=== PATIENT | male | born 1985 | race African-American/Black ===

== ENCOUNTER 2016-11-16 15:25 | Emergency (ER) | payer MEDICAID ==
--- NOTE | 2016-11-16 15:44 | ER Document Report ---
ED Psych Disorder / Suicide <KRYSTIN VALENTIN - Last Filed: 11/17/16 10:01> - General TRAVEL OUTSIDE OF THE [place] IN LAST 30 DAYS: No <JONATAN HEDRICK E - Last Filed: 11/17/16 10:43> - General Chief Complaint: Psych Problem Stated Complaint: SUICIDAL IDEATION Notes: The patient is a 31-year-old male, past medical history type I diabetes, depression, anxiety, presents with 4 days of hallucinations telling him to kill himself. In addition, he is having polyuria and polydipsia today and his BG was "HI". He says he took his Levemir last night, but ran out of his NovoLog yesterday. He has no plan to kill himself and has not taken any additional medications. He denies nausea, vomiting, abdominal pain, chest pain, shortness of breath, rash, dysuria, fevers or homicidal ideation. (JONATAN HEDRICK) - Related Data Allergies/Adverse Reactions: No Known Allergies Allergy (Verified 11/17/16 07:57) Past Medical History - General Information source: Patient - Social History Smoking Status: Current Every Day Smoker Cigarette use (# per day): Yes - 1 pack per day Frequency of alcohol use: None Drug Abuse: Prescription drugs - Percocet Family History: Reviewed & Not Pertinent, DM, Hypertension - Past Medical History Cardiac Medical History: Reports: Hx Hypertension Pulmonary Medical History: Reports: Hx Asthma - as child, Hx COPD Neurological Medical History: Reports: Hx Migraine Endocrine Medical History: Reports: Hx Diabetes Mellitus Type 1, Hx Diabetes Mellitus Type 2 Psychiatric Medical History: Reports: Hx Anxiety, Hx Depression - and anxiety Past Surgical History: Reports: Hx Appendectomy, Hx Oral Surgery - wisdom teeth - Immunizations Hx Diphtheria, Pertussis, Tetanus Vaccination: Yes Hx Pneumococcal Vaccination: 09/16/00 <JONATAN HEDRICK E - Last Filed: 11/17/16 10:43> Review of Systems <KRYSTIN VALENTIN - Last Filed: 11/17/16 10:01> <JONATAN HEDRICK - Last Filed: 11/17/16 10:43> - Review of Systems Notes: REVIEW OF SYSTEMS: CONSTITUTIONAL: -fevers, -chills EENT: -eye pain, -difficulty swallowing, -nasal congestion CARDIOVASCULAR: -chest pain, -syncope. RESPIRATORY: -cough, -SOB GASTROINTESTINAL: -abdominal pain, -nausea, -vomiting, -diarrhea GENITOURINARY: +polyuria, -dysuria, -hematuria MUSCULOSKELETAL: -back pain, -neck pain SKIN: -rash or skin lesions. HEMATOLOGIC: -easy bruising or bleeding. LYMPHATIC: -swollen, enlarged glands. NEUROLOGICAL: -altered mental status or loss of consciousness, -headache, - neurologic symptoms PSYCHIATRIC: -anxiety, -depression, +hallucinations, +SI, -HI ALL OTHER SYSTEMS REVIEWED AND NEGATIVE. (JONATAN HEDRICK) Physical Exam <KRYSTIN VALENTIN - Last Filed: 11/17/16 10:01> <JONATAN HEDRICK - Last Filed: 11/17/16 10:43> - Vital signs Vitals: Temp Pulse Resp BP Pulse Ox 98.9 F 111 H 16 146/78 H 100 11/16/16 15:45 11/16/16 15:45 11/16/16 15:45 11/16/16 15:45 11/16/16 15:45 - Notes Notes: PHYSICAL EXAMINATION: GENERAL: Well-appearing, well-nourished and in no acute distress. HEAD: Atraumatic, normocephalic. EYES: Pupils equal round and reactive to light, extraocular movements intact, sclera anicteric, conjunctiva are normal. ENT: nares patent, oropharynx clear without exudates. Moist mucous membranes. NECK: Normal range of motion, supple without lymphadenopathy LUNGS: Breath sounds clear to auscultation bilaterally and equal. No wheezes rales or rhonchi. HEART: Tachycardia, regular rhythm ABDOMEN: Soft, nontender, normoactive bowel sounds. No guarding, no rebound. No masses appreciated. EXTREMITIES: Normal range of motion, no pitting or edema. No cyanosis. NEUROLOGICAL: Cranial nerves grossly intact. Normal speech, normal gait. Normal sensory, motor, and reflex exams. PSYCH: Normal mood, normal affect. Suicidal thoughts, auditory hallucinations present SKIN: Warm, Dry, normal turgor, no rashes or lesions noted. (JONATAN HEDRICK) Course - Laboratory Result Diagrams: 11/16/16 16:30 11/16/16 18:13 <KRYSTIN VALENTIN - Last Filed: 11/17/16 10:01> - Laboratory Result Diagrams: 11/16/16 16:30 11/16/16 18:13 - EKG Interpretation by Me EKG shows normal: Sinus rhythm, [place], Intervals, QRS Complexes, ST-T Waves Rate: Tachycardia <JONATAN HEDRICK - Last Filed: 11/17/16 10:43> - Re-evaluation Re-evalutation: Patient with hyperglycemia without an anion gap or acidosis. Patient said his sliding scale NovoLog would be 20 units when his sugar is 410. Will also provide his nighttime Levemir dose. Patient is now medically cleared for psychiatric evaluation. (JONATAN HEDRICK) - Vital Signs Vital signs: Temp Pulse Resp BP Pulse Ox 98.9 F 104 H 18 152/90 H 99 11/16/16 15:45 11/17/16 08:49 11/17/16 08:49 11/17/16 08:49 11/17/16 08:49 - Laboratory Laboratory results interpreted by me: 11/16/16 11/16/16 11/16/16 15:35 16:30 18:13 WBC 11.1 H Hgb 11.6 L Hct 36.4 L MCV 75 L MCH 23.6 L MCHC 31.8 L RDW 15.9 H Seg Neutrophils % 90.2 H Lymphocytes % 6.7 L Monocytes % 2.6 L Absolute Neutrophils 10.0 H Sodium 134.4 L Creatinine 1.29 H Glucose 413 H* POC Glucose AST 16 L Total Protein 6.0 L Albumin 3.3 L Urine Protein 100 H Urine Glucose (UA) >=500 H Urine Ketones 20 H Urine Blood SMALL H Salicylates < 1.0 L Acetaminophen < 10 L 11/17/16 11/17/16 01:46 07:00 WBC Hgb Hct MCV MCH MCHC RDW Seg Neutrophils % Lymphocytes % Monocytes % Absolute Neutrophils Sodium Creatinine Glucose POC Glucose 371 H 346 H AST Total Protein Albumin Urine Protein Urine Glucose (UA) Urine Ketones Urine Blood Salicylates Acetaminophen Discharge <KRYSTIN VALENTIN - Last Filed: 11/17/16 10:01> <JONATAN HEDRICK - Last Filed: 11/17/16 10:43> - Discharge Clinical Impression: Hallucination, Hyperglycemia, Suicidal ideation Condition: Stable Disposition: HOME, SELF-CARE Additional Instructions: HYPERGLYCEMIA (HIGH BLOOD SUGAR): You have an abnormally high blood sugar. Not all high blood sugar requires long-term treatment. High blood sugar can be due to medications, , or the stress of illness. (These cases are "borderline diabetes.") If the doctor feels your high blood sugar might resolve with time, you may not require treatment now. It's very important that you follow through, to see if the blood sugar returns to normal levels. Uncontrolled high blood sugar leads to early heart disease, strokes, nerve damage, eye damage, and kidney damage. Call the physician if there is faintness, excess sleepiness, or very rapid breathing. DIABETES: You have an abnormally high blood sugar, suspicious for diabetes. Not all high blood sugar requires long-term treatment. High blood sugar can be due to medications, , or the stress of illness. (These cases are "borderline diabetes.") If the doctor feels your high blood sugar might get better with time, you may not require treatment now. It's very important that you follow through. Uncontrolled high blood sugar leads to early heart disease, strokes, nerve damage, eye damage, and kidney damage. All diabetics should follow a diet designed to control the blood sugar. Overweight diabetics should exercise regularly and lose weight. If this is not sufficient to control the blood sugar, pills or insulin shots are necessary. Younger people who develop diabetes almost always require insulin daily. Home testing of blood sugars or urine sugar is required. Diabetic teaching is available to help you figure insulin doses and monitor the blood sugar. Call the physician if there is faintness, excess sleepiness, or very rapid breathing. If hypoglycemia (LOW blood sugar) develops, symptoms are shakiness, weakness, sweating, and confusion. In this case, you should eat or drink something with sugar at once. INSULIN: Insulin is a natural hormone that lowers blood sugar. Normal blood sugar prevents complications of diabetes. For most diabetics, insulin is the best way to treat the illness. Be sure you know how to measure the insulin correctly. Insulin is measured in "units." There are three types of insulin: N (NPH or long acting), R (regular or short acting), and L (Lente or very long acting). Be sure you are using the right amount of each type. Insulin must be injected into the fat. You can use the abdomen, upper arms , and thighs. Select a different injection site every time. Wipe the site with alcohol before injecting. When first starting insulin, some adjusting of the insulin dose is necessary. Keep a record of each insulin dose and time of injection, and of the blood sugar and the time you test it. Sometimes insulin can make the blood sugar too low. If you become dizzy, sweaty, shaky, or confused, you may be having a hypoglycemic episode. Immediately use juice or some other sweet food. Call the doctor if the symptoms don't go away. I have provided you with a prescription for your NovoLog flexpen. FOLLOW-UP CARE: If you have been referred to a physician for follow-up care, call the physician s office for an appointment as you were instructed or within the next two days. If you experience worsening or a significant change in your symptoms, notify the physician immediately or return to the Emergency Department at any time for re-evaluation. You should follow-up with your primary care provider, Dr. Salguero, Saturday morning in his office. DEPRESSION: Your evaluation reveals that you have mental depression. While symptoms may be vague, they often include disturbance of sleep, fatigue, loss of appetite , and general loss of interest in life. While depression may be a side effect of drugs, or a reaction to a major change in your life, many cases have no known cause. If depression is acute, and related to a major loss in your life, you can expect it to clear completely with time. If you have been depressed a long time , are prone to repeated bouts of depression or low mood, or have been thinking of suicide, get help. Depression can be treated with anti-depressant medication and counselling. Long-term depression will often take a few weeks to clear, even with appropriate medication. Follow-up care is important. SUICIDAL IDEATION: Suicidal ideation is a common medical term for thoughts about suicide, which may be as detailed as a formulated plan, without the suicidal act itself. Although most people who undergo suicidal ideation do not commit suicide, some go on to make suicide attempts. The range of suicidal ideation varies greatly from fleeting to detailed planning, role playing, and unsuccessful attempts. While thoughts about suicide are common, most people do not carry out serious actions to commit suicide. Based upon your evaluation and discussion with you, we do not believe you are currently at risk to act upon your thoughts of suicide. You have agreed to return to the Emergency Department, at any time , if you feel inclined to act upon your suicidal thoughts. FOLLOW-UP CARE: If you have been referred to a physician for follow-up care, call the physician s office for an appointment as you were instructed or within the next two days. If you experience worsening or a significant change in your symptoms, notify the physician immediately or return to the Emergency Department at any time for re-evaluation. You have been evaluated by our mental health personnel and they feel that she can be discharged and followed up at your mental health providers office at [facility] Saturday morning. Prescriptions: Insulin Aspart [Novolog Flexpen] 10 unit SUBCUT .SLD SCALE #1 pen Referrals: MITCHELL SALGUERO MD [Primary Care Provider] - 11/19/16 [facility] [Provider Group] - 11/19/16
[2016-11-16] MEDS ORDERED: NORMAL SALINE 1000 ML 1,000 ML IV PRN (15:45)
[2016-11-16 17:04] LABS: ABSOLUTE BASOPHILS # (AUTO) 0.1 10^3/uL (0.0-0.2); ABSOLUTE LYMPHOCYTES (AUTO) 0.7 10^3/uL (0.5-4.7); ABSOLUTE MONOCYTES (AUTO) 0.3 10^3/uL (0.1-1.4); BASOPHILS % (AUTO) 0.5 % (0-2); HEMATOCRIT 36.4 % (37.9-51.0); HEMOGLOBIN 11.6 g/dL (13.5-17.0); HGB HCT DIFFERENCE -1.6; LYMPHOCYTES % (AUTO) 6.7 % (13-45); MEAN CORPUSCULAR HEMOGLOBIN 23.6 pg (27.0-33.4); MEAN CORPUSCULAR HGB CONC 31.8 g/dL (32.0-36.0); MEAN CORPUSCULAR VOLUME 75 fl (80-97); MONOCYTES % (AUTO) 2.6 % (3-13); RED BLOOD COUNT 4.89 10^6/uL (4.35-5.55); RED CELL DISTRIBUTION WIDTH 15.9 % (11.5-14.0); SEGMENTED NEUTROPHILS % (AUTO) 90.2 % (42-78); WHITE BLOOD COUNT 11.1 10^3/uL (4.0-10.5)
[2016-11-16 17:09] LABS: APPEARANCE,URINE CLEAR; BILIRUBIN,URINE NEGATIVE (NEGATIVE); GLUCOSE, URINE >=500 mg/dL (NEGATIVE); KETONES,URINE 20 mg/dL (NEGATIVE); LEUKOCYTE ESTERASE,URINE NEGATIVE (NEGATIVE); NITRITE,URINE NEGATIVE (NEGATIVE); PROTEIN,URINE 100 mg/dL (NEGATIVE); UROBILINOGEN,URINE NEGATIVE mg/dL (<2.0)
[2016-11-16 17:27] LABS: URINE BARBITURATES SCREEN NEGATIVE; URINE METHADONE SCREEN NEGATIVE; URINE OPIATES LOW NEGATIVE; URINE PHENCYCLIDINE SCREEN NEGATIVE
[2016-11-16 18:29] LABS: VENOUS BLOOD BASE EXCESS -1.7 mmol/L; VENOUS BLOOD HCO3 23.7 mmol/L (20-32); VENOUS BLOOD PH 7.36 (7.30-7.42)
[2016-11-16 18:43] LABS: ALANINE AMINOTRANSFERASE 27 U/L (21-72); ALBUMIN 3.3 g/dL (3.5-5.0); ALKALINE PHOSPHATASE 84 U/L (38-126); ANION GAP 11 (5-19); ASPARTATE AMINO TRANSFERASE 16 U/L (17-59); BILIRUBIN,TOTAL 0.5 mg/dL (0.2-1.3); BLOOD UREA NITROGEN 16 mg/dL (7-20); CALCIUM 9.1 mg/dL (8.4-10.2); CARBON DIOXIDE 24 mmol/L (22-30); CHLORIDE 99 mmol/L (98-107); CREATININE RESULT 1.29 mg/dL (0.52-1.25); POTASSIUM 4.5 mmol/L (3.6-5.0); SODIUM 134.4 mmol/L (137-145)
[2016-11-16 18:48] LABS: ALCOHOL < 10 mg/dL (NONE DETECTED)
[2016-11-16 18:54] LABS: GLUCOSE 413 mg/dL (75-110)
--- NOTE | 2016-11-16 18:55 | EKG REPORT ---
SEVERITY:- ABNORMAL ECG - SINUS TACHYCARDIA PROBABLE LEFT ATRIAL ABNORMALITY BORDERLINE INFERIOR Q WAVES BORDERLINE PROLONGED QT INTERVAL : Confirmed by: Brayden Silverio MD 16-Nov-2016 18:54:09
[2016-11-16] MEDS ORDERED: INSULIN LISPRO 100 UNIT/ML 3 ML VIAL SUBCUT ONE (19:01)
[2016-11-16] MEDS ORDERED: INSULIN DETEMIR 100 UNIT/ML 3 ML PEN SUBCUT SCH (22:00)
[2016-11-17] MEDS ORDERED: ACETAMINOPHEN 325 MG TABLET PO ONE (03:36)
[2016-11-17 08:50] VITALS: BP 152/90
[2016-11-17] MEDS ORDERED: ACETAMINOPHEN 325 MG TABLET PO PRN (09:37)
--- NOTE | 2016-11-17 09:54 | ER Document Report ---
Doctor's Note Notes: 11/17/16 09:53 Rounds: Chart reviewed and patient interviewed. Patient says he's been having some thoughts of harming himself. Vital signs are all normal. Lab studies show a white count of 11,100 with 90% segs neutrophils. Blood sugars been running in the 3 and 400s. Patient says that he is out of his NovoLog for a couple of days which she is supposed to take 10 mg before meals and as needed by sliding scale. He has his Levemir for his nighttime insulin dose. Vital signs are all normal. Patient appears to be medically stable for transfer or discharge. Bladimir Churchill M.D.
[2016-11-17] MEDS ORDERED: INSULIN LISPRO 100 UNIT/ML 3 ML VIAL SUBCUT SCH (11:00)
--- NOTE | 2016-11-17 12:03 | PSYCHOLOGICAL NOTE ---
Psych Note - Psych Note Psych Note: The patient is a 31-year-old male, past medical history type I diabetes, depression, anxiety, presents with 4 days of hallucinations telling him to kill himself. At this time patient will possibly be admitted for medical concerns, evaluation will occur once medical conditions are addressed.
--- NOTE | 2016-11-17 12:16 | PSYCHOLOGICAL NOTE ---
Psych Note - Psych Note Psych Note: The patient is a 31-year-old male, past medical history type I diabetes, depression, anxiety, presents with 4 days of hallucinations telling him to kill himself. Patient states that he is not feeling good stating he has difficulty breathing, thinks that sugar is high, his legs and feet her and has a headache. When asked how patient is feeling with his emotions he stated that he is depressed and has anxiety. Patient states he's seen at [facility]. He disclosed that when he has anxiety he can't breathe and is sad when he is depressed; he identified that he's been feeling like this for a couple days now. He continued to state that he's been hearing voices to "hurt myself" and hears them "all the time," inside his head, and does not recognize the voice. He states this has been going on nonstop for the last few days. Patient states he needs medication. Patient is alert and orientated to person place time and circumstance. Mood is euthymic with congruent affect. Patient states he is not suicidal but hears voices telling him to kill himself. Patient denies homicidal ideation. Patient endorses auditory hallucinations; clinician notes description of auditory hallucinations is not congruent with known manifestation of auditory hallucinations. No delusions are noted. Thought processes logical organized and linear. Thought content is surrounding needing medication. Conversational speech was within normal rate tone and prosody. Eye contact was fair. Intellectual abilities appear to be within average range. Attention and concentration are good. Insight, judgment, impulse control are poor. 311(F32.9) unspecified depressive disorder per history provided by patient 300.00 (F41.9) unspecified anxiety disorder per history provided by patient Impression\\plan: Patient is psychiatrically cleared for discharge. Patient denies suicidal ideation however states he is hearing voices to kill himself. Clinician notes patient is not observed to be responding to internal stimuli, has no difficulties carrying on a conversation, and never is distracted or pausing during talking. Patient identifies hearing the voices "all the time" and is unable to identify the voice; this is not congruent with known in manifestations of auditory hallucinations. Patient requested medication on multiple times to staff and it was noted patient came in with 2 empty bottles of oxycodone. Patient was provided substance abuse resources. Patient is encouraged to follow-up with mental health provider [facility]. Dr. Waller was consulted on the care and management of this patient; tending physician is in agreement with recommendations and disposition.
== END 2016-11-17 11:21 | disposition home or self-care (01) ==
LOC: ER 15:25
DX: R45.851 Suicidal ideations (principal); E10.65 Type 1 diabetes mellitus with hyperglycemia; R44.0 Auditory hallucinations; R00.0 Tachycardia, unspecified; F17.210 Nicotine dependence, cigarettes, uncomplicated; I10 Essential (primary) hypertension; J44.9 Chronic obstructive pulmonary disease, unspecified; R51 Headache; F32.9 Major depressive disorder, single episode, unspecified; F41.9 Anxiety disorder, unspecified; Z79.4 Long term (current) use of insulin
CPT/HCPCS: 93005; 99285; 96360; 96361; 36415; 82962; 80307 ×4; 85025; 80053; 81001; 82803; 93010; J3490; J1815 ×2; J7030

== ENCOUNTER 2016-11-18 10:09 | Inpatient (IN) | payer MEDICAID ==
[2016-11-18] MEDS ORDERED: ONDANSETRON HCL INJ/PF 4 MG/2 ML SDV IV ONE (10:12)
--- NOTE | 2016-11-18 10:18 | ER Document Report ---
ED General - General Stated Complaint: BLOOD SUGAR ISSUES Mode of Arrival: Ambulatory Information source: Patient Notes: 31-year-old diabetic male on NovoLog and Levemir her last appointment last night and took 20 of NovoLog prior to arrival presents with high blood sugar. Is noted that the patient was here past 2 days for suicidal ideation, blood sugars were noted to be in the 3 to 400s. Patient admits nausea vomiting TRAVEL OUTSIDE OF THE [place] IN LAST 30 DAYS: No - HPI Onset: Yesterday Onset/Duration: Persistent Quality of pain: Achy Severity: Mild Pain Level: 1 Associated symptoms: Nausea, Vomiting Exacerbated by: Denies Relieved by: Denies Similar symptoms previously: Yes Recently seen / treated by doctor: Yes - Related Data Allergies/Adverse Reactions: No Known Allergies Allergy (Verified 11/17/16 07:57) Past Medical History - Social History Smoking Status: Never Smoker Cigarette use (# per day): No Chew tobacco use (# tins/day): No Smoking Education Provided: No Family History: Reviewed & Not Pertinent, DM, Hypertension - Past Medical History Cardiac Medical History: Reports: Hx Hypertension Pulmonary Medical History: Reports: Hx Asthma - as child, Hx COPD Neurological Medical History: Reports: Hx Migraine Endocrine Medical History: Reports: Hx Diabetes Mellitus Type 1, Hx Diabetes Mellitus Type 2 Renal/ Medical History: Denies: Hx Peritoneal Dialysis Psychiatric Medical History: Reports: Hx Anxiety, Hx Depression - and anxiety Past Surgical History: Reports: Hx Appendectomy, Hx Oral Surgery - wisdom teeth - Immunizations Hx Diphtheria, Pertussis, Tetanus Vaccination: Yes Hx Pneumococcal Vaccination: 09/16/00 Review of Systems - Review of Systems Notes: PHYSICAL EXAMINATION: GENERAL: Well-appearing, well-nourished and in no acute distress. HEAD: Atraumatic, normocephalic. EYES: Pupils equal round and reactive to light, extraocular movements intact, sclera anicteric, conjunctiva are normal. ENT: Nares patent, oropharynx clear without exudates. Moist mucous membranes. NECK: Normal range of motion, supple without lymphadenopathy LUNGS: Breath sounds clear to auscultation bilaterally and equal. No wheezes rales or rhonchi. HEART: Tachycardic ABDOMEN: Soft, nontender, nondistended abdomen. No guarding, no rebound. No masses appreciated. Musculoskeletal: Normal range of motion, no pitting or edema. No cyanosis. NEUROLOGICAL: Cranial nerves grossly intact. Normal speech, normal gait. Normal sensory, motor exams PSYCH: Normal mood, normal affect. SKIN: Warm, Dry, normal turgor, no rashes or lesions noted. Physical Exam - Vital signs Vitals: Resp BP Pulse Ox 18 170/97 H 99 11/18/16 10:13 11/18/16 10:13 11/18/16 10:13 Course - Re-evaluation Re-evalutation: 11/18/16 10:45 Patient last in DKA in August, lab work pending patient will be given IV fluids nausea control - Vital Signs Vital signs: Temp Pulse Resp BP Pulse Ox 98.8 F 20 170/97 H 98 11/18/16 10:37 11/18/16 10:14 11/18/16 10:13 11/18/16 10:14 - Laboratory Result Diagrams: 11/18/16 10:15 11/18/16 10:15 Laboratory results interpreted by me: 11/18/16 11/18/16 11/18/16 10:15 10:15 10:34 WBC 12.1 H Hgb 11.1 L Hct 35.5 L MCV 76 L MCH 23.8 L MCHC 31.2 L RDW 15.7 H Seg Neutrophils % 90.6 H Lymphocytes % 5.3 L Monocytes % 2.9 L Absolute Neutrophils 11.0 H Sodium 132.3 L Potassium 5.8 H Chloride 93 L Carbon Dioxide 21 L BUN 26 H Creatinine 1.38 H Glucose 832 H* Urine Protein 100 H Urine Glucose (UA) >=500 H Urine Ketones 20 H Critical Care Note - Critical Care Note Total time excluding time spent on procedures (mins): 34 Comments: minutes of critical care time spent in direct contact evaluating and reevaluating the patient, treating symptoms, reviewing labs and studies and speaking with family and consultants excluding any procedures Discharge - Discharge Clinical Impression: ARF (acute renal failure) Qualifiers: Acute renal failure type: unspecified Qualified Code(s): N17.9 - Acute kidney failure, unspecified Diabetic ketoacidosis Qualifiers: Diabetes mellitus type: type 1 Diabetes mellitus complication detail: with coma Qualified Code(s): E10.11 - Type 1 diabetes mellitus with ketoacidosis with coma Condition: Fair Disposition: ADMITTED INPATIENT Admitting Provider: [facility] Unit Admitted: [facility]
[2016-11-18] MEDS: NORMAL SALINE 1000 ML 1,000 ML IV PRN ×2 (10:28→11:13)
[2016-11-18 10:33] LABS: ABSOLUTE BASOPHILS # (AUTO) 0.1 10^3/uL (0.0-0.2); ABSOLUTE LYMPHOCYTES (AUTO) 0.6 10^3/uL (0.5-4.7); ABSOLUTE MONOCYTES (AUTO) 0.3 10^3/uL (0.1-1.4); BASOPHILS % (AUTO) 1.1 % (0-2); EOSINOPHILS % (AUTO) 0.1 % (0-6); HEMATOCRIT 35.5 % (37.9-51.0); HEMOGLOBIN 11.1 g/dL (13.5-17.0); HGB HCT DIFFERENCE -2.2; LYMPHOCYTES % (AUTO) 5.3 % (13-45); MEAN CORPUSCULAR HEMOGLOBIN 23.8 pg (27.0-33.4); MEAN CORPUSCULAR HGB CONC 31.2 g/dL (32.0-36.0); MEAN CORPUSCULAR VOLUME 76 fl (80-97); MONOCYTES % (AUTO) 2.9 % (3-13); RED BLOOD COUNT 4.67 10^6/uL (4.35-5.55); RED CELL DISTRIBUTION WIDTH 15.7 % (11.5-14.0); SEGMENTED NEUTROPHILS % (AUTO) 90.6 % (42-78); VENOUS BLOOD BASE EXCESS -4.3 mmol/L; VENOUS BLOOD HCO3 20.3 mmol/L (20-32); VENOUS BLOOD PCO2 35.7 mmHg (35-63); VENOUS BLOOD PH 7.37 (7.30-7.42); WHITE BLOOD COUNT 12.1 10^3/uL (4.0-10.5)
[2016-11-18 10:52] LABS: ALANINE AMINOTRANSFERASE 29 U/L (21-72); ALBUMIN 3.7 g/dL (3.5-5.0); ALKALINE PHOSPHATASE 93 U/L (38-126); ANION GAP 18 (5-19); ASPARTATE AMINO TRANSFERASE 17 U/L (17-59); BILIRUBIN,TOTAL 0.6 mg/dL (0.2-1.3); BLOOD UREA NITROGEN 26 mg/dL (7-20); CALCIUM 9.6 mg/dL (8.4-10.2); CARBON DIOXIDE 21 mmol/L (22-30); CHLORIDE 93 mmol/L (98-107); CREATININE RESULT 1.38 mg/dL (0.52-1.25); POTASSIUM 5.8 mmol/L (3.6-5.0); SODIUM 132.3 mmol/L (137-145); TOTAL PROTEIN 6.3 g/dL (6.3-8.2)
[2016-11-18 10:58] LABS: APPEARANCE,URINE CLEAR; BILIRUBIN,URINE NEGATIVE (NEGATIVE); GLUCOSE, URINE >=500 mg/dL (NEGATIVE); KETONES,URINE 20 mg/dL (NEGATIVE); LEUKOCYTE ESTERASE,URINE NEGATIVE (NEGATIVE); NITRITE,URINE NEGATIVE (NEGATIVE); PROTEIN,URINE 100 mg/dL (NEGATIVE); URINE SPECIFIC GRAVITY 1.024; UROBILINOGEN,URINE NEGATIVE mg/dL (<2.0)
[2016-11-18] MEDS ORDERED: INSULIN REG, HUMAN 100 UNIT/ML 3 ML VIAL (PYX) IV ONE (11:05)
[2016-11-18 11:06] LABS: GLUCOSE 832 mg/dL (75-110)
[2016-11-18] MEDS ORDERED: NORMAL SALINE 1000 ML 1,000 ML IV PRN (11:06)
[2016-11-18] MEDS ORDERED: DEXTROSE 50%-WATER 25 GM/50 ML DISP.SYRIN IV PRN ×2 (13:31)
[2016-11-18] MEDS ORDERED: NORMAL SALINE 100 ML with INSULIN REGULAR, HUMAN 100 UNIT IV PRN ×2 (13:31)
[2016-11-18] MEDS ORDERED: DEXTROSE 40% GEL 15 GM TUBE PO PRN ×2 (13:31)
[2016-11-18] MEDS ORDERED: GLUCAGON,HUMAN RECOMB 1 MG INJ IM PRN (13:31)
[2016-11-18 14:00] LABS: ARTERIAL BLOOD BASE EXCESS -1.1 mmol/L; ARTERIAL BLOOD O2 SATURATION 97.7 % (94-98)
[2016-11-18 14:11] LABS: PROTHROMBIN TIME 12.6 SEC (11.4-15.4)
[2016-11-18 14:16] LABS: LIPASE 176.3 U/L (23-300); MAGNESIUM 1.9 mg/dL (1.6-2.3)
[2016-11-18 14:48] LABS: THYROID STIMULATING HORMONE 0.03 uIU/mL (0.47-4.68)
[2016-11-18 15:08] LABS: ANION GAP 13 (5-19); BLOOD UREA NITROGEN 20 mg/dL (7-20); CARBON DIOXIDE 22 mmol/L (22-30); CHLORIDE 105 mmol/L (98-107); CREATINE KINASE 81 U/L (55-170); CREATININE RESULT 1.17 mg/dL (0.52-1.25); POTASSIUM 4.9 mmol/L (3.6-5.0); SODIUM 139.6 mmol/L (137-145)
[2016-11-18 15:23] LABS: GLUCOSE 432 mg/dL (75-110)
[2016-11-18 15:28] LABS: CREATINE KINASE MB 0.43 ng/mL (<4.55)
[2016-11-18 15:32] LABS: TROPONIN I < 0.012 ng/mL
[2016-11-18] MEDS ORDERED: INSULIN REG, HUMAN 100 UNIT/ML 3 ML VIAL (PYX) ONE (15:32)
[2016-11-18 15:39] LABS: URINE BARBITURATES SCREEN NEGATIVE; URINE METHADONE SCREEN NEGATIVE; URINE OPIATES LOW NEGATIVE; URINE PHENCYCLIDINE SCREEN NEGATIVE
--- NOTE | 2016-11-18 16:13 | PDOC H&P ---
History of Present Illness Admission Date/PCP: 11/18/16 13:26 MITCHELL SALGUERO MD History of Present Illness: LENA SCHULZ is a 31 year old male, patient is extremely noncompliant diabetic care the last time he was in this hospital he presented in DKA on on that admission he left AMA, was in the emergency room twice this week for suicidal ideation, is not present with hyperglycemia uncontrolled the serum glucose was 800 is not in DKA, the pH was 7.39. Past Medical History Cardiac Medical History: Reports: Hypertension Pulmonary Medical History: Reports: Asthma - as child, Chronic Obstructive Pulmonary Disease (COPD) Neurological Medical History: Reports: Migraine Endocrine Medical History: Reports: Diabetes Mellitus Type 1 Psychiatric Medical History: Reports: Depression - and anxiety Hematology: Denies: Anemia Past Surgical History Past Surgical History: Reports: Appendectomy Social History Smoking Status: Never Smoker Frequency of Alcohol Use: Occasional Hx Recreational Drug Use: No Hx Prescription Drug Abuse: No Family History Family History: Reviewed & Not Pertinent, DM, Hypertension Parental Family History Reviewed: Yes Children Family History Reviewed: Yes Sibling(s) Family History Reviewed.: Yes Medication/Allergy Home Medications: Hydroxyzine Pamoate [Vistaril 50 mg Capsule] 50 mg PO Q8H 12/20/14 Oxycodone HCl 1 tab PO TID 09/03/15 Trazodone HCl 100 mg PO QHS PRN 09/03/15 Amlodipine Besylate 5 mg PO DAILY 09/10/16 Atenolol 25 mg PO DAILY 09/10/16 Gabapentin 300 mg PO TID 09/10/16 Insulin Aspart [Novolog Flexpen] 10 unit SUBCUT .SLD SCALE #1 pen 11/20/16 Insulin Detemir [Levemir Flextouch] 35 unit SQ QHS #3 11/20/16 Allergies/Adverse Reactions: No Known Allergies Allergy (Verified 11/17/16 07:57) Review of Systems Constitutional: PRESENT: fatigue Eyes: ABSENT: visual disturbances Ears: ABSENT: hearing changes Cardiovascular: ABSENT: chest pain, dyspnea on exertion, edema, orthropnea, palpitations Respiratory: ABSENT: cough, hemoptysis Gastrointestinal: ABSENT: abdominal pain, constipation, diarrhea, hematemesis, hematochezia, nausea, vomiting Genitourinary: ABSENT: dysuria, hematuria Musculoskeletal: ABSENT: joint swelling Integumentary: ABSENT: rash, wounds Neurological: ABSENT: abnormal gait, abnormal speech, confusion, dizziness, focal weakness, syncope Psychiatric: PRESENT: suicidal ideation Endocrine: PRESENT: polydipsia, polyuria Hematologic/Lymphatic: ABSENT: easy bleeding, easy bruising, lymphadenopathy Physical Exam Vital Signs: Temp Pulse Resp BP Pulse Ox 98.8 F 19 149/82 H 100 11/18/16 10:37 11/18/16 14:01 11/18/16 15:01 11/18/16 15:01 General appearance: PRESENT: no acute distress, well-developed, well-nourished Head exam: PRESENT: atraumatic, normocephalic Eye exam: PRESENT: conjunctiva pink, EOMI, PERRLA Ear exam: PRESENT: normal external ear exam Mouth exam: PRESENT: moist, tongue midline Neck exam: PRESENT: full ROM Respiratory exam: PRESENT: clear to auscultation juan ramon Cardiovascular exam: PRESENT: RRR, +S1, +S2 Vascular exam: PRESENT: normal capillary refill GI/Abdominal exam: PRESENT: normal bowel sounds, soft Rectal exam: PRESENT: deferred Neurological exam: PRESENT: alert, awake, oriented to person, oriented to place , oriented to time, oriented to situation, CN II-XII grossly intact Psychiatric exam: PRESENT: appropriate affect, normal mood Skin exam: PRESENT: dry, intact, warm Results Laboratory Results: 11/18/16 14:23 11/18/16 11/18/16 14:23 14:23 Sodium 139.6 Potassium 4.9 Chloride 105 Carbon Dioxide 22 Anion Gap 13 BUN 20 Creatinine 1.17 Est GFR ( Amer) > 60 Est GFR (Non-Af Amer) > 60 Glucose 432 H* Calcium 9.0 Ammonia < 8.7 L 11/18/16 11/18/16 14:23 14:23 Creatine Kinase 81 CK-MB (CK-2) 0.43 Troponin I < 0.012 Assessment & Plan - Diagnosis (1) Diabetes mellitus type 1 with hyperosmolarity Qualifiers: Diabetes mellitus complication detail: without coma Qualified Code(s ): E10.69 - Type 1 diabetes mellitus with other specified complication; E10.65 - Type 1 diabetes mellitus with hyperglycemia Is this a current diagnosis for this admission?: YesPlan: Patient is admitted to the hospital is not in DKA at this time
[2016-11-18] MEDS ORDERED: TRAZODONE HCL 50 MG TABLET PO PRN (19:11)
[2016-11-18] MEDS ORDERED: GABAPENTIN 300 MG CAPSULE PO ONE (20:30)
[2016-11-18] MEDS ORDERED: OXYCODONE HCL IR 5 MG TABLET PO ONE (20:30)
[2016-11-18 23:12] LABS: ANION GAP 8 (5-19); BLOOD UREA NITROGEN 18 mg/dL (7-20); CALCIUM 9.6 mg/dL (8.4-10.2); CARBON DIOXIDE 26 mmol/L (22-30); CHLORIDE 108 mmol/L (98-107); CREATININE RESULT 1.24 mg/dL (0.52-1.25); GLUCOSE 112 mg/dL (75-110); POTASSIUM 4.1 mmol/L (3.6-5.0); SODIUM 142.2 mmol/L (137-145)
[2016-11-18 23:20] LABS: CREATINE KINASE MB 0.41 ng/mL (<4.55)
[2016-11-18 23:25] LABS: TROPONIN I < 0.012 ng/mL
[2016-11-19 05:23] LABS: ABSOLUTE BASOPHILS # (AUTO) 0.1 10^3/uL (0.0-0.2); ABSOLUTE EOSINOPHILS # (AUTO) 0.2 10^3/uL (0.0-0.6); ABSOLUTE LYMPHOCYTES (AUTO) 2.8 10^3/uL (0.5-4.7); ABSOLUTE NEUT (AUTO) 8.1 10^3/uL (1.7-8.2); BASOPHILS % (AUTO) 0.5 % (0-2); EOSINOPHILS % (AUTO) 1.4 % (0-6); HEMATOCRIT 31.7 % (37.9-51.0); HEMOGLOBIN 9.9 g/dL (13.5-17.0); MEAN CORPUSCULAR HEMOGLOBIN 23.2 pg (27.0-33.4); MEAN CORPUSCULAR HGB CONC 31.2 g/dL (32.0-36.0); MEAN CORPUSCULAR VOLUME 74 fl (80-97); MONOCYTES % (AUTO) 7.9 % (3-13); RED BLOOD COUNT 4.27 10^6/uL (4.35-5.55); RED CELL DISTRIBUTION WIDTH 15.7 % (11.5-14.0); SEGMENTED NEUTROPHILS % (AUTO) 67.2 % (42-78); WHITE BLOOD COUNT 12.1 10^3/uL (4.0-10.5)
[2016-11-19 05:39] LABS: ALANINE AMINOTRANSFERASE 23 U/L (21-72); ALKALINE PHOSPHATASE 72 U/L (38-126); ANION GAP 9 (5-19); ASPARTATE AMINO TRANSFERASE 13 U/L (17-59); BILIRUBIN,TOTAL 0.4 mg/dL (0.2-1.3); BLOOD UREA NITROGEN 14 mg/dL (7-20); CARBON DIOXIDE 25 mmol/L (22-30); CHLORIDE 107 mmol/L (98-107); CHOLESTEROL 212.12 mg/dL (0-200); CREATINE KINASE 69 U/L (55-170); CREATININE RESULT 1.16 mg/dL (0.52-1.25); Direct HDL 41 mg/dL (>40); GLUCOSE 129 mg/dL (75-110); POTASSIUM 4.1 mmol/L (3.6-5.0); SODIUM 140.9 mmol/L (137-145); TOTAL PROTEIN 5.7 g/dL (6.3-8.2); TRIGLYCERIDES 123 mg/dL (<150)
[2016-11-19 05:50] LABS: CREATINE KINASE MB 0.39 ng/mL (<4.55); DIRECT LDL 104 mg/dL (<100)
[2016-11-19 05:51] LABS: TROPONIN I < 0.012 ng/mL
[2016-11-19] MEDS ORDERED: INSULIN REG, HUMAN 100 UNIT/ML 3 ML VIAL (PYX) ONE (06:16)
[2016-11-19] MEDS ORDERED: DEXTROSE 40% GEL 15 GM TUBE PO PRN ×2 (08:06)
[2016-11-19] MEDS ORDERED: INSULIN REG, HUMAN 100 UNIT/ML 3 ML VIAL (PYX) SUBCUT PRN (08:06)
[2016-11-19] MEDS ORDERED: DEXTROSE 50%-WATER 25 GM/50 ML DISP.SYRIN IV PRN ×2 (08:06)
[2016-11-19] MEDS ORDERED: GLUCAGON,HUMAN RECOMB 1 MG INJ IM PRN (08:06)
[2016-11-19] MEDS ORDERED: (PENDING PHARMACY ID) (Insulin Aspart [Novolog Flexpen] 10 UNIT) SUBCUT SCH (08:15)
[2016-11-19] MEDS: ENOXAPARIN SODIUM INJ 40 MG/0.4 ML DISP.SYRIN SUBCUT SCH (08:21)
[2016-11-19] MEDS ORDERED: MORPHINE SULFATE 10 MG/ML INJ IV PRN (08:30)
[2016-11-19] MEDS ORDERED: TRAZODONE HCL 50 MG TABLET PO PRN (08:47)
[2016-11-19] MEDS ORDERED: INSULIN DETEMIR 100 UNIT/ML 3 ML PEN SUBCUT ONE (09:00)
--- NOTE | 2016-11-19 09:13 | PDOC PROGRESS REPORT ---
Subjective Progress Note for:: 11/19/16 Subjective:: This is a 31-year-old male with a very noncompliance basically admitted because of elevated blood sugar not really in the DKA and patient was put on insulin drips and currently doing well. Patient still having ongoing pain problems and patient is currently see a pain management. Patient's denied any chest pain denied any shortness of the breath patient still complains some abdominal discomfort. Physical Exam Vital Signs: Temp Pulse Resp BP Pulse Ox 98.8 F 73 18 155/89 H 100 11/19/16 07:22 11/19/16 07:22 11/19/16 07:22 11/19/16 07:22 11/19/16 07:22 Intake & Output 11/18/16 11/19/16 11/20/16 06:59 06:59 06:59 Intake Total 1703 Output Total 0 Balance 1703 Weight 93.2 kg General appearance: PRESENT: no acute distress, well-developed, well-nourished Head exam: PRESENT: atraumatic, normocephalic Eye exam: PRESENT: conjunctiva pink, EOMI, PERRLA. ABSENT: scleral icterus Ear exam: PRESENT: normal external ear exam Mouth exam: PRESENT: moist, tongue midline Neck exam: PRESENT: full ROM. ABSENT: carotid bruit, JVD, lymphadenopathy, thyromegaly Respiratory exam: PRESENT: clear to auscultation juan ramon Cardiovascular exam: PRESENT: RRR. ABSENT: diastolic murmur, rubs, systolic murmur Pulses: PRESENT: normal dorsalis pedis pul, +2 pedal pulses bilateral Vascular exam: PRESENT: normal capillary refill GI/Abdominal exam: PRESENT: normal bowel sounds, soft. ABSENT: distended, guarding, mass, organolmegaly, rebound, tenderness Rectal exam: PRESENT: deferred Neurological exam: PRESENT: alert, awake, oriented to person, oriented to place , oriented to time, oriented to situation, CN II-XII grossly intact. ABSENT: motor sensory deficit Psychiatric exam: PRESENT: appropriate affect, normal mood. ABSENT: homicidal ideation, suicidal ideation Skin exam: PRESENT: dry, intact, warm. ABSENT: cyanosis, rash Results Laboratory Results: 11/19/16 04:40 11/19/16 04:40 11/18/16 11/18/16 11/18/16 14:23 14:23 17:25 WBC RBC Hgb Hct MCV MCH MCHC RDW Plt Count Seg Neutrophils % Lymphocytes % Monocytes % Eosinophils % Basophils % Absolute Neutrophils Absolute Lymphocytes Absolute Monocytes Absolute Eosinophils Absolute Basophils Sodium 139.6 Potassium 4.9 Chloride 105 Carbon Dioxide 22 Anion Gap 13 BUN 20 Creatinine 1.17 Est GFR ( Amer) > 60 Est GFR (Non-Af Amer) > 60 Glucose 432 H* 446 H* Calcium 9.0 Total Bilirubin AST ALT Alkaline Phosphatase Ammonia < 8.7 L Total Protein Albumin Triglycerides Cholesterol LDL Cholesterol Direct VLDL Cholesterol HDL Cholesterol 11/18/16 11/18/16 11/19/16 18:25 22:41 04:40 WBC RBC Hgb Hct MCV MCH MCHC RDW Plt Count Seg Neutrophils % Lymphocytes % Monocytes % Eosinophils % Basophils % Absolute Neutrophils Absolute Lymphocytes Absolute Monocytes Absolute Eosinophils Absolute Basophils Sodium Cancelled 142.2 140.9 Potassium Cancelled 4.1 4.1 Chloride Cancelled 108 H 107 Carbon Dioxide Cancelled 26 25 Anion Gap Cancelled 8 9 BUN Cancelled 18 14 Creatinine Cancelled 1.24 1.16 Est GFR ( Amer) Cancelled > 60 > 60 Est GFR (Non-Af Amer) Cancelled > 60 > 60 Glucose Cancelled 112 H 129 H Calcium Cancelled 9.6 9.0 Total Bilirubin 0.4 AST 13 L ALT 23 Alkaline Phosphatase 72 Ammonia Total Protein 5.7 L Albumin 3.0 L Triglycerides 123 Cholesterol 212.12 H LDL Cholesterol Direct 104 H VLDL Cholesterol 25.0 HDL Cholesterol 41 11/19/16 04:40 WBC 12.1 H RBC 4.27 L Hgb 9.9 L Hct 31.7 L MCV 74 L MCH 23.2 L MCHC 31.2 L RDW 15.7 H Plt Count 286 Seg Neutrophils % 67.2 Lymphocytes % 23.0 Monocytes % 7.9 Eosinophils % 1.4 Basophils % 0.5 Absolute Neutrophils 8.1 Absolute Lymphocytes 2.8 Absolute Monocytes 1.0 Absolute Eosinophils 0.2 Absolute Basophils 0.1 Sodium Potassium Chloride Carbon Dioxide Anion Gap BUN Creatinine Est GFR ( Amer) Est GFR (Non-Af Amer) Glucose Calcium Total Bilirubin AST ALT Alkaline Phosphatase Ammonia Total Protein Albumin Triglycerides Cholesterol LDL Cholesterol Direct VLDL Cholesterol HDL Cholesterol 11/18/16 11/18/16 11/18/16 14:23 14:23 22:41 Creatine Kinase 81 76 CK-MB (CK-2) 0.43 Troponin I < 0.012 11/18/16 11/19/16 11/19/16 22:41 04:40 04:40 Creatine Kinase 69 CK-MB (CK-2) 0.41 0.39 Troponin I < 0.012 < 0.012 Assessment & Plan - Diagnosis (1) Diabetic ketoacidosis Qualifiers: Diabetes mellitus type: type 1 Diabetes mellitus complication detail: with coma Qualified Code(s): E10.11 - Type 1 diabetes mellitus with ketoacidosis with coma Is this a current diagnosis for this admission?: YesPlan: We will DC the insulin drip and start the patient on the subcu insulin (2) Type 1 diabetes mellitus Qualifiers: Chronic kidney disease stage: unspecified stage Is this a current diagnosis for this admission?: YesPlan: Will continues the patient on the current medications patient is very noncompliance discussed with the patient's (3) Chronic kidney disease Qualifiers: Chronic kidney disease stage: stage 2 (mild) Qualified Code(s): N18.2 - Chronic kidney disease, stage 2 (mild) Is this a current diagnosis for this admission?: YesPlan: From long-standing diabetes and noncompliance (4) Chronic pain syndrome Is this a current diagnosis for this admission?: YesPlan: Patient is currently see a pain management (5) Depression Is this a current diagnosis for this admission?: YesPlan: We consulted a psychiatrist (6) Abdominal pain Qualifiers: Abdominal location: generalized Qualified Code(s): R10.84 - Generalized abdominal pain Is this a current diagnosis for this admission?: YesPlan: We will get the CT abdomen and pelvis without contrast - Time Time Spent with patient: 15-24 minutes Medications reviewed and adjusted accordingly: Yes Anticipated discharge: Home Within: Other - Inpatient Certification Post Hospital Care: D/C Finisher Plate Documentation - Plan Summary Plan Summary: We will DC the insulin drip and start the subcu insulin continues to IV fluid and discuss about the compliance of the medications
[2016-11-19] MEDS: ATENOLOL 50 MG TABLET PO SCH (09:21)
[2016-11-19] MEDS: HYDROCHLOROTHIAZIDE 25 MG TABLET PO SCH (09:21)
[2016-11-19] MEDS: AMLODIPINE BESYLATE 5 MG TABLET PO SCH (09:22)
[2016-11-19] MEDS: GABAPENTIN 300 MG CAPSULE PO SCH ×3 (09:22→17:35)
--- NOTE | 2016-11-19 09:23 | Physician Advisory Note ---
Physician Advisor ProgressNote .: Pursuant to the plan for [facility], I have reviewed the medical record for this patient. Physician Advisor Statement: Possible documentation opportunities if attending agrees: 1. "Acute Kidney Injury, now resolved" 2. "SIRS, present on admission, due to " 3. "chronic anemia" [Fe defic of chronic blood loss? nutritional Fe defic? ...] 4. "calculated osm initially = 320" 5. Please clarify the DM dx - currently it states "with coma", but otherwise, documentation does not indicate presence of coma. 6. type of depression - is it acute? major depression? ... (quality assurance auditor may try to assume this is chronic baseline depression that is present unless documented otherwise) As always, if concerned about any unstable VS or abnormal labs, please comment on them & note what doing about them, & please document each day the potential clinical problems you are concerned could occur if pt not kept in hospital for tx at this time. Discussion: 31yo male w/ chronic co-morbidities including DM-1, HTN, COPD, severe noncompliance, very recent suicidal ideation - presented 3/5AM to ED w/hyperglycemia. He had had had FSBSs in 300s-400s the last 2 days. He took 20 units Novolog before arrival, & still had a glc of 832 on arrival. (+) N/V, HR 105, WBC 12.1, Na 132.3, K 5.6, bicarb 21, BUN 26, Cr 1.38. pH 7.39 despite all this! A1C 8.9, U/A w/(+)pro/glc/ketones. Based on this info, pt's calculated serum Osm = 320 initially (nl = 285-295). ED gave 4L NS IVF wide open, Zofran IV, 15 units more Novolog. Attending ordered NS @120, Levemir 15units x1 at 8:45, insulin gtt, I/Os, daily wts. Status: Pt with hyperosm initially & even on re-check after initial tx, when glc 432 (- > calc'd osm 298 then). Electrolyte abnormalities improved this AM, but still recurrently tachycardic 'til midnight, and very wide shifts of glc levels in the past 24 hrs, from 832 down as low as 60 this AM requiring D-50 administration & discontinuation of insulin gtt. Needs better stabilization of glc levels for pt's health & safety. Pt also with depression which is likely contributing to poor self-care of DM, needs psych consult eval & tx to prevent quick worsening again outside of hospital after he has been stabilized medically. Attending ordering CT this AM to eval abd pain. This AM, attending has ordered psych consult for depression, Levemir 35units qhs , Humalog SI bid. Tx in inpatient hospital setting medically reasonable & necessary to protect pt' s health, safety, & medical condition. Appropriate for Inpt status. Thanks for your help with documentation accuracy/specificity improvement! Buffy Simmons MD [facility] Physician Advisor, Fellow of Hospital Medicine
[2016-11-19] MEDS: NORMAL SALINE 1000 ML 1,000 ML IV PRN (09:47)
[2016-11-19 09:56] LABS: ANION GAP 8 (5-19); BLOOD UREA NITROGEN 12 mg/dL (7-20); CALCIUM 9.1 mg/dL (8.4-10.2); CARBON DIOXIDE 27 mmol/L (22-30); CHLORIDE 104 mmol/L (98-107); CREATININE RESULT 1.05 mg/dL (0.52-1.25); GLUCOSE 213 mg/dL (75-110); POTASSIUM 4.3 mmol/L (3.6-5.0); SODIUM 138.9 mmol/L (137-145)
[2016-11-19] MEDS ORDERED: GABAPENTIN 300 MG CAPSULE PO SCH (10:00)
[2016-11-19] MEDS ORDERED: (PENDING PHARMACY ID) (Oxycodone Hcl [Oxycodone Hcl] 1 TAB) PO SCH (10:00)
[2016-11-19] MEDS ORDERED: ATENOLOL 25 MG PO SCH (10:00)
[2016-11-19] MEDS ORDERED: OXYCODONE HCL IR 5 MG TABLET PO SCH (10:00)
[2016-11-19] MEDS ORDERED: AMLODIPINE BESYLATE 5 MG TABLET PO SCH (10:00)
[2016-11-19] MEDS ORDERED: OXYCODONE HCL IR 5 MG TABLET PO ONE (10:00)
[2016-11-19] MEDS: INSULIN LISPRO 100 UNIT/ML 3 ML VIAL SUBCUT PRN ×3 (10:37→21:12)
[2016-11-19] MEDS: OXYCODONE HCL IR 5 MG TABLET PO SCH ×2 (13:45→21:12)
[2016-11-19 13:50] LABS: ANION GAP 10 (5-19); BLOOD UREA NITROGEN 13 mg/dL (7-20); CALCIUM 8.8 mg/dL (8.4-10.2); CARBON DIOXIDE 25 mmol/L (22-30); CHLORIDE 101 mmol/L (98-107); GLUCOSE 276 mg/dL (75-110); POTASSIUM 4.2 mmol/L (3.6-5.0); SODIUM 136.2 mmol/L (137-145)
[2016-11-19] MEDS ORDERED: INSULIN LISPRO 100 UNIT/ML 3 ML VIAL SUBCUT SCH (16:00)
[2016-11-19] MEDS: INSULIN DETEMIR 100 UNIT/ML 3 ML PEN SUBCUT SCH (21:11)
[2016-11-19] MEDS ORDERED: INSULIN DETEMIR 100 UNIT/ML 3 ML PEN SUBCUT SCH (22:00)
[2016-11-20 05:32] LABS: ABSOLUTE EOSINOPHILS # (AUTO) 0.2 10^3/uL (0.0-0.6); ABSOLUTE MONOCYTES (AUTO) 0.6 10^3/uL (0.1-1.4); ABSOLUTE NEUT (AUTO) 5.1 10^3/uL (1.7-8.2); BASOPHILS % (AUTO) 0.2 % (0-2); HEMATOCRIT 35.1 % (37.9-51.0); HEMOGLOBIN 11.3 g/dL (13.5-17.0); HGB HCT DIFFERENCE -1.2; LYMPHOCYTES % (AUTO) 33.5 % (13-45); MEAN CORPUSCULAR HEMOGLOBIN 23.7 pg (27.0-33.4); MEAN CORPUSCULAR HGB CONC 32.1 g/dL (32.0-36.0); MEAN CORPUSCULAR VOLUME 74 fl (80-97); MONOCYTES % (AUTO) 6.9 % (3-13); RED BLOOD COUNT 4.75 10^6/uL (4.35-5.55); RED CELL DISTRIBUTION WIDTH 15.5 % (11.5-14.0); SEGMENTED NEUTROPHILS % (AUTO) 57.4 % (42-78); WHITE BLOOD COUNT 8.9 10^3/uL (4.0-10.5)
[2016-11-20 05:50] LABS: ALANINE AMINOTRANSFERASE 14 U/L (21-72); ALBUMIN 3.2 g/dL (3.5-5.0); ALKALINE PHOSPHATASE 69 U/L (38-126); ANION GAP 8 (5-19); ASPARTATE AMINO TRANSFERASE 25 U/L (17-59); BILIRUBIN,TOTAL 0.3 mg/dL (0.2-1.3); BLOOD UREA NITROGEN 10 mg/dL (7-20); CALCIUM 8.7 mg/dL (8.4-10.2); CARBON DIOXIDE 28 mmol/L (22-30); CHLORIDE 104 mmol/L (98-107); CREATININE RESULT 0.95 mg/dL (0.52-1.25); GLUCOSE 92 mg/dL (75-110); LIPASE 72.7 U/L (23-300); POTASSIUM 3.4 mmol/L (3.6-5.0); SODIUM 140.4 mmol/L (137-145); TOTAL PROTEIN 6.2 g/dL (6.3-8.2)
[2016-11-20] MEDS: NORMAL SALINE 1000 ML 1,000 ML IV PRN (05:53)
[2016-11-20] MEDS: OXYCODONE HCL IR 5 MG TABLET PO SCH ×3 (05:53→22:30)
[2016-11-20] MEDS: ENOXAPARIN SODIUM INJ 40 MG/0.4 ML DISP.SYRIN SUBCUT SCH (08:13)
[2016-11-20] MEDS: ATENOLOL 50 MG TABLET PO SCH (09:30)
[2016-11-20] MEDS: AMLODIPINE BESYLATE 5 MG TABLET PO SCH (09:30)
[2016-11-20] MEDS: HYDROCHLOROTHIAZIDE 25 MG TABLET PO SCH (09:30)
[2016-11-20] MEDS: GABAPENTIN 300 MG CAPSULE PO SCH ×3 (09:30→17:54)
[2016-11-20] MEDS: INSULIN LISPRO 100 UNIT/ML 3 ML VIAL SUBCUT PRN ×3 (12:34→22:49)
--- NOTE | 2016-11-20 13:55 | PDOC PROGRESS REPORT ---
Subjective Progress Note for:: 11/20/16 Subjective:: Patient is feeling much betterDenied any shortness of the breath and no abdominal pain. Patient's blood sugar is coming down. Physical Exam Vital Signs: Temp Pulse Resp BP Pulse Ox 99.0 F 79 20 141/90 H 99 11/20/16 12:00 11/20/16 12:00 11/20/16 12:00 11/20/16 12:00 11/20/16 12:00 Intake & Output 11/19/16 11/20/16 11/21/16 06:59 06:59 06:59 Intake Total 1703 5326 Output Total 0 Balance 1703 5326 Weight 93.2 kg 94 kg General appearance: PRESENT: no acute distress, well-developed, well-nourished Head exam: PRESENT: atraumatic, normocephalic Eye exam: PRESENT: conjunctiva pink, EOMI, PERRLA. ABSENT: scleral icterus Ear exam: PRESENT: normal external ear exam Mouth exam: PRESENT: moist, tongue midline Neck exam: PRESENT: full ROM. ABSENT: carotid bruit, JVD, lymphadenopathy, thyromegaly Respiratory exam: PRESENT: clear to auscultation juan ramon Cardiovascular exam: PRESENT: RRR. ABSENT: diastolic murmur, rubs, systolic murmur Pulses: PRESENT: normal dorsalis pedis pul, +2 pedal pulses bilateral Vascular exam: PRESENT: normal capillary refill GI/Abdominal exam: PRESENT: normal bowel sounds, soft. ABSENT: distended, guarding, mass, organolmegaly, rebound, tenderness Rectal exam: PRESENT: deferred Neurological exam: PRESENT: alert, awake, oriented to person, oriented to place , oriented to time, oriented to situation, CN II-XII grossly intact. ABSENT: motor sensory deficit Psychiatric exam: PRESENT: appropriate affect, normal mood. ABSENT: homicidal ideation, suicidal ideation Skin exam: PRESENT: dry, intact, warm. ABSENT: cyanosis, rash Results Laboratory Results: 11/20/16 04:46 11/20/16 04:46 11/19/16 11/20/16 11/20/16 12:45 04:46 04:46 WBC 8.9 RBC 4.75 Hgb 11.3 L Hct 35.1 L MCV 74 L MCH 23.7 L MCHC 32.1 RDW 15.5 H Plt Count 302 Seg Neutrophils % 57.4 Lymphocytes % 33.5 Monocytes % 6.9 Eosinophils % 2.0 Basophils % 0.2 Absolute Neutrophils 5.1 Absolute Lymphocytes 3.0 Absolute Monocytes 0.6 Absolute Eosinophils 0.2 Absolute Basophils 0.0 Sodium 136.2 L 140.4 Potassium 4.2 3.4 L Chloride 101 104 Carbon Dioxide 25 28 Anion Gap 10 8 BUN 13 10 Creatinine 1.10 0.95 Est GFR ( Amer) > 60 > 60 Est GFR (Non-Af Amer) > 60 > 60 Glucose 276 H 92 Calcium 8.8 8.7 Total Bilirubin 0.3 AST 25 ALT 14 L Alkaline Phosphatase 69 Total Protein 6.2 L Albumin 3.2 L Lipase 72.7 11/18/16 11/18/16 11/18/16 14:23 14:23 22:41 Creatine Kinase 81 76 CK-MB (CK-2) 0.43 Troponin I < 0.012 11/18/16 11/19/16 11/19/16 22:41 04:40 04:40 Creatine Kinase 69 CK-MB (CK-2) 0.41 0.39 Troponin I < 0.012 < 0.012 Impressions: Abdomen/Pelvis CT 11/19/16 00:00 IMPRESSION: No acute abnormality in the abdomen or pelvis. Assessment & Plan - Diagnosis (1) Diabetic ketoacidosis Qualifiers: Diabetes mellitus type: type 1 Diabetes mellitus complication detail: with coma Qualified Code(s): E10.11 - Type 1 diabetes mellitus with ketoacidosis with coma Is this a current diagnosis for this admission?: YesPlan: All resolved (2) Type 1 diabetes mellitus Qualifiers: Chronic kidney disease stage: unspecified stage Is this a current diagnosis for this admission?: YesPlan: Will continues the patient on the current medications patient is very noncompliance discussed with the patient's (3) Chronic kidney disease Qualifiers: Chronic kidney disease stage: stage 2 (mild) Qualified Code(s): N18.2 - Chronic kidney disease, stage 2 (mild) Is this a current diagnosis for this admission?: YesPlan: All resolved (4) Chronic pain syndrome Is this a current diagnosis for this admission?: YesPlan: Patient is currently see a pain management (5) Depression Is this a current diagnosis for this admission?: YesPlan: We consulted a psychiatrist (6) Abdominal pain Qualifiers: Abdominal location: generalized Qualified Code(s): R10.84 - Generalized abdominal pain Is this a current diagnosis for this admission?: YesPlan: All resolved - Time Time Spent with patient: 15-24 minutes Medications reviewed and adjusted accordingly: Yes Anticipated discharge: Home Within: within 24 hours - Inpatient Certification Medical Necessity: Need For IV Fluids Post Hospital Care: D/C Customs Verifier Documentation - Plan Summary Plan Summary: Replace the potassiums adjust the insulin and will wait for the psych evaluations before the discharge
[2016-11-20] MEDS ORDERED: POTASSIUM CHLORIDE 10 MEQ TABLET.SA PO ONE (15:00)
--- NOTE | 2016-11-20 17:00 | PSYCHOLOGICAL NOTE ---
Psych Note - Psych Note Psych Note: Patient is a 31 year old male who has been admitted to [facility] Hospital[facility] due to DKA. Patient was referred for consultation due to self reported depression. Note, patient was seen in the ER for his depressive symptoms and discharged 3/4; however, returned the following day in DKA. Patient today states he is not depressed at this time, and that he made those statements the other day. Patient denies thoughts of harming himself. Patient states when he presented to the ER, it was over the weekend and he had attempted to contact his provider, ISABELL. Patient states the message states to call a different hospital, which he did, and he was instructed to go to his nearest Emergency Room. Patient states he plans to contact his provider, ISABELL again upon discharge. Patient states he would prefer not to have the consult, as he no longer feels he needs it. Patient was provided a list of resources, and discussed the mobile crisis contacts should he feel he needs to talk through a crisis and his provider is unavailable. Patient did state mobile crisis would be helpful and states he was appreciative. Thank you kindly for this consultation request; however, at this time patient does not wish to engage. He was provided resources, which he appeared thankful. Note, patient was asked, and did state he was not having any thoughts of harming himself or anyone else.
[2016-11-20] MEDS: INSULIN DETEMIR 100 UNIT/ML 3 ML PEN SUBCUT SCH (22:49)
[2016-11-21] MEDS: OXYCODONE HCL IR 5 MG TABLET PO SCH ×2 (05:43→13:02)
[2016-11-21 06:21] LABS: ABSOLUTE EOSINOPHILS # (AUTO) 0.2 10^3/uL (0.0-0.6); ABSOLUTE LYMPHOCYTES (AUTO) 2.1 10^3/uL (0.5-4.7); ABSOLUTE MONOCYTES (AUTO) 0.6 10^3/uL (0.1-1.4); ABSOLUTE NEUT (AUTO) 5.6 10^3/uL (1.7-8.2); BASOPHILS % (AUTO) 0.3 % (0-2); EOSINOPHILS % (AUTO) 2.5 % (0-6); HEMATOCRIT 35.1 % (37.9-51.0); HEMOGLOBIN 11.4 g/dL (13.5-17.0); HGB HCT DIFFERENCE -0.9; LYMPHOCYTES % (AUTO) 24.8 % (13-45); MEAN CORPUSCULAR HGB CONC 32.6 g/dL (32.0-36.0); MEAN CORPUSCULAR VOLUME 74 fl (80-97); MONOCYTES % (AUTO) 6.5 % (3-13); RED BLOOD COUNT 4.77 10^6/uL (4.35-5.55); RED CELL DISTRIBUTION WIDTH 15.6 % (11.5-14.0); SEGMENTED NEUTROPHILS % (AUTO) 65.9 % (42-78); WHITE BLOOD COUNT 8.5 10^3/uL (4.0-10.5)
[2016-11-21 06:40] LABS: ALANINE AMINOTRANSFERASE 23 U/L (21-72); ALBUMIN 3.3 g/dL (3.5-5.0); ALKALINE PHOSPHATASE 77 U/L (38-126); ANION GAP 12 (5-19); ASPARTATE AMINO TRANSFERASE 14 U/L (17-59); BILIRUBIN,TOTAL 0.2 mg/dL (0.2-1.3); BLOOD UREA NITROGEN 13 mg/dL (7-20); CALCIUM 9.6 mg/dL (8.4-10.2); CARBON DIOXIDE 25 mmol/L (22-30); CHLORIDE 100 mmol/L (98-107); CREATININE RESULT 1.05 mg/dL (0.52-1.25); GLUCOSE 266 mg/dL (75-110); SODIUM 137.4 mmol/L (137-145); TOTAL PROTEIN 6.2 g/dL (6.3-8.2)
[2016-11-21] MEDS: INSULIN LISPRO 100 UNIT/ML 3 ML VIAL SUBCUT PRN ×2 (08:56→12:40)
[2016-11-21] MEDS: ATENOLOL 50 MG TABLET PO SCH (09:02)
[2016-11-21] MEDS: HYDROCHLOROTHIAZIDE 25 MG TABLET PO SCH (09:02)
[2016-11-21] MEDS: AMLODIPINE BESYLATE 5 MG TABLET PO SCH (09:02)
[2016-11-21] MEDS: GABAPENTIN 300 MG CAPSULE PO SCH ×2 (09:02→13:02)
--- NOTE | 2016-11-21 09:36 | EKG REPORT ---
SEVERITY:- OTHERWISE NORMAL ECG - SINUS TACHYCARDIA : Confirmed by: Zakiya Francis 21-Nov-2016 09:36:20
[2016-11-21 12:33] VITALS: BP 137/87
--- NOTE | 2016-11-21 12:50 | PDOC DISCHARGE SUMMARY ---
General - Admit/Disc Date/PCP Admission Date/Primary Care Provider: 11/18/16 13:26 MITCHELL SALGUERO MD Discharge Date: 11/21/16 - Discharge Diagnosis (1) Diabetic ketoacidosis Is this a current diagnosis for this admission?: YesSummary: Currently all resolved (2) Type 1 diabetes mellitus Is this a current diagnosis for this admission?: YesSummary: Continues to Levemir 30 units at night and the NovoLog 10 units before each meal discussed with the patient about diet control and the goal of the blood sugar is less than 180And a fasting blood sugar is 100 range (3) Chronic kidney disease Is this a current diagnosis for this admission?: YesSummary: Kidney function is all normal today (4) Chronic pain syndrome Is this a current diagnosis for this admission?: YesSummary: Follow with the pain management (5) Depression Is this a current diagnosis for this admission?: YesSummary: Psych evaluation stones and patient's currently see the psych for that (6) Abdominal pain Is this a current diagnosis for this admission?: YesSummary: All results and CT abdomen and pelvis was also negative to - Additional Information Resuscitation Status: Full Code Discharge Activity: Activity As Tolerated Home Medications: Hydroxyzine Pamoate [Vistaril 50 mg Capsule] 50 mg PO Q8H 12/20/14 Oxycodone HCl 1 tab PO TID 09/03/15 Trazodone HCl 100 mg PO QHS PRN 09/03/15 Amlodipine Besylate 5 mg PO DAILY 09/10/16 Atenolol 25 mg PO DAILY 09/10/16 Gabapentin 300 mg PO TID 09/10/16 Insulin Aspart [Novolog Flexpen] 10 unit SUBCUT .SLD SCALE #1 pen 11/20/16 Insulin Detemir [Levemir Flextouch] 35 unit SQ QHS #3 11/20/16 History of Present Illness History of Present Illness: LENA SCHULZ is a 31 year old male This is a 31-year-old male is with a significant noncompliance with the medications and the diet and a significant history of the depressions in a chronic pain problems came to the emergency department with the blood sugar was about 700 range not really in the DKA and patient was admitted for this hyperglycemia was started on IV fluid and IV insulin and switched to the subcu insulin. Hospital Course Hospital Course: The patient is admittedFor the hyperglycemia and DKA and patient was put on IV insulin and IV fluidIn patients responds well and patient's other medical problem was also stable to Patient is otherwise remained back to the normal patient's insulin was adjusted patient's p.o. intake is good and patient's move around in the hallway without any problems and a psych consult was also done and patient patient is pretty stable to go home and follow an outpatient in 1 week. Discussed with the patient about the insulin treatment and a diet and compliance in the check the sugar 4 times a day and to keep a record and will readjust the medications on a outpatients office visit in 1 week. Patient's continues to follow with the pain management Physical Exam Vital Signs: Temp Pulse Resp BP Pulse Ox 98.2 F 68 16 137/87 H 100 11/21/16 12:00 11/21/16 12:00 11/21/16 12:00 11/21/16 12:00 11/21/16 12:00 Intake & Output 11/20/16 11/21/16 11/22/16 06:59 06:59 06:59 Intake Total 5326 1670 650 Output Total 6 Balance 5326 1664 650 Weight 94 kg 94.7 kg General appearance: PRESENT: no acute distress, well-developed, well-nourished Head exam: PRESENT: atraumatic, normocephalic Eye exam: PRESENT: conjunctiva pink, EOMI, PERRLA. ABSENT: scleral icterus Ear exam: PRESENT: normal external ear exam Mouth exam: PRESENT: moist, tongue midline Neck exam: PRESENT: full ROM. ABSENT: carotid bruit, JVD, lymphadenopathy, thyromegaly Respiratory exam: PRESENT: clear to auscultation juan ramon Cardiovascular exam: PRESENT: RRR. ABSENT: diastolic murmur, rubs, systolic murmur Pulses: PRESENT: normal dorsalis pedis pul, +2 pedal pulses bilateral Vascular exam: PRESENT: normal capillary refill GI/Abdominal exam: PRESENT: normal bowel sounds, soft. ABSENT: distended, guarding, mass, organolmegaly, rebound, tenderness Rectal exam: PRESENT: deferred Neurological exam: PRESENT: alert, awake, oriented to person, oriented to place , oriented to time, oriented to situation, CN II-XII grossly intact. ABSENT: motor sensory deficit Psychiatric exam: PRESENT: appropriate affect, normal mood. ABSENT: homicidal ideation, suicidal ideation Skin exam: PRESENT: dry, intact, warm. ABSENT: cyanosis, rash Results Laboratory Results: 11/21/16 05:40 11/21/16 05:40 11/21/16 11/21/16 05:40 05:40 WBC 8.5 RBC 4.77 Hgb 11.4 L Hct 35.1 L MCV 74 L MCH 24.0 L MCHC 32.6 RDW 15.6 H Plt Count 289 Seg Neutrophils % 65.9 Lymphocytes % 24.8 Monocytes % 6.5 Eosinophils % 2.5 Basophils % 0.3 Absolute Neutrophils 5.6 Absolute Lymphocytes 2.1 Absolute Monocytes 0.6 Absolute Eosinophils 0.2 Absolute Basophils 0.0 Sodium 137.4 Potassium 4.0 Chloride 100 Carbon Dioxide 25 Anion Gap 12 BUN 13 Creatinine 1.05 Est GFR ( Amer) > 60 Est GFR (Non-Af Amer) > 60 Glucose 266 H Calcium 9.6 Total Bilirubin 0.2 AST 14 L ALT 23 Alkaline Phosphatase 77 Total Protein 6.2 L Albumin 3.3 L 11/18/16 11/18/16 11/18/16 14:23 14:23 22:41 Creatine Kinase 81 76 CK-MB (CK-2) 0.43 Troponin I < 0.012 11/18/16 11/19/16 11/19/16 22:41 04:40 04:40 Creatine Kinase 69 CK-MB (CK-2) 0.41 0.39 Troponin I < 0.012 < 0.012 Impressions: Abdomen/Pelvis CT 11/19/16 00:00 IMPRESSION: No acute abnormality in the abdomen or pelvis. Plan Time Spent: Greater than 30 Minutes - Discussed with the patient and the family about the patient's current conditions and very extensive discussions with the compliance of the medications and following a one-week in the office. Patient have all insulin prescriptions was given today and other medication is all up-to -date. Patient's hydrochlorothiazide was DC'd on the discharge and will reevaluate the patient's blood pressures next week
== END 2016-11-21 15:33 | disposition home or self-care (01) | DRG 639 ==
LOC: ER 10:09 → UNDOADMIN 11:54 → EH 11:54 → 4N 16:45
PROVIDERS: ADMIT Family Medicine; ATTEND Family Medicine
DX: E10.10 Type 1 diabetes mellitus with ketoacidosis without coma (principal); E10.22 Type 1 diabetes mellitus with diabetic chronic kidney disease; I12.9 Hypertensive chronic kidney disease with stage 1 through stage 4 chronic kidney disease, or unspecified chronic kidney disease; N18.2 Chronic kidney disease, stage 2 (mild); F32.9 Major depressive disorder, single episode, unspecified; R10.84 Generalized abdominal pain; J44.9 Chronic obstructive pulmonary disease, unspecified; F41.9 Anxiety disorder, unspecified; G89.4 Chronic pain syndrome; Z90.49 Acquired absence of other specified parts of digestive tract; Z91.19 Patient's noncompliance with other medical treatment and regimen; G43.909 Migraine, unspecified, not intractable, without status migrainosus; Z82.49 Family history of ischemic heart disease and other diseases of the circulatory system; Z83.3 Family history of diabetes mellitus; Z79.891 Long term (current) use of opiate analgesic; Z79.4 Long term (current) use of insulin; Z79.899 Other long term (current) drug therapy
CPT/HCPCS: 36415; 36600; 74176; 80048; 80053; 80061; 80076; 80307; 81001; 82140; 82150; 82550; 82553; 82803; 82947; 82962; 83036; 83690; 83735; 84100; 84439; 84443; 84484; 85025; 85610; 87040; 87086; 93005; 93010; 96374; 99291; J1650; J1815; J2405; J3490; J7030

== ENCOUNTER 2016-11-21 21:29 | Emergency (ER) | payer MEDICAID ==
[2016-11-21] MEDS ORDERED: NORMAL SALINE 1000 ML 1,000 ML IV ONE (22:29)
[2016-11-21 22:55] LABS: APPEARANCE,URINE CLEAR; BILIRUBIN,URINE NEGATIVE (NEGATIVE); GLUCOSE, URINE >=500 mg/dL (NEGATIVE); KETONES,URINE NEGATIVE (NEGATIVE); LEUKOCYTE ESTERASE,URINE NEGATIVE (NEGATIVE); NITRITE,URINE NEGATIVE (NEGATIVE); PROTEIN,URINE 30 mg/dL (NEGATIVE); UROBILINOGEN,URINE NEGATIVE mg/dL (<2.0)
[2016-11-21] MEDS ORDERED: INSULIN LISPRO 100 UNIT/ML 3 ML VIAL SUBCUT ONE (23:39)
[2016-11-22 00:25] LABS: ANION GAP 11 (5-19); BLOOD UREA NITROGEN 20 mg/dL (7-20); CALCIUM 9.8 mg/dL (8.4-10.2); CARBON DIOXIDE 27 mmol/L (22-30); CHLORIDE 90 mmol/L (98-107); CREATININE RESULT 1.27 mg/dL (0.52-1.25); POTASSIUM 4.8 mmol/L (3.6-5.0); SODIUM 127.9 mmol/L (137-145)
[2016-11-22] MEDS ORDERED: NORMAL SALINE 1000 ML 1,000 ML IV ONE (00:45)
[2016-11-22 00:46] LABS: GLUCOSE 936 mg/dL (75-110)
[2016-11-22] MEDS ORDERED: INSULIN LISPRO 100 UNIT/ML 3 ML VIAL SUBCUT ONE (00:48)
[2016-11-22] MEDS ORDERED: INSULIN REG, HUMAN 100 UNIT/ML 3 ML VIAL (PYX) IV ONE ×2 (00:53→03:06)
--- NOTE | 2016-11-22 01:15 | ER Document Report ---
ED General - General Chief Complaint: High Blood Sugar Stated Complaint: BLOOD SUGAR CONCERNS,VOMITING Notes: Patient is a 31-year-old male with past history of insulin-dependent type I diabetes was just discharged less than 12 hours ago from the hospital for DKA who presents with hyperglycemia polyuria and polydipsia. Patient states that he went home and ate spaghetti, took 20 units of NovoLog and checked his blood sugar when he began to feel thirsty. He states that when the glucometer read "high" he came back to the emergency department. He denies any vomiting, abdominal pain, chest pain or shortness of breath. He denies taking any new medication. He denies eating anything other than spaghetti. He has not noted that anything is improved worsen his symptoms. States he's had similar symptoms in the past and has had high blood sugar. TRAVEL OUTSIDE OF THE [place] IN LAST 30 DAYS: No - Related Data Allergies/Adverse Reactions: No Known Allergies Allergy (Verified 11/21/16 22:36) Past Medical History - General Information source: Patient - Social History Smoking Status: Current Every Day Smoker Chew tobacco use (# tins/day): No Frequency of alcohol use: None Drug Abuse: None Lives with: Spouse/Significant other Family History: Reviewed & Not Pertinent, DM, Hypertension Patient has suicidal ideation: No Patient has homicidal ideation: No - Past Medical History Cardiac Medical History: Reports: Hx Hypertension Pulmonary Medical History: Reports: Hx Asthma - as child, Hx COPD Neurological Medical History: Reports: Hx Migraine Endocrine Medical History: Reports: Hx Diabetes Mellitus Type 1, Hx Diabetes Mellitus Type 2 Renal/ Medical History: Denies: Hx Peritoneal Dialysis Psychiatric Medical History: Reports: Hx Anxiety, Hx Depression - and anxiety Past Surgical History: Reports: Hx Appendectomy, Hx Oral Surgery - wisdom teeth - Immunizations Hx Diphtheria, Pertussis, Tetanus Vaccination: Yes Hx Pneumococcal Vaccination: 09/16/00 Review of Systems - Review of Systems Notes: Constitutional: Negative for fever. HENT: Negative for sore throat. Eyes: Negative for visual changes. Cardiovascular: Negative for chest pain. Respiratory: Negative for shortness of breath. Gastrointestinal: Negative for abdominal pain, vomiting or diarrhea. Genitourinary: Negative for dysuria. Musculoskeletal: Negative for back pain. Skin: Negative for rash. Neurological: Negative for headaches, weakness or numbness. 10 point ROS negative except as marked above and in HPI. Physical Exam - Vital signs Vitals: Temp Pulse Resp BP Pulse Ox 97.9 F 93 18 151/99 H 99 11/21/16 21:39 11/21/16 21:39 11/21/16 21:39 11/21/16 21:39 11/21/16 21:39 Interpretation: Hypertensive Notes: PHYSICAL EXAMINATION: GENERAL: Well-appearing, well-nourished and in no acute distress. HEAD: Atraumatic, normocephalic. EYES: Pupils equal round and reactive to light, extraocular movements intact, sclera anicteric, conjunctiva are normal. ENT: nares patent, oropharynx clear without exudates. Moist mucous membranes. NECK: Normal range of motion, supple without lymphadenopathy LUNGS: Breath sounds clear to auscultation bilaterally and equal. No wheezes rales or rhonchi. HEART: Regular rate and rhythm without murmurs ABDOMEN: Soft, nontender, normoactive bowel sounds. No guarding, no rebound. No masses appreciated. EXTREMITIES: Normal range of motion, no pitting or edema. No cyanosis. NEUROLOGICAL: No focal neurological deficits. Moves all extremities spontaneously and on command. PSYCH: Normal mood, normal affect. SKIN: Warm, Dry, normal turgor, no rashes or lesions noted. Course - Re-evaluation Re-evalutation: 11/22/16 01:14 Presentation of hyperglycemia without evidence of diabetic ketoacidosis or hyperosmolar hyperglycemic state on laboratories. Patient well appearing, in no acute distress, vitals within normal limits. No focal infectious symptoms to warrant infectious workup at this time. Tolerating oral intake without difficulty. Insulin provided and blood sugars have returned to a more acceptable level. I have stressed the importance of close followup, proper management of diabetes, and strict return precautions. I also discussed this case with his primary care physician just had discharged the patient from the hospital less than 12 hours prior to his presentation to ensure that patient will have a more proximal follow-up given his apparently brittle diabetes. At this time will discharge with return precautions and follow-up recommendations. Verbal discharge instructions given a the bedside and opportunity for questions given. Medication warnings reviewed. Patient is in agreement with this plan and has verbalized understanding of return precautions and the need for primary care follow-up in the next 24-72 hours. - Vital Signs Vital signs: Temp Pulse Resp BP Pulse Ox 97.9 F 93 18 151/99 H 99 11/21/16 22:19 11/21/16 22:19 11/21/16 22:19 11/21/16 22:19 11/21/16 22:19 - Laboratory Result Diagrams: 11/21/16 22:45 Laboratory results interpreted by me: 11/21/16 11/21/16 11/22/16 22:30 22:45 03:05 Sodium 127.9 L Chloride 90 L Creatinine 1.27 H Glucose 936 H* POC Glucose 455 H* Urine Protein 30 H Urine Glucose (UA) >=500 H Discharge - Discharge Clinical Impression: Hyperglycemia Condition: Good Disposition: HOME, SELF-CARE Additional Instructions: You need to followup urgently with your primary care doctor as your blood sugars were dangerously high today. You did not have any evidence of a dangerous condition associated with these blood sugars at this time. However, it is very important that you get your blood sugars under control. Please take all of your medications exactly as directed. You should avoid foods that are high in carbohydrates and sugary foods. Losing weight will also help to better control your blood sugars. Please return to emergency department immediately if you develop weakness, persistent vomiting, confusion, or any other symptoms that are concerning to you.
[2016-11-22 01:16] LABS: VENOUS BLOOD BASE EXCESS 0.6 mmol/L; VENOUS BLOOD HCO3 26.4 mmol/L (20-32); VENOUS BLOOD PH 7.37 (7.30-7.42)
[2016-11-22 06:14] VITALS: BP 127/87
== END 2016-11-22 04:41 | disposition home or self-care (01) ==
LOC: ER 21:29
DX: F32.9 Major depressive disorder, single episode, unspecified (principal); E11.65 Type 2 diabetes mellitus with hyperglycemia; R45.851 Suicidal ideations; R44.0 Auditory hallucinations; Z79.4 Long term (current) use of insulin; I10 Essential (primary) hypertension; J44.9 Chronic obstructive pulmonary disease, unspecified; F17.200 Nicotine dependence, unspecified, uncomplicated
CPT/HCPCS: 99285; 96360; 96361; 36415; 82962; 80048; 81001; 82803; J1815; J7030

== ENCOUNTER 2016-11-22 11:33 | Emergency (ER) | payer MEDICAID ==
--- NOTE | 2016-11-22 11:41 | ER Document Report ---
ED Medical Screen (RME) - General Stated Complaint: PSYCH EVAL Notes: presents with mobile crisis suicidal ideations with intent of 8/10, without a plan. and homicidal ideations. Patient states that he does not feel safe by himself. Patient recently seen here for DKA and high blood sugar. Has been checking at home and been compliant with insulin. I have greeted and performed a rapid initial assessment of this patient. A comprehensive ED assessment and evaluation of the patient, analysis of test results and completion of the medical decision making process will be conducted by additional ED providers. TRAVEL OUTSIDE OF THE [place] IN LAST 30 DAYS: No - Related Data Allergies/Adverse Reactions: No Known Allergies Allergy (Verified 11/22/16 11:39) Past Medical History - Social History Family history: Reviewed & Not Pertinent - Past Medical History Cardiac Medical History: Reports: Hx Hypertension Pulmonary Medical History: Reports: Hx Asthma - as child, Hx COPD Neurological Medical History: Reports: Hx Migraine Endocrine Medical History: Reports: Hx Diabetes Mellitus Type 1, Hx Diabetes Mellitus Type 2 Renal/ Medical History: Denies: Hx Peritoneal Dialysis Psychiatric Medical History: Reports: Hx Anxiety, Hx Depression - and anxiety Past Surgical History: Reports: Hx Appendectomy, Hx Oral Surgery - wisdom teeth - Immunizations Hx Diphtheria, Pertussis, Tetanus Vaccination: Yes Physical Exam - Vital signs Vitals: Temp Pulse Resp BP Pulse Ox 98.2 F 86 18 145/87 H 97 11/22/16 11:36 11/22/16 11:36 11/22/16 11:36 11/22/16 11:36 11/22/16 11:36 Course - Vital Signs Vital signs: Temp Pulse Resp BP Pulse Ox 98.2 F 86 18 145/87 H 97 11/22/16 11:36 11/22/16 11:36 11/22/16 11:36 11/22/16 11:36 11/22/16 11:36
[2016-11-22 12:03] LABS: ABSOLUTE BASOPHILS # (AUTO) 0.1 10^3/uL (0.0-0.2); ABSOLUTE LYMPHOCYTES (AUTO) 1.2 10^3/uL (0.5-4.7); ABSOLUTE MONOCYTES (AUTO) 0.5 10^3/uL (0.1-1.4); ABSOLUTE NEUT (AUTO) 8.5 10^3/uL (1.7-8.2); BASOPHILS % (AUTO) 1.3 % (0-2); EOSINOPHILS % (AUTO) 0.5 % (0-6); HEMOGLOBIN 11.1 g/dL (13.5-17.0); HGB HCT DIFFERENCE -1.7; LYMPHOCYTES % (AUTO) 11.2 % (13-45); MEAN CORPUSCULAR HEMOGLOBIN 23.6 pg (27.0-33.4); MEAN CORPUSCULAR HGB CONC 31.6 g/dL (32.0-36.0); MEAN CORPUSCULAR VOLUME 75 fl (80-97); MONOCYTES % (AUTO) 4.5 % (3-13); RED BLOOD COUNT 4.68 10^6/uL (4.35-5.55); RED CELL DISTRIBUTION WIDTH 15.5 % (11.5-14.0); SEGMENTED NEUTROPHILS % (AUTO) 82.5 % (42-78); WHITE BLOOD COUNT 10.3 10^3/uL (4.0-10.5)
[2016-11-22 12:09] LABS: APPEARANCE,URINE CLEAR; BILIRUBIN,URINE NEGATIVE (NEGATIVE); GLUCOSE, URINE >=500 mg/dL (NEGATIVE); KETONES,URINE TRACE mg/dL (NEGATIVE); LEUKOCYTE ESTERASE,URINE NEGATIVE (NEGATIVE); NITRITE,URINE NEGATIVE (NEGATIVE); PROTEIN,URINE 100 mg/dL (NEGATIVE); URINE SPECIFIC GRAVITY 1.022; UROBILINOGEN,URINE NEGATIVE mg/dL (<2.0)
[2016-11-22 12:26] LABS: ALANINE AMINOTRANSFERASE 27 U/L (21-72); ALBUMIN 3.6 g/dL (3.5-5.0); ALKALINE PHOSPHATASE 95 U/L (38-126); ANION GAP 12 (5-19); ASPARTATE AMINO TRANSFERASE 13 U/L (17-59); BILIRUBIN,TOTAL 0.5 mg/dL (0.2-1.3); BLOOD UREA NITROGEN 19 mg/dL (7-20); CALCIUM 9.6 mg/dL (8.4-10.2); CARBON DIOXIDE 27 mmol/L (22-30); CHLORIDE 99 mmol/L (98-107); POTASSIUM 4.6 mmol/L (3.6-5.0); SODIUM 137.5 mmol/L (137-145); TOTAL PROTEIN 6.4 g/dL (6.3-8.2)
[2016-11-22 12:31] LABS: ALCOHOL < 10 mg/dL (NONE DETECTED)
[2016-11-22 12:33] LABS: URINE BARBITURATES SCREEN NEGATIVE; URINE METHADONE SCREEN NEGATIVE; URINE OPIATES LOW NEGATIVE; URINE PHENCYCLIDINE SCREEN NEGATIVE
[2016-11-22 12:39] LABS: GLUCOSE 540 mg/dL (75-110)
--- NOTE | 2016-11-22 13:10 | ER Document Report ---
ED General - General Mode of Arrival: Ambulatory Information source: Patient TRAVEL OUTSIDE OF THE [place] IN LAST 30 DAYS: No - HPI Patient complains to provider of: Suicidal Ideation Onset: This afternoon Associated symptoms: Other - see above <ZEE SALGUERO - Last Filed: 11/22/16 13:33> <SANGEETHA GOEL - Last Filed: 11/22/16 15:07> - General Chief Complaint: Suicidal Ideation Stated Complaint: PSYCH EVAL Notes: 31 year old male with history of insulin dependent diabetes presents to the ED complaining of suicidal ideation. According to [facility] records, patient was in the ED on 11/16/2016 complaining of hearing voices and suicidal ideation. Psych team consulted with the patient and concluded that he was fabricating these complaints. Patient was discharged on 11/17/2016. Patient returned on 2016 with complaints of hyperglycemia and hospitalized with DKA for 3 days. Patient was discharged on 11/21/2016, and came back a few hours later with a blood sugar of 936. Patient was treated and was discharged in the early hours of 11/22/2016 and returned via Mobile Crisis after being seen at Dr. Salguero's clinic complaining of suicidal ideation (blood sugar was [address] Salguero's clinic). When the patient arrived to the ED this afternoon his blood sugar was elevated back in the 500s. Patient reports he hasn't had insulin since 0600 this morning and claims to have had breakfast in the hospital cafeteria after being discharged this morning. (ZEE SALGUERO) - Related Data Allergies/Adverse Reactions: No Known Allergies Allergy (Verified 11/22/16 11:39) Past Medical History - General Information source: Patient - Social History Smoking Status: Current Every Day Smoker Chew tobacco use (# tins/day): No Frequency of alcohol use: None Drug Abuse: None Family History: Reviewed & Not Pertinent, DM, Hypertension Patient has suicidal ideation: Yes Patient has homicidal ideation: No - Past Medical History Cardiac Medical History: Reports: Hx Hypertension Pulmonary Medical History: Reports: Hx Asthma - as child, Hx COPD Neurological Medical History: Reports: Hx Migraine Endocrine Medical History: Reports: Hx Diabetes Mellitus Type 1, Hx Diabetes Mellitus Type 2 Renal/ Medical History: Denies: Hx Peritoneal Dialysis Psychiatric Medical History: Reports: Hx Anxiety, Hx Depression - and anxiety Past Surgical History: Reports: Hx Appendectomy, Hx Oral Surgery - wisdom teeth - Immunizations Hx Diphtheria, Pertussis, Tetanus Vaccination: Yes Hx Pneumococcal Vaccination: 09/16/00 <SALGUEROZEE - Last Filed: 11/22/16 13:33> Review of Systems - Review of Systems Constitutional: No symptoms reported EENT: No symptoms reported Cardiovascular: No symptoms reported Respiratory: No symptoms reported Gastrointestinal: No symptoms reported Genitourinary: No symptoms reported Male Genitourinary: No symptoms reported Musculoskeletal: No symptoms reported Skin: No symptoms reported Hematologic/Lymphatic: No symptoms reported Neurological/Psychological: See HPI, Suicidal ideation -: Yes All other systems reviewed and negative <ZEE SALGUERO - Last Filed: 11/22/16 13:33> Physical Exam - General General appearance: Alert In distress: None - HEENT Head: Normocephalic, Atraumatic Eyes: Normal Extraocular movements intact: Yes Pupils: PERRL - Respiratory Respiratory status: No respiratory distress - Cardiovascular Rhythm: Regular - Abdominal Inspection: Normal - Back Back: Normal - Extremities General upper extremity: Normal inspection, Normal ROM General lower extremity: Normal inspection, Normal ROM - Neurological Neuro grossly intact: Yes - Psychological Associated symptoms: Normal affect, Normal mood - Skin Skin Temperature: Warm Skin Moisture: Dry Skin Color: Normal <ZEE SALGUERO - Last Filed: 11/22/16 13:33> Course - Laboratory Result Diagrams: 11/22/16 11:45 11/22/16 11:45 <ZEE SALGUERO - Last Filed: 11/22/16 13:33> - Laboratory Result Diagrams: 11/22/16 11:45 11/22/16 11:45 - EKG Interpretation by [facility] EKG shows normal: Sinus rhythm, [place], Intervals, QRS Complexes, ST-T Waves Rate: Normal - 82 Rhythm: NSR <SANGEETHA GOEL - Last Filed: 11/22/16 15:07> - Re-evaluation Re-evalutation: 11/22/16 14:23 This 31-year-old male diabetic patient has been in this hospital everyday for the past 7 days. He came here on 11/16/2016 claiming to be suicidal and hearing voices and trying to get pain medication. Psychiatric consults felt that he was fabricating the hallucinations and instructions to commit suicide. He was discharged on 11/17/2016. He returned to the emergency room on 2016 with elevated blood sugars and was admitted to the hospital for 4 days. He was discharged on 11/21/2016. He returned to the emergency room that same evening with a blood sugar of 936. By this morning the blood sugar was down to 273 and he was discharged. Later in the morning he went to Dr. Salguero's office where his blood sugar was 99, and he complained of being suicidal. Mobile crisis was called and he was sent back to the emergency room. This afternoon his blood sugar is 540 and the patient states he cannot understand how that could happen. One and half hours later his Accu-Chek is 498. His serum CO2 is 27. He is not in DKA. He is asking for a meal. He will receive subcutaneous insulin and be discharged home. (SANGEETHA GOEL) - Vital Signs Vital signs: Temp Pulse Resp BP Pulse Ox 98.2 F 86 18 145/87 H 97 11/22/16 11:36 11/22/16 11:36 11/22/16 11:36 11/22/16 11:36 11/22/16 11:36 - Laboratory Laboratory results interpreted by me: 11/22/16 11/22/16 11/22/16 11:45 11:45 11:50 Hgb 11.1 L Hct 35.0 L MCV 75 L MCH 23.6 L MCHC 31.6 L RDW 15.5 H Seg Neutrophils % 82.5 H Lymphocytes % 11.2 L Absolute Neutrophils 8.5 H Glucose 540 H* POC Glucose AST 13 L Urine Protein 100 H Urine Glucose (UA) >=500 H Urine Ketones TRACE H Salicylates < 1.0 L Acetaminophen < 10 L 11/22/16 13:16 Hgb Hct MCV MCH MCHC RDW Seg Neutrophils % Lymphocytes % Absolute Neutrophils Glucose POC Glucose 498 H* AST Urine Protein Urine Glucose (UA) Urine Ketones Salicylates Acetaminophen Discharge <ZEE SALGUERO - Last Filed: 11/22/16 13:33> <SANGEETHA GOEL - Last Filed: 11/22/16 15:07> - Discharge Clinical Impression: Poorly controlled diabetes mellitus Depression Qualifiers: Depression Type: unspecified Qualified Code(s): F32.9 - Major depressive disorder, single episode, unspecified Condition: Stable Disposition: HOME, SELF-CARE Additional Instructions: Be sure to check your sugars and take your insulin according to the directions your primary care provider has given you. Follow-up with CBC and sees for management of your mental health problems. Follow-up with Dr. Salguero in the office for management of your diabetes. Referrals: MITCHELL SALGUERO MD [Primary Care Provider] - Follow up as needed Scribe Attestation: 11/22/16 15:07 I personally performed the services described in the documentation, reviewed and edited the documentation which was dictated to the scribe in my presence, and it accurately records my words and actions. (SANGEETHA GOEL) Scribe Documentation - Scribe Written by Matteo:: Matteo Hoover, 11/22/2016 1327 acting as scribe for :: Thomas <ZEE SALGUERO - Last Filed: 11/22/16 13:33>
--- NOTE | 2016-11-22 13:54 | PSYCHOLOGICAL NOTE ---
Psych Note - Psych Note Psych Note: Patient presents to [facility] ED with mobile crisis; suicidal ideations with intent of 8/, without a plan. and homicidal ideations. Patient states that he does not feel safe by himself. Patient states that he is here because of suicidal and homicidal ideation and hearing voices. Patient states that he hears them "all the time." He states that he hears random voices and has heard up to 3 at one time. He continued disclosed the voices are inside his head. Patient then changed statement stating that the voices "are on and off;" Patient states he does not hear them all the time. He continued to state this has never happened before, he has no reason to lie about this. Patient states that onset was approximately Saturday. Patient's , Zakia [phone], disclosed the patient has been "having suicidal thoughts, talking to himself, seeing things, hallucinations, and hearing voices telling him to harm himself and others."She states that he has been hearing voices for about 1 month and they are telling him to kill himself and others. She disclosed that it has happened in the pastbut seems to be getting worse. She states that last time it lasted about one week. She continued to disclose that he has had "low energy" for the last 3 weeks and confirmed that he was hearing the voices before the low energy. She continued to disclse that he has not wanted to bathe and the last time he did was 2 or 3 days ago. Clinician notes that patient has been in [facility] ED 11/16-11/17, 11/18-11/21,11/21-. She then stated that she is currently from her but has been trying to help him out. Patient is alert and orientated to person place time and circumstance. Mood is irritable with restricted affect. Patient states he is not suicidal but hears voices telling him to kill himself. Patient endorses homicidal ideation; stating the voices tell him to hurt others also. Patient endorses auditory hallucinations; clinician notes description of auditory hallucinations is not congruent with known manifestation of auditory hallucinations. No delusions are noted. Thought processes logical organized and linear. Thought content is surrounding needing in patient Conversational speech was within normal rate tone and prosody. Eye contact was fair. Intellectual abilities appear to be within average range. Attention and concentration are good. Insight, judgment , impulse control are poor. 311(F32.9) unspecified depressive disorder per history provided by patient 300.00 (F41.9) unspecified anxiety disorder per history provided by patient Impression\\plan: Patient is psychiatrically cleared for discharge. Patient denies suicidal ideation however states he is hearing voices to kill himself. Clinician notes patient is not observed to be responding to internal stimuli, has no difficulties carrying on a conversation, and is never distracted or pausing during talking. Patient identifies hearing the voices "all the time" but then changes his statement stating he hears them "on and off." Clinician notes that patient has been in [facility] ED 11/16-11/17, 11/18-11/21,11/21-11/22. Patient has repeatedly changed his story and collateral information also did not match. Patient is currently homeless and is noncomplient with his medications. Patient was seen by Behavioral Health Team on 11/20 at which time the patient stated he did not have depression and did not want to participate in the evaluation. Patient has demonstrated a pattern of behaviour that is congruent to attempting to achieve secondary gain possibly food and prison. The patient did not follow up with [facility] as requested on 11/16. The patient has disclosed concerns for mental health only when attempting to achieve his secondary gain. Patient was previously seen on Dr. Waller was consulted on the care and management of this patient; tending physician is in agreement with recommendations and disposition.
[2016-11-22] MEDS ORDERED: INSULIN REG, HUMAN 100 UNIT/ML 3 ML VIAL (PYX) SUBCUT ONE (14:22)
[2016-11-22 15:32] VITALS: BP 135/90
--- NOTE | 2016-11-22 20:04 | EKG REPORT ---
SEVERITY:- NORMAL ECG - SINUS RHYTHM : Confirmed by: Zakiya Francis 22-Nov-2016 20:03:52
== END 2016-11-22 15:33 | disposition home or self-care (01) ==
LOC: ER 11:33
DX: F32.9 Major depressive disorder, single episode, unspecified (principal); R45.851 Suicidal ideations; E11.9 Type 2 diabetes mellitus without complications; Z79.4 Long term (current) use of insulin; F17.210 Nicotine dependence, cigarettes, uncomplicated
CPT/HCPCS: 93005; 99285; 36415; 82962; 80307 ×4; 85025; 80053; 81001; 93010; J1815

== ENCOUNTER 2016-12-09 05:32 | Inpatient (IN) | payer MEDICAID, OTHER ==
[2016-12-09] MEDS ORDERED: NORMAL SALINE 1000 ML 1,000 ML IV ONE ×3 (05:49→06:22)
[2016-12-09] MEDS ORDERED: PANTOPRAZOLE SODIUM 40 MG VIAL IV ONE (06:21)
[2016-12-09] MEDS ORDERED: PANTOPRAZOLE SODIUM 40 MG VIAL IV PRN (06:22)
[2016-12-09 06:37] LABS: VENOUS BLOOD BASE EXCESS -3.3 mmol/L; VENOUS BLOOD HCO3 20.7 mmol/L (20-32); VENOUS BLOOD PCO2 34.1 mmHg (35-63); VENOUS BLOOD PH 7.4 (7.30-7.42)
[2016-12-09 06:48] LABS: HEMATOCRIT 38.9 % (37.9-51.0); HEMOGLOBIN 12.1 g/dL (13.5-17.0); HGB HCT DIFFERENCE -2.6; MEAN CORPUSCULAR HEMOGLOBIN 23.6 pg (27.0-33.4); MEAN CORPUSCULAR VOLUME 76 fl (80-97); RED BLOOD COUNT 5.12 10^6/uL (4.35-5.55); RED CELL DISTRIBUTION WIDTH 16.9 % (11.5-14.0); WHITE BLOOD COUNT 17.5 10^3/uL (4.0-10.5)
[2016-12-09 07:01] LABS: PARTIAL THROMBOPLASTIN TIME 31.8 SEC (23.5-35.8); PROTHROMBIN TIME 12.8 SEC (11.4-15.4)
[2016-12-09 07:03] LABS: ALANINE AMINOTRANSFERASE 25 U/L (21-72); ALBUMIN 3.9 g/dL (3.5-5.0); ALKALINE PHOSPHATASE 109 U/L (38-126); ASPARTATE AMINO TRANSFERASE 23 U/L (17-59); BILIRUBIN,DIRECT 0.3 mg/dL (0.0-0.4); BILIRUBIN,TOTAL 0.8 mg/dL (0.2-1.3); BLOOD UREA NITROGEN 19 mg/dL (7-20); CALCIUM 9.9 mg/dL (8.4-10.2); CARBON DIOXIDE 16 mmol/L (22-30); CHLORIDE 96 mmol/L (98-107); CHOLESTEROL 267.68 mg/dL (0-200); CREATININE RESULT 1.31 mg/dL (0.52-1.25); Direct HDL 71 mg/dL (>40); POTASSIUM 4.8 mmol/L (3.6-5.0); SODIUM 137.6 mmol/L (137-145); TOTAL PROTEIN 6.7 g/dL (6.3-8.2); TRIGLYCERIDES 176 mg/dL (<150)
[2016-12-09 07:05] LABS: BASOPHILS % (MANUAL) 0 % (0-2); EOSINOPHILS % (MANUAL) 0 % (0-6); LYMPHOCYTES % (MANUAL) 2 % (13-45); TOTAL CELLS COUNTED 100
[2016-12-09 07:06] LABS: ANISOCYTOSIS 1+; OVALOCYTES SLIGHT; POIKILOCYTOSIS SLIGHT
[2016-12-09 07:14] LABS: DIRECT LDL 158 mg/dL (<100)
[2016-12-09 07:16] LABS: VLDL CHOLESTEROL 35.2 mg/dL (10-31)
[2016-12-09 07:25] LABS: GLUCOSE 673 mg/dL (75-110)
[2016-12-09 07:31] LABS: ANION GAP 26 (5-19)
[2016-12-09 08:19] LABS: APPEARANCE,URINE CLEAR; BILIRUBIN,URINE NEGATIVE (NEGATIVE); GLUCOSE, URINE >=500 mg/dL (NEGATIVE); KETONES,URINE 80 mg/dL (NEGATIVE); LEUKOCYTE ESTERASE,URINE NEGATIVE (NEGATIVE); NITRITE,URINE NEGATIVE (NEGATIVE); PROTEIN,URINE 100 mg/dL (NEGATIVE); URINE SPECIFIC GRAVITY 1.016; UROBILINOGEN,URINE NEGATIVE mg/dL (<2.0)
[2016-12-09 08:31] LABS: URINE BARBITURATES SCREEN NEGATIVE; URINE METHADONE SCREEN NEGATIVE; URINE OPIATES LOW NEGATIVE; URINE PHENCYCLIDINE SCREEN NEGATIVE
--- NOTE | 2016-12-09 08:58 | EKG REPORT ---
SEVERITY:- BORDERLINE ECG - SINUS TACHYCARDIA BORDERLINE INFERIOR Q WAVES BORDERLINE T ABNORMALITIES, INFERIOR LEADS : Confirmed by: Brayden Silverio MD 09-Dec-2016 08:57:50
[2016-12-09] MEDS ORDERED: GLUCAGON,HUMAN RECOMB 1 MG INJ IM PRN ×2 (09:23→11:02)
[2016-12-09] MEDS ORDERED: DEXTROSE 40% GEL 15 GM TUBE PO PRN ×4 (09:23→11:02)
[2016-12-09] MEDS ORDERED: DEXTROSE 50%-WATER 25 GM/50 ML DISP.SYRIN IV PRN ×4 (09:23→11:02)
[2016-12-09] MEDS ORDERED: INSULIN REG, HUMAN 100 UNIT/ML 3 ML VIAL (PYX) ONE (09:46)
[2016-12-09] MEDS: NORMAL SALINE 100 ML with INSULIN REGULAR, HUMAN 100 UNIT IV PRN ×4 (10:10→20:04)
[2016-12-09] MEDS ORDERED: OXYCODONE-ACETAMINOPHEN 5-325 MG TABLET PO PRN (10:50)
[2016-12-09] MEDS ORDERED: ACETAMINOPHEN 325 MG TABLET PO PRN (10:50)
[2016-12-09] MEDS ORDERED: ONDANSETRON HCL INJ/PF 4 MG/2 ML SDV IV PRN (10:50)
[2016-12-09] MEDS ORDERED: NORMAL SALINE 1000 ML 1,000 ML IV PRN (10:53)
--- NOTE | 2016-12-09 11:01 | ER Document Report ---
ED General - General Chief Complaint: High Blood Sugar Stated Complaint: BLOOD SUGAR PROBLEMS TRAVEL OUTSIDE OF THE [place] IN LAST 30 DAYS: No - HPI Patient complains to provider of: nausea vomiting elevated blood sugars Notes: Patient coming in for evaluation of elevated blood sugars and vomiting blood. According to EMS patient had a large amount of blood in the toilet bowl prior to his transport here to the ER according to nursing staff upon my arrival patient had vomited dark material into emesis bag. This all occurred before my arrival here to the ER. Upon my evaluation patient information is lying comfortably tachycardia, monitor otherwise states that he did have some red vomitus today. Patient states no history vomiting blood in the past. Denies history of alcohol abuse denies a history of having any EGDs performed or history of liver disease or esophageal varices. Patient denies fevers chills denies any recent travel. Patient states he is compliant with his insulin. Patient otherwise denies any complaints of shortness of breath chest pain abdominal pain - Related Data Allergies/Adverse Reactions: No Known Allergies Allergy (Verified 11/22/16 11:39) Past Medical History - Social History Smoking Status: Unknown if Ever Smoked Family History: Reviewed & Not Pertinent, DM, Hypertension - Past Medical History Cardiac Medical History: Reports: Hx Hypertension Pulmonary Medical History: Reports: Hx Asthma - as child, Hx COPD Neurological Medical History: Reports: Hx Migraine Endocrine Medical History: Reports: Hx Diabetes Mellitus Type 1, Hx Diabetes Mellitus Type 2 Renal/ Medical History: Denies: Hx Peritoneal Dialysis Psychiatric Medical History: Reports: Hx Anxiety, Hx Depression - and anxiety Past Surgical History: Reports: Hx Appendectomy, Hx Oral Surgery - wisdom teeth - Immunizations Hx Diphtheria, Pertussis, Tetanus Vaccination: Yes Hx Pneumococcal Vaccination: 09/16/00 Review of Systems - Review of Systems Constitutional: No symptoms reported EENT: No symptoms reported Cardiovascular: No symptoms reported Respiratory: No symptoms reported Gastrointestinal: Abdominal pain, Nausea, Vomiting Genitourinary: No symptoms reported Male Genitourinary: No symptoms reported Musculoskeletal: No symptoms reported Skin: No symptoms reported Hematologic/Lymphatic: No symptoms reported Neurological/Psychological: No symptoms reported -: Yes All other systems reviewed and negative Physical Exam - Vital signs Vitals: Pulse Ox 100 12/09/16 05:43 Interpretation: Tachycardic - General General appearance: Appears well, Alert - HEENT Head: Normocephalic, Atraumatic Eyes: Normal Pupils: PERRL - Respiratory Respiratory status: No respiratory distress Chest status: Nontender Breath sounds: Normal Chest palpation: Normal - Cardiovascular Rhythm: Tachycardia Heart sounds: Normal auscultation Murmur: No - Abdominal Inspection: Normal Distension: No distension Bowel sounds: Normal Tenderness: Nontender Organomegaly: No organomegaly - Rectal Stool: Heme negative Prostate: Normal - Back Back: Normal, Nontender - Extremities General upper extremity: Normal inspection, Nontender, Normal color, Normal ROM , Normal temperature General lower extremity: Normal inspection, Nontender, Normal color, Normal ROM , Normal temperature, Normal weight bearing. No: All's sign - Neurological Neuro grossly intact: Yes Cognition: Normal Orientation: AAOx4 Mely Coma Scale Eye Opening: Spontaneous Mely Coma Scale Verbal: Oriented [place] Coma Scale Motor: Obeys Commands Mely Coma Scale Total: 15 Speech: Normal Motor strength normal: LUE, RUE, LLE, RLE Sensory: Normal - Psychological Associated symptoms: Normal affect, Normal mood - Skin Skin Temperature: Warm Skin Moisture: Dry Skin Color: Normal Course - Re-evaluation Re-evalutation: 12/09/16 14:31 Patient's lab work is consistent with DKA elevated blood sugars decreased bicarbonate with iron gap. Patient does have elevation in white count however no signs of infection seen. Patient also does have a lab with lactic acid will likely from the patient's DKA. Patient has not vomited any blood here in ER but this with the patient on Protonix drip. Initially discussed with primary care physician who requested possible transfer to [facility] that we denies any GI on-call I did discuss with the provider decided the patient in transfer. Later in the morning I was able to contact her surgeon on-call. His well-trained in EGDs and colonoscopies and agrees to participate in this patient 's care. I did recontact the patient's primary care physician Dr. Fisher who now agrees to admit the patient in the light that our surgeon on-call who the glass melt operator will perform EGDs and colonoscopies. During the patient's course here in ER was started on insulin drip as well. Repeat laboratory studies were ordered. Upon surgical consult patient now states that he was drinking red Powerade for his transportation by EMS denies vomiting blood. Multiple nursing staff and EMS record in the chart the patient states he was vomiting blood. Patient did tolerate a rectal exam and was educated on the fact he was obtaining a rectal exam because of his history of vomiting blood. I discussed this with Dr. Fisher again who agrees the patient should still have a EGD performed tomorrow once he is stabilized from his DKA. - Vital Signs Vital signs: Temp Pulse Resp BP Pulse Ox 98 F 16 144/74 H 100 12/09/16 06:24 12/09/16 12:46 12/09/16 12:46 12/09/16 12:46 - Laboratory Result Diagrams: 12/09/16 06:13 12/09/16 06:13 Laboratory results interpreted by me: 12/09/16 12/09/16 12/09/16 06:13 06:13 06:13 WBC 17.5 H Hgb 12.1 L MCV 76 L MCH 23.6 L MCHC 31.0 L RDW 16.9 H Seg Neuts % (Manual) 98 H Lymphocytes % (Manual) 2 L Monocytes % (Manual) 0 L Abs Neuts (Manual) 17.2 H Abs Lymphs (Manual) 0.4 L Abs Monocytes (Manual) 0.0 L VBG pCO2 34.1 L Chloride 96 L Carbon Dioxide 16 L Anion Gap 26 H Creatinine 1.31 H Glucose 673 H* Lactic Acid Triglycerides 176 H Cholesterol 267.68 H LDL Cholesterol Direct 158 H VLDL Cholesterol 35.2 H Urine Protein Urine Glucose (UA) Urine Ketones Urine Blood 12/09/16 12/09/16 12/09/16 06:13 07:47 07:56 WBC Hgb MCV MCH MCHC RDW Seg Neuts % (Manual) Lymphocytes % (Manual) Monocytes % (Manual) Abs Neuts (Manual) Abs Lymphs (Manual) Abs Monocytes (Manual) VBG pCO2 Chloride Carbon Dioxide Anion Gap Creatinine Glucose Lactic Acid 4.8 H 2.4 H Triglycerides Cholesterol LDL Cholesterol Direct VLDL Cholesterol Urine Protein 100 H Urine Glucose (UA) >=500 H Urine Ketones 80 H Urine Blood SMALL H Critical Care Note - Critical Care Note Total time excluding time spent on procedures (mins): 60 Comments: Multiple phone calls for transferring patient Discharge - Discharge Clinical Impression: Hematemesis with nausea Diabetic ketoacidosis Qualifiers: Diabetes mellitus type: type 1 Diabetes mellitus complication detail: without coma Qualified Code(s): E10.10 - Type 1 diabetes mellitus with ketoacidosis without coma Admitting Provider: Fisher Unit Admitted: IMCU
[2016-12-09] MEDS ORDERED: INSULIN REG, HUMAN 100 UNIT/ML 3 ML VIAL (PYX) SUBCUT PRN (11:02)
--- NOTE | 2016-12-09 11:31 | PDOC H&P ---
History of Present Illness Admission Date/PCP: 12/09/16 11:12 MITCHELL SALGUERO MD Patient complains of: vomiting History of Present Illness: LENA SCHULZ is a 31 year old male This 41-year-old male with the very noncompliance to his medications and his diet no significant psych issues pain problems came to the emergency department complaining of feeling well and vomiting and claims it has some blood no vomiting which is not seen department. In the emergency department patient hemoglobin was stable. Patient blood sugar was as usual running 600 range but no sign of any DKA. Patient have at this ongoing problem for and patient's symptoms probably not watching the diet as usual. Patient's probably not taking the medications. Patient also seen by the stained glass artist and a [facility] but not since since last couple of months. Patient's denied any chest pain no shortness of the breath no abdominal pain. Patient will start on insulin drip and admitting in the hospital for further evaluation and treatment and was physical specialist waiting to see is a GI workup as per ER physician discussed with. Past Medical History Cardiac Medical History: Reports: Hypertension Pulmonary Medical History: Reports: Asthma - as child, Chronic Obstructive Pulmonary Disease (COPD) Neurological Medical History: Reports: Migraine Endocrine Medical History: Reports: Diabetes Mellitus Type 1 Renal/ Medical History: Reports: Chronic Kidney Disease Psychiatric Medical History: Reports: Depression - and anxiety Hematology: Denies: Anemia Past Surgical History Past Surgical History: Reports: Appendectomy Social History Lives with: Family Smoking Status: Current Every Day Smoker Frequency of Alcohol Use: Occasional Hx Recreational Drug Use: No Hx Prescription Drug Abuse: Yes Family History Family History: Reviewed & Not Pertinent, DM, Hypertension Parental Family History Reviewed: Yes Children Family History Reviewed: Yes Sibling(s) Family History Reviewed.: Yes Medication/Allergy Home Medications: Hydroxyzine Pamoate [Vistaril 50 mg Capsule] 50 mg PO Q8H 12/20/14 Oxycodone HCl 1 tab PO TID 09/03/15 Trazodone HCl 100 mg PO QHS PRN 09/03/15 Amlodipine Besylate 5 mg PO DAILY 09/10/16 Atenolol 25 mg PO DAILY 09/10/16 Gabapentin 300 mg PO TID 09/10/16 Insulin Aspart [Novolog Flexpen] 10 unit SUBCUT .SLD SCALE #1 pen 11/20/16 Insulin Detemir [Levemir Flextouch] 35 unit SQ QHS #3 11/20/16 Allergies/Adverse Reactions: No Known Allergies Allergy (Verified 11/22/16 11:39) Review of Systems Constitutional: PRESENT: weakness. ABSENT: chills, fever(s), headache(s), weight gain, weight loss Eyes: ABSENT: visual disturbances Ears: ABSENT: hearing changes Cardiovascular: ABSENT: chest pain, dyspnea on exertion, edema, orthropnea, palpitations Respiratory: ABSENT: cough, hemoptysis Gastrointestinal: ABSENT: abdominal pain, constipation, diarrhea, hematemesis, hematochezia, nausea, vomiting Genitourinary: ABSENT: dysuria, hematuria Musculoskeletal: ABSENT: joint swelling Integumentary: ABSENT: rash, wounds Neurological: ABSENT: abnormal gait, abnormal speech, confusion, dizziness, focal weakness, syncope Psychiatric: ABSENT: anxiety, depression, homidical ideation, suicidal ideation Endocrine: ABSENT: cold intolerance, heat intolerance, menstrual abnormalities, polydipsia, polyuria Hematologic/Lymphatic: ABSENT: easy bleeding, easy bruising, lymphadenopathy Physical Exam Vital Signs: Temp Pulse Resp BP Pulse Ox 98 F 26 H 168/90 H 97 12/09/16 06:24 12/09/16 06:00 12/09/16 06:18 12/09/16 06:23 General appearance: PRESENT: no acute distress, well-developed, well-nourished Head exam: PRESENT: atraumatic, normocephalic Eye exam: PRESENT: conjunctiva pink, EOMI, PERRLA. ABSENT: scleral icterus Ear exam: PRESENT: normal external ear exam Mouth exam: PRESENT: moist, tongue midline Neck exam: PRESENT: full ROM. ABSENT: carotid bruit, JVD, lymphadenopathy, thyromegaly Respiratory exam: PRESENT: clear to auscultation juan ramon Cardiovascular exam: PRESENT: RRR. ABSENT: diastolic murmur, rubs, systolic murmur Pulses: PRESENT: normal dorsalis pedis pul, +2 pedal pulses bilateral Vascular exam: PRESENT: normal capillary refill GI/Abdominal exam: PRESENT: normal bowel sounds, soft. ABSENT: distended, guarding, mass, organolmegaly, rebound, tenderness Rectal exam: PRESENT: deferred Neurological exam: PRESENT: alert, awake, oriented to person, oriented to place , oriented to time, oriented to situation, CN II-XII grossly intact. ABSENT: motor sensory deficit Psychiatric exam: PRESENT: appropriate affect, depressed. ABSENT: homicidal ideation, suicidal ideation Skin exam: PRESENT: dry, intact, warm. ABSENT: cyanosis, rash Results Impressions: Chest X-Ray 12/09/16 05:50 IMPRESSION: NO ACUTE RADIOGRAPHIC FINDING IN THE CHEST. Assessment & Plan - Diagnosis (1) Hematemesis with nausea Is this a current diagnosis for this admission?: YesPlan: Admitting the patient's in the IMCU start the patient on the Protonix and consult the surgery for possible rule out any endoscopic (2) Abdominal pain Qualifiers: Abdominal location: generalized Qualified Code(s): R10.84 - Generalized abdominal pain Is this a current diagnosis for this admission?: YesPlan: Most likely a gastritis will get the CT abdomen and pelvis (3) Depression Qualifiers: Depression Type: unspecified Qualified Code(s): F32.9 - Major depressive disorder, single episode, unspecified Is this a current diagnosis for this admission?: YesPlan: Currently stable (4) Diabetes mellitus type 1 with hyperosmolarity Qualifiers: Diabetes mellitus complication detail: without coma Qualified Code(s ): E10.69 - Type 1 diabetes mellitus with other specified complication; E10.65 - Type 1 diabetes mellitus with hyperglycemia Is this a current diagnosis for this admission?: YesPlan: Start on insulin drip and IV fluid and check a Chem-7 every 6 hours (5) Hypertension Qualifiers: Hypertension type: essential hypertension Qualified Code(s): I10 - Essential (primary) hypertension Is this a current diagnosis for this admission?: YesPlan: Is stable - Time Time Spent: 50 to 70 Minutes Medications reviewed and adjusted accordingly: Yes Anticipated discharge: Other Within: Other - Inpatient Certification Medical Necessity: Need Close Monitoring Due to Risk of Patient Decompensation, Need For IV Fluids, Need for IV Antibiotics Post Hospital Care: D/C Canal Boat Operator Documentation - Plan Summary Plan Summary: Patient is a very noncompliance discussed with the patient so many times in the patient is not follow properly several hospital admissions and never follow properly in the office and the patient's neighbor follow properly with stained glass artist and I don't think so patient is taking the medication as prescribed and not watching the diet. Patient understands the risk noncompliance and causing the more damage to organs will contact his and several time talking the past and she also admitted the patient is very noncompliance
[2016-12-09] MEDS: CEFEPIME 1 GM/D5W RTU 1 GM/50 ML RTUPB IV SCH (15:10)
--- NOTE | 2016-12-09 15:48 | CONSULTATION REPORT E ---
Consultation Report NAME: LENA SCHULZ : 1985 AGE: 31Y DATE: 12/09/2016 ROOM: 529 A TO: DOROTEO FOWLER M.D. FROM: MITCHELL SALGUERO M.D. Requesting Physician HISTORY OF PRESENT ILLNESS: Thank you for asking me to see this 31-year-old male, admitted for diabetic ketoacidosis, who also reports 2 episodes of hematemesis this morning. The patient also states he was drinking some red-stained drink; however, there is a question about previous episodes of hematemesis reported by the patient to his PCP. After this finding was discussed with emergency room physician and his primary care physician, a decision was made to ask me to perform an upper endoscopy. The procedure will be scheduled for tomorrow because of the clinical condition due to his diabetic ketoacidosis. PAST MEDICAL HISTORY: Significant for: 1. Type 1 diabetes. 2. Acute renal failure. 3. Nephropathy. 4. Hypertension. 5. History of acute appendicitis and appendectomy. 6. History of chronic kidney disease. 7. Chronic pain syndrome. 8. Depression. FAMILY HISTORY: Family history has been investigated and noncontributory to the current condition. ALLERGIES: The patient has no allergies. SOCIAL HISTORY: The patient denies any abuse of alcohol, drugs, or tobacco. MEDICATIONS: 1. The patient is on Tylenol 650 mg p.o. q. 4 p.r.n. for pain 2. Protonix drip. 3. Normal saline IV fluids. Home medications include: 1. Trazodone 100 mg p.o. every bedtime. 2. Oxycodone 1 tablet p.o. t.i.d. 3. Insulin Levemir and Novolog. 4. Vistaril 50 mg p.o. q. 8 p.r.n. itching. 5. Gabapentin 300 mg p.o. t.i.d. 6. Atenolol 25 mg p.o. daily. 7. Amlodipine 10 mg p.o. daily. DIAGNOSTIC DATA: Review of labs: White blood cell count 17.5, H and H of 12 and 38, platelet count of 404. Urine toxicology screen is negative. Occult blood in the stools is negative. PT, PTT, INR within normal limits. Venous blood gas showed pH of 7.4 with a pCO2 of 34 and a base excess of -3. Electrolytes normal sodium and potassium with low chloride of 96, BUN and creatinine 19 and 1.2 respectively. Liver profile within normal limits. Lipid profile showed elevated cholesterol. Urinalysis shows 100 mg/mL of proteins, 200 mg/mL of glucose, ketones revealed 80 mg/mL, and urine blood small. PHYSICAL EXAMINATION: GENERAL: The patient is alert and oriented x3, in moderate distress. VITAL SIGNS: Stable and within normal limits. The patient is afebrile. Pulse 104, blood pressure 144/74, respirations 16, saturating 100% on room air. HEENT: II-XII cranial nerves are normal. NECK: Supple. LUNGS: Clear. CHEST: Symmetric bilaterally. HEART: Regular rhythm and rate. ABDOMEN: Flat, soft, nondistended, nontender. EXTREMITIES: Upper extremities are equal and symmetric bilaterally without deficits. NEUROLOGIC SYSTEM: Equal and symmetric bilaterally without deficits. SKIN: Warm, dry, and intact without lesions. ASSESSMENT: 1. Hematemesis x2. 2. Diabetic ketoacidosis with hyperglycemia and ketones in the urine. 3. Stable normal hemoglobin and hematocrit. PLAN: 1. Will plan for EGD tomorrow to identify the cause of hematemesis. 2. In the meantime, the patient's diabetic ketoacidosis will have to be corrected. 3. Will keep the patient n.p.o., on IV fluids. 4. Procedure, risks, benefits, complications including viscus perforation and bleeding have been discussed with the patient, his questions were answered and he decided to proceed DICTATING PHYSICIAN: DOROTEO FOWLER M.D. [id number] [id number] ID: [id number] JOB#: [id number] ACCT: [id number] cc:DOROTEO FOWLER M.D. > [facility]
[2016-12-09 15:57] LABS: HEMATOCRIT 32.7 % (37.9-51.0); HEMOGLOBIN 10.3 g/dL (13.5-17.0); HGB HCT DIFFERENCE -1.8; MEAN CORPUSCULAR HEMOGLOBIN 23.4 pg (27.0-33.4); MEAN CORPUSCULAR HGB CONC 31.6 g/dL (32.0-36.0); MEAN CORPUSCULAR VOLUME 74 fl (80-97); RED BLOOD COUNT 4.42 10^6/uL (4.35-5.55); RED CELL DISTRIBUTION WIDTH 16.5 % (11.5-14.0); WHITE BLOOD COUNT 20.5 10^3/uL (4.0-10.5)
[2016-12-09 15:59] LABS: PROTHROMBIN TIME 13.2 SEC (11.4-15.4)
[2016-12-09 16:00] LABS: PARTIAL THROMBOPLASTIN TIME 32.8 SEC (23.5-35.8)
[2016-12-09 16:08] LABS: ANION GAP 15 (5-19); BLOOD UREA NITROGEN 24 mg/dL (7-20); CARBON DIOXIDE 21 mmol/L (22-30); CHLORIDE 102 mmol/L (98-107); GLUCOSE 272 mg/dL (75-110); POTASSIUM 4.1 mmol/L (3.6-5.0); SODIUM 138.1 mmol/L (137-145)
[2016-12-09] MEDS ORDERED: ATENOLOL 50 MG TABLET PO ONE (18:30)
[2016-12-09] MEDS: GABAPENTIN 300 MG CAPSULE PO SCH ×2 (18:46→22:31)
[2016-12-09] MEDS: OXYCODONE HCL IR 5 MG TABLET PO PRN (18:47)
[2016-12-09] MEDS ORDERED: INSULIN DETEMIR 100 UNIT/ML 3 ML PEN SUBCUT ONE ×2 (22:00→22:08)
[2016-12-09] MEDS: TRAZODONE HCL 50 MG TABLET PO SCH (22:31)
[2016-12-09] MEDS: HYDROXYZINE PAMOATE 25 MG CAPSULE PO SCH (22:31)
[2016-12-09] MEDS: PANTOPRAZOLE SODIUM 40 MG VIAL IV SCH (22:31)
[2016-12-09] MEDS: INSULIN REG, HUMAN 100 UNIT/ML 3 ML VIAL (PYX) SUBCUT PRN ×2 (22:32→23:30)
[2016-12-09 22:51] LABS: ANION GAP 9 (5-19); BLOOD UREA NITROGEN 27 mg/dL (7-20); CALCIUM 8.2 mg/dL (8.4-10.2); CARBON DIOXIDE 22 mmol/L (22-30); CHLORIDE 105 mmol/L (98-107); CREATININE RESULT 1.42 mg/dL (0.52-1.25); GLUCOSE 166 mg/dL (75-110); POTASSIUM 4.5 mmol/L (3.6-5.0); SODIUM 135.6 mmol/L (137-145)
[2016-12-10] MEDS: OXYCODONE HCL IR 5 MG TABLET PO PRN ×4 (01:00→22:20)
[2016-12-10] MEDS: INSULIN REG, HUMAN 100 UNIT/ML 3 ML VIAL (PYX) SUBCUT PRN ×6 (01:07→21:53)
[2016-12-10] MEDS: CEFEPIME 1 GM/D5W RTU 1 GM/50 ML RTUPB IV SCH ×2 (01:08→12:49)
[2016-12-10] MEDS: HYDROXYZINE PAMOATE 25 MG CAPSULE PO SCH (06:13)
[2016-12-10 07:58] LABS: ABSOLUTE BASOPHILS # (AUTO) 0.1 10^3/uL (0.0-0.2); ABSOLUTE EOSINOPHILS # (AUTO) 0.1 10^3/uL (0.0-0.6); ABSOLUTE LYMPHOCYTES (AUTO) 2.6 10^3/uL (0.5-4.7); ABSOLUTE MONOCYTES (AUTO) 0.8 10^3/uL (0.1-1.4); ABSOLUTE NEUT (AUTO) 11.8 10^3/uL (1.7-8.2); BASOPHILS % (AUTO) 0.5 % (0-2); EOSINOPHILS % (AUTO) 0.8 % (0-6); HEMATOCRIT 32.7 % (37.9-51.0); HEMOGLOBIN 10.4 g/dL (13.5-17.0); HGB HCT DIFFERENCE -1.5; LYMPHOCYTES % (AUTO) 16.7 % (13-45); MEAN CORPUSCULAR HEMOGLOBIN 23.6 pg (27.0-33.4); MEAN CORPUSCULAR HGB CONC 31.9 g/dL (32.0-36.0); MEAN CORPUSCULAR VOLUME 74 fl (80-97); MONOCYTES % (AUTO) 5.2 % (3-13); RED BLOOD COUNT 4.42 10^6/uL (4.35-5.55); RED CELL DISTRIBUTION WIDTH 16.7 % (11.5-14.0); SEGMENTED NEUTROPHILS % (AUTO) 76.8 % (42-78); WHITE BLOOD COUNT 15.3 10^3/uL (4.0-10.5)
[2016-12-10 08:20] LABS: ANION GAP 8 (5-19); BLOOD UREA NITROGEN 20 mg/dL (7-20); CALCIUM 8.8 mg/dL (8.4-10.2); CARBON DIOXIDE 26 mmol/L (22-30); CHLORIDE 108 mmol/L (98-107); CREATININE RESULT 1.24 mg/dL (0.52-1.25); GLUCOSE 100 mg/dL (75-110); MAGNESIUM 1.8 mg/dL (1.6-2.3); POTASSIUM 4.1 mmol/L (3.6-5.0); SODIUM 141.6 mmol/L (137-145)
[2016-12-10] MEDS ORDERED: DEXTROSE 50%-WATER 25 GM/50 ML DISP.SYRIN IV PRN ×2 (08:20)
[2016-12-10] MEDS ORDERED: DEXTROSE 40% GEL 15 GM TUBE PO PRN ×2 (08:20)
[2016-12-10] MEDS ORDERED: GLUCAGON,HUMAN RECOMB 1 MG INJ IM PRN (08:20)
[2016-12-10] MEDS ORDERED: NORMAL SALINE 1000 ML 1,000 ML IV PRN (08:20)
[2016-12-10] MEDS: GABAPENTIN 300 MG CAPSULE PO SCH ×4 (09:13→21:07)
[2016-12-10] MEDS: ATENOLOL 50 MG TABLET PO SCH (09:13)
[2016-12-10] MEDS: AMLODIPINE BESYLATE 5 MG TABLET PO SCH (09:13)
[2016-12-10] MEDS: PANTOPRAZOLE SODIUM 40 MG VIAL IV SCH ×2 (09:14→21:53)
[2016-12-10] MEDS ORDERED: INSULIN DETEMIR 100 UNIT/ML 3 ML PEN SUBCUT SCH ×2 (10:00→22:00)
[2016-12-10] MEDS ORDERED: NALOXONE HCL INJ/PF 0.4 MG/1 ML SDV ONE (10:04)
[2016-12-10] MEDS ORDERED: ONDANSETRON HCL INJ/PF 4 MG/2 ML SDV ONE (10:05)
[2016-12-10] MEDS ORDERED: PROMETHAZINE HCL INJ 25 MG/1 ML VIAL ONE (10:05)
[2016-12-10] MEDS ORDERED: GLYCOPYRROLATE INJ 0.4 MG/2 ML VIAL ONE (10:05)
[2016-12-10] MEDS ORDERED: EPINEPHRINE INJ 1 MG/10 ML DISP.SYRIN ONE (10:06)
[2016-12-10] MEDS ORDERED: FLUMAZENIL INJ 0.5 MG/5 ML VIAL IV ONE (10:06)
[2016-12-10] MEDS ORDERED: GLUCAGON,HUMAN RECOMB 1 MG INJ ONE (10:06)
[2016-12-10] MEDS: FENTANYL CITRATE INJ/PF 100 MCG/2 ML AMPUL ONE ×3 (10:45→10:53)
[2016-12-10] MEDS: MIDAZOLAM 2 MG/2 ML INJ ONE ×3 (10:47→10:55)
--- NOTE | 2016-12-10 11:46 | PDOC PROGRESS REPORT ---
Subjective Progress Note for:: 12/10/16 Subjective:: pt is feeling better bs under control off drip schd for endoscopy nocp no sob still depressed Physical Exam Vital Signs: Temp Pulse Resp BP Pulse Ox 97.8 F 77 16 155/91 H 100 12/10/16 09:06 12/10/16 11:25 12/10/16 11:25 12/10/16 11:25 12/10/16 11:25 Intake & Output 12/09/16 12/10/16 12/11/16 06:59 06:59 06:59 Intake Total 1440 Balance 1440 Weight 91 kg General appearance: PRESENT: no acute distress, well-developed, well-nourished Head exam: PRESENT: atraumatic, normocephalic Eye exam: PRESENT: conjunctiva pink, EOMI, PERRLA. ABSENT: scleral icterus Ear exam: PRESENT: normal external ear exam Mouth exam: PRESENT: moist, tongue midline Neck exam: PRESENT: full ROM. ABSENT: carotid bruit, JVD, lymphadenopathy, thyromegaly Respiratory exam: PRESENT: clear to auscultation juan ramon Cardiovascular exam: PRESENT: RRR. ABSENT: diastolic murmur, rubs, systolic murmur Pulses: PRESENT: normal dorsalis pedis pul, +2 pedal pulses bilateral Vascular exam: PRESENT: normal capillary refill GI/Abdominal exam: PRESENT: normal bowel sounds, soft. ABSENT: distended, guarding, mass, organolmegaly, rebound, tenderness Rectal exam: PRESENT: deferred Neurological exam: PRESENT: alert, awake, oriented to person, oriented to place , oriented to time, oriented to situation, CN II-XII grossly intact. ABSENT: motor sensory deficit Psychiatric exam: PRESENT: appropriate affect, normal mood. ABSENT: homicidal ideation, suicidal ideation Skin exam: PRESENT: dry, intact, warm. ABSENT: cyanosis, rash Results Laboratory Results: 12/10/16 07:37 12/10/16 07:37 12/09/16 12/09/16 12/09/16 15:28 15:28 22:25 WBC 20.5 H RBC 4.42 Hgb 10.3 L Hct 32.7 L MCV 74 L MCH 23.4 L MCHC 31.6 L RDW 16.5 H Plt Count 358 Seg Neutrophils % Lymphocytes % Monocytes % Eosinophils % Basophils % Absolute Neutrophils Absolute Lymphocytes Absolute Monocytes Absolute Eosinophils Absolute Basophils Sodium 138.1 135.6 L Potassium 4.1 4.5 Chloride 102 105 Carbon Dioxide 21 L 22 Anion Gap 15 9 BUN 24 H 27 H Creatinine 1.30 H 1.42 H Est GFR ( Amer) > 60 > 60 Est GFR (Non-Af Amer) > 60 58 L Glucose 272 H 166 H Calcium 9.0 8.2 L Magnesium 12/10/16 12/10/16 07:37 07:37 WBC 15.3 H RBC 4.42 Hgb 10.4 L Hct 32.7 L MCV 74 L MCH 23.6 L MCHC 31.9 L RDW 16.7 H Plt Count 342 Seg Neutrophils % 76.8 Lymphocytes % 16.7 Monocytes % 5.2 Eosinophils % 0.8 Basophils % 0.5 Absolute Neutrophils 11.8 H Absolute Lymphocytes 2.6 Absolute Monocytes 0.8 Absolute Eosinophils 0.1 Absolute Basophils 0.1 Sodium 141.6 Potassium 4.1 Chloride 108 H Carbon Dioxide 26 Anion Gap 8 BUN 20 Creatinine 1.24 Est GFR ( Amer) > 60 Est GFR (Non-Af Amer) > 60 Glucose 100 Calcium 8.8 Magnesium 1.8 Impressions: Abdomen/Pelvis CT 12/09/16 00:00 IMPRESSION: NO SIGNIFICANT OR ACUTE PROCESS IN THE ABDOMEN OR PELVIS. Chest X-Ray 12/09/16 05:50 IMPRESSION: NO ACUTE RADIOGRAPHIC FINDING IN THE CHEST. Assessment & Plan - Diagnosis (1) Hematemesis with nausea Is this a current diagnosis for this admission?: YesPlan: no s/o any sx in hospital awit for endoscopy (2) Abdominal pain Qualifiers: Abdominal location: generalized Qualified Code(s): R10.84 - Generalized abdominal pain Is this a current diagnosis for this admission?: YesPlan: all reolved (3) Depression Qualifiers: Depression Type: unspecified Qualified Code(s): F32.9 - Major depressive disorder, single episode, unspecified Is this a current diagnosis for this admission?: YesPlan: Currently stable (4) Diabetes mellitus type 1 with hyperosmolarity Qualifiers: Diabetes mellitus complication detail: without coma Qualified Code(s ): E10.69 - Type 1 diabetes mellitus with other specified complication; E10.65 - Type 1 diabetes mellitus with hyperglycemia Is this a current diagnosis for this admission?: YesPlan: all dka resolved cont ss levamir 20u bid (5) Hypertension Qualifiers: Hypertension type: essential hypertension Qualified Code(s): I10 - Essential (primary) hypertension Is this a current diagnosis for this admission?: YesPlan: Is stable - Time Time Spent with patient: 15-24 minutes Medications reviewed and adjusted accordingly: Yes Anticipated discharge: Home, Other Within: Other - Inpatient Certification Medical Necessity: Need For IV Fluids, Need for IV Antibiotics Post Hospital Care: D/C Emt Paramedic Documentation - Plan Summary Plan Summary: d/w pt about complince of med will montor next 24 h cont ax until all culture back
--- NOTE | 2016-12-10 11:53 | OPERATIVE REPORT E ---
Operative Report NAME: LENA SCHULZ : 1985 AGE: 31Y DATE OF SURGERY: 12/10/2016 ROOM: 529 PREOPERATIVE DIAGNOSIS: Hematemesis. POSTOPERATIVE DIAGNOSES: 1. Antritis. 2. Distal esophagitis. 3. Small hiatal hernia. 4. Gastroparesis with bezoars. PROCEDURE: EGD with biopsy. Intravenous sedation provided by Dr. Fowler. SURGEON: DOROTEO FOWLER M.D. STONE PAVER: None. BLEEDING: None. COMPLICATIONS: None. FLUIDS: 300 mL. ANESTHESIA: Versed 5 mg IV push and 100 mcg IV push of Fentanyl. INDICATION AND FINDINGS: A 31-year-old male with history of diabetes who presented to the emergency room with diabetic ketoacidosis. In addition, there was a concern that patient had 2 episodes of hematemesis prior to the hospitalization. A decision was made to perform an upper endoscopy. DESCRIPTION OF PROCEDURE: The procedure was done in the emergency room. The patient was placed in lateral decubitus. IV sedation provided as above. The endoscope was inserted through the mouth, esophagus, stomach and duodenum. Preparation was fair. A large amount of undigested food was noted within the entire stomach and antrum; however, the pylorus was free from food debris. No ulcers, masses, polyps or strictures were identified within the stomach or the duodenum. The scope was retroflexed. The fundus appeared to be normal; however, the inspection was limited by the large amount of bezoars. The instrument was then slowly withdrawn from the stomach into the esophagus. Distal esophagitis was then noted. A small hiatal hernia was identified as well. In addition, biopsy was obtained from the antrum and sent for H. pylori infection. The instrument was then withdrawn into the esophagus which appeared to be normal without evidence of ulcers or other abnormalities. The patient tolerated the procedure well and was then transferred to the recovery room in satisfactory condition. RECOMMENDATIONS: Due to the patient's endoscopic findings, I am recommending high-dose proton-pump inhibitors and a diet free of caffeine, chocolate, fatty food, and the use of Maalox on a p.r.n. basis. DICTATING PHYSICIAN: DOROTEO FOWLER M.D. [id number] PHY#: [id number] ID: [id number] JOB#: [id number] ACCT: [id number] cc:DOROTEO FOWLER M.D. > ZOYA
[2016-12-10] MEDS: HYDROXYZINE PAMOATE 50 MG CAPSULE PO SCH ×2 (13:14→21:53)
--- NOTE | 2016-12-10 13:38 | Operative Report ---
Operative Report PREOPERATIVE DIAGNOSIS: hematemesis POSTOPERATIVE DIAGNOSIS: antritis with microulcerations OPERATION: EGD with BX; intravenous sedation by Dr. Vallecillo SURGEON: Jaron Duke, ANESTHESIA: Moderate Sedation TISSUE REMOVED OR ALTERED: BX antrum for H. Pilorii COMPLICATIONS: none ESTIMATED BLOOD LOSS: none INTRAOPERATIVE FINDINGS: antritis with microulcerations
[2016-12-10] MEDS: TRAZODONE HCL 50 MG TABLET PO SCH (21:53)
[2016-12-10] MEDS ORDERED: (PENDING PHARMACY ID) (Trazodone Hcl [Desyrel] 100 MG) PO SCH (22:00)
[2016-12-10] MEDS ORDERED: HYDROXYZINE PAMOATE 50 MG CAPSULE PO SCH (22:00)
[2016-12-11] MEDS: GABAPENTIN 300 MG CAPSULE PO SCH ×4 (00:36→17:18)
[2016-12-11] MEDS: CEFEPIME 1 GM/D5W RTU 1 GM/50 ML RTUPB IV SCH ×2 (00:38→12:41)
[2016-12-11 05:03] LABS: ABSOLUTE EOSINOPHILS # (AUTO) 0.1 10^3/uL (0.0-0.6); ABSOLUTE LYMPHOCYTES (AUTO) 3.6 10^3/uL (0.5-4.7); ABSOLUTE MONOCYTES (AUTO) 0.7 10^3/uL (0.1-1.4); ABSOLUTE NEUT (AUTO) 6.6 10^3/uL (1.7-8.2); BASOPHILS % (AUTO) 0.3 % (0-2); EOSINOPHILS % (AUTO) 1.3 % (0-6); HEMATOCRIT 36.2 % (37.9-51.0); HEMOGLOBIN 11.5 g/dL (13.5-17.0); HGB HCT DIFFERENCE -1.7; LYMPHOCYTES % (AUTO) 32.5 % (13-45); MEAN CORPUSCULAR HEMOGLOBIN 23.5 pg (27.0-33.4); MEAN CORPUSCULAR HGB CONC 31.8 g/dL (32.0-36.0); MEAN CORPUSCULAR VOLUME 74 fl (80-97); MONOCYTES % (AUTO) 5.9 % (3-13); RED BLOOD COUNT 4.91 10^6/uL (4.35-5.55); RED CELL DISTRIBUTION WIDTH 16.7 % (11.5-14.0); WHITE BLOOD COUNT 11.1 10^3/uL (4.0-10.5)
[2016-12-11 05:26] LABS: ANION GAP 12 (5-19); BLOOD UREA NITROGEN 13 mg/dL (7-20); CALCIUM 9.1 mg/dL (8.4-10.2); CARBON DIOXIDE 27 mmol/L (22-30); CHLORIDE 106 mmol/L (98-107); GLUCOSE 90 mg/dL (75-110); MAGNESIUM 1.6 mg/dL (1.6-2.3); POTASSIUM 3.4 mmol/L (3.6-5.0); SODIUM 144.6 mmol/L (137-145)
[2016-12-11] MEDS: HYDROXYZINE PAMOATE 50 MG CAPSULE PO SCH ×3 (05:59→22:04)
[2016-12-11] MEDS ORDERED: NORMAL SALINE 1000 ML 1,000 ML IV PRN (07:49)
[2016-12-11] MEDS ORDERED: INSULIN DETEMIR 100 UNIT/ML 3 ML PEN SUBCUT SCH (08:00)
[2016-12-11] MEDS: INSULIN REG, HUMAN 100 UNIT/ML 3 ML VIAL (PYX) SUBCUT PRN ×4 (08:48→22:37)
[2016-12-11] MEDS: INSULIN DETEMIR 100 UNIT/ML 3 ML PEN SUBCUT SCH ×2 (08:48→22:37)
--- NOTE | 2016-12-11 09:28 | PDOC PROGRESS REPORT ---
Subjective Progress Note for:: 12/11/16 Subjective:: Patient is currently doing well patient underwent for the endoscopy yesterday and also some mild antritis.Patients denied any chest pain denied any shortness of the breathPatients denied any abdominal painPatients have a low blood sugar this morning but other than that remains stable Physical Exam Vital Signs: Temp Pulse Resp BP Pulse Ox 97.6 F 75 14 147/80 H 100 12/11/16 07:51 12/11/16 07:51 12/11/16 07:51 12/11/16 07:51 12/11/16 07:51 Intake & Output 12/10/16 12/11/16 12/12/16 06:59 06:59 06:59 Intake Total 1440 2460 Balance 1440 2460 Weight 91 kg 92 kg General appearance: PRESENT: no acute distress, well-developed, well-nourished Head exam: PRESENT: atraumatic, normocephalic Eye exam: PRESENT: conjunctiva pink, EOMI, PERRLA. ABSENT: scleral icterus Ear exam: PRESENT: normal external ear exam Mouth exam: PRESENT: moist, tongue midline Neck exam: PRESENT: full ROM. ABSENT: carotid bruit, JVD, lymphadenopathy, thyromegaly Respiratory exam: PRESENT: clear to auscultation juan ramon Cardiovascular exam: PRESENT: RRR. ABSENT: diastolic murmur, rubs, systolic murmur Pulses: PRESENT: normal dorsalis pedis pul, +2 pedal pulses bilateral Vascular exam: PRESENT: normal capillary refill GI/Abdominal exam: PRESENT: normal bowel sounds, soft. ABSENT: distended, guarding, mass, organolmegaly, rebound, tenderness Rectal exam: PRESENT: deferred Neurological exam: PRESENT: alert, awake, oriented to person, oriented to place , oriented to time, oriented to situation, CN II-XII grossly intact. ABSENT: motor sensory deficit Psychiatric exam: PRESENT: appropriate affect, normal mood. ABSENT: homicidal ideation, suicidal ideation Skin exam: PRESENT: dry, intact, warm. ABSENT: cyanosis, rash Results Laboratory Results: 12/11/16 04:47 12/11/16 04:47 12/11/16 12/11/16 04:47 04:47 WBC 11.1 H RBC 4.91 Hgb 11.5 L Hct 36.2 L MCV 74 L MCH 23.5 L MCHC 31.8 L RDW 16.7 H Plt Count 321 Seg Neutrophils % 60.0 Lymphocytes % 32.5 Monocytes % 5.9 Eosinophils % 1.3 Basophils % 0.3 Absolute Neutrophils 6.6 Absolute Lymphocytes 3.6 Absolute Monocytes 0.7 Absolute Eosinophils 0.1 Absolute Basophils 0.0 Sodium 144.6 Potassium 3.4 L Chloride 106 Carbon Dioxide 27 Anion Gap 12 BUN 13 Creatinine 1.00 Est GFR ( Amer) > 60 Est GFR (Non-Af Amer) > 60 Glucose 90 Calcium 9.1 Magnesium 1.6 Impressions: Abdomen/Pelvis CT 12/09/16 00:00 IMPRESSION: NO SIGNIFICANT OR ACUTE PROCESS IN THE ABDOMEN OR PELVIS. Chest X-Ray 12/09/16 05:50 IMPRESSION: NO ACUTE RADIOGRAPHIC FINDING IN THE CHEST. Assessment & Plan - Diagnosis (1) Hematemesis with nausea Is this a current diagnosis for this admission?: YesPlan: No sign of any hematemesis in the hospital and endoscope is also stable (2) Abdominal pain Qualifiers: Abdominal location: generalized Qualified Code(s): R10.84 - Generalized abdominal pain Is this a current diagnosis for this admission?: YesPlan: All resolved (3) Depression Qualifiers: Depression Type: unspecified Qualified Code(s): F32.9 - Major depressive disorder, single episode, unspecified Is this a current diagnosis for this admission?: YesPlan: Currently stable (4) Diabetes mellitus type 1 with hyperosmolarity Qualifiers: Diabetes mellitus complication detail: without coma Qualified Code(s ): E10.69 - Type 1 diabetes mellitus with other specified complication; E10.65 - Type 1 diabetes mellitus with hyperglycemia Is this a current diagnosis for this admission?: YesPlan: all dka resolved cont ss levamir 20u bid (5) Hypertension Qualifiers: Hypertension type: essential hypertension Qualified Code(s): I10 - Essential (primary) hypertension Is this a current diagnosis for this admission?: YesPlan: Is stable - Time Time Spent with patient: 15-24 minutes Medications reviewed and adjusted accordingly: Yes Anticipated discharge: Other Within: Other - Inpatient Certification Medical Necessity: Need Close Monitoring Due to Risk of Patient Decompensation, Need For IV Fluids Post Hospital Care: D/C Upholsterer Assembly Line Documentation - Plan Summary Plan Summary: We will adjust the insulin DC the Protonix and continues to current other medications and asked the patient's to walk with the ex assistant/program director
[2016-12-11] MEDS ORDERED: (PENDING PHARMACY ID) (Atenolol [Tenormin] 25 MG) PO SCH (10:00)
[2016-12-11] MEDS ORDERED: AMLODIPINE BESYLATE 5 MG TABLET PO SCH (10:00)
[2016-12-11] MEDS: ATENOLOL 50 MG TABLET PO SCH (11:52)
[2016-12-11] MEDS: AMLODIPINE BESYLATE 5 MG TABLET PO SCH (11:53)
[2016-12-11] MEDS: OXYCODONE HCL IR 5 MG TABLET PO PRN ×2 (11:54→18:01)
--- NOTE | 2016-12-11 18:23 | PSYCHOLOGICAL NOTE ---
Psych Note - Psych Note Psych Note: Patient is a 31 year old male admitted to [facility] Hospitalist's services for Diabetes related complications. Patient was referred for consultation due to concerns of depression. Patient today states he is not so much depressed as he is stressed out. Patient reports he is currently living separately from his and child, which he says is emotionally taxing. Patient states he is staying here and there with friends, and that makes it difficult to manage his diabetes. Patient actually adamant that he is not depressed and attributes his symptoms to stress. Patient reports he is followed by [facility] and is prescribed Vistaril for anxiety and Trazadone to assist him with sleep. Patient states he is unable to work due to chronic lower back pain but has applied for disability and been denied 3. Note, patient presented to the ER numerous times throughout the month of November with complaints related to his diabetes and/or suicidal ideations/depression. Patient's initial episode he reported 4 days of hallucinations; however, patient was not observed to be responding to internal stimuli throughout the episode in the ER. Patient also had no prior history of hallucinations. Patient's , Jennifer states the patient keeps going into DKA, and that he is not very mentally stable. She states she feels the patient is deeply depressed and struggles daily. She states some times he does not know why he is stressed. She states last month or so he told her he was having thoughts of stabbing himself or running into traffic. She states she thinks he is both depressed, but also struggling with managing his diabetes. Patient is alert and oriented 4. Mood presents depressed with extremely flat affect. Patient denies suicidal/homicidal ideations, intent, plan, means. Patient denies A/VH; delusions not noted. Thought processes were guarded. Conversational speech was low for rate, tone, and prosody. Intellectual abilities were estimated within average range. Attention and focus were poor. Insight, judgment, impulse control were fair. 311(F32.9) unspecified depressive disorder per history provided by patient 300.00 (F41.9) unspecified anxiety disorder per history provided by patient Patient is psychiatrically cleared and recommended to follow up with his psychiatric provider upon discharge. Patient denies depression and states he is just experiencing stress related to his health as well as other social factors. Encourage patient to pursue counseling to help him to manage these stressors, and also encouraged wellness through managing his diabetes. Patient historically has not followed recommendations and followed up as referred and oftentimes presents with secondary gain (as previously noted in chart). I consulted with Dr. Waller in regards to the care and management of this patient. Thank you kindly for this consult.
[2016-12-11] MEDS: TRAZODONE HCL 50 MG TABLET PO SCH (22:04)
[2016-12-12] MEDS: GABAPENTIN 300 MG CAPSULE PO SCH ×4 (00:09→18:10)
[2016-12-12] MEDS: CEFEPIME 1 GM/D5W RTU 1 GM/50 ML RTUPB IV SCH ×2 (00:10→13:37)
[2016-12-12] MEDS: OXYCODONE HCL IR 5 MG TABLET PO PRN ×4 (00:10→21:42)
[2016-12-12 04:26] LABS: ABSOLUTE BASOPHILS # (AUTO) 0.1 10^3/uL (0.0-0.2); ABSOLUTE EOSINOPHILS # (AUTO) 0.2 10^3/uL (0.0-0.6); ABSOLUTE MONOCYTES (AUTO) 0.5 10^3/uL (0.1-1.4); ABSOLUTE NEUT (AUTO) 4.6 10^3/uL (1.7-8.2); EOSINOPHILS % (AUTO) 2.5 % (0-6); HEMOGLOBIN 10.7 g/dL (13.5-17.0); HGB HCT DIFFERENCE -0.9; LYMPHOCYTES % (AUTO) 35.9 % (13-45); MEAN CORPUSCULAR HEMOGLOBIN 23.9 pg (27.0-33.4); MEAN CORPUSCULAR HGB CONC 32.3 g/dL (32.0-36.0); MEAN CORPUSCULAR VOLUME 74 fl (80-97); MONOCYTES % (AUTO) 5.7 % (3-13); RED BLOOD COUNT 4.46 10^6/uL (4.35-5.55); RED CELL DISTRIBUTION WIDTH 16.6 % (11.5-14.0); SEGMENTED NEUTROPHILS % (AUTO) 54.9 % (42-78); WHITE BLOOD COUNT 8.4 10^3/uL (4.0-10.5)
[2016-12-12 04:53] LABS: ANION GAP 10 (5-19); BLOOD UREA NITROGEN 12 mg/dL (7-20); CALCIUM 8.7 mg/dL (8.4-10.2); CARBON DIOXIDE 27 mmol/L (22-30); CHLORIDE 102 mmol/L (98-107); CREATININE RESULT 1.01 mg/dL (0.52-1.25); GLUCOSE 303 mg/dL (75-110); MAGNESIUM 1.5 mg/dL (1.6-2.3)
[2016-12-12] MEDS: HYDROXYZINE PAMOATE 50 MG CAPSULE PO SCH ×3 (05:58→21:42)
[2016-12-12] MEDS: LANSOPRAZOLE 30 MG TAB.RAP.DR PO SCH (05:58)
[2016-12-12] MEDS: INSULIN DETEMIR 100 UNIT/ML 3 ML PEN SUBCUT SCH ×2 (07:34→21:41)
[2016-12-12] MEDS: INSULIN REG, HUMAN 100 UNIT/ML 3 ML VIAL (PYX) SUBCUT PRN ×4 (07:34→21:42)
[2016-12-12] MEDS ORDERED: INSULIN DETEMIR 100 UNIT/ML 3 ML PEN SUBCUT ONE (09:30)
[2016-12-12] MEDS: ATENOLOL 50 MG TABLET PO SCH (09:44)
[2016-12-12] MEDS: AMLODIPINE BESYLATE 5 MG TABLET PO SCH (09:44)
--- NOTE | 2016-12-12 11:42 | PDOC PROGRESS REPORT ---
Subjective Progress Note for:: 12/12/16 Subjective:: Patient is currently doing fair patient's blood sugar is coming down around 200 range. Patient's denied any abdominal pain no chest pain no shortness of the breath. Patient's walk by himself in the hallway without any problems patient seen by the psych and clear Physical Exam Vital Signs: Temp Pulse Resp BP Pulse Ox 97.7 F 64 18 177/97 H 96 12/12/16 07:34 12/12/16 07:34 12/12/16 07:34 12/12/16 07:34 12/12/16 07:34 Intake & Output 12/11/16 12/12/16 12/13/16 06:59 06:59 06:59 Intake Total 2460 3880 Balance 2460 3880 Weight 92 kg 90.7 kg General appearance: PRESENT: no acute distress, well-developed, well-nourished Head exam: PRESENT: atraumatic, normocephalic Eye exam: PRESENT: conjunctiva pink, EOMI, PERRLA. ABSENT: scleral icterus Ear exam: PRESENT: normal external ear exam Mouth exam: PRESENT: moist, tongue midline Neck exam: PRESENT: full ROM. ABSENT: carotid bruit, JVD, lymphadenopathy, thyromegaly Respiratory exam: PRESENT: clear to auscultation juan ramon Cardiovascular exam: PRESENT: RRR. ABSENT: diastolic murmur, rubs, systolic murmur Pulses: PRESENT: normal dorsalis pedis pul, +2 pedal pulses bilateral Vascular exam: PRESENT: normal capillary refill GI/Abdominal exam: PRESENT: normal bowel sounds, soft. ABSENT: distended, guarding, mass, organolmegaly, rebound, tenderness Rectal exam: PRESENT: deferred Neurological exam: PRESENT: alert, awake, oriented to person, oriented to place , oriented to time, oriented to situation, CN II-XII grossly intact. ABSENT: motor sensory deficit Psychiatric exam: PRESENT: appropriate affect, normal mood. ABSENT: homicidal ideation, suicidal ideation Skin exam: PRESENT: dry, intact, warm. ABSENT: cyanosis, rash Results Laboratory Results: 12/12/16 03:51 12/12/16 03:51 12/12/16 12/12/16 03:51 03:51 WBC 8.4 RBC 4.46 Hgb 10.7 L Hct 33.0 L MCV 74 L MCH 23.9 L MCHC 32.3 RDW 16.6 H Plt Count 281 Seg Neutrophils % 54.9 Lymphocytes % 35.9 Monocytes % 5.7 Eosinophils % 2.5 Basophils % 1.0 Absolute Neutrophils 4.6 Absolute Lymphocytes 3.0 Absolute Monocytes 0.5 Absolute Eosinophils 0.2 Absolute Basophils 0.1 Sodium 139.0 Potassium 4.0 Chloride 102 Carbon Dioxide 27 Anion Gap 10 BUN 12 Creatinine 1.01 Est GFR ( Amer) > 60 Est GFR (Non-Af Amer) > 60 Glucose 303 H Calcium 8.7 Magnesium 1.5 L Impressions: Abdomen/Pelvis CT 12/09/16 00:00 IMPRESSION: NO SIGNIFICANT OR ACUTE PROCESS IN THE ABDOMEN OR PELVIS. Chest X-Ray 12/09/16 05:50 IMPRESSION: NO ACUTE RADIOGRAPHIC FINDING IN THE CHEST. Assessment & Plan - Diagnosis (1) Hematemesis with nausea Is this a current diagnosis for this admission?: YesPlan: No sign of any pathology continues to use the PPI may be possible gastroparesis (2) Abdominal pain Qualifiers: Abdominal location: generalized Qualified Code(s): R10.84 - Generalized abdominal pain Is this a current diagnosis for this admission?: YesPlan: All resolved due to the hyperglycemia (3) Depression Qualifiers: Depression Type: unspecified Qualified Code(s): F32.9 - Major depressive disorder, single episode, unspecified Is this a current diagnosis for this admission?: YesPlan: Follow with the psych (4) Diabetes mellitus type 1 with hyperosmolarity Qualifiers: Diabetes mellitus complication detail: without coma Qualified Code(s ): E10.69 - Type 1 diabetes mellitus with other specified complication; E10.65 - Type 1 diabetes mellitus with hyperglycemia Is this a current diagnosis for this admission?: YesPlan: Currently all stable discussed with the patient's needs to see the fundraising coordinator patient is already seen in the and will make arrangement but patient is to follow patient is a very noncompliance (5) Hypertension Qualifiers: Hypertension type: essential hypertension Qualified Code(s): I10 - Essential (primary) hypertension Is this a current diagnosis for this admission?: YesPlan: Is stable - Time Time Spent with patient: 15-24 minutes Medications reviewed and adjusted accordingly: Yes Anticipated discharge: Home Within: within 24 hours - Inpatient Certification Medical Necessity: Need Close Monitoring Due to Risk of Patient Decompensation Post Hospital Care: D/C Industrial Economics Teacher Documentation - Plan Summary Plan Summary: Continues to ambulating today continues to current medications and diabetic education's and discussed with the patient's family and will discharge tomorrow if remains stable
[2016-12-12] MEDS: MAGNESIUM OXIDE 400 MG TABLET PO SCH (18:10)
[2016-12-12] MEDS: TRAZODONE HCL 50 MG TABLET PO SCH (21:42)
[2016-12-13] MEDS: GABAPENTIN 300 MG CAPSULE PO SCH ×2 (02:19→05:23)
[2016-12-13] MEDS: CEFEPIME 1 GM/D5W RTU 1 GM/50 ML RTUPB IV SCH (02:19)
[2016-12-13 05:04] LABS: ANION GAP 9 (5-19); BLOOD UREA NITROGEN 18 mg/dL (7-20); CALCIUM 9.5 mg/dL (8.4-10.2); CARBON DIOXIDE 30 mmol/L (22-30); CHLORIDE 99 mmol/L (98-107); CREATININE RESULT 1.43 mg/dL (0.52-1.25); GLUCOSE 120 mg/dL (75-110); POTASSIUM 3.8 mmol/L (3.6-5.0); SODIUM 138.2 mmol/L (137-145)
[2016-12-13] MEDS: HYDROXYZINE PAMOATE 50 MG CAPSULE PO SCH (05:23)
[2016-12-13] MEDS: LANSOPRAZOLE 30 MG TAB.RAP.DR PO SCH (05:23)
[2016-12-13] MEDS: INSULIN REG, HUMAN 100 UNIT/ML 3 ML VIAL (PYX) SUBCUT PRN (07:53)
[2016-12-13] MEDS: OXYCODONE HCL IR 5 MG TABLET PO PRN (07:55)
[2016-12-13] MEDS ORDERED: INSULIN DETEMIR 100 UNIT/ML 3 ML PEN SUBCUT SCH (08:00)
[2016-12-13 08:37] VITALS: BP 134/81
[2016-12-13] MEDS: MAGNESIUM OXIDE 400 MG TABLET PO SCH (09:03)
[2016-12-13] MEDS: ATENOLOL 50 MG TABLET PO SCH (09:03)
[2016-12-13] MEDS: AMLODIPINE BESYLATE 5 MG TABLET PO SCH (09:04)
--- NOTE | 2016-12-13 13:34 | PDOC DISCHARGE SUMMARY ---
General - Admit/Disc Date/PCP Admission Date/Primary Care Provider: 12/09/16 12:52 MITCHELL SALGUERO MD Discharge Date: 12/13/16 - Discharge Diagnosis (1) Hematemesis with nausea Is this a current diagnosis for this admission?: YesSummary: There is no noticeable any blood in the vomiting and patient does not have any symptoms and endoscopy was also stable (2) Abdominal pain Is this a current diagnosis for this admission?: YesSummary: All resolved and a CT abdomen and pelvis was also negative to most likely uncontrolled blood sugar (3) Depression Is this a current diagnosis for this admission?: YesSummary: Since currently see the psych and clear from the psych (4) Diabetes mellitus type 1 with hyperosmolarity Is this a current diagnosis for this admission?: YesSummary: That the patient on the Levemir 20 units twice a day and patient's blood sugars running below 200 in the hospital and discussed with the patient's to schedule sliding scale and follow with the financial planning analyst. Discussed with the to closely follow. Patient is very noncompliance (5) Hypertension Is this a current diagnosis for this admission?: YesSummary: Currently stable - Additional Information Resuscitation Status: Full Code Discharge Diet: Diabetic Discharge Activity: Activity As Tolerated Home Medications: Amlodipine Besylate [Norvasc 5 mg Tablet] 5 mg PO DAILY 12/09/16 Atenolol [Tenormin] 25 mg PO DAILY 12/09/16 Gabapentin [Neurontin 300 mg Capsule] 300 mg PO QID 12/09/16 Hydroxyzine Pamoate [Vistaril 50 mg Capsule] 50 mg PO Q8 12/09/16 Insulin Aspart [Novolog Flexpen] 0 units SQ .PERSLIDINGSCALE 12/09/16 Oxycodone HCl 15 mg PO Q6 12/09/16 Trazodone HCl [Desyrel] 100 mg PO QHS 12/09/16 Cephalexin Monohydrate [Keflex 500 mg Capsule] 500 mg PO TID #15 capsule Insulin Detemir [Levemir Flextouch] 20 units SQ BID #3 12/13/16 History of Present Illness History of Present Illness: LENA SCHULZ is a 31 year old male This 41-year-old male with the very noncompliance to his medications and his diet no significant psych issues pain problems came to the emergency department complaining of feeling well and vomiting and claims it has some blood no vomiting which is not seen department. In the emergency department patient hemoglobin was stable. Patient blood sugar was as usual running 600 range but no sign of any DKA. Patient have at this ongoing problem for and patient's symptoms probably not watching the diet as usual. Patient's probably not taking the medications. Patient also seen by the financial planning analyst and a [facility] but not since since last couple of months. Patient's denied any chest pain no shortness of the breath no abdominal pain. Patient will start on insulin drip and admitting in the hospital for further evaluation and treatment and was physical specialist waiting to see is a GI workup as per ER physician discussed with. Hospital Course Hospital Course: This is a 31-year-old male basically admitted for the hyperglycemia and possible DKA and patient was put on insulin drip and is switched to the subcu insulin and patients remained stable patient's blood sugars below 200 and the patient's other medical problem was stable. Patient was seen by the surgery and endoscopy was done and no acute finding was seen. Patient also have a CT abdomen and pelvis was done was also negative and patient's all cultures also negative to. Patient otherwise p.o. intake is good patient's walk in the hallway without any problems for the last 2 days.Discussed with the about the patient's needs to closely follow with the financial planning analyst and also needs to closely follow the diet and take the insulin regularly because the patient is very noncompliance about the taking the medication and not following the diet and understand the risk of not control his blood sugar lead to the major cardiovascular and cerebrovascular accident and more complications from the diabetes. Patient's significant psych issues which is currently see the psych Physical Exam Vital Signs: Temp Pulse Resp BP Pulse Ox 98.0 F 77 20 134/81 H 99 12/13/16 09:04 12/13/16 09:04 12/13/16 09:04 12/13/16 09:04 12/13/16 09:04 Intake & Output 12/12/16 12/13/16 12/14/16 06:59 06:59 06:59 Intake Total 3880 1258 Balance 3880 1258 Weight 90.7 kg 91.7 kg General appearance: PRESENT: no acute distress, well-developed, well-nourished Head exam: PRESENT: atraumatic, normocephalic Eye exam: PRESENT: conjunctiva pink, EOMI, PERRLA. ABSENT: scleral icterus Ear exam: PRESENT: normal external ear exam Mouth exam: PRESENT: moist, tongue midline Neck exam: PRESENT: full ROM. ABSENT: carotid bruit, JVD, lymphadenopathy, thyromegaly Respiratory exam: PRESENT: clear to auscultation juan ramon Cardiovascular exam: PRESENT: RRR. ABSENT: diastolic murmur, rubs, systolic murmur Pulses: PRESENT: normal dorsalis pedis pul, +2 pedal pulses bilateral Vascular exam: PRESENT: normal capillary refill GI/Abdominal exam: PRESENT: normal bowel sounds, soft. ABSENT: distended, guarding, mass, organolmegaly, rebound, tenderness Rectal exam: PRESENT: deferred Neurological exam: PRESENT: alert, awake, oriented to person, oriented to place , oriented to time, oriented to situation, CN II-XII grossly intact. ABSENT: motor sensory deficit Psychiatric exam: PRESENT: appropriate affect, normal mood. ABSENT: homicidal ideation, suicidal ideation Skin exam: PRESENT: dry, intact, warm. ABSENT: cyanosis, rash Results Laboratory Results: 12/12/16 03:51 12/13/16 03:53 12/13/16 03:53 Sodium 138.2 Potassium 3.8 Chloride 99 Carbon Dioxide 30 Anion Gap 9 BUN 18 Creatinine 1.43 H Est GFR ( Amer) > 60 Est GFR (Non-Af Amer) 57 L Glucose 120 H Calcium 9.5 Impressions: Abdomen/Pelvis CT 12/09/16 00:00 IMPRESSION: NO SIGNIFICANT OR ACUTE PROCESS IN THE ABDOMEN OR PELVIS. Chest X-Ray 12/09/16 05:50 IMPRESSION: NO ACUTE RADIOGRAPHIC FINDING IN THE CHEST. Plan Time Spent: Greater than 30 Minutes - Continues to current about medications change the Levemir 20 units twice a day instead of once a day and continues a sliding scale
== END 2016-12-13 09:29 | disposition home or self-care (01) | DRG 638 ==
LOC: ER 05:32 → EH 10:50 → UNDOADMIN 10:50 → EH 11:12 → 5 12:52 → EH 14:44
PROVIDERS: ADMIT Family Medicine; ATTEND Family Medicine
PROC: 0DB68ZX Excision of Stomach, Via Natural or Artificial Opening Endoscopic, Diagnostic (ICD-10-PCS; principal; 2016-12-10 10:30)
DX: E10.65 Type 1 diabetes mellitus with hyperglycemia (principal); K92.0 Hematemesis; N17.9 Acute kidney failure, unspecified; F32.9 Major depressive disorder, single episode, unspecified; E10.22 Type 1 diabetes mellitus with diabetic chronic kidney disease; I12.9 Hypertensive chronic kidney disease with stage 1 through stage 4 chronic kidney disease, or unspecified chronic kidney disease; N18.9 Chronic kidney disease, unspecified; G89.4 Chronic pain syndrome; J44.9 Chronic obstructive pulmonary disease, unspecified; G43.909 Migraine, unspecified, not intractable, without status migrainosus; F41.9 Anxiety disorder, unspecified; K20.9 Esophagitis, unspecified; K44.9 Diaphragmatic hernia without obstruction or gangrene; J32.0 Chronic maxillary sinusitis; E10.43 Type 1 diabetes mellitus with diabetic autonomic (poly)neuropathy; K31.84 Gastroparesis; T18.9XXA Foreign body of alimentary tract, part unspecified, initial encounter; Z79.4 Long term (current) use of insulin; Z91.14 Patient's other noncompliance with medication regimen; Z79.899 Other long term (current) drug therapy; Z83.3 Family history of diabetes mellitus; Z82.49 Family history of ischemic heart disease and other diseases of the circulatory system
CPT/HCPCS: 36415; 43239; 71010; 74176; 80048; 80053; 80061; 80307; 81001; 82272; 82803; 82962; 83605; 83690; 83735; 85025; 85027; 85610; 85730; 86850; 86900; 86901; 87040; 87086; 88305; 88341; 93005; 93010; 96365; 96366; 99291; J0171; J0692; J1610; J1815; J2250; J2310; J2405; J2550; J3010; J3490; J7030; S0164

== ENCOUNTER 2016-12-16 11:29 | Inpatient (IN) | payer MEDICAID ==
[2016-12-16] MEDS ORDERED: NORMAL SALINE 1000 ML 1,000 ML IV ONE ×2 (11:50→12:33)
[2016-12-16] MEDS ORDERED: INSULIN REG, HUMAN 100 UNIT/ML 3 ML VIAL (PYX) IV ONE ×2 (11:50→12:33)
--- NOTE | 2016-12-16 11:54 | ER Document Report ---
ED Blood Sugar Problem - General Time seen by provider: 11:40 Mode of Arrival: Ambulatory Information source: Patient TRAVEL OUTSIDE OF THE [place] IN LAST 30 DAYS: No - HPI Onset: This morning - see HPI note Blood sugar level at home: 448 Associated symptoms: Dry mucous membranes, Nausea, Vomiting Similar symptoms previously: Yes Recently seen / treated by doctor: Yes <RAMAN LOREDO - Last Filed: 12/16/16 11:57> <SANGEETHA GOEL - Last Filed: 12/16/16 13:40> - General Stated Complaint: BLOOD SUGAR PROBLEM Notes: Patient is a 31 year old male presenting to the ED for high blood glucose levels. Patient has diabetes mellitus and is non-compliant with his medications. Patient has been evaluated and treated for this multiple times in this hospital for such. Patient was just recently discharged 3 days ago for DKA. Patient states his blood sugar was in the 400s this morning and he took 20 units of his insulin. Patient also had some nausea and vomiting that was onset this morning. Patient does not have a permanent living arrangement and states he has been staying with a relative over the past few days. Patient has no known allergies. (RAMAN LOREDO) - Related Data Allergies/Adverse Reactions: No Known Allergies Allergy (Verified 11/22/16 11:39) Past Medical History - General Information source: Patient - Social History Smoking Status: Unknown if Ever Smoked Family History: DM, Hypertension Patient has suicidal ideation: No Patient has homicidal ideation: No - Past Medical History Cardiac Medical History: Reports: Hx Hypertension Pulmonary Medical History: Reports: Hx Asthma - as child, Hx COPD Neurological Medical History: Reports: Hx Migraine Endocrine Medical History: Reports: Hx Diabetes Mellitus Type 1, Hx Diabetes Mellitus Type 2 Psychiatric Medical History: Reports: Hx Anxiety, Hx Depression - and anxiety Past Surgical History: Reports: Hx Appendectomy, Hx Oral Surgery - wisdom teeth - Immunizations Hx Diphtheria, Pertussis, Tetanus Vaccination: Yes Hx Pneumococcal Vaccination: 09/16/00 <RAMAN LOREDO - Last Filed: 12/16/16 11:57> Review of Systems - Review of Systems Constitutional: See HPI, Other - high glucose levels EENT: No symptoms reported Cardiovascular: No symptoms reported Respiratory: No symptoms reported Gastrointestinal: See HPI, Nausea, Vomiting Genitourinary: No symptoms reported Male Genitourinary: No symptoms reported Musculoskeletal: No symptoms reported Skin: No symptoms reported Hematologic/Lymphatic: No symptoms reported Neurological/Psychological: No symptoms reported -: Yes All other systems reviewed and negative <RAMAN LOREDO - Last Filed: 12/16/16 11:57> Physical Exam - Vital signs Interpretation: Tachycardic - General General appearance: Appears well, Alert In distress: Mild - HEENT Head: Normocephalic, Atraumatic Eyes: Normal Pupils: PERRL Mucous membranes: Dry - Respiratory Respiratory status: No respiratory distress Chest status: Nontender Breath sounds: Normal Chest palpation: Normal - Cardiovascular Rhythm: Regular, Tachycardia Heart sounds: Normal auscultation Murmur: No - Abdominal Inspection: Normal Distension: No distension Bowel sounds: Normal Tenderness: Nontender Organomegaly: No organomegaly - Back Back: Normal, Nontender - Extremities General upper extremity: Normal inspection, Normal ROM, Normal strength General lower extremity: Normal inspection, Normal ROM, Normal strength - Neurological Neuro grossly intact: Yes Cognition: Normal Orientation: AAOx4 Mely Coma Scale Eye Opening: Spontaneous Mely Coma Scale Verbal: Oriented Mely Coma Scale Motor: Obeys Commands Mely Coma Scale Total: 15 Speech: Normal Sensory: Normal - Psychological Associated symptoms: Normal affect, Normal mood - Skin Skin Temperature: Warm Skin Moisture: Dry <GERTRUDERAMAN - Last Filed: 12/16/16 11:57> Course - Laboratory Result Diagrams: 12/16/16 11:30 <RAMAN LOREDO - Last Filed: 12/16/16 11:57> - Laboratory Result Diagrams: 12/16/16 11:30 12/16/16 11:30 - EKG Interpretation by Ga EKG shows normal: Sinus rhythm, Stow, QRS Complexes. abnormal: Intervals - Borderline prolonged QT interval, ST-T Waves - Borderline T-wave abnormalities Rate: Tachycardia - 106 When compared to previous EKG there are: No significant change - Consults Dr. Kirkland Time consulted: 13:05 Consulted provider: will see as inpatient <SANGEETHA GOEL - Last Filed: 12/16/16 13:40> - Laboratory Laboratory results interpreted by sd: 12/16/16 12/16/16 12/16/16 11:30 11:30 11:43 WBC 11.0 H Hgb 10.6 L Hct 34.1 L MCV 77 L MCH 23.8 L MCHC 31.1 L RDW 17.0 H Seg Neutrophils % 88.0 H Lymphocytes % 6.9 L Absolute Neutrophils 9.7 H Sodium 134.2 L Chloride 97 L Glucose 852 H* POC Glucose > 550 H* AST 15 L Total Protein 5.8 L Albumin 3.4 L Urine Protein Urine Glucose (UA) 12/16/16 12:05 WBC Hgb Hct MCV MCH MCHC RDW Seg Neutrophils % Lymphocytes % Absolute Neutrophils Sodium Chloride Glucose POC Glucose AST Total Protein Albumin Urine Protein 100 H Urine Glucose (UA) >=500 H Discharge <RAMAN LOREDO - Last Filed: 12/16/16 11:57> - Discharge Admitting Provider: Phillip Kirkland covering Unit Admitted: Telemetry <SANGEETHA GOEL - Last Filed: 12/16/16 13:40> - Discharge Clinical Impression: Hyperglycemia due to type 1 diabetes mellitus, H/O medication noncompliance Nausea and vomiting Qualifiers: Vomiting type: unspecified Vomiting Intractability: non-intractable Qualified Code(s): R11.2 - Nausea with vomiting, unspecified Condition: Stable Disposition: ADMITTED OBSERVATION Referrals: MITCHELL SALGUERO MD [Primary Care Provider] - Follow up as needed Scribe Attestation: 12/16/16 13:40 I personally performed the services described in the documentation, reviewed and edited the documentation which was dictated to the scribe in my presence, and it accurately records my words and actions. (SANGEETHA GOEL) Scribe Documentation - Scribe Written by Scribe:: Raman Loredo 12/16/16 11:55 acting as scribe for :: Thomas <RAMAN LOREDO - Last Filed: 12/16/16 11:57>
[2016-12-16 12:14] LABS: ABSOLUTE BASOPHILS # (AUTO) 0.1 10^3/uL (0.0-0.2); ABSOLUTE LYMPHOCYTES (AUTO) 0.8 10^3/uL (0.5-4.7); ABSOLUTE MONOCYTES (AUTO) 0.4 10^3/uL (0.1-1.4); ABSOLUTE NEUT (AUTO) 9.7 10^3/uL (1.7-8.2); BASOPHILS % (AUTO) 0.9 % (0-2); EOSINOPHILS % (AUTO) 0.2 % (0-6); HEMATOCRIT 34.1 % (37.9-51.0); HEMOGLOBIN 10.6 g/dL (13.5-17.0); HGB HCT DIFFERENCE -2.3; LYMPHOCYTES % (AUTO) 6.9 % (13-45); MEAN CORPUSCULAR HEMOGLOBIN 23.8 pg (27.0-33.4); MEAN CORPUSCULAR HGB CONC 31.1 g/dL (32.0-36.0); MEAN CORPUSCULAR VOLUME 77 fl (80-97); RED BLOOD COUNT 4.45 10^6/uL (4.35-5.55)
[2016-12-16 12:19] LABS: ALANINE AMINOTRANSFERASE 27 U/L (21-72); ALBUMIN 3.4 g/dL (3.5-5.0); ALKALINE PHOSPHATASE 112 U/L (38-126); ANION GAP 9 (5-19); ASPARTATE AMINO TRANSFERASE 15 U/L (17-59); BILIRUBIN,DIRECT 0.2 mg/dL (0.0-0.4); BILIRUBIN,TOTAL 0.4 mg/dL (0.2-1.3); BLOOD UREA NITROGEN 17 mg/dL (7-20); CALCIUM 8.9 mg/dL (8.4-10.2); CARBON DIOXIDE 28 mmol/L (22-30); CHLORIDE 97 mmol/L (98-107); CREATINE KINASE 89 U/L (55-170); CREATININE RESULT 1.07 mg/dL (0.52-1.25); MAGNESIUM 1.7 mg/dL (1.6-2.3); SODIUM 134.2 mmol/L (137-145); TOTAL PROTEIN 5.8 g/dL (6.3-8.2)
[2016-12-16 12:28] LABS: APPEARANCE,URINE CLEAR; BILIRUBIN,URINE NEGATIVE (NEGATIVE); GLUCOSE, URINE >=500 mg/dL (NEGATIVE); KETONES,URINE NEGATIVE (NEGATIVE); LEUKOCYTE ESTERASE,URINE NEGATIVE (NEGATIVE); NITRITE,URINE NEGATIVE (NEGATIVE); PROTEIN,URINE 100 mg/dL (NEGATIVE); URINE SPECIFIC GRAVITY 1.024; UROBILINOGEN,URINE NEGATIVE mg/dL (<2.0)
[2016-12-16 12:31] LABS: GLUCOSE 852 mg/dL (75-110)
[2016-12-16] MEDS ORDERED: DEXTROSE 40% GEL 15 GM TUBE PO PRN ×2 (16:10)
[2016-12-16] MEDS ORDERED: DEXTROSE 50%-WATER 25 GM/50 ML DISP.SYRIN IV PRN ×2 (16:10)
[2016-12-16] MEDS ORDERED: GLUCAGON,HUMAN RECOMB 1 MG INJ IM PRN (16:10)
[2016-12-16] MEDS ORDERED: NORMAL SALINE 100 ML with INSULIN REGULAR, HUMAN 100 UNIT IV PRN ×2 (16:10)
[2016-12-16 17:10] LABS: PROTHROMBIN TIME 11.2 SEC (11.4-15.4)
[2016-12-16 17:11] LABS: PARTIAL THROMBOPLASTIN TIME 20.8 SEC (23.5-35.8)
[2016-12-16 17:23] LABS: PHOSPHORUS 3.2 mg/dL (2.5-4.5)
[2016-12-16 17:24] LABS: ANION GAP 11 (5-19); BLOOD UREA NITROGEN 16 mg/dL (7-20); CALCIUM 9.1 mg/dL (8.4-10.2); CARBON DIOXIDE 25 mmol/L (22-30); CHLORIDE 104 mmol/L (98-107); CREATINE KINASE 89 U/L (55-170); POTASSIUM 4.9 mmol/L (3.6-5.0)
[2016-12-16 17:32] LABS: CREATINE KINASE MB 0.45 ng/mL (<4.55)
[2016-12-16 17:38] LABS: GLUCOSE 521 mg/dL (75-110); TROPONIN I < 0.012 ng/mL
[2016-12-16 17:50] LABS: THYROID STIMULATING HORMONE 0.05 uIU/mL (0.47-4.68)
[2016-12-16 18:44] LABS: URINE BARBITURATES SCREEN NEGATIVE; URINE METHADONE SCREEN NEGATIVE; URINE OPIATES LOW NEGATIVE; URINE PHENCYCLIDINE SCREEN NEGATIVE
--- NOTE | 2016-12-16 19:17 | PDOC H&P ---
History of Present Illness Admission Date/PCP: 12/16/16 15:52 MITCHELL SALGUERO MD History of Present Illness: LENA SCHULZ is a 31 year old male with type 1 diabetes mellitus extremely noncompliant with frequent ED visits on multiple times leaving AGAINST MEDICAL ADVICE he came to the hospital because of hyperglycemia the serum glucose was over 800 , nonketotic. I saw him in the emergency room he does not seems to be in acute distress is laying down in the stretcher asking for pain medication uses opioid for pain control. He is not very compliant with his diabetic care Past Medical History Cardiac Medical History: Reports: Hypertension Pulmonary Medical History: Reports: Asthma - as child, Chronic Obstructive Pulmonary Disease (COPD) Neurological Medical History: Reports: Migraine Endocrine Medical History: Reports: Diabetes Mellitus Type 1 Psychiatric Medical History: Reports: Depression - and anxiety Past Surgical History Past Surgical History: Reports: Appendectomy Social History Smoking Status: Never Smoker Frequency of Alcohol Use: None Hx Recreational Drug Use: No Hx Prescription Drug Abuse: No Family History Family History: DM, Hypertension Parental Family History Reviewed: Yes Children Family History Reviewed: Yes Sibling(s) Family History Reviewed.: Yes Medication/Allergy Home Medications: Amlodipine Besylate [Norvasc 5 mg Tablet] 5 mg PO DAILY 12/16/16 Atenolol [Tenormin] 25 mg PO DAILY 12/16/16 Gabapentin [Neurontin 300 mg Capsule] 300 mg PO Q6 12/16/16 Hydroxyzine Pamoate [Vistaril 50 mg Capsule] 50 mg PO Q8 12/16/16 Insulin Aspart [Novolog Flexpen] 0 unit SQ .PERSLIDINGSCALE 12/16/16 Insulin Detemir [Levemir Flextouch] 20 unit SQ BID 12/16/16 Oxycodone HCl 15 mg PO Q6 12/16/16 Trazodone HCl [Desyrel] 100 mg PO QHS 12/16/16 Allergies/Adverse Reactions: No Known Allergies Allergy (Verified 11/22/16 11:39) Review of Systems Constitutional: ABSENT: chills, fever(s), headache(s), weight gain, weight loss Eyes: ABSENT: visual disturbances Ears: ABSENT: hearing changes Cardiovascular: ABSENT: chest pain, dyspnea on exertion, edema, orthropnea, palpitations Respiratory: ABSENT: cough, hemoptysis Gastrointestinal: ABSENT: abdominal pain, constipation, diarrhea, hematemesis, hematochezia, nausea, vomiting Genitourinary: ABSENT: dysuria, hematuria Musculoskeletal: ABSENT: joint swelling Integumentary: ABSENT: rash, wounds Neurological: ABSENT: abnormal gait, abnormal speech, confusion, dizziness, focal weakness, syncope Psychiatric: ABSENT: anxiety, depression, homidical ideation, suicidal ideation Endocrine: ABSENT: cold intolerance, heat intolerance, menstrual abnormalities, polydipsia, polyuria Hematologic/Lymphatic: ABSENT: easy bleeding, easy bruising, lymphadenopathy Physical Exam Vital Signs: Temp Pulse Resp BP Pulse Ox 19 150/86 H 99 12/16/16 18:01 12/16/16 18:01 12/16/16 18:01 Intake & Output 12/15/16 12/16/16 12/17/16 06:59 06:59 06:59 Weight 93.2 kg General appearance: PRESENT: no acute distress, well-developed, well-nourished Head exam: PRESENT: atraumatic, normocephalic Eye exam: PRESENT: conjunctiva pink, EOMI, PERRLA Ear exam: PRESENT: normal external ear exam Mouth exam: PRESENT: moist, tongue midline Neck exam: PRESENT: full ROM Respiratory exam: PRESENT: clear to auscultation juan ramon Cardiovascular exam: PRESENT: RRR, +S1, +S2 Vascular exam: PRESENT: normal capillary refill GI/Abdominal exam: PRESENT: normal bowel sounds, soft Rectal exam: PRESENT: deferred Neurological exam: PRESENT: alert, awake, oriented to person, oriented to place , oriented to time, oriented to situation, CN II-XII grossly intact Psychiatric exam: PRESENT: appropriate affect, normal mood Skin exam: PRESENT: dry, intact, warm Results Laboratory Results: 12/16/16 16:50 12/16/16 12/16/16 12/16/16 16:50 16:50 16:50 Sodium Potassium Chloride Carbon Dioxide Anion Gap BUN Creatinine Est GFR ( Amer) Est GFR (Non-Af Amer) Glucose Calcium Phosphorus 3.2 Magnesium 2.0 Ammonia < 8.7 L Amylase 67 Lipase 212.0 TSH 0.05 L Free T4 1.10 12/16/16 16:50 Sodium 140.0 Potassium 4.9 Chloride 104 Carbon Dioxide 25 Anion Gap 11 BUN 16 Creatinine 1.00 Est GFR ( Amer) > 60 Est GFR (Non-Af Amer) > 60 Glucose 521 H* Calcium 9.1 Phosphorus Magnesium Ammonia Amylase Lipase TSH Free T4 12/16/16 12/16/16 16:50 16:50 Creatine Kinase 89 CK-MB (CK-2) 0.45 Troponin I < 0.012 Assessment & Plan - Diagnosis (1) Diabetic hyperosmolar non-ketotic state Is this a current diagnosis for this admission?: YesPlan: Patient admitted for management, he will be treated with insulin infusion, normal saline infusion
[2016-12-16] MEDS ORDERED: INSULIN DETEMIR 100 UNIT/ML 3 ML PEN SUBCUT ONE ×2 (19:45→21:22)
[2016-12-16] MEDS ORDERED: AMLODIPINE BESYLATE 5 MG TABLET PO ONE (19:45)
[2016-12-16] MEDS ORDERED: GABAPENTIN 300 MG CAPSULE PO ONE (19:45)
[2016-12-16] MEDS ORDERED: HYDROXYZINE PAMOATE 50 MG CAPSULE PO ONE (19:45)
[2016-12-16] MEDS ORDERED: ATENOLOL 50 MG TABLET PO ONE (19:45)
--- NOTE | 2016-12-16 21:12 | EKG REPORT ---
SEVERITY:- BORDERLINE ECG - SINUS TACHYCARDIA BORDERLINE T WAVE ABNORMALITIES BORDERLINE PROLONGED QT INTERVAL : Confirmed by: Arin Drummond MD 16-Dec-2016 21:11:38
[2016-12-16 21:15] LABS: ANION GAP 10 (5-19); BLOOD UREA NITROGEN 19 mg/dL (7-20); CALCIUM 9.3 mg/dL (8.4-10.2); CARBON DIOXIDE 28 mmol/L (22-30); CHLORIDE 103 mmol/L (98-107); CREATININE RESULT 1.12 mg/dL (0.52-1.25); POTASSIUM 4.4 mmol/L (3.6-5.0); SODIUM 140.9 mmol/L (137-145)
[2016-12-16] MEDS ORDERED: OXYCODONE HCL IR 5 MG TABLET PO ONE (21:15)
[2016-12-16] MEDS: TRAZODONE HCL 50 MG TABLET PO SCH (21:21)
[2016-12-16 21:27] LABS: GLUCOSE 429 mg/dL (75-110)
[2016-12-16 23:40] LABS: CREATINE KINASE MB 0.47 ng/mL (<4.55)
[2016-12-16 23:49] LABS: TROPONIN I < 0.012 ng/mL
[2016-12-17] MEDS: GABAPENTIN 300 MG CAPSULE PO SCH ×4 (00:12→18:26)
[2016-12-17 02:30] LABS: ANION GAP 10 (5-19); BLOOD UREA NITROGEN 16 mg/dL (7-20); CALCIUM 9.3 mg/dL (8.4-10.2); CARBON DIOXIDE 26 mmol/L (22-30); CHLORIDE 106 mmol/L (98-107); CREATININE RESULT 1.05 mg/dL (0.52-1.25); GLUCOSE 96 mg/dL (75-110); POTASSIUM 4.1 mmol/L (3.6-5.0); SODIUM 142.4 mmol/L (137-145)
[2016-12-17 05:33] LABS: ABSOLUTE EOSINOPHILS # (AUTO) 0.2 10^3/uL (0.0-0.6); ABSOLUTE LYMPHOCYTES (AUTO) 3.7 10^3/uL (0.5-4.7); ABSOLUTE MONOCYTES (AUTO) 0.7 10^3/uL (0.1-1.4); ABSOLUTE NEUT (AUTO) 6.2 10^3/uL (1.7-8.2); BASOPHILS % (AUTO) 0.4 % (0-2); EOSINOPHILS % (AUTO) 1.8 % (0-6); HEMATOCRIT 33.9 % (37.9-51.0); HGB HCT DIFFERENCE -0.9; LYMPHOCYTES % (AUTO) 34.4 % (13-45); MEAN CORPUSCULAR HEMOGLOBIN 23.9 pg (27.0-33.4); MEAN CORPUSCULAR HGB CONC 32.4 g/dL (32.0-36.0); MEAN CORPUSCULAR VOLUME 74 fl (80-97); MONOCYTES % (AUTO) 6.4 % (3-13); RED CELL DISTRIBUTION WIDTH 17.3 % (11.5-14.0); WHITE BLOOD COUNT 10.9 10^3/uL (4.0-10.5)
[2016-12-17 05:54] LABS: ALANINE AMINOTRANSFERASE 26 U/L (21-72); ALBUMIN 3.5 g/dL (3.5-5.0); ALKALINE PHOSPHATASE 82 U/L (38-126); ANION GAP 10 (5-19); ASPARTATE AMINO TRANSFERASE 15 U/L (17-59); BILIRUBIN,DIRECT 0.2 mg/dL (0.0-0.4); BILIRUBIN,TOTAL 0.5 mg/dL (0.2-1.3); BLOOD UREA NITROGEN 16 mg/dL (7-20); CALCIUM 9.7 mg/dL (8.4-10.2); CARBON DIOXIDE 27 mmol/L (22-30); CHLORIDE 105 mmol/L (98-107); CREATINE KINASE 66 U/L (55-170); CREATININE RESULT 0.96 mg/dL (0.52-1.25); GLUCOSE 96 mg/dL (75-110); POTASSIUM 4.3 mmol/L (3.6-5.0); TOTAL PROTEIN 6.2 g/dL (6.3-8.2)
[2016-12-17 06:02] LABS: CREATINE KINASE MB 0.42 ng/mL (<4.55)
[2016-12-17] MEDS: OXYCODONE HCL IR 5 MG TABLET PO PRN ×3 (06:10→19:55)
[2016-12-17] MEDS: HYDROXYZINE PAMOATE 50 MG CAPSULE PO SCH ×3 (06:10→21:40)
[2016-12-17 06:13] LABS: TROPONIN I < 0.012 ng/mL
[2016-12-17] MEDS: AMLODIPINE BESYLATE 5 MG TABLET PO SCH (09:35)
[2016-12-17] MEDS: ATENOLOL 50 MG TABLET PO SCH (09:36)
[2016-12-17] MEDS: ENOXAPARIN SODIUM INJ 30 MG/0.3 ML DISP.SYRIN SUBCUT SCH (09:37)
[2016-12-17] MEDS: INSULIN REG, HUMAN 100 UNIT/ML 3 ML VIAL (PYX) SUBCUT PRN ×3 (09:46→21:40)
[2016-12-17] MEDS ORDERED: INSULIN DETEMIR 100 UNIT/ML 3 ML PEN SUBCUT SCH (10:00)
[2016-12-17 10:30] LABS: ANION GAP 9 (5-19); BLOOD UREA NITROGEN 15 mg/dL (7-20); CARBON DIOXIDE 25 mmol/L (22-30); CHLORIDE 100 mmol/L (98-107); CREATININE RESULT 0.98 mg/dL (0.52-1.25); SODIUM 133.8 mmol/L (137-145)
[2016-12-17 10:45] LABS: GLUCOSE 448 mg/dL (75-110)
[2016-12-17] MEDS ORDERED: GLUCAGON,HUMAN RECOMB 1 MG INJ IM PRN (12:40)
[2016-12-17] MEDS ORDERED: DEXTROSE 40% GEL 15 GM TUBE PO PRN ×2 (12:40)
[2016-12-17] MEDS ORDERED: DEXTROSE 50%-WATER 25 GM/50 ML DISP.SYRIN IV PRN ×2 (12:40)
--- NOTE | 2016-12-17 13:00 | PDOC PROGRESS REPORT ---
Subjective Progress Note for:: 12/17/16 Subjective:: Patient's came to the emergency department with the uncontrolled blood sugars and patient have on and off this is going on for several months while the patient had with the psych issuesIn patients does not have any permanent place to stay and I believe the patient is not taking properly medication as prescribed and the patient is not watching the diet as prescribedPatient's blood sugar is always under control while he is in the hospital but when he go home's patient start up and downPatient is also very noncompliance to see the physicians patient supposed to see the meat smoker but not follow Physical Exam Vital Signs: Temp Pulse Resp BP Pulse Ox 97.7 F 70 14 144/89 H 98 12/17/16 11:09 12/17/16 11:09 12/17/16 11:09 12/17/16 11:09 12/17/16 11:09 Intake & Output 12/16/16 12/17/16 12/18/16 06:59 06:59 06:59 Intake Total 500 360 Balance 500 360 Weight 93.2 kg General appearance: PRESENT: no acute distress, well-developed, well-nourished Head exam: PRESENT: atraumatic, normocephalic Eye exam: PRESENT: conjunctiva pink, EOMI, PERRLA. ABSENT: scleral icterus Ear exam: PRESENT: normal external ear exam Mouth exam: PRESENT: moist, tongue midline Neck exam: PRESENT: full ROM. ABSENT: carotid bruit, JVD, lymphadenopathy, thyromegaly Respiratory exam: PRESENT: clear to auscultation juan ramon Cardiovascular exam: PRESENT: RRR. ABSENT: diastolic murmur, rubs, systolic murmur Pulses: PRESENT: normal dorsalis pedis pul, +2 pedal pulses bilateral Vascular exam: PRESENT: normal capillary refill GI/Abdominal exam: PRESENT: normal bowel sounds, soft. ABSENT: distended, guarding, mass, organolmegaly, rebound, tenderness Rectal exam: PRESENT: deferred Neurological exam: PRESENT: alert, awake, oriented to person, oriented to place , oriented to time, oriented to situation, CN II-XII grossly intact. ABSENT: motor sensory deficit Psychiatric exam: PRESENT: appropriate affect, normal mood. ABSENT: homicidal ideation, suicidal ideation Skin exam: PRESENT: dry, intact, warm. ABSENT: cyanosis, rash Results Laboratory Results: 12/17/16 04:50 12/17/16 09:55 12/16/16 12/16/16 12/16/16 16:50 16:50 16:50 WBC RBC Hgb Hct MCV MCH MCHC RDW Plt Count Seg Neutrophils % Lymphocytes % Monocytes % Eosinophils % Basophils % Absolute Neutrophils Absolute Lymphocytes Absolute Monocytes Absolute Eosinophils Absolute Basophils Sodium Potassium Chloride Carbon Dioxide Anion Gap BUN Creatinine Est GFR ( Amer) Est GFR (Non-Af Amer) Glucose Calcium Phosphorus 3.2 Magnesium 2.0 Total Bilirubin AST ALT Alkaline Phosphatase Ammonia < 8.7 L Total Protein Albumin Amylase 67 Lipase 212.0 TSH 0.05 L Free T4 1.10 12/16/16 12/16/16 12/17/16 16:50 20:51 01:58 WBC RBC Hgb Hct MCV MCH MCHC RDW Plt Count Seg Neutrophils % Lymphocytes % Monocytes % Eosinophils % Basophils % Absolute Neutrophils Absolute Lymphocytes Absolute Monocytes Absolute Eosinophils Absolute Basophils Sodium 140.0 140.9 142.4 Potassium 4.9 4.4 4.1 Chloride 104 103 106 Carbon Dioxide 25 28 26 Anion Gap 11 10 10 BUN 16 19 16 Creatinine 1.00 1.12 1.05 Est GFR ( Amer) > 60 > 60 > 60 Est GFR (Non-Af Amer) > 60 > 60 > 60 Glucose 521 H* 429 H* 96 Calcium 9.1 9.3 9.3 Phosphorus Magnesium Total Bilirubin AST ALT Alkaline Phosphatase Ammonia Total Protein Albumin Amylase Lipase TSH Free T4 12/17/16 12/17/16 12/17/16 04:50 04:50 09:55 WBC 10.9 H RBC 4.60 Hgb 11.0 L Hct 33.9 L MCV 74 L MCH 23.9 L MCHC 32.4 RDW 17.3 H Plt Count 294 Seg Neutrophils % 57.0 Lymphocytes % 34.4 Monocytes % 6.4 Eosinophils % 1.8 Basophils % 0.4 Absolute Neutrophils 6.2 Absolute Lymphocytes 3.7 Absolute Monocytes 0.7 Absolute Eosinophils 0.2 Absolute Basophils 0.0 Sodium 142.0 133.8 L Potassium 4.3 5.0 Chloride 105 100 Carbon Dioxide 27 25 Anion Gap 10 9 BUN 16 15 Creatinine 0.96 0.98 Est GFR ( Amer) > 60 > 60 Est GFR (Non-Af Amer) > 60 > 60 Glucose 96 448 H* Calcium 9.7 9.0 Phosphorus Magnesium Total Bilirubin 0.5 AST 15 L ALT 26 Alkaline Phosphatase 82 Ammonia Total Protein 6.2 L Albumin 3.5 Amylase Lipase TSH Free T4 12/16/16 12/16/16 12/16/16 16:50 16:50 22:55 Creatine Kinase 89 75 CK-MB (CK-2) 0.45 Troponin I < 0.012 NT-Pro-B Natriuret Pep 12/16/16 12/17/16 12/17/16 22:55 04:50 04:50 Creatine Kinase 66 CK-MB (CK-2) 0.47 0.42 Troponin I < 0.012 < 0.012 NT-Pro-B Natriuret Pep 80 Assessment & Plan - Diagnosis (1) Diabetic hyperosmolar non-ketotic state Is this a current diagnosis for this admission?: YesPlan: Patient's currently on a subcu insulin and continues to monitor and will check the patient's C-peptide and insulin level (2) H/O medication noncompliance Is this a current diagnosis for this admission?: YesPlan: Discussed with the patient about compliance patient have a several psych evaluations done within the last 2 weeks (3) Hyperglycemia due to type 1 diabetes mellitus Is this a current diagnosis for this admission?: YesPlan: Continues to current medications (4) Hypertension Qualifiers: Hypertension type: essential hypertension Qualified Code(s): I10 - Essential (primary) hypertension Is this a current diagnosis for this admission?: YesPlan: Stable - Time Time Spent with patient: 15-24 minutes Medications reviewed and adjusted accordingly: Yes Anticipated discharge: Other Within: Other - Inpatient Certification Medical Necessity: Need Close Monitoring Due to Risk of Patient Decompensation, Need For IV Fluids Post Hospital Care: D/C [employer] Drafter Documentation - Plan Summary Plan Summary: Adjust insulins checked all the blood work
--- NOTE | 2016-12-17 13:07 | Physician Advisory Note ---
Physician Advisor ProgressNote .: Pursuant to the plan for [facility], I have reviewed the medical record for this patient. Physician Advisor Statement: Possible documentation opportunities if attending agrees: 1. "Hyperosmolar hyperglycemic state with osm gap 322 initially" 2. "Fe defic anemia due to chronic blood losses from repeated admissions for DKA & hyperosmolarity" As always, if concerned about any unstable VS or abnormal labs, please comment on them & note what doing about them, & please document each day the potential clinical problems you are concerned could occur if pt not kept in hospital for tx at this time. Discussion: 31yo male w/ chronic co-morbidities including DM-1 with terrible adherence to tx , frequently leaving AMA, with a d/c just 3 days ago from last DKA adm, along with HTN, COPD, dep/anx - presented 4/2 AM to ED w/high glc, N/V, dry mucosae, "mild distress" per ED (+) HR 115, RR29, BP 157/99, WBC 11.0, Hgb 10.6, na 134.2 w/glc 852, bicarb 28. ED gave 2L of NS boluses, 2units IV insulin x1, & insulin gtt 1unit/hr. Attending ordered LEvemir 20 units bid + insulin gtt, frequent lab checks, VS q4h, I/Os, daily wts. Status: This pt returns again with hyperosm hyperglycemic state, which has a mortality much higher than DKA. His initial osm gap was an impressively bad 322. After 1 night of care, he still has an elevated osm gap of 298 this AM. His glucose level was >500 x hours on 12/16, dropping over a short time overnight to 90s as of 2AM, then back over 400 within a few hours - quite unstable yet. Today's attending has ordered a C-peptide level, presumably to clarify whether pt's DM is type 1 or type 2, & adjusted insulin dosing, d/c'd insulin gtt. Pt is not adequately clinically stabilized for safe d/c home today. He is not back to baseline. Tx in inpatient hospital setting medically reasonable & necessary to protect pt' s health, safety, & medical condition. Appropriate for Inpt status. Thanks for your help with documentation accuracy/specificity improvement! Buffy Simmons MD COUNTS INCLUDE 234 BEDS AT THE [facility] Physician Advisor, Fellow of Hospital Medicine
[2016-12-17 14:05] LABS: ANION GAP 12 (5-19); BLOOD UREA NITROGEN 17 mg/dL (7-20); CALCIUM 9.8 mg/dL (8.4-10.2); CARBON DIOXIDE 26 mmol/L (22-30); CHLORIDE 100 mmol/L (98-107); CREATININE RESULT 1.31 mg/dL (0.52-1.25); GLUCOSE 338 mg/dL (75-110); POTASSIUM 4.6 mmol/L (3.6-5.0); SODIUM 137.8 mmol/L (137-145)
[2016-12-17 17:44] LABS: ANION GAP 14 (5-19); BLOOD UREA NITROGEN 18 mg/dL (7-20); CALCIUM 9.5 mg/dL (8.4-10.2); CARBON DIOXIDE 23 mmol/L (22-30); CHLORIDE 101 mmol/L (98-107); CREATININE RESULT 1.07 mg/dL (0.52-1.25); GLUCOSE 199 mg/dL (75-110); POTASSIUM 4.4 mmol/L (3.6-5.0); SODIUM 138.4 mmol/L (137-145)
[2016-12-17] MEDS: NORMAL SALINE 1000 ML 1,000 ML IV PRN (18:26)
[2016-12-17] MEDS: INSULIN DETEMIR 100 UNIT/ML 3 ML PEN SUBCUT SCH (21:40)
[2016-12-17] MEDS: TRAZODONE HCL 50 MG TABLET PO SCH (21:40)
[2016-12-18] MEDS: GABAPENTIN 300 MG CAPSULE PO SCH ×4 (00:02→18:48)
[2016-12-18] MEDS: HYDROXYZINE PAMOATE 50 MG CAPSULE PO SCH ×3 (05:55→21:56)
[2016-12-18 06:51] LABS: ABSOLUTE BASOPHILS # (AUTO) 0.1 10^3/uL (0.0-0.2); ABSOLUTE EOSINOPHILS # (AUTO) 0.2 10^3/uL (0.0-0.6); ABSOLUTE MONOCYTES (AUTO) 0.6 10^3/uL (0.1-1.4); ABSOLUTE NEUT (AUTO) 4.7 10^3/uL (1.7-8.2); BASOPHILS % (AUTO) 1.4 % (0-2); EOSINOPHILS % (AUTO) 2.3 % (0-6); HEMATOCRIT 35.7 % (37.9-51.0); HEMOGLOBIN 11.5 g/dL (13.5-17.0); HGB HCT DIFFERENCE -1.2; LYMPHOCYTES % (AUTO) 34.4 % (13-45); MEAN CORPUSCULAR HEMOGLOBIN 23.7 pg (27.0-33.4); MEAN CORPUSCULAR HGB CONC 32.2 g/dL (32.0-36.0); MEAN CORPUSCULAR VOLUME 74 fl (80-97); MONOCYTES % (AUTO) 7.5 % (3-13); RED BLOOD COUNT 4.85 10^6/uL (4.35-5.55); RED CELL DISTRIBUTION WIDTH 16.8 % (11.5-14.0); SEGMENTED NEUTROPHILS % (AUTO) 54.4 % (42-78); WHITE BLOOD COUNT 8.7 10^3/uL (4.0-10.5)
[2016-12-18 07:01] LABS: ALANINE AMINOTRANSFERASE 21 U/L (21-72); ALBUMIN 3.5 g/dL (3.5-5.0); ALKALINE PHOSPHATASE 81 U/L (38-126); ANION GAP 11 (5-19); ASPARTATE AMINO TRANSFERASE 13 U/L (17-59); BILIRUBIN,DIRECT 0.1 mg/dL (0.0-0.4); BILIRUBIN,TOTAL 0.3 mg/dL (0.2-1.3); BLOOD UREA NITROGEN 14 mg/dL (7-20); CALCIUM 9.6 mg/dL (8.4-10.2); CARBON DIOXIDE 26 mmol/L (22-30); CHLORIDE 106 mmol/L (98-107); CREATININE RESULT 1.01 mg/dL (0.52-1.25); GLUCOSE 50 mg/dL (75-110); SODIUM 142.7 mmol/L (137-145); TOTAL PROTEIN 6.3 g/dL (6.3-8.2)
[2016-12-18] MEDS: INSULIN DETEMIR 100 UNIT/ML 3 ML PEN SUBCUT SCH ×2 (09:47→21:57)
[2016-12-18] MEDS: ENOXAPARIN SODIUM INJ 30 MG/0.3 ML DISP.SYRIN SUBCUT SCH (09:47)
[2016-12-18] MEDS: ATENOLOL 50 MG TABLET PO SCH (09:48)
[2016-12-18] MEDS: NORMAL SALINE 1000 ML 1,000 ML IV PRN ×2 (09:48→21:56)
[2016-12-18] MEDS: AMLODIPINE BESYLATE 5 MG TABLET PO SCH (09:48)
[2016-12-18] MEDS: OXYCODONE HCL IR 5 MG TABLET PO PRN ×3 (09:48→21:56)
[2016-12-18] MEDS: INSULIN REG, HUMAN 100 UNIT/ML 3 ML VIAL (PYX) SUBCUT PRN ×2 (11:43→15:48)
[2016-12-18 14:00] LABS: C-PEPTIDE <0.1 ng/mL (1.1-4.4); INSULIN 19.9 uIU/mL (2.6-24.9)
--- NOTE | 2016-12-18 15:42 | PDOC PROGRESS REPORT ---
Subjective Progress Note for:: 12/18/16 Subjective:: And is doing fair patients all blood work is stable denied any chest pain no abdominal pain no nausea no vomiting and the blood sugar is coming down Physical Exam Vital Signs: Temp Pulse Resp BP Pulse Ox 98.2 F 72 16 134/82 H 99 12/18/16 11:57 12/18/16 11:57 12/18/16 11:57 12/18/16 11:57 12/18/16 11:57 Intake & Output 12/17/16 12/18/16 12/19/16 06:59 06:59 06:59 Intake Total 500 1391 Balance 500 1391 Weight 93.2 kg 93.2 kg General appearance: PRESENT: no acute distress, well-developed, well-nourished Head exam: PRESENT: atraumatic, normocephalic Eye exam: PRESENT: conjunctiva pink, EOMI, PERRLA. ABSENT: scleral icterus Ear exam: PRESENT: normal external ear exam Mouth exam: PRESENT: moist, tongue midline Neck exam: PRESENT: full ROM. ABSENT: carotid bruit, JVD, lymphadenopathy, thyromegaly Respiratory exam: PRESENT: clear to auscultation juan ramon Cardiovascular exam: PRESENT: RRR. ABSENT: diastolic murmur, rubs, systolic murmur Pulses: PRESENT: normal dorsalis pedis pul, +2 pedal pulses bilateral Vascular exam: PRESENT: normal capillary refill GI/Abdominal exam: PRESENT: normal bowel sounds, soft. ABSENT: distended, guarding, mass, organolmegaly, rebound, tenderness Rectal exam: PRESENT: deferred Neurological exam: PRESENT: alert, awake, oriented to person, oriented to place , oriented to time, oriented to situation, CN II-XII grossly intact. ABSENT: motor sensory deficit Psychiatric exam: PRESENT: appropriate affect, normal mood. ABSENT: homicidal ideation, suicidal ideation Skin exam: PRESENT: dry, intact, warm. ABSENT: cyanosis, rash Results Laboratory Results: 12/18/16 05:53 12/18/16 05:53 12/17/16 12/17/16 12/18/16 13:37 17:00 05:53 WBC 8.7 RBC 4.85 Hgb 11.5 L Hct 35.7 L MCV 74 L MCH 23.7 L MCHC 32.2 RDW 16.8 H Plt Count 333 Seg Neutrophils % 54.4 Lymphocytes % 34.4 Monocytes % 7.5 Eosinophils % 2.3 Basophils % 1.4 Absolute Neutrophils 4.7 Absolute Lymphocytes 3.0 Absolute Monocytes 0.6 Absolute Eosinophils 0.2 Absolute Basophils 0.1 Sodium 138.4 Potassium 4.4 Chloride 101 Carbon Dioxide 23 Anion Gap 14 BUN 18 Creatinine 1.07 Est GFR ( Amer) > 60 Est GFR (Non-Af Amer) > 60 Glucose 199 H C-Peptide <0.1 L Calcium 9.5 Total Bilirubin AST ALT Alkaline Phosphatase Total Protein Albumin 12/18/16 05:53 WBC RBC Hgb Hct MCV MCH MCHC RDW Plt Count Seg Neutrophils % Lymphocytes % Monocytes % Eosinophils % Basophils % Absolute Neutrophils Absolute Lymphocytes Absolute Monocytes Absolute Eosinophils Absolute Basophils Sodium 142.7 Potassium 4.0 Chloride 106 Carbon Dioxide 26 Anion Gap 11 BUN 14 Creatinine 1.01 Est GFR ( Amer) > 60 Est GFR (Non-Af Amer) > 60 Glucose 50 L C-Peptide Calcium 9.6 Total Bilirubin 0.3 AST 13 L ALT 21 Alkaline Phosphatase 81 Total Protein 6.3 Albumin 3.5 12/16/16 16:30 Clean Catch Midstream Urine Culture - Final NO GROWTH 2 DAYS 12/16/16 12/16/16 12/16/16 16:50 16:50 22:55 Creatine Kinase 89 75 CK-MB (CK-2) 0.45 Troponin I < 0.012 NT-Pro-B Natriuret Pep 12/16/16 12/17/16 12/17/16 22:55 04:50 04:50 Creatine Kinase 66 CK-MB (CK-2) 0.47 0.42 Troponin I < 0.012 < 0.012 NT-Pro-B Natriuret Pep 80 12/18/16 05:53 Creatine Kinase CK-MB (CK-2) Troponin I NT-Pro-B Natriuret Pep 33 Assessment & Plan - Diagnosis (1) Diabetic hyperosmolar non-ketotic state Is this a current diagnosis for this admission?: YesPlan: All resolving I think patient have a lot of issues with the family and not a place to live and I think that is the reason the patient is not taking the medicines as prescribed and not watching the diet will consult the social services coordinator to see what help the patient's skin able to get it (2) H/O medication noncompliance Is this a current diagnosis for this admission?: YesPlan: Due to the all the family situations (3) Hyperglycemia due to type 1 diabetes mellitus Is this a current diagnosis for this admission?: YesPlan: All resolving (4) Hypertension Qualifiers: Hypertension type: essential hypertension Qualified Code(s): I10 - Essential (primary) hypertension Is this a current diagnosis for this admission?: YesPlan: Stable - Time Time Spent with patient: 15-24 minutes Medications reviewed and adjusted accordingly: Yes Anticipated discharge: Home Within: within 24 hours - Inpatient Certification Medical Necessity: Need For IV Fluids Post Hospital Care: D/C [employer] Documentation - Plan Summary Plan Summary: Adjust the insulin continues to current medications
[2016-12-18] MEDS: TRAZODONE HCL 50 MG TABLET PO SCH (21:56)
[2016-12-19] MEDS: GABAPENTIN 300 MG CAPSULE PO SCH ×5 (06:05→23:52)
[2016-12-19] MEDS: HYDROXYZINE PAMOATE 50 MG CAPSULE PO SCH ×3 (06:05→21:47)
[2016-12-19] MEDS: OXYCODONE HCL IR 5 MG TABLET PO PRN ×3 (07:41→20:30)
[2016-12-19] MEDS: ENOXAPARIN SODIUM INJ 30 MG/0.3 ML DISP.SYRIN SUBCUT SCH (07:42)
[2016-12-19] MEDS: INSULIN DETEMIR 100 UNIT/ML 3 ML PEN SUBCUT SCH (07:52)
[2016-12-19] MEDS: INSULIN REG, HUMAN 100 UNIT/ML 3 ML VIAL (PYX) SUBCUT PRN ×3 (07:53→16:58)
[2016-12-19] MEDS ORDERED: INSULIN DETEMIR 100 UNIT/ML 3 ML PEN SUBCUT SCH (08:40)
[2016-12-19] MEDS: ATENOLOL 50 MG TABLET PO SCH (09:22)
[2016-12-19] MEDS: AMLODIPINE BESYLATE 5 MG TABLET PO SCH (09:22)
--- NOTE | 2016-12-19 10:06 | PDOC PROGRESS REPORT ---
Subjective Progress Note for:: 12/19/16 Subjective:: Chest is currently doing well patient will one episode of middle the night with the blood sugar was low but other than that other blood sugar is pretty stable. Patient still have a no placed live and I think that's the reason patient's coming back in the hospitalist and not taking the medications Patient's have a consult the neonatal social worker to maybe see a some shletert options Physical Exam Vital Signs: Temp Pulse Resp BP Pulse Ox 97.9 F 82 14 153/94 H 99 12/19/16 07:24 12/19/16 07:24 12/19/16 07:24 12/19/16 07:24 12/19/16 07:24 Intake & Output 12/18/16 12/19/16 12/20/16 06:59 06:59 06:59 Intake Total 1391 3680 Balance 1391 3680 Weight 93.2 kg 93.2 kg General appearance: PRESENT: no acute distress, well-developed, well-nourished Head exam: PRESENT: atraumatic, normocephalic Eye exam: PRESENT: conjunctiva pink, EOMI, PERRLA. ABSENT: scleral icterus Ear exam: PRESENT: normal external ear exam Mouth exam: PRESENT: moist, tongue midline Neck exam: PRESENT: full ROM. ABSENT: carotid bruit, JVD, lymphadenopathy, thyromegaly Cardiovascular exam: PRESENT: RRR. ABSENT: diastolic murmur, rubs, systolic murmur Pulses: PRESENT: normal dorsalis pedis pul, +2 pedal pulses bilateral Vascular exam: PRESENT: normal capillary refill GI/Abdominal exam: PRESENT: normal bowel sounds, soft. ABSENT: distended, guarding, mass, organolmegaly, rebound, tenderness Rectal exam: PRESENT: deferred Neurological exam: PRESENT: alert, awake, oriented to person, oriented to place , oriented to time, oriented to situation, CN II-XII grossly intact. ABSENT: motor sensory deficit Psychiatric exam: PRESENT: appropriate affect, normal mood. ABSENT: homicidal ideation, suicidal ideation Skin exam: PRESENT: dry, intact, warm. ABSENT: cyanosis, rash Results Laboratory Results: 12/18/16 05:53 12/18/16 05:53 12/17/16 13:37 C-Peptide <0.1 L 12/16/16 16:30 Clean Catch Midstream Urine Culture - Final NO GROWTH 2 DAYS 12/16/16 12/16/16 12/16/16 16:50 16:50 22:55 Creatine Kinase 89 75 CK-MB (CK-2) 0.45 Troponin I < 0.012 NT-Pro-B Natriuret Pep 12/16/16 12/17/16 12/17/16 22:55 04:50 04:50 Creatine Kinase 66 CK-MB (CK-2) 0.47 0.42 Troponin I < 0.012 < 0.012 NT-Pro-B Natriuret Pep 80 12/18/16 05:53 Creatine Kinase CK-MB (CK-2) Troponin I NT-Pro-B Natriuret Pep 33 Assessment & Plan - Diagnosis (1) Diabetic hyperosmolar non-ketotic state Is this a current diagnosis for this admission?: YesPlan: All resolving I think patient have a lot of issues with the family and not a place to live and I think that is the reason the patient is not taking the medicines as prescribed and not watching the diet will consult the neonatal social worker to see what help the patient's skin able to get it (2) H/O medication noncompliance Is this a current diagnosis for this admission?: YesPlan: Due to the all the family situations (3) Hyperglycemia due to type 1 diabetes mellitus Is this a current diagnosis for this admission?: YesPlan: All resolving (4) Hypertension Qualifiers: Hypertension type: essential hypertension Qualified Code(s): I10 - Essential (primary) hypertension Is this a current diagnosis for this admission?: Yes - Inpatient Certification Medical Necessity: Need Close Monitoring Due to Risk of Patient Decompensation Post Hospital Care: D/C Plumber'S Helper Documentation - Plan Summary Plan Summary: Discussed with the patient's to eat some snacks before going to the bed to prevent the hypoglycemia and also reduce the dose of the medications 25 minutes at night
[2016-12-19] MEDS: TRAZODONE HCL 50 MG TABLET PO SCH (21:47)
[2016-12-20] MEDS: GABAPENTIN 300 MG CAPSULE PO SCH ×4 (06:24→23:17)
[2016-12-20] MEDS: HYDROXYZINE PAMOATE 50 MG CAPSULE PO SCH ×3 (06:24→21:33)
[2016-12-20] MEDS: ENOXAPARIN SODIUM INJ 30 MG/0.3 ML DISP.SYRIN SUBCUT SCH (07:36)
[2016-12-20] MEDS: INSULIN DETEMIR 100 UNIT/ML 3 ML PEN SUBCUT SCH (07:41)
[2016-12-20] MEDS: INSULIN REG, HUMAN 100 UNIT/ML 3 ML VIAL (PYX) SUBCUT PRN ×3 (07:41→17:00)
[2016-12-20] MEDS: OXYCODONE HCL IR 5 MG TABLET PO PRN ×3 (07:43→23:17)
[2016-12-20] MEDS ORDERED: INSULIN DETEMIR 100 UNIT/ML 3 ML PEN SUBCUT SCH ×2 (08:30→22:00)
[2016-12-20] MEDS: AMLODIPINE BESYLATE 5 MG TABLET PO SCH (09:18)
[2016-12-20] MEDS: ATENOLOL 50 MG TABLET PO SCH (09:18)
--- NOTE | 2016-12-20 13:02 | PDOC PROGRESS REPORT ---
Subjective Progress Note for:: 12/20/16 Subjective:: Patient is doing fair patient's blood sugar was running down in the middle of the nights but other than that patient's other blood sugar was stable. Patient still have a new place to live and I think that is the biggest problem with the patient's right now to not controlling the sugar Physical Exam Vital Signs: Temp Pulse Resp BP Pulse Ox 97.6 F 72 18 151/94 H 100 12/20/16 12:00 12/20/16 12:00 12/20/16 12:00 12/20/16 12:00 12/20/16 12:00 Intake & Output 12/19/16 12/20/16 12/21/16 06:59 06:59 06:59 Intake Total 3680 1645 Balance 3680 1645 Weight 93.2 kg 94.2 kg General appearance: PRESENT: no acute distress, well-developed, well-nourished Head exam: PRESENT: atraumatic, normocephalic Eye exam: PRESENT: conjunctiva pink, EOMI, PERRLA. ABSENT: scleral icterus Ear exam: PRESENT: normal external ear exam Mouth exam: PRESENT: moist, tongue midline Neck exam: PRESENT: full ROM. ABSENT: carotid bruit, JVD, lymphadenopathy, thyromegaly Respiratory exam: PRESENT: clear to auscultation juan ramon Cardiovascular exam: PRESENT: RRR. ABSENT: diastolic murmur, rubs, systolic murmur Pulses: PRESENT: normal dorsalis pedis pul, +2 pedal pulses bilateral Vascular exam: PRESENT: normal capillary refill GI/Abdominal exam: PRESENT: normal bowel sounds, soft. ABSENT: distended, guarding, mass, organolmegaly, rebound, tenderness Rectal exam: PRESENT: deferred Neurological exam: PRESENT: alert, awake, oriented to person, oriented to place , oriented to time, oriented to situation, CN II-XII grossly intact. ABSENT: motor sensory deficit Psychiatric exam: PRESENT: appropriate affect, normal mood. ABSENT: homicidal ideation, suicidal ideation Skin exam: PRESENT: dry, intact, warm. ABSENT: cyanosis, rash Results Laboratory Results: 12/18/16 05:53 12/18/16 05:53 12/16/16 12/16/16 12/16/16 16:50 16:50 22:55 Creatine Kinase 89 75 CK-MB (CK-2) 0.45 Troponin I < 0.012 NT-Pro-B Natriuret Pep 12/16/16 12/17/16 12/17/16 22:55 04:50 04:50 Creatine Kinase 66 CK-MB (CK-2) 0.47 0.42 Troponin I < 0.012 < 0.012 NT-Pro-B Natriuret Pep 80 12/18/16 05:53 Creatine Kinase CK-MB (CK-2) Troponin I NT-Pro-B Natriuret Pep 33 Assessment & Plan - Diagnosis (1) Diabetic hyperosmolar non-ketotic state Is this a current diagnosis for this admission?: YesPlan: All resolved (2) H/O medication noncompliance Is this a current diagnosis for this admission?: YesPlan: At this point patient's does not have any place to leave and no other family member except his but she is living with somebody else and I think that is the reason patient is coming back and forth from the hospital and not taking medications as prescribed and not watching the diet because unable to do it I do not know what else we can offer this patient at this point (3) Hyperglycemia due to type 1 diabetes mellitus Is this a current diagnosis for this admission?: YesPlan: All resolving (4) Hypertension Qualifiers: Hypertension type: essential hypertension Qualified Code(s): I10 - Essential (primary) hypertension Is this a current diagnosis for this admission?: Yes - Time Time Spent with patient: 15-24 minutes Medications reviewed and adjusted accordingly: Yes Anticipated discharge: Home Within: within 24 hours - Inpatient Certification Medical Necessity: Need Close Monitoring Due to Risk of Patient Decompensation Post Hospital Care: D/C Fisheries Management Biologist Documentation - Plan Summary Plan Summary: Again discussed with the nurses to find out from the director social see what the health clinic and able to provide the patient'sPatient's having no place to go to the [facility] Reduce the nighttime Levemir dose to prevent the hypoglycemia
[2016-12-20] MEDS: TRAZODONE HCL 50 MG TABLET PO SCH (21:33)
[2016-12-21] MEDS: GABAPENTIN 300 MG CAPSULE PO SCH (06:14)
[2016-12-21] MEDS: HYDROXYZINE PAMOATE 50 MG CAPSULE PO SCH (06:14)
[2016-12-21] MEDS: OXYCODONE HCL IR 5 MG TABLET PO PRN (08:27)
[2016-12-21] MEDS: INSULIN DETEMIR 100 UNIT/ML 3 ML PEN SUBCUT SCH (08:27)
[2016-12-21] MEDS: ENOXAPARIN SODIUM INJ 30 MG/0.3 ML DISP.SYRIN SUBCUT SCH (08:30)
[2016-12-21] MEDS: INSULIN REG, HUMAN 100 UNIT/ML 3 ML VIAL (PYX) SUBCUT PRN (08:31)
[2016-12-21] MEDS: ATENOLOL 50 MG TABLET PO SCH (09:11)
[2016-12-21] MEDS: AMLODIPINE BESYLATE 5 MG TABLET PO SCH (09:11)
[2016-12-21 10:19] VITALS: BP 152/97
--- NOTE | 2016-12-21 14:00 | PDOC DISCHARGE SUMMARY ---
General - Admit/Disc Date/PCP Admission Date/Primary Care Provider: 12/16/16 15:52 MITCHELL SALGUERO MD Discharge Date: 12/21/16 - Discharge Diagnosis (1) Diabetic hyperosmolar non-ketotic state Is this a current diagnosis for this admission?: YesSummary: All resolved (2) H/O medication noncompliance Is this a current diagnosis for this admission?: YesSummary: Unfortunately patient have a lot of family situations and discussed with the social service manager and try to as possible as we can help but I think patient is currently say he will find some family friend which may be helping (3) Hyperglycemia due to type 1 diabetes mellitus Is this a current diagnosis for this admission?: YesSummary: All stable patient is to follow-up with the councilperson as outpatients (4) Hypertension Is this a current diagnosis for this admission?: YesSummary: Currently stable - Additional Information Resuscitation Status: Full Code Discharge Activity: Activity As Tolerated Home Medications: Amlodipine Besylate [Norvasc 5 mg Tablet] 5 mg PO DAILY 12/16/16 Atenolol [Tenormin] 25 mg PO DAILY 12/16/16 Gabapentin [Neurontin 300 mg Capsule] 300 mg PO Q6 12/16/16 Hydroxyzine Pamoate [Vistaril 50 mg Capsule] 50 mg PO Q8 12/16/16 Trazodone HCl [Desyrel] 100 mg PO QHS 12/16/16 Insulin Aspart [Novolog Flexpen] 0 unit SQ .PERSLIDINGSCALE #3 12/21/16 Insulin Detemir [Levemir Flextouch] 20 unit SQ BID #3 12/21/16 History of Present Illness History of Present Illness: LENA SCHULZ is a 31 year old male This 31-year-old male basically admitted for the hyperglycemia without ketoacidosis and the patient's was put on insulin drip and's switched to the subcu insulin and patient's at this point most likely because of a noncompliance with the medications and noncompliance with the diet and this is ongoing problem for the last several months. And patient's at this points really have a big challenge for his home situations Hospital Course Hospital Course: Patient was admitting in the hospital for the hyperglycemia without ketoacidosis and patient was given the subcu insulin's and adjust the insulin' s. Patient have a couple of low sugar at nighttime which adjust the insulin and advised the patient's to eat snacks before go to the bed. Patient was currently put on a sliding scale and the Levemir insulin. Continues to other home medications. Patient's discussed with the patient about to follow with the councilperson with this uncontrolled hyper glycemia and the patient understand very well about that. Patient's missed a several appointment in the past in my office and even the councilperson. Discussed with the the past several times and unfortunately the patient's currently have a no other family member and unfortunately patient is not working and really patient is very noncompliance. Will discuss to try to find out the [facility] home and given number about the [facility] home to. Patient was given all the new prescriptions todayAnd I hope the patient's continues to be take the medicines. Physical Exam Vital Signs: Temp Pulse Resp BP Pulse Ox 97.6 F 66 16 129/76 H 99 12/21/16 08:03 12/21/16 08:03 12/21/16 08:03 12/21/16 08:03 12/21/16 08:03 Intake & Output 12/20/16 12/21/16 12/22/16 06:59 06:59 06:59 Intake Total 1645 1197 Balance 1645 1197 Weight 94.2 kg 92.4 kg General appearance: PRESENT: no acute distress, well-developed, well-nourished Head exam: PRESENT: atraumatic, normocephalic Eye exam: PRESENT: conjunctiva pink, EOMI, PERRLA. ABSENT: scleral icterus Ear exam: PRESENT: normal external ear exam Mouth exam: PRESENT: moist, tongue midline Neck exam: PRESENT: full ROM. ABSENT: carotid bruit, JVD, lymphadenopathy, thyromegaly Respiratory exam: PRESENT: clear to auscultation juan ramon Cardiovascular exam: PRESENT: RRR. ABSENT: diastolic murmur, rubs, systolic murmur Pulses: PRESENT: normal dorsalis pedis pul, +2 pedal pulses bilateral Vascular exam: PRESENT: normal capillary refill GI/Abdominal exam: PRESENT: normal bowel sounds, soft. ABSENT: distended, guarding, mass, organolmegaly, rebound, tenderness Rectal exam: PRESENT: deferred Neurological exam: PRESENT: alert, awake, oriented to person, oriented to place , oriented to time, oriented to situation, CN II-XII grossly intact. ABSENT: motor sensory deficit Psychiatric exam: PRESENT: appropriate affect, normal mood. ABSENT: homicidal ideation, suicidal ideation Skin exam: PRESENT: dry, intact, warm. ABSENT: cyanosis, rash Results Laboratory Results: 12/18/16 05:53 12/18/16 05:53 12/16/16 12/16/16 12/16/16 16:50 16:50 22:55 Creatine Kinase 89 75 CK-MB (CK-2) 0.45 Troponin I < 0.012 NT-Pro-B Natriuret Pep 12/16/16 12/17/16 12/17/16 22:55 04:50 04:50 Creatine Kinase 66 CK-MB (CK-2) 0.47 0.42 Troponin I < 0.012 < 0.012 NT-Pro-B Natriuret Pep 80 12/18/16 05:53 Creatine Kinase CK-MB (CK-2) Troponin I NT-Pro-B Natriuret Pep 33 Plan Time Spent: Greater than 30 Minutes - Patient's otherwise p.o. intake is good patient having no hypoglycemia overnight and blood sugar is slowly coming down. Patient's walk in the hallway without any problems and discharged home with the stable conditions. If the patient's continues to take the medicine as prescribed I think it should be work and follow outpatients councilperson for further evaluations for similar further any input
== END 2016-12-21 11:18 | disposition home or self-care (01) | DRG 639 ==
LOC: ER 11:29 → EH 14:54 → OBSVTOIN 15:52 → 5 19:55
PROVIDERS: ADMIT Family Medicine; ATTEND Family Medicine
DX: E10.65 Type 1 diabetes mellitus with hyperglycemia (principal); Z91.14 Patient's other noncompliance with medication regimen; I10 Essential (primary) hypertension; Z79.4 Long term (current) use of insulin; F32.9 Major depressive disorder, single episode, unspecified; F41.9 Anxiety disorder, unspecified; Z79.899 Other long term (current) drug therapy
CPT/HCPCS: 36415; 80048; 80053; 80076; 80307; 81001; 82140; 82150; 82550; 82553; 82962; 83036; 83525; 83690; 83735; 83880; 84100; 84439; 84443; 84484; 84681; 85025; 85610; 85730; 87086; 93005; 93010; 99284; J1650; J1815; J7030

== ENCOUNTER 2016-12-21 19:43 | Emergency (ER) | payer MEDICAID ==
[2016-12-21 20:35] LABS: APPEARANCE,URINE CLEAR; BILIRUBIN,URINE NEGATIVE (NEGATIVE); GLUCOSE, URINE >=500 mg/dL (NEGATIVE); KETONES,URINE NEGATIVE (NEGATIVE); LEUKOCYTE ESTERASE,URINE NEGATIVE (NEGATIVE); NITRITE,URINE NEGATIVE (NEGATIVE); PROTEIN,URINE >=500 mg/dL (NEGATIVE); URINE SPECIFIC GRAVITY 1.012; UROBILINOGEN,URINE NEGATIVE mg/dL (<2.0)
[2016-12-21 20:50] LABS: URINE BARBITURATES SCREEN NEGATIVE; URINE METHADONE SCREEN NEGATIVE; URINE OPIATES LOW NEGATIVE; URINE PHENCYCLIDINE SCREEN NEGATIVE
[2016-12-21 20:54] LABS: VENOUS BLOOD PCO2 44.2 mmHg (35-63); VENOUS BLOOD PH 7.42 (7.30-7.42)
[2016-12-21 20:59] LABS: ABSOLUTE BASOPHILS # (AUTO) 0.1 10^3/uL (0.0-0.2); ABSOLUTE EOSINOPHILS # (AUTO) 0.1 10^3/uL (0.0-0.6); ABSOLUTE LYMPHOCYTES (AUTO) 1.9 10^3/uL (0.5-4.7); ABSOLUTE MONOCYTES (AUTO) 0.7 10^3/uL (0.1-1.4); BASOPHILS % (AUTO) 0.8 % (0-2); EOSINOPHILS % (AUTO) 0.6 % (0-6); HEMATOCRIT 35.1 % (37.9-51.0); HEMOGLOBIN 11.1 g/dL (13.5-17.0); HGB HCT DIFFERENCE -1.8; LYMPHOCYTES % (AUTO) 13.6 % (13-45); MEAN CORPUSCULAR HEMOGLOBIN 23.6 pg (27.0-33.4); MEAN CORPUSCULAR HGB CONC 31.8 g/dL (32.0-36.0); MEAN CORPUSCULAR VOLUME 74 fl (80-97); MONOCYTES % (AUTO) 5.3 % (3-13); RED BLOOD COUNT 4.72 10^6/uL (4.35-5.55); RED CELL DISTRIBUTION WIDTH 16.8 % (11.5-14.0); SEGMENTED NEUTROPHILS % (AUTO) 79.7 % (42-78); WHITE BLOOD COUNT 13.8 10^3/uL (4.0-10.5)
[2016-12-21 21:11] LABS: ALANINE AMINOTRANSFERASE 29 U/L (21-72); ALBUMIN 3.7 g/dL (3.5-5.0); ALKALINE PHOSPHATASE 82 U/L (38-126); ANION GAP 12 (5-19); ASPARTATE AMINO TRANSFERASE 22 U/L (17-59); BILIRUBIN,DIRECT 0.3 mg/dL (0.0-0.4); BILIRUBIN,TOTAL 0.3 mg/dL (0.2-1.3); BLOOD UREA NITROGEN 18 mg/dL (7-20); CALCIUM 9.7 mg/dL (8.4-10.2); CARBON DIOXIDE 26 mmol/L (22-30); CHLORIDE 103 mmol/L (98-107); CREATININE RESULT 1.19 mg/dL (0.52-1.25); GLUCOSE 227 mg/dL (75-110); POTASSIUM 4.2 mmol/L (3.6-5.0); SODIUM 141.3 mmol/L (137-145); TOTAL PROTEIN 6.8 g/dL (6.3-8.2)
[2016-12-21 21:13] LABS: ALCOHOL < 10 mg/dL (NONE DETECTED)
[2016-12-21] MEDS ORDERED: DEXTROSE 40% GEL 15 GM TUBE PO PRN ×2 (21:15)
[2016-12-21] MEDS ORDERED: GLUCAGON,HUMAN RECOMB 1 MG INJ IM PRN (21:15)
[2016-12-21] MEDS ORDERED: DEXTROSE 50%-WATER 25 GM/50 ML DISP.SYRIN IV PRN ×2 (21:15)
[2016-12-21] MEDS ORDERED: DIAZEPAM 5 MG TABLET PO ONE (21:16)
--- NOTE | 2016-12-21 21:21 | ER Document Report ---
ED General - General Chief Complaint: Suicidal Ideation Stated Complaint: SUICIDAL IDEATIONS Notes: Patient is a 31-year-old male with past medical history of depression, anxiety, prior suicide attempts who presents with suicidal ideation. States his depression has been getting progressively worse the last 7 months and he is not currently on anything to treat his depression. States that over the last several days he has had progressively worsening suicidal ideation with plan to stab himself. States he has tempted to harm himself in the past has required hospitalization. Nothing has triggered today's episode. He denies any symptoms to worsen his symptoms. He has not had any vomiting or diarrhea. Denies any chest pain or shortness of breath. States his blood sugars have been relatively controlled at home and his last blood sugar was in the low 200s. He has been taking insulin as directed. He was sent from his primary care doctor's office after complaining of suicidal ideation today. He denies any acute medical complaint TRAVEL OUTSIDE OF THE [place] IN LAST 30 DAYS: No - Related Data Allergies/Adverse Reactions: No Known Allergies Allergy (Verified 11/22/16 11:39) Past Medical History - General Information source: Patient - Social History Smoking Status: Never Smoker Frequency of alcohol use: None Drug Abuse: None Lives with: Spouse/Significant other Family History: DM, Hypertension - Past Medical History Cardiac Medical History: Reports: Hx Hypertension Pulmonary Medical History: Reports: Hx Asthma - as child, Hx COPD Neurological Medical History: Reports: Hx Migraine Endocrine Medical History: Reports: Hx Diabetes Mellitus Type 1, Hx Diabetes Mellitus Type 2 Psychiatric Medical History: Reports: Hx Anxiety, Hx Depression - and anxiety Past Surgical History: Reports: Hx Appendectomy, Hx Oral Surgery - wisdom teeth - Immunizations Hx Diphtheria, Pertussis, Tetanus Vaccination: Yes Hx Pneumococcal Vaccination: 09/16/00 Review of Systems - Review of Systems Notes: Constitutional: Negative for fever. HENT: Negative for sore throat. Eyes: Negative for visual changes. Cardiovascular: Negative for chest pain. Respiratory: Negative for shortness of breath. Gastrointestinal: Negative for abdominal pain, vomiting or diarrhea. Genitourinary: Negative for dysuria. Musculoskeletal: Negative for back pain. Skin: Negative for rash. Neurological: Negative for headaches, weakness or numbness. 10 point ROS negative except as marked above and in HPI. Physical Exam - Vital signs Interpretation: Normal Notes: PHYSICAL EXAMINATION: GENERAL: Well-appearing, well-nourished and in no acute distress. HEAD: Atraumatic, normocephalic. EYES: Pupils equal round and reactive to light, extraocular movements intact, sclera anicteric, conjunctiva are normal. ENT: nares patent, oropharynx clear without exudates. Moist mucous membranes. NECK: Normal range of motion, supple without lymphadenopathy LUNGS: Breath sounds clear to auscultation bilaterally and equal. No wheezes rales or rhonchi. HEART: Regular rate and rhythm without murmurs ABDOMEN: Soft, nontender, normoactive bowel sounds. No guarding, no rebound. No masses appreciated. EXTREMITIES: Normal range of motion, no pitting or edema. No cyanosis. NEUROLOGICAL: No focal neurological deficits. Moves all extremities spontaneously and on command. PSYCH: Tearful, poor eye contact. SKIN: Warm, Dry, normal turgor, no rashes or lesions noted. Course - Re-evaluation Re-evalutation: 12/21/16 21:17 Patient presents with suicidal ideation with a plan to kill himself using a knife. He has presented multiple times in the past for similar concerns. Continues suicidal at this time. Patient does have a history of poorly controlled diabetes although he is not DKA or HHS to today with only minimal hyperglycemia. He is medically cleared for evaluation by psychiatry in the morning. Sliding scale insulin has been ordered. - Laboratory Result Diagrams: 12/21/16 20:47 12/21/16 20:47 Laboratory results interpreted by me: 12/21/16 12/21/16 12/21/16 20:20 20:47 20:47 WBC 13.8 H Hgb 11.1 L Hct 35.1 L MCV 74 L MCH 23.6 L MCHC 31.8 L RDW 16.8 H Seg Neutrophils % 79.7 H Absolute Neutrophils 11.0 H Glucose 227 H POC Glucose Urine Protein >=500 H Urine Glucose (UA) >=500 H Salicylates < 1.0 L Acetaminophen < 10 L 12/22/16 01:19 WBC Hgb Hct MCV MCH MCHC RDW Seg Neutrophils % Absolute Neutrophils Glucose POC Glucose 388 H Urine Protein Urine Glucose (UA) Salicylates Acetaminophen - EKG Interpretation by Me Additional EKG results interpreted by me: 12/22/16 03:58 Normal sinus rhythm. Rate 85. No ST elevations or depressions. EDC is 438. Discharge - Discharge Clinical Impression: Hyperglycemia, Suicidal ideation Condition: Good Disposition: PSYCH HOSP/UNIT Referrals: MITCHELL SALGUERO MD [Primary Care Provider] - Follow up as needed
--- NOTE | 2016-12-21 22:32 | EKG REPORT ---
SEVERITY:- BORDERLINE ECG - SINUS RHYTHM BORDERLINE T WAVE ABNORMALITIES : Confirmed by: Arin Drummond MD 21-Dec-2016 22:30:33
[2016-12-22] MEDS: GABAPENTIN 300 MG CAPSULE PO SCH ×2 (01:40→11:40)
[2016-12-22] MEDS: INSULIN LISPRO 100 UNIT/ML 3 ML VIAL SUBCUT PRN ×3 (01:40→11:49)
[2016-12-22] MEDS ORDERED: ACETAMINOPHEN 325 MG TABLET PO ONE (01:58)
[2016-12-22] MEDS ORDERED: ACETAMINOPHEN 325 MG TABLET ONE ×2 (02:07→08:28)
[2016-12-22] MEDS ORDERED: HYDROXYZINE PAMOATE 50 MG CAPSULE PO SCH (06:00)
--- NOTE | 2016-12-22 09:18 | ER Document Report ---
Doctor's Note Notes: 12/22/16 09:18 Patient's ER notes were reviewed. Nursing staff states no overnight events. Patient is currently resting currently. Lab work and vital signs have been reviewed. Patient stable for disposition
[2016-12-22] MEDS ORDERED: AMLODIPINE BESYLATE 5 MG TABLET PO SCH (10:00)
[2016-12-22] MEDS ORDERED: ATENOLOL 50 MG TABLET PO SCH (10:00)
[2016-12-22] MEDS ORDERED: INSULIN DETEMIR 100 UNIT/ML 3 ML PEN SUBCUT SCH (10:00)
--- NOTE | 2016-12-22 11:35 | PSYCHOLOGICAL NOTE ---
Psych Note - Psych Note Psych Note: Patient is a 31-year-old male with past medical history of depression, anxiety, prior suicide attempts who presents with suicidal ideation. States his depression has been getting progressively worse the last 7 months and he is not currently on anything to treat his depression. States that over the last several days he has had progressively worsening suicidal ideation with plan to stab himself. States he has tempted to harm himself in the past has required hospitalization. Nothing has triggered today's episode. He denies any symptoms to worsen his symptoms. Patient states that he is not doing well. He continued to disclose that a lot of things are going on and he is not taking his medication like he is supposed to; Clinician notes the patient stated he was medication compliant to attending ED physician. He continued disclosed that he attempted to kill himself 2 days ago but it didn't work; Clinician notes patient was inpatient here at [facility] for medical from 12/16/2016- 12/22/2015. Patient disclosed that he took a sheet and tied around his neck but his friend stopped him. He denies losing consciousness. Patient continued to state that he has a plan of using any sharp object on himself or others. Patient continued to disclose that he used to go to [facility] but has been a couple months that he has gone because he has difficulty finding transportation. Patient states that he went to [place] when he was approximately 15 years old denies further stays. Patient states he is currently living "bed to bed." Patient is alert and orientated to person place time and circumstance. Mood is dysphoric with restricted affect. Patient states he is suicidal and homicidal. Patient endorses auditory hallucinations; no delusions are noted. Thought processes logical organized and linear. Thought content is surrounding needing in patient/fci. Conversational speech was within normal rate tone and prosody. Eye contact was fair. Intellectual abilities appear to be within average range. Attention and concentration are good. Insight, judgment, impulse control are poor. 311(F32.9) unspecified depressive disorder per history provided by patient 300.00 (F41.9) unspecified anxiety disorder per history provided by patient Impression\\plan: Patient is psychiatrically cleared for discharge. Patient endorses suicidal and homicidal ideation and denies ever having issues with hallucinations. Clinician notes that the patient has been seen in the past for complaints of hallucinations. Clinician notes patient is not observed to be responding to internal stimuli, has no difficulties carrying on a conversation, and is never distracted or pausing during talking. Patient identifies hearing the voices "all the time" during past evaluations but then changes his statement stating he hears them "on and off" or "every couple hours." Clinician notes that patient has been in [facility] ED 11/16-11/17, 11/18-11/21,11/21-11/22, 12/09-, 12/16-12/21. Patient has repeatedly changed his story and collateral information also does not match. Patient is currently homeless and is noncomplient with his medications. Patient was seen by Behavioral Health Team on 11/20 at which time the patient stated he did not have depression and did not want to participate in the evaluation. Patient has demonstrated a pattern of behaviour that is congruent to attempting to achieve secondary gain; possibly food and fci. The patient did not follow up with [facility] as requested on 11/16. The patient has disclosed concerns for mental health only when attempting to achieve his secondary gain. On 12/09/2016 Patient came to [facility] ED stating he was vomiting blood. It was later identified that the patient changed his statement; "Upon surgical consult patient now states that he was drinking red Powerade for his transportation by EMS denies vomiting blood. Multiple nursing staff and EMS record in the chart the patient states he was vomiting blood." Patient was discharged yesterday 12/22/2015 at 1355, after a 5 day stay in the hospital for noncompliance with his diabetic needs; patient came back in at 2117 stating he was suicidal and had been for the last 7 months. Patient has show extensive means to include escalating events for achieving his secondary gain and continues to use inappropriate resources for housing. Dr. Waller was consulted on the care and management of this patient; tending physician is in agreement with recommendations and disposition.
--- NOTE | 2016-12-22 11:53 | ER Document Report ---
ED Psych Disorder / Suicide - General Mode of Arrival: Ambulatory Information source: Patient TRAVEL OUTSIDE OF THE [place] IN LAST 30 DAYS: No - HPI Patient complains to provider of: Suicidal plan - Patient states mulitple plans Onset was: Cannot confirm Suicide Risk Factors: Male, Other - noncomplient with medications for medical needs Situational problems related to: Spouse, Other - homelessness Normal mood: Yes Associated symptoms: Depressed <JUS NAJERA - Last Filed: 12/22/16 11:54> <CHANNING VALVERDE - Last Filed: 12/22/16 12:08> - General Chief Complaint: Suicidal Ideation Stated Complaint: SUICIDAL IDEATIONS - HPI Notes: Patient is psychiatrically cleared for discharge. Patient endorses suicidal and homicidal ideation and denies ever having issues with hallucinations. Clinician notes that the patient has been seen in the past for complaints of hallucinations. Clinician notes patient is not observed to be responding to internal stimuli, has no difficulties carrying on a conversation, and is never distracted or pausing during talking. Patient identifies hearing the voices "all the time" during past evaluations but then changes his statement stating he hears them "on and off" or "every couple hours." Clinician notes that patient has been in [facility] ED 11/16-11/17, 11/18-11/21,11/21-11/22, 12/09-, 12/16-12/21. Patient has repeatedly changed his story and collateral information also does not match. Patient is currently homeless and is noncomplient with his medications. Patient was seen by Behavioral Health Team on 11/20 at which time the patient stated he did not have depression and did not want to participate in the evaluation. Patient has demonstrated a pattern of behaviour that is congruent to attempting to achieve secondary gain; possibly food and skilled nursing. The patient did not follow up with [facility] as requested on 11/16. The patient has disclosed concerns for mental health only when attempting to achieve his secondary gain. On 12/09/2016 Patient came to [facility] ED stating he was vomiting blood. It was later identified that the patient changed his statement; "Upon surgical consult patient now states that he was drinking red Powerade for his transportation by EMS denies vomiting blood. Multiple nursing staff and EMS record in the chart the patient states he was vomiting blood." Patient was discharged yesterday 12/22/2015 at 1355, after a 5 day stay in the hospital for noncompliance with his diabetic needs; patient came back in at 2117 stating he was suicidal and had been for the last 7 months. Patient has show extensive means to include escalating events for achieving his secondary gain and continues to use inappropriate resources for housing. Dr. Waller was consulted on the care and management of this patient; tending physician is in agreement with recommendations and disposition. (JUS NAJERA) - Related Data Allergies/Adverse Reactions: No Known Allergies Allergy (Verified 11/22/16 11:39) Past Medical History - General Information source: Patient - Social History Smoking Status: Never Smoker Frequency of alcohol use: None Drug Abuse: None Lives with: Spouse/Significant other Family History: DM, Hypertension - Past Medical History Cardiac Medical History: Reports: Hx Hypertension Pulmonary Medical History: Reports: Hx Asthma - as child, Hx COPD Neurological Medical History: Reports: Hx Migraine Endocrine Medical History: Reports: Hx Diabetes Mellitus Type 1, Hx Diabetes Mellitus Type 2 Psychiatric Medical History: Reports: Hx Anxiety, Hx Depression - and anxiety Past Surgical History: Reports: Hx Appendectomy, Hx Oral Surgery - wisdom teeth - Immunizations Hx Diphtheria, Pertussis, Tetanus Vaccination: Yes Hx Pneumococcal Vaccination: 09/16/00 <JUS NAJERA - Last Filed: 12/22/16 11:54> Course - Laboratory Result Diagrams: 12/21/16 20:47 12/21/16 20:47 <JUS NAJERA - Last Filed: 12/22/16 11:54> - Laboratory Result Diagrams: 12/21/16 20:47 12/21/16 20:47 <CHANNING VALVERDE - Last Filed: 12/22/16 12:08> - Re-evaluation Re-evalutation: 12/22/16 12:08 Patient recommended for discharge at this time agree with assessment and plan. ( CHANNING VALVERDE) - Vital Signs Vital signs: Temp Pulse Resp BP Pulse Ox 98.2 F 85 18 156/101 H 99 12/22/16 06:11 12/22/16 09:34 12/22/16 09:34 12/22/16 09:34 12/22/16 09:34 - Laboratory Laboratory results interpreted by me: 12/21/16 12/21/16 12/21/16 20:20 20:47 20:47 WBC 13.8 H Hgb 11.1 L Hct 35.1 L MCV 74 L MCH 23.6 L MCHC 31.8 L RDW 16.8 H Seg Neutrophils % 79.7 H Absolute Neutrophils 11.0 H Glucose 227 H POC Glucose Urine Protein >=500 H Urine Glucose (UA) >=500 H Salicylates < 1.0 L Acetaminophen < 10 L 12/22/16 12/22/16 12/22/16 01:19 07:25 10:11 WBC Hgb Hct MCV MCH MCHC RDW Seg Neutrophils % Absolute Neutrophils Glucose POC Glucose 388 H 222 H 272 H Urine Protein Urine Glucose (UA) Salicylates Acetaminophen 12/22/16 11:41 WBC Hgb Hct MCV MCH MCHC RDW Seg Neutrophils % Absolute Neutrophils Glucose POC Glucose 318 H Urine Protein Urine Glucose (UA) Salicylates Acetaminophen Discharge <JUS NAJERA - Last Filed: 12/22/16 11:54> <CHANNING VALVERDE - Last Filed: 12/22/16 12:08> - Discharge Clinical Impression: Hyperglycemia, Suicidal ideation Condition: Good Disposition: HOME, SELF-CARE Additional Instructions: Hyperglycemia (High Blood Sugar) You have an abnormally high blood sugar. Not all high blood sugar requires long-term treatment. High blood sugar can be due to medications, , or the stress of illness. (These cases are "borderline diabetes.") If the doctor feels your high blood sugar might resolve with time, you may not require treatment now. You will be scheduled for further evaluation. It's very important that you follow through, to see if the blood sugar returns to normal levels. Uncontrolled high blood sugar leads to early heart disease, strokes, nerve damage, eye damage, and kidney damage. Call the physician if there is faintness, excess sleepiness, or very rapid breathing. Suicidal Ideation Suicidal ideation is a common medical term for thoughts about suicide, which may be as detailed as a formulated plan, without the suicidal act itself. Although most people who undergo suicidal ideation do not commit suicide, some go on to make suicide attempts. The range of suicidal ideation varies greatly from fleeting to detailed planning, role playing, and unsuccessful attempts. You are recommended to follow up with your primary care physician and home mental health provider. Be sure to check your sugars and take your insulin according to the directions your primary care provider has given you. Follow-up with [facility] for management of your mental health problems. Follow-up with Dr. Fisher in the office for management of your diabetes. Referrals: MITCHELL FISHER MD [Primary Care Provider] - Follow up as needed [facility] Nia Marrero [Outside] - Follow up as needed
[2016-12-22 12:14] VITALS: BP 141/85
[2016-12-22] MEDS ORDERED: TRAZODONE HCL 50 MG TABLET PO SCH (22:00)
== END 2016-12-22 12:28 | disposition home or self-care (01) ==
LOC: ER 19:43
DX: R45.851 Suicidal ideations (principal); R45.850 Homicidal ideations; E11.65 Type 2 diabetes mellitus with hyperglycemia; F32.9 Major depressive disorder, single episode, unspecified; F41.9 Anxiety disorder, unspecified; I10 Essential (primary) hypertension
CPT/HCPCS: 93005; 99285; 36415; 82962; 80307 ×4; 85025; 80053; 81001; 82803; 93010; J3490 ×6; J1815 ×2

== ENCOUNTER 2016-12-22 19:17 | Emergency (ER) | payer MEDICAID ==
--- NOTE | 2016-12-22 19:24 | ER Document Report ---
ED General - General Stated Complaint: BLOOD SUGAR PROBLEMS Notes: Patient is a 31-year-old male who was just discharged earlier today for suicidal ideation who returns again stating that he cut his left wrist in an attempt to kill himself. Patient states "didn't want to help me earlier today so I thought I would show how serious I was ". Patient continues to endorse suicidal ideation at this time stating he plans to cut deeper. He denies any acute medical concerns. Nothing improves or worsens his suicidal ideation. He is currently homeless. Admits to noncompliance with his diabetes medications. TRAVEL OUTSIDE OF THE [place] IN LAST 30 DAYS: No - Related Data Allergies/Adverse Reactions: No Known Allergies Allergy (Verified 11/22/16 11:39) Past Medical History - General Information source: Patient - Social History Smoking Status: Never Smoker Frequency of alcohol use: None Drug Abuse: None Lives with: Homeless Family History: DM, Hypertension - Past Medical History Cardiac Medical History: Reports: Hx Hypertension Pulmonary Medical History: Reports: Hx Asthma - as child, Hx COPD Neurological Medical History: Reports: Hx Migraine Endocrine Medical History: Reports: Hx Diabetes Mellitus Type 1, Hx Diabetes Mellitus Type 2 Psychiatric Medical History: Reports: Hx Anxiety, Hx Depression - and anxiety Past Surgical History: Reports: Hx Appendectomy, Hx Oral Surgery - wisdom teeth - Immunizations Hx Diphtheria, Pertussis, Tetanus Vaccination: Yes Hx Pneumococcal Vaccination: 09/16/00 Review of Systems - Review of Systems Notes: Constitutional: Negative for fever. HENT: Negative for sore throat. Eyes: Negative for visual changes. Cardiovascular: Negative for chest pain. Respiratory: Negative for shortness of breath. Gastrointestinal: Negative for abdominal pain, vomiting or diarrhea. Genitourinary: Negative for dysuria. Musculoskeletal: Negative for back pain. Skin: Positive for left wrist laceration Neurological: Negative for headaches, weakness or numbness. 10 point ROS negative except as marked above and in HPI. Physical Exam - Vital signs Vitals: Temp Pulse Resp BP Pulse Ox 98.2 F 90 20 137/85 H 98 12/22/16 20:19 12/22/16 20:19 12/22/16 20:19 12/22/16 20:19 12/22/16 20:19 Interpretation: Normal Notes: PHYSICAL EXAMINATION: GENERAL: Well-appearing, well-nourished and in no acute distress. HEAD: Atraumatic, normocephalic. EYES: Pupils equal round and reactive to light, extraocular movements intact, sclera anicteric, conjunctiva are normal. ENT: nares patent, oropharynx clear without exudates. Moist mucous membranes. NECK: Normal range of motion, supple without lymphadenopathy LUNGS: Breath sounds clear to auscultation bilaterally and equal. No wheezes rales or rhonchi. HEART: Regular rate and rhythm without murmurs ABDOMEN: Soft, nontender, normoactive bowel sounds. No guarding, no rebound. No masses appreciated. EXTREMITIES: Normal range of motion, no pitting or edema. No cyanosis. NEUROLOGICAL: No focal neurological deficits. Moves all extremities spontaneously and on command. PSYCH: Normal mood, normal affect. SKIN: Warm, Dry, normal turgor, multiple similar lacerations of the left wrist Course - Re-evaluation Re-evalutation: 12/22/16 19:25 Patient again presents today complaining of suicidal ideation. He has inflicted very superficial wounds to the left wrist and states this is an attempt to kill himself although I doubt this given the highly superficial nature of these wounds. Patient continues to endorse active suicidal ideation the time of my evaluation. Review psychiatry's note symptoms consistent with what my initial impression is of this and patient that he may be doing these actions for secondary gain. He is noted again to be severely hyperglycemic secondary to noncompliance with diabetes medications and is currently homeless. Will obtain laboratories to evaluate for DKA or HHS. Will not place patient IVC as I do doubt his suicidality at this time although will allow him to stay in the emergency room and again discussed psychiatry in the morning. Social work will also be consult to assist in helping patient manage his resources more appropriately and hopefully prevent further emergency department visits for social needs. - Vital Signs Vital signs: Temp Pulse Resp BP Pulse Ox 98.2 F 90 20 137/85 H 98 12/22/16 20:19 12/22/16 20:19 12/22/16 20:19 12/22/16 20:19 12/22/16 20:19 - Laboratory Result Diagrams: 12/22/16 19:59 Laboratory results interpreted by me: 12/22/16 12/22/16 12/22/16 19:48 19:59 19:59 Glucose 322 H POC Glucose 292 H Urine Protein 100 H Urine Glucose (UA) >=500 H 12/22/16 23:28 Glucose POC Glucose 308 H Urine Protein Urine Glucose (UA) Discharge - Discharge Clinical Impression: Hyperglycemia, Suicidal ideation Condition: Fair Disposition: PSYCH HOSP/UNIT
[2016-12-22 20:17] LABS: APPEARANCE,URINE CLEAR; BILIRUBIN,URINE NEGATIVE (NEGATIVE); GLUCOSE, URINE >=500 mg/dL (NEGATIVE); KETONES,URINE NEGATIVE (NEGATIVE); LEUKOCYTE ESTERASE,URINE NEGATIVE (NEGATIVE); NITRITE,URINE NEGATIVE (NEGATIVE); PROTEIN,URINE 100 mg/dL (NEGATIVE); URINE SPECIFIC GRAVITY 1.008; UROBILINOGEN,URINE NEGATIVE mg/dL (<2.0)
[2016-12-22 20:19] LABS: VENOUS BLOOD BASE EXCESS 0.9 mmol/L; VENOUS BLOOD HCO3 26.4 mmol/L (20-32); VENOUS BLOOD PCO2 45.8 mmHg (35-63); VENOUS BLOOD PH 7.38 (7.30-7.42)
[2016-12-22 20:33] LABS: ANION GAP 11 (5-19); BLOOD UREA NITROGEN 17 mg/dL (7-20); CARBON DIOXIDE 27 mmol/L (22-30); CHLORIDE 102 mmol/L (98-107); CREATININE RESULT 1.12 mg/dL (0.52-1.25); GLUCOSE 322 mg/dL (75-110); POTASSIUM 4.3 mmol/L (3.6-5.0); SODIUM 140.4 mmol/L (137-145)
[2016-12-22] MEDS ORDERED: INSULIN LISPRO 100 UNIT/ML 3 ML VIAL SUBCUT ONE (22:42)
[2016-12-22] MEDS ORDERED: DEXTROSE 50%-WATER 25 GM/50 ML DISP.SYRIN IV PRN ×2 (22:43)
[2016-12-22] MEDS ORDERED: INSULIN LISPRO 100 UNIT/ML 3 ML VIAL SUBCUT PRN (22:43)
[2016-12-22] MEDS ORDERED: GLUCAGON,HUMAN RECOMB 1 MG INJ IM PRN (22:43)
[2016-12-22] MEDS ORDERED: DEXTROSE 40% GEL 15 GM TUBE PO PRN ×2 (22:43)
[2016-12-23] MEDS ORDERED: DIAZEPAM 5 MG TABLET PO ONE (01:36)
[2016-12-23 07:30] VITALS: BP 156/85
--- NOTE | 2016-12-23 08:58 | PSYCHOLOGICAL NOTE ---
Psych Note - Psych Note Psych Note: Patient is a 31 year old male who presents after he reportedly attempted suicide via cutting his wrists. Patient's cuts on his wrists were noted as superficial and also appear more congruent with scratches caused by something like a paperclip, etc. Patient today states he just cant deal with his stressors and is living from place to place wherever he can find. Patient states it is to much to handle. Discussed with patient previous episodes here in the Department and when admitted to Hospitalist's services. Patient states, "y'all just discharge me and if you let me go again today, I'll try again but this time my neck." Discussed with patient alternatives, and what sort of help he feels he needs. Patient is unable to identify specific help. Discussed with patient use of the bus system via his Medicaid to secure transportation to his provider, [facility] so he may utilize their walk in policy, or schedule an appointment. Patient stated he did not know how to use the bus and does not always have a specific address to provider. Discussed with patient the importance of follow up. Patient states he would like to know the plan of care. Patient advised that this clinician would speak with the MD, at which time he stated he would prefer to just leave and take his medications at home. Discussed with patient that his presentation is confusing as he states he wants help, but then refuses to wait for an answer or medications for his blood sugar. Patient is A&O. Mood is irritable and anxious with normal/flat affect. Patient endorses suicidal ideations with plan (cut). Patient denies homicidal ideations , intent, plan, or means. Patient denies A/V H; delusions not noted. Thought processes were goal oriented towards inpatient hospitalization. Conversational speech was low for prosody. Intellectual abilities were estimated within average range. Attention and focus were fair. Insight, judgment, and impulse control were poor 311(F32.9) unspecified depressive disorder per history provided by patient 300.00 (F41.9) unspecified anxiety disorder per history provided by patient Impression\\plan: Patient is psychiatrically cleared for discharge. Patient has an extensive recent history of presenting to the ED (11/16-11/17, 11/18-11/21,11/21-11/22, -12/13, 12/16-12/21). Patient has repeatedly changed his story each time, with incongruent collateral information. Patient does have an outpatient psychiatric provider, [facility], with whom he often agrees to follow up with, but per his reports does not. Patient is noted as homeless; however, receives Medicaid and has been provided resources each prior episode. Patient is also noncompliant with his medical/Diabetes medications and often presents with diabetes related complications. I consulted with Dr. Waller in regards to the care and management of this patient. ED MD is in agreement with disposition and recommendations. Note, patient refused to wait for medications for his Diabetes and left prior to discharge papers were provided.
--- NOTE | 2016-12-23 09:28 | ER Document Report ---
Doctor's Note Notes: 12/23/16 09:27 Lab work vital signs have been reviewed. At this time patient is currently stable with no overnight events requiring no intervention at this time. Patient stable for transfer or other disposition
--- NOTE | 2016-12-23 09:29 | ER Document Report ---
ED Psych Disorder / Suicide - General Information source: Patient, [facility] Records TRAVEL OUTSIDE OF THE [place] IN LAST 30 DAYS: No - HPI Onset: Just prior to arrival Onset was: Sudden Suicide Risk Factors: Lack of social support, Male, Other mental health dx., Other - homeless Situational problems related to: Other - homelessness; not managing his diabetes Suicide Attempt Method: Stabbing/Cutting - noted as superficial, scratches congruent with self injury not suicide attempt, Other Normal mood: Yes Associated symptoms: Depressed, Flat affect, Irritable, Other - flat affect Similar symptoms previously: Yes - yesterday Recently seen / treated by doctor: Yes - yesterday <ANTIONE VARGAS - Last Filed: 12/23/16 09:23> <CHANNING VALVERDE - Last Filed: 12/23/16 09:37> - General Chief Complaint: Suicidal Ideation Stated Complaint: SUICIDAL IDEATION/BLOOD SUGAR PROBLEMS - Related Data Allergies/Adverse Reactions: No Known Allergies Allergy (Verified 11/22/16 11:39) Past Medical History - General Information source: Patient - Social History Smoking Status: Current Every Day Smoker Frequency of alcohol use: None Drug Abuse: None Lives with: Homeless Family History: DM, Hypertension - Past Medical History Cardiac Medical History: Reports: Hx Hypertension Pulmonary Medical History: Reports: Hx Asthma - as child, Hx COPD Neurological Medical History: Reports: Hx Migraine Endocrine Medical History: Reports: Hx Diabetes Mellitus Type 1, Hx Diabetes Mellitus Type 2 Psychiatric Medical History: Reports: Hx Anxiety, Hx Depression - and anxiety Past Surgical History: Reports: Hx Appendectomy, Hx Oral Surgery - wisdom teeth - Immunizations Hx Diphtheria, Pertussis, Tetanus Vaccination: Yes Hx Pneumococcal Vaccination: 09/16/00 <ANTIONE VARGAS - Last Filed: 12/23/16 09:23> Course - Laboratory Result Diagrams: 12/22/16 19:59 <ANTIONE VARGAS - Last Filed: 12/23/16 09:23> - Laboratory Result Diagrams: 12/22/16 19:59 <CHANNING VALVERDE - Last Filed: 12/23/16 09:37> - Re-evaluation Re-evalutation: 12/23/16 09:33 Patient has decided not to continue any medical care. Patient is not on any IVC paper work. Patient was cleared by our psychiatric team. Do agree with the assessment. Patient was encouraged follow-up with his primary care physician. Patient was encouraged to continue his medications at home. Patient does confirm that he had his medications available. 12/23/16 09:37 Patient left before receiving discharge papers. (CHANNING VALVERDE) - Vital Signs Vital signs: Temp Pulse Resp BP Pulse Ox 98.6 F 87 16 156/85 H 99 12/23/16 07:29 12/23/16 07:29 12/23/16 07:29 12/23/16 07:29 12/23/16 07:29 - Laboratory Laboratory results interpreted by nm: 12/22/16 12/22/16 12/22/16 19:48 19:59 19:59 Glucose 322 H POC Glucose 292 H Urine Protein 100 H Urine Glucose (UA) >=500 H 12/22/16 12/23/16 23:28 08:01 Glucose POC Glucose 308 H 368 H Urine Protein Urine Glucose (UA) Discharge <ANTIONE VARGAS - Last Filed: 12/23/16 09:23> <CHANNING VALVERDE - Last Filed: 12/23/16 09:37> - Discharge Clinical Impression: Hyperglycemia, Suicidal ideation, Injury, self-inflicted Condition: Fair Disposition: HOME, SELF-CARE Instructions: Suicidal Ideation ([facility]), Depression ([facility]), Diabetes ([facility]) Additional Instructions: Please follow up with your provider [facility]. Please use alternative coping skills to manage your depression and stressors. Please return to the ER if your symptoms worsen
== END 2016-12-23 09:20 | disposition home or self-care (01) ==
LOC: ER 19:17
DX: E11.65 Type 2 diabetes mellitus with hyperglycemia (principal); F43.20 Adjustment disorder, unspecified; R45.851 Suicidal ideations
CPT/HCPCS: 99285; 36415; 82962; 80048; 81001; 82803; J3490; J1815

== ENCOUNTER 2016-12-31 14:31 | Emergency (ER) | payer MEDICAID ==
[2016-12-31 15:22] VITALS: BP 153/94
--- NOTE | 2016-12-31 15:57 | ER Document Report ---
ED Medical Screen (RME) - General Chief Complaint: Syncope Stated Complaint: POSSIBLE SYNCOPE Notes: This noncompliant insulin-dependent diabetic is brought to emergency by EMS after having a fainting spell while walking from a friend's house. He is probably still homeless as he has been on the last multiple admissions. He reports having a headache. He reports he actually did not drink a lot of fluids today and it is quite warm outside. EMS gave him a fluid bolus, his sugar was about 280, and his blood pressure is normal. I have greeted and performed a rapid initial assessment of this patient. A comprehensive ED assessment and evaluation of the patient, analysis of test results and completion of the medical decision making process will be conducted by additional ED providers. TRAVEL OUTSIDE OF THE [place] IN LAST 30 DAYS: No - Related Data Allergies/Adverse Reactions: No Known Allergies Allergy (Verified 12/31/16 15:46) Home Medications: Current Home Medications Oxycodone HCl 15 mg PO Q6H 12/31/16 [History] Past Medical History - Social History Family history: Reviewed & Not Pertinent - Past Medical History Cardiac Medical History: Reports: Hx Hypertension Pulmonary Medical History: Reports: Hx Asthma - as child, Hx COPD Neurological Medical History: Reports: Hx Migraine Endocrine Medical History: Reports: Hx Diabetes Mellitus Type 1, Hx Diabetes Mellitus Type 2 Renal/ Medical History: Denies: Hx Peritoneal Dialysis Psychiatric Medical History: Reports: Hx Anxiety, Hx Depression - and anxiety Past Surgical History: Reports: Hx Appendectomy, Hx Oral Surgery - wisdom teeth - Immunizations Hx Diphtheria, Pertussis, Tetanus Vaccination: Yes Physical Exam - Vital signs Vitals: Temp Pulse Resp BP Pulse Ox 98.3 F 93 20 153/94 H 98 12/31/16 15:19 12/31/16 15:19 12/31/16 15:19 12/31/16 15:19 12/31/16 15:19 Course - Vital Signs Vital signs: Temp Pulse Resp BP Pulse Ox 98.3 F 93 20 153/94 H 98 12/31/16 15:19 12/31/16 15:19 12/31/16 15:19 12/31/16 15:19 12/31/16 15:19
[2016-12-31 16:38] LABS: ABSOLUTE BASOPHILS # (AUTO) 0.1 10^3/uL (0.0-0.2); ABSOLUTE EOSINOPHILS # (AUTO) 0.2 10^3/uL (0.0-0.6); ABSOLUTE LYMPHOCYTES (AUTO) 1.3 10^3/uL (0.5-4.7); ABSOLUTE MONOCYTES (AUTO) 0.5 10^3/uL (0.1-1.4); ABSOLUTE NEUT (AUTO) 5.9 10^3/uL (1.7-8.2); BASOPHILS % (AUTO) 1.5 % (0-2); EOSINOPHILS % (AUTO) 1.9 % (0-6); HEMATOCRIT 34.6 % (37.9-51.0); HEMOGLOBIN 11.2 g/dL (13.5-17.0); LYMPHOCYTES % (AUTO) 16.5 % (13-45); MEAN CORPUSCULAR HEMOGLOBIN 24.1 pg (27.0-33.4); MEAN CORPUSCULAR HGB CONC 32.5 g/dL (32.0-36.0); MEAN CORPUSCULAR VOLUME 74 fl (80-97); MONOCYTES % (AUTO) 6.3 % (3-13); RED BLOOD COUNT 4.67 10^6/uL (4.35-5.55); RED CELL DISTRIBUTION WIDTH 17.2 % (11.5-14.0); SEGMENTED NEUTROPHILS % (AUTO) 73.8 % (42-78)
[2016-12-31 16:41] LABS: APPEARANCE,URINE SLIGHTLY-CLOUDY; BILIRUBIN,URINE NEGATIVE (NEGATIVE); GLUCOSE, URINE >=500 mg/dL (NEGATIVE); KETONES,URINE NEGATIVE (NEGATIVE); LEUKOCYTE ESTERASE,URINE NEGATIVE (NEGATIVE); NITRITE,URINE NEGATIVE (NEGATIVE); PROTEIN,URINE 100 mg/dL (NEGATIVE); URINE SPECIFIC GRAVITY 1.006; UROBILINOGEN,URINE NEGATIVE mg/dL (<2.0)
[2016-12-31 16:57] LABS: URINE BARBITURATES SCREEN NEGATIVE; URINE METHADONE SCREEN NEGATIVE; URINE OPIATES LOW NEGATIVE; URINE PHENCYCLIDINE SCREEN NEGATIVE
[2016-12-31 17:02] LABS: ALANINE AMINOTRANSFERASE 43 U/L (21-72); ALKALINE PHOSPHATASE 101 U/L (38-126); ANION GAP 10 (5-19); ASPARTATE AMINO TRANSFERASE 28 U/L (17-59); BILIRUBIN,DIRECT 0.1 mg/dL (0.0-0.4); BILIRUBIN,TOTAL 0.2 mg/dL (0.2-1.3); BLOOD UREA NITROGEN 19 mg/dL (7-20); CALCIUM 9.6 mg/dL (8.4-10.2); CARBON DIOXIDE 29 mmol/L (22-30); CHLORIDE 96 mmol/L (98-107); CREATINE KINASE 84 U/L (55-170); CREATININE RESULT 1.22 mg/dL (0.52-1.25); GLUCOSE 348 mg/dL (75-110); POTASSIUM 5.8 mmol/L (3.6-5.0); TOTAL PROTEIN 6.9 g/dL (6.3-8.2)
[2016-12-31 17:10] LABS: CREATINE KINASE MB 0.61 ng/mL (<4.55)
[2016-12-31 17:11] LABS: TROPONIN I < 0.012 ng/mL
--- NOTE | 2016-12-31 19:02 | EKG REPORT ---
SEVERITY:- NORMAL ECG - SINUS RHYTHM : Confirmed by: Zakiya Francis 31-Dec-2016 19:01:10
== END 2016-12-31 20:40 | disposition left against medical advice (07) ==
LOC: ER 14:31
DX: R55 Syncope and collapse (principal); I10 Essential (primary) hypertension; E11.9 Type 2 diabetes mellitus without complications; Z59.0 Homelessness
CPT/HCPCS: 36415; 80053; 80307; 81001; 82550; 82553; 84484; 85025; 93005; 93010; 99281

== ENCOUNTER 2017-01-16 00:06 | Inpatient (IN) | payer MEDICAID ==
[2017-01-16] MEDS ORDERED: NORMAL SALINE 1000 ML 1,000 ML IV PRN ×3 (00:17→11:19)
[2017-01-16] MEDS ORDERED: ONDANSETRON HCL INJ/PF 4 MG/2 ML SDV IV ONE (00:17)
--- NOTE | 2017-01-16 00:20 | ER Document Report ---
ED General - General Stated Complaint: NAUSEA,VOMITING Notes: Patient is a 31-year-old male presents with complaints of headache, nausea, vomiting, high blood sugar. He said this are found that today. No recent fevers or infections. He does have a history of recurrent DKA. He says he has not missed any insulin dosages. He takes Levemir 20 at night and 20 morning. He took 20 units of his NovoLog insulin prior to coming to the ER. His blood sugar read about 400 around 5 PM. It read high for the paramedics. TRAVEL OUTSIDE OF THE [place] IN LAST 30 DAYS: No - Related Data Allergies/Adverse Reactions: No Known Allergies Allergy (Verified 12/31/16 15:46) Past Medical History - Social History Smoking Status: Unknown if Ever Smoked Frequency of alcohol use: None Drug Abuse: None Family History: DM, Hypertension - Past Medical History Cardiac Medical History: Reports: Hx Hypertension Pulmonary Medical History: Reports: Hx Asthma - as child, Hx COPD Neurological Medical History: Reports: Hx Migraine Endocrine Medical History: Reports: Hx Diabetes Mellitus Type 1, Hx Diabetes Mellitus Type 2 Renal/ Medical History: Denies: Hx Peritoneal Dialysis Psychiatric Medical History: Reports: Hx Anxiety, Hx Depression - and anxiety Past Surgical History: Reports: Hx Appendectomy, Hx Oral Surgery - wisdom teeth - Immunizations Hx Diphtheria, Pertussis, Tetanus Vaccination: Yes Hx Pneumococcal Vaccination: 09/16/00 Review of Systems - Review of Systems Notes: My Normal Review Basic REVIEW OF SYSTEMS: CONSTITUTIONAL : Denies fever, chills, or sweats. Denies recent illness. EENT: Denies eye, ear, throat, or mouth pain or symptoms. Denies nasal or sinus congestion. CARDIOVASCULAR: Denies chest pain. RESPIRATORY: Denies cough, cold, or chest congestion. Denies shortness of breath, difficulty breathing, or wheezing. GASTROINTESTINAL: Denies abdominal pain. Vomiting Denies constipation. Last BM: GENITOURINARY: Denies difficulty urinating, painful urination, burning, frequency, or blood in urine. MUSCULOSKELETAL: Denies neck or back pain or joint pain or swelling. SKIN: Denies rash or skin lesions. NEUROLOGICAL: Denies altered mental status or loss of consciousness. Has a headache. Denies weakness or paralysis or loss of use of either side. Denies problems with gait or speech. Denies sensory or motor loss. ALL OTHER SYSTEMS REVIEWED AND NEGATIVE. Physical Exam - Notes Notes: General Appearance: Well nourished, alert, cooperative, no acute distress, no obvious discomfort. Vitals: reviewed, See vital signs table. Head: no swelling or tenderness to the head Eyes: PERRL, EOMI, Conjuctiva clear Mouth: No decreasd moisturey Neck: Supple, no neck tenderness, No thyromegaly Lungs: No wheezing, No rales, No rhonci, No accessory muscle use, good air exchange bilaterally. Heart: Tachycardic rate, Regular rythm, No murmur, no rub Abdomen: Normal BS, soft, No rigidity, No abdominal tenderness, No guarding, no rebound, no abdominal masses, no organomegaly Extremities: strength 5/5 in all extremities, good pulses in all extremities, no swelling or tenderness in the extremities, no edema. Skin: warm, dry, appropriate color, no rash. Scars left forearm from previous superficial self cuts. Neuro: speech clear, oriented x 3, normal affect, responds appropriately to questions. Creatinine nerves II through XII are intact. Normal gait. Patient moves all extremities without difficulty. Normal balance. No focal neurologic deficits on exam. Course - Laboratory Result Diagrams: 01/16/17 00:25 01/16/17 00:25 Laboratory results interpreted by me: 01/16/17 01/16/17 01/16/17 00:25 00:25 00:25 Hgb 11.1 L Hct 37.1 L MCV 79 L D MCH 23.7 L MCHC 29.9 L RDW 17.2 H Seg Neutrophils % 89.0 H Lymphocytes % 6.4 L Absolute Neutrophils 9.0 H Sodium 125.3 L Potassium 5.8 H Chloride 89 L BUN 25 H Creatinine 1.37 H Glucose 1108 H* Alkaline Phosphatase 132 H Urine Protein 30 H Urine Glucose (UA) >=500 H - Transfer of Care Notes: 01/16/17 01:43 Patient has a blood sugar over 1100. He has vomiting. I've given him 2 L of IV fluids. I place him on insulin drip. Will take a long time for his blood sugars down to a safe range. He has a history of recurrent DKA and through that she is not treated appropriately here that he will go into DKA pretty quickly. He has no signs of infection. Has no fever. No leukocytosis. He was formally followed by Dr. Fisher. He was recently discharged from Dr. Fisher' s practice. I will have spoken with the hospitalist who agrees to admit the patient. Dictation of this chart was performed using voice recognition software; therefore, there may be some unintended grammatical errors. 01/16/17 01:44 Discharge - Discharge Clinical Impression: Hyperglycemia Vomiting Qualifiers: Vomiting type: unspecified Vomiting Intractability: non-intractable Nausea presence: with nausea Qualified Code(s): R11.2 - Nausea with vomiting, unspecified Condition: Stable Disposition: ADMITTED OBSERVATION Admitting Provider: Hospitalist Unit Admitted: [facility]
[2017-01-16 00:41] LABS: APPEARANCE,URINE CLEAR; BILIRUBIN,URINE NEGATIVE (NEGATIVE); GLUCOSE, URINE >=500 mg/dL (NEGATIVE); KETONES,URINE NEGATIVE (NEGATIVE); LEUKOCYTE ESTERASE,URINE NEGATIVE (NEGATIVE); NITRITE,URINE NEGATIVE (NEGATIVE); PROTEIN,URINE 30 mg/dL (NEGATIVE); URINE SPECIFIC GRAVITY 1.014; UROBILINOGEN,URINE NEGATIVE mg/dL (<2.0)
[2017-01-16 00:50] LABS: ABSOLUTE BASOPHILS # (AUTO) 0.1 10^3/uL (0.0-0.2); ABSOLUTE LYMPHOCYTES (AUTO) 0.7 10^3/uL (0.5-4.7); ABSOLUTE MONOCYTES (AUTO) 0.4 10^3/uL (0.1-1.4); BASOPHILS % (AUTO) 0.9 % (0-2); EOSINOPHILS % (AUTO) 0.1 % (0-6); HEMATOCRIT 37.1 % (37.9-51.0); HEMOGLOBIN 11.1 g/dL (13.5-17.0); HGB HCT DIFFERENCE -3.8; LYMPHOCYTES % (AUTO) 6.4 % (13-45); MEAN CORPUSCULAR HEMOGLOBIN 23.7 pg (27.0-33.4); MEAN CORPUSCULAR HGB CONC 29.9 g/dL (32.0-36.0); MEAN CORPUSCULAR VOLUME 79 fl (80-97); MONOCYTES % (AUTO) 3.6 % (3-13); RED BLOOD COUNT 4.67 10^6/uL (4.35-5.55); RED CELL DISTRIBUTION WIDTH 17.2 % (11.5-14.0); WHITE BLOOD COUNT 10.1 10^3/uL (4.0-10.5)
[2017-01-16 00:53] LABS: ALANINE AMINOTRANSFERASE 31 U/L (21-72); ALBUMIN 3.7 g/dL (3.5-5.0); ALKALINE PHOSPHATASE 132 U/L (38-126); ASPARTATE AMINO TRANSFERASE 44 U/L (17-59); BILIRUBIN,DIRECT 0.2 mg/dL (0.0-0.4); BILIRUBIN,TOTAL 0.4 mg/dL (0.2-1.3); BLOOD UREA NITROGEN 25 mg/dL (7-20); CALCIUM 8.9 mg/dL (8.4-10.2); CARBON DIOXIDE 24 mmol/L (22-30); CREATININE RESULT 1.37 mg/dL (0.52-1.25); POTASSIUM 5.8 mmol/L (3.6-5.0); SODIUM 125.3 mmol/L (137-145); TOTAL PROTEIN 6.4 g/dL (6.3-8.2)
[2017-01-16 00:55] LABS: ANION GAP 12 (5-19); CHLORIDE 89 mmol/L (98-107)
[2017-01-16 01:03] LABS: GLUCOSE 1108 mg/dL (75-110)
[2017-01-16] MEDS ORDERED: GLUCAGON,HUMAN RECOMB 1 MG INJ IM PRN ×2 (01:08→04:57)
[2017-01-16] MEDS ORDERED: DEXTROSE 40% GEL 15 GM TUBE PO PRN ×4 (01:08→04:57)
[2017-01-16] MEDS ORDERED: NORMAL SALINE 100 ML with INSULIN REGULAR, HUMAN 100 UNIT IV PRN ×6 (01:08→11:20)
[2017-01-16] MEDS ORDERED: DEXTROSE 50%-WATER 25 GM/50 ML DISP.SYRIN IV PRN ×4 (01:08→04:57)
[2017-01-16] MEDS ORDERED: ACETAMINOPHEN 325 MG TABLET PO ONE (01:39)
[2017-01-16 02:13] LABS: ADD ON TESTING BLD IN LAB ACKNOWLEDGE
[2017-01-16 02:21] LABS: MAGNESIUM 1.8 mg/dL (1.6-2.3)
[2017-01-16] MEDS ORDERED: INSULIN REG, HUMAN 100 UNIT/ML 3 ML VIAL (PYX) ONE ×2 (02:25→12:11)
[2017-01-16 04:01] LABS: VENOUS BLOOD BASE EXCESS 0.1 mmol/L; VENOUS BLOOD HCO3 25.6 mmol/L (20-32); VENOUS BLOOD PCO2 44.9 mmHg (35-63); VENOUS BLOOD PH 7.37 (7.30-7.42)
[2017-01-16 04:22] LABS: ANION GAP 16 (5-19); BLOOD UREA NITROGEN 24 mg/dL (7-20); CALCIUM 9.2 mg/dL (8.4-10.2); CARBON DIOXIDE 23 mmol/L (22-30); CHLORIDE 92 mmol/L (98-107); CREATININE RESULT 1.33 mg/dL (0.52-1.25); SODIUM 131.3 mmol/L (137-145)
[2017-01-16 04:30] LABS: POTASSIUM 4.6 mmol/L (3.6-5.0)
[2017-01-16 04:31] LABS: GLUCOSE 785 mg/dL (75-110)
[2017-01-16 07:51] LABS: URINE BARBITURATES SCREEN NEGATIVE; URINE METHADONE SCREEN NEGATIVE; URINE OPIATES LOW NEGATIVE; URINE PHENCYCLIDINE SCREEN NEGATIVE
[2017-01-16] MEDS ORDERED: DEXTROSE 5%-NORMAL SALINE 1,000 ML IV PRN ×3 (07:53→16:50)
[2017-01-16] MEDS ORDERED: NICOTINE 21 MG/24 HR PATCH.TD24 TD PRN (07:55)
[2017-01-16] MEDS ORDERED: MAGNESIUM HYDROXIDE SUSP 30 ML UDCUP PO PRN (07:56)
[2017-01-16] MEDS ORDERED: ACETAMINOPHEN 325 MG TABLET PO PRN (07:56)
[2017-01-16] MEDS ORDERED: PROMETHAZINE HCL INJ 25 MG/1 ML VIAL IV PRN (08:02)
--- NOTE | 2017-01-16 08:23 | PDOC H&P ---
History of Present Illness Admission Date/PCP: 01/16/17 01:50 None; reportedly recently d/c'd from Dr. Fisher's practice Patient complains of: N/V, high blood sugar History of Present Illness: LENA SCHULZ is a 31 year old diabetic Ariella male with history of chronic noncompliance with both medications and diet, who presents to the emergency room for evaluation of above complaints. Patient has been discussed with emergency room physician who evaluated the patient. Patient noted the onset of headache, nausea vomiting, and high blood sugar less than 24 hours prior to presentation to the emergency room. Nothing in particular made the nausea vomiting worse. Questionable fever and chills. Denies any "sore spots" anywhere on his body. No chest or abdominal pain. Reportedly takes Levemir 20 units at night and then again in the morning. Took 20 units of NovoLog prior to coming to the emergency room. Blood sugar 400 around 5 PM. read "high" for the paramedics. Patient told ER physician that he takes his medications as prescribed, but as noted above, review of old records reveals a reported history of chronic noncompliance with both medications and diet. Hospitalized under his previous primary care provider 12/16/2016 through 2016, with discharge diagnoses including diabetic hyperosmolar nonketotic state , history of medication noncompliance, and hypertension. History and physical and discharge summary have been reviewed. Currently resting quietly, denying any pain. Laboratory results are listed in [employer] and are reviewed. X-ray summary results--portable chest x-ray is pending. EKG pending. Social history/personal habits: . Has children. Unemployed. Pack of cigarettes per day. Denies alcohol or illicit drug use. Allergies/adverse reactions NKDA. Home medications Home medications initially autopopulated into [employer] may not accurately reflect patient's true medications, dosages, and/or frequencies. solids control technician to reconcile medications. Unfortunately, patient uncertain of medications/dosages/frequencies. REVIEW OF SYSTEMS: Constitutional: See history and present illness. Eyes: No current vision complaints. ENT: No swallowing problems or complaints. No hearing problems or complaints. Pulmonary: No current complaints. Cardiovascular: No current complaints, including chest pain. Gastrointestinal: See history and present illness. Skin: No current complaints, including rashes. Hematologic: No unusual easy bruising or bleeding. Neurologic: No current complaints, including numbness or tingling. Musculoskeletal: No current complaints, including painful joints. Psychiatric: Anxiety depression; denies suicidal or homicidal ideation. Endocrine: No current complaints, including polyuria. Genitourinary: No current complaints, including dysuria. PHYSICAL EXAMINATION: 6 feet 1 inches tall. 92.99 kg. BMI 27 kg/m. Blood pressure 138/92. Pulse 103 and regular. Respirations are 20 and unlabored. 98% saturation on room air. Slightly overweight otherwise well-nourished well-developed -[place] male appearing approximately his stated age. Somewhat fatigued appearance, and overall appears not to feel very well. Cooperative. Emergency room nurse Lurdes is present. Skin is warm and dry. No grossly obvious evidence of rash in areas of skin examined. No subcutaneous nodules palpated. ENT: Hearing grossly normal to normal conversation. Tongue midline on protrusion pink and slightly tacky. Eyes: No scleral icterus. Pupils equal and reactive to light at 6 mm. [place] conjunctivae. Neck is supple and nontender to gentle active range of motion and palpation. Midline trachea. No palpable thyroid nodule mass enlargement or tenderness. Lymphatic: No palpable cervical or clavicular nodes. Neck and lymphatic exams limited by patient body habitus. Psychiatric: Difficult to determine insight into acute and chronic medical issues, since patient has a quite flat affect, and rarely answers questions with more than a simple "yes" or "no." Lungs: Auscultation reveals clear and equal breath sounds bilaterally. No use of accessory respiratory muscles. Cardiovascular: Heart regular rate and rhythm, without gallop murmur or rub. No carotid or abdominal aortic bruits. No ankle or pedal edema. palpable dorsalis pedis pulses. Abdomen: soft, slightly, distended nontender with positive bowel sounds. Unable to adequately evaluate abdomen for masses or organomegaly due to distention. Extremities: Feet are warm and dry. No calf tenderness to compression. No grossly obvious visual evidence of calf swelling. Gentle manipulation of lower extremities fails to reveal any obvious evidence of injury or instability to knees hips or ankles. Neurologic: Moves upper extremities grossly normally. Patellar reflexes absent. Light touch is intact at feet. Dorsiflexion and plantarflexion of feet 5 / 5 and symmetric. Past Medical History Cardiac Medical History: Reports: Hypertension Denies: Congestive Heart Failure, DVT, Myocardial Infarction, Hyperlipidema, Pulmonary Embolism Pulmonary Medical History: Reports: Asthma - as child Denies: Chronic Obstructive Pulmonary Disease (COPD), Sleep Apnea EENT Medical History: Denies: Eyes, Ears, Throat Neurological Medical History: Reports: Migraine Denies: Hemorrhagic CVA, Ischemic CVA, Seizures Endocrine Medical History: Reports: Diabetes Mellitus Type 1 Denies: Diabetes Mellitus Type 2, Hyperthyroidism, Hypothyroidism Renal/ Medical History: Reports: None GI Medical History: Denies: Cirrhosis, Gastroesophageal Reflux Disease, Hepatitis, Peptic Ulcer Disease Musculoskeltal Medical History: Denies: Arthritis Skin Medical History: Reports: None Psychiatric Medical History: Reports: Depression, General Anxiety Disorder, Tobacco Dependency Denies: Alcohol Dependency, Substance Abuse Hematology: Reports: None Infectious Medical History: Denies: Clostridium Difficile, Hepatitis B, Hepatitis C, Methicillin- Resistant Staph Aureus Past Surgical History Past Surgical History: Reports: Appendectomy, Other - [place] teeth extraction Social History Information Source: Patient, Emergency Med Personnel, [facility] Records Lives with: Spouse/Significant other Smoking Status: Current Every Day Smoker Frequency of Alcohol Use: None Hx Recreational Drug Use: No Hx Prescription Drug Abuse: No - Advance Directive Resuscitation Status: Full Code Surrogate healthcare decision maker:: Family History Family History: DM, Hypertension Parental Family History Reviewed: Yes - healthy Children Family History Reviewed: Yes - Healthy Sibling(s) Family History Reviewed.: Yes - Healthy Medication/Allergy Home Medications: Amlodipine Besylate [Norvasc 5 mg Tablet] 5 mg PO DAILY 12/16/16 Atenolol [Tenormin] 25 mg PO DAILY 12/16/16 Gabapentin [Neurontin 300 mg Capsule] 300 mg PO Q6 12/16/16 Hydroxyzine Pamoate [Vistaril 50 mg Capsule] 50 mg PO Q8HP PRN 12/16/16 Insulin Aspart [Novolog Flexpen] 0 unit SQ .PERSLIDINGSCALE #3 12/21/16 Insulin Detemir [Levemir Flextouch] 20 unit SQ BID #3 12/21/16 Oxycodone HCl 15 mg PO Q6HP PRN 12/31/16 Allergies/Adverse Reactions: No Known Allergies Allergy (Verified 12/31/16 15:46) Physical Exam Vital Signs: Temp Pulse Resp BP Pulse Ox 98.6 F 105 H 18 139/97 H 96 01/16/17 00:25 01/16/17 00:25 01/16/17 00:25 01/16/17 04:02 01/16/17 04:02 Intake & Output 01/15/17 01/16/17 01/17/17 00:59 00:59 00:59 Output Total 1000 Balance -1000 Results Laboratory Results: 01/16/17 01/16/17 03:42 03:42 VBG pH 7.37 VBG pCO2 44.9 VBG HCO3 25.6 VBG Base Excess 0.1 Sodium 131.3 L Potassium 4.6 D Chloride 92 L Carbon Dioxide 23 Anion Gap 16 BUN 24 H Creatinine 1.33 H Est GFR ( Amer) > 60 Est GFR (Non-Af Amer) > 60 Glucose 785 H* Calcium 9.2 01/16/17 03:42 Troponin I < 0.012 Assessment & Plan - Diagnosis (1) DVT prophylaxis Is this a current diagnosis for this admission?: Yes (2) Diabetic hyperosmolar non-ketotic state Is this a current diagnosis for this admission?: YesPlan: Suspected due to noncompliance with medications and/or diet. Patient will be admitted under essentially DKA protocol. Insulin drip. Vigorous fluid hydration. Strict intake and output. Q 4 hours chemistry 7. Hourly Accu- Cheks. Addition of dextrose to intravenous fluid once serum glucose and/or Accu- Cheks 275 or less. Patient is full code. I have strongly encouraged patient not to get out of bed without notifying staff , to avoid a fall with injury. Knee high SCDs for DVT prophylaxis, along with subcutaneous Lovenox. Impression and plans were discussed with patient , who concurs. Time spent in evaluation and management of patient: 64 minutes (3) H/O medication noncompliance Is this a current diagnosis for this admission?: Yes (4) Anemia Qualifiers: Anemia type: unspecified type Qualified Code(s): D64.9 - Anemia, unspecified Is this a current diagnosis for this admission?: YesPlan: Likely due to chronic disease. Follow-up CBC with differential. No need for transfusion at present time. (5) Tobacco dependency Is this a current diagnosis for this admission?: YesPlan: . When necessary Nicotine patch. - Inpatient Certification Based on my medical assessment, after consideration of the patient's comorbidities, presenting symptoms, or acuity I expect that the services needed warrant INPATIENT care.: Yes I certify that my determination is in accordance with my understanding of Medicare's requirements for reasonable and necessary INPATIENT services [42 CFR 412.3e].: Yes Medical Necessity: Need Close Monitoring Due to Risk of Patient Decompensation, Need For IV Fluids, Risk of Complication if Not Cared For in Hospital, Risk of Diagnosis Which Will Require Inpatient Eval/Care/Monitoring Post Hospital Care: D/C or Transfer Summary
[2017-01-16 08:24] LABS: BLOOD UREA NITROGEN 23 mg/dL (7-20); CHLORIDE 98 mmol/L (98-107); CREATININE RESULT 1.41 mg/dL (0.52-1.25); GLUCOSE 102 mg/dL (75-110); POTASSIUM 4.5 mmol/L (3.6-5.0); SODIUM 142.9 mmol/L (137-145)
[2017-01-16 08:37] LABS: ANION GAP 12 (5-19)
[2017-01-16 08:40] LABS: CARBON DIOXIDE 33 mmol/L (22-30)
[2017-01-16] MEDS ORDERED: ONDANSETRON 4 MG TAB.RAPDIS PO PRN (09:45)
[2017-01-16] MEDS ORDERED: INSULIN LISPRO 100 UNIT/ML 3 ML VIAL SUBCUT PRN (09:50)
[2017-01-16] MEDS ORDERED: (PENDING PHARMACY ID) (Atenolol [Tenormin] 25 MG) PO SCH (10:00)
[2017-01-16] MEDS ORDERED: ATENOLOL 50 MG TABLET PO SCH (10:00)
[2017-01-16] MEDS: DOCUSATE SODIUM 100 MG CAPSULE PO SCH (11:00)
[2017-01-16] MEDS ORDERED: INSULIN DETEMIR 100 UNIT/ML 3 ML PEN SUBCUT ONE (11:00)
[2017-01-16] MEDS: ENOXAPARIN SODIUM INJ 40 MG/0.4 ML DISP.SYRIN SUBCUT SCH (11:01)
[2017-01-16] MEDS: AMLODIPINE BESYLATE 5 MG TABLET PO SCH (11:01)
[2017-01-16] MEDS ORDERED: NORMAL SALINE 1000 ML 1,000 ML IV ONE (11:30)
[2017-01-16] MEDS: OXYCODONE HCL IR 5 MG TABLET PO PRN ×2 (12:15→17:45)
[2017-01-16] MEDS: GABAPENTIN 300 MG CAPSULE PO SCH ×2 (12:15→17:46)
--- NOTE | 2017-01-16 13:24 | PDOC PROGRESS REPORT ---
Subjective Progress Note for:: 01/16/17 Subjective:: The patient was seen earlier today on rounds. The patient admits to nausea and has had an episode of vomiting overnight. Patient had symptoms of hypoglycemia. This was overtreated and therefore the patient is now greater than 500. I stressed the importance of strict adherence to IV fluid protocol and DKA protocol. The patient denies any diarrhea, shortness of breath, dizziness, chest pain, heart palpitations, fevers, or chills. The patient has remained afebrile. Blood pressures have been in a good range. When prompted the patient voices no other concerns at this time. Review of systems: The rest of the review of systems is negative. Physical Exam Vital Signs: Temp Pulse Resp BP Pulse Ox 98.5 F 105 H 20 128/75 H 95 01/16/17 10:38 01/16/17 00:25 01/16/17 10:38 01/16/17 10:38 01/16/17 10:38 General appearance: PRESENT: no acute distress, well-developed, well-nourished Head exam: PRESENT: atraumatic, normocephalic Eye exam: PRESENT: conjunctiva pink, EOMI, PERRLA. ABSENT: scleral icterus Ear exam: PRESENT: normal external ear exam Mouth exam: PRESENT: moist, tongue midline Neck exam: ABSENT: carotid bruit, JVD, lymphadenopathy, thyromegaly Respiratory exam: PRESENT: clear to auscultation juan ramon, symmetrical, unlabored. ABSENT: rales, rhonchi, tachypnea, wheezes Cardiovascular exam: PRESENT: RRR. ABSENT: diastolic murmur, rubs, systolic murmur Pulses: PRESENT: normal dorsalis pedis pul Vascular exam: PRESENT: normal capillary refill GI/Abdominal exam: PRESENT: normal bowel sounds, soft. ABSENT: distended, guarding, mass, organolmegaly, rebound, tenderness Rectal exam: PRESENT: deferred Extremities exam: PRESENT: full ROM. ABSENT: calf tenderness, clubbing, pedal edema Neurological exam: PRESENT: alert, awake, oriented to person, oriented to place , oriented to time, oriented to situation, CN II-XII grossly intact. ABSENT: motor sensory deficit Psychiatric exam: PRESENT: appropriate affect, normal mood. ABSENT: homicidal ideation, suicidal ideation Skin exam: PRESENT: dry, intact, warm. ABSENT: cyanosis, rash Results Laboratory Results: 01/16/17 07:57 01/16/17 07:57 Sodium 142.9 Potassium 4.5 Chloride 98 Carbon Dioxide 33 H D Anion Gap 12 BUN 23 H Creatinine 1.41 H Est GFR ( Amer) > 60 Est GFR (Non-Af Amer) 58 L Glucose 102 Calcium 10.0 Impressions: Chest X-Ray 01/16/17 00:00 IMPRESSION: NO ACUTE RADIOGRAPHIC FINDING IN THE CHEST. Assessment & Plan - Diagnosis (1) Diabetic hyperosmolar non-ketotic state Is this a current diagnosis for this admission?: YesPlan: This is been addressed all throughout the day. At the present time the patient' s blood glucose is almost 600. Will restart insulin drip and normal saline. Go ahead and give a bolus as well. Hold basal insulin. Have made nursing staff aware to please contact [phone] once the patient's blood sugar is less than 250. (2) ARF (acute renal failure) Qualifiers: Acute renal failure type: unspecified Qualified Code(s): N17.9 - Acute kidney failure, unspecified Is this a current diagnosis for this admission?: YesPlan: Secondary to #1. Will continue to aggressively hydrate and repeat creatinine. (3) Acute hyperkalemia Is this a current diagnosis for this admission?: YesPlan: Secondary to #1 this has improved with hydration. (4) Hypertension Qualifiers: Hypertension type: essential hypertension Qualified Code(s): I10 - Essential (primary) hypertension Is this a current diagnosis for this admission?: YesPlan: Will continue home medications. (5) Tobacco dependency Is this a current diagnosis for this admission?: YesPlan: Spent 3 minutes discussing smoking cessation education. The patient declines any pharmacological intervention at this time however will add a PRN nicotine patch. (6) DVT prophylaxis Is this a current diagnosis for this admission?: Yes (7) Opiate dependence, continuous Is this a current diagnosis for this admission?: YesPlan: I have verified this with the controlled substance database. It appears the patient does receive oxycodone 15 milligrams every 6 hours as needed. The patient has requested that this be resumed this will continue it he has had this field every month for the past 6 months. (8) Hx of noncompliance with medical treatment, presenting hazards to health Is this a current diagnosis for this admission?: Yes - Time Time Spent with patient: 35 or more minutes Medications reviewed and adjusted accordingly: Yes Anticipated discharge: Home Within: within 24 hours, within 48 hours
[2017-01-16 14:28] LABS: ANION GAP 11 (5-19); BLOOD UREA NITROGEN 21 mg/dL (7-20); CALCIUM 8.9 mg/dL (8.4-10.2); CARBON DIOXIDE 27 mmol/L (22-30); CHLORIDE 98 mmol/L (98-107); CREATININE RESULT 1.33 mg/dL (0.52-1.25); POTASSIUM 4.5 mmol/L (3.6-5.0)
[2017-01-16 14:39] LABS: GLUCOSE 543 mg/dL (75-110)
[2017-01-16] MEDS: HYDROXYZINE PAMOATE 50 MG CAPSULE PO SCH ×2 (15:18→21:49)
--- NOTE | 2017-01-16 19:08 | EKG REPORT ---
SEVERITY:- BORDERLINE ECG - SINUS RHYTHM BORDERLINE T WAVE ABNORMALITIES : Confirmed by: Brayden Silverio MD 16-Jan-2017 19:07:37
[2017-01-16 20:32] LABS: ANION GAP 10 (5-19); BLOOD UREA NITROGEN 19 mg/dL (7-20); CALCIUM 9.1 mg/dL (8.4-10.2); CARBON DIOXIDE 29 mmol/L (22-30); CHLORIDE 102 mmol/L (98-107); CREATININE RESULT 1.37 mg/dL (0.52-1.25); GLUCOSE 117 mg/dL (75-110); POTASSIUM 3.8 mmol/L (3.6-5.0); SODIUM 140.7 mmol/L (137-145)
[2017-01-17] MEDS ORDERED: POTASSI CL 20 MEQ/NS 1L 1,000 ML IV ONE (04:29)
[2017-01-17] MEDS: HYDROXYZINE PAMOATE 50 MG CAPSULE PO SCH ×3 (05:32→21:55)
[2017-01-17] MEDS: GABAPENTIN 300 MG CAPSULE PO SCH ×5 (05:32→23:55)
[2017-01-17 06:24] LABS: ANION GAP 10 (5-19); BLOOD UREA NITROGEN 15 mg/dL (7-20); CALCIUM 9.2 mg/dL (8.4-10.2); CARBON DIOXIDE 26 mmol/L (22-30); CHLORIDE 100 mmol/L (98-107); CREATININE RESULT 1.14 mg/dL (0.52-1.25); POTASSIUM 4.6 mmol/L (3.6-5.0); SODIUM 135.8 mmol/L (137-145)
[2017-01-17 06:42] LABS: GLUCOSE 473 mg/dL (75-110)
[2017-01-17] MEDS ORDERED: NORMAL SALINE 100 ML with INSULIN REGULAR, HUMAN 100 UNIT IV PRN ×2 (06:42)
[2017-01-17] MEDS: OXYCODONE HCL IR 5 MG TABLET PO PRN ×4 (06:43→19:36)
[2017-01-17] MEDS ORDERED: POTASSI CL 20 MEQ/NS 1L 1,000 ML IV PRN (06:46)
[2017-01-17] MEDS: DOCUSATE SODIUM 100 MG CAPSULE PO SCH (09:54)
[2017-01-17] MEDS: ENOXAPARIN SODIUM INJ 40 MG/0.4 ML DISP.SYRIN SUBCUT SCH (09:54)
[2017-01-17] MEDS: AMLODIPINE BESYLATE 5 MG TABLET PO SCH (09:54)
[2017-01-17] MEDS: INSULIN DETEMIR 100 UNIT/ML 3 ML PEN SUBCUT SCH (10:32)
[2017-01-17 15:11] LABS: ANION GAP 12 (5-19); BLOOD UREA NITROGEN 14 mg/dL (7-20); CALCIUM 9.1 mg/dL (8.4-10.2); CARBON DIOXIDE 26 mmol/L (22-30); CHLORIDE 98 mmol/L (98-107); CREATININE RESULT 1.19 mg/dL (0.52-1.25); GLUCOSE 399 mg/dL (75-110); POTASSIUM 4.7 mmol/L (3.6-5.0); SODIUM 136.3 mmol/L (137-145)
[2017-01-17] MEDS ORDERED: NORMAL SALINE 1000 ML 2,000 ML IV PRN (15:15)
--- NOTE | 2017-01-17 15:34 | PDOC PROGRESS REPORT ---
Subjective Progress Note for:: 01/17/17 Subjective:: The patient was seen earlier today on rounds. The patient states that he is completely compliant with his glucose and insulin regimen. The patient states that he checks his glucose 4 times a day and applies appropriate insulin coverage during that time. The patient states that he feels weak but has no specific complaint. The patient has remained afebrile. Blood pressures have been in a good range. When prompted the patient voices no other concerns at this time. Review of systems: The rest of the review of systems is negative. Physical Exam Vital Signs: Temp Pulse Resp BP Pulse Ox 98.3 F 99 12 130/73 H 100 01/17/17 11:11 01/17/17 13:53 01/17/17 11:11 01/17/17 11:11 01/17/17 11:11 Intake & Output 01/15/17 01/16/17 01/17/17 23:59 23:59 23:59 Intake Total 652 1417 Output Total 0 Balance 652 1417 Weight 90.6 kg General appearance: PRESENT: no acute distress, well-developed, well-nourished Head exam: PRESENT: atraumatic, normocephalic Eye exam: PRESENT: conjunctiva pink, EOMI, PERRLA. ABSENT: scleral icterus Ear exam: PRESENT: normal external ear exam Mouth exam: PRESENT: moist, tongue midline Neck exam: ABSENT: carotid bruit, JVD, lymphadenopathy, thyromegaly Respiratory exam: PRESENT: clear to auscultation juan ramon, symmetrical, unlabored. ABSENT: rales, rhonchi, tachypnea, wheezes Cardiovascular exam: PRESENT: RRR. ABSENT: diastolic murmur, rubs, systolic murmur Pulses: PRESENT: normal dorsalis pedis pul Vascular exam: PRESENT: normal capillary refill GI/Abdominal exam: PRESENT: normal bowel sounds, soft. ABSENT: distended, guarding, mass, organolmegaly, rebound, tenderness Rectal exam: PRESENT: deferred Extremities exam: PRESENT: full ROM. ABSENT: calf tenderness, clubbing, pedal edema Neurological exam: PRESENT: alert, awake, oriented to person, oriented to place , oriented to time, oriented to situation, CN II-XII grossly intact. ABSENT: motor sensory deficit Psychiatric exam: PRESENT: appropriate affect, normal mood. ABSENT: homicidal ideation, suicidal ideation Skin exam: PRESENT: dry, intact, warm. ABSENT: cyanosis, rash Results Laboratory Results: 01/17/17 14:22 01/16/17 01/17/17 01/17/17 20:00 05:57 14:22 Sodium 140.7 135.8 L 136.3 L Potassium 3.8 4.6 4.7 Chloride 102 100 98 Carbon Dioxide 29 26 26 Anion Gap 10 10 12 BUN 19 15 14 Creatinine 1.37 H 1.14 1.19 Est GFR ( Amer) > 60 > 60 > 60 Est GFR (Non-Af Amer) > 60 > 60 > 60 Glucose 117 H 473 H* 399 H Calcium 9.1 9.2 9.1 Impressions: Chest X-Ray 01/16/17 00:00 IMPRESSION: NO ACUTE RADIOGRAPHIC FINDING IN THE CHEST. Assessment & Plan - Diagnosis (1) Diabetic hyperosmolar non-ketotic state Is this a current diagnosis for this admission?: YesPlan: The patient's blood sugar fell below 250. The patient's fluids were transition with dextrose. Patient was allowed to eat and was given basal dose insulin. The patient's blood sugar once again re-spiked was found to be mildly hyponatremic therefore the patient was bolused with 2 liters of saline will transition the before meals and at bedtime Accu-Cheks and monitor. (2) ARF (acute renal failure) Qualifiers: Acute renal failure type: unspecified Qualified Code(s): N17.9 - Acute kidney failure, unspecified Is this a current diagnosis for this admission?: YesPlan: Secondary to #1. Will continue to aggressively hydrate and repeat creatinine. (3) Acute hyperkalemia Is this a current diagnosis for this admission?: YesPlan: Secondary to #1 this has improved with hydration. (4) Hypertension Qualifiers: Hypertension type: essential hypertension Qualified Code(s): I10 - Essential (primary) hypertension Is this a current diagnosis for this admission?: YesPlan: Will continue home medications. (5) Tobacco dependency Is this a current diagnosis for this admission?: YesPlan: Spent 3 minutes discussing smoking cessation education. The patient declines any pharmacological intervention at this time however will add a PRN nicotine patch. (6) DVT prophylaxis Is this a current diagnosis for this admission?: Yes (7) Opiate dependence, continuous Is this a current diagnosis for this admission?: YesPlan: I have verified this with the controlled substance database. It appears the patient does receive oxycodone 15 milligrams every 6 hours as needed. The patient has requested that this be resumed this will continue it he has had this field every month for the past 6 months. (8) Hx of noncompliance with medical treatment, presenting hazards to health Is this a current diagnosis for this admission?: Yes - Time Time Spent with patient: 25-34 minutes Medications reviewed and adjusted accordingly: Yes Anticipated discharge: Home Within: within 24 hours
[2017-01-17] MEDS: INSULIN LISPRO 100 UNIT/ML 3 ML VIAL SUBCUT PRN ×2 (17:04→21:56)
[2017-01-18] MEDS: OXYCODONE HCL IR 5 MG TABLET PO PRN ×2 (06:07→11:55)
[2017-01-18] MEDS: HYDROXYZINE PAMOATE 50 MG CAPSULE PO SCH (06:07)
[2017-01-18] MEDS: GABAPENTIN 300 MG CAPSULE PO SCH ×2 (06:07→11:55)
[2017-01-18 07:57] VITALS: BP 154/103
[2017-01-18] MEDS: AMLODIPINE BESYLATE 5 MG TABLET PO SCH (09:14)
[2017-01-18] MEDS: ENOXAPARIN SODIUM INJ 40 MG/0.4 ML DISP.SYRIN SUBCUT SCH (09:14)
[2017-01-18] MEDS: INSULIN DETEMIR 100 UNIT/ML 3 ML PEN SUBCUT SCH (09:14)
[2017-01-18] MEDS: DOCUSATE SODIUM 100 MG CAPSULE PO SCH (09:14)
[2017-01-18] MEDS: INSULIN LISPRO 100 UNIT/ML 3 ML VIAL SUBCUT PRN (10:30)
[2017-01-18] MEDS ORDERED: INSULIN LISPRO 100 UNIT/ML 3 ML VIAL SUBCUT ONE ×2 (11:15)
--- NOTE | 2017-01-18 15:10 | PDOC DISCHARGE SUMMARY ---
General - Admit/Disc Date/PCP Admission Date/Primary Care Provider: 01/16/17 07:56 Has been referred to the primary care provider who is admitted it operations analyst the day the patient was admitted. Discharge Date: 01/18/17 - Discharge Diagnosis (1) Diabetic hyperosmolar non-ketotic state Is this a current diagnosis for this admission?: Yes (2) ARF (acute renal failure) Is this a current diagnosis for this admission?: Yes (3) Acute hyperkalemia Is this a current diagnosis for this admission?: Yes (4) Hypertension Is this a current diagnosis for this admission?: Yes (5) Tobacco dependency Is this a current diagnosis for this admission?: Yes (6) DVT prophylaxis Is this a current diagnosis for this admission?: Yes (7) Opiate dependence, continuous Is this a current diagnosis for this admission?: Yes (8) Cocaine use Is this a current diagnosis for this admission?: Yes (9) Hx of noncompliance with medical treatment, presenting hazards to health Is this a current diagnosis for this admission?: Yes - Additional Information Resuscitation Status: Full Code Discharge Diet: Diabetic Discharge Activity: Activity As Tolerated Home Medications: Amlodipine Besylate [Norvasc 5 mg Tablet] 5 mg PO DAILY 12/16/16 Atenolol [Tenormin] 25 mg PO DAILY 12/16/16 Gabapentin [Neurontin 300 mg Capsule] 300 mg PO Q6 12/16/16 Hydroxyzine Pamoate [Vistaril 50 mg Capsule] 50 mg PO Q8HP PRN 12/16/16 Insulin Aspart [Novolog Flexpen] 0 unit SQ .PERSLIDINGSCALE #3 12/21/16 Insulin Detemir [Levemir Flextouch] 20 unit SQ BID #3 12/21/16 Oxycodone HCl 15 mg PO Q6HP PRN 12/31/16 Additional Information: JAZZ PAREDES Search Criteria: Last Name 'Jazz' and First Name 'Cristian' and = [birth year]' and Request Period = '07/20/16' to '01/16/17' - 5 out of 5 Recipients Selected. Fill Date Product, Str, Form Qty Days Pt ID Prescriber Written RX# N/R* Pharm MED+ ------ ---- --------- --- ------- ----- -------- 01/03/2017 OXYCODONE HCL 15 MG TABLET 120.00 30 [id number] 01/03/2017 [id number] N [id number] 90.0 11/29/2016 OXYCODONE HCL 15 MG TABLET 120.00 30 [id number] 11/29/2016 [id number] N [id number] 90.0 10/24/2016 OXYCODONE HCL 15 MG TABLET 120.00 30 [id number] 10/24/2016 [id number] N [id number] 90.0 10/09/2016 OXYCODONE HCL 15 MG TABLET 60.00 15 [id number] 10/09/2016 [id number] N [id number] 90.0 09/05/2016 OXYCODONE HCL 15 MG TABLET 120.00 30 [id number] 09/05/2016 [id number] N [id number] 90.0 08/03/2016 OXYCODONE HCL 15 MG TABLET 120.00 30 [id number] 08/03/2016 [id number] N [id number] 90.0 [id number] CHRYSTAL RIVERA MD; [facility], [address] [place] [address] [id number] [facility]; MAGNETIC RESONANCE TECHNOLOGIST: [facility], [facility] [id number] HASMUKH ESPINAL (LAURIE); [facility], [address] [place] [id number] SANJUANA LEW MD; [facility], [place], [address] [facility], [place] [address] [address], [facility] [id number] [employer] [facility] NO; [id number] [facility] History of Present Illness Patient complains of: Nausea vomiting and high blood sugar History of Present Illness: CRISTIAN SCHULZ is a 31 year old Ariella male with a past medical history of diabetes mellitus and opiate dependency with chronic noncompliance with both medications and diet, who presents to the emergency room for evaluation of nausea vomiting and hyperglycemia. Hospitalized under his previous primary care provider 12/16/2016 through 12/21/2016, with discharge diagnoses including diabetic hyperosmolar nonketotic state, history of medication noncompliance, and hypertension. Patient noted the onset of headache, nausea vomiting, and high blood sugar less than 24 hours prior to presentation to the emergency room. Nothing in particular made the nausea vomiting worse. Questionable fever and chills. Denies any "sore spots" anywhere on his body. No chest or abdominal pain. Reportedly takes Levemir 20 units at night and then again in the morning. Took 20 units of NovoLog prior to coming to the emergency room. Blood sugar 400 around 5 PM. read "high" for the paramedics. Patient told ER physician that he takes his medications as prescribed, but as noted above, review of old records reveals a reported history of chronic noncompliance with both medications and diet. I spoke with the patient's pharmacy according to his Medicaid drug history the patient has not taken the Levemir prescribed on 12/22/2015 to be filled. The patient does have 3 refills on this Levemir. Patient's blood pressure medications also have refills on them. Engine Designer from [employer] stated that they have tried several times to sign the patient up for med assist however the patient refuses and is noncompliant with his medications. Hospital Course Hospital Course: The patient was admitted to [facility]. Diabetic ketoacidosis protocol was utilized including an insulin drip, every hourly blood glucose checks and aggressive hydration. Patient was not severely acidotic and was able to maintain airway. Electrolytes were corrected accordingly. Potassium normalized with hydration. Chronic beta elaina was discontinued due to patient's cocaine use. High suspicion the patient sabotaged his clinical course with high concentrated sweets in an effort to avoid discharge 2. Please see previous progress notes and nursing notes on the matter. Physical Exam Vital Signs: Temp Pulse Resp BP Pulse Ox 97.8 F 94 12 154/103 H 100 01/18/17 07:57 01/18/17 07:57 01/18/17 07:57 01/18/17 07:38 01/18/17 07:57 Intake & Output 01/16/17 01/17/17 01/18/17 23:59 23:59 23:59 Intake Total 652 4137 245 Output Total 0 0 0 Balance 652 4137 245 Weight 90.6 kg 91.3 kg General appearance: PRESENT: no acute distress, well-developed, well-nourished Head exam: PRESENT: atraumatic, normocephalic Eye exam: PRESENT: conjunctiva pink, EOMI, PERRLA. ABSENT: scleral icterus Ear exam: PRESENT: normal external ear exam Mouth exam: PRESENT: moist, tongue midline Neck exam: ABSENT: carotid bruit, JVD, lymphadenopathy, thyromegaly Respiratory exam: PRESENT: clear to auscultation juan ramon, symmetrical, unlabored. ABSENT: rales, rhonchi, tachypnea, wheezes Cardiovascular exam: PRESENT: RRR. ABSENT: diastolic murmur, rubs, systolic murmur Pulses: PRESENT: normal dorsalis pedis pul Vascular exam: PRESENT: normal capillary refill GI/Abdominal exam: PRESENT: normal bowel sounds, soft. ABSENT: distended, guarding, mass, organolmegaly, rebound, tenderness Rectal exam: PRESENT: deferred Extremities exam: PRESENT: full ROM. ABSENT: calf tenderness, clubbing, pedal edema Neurological exam: PRESENT: alert, awake, oriented to person, oriented to place , oriented to time, oriented to situation, CN II-XII grossly intact. ABSENT: motor sensory deficit Psychiatric exam: PRESENT: appropriate affect, normal mood. ABSENT: homicidal ideation, suicidal ideation Skin exam: PRESENT: dry, intact, warm. ABSENT: cyanosis, rash Results Laboratory Results: Labs- Last Values WBC 10.1 10^3/uL (4.0-10.5) 01/16/17 00:25 RBC 4.67 10^6/uL (4.35-5.55) 01/16/17 00:25 Hgb 11.1 g/dL (13.5-17.0) L 01/16/17 00:25 Hct 37.1 % (37.9-51.0) L 01/16/17 00:25 MCV 79 fl (80-97) L D 01/16/17 00:25 MCH 23.7 pg (27.0-33.4) L 01/16/17 00:25 MCHC 29.9 g/dL (32.0-36.0) L 01/16/17 00:25 RDW 17.2 % (11.5-14.0) H 01/16/17 00:25 Plt Count 267 10^3/uL (150-450) 01/16/17 00:25 Seg Neutrophils % 89.0 % (42-78) H 01/16/17 00:25 Lymphocytes % 6.4 % (13-45) L 01/16/17 00:25 Monocytes % 3.6 % (3-13) 01/16/17 00:25 Eosinophils % 0.1 % (0-6) 01/16/17 00:25 Basophils % 0.9 % (0-2) 01/16/17 00:25 Absolute Neutrophils 9.0 10^3/uL (1.7-8.2) H 01/16/17 00:25 Absolute Lymphocytes 0.7 10^3/uL (0.5-4.7) 01/16/17 00:25 Absolute Monocytes 0.4 10^3/uL (0.1-1.4) 01/16/17 00:25 Absolute Eosinophils 0.0 10^3/uL (0.0-0.6) 01/16/17 00:25 Absolute Basophils 0.1 10^3/uL (0.0-0.2) 01/16/17 00:25 VBG pH 7.37 (7.30-7.42) 01/16/17 03:42 VBG pCO2 44.9 mmHg (35-63) 01/16/17 03:42 VBG HCO3 25.6 mmol/L (20-32) 01/16/17 03:42 VBG Base Excess 0.1 mmol/L 01/16/17 03:42 Sodium 136.3 mmol/L (137-145) L 01/17/17 14:22 Potassium 4.7 mmol/L (3.6-5.0) 01/17/17 14:22 Chloride 98 mmol/L (98-107) 01/17/17 14:22 Carbon Dioxide 26 mmol/L (22-30) 01/17/17 14:22 Anion Gap 12 (5-19) 01/17/17 14:22 BUN 14 mg/dL (7-20) 01/17/17 14:22 Creatinine 1.19 mg/dL (0.52-1.25) 01/17/17 14:22 Est GFR ( Amer) > 60 (>60) 01/17/17 14:22 Est GFR (Non-Af Amer) > 60 (>60) 01/17/17 14:22 Glucose 399 mg/dL (75-110) H 01/17/17 14:22 POC Glucose 464 mg/dL (70-110) H* 01/18/17 09:53 Calcium 9.1 mg/dL (8.4-10.2) 01/17/17 14:22 Magnesium 1.8 mg/dL (1.6-2.3) 01/16/17 00:25 Total Bilirubin 0.4 mg/dL (0.2-1.3) 01/16/17 00:25 Direct Bilirubin 0.2 mg/dL (0.0-0.4) 01/16/17 00:25 Indirect Bilirubin Not Reportable 01/16/17 00:25 Neonat Total Bilirubin Not Reportable 01/16/17 00:25 AST 44 U/L (17-59) 01/16/17 00:25 ALT 31 U/L (21-72) 01/16/17 00:25 Alkaline Phosphatase 132 U/L (38-126) H 01/16/17 00:25 Troponin I < 0.012 ng/mL 01/16/17 03:42 Total Protein 6.4 g/dL (6.3-8.2) 01/16/17 00:25 Albumin 3.7 g/dL (3.5-5.0) 01/16/17 00:25 Urine Color COLORLESS 01/16/17 00:25 Urine Appearance CLEAR 01/16/17 00:25 Urine pH 6.0 (5.0-9.0) 01/16/17 00:25 Ur Specific [place] 1.014 01/16/17 00:25 Urine Protein 30 mg/dL (NEGATIVE) H 01/16/17 00:25 Urine Glucose (UA) >=500 mg/dL (NEGATIVE) H 01/16/17 00:25 Urine Ketones NEGATIVE mg/dL (NEGATIVE) 01/16/17 00:25 Urine Blood NEGATIVE (NEGATIVE) 01/16/17 00:25 Urine Nitrite NEGATIVE (NEGATIVE) 01/16/17 00:25 Urine Bilirubin NEGATIVE (NEGATIVE) 01/16/17 00:25 Urine Urobilinogen NEGATIVE mg/dL (<2.0) 01/16/17 00:25 Ur Leukocyte Esterase NEGATIVE (NEGATIVE) 01/16/17 00:25 Urine RBC (Auto) 0 /HPF 01/16/17 00:25 Urine Mucus (Auto) RARE /LPF 01/16/17 00:25 Urine Ascorbic Acid NEGATIVE (NEGATIVE) 01/16/17 00:25 Urine Opiates Screen NEGATIVE 01/16/17 00:25 Urine Methadone Screen NEGATIVE 01/16/17 00:25 Ur Barbiturates Screen NEGATIVE 01/16/17 00:25 Ur Phencyclidine Scrn NEGATIVE 01/16/17 00:25 Ur Amphetamines Screen NEGATIVE 01/16/17 00:25 U Benzodiazepines Scrn NEGATIVE 01/16/17 00:25 Urine Cocaine Screen UNCONFIRMED POSITIVE 01/16/17 00:25 U Marijuana (THC) Screen NEGATIVE 01/16/17 00:25 Impressions: Chest X-Ray 01/16/17 00:00 IMPRESSION: NO ACUTE RADIOGRAPHIC FINDING IN THE CHEST. Qualifiers PATEINT BEING DISCHARGED WITH ANY OF THE FOLLOWING DIAGNOSIS?: No Plan Time Spent: Less than 30 Minutes
== END 2017-01-18 12:53 | disposition home or self-care (01) | DRG 638 ==
LOC: ER 00:06 → EH 01:50 → OBSVTOIN 07:56 → 3S 16:00
PROVIDERS: ADMIT Family Medicine; ATTEND Family Medicine
DX: E10.65 Type 1 diabetes mellitus with hyperglycemia (principal); N17.9 Acute kidney failure, unspecified; I10 Essential (primary) hypertension; F32.9 Major depressive disorder, single episode, unspecified; F41.9 Anxiety disorder, unspecified; F17.210 Nicotine dependence, cigarettes, uncomplicated; G43.909 Migraine, unspecified, not intractable, without status migrainosus; F14.90 Cocaine use, unspecified, uncomplicated; D64.9 Anemia, unspecified; E87.5 Hyperkalemia; Z91.14 Patient's other noncompliance with medication regimen; Z79.891 Long term (current) use of opiate analgesic; Z79.4 Long term (current) use of insulin; Z79.899 Other long term (current) drug therapy
CPT/HCPCS: 36415; 71010; 80048; 80053; 80307; 81001; 82803; 82962; 83735; 84484; 85025; 93005; 93010; 96374; 99285; J1650; J1815; J2405; J3480; J3490; J7030

== ENCOUNTER 2017-01-19 10:15 | Emergency (ER) | payer MEDICAID ==
[2017-01-19] MEDS ORDERED: RINGERS SOLUTION,LACTATED 2,000 ML IV ONE (10:36)
--- NOTE | 2017-01-19 10:39 | ER Document Report ---
ED Medical Screen (RME) - General Chief Complaint: High Blood Sugar Stated Complaint: BLOOD SUGAR PROBLEMS Notes: Patient presents today again with hyperglycemia with associated epigastric abdominal discomfort. He was just discharged from the hospital yesterday after being admitted with HHS. Overall in appearance and in no distress. Patient continues to insist that he is medication compliant. I have greeted and performed a rapid initial assessment of this patient. A comprehensive ED assessment and evaluation of the patient, analysis of test results and completion of medical decision making process will be conducted by an additional ED providers. TRAVEL OUTSIDE OF THE [place] IN LAST 30 DAYS: No - Related Data Allergies/Adverse Reactions: No Known Allergies Allergy (Verified 01/19/17 10:22) Past Medical History - Social History Family history: Reviewed & Not Pertinent - Past Medical History Cardiac Medical History: Reports: Hx Hypertension Denies: Hx Congestive Heart Failure, Hx DVT, Hx Heart Attack, Hx Hypercholesterolemia, Hx Pulmonary Embolism Pulmonary Medical History: Reports: Hx Asthma - as child Denies: Hx COPD, Hx Sleep Apnea Neurological Medical History: Reports: Hx Migraine. Denies: Hx Seizures Endocrine Medical History: Reports: Hx Diabetes Mellitus Type 1. Denies: Hx Diabetes Mellitus Type 2, Hx Hyperthyroidism, Hx Hypothyroidism Renal/ Medical History: Denies: Hx Peritoneal Dialysis GI Medical History: Denies: Hx Cirrhosis, Hx Gastroesophageal Reflux Disease, Hx Hepatitis Musculoskeltal Medical History: Denies Hx Arthritis Psychiatric Medical History: Reports: Hx Anxiety, Hx Depression Infectious Medical History: Denies: Hx C-Diff, Hx Hepatitis, Hx MRSA Past Surgical History: Reports: Hx Appendectomy, Hx Oral Surgery - wisdom teeth , Other - [place] teeth extraction - Immunizations Hx Diphtheria, Pertussis, Tetanus Vaccination: Yes Physical Exam - Vital signs Notes: PHYSICAL EXAMINATION: GENERAL: Well-appearing, well-nourished and in no acute distress. HEAD: Atraumatic, normocephalic. EYES: sclera anicteric, conjunctiva are normal. ENT: Moist mucous membranes. NECK: Normal range of motion LUNGS: Normal work of breathing HEART: 2+ radial pulses bilaterally EXTREMITIES: no pitting or edema. No cyanosis. NEUROLOGICAL: No focal neurological deficits. Moves all extremities spontaneously and on command. PSYCH: Normal mood, normal affect. SKIN: Warm, Dry, normal turgor, no rashes or lesions noted.
[2017-01-19] MEDS ORDERED: INSULIN REG, HUMAN 100 UNIT/ML 3 ML VIAL (PYX) SUBCUT ONE (11:30)
[2017-01-19] MEDS ORDERED: INSULIN DETEMIR 100 UNIT/ML 3 ML PEN SUBCUT ONE (11:34)
[2017-01-19 11:37] LABS: VENOUS BLOOD BASE EXCESS 1.1 mmol/L; VENOUS BLOOD HCO3 27.3 mmol/L (20-32); VENOUS BLOOD PCO2 49.9 mmHg (35-63); VENOUS BLOOD PH 7.36 (7.30-7.42)
--- NOTE | 2017-01-19 11:37 | ER Document Report ---
ED General - General Chief Complaint: High Blood Sugar Stated Complaint: BLOOD SUGAR PROBLEMS Notes: Patient is here because his blood sugar is high. Patient is an insulin- dependent diabetic, well known to this Emergency Department and to this physician. Patient was just admitted for high blood sugar 3 days ago and discharged yesterday. He says that his blood sugar was 237 last night. He took his usual doses of NovoLog 15 units and Levemir 20 units last night. This morning, his took their car to go somewhere out of state and his medicines are in the car so he was unable to take his morning doses of insulin. He says that his blood sugars are running high. Some nausea but not vomiting. No other complaints. Patient says he normally takes 15 units of NovoLog flex pen with each meal and then he takes Levemir flex pen 20 units every morning and 20 units every night. TRAVEL OUTSIDE OF THE [place] IN LAST 30 DAYS: No - Related Data Allergies/Adverse Reactions: No Known Allergies Allergy (Verified 01/19/17 10:22) Past Medical History - Social History Smoking Status: Never Smoker Frequency of alcohol use: None Drug Abuse: None Family History: Reviewed & Not Pertinent, DM, Hypertension Patient has suicidal ideation: No Patient has homicidal ideation: No - Past Medical History Cardiac Medical History: Reports: Hx Hypertension Pulmonary Medical History: Reports: Hx Asthma - as child Neurological Medical History: Reports: Hx Migraine Endocrine Medical History: Reports: Hx Diabetes Mellitus Type 1 Musculoskeltal Medical History: Denies Hx Arthritis Psychiatric Medical History: Reports: Hx Anxiety, Hx Depression Past Surgical History: Reports: Hx Appendectomy, Hx Oral Surgery - wisdom teeth , Other - [place] teeth extraction - Immunizations Hx Diphtheria, Pertussis, Tetanus Vaccination: Yes Hx Pneumococcal Vaccination: 09/16/00 Review of Systems - Review of Systems Notes: REVIEW OF SYSTEMS: CONSTITUTIONAL : Denies fever. EENT: Denies eye, ear, nose or mouth or throat pain or other symptoms. CARDIOVASCULAR: Denies chest pain. RESPIRATORY: Denies cough, chest congestion, or shortness of breath. GASTROINTESTINAL: Some nausea, but not vomiting. No abdominal pains. No diarrhea. GENITOURINARY: Denies difficulty or painful urinating, urinary frequency, blood in urine. MUSCULOSKELETAL: Denies back or neck pain. Denies joint pain or swelling. SKIN: Denies rash or skin lesions. NEUROLOGICAL: Denies LOC or altered mental status. Denies headache. Denies sensory loss or motor deficits. ALL OTHER SYSTEMS REVIEWED AND NEGATIVE. Physical Exam - Vital signs Interpretation: Normal - Temp 98.7, pulse 97, blood pressure 146/88, respirations 18, O2 sat 97%. - Notes Notes: PHYSICAL EXAMINATION: GENERAL: Well-appearing, in no acute distress. Ambulatory without difficulty. HEAD: Atraumatic, normocephalic. NECK: Normal range of motion, supple. LUNGS: Breath sounds clear and equal bilaterally. HEART: Regular rate and rhythm without murmurs. ABDOMEN: Soft, nontender. No guarding or rebound. BACK: No tenderness throughout entire back. EXTREMITIES: Normal range of motion without pain. NEUROLOGICAL: Normal speech, normal gait. Normal sensory, motor, and reflex exams. Awake, alert, and oriented x3. Cranial nerves normal. PSYCH: Normal mood, normal affect. Not suicidal. SKIN: Warm, dry, no rashes. Course - Re-evaluation Re-evalutation: 01/19/17 15:13 Patient was given 3 L of IV fluids in the emergency department. He was also given the appropriate amount of his insulin. He ate lunch without any problems. Accu-Chek taken about 2:30 PM showed a blood sugar of about 450. Remainder of his labs were all normal. I feel the patient is stable for discharge. - Laboratory Result Diagrams: 01/19/17 11:10 01/19/17 12:16 Laboratory results interpreted by me: 01/19/17 01/19/17 01/19/17 11:10 11:10 12:16 WBC 11.4 H Hgb 11.8 L Hct 37.0 L MCV 76 L MCH 24.3 L MCHC 31.9 L RDW 17.5 H Seg Neutrophils % 85.4 H Lymphocytes % 8.9 L Absolute Neutrophils 9.8 H Sodium 134.8 L Chloride 96 L Creatinine 1.30 H Glucose 623 H* Urine Protein 100 H Urine Glucose (UA) >=500 H Urine Ketones 20 H Discharge - Discharge Clinical Impression: Hyperglycemia, IDDM (insulin dependent diabetes mellitus) Condition: Stable Disposition: HOME, SELF-CARE Additional Instructions: HYPERGLYCEMIA (HIGH BLOOD SUGAR): You have an abnormally high blood sugar. Not all high blood sugar requires long-term treatment. High blood sugar can be due to medications, , or the stress of illness. (These cases are "borderline diabetes.") If the doctor feels your high blood sugar might resolve with time, you may not require treatment now. It's very important that you follow through, to see if the blood sugar returns to normal levels. Uncontrolled high blood sugar leads to early heart disease, strokes, nerve damage, eye damage, and kidney damage. Call the physician if there is faintness, excess sleepiness, or very rapid breathing. DIABETES: You have an abnormally high blood sugar.. Not all high blood sugar requires long-term treatment. High blood sugar can be due to medications, , or the stress of illness. (These cases are "borderline diabetes.") If the doctor feels your high blood sugar might get better with time, you may not require treatment now. It's very important that you follow through. Uncontrolled high blood sugar leads to early heart disease, strokes, nerve damage, eye damage, and kidney damage. All diabetics should follow a diet designed to control the blood sugar. Overweight diabetics should exercise regularly and lose weight. If this is not sufficient to control the blood sugar, pills or insulin shots are necessary. Younger people who develop diabetes almost always require insulin daily. Home testing of blood sugars or urine sugar is required. Diabetic teaching is available to help you figure insulin doses and monitor the blood sugar. Call the physician if there is faintness, excess sleepiness, or very rapid breathing. If hypoglycemia (LOW blood sugar) develops, symptoms are shakiness, weakness, sweating, and confusion. In this case, you should eat or drink something with sugar at once. INSULIN: Insulin is a natural hormone that lowers blood sugar. Normal blood sugar prevents complications of diabetes. For most diabetics, insulin is the best way to treat the illness. Be sure you know how to measure the insulin correctly. Insulin is measured in "units." There are three types of insulin: N (NPH or long acting), R (regular or short acting), and L (Lente or very long acting). Be sure you are using the right amount of each type. Insulin must be injected into the fat. You can use the abdomen, upper arms , and thighs. Select a different injection site every time. Wipe the site with alcohol before injecting. When first starting insulin, some adjusting of the insulin dose is necessary. Keep a record of each insulin dose and time of injection, and of the blood sugar and the time you test it. Sometimes insulin can make the blood sugar too low. If you become dizzy, sweaty, shaky, or confused, you may be having a hypoglycemic episode. Immediately use juice or some other sweet food. Call the doctor if the symptoms don't go away. Take your insulin medication as prescribed. Drink plenty of fluids. Return if your symptoms worsen or you develop new symptoms such as fever, etc. FOLLOW-UP CARE: If you have been referred to a physician for follow-up care, call the physician s office for an appointment as you were instructed or within the next two days. If you experience worsening or a significant change in your symptoms, notify the physician immediately or return to the Emergency Department at any time for re-evaluation.
[2017-01-19 11:40] LABS: ABSOLUTE BASOPHILS # (AUTO) 0.1 10^3/uL (0.0-0.2); ABSOLUTE MONOCYTES (AUTO) 0.6 10^3/uL (0.1-1.4); ABSOLUTE NEUT (AUTO) 9.8 10^3/uL (1.7-8.2); BASOPHILS % (AUTO) 0.7 % (0-2); EOSINOPHILS % (AUTO) 0.1 % (0-6); HEMOGLOBIN 11.8 g/dL (13.5-17.0); HGB HCT DIFFERENCE -1.6; LYMPHOCYTES % (AUTO) 8.9 % (13-45); MEAN CORPUSCULAR HEMOGLOBIN 24.3 pg (27.0-33.4); MEAN CORPUSCULAR HGB CONC 31.9 g/dL (32.0-36.0); MEAN CORPUSCULAR VOLUME 76 fl (80-97); MONOCYTES % (AUTO) 4.9 % (3-13); RED BLOOD COUNT 4.85 10^6/uL (4.35-5.55); RED CELL DISTRIBUTION WIDTH 17.5 % (11.5-14.0); SEGMENTED NEUTROPHILS % (AUTO) 85.4 % (42-78); WHITE BLOOD COUNT 11.4 10^3/uL (4.0-10.5)
[2017-01-19 11:47] LABS: APPEARANCE,URINE CLEAR; BILIRUBIN,URINE NEGATIVE (NEGATIVE); GLUCOSE, URINE >=500 mg/dL (NEGATIVE); KETONES,URINE 20 mg/dL (NEGATIVE); LEUKOCYTE ESTERASE,URINE NEGATIVE (NEGATIVE); NITRITE,URINE NEGATIVE (NEGATIVE); PROTEIN,URINE 100 mg/dL (NEGATIVE); URINE SPECIFIC GRAVITY 1.025; UROBILINOGEN,URINE NEGATIVE mg/dL (<2.0)
[2017-01-19 12:42] LABS: ANION GAP 15 (5-19); BLOOD UREA NITROGEN 20 mg/dL (7-20); CALCIUM 9.4 mg/dL (8.4-10.2); CARBON DIOXIDE 24 mmol/L (22-30); CHLORIDE 96 mmol/L (98-107); POTASSIUM 4.6 mmol/L (3.6-5.0); SODIUM 134.8 mmol/L (137-145)
[2017-01-19 12:52] LABS: GLUCOSE 623 mg/dL (75-110)
[2017-01-19] MEDS ORDERED: NORMAL SALINE 1000 ML 1,000 ML IV ONE (13:16)
[2017-01-19 15:48] VITALS: BP 137/84
== END 2017-01-19 15:28 | disposition home or self-care (01) ==
LOC: ER 10:15
DX: E10.65 Type 1 diabetes mellitus with hyperglycemia (principal); T38.3X6A Underdosing of insulin and oral hypoglycemic [antidiabetic] drugs, initial encounter; Z91.14 Patient's other noncompliance with medication regimen; R11.0 Nausea; I10 Essential (primary) hypertension
CPT/HCPCS: 99284; 96361; 96365; 96366; 36415; 82962; 85025; 80048; 81001; 82803; J1815 ×2; J7030; J7120

== ENCOUNTER 2017-01-19 20:07 | Emergency (ER) | payer MEDICAID ==
--- NOTE | 2017-01-19 21:32 | ER Document Report ---
ED Psych Disorder / Suicide - General Chief Complaint: Suicidal Ideation Stated Complaint: SUICIDAL IDEATION Mode of Arrival: Ambulatory Information source: Patient, [facility] Records Notes: This is a 31-year-old male with a history of insulin-dependent diabetes who returns to the emergency department after being evaluated earlier today in this department for hyperglycemia. He states that after he went home he became depressed and despondent and states that he started to hear voices telling him to harm himself. He is having thoughts of either slitting his throat or hanging himself. He states that this is happened before and he has actually been in our department for this several times in the past. At this time he tells me that he does not want to be alive. No specific trigger is identified. TRAVEL OUTSIDE OF THE [place] IN LAST 30 DAYS: No - Related Data Allergies/Adverse Reactions: No Known Allergies Allergy (Verified 01/19/17 20:09) Past Medical History - General Information source: [facility] Records - Social History Smoking Status: Current Every Day Smoker Frequency of alcohol use: None Drug Abuse: None Family History: Reviewed & Not Pertinent, DM, Hypertension Patient has suicidal ideation: Yes Patient has homicidal ideation: No - Past Medical History Cardiac Medical History: Reports: Hx Hypertension Denies: Hx Congestive Heart Failure, Hx DVT, Hx Heart Attack, Hx Hypercholesterolemia, Hx Pulmonary Embolism Pulmonary Medical History: Reports: Hx Asthma - as child Denies: Hx COPD, Hx Sleep Apnea Neurological Medical History: Reports: Hx Migraine. Denies: Hx Seizures Endocrine Medical History: Reports: Hx Diabetes Mellitus Type 1. Denies: Hx Diabetes Mellitus Type 2, Hx Hyperthyroidism, Hx Hypothyroidism Renal/ Medical History: Denies: Hx Peritoneal Dialysis GI Medical History: Denies: Hx Cirrhosis, Hx Gastroesophageal Reflux Disease, Hx Hepatitis Musculoskeltal Medical History: Denies Hx Arthritis Psychiatric Medical History: Reports: Hx Anxiety, Hx Depression Infectious Medical History: Denies: Hx C-Diff, Hx Hepatitis, Hx MRSA Past Surgical History: Reports: Hx Appendectomy, Hx Oral Surgery - wisdom teeth , Other - [place] teeth extraction - Immunizations Hx Diphtheria, Pertussis, Tetanus Vaccination: Yes Hx Pneumococcal Vaccination: 09/16/00 Review of Systems - Review of Systems Constitutional: denies: Chills, Fever EENT: No symptoms reported Cardiovascular: No symptoms reported Respiratory: No symptoms reported Gastrointestinal: No symptoms reported Genitourinary: No symptoms reported Musculoskeletal: No symptoms reported Skin: No symptoms reported Hematologic/Lymphatic: No symptoms reported Neurological/Psychological: See HPI Physical Exam - Vital signs Vitals: Temp Pulse Resp BP Pulse Ox 97.7 F 98 16 155/94 H 100 01/19/17 20:09 01/19/17 20:09 01/19/17 20:09 01/19/17 20:09 01/19/17 20:09 - Notes Notes: PHYSICAL EXAMINATION: GENERAL: well-nourished adult male, speaks softly with poor eye contact, and in no acute distress. HEAD: Atraumatic, normocephalic. EYES: Pupils equal round and reactive to light, extraocular movements intact, sclera anicteric, conjunctiva are normal. ENT: nares patent, oropharynx clear without exudates. Moist mucous membranes. NECK: Normal range of motion, supple without lymphadenopathy LUNGS: Breath sounds clear to auscultation bilaterally and equal. No wheezes rales or rhonchi. HEART: Regular rate and rhythm without murmurs ABDOMEN: Soft, nontender, normoactive bowel sounds. No guarding, no rebound. EXTREMITIES: Normal range of motion, no pitting or edema. NEUROLOGICAL: Cranial nerves grossly intact. No gross focal motor or sensory deficits appreciated PSYCH: Normal mood, flat affect. Active suicidal ideations. States he has active auditory hallucinations SKIN: Warm, Dry, no rashes or lesions noted. Course - Re-evaluation Re-evalutation: 01/20/17 07:05 Patient rested comfortably with no acute issues overnight. Accucheck this am 175. He is medically stable for psychiatric disposition - Vital Signs Vital signs: Temp Pulse Resp BP Pulse Ox 97.9 F 89 18 154/95 H 98 01/20/17 06:00 01/20/17 06:00 01/20/17 06:00 01/20/17 06:00 01/20/17 06:00 - Laboratory Result Diagrams: 01/19/17 22:40 Laboratory results interpreted by me: 01/19/17 01/20/17 22:40 06:06 Sodium 134.9 L Glucose 432 H* POC Glucose 175 H Salicylates < 1.0 L Acetaminophen < 10 L Discharge - Discharge Clinical Impression: Hyperglycemia due to type 1 diabetes mellitus, Suicidal ideation, Auditory hallucinations Condition: Stable Disposition: PSYCH HOSP/UNIT
[2017-01-19 22:25] LABS: URINE BARBITURATES SCREEN NEGATIVE; URINE METHADONE SCREEN NEGATIVE; URINE OPIATES LOW NEGATIVE; URINE PHENCYCLIDINE SCREEN NEGATIVE
[2017-01-19 23:13] LABS: ANION GAP 9 (5-19); BLOOD UREA NITROGEN 14 mg/dL (7-20); CALCIUM 9.2 mg/dL (8.4-10.2); CARBON DIOXIDE 28 mmol/L (22-30); CHLORIDE 98 mmol/L (98-107); CREATININE RESULT 1.01 mg/dL (0.52-1.25); SODIUM 134.9 mmol/L (137-145)
[2017-01-19 23:15] LABS: ALCOHOL < 10 mg/dL (NONE DETECTED)
[2017-01-19 23:22] LABS: GLUCOSE 432 mg/dL (75-110)
[2017-01-20] MEDS ORDERED: INSULIN REG, HUMAN 100 UNIT/ML 3 ML VIAL (PYX) SUBCUT ONE (00:46)
--- NOTE | 2017-01-20 09:13 | EKG REPORT ---
SEVERITY:- NORMAL ECG - SINUS RHYTHM : Confirmed by: Brayden Silverio MD 20-Jan-2017 09:12:39
--- NOTE | 2017-01-20 09:41 | ER Document Report ---
ED Psych Disorder / Suicide - General Chief Complaint: Suicidal Ideation Stated Complaint: SUICIDAL IDEATION Mode of Arrival: Ambulatory Information source: Patient, [facility] Records TRAVEL OUTSIDE OF THE [place] IN LAST 30 DAYS: No - HPI Patient complains to provider of: Suicidal ideation Onset: Just prior to arrival Onset was: Sudden Suicide Risk Factors: Lack of social support, Male, Substance abuse - THC, Other - homeless Situational problems related to: Lost job, Spouse - and child living without him at her parents, Work - no job, Other - homeless; poorly managed diabetes Normal mood: Yes Associated symptoms: Normal affect, Normal mood, Depressed Similar symptoms previously: Yes - 12 visits in 6 months Recently seen / treated by doctor: Yes - 01/19 at [facility] ER d/c and returned Notes: Patient is a 31-year-old male who presented to [facility] ER stating he was suicidal. Note patient is well known to this clinician and this department for numerous prior episodes of similar etiology. Patient was seen and discharged 01/19 for similar complaints. Patient has had a total of 12 visits since 09/16/2016 all of which included complaints of depression/suicidal ideations and or a diabetes-related prob. Patient historically has been treated and referred within the community with poor follow-up. Socially, patient abuses marijuana and occasionally alcohol. Patient is with a child however lives separately with his and child living with her parents and he from place to place and or on the streets. Patient this morning states he has some things going on. He states he feels like people are out to get him and is hearing voices. Patient denies that the alleged voices are proving him commands. Patient states he has followed up with [facility] and states he is prescribed Haldol and 2 other medications. Patient states he is suicidal. Patient reports no other changes with his social stressors. Patient is A&O. Mood is euthymic with normal affect. Patient endorses suicidal ideations and plan. Patient denies homicidal ideations, intent, plan, and means. Patient reports AH; however, does not appear to be responding to internal stimuli. Patient denied VH; delusions not noted. Thought processes organized. Conversational speech during evaluation was low for prosody, but was observed normally engaging with other staff, requesting food, etc. Intellectual abilities were estimated within low average range. Attention and focus were good. Insight, judgment, and impulse control were poor. Unspecified depressive disorder per history Cannabis use disorder, per history Patient is psychiatrically cleared and recommended for discharge. Recommend rescind IVC. Patient presents with no new concerns and has been referred to numerous outpatient providers to assist him with his depression. Patient continuously presents to the emergency room with diabetes related concerns and or suicidal ideations. Patient poorly manages his diabetes as well as his depression. Patient abuses marijuana. Patient reports he feels people are out to get him, but is unable or chooses not to disclose how he knows or feels people are out to get him. Patient additionally reports he hears voices, which he does provide specifics despite numerous prompts. Patient has been seen numerous times by this clinician and this department, and has not once been noted to appear to be responding to internal stimuli. Patient no longer meets criteria for involuntary commitment per the [place] General Statute 122C as his reports appear incongruent with his overall presentation. Patient is encouraged to follow up with his provider, ISABELL within 3-5 days for further evaluation. Patient is encouraged to pursue outpatient counseling to assist him in coping with and managing his social stressors. I consulted with Dr. Waller in regards to the care and management of this patient. - Related Data Allergies/Adverse Reactions: No Known Allergies Allergy (Verified 01/19/17 20:09) Past Medical History - General Information source: [facility] Records - Social History Smoking Status: Current Every Day Smoker Cigarette use (# per day): Yes - PPD Smoking Education Provided: Yes Frequency of alcohol use: Occasional Drug Abuse: Marijuana, Other Lives with: Homeless Family History: Reviewed & Not Pertinent, DM, Hypertension Patient has suicidal ideation: Yes Patient has homicidal ideation: No - Past Medical History Cardiac Medical History: Reports: Hx Hypertension Denies: Hx Congestive Heart Failure, Hx DVT, Hx Heart Attack, Hx Hypercholesterolemia, Hx Pulmonary Embolism Pulmonary Medical History: Reports: Hx Asthma - as child Denies: Hx COPD, Hx Sleep Apnea Neurological Medical History: Reports: Hx Migraine. Denies: Hx Seizures Endocrine Medical History: Reports: Hx Diabetes Mellitus Type 1. Denies: Hx Diabetes Mellitus Type 2, Hx Hyperthyroidism, Hx Hypothyroidism Renal/ Medical History: Denies: Hx Peritoneal Dialysis GI Medical History: Denies: Hx Cirrhosis, Hx Gastroesophageal Reflux Disease, Hx Hepatitis Musculoskeltal Medical History: Denies Hx Arthritis Psychiatric Medical History: Reports: Hx Anxiety, Hx Depression Infectious Medical History: Denies: Hx C-Diff, Hx Hepatitis, Hx MRSA Past Surgical History: Reports: Hx Appendectomy, Hx Oral Surgery - wisdom teeth , Other - [place] teeth extraction - Immunizations Hx Diphtheria, Pertussis, Tetanus Vaccination: Yes Hx Pneumococcal Vaccination: 09/16/00 Physical Exam - Vital signs Vitals: Temp Pulse Resp BP Pulse Ox 97.7 F 98 16 155/94 H 100 01/19/17 20:09 01/19/17 20:09 01/19/17 20:09 01/19/17 20:09 01/19/17 20:09 Course - Vital Signs Vital signs: Temp Pulse Resp BP Pulse Ox 97.9 F 89 18 154/95 H 98 01/20/17 06:00 01/20/17 06:00 01/20/17 06:00 01/20/17 06:00 01/20/17 06:00 - Laboratory Result Diagrams: 01/19/17 22:40 Laboratory results interpreted by me: 01/19/17 01/20/17 22:40 06:06 Sodium 134.9 L Glucose 432 H* POC Glucose 175 H Salicylates < 1.0 L Acetaminophen < 10 L Discharge - Discharge Clinical Impression: Hyperglycemia due to type 1 diabetes mellitus, Auditory hallucinations, Cannabis abuse Condition: Stable Disposition: HOME, SELF-CARE Additional Instructions: Depression Your evaluation reveals that you have mental depression. While symptoms may be vague, they often include disturbance of sleep, fatigue, loss of appetite , and general loss of interest in life. While depression may be a side effect of drugs, or a reaction to a major change in your life, many cases have no known cause. If depression is acute, and related to a major loss in your life, you can expect it to clear completely with time. If you have been depressed a long time , are prone to repeated bouts of depression or low mood, or have been thinking of suicide, get help. Depression can be treated with anti-depressant medication and counselling. Long-term depression will often take a few weeks to clear, even with appropriate medication. Follow-up care is important. Contact your physician, the hospital emergency center, crisis line, or your counsellor if you are losing control or having self-destructive thoughts. Diabetes You have an abnormally high blood sugar, suspicious for diabetes. Not all high blood sugar requires long-term treatment. High blood sugar can be due to medications, , or the stress of illness. (These cases are "borderline diabetes.") If the doctor feels your high blood sugar might get better with time, you may not require treatment now. You will be scheduled for further evaluation. It's very important that you follow through. Uncontrolled high blood sugar leads to early heart disease , strokes, nerve damage, eye damage, and kidney damage. All diabetics should follow a diet designed to control the blood sugar. Overweight diabetics should exercise regularly and lose weight. If this is not sufficient to control the blood sugar, pills or insulin shots are necessary. Younger people who develop diabetes almost always require insulin daily. Home testing of blood sugars or urine sugar is required. Diabetic teaching is available to help you figure insulin doses and monitor the blood sugar. Call the physician if there is faintness, excess sleepiness, or very rapid breathing. If hypoglycemia (LOW blood sugar) develops, symptoms are shakiness, weakness, sweating, and confusion. In this case, you should eat or drink something with sugar at once. Please follow up with your psychiatric provider, [facility] for evaluation of your medications as well as to pursue outpatient counseling. Please take all of your medications as prescribed. Please stop smoking marijuana. Please return if your symptoms worsen or if you feel like you are losing control. Forms: Smoking Cessation Education Referrals: [facility] [Provider Group] - Follow up in 3-5 days (Pls request outpatinet counseling to assist you in managing your social stressors)
--- NOTE | 2017-01-20 10:25 | ER Document Report ---
Doctor's Note Notes: 01/20/17 10:23 I've seen and examined the patient. This is a 31-year-old man that is an insulin-requiring diabetic who has a history of DKA, medical noncompliance and depression and he presented to the ER with depression. His glucose was noted to be elevated without a significant anion gap. He was treated in the sugars come down. He was evaluated by psychiatry and felt safe for discharge. The patient does have follow-up at [facility]. The patient has resources if he chooses to use them. The patient has Medicaid and inpatient staff have set up [facility]- [facility] for the patient which she does not always use. He does have a history of substance abuse. We have encouraged him to take his medicines and follow-up with the psychiatry clinic. Ultimately, this is his choice. He is alert and oriented 3. He is ambulating around the ER and using the phone without difficulties. He is not having any obvious signs of psychosis and appears quite competent and at this time.
[2017-01-20 10:55] VITALS: BP 142/84
== END 2017-01-20 10:45 | disposition home or self-care (01) ==
LOC: ER 20:07
DX: F32.9 Major depressive disorder, single episode, unspecified (principal); F12.10 Cannabis abuse, uncomplicated; R44.0 Auditory hallucinations; E10.65 Type 1 diabetes mellitus with hyperglycemia; R45.851 Suicidal ideations; Z59.0 Homelessness; Z79.899 Other long term (current) drug therapy; F17.210 Nicotine dependence, cigarettes, uncomplicated; I10 Essential (primary) hypertension
CPT/HCPCS: 93005; 99285; 36415; 82962; 80307 ×4; 80048; 93010; J1815

== ENCOUNTER 2017-02-09 10:11 | Inpatient (IN) | payer MEDICAID, OTHER ==
[2017-02-09] MEDS ORDERED: NORMAL SALINE 1000 ML 1,000 ML IV PRN ×3 (10:29→14:10)
[2017-02-09] MEDS ORDERED: DIPHENHYDRAMINE HCL 50 MG/ML VIAL IV ONE (10:29)
[2017-02-09] MEDS ORDERED: METOCLOPRAMIDE HCL INJ/PF 10 MG/2 ML SDV IV ONE (10:29)
--- NOTE | 2017-02-09 10:36 | ER Document Report ---
ED General - General Chief Complaint: High Blood Sugar Stated Complaint: BLOOD SUGAR PROBLEMS Time Seen by Provider: 02/09/17 10:21 Mode of Arrival: Medic Information source: Patient Notes: This is a 31-year-old man with a history of poorly controlled diabetes, medical noncompliance, hyperosmolar syndrome who is brought to the emergency room by EMS because of nausea, vomiting, elevated blood sugar in the setting of running out of his insulin. Patient denies any fever, chills, abdominal pain. He is actively vomiting in the emergency room. TRAVEL OUTSIDE OF THE [place] IN LAST 30 DAYS: No - HPI Onset: Just prior to arrival Onset/Duration: Gradual Quality of pain: Dull Severity: Moderate Pain Level: 2 Associated symptoms: Nausea, Vomiting. denies: Chills, Fever, Shortness of breath Exacerbated by: Denies Relieved by: Denies Similar symptoms previously: Yes Recently seen / treated by doctor: Yes - Related Data Allergies/Adverse Reactions: No Known Allergies Allergy (Verified 01/19/17 20:09) Home Medications: Current Home Medications Amlodipine Besylate [Norvasc 5 mg Tablet] 5 mg PO DAILY 02/09/17 [History] Atenolol [Tenormin] 25 mg PO DAILY 02/09/17 [History] Buspirone HCl [Buspar 15 mg Tablet] 15 mg PO Q8 02/09/17 [History] Duloxetine HCl [Cymbalta] 60 mg PO DAILY 02/09/17 [History] Gabapentin [Neurontin 300 mg Capsule] 300 mg PO Q6 02/09/17 [History] Haloperidol [Haldol 5 mg Tablet] 5 mg PO QHS 02/09/17 [History] Hydrochlorothiazide [Hydrodiuril 12.5 mg Capsule] 25 mg PO DAILY 02/09/17 [ History] Hydroxyzine Pamoate [Vistaril 50 mg Capsule] 50 mg PO Q8HP PRN 02/09/17 [History ] Insulin Aspart [Novolog Flexpen] 0 units SQ MEALS PRN MDD 45 UNITS 02/09/17 [ History] Insulin Detemir [Levemir Flextouch] 40 units SQ QHS 02/09/17 [History] Oxycodone HCl 15 mg PO Q6 02/09/17 [History] Quetiapine Fumarate [Seroquel 100 mg Tablet] 100 mg PO Q8 02/09/17 [History] Past Medical History - General Information source: Patient - Social History Smoking Status: Never Smoker Cigarette use (# per day): No Chew tobacco use (# tins/day): No Frequency of alcohol use: None Drug Abuse: None Lives with: Family Family History: Reviewed & Not Pertinent, DM, Hypertension - Past Medical History Cardiac Medical History: Reports: Hx Hypertension Denies: Hx Congestive Heart Failure, Hx DVT, Hx Heart Attack, Hx Hypercholesterolemia, Hx Pulmonary Embolism Pulmonary Medical History: Reports: Hx Asthma - as child Denies: Hx COPD, Hx Sleep Apnea Neurological Medical History: Reports: Hx Migraine. Denies: Hx Seizures Endocrine Medical History: Reports: Hx Diabetes Mellitus Type 1. Denies: Hx Diabetes Mellitus Type 2, Hx Hyperthyroidism, Hx Hypothyroidism Renal/ Medical History: Denies: Hx Peritoneal Dialysis GI Medical History: Denies: Hx Cirrhosis, Hx Gastroesophageal Reflux Disease, Hx Hepatitis Musculoskeltal Medical History: Denies Hx Arthritis Psychiatric Medical History: Reports: Hx Anxiety, Hx Depression Infectious Medical History: Denies: Hx C-Diff, Hx Hepatitis, Hx MRSA Past Surgical History: Reports: Hx Appendectomy, Hx Oral Surgery - wisdom teeth , Other - [place] teeth extraction - Immunizations Hx Diphtheria, Pertussis, Tetanus Vaccination: Yes Hx Pneumococcal Vaccination: 09/16/00 Review of Systems - Review of Systems Constitutional: denies: Chills, Fever EENT: No symptoms reported Cardiovascular: No symptoms reported Respiratory: No symptoms reported Gastrointestinal: See HPI Genitourinary: No symptoms reported Male Genitourinary: No symptoms reported Musculoskeletal: No symptoms reported Skin: No symptoms reported Hematologic/Lymphatic: No symptoms reported Neurological/Psychological: No symptoms reported Physical Exam - Vital signs Vitals: Resp Pulse Ox 20 100 02/09/17 10:18 02/09/17 10:18 Notes: Physical exam: GENERAL: 31-year-old man, appears in distress, actively vomiting HEAD: Atraumatic, normocephalic. EYES: Pupils equal round and reactive to light, extraocular movements intact, sclera anicteric, conjunctiva are normal. ENT: TMs normal, nares patent, oropharynx clear without exudates. Dry mucous membranes. NECK: Normal range of motion, supple without lymphadenopathy or JVD. LUNGS: Breath sounds clear to auscultation bilaterally and equal. No wheezes rales or rhonchi. HEART: Tachycardia without murmurs, rubs or gallops. ABDOMEN: Soft, normoactive bowel sounds. No tenderness to palpation. No guarding, no rebound. No masses appreciated. EXTREMITIES: Normal range of motion, no pitting or edema. No clubbing or cyanosis. NEUROLOGICAL: Cranial nerves II through XII grossly intact. Normal speech, moving all extremities SKIN: Warm, Dry, normal turgor, no rashes or lesions noted. Course - Re-evaluation Re-evalutation: 02/09/17 10:42 Patient actively vomiting. Bedside Accu-Chek was 476. IV fluids started' IV Reglan and IV Benadryl Regular insulin 10 units SC 02/09/17 19:24 Insulin drip started - Vital Signs Vital signs: Temp Pulse Resp BP Pulse Ox 99.2 F 105 H 20 161/95 H 100 02/09/17 18:06 02/09/17 18:06 02/09/17 18:06 02/09/17 18:06 02/09/17 18:06 - Laboratory Result Diagrams: 02/09/17 11:06 02/09/17 15:52 Laboratory results interpreted by me: 02/09/17 02/09/17 02/09/17 11:06 11:06 11:06 WBC 11.6 H Hgb 11.5 L Hct 37.1 L MCV 77 L MCH 24.0 L MCHC 31.1 L RDW 16.6 H Seg Neutrophils % 89.8 H Lymphocytes % 6.6 L Monocytes % 2.6 L Absolute Neutrophils 10.4 H Carbon Dioxide 16 L Anion Gap 26 H Creatinine 1.47 H Est GFR (Non-Af Amer) 56 L Glucose 564 H* POC Glucose Serum Osmolality 319 H Direct Bilirubin 0.5 H Urine Protein Urine Glucose (UA) Urine Ketones Urine Blood 02/09/17 02/09/17 12:21 12:23 WBC Hgb Hct MCV MCH MCHC RDW Seg Neutrophils % Lymphocytes % Monocytes % Absolute Neutrophils Carbon Dioxide Anion Gap Creatinine Est GFR (Non-Af Amer) Glucose POC Glucose 413 H* Serum Osmolality Direct Bilirubin Urine Protein 100 H Urine Glucose (UA) >=500 H Urine Ketones 80 H Urine Blood SMALL H - Diagnostic Test Radiology reviewed: Image reviewed, Reports reviewed - Chest x-ray shows no infiltrates - EKG Interpretation by Me Rate: Normal Rhythm: NSR - EKG shows sinus tachycardia with ventricular rate of 106, no acute ST-T wave changes Critical Care Note - Critical Care Note Total time excluding time spent on procedures (mins): 60 Discharge - Discharge Clinical Impression: DKA (diabetic ketoacidoses) Qualifiers: Diabetes mellitus type: type 1 Diabetes mellitus complication detail: without coma Qualified Code(s): E10.10 - Type 1 diabetes mellitus with ketoacidosis without coma Clinical Impression: (Ruled Out): Condition: Serious Disposition: ADMITTED INPATIENT
[2017-02-09] MEDS ORDERED: INSULIN REG, HUMAN 100 UNIT/ML 3 ML VIAL (PYX) SUBCUT ONE (10:41)
[2017-02-09] MEDS ORDERED: ONDANSETRON HCL INJ/PF 4 MG/2 ML SDV IV ONE (10:56)
[2017-02-09 11:27] LABS: ABSOLUTE BASOPHILS # (AUTO) 0.1 10^3/uL (0.0-0.2); ABSOLUTE LYMPHOCYTES (AUTO) 0.8 10^3/uL (0.5-4.7); ABSOLUTE MONOCYTES (AUTO) 0.3 10^3/uL (0.1-1.4); ABSOLUTE NEUT (AUTO) 10.4 10^3/uL (1.7-8.2); BASOPHILS % (AUTO) 0.9 % (0-2); EOSINOPHILS % (AUTO) 0.1 % (0-6); HEMATOCRIT 37.1 % (37.9-51.0); HEMOGLOBIN 11.5 g/dL (13.5-17.0); HGB HCT DIFFERENCE -2.6; LYMPHOCYTES % (AUTO) 6.6 % (13-45); MEAN CORPUSCULAR HGB CONC 31.1 g/dL (32.0-36.0); MEAN CORPUSCULAR VOLUME 77 fl (80-97); MONOCYTES % (AUTO) 2.6 % (3-13); RED CELL DISTRIBUTION WIDTH 16.6 % (11.5-14.0); SEGMENTED NEUTROPHILS % (AUTO) 89.8 % (42-78); WHITE BLOOD COUNT 11.6 10^3/uL (4.0-10.5)
[2017-02-09 11:47] LABS: MAGNESIUM 1.9 mg/dL (1.6-2.3)
[2017-02-09 11:48] LABS: ALANINE AMINOTRANSFERASE 29 U/L (21-72); ALBUMIN 3.9 g/dL (3.5-5.0); ALCOHOL < 10 mg/dL (NONE DETECTED); ALKALINE PHOSPHATASE 124 U/L (38-126); ASPARTATE AMINO TRANSFERASE 23 U/L (17-59); BILIRUBIN,DIRECT 0.5 mg/dL (0.0-0.4); BILIRUBIN,TOTAL 0.6 mg/dL (0.2-1.3); BLOOD UREA NITROGEN 18 mg/dL (7-20); CARBON DIOXIDE 16 mmol/L (22-30); CHLORIDE 98 mmol/L (98-107); CREATININE RESULT 1.47 mg/dL (0.52-1.25); POTASSIUM 4.7 mmol/L (3.6-5.0); TOTAL PROTEIN 6.7 g/dL (6.3-8.2)
[2017-02-09 11:55] LABS: SODIUM 139.6 mmol/L (137-145)
[2017-02-09 11:57] LABS: ANION GAP 26 (5-19)
[2017-02-09 11:59] LABS: GLUCOSE 564 mg/dL (75-110)
[2017-02-09] MEDS ORDERED: DEXTROSE 40% GEL 15 GM TUBE PO PRN ×4 (12:26→14:13)
[2017-02-09] MEDS ORDERED: DEXTROSE 50%-WATER 25 GM/50 ML DISP.SYRIN IV PRN ×4 (12:26→14:13)
[2017-02-09] MEDS ORDERED: GLUCAGON,HUMAN RECOMB 1 MG INJ IM PRN ×2 (12:26→14:13)
[2017-02-09] MEDS ORDERED: NORMAL SALINE 100 ML with INSULIN REGULAR, HUMAN 100 UNIT IV PRN ×4 (12:26→14:13)
[2017-02-09 12:49] LABS: APPEARANCE,URINE CLEAR; BILIRUBIN,URINE NEGATIVE (NEGATIVE); GLUCOSE, URINE >=500 mg/dL (NEGATIVE); KETONES,URINE 80 mg/dL (NEGATIVE); LEUKOCYTE ESTERASE,URINE NEGATIVE (NEGATIVE); NITRITE,URINE NEGATIVE (NEGATIVE); PROTEIN,URINE 100 mg/dL (NEGATIVE); URINE SPECIFIC GRAVITY 1.015; UROBILINOGEN,URINE NEGATIVE mg/dL (<2.0)
[2017-02-09 13:09] LABS: URINE BARBITURATES SCREEN NEGATIVE; URINE METHADONE SCREEN NEGATIVE; URINE OPIATES LOW NEGATIVE; URINE PHENCYCLIDINE SCREEN NEGATIVE
--- NOTE | 2017-02-09 13:32 | RADIOLOGY REPORT (SQ) ---
EXAM DESCRIPTION: CHEST SINGLE VIEW COMPLETED DATE/TIME: 02/09/2017 12:55 pm REASON FOR STUDY: chest pain COMPARISON: 01/16/2017 EXAM PARAMETERS: NUMBER OF VIEWS: One view. TECHNIQUE: Single frontal radiographic view of the chest acquired. RADIATION DOSE: NA LIMITATIONS: None. FINDINGS: LUNGS AND PLEURA: No opacities, masses or pneumothorax. No pleural effusion. MEDIASTINUM AND HILAR STRUCTURES: No masses. Contour normal. HEART AND VASCULAR STRUCTURES: Heart normal in size. Normal vasculature. BONES: No acute findings. HARDWARE: None in the chest. OTHER: No other significant finding. IMPRESSION: NO ACUTE RADIOGRAPHIC FINDING IN THE CHEST. TECHNICAL DOCUMENTATION: JOB ID: [id number]
[2017-02-09] MEDS ORDERED: ONDANSETRON 4 MG TAB.RAPDIS PO PRN (14:10)
[2017-02-09] MEDS ORDERED: ONDANSETRON HCL INJ/PF 4 MG/2 ML SDV IV PRN (14:10)
[2017-02-09] MEDS ORDERED: ACETAMINOPHEN 325 MG TABLET PO PRN (14:10)
[2017-02-09] MEDS ORDERED: HYDROXYZINE PAMOATE 50 MG CAPSULE PO PRN (14:15)
[2017-02-09] MEDS: OXYCODONE HCL IR 5 MG TABLET PO PRN ×2 (15:21→21:42)
--- NOTE | 2017-02-09 15:56 | PDOC H&P ---
History of Present Illness Admission Date/PCP: MITCHELL SALGUERO MD Patient complains of: Nausea and vomiting History of Present Illness: LENA SCHULZ is a 31 year old male with a history of type 1 diabetes mellitus and has had frequent admissions for diabetic ketoacidosis who presents with 1 day history of nausea vomiting some crampy abdominal pain. He denies having any fevers or chills. He has had difficulty tolerating p.o. and has had elevated blood sugars. He presents with diabetic ketoacidosis. He denies having any fevers or chills. He denies any shortness of breath or chest pain. He denies any dysuria but does have urinary frequency. He denies any skin rashes or lesions. Past Medical History Cardiac Medical History: Reports: Hypertension Denies: Congestive Heart Failure, DVT, Myocardial Infarction, Hyperlipidema, Pulmonary Embolism Pulmonary Medical History: Reports: Asthma - as child Denies: Chronic Obstructive Pulmonary Disease (COPD), Sleep Apnea EENT Medical History: Reports: None Neurological Medical History: Reports: Migraine Denies: Seizures Endocrine Medical History: Reports: Diabetes Mellitus Type 1 Denies: Diabetes Mellitus Type 2, Hyperthyroidism, Hypothyroidism Renal/ Medical History: Reports: None Malignancy Medical History: Reports: None GI Medical History: Denies: Cirrhosis, Gastroesophageal Reflux Disease, Hepatitis Musculoskeltal Medical History: Denies: Arthritis Psychiatric Medical History: Reports: Depression Hematology: Reports: None Infectious Medical History: Denies: Clostridium Difficile, Methicillin-Resistant Staph Aureus Past Surgical History Past Surgical History: Reports: Appendectomy, Other - [place] teeth extraction Social History Information Source: Patient Lives with: Alone Smoking Status: Current Every Day Smoker Frequency of Alcohol Use: None Hx Recreational Drug Use: No Drugs: Cocaine Hx Prescription Drug Abuse: No - Advance Directive Resuscitation Status: Full Code Family History Family History: DM, Hypertension Parental Family History Reviewed: Yes Children Family History Reviewed: No Sibling(s) Family History Reviewed.: No Medication/Allergy Allergies/Adverse Reactions: No Known Allergies Allergy (Verified 01/19/17 20:09) Review of Systems Constitutional: ABSENT: chills, fever(s), headache(s), weight gain, weight loss Eyes: ABSENT: visual disturbances Ears: ABSENT: hearing changes Cardiovascular: ABSENT: chest pain, dyspnea on exertion, edema, orthropnea, palpitations Respiratory: ABSENT: cough, hemoptysis Gastrointestinal: PRESENT: as per HPI, abdominal pain, nausea, vomiting. ABSENT : diarrhea, hematemesis, hematochezia, melena Genitourinary: ABSENT: dysuria, hematuria Musculoskeletal: ABSENT: joint swelling Integumentary: ABSENT: rash, wounds Neurological: ABSENT: abnormal gait, abnormal speech, confusion, dizziness, focal weakness, syncope Psychiatric: ABSENT: anxiety, depression Endocrine: PRESENT: polydipsia, polyuria. ABSENT: cold intolerance, heat intolerance Hematologic/Lymphatic: ABSENT: easy bleeding, easy bruising Physical Exam Vital Signs: Temp Pulse Resp BP Pulse Ox 23 H 155/101 H 100 02/09/17 10:19 02/09/17 10:19 02/09/17 10:19 Intake & Output 02/08/17 02/09/17 02/10/17 06:59 06:59 06:59 Weight 90.718 kg General appearance: PRESENT: no acute distress, well-developed, well-nourished Head exam: PRESENT: atraumatic, normocephalic Eye exam: PRESENT: conjunctiva pink, EOMI, PERRLA. ABSENT: scleral icterus Ear exam: PRESENT: normal external ear exam Mouth exam: PRESENT: moist, tongue midline Neck exam: ABSENT: carotid bruit, JVD, lymphadenopathy, thyromegaly Respiratory exam: PRESENT: clear to auscultation juan ramon. ABSENT: rales, rhonchi, wheezes Cardiovascular exam: PRESENT: RRR. ABSENT: diastolic murmur, rubs, systolic murmur Pulses: PRESENT: normal dorsalis pedis pul Vascular exam: PRESENT: normal capillary refill GI/Abdominal exam: PRESENT: normal bowel sounds, soft. ABSENT: distended, guarding, mass, organolmegaly, rebound, tenderness Rectal exam: PRESENT: deferred Extremities exam: ABSENT: calf tenderness, clubbing, pedal edema Neurological exam: PRESENT: alert, awake, oriented to person, oriented to place , oriented to time, oriented to situation, CN II-XII grossly intact. ABSENT: motor sensory deficit Psychiatric exam: PRESENT: appropriate affect, normal mood Skin exam: PRESENT: dry, intact, warm. ABSENT: cyanosis, rash Results Laboratory Results: 02/09/17 11:06 02/09/17 15:20 02/09/17 02/09/17 02/09/17 11:06 11:06 11:06 WBC 11.6 H RBC 4.80 Hgb 11.5 L Hct 37.1 L MCV 77 L MCH 24.0 L MCHC 31.1 L RDW 16.6 H Plt Count 306 Seg Neutrophils % 89.8 H Lymphocytes % 6.6 L Monocytes % 2.6 L Eosinophils % 0.1 Basophils % 0.9 Absolute Neutrophils 10.4 H Absolute Lymphocytes 0.8 Absolute Monocytes 0.3 Absolute Eosinophils 0.0 Absolute Basophils 0.1 Sodium Potassium Chloride Carbon Dioxide Anion Gap BUN Creatinine Est GFR ( Amer) Est GFR (Non-Af Amer) Glucose Serum Osmolality 319 H Calcium Magnesium 1.9 Total Bilirubin AST ALT Alkaline Phosphatase Total Protein Albumin Urine Color Urine Appearance Urine pH Ur Specific [place] Urine Protein Urine Glucose (UA) Urine Ketones Urine Blood Urine Nitrite Ur Leukocyte Esterase Urine WBC (Auto) 02/09/17 02/09/17 02/09/17 11:06 12:23 15:20 WBC RBC Hgb Hct MCV MCH MCHC RDW Plt Count Seg Neutrophils % Lymphocytes % Monocytes % Eosinophils % Basophils % Absolute Neutrophils Absolute Lymphocytes Absolute Monocytes Absolute Eosinophils Absolute Basophils Sodium 139.6 Cancelled Potassium 4.7 Cancelled Chloride 98 Cancelled Carbon Dioxide 16 L Cancelled Anion Gap 26 H Cancelled BUN 18 Cancelled Creatinine 1.47 H Cancelled Est GFR ( Amer) > 60 Cancelled Est GFR (Non-Af Amer) 56 L Cancelled Glucose 564 H* Cancelled Serum Osmolality Calcium 10.0 Cancelled Magnesium Total Bilirubin 0.6 AST 23 ALT 29 Alkaline Phosphatase 124 Total Protein 6.7 Albumin 3.9 Urine Color STRAW Urine Appearance CLEAR Urine pH 5.0 Ur Specific [place] 1.015 Urine Protein 100 H Urine Glucose (UA) >=500 H Urine Ketones 80 H Urine Blood SMALL H Urine Nitrite NEGATIVE Ur Leukocyte Esterase NEGATIVE Urine WBC (Auto) 0 Impressions: Chest X-Ray 02/09/17 12:27 IMPRESSION: NO ACUTE RADIOGRAPHIC FINDING IN THE CHEST. Assessment & Plan - Diagnosis (1) DKA (diabetic ketoacidoses) Qualifiers: Diabetes mellitus type: type 1 Diabetes mellitus complication detail: without coma Qualified Code(s): E10.10 - Type 1 diabetes mellitus with ketoacidosis without coma Is this a current diagnosis for this admission?: YesPlan: The patient has DKA most likely secondary to a viral gastroenteritis. We will give IV fluids and start the patient on IV insulin drip. (2) Gastroenteritis Is this a current diagnosis for this admission?: YesPlan: Has had symptoms consistent with an acute viral gastroenteritis. Will give IV fluids. He has no evidence for bacterial infection at this time. (3) Hypertension Qualifiers: Hypertension type: essential hypertension Qualified Code(s): I10 - Essential (primary) hypertension Is this a current diagnosis for this admission?: YesPlan: Continue with his atenolol and Norvasc. - Time Time Spent: 50 to 70 Minutes - Inpatient Certification Medical Necessity: Need Close Monitoring Due to Risk of Patient Decompensation, Need For IV Fluids
[2017-02-09 16:24] LABS: ANION GAP 18 (5-19); BLOOD UREA NITROGEN 18 mg/dL (7-20); CALCIUM 9.3 mg/dL (8.4-10.2); CARBON DIOXIDE 18 mmol/L (22-30); CHLORIDE 102 mmol/L (98-107); GLUCOSE 323 mg/dL (75-110); POTASSIUM 4.7 mmol/L (3.6-5.0)
--- NOTE | 2017-02-09 17:06 | EKG REPORT ---
SEVERITY:- BORDERLINE ECG - SINUS TACHYCARDIA BORDERLINE T WAVE ABNORMALITIES : Confirmed by: Brayden Silverio MD 09-Feb-2017 17:05:11
[2017-02-09] MEDS: GABAPENTIN 300 MG CAPSULE PO SCH ×2 (18:20→23:42)
[2017-02-09] MEDS: OXYCODONE-ACETAMINOPHEN 5-325 MG TABLET PO PRN (18:20)
[2017-02-09] MEDS: DEXTROSE 5%-1/2 NORMAL SALINE 1,000 ML IV PRN (19:45)
[2017-02-09 20:23] LABS: ANION GAP 10 (5-19); BLOOD UREA NITROGEN 16 mg/dL (7-20); CALCIUM 8.5 mg/dL (8.4-10.2); CARBON DIOXIDE 23 mmol/L (22-30); CHLORIDE 102 mmol/L (98-107); CREATININE RESULT 1.23 mg/dL (0.52-1.25); GLUCOSE 274 mg/dL (75-110); POTASSIUM 4.2 mmol/L (3.6-5.0); SODIUM 135.3 mmol/L (137-145)
[2017-02-09] MEDS: BUSPIRONE HCL 10 MG TABLET PO SCH (21:42)
[2017-02-09] MEDS: FAMOTIDINE 20 MG TABLET PO SCH (21:42)
[2017-02-10] MEDS: DEXTROSE 5%-1/2 NORMAL SALINE 1,000 ML IV PRN ×2 (01:37→06:42)
[2017-02-10] MEDS: OXYCODONE HCL IR 5 MG TABLET PO PRN ×3 (04:36→18:58)
[2017-02-10 05:04] LABS: ABSOLUTE BASOPHILS # (AUTO) 0.1 10^3/uL (0.0-0.2); ABSOLUTE EOSINOPHILS # (AUTO) 0.1 10^3/uL (0.0-0.6); ABSOLUTE LYMPHOCYTES (AUTO) 2.4 10^3/uL (0.5-4.7); ABSOLUTE MONOCYTES (AUTO) 1.1 10^3/uL (0.1-1.4); ABSOLUTE NEUT (AUTO) 6.7 10^3/uL (1.7-8.2); BASOPHILS % (AUTO) 0.8 % (0-2); EOSINOPHILS % (AUTO) 1.3 % (0-6); HEMATOCRIT 29.9 % (37.9-51.0); HEMOGLOBIN 9.8 g/dL (13.5-17.0); HGB HCT DIFFERENCE -0.5; MEAN CORPUSCULAR HEMOGLOBIN 24.9 pg (27.0-33.4); MEAN CORPUSCULAR HGB CONC 32.9 g/dL (32.0-36.0); MEAN CORPUSCULAR VOLUME 76 fl (80-97); MONOCYTES % (AUTO) 10.4 % (3-13); RED BLOOD COUNT 3.94 10^6/uL (4.35-5.55); RED CELL DISTRIBUTION WIDTH 16.3 % (11.5-14.0); SEGMENTED NEUTROPHILS % (AUTO) 64.5 % (42-78); WHITE BLOOD COUNT 10.3 10^3/uL (4.0-10.5)
[2017-02-10 05:23] LABS: ANION GAP 7 (5-19); BLOOD UREA NITROGEN 12 mg/dL (7-20); CALCIUM 8.6 mg/dL (8.4-10.2); CARBON DIOXIDE 25 mmol/L (22-30); CHLORIDE 106 mmol/L (98-107); CREATININE RESULT 1.06 mg/dL (0.52-1.25); GLUCOSE 149 mg/dL (75-110); POTASSIUM 3.6 mmol/L (3.6-5.0); SODIUM 137.6 mmol/L (137-145)
[2017-02-10] MEDS: GABAPENTIN 300 MG CAPSULE PO SCH ×4 (05:46→23:52)
[2017-02-10] MEDS: BUSPIRONE HCL 10 MG TABLET PO SCH ×3 (05:47→21:28)
[2017-02-10 08:28] LABS: ANION GAP 8 (5-19); BLOOD UREA NITROGEN 10 mg/dL (7-20); CALCIUM 8.7 mg/dL (8.4-10.2); CARBON DIOXIDE 23 mmol/L (22-30); CHLORIDE 108 mmol/L (98-107); CREATININE RESULT 1.02 mg/dL (0.52-1.25); GLUCOSE 163 mg/dL (75-110); POTASSIUM 4.4 mmol/L (3.6-5.0); SODIUM 138.7 mmol/L (137-145)
[2017-02-10] MEDS: ATENOLOL 50 MG TABLET PO SCH (10:07)
[2017-02-10] MEDS: DULOXETINE HCL 30 MG CAPSULE.DR PO SCH (10:08)
[2017-02-10] MEDS: AMLODIPINE BESYLATE 5 MG TABLET PO SCH (10:08)
[2017-02-10] MEDS: FAMOTIDINE 20 MG TABLET PO SCH ×2 (10:08→21:28)
[2017-02-10] MEDS ORDERED: INSULIN DETEMIR 100 UNIT/ML 3 ML PEN SUBCUT ONE (10:30)
--- NOTE | 2017-02-10 11:22 | PDOC PROGRESS REPORT ---
Subjective Progress Note for:: 02/10/17 Subjective:: Denies any complaint Physical Exam Vital Signs: Temp Pulse Resp BP Pulse Ox 97.7 F 87 19 171/97 H 100 02/10/17 08:05 02/10/17 08:05 02/10/17 08:05 02/10/17 08:05 02/10/17 08:05 Intake & Output 02/09/17 02/10/17 02/11/17 06:59 06:59 06:59 Intake Total 2417 Balance 2417 Weight 90 kg General appearance: PRESENT: no acute distress Eye exam: PRESENT: conjunctiva pink. ABSENT: scleral icterus Mouth exam: PRESENT: moist, tongue midline Neck exam: ABSENT: JVD Respiratory exam: PRESENT: clear to auscultation juan ramon. ABSENT: rales, rhonchi, wheezes Cardiovascular exam: PRESENT: RRR. ABSENT: diastolic murmur, rubs, systolic murmur GI/Abdominal exam: PRESENT: normal bowel sounds, soft. ABSENT: distended, guarding, mass, organolmegaly, rebound, tenderness Extremities exam: ABSENT: calf tenderness, clubbing, pedal edema Neurological exam: PRESENT: alert, awake, oriented to person, oriented to place , oriented to time, oriented to situation, CN II-XII grossly intact. ABSENT: motor sensory deficit Psychiatric exam: PRESENT: appropriate affect Skin exam: PRESENT: dry, intact, warm. ABSENT: cyanosis, rash Results Laboratory Results: 02/10/17 04:34 02/10/17 08:00 02/09/17 02/09/17 02/09/17 15:20 15:52 20:00 WBC RBC Hgb Hct MCV MCH MCHC RDW Plt Count Seg Neutrophils % Lymphocytes % Monocytes % Eosinophils % Basophils % Absolute Neutrophils Absolute Lymphocytes Absolute Monocytes Absolute Eosinophils Absolute Basophils Sodium Cancelled 138.0 135.3 L Potassium Cancelled 4.7 4.2 Chloride Cancelled 102 102 Carbon Dioxide Cancelled 18 L 23 Anion Gap Cancelled 18 10 BUN Cancelled 18 16 Creatinine Cancelled 1.40 H 1.23 Est GFR ( Amer) Cancelled > 60 > 60 Est GFR (Non-Af Amer) Cancelled 59 L > 60 Glucose Cancelled 323 H 274 H Calcium Cancelled 9.3 8.5 02/10/17 02/10/17 02/10/17 04:34 04:34 08:00 WBC 10.3 RBC 3.94 L Hgb 9.8 L Hct 29.9 L MCV 76 L MCH 24.9 L MCHC 32.9 RDW 16.3 H Plt Count 278 Seg Neutrophils % 64.5 Lymphocytes % 23.0 Monocytes % 10.4 Eosinophils % 1.3 Basophils % 0.8 Absolute Neutrophils 6.7 Absolute Lymphocytes 2.4 Absolute Monocytes 1.1 Absolute Eosinophils 0.1 Absolute Basophils 0.1 Sodium 137.6 138.7 Potassium 3.6 4.4 Chloride 106 108 H Carbon Dioxide 25 23 Anion Gap 7 8 BUN 12 10 Creatinine 1.06 1.02 Est GFR ( Amer) > 60 > 60 Est GFR (Non-Af Amer) > 60 > 60 Glucose 149 H 163 H Calcium 8.6 8.7 Impressions: Chest X-Ray 02/09/17 12:27 IMPRESSION: NO ACUTE RADIOGRAPHIC FINDING IN THE CHEST. Assessment & Plan - Diagnosis (1) DKA (diabetic ketoacidoses) Qualifiers: Diabetes mellitus type: type 1 Diabetes mellitus complication detail: without coma Qualified Code(s): E10.10 - Type 1 diabetes mellitus with ketoacidosis without coma Is this a current diagnosis for this admission?: YesPlan: The patient has DKA most likely secondary to a viral gastroenteritis. He is doing well today and we will DC the IV fluids and insulin drip and start him on long-acting insulin. Will observe for another 24 hours if he does well we will discharge home tomorrow. (2) Gastroenteritis Is this a current diagnosis for this admission?: YesPlan: Has had symptoms consistent with an acute viral gastroenteritis. He has no evidence for bacterial infection at this time. (3) Hypertension Qualifiers: Hypertension type: essential hypertension Qualified Code(s): I10 - Essential (primary) hypertension Is this a current diagnosis for this admission?: YesPlan: Continue with his atenolol and Norvasc. - Time Time Spent with patient: 25-34 minutes - Inpatient Certification Medical Necessity: Need Close Monitoring Due to Risk of Patient Decompensation - Plan Summary Plan Summary: If he continues to do well we can hopefully discharge home tomorrow.
[2017-02-10] MEDS ORDERED: DEXTROSE 50%-WATER SYRINGE 12.5 GM/25 ML DOSE IV PRN (12:28)
[2017-02-10] MEDS ORDERED: GLUCAGON,HUMAN RECOMB 1 MG INJ IM PRN (12:28)
[2017-02-10] MEDS ORDERED: DEXTROSE 40% GEL 15 GM TUBE X 2 PO PRN (12:28)
[2017-02-10] MEDS ORDERED: DEXTROSE 50%-WATER SYRINGE 25 GM/50 ML DOSE IV PRN (12:28)
[2017-02-10] MEDS ORDERED: DEXTROSE 40% GEL 15 GM TUBE PO PRN (12:28)
[2017-02-10] MEDS ORDERED: INSULIN LISPRO 100 UNIT/ML 3 ML VIAL ONE (12:30)
[2017-02-10] MEDS ORDERED: NICOTINE 21 MG/24 HR PATCH.TD24 TD ONE (13:00)
[2017-02-10] MEDS: MAG HYDROX/AL HYDROX/SIMETH SUSP 30 ML UDCUP PO PRN ×2 (13:21→23:55)
[2017-02-10] MEDS: INSULIN LISPRO 100 UNIT/ML 3 ML VIAL SUBCUT PRN ×3 (13:25→21:27)
[2017-02-10] MEDS: OXYCODONE-ACETAMINOPHEN 5-325 MG TABLET PO PRN ×2 (17:04→22:06)
[2017-02-11] MEDS: OXYCODONE HCL IR 5 MG TABLET PO PRN ×2 (01:22→08:38)
[2017-02-11 02:31] LABS: ABSOLUTE BASOPHILS # (AUTO) 0.1 10^3/uL (0.0-0.2); ABSOLUTE EOSINOPHILS # (AUTO) 0.1 10^3/uL (0.0-0.6); ABSOLUTE LYMPHOCYTES (AUTO) 2.6 10^3/uL (0.5-4.7); ABSOLUTE MONOCYTES (AUTO) 0.9 10^3/uL (0.1-1.4); ABSOLUTE NEUT (AUTO) 6.1 10^3/uL (1.7-8.2); BASOPHILS % (AUTO) 1.1 % (0-2); EOSINOPHILS % (AUTO) 1.4 % (0-6); HEMATOCRIT 33.9 % (37.9-51.0); HEMOGLOBIN 10.9 g/dL (13.5-17.0); HGB HCT DIFFERENCE -1.2; LYMPHOCYTES % (AUTO) 26.2 % (13-45); MEAN CORPUSCULAR HEMOGLOBIN 24.1 pg (27.0-33.4); MEAN CORPUSCULAR HGB CONC 32.2 g/dL (32.0-36.0); MEAN CORPUSCULAR VOLUME 75 fl (80-97); MONOCYTES % (AUTO) 8.8 % (3-13); RED BLOOD COUNT 4.53 10^6/uL (4.35-5.55); RED CELL DISTRIBUTION WIDTH 16.9 % (11.5-14.0); SEGMENTED NEUTROPHILS % (AUTO) 62.5 % (42-78); WHITE BLOOD COUNT 9.8 10^3/uL (4.0-10.5)
[2017-02-11 02:44] LABS: ANION GAP 8 (5-19); BLOOD UREA NITROGEN 8 mg/dL (7-20); CALCIUM 9.2 mg/dL (8.4-10.2); CARBON DIOXIDE 28 mmol/L (22-30); CHLORIDE 104 mmol/L (98-107); CREATININE RESULT 1.05 mg/dL (0.52-1.25); GLUCOSE 63 mg/dL (75-110); POTASSIUM 3.5 mmol/L (3.6-5.0); SODIUM 139.7 mmol/L (137-145)
[2017-02-11] MEDS: GABAPENTIN 300 MG CAPSULE PO SCH ×2 (05:19→11:10)
[2017-02-11] MEDS: BUSPIRONE HCL 10 MG TABLET PO SCH (05:19)
[2017-02-11] MEDS: INSULIN LISPRO 100 UNIT/ML 3 ML VIAL SUBCUT PRN (08:38)
[2017-02-11 08:43] VITALS: BP 161/95
--- NOTE | 2017-02-11 09:15 | PDOC DISCHARGE SUMMARY ---
General - Admit/Disc Date/PCP Admission Date/Primary Care Provider: 02/09/17 14:10 MITCHELL SALGUERO MD Discharge Date: 02/11/17 - Discharge Diagnosis (1) DKA (diabetic ketoacidoses) Is this a current diagnosis for this admission?: YesSummary: Treated initially with an insulin drip. Has been switched back to his usual Levemir dose. (2) Gastroenteritis Is this a current diagnosis for this admission?: Yes (3) Hypertension Is this a current diagnosis for this admission?: Yes - Additional Information Resuscitation Status: Full Code Discharge Diet: Diabetic Discharge Activity: Activity As Tolerated Home Medications: Amlodipine Besylate [Norvasc 5 mg Tablet] 5 mg PO DAILY 02/09/17 Atenolol [Tenormin] 25 mg PO DAILY 02/09/17 Buspirone HCl [Buspar 15 mg Tablet] 15 mg PO Q8 02/09/17 Duloxetine HCl [Cymbalta] 60 mg PO DAILY 02/09/17 Gabapentin [Neurontin 300 mg Capsule] 300 mg PO Q6 02/09/17 Hydrochlorothiazide [Hydrodiuril 12.5 mg Capsule] 25 mg PO DAILY 02/09/17 Hydroxyzine Pamoate [Vistaril 50 mg Capsule] 50 mg PO Q8HP PRN 02/09/17 Insulin Aspart [Novolog Flexpen] 0 units SQ MEALS PRN MDD 45 UNITS 02/09/17 Insulin Detemir [Levemir Flextouch] 40 units SQ QHS 02/09/17 Oxycodone HCl 15 mg PO Q6 02/09/17 Quetiapine Fumarate [Seroquel 100 mg Tablet] 100 mg PO Q8 02/09/17 Nicotine [Nicoderm 21 mg/24 Hr Transderm Patch] 1 each TD DAILY patch.[id number] History of Present Illness History of Present Illness: LENA SCHULZ is a 31 year old male with a history of type 1 diabetes mellitus and has had frequent admissions for diabetic ketoacidosis who presents with 1 day history of nausea vomiting some crampy abdominal pain. He denies having any fevers or chills. He has had difficulty tolerating p.o. and has had elevated blood sugars. He presents with diabetic ketoacidosis. He denies having any fevers or chills. He denies any shortness of breath or chest pain. He denies any dysuria but does have urinary frequency. He denies any skin rashes or lesions. Hospital Course Hospital Course: 31-year-old male well-known to the hospitalist service who presented with DKA. The patient had a gastroenteritis as a cause for his nausea vomiting and decreased p.o. intake. Patient was treated aggressively with IV fluids as well as IV insulin drip. His DKA quickly resolved and he was switched over to his usual Levemir dose. The patient has done well and is tolerating a diet and is discharged home. Physical Exam Vital Signs: Temp Pulse Resp BP Pulse Ox 98.2 F 88 19 161/95 H 100 02/11/17 08:40 02/11/17 08:40 02/11/17 08:40 02/11/17 08:40 02/11/17 08:40 Intake & Output 02/10/17 02/11/17 02/12/17 06:59 06:59 06:59 Intake Total 2417 824 Output Total 0 Balance 2417 824 Weight 90 kg 90.2 kg General appearance: PRESENT: no acute distress Eye exam: PRESENT: conjunctiva pink. ABSENT: scleral icterus Mouth exam: PRESENT: moist, tongue midline Neck exam: ABSENT: JVD Respiratory exam: PRESENT: clear to auscultation juan ramon. ABSENT: rales, rhonchi, wheezes Cardiovascular exam: PRESENT: RRR. ABSENT: diastolic murmur, rubs, systolic murmur Vascular exam: PRESENT: normal capillary refill GI/Abdominal exam: PRESENT: normal bowel sounds, soft. ABSENT: distended, guarding, mass, organolmegaly, rebound, tenderness Rectal exam: PRESENT: deferred Extremities exam: ABSENT: calf tenderness, clubbing, pedal edema Neurological exam: PRESENT: alert, awake, oriented to person, oriented to place , oriented to time, oriented to situation, CN II-XII grossly intact. ABSENT: motor sensory deficit Psychiatric exam: PRESENT: appropriate affect Skin exam: PRESENT: dry, intact, warm. ABSENT: cyanosis, rash Results Laboratory Results: 02/11/17 02:20 02/11/17 02:20 02/11/17 02/11/17 02:20 02:20 WBC 9.8 RBC 4.53 Hgb 10.9 L Hct 33.9 L MCV 75 L MCH 24.1 L MCHC 32.2 RDW 16.9 H Plt Count 279 Seg Neutrophils % 62.5 Lymphocytes % 26.2 Monocytes % 8.8 Eosinophils % 1.4 Basophils % 1.1 Absolute Neutrophils 6.1 Absolute Lymphocytes 2.6 Absolute Monocytes 0.9 Absolute Eosinophils 0.1 Absolute Basophils 0.1 Sodium 139.7 Potassium 3.5 L Chloride 104 Carbon Dioxide 28 Anion Gap 8 BUN 8 Creatinine 1.05 Est GFR ( Amer) > 60 Est GFR (Non-Af Amer) > 60 Glucose 63 L Calcium 9.2 Impressions: Chest X-Ray 02/09/17 12:27 IMPRESSION: NO ACUTE RADIOGRAPHIC FINDING IN THE CHEST. Qualifiers PATEINT BEING DISCHARGED WITH ANY OF THE FOLLOWING DIAGNOSIS?: No Plan Discharge Plan: Discharged to home in stable condition. Will follow with his primary care doctor in 2 week Time Spent: Greater than 30 Minutes
[2017-02-11] MEDS ORDERED: NICOTINE 21 MG/24 HR PATCH.TD24 TD SCH (10:00)
[2017-02-11] MEDS: DULOXETINE HCL 30 MG CAPSULE.DR PO SCH (10:08)
[2017-02-11] MEDS: FAMOTIDINE 20 MG TABLET PO SCH (10:08)
[2017-02-11] MEDS: ATENOLOL 50 MG TABLET PO SCH (10:08)
[2017-02-11] MEDS: AMLODIPINE BESYLATE 5 MG TABLET PO SCH (10:09)
[2017-02-11] MEDS: OXYCODONE-ACETAMINOPHEN 5-325 MG TABLET PO PRN (10:09)
== END 2017-02-11 11:15 | disposition home or self-care (01) | DRG 639 ==
LOC: ER 10:11 → EH 14:10 → 3W 17:56
PROVIDERS: ADMIT Internal Medicine; ATTEND Internal Medicine
DX: E10.10 Type 1 diabetes mellitus with ketoacidosis without coma (principal); A08.4 Viral intestinal infection, unspecified; I10 Essential (primary) hypertension; F41.8 Other specified anxiety disorders; Z79.4 Long term (current) use of insulin; Z79.899 Other long term (current) drug therapy
CPT/HCPCS: 36415; 71010; 80048; 80053; 80307; 81001; 82962; 83735; 83930; 85025; 93005; 93010; 96361; 96374; 96375; 99291; J1200; J1815; J2405; J2765; J7030

== ENCOUNTER 2017-03-07 16:15 | Emergency (ER) | payer MEDICAID ==
[2017-03-07 16:51] VITALS: BP 151/102
== END 2017-03-07 17:20 | disposition left against medical advice (07) ==
LOC: ER 16:15
DX: Z53.21 Procedure and treatment not carried out due to patient leaving prior to being seen by health care provider (principal)

== ENCOUNTER 2017-03-07 20:17 | Emergency (ER) | payer MEDICAID, OTHER ==
[2017-03-07 21:12] LABS: ABSOLUTE BASOPHILS # (AUTO) 0.1 10^3/uL (0.0-0.2); ABSOLUTE EOSINOPHILS # (AUTO) 0.2 10^3/uL (0.0-0.6); ABSOLUTE LYMPHOCYTES (AUTO) 2.6 10^3/uL (0.5-4.7); ABSOLUTE MONOCYTES (AUTO) 0.9 10^3/uL (0.1-1.4); ABSOLUTE NEUT (AUTO) 6.6 10^3/uL (1.7-8.2); BASOPHILS % (AUTO) 0.9 % (0-2); EOSINOPHILS % (AUTO) 1.7 % (0-6); HEMATOCRIT 37.8 % (37.9-51.0); HEMOGLOBIN 11.6 g/dL (13.5-17.0); LYMPHOCYTES % (AUTO) 24.9 % (13-45); MEAN CORPUSCULAR HGB CONC 30.8 g/dL (32.0-36.0); MEAN CORPUSCULAR VOLUME 78 fl (80-97); MONOCYTES % (AUTO) 8.6 % (3-13); RED BLOOD COUNT 4.85 10^6/uL (4.35-5.55); SEGMENTED NEUTROPHILS % (AUTO) 63.9 % (42-78); WHITE BLOOD COUNT 10.3 10^3/uL (4.0-10.5)
--- NOTE | 2017-03-07 21:27 | ER Document Report ---
ED Medical Screen (RME) - General Chief Complaint: Psych Problem Stated Complaint: PSYCH EVAL Time Seen by Provider: 03/07/17 21:07 Notes: 31-year-old male, chief complaint of hearing voices and thinking about killing himself. Has a history of the same. He states he is thinking about slitting his throat. States he is taking his psychiatric medications but he has felt worse for the past 3 days. Denies any physical symptoms other than chronic back pain. Denies fever. States he was dropped off by his significant other. TRAVEL OUTSIDE OF THE [place] IN LAST 30 DAYS: No - Related Data Allergies/Adverse Reactions: No Known Allergies Allergy (Verified 03/07/17 16:50) Past Medical History - Social History Family history: Reviewed & Not Pertinent - Past Medical History Cardiac Medical History: Reports: Hx Hypertension Denies: Hx Congestive Heart Failure, Hx DVT, Hx Heart Attack, Hx Hypercholesterolemia, Hx Pulmonary Embolism Pulmonary Medical History: Reports: Hx Asthma - as child Denies: Hx COPD, Hx Sleep Apnea Neurological Medical History: Reports: Hx Migraine. Denies: Hx Seizures Endocrine Medical History: Reports: Hx Diabetes Mellitus Type 1. Denies: Hx Diabetes Mellitus Type 2, Hx Hyperthyroidism, Hx Hypothyroidism Renal/ Medical History: Denies: Hx Peritoneal Dialysis GI Medical History: Denies: Hx Cirrhosis, Hx Gastroesophageal Reflux Disease, Hx Hepatitis Musculoskeltal Medical History: Denies Hx Arthritis Psychiatric Medical History: Reports: Hx Anxiety, Hx Depression Infectious Medical History: Denies: Hx C-Diff, Hx Hepatitis, Hx MRSA Past Surgical History: Reports: Hx Appendectomy, Hx Oral Surgery - wisdom teeth , Other - [place] teeth extraction - Immunizations Hx Diphtheria, Pertussis, Tetanus Vaccination: Yes Physical Exam - Vital signs Vitals: Temp Pulse Resp BP Pulse Ox 98.2 F 107 H 17 146/102 H 99 03/07/17 20:48 03/07/17 20:48 03/07/17 20:48 03/07/17 20:48 03/07/17 20:48 - Psychological Associated symptoms: No: Normal affect - Very flat affect, monotone, although he does make eye contact Course - Vital Signs Vital signs: Temp Pulse Resp BP Pulse Ox 98.2 F 107 H 17 146/102 H 99 03/07/17 20:48 03/07/17 20:48 03/07/17 20:48 03/07/17 20:48 03/07/17 20:48
[2017-03-07 21:32] LABS: ALANINE AMINOTRANSFERASE 26 U/L (21-72); ALBUMIN 3.8 g/dL (3.5-5.0); ALKALINE PHOSPHATASE 100 U/L (38-126); ANION GAP 13 (5-19); ASPARTATE AMINO TRANSFERASE 16 U/L (17-59); BILIRUBIN,DIRECT 0.3 mg/dL (0.0-0.4); BILIRUBIN,TOTAL 0.3 mg/dL (0.2-1.3); BLOOD UREA NITROGEN 12 mg/dL (7-20); CALCIUM 9.3 mg/dL (8.4-10.2); CARBON DIOXIDE 26 mmol/L (22-30); CHLORIDE 100 mmol/L (98-107); CREATININE RESULT 1.35 mg/dL (0.52-1.25); GLUCOSE 345 mg/dL (75-110); SODIUM 138.5 mmol/L (137-145); TOTAL PROTEIN 7.2 g/dL (6.3-8.2)
[2017-03-07 21:33] LABS: ALCOHOL < 10 mg/dL (NONE DETECTED)
[2017-03-07 22:01] LABS: APPEARANCE,URINE CLEAR; BILIRUBIN,URINE NEGATIVE (NEGATIVE); GLUCOSE, URINE >=500 mg/dL (NEGATIVE); KETONES,URINE NEGATIVE (NEGATIVE); LEUKOCYTE ESTERASE,URINE NEGATIVE (NEGATIVE); NITRITE,URINE NEGATIVE (NEGATIVE); PROTEIN,URINE >=500 mg/dL (NEGATIVE); URINE SPECIFIC GRAVITY 1.016; UROBILINOGEN,URINE NEGATIVE mg/dL (<2.0)
[2017-03-07 22:14] LABS: URINE BARBITURATES SCREEN NEGATIVE; URINE METHADONE SCREEN NEGATIVE; URINE OPIATES LOW NEGATIVE; URINE PHENCYCLIDINE SCREEN NEGATIVE
[2017-03-07] MEDS ORDERED: LIDOCAINE 5% (700 MG) TRANSDERMAL ADH..PATCH TP ONE (23:00)
[2017-03-07] MEDS ORDERED: HYDROXYZINE PAMOATE 50 MG CAPSULE PO ONE (23:00)
[2017-03-07] MEDS ORDERED: IBUPROFEN 600 MG TABLET PO ONE (23:00)
[2017-03-07] MEDS ORDERED: DEXTROSE 50%-WATER 25 GM/50 ML DISP.SYRIN IV PRN ×2 (23:01)
[2017-03-07] MEDS ORDERED: DEXTROSE 40% GEL 15 GM TUBE PO PRN ×2 (23:01)
[2017-03-07] MEDS ORDERED: GLUCAGON,HUMAN RECOMB 1 MG INJ IM PRN (23:01)
--- NOTE | 2017-03-07 23:06 | ER Document Report ---
ED General - General Chief Complaint: Psych Problem Stated Complaint: PSYCH EVAL Time Seen by Provider: 03/07/17 21:07 Notes: Patient is a 31-year-old male with past medical history of schizophrenia, reports compliance with treatment as well as persistently uncontrolled type 1 diabetes who presents with suicidal ideation as well as auditory hallucinations. Patient reports a plan to cut his neck with a knife and states he has access to this weapon. Symptoms have been present for the past 1 day. Nothing improves or worsens the symptoms. He has been to the emergency department repeatedly over the past 6 months for a similar complaint. He has not seen a psychiatric provider regarding today's concerns. He has a history of poor outpatient follow-up. He also reports chronic diffuse low back pain that is unchanged today. Describes as a dull, constant, aching pain to the bilateral low back. Denies any weakness, numbness, bowel or bladder incontinence, urinary retention, or difficulty with ambulation. Denies any IV drug use or fever. TRAVEL OUTSIDE OF THE [place] IN LAST 30 DAYS: No - Related Data Allergies/Adverse Reactions: No Known Allergies Allergy (Verified 03/07/17 16:50) Past Medical History - General Information source: Patient - Social History Smoking Status: Current Every Day Smoker Frequency of alcohol use: Occasional Drug Abuse: Marijuana Lives with: Homeless Family History: Reviewed & Not Pertinent, DM, Hypertension Patient has suicidal ideation: Yes Patient has homicidal ideation: No - Past Medical History Cardiac Medical History: Reports: Hx Hypertension Denies: Hx Congestive Heart Failure, Hx DVT, Hx Heart Attack, Hx Hypercholesterolemia, Hx Pulmonary Embolism Pulmonary Medical History: Reports: Hx Asthma - as child Denies: Hx COPD, Hx Sleep Apnea Neurological Medical History: Reports: Hx Migraine. Denies: Hx Seizures Endocrine Medical History: Reports: Hx Diabetes Mellitus Type 1. Denies: Hx Diabetes Mellitus Type 2, Hx Hyperthyroidism, Hx Hypothyroidism Renal/ Medical History: Denies: Hx Peritoneal Dialysis GI Medical History: Denies: Hx Cirrhosis, Hx Gastroesophageal Reflux Disease, Hx Hepatitis Musculoskeltal Medical History: Denies Hx Arthritis Psychiatric Medical History: Reports: Hx Anxiety, Hx Depression Infectious Medical History: Denies: Hx C-Diff, Hx Hepatitis, Hx MRSA Past Surgical History: Reports: Hx Appendectomy, Hx Oral Surgery - wisdom teeth , Other - [place] teeth extraction - Immunizations Hx Diphtheria, Pertussis, Tetanus Vaccination: Yes Hx Pneumococcal Vaccination: 09/16/00 Review of Systems - Review of Systems Notes: Constitutional: Negative for fever. HENT: Negative for sore throat. Eyes: Negative for visual changes. Cardiovascular: Negative for chest pain. Respiratory: Negative for shortness of breath. Gastrointestinal: Negative for abdominal pain, vomiting or diarrhea. Genitourinary: Negative for dysuria. Musculoskeletal: Positive for back pain. Skin: Negative for rash. Neurological: Negative for headaches, weakness or numbness. 10 point ROS negative except as marked above and in HPI. Physical Exam - Vital signs Vitals: Temp Pulse Resp BP Pulse Ox 98.2 F 107 H 17 146/102 H 99 03/07/17 20:48 03/07/17 20:48 03/07/17 20:48 03/07/17 20:48 03/07/17 20:48 Interpretation: Tachycardic - Resolved by time of evaluation Notes: PHYSICAL EXAMINATION: GENERAL: Well-appearing, well-nourished and in no acute distress. HEAD: Atraumatic, normocephalic. EYES: Pupils equal round and reactive to light, extraocular movements intact, sclera anicteric, conjunctiva are normal. ENT: nares patent, oropharynx clear without exudates. Moist mucous membranes. NECK: Normal range of motion, supple without lymphadenopathy LUNGS: Breath sounds clear to auscultation bilaterally and equal. No wheezes rales or rhonchi. HEART: Regular rate and rhythm without murmurs ABDOMEN: Soft, nontender, normoactive bowel sounds. No guarding, no rebound. No masses appreciated. EXTREMITIES: Normal range of motion, no pitting or edema. No cyanosis. NEUROLOGICAL: No focal neurological deficits. Moves all extremities spontaneously and on command. PSYCH: Depressed mood and affect. Poor eye contact. Does not be appear to be responding to internal stimuli. SKIN: Warm, Dry, normal turgor, no rashes or lesions noted. Course - Re-evaluation Re-evalutation: 03/07/17 23:05 Patient presents with suicidal ideation with a plan to cut his throat with a knife. Reports that he is having auditory hallucinations that are commanding him to kill himself. Reports that he does have access to a knife and continues to feel suicidal at this time. He also notes chronic back pain that is unchanged today. Denies any neurovascular deficits, difficulty with ambulation , bowel or bladder incontinence. No indication for further workup with his chronic back pain at this time. Given patient's specific plan with intent to complete, despite his recurrent visits to the emergency department for similar thoughts will place under IVC for evaluation by psychiatry in the morning. His medical screening laboratories are notable only for hypoglycemia which again is typical for this patient as he is completely noncompliant with his insulin regimen. He is not in DKA based on labs or history. He has been started on insulin sliding scale. Patient has requested something for anxiety and sleep. He is also requesting something for his back pain. Will treat with Atarax for anxiety as well as a lidocaine patch and ibuprofen for his back pain. He is medically cleared at this time for evaluation by psychiatry in the morning. - Vital Signs Vital signs: Temp Pulse Resp BP Pulse Ox 98.2 F 107 H 17 146/102 H 99 03/07/17 20:48 03/07/17 20:48 03/07/17 20:48 03/07/17 20:48 03/07/17 20:48 - Laboratory Result Diagrams: 03/07/17 20:50 03/07/17 20:50 Laboratory results interpreted by me: 03/07/17 03/07/17 03/07/17 20:50 20:50 21:30 Hgb 11.6 L Hct 37.8 L MCV 78 L MCH 24.0 L MCHC 30.8 L RDW 17.0 H Creatinine 1.35 H Glucose 345 H AST 16 L Urine Protein >=500 H Urine Glucose (UA) >=500 H Salicylates < 1.0 L Acetaminophen < 10 L - EKG Interpretation by Me Additional EKG results interpreted by me: 03/07/17 23:06 Normal sinus rhythm rate 94. No ST elevations or depressions. QTC is 436 Discharge - Discharge Clinical Impression: Suicidal ideation, Hyperglycemia Chronic low back pain Qualifiers: Back pain laterality: bilateral Sciatica presence: without sciatica Qualified Code(s): M54.5 - Low back pain; G89.29 - Other chronic pain Condition: Fair Disposition: PSYCH HOSP/UNIT
[2017-03-07] MEDS: INSULIN REG, HUMAN 100 UNIT/ML 3 ML VIAL (PYX) SUBCUT PRN (23:45)
--- NOTE | 2017-03-08 03:59 | EKG REPORT ---
SEVERITY:- NORMAL ECG - SINUS RHYTHM : Confirmed by: Arin Drummond MD 08-Mar-2017 03:58:27
[2017-03-08] MEDS: INSULIN REG, HUMAN 100 UNIT/ML 3 ML VIAL (PYX) SUBCUT PRN (11:06)
--- NOTE | 2017-03-08 16:40 | ER Document Report ---
ED Psych Disorder / Suicide - General TRAVEL OUTSIDE OF THE [place] IN LAST 30 DAYS: No <JUS NAJERA - Last Filed: 03/08/17 16:37> <KENNETH SALAZAR - Last Filed: 03/09/17 14:41> - General Chief Complaint: Psych Problem Stated Complaint: PSYCH EVAL Time Seen by Provider: 03/07/17 21:07 - HPI Notes: Patient is a 31-year-old male with past medical history of schizophrenia, reports compliance with treatment as well as persistently uncontrolled type 1 diabetes who presents with suicidal ideation as well as auditory hallucinations. Patient reports a plan to cut his neck with a knife and states he has access to this weapon. Symptoms have been present for the past 1 day. Nothing improves or worsens the symptoms. He has been to the emergency department repeatedly over the past 6 months for a similar complaint. He has not seen a psychiatric provider regarding today's concerns. Patient states he came to [facility] because he is still hearing voices. He continued to state that he went to his provider, [facility], and they told him to keep taking his medication because it takes time. He disclosed that he has been taking his medication now for a "couple of months." Patient disclosed he has been staying "here and there." Patient is alert and orientated to person place time and circumstance. Mood is euthymic with flat affect. Patient endorses suicidal ideation to attending physician however denies to clinician. Patient denies homicidal ideation. Patient endorses auditory and visual hallucinations; patient is not demonstrating any behavior congruent with internal stimuli. No delusions are noted. Thought process is organized and linear. Conversational speech was within normal rate tone and prosody. Eye contact was fair. Intellectual abilities appear to be average range. Attention and concentration are good. Insight, judgment, impulse control are historically poor. Unspecified depressive disorder per history Cannabis use disorder, per history Patient is psychiatrically cleared and recommended for discharge. Recommend rescind IVC. Patient presents with no new concerns and has been referred to numerous outpatient providers to assist him with his depression. Patient continuously presents to the emergency room with diabetes related concerns and or suicidal ideations. Patient poorly manages his diabetes as well as his depression. Patient abuses marijuana. Patient reports he feels people are out to get him, but is unable or chooses not to disclose how he knows or feels people are out to get him. Patient additionally reports he hears voices, which he does provide specifics despite numerous prompts. Patient has been seen numerous times by this clinician and this department, and has not once been noted to appear to be responding to internal stimuli. Patient no longer meets criteria for involuntary commitment per the [place] [facility] Statute 122C as his reports appear incongruent with his overall presentation. Patient is encouraged to follow up with his provider, [facility] within 3-5 days for further evaluation. Patient is encouraged to pursue outpatient counseling to assist him in coping with and managing his social stressors. I consulted with Dr. Waller in regards to the care and management of this patient. (JUS NAJERA) - Related Data Allergies/Adverse Reactions: No Known Allergies Allergy (Verified 03/07/17 16:50) Past Medical History - General Information source: Patient - Social History Smoking Status: Current Every Day Smoker Frequency of alcohol use: Occasional Drug Abuse: Marijuana Lives with: Homeless Family History: Reviewed & Not Pertinent, DM, Hypertension Patient has suicidal ideation: Yes Patient has homicidal ideation: No - Past Medical History Cardiac Medical History: Reports: Hx Hypertension Denies: Hx Congestive Heart Failure, Hx DVT, Hx Heart Attack, Hx Hypercholesterolemia, Hx Pulmonary Embolism Pulmonary Medical History: Reports: Hx Asthma - as child Denies: Hx COPD, Hx Sleep Apnea Neurological Medical History: Reports: Hx Migraine. Denies: Hx Seizures Endocrine Medical History: Reports: Hx Diabetes Mellitus Type 1. Denies: Hx Diabetes Mellitus Type 2, Hx Hyperthyroidism, Hx Hypothyroidism Renal/ Medical History: Denies: Hx Peritoneal Dialysis GI Medical History: Denies: Hx Cirrhosis, Hx Gastroesophageal Reflux Disease, Hx Hepatitis Musculoskeltal Medical History: Denies Hx Arthritis Psychiatric Medical History: Reports: Hx Anxiety, Hx Depression Infectious Medical History: Denies: Hx C-Diff, Hx Hepatitis, Hx MRSA Past Surgical History: Reports: Hx Appendectomy, Hx Oral Surgery - wisdom teeth , Other - [place] teeth extraction - Immunizations Hx Diphtheria, Pertussis, Tetanus Vaccination: Yes Hx Pneumococcal Vaccination: 09/16/00 <JUS NAJERA - Last Filed: 03/08/17 16:37> Course - Laboratory Result Diagrams: 03/07/17 20:50 03/07/17 20:50 <JUS NAJERA - Last Filed: 03/08/17 16:37> - Laboratory Result Diagrams: 03/07/17 20:50 03/07/17 20:50 <MARIEKENNETH - Last Filed: 03/09/17 14:41> - Vital Signs Vital signs: Temp Pulse Resp BP Pulse Ox 98.1 F 88 20 150/86 H 100 03/08/17 17:33 03/08/17 17:33 03/08/17 17:33 03/08/17 17:33 03/08/17 17:33 - Laboratory Laboratory results interpreted by me: 03/07/17 03/07/17 03/07/17 20:50 20:50 21:30 Hgb 11.6 L Hct 37.8 L MCV 78 L MCH 24.0 L MCHC 30.8 L RDW 17.0 H Creatinine 1.35 H Glucose 345 H POC Glucose AST 16 L Urine Protein >=500 H Urine Glucose (UA) >=500 H Salicylates < 1.0 L Acetaminophen < 10 L 03/07/17 03/08/17 03/08/17 23:22 04:25 05:32 Hgb Hct MCV MCH MCHC RDW Creatinine Glucose POC Glucose 283 H 53 L 154 H AST Urine Protein Urine Glucose (UA) Salicylates Acetaminophen 03/08/17 11:01 Hgb Hct MCV MCH MCHC RDW Creatinine Glucose POC Glucose 275 H AST Urine Protein Urine Glucose (UA) Salicylates Acetaminophen Discharge <JUS NAJERA - Last Filed: 03/08/17 16:37> <KENNETH SALAZAR - Last Filed: 03/09/17 14:41> - Discharge Clinical Impression: Suicidal ideation, Hyperglycemia Chronic low back pain Qualifiers: Back pain laterality: bilateral Sciatica presence: without sciatica Qualified Code(s): M54.5 - Low back pain Depression Qualifiers: Depression Type: unspecified Qualified Code(s): F32.9 - Major depressive disorder, single episode, unspecified Condition: Stable Disposition: HOME, SELF-CARE Additional Instructions: DEPRESSION: Your evaluation reveals that you have mental depression. While symptoms may be vague, they often include disturbance of sleep, fatigue, loss of appetite , and general loss of interest in life. While depression may be a side effect of drugs, or a reaction to a major change in your life, many cases have no known cause. If depression is acute, and related to a major loss in your life, you can expect it to clear completely with time. If you have been depressed a long time , are prone to repeated bouts of depression or low mood, or have been thinking of suicide, get help. Depression can be treated with anti-depressant medication and counselling. Long-term depression will often take a few weeks to clear, even with appropriate medication. Follow-up care is important. SUICIDAL IDEATION: Suicidal ideation is a common medical term for thoughts about suicide, which may be as detailed as a formulated plan, without the suicidal act itself. Although most people who undergo suicidal ideation do not commit suicide, some go on to make suicide attempts. The range of suicidal ideation varies greatly from fleeting to detailed planning, role playing, and unsuccessful attempts. While thoughts about suicide are common, most people do not carry out serious actions to commit suicide. Based upon your evaluation and discussion with you, we do not believe you are currently at risk to act upon your thoughts of suicide. You have agreed to return to the Emergency Department, at any time , if you feel inclined to act upon your suicidal thoughts. FOLLOW-UP CARE: Please follow-up with your outpatient mental health provider, ISABELL, within 3-5 days for your mental health services. If you experience worsening or a significant change in your symptoms, notify the physician immediately or return to the Emergency Department at any time for re-evaluation. Referrals: [facility] [Outside] - Follow up in 3-5 days
[2017-03-08 17:34] VITALS: BP 150/86
--- NOTE | 2017-03-08 18:11 | ER Document Report ---
Doctor's Note Notes: 03/08/17 18:11 Patient seen and evaluated at the bedside at request for discharge from the mental health team. Patient is awake alert GCS of 15 not suicidal homicidal does not pose an immediate. He has been medically cleared as well psychiatrically cleared and given discharge instructions for follow which she verbalized and understands. He states that he feels comfortable going home has a ride in a support system and clearly discussed under full understanding and reasons for ED return sooner
== END 2017-03-08 18:13 | disposition home or self-care (01) ==
LOC: ER 20:17
DX: F20.9 Schizophrenia, unspecified (principal); F32.9 Major depressive disorder, single episode, unspecified; R45.851 Suicidal ideations; G89.29 Other chronic pain; M54.5 Low back pain; E10.65 Type 1 diabetes mellitus with hyperglycemia; Z91.14 Patient's other noncompliance with medication regimen; F17.200 Nicotine dependence, unspecified, uncomplicated; I10 Essential (primary) hypertension; F41.9 Anxiety disorder, unspecified
CPT/HCPCS: 93005; 99284; 36415; 82962; 80307 ×4; 85025; 80053; 81001; 93010; J3490 ×2; J1815

== ENCOUNTER 2017-03-09 00:06 | Emergency (ER) | payer MEDICAID, OTHER ==
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
[2017-03-09 03:49] VITALS: BP 130/78
== END 2017-03-09 03:35 | disposition home or self-care (01) ==
LOC: ER 00:06
DX: M54.5 Low back pain (principal); M54.9 Dorsalgia, unspecified; V87.7XXA Person injured in collision between other specified motor vehicles (traffic), initial encounter; F17.210 Nicotine dependence, cigarettes, uncomplicated
CPT/HCPCS: 72110; 99283

== ENCOUNTER 2017-03-09 14:30 | Inpatient (IN) | payer MEDICAID ==
[2017-03-09] MEDS ORDERED: NORMAL SALINE 1000 ML 1,000 ML IV PRN ×2 (14:57→18:36)
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
[2017-03-09 16:07] LABS: APPEARANCE,URINE CLEAR; BILIRUBIN,URINE NEGATIVE (NEGATIVE); GLUCOSE, URINE >=500 mg/dL (NEGATIVE); KETONES,URINE 20 mg/dL (NEGATIVE); LEUKOCYTE ESTERASE,URINE NEGATIVE (NEGATIVE); NITRITE,URINE NEGATIVE (NEGATIVE); PROTEIN,URINE 30 mg/dL (NEGATIVE); URINE SPECIFIC GRAVITY 1.016; UROBILINOGEN,URINE NEGATIVE mg/dL (<2.0)
[2017-03-09 16:14] LABS: BACTERIA,URINE TRACE /HPF; RBC,URINE 0-1 /HPF; WBC,URINE 0-1 /HPF
--- NOTE | 2017-03-09 16:33 | RADIOLOGY REPORT (SQ) ---
EXAM DESCRIPTION: CHEST SINGLE VIEW COMPLETED DATE/TIME: 03/09/2017 4:23 pm REASON FOR STUDY: weak COMPARISON: 02/09/2017 EXAM PARAMETERS: NUMBER OF VIEWS: One view. TECHNIQUE: Single frontal radiographic view of the chest acquired. RADIATION DOSE: NA LIMITATIONS: None. FINDINGS: LUNGS AND PLEURA: No opacities, masses or pneumothorax. No pleural effusion. MEDIASTINUM AND HILAR STRUCTURES: No masses. Contour normal. HEART AND VASCULAR STRUCTURES: Heart normal in size. Normal vasculature. BONES: No acute findings. HARDWARE: None in the chest. OTHER: No other significant finding. IMPRESSION: NO ACUTE RADIOGRAPHIC FINDING IN THE CHEST. TECHNICAL DOCUMENTATION: JOB ID: [id number]
[2017-03-09] MEDS ORDERED: NORMAL SALINE 100 ML with INSULIN REGULAR, HUMAN 100 UNIT IV PRN ×2 (16:40)
[2017-03-09] MEDS ORDERED: INSULIN REG, HUMAN 100 UNIT/ML 3 ML VIAL (PYX) ONE (17:08)
--- NOTE | 2017-03-09 17:38 | EKG REPORT ---
SEVERITY:- OTHERWISE NORMAL ECG - SINUS TACHYCARDIA : Confirmed by: Zakiya Francis 09-Mar-2017 17:38:10
[2017-03-09 17:39] LABS: ABSOLUTE BASOPHILS # (AUTO) 0.1 10^3/uL (0.0-0.2); ABSOLUTE LYMPHOCYTES (AUTO) 1.1 10^3/uL (0.5-4.7); ABSOLUTE MONOCYTES (AUTO) 0.9 10^3/uL (0.1-1.4); ABSOLUTE NEUT (AUTO) 9.7 10^3/uL (1.7-8.2); BASOPHILS % (AUTO) 0.7 % (0-2); EOSINOPHILS % (AUTO) 0.3 % (0-6); HEMATOCRIT 37.9 % (37.9-51.0); HEMOGLOBIN 11.2 g/dL (13.5-17.0); LYMPHOCYTES % (AUTO) 8.9 % (13-45); MEAN CORPUSCULAR HEMOGLOBIN 24.4 pg (27.0-33.4); MEAN CORPUSCULAR HGB CONC 29.5 g/dL (32.0-36.0); MONOCYTES % (AUTO) 7.8 % (3-13); RED BLOOD COUNT 4.57 10^6/uL (4.35-5.55); SEGMENTED NEUTROPHILS % (AUTO) 82.3 % (42-78); WHITE BLOOD COUNT 11.8 10^3/uL (4.0-10.5)
[2017-03-09] MEDS ORDERED: ONDANSETRON HCL INJ/PF 4 MG/2 ML SDV IV ONE (17:49)
[2017-03-09 17:51] LABS: ALANINE AMINOTRANSFERASE 44 U/L (21-72); ALBUMIN 3.7 g/dL (3.5-5.0); ALKALINE PHOSPHATASE 166 U/L (38-126); ANION GAP 16 (5-19); ASPARTATE AMINO TRANSFERASE 59 U/L (17-59); BILIRUBIN,DIRECT 0.4 mg/dL (0.0-0.4); BILIRUBIN,TOTAL 0.8 mg/dL (0.2-1.3); BLOOD UREA NITROGEN 25 mg/dL (7-20); CALCIUM 8.6 mg/dL (8.4-10.2); CARBON DIOXIDE 21 mmol/L (22-30); CHLORIDE 86 mmol/L (98-107); CREATINE KINASE 199 U/L (55-170); CREATININE RESULT 1.44 mg/dL (0.52-1.25); LIPASE 223.4 U/L (23-300); POTASSIUM 5.7 mmol/L (3.6-5.0); SODIUM 122.5 mmol/L (137-145); TOTAL PROTEIN 6.8 g/dL (6.3-8.2)
[2017-03-09] MEDS ORDERED: ONDANSETRON HCL INJ/PF 4 MG/2 ML SDV ONE (17:52)
[2017-03-09 17:55] LABS: HGB HCT DIFFERENCE -4.3
[2017-03-09 17:56] LABS: MEAN CORPUSCULAR VOLUME 83 fl (80-97)
[2017-03-09 18:02] LABS: CREATINE KINASE MB 1.35 ng/mL (<4.55)
[2017-03-09 18:05] LABS: GLUCOSE 1209 mg/dL (75-110)
[2017-03-09 18:06] LABS: TROPONIN I < 0.012 ng/mL
[2017-03-09 18:14] LABS: APPEARANCE,URINE CLEAR; BILIRUBIN,URINE NEGATIVE (NEGATIVE); GLUCOSE, URINE >=500 mg/dL (NEGATIVE); KETONES,URINE TRACE mg/dL (NEGATIVE); LEUKOCYTE ESTERASE,URINE NEGATIVE (NEGATIVE); NITRITE,URINE NEGATIVE (NEGATIVE); PROTEIN,URINE 30 mg/dL (NEGATIVE); URINE SPECIFIC GRAVITY 1.018; UROBILINOGEN,URINE NEGATIVE mg/dL (<2.0)
[2017-03-09 18:18] LABS: BACTERIA,URINE TRACE /HPF; RBC,URINE NONE SEEN /HPF; WBC,URINE NONE SEEN /HPF
[2017-03-09] MEDS ORDERED: ONDANSETRON HCL INJ/PF 4 MG/2 ML SDV IV PRN (18:36)
[2017-03-09] MEDS ORDERED: ACETAMINOPHEN 325 MG TABLET PO PRN (18:36)
[2017-03-09] MEDS ORDERED: ONDANSETRON 4 MG TAB.RAPDIS PO PRN (18:36)
[2017-03-09] MEDS ORDERED: DEXTROSE 40% GEL 15 GM TUBE PO PRN ×2 (18:41)
[2017-03-09] MEDS ORDERED: DEXTROSE 50%-WATER 25 GM/50 ML DISP.SYRIN IV PRN ×2 (18:41)
[2017-03-09] MEDS ORDERED: GLUCAGON,HUMAN RECOMB 1 MG INJ IM PRN (18:41)
--- NOTE | 2017-03-09 18:50 | PDOC H&P ---
History of Present Illness Admission Date/PCP: JARON ANN MD Patient complains of: Nausea History of Present Illness: LENA SCHULZ is a 31 year old male who is well-known to the hospitalist service from multiple admissions for DKA who presents with a one-day history of nausea and decreased p.o. intake. Patient reports that when he woke up this morning he felt nauseous but did not have any abdominal pain or diarrhea. He did vomit several times but has not vomited recently. He presented to the emergency room with a blood sugar of 1200 the patient does not have an anion gap. Patient is a bicarbonate of 21 that suggested that he does not have DKA but does have significant hyperglycemia. Patient denies any fevers or chills. He denies any cough. Denies any dysuria but does have some urinary frequency. Past Medical History Cardiac Medical History: Reports: Hypertension Denies: Congestive Heart Failure, DVT, Myocardial Infarction, Hyperlipidema, Pulmonary Embolism Pulmonary Medical History: Reports: Asthma - as child Denies: Chronic Obstructive Pulmonary Disease (COPD), Sleep Apnea Neurological Medical History: Reports: Migraine Denies: Seizures Endocrine Medical History: Reports: Diabetes Mellitus Type 1 Denies: Diabetes Mellitus Type 2, Hyperthyroidism, Hypothyroidism Renal/ Medical History: Reports: Chronic Kidney Disease Malignancy Medical History: Reports: None GI Medical History: Denies: Cirrhosis, Gastroesophageal Reflux Disease, Hepatitis Musculoskeltal Medical History: Denies: Arthritis Psychiatric Medical History: Reports: Depression Traumatic Medical History: Reports: None Hematology: Reports: None Infectious Medical History: Denies: Clostridium Difficile, Methicillin-Resistant Staph Aureus Past Surgical History Past Surgical History: Reports: Appendectomy, Other - [place] teeth extraction Social History Information Source: Patient Lives with: Family Smoking Status: Current Some Day Smoker Frequency of Alcohol Use: None Hx Recreational Drug Use: No Drugs: None Hx Prescription Drug Abuse: No - Advance Directive Resuscitation Status: Full Code Family History Family History: DM, Hypertension Parental Family History Reviewed: Yes Children Family History Reviewed: No Sibling(s) Family History Reviewed.: No Medication/Allergy Home Medications: Amlodipine Besylate [Norvasc 5 mg Tablet] 5 mg PO DAILY 02/09/17 Atenolol [Tenormin] 25 mg PO DAILY 02/09/17 Buspirone HCl [Buspar 15 mg Tablet] 15 mg PO Q8 02/09/17 Duloxetine HCl [Cymbalta] 60 mg PO DAILY 02/09/17 Gabapentin [Neurontin 300 mg Capsule] 300 mg PO Q6 02/09/17 Hydrochlorothiazide [Hydrodiuril 12.5 mg Capsule] 25 mg PO DAILY 02/09/17 Hydroxyzine Pamoate [Vistaril 50 mg Capsule] 50 mg PO Q8HP PRN 02/09/17 Insulin Aspart [Novolog Flexpen] 0 units SQ MEALS PRN MDD 45 UNITS 02/09/17 Insulin Detemir [Levemir Flextouch] 40 units SQ QHS 02/09/17 Oxycodone HCl 15 mg PO Q6 02/09/17 Quetiapine Fumarate [Seroquel 100 mg Tablet] 100 mg PO Q8 02/09/17 Nicotine [Nicoderm 21 mg/24 Hr Transderm Patch] 1 each TD DAILY patch.[id number] Allergies/Adverse Reactions: No Known Allergies Allergy (Verified 03/07/17 16:50) Review of Systems Constitutional: ABSENT: chills, fever(s), headache(s), weight gain, weight loss Eyes: ABSENT: visual disturbances Ears: ABSENT: hearing changes Cardiovascular: ABSENT: chest pain, dyspnea on exertion, edema, orthropnea, palpitations Respiratory: ABSENT: cough, hemoptysis Gastrointestinal: PRESENT: nausea, vomiting. ABSENT: abdominal pain, constipation, diarrhea, hematemesis, hematochezia Genitourinary: ABSENT: dysuria, hematuria Musculoskeletal: ABSENT: joint swelling Integumentary: ABSENT: rash, wounds Neurological: ABSENT: abnormal gait, abnormal speech, confusion, dizziness, focal weakness, syncope Psychiatric: ABSENT: anxiety, depression Endocrine: ABSENT: cold intolerance, heat intolerance, polydipsia, polyuria Hematologic/Lymphatic: ABSENT: easy bleeding, easy bruising Physical Exam Vital Signs: Temp Pulse Resp BP Pulse Ox 99 F 86 18 158/73 H 98 03/09/17 16:19 03/09/17 16:19 03/09/17 18:01 03/09/17 18:01 03/09/17 18:01 Intake & Output 03/08/17 03/09/17 03/10/17 06:59 06:59 06:59 Weight 90.718 kg General appearance: PRESENT: no acute distress, well-developed, well-nourished Head exam: PRESENT: atraumatic, normocephalic Eye exam: PRESENT: conjunctiva pink, EOMI, PERRLA. ABSENT: scleral icterus Ear exam: PRESENT: normal external ear exam Mouth exam: PRESENT: moist, tongue midline Neck exam: ABSENT: carotid bruit, JVD, lymphadenopathy, thyromegaly Respiratory exam: PRESENT: clear to auscultation juan ramon. ABSENT: rales, rhonchi, wheezes Cardiovascular exam: PRESENT: RRR. ABSENT: diastolic murmur, rubs, systolic murmur Pulses: PRESENT: normal dorsalis pedis pul GI/Abdominal exam: PRESENT: normal bowel sounds, soft. ABSENT: distended, guarding, mass, organolmegaly, rebound, tenderness Rectal exam: PRESENT: deferred Extremities exam: ABSENT: calf tenderness, clubbing, pedal edema Neurological exam: PRESENT: alert, awake, oriented to person, oriented to place , oriented to time, oriented to situation, CN II-XII grossly intact. ABSENT: motor sensory deficit Psychiatric exam: PRESENT: flat affect Skin exam: PRESENT: dry, intact, warm. ABSENT: cyanosis, rash Results Laboratory Results: 03/09/17 17:15 03/09/17 17:15 03/09/17 03/09/17 03/09/17 15:30 16:30 17:15 WBC 11.8 H RBC 4.57 Hgb 11.2 L Hct 37.9 MCV 83 D MCH 24.4 L MCHC 29.5 L RDW 17.0 H Plt Count 234 Seg Neutrophils % 82.3 H Lymphocytes % 8.9 L Monocytes % 7.8 Eosinophils % 0.3 Basophils % 0.7 Absolute Neutrophils 9.7 H Absolute Lymphocytes 1.1 Absolute Monocytes 0.9 Absolute Eosinophils 0.0 Absolute Basophils 0.1 Sodium Potassium Chloride Carbon Dioxide Anion Gap BUN Creatinine Est GFR ( Amer) Est GFR (Non-Af Amer) Glucose Lactic Acid Calcium Total Bilirubin AST ALT Alkaline Phosphatase Total Protein Albumin Lipase Urine Color COLORLESS COLORLESS Urine Appearance CLEAR CLEAR Urine pH 6.0 6.0 Ur Specific [place] 1.016 1.018 Urine Protein 30 H 30 H Urine Glucose (UA) >=500 H >=500 H Urine Ketones 20 H TRACE H Urine Blood SMALL H NEGATIVE Urine Nitrite NEGATIVE NEGATIVE Ur Leukocyte Esterase NEGATIVE NEGATIVE Ur Squamous Epith Cells RARE RARE 03/09/17 03/09/17 17:15 17:15 WBC RBC Hgb Hct MCV MCH MCHC RDW Plt Count Seg Neutrophils % Lymphocytes % Monocytes % Eosinophils % Basophils % Absolute Neutrophils Absolute Lymphocytes Absolute Monocytes Absolute Eosinophils Absolute Basophils Sodium 122.5 L Potassium 5.7 H Chloride 86 L Carbon Dioxide 21 L Anion Gap 16 BUN 25 H Creatinine 1.44 H Est GFR ( Amer) > 60 Est GFR (Non-Af Amer) 57 L Glucose 1209 H* Lactic Acid 2.3 H Calcium 8.6 Total Bilirubin 0.8 AST 59 ALT 44 Alkaline Phosphatase 166 H Total Protein 6.8 Albumin 3.7 Lipase 223.4 Urine Color Urine Appearance Urine pH Ur Specific [place] Urine Protein Urine Glucose (UA) Urine Ketones Urine Blood Urine Nitrite Ur Leukocyte Esterase Ur Squamous Epith Cells 03/09/17 03/09/17 17:15 17:15 Creatine Kinase 199 H CK-MB (CK-2) 1.35 Troponin I < 0.012 Impressions: Chest X-Ray 03/09/17 15:03 IMPRESSION: NO ACUTE RADIOGRAPHIC FINDING IN THE CHEST. Assessment & Plan - Diagnosis (1) Diabetic hyperosmolar non-ketotic state Is this a current diagnosis for this admission?: YesPlan: Patient has an elevated blood sugar but does not have an anion gap. We will continue the IV fluids aggressively and start back on his Levemir. Patient currently is on an insulin drip but we will DC that. (2) Hypertension Qualifiers: Hypertension type: essential hypertension Qualified Code(s): I10 - Essential (primary) hypertension Is this a current diagnosis for this admission?: YesPlan: Is on atenolol, Norvasc, hydrochlorothiazide as an outpatient (3) Opiate dependence, continuous Is this a current diagnosis for this admission?: YesPlan: Normally on oxycodone 15 mg every 6 hours. Will hold this as he has been very nauseous and restarted tomorrow if he does all right overnight. (4) ARF (acute renal failure) Qualifiers: Acute renal failure type: unspecified Qualified Code(s): N17.9 - Acute kidney failure, unspecified Is this a current diagnosis for this admission?: YesPlan: Stage II chronic renal failure with acute renal failure now. Most likely is prerenal and should correct with IV fluids. (5) Depression Qualifiers: Depression Type: unspecified Qualified Code(s): F32.9 - Major depressive disorder, single episode, unspecified Is this a current diagnosis for this admission?: YesPlan: Patient has been on Seroquel and Cymbalta. Patient also has taken BuSpar - Time Time Spent: 50 to 70 Minutes - Inpatient Certification Medical Necessity: Need For IV Fluids - Plan Summary Plan Summary: We will admit as an observation as I anticipate this require less than a 2 midnight hospital stay
[2017-03-09 19:51] LABS: VENOUS BLOOD BASE EXCESS 1.3 mmol/L; VENOUS BLOOD HCO3 25.4 mmol/L (20-32); VENOUS BLOOD PCO2 38.1 mmHg (35-63); VENOUS BLOOD PH 7.44 (7.30-7.42)
[2017-03-09] MEDS: INSULIN LISPRO 100 UNIT/ML 3 ML VIAL SUBCUT PRN ×2 (20:15→23:36)
[2017-03-09] MEDS: INSULIN GLARGINE,HUM.REC.ANLOG 1,000 UNIT/10 ML UNIT SUBCUT SCH (23:35)
[2017-03-09] MEDS: FAMOTIDINE 20 MG TABLET PO SCH (23:35)
[2017-03-10 00:58] LABS: ANION GAP 12 (5-19); BLOOD UREA NITROGEN 20 mg/dL (7-20); CALCIUM 9.5 mg/dL (8.4-10.2); CARBON DIOXIDE 26 mmol/L (22-30); CHLORIDE 101 mmol/L (98-107); CREATININE RESULT 1.39 mg/dL (0.52-1.25); GLUCOSE 276 mg/dL (75-110); SODIUM 138.5 mmol/L (137-145)
[2017-03-10 01:02] LABS: POTASSIUM 3.9 mmol/L (3.6-5.0)
[2017-03-10] MEDS ORDERED: GABAPENTIN 300 MG CAPSULE PO ONE (02:15)
[2017-03-10] MEDS ORDERED: BUSPIRONE HCL 10 MG TABLET PO ONE (02:15)
[2017-03-10] MEDS ORDERED: OXYCODONE HCL IR 5 MG TABLET PO ONE (02:15)
[2017-03-10] MEDS ORDERED: OXYCODONE HCL IR 5 MG TABLET PO SCH (06:00)
[2017-03-10] MEDS ORDERED: GABAPENTIN 300 MG CAPSULE PO SCH (06:00)
[2017-03-10] MEDS ORDERED: BUSPIRONE HCL 10 MG TABLET PO SCH (06:00)
[2017-03-10 06:06] LABS: ANION GAP 8 (5-19); BLOOD UREA NITROGEN 18 mg/dL (7-20); CALCIUM 8.9 mg/dL (8.4-10.2); CARBON DIOXIDE 29 mmol/L (22-30); CHLORIDE 101 mmol/L (98-107); CREATININE RESULT 1.28 mg/dL (0.52-1.25); GLUCOSE 162 mg/dL (75-110); SODIUM 138.2 mmol/L (137-145)
[2017-03-10 06:42] LABS: HEMATOCRIT 36.8 % (37.9-51.0); HEMOGLOBIN 11.7 g/dL (13.5-17.0); HGB HCT DIFFERENCE -1.7; MEAN CORPUSCULAR HEMOGLOBIN 24.1 pg (27.0-33.4); MEAN CORPUSCULAR HGB CONC 31.9 g/dL (32.0-36.0); RED BLOOD COUNT 4.87 10^6/uL (4.35-5.55); RED CELL DISTRIBUTION WIDTH 16.6 % (11.5-14.0); WHITE BLOOD COUNT 9.5 10^3/uL (4.0-10.5)
[2017-03-10 06:53] LABS: MEAN CORPUSCULAR VOLUME 76 fl (80-97)
[2017-03-10] MEDS ORDERED: HYDROXYZINE PAMOATE 50 MG CAPSULE PO PRN (07:25)
[2017-03-10] MEDS: GABAPENTIN 300 MG CAPSULE PO SCH ×3 (08:31→21:09)
[2017-03-10] MEDS: OXYCODONE HCL IR 5 MG TABLET PO SCH ×3 (08:31→21:09)
[2017-03-10] MEDS: HYDROCHLOROTHIAZIDE 25 MG TABLET PO SCH (09:07)
[2017-03-10] MEDS: NICOTINE 21 MG/24 HR PATCH.TD24 TD SCH (09:07)
[2017-03-10] MEDS: DULOXETINE HCL 30 MG CAPSULE.DR PO SCH (09:08)
[2017-03-10] MEDS: FAMOTIDINE 20 MG TABLET PO SCH ×2 (09:08→21:10)
[2017-03-10] MEDS: AMLODIPINE BESYLATE 5 MG TABLET PO SCH (09:08)
[2017-03-10] MEDS: BUSPIRONE HCL 10 MG TABLET PO SCH ×2 (09:09→17:43)
[2017-03-10] MEDS: ATENOLOL 50 MG TABLET PO SCH (09:09)
[2017-03-10] MEDS ORDERED: (PENDING PHARMACY ID) (Atenolol [Tenormin] 25 MG) PO SCH (10:00)
[2017-03-10] MEDS ORDERED: HYDROCHLOROTHIAZIDE 12.5 MG CAPSULE PO SCH (10:00)
[2017-03-10] MEDS ORDERED: INSULIN LISPRO 100 UNIT/ML 3 ML VIAL SUBCUT ONE (10:30)
[2017-03-10] MEDS: INSULIN LISPRO 100 UNIT/ML 3 ML VIAL SUBCUT PRN ×3 (11:24→22:32)
[2017-03-10] MEDS: INSULIN LISPRO 100 UNIT/ML 3 ML VIAL SUBCUT SCH ×2 (11:24→18:30)
--- NOTE | 2017-03-10 15:47 | PDOC PROGRESS REPORT ---
Subjective Progress Note for:: 03/10/17 Subjective:: Patient has had episodes of hypoglycemia and hyperglycemia today. Physical Exam Vital Signs: Temp Pulse Resp BP Pulse Ox 98.7 F 86 18 141/84 H 100 03/10/17 12:04 03/10/17 14:00 03/10/17 12:04 03/10/17 12:04 03/10/17 12:04 Intake & Output 03/09/17 03/10/17 03/11/17 06:59 06:59 06:59 Intake Total 400 237 Output Total 800 550 Balance -400 -313 Weight 90.3 kg General appearance: PRESENT: no acute distress Eye exam: PRESENT: conjunctiva pink. ABSENT: scleral icterus Mouth exam: PRESENT: moist, tongue midline Neck exam: ABSENT: JVD Respiratory exam: PRESENT: clear to auscultation juan ramon. ABSENT: rales, rhonchi, wheezes Cardiovascular exam: PRESENT: RRR. ABSENT: diastolic murmur, rubs, systolic murmur GI/Abdominal exam: PRESENT: normal bowel sounds, soft. ABSENT: distended, guarding, mass, organolmegaly, rebound, tenderness Extremities exam: ABSENT: calf tenderness, clubbing, pedal edema Neurological exam: PRESENT: alert, awake, oriented to person, oriented to place , oriented to time, oriented to situation, CN II-XII grossly intact. ABSENT: motor sensory deficit Psychiatric exam: PRESENT: appropriate affect Skin exam: PRESENT: dry, intact, warm. ABSENT: cyanosis, rash Results Laboratory Results: 03/10/17 05:28 03/10/17 05:28 03/09/17 03/10/17 03/10/17 19:45 00:20 05:28 WBC 9.5 RBC 4.87 Hgb 11.7 L Hct 36.8 L MCV 76 L D MCH 24.1 L MCHC 31.9 L RDW 16.6 H Plt Count 229 VBG pH 7.44 H VBG pCO2 38.1 VBG HCO3 25.4 VBG Base Excess 1.3 Sodium 138.5 Potassium 3.9 D Chloride 101 Carbon Dioxide 26 Anion Gap 12 BUN 20 Creatinine 1.39 H Est GFR ( Amer) > 60 Est GFR (Non-Af Amer) 59 L Glucose 276 H Calcium 9.5 03/10/17 05:28 WBC RBC Hgb Hct MCV MCH MCHC RDW Plt Count VBG pH VBG pCO2 VBG HCO3 VBG Base Excess Sodium 138.2 Potassium 4.0 Chloride 101 Carbon Dioxide 29 Anion Gap 8 BUN 18 Creatinine 1.28 H Est GFR ( Amer) > 60 Est GFR (Non-Af Amer) > 60 Glucose 162 H Calcium 8.9 Impressions: Chest X-Ray 03/09/17 15:03 IMPRESSION: NO ACUTE RADIOGRAPHIC FINDING IN THE CHEST. Assessment & Plan - Diagnosis (1) Diabetic hyperosmolar non-ketotic state Is this a current diagnosis for this admission?: YesPlan: Patient has an elevated blood sugar but does not have an anion gap. We will continue the IV fluids aggressively and start back on his Levemir. (2) Hypertension Qualifiers: Hypertension type: essential hypertension Qualified Code(s): I10 - Essential (primary) hypertension Is this a current diagnosis for this admission?: YesPlan: Is on atenolol, Norvasc, hydrochlorothiazide as an outpatient (3) Opiate dependence, continuous Is this a current diagnosis for this admission?: YesPlan: Normally on oxycodone 15 mg every 6 hours. (4) ARF (acute renal failure) Qualifiers: Acute renal failure type: unspecified Qualified Code(s): N17.9 - Acute kidney failure, unspecified Is this a current diagnosis for this admission?: YesPlan: Stage II chronic renal failure with acute renal failure now. Improving. Most likely is prerenal and should correct with IV fluids. (5) Depression Qualifiers: Depression Type: unspecified Qualified Code(s): F32.9 - Major depressive disorder, single episode, unspecified Is this a current diagnosis for this admission?: YesPlan: Patient has been on Seroquel and Cymbalta. Patient also has taken BuSpar - Time Time Spent with patient: 25-34 minutes - Inpatient Certification Medical Necessity: Need Close Monitoring Due to Risk of Patient Decompensation, Need For IV Fluids
[2017-03-10] MEDS: NORMAL SALINE 1000 ML 1,000 ML IV PRN (21:12)
[2017-03-10] MEDS: INSULIN GLARGINE,HUM.REC.ANLOG 1,000 UNIT/10 ML UNIT SUBCUT SCH (22:32)
[2017-03-11] MEDS: GABAPENTIN 300 MG CAPSULE PO SCH ×3 (02:54→14:12)
[2017-03-11] MEDS: OXYCODONE HCL IR 5 MG TABLET PO SCH ×3 (02:54→14:12)
[2017-03-11] MEDS: BUSPIRONE HCL 10 MG TABLET PO SCH ×2 (02:54→11:56)
[2017-03-11] MEDS: NORMAL SALINE 1000 ML 1,000 ML IV PRN (04:14)
[2017-03-11 05:07] LABS: ABSOLUTE BASOPHILS # (AUTO) 0.1 10^3/uL (0.0-0.2); ABSOLUTE EOSINOPHILS # (AUTO) 0.2 10^3/uL (0.0-0.6); ABSOLUTE LYMPHOCYTES (AUTO) 2.9 10^3/uL (0.5-4.7); ABSOLUTE MONOCYTES (AUTO) 0.7 10^3/uL (0.1-1.4); ABSOLUTE NEUT (AUTO) 4.5 10^3/uL (1.7-8.2); BASOPHILS % (AUTO) 1.3 % (0-2); EOSINOPHILS % (AUTO) 2.5 % (0-6); HEMATOCRIT 35.1 % (37.9-51.0); HEMOGLOBIN 11.1 g/dL (13.5-17.0); HGB HCT DIFFERENCE -1.8; LYMPHOCYTES % (AUTO) 34.4 % (13-45); MEAN CORPUSCULAR HEMOGLOBIN 24.5 pg (27.0-33.4); MEAN CORPUSCULAR HGB CONC 31.7 g/dL (32.0-36.0); MEAN CORPUSCULAR VOLUME 77 fl (80-97); MONOCYTES % (AUTO) 8.7 % (3-13); RED BLOOD COUNT 4.55 10^6/uL (4.35-5.55); RED CELL DISTRIBUTION WIDTH 16.1 % (11.5-14.0); SEGMENTED NEUTROPHILS % (AUTO) 53.1 % (42-78); WHITE BLOOD COUNT 8.6 10^3/uL (4.0-10.5)
[2017-03-11 05:28] LABS: ANION GAP 7 (5-19); BLOOD UREA NITROGEN 13 mg/dL (7-20); CALCIUM 9.1 mg/dL (8.4-10.2); CARBON DIOXIDE 30 mmol/L (22-30); CHLORIDE 103 mmol/L (98-107); GLUCOSE 71 mg/dL (75-110); SODIUM 140.2 mmol/L (137-145)
[2017-03-11 05:29] LABS: POTASSIUM 3.8 mmol/L (3.6-5.0)
[2017-03-11] MEDS: INSULIN LISPRO 100 UNIT/ML 3 ML VIAL SUBCUT SCH ×3 (08:23→16:10)
[2017-03-11] MEDS: FAMOTIDINE 20 MG TABLET PO SCH (10:59)
[2017-03-11] MEDS: ATENOLOL 50 MG TABLET PO SCH (10:59)
[2017-03-11] MEDS: HYDROCHLOROTHIAZIDE 25 MG TABLET PO SCH (10:59)
[2017-03-11] MEDS: DULOXETINE HCL 30 MG CAPSULE.DR PO SCH (10:59)
[2017-03-11] MEDS: NICOTINE 21 MG/24 HR PATCH.TD24 TD SCH (11:00)
[2017-03-11] MEDS: AMLODIPINE BESYLATE 5 MG TABLET PO SCH (11:00)
--- NOTE | 2017-03-11 11:08 | PDOC DISCHARGE SUMMARY ---
General - Admit/Disc Date/PCP Admission Date/Primary Care Provider: 03/10/17 15:44 JARON ANN MD Discharge Date: 03/11/17 - Discharge Diagnosis (1) Diabetic hyperosmolar non-ketotic state Is this a current diagnosis for this admission?: YesSummary: Patient was not in DKA. He was given IV fluids and continue with insulin and has had normalization of his blood sugars. Because of his wide swings in blood sugars his hydrochlorothiazide has been stopped as this may be contributing to some insulin resistance. (2) Hypertension Is this a current diagnosis for this admission?: Yes (3) Opiate dependence, continuous Is this a current diagnosis for this admission?: Yes (4) ARF (acute renal failure) Is this a current diagnosis for this admission?: YesSummary: Resolved with IV fluids. (5) Depression Is this a current diagnosis for this admission?: Yes - Additional Information Resuscitation Status: Full Code Discharge Diet: Diabetic Discharge Activity: Activity As Tolerated Home Medications: Oxycodone HCl 15 mg PO Q6HP PRN 03/10/17 Amlodipine Besylate [Norvasc 5 mg Tablet] 5 mg PO DAILY tablet 03/11/17 Atenolol [Tenormin 50 mg Tablet] 25 mg PO DAILY #30 tablet 03/11/17 Buspirone HCl [Buspar 10 mg Tablet] 15 mg PO Q8H #90 tablet 03/11/17 Duloxetine HCl [Cymbalta] 60 mg PO DAILY PRN #30 capsule. 03/11/17 Gabapentin [Neurontin 300 mg Capsule] 300 mg PO Q6A #120 capsule 03/11/17 Hydroxyzine Pamoate [Vistaril 50 mg Capsule] 50 mg PO Q8HP PRN #90 capsule 03/11 Insulin Glargine,Hum.rec.anlog [Lantus Insulin 100 Unit/1 ml 10 ml] 30 unit SUBCUT QHS #1 vial 03/11/17 Nicotine [Nicoderm 21 mg/24 Hr Transderm Patch] 1 each TD DAILY patch.td24 History of Present Illness History of Present Illness: LENA SCHULZ is a 31 year old male who is well-known to the hospitalist service from multiple admissions for DKA who presents with a one-day history of nausea and decreased p.o. intake. Patient reports that when he woke up this morning he felt nauseous but did not have any abdominal pain or diarrhea. He did vomit several times but has not vomited recently. He presented to the emergency room with a blood sugar of 1200 the patient does not have an anion gap. Patient is a bicarbonate of 21 that suggested that he does not have DKA but does have significant hyperglycemia. Patient denies any fevers or chills. He denies any cough. Denies any dysuria but does have some urinary frequency. Hospital Course Hospital Course: 31-year-old male who presented with hyperglycemia with blood sugars over thousand. He did not have an anion gap or significant acidosis. Patient was prerenal and dehydrated with acute renal failure. He was given IV fluids and the insulin drip that he was started in the emergency room was stopped and he was put back on Levemir. Patient had improvement in his blood sugars however they have fluctuated widely. Patient had been on hydrochlorothiazide and this has been stopped as it may be contributing to some insulin resistance. Patient' s blood sugars under control he is tolerating p.o. and the decision was made to discharge him to home. Physical Exam Vital Signs: Temp Pulse Resp BP Pulse Ox 98.2 F 75 16 144/81 H 99 03/11/17 10:46 03/11/17 10:46 03/11/17 10:46 03/11/17 10:46 03/11/17 10:46 Intake & Output 03/10/17 03/11/17 03/12/17 06:59 06:59 06:59 Intake Total 2576 Output Total 2100 Balance 476 Weight 90.5 kg General appearance: PRESENT: no acute distress Eye exam: PRESENT: conjunctiva pink. ABSENT: scleral icterus Mouth exam: PRESENT: moist, tongue midline Neck exam: ABSENT: JVD Respiratory exam: PRESENT: clear to auscultation juan ramon. ABSENT: rales, rhonchi, wheezes Cardiovascular exam: PRESENT: RRR. ABSENT: diastolic murmur, rubs, systolic murmur GI/Abdominal exam: PRESENT: normal bowel sounds, soft. ABSENT: distended, guarding, mass, organolmegaly, rebound, tenderness Extremities exam: ABSENT: calf tenderness, clubbing, pedal edema Neurological exam: PRESENT: alert, awake, oriented to person, oriented to place , oriented to time, oriented to situation, CN II-XII grossly intact. ABSENT: motor sensory deficit Psychiatric exam: PRESENT: appropriate affect Skin exam: PRESENT: dry, intact, warm. ABSENT: cyanosis, rash Results Laboratory Results: 03/11/17 04:22 03/11/17 04:22 03/11/17 03/11/17 04:22 04:22 WBC 8.6 RBC 4.55 Hgb 11.1 L Hct 35.1 L MCV 77 L MCH 24.5 L MCHC 31.7 L RDW 16.1 H Plt Count 270 Seg Neutrophils % 53.1 Lymphocytes % 34.4 Monocytes % 8.7 Eosinophils % 2.5 Basophils % 1.3 Absolute Neutrophils 4.5 Absolute Lymphocytes 2.9 Absolute Monocytes 0.7 Absolute Eosinophils 0.2 Absolute Basophils 0.1 Sodium 140.2 Potassium 3.8 Chloride 103 Carbon Dioxide 30 Anion Gap 7 BUN 13 Creatinine 1.10 Est GFR ( Amer) > 60 Est GFR (Non-Af Amer) > 60 Glucose 71 L Calcium 9.1 Impressions: Chest X-Ray 03/09/17 15:03 IMPRESSION: NO ACUTE RADIOGRAPHIC FINDING IN THE CHEST. Qualifiers PATEINT BEING DISCHARGED WITH ANY OF THE FOLLOWING DIAGNOSIS?: No Plan Discharge Plan: Discharged home in stable condition. Will follow with primary care doctor in 2 weeks. Time Spent: Less than 30 Minutes
[2017-03-11 12:31] VITALS: BP 150/97
== END 2017-03-11 16:22 | disposition home or self-care (01) | DRG 638 ==
LOC: ER 14:30 → EH 18:36 → 3W 21:53 → OBSVTOIN 03-10 15:44
PROVIDERS: ADMIT Internal Medicine; ATTEND Internal Medicine
DX: E10.65 Type 1 diabetes mellitus with hyperglycemia (principal); N17.9 Acute kidney failure, unspecified; E10.22 Type 1 diabetes mellitus with diabetic chronic kidney disease; N18.2 Chronic kidney disease, stage 2 (mild); E86.0 Dehydration; F32.9 Major depressive disorder, single episode, unspecified; T50.2X5A Adverse effect of carbonic-anhydrase inhibitors, benzothiadiazides and other diuretics, initial encounter; I11.0 Hypertensive heart disease with heart failure; E88.81 Metabolic syndrome and other insulin resistance; I12.9 Hypertensive chronic kidney disease with stage 1 through stage 4 chronic kidney disease, or unspecified chronic kidney disease; Z79.4 Long term (current) use of insulin; Z90.49 Acquired absence of other specified parts of digestive tract; Z79.891 Long term (current) use of opiate analgesic
CPT/HCPCS: 36415; 71010; 80048; 80053; 81001; 82550; 82553; 82803; 82962; 83605; 83690; 84484; 85025; 85027; 93005; 93010; 96374; 99285; G0378; J1815; J2405; J3490; J7030

== ENCOUNTER 2017-03-13 13:12 | Inpatient (IN) | payer MEDICAID, OTHER ==
--- NOTE | 2017-03-13 14:15 | ER Document Report ---
ED Medical Screen (RME) - General Chief Complaint: High Blood Sugar Stated Complaint: HIGH BLOOD SUGAR Time Seen by Provider: 03/13/17 14:12 Notes: There is a 31-year-old male, past medical history of poorly controlled type I diabetic, presents with nausea, vomiting and elevated blood sugar over 600 at home. He took 15 units of Humalog prior to arrival. He said that he has not missed any doses of his insulin. PE: Tachycardia, soft/NT abdomen I have greeted and performed a rapid initial assessment of this patient. A comprehensive ED assessment and evaluation of the patient, analysis of test results and completion of the medical decision making process will be conducted by additional ED providers. TRAVEL OUTSIDE OF THE [place] IN LAST 30 DAYS: No - Related Data Allergies/Adverse Reactions: No Known Allergies Allergy (Verified 03/07/17 16:50) Past Medical History - Social History Family history: Reviewed & Not Pertinent - Past Medical History Cardiac Medical History: Reports: Hx Hypertension Denies: Hx Congestive Heart Failure, Hx DVT, Hx Heart Attack, Hx Hypercholesterolemia, Hx Pulmonary Embolism Pulmonary Medical History: Reports: Hx Asthma - as child Denies: Hx COPD, Hx Sleep Apnea Neurological Medical History: Reports: Hx Migraine. Denies: Hx Seizures Endocrine Medical History: Reports: Hx Diabetes Mellitus Type 1. Denies: Hx Diabetes Mellitus Type 2, Hx Hyperthyroidism, Hx Hypothyroidism Renal/ Medical History: Denies: Hx Peritoneal Dialysis GI Medical History: Denies: Hx Cirrhosis, Hx Gastroesophageal Reflux Disease, Hx Hepatitis Musculoskeltal Medical History: Denies Hx Arthritis Psychiatric Medical History: Reports: Hx Anxiety, Hx Depression, Hx Schizophrenia Infectious Medical History: Denies: Hx C-Diff, Hx Hepatitis, Hx MRSA Past Surgical History: Reports: Hx Appendectomy, Hx Oral Surgery - wisdom teeth , Other - [place] teeth extraction - Immunizations Hx Diphtheria, Pertussis, Tetanus Vaccination: Yes Physical Exam - Vital signs Vitals: Temp Pulse Resp BP Pulse Ox 98.0 F 106 H 19 148/91 H 97 03/13/17 13:16 03/13/17 13:16 03/13/17 13:16 03/13/17 13:16 03/13/17 13:16 Course - Vital Signs Vital signs: Temp Pulse Resp BP Pulse Ox 98.0 F 106 H 19 148/91 H 97 03/13/17 13:16 03/13/17 13:16 03/13/17 13:16 03/13/17 13:16 03/13/17 13:16
[2017-03-13] MEDS: NORMAL SALINE 1000 ML 1,000 ML IV PRN ×2 (14:46→15:35)
--- NOTE | 2017-03-13 14:54 | ER Document Report ---
ED Blood Sugar Problem - General Chief Complaint: High Blood Sugar Stated Complaint: HIGH BLOOD SUGAR Time Seen by Provider: 03/13/17 14:12 Notes: Patient is here because he is an insulin-dependent diabetic, well-known to us, and his blood sugar is high. He says that he noted it to be high when he checked it this morning at home and it was 386. He has not been ill recently. Has been taking his insulin as prescribed. Says he is vomited about 3 times, most recent with a little bit of blood present. In triage, his blood sugar was over 600. Appropriate labs have been ordered and an IV has been started to bolus the patient. Denies any UTI symptoms. Denies any fever. TRAVEL OUTSIDE OF THE [place] IN LAST 30 DAYS: No - Related Data Allergies/Adverse Reactions: No Known Allergies Allergy (Verified 03/07/17 16:50) Past Medical History - Social History Smoking Status: Current Every Day Smoker Cigarette use (# per day): Yes Lives with: Homeless Family History: Reviewed & Not Pertinent, DM, Hypertension Patient has suicidal ideation: No Patient has homicidal ideation: No - Past Medical History Cardiac Medical History: Reports: Hx Hypertension Pulmonary Medical History: Reports: Hx Asthma - as child Neurological Medical History: Reports: Hx Migraine Endocrine Medical History: Reports: Hx Diabetes Mellitus Type 1 Psychiatric Medical History: Reports: Hx Anxiety, Hx Depression, Hx Schizophrenia Past Surgical History: Reports: Hx Appendectomy, Hx Oral Surgery - wisdom teeth , Other - [place] teeth extraction - Immunizations Hx Diphtheria, Pertussis, Tetanus Vaccination: Yes Hx Pneumococcal Vaccination: 09/16/00 Review of Systems - Review of Systems Notes: REVIEW OF SYSTEMS: CONSTITUTIONAL : Denies fever. Feels weak and lightheaded. EENT: Denies eye, ear, nose or mouth or throat pain or other symptoms. CARDIOVASCULAR: Denies chest pain. RESPIRATORY: Denies cough, chest congestion, or shortness of breath. GASTROINTESTINAL: He is also been vomiting about 3 times, the most recent with a "little bit of blood".. Diarrhea. GENITOURINARY: Denies difficulty or painful urinating, urinary frequency, blood in urine. MUSCULOSKELETAL: Denies back or neck pain. Denies joint pain or swelling. SKIN: Denies rash or skin lesions. NEUROLOGICAL: Denies LOC or altered mental status. Denies headache. Denies sensory loss or motor deficits. ALL OTHER SYSTEMS REVIEWED AND NEGATIVE. Physical Exam - Vital signs Vitals: Temp Pulse Resp BP Pulse Ox 98.0 F 106 H 19 148/91 H 97 03/13/17 13:16 03/13/17 13:16 03/13/17 13:16 03/13/17 13:16 03/13/17 13:16 Interpretation: Hypertensive, Tachycardic - Notes Notes: PHYSICAL EXAMINATION: GENERAL: Well-appearing, in no acute distress. Vital signs are all essentially normal. Mild tachycardia. HEAD: Atraumatic, normocephalic. ENT: oropharynx clear without exudates. Moist mucous membranes. NECK: Normal range of motion, supple. LUNGS: Breath sounds clear and equal bilaterally. HEART: Regular rate and rhythm without murmurs. ABDOMEN: Soft, nontender. No guarding or rebound. BACK: No tenderness throughout entire back. EXTREMITIES: Normal range of motion without pain. NEUROLOGICAL: Normal speech, normal gait. Normal sensory, motor, and reflex exams. Awake, alert, and oriented x3. Cranial nerves normal. PSYCH: Normal mood, normal affect. SKIN: Warm, dry, no rashes. Course - Re-evaluation Re-evalutation: 03/13/17 16:48 Patient's blood sugars about 600. He does not have laboratory evidence of DKA. His bicarb is 29. Has received 2 L of saline bolus. Spoke with hospitalist on-call, Dr. Sweeney, who will see the patient to determine if he needs to be admitted for further inpatient care. - Vital Signs Vital signs: Temp Pulse Resp BP Pulse Ox 97.9 F 66 18 177/91 H 97 03/13/17 17:00 03/13/17 17:00 03/13/17 17:00 03/13/17 17:00 03/13/17 17:00 - Laboratory Result Diagrams: 03/13/17 15:39 03/13/17 15:39 Laboratory results interpreted by me: 03/13/17 03/13/17 03/13/17 15:10 15:39 15:39 Hgb 11.4 L Hct 35.3 L MCV 78 L MCH 25.1 L RDW 16.4 H Seg Neutrophils % 79.1 H Lymphocytes % 12.6 L Sodium 132.6 L Chloride 95 L Creatinine 1.29 H Glucose 608 H* POC Glucose AST 13 L Alkaline Phosphatase 136 H Albumin 3.4 L Urine Protein 100 H Urine Glucose (UA) >=500 H Urine Ketones TRACE H 03/13/17 16:56 Hgb Hct MCV MCH RDW Seg Neutrophils % Lymphocytes % Sodium Chloride Creatinine Glucose POC Glucose 543 H* AST Alkaline Phosphatase Albumin Urine Protein Urine Glucose (UA) Urine Ketones
[2017-03-13 15:29] LABS: APPEARANCE,URINE CLEAR; BILIRUBIN,URINE NEGATIVE (NEGATIVE); GLUCOSE, URINE >=500 mg/dL (NEGATIVE); KETONES,URINE TRACE mg/dL (NEGATIVE); LEUKOCYTE ESTERASE,URINE NEGATIVE (NEGATIVE); NITRITE,URINE NEGATIVE (NEGATIVE); PROTEIN,URINE 100 mg/dL (NEGATIVE); URINE SPECIFIC GRAVITY 1.022; UROBILINOGEN,URINE NEGATIVE mg/dL (<2.0)
[2017-03-13 15:47] LABS: ABSOLUTE BASOPHILS # (AUTO) 0.1 10^3/uL (0.0-0.2); ABSOLUTE EOSINOPHILS # (AUTO) 0.1 10^3/uL (0.0-0.6); ABSOLUTE LYMPHOCYTES (AUTO) 1.1 10^3/uL (0.5-4.7); ABSOLUTE MONOCYTES (AUTO) 0.6 10^3/uL (0.1-1.4); BASOPHILS % (AUTO) 1.2 % (0-2); EOSINOPHILS % (AUTO) 0.6 % (0-6); HEMATOCRIT 35.3 % (37.9-51.0); HEMOGLOBIN 11.4 g/dL (13.5-17.0); HGB HCT DIFFERENCE -1.1; LYMPHOCYTES % (AUTO) 12.6 % (13-45); MEAN CORPUSCULAR HEMOGLOBIN 25.1 pg (27.0-33.4); MEAN CORPUSCULAR HGB CONC 32.4 g/dL (32.0-36.0); MEAN CORPUSCULAR VOLUME 78 fl (80-97); MONOCYTES % (AUTO) 6.5 % (3-13); RED BLOOD COUNT 4.55 10^6/uL (4.35-5.55); RED CELL DISTRIBUTION WIDTH 16.4 % (11.5-14.0); SEGMENTED NEUTROPHILS % (AUTO) 79.1 % (42-78); WHITE BLOOD COUNT 8.9 10^3/uL (4.0-10.5)
[2017-03-13 15:48] LABS: VENOUS BLOOD HCO3 29.9 mmol/L (20-32); VENOUS BLOOD PCO2 50.6 mmHg (35-63); VENOUS BLOOD PH 7.39 (7.30-7.42)
[2017-03-13 16:00] LABS: ALANINE AMINOTRANSFERASE 31 U/L (21-72); ALBUMIN 3.4 g/dL (3.5-5.0); ALKALINE PHOSPHATASE 136 U/L (38-126); ANION GAP 12 (5-19); ASPARTATE AMINO TRANSFERASE 13 U/L (17-59); BILIRUBIN,DIRECT 0.3 mg/dL (0.0-0.4); BILIRUBIN,TOTAL 0.5 mg/dL (0.2-1.3); BLOOD UREA NITROGEN 18 mg/dL (7-20); CALCIUM 8.7 mg/dL (8.4-10.2); CARBON DIOXIDE 26 mmol/L (22-30); CHLORIDE 95 mmol/L (98-107); CREATININE RESULT 1.29 mg/dL (0.52-1.25); LIPASE 130.6 U/L (23-300); POTASSIUM 4.6 mmol/L (3.6-5.0); SODIUM 132.6 mmol/L (137-145); TOTAL PROTEIN 6.4 g/dL (6.3-8.2)
[2017-03-13 16:08] LABS: GLUCOSE 608 mg/dL (75-110)
[2017-03-13] MEDS ORDERED: INSULIN REG, HUMAN 100 UNIT/ML 3 ML VIAL (PYX) SUBCUT ONE (16:46)
[2017-03-13] MEDS ORDERED: NORMAL SALINE 1000 ML 1,000 ML IV PRN (16:49)
[2017-03-13] MEDS ORDERED: DEXTROSE 50%-WATER 25 GM/50 ML DISP.SYRIN IV PRN ×2 (16:49)
[2017-03-13] MEDS ORDERED: DEXTROSE 40% GEL 15 GM TUBE PO PRN ×2 (16:49)
[2017-03-13] MEDS ORDERED: GLUCAGON,HUMAN RECOMB 1 MG INJ IM PRN (16:49)
[2017-03-13] MEDS ORDERED: ONDANSETRON HCL INJ/PF 4 MG/2 ML SDV IV PRN (16:51)
[2017-03-13] MEDS ORDERED: ACETAMINOPHEN 325 MG TABLET PO PRN (16:51)
--- NOTE | 2017-03-13 17:29 | PDOC H&P ---
History of Present Illness Patient complains of: Nausea and vomiting History of Present Illness: LENA SCHULZ is a 31 year old male with insulin-dependent diabetes mellitus and frequent readmissions for hyperglycemia and DKA presents with 1 day of nausea and vomiting. Patient claims to be compliant with his insulin regimen however pharmacy records indicate that the only prescriptions he feels are for oxycodone. He is supposed to also be on blood pressure medicine but his last refill for Norvasc was in November of this year. Past Medical History Cardiac Medical History: Reports: Hypertension Denies: Congestive Heart Failure, DVT, Myocardial Infarction, Hyperlipidema, Pulmonary Embolism Pulmonary Medical History: Reports: Asthma - as child Denies: Chronic Obstructive Pulmonary Disease (COPD), Sleep Apnea Neurological Medical History: Reports: Migraine Denies: Seizures Endocrine Medical History: Reports: Diabetes Mellitus Type 1 Denies: Diabetes Mellitus Type 2, Hyperthyroidism, Hypothyroidism GI Medical History: Denies: Cirrhosis, Gastroesophageal Reflux Disease, Hepatitis Musculoskeltal Medical History: Denies: Arthritis Psychiatric Medical History: Reports: Depression Infectious Medical History: Denies: Clostridium Difficile, Methicillin-Resistant Staph Aureus Past Surgical History Past Surgical History: Reports: Appendectomy, Other - [place] teeth extraction Social History Information Source: Patient Lives with: Spouse/Significant other, Homeless Smoking Status: Current Every Day Smoker Frequency of Alcohol Use: None Hx Recreational Drug Use: No Drugs: None Hx Prescription Drug Abuse: No - Advance Directive Resuscitation Status: Full Code Family History Family History: DM, Hypertension Parental Family History Reviewed: Yes Children Family History Reviewed: Yes Sibling(s) Family History Reviewed.: Yes Medication/Allergy Home Medications: Oxycodone HCl 15 mg PO Q6HP PRN 03/10/17 Amlodipine Besylate [Norvasc 5 mg Tablet] 5 mg PO DAILY tablet 03/11/17 Atenolol [Tenormin 50 mg Tablet] 25 mg PO DAILY #30 tablet 03/11/17 Buspirone HCl [Buspar 10 mg Tablet] 15 mg PO Q8H #90 tablet 03/11/17 Duloxetine HCl [Cymbalta] 60 mg PO DAILY PRN #30 capsule. 03/11/17 Gabapentin [Neurontin 300 mg Capsule] 300 mg PO Q6A #120 capsule 03/11/17 Hydroxyzine Pamoate [Vistaril 50 mg Capsule] 50 mg PO Q8HP PRN #90 capsule 03/11 Insulin Glargine,Hum.rec.anlog [Lantus Insulin 100 Unit/1 ml 10 ml] 30 unit SUBCUT QHS #1 vial 03/11/17 Nicotine [Nicoderm 21 mg/24 Hr Transderm Patch] 1 each TD DAILY patch.td24 Allergies/Adverse Reactions: No Known Allergies Allergy (Verified 03/07/17 16:50) Review of Systems Constitutional: PRESENT: fatigue. ABSENT: chills, fever(s), headache(s), weight gain, weight loss Eyes: ABSENT: visual disturbances Ears: ABSENT: hearing changes Cardiovascular: ABSENT: chest pain, dyspnea on exertion, edema, orthropnea, palpitations Respiratory: ABSENT: cough, hemoptysis Gastrointestinal: PRESENT: nausea, vomiting. ABSENT: abdominal pain, constipation, diarrhea, hematemesis, hematochezia Genitourinary: ABSENT: dysuria, hematuria Musculoskeletal: ABSENT: joint swelling Integumentary: ABSENT: rash, wounds Neurological: ABSENT: abnormal gait, abnormal speech, confusion, dizziness, focal weakness, syncope Psychiatric: ABSENT: anxiety, depression, homidical ideation, suicidal ideation Endocrine: ABSENT: cold intolerance, heat intolerance, polydipsia, polyuria Hematologic/Lymphatic: ABSENT: easy bleeding, easy bruising Physical Exam Vital Signs: Temp Pulse Resp BP Pulse Ox 97.9 F 66 18 177/91 H 97 03/13/17 17:00 03/13/17 17:00 03/13/17 17:00 03/13/17 17:00 03/13/17 17:00 Intake & Output 03/12/17 03/13/17 03/14/17 06:59 06:59 06:59 Weight 92 kg PHYSICAL EXAM: GENERAL: Appears well, no acute distress HEENT: Normocephalic, no scleral icterus, conjunctiva clear, EOEM intact, PERRLA , moist mucous membranes NECK: trachea midline, no thyromegally RESPIRATORY: Clear to auscultation, no wheezes/rhonchi CARDIAC: Regular rate and rhythm, no murmur/inés/rub ABDOMEN: Soft, no distension, mild left lower quadrant tenderness noted, no guarding, normal bowel sounds, negative Tran sign RECTAL: deferred : deferred EXTREMITIES: No edema, cyanosis, clubbing MUSCULOSKELETAL: No joint swelling or deformity VASCULAR: normal peripheral pulses NEUROLOGIC: Alert, oriented to person/place/time, normal speech, cranial nerves grossly intact, 5/5 strength in all extremities, tactile sensation intact in all extremities SKIN: No rash, no wounds, no worrisome skin lesions PSYCHIATRIC: Normal mood, normal affect Results Laboratory Results: 03/13/17 15:39 03/13/17 15:39 03/13/17 03/13/17 03/13/17 15:10 15:39 15:39 WBC 8.9 RBC 4.55 Hgb 11.4 L Hct 35.3 L MCV 78 L MCH 25.1 L MCHC 32.4 RDW 16.4 H Plt Count 248 Seg Neutrophils % 79.1 H Lymphocytes % 12.6 L Monocytes % 6.5 Eosinophils % 0.6 Basophils % 1.2 Absolute Neutrophils 7.0 Absolute Lymphocytes 1.1 Absolute Monocytes 0.6 Absolute Eosinophils 0.1 Absolute Basophils 0.1 VBG pH VBG pCO2 VBG HCO3 VBG Base Excess Sodium 132.6 L Potassium 4.6 Chloride 95 L Carbon Dioxide 26 Anion Gap 12 BUN 18 Creatinine 1.29 H Est GFR ( Amer) > 60 Est GFR (Non-Af Amer) > 60 Glucose 608 H* Calcium 8.7 Total Bilirubin 0.5 AST 13 L ALT 31 Alkaline Phosphatase 136 H Total Protein 6.4 Albumin 3.4 L Lipase 130.6 Urine Color COLORLESS Urine Appearance CLEAR Urine pH 6.0 Ur Specific [place] 1.022 Urine Protein 100 H Urine Glucose (UA) >=500 H Urine Ketones TRACE H Urine Blood NEGATIVE Urine Nitrite NEGATIVE Ur Leukocyte Esterase NEGATIVE Urine WBC (Auto) 0 Urine RBC (Auto) 0 03/13/17 15:39 WBC RBC Hgb Hct MCV MCH MCHC RDW Plt Count Seg Neutrophils % Lymphocytes % Monocytes % Eosinophils % Basophils % Absolute Neutrophils Absolute Lymphocytes Absolute Monocytes Absolute Eosinophils Absolute Basophils VBG pH 7.39 VBG pCO2 50.6 VBG HCO3 29.9 VBG Base Excess 4.0 Sodium Potassium Chloride Carbon Dioxide Anion Gap BUN Creatinine Est GFR ( Amer) Est GFR (Non-Af Amer) Glucose Calcium Total Bilirubin AST ALT Alkaline Phosphatase Total Protein Albumin Lipase Urine Color Urine Appearance Urine pH Ur Specific [place] Urine Protein Urine Glucose (UA) Urine Ketones Urine Blood Urine Nitrite Ur Leukocyte Esterase Urine WBC (Auto) Urine RBC (Auto) Assessment & Plan - Diagnosis (1) Hyperglycemia Is this a current diagnosis for this admission?: YesPlan: Patient appears to be noncompliant with insulin regimen historically. I would like to pharmacy to verify if patient is actually having medications refilled. Admit on insulin drip protocol. (2) Nausea and vomiting Is this a current diagnosis for this admission?: YesPlan: Likely secondary to hyperglycemic hyperosmolar state. Check CT abd/pelvis due to LLQ tenderness. (3) Hypertension Qualifiers: Hypertension type: essential hypertension Qualified Code(s): I10 - Essential (primary) hypertension Is this a current diagnosis for this admission?: YesPlan: [place]. - Time Time Spent: Greater than 70 Minutes
--- NOTE | 2017-03-13 17:34 | RADIOLOGY REPORT (SQ) ---
EXAM DESCRIPTION: CHEST SINGLE VIEW COMPLETED DATE/TIME: 03/13/2017 5:23 pm REASON FOR STUDY: DKA, fevers COMPARISON: 03/09/2017 EXAM PARAMETERS: NUMBER OF VIEWS: One view. TECHNIQUE: Single frontal radiographic view of the chest acquired. RADIATION DOSE: NA LIMITATIONS: None. FINDINGS: LUNGS AND PLEURA: No opacities, masses or pneumothorax. No pleural effusion. MEDIASTINUM AND HILAR STRUCTURES: No masses. Contour normal. HEART AND VASCULAR STRUCTURES: Heart normal in size. Normal vasculature. BONES: No acute findings. HARDWARE: EKG leads overlie the chest. OTHER: No other significant finding. IMPRESSION: NO ACUTE RADIOGRAPHIC FINDING IN THE CHEST. TECHNICAL DOCUMENTATION: JOB ID: [id number]
[2017-03-13] MEDS ORDERED: ACETAMINOPHEN 325 MG TABLET ONE (17:55)
[2017-03-13] MEDS ORDERED: NORMAL SALINE 100 ML with INSULIN REGULAR, HUMAN 100 UNIT IV PRN ×2 (18:30)
[2017-03-13 20:19] LABS: ANION GAP 10 (5-19); BLOOD UREA NITROGEN 15 mg/dL (7-20); CALCIUM 9.1 mg/dL (8.4-10.2); CARBON DIOXIDE 29 mmol/L (22-30); CHLORIDE 100 mmol/L (98-107); CREATININE RESULT 1.09 mg/dL (0.52-1.25); GLUCOSE 235 mg/dL (75-110); POTASSIUM 3.8 mmol/L (3.6-5.0); SODIUM 138.5 mmol/L (137-145)
[2017-03-13] MEDS ORDERED: POTASSI CL 20 MEQ/D5NS 1L 1000 ML IV PRN (20:53)
[2017-03-14] MEDS: OXYCODONE HCL IR 5 MG TABLET PO PRN ×4 (01:20→21:24)
[2017-03-14] MEDS ORDERED: INSULIN LISPRO 100 UNIT/ML 3 ML VIAL SUBCUT PRN (01:51)
--- NOTE | 2017-03-14 02:42 | RADIOLOGY REPORT (SQ) ---
EXAM DESCRIPTION: CT ABD/PELVIS ORAL ONLY COMPLETED DATE/TIME: 03/14/2017 1:55 am REASON FOR STUDY: LLQ abd pain, N/v COMPARISON: 12/09/2016 TECHNIQUE: CT scan of the abdomen and pelvis performed without intravenous or oral contrast. Images reviewed with lung, soft tissue, and bone windows. Reconstructed coronal and sagittal MPR images revi ewed. All images stored on PACS. All CT scanners at this facility use dose modulation, iterative reconstruction, and/or weight based d osing when appropriate to reduce radiation dose to as low as reasonably achievable (ALARA). [facility]: Dose Right [facility]: CareDose [facility]: Dose Right [facility]: Teradose 4D [facility]: Smart [email or web address] RADIATION DOSE: Up-to-date CT equipment and radiation dose reduction techniques were employed. CTDIv ol: 8.3 mGy. DLP: 468 mGy-cm.mGy. LIMITATIONS: None. FINDINGS: LOWER CHEST: No significant findings. No nodules or infiltrates. Small hiatal hernia. NON-CONTRASTED LIVER, SPLEEN, ADRENALS: Evaluation limited by lack of IV contrast. No identified sign ificant masses. PANCREAS: No masses. No peripancreatic inflammatory changes. GALLBLADDER: No identified stones by CT criteria. No inflammatory changes to suggest cholecystitis. RIGHT KIDNEY AND URETER: No suspicious masses. Assessment limited by lack of IV contrast. No signif icant calcifications. No hydronephrosis or hydroureter. LEFT KIDNEY AND URETER: No suspicious masses. Assessment limited by lack of IV contrast. No signifi cant calcifications. No hydronephrosis or hydroureter. Likely benign cysts of the left kidney mark ure up to 1.2 cm each. The AORTA AND RETROPERITONEUM: No aneurysm. No retroperitoneal masses or adenopathy. BOWEL AND PERITONEAL CAVITY: No obvious masses or inflammatory changes. No free fluid. Intraluminal contrast throughout the colon ; no evidence of obstruction. APPENDIX: The PELVIS, BLADDER, AND ABDOMINAL WALL:No abnormal masses. No free fluid. Bladder normal. BONES: No significant findings. OTHER: No other significant finding. IMPRESSION: No acute CT findings of the abdomen. TECHNICAL DOCUMENTATION: JOB ID: [id number] Quality ID # [id number]: Final reports with documentation of one or more dose reduction techniques (e.g., Au tomated exposure control, adjustment of the mA and/or kV according to patient size, use of iterative reconstruction technique) 2010 [employer]- All Rights Reserved
--- NOTE | 2017-03-14 05:54 | Progress Note ---
Provider Note Provider Note: March 14, 2017: Shortly before 1 AM this morning, I discovered that patient had refused midnight blood work, and was also refusing to have CT scan of his abdomen and pelvis performed. I was involved in the care of another patient at that time and could not come to patient's bedside. At 0105 this morning, With his floor nurse having her hospital phone on speaker phone, and with no one else in the room other than the nurse and patient, I discussed in layperson's terms with patient the importance of patient having both blood work and CT scan performed. He understands the risks associated with refusal of recommended care to include but not be limited to worsening of his serum glucose, along with possible other serious problems, should there be a major problem in his abdomen or pelvis, including or stroke with permanent paralysis. Patient decided to proceed with CT scan, but has adamantly refused to have any more blood draws. I instructed his floor nurse to have patient sign a refusal of care form. Above discussed with day hospitalist team.
[2017-03-14] MEDS ORDERED: INSULIN LISPRO 100 UNIT/ML 3 ML VIAL SUBCUT ONE (06:16)
[2017-03-14] MEDS ORDERED: NORMAL SALINE 1000 ML 1,000 ML IV PRN (06:20)
[2017-03-14] MEDS ORDERED: DEXTROSE 50%-WATER 25 GM/50 ML DISP.SYRIN IV PRN ×2 (07:02)
[2017-03-14] MEDS ORDERED: GLUCAGON,HUMAN RECOMB 1 MG INJ IM PRN (07:02)
[2017-03-14] MEDS ORDERED: DEXTROSE 40% GEL 15 GM TUBE PO PRN ×2 (07:02)
[2017-03-14] MEDS ORDERED: ONDANSETRON HCL INJ/PF 4 MG/2 ML SDV IV PRN (07:11)
[2017-03-14] MEDS ORDERED: INSULIN GLARGINE,HUM.REC.ANLOG 1,000 UNIT/10 ML UNIT SUBCUT ONE (07:15)
--- NOTE | 2017-03-14 09:37 | PDOC PROGRESS REPORT ---
Subjective Progress Note for:: 03/14/17 Subjective:: Patient according to nursing staff refused blood draw for insulin drip overnight. Insulin drip was therefore discontinued as it was a safety concern. This is discussed with patient this morning. His only concern is about getting his oxycodone increased. He states that he goes to [facility] pain management in [facility] and usually takes oxycodone 15 mg. Denies fever, chills, nausea, vomiting. Physical Exam Vital Signs: Temp Pulse Resp BP Pulse Ox 98.0 F 59 L 18 155/47 H 95 03/14/17 07:00 03/14/17 07:00 03/14/17 07:00 03/14/17 07:00 03/14/17 07:00 Intake & Output 03/13/17 03/14/17 03/15/17 06:59 06:59 06:59 Output Total 200 Balance -200 Weight 88.1 kg GENERAL: No acute distress HEENT: Conjunctiva clear, nonicteric, moist mucous membranes, no JVD, midline trachea RESPIRATORY: Clear to auscultation bilaterally, no wheezes, no rhonchi CARDIAC: Regular rate and rhythm, no murmurs/gallops/rubs ABDOMEN: Soft, nondistended, nontender, positive bowel sounds, no rebound, no guarding EXTREMETIES: No edema, cyanosis, clubbing NEUROLOGIC: Alert, oriented to person/place/time, CN's grossly intact, no focal deficits SKIN: No rash, wounds PSYCH: Normal mood, normal affect Results Laboratory Results: 03/13/17 19:54 Sodium 138.5 Potassium 3.8 Chloride 100 Carbon Dioxide 29 Anion Gap 10 BUN 15 Creatinine 1.09 Est GFR ( Amer) > 60 Est GFR (Non-Af Amer) > 60 Glucose 235 H Calcium 9.1 Impressions: Chest X-Ray 03/13/17 17:13 IMPRESSION: NO ACUTE RADIOGRAPHIC FINDING IN THE CHEST. Abdomen/Pelvis CT 03/14/17 00:00 IMPRESSION: No acute CT findings of the abdomen. Assessment & Plan - Diagnosis (1) Diabetes mellitus type 1 Is this a current diagnosis for this admission?: YesPlan: Insulin drip discontinued. Lantus 30 units subcu daily started. Sliding scale insulin coverage. Check hemoglobin A1c. Patient does not appear to be getting insulin filled every low pharmacy. Nursing and medical staff have reported that patient has exhibited some malingering behavior on multiple recent admissions. He apparently has no place to live and has been living "couch to couch". He denies deliberately trying to be admitted to the hospital. That being said he also denies drug use and has tested positive on multiple occasions for marijuana and on one occasion for cocaine. (2) Hyperglycemia Is this a current diagnosis for this admission?: Yes (3) Nausea and vomiting Is this a current diagnosis for this admission?: Yes (4) Hypertension Qualifiers: Hypertension type: essential hypertension Qualified Code(s): I10 - Essential (primary) hypertension Is this a current diagnosis for this admission?: Yes (5) Opiate dependence, continuous Is this a current diagnosis for this admission?: YesPlan: He states that he goes to [facility] pain management in [facility] and usually takes oxycodone 15 mg. I have discussed the case with pain management and they state they treat patient for chronic low back pain. When I asked what the source of the low back pain was but could not answer this question. They said they will pull further records and call me back. (6) Homelessness Is this a current diagnosis for this admission?: YesPlan: banking management consulting manager to evaluate. - Time Time Spent with patient: 35 or more minutes
[2017-03-14 09:52] LABS: ANION GAP 10 (5-19); BLOOD UREA NITROGEN 13 mg/dL (7-20); CARBON DIOXIDE 24 mmol/L (22-30); CHLORIDE 102 mmol/L (98-107); CREATININE RESULT 1.05 mg/dL (0.52-1.25); GLUCOSE 324 mg/dL (75-110); POTASSIUM 4.2 mmol/L (3.6-5.0); SODIUM 136.4 mmol/L (137-145)
[2017-03-14] MEDS: AMLODIPINE BESYLATE 5 MG TABLET PO SCH (10:12)
[2017-03-14] MEDS: ENOXAPARIN SODIUM INJ 40 MG/0.4 ML DISP.SYRIN SUBCUT SCH (10:13)
[2017-03-14 10:42] LABS: URINE BARBITURATES SCREEN NEGATIVE; URINE METHADONE SCREEN NEGATIVE; URINE OPIATES LOW NEGATIVE; URINE PHENCYCLIDINE SCREEN NEGATIVE
[2017-03-14] MEDS: INSULIN REG, HUMAN 100 UNIT/ML 3 ML VIAL (PYX) SUBCUT PRN ×3 (12:08→21:39)
[2017-03-15] MEDS: OXYCODONE HCL IR 5 MG TABLET PO PRN (06:07)
[2017-03-15 06:52] LABS: ABSOLUTE BASOPHILS # (AUTO) 0.1 10^3/uL (0.0-0.2); ABSOLUTE EOSINOPHILS # (AUTO) 0.1 10^3/uL (0.0-0.6); ABSOLUTE LYMPHOCYTES (AUTO) 1.8 10^3/uL (0.5-4.7); ABSOLUTE MONOCYTES (AUTO) 0.5 10^3/uL (0.1-1.4); BASOPHILS % (AUTO) 1.4 % (0-2); EOSINOPHILS % (AUTO) 1.7 % (0-6); HEMOGLOBIN 11.8 g/dL (13.5-17.0); HGB HCT DIFFERENCE -1.6; MEAN CORPUSCULAR HEMOGLOBIN 24.3 pg (27.0-33.4); MEAN CORPUSCULAR HGB CONC 31.7 g/dL (32.0-36.0); MEAN CORPUSCULAR VOLUME 77 fl (80-97); MONOCYTES % (AUTO) 5.8 % (3-13); RED BLOOD COUNT 4.84 10^6/uL (4.35-5.55); RED CELL DISTRIBUTION WIDTH 16.7 % (11.5-14.0); SEGMENTED NEUTROPHILS % (AUTO) 70.1 % (42-78); WHITE BLOOD COUNT 8.5 10^3/uL (4.0-10.5)
[2017-03-15 07:17] LABS: ANION GAP 9 (5-19); BLOOD UREA NITROGEN 11 mg/dL (7-20); CALCIUM 9.3 mg/dL (8.4-10.2); CARBON DIOXIDE 27 mmol/L (22-30); CHLORIDE 102 mmol/L (98-107); CREATININE RESULT 1.04 mg/dL (0.52-1.25); GLUCOSE 224 mg/dL (75-110); POTASSIUM 4.2 mmol/L (3.6-5.0); SODIUM 137.5 mmol/L (137-145)
[2017-03-15] MEDS: INSULIN REG, HUMAN 100 UNIT/ML 3 ML VIAL (PYX) SUBCUT PRN (08:09)
--- NOTE | 2017-03-15 09:14 | PDOC DISCHARGE SUMMARY ---
General - Admit/Disc Date/PCP Admission Date/Primary Care Provider: 03/13/17 16:51 None Discharge Date: 03/15/17 - Discharge Diagnosis (1) Diabetes mellitus type 1 Is this a current diagnosis for this admission?: Yes (2) Hyperglycemia Is this a current diagnosis for this admission?: Yes (3) Nausea and vomiting Is this a current diagnosis for this admission?: Yes (4) Hypertension Is this a current diagnosis for this admission?: Yes (5) Opiate dependence, continuous Is this a current diagnosis for this admission?: Yes (6) Homelessness Is this a current diagnosis for this admission?: Yes - Additional Information Resuscitation Status: Full Code Discharge Diet: Cardiac, Diabetic Discharge Activity: Activity As Tolerated Home Medications: Oxycodone HCl 15 mg PO Q6HP PRN 03/13/17 Amlodipine Besylate [Norvasc 5 mg Tablet] 5 mg PO DAILY #30 tablet 03/15/17 Insulin Aspart [Novolog Flexpen] 0 unit SUBCUT .SLD SCALE #1 pen 03/15/17 Insulin Aspart [Novolog Flexpen] 10 unit SUBCUT AC #1 pen 03/15/17 Insulin Detemir [Levemir Insulin 300 Units/3 ml Insuln.pen] 40 unit SUBCUT DAILY #1 syr 03/15/17 Lisinopril [Prinivil 10 mg Tablet] 10 mg PO DAILY #30 tablet 03/15/17 History of Present Illness Patient complains of: Elevated blood sugar History of Present Illness: LENA SCHULZ is a 31 year old male with insulin-dependent diabetes mellitus and frequent readmissions for hyperglycemia and DKA presents with 1 day of nausea and vomiting. Patient claims to be compliant with his insulin regimen however pharmacy records indicate that the only prescriptions he fills are for oxycodone. He is supposed to also be on blood pressure medicine but his last refill for Norvasc was in November of this year. Hospital Course Hospital Course: Patient was admitted to our facility for elevated blood glucose. He was initially started on an insulin drip although he was not in DKA. Insulin drip was discontinued as patient refused to have appropriate lab work and it was deemed unsafe to administer this high-risk medication without appropriate monitoring. Patient was transitioned to Lantus 30 units daily and sliding scale insulin. Patient blood glucose came under better control and his lab work on the morning of discharge was stable. He was not in DKA on day of discharge. He is advised to resume Levemir 40 units daily, NovoLog 10 units q. before meals, NovoLog per sliding scale upon discharge. He claims to be compliant with insulin regimen however pharmacy records indicate that he has not had insulin filled in months. He does not have a primary care provider. He is advised to maintain compliance with insulin regimen. Patient is chronic opiate dependent for chronic low back pain. He is treated by [facility] pain management in [facility] and usually takes oxycodone 15 mg. I had a discussion with his pain management clinic and they confirmed that he has chronic low back pain but could not state what the cause of his low back pain was. They said they were going to research this further and call me back on 03/14/2017 however they never called me back. Patient can follow-up with pain management as scheduled. He does seem to be very compliant with this despite his lack of compliance with his diabetes care. Physical Exam Vital Signs: Temp Pulse Resp BP Pulse Ox 98.0 F 72 15 150/80 H 100 03/15/17 07:29 03/15/17 07:29 03/15/17 07:29 03/15/17 07:29 03/15/17 07:29 Intake & Output 03/14/17 03/15/17 03/16/17 06:59 06:59 06:59 Intake Total 1388 Output Total 200 700 Balance -200 688 Weight 88.1 kg 88.6 kg GENERAL: No acute distress HEENT: Conjunctiva clear, nonicteric, moist mucous membranes, no JVD, midline trachea RESPIRATORY: Clear to auscultation bilaterally, no wheezes, no rhonchi CARDIAC: Regular rate and rhythm, no murmurs/gallops/rubs ABDOMEN: Soft, nondistended, nontender, positive bowel sounds, no rebound, no guarding EXTREMETIES: No edema, cyanosis, clubbing NEUROLOGIC: Alert, oriented to person/place/time, CN's grossly intact, no focal deficits SKIN: No rash, wounds PSYCH: Normal mood, normal affect Results Laboratory Results: 03/15/17 06:06 03/15/17 06:06 03/14/17 03/15/17 03/15/17 09:10 06:06 06:06 WBC 8.5 RBC 4.84 Hgb 11.8 L Hct 37.0 L MCV 77 L MCH 24.3 L MCHC 31.7 L RDW 16.7 H Plt Count 271 Seg Neutrophils % 70.1 Lymphocytes % 21.0 Monocytes % 5.8 Eosinophils % 1.7 Basophils % 1.4 Absolute Neutrophils 6.0 Absolute Lymphocytes 1.8 Absolute Monocytes 0.5 Absolute Eosinophils 0.1 Absolute Basophils 0.1 Sodium 136.4 L 137.5 Potassium 4.2 4.2 Chloride 102 102 Carbon Dioxide 24 27 Anion Gap 10 9 BUN 13 11 Creatinine 1.05 1.04 Est GFR ( Amer) > 60 > 60 Est GFR (Non-Af Amer) > 60 > 60 Glucose 324 H 224 H Calcium 9.0 9.3 Impressions: Chest X-Ray 03/13/17 17:13 IMPRESSION: NO ACUTE RADIOGRAPHIC FINDING IN THE CHEST. Abdomen/Pelvis CT 03/14/17 00:00 IMPRESSION: No acute CT findings of the abdomen. Qualifiers PATEINT BEING DISCHARGED WITH ANY OF THE FOLLOWING DIAGNOSIS?: No Plan Time Spent: Less than 30 Minutes
[2017-03-15] MEDS: AMLODIPINE BESYLATE 5 MG TABLET PO SCH (09:29)
[2017-03-15] MEDS: ENOXAPARIN SODIUM INJ 40 MG/0.4 ML DISP.SYRIN SUBCUT SCH (09:29)
[2017-03-15] MEDS ORDERED: INSULIN GLARGINE,HUM.REC.ANLOG 300 UNIT/3 ML INSULN.PEN SUBCUT SCH ×2 (10:00)
[2017-03-15 10:24] VITALS: BP 143/92
== END 2017-03-15 10:30 | disposition home or self-care (01) | DRG 639 ==
LOC: ER 13:12 → EH 16:51 → UNDOADMIN 18:26 → EH 18:26 → 4N 19:17 → EH 19:17
PROVIDERS: ADMIT Family Medicine; ATTEND Family Medicine
DX: E10.65 Type 1 diabetes mellitus with hyperglycemia (principal); I10 Essential (primary) hypertension; M54.5 Low back pain; F32.9 Major depressive disorder, single episode, unspecified; F17.210 Nicotine dependence, cigarettes, uncomplicated; Z59.0 Homelessness; Z79.891 Long term (current) use of opiate analgesic; Z79.4 Long term (current) use of insulin; Z53.29 Procedure and treatment not carried out because of patient's decision for other reasons; Z91.14 Patient's other noncompliance with medication regimen; Z90.49 Acquired absence of other specified parts of digestive tract; Z83.3 Family history of diabetes mellitus; Z82.49 Family history of ischemic heart disease and other diseases of the circulatory system
CPT/HCPCS: 36415; 71010; 74176; 80048; 80053; 80307; 81001; 82803; 82962; 83036; 83690; 85025; 99284; J1650; J1815; J2405; J3490; J7030

== ENCOUNTER 2017-04-17 10:51 | Inpatient (IN) | payer MEDICAID, OTHER ==
[2017-04-17] MEDS ORDERED: ONDANSETRON 4 MG TAB.RAPDIS PO ONE (11:06)
[2017-04-17] MEDS ORDERED: ONDANSETRON 4 MG TAB.RAPDIS ONE (11:10)
--- NOTE | 2017-04-17 11:34 | ER Document Report ---
ED Medical Screen (RME) - General Chief Complaint: Nausea/Vomiting Stated Complaint: VOMITING Time Seen by Provider: 04/17/17 11:06 Notes: Patient reports several days of vomiting and diffuse abdominal pain. He is also had increased urination. He states he is diabetic and his sugars have been reading high at home. TRAVEL OUTSIDE OF THE [place] IN LAST 30 DAYS: No - Related Data Allergies/Adverse Reactions: No Known Allergies Allergy (Verified 03/07/17 16:50) Past Medical History - Social History Family history: Reviewed & Not Pertinent - Past Medical History Cardiac Medical History: Reports: Hx Hypertension Denies: Hx Congestive Heart Failure, Hx DVT, Hx Heart Attack, Hx Hypercholesterolemia, Hx Pulmonary Embolism Pulmonary Medical History: Reports: Hx Asthma - as child Denies: Hx COPD, Hx Sleep Apnea Neurological Medical History: Reports: Hx Migraine. Denies: Hx Seizures Endocrine Medical History: Reports: Hx Diabetes Mellitus Type 1. Denies: Hx Diabetes Mellitus Type 2, Hx Hyperthyroidism, Hx Hypothyroidism Renal/ Medical History: Denies: Hx Peritoneal Dialysis GI Medical History: Denies: Hx Cirrhosis, Hx Gastroesophageal Reflux Disease, Hx Hepatitis Musculoskeltal Medical History: Denies Hx Arthritis Psychiatric Medical History: Reports: Hx Anxiety, Hx Depression, Hx Schizophrenia Infectious Medical History: Denies: Hx C-Diff, Hx Hepatitis, Hx MRSA Past Surgical History: Reports: Hx Appendectomy, Hx Oral Surgery - wisdom teeth , Other - [place] teeth extraction - Immunizations Hx Diphtheria, Pertussis, Tetanus Vaccination: Yes Physical Exam - Vital signs Vitals: Temp Pulse Resp BP Pulse Ox 97.6 F 120 H 20 154/88 H 99 04/17/17 10:55 04/17/17 10:55 04/17/17 10:55 04/17/17 10:55 04/17/17 10:55 Course - Vital Signs Vital signs: Temp Pulse Resp BP Pulse Ox 97.6 F 120 H 20 154/88 H 99 04/17/17 10:55 04/17/17 10:55 04/17/17 10:55 04/17/17 10:55 04/17/17 10:55
[2017-04-17 11:46] LABS: APPEARANCE,URINE CLEAR; BILIRUBIN,URINE NEGATIVE (NEGATIVE); GLUCOSE, URINE >=500 mg/dL (NEGATIVE); KETONES,URINE 80 mg/dL (NEGATIVE); LEUKOCYTE ESTERASE,URINE NEGATIVE (NEGATIVE); NITRITE,URINE NEGATIVE (NEGATIVE); PROTEIN,URINE 100 mg/dL (NEGATIVE); URINE SPECIFIC GRAVITY 1.012; UROBILINOGEN,URINE NEGATIVE mg/dL (<2.0)
[2017-04-17] MEDS: NORMAL SALINE 1000 ML 2,000 ML IV PRN ×2 (12:17→16:28)
[2017-04-17 12:32] LABS: HEMATOCRIT 33.5 % (37.9-51.0); HEMOGLOBIN 10.7 g/dL (13.5-17.0); HGB HCT DIFFERENCE -1.4; MEAN CORPUSCULAR HEMOGLOBIN 25.9 pg (27.0-33.4); MEAN CORPUSCULAR HGB CONC 31.9 g/dL (32.0-36.0); MEAN CORPUSCULAR VOLUME 81 fl (80-97); RED BLOOD COUNT 4.14 10^6/uL (4.35-5.55); RED CELL DISTRIBUTION WIDTH 16.4 % (11.5-14.0); WHITE BLOOD COUNT 14.8 10^3/uL (4.0-10.5)
[2017-04-17] MEDS ORDERED: METOCLOPRAMIDE HCL INJ/PF 10 MG/2 ML SDV IV ONE (12:53)
[2017-04-17 13:05] LABS: BASOPHILS % (MANUAL) 0 % (0-2); EOSINOPHILS % (MANUAL) 0 % (0-6); LYMPHOCYTES % (MANUAL) 5 % (13-45); TOTAL CELLS COUNTED 100
[2017-04-17 13:06] LABS: ANISOCYTOSIS 1+; OVALOCYTES SLIGHT; POIKILOCYTOSIS SLIGHT
--- NOTE | 2017-04-17 14:21 | ER Document Report ---
ED GI/ - General Chief Complaint: Nausea/Vomiting Stated Complaint: VOMITING Time Seen by Provider: 04/17/17 11:06 Mode of Arrival: Ambulatory Information source: Patient TRAVEL OUTSIDE OF THE [place] IN LAST 30 DAYS: No - HPI Patient complains to provider of: Vomiting Onset: Other - 3 days Timing/Duration: Gradual, Persistent, Worse Quality of pain: Achy Severity at maximum: Mild Severity in ED: Mild Pain Level: 1 Location: Epigastric Associated symptoms: Nausea, Vomiting Exacerbated by: Denies Relieved by: Denies Similar symptoms previously: Yes Recently seen / treated by doctor: Yes Notes: 04/17/17 19:00 Patient is a 31-year-old male who is an insulin-dependent diabetic who presents to the emergency room today complaining of nausea and vomiting with epigastric abdominal pain over the past 3 days, patient has a history of very similar presentations in the past and has been diagnosed and admitted for diabetic ketoacidosis multiple times, he denies medication noncompliance, however he is a poor historian during my evaluation and compliance with his medication is questionable, he denies any diarrhea, no blood in his vomit or stools, no fevers , no cough, cold or congestion - Related Data Allergies/Adverse Reactions: No Known Allergies Allergy (Verified 03/07/17 16:50) Home Medications: Current Home Medications Insulin Aspart [Novolog Flexpen] 0 units SQ MEALS PRN 04/17/17 [History] Insulin Detemir [Levemir Flextouch] 40 units SQ QHS 04/17/17 [History] Oxycodone HCl 15 mg PO Q6 04/17/17 [History] Past Medical History - General Information source: Patient - Social History Smoking Status: Unknown if Ever Smoked Family History: Reviewed & Not Pertinent, DM, Hypertension Patient has suicidal ideation: No Patient has homicidal ideation: No - Past Medical History Cardiac Medical History: Reports: Hx Hypertension Denies: Hx Congestive Heart Failure, Hx DVT, Hx Heart Attack, Hx Hypercholesterolemia, Hx Pulmonary Embolism Pulmonary Medical History: Reports: Hx Asthma - as child Denies: Hx COPD, Hx Sleep Apnea Neurological Medical History: Reports: Hx Migraine. Denies: Hx Seizures Endocrine Medical History: Reports: Hx Diabetes Mellitus Type 1. Denies: Hx Diabetes Mellitus Type 2, Hx Hyperthyroidism, Hx Hypothyroidism Renal/ Medical History: Denies: Hx Peritoneal Dialysis GI Medical History: Denies: Hx Cirrhosis, Hx Gastroesophageal Reflux Disease, Hx Hepatitis Musculoskeltal Medical History: Denies Hx Arthritis Psychiatric Medical History: Reports: Hx Anxiety, Hx Depression, Hx Schizophrenia Infectious Medical History: Denies: Hx C-Diff, Hx Hepatitis, Hx MRSA Past Surgical History: Reports: Hx Appendectomy, Hx Oral Surgery - wisdom teeth , Other - [place] teeth extraction - Immunizations Hx Diphtheria, Pertussis, Tetanus Vaccination: Yes Hx Pneumococcal Vaccination: 09/16/00 Review of Systems - Review of Systems Constitutional: No symptoms reported EENT: No symptoms reported Cardiovascular: No symptoms reported Respiratory: No symptoms reported Gastrointestinal: See HPI Genitourinary: No symptoms reported Male Genitourinary: No symptoms reported Musculoskeletal: No symptoms reported Skin: No symptoms reported Hematologic/Lymphatic: No symptoms reported Neurological/Psychological: No symptoms reported -: Yes All other systems reviewed and negative Physical Exam - Vital signs Vitals: Temp Pulse Resp BP Pulse Ox 97.6 F 120 H 20 154/88 H 99 04/17/17 10:55 04/17/17 10:55 04/17/17 10:55 04/17/17 10:55 04/17/17 10:55 Interpretation: Tachycardic - General General appearance: Other - Somnolent but arousable In distress: Mild - HEENT Head: Normocephalic, Atraumatic Eyes: Normal Pupils: PERRL Mucous membranes: Dry Neck: Normal - Respiratory Respiratory status: No respiratory distress Chest status: Nontender Breath sounds: Normal Chest palpation: Normal - Cardiovascular Rhythm: Regular, Tachycardia Heart sounds: Normal auscultation Murmur: No - Abdominal Inspection: Normal Distension: No distension Bowel sounds: Normal Tenderness: Tender - Epigastric, mild Organomegaly: No organomegaly - Back Back: Normal - Extremities General upper extremity: Normal inspection General lower extremity: Normal inspection - Neurological Mely Coma Scale Eye Opening: To Voice Sherrard Coma Scale Verbal: Oriented Mely Coma Scale Motor: Obeys Commands Sherrard Coma Scale Total: 14 - Skin Skin Temperature: Warm Skin Moisture: Dry Skin Color: Normal Course - Re-evaluation Re-evalutation: 04/17/17 16:07 I placed a call to Dr. Fisher who is the physician that patient reports as being his last primary care provider, Dr. Fisher confirms that patient was discharged from his practice 04/17/17 16:11 Patient was discussed with hospitalist service who agrees to admit for further evaluation and treatment - Vital Signs Vital signs: Temp Pulse Resp BP Pulse Ox 97.6 F 120 H 15 178/85 H 99 04/17/17 10:55 04/17/17 10:55 04/17/17 13:01 04/17/17 13:00 04/17/17 13:01 - Laboratory Result Diagrams: 04/17/17 12:03 04/17/17 15:05 Laboratory results interpreted by me: 04/17/17 04/17/17 04/17/17 11:21 12:03 12:07 WBC 14.8 H RBC 4.14 L Hgb 10.7 L Hct 33.5 L MCH 25.9 L MCHC 31.9 L RDW 16.4 H Seg Neuts % (Manual) 93 H Lymphocytes % (Manual) 5 L Monocytes % (Manual) 2 L Abs Neuts (Manual) 13.8 H VBG pCO2 VBG HCO3 Carbon Dioxide Anion Gap BUN Creatinine Est GFR ( Amer) Est GFR (Non-Af Amer) Glucose POC Glucose 530 H* Serum Osmolality Direct Bilirubin Total Protein Albumin Urine Protein 100 H Urine Glucose (UA) >=500 H Urine Ketones 80 H Urine Blood SMALL H 04/17/17 04/17/17 04/17/17 13:53 15:05 15:05 WBC RBC Hgb Hct MCH MCHC RDW Seg Neuts % (Manual) Lymphocytes % (Manual) Monocytes % (Manual) Abs Neuts (Manual) VBG pCO2 32.1 L VBG HCO3 16.0 L Carbon Dioxide Anion Gap BUN Creatinine Est GFR ( Amer) Est GFR (Non-Af Amer) Glucose POC Glucose 544 H* Serum Osmolality 331 H Direct Bilirubin Total Protein Albumin Urine Protein Urine Glucose (UA) Urine Ketones Urine Blood 04/17/17 15:05 WBC RBC Hgb Hct MCH MCHC RDW Seg Neuts % (Manual) Lymphocytes % (Manual) Monocytes % (Manual) Abs Neuts (Manual) VBG pCO2 VBG HCO3 Carbon Dioxide 12 L Anion Gap 28 H BUN 30 H Creatinine 1.87 H Est GFR ( Amer) 51 L Est GFR (Non-Af Amer) 42 L Glucose 648 H* POC Glucose Serum Osmolality Direct Bilirubin 0.5 H Total Protein 5.9 L Albumin 3.4 L Urine Protein Urine Glucose (UA) Urine Ketones Urine Blood - Transfer of Care Care transferred to following provider: Dr Gomes Critical Care Note - Critical Care Note Total time excluding time spent on procedures (mins): 40 Comments: Patient tachycardic, somnolence, lab findings consistent with diabetic ketoacidosis, requiring frequent reevaluation, consultation with the hospitalist service for admission Discharge - Discharge Clinical Impression: DKA (diabetic ketoacidoses) Qualifiers: Diabetes mellitus type: type 1 Diabetes mellitus complication detail: without coma Qualified Code(s): E10.10 - Type 1 diabetes mellitus with ketoacidosis without coma Condition: Serious Disposition: ADMITTED INPATIENT Admitting Provider: Hospitalist Unit Admitted: [facility]
[2017-04-17 15:35] LABS: VENOUS BLOOD BASE EXCESS -9.1 mmol/L; VENOUS BLOOD PCO2 32.1 mmHg (35-63); VENOUS BLOOD PH 7.32 (7.30-7.42)
[2017-04-17 15:47] LABS: ALANINE AMINOTRANSFERASE 24 U/L (21-72); ALBUMIN 3.4 g/dL (3.5-5.0); ALKALINE PHOSPHATASE 121 U/L (38-126); ASPARTATE AMINO TRANSFERASE 17 U/L (17-59); BILIRUBIN,DIRECT 0.5 mg/dL (0.0-0.4); BILIRUBIN,TOTAL 0.8 mg/dL (0.2-1.3); BLOOD UREA NITROGEN 30 mg/dL (7-20); CALCIUM 8.7 mg/dL (8.4-10.2); CARBON DIOXIDE 12 mmol/L (22-30); CREATININE RESULT 1.87 mg/dL (0.52-1.25); LIPASE 57.2 U/L (23-300); TOTAL PROTEIN 5.9 g/dL (6.3-8.2)
[2017-04-17 15:57] LABS: ANION GAP 28 (5-19); CHLORIDE 98 mmol/L (98-107); SODIUM 138.4 mmol/L (137-145)
[2017-04-17 15:59] LABS: GLUCOSE 648 mg/dL (75-110)
[2017-04-17] MEDS ORDERED: GLUCAGON,HUMAN RECOMB 1 MG INJ IM PRN ×2 (16:04→16:47)
[2017-04-17] MEDS ORDERED: DEXTROSE 40% GEL 15 GM TUBE PO PRN ×4 (16:04→16:47)
[2017-04-17] MEDS ORDERED: DEXTROSE 50%-WATER 25 GM/50 ML DISP.SYRIN IV PRN ×4 (16:04→16:47)
[2017-04-17] MEDS ORDERED: INSULIN REG, HUMAN 100 UNIT/ML 3 ML VIAL (PYX) ONE (16:18)
[2017-04-17] MEDS: NORMAL SALINE 100 ML with INSULIN REGULAR, HUMAN 100 UNIT IV PRN ×2 (16:29)
[2017-04-17] MEDS ORDERED: ONDANSETRON HCL INJ/PF 4 MG/2 ML SDV IV PRN (16:40)
[2017-04-17] MEDS ORDERED: ONDANSETRON 4 MG TAB.RAPDIS PO PRN (16:40)
[2017-04-17] MEDS ORDERED: NORMAL SALINE 1000 ML 1,000 ML IV PRN ×2 (16:40→21:23)
[2017-04-17] MEDS ORDERED: ACETAMINOPHEN 325 MG TABLET PO PRN (16:40)
[2017-04-17] MEDS ORDERED: NORMAL SALINE 100 ML with INSULIN REGULAR, HUMAN 100 UNIT IV PRN ×2 (16:47)
--- NOTE | 2017-04-17 16:54 | PDOC H&P ---
History of Present Illness Admission Date/PCP: JARON ANN MD Patient complains of: Nausea for 3 days History of Present Illness: LENA SCHULZ is a 31 year old male known to me from previous admissions to the hospitalist service who presents with DKA. Patient reports over the last 3 days he had nausea and decreased p.o. intake. He reports he has been compliant with his insulin however when asked what he is taking he could not recall. He does have a history of noncompliance. He denies having any fevers or chills. He denies any visual or hearing changes. Denies any shortness of breath or chest pain. Denies any abdominal pain. He has had the nausea for the last 3 days. Denies any melena or bright red blood per rectum. Denies any dysuria. Denies any skin rash. Past Medical History Cardiac Medical History: Reports: Hypertension Denies: Congestive Heart Failure, DVT, Myocardial Infarction, Hyperlipidema, Pulmonary Embolism Pulmonary Medical History: Reports: Asthma - as child Denies: Chronic Obstructive Pulmonary Disease (COPD), Sleep Apnea Neurological Medical History: Reports: Migraine Denies: Seizures Endocrine Medical History: Reports: Diabetes Mellitus Type 1 Denies: Diabetes Mellitus Type 2, Hyperthyroidism, Hypothyroidism Malignancy Medical History: Reports: None GI Medical History: Denies: Cirrhosis, Gastroesophageal Reflux Disease, Hepatitis Musculoskeltal Medical History: Denies: Arthritis Skin Medical History: Reports: None Psychiatric Medical History: Reports: Depression Traumatic Medical History: Reports: None Hematology: Reports: None Infectious Medical History: Denies: Clostridium Difficile, Methicillin-Resistant Staph Aureus Past Surgical History Past Surgical History: Reports: Appendectomy, Other - [place] teeth extraction Social History Information Source: Patient Lives with: Alone Smoking Status: Never Smoker Frequency of Alcohol Use: None Hx Recreational Drug Use: No Drugs: None Hx Prescription Drug Abuse: No - Advance Directive Resuscitation Status: Full Code Family History Family History: DM, Hypertension Parental Family History Reviewed: Yes Children Family History Reviewed: No Sibling(s) Family History Reviewed.: No Medication/Allergy Home Medications: Oxycodone HCl 15 mg PO Q6HP PRN 03/13/17 Amlodipine Besylate [Norvasc 5 mg Tablet] 5 mg PO DAILY #30 tablet 03/15/17 Insulin Aspart [Novolog Flexpen] 0 unit SUBCUT .SLD SCALE #1 pen 03/15/17 Insulin Aspart [Novolog Flexpen] 10 unit SUBCUT AC #1 pen 03/15/17 Insulin Detemir [Levemir Insulin 300 Units/3 ml Insuln.pen] 40 unit SUBCUT DAILY #1 syr 03/15/17 Lisinopril [Prinivil 10 mg Tablet] 10 mg PO DAILY #30 tablet 03/15/17 Allergies/Adverse Reactions: No Known Allergies Allergy (Verified 03/07/17 16:50) Review of Systems Constitutional: ABSENT: chills, fever(s), headache(s), night sweats, weight gain , weight loss Eyes: ABSENT: visual disturbances Ears: ABSENT: hearing changes Cardiovascular: ABSENT: chest pain, dyspnea on exertion, edema, orthropnea, palpitations Respiratory: ABSENT: cough, hemoptysis Gastrointestinal: PRESENT: heartburn, nausea. ABSENT: abdominal pain, bloating , coffee ground emesis, constipation, diarrhea, dysphagia, hematemesis, hematochezia, melena, vomiting Genitourinary: ABSENT: dysuria, hematuria Musculoskeletal: ABSENT: joint swelling Integumentary: ABSENT: rash, wounds Neurological: ABSENT: abnormal gait, abnormal speech, confusion, dizziness, focal weakness, syncope Psychiatric: ABSENT: anxiety, depression, homidical ideation, suicidal ideation Endocrine: ABSENT: cold intolerance, heat intolerance, polydipsia, polyuria Hematologic/Lymphatic: ABSENT: easy bleeding, easy bruising Physical Exam Vital Signs: Temp Pulse Resp BP Pulse Ox 97.6 F 120 H 15 178/85 H 99 04/17/17 10:55 04/17/17 10:55 04/17/17 13:01 04/17/17 13:00 04/17/17 13:01 Intake & Output 04/16/17 04/17/17 04/18/17 06:59 06:59 06:59 Weight 96 kg General appearance: PRESENT: no acute distress, well-developed, well-nourished Head exam: PRESENT: atraumatic, normocephalic Eye exam: PRESENT: conjunctiva pink, EOMI, PERRLA. ABSENT: scleral icterus Ear exam: PRESENT: normal external ear exam Mouth exam: PRESENT: dry mucosa, tongue midline Neck exam: ABSENT: carotid bruit, JVD, lymphadenopathy, thyromegaly Respiratory exam: PRESENT: clear to auscultation juan ramon. ABSENT: rales, rhonchi, wheezes Cardiovascular exam: PRESENT: RRR. ABSENT: diastolic murmur, rubs, systolic murmur Pulses: PRESENT: normal dorsalis pedis pul Vascular exam: PRESENT: normal capillary refill GI/Abdominal exam: PRESENT: normal bowel sounds, soft. ABSENT: distended, guarding, mass, organolmegaly, rebound, tenderness Rectal exam: PRESENT: deferred Extremities exam: ABSENT: calf tenderness, clubbing, pedal edema Neurological exam: PRESENT: alert, awake, oriented to person, oriented to place , oriented to time, oriented to situation, CN II-XII grossly intact. ABSENT: motor sensory deficit Psychiatric exam: PRESENT: flat affect Skin exam: PRESENT: dry, intact, warm. ABSENT: cyanosis, rash Results Laboratory Results: 04/17/17 12:03 04/17/17 15:05 04/17/17 04/17/17 04/17/17 11:21 12:03 12:03 WBC 14.8 H RBC 4.14 L Hgb 10.7 L Hct 33.5 L MCV 81 MCH 25.9 L MCHC 31.9 L RDW 16.4 H Plt Count 330 Seg Neutrophils % Not Reportable Lymphocytes % Not Reportable Monocytes % Not Reportable Eosinophils % Not Reportable Basophils % Not Reportable Absolute Neutrophils Not Reportable Absolute Lymphocytes Not Reportable Absolute Monocytes Not Reportable Absolute Eosinophils Not Reportable Absolute Basophils Not Reportable VBG pH VBG pCO2 VBG HCO3 VBG Base Excess Sodium Cancelled Potassium Cancelled Chloride Cancelled Carbon Dioxide Cancelled Anion Gap Cancelled BUN Cancelled Creatinine Cancelled Est GFR ( Amer) Cancelled Est GFR (Non-Af Amer) Cancelled Glucose Cancelled Serum Osmolality Calcium Cancelled Total Bilirubin Cancelled AST Cancelled ALT Cancelled Alkaline Phosphatase Cancelled Total Protein Cancelled Albumin Cancelled Lipase Cancelled Urine Color STRAW Urine Appearance CLEAR Urine pH 5.0 Ur Specific [place] 1.012 Urine Protein 100 H Urine Glucose (UA) >=500 H Urine Ketones 80 H Urine Blood SMALL H Urine Nitrite NEGATIVE Ur Leukocyte Esterase NEGATIVE Urine WBC (Auto) 1 Urine RBC (Auto) 1 04/17/17 04/17/17 04/17/17 15:05 15:05 15:05 WBC RBC Hgb Hct MCV MCH MCHC RDW Plt Count Seg Neutrophils % Lymphocytes % Monocytes % Eosinophils % Basophils % Absolute Neutrophils Absolute Lymphocytes Absolute Monocytes Absolute Eosinophils Absolute Basophils VBG pH 7.32 VBG pCO2 32.1 L VBG HCO3 16.0 L VBG Base Excess -9.1 Sodium 138.4 Potassium 5.0 Chloride 98 Carbon Dioxide 12 L Anion Gap 28 H BUN 30 H Creatinine 1.87 H Est GFR ( Amer) 51 L Est GFR (Non-Af Amer) 42 L Glucose 648 H* Serum Osmolality 331 H Calcium 8.7 Total Bilirubin 0.8 AST 17 ALT 24 Alkaline Phosphatase 121 Total Protein 5.9 L Albumin 3.4 L Lipase 57.2 Urine Color Urine Appearance Urine pH Ur Specific Preston Urine Protein Urine Glucose (UA) Urine Ketones Urine Blood Urine Nitrite Ur Leukocyte Esterase Urine WBC (Auto) Urine RBC (Auto) Assessment & Plan - Diagnosis (1) DKA (diabetic ketoacidoses) Qualifiers: Diabetes mellitus type: type 1 Diabetes mellitus complication detail: without coma Qualified Code(s): E10.10 - Type 1 diabetes mellitus with ketoacidosis without coma Is this a current diagnosis for this admission?: YesPlan: Has a long history of complaints. He also has had nausea with decreased p.o. intake for the last 3 days at the most likely cause for his DKA. Will give IV fluids aggressively and start him on insulin drip. We will continue to check every 4 hour lab work until his anion gap is resolved. No evidence for any infections. (2) Hypertension Qualifiers: Hypertension type: essential hypertension Qualified Code(s): I10 - Essential (primary) hypertension Is this a current diagnosis for this admission?: YesPlan: Has been on Norvasc in the past but has been noncompliant with medication. (3) ARF (acute renal failure) Qualifiers: Acute renal failure type: unspecified Qualified Code(s): N17.9 - Acute kidney failure, unspecified Is this a current diagnosis for this admission?: YesPlan: Patient's creatinine is elevated. This should correct with IV fluids. - Time Time Spent: 50 to 70 Minutes - Inpatient Certification Medical Necessity: Need Close Monitoring Due to Risk of Patient Decompensation, Need For IV Fluids
[2017-04-17 19:42] LABS: BLOOD UREA NITROGEN 37 mg/dL (7-20); CALCIUM 8.4 mg/dL (8.4-10.2); CREATININE RESULT 1.95 mg/dL (0.52-1.25)
[2017-04-17] MEDS ORDERED: LANSOPRAZOLE 30 MG TAB.RAP.DR PO ONE (20:00)
[2017-04-17 20:02] LABS: POTASSIUM 4.9 mmol/L (3.6-5.0)
[2017-04-17 20:03] LABS: CHLORIDE 101 mmol/L (98-107); SODIUM 135.9 mmol/L (137-145)
[2017-04-17 20:05] LABS: ANION GAP 26 (5-19)
[2017-04-17 20:08] LABS: GLUCOSE 640 mg/dL (75-110)
[2017-04-17 20:09] LABS: CARBON DIOXIDE 9 mmol/L (22-30)
[2017-04-17] MEDS: OXYCODONE HCL IR 5 MG TABLET PO PRN (23:13)
[2017-04-17] MEDS: FAMOTIDINE 20 MG TABLET PO SCH (23:16)
[2017-04-17 23:18] LABS: BLOOD UREA NITROGEN 38 mg/dL (7-20); CALCIUM 8.8 mg/dL (8.4-10.2); CREATININE RESULT 1.74 mg/dL (0.52-1.25); POTASSIUM 4.3 mmol/L (3.6-5.0)
[2017-04-17] MEDS ORDERED: LORAZEPAM INJ 2 MG/1 ML VIAL ONE ×2 (23:22→23:29)
[2017-04-17 23:32] LABS: CARBON DIOXIDE 14 mmol/L (22-30); CHLORIDE 102 mmol/L (98-107); SODIUM 138.3 mmol/L (137-145)
[2017-04-17] MEDS ORDERED: LIDOCAINE 1% INJ-PF (10 MG/ML) 30 ML SDV ONE (23:33)
[2017-04-17 23:36] LABS: ANION GAP 22 (5-19)
[2017-04-17] MEDS ORDERED: LORAZEPAM INJ 2 MG/1 ML VIAL IV ONE (23:38)
[2017-04-17 23:40] LABS: GLUCOSE 491 mg/dL (75-110)
[2017-04-17] MEDS ORDERED: HALOPERIDOL LACTATE INJ 5 MG/1 ML VIAL ONE (23:53)
--- NOTE | 2017-04-18 00:32 | RADIOLOGY REPORT (SQ) ---
EXAM DESCRIPTION: CHEST SINGLE VIEW COMPLETED DATE/TIME: 04/18/2017 12:20 am REASON FOR STUDY: Central Line Placement COMPARISON: 03/13/2017. EXAM PARAMETERS: NUMBER OF VIEWS: One view. TECHNIQUE: Single frontal radiographic view of the chest acquired. RADIATION DOSE: NA LIMITATIONS: Left apex clipped. FINDINGS: LUNGS AND PLEURA: No opacities, masses or pneumothorax. No pleural effusion. MEDIASTINUM AND HILAR STRUCTURES: No masses. Contour normal. HEART AND VASCULAR STRUCTURES: Heart normal in size. Normal vasculature. BONES: No acute findings. HARDWARE: Tip of a left subclavian central line is at the cavoatrial junction. OTHER: No other significant finding. IMPRESSION: Left subclavian central line. No acute cardiopulmonary findings; limitation. TECHNICAL DOCUMENTATION: JOB ID: [id number]
[2017-04-18 01:28] LABS: ARTERIAL BLOOD BASE EXCESS -1.5 mmol/L; ARTERIAL BLOOD O2 SATURATION 96.4 % (94-98)
--- NOTE | 2017-04-18 01:58 | OPERATIVE REPORT E ---
Operative Report NAME: LENA SCHULZ : 1985 AGE: 31Y DATE OF SURGERY: 04/17/2017 ROOM: 605 PREOPERATIVE DIAGNOSIS: Diabetic ketoacidosis with poor peripheral vein for IV access. POSTOPERATIVE DIAGNOSIS: Diabetic ketoacidosis with poor peripheral vein for IV access. OPERATION: Insertion of left subclavian catheter. ANESTHESIA: Local with sedation SURGEON: SHON SOTO M.D. INDICATION: This is a 32-year-old male admitted for DKA and needed IV access. He has poor vein and needed more IV access for medications. PROCEDURE: The patient was somewhat agitated when given 2 mg of IV antibiotic. He was then placed in Trendelenburg position and the left chest prepped and draped in the usual sterile fashion. Local anesthesia infiltrated the left infraclavicular area. The left subclavian vein was then punctured and guidewire through the needle into the superior vena cava. The needle was removed and the puncture site enlarged. A triple-lumen catheter was inserted through the guidewire up to about 17 cm. The catheter was then anchored to the skin with 3-0 silk. Bypass was placed at the incision site and sterile transparent dressing placed over the catheter. The patient tolerated the procedure well. Chest x-ray will be obtained for placement. All the ports were easily aspirated of blood as easily infused saline. DICTATING PHYSICIAN: SHON SOTO M.D. [id number] PHY#: [id number] ID: [id number] JOB#: [id number] ACCT: [id number] cc:SHON SOTO M.D. > MTDD
[2017-04-18] MEDS ORDERED: POTASSI CL 20 MEQ/D5-1/2NS 1L 1000 ML IV PRN (02:25)
[2017-04-18 03:05] LABS: BLOOD UREA NITROGEN 36 mg/dL (7-20); CALCIUM 8.3 mg/dL (8.4-10.2); CHLORIDE 107 mmol/L (98-107); CREATININE RESULT 1.54 mg/dL (0.52-1.25); GLUCOSE 230 mg/dL (75-110); POTASSIUM 3.9 mmol/L (3.6-5.0); SODIUM 139.8 mmol/L (137-145)
[2017-04-18 03:34] LABS: ANION GAP 10 (5-19)
[2017-04-18 03:37] LABS: CARBON DIOXIDE 23 mmol/L (22-30)
[2017-04-18 05:31] LABS: HEMATOCRIT 25.5 % (37.9-51.0); MEAN CORPUSCULAR HEMOGLOBIN 25.8 pg (27.0-33.4); MEAN CORPUSCULAR HGB CONC 33.4 g/dL (32.0-36.0); RED CELL DISTRIBUTION WIDTH 16.4 % (11.5-14.0); WHITE BLOOD COUNT 19.2 10^3/uL (4.0-10.5)
[2017-04-18] MEDS ORDERED: INSULIN REG, HUMAN 100 UNIT/ML 3 ML VIAL (PYX) ONE (05:33)
[2017-04-18 05:39] LABS: HEMOGLOBIN 8.5 g/dL (13.5-17.0); MEAN CORPUSCULAR VOLUME 77 fl (80-97)
[2017-04-18 05:41] LABS: ANION GAP 9 (5-19); BLOOD UREA NITROGEN 32 mg/dL (7-20); CALCIUM 8.2 mg/dL (8.4-10.2); CARBON DIOXIDE 24 mmol/L (22-30); CHLORIDE 109 mmol/L (98-107); CREATININE RESULT 1.38 mg/dL (0.52-1.25); GLUCOSE 136 mg/dL (75-110); MAGNESIUM 2.3 mg/dL (1.6-2.3); POTASSIUM 3.6 mmol/L (3.6-5.0); SODIUM 142.4 mmol/L (137-145)
[2017-04-18] MEDS: NORMAL SALINE 100 ML with INSULIN REGULAR, HUMAN 100 UNIT IV PRN ×2 (05:45)
[2017-04-18] MEDS ORDERED: GLUCAGON,HUMAN RECOMB 1 MG INJ IM PRN ×2 (06:43→06:44)
[2017-04-18] MEDS ORDERED: DEXTROSE 40% GEL 15 GM TUBE PO PRN ×4 (06:43→06:44)
[2017-04-18] MEDS ORDERED: DEXTROSE 50%-WATER 25 GM/50 ML DISP.SYRIN IV PRN ×4 (06:43→06:44)
[2017-04-18 07:16] LABS: URINE BARBITURATES SCREEN NEGATIVE; URINE METHADONE SCREEN NEGATIVE; URINE OPIATES LOW NEGATIVE; URINE PHENCYCLIDINE SCREEN NEGATIVE
[2017-04-18] MEDS: HUM INSULIN NPH/REG INSULIN HM 100 UNIT/1 ML 3 ML SUBCUT SCH ×2 (08:25→17:46)
[2017-04-18] MEDS: FAMOTIDINE 20 MG TABLET PO SCH ×2 (09:15→22:58)
[2017-04-18] MEDS: ENOXAPARIN SODIUM INJ 40 MG/0.4 ML DISP.SYRIN SUBCUT SCH (09:19)
[2017-04-18] MEDS: NORMAL SALINE 1000 ML 1,000 ML IV PRN ×2 (09:20→20:49)
[2017-04-18 11:23] LABS: ANION GAP 15 (5-19); BLOOD UREA NITROGEN 27 mg/dL (7-20); CALCIUM 8.2 mg/dL (8.4-10.2); CARBON DIOXIDE 18 mmol/L (22-30); CHLORIDE 107 mmol/L (98-107); GLUCOSE 247 mg/dL (75-110); POTASSIUM 4.2 mmol/L (3.6-5.0)
[2017-04-18] MEDS: OXYCODONE HCL IR 5 MG TABLET PO PRN ×2 (11:44→17:48)
[2017-04-18] MEDS: INSULIN REG, HUMAN 100 UNIT/ML 3 ML VIAL (PYX) SUBCUT PRN ×2 (11:45→17:47)
--- NOTE | 2017-04-18 12:03 | PDOC PROGRESS REPORT ---
Subjective Progress Note for:: 04/18/17 Subjective:: Patient had an episode of confusion last night requiring restraints because he tried to pull out his central line. Physical Exam Vital Signs: Temp Pulse Resp BP Pulse Ox 100.2 F 106 H 25 H 141/83 H 99 04/18/17 10:13 04/18/17 08:00 04/18/17 10:13 04/18/17 10:13 04/18/17 10:13 Intake & Output 04/17/17 04/18/17 04/19/17 06:59 06:59 06:59 Intake Total 1505 Output Total 2100 200 Balance -595 -200 Weight 96.2 kg General appearance: PRESENT: no acute distress Eye exam: PRESENT: conjunctiva pink. ABSENT: scleral icterus Mouth exam: PRESENT: moist, tongue midline Neck exam: ABSENT: JVD Respiratory exam: PRESENT: clear to auscultation juan ramon. ABSENT: rales, rhonchi, wheezes Cardiovascular exam: PRESENT: RRR. ABSENT: diastolic murmur, rubs, systolic murmur GI/Abdominal exam: PRESENT: normal bowel sounds, soft. ABSENT: distended, guarding, mass, organolmegaly, rebound, tenderness Extremities exam: ABSENT: calf tenderness, clubbing, pedal edema Neurological exam: PRESENT: alert, awake, oriented to person, CN II-XII grossly intact. ABSENT: oriented to place, oriented to time, oriented to situation, motor sensory deficit Psychiatric exam: PRESENT: flat affect Skin exam: PRESENT: dry, intact, warm. ABSENT: cyanosis, rash Results Laboratory Results: 04/18/17 05:10 04/18/17 09:20 04/17/17 04/17/17 04/18/17 19:10 22:55 01:10 WBC RBC Hgb Hct MCV MCH MCHC RDW Plt Count Carbonic Acid 1.19 HCO3/H2CO3 Ratio 19:1 ABG pH 7.39 ABG pCO2 39.7 ABG pO2 85.9 ABG HCO3 23.3 ABG O2 Saturation 96.4 ABG Base Excess -1.5 FiO2 ROOM AIR Sodium 135.9 L 138.3 Potassium 4.9 4.3 Chloride 101 102 Carbon Dioxide 9 L* 14 L Anion Gap 26 H 22 H BUN 37 H 38 H Creatinine 1.95 H 1.74 H Est GFR ( Amer) 48 L 55 L Est GFR (Non-Af Amer) 40 L 46 L Glucose 640 H* 491 H* Calcium 8.4 8.8 Magnesium 04/18/17 04/18/17 04/18/17 02:35 05:10 05:10 WBC 19.2 H RBC 3.30 L Hgb 8.5 L D Hct 25.5 L MCV 77 L D MCH 25.8 L MCHC 33.4 RDW 16.4 H Plt Count 296 Carbonic Acid HCO3/H2CO3 Ratio ABG pH ABG pCO2 ABG pO2 ABG HCO3 ABG O2 Saturation ABG Base Excess FiO2 Sodium 139.8 142.4 Potassium 3.9 3.6 Chloride 107 109 H Carbon Dioxide 23 24 Anion Gap 10 9 BUN 36 H 32 H Creatinine 1.54 H 1.38 H Est GFR ( Amer) > 60 > 60 Est GFR (Non-Af Amer) 53 L > 60 Glucose 230 H 136 H Calcium 8.3 L 8.2 L Magnesium 2.3 04/18/17 09:20 WBC RBC Hgb Hct MCV MCH MCHC RDW Plt Count Carbonic Acid HCO3/H2CO3 Ratio ABG pH ABG pCO2 ABG pO2 ABG HCO3 ABG O2 Saturation ABG Base Excess FiO2 Sodium 140.0 Potassium 4.2 Chloride 107 Carbon Dioxide 18 L Anion Gap 15 BUN 27 H Creatinine 1.40 H Est GFR ( Amer) > 60 Est GFR (Non-Af Amer) 59 L Glucose 247 H Calcium 8.2 L Magnesium Impressions: Chest X-Ray 04/17/17 00:00 IMPRESSION: Left subclavian central line. No acute cardiopulmonary findings; limitation. Assessment & Plan - Diagnosis (1) DKA (diabetic ketoacidoses) Qualifiers: Diabetes mellitus type: type 1 Diabetes mellitus complication detail: without coma Qualified Code(s): E10.10 - Type 1 diabetes mellitus with ketoacidosis without coma Is this a current diagnosis for this admission?: YesPlan: Has a long history of complaints. He also has had nausea with decreased p.o. intake for the last 3 days at the most likely cause for his DKA. Patient insulin drip has been stopped as his anion gap has resolved. (2) Hypertension Qualifiers: Hypertension type: essential hypertension Qualified Code(s): I10 - Essential (primary) hypertension Is this a current diagnosis for this admission?: YesPlan: Has been on Norvasc in the past but has been noncompliant with medication. (3) ARF (acute renal failure) Qualifiers: Acute renal failure type: unspecified Qualified Code(s): N17.9 - Acute kidney failure, unspecified Is this a current diagnosis for this admission?: YesPlan: Patient's creatinine is elevated. This should correct with IV fluids. - Time Time Spent with patient: 25-34 minutes - Inpatient Certification Medical Necessity: Need Close Monitoring Due to Risk of Patient Decompensation, Need For IV Fluids
[2017-04-18] MEDS ORDERED: HALOPERIDOL LACTATE INJ 5 MG/1 ML VIAL ONE ×2 (14:07→14:08)
[2017-04-18] MEDS ORDERED: ONDANSETRON 4 MG TAB.RAPDIS PO PRN (14:38)
[2017-04-18] MEDS ORDERED: ONDANSETRON HCL INJ/PF 4 MG/2 ML SDV IV PRN (14:38)
[2017-04-18] MEDS ORDERED: LORAZEPAM INJ 2 MG/1 ML VIAL ONE (15:57)
[2017-04-18] MEDS: HALOPERIDOL LACTATE INJ 5 MG/1 ML VIAL IM PRN ×2 (17:48→22:59)
[2017-04-18] MEDS: LORAZEPAM INJ 2 MG/1 ML VIAL IV PRN (20:59)
[2017-04-18 21:24] LABS: ANION GAP 12 (5-19); BLOOD UREA NITROGEN 19 mg/dL (7-20); CALCIUM 8.6 mg/dL (8.4-10.2); CARBON DIOXIDE 22 mmol/L (22-30); CHLORIDE 105 mmol/L (98-107); CREATININE RESULT 1.35 mg/dL (0.52-1.25); GLUCOSE 212 mg/dL (75-110); POTASSIUM 3.8 mmol/L (3.6-5.0); SODIUM 138.5 mmol/L (137-145)
[2017-04-18] MEDS: HYDRALAZINE HCL INJ/PF 20 MG/1 ML SDV IV PRN (22:59)
[2017-04-19] MEDS: OXYCODONE HCL IR 5 MG TABLET PO PRN ×2 (00:41→17:09)
[2017-04-19] MEDS: NORMAL SALINE 1000 ML 1,000 ML IV PRN ×4 (03:15→23:20)
[2017-04-19] MEDS ORDERED: AMLODIPINE BESYLATE 10 MG TABLET PO ONE (05:00)
[2017-04-19 05:28] LABS: ANION GAP 13 (5-19); BLOOD UREA NITROGEN 12 mg/dL (7-20); CALCIUM 8.3 mg/dL (8.4-10.2); CARBON DIOXIDE 22 mmol/L (22-30); CHLORIDE 106 mmol/L (98-107); CREATININE RESULT 1.16 mg/dL (0.52-1.25); GLUCOSE 112 mg/dL (75-110); POTASSIUM 3.2 mmol/L (3.6-5.0); SODIUM 140.5 mmol/L (137-145)
[2017-04-19] MEDS ORDERED: POTASSI CL 20 MEQ/50 ML RIDER 20 MEQ/50 ML RTUPB IV ONE (08:00)
[2017-04-19] MEDS: HUM INSULIN NPH/REG INSULIN HM 100 UNIT/1 ML 3 ML SUBCUT SCH ×2 (08:10→17:10)
[2017-04-19] MEDS: ENOXAPARIN SODIUM INJ 40 MG/0.4 ML DISP.SYRIN SUBCUT SCH (09:15)
[2017-04-19] MEDS: FAMOTIDINE 20 MG TABLET PO SCH ×2 (09:28→21:08)
[2017-04-19] MEDS: LORAZEPAM INJ 2 MG/1 ML VIAL IV PRN ×2 (10:04→19:40)
[2017-04-19] MEDS: INSULIN REG, HUMAN 100 UNIT/ML 3 ML VIAL (PYX) SUBCUT PRN (11:50)
[2017-04-19] MEDS: GABAPENTIN 300 MG CAPSULE PO SCH ×2 (13:07→17:10)
[2017-04-19] MEDS: HYDRALAZINE HCL INJ/PF 20 MG/1 ML SDV IV PRN (13:09)
--- NOTE | 2017-04-19 13:09 | PDOC PROGRESS REPORT ---
Subjective Progress Note for:: 04/19/17 Subjective:: Patient is still confused this morning. Physical Exam Vital Signs: Temp Pulse Resp BP Pulse Ox 97.8 F 110 H 18 132/106 H 100 04/19/17 07:55 04/19/17 07:55 04/19/17 07:55 04/19/17 07:55 04/19/17 07:55 Intake & Output 04/18/17 04/19/17 04/20/17 06:59 06:59 06:59 Intake Total 1505 4799 Output Total 2100 4450 Balance -595 349 Weight 96.2 kg 94.8 kg General appearance: PRESENT: no acute distress Eye exam: PRESENT: conjunctiva pink. ABSENT: scleral icterus Mouth exam: PRESENT: moist, tongue midline Neck exam: ABSENT: JVD Respiratory exam: PRESENT: clear to auscultation juan ramon. ABSENT: rales, rhonchi, wheezes Cardiovascular exam: PRESENT: RRR. ABSENT: diastolic murmur, rubs, systolic murmur GI/Abdominal exam: PRESENT: normal bowel sounds, soft. ABSENT: distended, guarding, mass, organolmegaly, rebound, tenderness Extremities exam: ABSENT: calf tenderness, clubbing, pedal edema Neurological exam: PRESENT: oriented to person. ABSENT: oriented to place, oriented to time, oriented to situation Psychiatric exam: PRESENT: flat affect Skin exam: PRESENT: dry, intact, warm. ABSENT: cyanosis, rash Results Laboratory Results: 04/18/17 05:10 04/19/17 04:37 04/18/17 04/19/17 20:14 04:37 Sodium 138.5 140.5 Potassium 3.8 3.2 L Chloride 105 106 Carbon Dioxide 22 22 Anion Gap 12 13 BUN 19 12 Creatinine 1.35 H 1.16 Est GFR ( Amer) > 60 > 60 Est GFR (Non-Af Amer) > 60 > 60 Glucose 212 H 112 H Calcium 8.6 8.3 L Impressions: Chest X-Ray 04/17/17 00:00 IMPRESSION: Left subclavian central line. No acute cardiopulmonary findings; limitation. Assessment & Plan - Diagnosis (1) DKA (diabetic ketoacidoses) Qualifiers: Diabetes mellitus type: type 1 Diabetes mellitus complication detail: without coma Qualified Code(s): E10.10 - Type 1 diabetes mellitus with ketoacidosis without coma Is this a current diagnosis for this admission?: YesPlan: Resolved. Has a long history of noncompliance. He also has had nausea with decreased p.o. intake for the last 3 days at the most likely cause for his DKA. (2) Hypertension Qualifiers: Hypertension type: essential hypertension Qualified Code(s): I10 - Essential (primary) hypertension Is this a current diagnosis for this admission?: YesPlan: Has been on Norvasc in the past but has been noncompliant with medication. (3) ARF (acute renal failure) Qualifiers: Acute renal failure type: unspecified Qualified Code(s): N17.9 - Acute kidney failure, unspecified Is this a current diagnosis for this admission?: YesPlan: resolved. (4) Depression Is this a current diagnosis for this admission?: YesPlan: Restart his psychiatric medications. - Time Time Spent with patient: 25-34 minutes - Inpatient Certification Medical Necessity: Need Close Monitoring Due to Risk of Patient Decompensation
[2017-04-19] MEDS: METOPROLOL TARTRATE PF/INJ 5 MG/5 ML SDV IV PRN (20:53)
[2017-04-19] MEDS: BUSPIRONE HCL 10 MG TABLET PO SCH (21:07)
[2017-04-19] MEDS: QUETIAPINE FUMARATE 100 MG TABLET PO SCH (21:08)
[2017-04-19] MEDS ORDERED: (PENDING PHARMACY ID) (Quetiapine Fumarate [Seroquel] 300 MG) PO SCH (22:00)
[2017-04-19] MEDS ORDERED: (PENDING PHARMACY ID) (Buspirone Hcl [Buspirone Hcl] 7.5 MG) PO SCH (22:00)
[2017-04-20] MEDS: HYDRALAZINE HCL INJ/PF 20 MG/1 ML SDV IV PRN ×2 (00:26→06:33)
[2017-04-20] MEDS: GABAPENTIN 300 MG CAPSULE PO SCH ×5 (00:53→23:56)
[2017-04-20] MEDS: METOPROLOL TARTRATE PF/INJ 5 MG/5 ML SDV IV PRN ×2 (02:15→21:16)
[2017-04-20 04:16] LABS: ABSOLUTE BASOPHILS # (AUTO) 0.1 10^3/uL (0.0-0.2); ABSOLUTE EOSINOPHILS # (AUTO) 0.1 10^3/uL (0.0-0.6); ABSOLUTE LYMPHOCYTES (AUTO) 1.2 10^3/uL (0.5-4.7); ABSOLUTE MONOCYTES (AUTO) 1.1 10^3/uL (0.1-1.4); ABSOLUTE NEUT (AUTO) 7.3 10^3/uL (1.7-8.2); BASOPHILS % (AUTO) 0.7 % (0-2); EOSINOPHILS % (AUTO) 1.2 % (0-6); HEMATOCRIT 28.2 % (37.9-51.0); HEMOGLOBIN 9.3 g/dL (13.5-17.0); HGB HCT DIFFERENCE -0.3; LYMPHOCYTES % (AUTO) 12.2 % (13-45); MEAN CORPUSCULAR HGB CONC 33.1 g/dL (32.0-36.0); MEAN CORPUSCULAR VOLUME 79 fl (80-97); MONOCYTES % (AUTO) 11.2 % (3-13); RED BLOOD COUNT 3.59 10^6/uL (4.35-5.55); RED CELL DISTRIBUTION WIDTH 17.2 % (11.5-14.0); SEGMENTED NEUTROPHILS % (AUTO) 74.7 % (42-78); WHITE BLOOD COUNT 9.7 10^3/uL (4.0-10.5)
[2017-04-20 04:31] LABS: ANION GAP 11 (5-19); BLOOD UREA NITROGEN 5 mg/dL (7-20); CALCIUM 7.9 mg/dL (8.4-10.2); CARBON DIOXIDE 24 mmol/L (22-30); CHLORIDE 105 mmol/L (98-107); CREATININE RESULT 1.04 mg/dL (0.52-1.25); GLUCOSE 135 mg/dL (75-110); SODIUM 139.6 mmol/L (137-145)
[2017-04-20 04:39] LABS: POTASSIUM 2.8 mmol/L (3.6-5.0)
[2017-04-20] MEDS ORDERED: POTASSI CL 20 MEQ/50 ML RIDER 20 MEQ/50 ML RTUPB IV ONE (05:21)
[2017-04-20] MEDS ORDERED: POTASSIUM CHLORIDE 20 MEQ/50 ML RTU IV SCH (05:30)
[2017-04-20] MEDS ORDERED: POTASSIUM CHLORIDE 10 MEQ TABLET.SA PO ONE (06:00)
[2017-04-20] MEDS: NORMAL SALINE 1000 ML 1,000 ML IV PRN (06:40)
[2017-04-20] MEDS ORDERED: POTASSI CL 20 MEQ/50 ML RIDER 20 MEQ/50 ML RTUPB IV SCH (07:15)
[2017-04-20] MEDS: OXYCODONE HCL IR 5 MG TABLET PO PRN ×3 (09:10→23:57)
[2017-04-20] MEDS: FAMOTIDINE 20 MG TABLET PO SCH ×2 (09:11→21:17)
[2017-04-20] MEDS: AMLODIPINE BESYLATE 10 MG TABLET PO SCH (09:11)
[2017-04-20] MEDS: BUSPIRONE HCL 10 MG TABLET PO SCH ×2 (09:13→21:17)
[2017-04-20] MEDS: HUM INSULIN NPH/REG INSULIN HM 100 UNIT/1 ML 3 ML SUBCUT SCH ×2 (09:13→17:13)
[2017-04-20] MEDS: ENOXAPARIN SODIUM INJ 40 MG/0.4 ML DISP.SYRIN SUBCUT SCH (09:14)
--- NOTE | 2017-04-20 09:40 | PDOC PROGRESS REPORT ---
Subjective Progress Note for:: 04/20/17 Subjective:: Patient is oriented Physical Exam Vital Signs: Temp Pulse Resp BP Pulse Ox 99.0 F 115 H 20 163/92 H 98 04/20/17 07:23 04/20/17 07:23 04/20/17 07:23 04/20/17 07:23 04/20/17 07:23 Intake & Output 04/19/17 04/20/17 04/21/17 06:59 06:59 06:59 Intake Total 4799 6430 Output Total 4450 4190 Balance 349 230 Weight 94.8 kg 93.3 kg General appearance: PRESENT: no acute distress Eye exam: PRESENT: conjunctiva pink. ABSENT: scleral icterus Ear exam: PRESENT: normal external ear exam Neck exam: ABSENT: carotid bruit, JVD, lymphadenopathy, thyromegaly Respiratory exam: PRESENT: clear to auscultation juan ramon. ABSENT: rales, rhonchi, wheezes Cardiovascular exam: PRESENT: RRR. ABSENT: diastolic murmur, rubs, systolic murmur GI/Abdominal exam: PRESENT: normal bowel sounds, soft. ABSENT: distended, guarding, mass, organolmegaly, rebound, tenderness Extremities exam: ABSENT: calf tenderness, clubbing, pedal edema Neurological exam: PRESENT: alert, awake, oriented to person, oriented to place , oriented to time, oriented to situation Psychiatric exam: PRESENT: flat affect Skin exam: PRESENT: dry, intact, warm. ABSENT: cyanosis, rash Results Laboratory Results: 04/20/17 04:05 04/20/17 04:05 04/20/17 04/20/17 04:05 04:05 WBC 9.7 RBC 3.59 L Hgb 9.3 L Hct 28.2 L MCV 79 L MCH 26.0 L MCHC 33.1 RDW 17.2 H Plt Count 226 Seg Neutrophils % 74.7 Lymphocytes % 12.2 L Monocytes % 11.2 Eosinophils % 1.2 Basophils % 0.7 Absolute Neutrophils 7.3 Absolute Lymphocytes 1.2 Absolute Monocytes 1.1 Absolute Eosinophils 0.1 Absolute Basophils 0.1 Sodium 139.6 Potassium 2.8 L* Chloride 105 Carbon Dioxide 24 Anion Gap 11 BUN 5 L Creatinine 1.04 Est GFR ( Amer) > 60 Est GFR (Non-Af Amer) > 60 Glucose 135 H Calcium 7.9 L Impressions: Chest X-Ray 04/17/17 00:00 IMPRESSION: Left subclavian central line. No acute cardiopulmonary findings; limitation. Assessment & Plan - Diagnosis (1) DKA (diabetic ketoacidoses) Qualifiers: Diabetes mellitus type: type 1 Diabetes mellitus complication detail: without coma Qualified Code(s): E10.10 - Type 1 diabetes mellitus with ketoacidosis without coma Is this a current diagnosis for this admission?: YesPlan: Resolved. Has a long history of noncompliance. He also has had nausea with decreased p.o. intake for the last 3 days at the most likely cause for his DKA. (2) Hypertension Qualifiers: Hypertension type: essential hypertension Qualified Code(s): I10 - Essential (primary) hypertension Is this a current diagnosis for this admission?: YesPlan: Has been on Norvasc in the past but has been noncompliant with medication. (3) ARF (acute renal failure) Qualifiers: Acute renal failure type: unspecified Qualified Code(s): N17.9 - Acute kidney failure, unspecified Is this a current diagnosis for this admission?: YesPlan: resolved. (4) Depression Is this a current diagnosis for this admission?: YesPlan: continue his psychiatric medications. (5) Hypokalemia Is this a current diagnosis for this admission?: YesPlan: Continue to replace and monitor. - Time Time Spent with patient: 25-34 minutes - Inpatient Certification Medical Necessity: Need Close Monitoring Due to Risk of Patient Decompensation
[2017-04-20] MEDS ORDERED: LITHIUM CARBONATE 450 MG PO SCH (10:00)
[2017-04-20] MEDS: INSULIN REG, HUMAN 100 UNIT/ML 3 ML VIAL (PYX) SUBCUT PRN (11:31)
[2017-04-20] MEDS ORDERED: HUM INSULIN NPH/REG INSULIN HM 100 UNIT/1 ML 3 ML SUBCUT ONE (16:00)
[2017-04-20] MEDS: QUETIAPINE FUMARATE 100 MG TABLET PO SCH (21:18)
[2017-04-21] MEDS: GABAPENTIN 300 MG CAPSULE PO SCH (05:37)
[2017-04-21] MEDS: OXYCODONE HCL IR 5 MG TABLET PO PRN (05:38)
[2017-04-21] MEDS: METOPROLOL TARTRATE PF/INJ 5 MG/5 ML SDV IV PRN (06:14)
[2017-04-21 06:39] LABS: ABSOLUTE BASOPHILS # (AUTO) 0.1 10^3/uL (0.0-0.2); ABSOLUTE EOSINOPHILS # (AUTO) 0.2 10^3/uL (0.0-0.6); ABSOLUTE LYMPHOCYTES (AUTO) 1.6 10^3/uL (0.5-4.7); ABSOLUTE MONOCYTES (AUTO) 0.8 10^3/uL (0.1-1.4); ABSOLUTE NEUT (AUTO) 4.7 10^3/uL (1.7-8.2); HEMOGLOBIN 9.2 g/dL (13.5-17.0); HGB HCT DIFFERENCE -0.4; LYMPHOCYTES % (AUTO) 21.9 % (13-45); MEAN CORPUSCULAR HEMOGLOBIN 25.9 pg (27.0-33.4); MEAN CORPUSCULAR HGB CONC 32.9 g/dL (32.0-36.0); MEAN CORPUSCULAR VOLUME 79 fl (80-97); MONOCYTES % (AUTO) 11.3 % (3-13); RED BLOOD COUNT 3.56 10^6/uL (4.35-5.55); SEGMENTED NEUTROPHILS % (AUTO) 62.8 % (42-78); WHITE BLOOD COUNT 7.5 10^3/uL (4.0-10.5)
[2017-04-21 06:52] LABS: ANION GAP 9 (5-19); BLOOD UREA NITROGEN 5 mg/dL (7-20); CALCIUM 8.2 mg/dL (8.4-10.2); CARBON DIOXIDE 29 mmol/L (22-30); CHLORIDE 102 mmol/L (98-107); CREATININE RESULT 1.26 mg/dL (0.52-1.25); GLUCOSE 103 mg/dL (75-110); SODIUM 139.6 mmol/L (137-145)
[2017-04-21 06:57] LABS: POTASSIUM 2.9 mmol/L (3.6-5.0)
[2017-04-21 08:13] VITALS: BP 149/101
[2017-04-21] MEDS ORDERED: POTASSI CL 20 MEQ/50 ML RIDER 20 MEQ/50 ML RTUPB IV SCH (09:00)
[2017-04-21] MEDS ORDERED: HUM INSULIN NPH/REG INSULIN HM 100 UNIT/1 ML 3 ML SUBCUT ONE (09:00)
[2017-04-21] MEDS: AMLODIPINE BESYLATE 10 MG TABLET PO SCH (09:03)
[2017-04-21] MEDS: FAMOTIDINE 20 MG TABLET PO SCH (09:03)
[2017-04-21] MEDS: BUSPIRONE HCL 10 MG TABLET PO SCH (09:03)
--- NOTE | 2017-04-21 09:10 | PDOC PROGRESS REPORT ---
Subjective Progress Note for:: 04/21/17 Subjective:: Patient is oriented Physical Exam Vital Signs: Temp Pulse Resp BP Pulse Ox 98.1 F 105 H 12 149/101 H 99 04/21/17 07:19 04/21/17 07:19 04/21/17 07:19 04/21/17 07:19 04/21/17 07:19 Intake & Output 04/20/17 04/21/17 04/22/17 06:59 06:59 06:59 Intake Total 6430 1341 Output Total 4252 4474 Balance 230 -3084 Weight 93.3 kg 99.1 kg General appearance: PRESENT: no acute distress Eye exam: PRESENT: conjunctiva pink. ABSENT: scleral icterus Mouth exam: PRESENT: moist, tongue midline Neck exam: ABSENT: JVD Respiratory exam: PRESENT: clear to auscultation juan ramon. ABSENT: rales, rhonchi, wheezes Cardiovascular exam: PRESENT: RRR. ABSENT: diastolic murmur, rubs, systolic murmur GI/Abdominal exam: PRESENT: normal bowel sounds, soft. ABSENT: distended, guarding, mass, organolmegaly, rebound, tenderness Extremities exam: ABSENT: calf tenderness, clubbing, pedal edema Neurological exam: PRESENT: awake, oriented to person, oriented to place, oriented to time. ABSENT: oriented to situation Psychiatric exam: PRESENT: flat affect Skin exam: PRESENT: dry, intact, warm. ABSENT: cyanosis, rash Results Laboratory Results: 04/21/17 06:15 04/21/17 06:15 04/21/17 04/21/17 06:15 06:15 WBC 7.5 RBC 3.56 L Hgb 9.2 L Hct 28.0 L MCV 79 L MCH 25.9 L MCHC 32.9 RDW 17.0 H Plt Count 220 Seg Neutrophils % 62.8 Lymphocytes % 21.9 Monocytes % 11.3 Eosinophils % 3.0 Basophils % 1.0 Absolute Neutrophils 4.7 Absolute Lymphocytes 1.6 Absolute Monocytes 0.8 Absolute Eosinophils 0.2 Absolute Basophils 0.1 Sodium 139.6 Potassium 2.9 L* Chloride 102 Carbon Dioxide 29 Anion Gap 9 BUN 5 L Creatinine 1.26 H Est GFR ( Amer) > 60 Est GFR (Non-Af Amer) > 60 Glucose 103 Calcium 8.2 L Impressions: Chest X-Ray 04/17/17 00:00 IMPRESSION: Left subclavian central line. No acute cardiopulmonary findings; limitation. Assessment & Plan - Diagnosis (1) DKA (diabetic ketoacidoses) Qualifiers: Diabetes mellitus type: type 1 Diabetes mellitus complication detail: without coma Qualified Code(s): E10.10 - Type 1 diabetes mellitus with ketoacidosis without coma Is this a current diagnosis for this admission?: YesPlan: Resolved. Has a long history of noncompliance. He also has had nausea with decreased p.o. intake for the last 3 days at the most likely cause for his DKA. (2) Hypertension Qualifiers: Hypertension type: essential hypertension Qualified Code(s): I10 - Essential (primary) hypertension Is this a current diagnosis for this admission?: YesPlan: Has been on Norvasc in the past but has been noncompliant with medication. (3) ARF (acute renal failure) Qualifiers: Acute renal failure type: unspecified Qualified Code(s): N17.9 - Acute kidney failure, unspecified Is this a current diagnosis for this admission?: YesPlan: resolved. (4) Depression Is this a current diagnosis for this admission?: YesPlan: continue his psychiatric medications. (5) Hypokalemia Is this a current diagnosis for this admission?: YesPlan: Continue to replace and monitor. - Time Time Spent with patient: 15-24 minutes - Plan Summary Plan Summary: We will replace the patient's potassium today and if we can get it normalized by this afternoon, he may be able to be discharged to home
[2017-04-21] MEDS: ENOXAPARIN SODIUM INJ 40 MG/0.4 ML DISP.SYRIN SUBCUT SCH (09:16)
--- NOTE | 2017-04-21 13:54 | PDOC DISCHARGE SUMMARY ---
General - Admit/Disc Date/PCP Admission Date/Primary Care Provider: 04/17/17 16:42 JARON ANN MD Discharge Date: 04/21/17 - Discharge Diagnosis (1) DKA (diabetic ketoacidoses) Is this a current diagnosis for this admission?: Yes (2) Hypertension Is this a current diagnosis for this admission?: Yes (3) ARF (acute renal failure) Is this a current diagnosis for this admission?: Yes (4) Depression Is this a current diagnosis for this admission?: Yes (5) Hypokalemia Is this a current diagnosis for this admission?: Yes - Additional Information Resuscitation Status: Full Code Home Medications: Insulin Aspart [Novolog Flexpen] 0 units SQ MEALS PRN 04/17/17 Insulin Detemir [Levemir Flextouch] 40 units SQ QHS 04/17/17 Amlodipine Besylate [Norvasc 5 mg Tablet] 5 mg PO DAILY 04/19/17 Atenolol [Tenormin] 25 mg PO DAILY 04/19/17 Buspirone HCl [Buspirone HCl] 7.5 mg PO Q12 04/19/17 Dextrose [Glucose] 1 each PO ASDIR PRN 04/19/17 Gabapentin [Gabapentin] 300 mg PO Q6 04/19/17 [place] Carbonate [[place] Carbonate ER] 450 mg PO DAILY 04/19/17 Quetiapine Fumarate [Seroquel] 300 mg PO QHS 04/19/17 Trazodone HCl [Desyrel] 100 mg PO HSP PRN 04/19/17 History of Present Illness History of Present Illness: LENA SCHULZ is a 31 year old male known to me from previous admissions to the hospitalist service who presents with DKA. Patient reports over the last 3 days he had nausea and decreased p.o. intake. He reports he has been compliant with his insulin however when asked what he is taking he could not recall. He does have a history of noncompliance. He denies having any fevers or chills. He denies any visual or hearing changes. Denies any shortness of breath or chest pain. Denies any abdominal pain. He has had the nausea for the last 3 days. Denies any melena or bright red blood per rectum. Denies any dysuria. Denies any skin rash. Hospital Course Hospital Course: The patient had correction in his diabetic ketoacidosis however he still had hypokalemia. The patient left AGAINST MEDICAL ADVICE. Physical Exam Vital Signs: Temp Pulse Resp BP Pulse Ox 98.1 F 105 H 12 149/101 H 99 04/21/17 07:19 04/21/17 07:19 04/21/17 07:19 04/21/17 07:19 04/21/17 07:19 Intake & Output 04/20/17 04/21/17 04/22/17 06:59 06:59 06:59 Intake Total 6430 1341 Output Total 6200 4425 Balance 230 -3084 Weight 93.3 kg 99.1 kg General appearance: PRESENT: no acute distress Eye exam: PRESENT: conjunctiva pink. ABSENT: scleral icterus Mouth exam: PRESENT: moist, tongue midline Neck exam: ABSENT: JVD Respiratory exam: PRESENT: clear to auscultation juan ramon. ABSENT: rales, rhonchi, wheezes Cardiovascular exam: PRESENT: RRR. ABSENT: diastolic murmur, rubs, systolic murmur GI/Abdominal exam: PRESENT: normal bowel sounds, soft. ABSENT: distended, guarding, mass, organolmegaly, rebound, tenderness Extremities exam: ABSENT: calf tenderness, clubbing, pedal edema Neurological exam: PRESENT: alert, awake, oriented to person, oriented to place , oriented to time, oriented to situation Psychiatric exam: PRESENT: flat affect Skin exam: PRESENT: dry, intact, warm. ABSENT: cyanosis, rash Results Laboratory Results: 04/21/17 06:15 04/21/17 06:15 04/21/17 04/21/17 06:15 06:15 WBC 7.5 RBC 3.56 L Hgb 9.2 L Hct 28.0 L MCV 79 L MCH 25.9 L MCHC 32.9 RDW 17.0 H Plt Count 220 Seg Neutrophils % 62.8 Lymphocytes % 21.9 Monocytes % 11.3 Eosinophils % 3.0 Basophils % 1.0 Absolute Neutrophils 4.7 Absolute Lymphocytes 1.6 Absolute Monocytes 0.8 Absolute Eosinophils 0.2 Absolute Basophils 0.1 Sodium 139.6 Potassium 2.9 L* Chloride 102 Carbon Dioxide 29 Anion Gap 9 BUN 5 L Creatinine 1.26 H Est GFR ( Amer) > 60 Est GFR (Non-Af Amer) > 60 Glucose 103 Calcium 8.2 L Impressions: Chest X-Ray 04/17/17 00:00 IMPRESSION: Left subclavian central line. No acute cardiopulmonary findings; limitation. Qualifiers PATEINT BEING DISCHARGED WITH ANY OF THE FOLLOWING DIAGNOSIS?: No Plan Discharge Plan: Will follow-up with his primary care Time Spent: Less than 30 Minutes
[2017-04-21] MEDS ORDERED: HUM INSULIN NPH/REG INSULIN HM 100 UNIT/1 ML 3 ML SUBCUT SCH (16:00)
== END 2017-04-21 09:52 | disposition left against medical advice (07) | DRG 638 ==
LOC: ER 10:51 → EH 16:42 → UNDOADMIN 16:50 → 3W 18:50 → ICU 22:25 → 3N 04-18 10:51
PROVIDERS: ADMIT Family Medicine; ATTEND Family Medicine
PROC: 02HV33Z Insertion of Infusion Device into Superior Vena Cava, Percutaneous Approach (ICD-10-PCS; principal; 2017-04-17)
DX: E10.10 Type 1 diabetes mellitus with ketoacidosis without coma (principal); N17.9 Acute kidney failure, unspecified; F32.9 Major depressive disorder, single episode, unspecified; E87.6 Hypokalemia; I10 Essential (primary) hypertension; Z53.21 Procedure and treatment not carried out due to patient leaving prior to being seen by health care provider; I87.2 Venous insufficiency (chronic) (peripheral); Z79.4 Long term (current) use of insulin; Z79.899 Other long term (current) drug therapy; Z90.49 Acquired absence of other specified parts of digestive tract; Z83.3 Family history of diabetes mellitus; Z82.49 Family history of ischemic heart disease and other diseases of the circulatory system; Z78.1 Physical restraint status; Z91.19 Patient's noncompliance with other medical treatment and regimen
CPT/HCPCS: 36415; 71010; 80048; 80053; 80307; 81001; 82803; 82962; 83690; 83735; 83930; 85025; 85027; 96374; 99291; C1751; J0360; J1630; J1650; J1815; J2060; J2765; J3480; J3490; J7030; S0119

== ENCOUNTER 2017-04-23 22:48 | Observation (INO) | payer MEDICAID ==
[2017-04-23] MEDS ORDERED: NORMAL SALINE 1000 ML 1,000 ML IV ONE ×2 (23:14)
--- NOTE | 2017-04-23 23:17 | ER Document Report ---
ED Medical Screen (RME) - General Chief Complaint: Urinary Problem Stated Complaint: BLOOD IN URINE Time Seen by Provider: 04/23/17 23:11 Notes: 31-year-old type I diabetic with chief complaint of vomiting 6, blood in his urine, and chest pain which started just before he started vomiting. He left AGAINST MEDICAL ADVICE on 04/21/2017 When he had been admitted for DKA. He admits that he did have a Sorensen catheter while he was here, he denies flank pain or history of kidney stones. He admits that he has not taken any insulin and he does have a history of noncompliance. TRAVEL OUTSIDE OF THE [place] IN LAST 30 DAYS: No - Related Data Allergies/Adverse Reactions: No Known Allergies Allergy (Verified 03/07/17 16:50) Past Medical History - Social History Family history: Reviewed & Not Pertinent - Past Medical History Cardiac Medical History: Reports: Hx Hypertension Denies: Hx Congestive Heart Failure, Hx DVT, Hx Heart Attack, Hx Hypercholesterolemia, Hx Pulmonary Embolism Pulmonary Medical History: Reports: Hx Asthma - as child Denies: Hx COPD, Hx Sleep Apnea Neurological Medical History: Reports: Hx Migraine. Denies: Hx Seizures Endocrine Medical History: Reports: Hx Diabetes Mellitus Type 1. Denies: Hx Diabetes Mellitus Type 2, Hx Hyperthyroidism, Hx Hypothyroidism Renal/ Medical History: Denies: Hx Peritoneal Dialysis GI Medical History: Denies: Hx Cirrhosis, Hx Gastroesophageal Reflux Disease, Hx Hepatitis Musculoskeltal Medical History: Denies Hx Arthritis Psychiatric Medical History: Reports: Hx Anxiety, Hx Depression, Hx Schizophrenia Infectious Medical History: Denies: Hx C-Diff, Hx Hepatitis, Hx MRSA Past Surgical History: Reports: Hx Appendectomy, Hx Oral Surgery - wisdom teeth , Other - [place] teeth extraction - Immunizations Hx Diphtheria, Pertussis, Tetanus Vaccination: Yes Physical Exam - Vital signs Vitals: Temp Pulse Resp BP Pulse Ox 98.6 F 125 H 18 177/94 H 100 04/23/17 22:58 04/23/17 22:58 04/23/17 22:58 04/23/17 22:58 04/23/17 22:58 - Cardiovascular Rhythm: Regular, Tachycardia Heart sounds: Normal auscultation, S1 appreciated, S2 appreciated - Abdominal Tenderness: Tender - mild generalized tenderness Course - Re-evaluation Re-evalutation: Patient tachycardic, unwell appearing, symptoms and exam consistent with DKA and vomiting. Upgraded to yellow, patient will be placed immediately in a room. - Vital Signs Vital signs: Temp Pulse Resp BP Pulse Ox 98.6 F 125 H 18 177/94 H 100 04/23/17 22:58 04/23/17 22:58 04/23/17 22:58 04/23/17 22:58 04/23/17 22:58
--- NOTE | 2017-04-23 23:32 | RADIOLOGY REPORT (SQ) ---
EXAM DESCRIPTION: CHEST SINGLE VIEW COMPLETED DATE/TIME: 04/23/2017 11:25 pm REASON FOR STUDY: chest pain COMPARISON: 09/09/2016 EXAM PARAMETERS: NUMBER OF VIEWS: One view. TECHNIQUE: Single frontal radiographic view of the chest acquired. RADIATION DOSE: NA LIMITATIONS: None. FINDINGS: LUNGS AND PLEURA: No opacities, masses or pneumothorax. No pleural effusion. MEDIASTINUM AND HILAR STRUCTURES: No masses. Contour normal. HEART AND VASCULAR STRUCTURES: Heart normal in size. Normal vasculature. BONES: No acute findings. HARDWARE: None in the chest. OTHER: No other significant finding. IMPRESSION: NO ACUTE RADIOGRAPHIC FINDING IN THE CHEST. TECHNICAL DOCUMENTATION: JOB ID: [id number]
[2017-04-23] MEDS ORDERED: ONDANSETRON HCL INJ/PF 4 MG/2 ML SDV IV ONE (23:33)
--- NOTE | 2017-04-23 23:44 | ER Document Report ---
ED General - General Chief Complaint: Urinary Problem Stated Complaint: BLOOD IN URINE Time Seen by Provider: 04/23/17 23:11 Notes: The 31-year-old male who presents with complaint of blood in his urine. He was recently admitted to the hospital and left AMA a day and a half ago after being admitted for DKA. At that time to have a Sorensen catheter. Upon arrival he is also only vomiting and tachycardic. His blood sugar was over 500 in triage. He says he has been taking his insulin. He says he uses sliding scale insulin. He denies using a long-acting insulin such as Lantus. He denies any fevers. He does have some abdominal cramping. No other complaints at this time. TRAVEL OUTSIDE OF THE [place] IN LAST 30 DAYS: No - Related Data Allergies/Adverse Reactions: No Known Allergies Allergy (Verified 03/07/17 16:50) Past Medical History - Social History Smoking Status: Unknown if Ever Smoked Frequency of alcohol use: None Drug Abuse: None Family History: Reviewed & Not Pertinent, DM, Hypertension Patient has suicidal ideation: No Patient has homicidal ideation: No - Past Medical History Cardiac Medical History: Reports: Hx Hypertension Denies: Hx Congestive Heart Failure, Hx DVT, Hx Heart Attack, Hx Hypercholesterolemia, Hx Pulmonary Embolism Pulmonary Medical History: Reports: Hx Asthma - as child Denies: Hx COPD, Hx Sleep Apnea Neurological Medical History: Reports: Hx Migraine. Denies: Hx Seizures Endocrine Medical History: Reports: Hx Diabetes Mellitus Type 1. Denies: Hx Diabetes Mellitus Type 2, Hx Hyperthyroidism, Hx Hypothyroidism Renal/ Medical History: Denies: Hx Peritoneal Dialysis GI Medical History: Denies: Hx Cirrhosis, Hx Gastroesophageal Reflux Disease, Hx Hepatitis Musculoskeltal Medical History: Denies Hx Arthritis Psychiatric Medical History: Reports: Hx Anxiety, Hx Depression, Hx Schizophrenia Infectious Medical History: Denies: Hx C-Diff, Hx Hepatitis, Hx MRSA Past Surgical History: Reports: Hx Appendectomy, Hx Oral Surgery - wisdom teeth , Other - [place] teeth extraction - Immunizations Hx Diphtheria, Pertussis, Tetanus Vaccination: Yes Hx Pneumococcal Vaccination: 09/16/00 Review of Systems - Review of Systems Notes: My Normal Review Basic REVIEW OF SYSTEMS: CONSTITUTIONAL : Denies fever, chills, or sweats. Denies recent illness. EENT: Denies eye, ear, throat, or mouth pain or symptoms. Denies nasal or sinus congestion. CARDIOVASCULAR: Denies chest pain. RESPIRATORY: Denies cough, cold, or chest congestion. Denies shortness of breath, difficulty breathing, or wheezing. GASTROINTESTINAL: Denies abdominal pain. Denies nausea, vomiting, or diarrhea. Denies constipation. Last BM: GENITOURINARY: Hematuria MUSCULOSKELETAL: Denies neck or back pain or joint pain or swelling. SKIN: Denies rash or skin lesions. NEUROLOGICAL: Denies altered mental status or loss of consciousness. Denies headache. Denies weakness or paralysis or loss of use of either side. Denies problems with gait or speech. Denies sensory or motor loss. ALL OTHER SYSTEMS REVIEWED AND NEGATIVE. Physical Exam - Vital signs Vitals: Temp Pulse Resp BP Pulse Ox 98.6 F 125 H 18 177/94 H 100 04/23/17 22:58 04/23/17 22:58 04/23/17 22:58 04/23/17 22:58 04/23/17 22:58 Course - Re-evaluation Re-evalutation: 04/24/17 03:25 I have ordered repeat BMP is pending. I spoke with Dr. Subramanian, hospitalist, who agrees to admit the patient. Patient is receiving IV fluids and is on insulin drip. Patient's hematuria most likely is related to the fact that he recently had a Sorensen catheter in place while he was recently admitted. Dictation of this chart was performed using voice recognition software; therefore, there may be some unintended grammatical errors. - Vital Signs Vital signs: Temp Pulse Resp BP Pulse Ox 98.6 F 125 H 20 162/86 H 100 04/23/17 22:58 04/23/17 22:58 04/24/17 02:01 04/24/17 02:01 04/24/17 02:01 - Laboratory Result Diagrams: 04/23/17 23:22 04/23/17 23:22 Laboratory results interpreted by me: 04/23/17 04/23/17 04/24/17 23:22 23:22 00:33 WBC 11.9 H RBC 3.52 L Hgb 9.2 L Hct 28.4 L MCH 26.2 L RDW 17.4 H Lymphocytes % 11.0 L Absolute Neutrophils 9.1 H Sodium 131.6 L Chloride 91 L Carbon Dioxide 16 L Anion Gap 25 H BUN 22 H Creatinine 1.48 H Est GFR (Non-Af Amer) 55 L Glucose 552 H* POC Glucose Direct Bilirubin 0.6 H Urine Protein 100 H Urine Glucose (UA) >=500 H Urine Ketones 80 H Urine Blood MODERATE H 04/24/17 01:42 WBC RBC Hgb Hct MCH RDW Lymphocytes % Absolute Neutrophils Sodium Chloride Carbon Dioxide Anion Gap BUN Creatinine Est GFR (Non-Af Amer) Glucose POC Glucose 495 H* Direct Bilirubin Urine Protein Urine Glucose (UA) Urine Ketones Urine Blood - EKG Interpretation by Me Additional EKG results interpreted by me: 04/24/17 00:32 EKG is reviewed and interpreted by me. EKG shows sinus tachycardia with a rate of [address] segment elevation or depression. No ischemic T-wave inversions. CO interval, QRS duration, QTc intervals are within normal range. No old EKG available for comparison. Discharge - Discharge Clinical Impression: DKA (diabetic ketoacidoses) Qualifiers: Diabetes mellitus type: type 1 Diabetes mellitus complication detail: without coma Qualified Code(s): E10.10 - Type 1 diabetes mellitus with ketoacidosis without coma Condition: Stable Disposition: ADMITTED INPATIENT Admitting Provider: Hospitalist Unit Admitted: [facility]
[2017-04-23 23:50] LABS: ABSOLUTE BASOPHILS # (AUTO) 0.1 10^3/uL (0.0-0.2); ABSOLUTE EOSINOPHILS # (AUTO) 0.1 10^3/uL (0.0-0.6); ABSOLUTE LYMPHOCYTES (AUTO) 1.3 10^3/uL (0.5-4.7); ABSOLUTE MONOCYTES (AUTO) 1.4 10^3/uL (0.1-1.4); ABSOLUTE NEUT (AUTO) 9.1 10^3/uL (1.7-8.2); BASOPHILS % (AUTO) 0.8 % (0-2); EOSINOPHILS % (AUTO) 0.4 % (0-6); HEMATOCRIT 28.4 % (37.9-51.0); HEMOGLOBIN 9.2 g/dL (13.5-17.0); HGB HCT DIFFERENCE -0.8; MEAN CORPUSCULAR HEMOGLOBIN 26.2 pg (27.0-33.4); MEAN CORPUSCULAR HGB CONC 32.4 g/dL (32.0-36.0); MEAN CORPUSCULAR VOLUME 81 fl (80-97); MONOCYTES % (AUTO) 11.4 % (3-13); RED BLOOD COUNT 3.52 10^6/uL (4.35-5.55); RED CELL DISTRIBUTION WIDTH 17.4 % (11.5-14.0); SEGMENTED NEUTROPHILS % (AUTO) 76.4 % (42-78); WHITE BLOOD COUNT 11.9 10^3/uL (4.0-10.5)
[2017-04-24 00:04] LABS: ALANINE AMINOTRANSFERASE 37 U/L (21-72); ALBUMIN 3.6 g/dL (3.5-5.0); ALKALINE PHOSPHATASE 123 U/L (38-126); ASPARTATE AMINO TRANSFERASE 46 U/L (17-59); BILIRUBIN,DIRECT 0.6 mg/dL (0.0-0.4); BILIRUBIN,TOTAL 0.7 mg/dL (0.2-1.3); BLOOD UREA NITROGEN 22 mg/dL (7-20); CALCIUM 8.9 mg/dL (8.4-10.2); CARBON DIOXIDE 16 mmol/L (22-30); CHLORIDE 91 mmol/L (98-107); CREATININE RESULT 1.48 mg/dL (0.52-1.25); POTASSIUM 4.8 mmol/L (3.6-5.0); SODIUM 131.6 mmol/L (137-145); TOTAL PROTEIN 6.9 g/dL (6.3-8.2)
[2017-04-24 00:13] LABS: GLUCOSE 552 mg/dL (75-110)
[2017-04-24 00:14] LABS: ANION GAP 25 (5-19)
[2017-04-24] MEDS ORDERED: DEXTROSE 40% GEL 15 GM TUBE PO PRN ×6 (00:32→08:00)
[2017-04-24] MEDS ORDERED: DEXTROSE 50%-WATER 25 GM/50 ML DISP.SYRIN IV PRN ×6 (00:32→08:00)
[2017-04-24] MEDS ORDERED: NORMAL SALINE 100 ML with INSULIN REGULAR, HUMAN 100 UNIT IV PRN ×4 (00:32→03:26)
[2017-04-24] MEDS ORDERED: GLUCAGON,HUMAN RECOMB 1 MG INJ IM PRN ×3 (00:32→08:00)
[2017-04-24] MEDS ORDERED: KETOROLAC TROMETHAMINE INJ/PF 30 MG/1 ML SDV IV ONE (00:35)
[2017-04-24 00:47] LABS: APPEARANCE,URINE CLEAR; BILIRUBIN,URINE NEGATIVE (NEGATIVE); GLUCOSE, URINE >=500 mg/dL (NEGATIVE); KETONES,URINE 80 mg/dL (NEGATIVE); LEUKOCYTE ESTERASE,URINE NEGATIVE (NEGATIVE); NITRITE,URINE NEGATIVE (NEGATIVE); PROTEIN,URINE 100 mg/dL (NEGATIVE); URINE SPECIFIC GRAVITY 1.015; UROBILINOGEN,URINE NEGATIVE mg/dL (<2.0)
[2017-04-24] MEDS ORDERED: INSULIN REG, HUMAN 100 UNIT/ML 3 ML VIAL (PYX) ONE (00:51)
[2017-04-24] MEDS ORDERED: NORMAL SALINE 1000 ML 1,000 ML IV ONE (02:25)
[2017-04-24] MEDS ORDERED: NORMAL SALINE 1000 ML 1,000 ML IV PRN (03:28)
[2017-04-24 03:41] LABS: ADD ON TESTING BLD IN LAB ACKNOWLEDGE
[2017-04-24 03:53] LABS: MAGNESIUM 1.9 mg/dL (1.6-2.3)
[2017-04-24 04:16] LABS: ANION GAP 16 (5-19); BLOOD UREA NITROGEN 22 mg/dL (7-20); CALCIUM 8.1 mg/dL (8.4-10.2); CARBON DIOXIDE 18 mmol/L (22-30); CHLORIDE 101 mmol/L (98-107); CREATININE RESULT 1.43 mg/dL (0.52-1.25); GLUCOSE 377 mg/dL (75-110); POTASSIUM 4.1 mmol/L (3.6-5.0)
[2017-04-24 04:26] LABS: URINE BARBITURATES SCREEN NEGATIVE; URINE METHADONE SCREEN NEGATIVE; URINE OPIATES LOW NEGATIVE; URINE PHENCYCLIDINE SCREEN NEGATIVE
[2017-04-24] MEDS ORDERED: INSULIN LISPRO 100 UNIT/ML 3 ML VIAL SUBCUT PRN (08:00)
[2017-04-24] MEDS ORDERED: ACETAMINOPHEN 325 MG TABLET PO PRN (08:02)
[2017-04-24] MEDS ORDERED: INSULIN DETEMIR 100 UNIT/ML 3 ML PEN SUBCUT ONE (08:30)
[2017-04-24 08:47] LABS: HEMOGLOBIN 8.7 g/dL (13.5-17.0); HGB HCT DIFFERENCE -0.9; MEAN CORPUSCULAR HEMOGLOBIN 25.2 pg (27.0-33.4); MEAN CORPUSCULAR HGB CONC 32.1 g/dL (32.0-36.0); MEAN CORPUSCULAR VOLUME 78 fl (80-97); RED BLOOD COUNT 3.44 10^6/uL (4.35-5.55); RED CELL DISTRIBUTION WIDTH 16.7 % (11.5-14.0); WHITE BLOOD COUNT 13.2 10^3/uL (4.0-10.5)
[2017-04-24 09:04] LABS: ANION GAP 11 (5-19); BLOOD UREA NITROGEN 19 mg/dL (7-20); CALCIUM 8.5 mg/dL (8.4-10.2); CARBON DIOXIDE 23 mmol/L (22-30); CHLORIDE 104 mmol/L (98-107); CREATININE RESULT 1.27 mg/dL (0.52-1.25); GLUCOSE 117 mg/dL (75-110); POTASSIUM 3.8 mmol/L (3.6-5.0); SODIUM 137.9 mmol/L (137-145)
[2017-04-24 10:54] VITALS: BP 155/89
--- NOTE | 2017-04-24 10:57 | EKG REPORT ---
SEVERITY:- NORMAL ECG - SINUS RHYTHM : Confirmed by: Zakiya Francis 24-Apr-2017 10:56:47
--- NOTE | 2017-04-24 14:37 | HX & PHYSICAL/DISCHG SUMMARY E ---
History and Physical/Discharge Summary NAME: LENA SCHULZ : 1985 AGE: 31Y ADMITTED: 04/24/2017 DISCHARGED: 04/24/2017 CODE STATUS: FULL CODE. PRIMARY CARE PROVIDER: Yet to be established, but the patient has been referred to Dr. Kirkland. DISCHARGE DIAGNOSES: 1. Early diabetic ketoacidosis. 2. Prerenal azotemia. 3. Hematuria, which is resolved. 4. Hyponatremia secondary to #1 which is resolved. 5. History of cocaine use. 6. History of opiate dependency. 7. Tobacco dependency. 8. Hypertension. DISCHARGE MEDICATIONS: 1. Norvasc 5 mg p.o. daily 2. Atenolol 25 mg p.o. daily. 3. Buspirone 7.5 mg p.o. q.12 h. 4. Gabapentin 300 mg p.o. q.6 h. 5. NovoLog FlexPen sliding scale coverage before meals. 6. Levemir 40 units subcutaneous every hour of sleep. 7. [place] carbonate ER 450 mg p.o. daily. 8. Seroquel 300 mg p.o. every hour of sleep. 9. Trazodone 100 mg p.o. every hour of sleep p.r.n. DIET: Heart-healthy. ACTIVITY: As tolerated. DIAGNOSTICS: Lab values are as follows: Hematology obtained on 04/24/2017: WBCs are 1.9, hemoglobin 9.2, hematocrit 28.4, and platelet count is 346,000. Chemistry obtained on 04/24/2017: Sodium is 137, potassium 3.8, chloride 104, carbon dioxide 23, BUN 19, creatinine 1.27, glucose 117, calcium 8.5, magnesium 1.9, bilirubin 0.7, AST 46, ALT 37, alkaline phosphatase 123. Troponin is 0.012, total protein 6.9, albumin 3.6, lipase is 63. Urinalysis obtained on 04/24/2017: Color straw appearance, clear, pH is 5.0, specific gravity 1.015, protein 100, glucose greater than 500, ketones 88, occult blood moderate, nitrite negative, bilirubin negative, urobilinogen negative, leukocyte esterase is negative, WBC 1, RBC 0, epithelial squamous cells less than 1, ascorbic acid is negative. WBC 1, RBC 0, epithelial squamous cells less than 1, ascorbic acid is negative. Toxicology obtained on 04/24/2017 is bloom negative. Chest x-ray obtained on 04/23/2017 reveals no acute radiographic finding of the chest. EKG obtained on 04/24/2017 reveals sinus rhythm. PHYSICAL EXAMINATION: GENERAL: On examination, the patient is a well-developed, well-nourished 31-year-old male who is awake, alert and oriented to person, place, time and situation. He is verbal, conversational, ambulatory, and does not appear to be in any acute distress. VITAL SIGNS: Temperature 98.8, pulse 97, respirations 19, blood pressure 155/89, oxygen saturation is 98% on room air. SKIN: Warm and dry. No rash, not diaphoretic. HEENT: Pupils are equal, round, and reactive to light and accommodation. Conjunctivae is pink. Scleral icterus. Mouth with no lesions. Trachea midline. NECK: Supple, no JVD. No palpable lymphadenopathy or thyromegaly. CARDIOVASCULAR: Heart is regular with no murmur or rub. CHEST: Clear to auscultation. ABDOMEN: Soft, nontender and nondistended. Bowel sounds present. No palpable organomegaly. BACK: No CVA tenderness or sacral edema. EXTREMITIES: No clubbing, cyanosis, edema or peripheral signs of embolization. Pedal pulses 2+ noted bilaterally. PSYCHIATRIC: Odd affect and mood. HISTORY OF PRESENT ILLNESS: The patient is a 31-year-old male with a past medical history of diabetes mellitus type 1 that is well known to the hospitalist service for multiple admissions for DKA. The patient presented to the emergency department on 05/24 with a chief complaint of blood in the urine. The patient had a recent admission to the hospital and actually left AMA just 36 hours prior to this presentation. During the patient's previous admission he did have a Sorensen catheter in place. Upon arrival to the emergency department, the patient stated that he had been vomiting and the patient was found to be tachycardic. The patient's blood sugar was over 500 in triage. The patient stated that he had indeed been taking his insulin and also uses the sliding scale insulin without ever forgetting. The patient actually denies though taking any long-acting insulin such as Lantus. The patient had no fevers, did note some abdominal cramping and given the patient did have a gap acidosis, was referred to the hospitalist for admission and management. HOSPITAL COURSE: The patient was admitted to [facility]. The patient was aggressively hydrated and the patient's gap closed within 4 hours. The patient was never hyperkalemic. The patient's presenting creatinine of 1.48 did trend down to the patient's baseline. The patient was given basal insulin and a meal was started. The patient has had superb glycemic control with the last 3 readings being 165, 117 and 119. The patient was noted to have a mild white count which is to be expected. The patient specifically asked for a prescription for opiates; however, it appears that the patient has been discharged from his pain management center, as he has not had any prescriptions filled according to the controlled substance database since January of this year. This has been an ongoing issue with the patient and he has had multiple admissions for complaints such as this. The patient has been counseled numerous times for his need for substance abuse assessment and treatment; however, the patient declines that at this time. The patient's presenting urinalysis did note a moderate amount of blood; however, a specimen was obtained, and I personally visualized it and there was no evidence of gross hematuria noted. The patient was resumed on his home medications and is ready for discharge. DISCHARGE PLANNING: The patient is to follow up with his primary care provider within 1 week for hospital followup. Time spent on this admission and discharge, including assessment and plan, physical examination, patient education and review of previous records is 45 minutes. DICTATING PHYSICIAN: MARTINE TEAGUE NP [id number] PHY#: [id number] ID: [id number] JOB#: [id number] ACCT: [id number] cc:MARTINE TEAGUE NP >
[2017-04-24] MEDS ORDERED: INSULIN DETEMIR 100 UNIT/ML 3 ML PEN SUBCUT SCH (22:00)
--- NOTE | 2017-04-25 13:27 | EKG REPORT ---
SEVERITY:- BORDERLINE ECG - SINUS TACHYCARDIA BORDERLINE INFERIOR Q WAVES BORDERLINE T WAVE ABNORMALITIES : Confirmed by: Zakiya Francis 25-Apr-2017 13:27:04
== END 2017-04-24 11:28 | disposition home or self-care (01) ==
LOC: ER 22:48 → EH 04-24 03:51 → INTOOBSV 04-24 03:51 → 3W 04-24 05:01
PROVIDERS: ADMIT Family Medicine; ATTEND Family Medicine
DX: E10.10 Type 1 diabetes mellitus with ketoacidosis without coma (principal); R79.89 Other specified abnormal findings of blood chemistry; R31.9 Hematuria, unspecified; E87.1 Hypo-osmolality and hyponatremia; F11.21 Opioid dependence, in remission; I10 Essential (primary) hypertension; Z91.14 Patient's other noncompliance with medication regimen; Z90.49 Acquired absence of other specified parts of digestive tract
CPT/HCPCS: 93005 ×2; 99285; 96374; 36415 ×2; 82962; 83690; 83735; 85025; 85027; 80048; 80053; 81001; 84484; 80307; 71010; 93010; G0378; J1815; J1885; J2405; J7030

== ENCOUNTER 2017-05-27 15:44 | Inpatient (IN) | payer MEDICAID ==
[2017-05-27] MEDS: NORMAL SALINE 1000 ML 1,000 ML IV PRN ×2 (16:21→16:22)
--- NOTE | 2017-05-27 17:01 | RADIOLOGY REPORT (SQ) ---
EXAM DESCRIPTION: CHEST SINGLE VIEW COMPLETED DATE/TIME: 05/27/2017 4:53 pm REASON FOR STUDY: sob COMPARISON: 04/23/2017 EXAM PARAMETERS: NUMBER OF VIEWS: One view. TECHNIQUE: Single frontal radiographic view of the chest acquired. RADIATION DOSE: NA LIMITATIONS: None. FINDINGS: LUNGS AND PLEURA: No opacities, masses or pneumothorax. No pleural effusion. MEDIASTINUM AND HILAR STRUCTURES: No masses. Contour normal. HEART AND VASCULAR STRUCTURES: Heart normal in size. Normal vasculature. BONES: No acute findings. HARDWARE: None in the chest. OTHER: No other significant finding. IMPRESSION: NO ACUTE RADIOGRAPHIC FINDING IN THE CHEST. TECHNICAL DOCUMENTATION: JOB ID: [id number]
[2017-05-27 17:55] LABS: VENOUS BLOOD BASE EXCESS -10.5 mmol/L; VENOUS BLOOD HCO3 12.2 mmol/L (20-32); VENOUS BLOOD PH 7.41 (7.30-7.42)
[2017-05-27 17:58] LABS: VENOUS BLOOD PCO2 19.7 mmHg (35-63)
[2017-05-27 18:07] LABS: ALANINE AMINOTRANSFERASE 22 U/L (21-72); ALBUMIN 3.2 g/dL (3.5-5.0); ALKALINE PHOSPHATASE 108 U/L (38-126); ASPARTATE AMINO TRANSFERASE 15 U/L (17-59); BILIRUBIN,DIRECT 0.5 mg/dL (0.0-0.4); BILIRUBIN,TOTAL 0.7 mg/dL (0.2-1.3); BLOOD UREA NITROGEN 24 mg/dL (7-20); CARBON DIOXIDE 11 mmol/L (22-30); CHLORIDE 95 mmol/L (98-107); CREATININE RESULT 1.44 mg/dL (0.52-1.25); POTASSIUM 4.9 mmol/L (3.6-5.0); SODIUM 132.8 mmol/L (137-145); TOTAL PROTEIN 5.6 g/dL (6.3-8.2)
[2017-05-27 18:15] LABS: HEMATOCRIT 33.9 % (37.9-51.0); HEMOGLOBIN 10.3 g/dL (13.5-17.0); MEAN CORPUSCULAR HEMOGLOBIN 24.2 pg (27.0-33.4); MEAN CORPUSCULAR HGB CONC 30.5 g/dL (32.0-36.0); MEAN CORPUSCULAR VOLUME 79 fl (80-97); RED BLOOD COUNT 4.27 10^6/uL (4.35-5.55); RED CELL DISTRIBUTION WIDTH 16.1 % (11.5-14.0); WHITE BLOOD COUNT 17.7 10^3/uL (4.0-10.5)
[2017-05-27 18:20] LABS: GLUCOSE 850 mg/dL (75-110)
[2017-05-27 18:21] LABS: ANION GAP 27 (5-19)
[2017-05-27] MEDS ORDERED: NORMAL SALINE 100 ML with INSULIN REGULAR, HUMAN 100 UNIT IV PRN ×4 (18:29→19:43)
[2017-05-27] MEDS ORDERED: DEXTROSE 50%-WATER 25 GM/50 ML DISP.SYRIN IV PRN ×4 (18:29→19:43)
[2017-05-27] MEDS ORDERED: GLUCAGON,HUMAN RECOMB 1 MG INJ IM PRN ×2 (18:29→19:43)
[2017-05-27] MEDS ORDERED: DEXTROSE 40% GEL 15 GM TUBE PO PRN ×4 (18:29→19:43)
--- NOTE | 2017-05-27 18:29 | ER Document Report ---
ED General - General Chief Complaint: High Blood Sugar Stated Complaint: HIGH BLOOD PRESSURE Time Seen by Provider: 05/27/17 15:59 TRAVEL OUTSIDE OF THE [place] IN LAST 30 DAYS: No - HPI Patient complains to provider of: Elevated blood sugar Notes: Patient has a history of noncompliance patient also has a history of being homeless patient is diabetic multiple admissions for DKA in the past. Patient states his sugar was high today and feeling unwell called EMS. Upon EMS check the patient's sugar was elevated. Patient was tachycardic. Patient states nausea vomiting. Upon my evaluation patient is resting comfortably no signs of any obvious distress. Patient states last time he had any insulin was day prior to arrival. Denies any fevers chills patient does state he is short of breath. - Related Data Allergies/Adverse Reactions: No Known Allergies Allergy (Verified 03/07/17 16:50) Past Medical History - Social History Smoking Status: Current Every Day Smoker Chew tobacco use (# tins/day): No Frequency of alcohol use: None Drug Abuse: None Family History: Reviewed & Not Pertinent, DM, Hypertension Patient has suicidal ideation: No Patient has homicidal ideation: No - Past Medical History Cardiac Medical History: Reports: Hx Hypertension Denies: Hx Congestive Heart Failure, Hx DVT, Hx Heart Attack, Hx Hypercholesterolemia, Hx Pulmonary Embolism Pulmonary Medical History: Reports: Hx Asthma - as child Denies: Hx COPD, Hx Sleep Apnea Neurological Medical History: Reports: Hx Migraine. Denies: Hx Seizures Endocrine Medical History: Reports: Hx Diabetes Mellitus Type 1. Denies: Hx Diabetes Mellitus Type 2, Hx Hyperthyroidism, Hx Hypothyroidism Renal/ Medical History: Denies: Hx Peritoneal Dialysis GI Medical History: Denies: Hx Cirrhosis, Hx Gastroesophageal Reflux Disease, Hx Hepatitis Musculoskeltal Medical History: Denies Hx Arthritis Psychiatric Medical History: Reports: Hx Anxiety, Hx Bipolar Disorder, Hx Depression, Hx Schizophrenia Infectious Medical History: Denies: Hx C-Diff, Hx Hepatitis, Hx MRSA Past Surgical History: Reports: Hx Appendectomy, Hx Oral Surgery - wisdom teeth , Other - [place] teeth extraction - Immunizations Hx Diphtheria, Pertussis, Tetanus Vaccination: Yes Hx Pneumococcal Vaccination: 09/16/00 Review of Systems - Review of Systems Constitutional: Other - Feeling unwell elevated blood sugar EENT: No symptoms reported Cardiovascular: No symptoms reported Respiratory: No symptoms reported Gastrointestinal: No symptoms reported Genitourinary: No symptoms reported Male Genitourinary: No symptoms reported Musculoskeletal: No symptoms reported Skin: No symptoms reported Hematologic/Lymphatic: No symptoms reported Neurological/Psychological: No symptoms reported Physical Exam - Vital signs Vitals: Temp Resp BP Pulse Ox 98.2 F 15 150/96 H 100 05/27/17 16:12 05/27/17 16:12 05/27/17 16:12 05/27/17 16:12 Interpretation: Normal - General General appearance: Appears well, Alert - HEENT Head: Normocephalic, Atraumatic Eyes: Normal Pupils: PERRL - Respiratory Respiratory status: No respiratory distress Chest status: Nontender Breath sounds: Normal Chest palpation: Normal - Cardiovascular Rhythm: Regular Heart sounds: Normal auscultation Murmur: No - Abdominal Inspection: Normal Distension: No distension Bowel sounds: Normal Tenderness: Nontender Organomegaly: No organomegaly - Back Back: Normal, Nontender - Extremities General upper extremity: Normal inspection, Nontender, Normal color, Normal ROM , Normal temperature General lower extremity: Normal inspection, Nontender, Normal color, Normal ROM , Normal temperature, Normal weight bearing. No: All's sign - Neurological Neuro grossly intact: Yes Cognition: Normal Orientation: AAOx4 Mely Coma Scale Eye Opening: Spontaneous Mely Coma Scale Verbal: Oriented Mely Coma Scale Motor: Obeys Commands Hawthorne Coma Scale Total: 15 Speech: Normal Motor strength normal: LUE, RUE, LLE, RLE Sensory: Normal - Psychological Associated symptoms: Normal affect, Normal mood - Skin Skin Temperature: Warm Skin Moisture: Dry Skin Color: Normal Course - Re-evaluation Re-evalutation: 05/27/17 18:25 Laboratory studies are concerning for DKA. More likely this is underlying due to the patient's noncompliance with insulin has a history of noncompliance and throwing himself in the DKA. Discussed with hospitalist Nitin will update the nighttime hospitalist Marilynn for admission - Vital Signs Vital signs: Temp Pulse Resp BP Pulse Ox 98.2 F 16 142/91 H 100 05/27/17 16:12 05/27/17 16:22 05/27/17 16:22 05/27/17 16:22 - Laboratory Result Diagrams: 05/27/17 17:38 05/27/17 17:38 Laboratory results interpreted by me: 05/27/17 05/27/17 05/27/17 17:38 17:38 17:38 WBC 17.7 H RBC 4.27 L Hgb 10.3 L Hct 33.9 L MCV 79 L MCH 24.2 L MCHC 30.5 L RDW 16.1 H Seg Neuts % (Manual) 94 H Lymphocytes % (Manual) 3 L Abs Neuts (Manual) 16.6 H VBG pCO2 19.7 L* VBG HCO3 12.2 L Sodium 132.8 L Chloride 95 L Carbon Dioxide 11 L Anion Gap 27 H BUN 24 H Creatinine 1.44 H Est GFR (Non-Af Amer) 57 L Glucose 850 H* Direct Bilirubin 0.5 H AST 15 L Total Protein 5.6 L Albumin 3.2 L Urine Protein Urine Glucose (UA) Urine Ketones 05/27/17 18:05 WBC RBC Hgb Hct MCV MCH MCHC RDW Seg Neuts % (Manual) Lymphocytes % (Manual) Abs Neuts (Manual) VBG pCO2 VBG HCO3 Sodium Chloride Carbon Dioxide Anion Gap BUN Creatinine Est GFR (Non-Af Amer) Glucose Direct Bilirubin AST Total Protein Albumin Urine Protein 30 H Urine Glucose (UA) >=500 H Urine Ketones 80 H Critical Care Note - Critical Care Note Total time excluding time spent on procedures (mins): 35 Comments: Multiple evaluations for patient with DKA. Discharge - Discharge Clinical Impression: Hx of noncompliance with medical treatment, presenting hazards to health DKA (diabetic ketoacidoses) Qualifiers: Diabetes mellitus type: type 1 Diabetes mellitus complication detail: without coma Qualified Code(s): E10.10 - Type 1 diabetes mellitus with ketoacidosis without coma Condition: Good Disposition: ADMITTED INPATIENT Admitting Provider: Paul Landeros
[2017-05-27 18:36] LABS: BASOPHILS % (MANUAL) 0 % (0-2); EOSINOPHILS % (MANUAL) 0 % (0-6); LYMPHOCYTES % (MANUAL) 3 % (13-45); TOTAL CELLS COUNTED 100
[2017-05-27 18:38] LABS: ANISOCYTOSIS 1+; POLYCHROMASIA 1+; TOXIC GRANULATION SLIGHT; TOXIC VACUOLATION PRESENT
[2017-05-27 18:57] LABS: APPEARANCE,URINE CLEAR; BILIRUBIN,URINE NEGATIVE (NEGATIVE); GLUCOSE, URINE >=500 mg/dL (NEGATIVE); KETONES,URINE 80 mg/dL (NEGATIVE); LEUKOCYTE ESTERASE,URINE NEGATIVE (NEGATIVE); NITRITE,URINE NEGATIVE (NEGATIVE); PROTEIN,URINE 30 mg/dL (NEGATIVE); URINE SPECIFIC GRAVITY 1.017; UROBILINOGEN,URINE NEGATIVE mg/dL (<2.0)
[2017-05-27] MEDS ORDERED: 1/2 NORMAL SALINE 3,000 ML IV ONE (19:41)
[2017-05-27] MEDS ORDERED: 1/2 NORMAL SALINE 1,000 ML IV PRN (19:41)
[2017-05-27] MEDS ORDERED: INSULIN LISPRO 100 UNIT/ML 3 ML VIAL ONE (19:49)
[2017-05-27 20:20] LABS: ADD ON TESTING BLD IN LAB ACKNOWLEDGE
[2017-05-27 20:47] LABS: MAGNESIUM 1.4 mg/dL (1.6-2.3)
[2017-05-27] MEDS ORDERED: NICOTINE 21 MG/24 HR PATCH.TD24 TD PRN (21:12)
[2017-05-27] MEDS ORDERED: PROMETHAZINE HCL 25 MG TABLET PO PRN (21:18)
[2017-05-27] MEDS ORDERED: ACETAMINOPHEN 325 MG TABLET PO PRN (21:18)
[2017-05-27] MEDS ORDERED: MAGNESIUM HYDROXIDE SUSP 30 ML UDCUP PO PRN (21:22)
--- NOTE | 2017-05-27 21:35 | PDOC H&P ---
History of Present Illness Admission Date/PCP: 05/27/17 20:32 Dr. Benz, though patient has not had an appointment with Dr. Curran since recent hospital stay at our facility. Patient complains of: high blood sugars History of Present Illness: LENA SCHULZ is a 31 year old -Citizen Of [place] male with underlying type 1 diabetes mellitus, well-known to the hospitalist service for multiple admissions for diabetic ketoacidosis, felt secondary to chronic noncompliance with medications and diet, who presents to the emergency room for evaluation of above complaint. Patient has been discussed with day hospitalist who had discussed the patient with the emergency room physician who evaluated the patient. Emergency room physician is now gone for the day. Patient denies any sore spots anywhere on his body. States he has had some loose stools, along with questionable fever. Multiple episodes of nausea and vomiting. No chest or abdominal pain. States he has been compliant with his medications, although he does state he has not had any insulin for approximately 24 hours. Dictation via voice recognition software. Laboratory results are listed in [facility] and are reviewed. X-ray summary results are listed below, with full report(s) reviewed. . EKG reviewed and compared to prior tracing from the ninth of last month. Social history/personal habits: . Has children. Unemployed. Pack of cigarettes per day. Denies alcohol or illicit drug use. No known drug allergies. Home medications initially autopopulated into [facility] may not accurately reflect patient's true medications, dosages, and/or frequencies. safe technician to reconcile medications. Unfortunately, patient not certain of all medications/dosages/frequencies. REVIEW OF SYSTEMS: Constitutional: See history and present illness. Eyes: No vision complaints. ENT: No swallowing problems or complaints. Denies hearing loss. Pulmonary: No current complaints. Cardiovascular: No current complaints, including chest pain. Gastrointestinal: See history and present illness. Skin: No current complaints, including rashes. Hematologic: Denies easy bruising. Neurologic: No current complaints, including numbness or tingling. Musculoskeletal: No current or chronic joint complaints, such as arthritis. Psychiatric: Denies anxiety or depression. Endocrine: Polyuria. Genitourinary: No current complaints, including dysuria. PHYSICAL EXAMINATION: 88.5 kg. Height is not recorded on the chart. Temperature 98.2. Pulse 125 and regular. Blood pressure 153/98. Respirations are 32, outwardly consistent with Kussmaul breathing, with 100% saturation on room air. Well-nourished though somewhat chronically ill-appearing -Citizen Of [place] male, slightly disheveled appearance, who appears not to feel very well. Mildly anxious, without agitation. Awake alert and cooperative. Skin is warm and dry. No grossly obvious evidence of rash in areas of skin examined. No subcutaneous nodules palpated. ENT: Hearing grossly normal to normal conversation. Tongue midline on protrusion pink and tacky. Eyes: No scleral icterus. Pupils equal and reactive to light at 4 mm. Starr conjunctivae. Neck is supple and nontender to gentle active range of motion and palpation. Midline trachea. No palpable thyroid nodule mass enlargement or tenderness. Lymphatic: No palpable cervical or clavicular nodes. Neck and lymphatic exams limited by patient body habitus. Psychiatric: Fair to reasonable insight into acute and chronic medical issues. Oriented to time location and why here. Lungs: Auscultation reveals clear and equal breath sounds bilaterally. No use of accessory respiratory muscles. Cardiovascular: Heart regular rate and rhythm, without gallop murmur or rub. No carotid or abdominal aortic bruits. No ankle or pedal edema. Palpable dorsalis pedis pulses. Abdomen:soft slightly distended nontender with positive bowel sounds. Unable to adequately evaluate abdomen for masses or organomegaly due to distention. Extremities: Feet are warm and dry. No calf tenderness to compression. No grossly obvious visual evidence of calf swelling. Gentle manipulation of lower extremities fails to reveal any obvious evidence of injury or instability to knees hips or ankles. Neurologic: Moves all 4 extremities grossly normally. Moves from a seated to a supine position without undue difficulty. Patellar reflexes absent. Absent Babinski. Light touch is intact at feet. Dorsiflexion and plantarflexion of feet 5 / 5 and symmetric. Past Medical History Cardiac Medical History: Reports: Hypertension Denies: Congestive Heart Failure, DVT, Myocardial Infarction, Hyperlipidema, Pulmonary Embolism Pulmonary Medical History: Reports: Asthma - as child Denies: Chronic Obstructive Pulmonary Disease (COPD), Sleep Apnea EENT Medical History: Denies: Eyes, Ears, Throat Neurological Medical History: Reports: Migraine Denies: Hemorrhagic CVA, Ischemic CVA, Seizures Endocrine Medical History: Reports: Diabetes Mellitus Type 1 Denies: Diabetes Mellitus Type 2, Hyperthyroidism, Hypothyroidism Renal/ Medical History: Reports: None GI Medical History: Denies: Cirrhosis, Gastroesophageal Reflux Disease, Hepatitis, Peptic Ulcer Disease Musculoskeltal Medical History: Denies: Arthritis Skin Medical History: Reports: None Psychiatric Medical History: Reports: Bipolar Disorder, Depression, General Anxiety Disorder, Tobacco Dependency Denies: Alcohol Dependency, Substance Abuse Hematology: Infectious Medical History: Denies: Clostridium Difficile, Hepatitis B, Hepatitis C, Methicillin- Resistant Staph Aureus Past Surgical History Past Surgical History: Reports: Appendectomy, Other - [place] teeth extraction Social History Information Source: Patient, Emergency Med Personnel, [facility] Records Lives with: Family Smoking Status: Current Every Day Smoker Frequency of Alcohol Use: None Hx Recreational Drug Use: No Drugs: None Hx Prescription Drug Abuse: Yes - Advance Directive Resuscitation Status: Full Code Surrogate healthcare decision maker:: Family History Family History: Reviewed & Not Pertinent, DM, Hypertension Parental Family History Reviewed: Yes - Healthy Children Family History Reviewed: Yes - Healthy Sibling(s) Family History Reviewed.: Yes - Healthy Medication/Allergy Home Medications: Insulin Aspart [Novolog Flexpen] 0 units SQ MEALS PRN 04/17/17 Insulin Detemir [Levemir Flextouch] 40 units SQ QHS 04/17/17 Amlodipine Besylate [Norvasc 5 mg Tablet] 5 mg PO DAILY 04/19/17 Atenolol [Tenormin] 25 mg PO DAILY 04/19/17 Buspirone HCl 7.5 mg PO Q12 04/19/17 Dextrose [Glucose] 1 each PO ASDIR PRN 04/19/17 Gabapentin 300 mg PO Q6 04/19/17 [place] Carbonate [[place] Carbonate ER] 450 mg PO DAILY 04/19/17 Quetiapine Fumarate [Seroquel] 300 mg PO QHS 04/19/17 Trazodone HCl [Desyrel] 100 mg PO HSP PRN 04/19/17 Allergies/Adverse Reactions: No Known Allergies Allergy (Verified 03/07/17 16:50) Physical Exam Vital Signs: Temp Pulse Resp BP Pulse Ox 98.2 F 43 H 153/98 H 100 05/27/17 16:12 05/27/17 20:01 05/27/17 20:18 05/27/17 20:18 Intake & Output 05/26/17 05/27/17 05/28/17 00:59 00:59 00:59 Intake Total 2210 Output Total 450 Balance 1760 Results Impressions: Chest X-Ray 05/27/17 16:36 IMPRESSION: NO ACUTE RADIOGRAPHIC FINDING IN THE CHEST. Assessment & Plan - Diagnosis (1) DKA, type 1 Qualifiers: Diabetes mellitus complication detail: without coma Qualified Code(s): E10.10 - Type 1 diabetes mellitus with ketoacidosis without coma Is this a current diagnosis for this admission?: Yes Plan: Patient will be admitted under DKA protocol. Insulin drip. Vigorous fluid hydration. Q 4 hours chemistry 7. Hourly Accu-Cheks. Addition of dextrose to intravenous fluid once serum glucose and/or Accu-Cheks 275 or less. Patient is full code. I have strongly encouraged patient not to get out of bed without notifying staff , to avoid a fall with injury. Knee high SCDs for DVT prophylaxis, along with subcutaneous heparin. Impression and plans were discussed with patient , who concurs. Time spent in evaluation and management of patient: 70 critical-care minutes. (2) Hypomagnesemia Is this a current diagnosis for this admission?: Yes Plan: Magnesium supplement, with follow-up level. (3) Leukocytosis Qualifiers: Leukocytosis type: unspecified Qualified Code(s): D72.829 - Elevated white blood cell count, unspecified Is this a current diagnosis for this admission?: Yes Plan: Likely a stress response; no obvious source of infection at this point in time. Repeat CBC with differential. (4) Anemia Qualifiers: Anemia type: unspecified type Qualified Code(s): D64.9 - Anemia, unspecified Is this a current diagnosis for this admission?: Yes Plan: Follow-up CBC with differential. No need for transfusion at present time. (5) Hx of noncompliance with medical treatment, presenting hazards to health Is this a current diagnosis for this admission?: Yes (6) Tobacco dependency Is this a current diagnosis for this admission?: Yes Plan: As needed nicotine patch. - Time Critical Time spent with patient: 35 or more minutes Anticipated discharge: Home Within: within 72 hours - Inpatient Certification Based on my medical assessment, after consideration of the patient's comorbidities, presenting symptoms, or acuity I expect that the services needed warrant INPATIENT care.: Yes I certify that my determination is in accordance with my understanding of Medicare's requirements for reasonable and necessary INPATIENT services [42 CFR 412.3e].: Yes Medical Necessity: Need Close Monitoring Due to Risk of Patient Decompensation, Need For IV Fluids, Need For Continuous Telemetry Monitoring, Risk of Diagnosis Which Will Require Inpatient Eval/Care/Monitoring Post Hospital Care: D/C or Transfer Summary
[2017-05-27 21:36] LABS: URINE BARBITURATES SCREEN NEGATIVE; URINE METHADONE SCREEN NEGATIVE; URINE OPIATES LOW NEGATIVE; URINE PHENCYCLIDINE SCREEN NEGATIVE
[2017-05-27 21:50] LABS: BLOOD UREA NITROGEN 24 mg/dL (7-20); CALCIUM 9.5 mg/dL (8.4-10.2); CHLORIDE 97 mmol/L (98-107); POTASSIUM 4.6 mmol/L (3.6-5.0); SODIUM 139.6 mmol/L (137-145)
[2017-05-27 21:59] LABS: GLUCOSE 698 mg/dL (75-110)
[2017-05-27 22:00] LABS: ANION GAP 33 (5-19); CARBON DIOXIDE 10 mmol/L (22-30)
[2017-05-27] MEDS ORDERED: HEPARIN SOD (PORCINE) 5,000 UNIT/ML 1 ML SYRINGE SUBCUT SCH (22:00)
[2017-05-27] MEDS ORDERED: MAGNESIUM SULFATE/D5W 1 GM/100 ML RTUPB IV SCH (22:00)
[2017-05-27] MEDS ORDERED: RINGERS SOLUTION,LACTATED 1,000 ML IV ONE (22:41)
[2017-05-27] MEDS ORDERED: METOPROLOL TARTRATE PF/INJ 5 MG/5 ML SDV IV PRN (22:46)
[2017-05-27] MEDS ORDERED: LIDOCAINE 1% INJ-PF (10 MG/ML) 30 ML SDV ONE ×2 (22:47→22:59)
[2017-05-27 22:58] LABS: ADD ON TESTING BLD IN LAB ACKNOWLEDGE
[2017-05-27 23:10] LABS: LITHIUM < 0.2 mEq/L (0.6-1.2)
[2017-05-27] MEDS ORDERED: NORMAL SALINE INJ/PF 0.9% 10 ML SDV IV PRN (23:17)
--- NOTE | 2017-05-27 23:54 | RADIOLOGY REPORT (SQ) ---
EXAM DESCRIPTION: CHEST SINGLE VIEW COMPLETED DATE/TIME: 05/27/2017 11:17 pm REASON FOR STUDY: post central line placement COMPARISON: Earlier exam same date EXAM PARAMETERS: NUMBER OF VIEWS: One view. TECHNIQUE: Single frontal radiographic view of the chest acquired. RADIATION DOSE: NA LIMITATIONS: None. FINDINGS: LUNGS AND PLEURA: No opacities, masses or pneumothorax. No pleural effusion. MEDIASTINUM AND HILAR STRUCTURES: No masses. Contour normal. HEART AND VASCULAR STRUCTURES: Heart normal in size. Normal vasculature. BONES: No acute findings. HARDWARE: Left subclavian central venous catheter tip projects beyond the superior margin of the imag e, likely within the internal jugular vein. OTHER: No other significant finding. IMPRESSION: Left subclavian central venous catheter tip projects beyond the superior margin of the i mage, likely within the internal jugular vein. TECHNICAL DOCUMENTATION: JOB ID: [id number]
--- NOTE | 2017-05-28 00:39 | OPERATIVE REPORT E ---
Operative Report NAME: ELNA SCHULZ : 1985 AGE: 31Y DATE OF SURGERY: 05/27/2017 ROOM: 318 PREOPERATIVE DIAGNOSIS: Diabetic ketoacidosis. POSTOPERATIVE DIAGNOSIS: Diabetic ketoacidosis. PROCEDURES PERFORMED: 1. Focused ultrasound of the left neck. 2. Insertion of left subclavian triple lumen central venous access catheter. 3. Interpretation of portable chest x-ray. SURGEON: GARTH CASAS M.D. ANESTHESIA: Lidocaine 1% plain. COMPLICATIONS: None. ESTIMATED BLOOD LOSS: Minimal. DRAINS: None. TISSUE REMOVED: None. DESCRIPTION OF PROCEDURE: After informed consent was obtained, the left neck and chest wall prepped and draped in sterile fashion. Surgical plan and surgical timeout were conducted. The left internal jugular vein was somewhat diminutive; therefore, the left subclavian area was chosen for access. Skin was anesthetized with 1% plain lidocaine. The subclavicular space was narrow. Eventually I was able to cannulate the left subclavian vein after several attempts, and a wire thread into position but the patient felt the wire by his left ear. We then switched to conventional 0.030 wire over to a Glidewire. Eventually the patient stated that he did not feel the wire by his left ear. There was no evidence of ectopy. The wire appeared to move smoothly. We dilated up the track and threaded a triple lumen central venous access catheter into position. There was excellent aspiration of blood flow through all 3 lumens. Catheter was flushed with heparinized saline and secured to the skin with 2-0 silk sutures and a Biopatch. Portable chest x-ray showed the line to go up into the left IJ. Because the line will be used for blood and other fluids and not vasopressors, I felt that it was safe to proceed with leaving the catheter in position as it is temporary and will function satisfactorily. DICTATING PHYSICIAN: GARTH CASAS M.D. [id number] PHY#: [id number] ID: [id number] JOB#: [id number] ACCT: [id number] cc:GARTH CASAS M.D. > [facility]ni
[2017-05-28 00:46] LABS: ARTERIAL BLOOD BASE EXCESS -7.4 mmol/L; ARTERIAL BLOOD O2 SATURATION 97.8 % (94-98)
[2017-05-28] MEDS ORDERED: PROMETHAZINE HCL INJ 25 MG/1 ML VIAL IV PRN (01:16)
[2017-05-28] MEDS ORDERED: FAMOTIDINE INJ/PF 20 MG/2 ML SDV IV ONE (01:45)
[2017-05-28 02:05] LABS: ANION GAP 15 (5-19); BLOOD UREA NITROGEN 24 mg/dL (7-20); CALCIUM 8.7 mg/dL (8.4-10.2); CHLORIDE 103 mmol/L (98-107); CREATININE RESULT 1.41 mg/dL (0.52-1.25); GLUCOSE 361 mg/dL (75-110); POTASSIUM 4.2 mmol/L (3.6-5.0); SODIUM 141.7 mmol/L (137-145)
[2017-05-28 02:12] LABS: CARBON DIOXIDE 24 mmol/L (22-30)
[2017-05-28] MEDS ORDERED: METOPROLOL TARTRATE PF/INJ 5 MG/5 ML SDV IV ONE (02:27)
[2017-05-28] MEDS ORDERED: DEXTROSE 5%-NORMAL SALINE 1,000 ML IV PRN ×2 (02:57→04:20)
[2017-05-28 03:11] LABS: PROTHROMBIN TIME 13.3 SEC (11.4-15.4)
[2017-05-28 03:12] LABS: PARTIAL THROMBOPLASTIN TIME 26.4 SEC (23.5-35.8)
[2017-05-28] MEDS ORDERED: MAGNESIUM SULFATE/D5W 1 GM/100 ML RTUPB IV SCH (03:15)
[2017-05-28 03:29] LABS: CREATINE KINASE MB 7.83 ng/mL (<4.55)
[2017-05-28 03:35] LABS: TROPONIN I 2.9 ng/mL
[2017-05-28] MEDS ORDERED: CLOPIDOGREL BISULFATE 75 MG TABLET PO ONE (03:45)
[2017-05-28] MEDS ORDERED: ASPIRIN 81 MG TABLET, CHEWABLE PO ONE (03:45)
[2017-05-28] MEDS ORDERED: TENECTEPLASE INJ 50 MG KIT IV ONE ×2 (03:45→10:06)
[2017-05-28] MEDS ORDERED: ENOXAPARIN SODIUM INJ 100 MG/1 ML DISP.SYRIN SUBCUT SCH (04:00)
[2017-05-28] MEDS ORDERED: ATORVASTATIN CALCIUM 80 MG TABLET PO ONE (04:05)
[2017-05-28 04:52] VITALS: BP 166/98
--- NOTE | 2017-05-28 07:03 | EKG REPORT ---
SEVERITY:- ABNORMAL ECG - SINUS RHYTHM ST ELEVATION SUGGESTS PERICARDITIS : Confirmed by: Zakiya Francis 28-May-2017 07:02:13
--- NOTE | 2017-05-28 07:03 | EKG REPORT ---
SEVERITY:- ABNORMAL ECG - SINUS TACHYCARDIA BORDERLINE INFERIOR Q WAVES ST ELEVATION SUGGESTS PERICARDITIS : Confirmed by: Zakiya Francis 28-May-2017 07:02:33
--- NOTE | 2017-05-28 07:03 | EKG REPORT ---
SEVERITY:- ABNORMAL ECG - SINUS TACHYCARDIA PROBABLE LEFT ATRIAL ABNORMALITY INFERIOR INJURY, PROBABLE EARLY ACUTE INFARCT CONSIDER POSTERIOR WALL INVOLVEMENT LATERAL LEADS ARE ALSO INVOLVED : Confirmed by: Zakiya Francis 28-May-2017 07:02:27
--- NOTE | 2017-05-28 09:48 | PDOC TRANSFER SUMMARY ---
General Admission Date/PCP: 05/27/17 21:13 Resuscitation Status: Full Code - Transfer Diagnosis (1) DKA, type 1 Is this a current diagnosis for this admission?: Yes (2) Hypomagnesemia Is this a current diagnosis for this admission?: Yes (3) Leukocytosis Is this a current diagnosis for this admission?: Yes (4) Anemia Is this a current diagnosis for this admission?: Yes (5) Hx of noncompliance with medical treatment, presenting hazards to health Is this a current diagnosis for this admission?: Yes (6) Tobacco dependency Is this a current diagnosis for this admission?: Yes (7) Anticoagulated Is this a current diagnosis for this admission?: Yes (8) STEMI (ST elevation myocardial infarction) Is this a current diagnosis for this admission?: Yes - Transfer Medications Home Medications: Insulin Aspart [Novolog Flexpen] 0 units SQ MEALS PRN 04/17/17 Insulin Detemir [Levemir Flextouch] 40 units SQ QHS 04/17/17 Amlodipine Besylate [Norvasc 5 mg Tablet] 5 mg PO DAILY 04/19/17 Atenolol [Tenormin] 25 mg PO DAILY 04/19/17 Buspirone HCl 7.5 mg PO Q12 04/19/17 Dextrose [Glucose] 1 each PO ASDIR PRN 04/19/17 Gabapentin 300 mg PO Q6 04/19/17 Amanda Carbonate [Amanda Carbonate ER] 450 mg PO DAILY 04/19/17 Quetiapine Fumarate [Seroquel] 300 mg PO QHS 04/19/17 Trazodone HCl [Desyrel] 100 mg PO HSP PRN 04/19/17 - Allergies Allergies/Adverse Reactions: No Known Allergies Allergy (Verified 03/07/17 16:50) - Diet/Activity Discharge Diet: Other (Comments) - npo Hospital Course Hospital Course: May 28, 2017: Patient had been steadily recovering from episode of diabetic ketoacidosis, using the usual hospital protocol for same. On initial examination in the emergency room, patient had denied chest pain. Unremarkable initial troponin. Due to EKG revealing suspected pericarditis, follow-up troponin was obtained, With results at 9:25 PM on the of 0.078. Still no chest pain. Decision made to proceed with a third troponin, with results at 1:35 AM this morning revealing elevated level of 1.410. Subsequent EKG worrisome for acute myocardial infarction. I discussed the patient by phone with Dr. Bartholomew, on-call emergency room physician. He immediately examined and compared to the EKGs, and felt the repeat EKG early this morning was consistent with an inferior wall STEMI. STEMI protocol was then instituted and patient was transferred to the intensive care unit. Repeat troponin 2.90. Patient remained hemodynamically stable and was resting quietly in the intensive care unit. At that time, he stated that he had been having intermittent brief episodes of mild chest pain since arrival in the emergency room. inbound call center agent utility worker at [facility], the closest facility per emergency room physician, particularly with air transport not available due to weather, was Dr. lÁvarez. Patient was discussed in detail between emergency room charge nurse and Dr. Álvarez. Dr. Álvarez agreed with our plans to proceed and did accept the patient in transfer. Per protocol, patient subsequently received aspirin, loading dose of Plavix, 30 mg of intravenous Lovenox, followed by 1 mg/kg of subcu Lovenox followed by 45 mg of TNKase. Prior to receiving the above medications, timothy layperson discussion was had first with patient at bedside, followed by telephone discussion with at 3: 30 AM. No absolute or relative contraindications to either systemic anticoagulation or TNKase. was most appreciative of my discussion with her and notifying her of impression and plans. Subsequent telephone discussion at 4:30 AM this morning with Dr. Oconnor, on- call paper bags sewing machine operator at [facility]. He graciously accepted the patient in transfer. Once room was obtained, patient was transported by ground to [facility]. During this time, patient was kept updated at regular intervals concerning impression and plans. Occasional very mild chest discomfort, which was brief. Vital signs remained stable. Patient observed intermittently watching videos on his cell phone, in no obvious distress. 85 minutes critical care time spent in evaluation management of patient, including direct patient evaluation, multiple discussions with patient, telephone discussions with , paper bags sewing machine operator at [facility], and our emergency room physicians. Multiple discussions with nursing staff. Entering of multiple orders into the electronic health record. Physical Exam Vital Signs: Temp Pulse Resp BP Pulse Ox 99.4 F 108 H 14 164/94 H 100 05/28/17 04:37 05/28/17 04:37 05/28/17 04:37 05/28/17 04:37 05/28/17 04:37 Results Laboratory Results: 05/28/17 01:35 05/27/17 05/28/17 05/28/17 21:25 00:20 00:25 Carbonic Acid 0.86 L HCO3/H2CO3 Ratio 19:1 ABG pH 7.38 ABG pCO2 28.7 L ABG pO2 105.4 H ABG HCO3 16.5 L ABG O2 Saturation 97.8 ABG Base Excess -7.4 FiO2 ROOM AIR Sodium 139.6 Potassium 4.6 Chloride 97 L Carbon Dioxide 10 L* Anion Gap 33 H BUN 24 H Creatinine 1.60 H Est GFR ( Amer) > 60 Est GFR (Non-Af Amer) 50 L Glucose 698 H* 451 H* Calcium 9.5 05/28/17 01:35 Carbonic Acid HCO3/H2CO3 Ratio ABG pH ABG pCO2 ABG pO2 ABG HCO3 ABG O2 Saturation ABG Base Excess FiO2 Sodium 141.7 Potassium 4.2 Chloride 103 Carbon Dioxide 24 D Anion Gap 15 BUN 24 H Creatinine 1.41 H Est GFR ( Amer) > 60 Est GFR (Non-Af Amer) 58 L Glucose 361 H Calcium 8.7 05/27/17 05/28/17 05/28/17 21:25 01:35 02:40 Creatine Kinase CK-MB (CK-2) 7.83 H Troponin I 0.078 1.410 2.900 05/28/17 02:40 Creatine Kinase 233 H CK-MB (CK-2) Troponin I Impressions: Chest X-Ray 05/27/17 16:36 IMPRESSION: NO ACUTE RADIOGRAPHIC FINDING IN THE CHEST.
[2017-05-28] MEDS ORDERED: FAMOTIDINE INJ/PF 20 MG/2 ML SDV IV SCH (10:00)
[2017-05-28] MEDS ORDERED: ENOXAPARIN SODIUM INJ 30 MG/0.3 ML DISP.SYRIN ONE (10:06)
[2017-05-28] MEDS ORDERED: ASPIRIN 81 MG TABLET, CHEWABLE ONE (10:06)
[2017-05-28] MEDS ORDERED: CLOPIDOGREL BISULFATE 300 MG TABLET ONE (10:06)
--- NOTE | 2017-05-28 14:31 | Physician Advisory Note ---
Physician Advisor ProgressNote .: Pursuant to the plan for [facility], I have reviewed the medical record for this patient. Physician Advisor Statement: Co-morbidities to consider documenting, if attending agrees: 1. ARF - (pt w/baseline Cr 1.0's, Cr 1.44 on arrival & as high as 1.6 overnight ) Status: This 31yo w/DM-1, repeated admissions w/DKA due to noncompliance w/tx, underlying HTN & tobacco abuse ongoing, came in w/severe DKA. Sx were N/V/loose BMs. (His last DKA admission, just a month before, his only c /o was nausea, with glc 648, bicarb 12, osm 331, and was not sufficiently improved for d/c the next day - and he has had multiple similar stays, none "turning around" that quickly.) He had sustained tachycardia w/HR 108-120s, tachypnea w/RR as high as 43, bicarb severely low at 11, with tremendous anion gap of 27, glucose level also tremendous at 850. Na was 132.8, serum osm 322, Mag only 1.4. He had associated ARF (see above). The admitting attending started insulin drip, copious IVF, q4hr blood chemistry reviews, and ordered admission. This was not a case in which there was any question that the patient needed to be admitted. This was not a situation that could possibly be managed with a couple liters of IVF + a restart of home insulin, and expect possible discharge the next day. This patient was SICK - very high severity of illness, and the orders show very high intensity of service. Patient wasn't able to tolerate po intake at time of admission, or even by the next day - the attending didn't even order a diet while pt was here. This is a patient WELL known to this hospitalist group, with frequent admissions of 2+ days for DKA & related issues - at the time of Inpatient status decision, this attending knew better than to expect a quick turn-around with this patient. In ED, patient already received 2L of IVF boluses before the hospitalist was called. At 19:41, attending ordered 3L more of 1/2NS boluses, then 300ml/hr, along w/ insulin drip, watching a couple hours for response before deciding whether patient warranted Inpatient status. Despite all this, at 20:18, the patient's bedside glucose level was still >550 ( 698 by blood draw an hour later). At 21:13, attending ordered Inpatient status. At 22:41, he ordered LR 1L bolus. At 02:57, he ordered D5NS at 300ml/hr, only dropping to 150/hr at 04:20. Meanwhile, he ordered Mag replacement IV, multiple labs, followup trop Is & EKGs , finding the patient showed increasing signs of acute SC after coming in for admission, & arranging transfer to tertiary facility (not expected at time of admission) when acute STEMI dx was made. While there are cases in which it is appropriate to bring a patient in as Observation initially for DKA, changing afterwards once it becomes clear that they will not respond fast enough for d/c the next day, this patient at this time was not such a case. This patient clearly needed to be admitted at the time, 21:13, that that decision was made, and subsequent decision to transfer patient, due to new complications that were not in evidence at time of admission , does not affect what was known at time of admission. Determination: appropriate for Inpatient status in this case. CK
== END 2017-05-28 05:39 | disposition short-term general hospital (02) | DRG 637 ==
LOC: ER 15:44 → EH 20:32 → UNDOADMIN 20:32 → EH 21:13 → 3W 23:30 → EH 23:30 → ICU 05-28 03:33
PROVIDERS: ADMIT Family Medicine; ATTEND Family Medicine
PROC: 05HN33Z Insertion of Infusion Device into Left Internal Jugular Vein, Percutaneous Approach (ICD-10-PCS; principal; 2017-05-27)
PROC: B544ZZA Ultrasonography of Left Jugular Veins, Guidance (ICD-10-PCS; 2017-05-27)
DX: E10.10 Type 1 diabetes mellitus with ketoacidosis without coma (principal); I21.19 ST elevation (STEMI) myocardial infarction involving other coronary artery of inferior wall; E83.42 Hypomagnesemia; I10 Essential (primary) hypertension; D64.9 Anemia, unspecified; F41.8 Other specified anxiety disorders; F31.9 Bipolar disorder, unspecified; F17.210 Nicotine dependence, cigarettes, uncomplicated; Z91.128 Patient's intentional underdosing of medication regimen for other reason; T38.3X6A Underdosing of insulin and oral hypoglycemic [antidiabetic] drugs, initial encounter; Y92.9 Unspecified place or not applicable
CPT/HCPCS: 36415; 36600; 71010; 80048; 80053; 80178; 80307; 81001; 82550; 82553; 82803; 82947; 82962; 83690; 83735; 83930; 84484; 85025; 85610; 85730; 87040; 93005; 93010; 99291; C1751; C1769; J1644; J1650; J2550; J3101; J3475; J3490; J7030; J7120; S0028

== ENCOUNTER 2017-06-06 05:26 | Emergency (ER) | payer MEDICAID ==
[2017-06-06] MEDS ORDERED: ASPIRIN 81 MG TABLET, CHEWABLE PO ONE (06:27)
--- NOTE | 2017-06-06 07:09 | RADIOLOGY REPORT (SQ) ---
EXAM DESCRIPTION: CHEST SINGLE VIEW COMPLETED DATE/TIME: 06/06/2017 7:02 am REASON FOR STUDY: CP COMPARISON: 05/27/2017. EXAM PARAMETERS: NUMBER OF VIEWS: One view. TECHNIQUE: Single frontal radiographic view of the chest acquired. RADIATION DOSE: NA LIMITATIONS: None. FINDINGS: LUNGS AND PLEURA: No opacities, masses or pneumothorax. No pleural effusion. MEDIASTINUM AND HILAR STRUCTURES: No masses. Contour normal. HEART AND VASCULAR STRUCTURES: Heart normal in size. Normal vasculature. BONES: No acute findings. HARDWARE: None in the chest. OTHER: No other significant finding. IMPRESSION: NO ACUTE RADIOGRAPHIC FINDING IN THE CHEST. TECHNICAL DOCUMENTATION: JOB ID: [id number]
[2017-06-06 07:10] VITALS: BP 159/103
--- NOTE | 2017-06-06 07:22 | ER Document Report ---
ED Cardiac - General Mode of Arrival: Ambulatory Information source: Patient TRAVEL OUTSIDE OF THE [place] IN LAST 30 DAYS: No - HPI Patient complains to provider of: Chest pain Associated symptoms: Other - see above <DALIA SHEPPARD - Last Filed: 06/06/17 11:27> <ROSETTA CAMP - Last Filed: 06/06/17 16:37> - General Chief Complaint: Chest Pain Stated Complaint: CHEST PAIN Time Seen by Provider: 06/06/17 06:24 Notes: Patient is a 31 year old male who presents to the ED after being found asleep in the ICU waiting room. After being found by security and asked to leave, he started complaining of chest pain and then came to check in. (DALIA SHEPPARD) - Related Data Allergies/Adverse Reactions: No Known Allergies Allergy (Verified 03/07/17 16:50) Past Medical History - General Information source: Patient - Social History Smoking Status: Current Every Day Smoker Chew tobacco use (# tins/day): No Frequency of alcohol use: None Family History: Reviewed & Not Pertinent, DM, Hypertension Patient has suicidal ideation: No Patient has homicidal ideation: No - Past Medical History Cardiac Medical History: Reports: Hx Hypertension Pulmonary Medical History: Reports: Hx Asthma - as child Neurological Medical History: Reports: Hx Migraine Endocrine Medical History: Reports: Hx Diabetes Mellitus Type 1 Renal/ Medical History: Denies: Hx Peritoneal Dialysis Musculoskeltal Medical History: Denies Hx Arthritis Psychiatric Medical History: Reports: Hx Anxiety, Hx Bipolar Disorder, Hx Depression, Hx Schizophrenia Infectious Medical History: Denies: Hx C-Diff, Hx Hepatitis, Hx MRSA Past Surgical History: Reports: Hx Appendectomy, Hx Oral Surgery - wisdom teeth , Other - [place] teeth extraction - Immunizations Hx Diphtheria, Pertussis, Tetanus Vaccination: Yes Hx Pneumococcal Vaccination: 09/16/00 <DALIA SHEPPARD - Last Filed: 06/06/17 11:27> Review of Systems - Review of Systems Constitutional: No symptoms reported EENT: No symptoms reported Cardiovascular: See HPI, Chest pain Respiratory: No symptoms reported Gastrointestinal: No symptoms reported Genitourinary: No symptoms reported Male Genitourinary: No symptoms reported Musculoskeletal: No symptoms reported Skin: No symptoms reported Hematologic/Lymphatic: No symptoms reported Neurological/Psychological: No symptoms reported <DALIA SHEPPARD - Last Filed: 06/06/17 11:27> Physical Exam - General General appearance: Appears well, Alert In distress: None - HEENT Head: Normocephalic, Atraumatic Eyes: Normal Extraocular movements intact: Yes Pupils: PERRL - Respiratory Respiratory status: No respiratory distress Breath sounds: Normal - Cardiovascular Rhythm: Regular Heart sounds: Normal auscultation Murmur: No - Abdominal Inspection: Normal Distension: No distension Tenderness: Nontender - Back Back: Normal - Extremities General upper extremity: Normal inspection, Normal ROM General lower extremity: Normal inspection, Normal ROM. No: Edema - Neurological Neuro grossly intact: Yes - Psychological Associated symptoms: Normal affect, Normal mood - Skin Skin Temperature: Warm Skin Moisture: Dry Skin Color: Normal <DALIA SHEPPARD - Last Filed: 06/06/17 11:27> - Vital signs Vitals: Pulse Resp BP Pulse Ox 108 H 18 148/103 H 100 06/06/17 05:34 06/06/17 05:34 06/06/17 05:34 06/06/17 05:34 Course - Laboratory Result Diagrams: 06/06/17 07:00 <VALARIEDALIA - Last Filed: 06/06/17 11:27> - Laboratory Result Diagrams: 06/06/17 07:00 <ROSETTA CAMP - Last Filed: 06/06/17 16:37> - Re-evaluation Re-evalutation: 06/06/17 Patient is a 31-year-old male who was recently seen at [facility] for concern of coronary artery disease. The patient was seen in the emergency department after being found in the ICU waiting rosalie and being asked to leave. Patient was complaining of chest pain and states that he has had chest pain since last week. Patient had an EKG which is not showing an acute AK. Patient had stable vitals. Patient then told the nursing staff that he wanted to leave because his was going to pick him up and take him to a different hospital. Patient is calm and cooperative. Patient has been explained that he does not need to go by his own car. We can transfer him if he is still having chest pain. Patient is taking a risk of possible heart attack or possible life. He is strongly discouraged from leaving. Again, patient is very calm and cooperative but states that he would like to sign out AGAINST MEDICAL ADVICE and his will pick him up and taken by private vehicle to another institution. Of note, after the patient left, troponin came back at 0.497. Attempted to call patient. No answer on phone. (ROSETTA CAMP) - Vital Signs Vital signs: Temp Pulse Resp BP Pulse Ox 108 H 19 159/103 H 100 06/06/17 05:34 06/06/17 07:01 06/06/17 07:00 06/06/17 07:01 - Laboratory Laboratory results interpreted by me: 06/06/17 07:00 Carbon Dioxide 33 H Discharge <DALIA SHEPPARD - Last Filed: 06/06/17 11:27> <ROSETTA CAMP - Last Filed: 06/06/17 16:37> - Discharge Clinical Impression: Chest pain Qualifiers: Chest pain type: unspecified Qualified Code(s): R07.9 - Chest pain, unspecified Condition: Stable Disposition: AGAINST MEDICAL ADVICE Additional Instructions: You are leaving AGAINST MEDICAL ADVICE. You are free to come back at any time. Please make sure that you are seeing your doctor if you have concerns about chest pain. Scribe Attestation: 06/06/17 16:37 I personally performed the services described in the documentation, reviewed and edited the documentation which was dictated to the scribe in my presence, and it accurately records my words and actions. (ROSETTA CAMP) Scribe Documentation - Scribe Written by Darius:: darius Bailey, 06/06/2017, 0737 acting as scribe for :: Omega <DALIA SHEPPARD - Last Filed: 06/06/17 11:27>
--- NOTE | 2017-06-06 07:32 | EKG REPORT ---
SEVERITY:- ABNORMAL ECG - SINUS TACHYCARDIA NONSPECIFIC BIPHASIC ST-T CHANGES- INFERIOR LATERAL LEADS : Confirmed by: Brayden Silverio MD 06-Jun-2017 07:31:17
[2017-06-06 07:56] LABS: CREATINE KINASE MB 0.47 ng/mL (<4.55)
[2017-06-06 08:00] LABS: TROPONIN I 0.497 ng/mL
[2017-06-06 08:04] LABS: ALANINE AMINOTRANSFERASE 26 U/L (21-72); ALBUMIN 3.8 g/dL (3.5-5.0); ALKALINE PHOSPHATASE 92 U/L (38-126); ANION GAP 9 (5-19); ASPARTATE AMINO TRANSFERASE 23 U/L (17-59); BILIRUBIN,DIRECT 0.3 mg/dL (0.0-0.4); BILIRUBIN,TOTAL 0.5 mg/dL (0.2-1.3); BLOOD UREA NITROGEN 8 mg/dL (7-20); CALCIUM 9.6 mg/dL (8.4-10.2); CARBON DIOXIDE 33 mmol/L (22-30); CHLORIDE 102 mmol/L (98-107); CREATINE KINASE 89 U/L (55-170); GLUCOSE 96 mg/dL (75-110); POTASSIUM 4.2 mmol/L (3.6-5.0); SODIUM 144.1 mmol/L (137-145); TOTAL PROTEIN 7.1 g/dL (6.3-8.2)
== END 2017-06-06 07:30 | disposition left against medical advice (07) ==
LOC: ER 05:26
DX: R07.9 Chest pain, unspecified (principal); I10 Essential (primary) hypertension; E11.9 Type 2 diabetes mellitus without complications; F17.200 Nicotine dependence, unspecified, uncomplicated; Z53.29 Procedure and treatment not carried out because of patient's decision for other reasons
CPT/HCPCS: 36415; 71010; 80053; 82550; 82553; 82962; 84484; 85610; 93005; 93010; 99285

== ENCOUNTER 2017-08-02 13:33 | Inpatient (IN) | payer MEDICAID ==
[2017-08-02] MEDS ORDERED: NORMAL SALINE 1000 ML 1,000 ML IV ONE ×2 (13:57→14:24)
--- NOTE | 2017-08-02 14:00 | ER Document Report ---
ED GI/ - General Chief Complaint: Shortness Of Breath Stated Complaint: VOMITING BLOOD Time Seen by Provider: 08/02/17 14:00 Mode of Arrival: Medic Information source: Patient Notes: 31-year-old insulin-dependent diabetic who comes in today because of abdominal pain, vomiting, dairrhea, and shortness of breath. He is unreliable in taking his insulin although he said he took Levimir 58 units last night. He states he had a heart attack a month a half ago and was sent home with insulin from [facility]. Smells ketotic and is tachycardic. He states he is DKA again. No chest pain. No hx C diff. or abdominal surgery. I called dr. bingham and he dismissed him from his practice. TRAVEL OUTSIDE OF THE [place] IN LAST 30 DAYS: No - Related Data Allergies/Adverse Reactions: No Known Allergies Allergy (Verified 03/07/17 16:50) Home Medications: Current Home Medications Insulin Aspart [Novolog Flexpen] 19 unit SUBCUT AC 08/02/17 [History] Insulin Detemir [Levemir Insulin 300 Units/3 ml Insuln.pen] 58 unit SUBCUT QHS 08/02/17 [History] Past Medical History - General Information source: Patient - Social History Smoking Status: Unknown if Ever Smoked Frequency of alcohol use: None Drug Abuse: None Occupation: unemployed Family History: Reviewed & Not Pertinent, DM, Hypertension - Past Medical History Cardiac Medical History: Reports: Hx Hypertension Pulmonary Medical History: Reports: Hx Asthma - as child Neurological Medical History: Reports: Hx Migraine Endocrine Medical History: Reports: Hx Diabetes Mellitus Type 1 Renal/ Medical History: Denies: Hx Peritoneal Dialysis Musculoskeltal Medical History: Denies Hx Arthritis Psychiatric Medical History: Reports: Hx Anxiety, Hx Bipolar Disorder, Hx Depression, Hx Schizophrenia Past Surgical History: Reports: Hx Appendectomy, Hx Oral Surgery - wisdom teeth , Other - [place] teeth extraction - Immunizations Hx Diphtheria, Pertussis, Tetanus Vaccination: Yes Hx Pneumococcal Vaccination: 09/16/00 Review of Systems - Review of Systems Constitutional: No symptoms reported EENT: No symptoms reported Cardiovascular: No symptoms reported Respiratory: No symptoms reported Gastrointestinal: See HPI Genitourinary: No symptoms reported Male Genitourinary: No symptoms reported Musculoskeletal: No symptoms reported Skin: No symptoms reported Hematologic/Lymphatic: No symptoms reported Neurological/Psychological: No symptoms reported Physical Exam - Vital signs Interpretation: Tachycardic - General General appearance: Alert, Anxious Notes: dry - HEENT Head: Normocephalic, Atraumatic Eyes: Normal Conjunctiva: Normal Pupils: PERRL Mucous membranes: Dry Neck: Normal - Respiratory Respiratory status: No respiratory distress Chest status: Nontender Breath sounds: Normal Chest palpation: Normal - Cardiovascular Rhythm: Regular Heart sounds: Normal auscultation Murmur: No - Abdominal Inspection: Normal Distension: No distension Bowel sounds: Normal Tenderness: Tender - generalized, won't let me examine very well. No: Guarding , Rebound Organomegaly: No organomegaly - Back Back: Normal, Nontender. No: CVA tenderness - Extremities General upper extremity: Normal inspection, Nontender, Normal color, Normal ROM , Normal temperature General lower extremity: Normal inspection, Nontender, Normal color, Normal ROM , Normal temperature, Normal weight bearing. No: All's sign - Neurological Neuro grossly intact: Yes Cognition: Normal Orientation: AAOx4 Mely Coma Scale Eye Opening: Spontaneous [place] Coma Scale Verbal: Oriented [place] Coma Scale Motor: Obeys Commands [place] Coma Scale Total: 15 Speech: Normal Motor strength normal: LUE, RUE, LLE, RLE Sensory: Normal - Psychological Associated symptoms: Normal affect, Normal mood - Skin Skin Temperature: Warm Skin Moisture: Dry Skin Color: Normal Course - Re-evaluation Re-evalutation: 08/02/17 15:35 glucoe 520, co2 18, anioin gap 29, dr. alvarado wants insulin drip started in ER, will admit to IMCU for DKA, vomiting and diarrhea. - Laboratory Result Diagrams: 08/02/17 14:05 08/02/17 14:05 Laboratory results interpreted by me: 08/02/17 08/02/17 08/02/17 14:05 14:05 14:05 WBC 15.7 H Hgb 11.2 L Hct 34.6 L MCV 73 L MCH 23.8 L RDW 17.8 H Plt Count 486 H Seg Neuts % (Manual) 93 H Lymphocytes % (Manual) 7 L Monocytes % (Manual) 0 L Abs Neuts (Manual) 14.6 H Abs Monocytes (Manual) 0.0 L VBG pH 7.54 H VBG pCO2 24.4 L Potassium 5.7 H Chloride 91 L Carbon Dioxide 18 L Anion Gap 29 H BUN 33 H Creatinine 1.70 H Est GFR ( Amer) 57 L Est GFR (Non-Af Amer) 47 L Glucose 553 H* POC Glucose Direct Bilirubin 0.6 H Alkaline Phosphatase 146 H Urine Protein Urine Glucose (UA) Urine Ketones 08/02/17 08/02/17 14:21 14:59 WBC Hgb Hct MCV MCH RDW Plt Count Seg Neuts % (Manual) Lymphocytes % (Manual) Monocytes % (Manual) Abs Neuts (Manual) Abs Monocytes (Manual) VBG pH VBG pCO2 Potassium Chloride Carbon Dioxide Anion Gap BUN Creatinine Est GFR ( Amer) Est GFR (Non-Af Amer) Glucose POC Glucose 520 H* Direct Bilirubin Alkaline Phosphatase Urine Protein 100 H Urine Glucose (UA) >=500 H Urine Ketones 80 H Discharge - Discharge Clinical Impression: Vomiting and diarrhea Diabetic ketoacidosis Qualifiers: Diabetes mellitus type: type 1 Diabetes mellitus complication detail: without coma Qualified Code(s): E10.10 - Type 1 diabetes mellitus with ketoacidosis without coma Condition: Stable Disposition: ADMITTED INPATIENT Admitting Provider: Hospitalist Unit Admitted: IMCU
[2017-08-02 14:21] LABS: VENOUS BLOOD BASE EXCESS -1.1 mmol/L; VENOUS BLOOD HCO3 20.2 mmol/L (20-32); VENOUS BLOOD PCO2 24.4 mmHg (35-63); VENOUS BLOOD PH 7.54 (7.30-7.42)
[2017-08-02 14:22] LABS: HEMATOCRIT 34.6 % (37.9-51.0); HEMOGLOBIN 11.2 g/dL (13.5-17.0); MEAN CORPUSCULAR HEMOGLOBIN 23.8 pg (27.0-33.4); MEAN CORPUSCULAR HGB CONC 32.4 g/dL (32.0-36.0); MEAN CORPUSCULAR VOLUME 73 fl (80-97); RED BLOOD COUNT 4.72 10^6/uL (4.35-5.55); RED CELL DISTRIBUTION WIDTH 17.8 % (11.5-14.0); WHITE BLOOD COUNT 15.7 10^3/uL (4.0-10.5)
[2017-08-02 14:44] LABS: ALANINE AMINOTRANSFERASE 30 U/L (21-72); ALBUMIN 4.6 g/dL (3.5-5.0); ALKALINE PHOSPHATASE 146 U/L (38-126); ASPARTATE AMINO TRANSFERASE 23 U/L (17-59); BILIRUBIN,DIRECT 0.6 mg/dL (0.0-0.4); BILIRUBIN,TOTAL 1.2 mg/dL (0.2-1.3); BLOOD UREA NITROGEN 33 mg/dL (7-20); CALCIUM 10.2 mg/dL (8.4-10.2); CARBON DIOXIDE 18 mmol/L (22-30); CHLORIDE 91 mmol/L (98-107); POTASSIUM 5.7 mmol/L (3.6-5.0); TOTAL PROTEIN 7.4 g/dL (6.3-8.2)
[2017-08-02] MEDS ORDERED: ONDANSETRON HCL INJ/PF 4 MG/2 ML SDV IV ONE (14:44)
[2017-08-02 14:47] LABS: ANISOCYTOSIS 2+; BASOPHILS % (MANUAL) 0 % (0-2); BURR CELLS SLIGHT; EOSINOPHILS % (MANUAL) 0 % (0-6); LYMPHOCYTES % (MANUAL) 7 % (13-45); MICROCYTOSIS 1+; OVALOCYTES 1+; POIKILOCYTOSIS 2+; SCHISTOCYTES SLIGHT; TOTAL CELLS COUNTED 100; TOXIC GRANULATION 1+; TOXIC VACUOLATION PRESENT
[2017-08-02 14:48] LABS: TEAR DROP CELLS SLIGHT
[2017-08-02 14:54] LABS: SODIUM 138.4 mmol/L (137-145)
[2017-08-02 14:56] LABS: ANION GAP 29 (5-19)
[2017-08-02 14:58] LABS: GLUCOSE 553 mg/dL (75-110)
[2017-08-02 15:11] LABS: APPEARANCE,URINE CLEAR; BILIRUBIN,URINE NEGATIVE (NEGATIVE); GLUCOSE, URINE >=500 mg/dL (NEGATIVE); KETONES,URINE 80 mg/dL (NEGATIVE); LEUKOCYTE ESTERASE,URINE NEGATIVE (NEGATIVE); NITRITE,URINE NEGATIVE (NEGATIVE); PROTEIN,URINE 100 mg/dL (NEGATIVE); URINE SPECIFIC GRAVITY 1.014; UROBILINOGEN,URINE NEGATIVE mg/dL (<2.0)
[2017-08-02 15:27] LABS: URINE BARBITURATES SCREEN NEGATIVE; URINE METHADONE SCREEN NEGATIVE; URINE OPIATES LOW NEGATIVE; URINE PHENCYCLIDINE SCREEN NEGATIVE
[2017-08-02] MEDS ORDERED: DEXTROSE 40% GEL 15 GM TUBE PO PRN ×2 (15:33)
[2017-08-02] MEDS ORDERED: DEXTROSE 50%-WATER 25 GM/50 ML DISP.SYRIN IV PRN ×2 (15:33)
[2017-08-02] MEDS ORDERED: NORMAL SALINE 100 ML with INSULIN REGULAR, HUMAN 100 UNIT IV PRN ×4 (15:33→16:35)
[2017-08-02] MEDS ORDERED: GLUCAGON,HUMAN RECOMB 1 MG INJ IM PRN (15:33)
--- NOTE | 2017-08-02 16:29 | PDOC H&P ---
History of Present Illness History of Present Illness: LENA SCHULZ is a 31 year old -Guyanese male with a past medical history of myocardial infarction back in May of this year, diabetes mellitus with multiple episodes of DKA hospitalized at this facility, hypertension who presents to the service in [facility]. Unfortunately the patient is not very forthcoming with information. And during this interview was very difficult to get complete answers. Also the patient has refused to allow me to perform certain medical examinations. According to the patient he started having vomiting and diarrhea yesterday. He currently has no PCP. It is unclear to me if he attempted to take anything [id number] for his symptoms or if he attempted to seek medical care. However, I do not think he did. Patient usually takes Levemir 58 units. He is answers yes to my question about whether or not he takes mealtime insulin and sliding scale insulin. Unfortunately, he cannot tell me how much. The fact that he takes any insulin at all his information that I obtained from the ER. He denies any blood in his stool but states that he did have blood in his emesis. He will agree that he has abdominal pain chest discomfort and shortness of breath. He denies any recent sick contacts and will not answer if he has had any fevers or chills. In the emergency room the patient's blood sugar was found to be 520 with a anion gap of 29 and a white blood cell count of 15.7. His heart rate was 130. Chest x-ray was done and was clear. Patient was not started on any insulin. I have asked the emergency room to go ahead and get that going. Apparently, the patient was seen here in [facility] back in May of this year. His troponins trended upward and he was transferred to [facility] to see Dr. Álvarez, the testing specialist there. According to the patient he was ultimately transferred out to [place]. He tells me that he had a heart attack but cannot elaborate on much more. Past Medical History Cardiac Medical History: Reports: Myocardial Infarction - May 2017., Hypertension Pulmonary Medical History: Reports: Asthma - as child Neurological Medical History: Reports: Migraine Endocrine Medical History: Reports: Diabetes Mellitus Type 1 Psychiatric Medical History: Reports: Bipolar Disorder, Depression Hematology: Past Surgical History Past Surgical History: Reports: Appendectomy, Other - Froid teeth extraction Social History Information Source: Patient Smoking Status: Current Every Day Smoker Cigarettes Packs Per Day: 1 Frequency of Alcohol Use: None Hx Recreational Drug Use: No Drugs: None Hx Prescription Drug Abuse: Yes - Advance Directive Resuscitation Status: Full Code Family History Family History: DM, Hypertension Parental Family History Reviewed: No - Patient not cooperative with history gathering during interview Children Family History Reviewed: No Sibling(s) Family History Reviewed.: No Medication/Allergy Allergies/Adverse Reactions: No Known Allergies Allergy (Verified 03/07/17 16:50) Review of Systems Review of Systems: Limited review of systems is obtained as the patient is not very cooperative. Pertinent positives and negatives are as per the HPI. In addition the patient denies joint pain. Physical Exam Vital Signs: GENERAL: In general is a well-developed well-nourished appearing - Guyanese male resting in bed appearing restless and agitated but in no acute distress. HEENT: Normocephalic. Atraumatic. Trachea is midline. Sclera are anicteric. Mucous membranes are not examined due to patient cooperation. HEART: Tachycardic. No obvious murmurs rubs or gallops. Telemetry shows a blood pressure of 168 systolic as well as a heart rate of 128 LUNGS: [The patient refuses to allow me to examine his lungs posteriorly. On the anterior perspective he sounds clear. He is complaining at the bedside of shortness of breath and citing that is the reason why I cannot listen to him. He is tachypneic at a rate of 23.] ABDOMEN: [Soft, diffusely tender, nondistended with normoactive bowel sounds] EXTREMETIES: [No clubbing, cyanosis or edema. 2+ peripheral pulses bilaterally. Strength is not examined due to lack of cooperation] NEURO: [Awake, alert and oriented 3. Complete neurologic assessment is not performed due to lack of cooperation. The patient moves all extremities.] Results Laboratory Results: 08/02/17 14:05 08/02/17 08/02/17 08/02/17 14:05 14:05 14:05 WBC 15.7 H RBC 4.72 Hgb 11.2 L Hct 34.6 L MCV 73 L MCH 23.8 L MCHC 32.4 RDW 17.8 H Plt Count 486 H Seg Neutrophils % Not Reportable Lymphocytes % Not Reportable Monocytes % Not Reportable Eosinophils % Not Reportable Basophils % Not Reportable Absolute Neutrophils Not Reportable Absolute Lymphocytes Not Reportable Absolute Monocytes Not Reportable Absolute Eosinophils Not Reportable Absolute Basophils Not Reportable VBG pH 7.54 H VBG pCO2 24.4 L VBG HCO3 20.2 VBG Base Excess -1.1 Sodium 138.4 Potassium 5.7 H Chloride 91 L Carbon Dioxide 18 L Anion Gap 29 H BUN 33 H Creatinine 1.70 H Est GFR ( Amer) 57 L Est GFR (Non-Af Amer) 47 L Glucose 553 H* Calcium 10.2 Total Bilirubin 1.2 AST 23 ALT 30 Alkaline Phosphatase 146 H Total Protein 7.4 Albumin 4.6 Urine Color Urine Appearance Urine pH Ur Specific Wallace Urine Protein Urine Glucose (UA) Urine Ketones Urine Blood Urine Nitrite Ur Leukocyte Esterase Urine WBC (Auto) Urine RBC (Auto) 08/02/17 14:59 WBC RBC Hgb Hct MCV MCH MCHC RDW Plt Count Seg Neutrophils % Lymphocytes % Monocytes % Eosinophils % Basophils % Absolute Neutrophils Absolute Lymphocytes Absolute Monocytes Absolute Eosinophils Absolute Basophils VBG pH VBG pCO2 VBG HCO3 VBG Base Excess Sodium Potassium Chloride Carbon Dioxide Anion Gap BUN Creatinine Est GFR ( Amer) Est GFR (Non-Af Amer) Glucose Calcium Total Bilirubin AST ALT Alkaline Phosphatase Total Protein Albumin Urine Color STRAW Urine Appearance CLEAR Urine pH 6.0 Ur Specific Wallace 1.014 Urine Protein 100 H Urine Glucose (UA) >=500 H Urine Ketones 80 H Urine Blood NEGATIVE Urine Nitrite NEGATIVE Ur Leukocyte Esterase NEGATIVE Urine WBC (Auto) 0 Urine RBC (Auto) 0 Assessment & Plan - Diagnosis (1) DKA (diabetic ketoacidoses) Qualifiers: Diabetes mellitus type: type 1 Diabetes mellitus complication detail: without coma Qualified Code(s): E10.10 - Type 1 diabetes mellitus with ketoacidosis without coma Plan: Begin insulin drip. Continue to gap is closed. Change fluids at less than 250. Accu-Cheks every 2 hours (2) CAD (coronary artery disease) Plan: Status post [place] in May. The patient was transferred out to [facility] and then subsequently to [facility]. Will try and obtain records from both facilities to figure out what happened. (3) Vomiting and diarrhea Plan: This may be a viral gastroenteritis. Obtain stool sample. White count is up but this may be up because the patient is in DKA. As needed Reglan for nausea (4) ARF (acute renal failure) Plan: Secondary to underlying DKA. Continue IV fluids. (5) Acute hyperkalemia Plan: Falsely elevated because of DKA. Continue to monitor. Replace as necessary. - Time Time Spent: 30 to 50 Minutes
[2017-08-02] MEDS ORDERED: IPRATROPIUM/ALBUTEROL 0.5-2.5 MG/3 ML AMPUL NEB PRN ×2 (16:30→18:30)
[2017-08-02] MEDS ORDERED: NORMAL SALINE 1000 ML 1,000 ML IV PRN (16:30)
[2017-08-02] MEDS ORDERED: ACETAMINOPHEN 650 MG SUPP.RECT PR PRN (16:30)
[2017-08-02] MEDS ORDERED: INSULIN REG, HUMAN 100 UNIT/ML 3 ML VIAL (PYX) ONE ×2 (16:45→17:02)
[2017-08-02 17:52] LABS: BLOOD UREA NITROGEN 36 mg/dL (7-20); CALCIUM 9.7 mg/dL (8.4-10.2); CREATININE RESULT 1.67 mg/dL (0.52-1.25)
[2017-08-02 18:01] LABS: CARBON DIOXIDE 16 mmol/L (22-30); CHLORIDE 100 mmol/L (98-107); POTASSIUM 5.5 mmol/L (3.6-5.0); SODIUM 141.4 mmol/L (137-145)
[2017-08-02 18:04] LABS: ANION GAP 25 (5-19)
[2017-08-02 18:07] LABS: GLUCOSE 569 mg/dL (75-110)
[2017-08-02] MEDS ORDERED: HYDRALAZINE HCL INJ/PF 20 MG/1 ML SDV IV PRN (18:54)
[2017-08-02] MEDS ORDERED: ENOXAPARIN SODIUM INJ 40 MG/0.4 ML DISP.SYRIN SUBCUT ONE (19:30)
[2017-08-02 21:04] LABS: BLOOD UREA NITROGEN 43 mg/dL (7-20); CREATININE RESULT 1.81 mg/dL (0.52-1.25)
[2017-08-02 21:26] LABS: ANION GAP 26 (5-19)
[2017-08-02] MEDS: METOPROLOL TARTRATE 25 MG TABLET PO SCH (21:26)
[2017-08-02 21:27] LABS: CARBON DIOXIDE 15 mmol/L (22-30); CHLORIDE 102 mmol/L (98-107); SODIUM 142.6 mmol/L (137-145)
[2017-08-02 21:28] LABS: GLUCOSE 503 mg/dL (75-110)
--- NOTE | 2017-08-02 22:50 | EKG REPORT ---
SEVERITY:- ABNORMAL ECG - SINUS TACHYCARDIA PROBABLE INFERIOR INFARCT, OLD BORDERLINE PROLONGED QT INTERVAL : Confirmed by: Zakiya Francis 02-Aug-2017 22:50:00
[2017-08-03] MEDS ORDERED: NORMAL SALINE 1000 ML 1,000 ML IV PRN (00:59)
[2017-08-03 01:54] LABS: ANION GAP 16 (5-19); BLOOD UREA NITROGEN 44 mg/dL (7-20); CALCIUM 9.1 mg/dL (8.4-10.2); CHLORIDE 101 mmol/L (98-107); CREATININE RESULT 1.85 mg/dL (0.52-1.25); GLUCOSE 275 mg/dL (75-110); POTASSIUM 4.3 mmol/L (3.6-5.0); SODIUM 141.5 mmol/L (137-145)
[2017-08-03 02:13] LABS: CARBON DIOXIDE 25 mmol/L (22-30)
[2017-08-03] MEDS ORDERED: POTASSI CL 20 MEQ/D5-1/2NS 1L 1,000 ML IV ONE (03:32)
[2017-08-03] MEDS ORDERED: POTASSI CL 20 MEQ/D5-1/2NS 1L 1000 ML IV PRN (03:54)
[2017-08-03 06:04] LABS: HEMATOCRIT 29.3 % (37.9-51.0); HEMOGLOBIN 9.3 g/dL (13.5-17.0); HGB HCT DIFFERENCE -1.4; MEAN CORPUSCULAR HEMOGLOBIN 23.1 pg (27.0-33.4); MEAN CORPUSCULAR HGB CONC 31.6 g/dL (32.0-36.0); MEAN CORPUSCULAR VOLUME 73 fl (80-97); RED BLOOD COUNT 4.02 10^6/uL (4.35-5.55); RED CELL DISTRIBUTION WIDTH 18.5 % (11.5-14.0); WHITE BLOOD COUNT 20.2 10^3/uL (4.0-10.5)
[2017-08-03 06:28] LABS: BASOPHILS % (MANUAL) 1 % (0-2); EOSINOPHILS % (MANUAL) 0 % (0-6); LYMPHOCYTES % (MANUAL) 7 % (13-45); TOTAL CELLS COUNTED 100
[2017-08-03 06:31] LABS: ANISOCYTOSIS 2+; HYPOCHROMASIA SLIGHT; MICROCYTOSIS 1+; OVALOCYTES 1+; POIKILOCYTOSIS SLIGHT; TEAR DROP CELLS SLIGHT; TOXIC VACUOLATION PRESENT
[2017-08-03 08:00] LABS: ANION GAP 12 (5-19); BLOOD UREA NITROGEN 38 mg/dL (7-20); CALCIUM 8.4 mg/dL (8.4-10.2); CARBON DIOXIDE 24 mmol/L (22-30); CHLORIDE 107 mmol/L (98-107); CREATININE RESULT 1.53 mg/dL (0.52-1.25); GLUCOSE 172 mg/dL (75-110); MAGNESIUM 2.4 mg/dL (1.6-2.3); POTASSIUM 4.4 mmol/L (3.6-5.0); SODIUM 143.2 mmol/L (137-145)
[2017-08-03] MEDS: ENOXAPARIN SODIUM INJ 40 MG/0.4 ML DISP.SYRIN SUBCUT SCH (10:52)
[2017-08-03] MEDS: METOPROLOL TARTRATE 25 MG TABLET PO SCH ×2 (10:52→21:13)
--- NOTE | 2017-08-03 10:55 | PDOC PROGRESS REPORT ---
Subjective Progress Note for:: 08/03/17 Subjective:: reasons for visit: f/u DKA, leukocytosis, pain HPI: per H&P - LENA SCHULZ is a 31 year old -Vietnamese male with a past medical history of myocardial infarction back in May of this year, diabetes mellitus with multiple episodes of DKA hospitalized at this facility, hypertension who presents to the service in [facility]. Unfortunately the patient is not very forthcoming with information. And during this interview was very difficult to get complete answers. Also the patient has refused to allow me to perform certain medical examinations. According to the patient he started having vomiting and diarrhea yesterday. He currently has no PCP. It is unclear to me if he attempted to take anything [id number] for his symptoms or if he attempted to seek medical care. However, I do not think he did. Patient usually takes Levemir 58 units. He is answers yes to my question about whether or not he takes mealtime insulin and sliding scale insulin. Unfortunately, he cannot tell me how much. The fact that he takes any insulin at all his information that I obtained from the ER. He denies any blood in his stool but states that he did have blood in his emesis. He will agree that he has abdominal pain chest discomfort and shortness of breath. He denies any recent sick contacts and will not answer if he has had any fevers or chills. In the emergency room the patient's blood sugar was found to be 520 with a anion gap of 29 and a white blood cell count of 15.7. His heart rate was 130. Chest x-ray was done and was clear. Patient was not started on any insulin. I have asked the emergency room to go ahead and get that going. Apparently, the patient was seen here in [facility] back in May of this year. His troponins trended upward and he was transferred to [facility] to see Dr. Álvarez, the bearing ring assembler there. According to the patient he was ultimately transferred out to [place]. He tells me that he had a heart attack but cannot elaborate on much more. nursing continues to report he will not cooperate with them or his care. he remains very stoic for me and borderline confrontational during my interview and exam which is severely limited by his participation. He claims to have no recollection of what happened to him while at [place] nor does he seem to care and displays a poor attitude regarding his interactions with medical community. Apparently he has a history of similar behaviors while admitted here in the past. ROS: he c/o generalized pain but will not localize or characterize it for me and will not allow palpation or percussion of his organ systems. Physical Exam Vital Signs: Temp Pulse Resp BP Pulse Ox 98.4 F 101 H 16 133/72 H 100 08/03/17 08:09 08/03/17 08:09 08/03/17 08:09 08/03/17 08:09 08/03/17 08:09 Intake & Output 08/02/17 08/03/17 08/04/17 06:59 06:59 06:59 Intake Total 2300 Output Total 600 Balance 1700 Weight 98.8 kg severely limited by his participation General appearance: PRESENT: no acute distress - lying in bed with eyes closed; turns away from me when I attempt to engage him Mouth exam: PRESENT: moist Respiratory exam: PRESENT: clear to auscultation juan ramon, unlabored. ABSENT: accessory muscle use Cardiovascular exam: PRESENT: RRR, tachycardia. ABSENT: systolic murmur GI/Abdominal exam: PRESENT: guarding, normal bowel sounds, soft, tenderness. ABSENT: distended Extremities exam: ABSENT: pedal edema Neurological exam: PRESENT: alert, awake, oriented to person, oriented to place , oriented to time Psychiatric exam: PRESENT: agitated. ABSENT: suicidal ideation Skin exam: ABSENT: rash Results Laboratory Results: 08/03/17 05:15 08/03/17 07:29 08/02/17 08/02/17 08/03/17 20:40 22:44 00:55 WBC RBC Hgb Hct MCV MCH MCHC RDW Plt Count Seg Neutrophils % Lymphocytes % Monocytes % Eosinophils % Basophils % Absolute Neutrophils Absolute Lymphocytes Absolute Monocytes Absolute Eosinophils Absolute Basophils Sodium 142.6 141.5 Potassium 5.0 4.3 Chloride 102 101 Carbon Dioxide 15 L 25 D Anion Gap 26 H 16 BUN 43 H 44 H Creatinine 1.81 H 1.85 H Est GFR ( Amer) 53 L 52 L Est GFR (Non-Af Amer) 44 L 43 L Glucose 503 H* 413 H* 275 H Calcium 9.0 9.1 Magnesium TSH 08/03/17 08/03/17 08/03/17 05:15 05:15 05:15 WBC 20.2 H RBC 4.02 L Hgb 9.3 L Hct 29.3 L MCV 73 L MCH 23.1 L MCHC 31.6 L RDW 18.5 H Plt Count 478 H Seg Neutrophils % Not Reportable Lymphocytes % Not Reportable Monocytes % Not Reportable Eosinophils % Not Reportable Basophils % Not Reportable Absolute Neutrophils Not Reportable Absolute Lymphocytes Not Reportable Absolute Monocytes Not Reportable Absolute Eosinophils Not Reportable Absolute Basophils Not Reportable Sodium Cancelled Potassium Cancelled Chloride Cancelled Carbon Dioxide Cancelled Anion Gap Cancelled BUN Cancelled Creatinine Cancelled Est GFR ( Amer) Cancelled Est GFR (Non-Af Amer) Cancelled Glucose Cancelled Calcium Cancelled Magnesium Cancelled TSH 0.21 L 08/03/17 07:29 WBC RBC Hgb Hct MCV MCH MCHC RDW Plt Count Seg Neutrophils % Lymphocytes % Monocytes % Eosinophils % Basophils % Absolute Neutrophils Absolute Lymphocytes Absolute Monocytes Absolute Eosinophils Absolute Basophils Sodium 143.2 Potassium 4.4 Chloride 107 Carbon Dioxide 24 Anion Gap 12 BUN 38 H Creatinine 1.53 H Est GFR ( Amer) > 60 Est GFR (Non-Af Amer) 53 L Glucose 172 H Calcium 8.4 Magnesium 2.4 H TSH Assessment & Plan - Diagnosis (1) DKA (diabetic ketoacidoses) Qualifiers: Diabetes mellitus type: type 1 Diabetes mellitus complication detail: without coma Qualified Code(s): E10.10 - Type 1 diabetes mellitus with ketoacidosis without coma Is this a current diagnosis for this admission?: Yes Plan: AG closed but i can still smell ketones on his breath so I recommend continuing insulin gtt for now and will re-eval later inthe day as he allows. continue aggressive IVFs and agree with change to D5 with 20meg KCL. f/u labs if he will allow. No clear source for this latest episode and difficult to ascertain given his cooperation or lack thereof. (2) CAD (coronary artery disease) Qualifiers: Coronary Disease-Associated Artery/Lesion type: unspecified vessel or lesion type Associated angina: with unspecified angina Is this a current diagnosis for this admission?: Yes Plan: ck troponin now if he will allow; further rec's to follow. nurses's instructed to f/u on old records but so far he has refused to sign the release form (3) Vomiting and diarrhea Is this a current diagnosis for this admission?: Yes Plan: resolved; advance diet as tolerated (4) ARF (acute renal failure) Is this a current diagnosis for this admission?: Yes Plan: resolved; continue IVFs as noted above - Time Time Spent with patient: 15-24 minutes Medications reviewed and adjusted accordingly: Yes
[2017-08-03 11:11] LABS: ANION GAP 14 (5-19); BLOOD UREA NITROGEN 33 mg/dL (7-20); CALCIUM 8.6 mg/dL (8.4-10.2); CARBON DIOXIDE 25 mmol/L (22-30); CHLORIDE 106 mmol/L (98-107); GLUCOSE 104 mg/dL (75-110); POTASSIUM 4.1 mmol/L (3.6-5.0); SODIUM 145.3 mmol/L (137-145)
[2017-08-03] MEDS ORDERED: ONDANSETRON HCL INJ/PF 4 MG/2 ML SDV IV PRN (11:38)
--- NOTE | 2017-08-03 11:41 | RADIOLOGY REPORT (SQ) ---
"EXAM DESCRIPTION: CHEST SINGLE VIEW COMPLETED DATE/TIME: 08/03/2017 11:11 am REASON FOR STUDY: chest pain COMPARISON: May 2017 EXAM PARAMETERS: NUMBER OF VIEWS: One view. TECHNIQUE: Single frontal radiographic view of the chest acquired. RADIATION DOSE: NA LIMITATIONS: None. FINDINGS: LUNGS AND PLEURA: No opacities, masses or pneumothorax. No pleural effusion. MEDIASTINUM AND HILAR STRUCTURES: No masses. Contour normal. HEART AND VASCULAR STRUCTURES: Cardiac silhouette remains enlarged and is unchanged in configuration. BONES: No acute findings. HARDWARE: None in the chest. OTHER: No other significant finding. IMPRESSION: Cardiomegaly. No acute consolidations or pleural effusions are identified. TECHNICAL DOCUMENTATION: JOB ID: [id number] [employer] | [employer]- All Rights Reserved"
[2017-08-03] MEDS ORDERED: PANTOPRAZOLE SODIUM 40 MG VIAL IV ONE (12:30)
[2017-08-03] MEDS ORDERED: INSULIN REG, HUMAN 100 UNIT/ML 3 ML VIAL (PYX) SUBCUT PRN (12:43)
[2017-08-03] MEDS ORDERED: INSULIN DETEMIR 100 UNIT/ML 3 ML PEN SUBCUT ONE (14:00)
--- NOTE | 2017-08-03 15:46 | EKG REPORT ---
SEVERITY:- BORDERLINE ECG - SINUS TACHYCARDIA PROBABLE LEFT ATRIAL ABNORMALITY BORDERLINE T WAVE ABNORMALITIES : Confirmed by: Zakiya Francis 03-Aug-2017 15:46:03
[2017-08-03] MEDS ORDERED: POTASSI CL 20 MEQ/1/2NS 1L 1000 ML IV PRN (15:57)
[2017-08-03 16:04] LABS: ANION GAP 14 (5-19); BLOOD UREA NITROGEN 25 mg/dL (7-20); CARBON DIOXIDE 20 mmol/L (22-30); CHLORIDE 102 mmol/L (98-107); CREATININE RESULT 1.33 mg/dL (0.52-1.25); GLUCOSE 387 mg/dL (75-110); POTASSIUM 4.5 mmol/L (3.6-5.0); SODIUM 135.9 mmol/L (137-145)
[2017-08-03] MEDS: METOCLOPRAMIDE HCL INJ/PF 10 MG/2 ML SDV IV SCH ×2 (17:26→23:25)
[2017-08-03] MEDS: ACETAMINOPHEN 325 MG TABLET PO PRN ×2 (17:27→23:10)
[2017-08-03 19:12] LABS: ANION GAP 15 (5-19); BLOOD UREA NITROGEN 26 mg/dL (7-20); CALCIUM 8.3 mg/dL (8.4-10.2); CARBON DIOXIDE 20 mmol/L (22-30); CHLORIDE 98 mmol/L (98-107); CREATININE RESULT 1.31 mg/dL (0.52-1.25); POTASSIUM 4.8 mmol/L (3.6-5.0)
[2017-08-03 19:29] LABS: GLUCOSE 506 mg/dL (75-110)
[2017-08-03] MEDS ORDERED: NORMAL SALINE 1000 ML 1,000 ML IV ONE (19:40)
[2017-08-03] MEDS ORDERED: INSULIN REG, HUMAN 100 UNIT/ML 3 ML VIAL (PYX) IV ONE (19:41)
[2017-08-03] MEDS: NORMAL SALINE 1000 ML 1,000 ML IV PRN (21:01)
[2017-08-03] MEDS: PANTOPRAZOLE SODIUM 40 MG VIAL IV SCH (21:13)
[2017-08-03] MEDS: INSULIN REG, HUMAN 100 UNIT/ML 3 ML VIAL (PYX) SUBCUT PRN (21:13)
[2017-08-03] MEDS: MORPHINE SULFATE 10 MG/ML INJ IV PRN (23:25)
[2017-08-03] MEDS: SUCRALFATE SUSP 1 GM/10 ML UDCUP PO SCH (23:31)
[2017-08-04 04:22] LABS: ABSOLUTE BASOPHILS # (AUTO) 0.1 10^3/uL (0.0-0.2); ABSOLUTE EOSINOPHILS # (AUTO) 0.1 10^3/uL (0.0-0.6); ABSOLUTE LYMPHOCYTES (AUTO) 1.9 10^3/uL (0.5-4.7); ABSOLUTE MONOCYTES (AUTO) 1.3 10^3/uL (0.1-1.4); ABSOLUTE NEUT (AUTO) 11.1 10^3/uL (1.7-8.2); BASOPHILS % (AUTO) 0.8 % (0-2); EOSINOPHILS % (AUTO) 0.5 % (0-6); HEMATOCRIT 26.2 % (37.9-51.0); HEMOGLOBIN 8.5 g/dL (13.5-17.0); HGB HCT DIFFERENCE -0.7; LYMPHOCYTES % (AUTO) 13.3 % (13-45); MEAN CORPUSCULAR HEMOGLOBIN 23.4 pg (27.0-33.4); MEAN CORPUSCULAR HGB CONC 32.4 g/dL (32.0-36.0); MEAN CORPUSCULAR VOLUME 72 fl (80-97); MONOCYTES % (AUTO) 9.1 % (3-13); RED BLOOD COUNT 3.63 10^6/uL (4.35-5.55); RED CELL DISTRIBUTION WIDTH 17.9 % (11.5-14.0); SEGMENTED NEUTROPHILS % (AUTO) 76.3 % (42-78); WHITE BLOOD COUNT 14.5 10^3/uL (4.0-10.5)
[2017-08-04 04:35] LABS: ANION GAP 12 (5-19); BLOOD UREA NITROGEN 15 mg/dL (7-20); CALCIUM 8.6 mg/dL (8.4-10.2); CARBON DIOXIDE 26 mmol/L (22-30); CHLORIDE 104 mmol/L (98-107); CREATININE RESULT 1.13 mg/dL (0.52-1.25); GLUCOSE 112 mg/dL (75-110); POTASSIUM 4.1 mmol/L (3.6-5.0); SODIUM 141.8 mmol/L (137-145)
[2017-08-04] MEDS: NORMAL SALINE 1000 ML 1,000 ML IV PRN ×2 (05:42→19:54)
[2017-08-04] MEDS: METOCLOPRAMIDE HCL INJ/PF 10 MG/2 ML SDV IV SCH ×3 (05:42→17:23)
[2017-08-04] MEDS: SUCRALFATE SUSP 1 GM/10 ML UDCUP PO SCH ×4 (05:42→23:29)
[2017-08-04] MEDS: ACETAMINOPHEN 325 MG TABLET PO PRN (07:48)
--- NOTE | 2017-08-04 09:42 | PDOC PROGRESS REPORT ---
Subjective Progress Note for:: 08/04/17 Subjective:: This is a follow-up visit for DKA. Events of yesterday were reviewed. Events of yesterday were subsequently discussed with nursing. The patient is still quite short with his answers. He does tell me that he has chest discomfort and a headache. He says yes that his chest discomfort is similar to what he experienced during his heart attack. Physical Exam Vital Signs: Temp Pulse Resp BP Pulse Ox 98.9 F 92 16 159/90 H 95 08/04/17 07:50 08/04/17 09:11 08/04/17 09:11 08/04/17 07:50 08/04/17 09:11 Intake & Output 08/03/17 08/04/17 08/05/17 06:59 06:59 06:59 Intake Total 2300 5172 Output Total 600 5140 Balance 1700 32 Weight 98.8 kg 101.1 kg GENERAL: In general is a well-developed well-nourished appearing - Jamaican male resting in bed appearing in no acute distress. HEART: Regular rate and rhythm no obvious murmurs rubs or gallops. LUNGS: Clear from the posterior perspective bilaterally. The patient did not breathe deeply. ABDOMEN: Soft, diffusely tender, nondistended with normoactive bowel sounds EXTREMETIES: [No clubbing, cyanosis or edema. NEURO: Awake, alert and oriented 3. Results Laboratory Results: 08/04/17 03:20 08/04/17 03:20 08/03/17 08/03/17 08/03/17 10:28 15:20 18:35 WBC RBC Hgb Hct MCV MCH MCHC RDW Plt Count Seg Neutrophils % Lymphocytes % Monocytes % Eosinophils % Basophils % Absolute Neutrophils Absolute Lymphocytes Absolute Monocytes Absolute Eosinophils Absolute Basophils Sodium 145.3 H 135.9 L 133.0 L Potassium 4.1 4.5 4.8 Chloride 106 102 98 Carbon Dioxide 25 20 L 20 L Anion Gap 14 14 15 BUN 33 H 25 H 26 H Creatinine 1.50 H 1.33 H 1.31 H Est GFR ( Amer) > 60 > 60 > 60 Est GFR (Non-Af Amer) 54 L > 60 > 60 Glucose 104 387 H 506 H* Calcium 8.6 8.0 L 8.3 L 08/04/17 08/04/17 03:20 03:20 WBC 14.5 H RBC 3.63 L Hgb 8.5 L Hct 26.2 L MCV 72 L MCH 23.4 L MCHC 32.4 RDW 17.9 H Plt Count 349 Seg Neutrophils % 76.3 Lymphocytes % 13.3 Monocytes % 9.1 Eosinophils % 0.5 Basophils % 0.8 Absolute Neutrophils 11.1 H Absolute Lymphocytes 1.9 Absolute Monocytes 1.3 Absolute Eosinophils 0.1 Absolute Basophils 0.1 Sodium 141.8 Potassium 4.1 Chloride 104 Carbon Dioxide 26 Anion Gap 12 BUN 15 Creatinine 1.13 Est GFR ( Amer) > 60 Est GFR (Non-Af Amer) > 60 Glucose 112 H Calcium 8.6 08/03/17 08/03/17 10:28 11:50 Creatine Kinase 228 H Troponin I 0.016 Impressions: Chest X-Ray 08/03/17 10:45 IMPRESSION: Cardiomegaly. No acute consolidations or pleural effusions are identified. Assessment & Plan - Diagnosis (1) DKA (diabetic ketoacidoses) Qualifiers: Diabetes mellitus type: type 1 Diabetes mellitus complication detail: without coma Qualified Code(s): E10.10 - Type 1 diabetes mellitus with ketoacidosis without coma Is this a current diagnosis for this admission?: Yes Plan: Status post insulin drip. Gap is closed. Continue Levemir, continue sliding scale insulin. Nausea and vomiting are resolved. (2) CAD (coronary artery disease) Qualifiers: Coronary Disease-Associated Artery/Lesion type: unspecified vessel or lesion type Associated angina: with unspecified angina Is this a current diagnosis for this admission?: Yes Plan: Status post [place] in May. The patient was transferred out to [facility] and then subsequently to [facility]. Will try and obtain records from both facilities to figure out what happened. The patient agrees today to sign the form. It is my understanding that yesterday he refused. (3) Vomiting and diarrhea Is this a current diagnosis for this admission?: Yes Plan: This may be a viral gastroenteritis. Obtain stool sample is negative. As needed Reglan for nausea. (4) ARF (acute renal failure) Is this a current diagnosis for this admission?: Yes Plan: Resolved. (5) Acute hyperkalemia Plan: Falsely elevated because of DKA. Resolved (6) Chest pain Plan: Patient states that he is having some chest pain as well as a headache. Review of what happened yesterday, troponins are negative EKG largely unchanged. Patient apparently has a history of ulcer in the esophagus. He was started on twice daily PPI. It may be that his chest discomfort is related to this. Will add Ultram to his regimen. Avoid opioid narcotics if possible and reserve them for active cardiac pain. (7) Leukocytosis Qualifiers: Leukocytosis type: unspecified Qualified Code(s): D72.829 - Elevated white blood cell count, unspecified Plan: Patient still has a leukocytosis. His stool cultures were negative. His diarrhea has stopped. The patient had a negative urinalysis and chest x-ray. No thing that has been done his blood cultures. We will can certainly add that on. If his diarrhea returns we will add on the C. difficile. - Time Time Spent with patient: 15-24 minutes Anticipated discharge: Home
[2017-08-04] MEDS: METOPROLOL TARTRATE 25 MG TABLET PO SCH ×2 (10:52→21:35)
[2017-08-04] MEDS: ENOXAPARIN SODIUM INJ 40 MG/0.4 ML DISP.SYRIN SUBCUT SCH (10:53)
[2017-08-04] MEDS: INSULIN REG, HUMAN 100 UNIT/ML 3 ML VIAL (PYX) SUBCUT PRN (10:53)
[2017-08-04] MEDS: INSULIN DETEMIR 100 UNIT/ML 3 ML PEN SUBCUT SCH (10:54)
[2017-08-04] MEDS: PANTOPRAZOLE SODIUM 40 MG VIAL IV SCH ×2 (10:55→21:35)
[2017-08-04 15:27] LABS: ANION GAP 10 (5-19); BLOOD UREA NITROGEN 11 mg/dL (7-20); CALCIUM 8.6 mg/dL (8.4-10.2); CARBON DIOXIDE 27 mmol/L (22-30); CHLORIDE 103 mmol/L (98-107); GLUCOSE 183 mg/dL (75-110); POTASSIUM 3.8 mmol/L (3.6-5.0); SODIUM 139.6 mmol/L (137-145)
[2017-08-04] MEDS: TRAMADOL HCL 50 MG TABLET PO PRN (16:06)
[2017-08-04] MEDS: MORPHINE SULFATE 10 MG/ML INJ IV PRN (19:50)
[2017-08-04 20:21] LABS: ANION GAP 10 (5-19); BLOOD UREA NITROGEN 9 mg/dL (7-20); CALCIUM 8.8 mg/dL (8.4-10.2); CARBON DIOXIDE 27 mmol/L (22-30); CHLORIDE 106 mmol/L (98-107); CREATININE RESULT 0.99 mg/dL (0.52-1.25); GLUCOSE 95 mg/dL (75-110); POTASSIUM 3.8 mmol/L (3.6-5.0); SODIUM 142.6 mmol/L (137-145)
[2017-08-04 20:33] LABS: CREATINE KINASE MB 0.69 ng/mL (<4.55); TROPONIN I < 0.012 ng/mL
[2017-08-05] MEDS: METOCLOPRAMIDE HCL INJ/PF 10 MG/2 ML SDV IV SCH ×5 (00:18→23:33)
[2017-08-05] MEDS: MORPHINE SULFATE 10 MG/ML INJ IV PRN (00:18)
[2017-08-05] MEDS: SUCRALFATE SUSP 1 GM/10 ML UDCUP PO SCH ×4 (06:24→23:33)
--- NOTE | 2017-08-05 09:15 | EKG REPORT ---
SEVERITY:- BORDERLINE ECG - SINUS RHYTHM BORDERLINE INFERIOR Q WAVES : Confirmed by: Zakiya Francis 05-Aug-2017 09:14:35
[2017-08-05] MEDS: ENOXAPARIN SODIUM INJ 40 MG/0.4 ML DISP.SYRIN SUBCUT SCH (10:59)
[2017-08-05] MEDS: METOPROLOL TARTRATE 25 MG TABLET PO SCH (10:59)
[2017-08-05] MEDS: ACETAMINOPHEN 325 MG TABLET PO PRN (11:00)
[2017-08-05] MEDS: INSULIN DETEMIR 100 UNIT/ML 3 ML PEN SUBCUT SCH (11:01)
[2017-08-05] MEDS: PANTOPRAZOLE SODIUM 40 MG VIAL IV SCH ×2 (11:02→21:33)
[2017-08-05] MEDS: INSULIN REG, HUMAN 100 UNIT/ML 3 ML VIAL (PYX) SUBCUT PRN ×2 (12:24→22:33)
[2017-08-05 13:20] LABS: ANION GAP 14 (5-19); BLOOD UREA NITROGEN 10 mg/dL (7-20); CALCIUM 9.1 mg/dL (8.4-10.2); CARBON DIOXIDE 23 mmol/L (22-30); CHLORIDE 102 mmol/L (98-107); CREATININE RESULT 1.02 mg/dL (0.52-1.25); GLUCOSE 276 mg/dL (75-110); POTASSIUM 4.2 mmol/L (3.6-5.0); SODIUM 139.2 mmol/L (137-145)
[2017-08-05] MEDS ORDERED: HYDRALAZINE HCL INJ/PF 20 MG/1 ML SDV IV PRN (13:30)
[2017-08-05] MEDS ORDERED: ONDANSETRON HCL INJ/PF 4 MG/2 ML SDV IV PRN (14:00)
[2017-08-05] MEDS ORDERED: MORPHINE SULFATE 10 MG/ML INJ IV PRN (14:00)
[2017-08-05] MEDS ORDERED: METOPROLOL TARTRATE 25 MG TABLET PO ONE (14:00)
--- NOTE | 2017-08-05 14:43 | PDOC PROGRESS REPORT ---
Subjective Progress Note for:: 08/05/17 Subjective:: This is a follow-up visit for DKA. Events of yesterday were reviewed. Patient reports continued chest discomfort and headache. He states he still feels nauseous. He has not been vomiting. He confirms that he has a decreased appetite. Physical Exam Vital Signs: Temp Pulse Resp BP Pulse Ox 99.1 F 87 18 187/99 H 100 08/05/17 11:31 08/05/17 11:31 08/05/17 11:31 08/05/17 11:31 08/05/17 11:31 Intake & Output 08/04/17 08/05/17 08/06/17 06:59 06:59 06:59 Intake Total 5172 5069 518 Output Total 5140 4660 2125 Balance 32 1709 -1607 Weight 101.1 kg 99.3 kg GENERAL: In general is a well-developed well-nourished appearing - French male resting in bed appearing in no acute distress. HEART: Regular rate and rhythm no obvious murmurs rubs or gallops. LUNGS: Clear from the posterior perspective bilaterally. The patient did not breathe deeply. ABDOMEN: Soft, nondistended with normoactive bowel sounds EXTREMETIES: No clubbing, cyanosis or edema. NEURO: Awake, alert and oriented 3. Results Laboratory Results: 08/04/17 03:20 08/05/17 12:20 08/04/17 08/04/17 08/05/17 15:00 19:50 12:20 Sodium 139.6 142.6 139.2 Potassium 3.8 3.8 4.2 Chloride 103 106 102 Carbon Dioxide 27 27 23 Anion Gap 10 10 14 BUN 11 9 10 Creatinine 1.00 0.99 1.02 Est GFR ( Amer) > 60 > 60 > 60 Est GFR (Non-Af Amer) > 60 > 60 > 60 Glucose 183 H 95 276 H Calcium 8.6 8.8 9.1 08/03/17 08/03/17 08/04/17 10:28 11:50 19:50 Creatine Kinase 228 H 115 CK-MB (CK-2) Troponin I 0.016 08/04/17 19:50 Creatine Kinase CK-MB (CK-2) 0.69 Troponin I < 0.012 Impressions: Chest X-Ray 11/18/17 10:45 IMPRESSION: Cardiomegaly. No acute consolidations or pleural effusions are identified. Assessment & Plan - Diagnosis (1) DKA (diabetic ketoacidoses) Qualifiers: Diabetes mellitus type: type 1 Diabetes mellitus complication detail: without coma Qualified Code(s): E10.10 - Type 1 diabetes mellitus with ketoacidosis without coma Is this a current diagnosis for this admission?: Yes Plan: Resolved. Continue before meals at bedtime finger checks as well as blood sugar checks. Discontinue q. 4 hour BMP. The patient's blood sugars have been labile. In part this is due to the fact that he will not eat any solid food. She will only drink liquids. Continue IV fluids because of this. He was at 58 units of Levemir nightly, he is currently at 40 with some highs. Continue to monitor and adjust accordingly. (2) CAD (coronary artery disease) Qualifiers: Coronary Disease-Associated Artery/Lesion type: unspecified vessel or lesion type Associated angina: with unspecified angina Is this a current diagnosis for this admission?: Yes Plan: Status post [place] in May. The patient was transferred out to [facility] and then subsequently to [facility]. Will try and obtain records from both facilities to figure out what happened. The patient agreed yesterday to sign the form. It is been faxed but nothing has returned. When I have asked the escrow secretary to fax it again. Patient still complains of chest pain. We will consult Dr. Drummond. Troponins have been negative. (3) Vomiting and diarrhea Is this a current diagnosis for this admission?: Yes Plan: Resolved. (4) ARF (acute renal failure) Is this a current diagnosis for this admission?: Yes Plan: Secondary to underlying DKA. Resolved. (5) Acute hyperkalemia Plan: Falsely elevated because of DKA. Resolved. (6) Chest pain Plan: Patient states that he is having some chest pain as well as a headache. troponins are negative, EKG largely unchanged. Patient apparently has a history of ulcer in the esophagus. He was started on twice daily PPI. It may be that his chest discomfort is related to this. Continue Ultram. Today the patient has refused this. He prefers to have morphine. I am going to add on Carafate. It is unclear as to whether or not his decrease appetite is due to any pain that he may have when he eats. The patient is reluctant to answer any questions. Will consult Dr. Drummond. - Time Time Spent with patient: 15-24 minutes Anticipated discharge: Home
[2017-08-05] MEDS: TRAMADOL HCL 50 MG TABLET PO PRN (18:56)
[2017-08-05] MEDS: NORMAL SALINE 1000 ML 1,000 ML IV PRN (20:54)
[2017-08-05] MEDS: METOPROLOL TARTRATE 50 MG TABLET PO SCH (21:32)
[2017-08-06] MEDS: SUCRALFATE SUSP 1 GM/10 ML UDCUP PO SCH ×4 (04:47→23:29)
[2017-08-06] MEDS: METOCLOPRAMIDE HCL INJ/PF 10 MG/2 ML SDV IV SCH ×4 (05:08→23:29)
[2017-08-06] MEDS: PANTOPRAZOLE SODIUM 40 MG VIAL IV SCH (10:47)
[2017-08-06] MEDS: METOPROLOL TARTRATE 50 MG TABLET PO SCH ×2 (10:47→21:04)
[2017-08-06] MEDS: INSULIN DETEMIR 100 UNIT/ML 3 ML PEN SUBCUT SCH (10:48)
[2017-08-06] MEDS: NORMAL SALINE 1000 ML 1,000 ML IV PRN ×2 (10:50→21:06)
[2017-08-06] MEDS: ENOXAPARIN SODIUM INJ 40 MG/0.4 ML DISP.SYRIN SUBCUT SCH (10:51)
[2017-08-06] MEDS: TRAMADOL HCL 50 MG TABLET PO PRN ×2 (11:25→23:29)
--- NOTE | 2017-08-06 13:05 | PDOC CONSULTATION ---
Consultation Consult Date: 08/06/17 Attending physician:: GARTH Hutchins BUSTEED Consult reason:: Chest pain, diabetic ketoacidosis History of Present Illness Admission Date/PCP: 08/02/17 17:32 Patient complains of: No complaints this morning History of Present Illness: LENA SCHULZ is a 31 year old -Belarusian male with a past medical history of myocardial infarction back in May of this year, diabetes mellitus with multiple episodes of DKA hospitalized at this facility, hypertension who presents to the service in [facility]. Unfortunately the patient is not very forthcoming with information. And during this interview was very difficult to get complete answers. Also the patient has refused to allow me to perform certain medical examinations. According to the patient he started having vomiting and diarrhea yesterday. He currently has no PCP. It is unclear to me if he attempted to take anything [id number] for his symptoms or if he attempted to seek medical care. However, I do not think he did. Patient usually takes Levemir 58 units. He is answers yes to my question about whether or not he takes mealtime insulin and sliding scale insulin. Unfortunately, he cannot tell me how much. The fact that he takes any insulin at all his information that I obtained from the ER. He denies any blood in his stool but states that he did have blood in his emesis. He will agree that he has abdominal pain chest discomfort and shortness of breath. He denies any recent sick contacts and will not answer if he has had any fevers or chills. In the emergency room the patient's blood sugar was found to be 520 with a anion gap of 29 and a white blood cell count of 15.7. His heart rate was 130. Chest x-ray was done and was clear. Patient was not started on any insulin. I have asked the emergency room to go ahead and get that going. Apparently, the patient was seen here in [facility] back in May of this year. His troponins trended upward and he was transferred to [facility] to see Dr. Álvarez, the logistic specialist there. According to the patient he was ultimately transferred out to [place]. He tells me that he had a heart attack but cannot elaborate on much more. This history was reviewed. Patient was interviewed this morning. He denied any chest pain or any shortness of breath. He was noted to be comfortable laying in bed. Patient's troponin I has been negative. He EKGs has been negative. Past Medical History Cardiac Medical History: Reports: Myocardial Infarction - May 2017., Hypertension Denies: Congestive Heart Failure, DVT, Hyperlipidema, Pulmonary Embolism Pulmonary Medical History: Reports: Asthma - as child Denies: Chronic Obstructive Pulmonary Disease (COPD), Sleep Apnea Neurological Medical History: Reports: Migraine Denies: Seizures Endocrine Medical History: Reports: Diabetes Mellitus Type 1 Denies: Diabetes Mellitus Type 2, Hyperthyroidism, Hypothyroidism GI Medical History: Denies: Cirrhosis, Gastroesophageal Reflux Disease, Hepatitis Musculoskeltal Medical History: Denies: Arthritis Psychiatric Medical History: Reports: Bipolar Disorder, Depression Hematology: Infectious Medical History: Denies: Clostridium Difficile, Methicillin-Resistant Staph Aureus Past Surgical History Past Surgical History: Reports: Appendectomy, Other - [place] teeth extraction Social History Information Source: Patient Smoking Status: Current Every Day Smoker Cigarettes Packs Per Day: 1 Frequency of Alcohol Use: None Hx Recreational Drug Use: No Drugs: None Hx Prescription Drug Abuse: Yes - Advance Directive Resuscitation Status: Full Code Family History Family History: DM, Hypertension Parental Family History Reviewed: Yes Children Family History Reviewed: Yes Sibling(s) Family History Reviewed.: Yes Medication/Allergy Home Medications: Insulin Aspart [Novolog Flexpen] 19 unit SUBCUT AC 08/02/17 Insulin Detemir [Levemir Insulin 300 Units/3 ml Insuln.pen] 58 unit SUBCUT QHS 08/02/17 Allergies/Adverse Reactions: No Known Allergies Allergy (Verified 03/07/17 16:50) Review of Systems Review of Systems: This is somewhat limited as patient was noted to be lethargic and drowsy but did answer to direct questioning. Please see history of present illness and past medical history as wall. Constitutional: No fever or chills reported. Head : No recent chronic headaches, recent head injury. Eyes: No recent eye pain, diplopia, redness, discharge, acute visual changes. Ears: No recent chronic ear pain, acute hearing loss, ear discharge. Oral cavity: No recent ulcerations, bleeding, oral cavity discomfort. Neck: No recent acute neck pain reported. Hematologic: No recent easy bruising or bleeding or hematologic malignancy reported. Lymphatic: No recent lymphatic malignancy, chronic lymphadenopathy reported yet Cardiovascular system review: See history of present illness. Questionable history of myocardial infarction Respiratory system review: No recent chronic cough, hemoptysis, blood clots in the lungs reported. Mild Shortness of breath on exertion Gastrointestinal system review: Negative for any recent acute or chronic abdominal pain, hematemesis, melena, recent change in bowel habits. Genitourinary system review: No recent acute or chronic hematuria, flank pain, UTI etc. reported. Skin system review: Negative for any recent abnormal bruising, no rash, no pruritus reported. Neurologic: No prior history of strokes, mini strokes, seizure disorder. Psychologic: No history of major psychosis or major depression reported. Musculoskeletal: Minor aches and pains reported. No acute joint swelling reported. Endocrine: No recent polyuria, polydipsia, recent heat or cold intolerance. Physical Exam Vital Signs: Temp Pulse Resp BP Pulse Ox 98.5 F 73 19 141/89 H 100 08/06/17 07:51 08/06/17 07:51 08/06/17 07:51 08/06/17 07:51 08/06/17 07:51 Intake & Output 08/05/17 08/06/17 08/07/17 06:59 06:59 06:59 Intake Total 5069 5790 518 Output Total 3360 4025 700 Balance 1709 1765 -182 Weight 99.3 kg 100 kg Exam: GENERAL: well-nourished and in no acute distress. Alert and oriented x3 HEAD: Atraumatic, normocephalic. EYES: Pupils equal round and reactive to light, extraocular movements intact, sclera anicteric, conjunctiva are normal. ENT: TMs normal, nares patent, oropharynx clear without exudates. Moist mucous membranes. No oral ulcerations or bleeding gums noted NECK: supple without lymphadenopathy. Trachea is central. No cervical or axillary lymphadenopathy noted. Carotids are 2+, JVD WNL LUNGS: Respiration seems nonlabored, no significant accessory muscle action noted. Breath sounds clear to auscultation bilaterally and equal noted. No wheezes rales or rhonchi noted. No significant dullness noted on percussion. CHEST: Palpation of the chest wall shows no significant chest wall tenderness. No other significant abnormalities noted. HEART: Dexter SEAM CHECKER, No PSH, 1/6 GEOVANNA aortic area, 1/6 bloom systolic murmur mitral area, no rubs, no gallops. ABDOMEN: Soft, no significant tenderness appreciated, normoactive bowel sounds. No guarding, no rebound. No rigidity noted . No masses appreciated. EXTREMITIES: Pedal pulses are 1-2+, no calf tenderness noted. No clubbing or cyanosis.trace to 1+ pedal edema noted NEUROLOGICAL: Focused neurological exam showed no significant neurologic deficit. Normal speech, no focal weakness appreciated. Patient able to move all 4 extremities. PSYCH: This could not be checked as patient is somewhat noncooperative and did not want to answer certain questions. SKIN: No significant ecchymosis, rash, ulcerations or signs of pruritus noted. MUSCULOSKELETAL EXAM: No significant joint swelling noted. Results Laboratory Results: 08/04/17 03:20 08/05/17 12:20 08/05/17 12:20 Sodium 139.2 Potassium 4.2 Chloride 102 Carbon Dioxide 23 Anion Gap 14 BUN 10 Creatinine 1.02 Est GFR ( Amer) > 60 Est GFR (Non-Af Amer) > 60 Glucose 276 H Calcium 9.1 08/03/17 08/03/17 08/04/17 10:28 11:50 19:50 Creatine Kinase 228 H 115 CK-MB (CK-2) Troponin I 0.016 08/04/17 19:50 Creatine Kinase CK-MB (CK-2) 0.69 Troponin I < 0.012 EKG Comments: Sinus rhythm, no acute ST-T wave changes are noted Impressions: Chest X-Ray 08/03/17 10:45 IMPRESSION: Cardiomegaly. No acute consolidations or pleural effusions are identified. Assessment & Plan - Diagnosis (1) Chest pain Qualifiers: Chest pain type: unspecified Qualified Code(s): R07.9 - Chest pain, unspecified Is this a current diagnosis for this admission?: Yes (2) DKA (diabetic ketoacidoses) Qualifiers: Diabetes mellitus type: type 1 Diabetes mellitus complication detail: without coma Qualified Code(s): E10.10 - Type 1 diabetes mellitus with ketoacidosis without coma Is this a current diagnosis for this admission?: Yes (3) Hypertension Qualifiers: Hypertension type: essential hypertension Qualified Code(s): I10 - Essential (primary) hypertension Is this a current diagnosis for this admission?: Yes (4) Hx of noncompliance with medical treatment, presenting hazards to health Is this a current diagnosis for this admission?: Yes - Notes Notes: Chest pain: So far cardiac enzymes and EKGs been negative. Recommend repeating EKGs and cardiac enzymes for today. If these are negative I feel that it would be reasonably safe for patient to be sent home. This is especially in view of her negative cardiac cath in May 2017. Feel that patient's myocardial infarction at that time could have been related to coronary vasospasm from cocaine abuse. Of course a stress test would need to be scheduled, however I am told that the stress lab is closed. Will obtain a 2D echo to make sure there is no pericardial effusion or evidence of pericarditis. Recommend obtaining paperwork and previous evaluation report from other hospitals. Recommend statin therapy, WON/ARB therapy, long-acting nitrate therapy, antiplatelet therapy, Plavix may be safer than aspirin in this case. However agree with holding it since patient may have active GI bleed. Hypertension: Recommend good management of blood pressure. Diabetic ketoacidosis: Patient being expertly managed by hospitalist. - Time Time Spent: 30 to 50 Minutes - More than 50% of the time spent coordinating care , discussing management plans with involved caregivers. Management plans discussed with involved personnels. Medical decision making was of moderate to high complexity, patient's has multiple comorbidities. Medications reviewed and adjusted accordingly: Yes
[2017-08-06 14:22] LABS: CHOLESTEROL 150.54 mg/dL (0-200); Direct HDL 41 mg/dL (>40); TRIGLYCERIDES 158 mg/dL (<150)
[2017-08-06 14:32] LABS: DIRECT LDL 71 mg/dL (<100)
[2017-08-06 14:33] LABS: VLDL CHOLESTEROL 31.6 mg/dL (10-31)
--- NOTE | 2017-08-06 17:38 | PDOC PROGRESS REPORT ---
Subjective Progress Note for:: 08/06/17 Subjective:: Patient complains of some substernal chest pain. Physical Exam Vital Signs: Temp Pulse Resp BP Pulse Ox 98.0 F 84 20 148/95 H 100 08/06/17 15:21 08/06/17 15:21 08/06/17 15:21 08/06/17 15:21 08/06/17 15:21 Intake & Output 08/05/17 08/06/17 08/07/17 06:59 06:59 06:59 Intake Total 5069 5790 518 Output Total 3360 4025 700 Balance 1709 1765 -182 Weight 99.3 kg 100 kg General appearance: PRESENT: no acute distress Eye exam: PRESENT: conjunctiva pink. ABSENT: scleral icterus Mouth exam: PRESENT: moist, tongue midline Neck exam: ABSENT: JVD Respiratory exam: PRESENT: clear to auscultation juan ramon. ABSENT: rales, rhonchi, wheezes Cardiovascular exam: PRESENT: RRR. ABSENT: diastolic murmur, rubs, systolic murmur GI/Abdominal exam: PRESENT: normal bowel sounds, soft. ABSENT: distended, guarding, mass, organolmegaly, rebound, tenderness Extremities exam: ABSENT: calf tenderness, clubbing, pedal edema Neurological exam: PRESENT: alert, awake, oriented to person, oriented to place , oriented to time, oriented to situation, CN II-XII grossly intact. ABSENT: motor sensory deficit Psychiatric exam: PRESENT: appropriate affect Skin exam: PRESENT: dry, intact, warm. ABSENT: cyanosis, rash Results Laboratory Results: 08/04/17 03:20 08/05/17 12:20 08/06/17 13:39 Triglycerides 158 H Cholesterol 150.54 LDL Cholesterol Direct 71 VLDL Cholesterol 31.6 H HDL Cholesterol 41 08/03/17 08/03/17 08/04/17 10:28 11:50 19:50 Creatine Kinase 228 H 115 CK-MB (CK-2) Troponin I 0.016 08/04/17 08/06/17 19:50 13:39 Creatine Kinase CK-MB (CK-2) 0.69 Troponin I < 0.012 < 0.012 Impressions: Chest X-Ray 08/03/17 10:45 IMPRESSION: Cardiomegaly. No acute consolidations or pleural effusions are identified. Assessment & Plan - Diagnosis (1) DKA (diabetic ketoacidoses) Qualifiers: Diabetes mellitus type: type 1 Diabetes mellitus complication detail: without coma Qualified Code(s): E10.10 - Type 1 diabetes mellitus with ketoacidosis without coma Is this a current diagnosis for this admission?: Yes Plan: The patient's DKA has resolved. Continue with insulin. (2) Chest pain Qualifiers: Chest pain type: unspecified Qualified Code(s): R07.9 - Chest pain, unspecified Is this a current diagnosis for this admission?: Yes Plan: This most likely is not cardiac in nature. Cardiology has been consulted. (3) CAD (coronary artery disease) Qualifiers: Coronary Disease-Associated Artery/Lesion type: unspecified vessel or lesion type Associated angina: with unspecified angina Is this a current diagnosis for this admission?: Yes Plan: Unlikely that the chest pain is related to his coronary artery disease. Cardiology has been consulted. (4) Hypertension Qualifiers: Hypertension type: essential hypertension Qualified Code(s): I10 - Essential (primary) hypertension Is this a current diagnosis for this admission?: Yes - Time Time Spent with patient: 25-34 minutes - Inpatient Certification Medical Necessity: Need Close Monitoring Due to Risk of Patient Decompensation - Plan Summary Plan Summary: If he continues to improve we can hopefully discharge home tomorrow.
[2017-08-06] MEDS: INSULIN REG, HUMAN 100 UNIT/ML 3 ML VIAL (PYX) SUBCUT PRN ×2 (18:07→22:23)
--- NOTE | 2017-08-06 19:15 | XCELERA REPORT ---
[address] [address] Transthoracic Echocardiogram Report Name: LENA SCHULZ Age: 31 yrs Gender: Male : 1985 Patient Status: Inpatient Patient Location: [address] [place] [address] Study Date: 08/06/2017 01:49 PM Height: 73 in Weight: 220 lb BSA: 2.2 m2 Procedure: A complete two-dimensional transthoracic echocardiogram was performed (2D, M-mode, spectral and color flow Doppler). The study was technically difficult with many images being suboptimal in quality. Reason For Study: LVEF Ordering Physician: ZAKIYA MARTINEZ Performed By: Evelina Cotton Interpretation Summary The left ventricular ejection fraction is normal. There is borderline concentric left ventricular hypertrophy. The left ventricle is grossly normal size. Doppler measurements suggest impaired left ventricular relaxation, which is associated with grade I/IV or mild diastolic dysfunction No regional wall motion abnormalities noted. The right ventricular systolic function is normal. The left atrial size is normal. The right atrium is normal. There is a trace amount of mitral regurgitation There is no mitral valve stenosis. No aortic regurgitation is present. There is no aortic valve stenosis There is a trace or physiologic amount of tricuspid regurgitation Tricuspid regurgitation jet envelope not well defined to measure RV systolic pressure accurately. The aortic root is not well visualized but is probably normal size. The inferior vena cava was not well visualized There is no pericardial effusion. MMode/2D Measurements & Calculations RVDd: 3.5 cm LVIDd: 4.7 cm FS: 43.0 % Ao root diam: 3.0 cm IVSd: 1.0 cm LVIDs: 2.7 cm EDV(Teich): 100.0 ml LVPWd: 0.97 cmESV(Teich): 25.9 ml Ao root area: 6.9 cm2 EF(Teich): 74.1 % LA dimension: 3.5 cm LVOT diam: 2.2 cm LVOT area: 3.7 cm2 Doppler Measurements & Calculations MV E max earline: MV P1/2t max earline: Ao V2 max: LV V1 max P.0 cm/sec 67.5 cm/sec 143.3 cm/sec 5.2 mmHg MV A max earline: MV P1/2t: 92.3 msec Ao max PG: LV V1 max: 68.5 cm/sec MVA(P1/2t): 2.4 cm2 8.2 mmHg 114.1 cm/sec MV E/A: 0.99 MV dec slope: MICHELLE(V,D): 3.0 cm2 214.1 cm/sec2 PA V2 max: TR max earline: 124.5 cm/sec 232.1 cm/sec PA max PG: TR max P.6 mmHg 6.2 mmHg Left Ventricle The left ventricle is grossly normal size. There is borderline concentric left ventricular hypertrophy. The left ventricular ejection fraction is normal. Doppler measurements suggest impaired left ventricular relaxation, which is associated with grade I/IV or mild diastolic dysfunction. No regional wall motion abnormalities noted. Right Ventricle The right ventricle is grossly normal size. There is normal right ventricular wall thickness. The right ventricular systolic function is normal. Atria The right atrium is normal. The left atrial size is normal. Interarterial septum not well visualized and not well dopplered. Cannot comment on ASD/PFO presence. Mitral Valve The mitral valve is grossly normal. There is no mitral valve stenosis. There is a trace amount of mitral regurgitation. Aortic Valve The aortic valve is grossly normal. There is no aortic valve stenosis. No aortic regurgitation is present. Tricuspid Valve The tricuspid valve is not well visualized, but is grossly normal. There is a trace or physiologic amount of tricuspid regurgitation. Tricuspid regurgitation jet envelope not well defined to measure RV systolic pressure accurately. Pulmonic Valve The pulmonic valve is not well visualized. Great Vessels The aortic root is not well visualized but is probably normal size. The inferior vena cava was not well visualized. Effusions There is no pericardial effusion. : ZAKIYA MARTINEZ > Zakiya Martinez
[2017-08-06] MEDS: ACETAMINOPHEN 325 MG TABLET PO PRN (21:05)
--- NOTE | 2017-08-06 21:12 | EKG REPORT ---
SEVERITY:- BORDERLINE ECG - SINUS RHYTHM NONSPECIFIC T ABNORMALITIES, LATERAL LEADS : Confirmed by: Arin Drummond MD 06-Aug-2017 21:11:34
[2017-08-07] MEDS: NORMAL SALINE 1000 ML 1,000 ML IV PRN (04:54)
[2017-08-07] MEDS: SUCRALFATE SUSP 1 GM/10 ML UDCUP PO SCH ×2 (05:10→12:03)
[2017-08-07] MEDS: METOCLOPRAMIDE HCL INJ/PF 10 MG/2 ML SDV IV SCH ×2 (05:10→12:03)
[2017-08-07] MEDS: METOPROLOL TARTRATE 50 MG TABLET PO SCH (09:27)
[2017-08-07] MEDS: INSULIN DETEMIR 100 UNIT/ML 3 ML PEN SUBCUT SCH (10:13)
[2017-08-07 11:27] VITALS: BP 129/68
--- NOTE | 2017-08-07 16:10 | PDOC DISCHARGE SUMMARY ---
General - Admit/Disc Date/PCP Admission Date/Primary Care Provider: 08/02/17 17:32 Discharge Date: 08/07/17 - Discharge Diagnosis (1) DKA (diabetic ketoacidoses) Is this a current diagnosis for this admission?: Yes (2) Chest pain Is this a current diagnosis for this admission?: Yes Summary: Negative cardiac enzymes. The patient had a recent heart catheterization that showed no evidence for blocked arteries. Echocardiogram shows some diastolic dysfunction. (3) CAD (coronary artery disease) Is this a current diagnosis for this admission?: Yes (4) Hypertension Is this a current diagnosis for this admission?: Yes - Additional Information Resuscitation Status: Full Code Discharge Diet: Cardiac, Diabetic Discharge Activity: Activity As Tolerated Home Medications: Insulin Aspart [Novolog Flexpen] 19 unit SUBCUT AC 08/02/17 Insulin Detemir [Levemir Insulin 100 units/mL] 58 unit SUBCUT QHS 08/02/17 Metoprolol Tartrate [Lopressor 50 mg Tablet] 50 mg PO Q12 #60 tablet 08/07/17 Sucralfate [Carafate Susp 1 gm/10 ml Udcup] 1 gm PO Q6 #120 udc 08/07/17 History of Present Illness History of Present Illness: LENA SCHULZ is a 31 year old male who has a history of myocardial infarction secondary to substance abuse as well as diabetes who presented with nausea vomiting diarrhea. The patient also had not been taking his insulin. When he presented to emergency room he was found to have diabetic ketoacidosis with a blood sugar of 520 and anion gap of 29. The patient also was tachycardic and clearly volume depleted. Patient is admitted for treatment of diabetic ketoacidosis. Hospital Course Hospital Course: 31-year-old male who presented with diabetic ketoacidosis. Patient was treated with an insulin drip and IV fluids and had resolution of his DKA. The patient then began to complain of chest pain. Troponins were done and they were unremarkable. The patient has a history of coronary artery disease with myocardial infarction but these have been substance abuse related. The patient was seen by cardiology consultation who performed an echocardiogram. This did show some diastolic dysfunction. It was felt that no further cardiac workup needed to be done as he had had a cardiac catheterization within the last year that showed no significant stenoses. [place] that his chest pain most likely was noncardiac in nature. Was felt the patient was stable for discharge to home. Physical Exam Vital Signs: Temp Pulse Resp BP Pulse Ox 98.5 F 63 16 129/68 H 97 08/07/17 11:23 08/07/17 11:23 08/07/17 11:23 08/07/17 11:23 08/07/17 11:23 Intake & Output 08/06/17 08/07/17 08/08/17 06:59 06:59 06:59 Intake Total 5731 5598 Output Total 4022 4227 Balance 1765 1373 Weight 100 kg 96.7 kg General appearance: PRESENT: no acute distress Eye exam: PRESENT: conjunctiva pink. ABSENT: scleral icterus Mouth exam: PRESENT: moist, tongue midline Neck exam: ABSENT: JVD Respiratory exam: PRESENT: clear to auscultation juan ramon. ABSENT: rales, rhonchi, wheezes Cardiovascular exam: PRESENT: RRR. ABSENT: diastolic murmur, rubs, systolic murmur GI/Abdominal exam: PRESENT: normal bowel sounds, soft. ABSENT: distended, guarding, mass, organolmegaly, rebound, tenderness Extremities exam: ABSENT: calf tenderness, clubbing, pedal edema Neurological exam: PRESENT: alert, awake, oriented to person, oriented to place , oriented to time, oriented to situation, CN II-XII grossly intact. ABSENT: motor sensory deficit Psychiatric exam: PRESENT: flat affect Skin exam: PRESENT: dry, intact, warm. ABSENT: cyanosis, rash Results Laboratory Results: 08/04/17 03:20 08/05/17 12:20 08/03/17 08/03/17 08/04/17 10:28 11:50 19:50 Creatine Kinase 228 H 115 CK-MB (CK-2) Troponin I 0.016 08/04/17 08/06/17 19:50 13:39 Creatine Kinase CK-MB (CK-2) 0.69 Troponin I < 0.012 < 0.012 Impressions: Chest X-Ray 08/03/17 10:45 IMPRESSION: Cardiomegaly. No acute consolidations or pleural effusions are identified. Qualifiers PATEINT BEING DISCHARGED WITH ANY OF THE FOLLOWING DIAGNOSIS?: No Plan Discharge Plan: Patient is discharged home in stable condition. Will follow with primary care in 1-2 weeks. Time Spent: Greater than 30 Minutes
--- NOTE | 2017-08-08 13:38 | PDOC PROGRESS REPORT ---
Subjective Progress Note for:: 08/07/17 Subjective:: Patient was seen on morning rounds yesterday. Patient labs were reviewed. It was felt that patient stable for discharge. This was communicated to the hospitalist. Patient was noted to be very manipulative and asking about pain medication for chest pain but refusing nitroglycerin but only excepting morphine. It was felt that patient may have a pain medication seeking behavior. So far his cardiac enzymes have all come back negative. EKGs have been relatively unremarkable. It was felt that in view of recent negative cardiac cath, negative enzymes and negative EKG, it is safe for patient to be discharged home. Patient was strongly advised to avoid any cocaine abuse as his previous myocardial infarction could have been related to that. Physical Exam Vital Signs: Temp Pulse Resp BP Pulse Ox 98.5 F 63 16 129/68 H 97 08/07/17 11:23 08/07/17 11:23 08/07/17 11:23 08/07/17 11:23 08/07/17 11:23 Intake & Output 08/07/17 08/08/17 08/09/17 06:59 06:59 06:59 Intake Total 5598 Output Total 4225 Balance 1373 Weight 96.7 kg Exam: GENERAL: well-nourished and in no acute distress. Alert and oriented x3 HEAD: Atraumatic, normocephalic. EYES: Pupils equal round and reactive to light, extraocular movements intact, sclera anicteric, conjunctiva are normal. ENT: TMs normal, nares patent, oropharynx clear without exudates. Moist mucous membranes. No oral ulcerations or bleeding gums noted NECK: supple without lymphadenopathy. Trachea is central. No cervical or axillary lymphadenopathy noted. Carotids are 2+, JVD WNL LUNGS: Respiration seems nonlabored, no significant accessory muscle action noted. Breath sounds clear to auscultation bilaterally and equal noted. No wheezes rales or rhonchi noted. No significant dullness noted on percussion. CHEST: Palpation of the chest wall shows chest wall tenderness. No other significant abnormalities noted. HEART: [place] C[facility] SPECIALIST, No PSH, 1/6 GEOVANNA aortic area, 1/6 bloom systolic murmur mitral area, no rubs, no gallops. ABDOMEN: Soft, no significant tenderness appreciated, normoactive bowel sounds. No guarding, no rebound. No rigidity noted . No masses appreciated. EXTREMITIES: Pedal pulses are 1-2+, no calf tenderness noted. No clubbing or cyanosis.trace to 1+ pedal edema noted NEUROLOGICAL: Focused neurological exam showed no significant neurologic deficit. Normal speech, no focal weakness appreciated. PSYCH: Normal mood, normal affect. Judgment and insight within normal limits. SKIN: No significant ecchymosis, rash, ulcerations or signs of pruritus noted. MUSCULOSKELETAL EXAM: No significant joint swelling noted. Results Laboratory Results: 08/04/17 03:20 08/05/17 12:20 08/03/17 08/03/17 08/04/17 10:28 11:50 19:50 Creatine Kinase 228 H 115 CK-MB (CK-2) Troponin I 0.016 08/04/17 08/06/17 19:50 13:39 Creatine Kinase CK-MB (CK-2) 0.69 Troponin I < 0.012 < 0.012 EKG Comments: Sinus rhythm no sustained tachycardia or bradycardia arrhythmias noted. Impressions: Chest X-Ray 08/03/17 10:45 IMPRESSION: Cardiomegaly. No acute consolidations or pleural effusions are identified. Assessment & Plan - Diagnosis (1) Chest pain Qualifiers: Chest pain type: unspecified Qualified Code(s): R07.9 - Chest pain, unspecified Is this a current diagnosis for this admission?: Yes (2) DKA (diabetic ketoacidoses) Qualifiers: Diabetes mellitus type: type 1 Diabetes mellitus complication detail: without coma Qualified Code(s): E10.10 - Type 1 diabetes mellitus with ketoacidosis without coma Is this a current diagnosis for this admission?: Yes (3) Hypertension Qualifiers: Hypertension type: essential hypertension Qualified Code(s): I10 - Essential (primary) hypertension Is this a current diagnosis for this admission?: Yes (4) Hx of noncompliance with medical treatment, presenting hazards to health Is this a current diagnosis for this admission?: Yes - Notes Notes: Patient chest pain is felt to be noncardiac based on negative enzymes, negative EKG and also recent negative cardiac cath. It is felt that patient may have a pains medication seeking behavior. Patient was strongly advised to avoid any cocaine use as his previous myocardial infarction was most likely related to that. This was discussed with hospitalist. Patient can follow-up with me as an outpatient if he wishes. - Time Time with patient: Greater than 35 minutes - Significant time was spent going through all medical records that came [facility]. Cath report, echocardiogram report etc. was reviewed. 2D echocardiogram obtained, results were reviewed. More than 50% of the time spent coordinating care, discussing management plans with involved caregivers. Management plans discussed with involved personnels. Medical decision making was of moderate to high complexity , patient's has multiple comorbidities. Medications reviewed and adjusted accordingly: Yes
== END 2017-08-07 12:04 | disposition home or self-care (01) | DRG 638 ==
LOC: ER 13:33 → EH 17:32 → 3S 18:57
PROVIDERS: ADMIT Emergency Medicine; ATTEND Emergency Medicine
DX: E10.10 Type 1 diabetes mellitus with ketoacidosis without coma (principal); N17.9 Acute kidney failure, unspecified; I10 Essential (primary) hypertension; I25.10 Atherosclerotic heart disease of native coronary artery without angina pectoris; F31.9 Bipolar disorder, unspecified; F17.210 Nicotine dependence, cigarettes, uncomplicated; E87.5 Hyperkalemia; D72.829 Elevated white blood cell count, unspecified; R07.89 Other chest pain; Z79.4 Long term (current) use of insulin; I25.2 Old myocardial infarction; T38.3X6A Underdosing of insulin and oral hypoglycemic [antidiabetic] drugs, initial encounter; Z90.49 Acquired absence of other specified parts of digestive tract; Y92.9 Unspecified place or not applicable; Z91.19 Patient's noncompliance with other medical treatment and regimen; Z82.49 Family history of ischemic heart disease and other diseases of the circulatory system; Z83.3 Family history of diabetes mellitus
CPT/HCPCS: 36415; 71010; 80048; 80053; 80061; 80307; 81001; 82550; 82553; 82803; 82947; 82962; 83036; 83735; 84443; 84484; 85025; 87045; 87205; 87493; 93005; 93010; 93306; 94640; 96361; 96374; 99285; J1650; J1815; J2270; J2405; J2765; J3480; J7030; J7620; S0164

== ENCOUNTER 2017-10-11 23:47 | Emergency (ER) | payer MEDICAID ==
[2017-10-12] MEDS ORDERED: LIDOCAINE 1%/EPINEPHRINE INJ 20 ML VIAL INJ ONE (01:41)
[2017-10-12] MEDS ORDERED: ACETAMINOPHEN 325 MG TABLET PO ONE (01:41)
[2017-10-12] MEDS ORDERED: NORMAL SALINE 1000 ML 1,000 ML IV ONE (01:41)
[2017-10-12] MEDS ORDERED: LIDOCAINE 4%/TETRACAINE 0.5%/EPI 0.18% 5 ML TOPICAL SOLN TOP ONE (01:41)
--- NOTE | 2017-10-12 01:44 | ER Document Report ---
ED General - General Chief Complaint: Laceration Stated Complaint: LACERATION VOMITING DIARRHEA Time Seen by Provider: 10/12/17 01:41 Notes: Patient is a 31-year-old male with past medical history of insulin-dependent diabetes who presents after a syncopal episode in which he struck his face on the ground. Patient states this occurred after having extensive vomiting and diarrhea over the past 48 hours. He states that when he stood up to walk towards his room he became lightheaded and passed out striking his forehead. He was complaining of a dull, constant throbbing pain to the right side of his forehead. Nothing improves or worsens the pain. He did sustain an associated laceration. He denies any trauma to the eye itself or any visual acuity changes. His tetanus is already up-to-date. In regards to the patient's vomiting and diarrhea: He denies any localized abdominal pain. Nothing improves or worsens his symptoms. Multiple sick contacts in the psychiatric hospital patient currently resides with the same symptoms. He was referred to the emergency department by [facility]. Patient denies any hyperglycemia noted on his glucometer readings at home. TRAVEL OUTSIDE OF THE [place] IN LAST 30 DAYS: No - Related Data Allergies/Adverse Reactions: No Known Allergies Allergy (Verified 03/07/17 16:50) Past Medical History - General Information source: Patient - Social History Smoking Status: Former Smoker Frequency of alcohol use: None Drug Abuse: None Lives with: Other - [facility] Family History: DM, Hypertension Patient has suicidal ideation: No Patient has homicidal ideation: No - Past Medical History Cardiac Medical History: Reports: Hx Heart Attack - May 2017., Hx Hypertension Denies: Hx Congestive Heart Failure, Hx DVT, Hx Hypercholesterolemia, Hx Pulmonary Embolism Pulmonary Medical History: Reports: Hx Asthma - as child Denies: Hx COPD, Hx Sleep Apnea Neurological Medical History: Reports: Hx Migraine. Denies: Hx Seizures Endocrine Medical History: Reports: Hx Diabetes Mellitus Type 1. Denies: Hx Diabetes Mellitus Type 2, Hx Hyperthyroidism, Hx Hypothyroidism Renal/ Medical History: Denies: Hx Peritoneal Dialysis GI Medical History: Denies: Hx Cirrhosis, Hx Gastroesophageal Reflux Disease, Hx Hepatitis Musculoskeltal Medical History: Denies Hx Arthritis Psychiatric Medical History: Reports: Hx Anxiety, Hx Bipolar Disorder, Hx Depression, Hx Schizophrenia Infectious Medical History: Denies: Hx C-Diff, Hx Hepatitis, Hx MRSA Past Surgical History: Reports: Hx Appendectomy, Hx Oral Surgery - wisdom teeth , Other - [place] teeth extraction - Immunizations Hx Diphtheria, Pertussis, Tetanus Vaccination: Yes Hx Pneumococcal Vaccination: 09/16/00 Review of Systems - Review of Systems Notes: Constitutional: Negative for fever. HENT: Negative for sore throat. Eyes: Negative for visual changes. Cardiovascular: Negative for chest pain. Positive for syncope Respiratory: Negative for shortness of breath. Gastrointestinal: Negative for abdominal pain, positive for vomiting and diarrhea Genitourinary: Negative for dysuria. Musculoskeletal: Negative for back pain. Skin: Positive for facial laceration Neurological: Negative for headaches, weakness or numbness. 10 point ROS negative except as marked above and in HPI. Physical Exam - Vital signs Vitals: Temp Pulse BP Pulse Ox 98.6 F 97 112/79 97 10/12/17 00:40 10/12/17 00:40 10/12/17 00:40 10/12/17 00:40 Interpretation: Normal Notes: PHYSICAL EXAMINATION: GENERAL: Well-appearing, no acute distress. HEAD: Mild swelling and bruising over the right eyebrow with an associated 2 cm laceration EYES: Pupils equal round and reactive to light, extraocular movements intact, sclera anicteric, conjunctiva are normal. ENT: nares patent, no oral pharyngeal trauma. No hemotympanum, no Glaser's sign , no raccoon eyes. NECK: No midline cervical spine tenderness. Patient able to move their head to 45 bilaterally without any discomfort. LUNGS: Breath sounds clear to auscultation bilaterally and equal. No wheezes rales or rhonchi. HEART: Regular rate and rhythm without murmurs. CHEST WALL: No ecchymosis over the chest wall. ABDOMEN: Soft, nontender, normoactive bowel sounds. No guarding, no rebound. No abdominal bruising EXTREMITIES: Normal range of motion, no pitting or edema. No long bone deformities. BACK: No midline spinal tenderness, step-offs, or deformities. NEUROLOGICAL: Face symmetric. Tongue protrudes midline. Extraocular motions intact. Pupils are 2 mm and equally reactive. Normal speech, normal gait. 5 out of 5 strength in both the distal and proximal upper and lower extremities bilaterally. Sensation is grossly intact throughout. Finger to nose testing normal. Pronator drift normal. PSYCH: Normal mood, normal affect. SKIN: Warm, Dry, normal turgor, laceration as above Course - Re-evaluation Re-evalutation: 10/12/17 01:42 Presentation of an overall well-appearing patient in no acute distress with complaints of nausea, vomiting, diarrhea. This is consistent with likely viral gastroenteritis. Multiple sick contacts with similar symptoms. Patient has no abdominal tenderness on exam and specifically no tenderness in the RLQ, LLQ, RUQ. Overall well hydrated on exam. Able to tolerate oral intake here in the emergency department. Low clinical suspicion for any acute life-threatening etiology based on exam and history including acute cholecystitis, SBO, appendicitis, nephrolithiasis, or pylonephritis. BMP without any evidence of significant dehydration or evidence of diabetic ketoacidosis. Creatinine similar to patient's baseline. Patient sustained a 2 cm laceration just below the right eyebrow which was closed with 3 sutures without difficulty. Tetanus is already up to date. Regarding patient's head trauma: No focal neurologic deficits on exam, no evidence of basilar skull fracture on exam without evidence of hemotympanum, raccoon eyes, or periauricular hematoma. No papilledema. Patient is not on anticoagulation. GCS is 15. No loss of consciousness. No episodes of vomiting. Patient is therefore negative via [place] head CT criteria and CT imaging will not be obtained at this time. An EKG was requested as patient had a syncopal episode today but he did decline the study stating he does not need one as he has had many in the past. At this time will discharge with return precautions and follow-up recommendations. Verbal discharge instructions given a the bedside and opportunity for questions given. Medication warnings reviewed. Patient is in agreement with this plan and has verbalized understanding of return precautions and the need for primary care follow-up in the next 24-72 hours. - Vital Signs Vital signs: Temp Pulse Resp BP Pulse Ox 98.6 F 97 112/79 97 10/12/17 00:40 10/12/17 00:40 10/12/17 00:40 10/12/17 00:40 - Laboratory Result Diagrams: 10/12/17 02:14 Laboratory results interpreted by me: 10/12/17 02:14 Chloride 110 H Creatinine 1.72 H Est GFR ( Amer) 56 L Est GFR (Non-Af Amer) 46 L Glucose 195 H Procedures - Laceration/Wound Repair Face Wound length (cm): 2 Wound's Depth, Shape: Superficial Laceration pre-procedure: Sterile PPE donned Anesthetic type: 1% Lidocaine w/epi Volume Anesthetic (mLs): 1 Wound explored: Clean Irrigated w/ Saline (mLs): 300 Wound Debrided: Minimal Wound Repaired With: Sutures Suture Size/Type: 6:0, Nylon Number of Sutures: 3 Post-procedure wound care: Sterile dressing applied Post-procedure NV exam normal: Yes Complications: No Discharge - Discharge Clinical Impression: Dehydration, Vomiting and diarrhea Forehead laceration Qualifiers: Encounter type: initial encounter Qualified Code(s): S01.81XA - Laceration without foreign body of other part of head, initial encounter Syncope Qualifiers: Syncope type: unspecified Qualified Code(s): R55 - Syncope and collapse Condition: Good Disposition: HOME, SELF-CARE Additional Instructions: Your symptoms are likely due to a viral illness and should resolve in the next several days. You can take [id number] loperamide also known as Imodium as needed for diarrhea per box instructions. Continue to stay hydrated with plenty of solution such as Gatorade or Pedialyte. You are being prescribed Zofran to take as needed for nausea and vomiting. Please return if you develop severe abdominal pain, pass out, become unable to tolerate any oral fluids for 12 more hours, or any other symptoms that are concerning to you. Please return to your primary doctor, the ED, or an urgent care in 7 days for suture removal. Return immediately if you develop spreading redness around the wound, pus from the wound, worsening pain, or a fever of >100.4. Keep the area clean and dry. Wash gently with soap and water twice daily and cover with antibiotic ointment. Prescriptions: Ondansetron [Zofran Odt 4 mg Tablet] 1 - 2 tab PO Q4H PRN #15 tab.rapdis PRN Reason: For Nausea/Vomiting
[2017-10-12 02:28] LABS: VENOUS BLOOD BASE EXCESS -4.3 mmol/L; VENOUS BLOOD HCO3 21.8 mmol/L (20-32); VENOUS BLOOD PCO2 43.7 mmHg (35-63); VENOUS BLOOD PH 7.32 (7.30-7.42)
[2017-10-12 02:50] LABS: ANION GAP 7 (5-19); BLOOD UREA NITROGEN 14 mg/dL (7-20); CALCIUM 8.6 mg/dL (8.4-10.2); CARBON DIOXIDE 22 mmol/L (22-30); CHLORIDE 110 mmol/L (98-107); GLUCOSE 195 mg/dL (75-110); POTASSIUM 4.3 mmol/L (3.6-5.0); SODIUM 139.4 mmol/L (137-145)
[2017-10-12 03:22] VITALS: BP 134/81
== END 2017-10-12 03:20 | disposition home or self-care (01) ==
LOC: ER 23:47
PROC: 0HQ1XZZ Repair Face Skin, External Approach (ICD-10-PCS; principal; 2017-10-11)
DX: S01.81XA Laceration without foreign body of other part of head, initial encounter (principal); R55 Syncope and collapse; E86.0 Dehydration; R11.10 Vomiting, unspecified; R19.7 Diarrhea, unspecified; E11.9 Type 2 diabetes mellitus without complications; Z79.4 Long term (current) use of insulin; Z87.891 Personal history of nicotine dependence; W22.8XXA Striking against or struck by other objects, initial encounter
CPT/HCPCS: 99283; 96360; 36415; 80048; 82803; 12011; J3490 ×3; J7030

== ENCOUNTER 2017-11-15 07:45 | Inpatient (IN) | payer MEDICAID ==
[2017-11-15] MEDS ORDERED: ONDANSETRON HCL INJ/PF 4 MG/2 ML SDV IV ONE (08:20)
[2017-11-15] MEDS: NORMAL SALINE 1000 ML 1,000 ML IV PRN ×2 (08:34→09:50)
[2017-11-15 08:55] LABS: ABSOLUTE BASOPHILS # (AUTO) 0.2 10^3/uL (0.0-0.2); ABSOLUTE LYMPHOCYTES (AUTO) 1.1 10^3/uL (0.5-4.7); ABSOLUTE MONOCYTES (AUTO) 0.5 10^3/uL (0.1-1.4); ABSOLUTE NEUT (AUTO) 15.3 10^3/uL (1.7-8.2); EOSINOPHILS % (AUTO) 0.1 % (0-6); HEMATOCRIT 39.3 % (37.9-51.0); LYMPHOCYTES % (AUTO) 6.6 % (13-45); MEAN CORPUSCULAR HEMOGLOBIN 22.5 pg (27.0-33.4); MEAN CORPUSCULAR HGB CONC 30.5 g/dL (32.0-36.0); MEAN CORPUSCULAR VOLUME 74 fl (80-97); MONOCYTES % (AUTO) 2.7 % (3-13); PLATELET COUNT 354 10^3/uL (150-450); RED BLOOD COUNT 5.32 10^6/uL (4.35-5.55); RED CELL DISTRIBUTION WIDTH 21.7 % (11.5-14.0); SEGMENTED NEUTROPHILS % (AUTO) 89.6 % (42-78); TOTAL CELLS COUNTED % (AUTO) 100 %
[2017-11-15 09:15] LABS: ALANINE AMINOTRANSFERASE 22 U/L (21-72); ALKALINE PHOSPHATASE 130 U/L (38-126); ASPARTATE AMINO TRANSFERASE 11 U/L (17-59); BILIRUBIN,DIRECT 0.4 mg/dL (0.0-0.4); BILIRUBIN,TOTAL 0.5 mg/dL (0.2-1.3); BLOOD UREA NITROGEN 23 mg/dL (7-20); CALCIUM 9.4 mg/dL (8.4-10.2); CARBON DIOXIDE 18 mmol/L (22-30); CHLORIDE 92 mmol/L (98-107); CREATINE KINASE 74 U/L (55-170); POTASSIUM 4.2 mmol/L (3.6-5.0); SODIUM 135.2 mmol/L (137-145); TOTAL PROTEIN 6.7 g/dL (6.3-8.2)
[2017-11-15 09:27] LABS: ANION GAP 25 (5-19); CREATINE KINASE MB 0.63 ng/mL (<4.55)
[2017-11-15 09:28] LABS: GLUCOSE 687 mg/dL (75-110); TROPONIN I < 0.012 ng/mL
[2017-11-15] MEDS ORDERED: PROMETHAZINE HCL INJ 25 MG/1 ML VIAL IM ONE (09:46)
[2017-11-15] MEDS ORDERED: INSULIN REG, HUMAN 100 UNIT/ML 3 ML VIAL (PYX) IV ONE (09:47)
[2017-11-15] MEDS ORDERED: NORMAL SALINE 1000 ML 1,000 ML IV ONE (09:47)
[2017-11-15 09:55] LABS: VENOUS BLOOD BASE EXCESS -3.7 mmol/L; VENOUS BLOOD HCO3 20.9 mmol/L (20-32); VENOUS BLOOD PCO2 36.5 mmHg (35-63); VENOUS BLOOD PH 7.38 (7.30-7.42)
[2017-11-15] MEDS ORDERED: HYDRALAZINE HCL INJ/PF 20 MG/1 ML SDV IV ONE (10:07)
--- NOTE | 2017-11-15 11:05 | RADIOLOGY REPORT (SQ) ---
EXAM DESCRIPTION: CHEST SINGLE VIEW portable COMPLETED DATE/TIME: 11/15/2017 10:55 am REASON FOR STUDY: cough COMPARISON: 08/03/2017 EXAM PARAMETERS: NUMBER OF VIEWS: One view. TECHNIQUE: Single frontal radiographic view of the chest acquired. Portable RADIATION DOSE: NA LIMITATIONS: None. FINDINGS: LUNGS AND PLEURA: No opacities, masses or pneumothorax. No pleural effusion. MEDIASTINUM AND HILAR STRUCTURES: No masses. Contour normal. HEART AND VASCULAR STRUCTURES: Stable cardiomegaly. No overt CHF. BONES: No acute findings. HARDWARE: None in the chest. OTHER: No other significant finding. IMPRESSION: Cardiomegaly stable. Lung pop remain clear. TECHNICAL DOCUMENTATION: JOB ID: [id number] [employer]- All Rights Reserved Reading location - IP/workstation name: [email or web address]
--- NOTE | 2017-11-15 11:09 | ER Document Report ---
ED General - General Chief Complaint: Vomiting Stated Complaint: VOMITING Time Seen by Provider: 11/15/17 08:17 Mode of Arrival: Ambulatory Information source: Patient, [facility] Records TRAVEL OUTSIDE OF THE [place] IN LAST 30 DAYS: No - HPI Patient complains to provider of: high sugar Onset: Just prior to arrival Onset/Duration: Gradual Context: pt. did not take his insulin for two days-took 40 untis levimir at 0700 am today and humulog 10 units also at 0700 am Associated symptoms: Body/muscle aches, Headache, Nausea, Vomiting Exacerbated by: Movement, Food Relieved by: Denies Similar symptoms previously: Yes Recently seen / treated by doctor: Yes - Related Data Allergies/Adverse Reactions: No Known Allergies Allergy (Verified 11/15/17 07:49) Past Medical History - General Information source: Patient - Social History Smoking Status: Current Some Day Smoker Frequency of alcohol use: Occasional Lives with: Family Family History: DM, Hypertension Patient has suicidal ideation: No Patient has homicidal ideation: No - Past Medical History Cardiac Medical History: Reports: Hx Heart Attack - May 2017., Hx Hypertension Denies: Hx Congestive Heart Failure, Hx DVT, Hx Hypercholesterolemia, Hx Pulmonary Embolism Pulmonary Medical History: Reports: Hx Asthma - as child Denies: Hx COPD, Hx Sleep Apnea Neurological Medical History: Reports: Hx Migraine. Denies: Hx Seizures Endocrine Medical History: Reports: Hx Diabetes Mellitus Type 1. Denies: Hx Diabetes Mellitus Type 2, Hx Hyperthyroidism, Hx Hypothyroidism Renal/ Medical History: Denies: Hx Peritoneal Dialysis GI Medical History: Denies: Hx Cirrhosis, Hx Gastroesophageal Reflux Disease, Hx Hepatitis Musculoskeltal Medical History: Denies Hx Arthritis Psychiatric Medical History: Reports: Hx Anxiety, Hx Bipolar Disorder, Hx Depression, Hx Schizophrenia Traumatic Medical History: Reports: None Infectious Medical History: Denies: Hx C-Diff, Hx Hepatitis, Hx MRSA Past Surgical History: Reports: Hx Appendectomy, Hx Oral Surgery - wisdom teeth , Other - [place] teeth extraction - Immunizations Hx Diphtheria, Pertussis, Tetanus Vaccination: Yes Hx Pneumococcal Vaccination: 09/16/00 Review of Systems - Review of Systems Constitutional: Weakness EENT: No symptoms reported Cardiovascular: Heart racing Respiratory: No symptoms reported Gastrointestinal: See HPI Genitourinary: No symptoms reported Male Genitourinary: No symptoms reported Musculoskeletal: No symptoms reported Skin: No symptoms reported Hematologic/Lymphatic: No symptoms reported Neurological/Psychological: No symptoms reported Physical Exam - Vital signs Vitals: Temp Pulse Resp BP Pulse Ox 97.9 F 148 H 20 188/113 H 99 11/15/17 07:53 11/15/17 07:53 11/15/17 07:53 11/15/17 07:53 11/15/17 07:53 Interpretation: Hypertensive, Tachycardic - Notes Notes: PHYSICAL EXAMINATION: GENERAL: The ill-appearing. Well-nourished. No acute distress. HEAD: Atraumatic, normocephalic. EYES: Pupils equal round and reactive to light, extraocular movements intact, sclera anicteric, conjunctiva are normal. ENT: Nares patent, oropharynx clear without exudates. Dry mucous membranes. NECK: Normal range of motion, supple without lymphadenopathy LUNGS: Breath sounds clear to auscultation bilaterally and equal. No wheezes rales or rhonchi. HEART: Regular rate and rhythm without murmurs ABDOMEN: Soft, nontender, nondistended abdomen. No guarding, no rebound. No masses appreciated. Musculoskeletal: Normal range of motion, no pitting or edema. No cyanosis. NEUROLOGICAL: Cranial nerves grossly intact. Normal speech. Normal sensory, motor exams PSYCH: Normal mood, normal affect. SKIN: Warm, Dry, normal turgor, no rashes or lesions noted. Course - Re-evaluation Re-evalutation: 11/15/17 11:27 Labs- All tests 24 hr 11/15/17 11/15/17 11/15/17 08:43 08:43 08:43 WBC 17.0 H RBC 5.32 Hgb 12.0 L Hct 39.3 MCV 74 L MCH 22.5 L MCHC 30.5 L RDW 21.7 H Plt Count 354 Seg Neutrophils % 89.6 H Lymphocytes % 6.6 L Monocytes % 2.7 L Eosinophils % 0.1 Basophils % 1.0 Absolute Neutrophils 15.3 H Absolute Lymphocytes 1.1 Absolute Monocytes 0.5 Absolute Eosinophils 0.0 Absolute Basophils 0.2 VBG pH VBG pCO2 VBG HCO3 VBG Base Excess Sodium 135.2 L Potassium 4.2 Chloride 92 L Carbon Dioxide 18 L Anion Gap 25 H BUN 23 H Creatinine 1.93 H Est GFR ( Amer) 49 L Est GFR (Non-Af Amer) 40 L Glucose 687 H* Calcium 9.4 Total Bilirubin 0.5 Direct Bilirubin 0.4 Neonat Total Bilirubin Not Reportable Neonat Direct Bilirubin Not Reportable Neonat Indirect Bili Not Reportable AST 11 L ALT 22 Alkaline Phosphatase 130 H Creatine Kinase 74 CK-MB (CK-2) 0.63 Troponin I < 0.012 Total Protein 6.7 Albumin 4.0 Urine Color Urine Appearance Urine pH Ur Specific [place] Urine Protein Urine Glucose (UA) Urine Ketones Urine Blood Urine Nitrite Urine Bilirubin Urine Urobilinogen Ur Leukocyte Esterase Urine WBC (Auto) Urine RBC (Auto) Urine Mucus (Auto) Urine Ascorbic Acid 11/15/17 11/15/17 08:43 09:50 WBC RBC Hgb Hct MCV MCH MCHC RDW Plt Count Seg Neutrophils % Lymphocytes % Monocytes % Eosinophils % Basophils % Absolute Neutrophils Absolute Lymphocytes Absolute Monocytes Absolute Eosinophils Absolute Basophils VBG pH 7.38 VBG pCO2 36.5 VBG HCO3 20.9 VBG Base Excess -3.7 Sodium Potassium Chloride Carbon Dioxide Anion Gap BUN Creatinine Est GFR ( Amer) Est GFR (Non-Af Amer) Glucose Calcium Total Bilirubin Direct Bilirubin Neonat Total Bilirubin Neonat Direct Bilirubin Neonat Indirect Bili AST ALT Alkaline Phosphatase Creatine Kinase CK-MB (CK-2) Troponin I Total Protein Albumin Urine Color STRAW Urine Appearance CLEAR Urine pH 5.0 Ur Specific [place] 1.022 Urine Protein 100 H Urine Glucose (UA) >=500 H Urine Ketones 20 H Urine Blood SMALL H Urine Nitrite NEGATIVE Urine Bilirubin NEGATIVE Urine Urobilinogen NEGATIVE Ur Leukocyte Esterase NEGATIVE Urine WBC (Auto) 3 Urine RBC (Auto) 0 Urine Mucus (Auto) RARE Urine Ascorbic Acid NEGATIVE Chest X-Ray 11/15/17 10:36 IMPRESSION: Cardiomegaly stable. Lung pop remain clear. - Vital Signs Vital signs: Temp Pulse Resp BP Pulse Ox 97.9 F 148 H 21 H 179/106 H 97 11/15/17 07:53 11/15/17 07:53 11/15/17 08:47 11/15/17 08:47 11/15/17 08:47 - Laboratory Result Diagrams: 11/15/17 08:43 11/15/17 08:43 Laboratory results interpreted by me: 11/15/17 11/15/17 11/15/17 08:43 08:43 09:50 WBC 17.0 H Hgb 12.0 L MCV 74 L MCH 22.5 L MCHC 30.5 L RDW 21.7 H Seg Neutrophils % 89.6 H Lymphocytes % 6.6 L Monocytes % 2.7 L Absolute Neutrophils 15.3 H Sodium 135.2 L Chloride 92 L Carbon Dioxide 18 L Anion Gap 25 H BUN 23 H Creatinine 1.93 H Est GFR ( Amer) 49 L Est GFR (Non-Af Amer) 40 L Glucose 687 H* AST 11 L Alkaline Phosphatase 130 H Urine Protein 100 H Urine Glucose (UA) >=500 H Urine Ketones 20 H Urine Blood SMALL H - Diagnostic Test Radiology reviewed: Image reviewed, Reports reviewed Discharge - Discharge Clinical Impression: Hypertension, Hx of noncompliance with medical treatment, presenting hazards to health, Nausea and vomiting, DKA, type 1 Clinical Impression: (Ruled Out): Lower extremity arterial insufficiency, severe, left Condition: Serious Disposition: ADMITTED INPATIENT Admitting Provider: Hospitalist - Dr. Leo Unit Admitted: [facility] - Dr. Leo
[2017-11-15 11:13] LABS: APPEARANCE,URINE CLEAR; BILIRUBIN,URINE NEGATIVE (NEGATIVE); COLOR,URINE STRAW; GLUCOSE, URINE >=500 mg/dL (NEGATIVE); KETONES,URINE 20 mg/dL (NEGATIVE); LEUKOCYTE ESTERASE,URINE NEGATIVE (NEGATIVE); NITRITE,URINE NEGATIVE (NEGATIVE); PROTEIN,URINE 100 mg/dL (NEGATIVE); URINE SPECIFIC GRAVITY 1.022; UROBILINOGEN,URINE NEGATIVE mg/dL (<2.0)
[2017-11-15] MEDS ORDERED: DEXTROSE 50%-WATER 25 GM/50 ML DISP.SYRIN IV PRN ×4 (12:58→13:00)
[2017-11-15] MEDS ORDERED: DEXTROSE 40% GEL 15 GM TUBE PO PRN ×4 (12:58→13:00)
[2017-11-15] MEDS ORDERED: NORMAL SALINE 100 ML with INSULIN REGULAR, HUMAN 100 UNIT IV PRN ×2 (12:58)
[2017-11-15] MEDS ORDERED: GLUCAGON,HUMAN RECOMB 1 MG INJ IM PRN ×2 (12:58→13:00)
[2017-11-15] MEDS ORDERED: NORMAL SALINE 1000 ML 1,000 ML IV PRN (13:00)
[2017-11-15 13:01] LABS: BLOOD UREA NITROGEN 25 mg/dL (7-20); CARBON DIOXIDE 15 mmol/L (22-30); CHLORIDE 105 mmol/L (98-107); POTASSIUM 4.3 mmol/L (3.6-5.0)
[2017-11-15] MEDS ORDERED: IPRATROPIUM/ALBUTEROL 0.5-2.5 MG/3 ML AMPUL NEB PRN (13:02)
[2017-11-15 13:12] LABS: SODIUM 143.7 mmol/L (137-145)
[2017-11-15] MEDS ORDERED: HYDRALAZINE HCL INJ/PF 20 MG/1 ML SDV IV PRN (13:12)
[2017-11-15 13:16] LABS: ANION GAP 24 (5-19)
[2017-11-15 13:20] LABS: GLUCOSE 550 mg/dL (75-110)
--- NOTE | 2017-11-15 13:42 | PDOC H&P ---
History of Present Illness Admission Date/PCP: 11/15/17 11:22 nurse research: None History of Present Illness: LENA SCHULZ is a 32 year old male with multiple visits to the ER and frequent admissions for diabetic ketoacidosis. In May 2017 he presented to the emergency room with chest pain. He was found to be having an acute myocardial infarction and he was transferred to [facility] in [place] and they in turn transferred him to [facility]. Ultimately he had a cardiac catheterization which revealed no obstructing coronary artery disease. It was felt that his myocardial infarction was due to vasospasm from cocaine abuse. He was last hospitalized at our facility on 08/02/2017 for diabetic ketoacidosis as well as chest pain. He had a 2D cardiac echo performed during that hospitalization which revealed grade 1 diastolic dysfunction but otherwise was unremarkable. His serial troponins remained negative. Cardiology did not recommend any further workup. He was then hospitalized in July 2017 with diabetic ketoacidosis. On this occasion he is feeling quite poorly. He does not want to answer too many questions. He states that he was taking his insulin as directed however he uses syringes and his syringe broke and he was unable to administer his medication. He presented with a 24 hour history of nausea, vomiting and hyperglycemia. At the time of admission he states that he has had no further episodes of nausea and vomiting. He has had no fever chills or any recent upper respiratory illness that he knows of. He is having some chest discomfort and epigastric pain. He has had no nausea and vomiting since he came to the hospital. He states that he is having bowel movements and has had a couple of episodes of diarrhea. He has no urinary complaints other than severe polydipsia and polyuria. Past Medical History Cardiac Medical History: Reports: Myocardial Infarction - May 2017., Hypertension Denies: Congestive Heart Failure, DVT, Hyperlipidema, Pulmonary Embolism Pulmonary Medical History: Reports: Asthma - as child Denies: Chronic Obstructive Pulmonary Disease (COPD), Sleep Apnea EENT Medical History: Reports: None Neurological Medical History: Reports: Migraine Denies: Seizures Endocrine Medical History: Reports: Diabetes Mellitus Type 1 Denies: Diabetes Mellitus Type 2, Hyperthyroidism, Hypothyroidism Malignancy Medical History: Reports: None GI Medical History: Denies: Cirrhosis, Gastroesophageal Reflux Disease, Hepatitis Musculoskeltal Medical History: Reports: None Denies: Arthritis Skin Medical History: Reports: None Psychiatric Medical History: Reports: Bipolar Disorder, Depression, Substance Abuse, Tobacco Dependency Traumatic Medical History: Reports: None Infectious Medical History: Denies: Clostridium Difficile, Methicillin-Resistant Staph Aureus Past Surgical History Past Surgical History: Reports: Appendectomy, Other - [place] teeth extraction Social History Information Source: Patient Lives with: Spouse/Significant other Smoking Status: Current Every Day Smoker Frequency of Alcohol Use: None Hx Recreational Drug Use: No Drugs: None Hx Prescription Drug Abuse: Yes Past Social History Note: He has a history of cocaine abuse. He denies any active drug use. Family History Family History: DM, Hypertension Parental Family History Reviewed: Yes Children Family History Reviewed: Yes Sibling(s) Family History Reviewed.: Yes Medication/Allergy Home Medications: No Home Medications 11/15/17 Allergies/Adverse Reactions: No Known Allergies Allergy (Verified 11/15/17 07:49) Review of Systems Constitutional: PRESENT: fatigue, headache(s), weakness Eyes: ABSENT: visual disturbances Ears: ABSENT: hearing changes Nose, Mouth, and Throat: PRESENT: headache(s). ABSENT: mouth pain, sore throat Cardiovascular: PRESENT: chest pain, palpitations. ABSENT: dyspnea on exertion , edema, orthropnea Respiratory: ABSENT: cough, dyspnea, hemoptysis, sputum Gastrointestinal: PRESENT: abdominal pain, nausea, vomiting. ABSENT: constipation, diarrhea, dysphagia, hematemesis Genitourinary: ABSENT: difficulty urinating Musculoskeletal: PRESENT: back pain Integumentary: PRESENT: diaphoresis. ABSENT: lesions, pruritus, rash, wounds Neurological: PRESENT: weakness. ABSENT: abnormal speech, confusion, convulsions, focal weakness, frequent falls, lack of coordination, syncope Psychiatric: ABSENT: anxiety, depression, hallucinations Endocrine: PRESENT: polydipsia, polyuria. ABSENT: cold intolerance, flushing, heat intolerance Hematologic/Lymphatic: ABSENT: easy bleeding, easy bruising, lymphadenopathy Allergic/Immunologic: ABSENT: seasonal rhinorrhea Physical Exam Vital Signs: Temp Pulse Resp BP Pulse Ox 97.9 F 148 H 21 H 179/106 H 97 11/15/17 07:53 11/15/17 07:53 11/15/17 08:47 11/15/17 08:47 11/15/17 08:47 General appearance: PRESENT: disheveled, mild distress, other - He is receiving oxygen via nasal cannula Head exam: PRESENT: atraumatic, normocephalic Eye exam: PRESENT: conjunctiva pink, EOMI, PERRLA. ABSENT: scleral icterus Mouth exam: PRESENT: dry mucosa, tongue midline Neck exam: ABSENT: carotid bruit, JVD, lymphadenopathy, thyromegaly Respiratory exam: PRESENT: clear to auscultation juan ramon, tachypnea. ABSENT: rales , rhonchi, wheezes Cardiovascular exam: PRESENT: +S1, +S2, tachycardia. ABSENT: diastolic murmur, rubs, systolic murmur Pulses: PRESENT: normal dorsalis pedis pul GI/Abdominal exam: PRESENT: hypoactive bowel sounds, soft, tenderness - He is tender to palpation in the epigastric area.. ABSENT: distended, guarding, mass , organolmegaly, rebound Rectal exam: PRESENT: deferred Extremities exam: PRESENT: full ROM. ABSENT: calf tenderness, clubbing, pedal edema Musculoskeletal exam: PRESENT: ambulatory Neurological exam: PRESENT: alert, awake, oriented to person, oriented to place , oriented to time, oriented to situation, CN II-XII grossly intact. ABSENT: motor sensory deficit Psychiatric exam: PRESENT: depressed, flat affect Skin exam: PRESENT: dry, intact, warm. ABSENT: cyanosis, rash Results Impressions: Chest X-Ray 11/15/17 10:36 IMPRESSION: Cardiomegaly stable. Lung pop remain clear. Assessment & Plan - Diagnosis (1) DKA, type 1 Qualifiers: Is this a current diagnosis for this admission?: Yes Plan: Who is coming in sending he has been started on an insulin drip. He will continue the drip until his gap is closed.. We will change his IV fluids when his blood sugar is less than 250. We will do fingerstick blood sugars every 2 hours and check a BNP and BMP every 6 hours. (2) Recent myocardial infarction Is this a current diagnosis for this admission?: Yes Plan: He had a negative cardiac catheterization and it was felt that his myocardial infarction was due to vasospasm from cocaine abuse. He is complaining of chest pain today. I will trend his serial troponins overnight. I also am going to obtain a urine drug screen. (3) ARF (acute renal failure) Is this a current diagnosis for this admission?: Yes Plan: Due to diabetic ketoacidosis. He will continue aggressive IV fluid hydration per protocol. He will be having chemistry panels drawn every 6 hours. (4) Hypertensive urgency Is this a current diagnosis for this admission?: Yes Plan: The patient will have IV hydralazine available as needed. We are trying to get a hold of what medications he possibly was on as an outpatient. He likely will need to be started on something. (5) Leukocytosis Is this a current diagnosis for this admission?: Yes Plan: I am not seeing any signs of infection. I will obtain a UA and urine culture as well as blood cultures. Chest x-ray was unremarkable. His leukocytosis is likely reactive to his diabetic ketoacidosis. (6) Hyponatremia Is this a current diagnosis for this admission?: Yes Plan: Likely due to volume depletion. He will be having serial chemistry panels checked today. (7) Hx of noncompliance with medical treatment, presenting hazards to health Is this a current diagnosis for this admission?: Yes Plan: We will have the diabetes nurse educator see the patient. He states that he is out of needles. He does not have a primary care physician although he does have Medicaid. He has a long-standing history of noncompliance. We will do his best we can to set him up for success at discharge. It does sound like his social situation has settled down. He has not been to the hospital since July which is an improvement. We just need to make sure that he has all the proper supplies and appropriate outpatient follow-up at discharge. (8) Full code status Is this a current diagnosis for this admission?: Yes - Time Time Spent: 50 to 70 Minutes - Inpatient Certification Based on my medical assessment, after consideration of the patient's comorbidities, presenting symptoms, or acuity I expect that the services needed warrant INPATIENT care.: Yes I certify that my determination is in accordance with my understanding of Medicare's requirements for reasonable and necessary INPATIENT services [42 CFR 412.3e].: Yes Medical Necessity: Need Close Monitoring Due to Risk of Patient Decompensation, Need For IV Fluids, Other - At this point the patient has rather severe diabetic ketoacidosis. I suspect that he will require greater than 2 midnights in the hospital for stabilization. Timing of disposition will be determined by his clinical course
--- NOTE | 2017-11-15 14:41 | EKG REPORT ---
SEVERITY:- ABNORMAL ECG - SINUS TACHYCARDIA BORDERLINE INFERIOR Q WAVES NONSPECIFIC T ABNORMALITIES, INFERIOR LEADS BORDERLINE PROLONGED QT INTERVAL : Confirmed by: Brayden Silverio MD 15-Nov-2017 14:40:29
[2017-11-15] MEDS: POTASSI CL 20 MEQ/50 ML RIDER 20 MEQ/50 ML RTUPB IV SCH ×2 (14:52→16:38)
[2017-11-15] MEDS: HYDRALAZINE HCL INJ/PF 20 MG/1 ML SDV IV PRN ×2 (16:38→18:53)
[2017-11-15 16:41] LABS: URINE AMPHETAMINES SCREEN NEGATIVE; URINE BARBITURATES SCREEN NEGATIVE; URINE COCAINE SCREEN NEGATIVE; URINE MARIJUANA (THC) SCREEN NEGATIVE; URINE METHADONE SCREEN NEGATIVE; URINE PHENCYCLIDINE SCREEN NEGATIVE
[2017-11-15 16:51] LABS: URINE BENZODIAZEPINES SCREEN UNCONFIRMED POSITIVE
[2017-11-15] MEDS: ACETAMINOPHEN 325 MG TABLET PO PRN ×2 (16:57→20:12)
[2017-11-15] MEDS ORDERED: AMLODIPINE BESYLATE 10 MG TABLET PO ONE (17:00)
[2017-11-15] MEDS ORDERED: TRAZODONE HCL 50 MG TABLET PO ONE (21:00)
[2017-11-15] MEDS: PANTOPRAZOLE SODIUM 40 MG VIAL IV SCH (21:09)
[2017-11-15] MEDS: ONDANSETRON HCL INJ/PF 4 MG/2 ML SDV IV PRN (21:09)
[2017-11-15] MEDS: TEMAZEPAM 15 MG CAPSULE PO SCH (21:10)
--- NOTE | 2017-11-15 21:52 | EKG REPORT ---
SEVERITY:- ABNORMAL ECG - SINUS TACHYCARDIA PROBABLE INFEROLATERAL INFARCT, AGE INDETERM : Confirmed by: Brayden Silverio MD 15-Nov-2017 21:51:57
[2017-11-15 22:55] LABS: ANION GAP 12 (5-19); BLOOD UREA NITROGEN 22 mg/dL (7-20); CARBON DIOXIDE 20 mmol/L (22-30); CHLORIDE 110 mmol/L (98-107); CREATINE KINASE 217 U/L (55-170); GLUCOSE 101 mg/dL (75-110); POTASSIUM 4.8 mmol/L (3.6-5.0); SODIUM 142.1 mmol/L (137-145)
[2017-11-16] MEDS: 1/2 NORMAL SALINE 1,000 ML IV PRN ×2 (05:58→10:52)
[2017-11-16] MEDS: INSULIN LISPRO 100 UNIT/ML 3 ML VIAL SUBCUT PRN ×5 (06:29→21:29)
[2017-11-16] MEDS: ACETAMINOPHEN 325 MG TABLET PO PRN ×3 (06:32→19:30)
[2017-11-16] MEDS ORDERED: INSULIN GLARGINE,HUM.REC.ANLOG 1,000 UNIT/10 ML UNIT SUBCUT ONE (09:15)
[2017-11-16] MEDS: PANTOPRAZOLE SODIUM 40 MG VIAL IV SCH ×2 (09:26→21:16)
[2017-11-16] MEDS: AMLODIPINE BESYLATE 10 MG TABLET PO SCH (09:26)
[2017-11-16] MEDS: ENOXAPARIN SODIUM INJ 40 MG/0.4 ML DISP.SYRIN SUBCUT SCH (09:26)
[2017-11-16 12:22] LABS: ANION GAP 17 (5-19); BLOOD UREA NITROGEN 24 mg/dL (7-20); CALCIUM 8.6 mg/dL (8.4-10.2); CARBON DIOXIDE 15 mmol/L (22-30); CHLORIDE 100 mmol/L (98-107); GLUCOSE 337 mg/dL (75-110); POTASSIUM 4.2 mmol/L (3.6-5.0); SODIUM 132.1 mmol/L (137-145)
[2017-11-16] MEDS ORDERED: BUTALB/ACETAMINOPHEN/CAFFEINE 1 TAB EACH PO ONE (16:38)
[2017-11-16] MEDS ORDERED: BUTALB/ACETAMINOPHEN/CAFFEINE 1 TAB EACH PO PRN (16:39)
--- NOTE | 2017-11-16 16:40 | PDOC PROGRESS REPORT ---
Subjective Progress Note for:: 11/16/17 Subjective:: The patient is a 32-year-old male with a past medical history of myocardial infarction, hypertension, asthma, migraines, diabetes mellitus type 1, bipolar disorder, substance abuse, tobacco dependency with multiple recent admissions to the emergency department and hospital for DKA related to medication noncompliance and illicit drug use. He was admitted on 11/15/17 for DKA. The patient is seen on morning rounds. He is found resting in bed comfortably on room air. He is sleeping when I enter but does wake easily when I introduced myself. He states that he is feeling much better at this time and is looking forward to eating. He tells me that he was unable to take his insulin due to running out of syringes and that his only insulin syringe broke. He tells me that he does have plenty of insulin at home. He denies fever, chills, chest pain, palpitations, dyspnea, abdominal pain, nausea vomiting and diarrhea. He has no questions or concerns at this time. Reason For Visit: HYPERTENSION, HISTORY OF NONADHERENCE TO MEDICAL Physical Exam Vital Signs: Temp Pulse Resp BP Pulse Ox 98.4 F 118 H 14 152/92 H 100 11/16/17 16:00 11/16/17 16:00 11/16/17 16:00 11/16/17 16:00 11/16/17 16:00 Intake & Output 11/15/17 11/16/17 11/17/17 06:59 06:59 06:59 Intake Total 4064 591 Output Total 900 1800 Balance 3164 -1209 Weight 98.3 kg General appearance: PRESENT: no acute distress, well-developed, well-nourished, other - Overweight Head exam: PRESENT: atraumatic, normocephalic Eye exam: PRESENT: conjunctiva pink, EOMI, PERRLA. ABSENT: scleral icterus Ear exam: PRESENT: normal external ear exam Mouth exam: PRESENT: moist, tongue midline Neck exam: ABSENT: carotid bruit, JVD, lymphadenopathy, thyromegaly Respiratory exam: PRESENT: clear to auscultation juan ramon, symmetrical, unlabored. ABSENT: rales, rhonchi, wheezes Cardiovascular exam: PRESENT: RRR, +S1, +S2, tachycardia. ABSENT: diastolic murmur, rubs, systolic murmur Pulses: PRESENT: normal dorsalis pedis pul Vascular exam: PRESENT: normal capillary refill GI/Abdominal exam: PRESENT: normal bowel sounds, soft. ABSENT: distended, guarding, mass, organolmegaly, rebound, tenderness Rectal exam: PRESENT: deferred Extremities exam: PRESENT: full ROM. ABSENT: calf tenderness, clubbing, pedal edema Neurological exam: PRESENT: alert, awake, oriented to person, oriented to place , oriented to time, oriented to situation, CN II-XII grossly intact. ABSENT: motor sensory deficit Psychiatric exam: PRESENT: appropriate affect, normal mood. ABSENT: homicidal ideation, suicidal ideation Skin exam: PRESENT: dry, intact, warm. ABSENT: cyanosis, rash Results Laboratory Results: 11/16/17 11:27 11/15/17 11/16/17 22:20 11:27 Sodium 142.1 132.1 L Potassium 4.8 4.2 Chloride 110 H 100 Carbon Dioxide 20 L 15 L Anion Gap 12 17 BUN 22 H 24 H Creatinine 1.46 H 1.66 H Est GFR ( Amer) > 60 58 L Est GFR (Non-Af Amer) 56 L 48 L Glucose 101 337 H Calcium 9.0 8.6 11/15/17 11/15/17 22:20 22:20 Creatine Kinase 217 H CK-MB (CK-2) Cancelled Troponin I Cancelled Impressions: Chest X-Ray 11/15/17 10:36 IMPRESSION: Cardiomegaly stable. Lung pop remain clear. Assessment & Plan - Diagnosis (1) DKA, type 1 Qualifiers: Diabetes mellitus complication detail: without coma Is this a current diagnosis for this admission?: Yes Plan: The patient is admitted to the [facility] on continuous cardiac telemetry. He is receiving aggressive IV fluid rehydration. He was initially placed on an insulin drip. His anion gap has closed and he has been transitioned to subcutaneous Lantus with Humalog for sliding scale coverage. He is placed on a consistent carb and cardiac diet. Registered dietitian and hospital educator have been consulted. (2) Hypertensive urgency Is this a current diagnosis for this admission?: Yes Plan: Blood pressures are improved, however remain elevated. The patient has been placed on amlodipine 10 mg daily IV hydralazine as needed for blood pressures. (3) Hyponatremia Is this a current diagnosis for this admission?: Yes Plan: Likely due to volume depletion. The patient has been transitioned back to normal saline IV fluids. We will continue to monitor serial chemistries. (4) Leukocytosis Is this a current diagnosis for this admission?: Yes Plan: No evidence of acute infection; leukocytosis is likely secondary to diabetic ketoacidosis. Urinalysis is negative for UTI. Chest x-ray is unremarkable. Urine and blood cultures are pending. No indication for antibiotic therapy at this time. We will continue to monitor for evidence of infectious process. (5) Recent myocardial infarction Is this a current diagnosis for this admission?: Yes Plan: The patient recently had a negative cardiac cath. The patient's OR is felt to be due to vasospasms from cocaine abuse. He did complain of chest pain upon admission which has since resolved. Will repeat troponin. Urine drug screen is positive for benzodiazepines. (6) ARF (acute renal failure) Is this a current diagnosis for this admission?: Yes Plan: Creatinine has trended up today from 1.46 to 1.66. We will continue aggressive IV fluid rehydration. Avoid nephrotoxic medications. (7) Hx of noncompliance with medical treatment, presenting hazards to health Is this a current diagnosis for this admission?: Yes Plan: Will ask the registered dietitian and diabetic nurse educator to meet with the patient. The patient states that he ran out of his insulin syringes and that his remaining syringe broke. He does not have a primary care physician although he does have Medicaid. Will ask the senior materials planner to assist with establishing the patient with a primary care provider for follow-up after discharge. (8) Full code status Is this a current diagnosis for this admission?: Yes (9) Migraine Is this a current diagnosis for this admission?: Yes Plan: Will trial Fioricet. - Time Time Spent with patient: 15-24 minutes Medications reviewed and adjusted accordingly: Yes - Inpatient Certification Based on my medical assessment, after consideration of the patient's comorbidities, presenting symptoms, or acuity I expect that the services needed warrant INPATIENT care.: Yes I certify that my determination is in accordance with my understanding of Medicare's requirements for reasonable and necessary INPATIENT services [42 CFR 412.3e].: Yes Medical Necessity: Need Close Monitoring Due to Risk of Patient Decompensation, Need For IV Fluids
[2017-11-16 17:18] LABS: ANION GAP 5 (5-19); BLOOD UREA NITROGEN 22 mg/dL (7-20); CALCIUM 8.5 mg/dL (8.4-10.2); CARBON DIOXIDE 19 mmol/L (22-30); CHLORIDE 110 mmol/L (98-107); GLUCOSE 182 mg/dL (75-110); POTASSIUM 4.8 mmol/L (3.6-5.0); SODIUM 134.1 mmol/L (137-145)
[2017-11-16] MEDS: NORMAL SALINE 1000 ML 1,000 ML IV PRN (20:24)
[2017-11-16] MEDS: ONDANSETRON HCL INJ/PF 4 MG/2 ML SDV IV PRN (21:16)
[2017-11-16] MEDS: TEMAZEPAM 15 MG CAPSULE PO SCH (21:17)
[2017-11-17] MEDS: NORMAL SALINE 1000 ML 1,000 ML IV PRN ×2 (02:54→15:54)
[2017-11-17] MEDS: HYDRALAZINE HCL INJ/PF 20 MG/1 ML SDV IV PRN ×2 (02:59→21:01)
[2017-11-17] MEDS: INSULIN LISPRO 100 UNIT/ML 3 ML VIAL SUBCUT PRN ×4 (06:06→22:51)
[2017-11-17] MEDS: PANTOPRAZOLE SODIUM 40 MG VIAL IV SCH ×2 (09:21→22:51)
[2017-11-17] MEDS: INSULIN GLARGINE,HUM.REC.ANLOG 300 UNIT/3 ML INSULN.PEN SUBCUT SCH (09:21)
[2017-11-17] MEDS: AMLODIPINE BESYLATE 10 MG TABLET PO SCH (09:21)
[2017-11-17] MEDS: ENOXAPARIN SODIUM INJ 40 MG/0.4 ML DISP.SYRIN SUBCUT SCH (09:21)
[2017-11-17 09:45] LABS: ABSOLUTE BASOPHILS # (AUTO) 0.1 10^3/uL (0.0-0.2); ABSOLUTE LYMPHOCYTES (AUTO) 1.4 10^3/uL (0.5-4.7); ABSOLUTE MONOCYTES (AUTO) 0.6 10^3/uL (0.1-1.4); ABSOLUTE NEUT (AUTO) 15.8 10^3/uL (1.7-8.2); BASOPHILS % (AUTO) 0.7 % (0-2); EOSINOPHILS % (AUTO) 0.1 % (0-6); HEMATOCRIT 34.8 % (37.9-51.0); HEMOGLOBIN 10.9 g/dL (13.5-17.0); LYMPHOCYTES % (AUTO) 7.8 % (13-45); MEAN CORPUSCULAR HEMOGLOBIN 22.7 pg (27.0-33.4); MEAN CORPUSCULAR HGB CONC 31.3 g/dL (32.0-36.0); MEAN CORPUSCULAR VOLUME 72 fl (80-97); MONOCYTES % (AUTO) 3.4 % (3-13); PLATELET COUNT 306 10^3/uL (150-450); RED CELL DISTRIBUTION WIDTH 22.3 % (11.5-14.0); TOTAL CELLS COUNTED % (AUTO) 100 %; WHITE BLOOD COUNT 17.9 10^3/uL (4.0-10.5)
[2017-11-17 10:06] LABS: ANION GAP 13 (5-19); BLOOD UREA NITROGEN 12 mg/dL (7-20); CALCIUM 9.2 mg/dL (8.4-10.2); CARBON DIOXIDE 23 mmol/L (22-30); CHLORIDE 102 mmol/L (98-107); GLUCOSE 265 mg/dL (75-110); SODIUM 137.5 mmol/L (137-145)
[2017-11-17 10:27] LABS: POTASSIUM 3.5 mmol/L (3.6-5.0)
[2017-11-17] MEDS ORDERED: TRAMADOL HCL 50 MG TABLET PO ONE (12:00)
[2017-11-17] MEDS ORDERED: POTASSI CL 20 MEQ/50 ML RIDER 20 MEQ/50 ML RTUPB IV ONE (12:00)
[2017-11-17] MEDS ORDERED: ONDANSETRON 4 MG TAB.RAPDIS PO PRN (12:58)
--- NOTE | 2017-11-17 13:08 | PDOC PROGRESS REPORT ---
Subjective Progress Note for:: 11/17/17 Subjective:: The patient is a 32-year-old male with a past medical history of myocardial infarction, hypertension, asthma, migraines, diabetes mellitus type 1, bipolar disorder, substance abuse, tobacco dependency with multiple recent admissions to the emergency department and hospital for DKA related to medication noncompliance and illicit drug use. He was admitted on 11/15/17 for DKA. The patient is seen on morning rounds. He is found resting in bed comfortably on room air. He is sleeping when I enter but does wake easily. He complains of fatigue, malaise, abdominal pain with nausea and one episode of emesis early this morning, headache, and dyspnea with a nonproductive cough. He denies fever, chills, chest pain, palpitations, orthopnea, diarrhea and constipation. Reason For Visit: HYPERTENSION, HISTORY OF NONADHERENCE TO MEDICAL Physical Exam Vital Signs: Temp Pulse Resp BP Pulse Ox 98.8 F 116 H 14 169/90 H 100 11/17/17 11:38 11/17/17 11:38 11/17/17 11:38 11/17/17 11:38 11/17/17 11:38 Intake & Output 11/16/17 11/17/17 11/18/17 06:59 06:59 06:59 Intake Total 4064 4682 784 Output Total 900 4325 725 Balance 3164 357 59 Weight 98.3 kg 95 kg General appearance: PRESENT: no acute distress, well-developed, well-nourished, other - Ill appearing Head exam: PRESENT: atraumatic, normocephalic Eye exam: PRESENT: conjunctiva pink, EOMI, PERRLA. ABSENT: scleral icterus Ear exam: PRESENT: normal external ear exam Mouth exam: PRESENT: dry mucosa, tongue midline Neck exam: ABSENT: carotid bruit, JVD, lymphadenopathy, thyromegaly Respiratory exam: PRESENT: clear to auscultation juan ramon, symmetrical, tachypnea, unlabored. ABSENT: rales, rhonchi, wheezes Cardiovascular exam: PRESENT: RRR, +S1, +S2. ABSENT: diastolic murmur, rubs, systolic murmur Pulses: PRESENT: normal dorsalis pedis pul Vascular exam: PRESENT: normal capillary refill GI/Abdominal exam: PRESENT: hypoactive bowel sounds, normal bowel sounds, soft. ABSENT: distended, guarding, mass, organolmegaly, rebound, tenderness Rectal exam: PRESENT: deferred Extremities exam: PRESENT: full ROM. ABSENT: calf tenderness, clubbing, pedal edema Neurological exam: PRESENT: alert, awake, oriented to person, oriented to place , oriented to time, oriented to situation, CN II-XII grossly intact. ABSENT: motor sensory deficit Psychiatric exam: PRESENT: appropriate affect, normal mood. ABSENT: homicidal ideation, suicidal ideation Skin exam: PRESENT: dry, intact, warm. ABSENT: cyanosis, rash Results Laboratory Results: 11/17/17 09:04 11/17/17 09:04 11/16/17 11/17/17 11/17/17 16:45 09:04 09:04 WBC 17.9 H RBC 4.80 Hgb 10.9 L Hct 34.8 L MCV 72 L MCH 22.7 L MCHC 31.3 L RDW 22.3 H Plt Count 306 Seg Neutrophils % 88.0 H Lymphocytes % 7.8 L Monocytes % 3.4 Eosinophils % 0.1 Basophils % 0.7 Absolute Neutrophils 15.8 H Absolute Lymphocytes 1.4 Absolute Monocytes 0.6 Absolute Eosinophils 0.0 Absolute Basophils 0.1 Sodium 134.1 L 137.5 Potassium 4.8 3.5 L D Chloride 110 H 102 Carbon Dioxide 19 L 23 Anion Gap 5 13 BUN 22 H 12 Creatinine 1.48 H 1.35 H Est GFR ( Amer) > 60 > 60 Est GFR (Non-Af Amer) 55 L > 60 Glucose 182 H 265 H Calcium 8.5 9.2 11/15/17 11/15/17 22:20 22:20 Creatine Kinase 217 H CK-MB (CK-2) Cancelled Troponin I Cancelled Impressions: Chest X-Ray 11/15/17 10:36 IMPRESSION: Cardiomegaly stable. Lung pop remain clear. Assessment & Plan - Diagnosis (1) DKA, type 1 Qualifiers: Diabetes mellitus complication detail: without coma Is this a current diagnosis for this admission?: Yes Plan: The patient is admitted to the [facility] on continuous cardiac telemetry. Unfortunately, the patient lost IV access today and nursing staff is unable to restart. Will consult surgery for line placement. We will resume IV fluid rehydration once IV access is obtained. He was initially placed on an insulin drip. His anion gap closed and he has been transitioned to subcutaneous Lantus with Humalog for sliding scale coverage. He complains of abdominal pain with nausea and vomiting today; will restrict to clear liquids for now. Antiemetics as needed. Registered dietitian and development coach have been consulted. (2) Hypertensive urgency Is this a current diagnosis for this admission?: Yes Plan: Elevated again today. Continue amlodipine 10 mg daily Start propanolol IV hydralazine as needed for blood pressures. (3) Hyponatremia Is this a current diagnosis for this admission?: Yes Plan: Resolved. Likely was due to volume depletion. (4) Leukocytosis Is this a current diagnosis for this admission?: Yes Plan: No evidence of acute infection; leukocytosis is likely secondary to diabetic ketoacidosis. Urinalysis is negative for UTI. Chest x-ray is unremarkable. Culture: No growth (final) Blood culture: NGTD No indication for antibiotic therapy at this time. We will continue to monitor for evidence of infectious process. (5) Recent myocardial infarction Is this a current diagnosis for this admission?: Yes Plan: The patient recently had a negative cardiac cath. The patient's SD is felt to be due to vasospasms from cocaine abuse. He did complain of chest pain upon admission which has since resolved. Echocardiogram from July 2017 shows left ventricular hypertrophy with mild to moderate diastolic dysfunction. Will repeat troponin and assess proBNP. Consider repeat echo if BNP is elevated. (6) ARF (acute renal failure) Is this a current diagnosis for this admission?: Yes Plan: Creatinine has trending down. We will continue aggressive IV fluid rehydration. Avoid nephrotoxic medications. (7) Migraine Is this a current diagnosis for this admission?: Yes Plan: No relief with fiorecet. Will provide tramadol; avoid narcotic medications. Will start propanolol for HTN/CHF which will hopefully reduce frequency of headaches as well. (8) Hx of noncompliance with medical treatment, presenting hazards to health Is this a current diagnosis for this admission?: Yes Plan: Will ask the registered dietitian and diabetic nurse educator to meet with the patient. The patient states that he ran out of his insulin syringes and that his remaining syringe broke. He does not have a primary care physician although he does have Medicaid. Will ask the service planner to assist with establishing the patient with a primary care provider for follow-up after discharge. (9) Full code status Is this a current diagnosis for this admission?: Yes
[2017-11-17] MEDS ORDERED: LIDOCAINE 1% INJ-PF (10 MG/ML) 30 ML SDV ONE (13:35)
--- NOTE | 2017-11-17 15:10 | RADIOLOGY REPORT (SQ) ---
EXAM DESCRIPTION: CHEST SINGLE VIEW COMPLETED DATE/TIME: 11/17/2017 3:00 pm REASON FOR STUDY: central line placement COMPARISON: 11/15/2017. NUMBER OF VIEWS: One view. TECHNIQUE: Single frontal radiographic view of the chest acquired. LIMITATIONS: None. FINDINGS: LUNGS AND PLEURA: No opacities, masses or pneumothorax. No pleural effusion. MEDIASTINUM AND HILAR STRUCTURES: No masses. Contour normal. HEART AND VASCULAR STRUCTURES: Heart enlarged without failure. Normal vasculature. BONES: No acute findings. HARDWARE: Central line on the left side. Tip at the level of the cavoatrial junction. OTHER: No other significant finding. IMPRESSION: SATISFACTORY POSITION OF THE CENTRAL LINE. NO PNEUMOTHORAX. STABLE MILD CARDIAC ENLARG EMENT. NO ACUTE FINDINGS. TECHNICAL DOCUMENTATION: JOB ID: [id number] [employer]- All Rights Reserved Reading location - IP/workstation name: [email or web address]
--- NOTE | 2017-11-17 16:24 | OPERATIVE REPORT E ---
Operative Report NAME: LENA SCHULZ : 1985 AGE: 32Y DATE OF SURGERY: ROOM: 327 PREOPERATIVE DIAGNOSIS: POOR VEINS FOR IV ACCESS. POSTOPERATIVE DIAGNOSIS: POOR VEINS FOR IV ACCESS. OPERATION: Placement of left internal jugular vein triple lumen catheter under ultrasound guidance. SURGEON: SHON SOTO M.D. ANESTHESIA: Local. INDICATION: This is a 32-year-old male who needed IV access. PROCEDURE: The patient was placed in the Trendelenburg position and the left neck and upper chest were then prepped and draped in the usual sterile fashion. Local anesthesia infiltrated along the area of the internal jugular vein identified on ultrasound. The internal jugular vein was then punctured and a guidewire passed through the needle into the superior vena cava and the needle removed. Puncture site dilated. A triple lumen catheter was then inserted through the guidewire to a distance of about 18 cm. The catheter was then anchored to the skin with 3-0 silk and all the 3 ports aspirated blood easily, and I was able to instill saline easily. A Biopatch was placed at the entry site and a transparent sterile dressing was placed over the Biopatch and the catheter. A chest x-ray will be obtained for placement. DICTATING PHYSICIAN: SHON SOTO M.D. [id number] Y#: [id number] ID: [id number] JOB#: [id number] ACCT: [id number] cc:SHON SOTO M.D. >
[2017-11-17] MEDS: PROPRANOLOL HCL 40 MG TABLET PO SCH (22:51)
[2017-11-17] MEDS: TEMAZEPAM 15 MG CAPSULE PO SCH (22:51)
[2017-11-17] MEDS: ACETAMINOPHEN 325 MG TABLET PO PRN (22:57)
[2017-11-18] MEDS: NORMAL SALINE 1000 ML 1,000 ML IV PRN (02:16)
[2017-11-18 06:38] LABS: ABSOLUTE BASOPHILS # (AUTO) 0.1 10^3/uL (0.0-0.2); ABSOLUTE EOSINOPHILS # (AUTO) 0.3 10^3/uL (0.0-0.6); ABSOLUTE MONOCYTES (AUTO) 0.8 10^3/uL (0.1-1.4); ABSOLUTE NEUT (AUTO) 6.8 10^3/uL (1.7-8.2); BASOPHILS % (AUTO) 1.1 % (0-2); EOSINOPHILS % (AUTO) 2.7 % (0-6); HEMATOCRIT 36.3 % (37.9-51.0); HEMOGLOBIN 11.5 g/dL (13.5-17.0); LYMPHOCYTES % (AUTO) 20.4 % (13-45); MEAN CORPUSCULAR HEMOGLOBIN 23.1 pg (27.0-33.4); MEAN CORPUSCULAR HGB CONC 31.6 g/dL (32.0-36.0); MEAN CORPUSCULAR VOLUME 73 fl (80-97); PLATELET COUNT 279 10^3/uL (150-450); RED BLOOD COUNT 4.97 10^6/uL (4.35-5.55); RED CELL DISTRIBUTION WIDTH 22.3 % (11.5-14.0); SEGMENTED NEUTROPHILS % (AUTO) 67.8 % (42-78); TOTAL CELLS COUNTED % (AUTO) 100 %
[2017-11-18 06:50] LABS: ANION GAP 19 (5-19); BLOOD UREA NITROGEN 8 mg/dL (7-20); CALCIUM 9.1 mg/dL (8.4-10.2); CARBON DIOXIDE 24 mmol/L (22-30); CHLORIDE 96 mmol/L (98-107); GLUCOSE 267 mg/dL (75-110); POTASSIUM 3.6 mmol/L (3.6-5.0); SODIUM 139.1 mmol/L (137-145)
[2017-11-18] MEDS: PANTOPRAZOLE SODIUM 40 MG VIAL IV SCH (10:18)
[2017-11-18] MEDS: ENOXAPARIN SODIUM INJ 40 MG/0.4 ML DISP.SYRIN SUBCUT SCH (10:18)
[2017-11-18] MEDS: PROPRANOLOL HCL 40 MG TABLET PO SCH ×2 (10:18→21:29)
[2017-11-18] MEDS: AMLODIPINE BESYLATE 10 MG TABLET PO SCH (10:18)
[2017-11-18] MEDS: INSULIN LISPRO 100 UNIT/ML 3 ML VIAL SUBCUT PRN ×4 (10:18→21:33)
[2017-11-18] MEDS: INSULIN GLARGINE,HUM.REC.ANLOG 300 UNIT/3 ML INSULN.PEN SUBCUT SCH (10:18)
[2017-11-18] MEDS ORDERED: HYDRALAZINE HCL INJ/PF 20 MG/1 ML SDV IV PRN (11:52)
[2017-11-18 13:00] LABS: ANION GAP 9 (5-19); BLOOD UREA NITROGEN 10 mg/dL (7-20); CALCIUM 9.1 mg/dL (8.4-10.2); CARBON DIOXIDE 26 mmol/L (22-30); CHLORIDE 101 mmol/L (98-107); GLUCOSE 282 mg/dL (75-110); POTASSIUM 3.4 mmol/L (3.6-5.0); SODIUM 136.4 mmol/L (137-145)
[2017-11-18 13:09] LABS: NT PRO BNP 248 pg/mL (<125)
[2017-11-18 13:13] LABS: TROPONIN I < 0.012 ng/mL
[2017-11-18] MEDS ORDERED: NORMAL SALINE 1000 ML 1,000 ML IV PRN (14:00)
--- NOTE | 2017-11-18 14:05 | PDOC PROGRESS REPORT ---
Subjective Progress Note for:: 11/18/17 Subjective:: The patient is a 32-year-old male with a past medical history of myocardial infarction, hypertension, asthma, migraines, diabetes mellitus type 1, bipolar disorder, substance abuse, tobacco dependency with multiple recent admissions to the emergency department and hospital for DKA related to medication noncompliance and illicit drug use. He was admitted on 11/15/17 for DKA. The patient is seen on rounds. He is found resting in bed comfortably on room air. He is sleeping when I enter but does wake. I did see him to be awake earlier in the day when I walked past his doorway, at that time, he was sitting upright drinking water and looking at his cell phone. Nursing reports that he has had no further complaints of headache, pain, abdominal pain, nausea or vomiting. Reason For Visit: HYPERTENSION, HISTORY OF NONADHERENCE TO MEDICAL Physical Exam Vital Signs: Temp Pulse Resp BP Pulse Ox 98.0 F 86 16 158/103 H 100 11/18/17 11:42 11/18/17 11:42 11/18/17 11:42 11/18/17 11:42 11/18/17 11:42 Intake & Output 11/17/17 11/18/17 11/19/17 06:59 06:59 06:59 Intake Total 4682 4101 Output Total 4320 5076 Balance 357 -974 Weight 95 kg 96.2 kg General appearance: PRESENT: no acute distress, well-developed, well-nourished Head exam: PRESENT: atraumatic, normocephalic Eye exam: PRESENT: conjunctiva pink, EOMI, PERRLA. ABSENT: scleral icterus Ear exam: PRESENT: normal external ear exam Mouth exam: PRESENT: moist, tongue midline Neck exam: ABSENT: carotid bruit, JVD, lymphadenopathy, thyromegaly Respiratory exam: PRESENT: clear to auscultation juan ramon, symmetrical, unlabored. ABSENT: rales, rhonchi, wheezes Cardiovascular exam: PRESENT: RRR, +S1, +S2. ABSENT: diastolic murmur, rubs, systolic murmur Pulses: PRESENT: normal dorsalis pedis pul Vascular exam: PRESENT: normal capillary refill GI/Abdominal exam: PRESENT: normal bowel sounds, soft. ABSENT: distended, guarding, mass, organolmegaly, rebound, tenderness Rectal exam: PRESENT: deferred Extremities exam: PRESENT: full ROM. ABSENT: calf tenderness, clubbing, pedal edema Neurological exam: PRESENT: oriented to person, oriented to place, oriented to time, oriented to situation, CN II-XII grossly intact, other - Sleeping soundly. ABSENT: motor sensory deficit Psychiatric exam: ABSENT: homicidal ideation, suicidal ideation Skin exam: PRESENT: dry, intact, warm. ABSENT: cyanosis, rash Results Laboratory Results: 11/18/17 06:08 11/18/17 11:57 11/18/17 11/18/17 11/18/17 06:08 06:08 11:57 WBC 10.0 RBC 4.97 Hgb 11.5 L Hct 36.3 L MCV 73 L MCH 23.1 L MCHC 31.6 L RDW 22.3 H Plt Count 279 Seg Neutrophils % 67.8 Lymphocytes % 20.4 Monocytes % 8.0 Eosinophils % 2.7 Basophils % 1.1 Absolute Neutrophils 6.8 Absolute Lymphocytes 2.0 Absolute Monocytes 0.8 Absolute Eosinophils 0.3 Absolute Basophils 0.1 Sodium 139.1 136.4 L Potassium 3.6 3.4 L Chloride 96 L 101 Carbon Dioxide 24 26 Anion Gap 19 9 BUN 8 10 Creatinine 1.20 1.18 Est GFR ( Amer) > 60 > 60 Est GFR (Non-Af Amer) > 60 > 60 Glucose 267 H 282 H Calcium 9.1 9.1 11/15/17 11/15/17 11/18/17 22:20 22:20 11:57 Creatine Kinase 217 H CK-MB (CK-2) Cancelled Troponin I Cancelled < 0.012 NT-Pro-B Natriuret Pep 248 H Impressions: Chest X-Ray 11/17/17 13:30 IMPRESSION: SATISFACTORY POSITION OF THE CENTRAL LINE. NO PNEUMOTHORAX. STABLE MILD CARDIAC ENLARGEMENT. NO ACUTE FINDINGS. Assessment & Plan - Diagnosis (1) DKA, type 1 Qualifiers: Diabetes mellitus complication detail: without coma Is this a current diagnosis for this admission?: Yes Plan: The patient is admitted to the [facility] on continuous cardiac telemetry. His anion gap has closed. Continue Lantus with Humalog for sliding scale coverage. He is receiving gentle IV fluids. Clear liquid diet; advance as tolerated. Antiemetics as needed. Registered dietitian and public health educator have been consulted. (2) Hypertensive urgency Is this a current diagnosis for this admission?: Yes Plan: Persistently elevated; p.o. medications have been on board for less than 48 hours. Continue amlodipine 10 mg daily Started propanolol yesterday. Continue IV hydralazine as needed for blood pressures. (3) Hyponatremia Is this a current diagnosis for this admission?: Yes Plan: Improved. Likely was due to volume depletion. (4) Leukocytosis Is this a current diagnosis for this admission?: Yes Plan: Resolved. Urinalysis is negative for UTI. Chest x-ray is unremarkable. Culture: No growth (final) Blood culture: NGTD No indication for antibiotic therapy at this time. We will continue to monitor for evidence of infectious process. (5) Recent myocardial infarction Is this a current diagnosis for this admission?: Yes Plan: The patient recently had a negative cardiac cath. The patient's VA is felt to be due to vasospasms from cocaine abuse. He did complain of chest pain upon admission which has since resolved. Echocardiogram from July 2017 shows left ventricular hypertrophy with mild to moderate diastolic dysfunction. Troponins are negative. Pro-BNP reassuring. (6) ARF (acute renal failure) Is this a current diagnosis for this admission?: Yes Plan: Resolved. Avoid nephrotoxic medications. We will continue to monitor with serial chemistries. (7) Migraine Is this a current diagnosis for this admission?: Yes Plan: Resolved. Will provide tramadol prn; avoid narcotic medications. Will start propanolol for HTN/CHF which will hopefully reduce frequency of headaches as well. (8) Hx of noncompliance with medical treatment, presenting hazards to health Is this a current diagnosis for this admission?: Yes Plan: Will ask the registered dietitian and diabetic nurse educator to meet with the patient. The patient states that he ran out of his insulin syringes and that his remaining syringe broke. He does not have a primary care physician although he does have Medicaid. Will ask the communications planner to assist with establishing the patient with a primary care provider for follow-up after discharge. (9) Full code status Is this a current diagnosis for this admission?: Yes - Time Time Spent with patient: 15-24 minutes Medications reviewed and adjusted accordingly: Yes Anticipated discharge: Home Within: within 24 hours
[2017-11-18] MEDS ORDERED: POTASSIUM CHLORIDE 10 MEQ TABLET.SA PO ONE (16:00)
[2017-11-18] MEDS: ACETAMINOPHEN 325 MG TABLET PO PRN (17:48)
[2017-11-18] MEDS: TEMAZEPAM 15 MG CAPSULE PO SCH (21:30)
[2017-11-18] MEDS ORDERED: DIPHENOXYLATE HCL/ATROP SULF 2.5-0.025 MG TABLET PO ONE (22:00)
[2017-11-19 06:47] LABS: HEMATOCRIT 36.7 % (37.9-51.0); HEMOGLOBIN 11.8 g/dL (13.5-17.0); MEAN CORPUSCULAR HEMOGLOBIN 23.2 pg (27.0-33.4); MEAN CORPUSCULAR HGB CONC 32.1 g/dL (32.0-36.0); MEAN CORPUSCULAR VOLUME 72 fl (80-97); PLATELET COUNT 292 10^3/uL (150-450); RED BLOOD COUNT 5.07 10^6/uL (4.35-5.55); WHITE BLOOD COUNT 10.6 10^3/uL (4.0-10.5)
[2017-11-19] MEDS: INSULIN LISPRO 100 UNIT/ML 3 ML VIAL SUBCUT PRN ×2 (06:52→16:34)
[2017-11-19 07:05] LABS: ANION GAP 11 (5-19); BLOOD UREA NITROGEN 8 mg/dL (7-20); CALCIUM 8.9 mg/dL (8.4-10.2); CARBON DIOXIDE 25 mmol/L (22-30); CHLORIDE 102 mmol/L (98-107); GLUCOSE 263 mg/dL (75-110); POTASSIUM 3.3 mmol/L (3.6-5.0); SODIUM 137.6 mmol/L (137-145)
[2017-11-19] MEDS: AMLODIPINE BESYLATE 10 MG TABLET PO SCH (10:33)
[2017-11-19] MEDS: INSULIN GLARGINE,HUM.REC.ANLOG 300 UNIT/3 ML INSULN.PEN SUBCUT SCH (10:34)
[2017-11-19] MEDS: PROPRANOLOL HCL 40 MG TABLET PO SCH (10:34)
[2017-11-19] MEDS: ENOXAPARIN SODIUM INJ 40 MG/0.4 ML DISP.SYRIN SUBCUT SCH (10:34)
[2017-11-19 15:45] VITALS: BP 154/92
--- NOTE | 2017-12-12 17:11 | PDOC DISCHARGE SUMMARY ---
General - Admit/Disc Date/PCP Admission Date/Primary Care Provider: 11/15/17 11:22 Discharge Date: 11/19/17 - Discharge Diagnosis (1) DKA (diabetic ketoacidoses) Is this a current diagnosis for this admission?: Yes Summary: Initially started on insulin gtt. Once gap was closed, transitioned to lantus and humalog. Tolerating PO diet. patient sent home with insulin pens used while inpatient, instructed to fill perceptions at [facility] in the future. The total cost of his insulin per month is < $15. (2) Hypertensive urgency Is this a current diagnosis for this admission?: Yes Summary: Noncompliant with antihypertensives. Blood pressure controlled with amlodipine and propranolol (3) Migraine Is this a current diagnosis for this admission?: Yes Summary: Resolved with ultram. Now that patient is on propranolol, may also help with migraines. Avoid narcotic medications. (4) Recent myocardial infarction Is this a current diagnosis for this admission?: Yes Summary: Recent negative cardiac cath at [facility]. Thought to be vasospasms secondary to cocaine use. ECHO from 07/2017 shows LVH and mild diastolic dysfunction. The patient initially c/o chest pain, but has resolved. Serial cardiac enzymes negative. No further workup. (5) Hx of noncompliance with medical treatment, presenting hazards to health Is this a current diagnosis for this admission?: Yes Summary: The patient states that he is out of insulin pens and needles. No PMD although he does have Medicaid. The patient will be sent home with humalog and lantus insulin pens to last him approx. 1 month. His insulin was priced out at [employer] and his insulin pens will cost approximately $15 per month. The patient and his ?girlfriend? state that they can afford that. - Additional Information Discharge Diet: Diabetic Discharge Activity: Activity As Tolerated Home Medications: Hydrocortisone [Hydrocortisone 0.5% Cream 28.35 gm] 1 applic TP Q8 tube Insulin Glargine,Hum.rec.anlog [Lantus Insulin 100 Unit/mL] 20 unit SUBCUT Q12 # 10 ml 11/30/17 Insulin Lispro [Humalog Insulin (Lispro) 100 unit/mL] 0 - 12 unit SUBCUT ACHSP PRN #1 ml 11/30/17 Metoprolol Succinate [Toprol Xl 50 mg Tab.sr] 50 mg PO Q12 #30 tab.sr.24h Oxycodone HCl [Oxy-Ir 5 mg Tablet] 15 mg PO Q6HP PRN #10 tablet 11/30/17 Pantoprazole Sodium [Protonix] 40 mg PO BID #60 tablet. 11/30/17 History of Present Illness Patient complains of: nausea and vomiting History of Present Illness: LENA SCHULZ is a 32 year old male who presented to [facility] with a 2 hour history of nausea, vomiting, and HYPERglycemia. The patient is well known to the hospitalist service with multiple admissions to [facility] for DKA. The patient has a PMH of type 1 DM, bipolar, HTN, OH, asthma, migraines, substance abuse, tobacco dependency. The patient was admitted to [facility] on insulin gtt with cardiac telemetry. Hospital Course Hospital Course: as above Physical Exam Vital Signs: Temp Pulse Resp BP Pulse Ox 98.2 F 93 16 154/92 H 100 11/19/17 15:39 11/19/17 15:39 11/19/17 15:39 11/19/17 15:39 11/19/17 15:39 General appearance: PRESENT: no acute distress Eye exam: PRESENT: PERRLA Mouth exam: PRESENT: moist Teeth exam: PRESENT: poor dentation Neck exam: PRESENT: full ROM Respiratory exam: PRESENT: clear to auscultation juan ramon, symmetrical, unlabored Cardiovascular exam: PRESENT: +S1, +S2 Pulses: PRESENT: normal radial pulses, normal dorsalis pedis pul GI/Abdominal exam: PRESENT: normal bowel sounds, soft Rectal exam: PRESENT: deferred Extremities exam: PRESENT: full ROM Musculoskeletal exam: PRESENT: ambulatory, full ROM Neurological exam: PRESENT: alert, awake, oriented to person, oriented to place , oriented to time, oriented to situation Psychiatric exam: PRESENT: appropriate affect Skin exam: PRESENT: normal color Results Laboratory Results: 11/19/17 05:30 11/19/17 05:30 11/15/17 11/15/17 11/18/17 22:20 22:20 11:57 Creatine Kinase 217 H CK-MB (CK-2) Cancelled Troponin I Cancelled < 0.012 NT-Pro-B Natriuret Pep 248 H Impressions: Chest X-Ray 11/17/17 13:30 IMPRESSION: SATISFACTORY POSITION OF THE CENTRAL LINE. NO PNEUMOTHORAX. STABLE MILD CARDIAC ENLARGEMENT. NO ACUTE FINDINGS. Status: Imported from PACS Qualifiers - * PATEINT BEING DISCHARGED WITH ANY OF THE FOLLOWING DIAGNOSIS?: No Plan Discharge Plan: Discharge home with insulin prescriptions for Lantus and Humalog. The patient's Medicaid covers the majority of the cost of insulin, his monthly out of pocket cost should be roughly $15 (per [facility] pharmacist). Additionally, the patient was sent home with the insulin pens he was using in the hospital. These should last him approximately 1 month. Time Spent: Greater than 30 Minutes
== END 2017-11-19 17:02 | disposition home or self-care (01) | DRG 638 ==
LOC: ER 07:45 → EH 11:22 → 3S 16:25
PROVIDERS: ADMIT Student in an Organized Health Care Education/Training Program; ATTEND Student in an Organized Health Care Education/Training Program
PROC: 02HV33Z Insertion of Infusion Device into Superior Vena Cava, Percutaneous Approach (ICD-10-PCS; principal; 2017-11-17)
PROC: B548ZZA Ultrasonography of Superior Vena Cava, Guidance (ICD-10-PCS; 2017-11-17)
DX: E10.10 Type 1 diabetes mellitus with ketoacidosis without coma (principal); N17.9 Acute kidney failure, unspecified; E87.1 Hypo-osmolality and hyponatremia; T38.3X6A Underdosing of insulin and oral hypoglycemic [antidiabetic] drugs, initial encounter; I16.0 Hypertensive urgency; I10 Essential (primary) hypertension; D72.829 Elevated white blood cell count, unspecified; F17.200 Nicotine dependence, unspecified, uncomplicated; F31.9 Bipolar disorder, unspecified; G43.909 Migraine, unspecified, not intractable, without status migrainosus; J45.909 Unspecified asthma, uncomplicated; Z79.4 Long term (current) use of insulin; Z91.138 Patient's unintentional underdosing of medication regimen for other reason; Z83.3 Family history of diabetes mellitus; Z82.49 Family history of ischemic heart disease and other diseases of the circulatory system; I25.2 Old myocardial infarction; Z90.49 Acquired absence of other specified parts of digestive tract
CPT/HCPCS: 36415; 71045; 80048; 80053; 80307; 81001; 82550; 82553; 82803; 82962; 83880; 84484; 85025; 85027; 87040; 87086; 93005; 93010; 96361; 96372; 96374; 96375; 99285; C1751; J0360; J1642; J1650; J1815; J2405; J2550; J3480; J3490; J7030; J7620; S0164

== ENCOUNTER 2017-11-20 08:44 | Inpatient (IN) | payer MEDICAID ==
--- NOTE | 2017-11-20 09:09 | ER Document Report ---
ED General - General Chief Complaint: Chest Pain Stated Complaint: CHEST PAIN Time Seen by Provider: 11/20/17 09:05 TRAVEL OUTSIDE OF THE [place] IN LAST 30 DAYS: No - HPI Notes: 32-year-old poorly controlled diabetic male presents with nausea vomiting chest pain. Pain is 10/10 sharp in nature without radiation also had an episode of hemoptysis this morning. Patient was just discharged from the hospital last night with DKA. Presents again with kasmauls breathing and respiratory distress. Ill-appearing man. Mentation is a little slow but does answer questions appropriately. - Related Data Allergies/Adverse Reactions: No Known Allergies Allergy (Verified 11/20/17 09:41) Past Medical History - Social History Smoking Status: Unknown if Ever Smoked Family History: DM, Hypertension - Past Medical History Cardiac Medical History: Reports: Hx Heart Attack - May 2017., Hx Hypertension Denies: Hx Congestive Heart Failure, Hx DVT, Hx Hypercholesterolemia, Hx Pulmonary Embolism Pulmonary Medical History: Reports: Hx Asthma - as child Denies: Hx COPD, Hx Sleep Apnea Neurological Medical History: Reports: Hx Migraine. Denies: Hx Seizures Endocrine Medical History: Reports: Hx Diabetes Mellitus Type 1. Denies: Hx Diabetes Mellitus Type 2, Hx Hyperthyroidism, Hx Hypothyroidism Renal/ Medical History: Denies: Hx Peritoneal Dialysis GI Medical History: Denies: Hx Cirrhosis, Hx Gastroesophageal Reflux Disease, Hx Hepatitis Musculoskeltal Medical History: Denies Hx Arthritis Psychiatric Medical History: Reports: Hx Anxiety, Hx Bipolar Disorder, Hx Depression, Hx Schizophrenia Infectious Medical History: Denies: Hx C-Diff, Hx Hepatitis, Hx MRSA Past Surgical History: Reports: Hx Appendectomy, Hx Oral Surgery - wisdom teeth , Other - [place] teeth extraction - Immunizations Hx Diphtheria, Pertussis, Tetanus Vaccination: Yes Hx Pneumococcal Vaccination: 09/16/00 Review of Systems - Review of Systems Notes: REVIEW OF SYSTEMS: CONSTITUTIONAL: -fevers, -chills EENT: -eye pain, -difficulty swallowing, -nasal congestion CARDIOVASCULAR: Positive chest pain RESPIRATORY: -cough, -SOB GASTROINTESTINAL: Nausea vomiting GENITOURINARY: -dysuria, -hematuria MUSCULOSKELETAL: -back pain, -neck pain SKIN: -rash or skin lesions. HEMATOLOGIC: -easy bruising or bleeding. LYMPHATIC: -swollen, enlarged glands. NEUROLOGICAL: -altered mental status or loss of consciousness, -headache, - neurologic symptoms PSYCHIATRIC: -anxiety, -depression. ALL OTHER SYSTEMS REVIEWED AND NEGATIVE. Physical Exam - Vital signs Vitals: Resp 20 11/20/17 09:05 - Notes Notes: PHYSICAL EXAMINATION: GENERAL: Severe acute distress HEAD: Atraumatic, normocephalic. EYES: Pupils equal round and reactive to light, extraocular movements intact, sclera anicteric, conjunctiva are normal. ENT: nares patent, oropharynx clear without exudates. Moist mucous membranes. NECK: Normal range of motion, supple without lymphadenopathy LUNGS: Breath sounds clear to auscultation bilaterally and equal. No wheezes rales or rhonchi. HEART: Tachycardia ABDOMEN: Soft, nontender, normoactive bowel sounds. No guarding, no rebound. No masses appreciated. EXTREMITIES: Normal range of motion, no pitting or edema. No cyanosis. NEUROLOGICAL: Cranial nerves grossly intact. Normal speech, normal gait. Normal sensory and motor exams. PSYCH: Normal mood, normal affect. SKIN: Warm, Dry, normal turgor, no rashes or lesions noted. Course - Re-evaluation Re-evalutation: 11/20/17 10:15 Critically ill-appearing man presents tachycardia, episode of hemoptysis chest pain. Kussmaul's breathing, respiratory distress. Patient found to have 6 severely elevated sugar, anion gap of 28. Ketones in his urine acidotic. Patient is emergent IV access established, fluid resuscitation began. I order a emergent insulin drip. Patient's potassium 3.6 will start repleting with oral potassium and then initiate more potassium replacement in the department. Patient will be admitted to the ICU - Vital Signs Vital signs: Temp Pulse Resp BP Pulse Ox 20 11/20/17 09:05 - Laboratory Result Diagrams: 11/20/17 09:10 11/20/17 09:10 Laboratory results interpreted by me: 11/20/17 11/20/17 11/20/17 09:10 09:10 09:10 WBC 18.8 H Hgb 11.9 L MCV 74 L MCH 23.1 L MCHC 31.2 L RDW 21.8 H Sodium 136.2 L Chloride 91 L Carbon Dioxide 17 L Anion Gap 28 H Creatinine 1.97 H Est GFR ( Amer) 48 L Est GFR (Non-Af Amer) 39 L Glucose 601 H* Direct Bilirubin 0.6 H AST 16 L NT-Pro-B Natriuret Pep 340 H Urine Protein Urine Glucose (UA) Urine Ketones Urine Blood 11/20/17 09:10 WBC Hgb MCV MCH MCHC RDW Sodium Chloride Carbon Dioxide Anion Gap Creatinine Est GFR ( Amer) Est GFR (Non-Af Amer) Glucose Direct Bilirubin AST NT-Pro-B Natriuret Pep Urine Protein >=500 H Urine Glucose (UA) >=500 H Urine Ketones 80 H Urine Blood MODERATE H - EKG Interpretation by Me Additional EKG results interpreted by me: 11/20/17 09:35 Sinus tachycardia 117 bpm, no ST elevations or depressions, normal QTC, normal QRS Critical Care Note - Critical Care Note Total time excluding time spent on procedures (mins): 38 Discharge - Discharge Clinical Impression: Respiratory distress DKA (diabetic ketoacidoses) Qualifiers: Diabetes mellitus type: other specified (including LUANA) Diabetes mellitus complication detail: without coma Qualified Code(s): E13.10 - Other specified diabetes mellitus with ketoacidosis without coma Nausea & vomiting Qualifiers: Vomiting type: unspecified Vomiting Intractability: non-intractable Qualified Code(s): R11.2 - Nausea with vomiting, unspecified Condition: Critical Disposition: ADMITTED INPATIENT Admitting Provider: Hospitalist - Dr. Tapia
[2017-11-20] MEDS ORDERED: HYDROMORPHONE HCL INJ/PF 2 MG/ML AMPULE IM ONE (09:11)
[2017-11-20] MEDS ORDERED: RINGERS SOLUTION,LACTATED 1,000 ML IV ONE (09:21)
[2017-11-20 09:36] LABS: INTERNATIONAL RATION (INR) 0.92; PARTIAL THROMBOPLASTIN TIME 31.7 SEC (23.5-35.8); PROTHROMBIN TIME 13.1 SEC (11.4-15.4)
[2017-11-20 09:41] LABS: APPEARANCE,URINE CLEAR; BILIRUBIN,URINE NEGATIVE (NEGATIVE); COLOR,URINE STRAW; GLUCOSE, URINE >=500 mg/dL (NEGATIVE); KETONES,URINE 80 mg/dL (NEGATIVE); LEUKOCYTE ESTERASE,URINE NEGATIVE (NEGATIVE); NITRITE,URINE NEGATIVE (NEGATIVE); PROTEIN,URINE >=500 mg/dL (NEGATIVE); UROBILINOGEN,URINE NEGATIVE mg/dL (<2.0)
[2017-11-20 09:44] LABS: HEMATOCRIT 38.2 % (37.9-51.0); HEMOGLOBIN 11.9 g/dL (13.5-17.0); MEAN CORPUSCULAR HEMOGLOBIN 23.1 pg (27.0-33.4); MEAN CORPUSCULAR HGB CONC 31.2 g/dL (32.0-36.0); MEAN CORPUSCULAR VOLUME 74 fl (80-97); PLATELET COUNT 350 10^3/uL (150-450); RED BLOOD COUNT 5.17 10^6/uL (4.35-5.55); RED CELL DISTRIBUTION WIDTH 21.8 % (11.5-14.0); WHITE BLOOD COUNT 18.8 10^3/uL (4.0-10.5)
[2017-11-20 09:49] LABS: ALANINE AMINOTRANSFERASE 28 U/L (21-72); ALBUMIN 4.1 g/dL (3.5-5.0); ALKALINE PHOSPHATASE 125 U/L (38-126); ASPARTATE AMINO TRANSFERASE 16 U/L (17-59); BILIRUBIN,DIRECT 0.6 mg/dL (0.0-0.4); BILIRUBIN,TOTAL 0.7 mg/dL (0.2-1.3); BLOOD UREA NITROGEN 19 mg/dL (7-20); CALCIUM 9.4 mg/dL (8.4-10.2); CHLORIDE 91 mmol/L (98-107); POTASSIUM 3.6 mmol/L (3.6-5.0); TOTAL PROTEIN 7.1 g/dL (6.3-8.2)
--- NOTE | 2017-11-20 09:50 | RADIOLOGY REPORT (SQ) ---
EXAM DESCRIPTION: CHEST SINGLE VIEW COMPLETED DATE/TIME: 11/20/2017 9:37 am REASON FOR STUDY: chest pain COMPARISON: 11/17/2017. EXAM PARAMETERS: NUMBER OF VIEWS: One view. TECHNIQUE: Single frontal radiographic view of the chest acquired. RADIATION DOSE: NA LIMITATIONS: None. FINDINGS: LUNGS AND PLEURA: No opacities, masses or pneumothorax. No pleural effusion. MEDIASTINUM AND HILAR STRUCTURES: No masses. Contour normal. HEART AND VASCULAR STRUCTURES: Heart normal in size. Normal vasculature. BONES: No acute findings. HARDWARE: None in the chest. OTHER: Chest leads in place. IMPRESSION: NO ACUTE DISEASE. TECHNICAL DOCUMENTATION: JOB ID: [id number] [employer]- All Rights Reserved Reading location - IP/workstation name: [email or web address]
[2017-11-20 09:54] LABS: CARBON DIOXIDE 17 mmol/L (22-30); SODIUM 136.2 mmol/L (137-145)
[2017-11-20 10:00] LABS: ANION GAP 28 (5-19)
[2017-11-20 10:01] LABS: NT PRO BNP 340 pg/mL (<125)
[2017-11-20 10:02] LABS: GLUCOSE 601 mg/dL (75-110)
[2017-11-20 10:04] LABS: TROPONIN I < 0.012 ng/mL
[2017-11-20] MEDS ORDERED: NORMAL SALINE 1000 ML 1,000 ML IV ONE (10:08)
[2017-11-20] MEDS ORDERED: NORMAL SALINE 100 ML with INSULIN REGULAR, HUMAN 100 UNIT IV PRN ×2 (10:08)
[2017-11-20] MEDS ORDERED: PROMETHAZINE HCL INJ 25 MG/1 ML VIAL IV ONE (10:09)
[2017-11-20] MEDS ORDERED: POTASSI CL 20 MEQ/50 ML RIDER 20 MEQ/50 ML RTUPB IV SCH (10:09)
[2017-11-20] MEDS ORDERED: POTASSIUM CHLORIDE 20 MEQ/15 ML UDCUP PO ONE (10:10)
[2017-11-20 10:20] LABS: ABSOLUTE LYMPHOCYTES# (MANUAL) 1.1 10^3/uL (0.5-4.7); ABSOLUTE MONOCYTES # (MANUAL) 0.4 10^3/uL (0.1-1.4); ABSOLUTE NEUTROPHILS# (MANUAL) 17.3 10^3/uL (1.7-8.2); BASOPHILS % (MANUAL) 0 % (0-2); EOSINOPHILS % (MANUAL) 0 % (0-6); HYPOCHROMASIA SLIGHT; LYMPHOCYTES % (MANUAL) 6 % (13-45); MONOCYTES % (MANUAL) 2 % (3-13); OVALOCYTES 1+; PLATELET COMMENT ADEQUATE; POIKILOCYTOSIS 1+; SEGMENTED NEUTROPHILS % (MAN) 92 % (42-78); TOTAL CELLS COUNTED 100; TOXIC GRANULATION SLIGHT
[2017-11-20] MEDS ORDERED: INSULIN REG, HUMAN 100 UNIT/ML 3 ML VIAL (PYX) ONE (10:57)
[2017-11-20] MEDS ORDERED: DEXTROSE 40% GEL 15 GM TUBE PO PRN ×2 (10:58)
[2017-11-20] MEDS ORDERED: DEXTROSE 50%-WATER 25 GM/50 ML DISP.SYRIN IV PRN ×2 (10:58)
[2017-11-20] MEDS ORDERED: ONDANSETRON HCL INJ/PF 4 MG/2 ML SDV IV PRN (10:58)
[2017-11-20] MEDS ORDERED: GLUCAGON,HUMAN RECOMB 1 MG INJ SUBCUT PRN (10:58)
[2017-11-20] MEDS ORDERED: NORMAL SALINE 1000 ML 1,000 ML IV PRN (10:58)
[2017-11-20 11:02] LABS: URINE AMPHETAMINES SCREEN NEGATIVE; URINE BARBITURATES SCREEN UNCONFIRMED POSITIVE; URINE BENZODIAZEPINES SCREEN UNCONFIRMED POSITIVE; URINE COCAINE SCREEN UNCONFIRMED POSITIVE; URINE MARIJUANA (THC) SCREEN NEGATIVE; URINE METHADONE SCREEN NEGATIVE; URINE PHENCYCLIDINE SCREEN NEGATIVE
[2017-11-20 11:16] LABS: VENOUS BLOOD BASE EXCESS -6.6 mmol/L; VENOUS BLOOD HCO3 18.4 mmol/L (20-32); VENOUS BLOOD PCO2 35.3 mmHg (35-63); VENOUS BLOOD PH 7.34 (7.30-7.42)
[2017-11-20] MEDS: FENTANYL CITRATE INJ/PF 100 MCG/2 ML AMPUL IV PRN ×2 (11:49→22:04)
--- NOTE | 2017-11-20 12:44 | PDOC CONSULTATION ---
Consultation Consult Date: 11/20/17 Attending physician:: PITA LYON Consult reason:: nausea and vomiting History of Present Illness Admission Date/PCP: 11/20/17 10:37 KRYSTIN LACKEY DO History of Present Illness: LENA SCHULZ is a 32 year old male patient is being admitted with DKA and with the associated symptoms of nausea and vomiting he has been scoped in the past by the surgicalist medical numerical control operator patient had biopsies in the past that was negative he presents to the ED with DKA and has been having nausea and vomiting his last scope was 11/30 he is being admitted to the ICU, he has mental status changes related to his DKA he is on an insulin drip and large volume resuscitation his Hgb is 11.9 will likely drop with dilution patient had an episode of hemoptysis and chest pain could have had an isolated annia edwards tear, if it is GI at all Past Medical History Cardiac Medical History: Reports: Myocardial Infarction - May 2017., Hypertension Denies: Congestive Heart Failure, DVT, Hyperlipidema, Pulmonary Embolism Pulmonary Medical History: Reports: Asthma - as child Denies: Chronic Obstructive Pulmonary Disease (COPD), Sleep Apnea Neurological Medical History: Reports: Migraine Denies: Seizures Endocrine Medical History: Reports: Diabetes Mellitus Type 1 Denies: Diabetes Mellitus Type 2, Hyperthyroidism, Hypothyroidism GI Medical History: Denies: Cirrhosis, Gastroesophageal Reflux Disease, Hepatitis Musculoskeltal Medical History: Denies: Arthritis Psychiatric Medical History: Reports: Bipolar Disorder, Depression Hematology: Infectious Medical History: Denies: Clostridium Difficile, Methicillin-Resistant Staph Aureus Past Surgical History Past Surgical History: Reports: Appendectomy, Other - [place] teeth extraction Social History Smoking Status: Unknown if Ever Smoked Frequency of Alcohol Use: None Hx Recreational Drug Use: No Drugs: None Hx Prescription Drug Abuse: Yes - oxycodone Family History Family History: DM, Hypertension Parental Family History Reviewed: Yes Children Family History Reviewed: Unknown Sibling(s) Family History Reviewed.: Unknown Medication/Allergy Home Medications: No Home Medications 11/20/17 Allergies/Adverse Reactions: No Known Allergies Allergy (Verified 11/20/17 09:41) Review of Systems Constitutional: ABSENT: fever(s), headache(s), night sweats Eyes: ABSENT: visual disturbances Ears: ABSENT: hearing changes Nose, Mouth, and Throat: ABSENT: mouth pain Cardiovascular: PRESENT: chest pain Respiratory: PRESENT: hemoptysis Gastrointestinal: PRESENT: nausea, vomiting. ABSENT: hematochezia, melena Genitourinary: PRESENT: nocturia. ABSENT: dysuria, hematuria Neurological: ABSENT: syncope, tingling, tremor(s), vertigo Endocrine: PRESENT: polyuria Hematologic/Lymphatic: ABSENT: easy bruising Physical Exam Vital Signs: Temp Pulse Resp BP Pulse Ox 18 179/104 H 100 11/20/17 12:20 11/20/17 12:20 11/20/17 12:20 General appearance: PRESENT: mild distress Head exam: PRESENT: atraumatic, normocephalic Eye exam: PRESENT: EOMI, PERRLA. ABSENT: nystagmus, periorbital swelling, scleral icterus Mouth exam: PRESENT: moist, neck supple Throat exam: ABSENT: tonsillar exudate, tonsillogmegaly Neck exam: ABSENT: meningismus, tenderness, thyromegaly Respiratory exam: PRESENT: accessory muscle use, symmetrical, tachypnea. ABSENT : wheezes Cardiovascular exam: PRESENT: RRR, +S1, +S2 GI/Abdominal exam: PRESENT: soft. ABSENT: Tran's sign, rebound, rigid Extremities exam: ABSENT: joint swelling Neurological exam: PRESENT: CN II-XII grossly intact Focused psych exam: ABSENT: restlessness Skin exam: PRESENT: normal color. ABSENT: mottled, pallor, urticaria, vesicles Results Laboratory Results: 11/20/17 11/20/17 11:04 11:04 VBG pH 7.34 VBG pCO2 35.3 VBG HCO3 18.4 L VBG Base Excess -6.6 Lactic Acid 1.3 Impressions: Chest X-Ray 11/20/17 09:13 IMPRESSION: NO ACUTE DISEASE. Assessment & Plan - Diagnosis (1) DKA (diabetic ketoacidoses) Qualifiers: Diabetes mellitus type: other specified (including LUANA) Diabetes mellitus complication detail: without coma Qualified Code(s): E13.10 - Other specified diabetes mellitus with ketoacidosis without coma Plan: ICU admit large volume fluid resuscitaion insulin drip as per hospitalist (2) Nausea and vomiting Qualifiers: Vomiting type: unspecified Vomiting Intractability: non-intractable Qualified Code(s): R11.2 - Nausea with vomiting, unspecified Plan: likely due to his DKA, previous scope last year ? if has Annia edwards tear, need to control with either Zofran or phernagren will hold off on any EGD ( if needed) until DKA has completely resolved or unless there is acute bleeding I do suspect that his Hgb will drop with the amount of hydration that he will be receiving (3) Chest pain Qualifiers: Chest pain type: unspecified Qualified Code(s): R07.9 - Chest pain, unspecified Plan: chest x ray. make sure no Borrhave's syndrome rule out PR likely due to his nausea and vomiting follow up as needed multiple recent admissions with similar presentation PPI olivia , - Time Time Spent: 50 to 70 Minutes
[2017-11-20] MEDS ORDERED: PANTOPRAZOLE SODIUM 80 MG in NORMAL SALINE 100 ML IV ONE (13:00)
[2017-11-20] MEDS: LEVALBUTEROL HCL NEB 1.25 MG/3 ML AMPUL NEB SCH ×2 (14:17→20:46)
--- NOTE | 2017-11-20 14:30 | PDOC H&P ---
History of Present Illness Admission Date/PCP: 11/20/17 10:37 KRYSTIN LACKEY DO Patient complains of: Chest pain, vomiting, being able to eat. History of Present Illness: LENA SCHULZ is a 32 year old male with a history of coronary artery disease status post ME in May 2017, grade 1 diastolic dysfunction hypertension polysubstance abuse and type 1 diabetes presenting in DKA. Patient states he woke up this morning with chest pain. Patient began vomiting off and on. Patient has been having bloody emesis off and on. Patient has no appetite and has no appetite for quite some time. Patient is requesting something for pain. Patient does not provide much history. Patient is at the bedside however does not provide much history either. The ED patient was noted to be in DKA with a blood glucose greater than 600. Patient was given IV fluids and started on insulin drip. Patient was also started on a Protonix drip. Hospitalist was called to admit patient for DKA, hematemesis chest pain. Past Medical History Cardiac Medical History: Reports: Myocardial Infarction - May 2017., Hypertension Denies: Congestive Heart Failure, DVT, Hyperlipidema, Pulmonary Embolism Pulmonary Medical History: Reports: Asthma - as child Denies: Chronic Obstructive Pulmonary Disease (COPD), Sleep Apnea Neurological Medical History: Reports: Migraine Denies: Seizures Endocrine Medical History: Reports: Diabetes Mellitus Type 1 Denies: Diabetes Mellitus Type 2, Hyperthyroidism, Hypothyroidism GI Medical History: Denies: Cirrhosis, Gastroesophageal Reflux Disease, Hepatitis Musculoskeltal Medical History: Denies: Arthritis Psychiatric Medical History: Reports: Bipolar Disorder, Depression Hematology: Infectious Medical History: Denies: Clostridium Difficile, Methicillin-Resistant Staph Aureus Past Surgical History Past Surgical History: Reports: Appendectomy, Other - [place] teeth extraction Social History Smoking Status: Never Smoker Frequency of Alcohol Use: None Hx Recreational Drug Use: No Drugs: Cocaine Hx Prescription Drug Abuse: Yes - oxycodone - Advance Directive Resuscitation Status: Full Code Family History Family History: DM, Hypertension Parental Family History Reviewed: No Children Family History Reviewed: No Sibling(s) Family History Reviewed.: No Medication/Allergy Home Medications: No Home Medications 11/20/17 Allergies/Adverse Reactions: No Known Allergies Allergy (Verified 11/20/17 09:41) Review of Systems Constitutional: PRESENT: anorexia. ABSENT: chills, fever(s), headache(s), weight gain, weight loss Eyes: ABSENT: visual disturbances Ears: ABSENT: hearing changes Cardiovascular: PRESENT: chest pain. ABSENT: dyspnea on exertion, edema, orthropnea, palpitations Respiratory: ABSENT: cough, hemoptysis Gastrointestinal: PRESENT: abdominal pain, vomiting. ABSENT: constipation, diarrhea, hematemesis, hematochezia, nausea Genitourinary: ABSENT: dysuria, hematuria Musculoskeletal: ABSENT: joint swelling Integumentary: ABSENT: rash, wounds Neurological: ABSENT: abnormal gait, abnormal speech, confusion, dizziness, focal weakness, syncope Psychiatric: PRESENT: depression. ABSENT: anxiety, homidical ideation, suicidal ideation Endocrine: ABSENT: cold intolerance, heat intolerance, polydipsia, polyuria Hematologic/Lymphatic: ABSENT: easy bleeding, easy bruising Physical Exam Vital Signs: Temp Pulse Resp BP Pulse Ox 98.1 F 20 157/89 H 100 11/20/17 10:00 11/20/17 13:40 11/20/17 13:40 11/20/17 13:40 Intake & Output 11/19/17 11/20/17 11/21/17 06:59 06:59 06:59 Output Total 1500 Balance -1500 General appearance: PRESENT: no acute distress, mild distress Head exam: PRESENT: normocephalic Eye exam: PRESENT: EOMI. ABSENT: scleral icterus Ear exam: PRESENT: normal external ear exam Mouth exam: PRESENT: dry mucosa Neck exam: ABSENT: carotid bruit, JVD, lymphadenopathy, thyromegaly Respiratory exam: PRESENT: clear to auscultation juan ramon. ABSENT: rales, rhonchi, wheezes Cardiovascular exam: PRESENT: tachycardia. ABSENT: diastolic murmur, rubs, systolic murmur GI/Abdominal exam: PRESENT: normal bowel sounds, soft, tenderness. ABSENT: distended, guarding, mass, organolmegaly, rebound Rectal exam: PRESENT: deferred Extremities exam: PRESENT: full ROM. ABSENT: calf tenderness, clubbing, pedal edema Neurological exam: PRESENT: alert, awake, oriented to person, oriented to place , oriented to time, oriented to situation, CN II-XII grossly intact. ABSENT: motor sensory deficit Psychiatric exam: PRESENT: appropriate affect. ABSENT: homicidal ideation, suicidal ideation Skin exam: PRESENT: dry, intact, warm. ABSENT: cyanosis, rash Results Laboratory Results: 11/20/17 11/20/17 11:04 11:04 VBG pH 7.34 VBG pCO2 35.3 VBG HCO3 18.4 L VBG Base Excess -6.6 Lactic Acid 1.3 Impressions: Chest X-Ray 11/20/17 09:13 IMPRESSION: NO ACUTE DISEASE. Assessment & Plan - Diagnosis (1) Hyperglycemia due to type 1 diabetes mellitus Is this a current diagnosis for this admission?: Yes Plan: Patient with early DKA. Plan patient blood glucose greater than 600. Patient bolused 2. Patient started on insulin drip. Will check hemoglobin A1c. (2) Hematemesis/vomiting blood Is this a current diagnosis for this admission?: Yes Plan: Patient vomiting blood. Most likely due to Annia-Horan tear. Patient has had problem with bleeding in the past. Patient had a scope last year. Will start patient on Protonix drip. Will follow up hemoglobin. GI was consulted. Will monitor patient for now. (3) ARF (acute renal failure) Is this a current diagnosis for this admission?: Yes Plan: Likely secondary to dehydration. Creatinine is 1.97. Patient creatinine on 11/19 was 1.13. Will continue to monitor. (4) Polysubstance abuse Is this a current diagnosis for this admission?: Yes Plan: UDS positive for cocaine, benzos and barbiturates. Will have to place patient on some kind of prophylaxis to prevent withdrawal. Counseled patient on smoking cessation and place patient on nicotine patch. (5) Chest pain Qualifiers: Chest pain type: unspecified Qualified Code(s): R07.9 - Chest pain, unspecified Is this a current diagnosis for this admission?: Yes Plan: With atypical chest pain most likely secondary to vomiting. Patient initial troponin is negative. Will trend tomorrow. Will start patient on metoprolol. (6) Nausea and vomiting Qualifiers: Vomiting type: unspecified Vomiting Intractability: non-intractable Qualified Code(s): R11.2 - Nausea with vomiting, unspecified Is this a current diagnosis for this admission?: Yes Plan: Nausea vomiting most likely due to elevated blood glucose. Will control his diabetes and start patient on as needed Reglan and other anti-emetics (7) Hypertension Qualifiers: Hypertension type: essential hypertension Qualified Code(s): I10 - Essential (primary) hypertension Is this a current diagnosis for this admission?: Yes Plan: Patient on metoprolol. Will start patient on IV metoprolol as needed for systolic blood pressure greater than 160. (8) Leukocytosis Is this a current diagnosis for this admission?: Yes Plan: This most likely reactive. Patient does not have any obvious signs of infection. - Time Time Spent: 30 to 50 Minutes Anticipated discharge: Home Within: within 48 hours - Inpatient Certification Medical Necessity: Significant Comorbidiites Make Outpatient Treatment Too Risky , Need Close Monitoring Due to Risk of Patient Decompensation, Need For IV Fluids
[2017-11-20 14:41] LABS: BLOOD UREA NITROGEN 19 mg/dL (7-20); CALCIUM 8.5 mg/dL (8.4-10.2); POTASSIUM 3.7 mmol/L (3.6-5.0)
[2017-11-20] MEDS ORDERED: HYDROMORPHONE HCL INJ/PF 2 MG/ML AMPULE IV ONE (14:44)
[2017-11-20 14:46] LABS: CARBON DIOXIDE 13 mmol/L (22-30); CHLORIDE 97 mmol/L (98-107); SODIUM 139.8 mmol/L (137-145)
[2017-11-20 14:48] LABS: ANION GAP 30 (5-19)
[2017-11-20 14:49] LABS: GLUCOSE 434 mg/dL (75-110)
[2017-11-20] MEDS ORDERED: MIDAZOLAM 2 MG/2 ML INJ IV ONE (14:49)
[2017-11-20] MEDS ORDERED: DIPHENHYDRAMINE HCL 50 MG/ML VIAL IV ONE (14:49)
[2017-11-20] MEDS: LORAZEPAM INJ 2 MG/1 ML VIAL IV PRN (15:01)
--- NOTE | 2017-11-20 16:04 | RADIOLOGY REPORT (SQ) ---
EXAM DESCRIPTION: PICC INSERTION; U/S GUIDE FOR VASCULAR ACCESS; FLUORO/CV PLACEMENT COMPLETED DATE/TIME: 11/20/2017 3:40 pm REASON FOR STUDY: poor access ; IV ACCESS COMPARISON: None. FLUOROSCOPY TIME: 7 seconds. 1 images saved to PACS. TECHNIQUE: Fluoroscopic and ultrasound guided PICC placement. LIMITATIONS: None. PROCEDURE: After written consent and assessment were obtained, the patient was brought into the fluo roscopy room and place supine on the table. Ultrasound was used on the patient's left arm for PICC a ccess. The left arm was prepped and draped in a sterile fashion along with the ultrasound probe. The entry site was anesthetized with 1% lidocaine. A 21 gauge 7 cm needle was advanced through the skin a nd into the basilic vein under live ultrasound guidance. An ultrasound image was saved to PACS confi rming access site. A .018 guide wire was then inserted through the needle and into the venous system . The needle was the removed and an 11 blade scalpel was used to make a 1cm skin incision. A 5 fr pe el-away sheath was advanced over the wire and into the venous system. A measurement was then made usi ng the existing wire and live fluoroscopic guidance. The wire was then removed and the trimmed. The P ICC was advanced through the peel-away sheath and into the venous system. The peel-away sheath was re moved and the catheter was adhered to the patients arm with a stat lock. The catheter was then aspira aubrey and flushed and a sterile bandage was placed over the access site. A fluoroscopic spot image was saved to PACS confirming the catheter tip within the superior vena cava. IMPRESSION: SUCCESSFUL PLACEMENT OF A 5 FR DUAL LUMEN 43 CM PICC IN THE LEFT BASILIC VEIN. COMMENT: Patient medication list reviewed: Yes- Quality ID# [id number]:Eligible professional attests to doc umenting in the medical record they obtained, updated, or reviewed the patient's current medications. . Quality ID 145: Final reports for procedures using fluoroscopy that document radiation exposure [place]ony [place], or exposure time and number of fluorographic images (if radiation exposure indices are not avail able) Quality ID #76: The patient was prepped and draped using maximum sterile barrier technique including cap, mask, sterile gown, sterile gloves, a large sterile sheet, hand hygiene, and 2% Chlorhexidine fo r cutaneous antisepsis. When ultrasound is used, sterile ultrasound techniques are followed requiring sterile gel and sterile probes. TECHNICAL DOCUMENTATION: JOB ID: [id number] [employer]- All Rights Reserved Reading location - IP/workstation name: [facility]
--- NOTE | 2017-11-20 16:04 | RADIOLOGY REPORT (SQ) ---
EXAM DESCRIPTION: PICC INSERTION; U/S GUIDE FOR VASCULAR ACCESS; FLUORO/CV PLACEMENT COMPLETED DATE/TIME: 11/20/2017 3:40 pm REASON FOR STUDY: poor access ; IV ACCESS COMPARISON: None. FLUOROSCOPY TIME: 7 seconds. 1 images saved to PACS. TECHNIQUE: Fluoroscopic and ultrasound guided PICC placement. LIMITATIONS: None. PROCEDURE: After written consent and assessment were obtained, the patient was brought into the fluo roscopy room and place supine on the table. Ultrasound was used on the patient's left arm for PICC a ccess. The left arm was prepped and draped in a sterile fashion along with the ultrasound probe. The entry site was anesthetized with 1% lidocaine. A 21 gauge 7 cm needle was advanced through the skin a nd into the basilic vein under live ultrasound guidance. An ultrasound image was saved to PACS confi rming access site. A .018 guide wire was then inserted through the needle and into the venous system . The needle was the removed and an 11 blade scalpel was used to make a 1cm skin incision. A 5 fr pe el-away sheath was advanced over the wire and into the venous system. A measurement was then made usi ng the existing wire and live fluoroscopic guidance. The wire was then removed and the trimmed. The P ICC was advanced through the peel-away sheath and into the venous system. The peel-away sheath was re moved and the catheter was adhered to the patients arm with a stat lock. The catheter was then aspira aubrey and flushed and a sterile bandage was placed over the access site. A fluoroscopic spot image was saved to PACS confirming the catheter tip within the superior vena cava. IMPRESSION: SUCCESSFUL PLACEMENT OF A 5 FR DUAL LUMEN 43 CM PICC IN THE LEFT BASILIC VEIN. COMMENT: Patient medication list reviewed: Yes- Quality ID# [id number]:Eligible professional attests to doc umenting in the medical record they obtained, updated, or reviewed the patient's current medications. . Quality ID 145: Final reports for procedures using fluoroscopy that document radiation exposure [place], or exposure time and number of fluorographic images (if radiation exposure indices are not avail able) Quality ID #76: The patient was prepped and draped using maximum sterile barrier technique including cap, mask, sterile gown, sterile gloves, a large sterile sheet, hand hygiene, and 2% Chlorhexidine fo r cutaneous antisepsis. When ultrasound is used, sterile ultrasound techniques are followed requiring sterile gel and sterile probes. TECHNICAL DOCUMENTATION: JOB ID: [id number] [employer]- All Rights Reserved Reading location - IP/workstation name: [facility] BEDS AT THE [facility]-2
[2017-11-20] MEDS ORDERED: NORMAL SALINE INJ/PF 0.9% 10 ML SDV IV PRN (16:27)
[2017-11-20] MEDS: NICOTINE 21 MG/24 HR PATCH.TD24 TD SCH (16:36)
[2017-11-20] MEDS: NORMAL SALINE 100 ML with PANTOPRAZOLE SODIUM 80 MG IV PRN ×2 (17:29)
[2017-11-20] MEDS: METOCLOPRAMIDE HCL INJ/PF 10 MG/2 ML SDV IV PRN (17:30)
[2017-11-20 18:22] LABS: ABSOLUTE BASOPHILS # (AUTO) 0.1 10^3/uL (0.0-0.2); ABSOLUTE LYMPHOCYTES (AUTO) 1.4 10^3/uL (0.5-4.7); ABSOLUTE MONOCYTES (AUTO) 0.9 10^3/uL (0.1-1.4); ABSOLUTE NEUT (AUTO) 15.2 10^3/uL (1.7-8.2); BASOPHILS % (AUTO) 0.6 % (0-2); HEMATOCRIT 35.5 % (37.9-51.0); LYMPHOCYTES % (AUTO) 7.9 % (13-45); MEAN CORPUSCULAR HGB CONC 30.9 g/dL (32.0-36.0); MEAN CORPUSCULAR VOLUME 75 fl (80-97); MONOCYTES % (AUTO) 5.2 % (3-13); PLATELET COUNT 393 10^3/uL (150-450); RED BLOOD COUNT 4.77 10^6/uL (4.35-5.55); RED CELL DISTRIBUTION WIDTH 21.9 % (11.5-14.0); SEGMENTED NEUTROPHILS % (AUTO) 86.3 % (42-78); TOTAL CELLS COUNTED % (AUTO) 100 %; WHITE BLOOD COUNT 17.6 10^3/uL (4.0-10.5)
[2017-11-20 18:44] LABS: BLOOD UREA NITROGEN 23 mg/dL (7-20); CALCIUM 9.1 mg/dL (8.4-10.2); POTASSIUM 3.8 mmol/L (3.6-5.0)
[2017-11-20 18:50] LABS: CARBON DIOXIDE 12 mmol/L (22-30); CHLORIDE 98 mmol/L (98-107); SODIUM 140.9 mmol/L (137-145)
[2017-11-20 18:57] LABS: ANION GAP 31 (5-19)
[2017-11-20 18:59] LABS: GLUCOSE 438 mg/dL (75-110)
[2017-11-20] MEDS: NORMAL SALINE INJ/PF 0.9% 10 ML SDV IV SCH (22:19)
--- NOTE | 2017-11-20 22:19 | EKG REPORT ---
SEVERITY:- ABNORMAL ECG - SINUS TACHYCARDIA PROBABLE LEFT ATRIAL ABNORMALITY PROBABLE INFEROLATERAL INFARCT, AGE INDETERM CONSIDER ANTERIOR INFARCT NONSPECIFIC T ABNORMALITIES, LATERAL LEADS : Confirmed by: Zakiya Francis 20-Nov-2017 22:18:32
[2017-11-20 22:48] LABS: BLOOD UREA NITROGEN 22 mg/dL (7-20); CALCIUM 9.2 mg/dL (8.4-10.2); CHLORIDE 106 mmol/L (98-107); GLUCOSE 179 mg/dL (75-110); SODIUM 144.1 mmol/L (137-145)
[2017-11-20 22:59] LABS: ANION GAP 13 (5-19)
[2017-11-20 23:00] LABS: CARBON DIOXIDE 25 mmol/L (22-30)
[2017-11-20] MEDS: DEXTROSE 5%-1/2 NORMAL SALINE 1,000 ML IV PRN (23:14)
[2017-11-20] MEDS ORDERED: POTASSI CL 20 MEQ/50 ML RIDER 20 MEQ/50 ML RTUPB IV ONE (23:23)
[2017-11-20] MEDS: POTASSIUM CHLORIDE 20 MEQ/50 ML RTU IV SCH (23:25)
[2017-11-20] MEDS ORDERED: INSULIN GLARGINE,HUM.REC.ANLOG 1,000 UNIT/10 ML UNIT SUBCUT ONE (23:30)
[2017-11-21] MEDS ORDERED: INSULIN GLARGINE,HUM.REC.ANLOG 1,000 UNIT/10 ML UNIT SUBCUT ONE (00:15)
[2017-11-21] MEDS: FENTANYL CITRATE INJ/PF 100 MCG/2 ML AMPUL IV PRN ×4 (01:01→18:13)
[2017-11-21] MEDS: METOCLOPRAMIDE HCL INJ/PF 10 MG/2 ML SDV IV PRN ×4 (01:04→19:16)
[2017-11-21] MEDS: METOPROLOL TARTRATE PF/INJ 5 MG/5 ML SDV IV PRN (01:06)
[2017-11-21] MEDS: POTASSIUM CHLORIDE 20 MEQ/50 ML RTU IV SCH (01:29)
[2017-11-21] MEDS ORDERED: ASPIRIN 325 MG TABLET PO ONE (01:30)
[2017-11-21] MEDS: LEVALBUTEROL HCL NEB 1.25 MG/3 ML AMPUL NEB SCH ×4 (01:32→19:40)
[2017-11-21] MEDS: NORMAL SALINE 100 ML with PANTOPRAZOLE SODIUM 80 MG IV PRN ×4 (01:40→15:03)
[2017-11-21] MEDS: DEXTROSE 5%-1/2 NORMAL SALINE 1,000 ML IV PRN (02:49)
[2017-11-21 03:08] LABS: ANION GAP 13 (5-19); BLOOD UREA NITROGEN 18 mg/dL (7-20); CALCIUM 8.1 mg/dL (8.4-10.2); CARBON DIOXIDE 22 mmol/L (22-30); CHLORIDE 102 mmol/L (98-107); GLUCOSE 216 mg/dL (75-110); POTASSIUM 3.3 mmol/L (3.6-5.0); SODIUM 137.2 mmol/L (137-145)
[2017-11-21 07:23] LABS: ABSOLUTE BASOPHILS # (AUTO) 0.1 10^3/uL (0.0-0.2); ABSOLUTE EOSINOPHILS # (AUTO) 0.1 10^3/uL (0.0-0.6); ABSOLUTE LYMPHOCYTES (AUTO) 1.8 10^3/uL (0.5-4.7); ABSOLUTE MONOCYTES (AUTO) 1.1 10^3/uL (0.1-1.4); ABSOLUTE NEUT (AUTO) 12.3 10^3/uL (1.7-8.2); ANION GAP 17 (5-19); BASOPHILS % (AUTO) 0.8 % (0-2); BLOOD UREA NITROGEN 16 mg/dL (7-20); CARBON DIOXIDE 18 mmol/L (22-30); CHLORIDE 99 mmol/L (98-107); EOSINOPHILS % (AUTO) 0.7 % (0-6); GLUCOSE 363 mg/dL (75-110); HEMOGLOBIN 9.1 g/dL (13.5-17.0); LYMPHOCYTES % (AUTO) 11.8 % (13-45); MEAN CORPUSCULAR HEMOGLOBIN 23.1 pg (27.0-33.4); MEAN CORPUSCULAR HGB CONC 31.5 g/dL (32.0-36.0); MEAN CORPUSCULAR VOLUME 73 fl (80-97); MONOCYTES % (AUTO) 7.2 % (3-13); PHOSPHORUS 3.3 mg/dL (2.5-4.5); PLATELET COUNT 302 10^3/uL (150-450); POTASSIUM 3.6 mmol/L (3.6-5.0); RED BLOOD COUNT 3.96 10^6/uL (4.35-5.55); RED CELL DISTRIBUTION WIDTH 22.3 % (11.5-14.0); SEGMENTED NEUTROPHILS % (AUTO) 79.5 % (42-78); SODIUM 134.1 mmol/L (137-145); TOTAL CELLS COUNTED % (AUTO) 100 %; TRIGLYCERIDES 135 mg/dL (<150); WHITE BLOOD COUNT 15.5 10^3/uL (4.0-10.5)
[2017-11-21 07:24] LABS: CHOLESTEROL 138.68 mg/dL (0-200)
[2017-11-21 07:34] LABS: DIRECT LDL 57 mg/dL (<100)
[2017-11-21] MEDS: INSULIN LISPRO 100 UNIT/ML 3 ML VIAL SUBCUT PRN ×4 (08:05→21:12)
[2017-11-21] MEDS: NORMAL SALINE INJ/PF 0.9% 10 ML SDV IV SCH ×2 (09:59→21:15)
[2017-11-21] MEDS ORDERED: METOPROLOL SUCCINATE 50 MG TAB.SR.24H PO SCH (10:00)
[2017-11-21] MEDS ORDERED: ASPIRIN 325 MG TABLET PO SCH (10:00)
--- NOTE | 2017-11-21 10:37 | EKG REPORT ---
SEVERITY:- ABNORMAL ECG - SINUS TACHYCARDIA VENTRICULAR PREMATURE COMPLEX PROBABLE LEFT ATRIAL ABNORMALITY PROBABLE INFERIOR INFARCT, AGE INDETERMINATE NONSPECIFIC T ABNORMALITIES, ANT-LAT LEADS : Confirmed by: Zakiya Francis 21-Nov-2017 10:36:00
[2017-11-21] MEDS: NICOTINE 21 MG/24 HR PATCH.TD24 TD SCH (14:03)
--- NOTE | 2017-11-21 14:44 | PDOC PROGRESS REPORT ---
Subjective Progress Note for:: 11/21/17 Subjective:: Patient had another episode of hematemesis today. He could not "wants something done about it but refuses to have his gown change, And has been rude to the nurses. He likely has a Annia-Horan tear He tried to eat breakfast this morning, was not able to tolerate it. Patient will need an EGD His anion gap has resolved with regards to his DKA He will not be able to tolerate conscious sedation he will need propofol sedation. Start him on a PPI drip N.p.o. for now Scheduled for upper endoscopy in the a.m. Reason For Visit: DKA,HEMATEMESIS,CHEST PAIN Physical Exam Vital Signs: Temp Pulse Resp BP Pulse Ox 98.8 F 110 H 16 130/90 H 100 11/21/17 12:36 11/21/17 12:36 11/21/17 12:36 11/21/17 12:36 11/21/17 12:36 Intake & Output 11/20/17 11/21/17 11/22/17 06:59 06:59 06:59 Intake Total 3708 900 Output Total 4750 2800 Balance -1042 -1900 Weight 95 kg General appearance: PRESENT: disheveled, well-developed, well-nourished Head exam: PRESENT: atraumatic, normocephalic Eye exam: PRESENT: EOMI, PERRLA. ABSENT: nystagmus, periorbital swelling, scleral icterus Mouth exam: PRESENT: moist, neck supple Throat exam: ABSENT: tonsillar exudate, tonsillogmegaly Neck exam: ABSENT: meningismus, tenderness, thyromegaly Respiratory exam: PRESENT: symmetrical, unlabored. ABSENT: tachypnea, wheezes Cardiovascular exam: PRESENT: RRR, +S1, +S2 GI/Abdominal exam: PRESENT: soft. ABSENT: rebound, rigid, tenderness Extremities exam: ABSENT: joint swelling Musculoskeletal exam: PRESENT: full ROM Neurological exam: PRESENT: oriented to time, oriented to situation, CN II-XII grossly intact Focused psych exam: ABSENT: restlessness Skin exam: PRESENT: normal color. ABSENT: mottled, pallor, urticaria, vesicles Results Laboratory Results: 11/21/17 06:45 11/21/17 06:45 11/20/17 11/20/17 11/20/17 14:11 18:00 18:00 WBC 17.6 H RBC 4.77 Hgb 11.0 L Hct 35.5 L MCV 75 L MCH 23.0 L MCHC 30.9 L RDW 21.9 H Plt Count 393 Seg Neutrophils % 86.3 H Lymphocytes % 7.9 L Monocytes % 5.2 Eosinophils % 0.0 Basophils % 0.6 Absolute Neutrophils 15.2 H Absolute Lymphocytes 1.4 Absolute Monocytes 0.9 Absolute Eosinophils 0.0 Absolute Basophils 0.1 Sodium 139.8 140.9 Potassium 3.7 3.8 Chloride 97 L 98 Carbon Dioxide 13 L 12 L Anion Gap 30 H 31 H BUN 19 23 H Creatinine 1.52 H 2.00 H Est GFR ( Amer) > 60 47 L Est GFR (Non-Af Amer) 53 L 39 L Glucose 434 H* 438 H* Lactic Acid Calcium 8.5 9.1 Phosphorus Magnesium Triglycerides Cholesterol LDL Cholesterol Direct VLDL Cholesterol HDL Cholesterol 11/20/17 11/20/17 11/20/17 22:00 22:00 22:00 WBC RBC Hgb Hct MCV MCH MCHC RDW Plt Count Seg Neutrophils % Lymphocytes % Monocytes % Eosinophils % Basophils % Absolute Neutrophils Absolute Lymphocytes Absolute Monocytes Absolute Eosinophils Absolute Basophils Sodium 144.1 Cancelled Potassium 3.0 L* Cancelled Chloride 106 Cancelled Carbon Dioxide 25 D Cancelled Anion Gap 13 Cancelled BUN 22 H Cancelled Creatinine 1.81 H Cancelled Est GFR ( Amer) 53 L Cancelled Est GFR (Non-Af Amer) 43 L Cancelled Glucose 179 H Cancelled Lactic Acid 1.2 Calcium 9.2 Cancelled Phosphorus Magnesium 2.2 Triglycerides Cholesterol LDL Cholesterol Direct VLDL Cholesterol HDL Cholesterol 11/21/17 11/21/17 11/21/17 02:39 06:45 06:45 WBC 15.5 H RBC 3.96 L Hgb 9.1 L Hct 29.0 L MCV 73 L MCH 23.1 L MCHC 31.5 L RDW 22.3 H Plt Count 302 Seg Neutrophils % 79.5 H Lymphocytes % 11.8 L Monocytes % 7.2 Eosinophils % 0.7 Basophils % 0.8 Absolute Neutrophils 12.3 H Absolute Lymphocytes 1.8 Absolute Monocytes 1.1 Absolute Eosinophils 0.1 Absolute Basophils 0.1 Sodium 137.2 134.1 L Potassium 3.3 L 3.6 Chloride 102 99 Carbon Dioxide 22 18 L Anion Gap 13 17 BUN 18 16 Creatinine 1.35 H 1.48 H Est GFR ( Amer) > 60 > 60 Est GFR (Non-Af Amer) > 60 55 L Glucose 216 H 363 H Lactic Acid Calcium 8.1 L 8.0 L Phosphorus 3.3 Magnesium 1.7 Triglycerides 135 Cholesterol 138.68 LDL Cholesterol Direct 57 VLDL Cholesterol 27.0 HDL Cholesterol 47 11/20/17 11/20/17 11/21/17 14:11 18:00 00:55 Troponin I < 0.012 0.014 0.037 11/21/17 06:45 Troponin I 0.037 Impressions: Guidance Fluoroscopy 11/20/17 00:00 IMPRESSION: SUCCESSFUL PLACEMENT OF A 5 FR DUAL LUMEN 43 CM PICC IN THE LEFT BASILIC VEIN. Interventional Vascular Procedure 11/20/17 00:00 IMPRESSION: SUCCESSFUL PLACEMENT OF A 5 FR DUAL LUMEN 43 CM PICC IN THE LEFT BASILIC VEIN. PICC Line Insertion 11/20/17 00:00 IMPRESSION: SUCCESSFUL PLACEMENT OF A 5 FR DUAL LUMEN 43 CM PICC IN THE LEFT BASILIC VEIN. Chest X-Ray 11/20/17 09:13 IMPRESSION: NO ACUTE DISEASE. Assessment & Plan - Diagnosis (1) DKA (diabetic ketoacidoses) Qualifiers: Diabetes mellitus type: type 1 Diabetes mellitus complication detail: without coma Qualified Code(s): E10.10 - Type 1 diabetes mellitus with ketoacidosis without coma (2) Nausea and vomiting Qualifiers: Vomiting type: unspecified Vomiting Intractability: non-intractable Qualified Code(s): R11.2 - Nausea with vomiting, unspecified Is this a current diagnosis for this admission?: Yes Plan: Related to his diabetes likely has gastroparesis Has had hematemesis We will get consent signed for upper endoscopy Differential includes possible gastric outlet obstruction versus peptic ulcer possibly due to Annia-Horan tear We will schedule EGD He will not be able to tolerate conscious sedation and therefore we will need propofol sedation. Further recommendations to follow. He will need to be on a PPI. (3) Chest pain Qualifiers: Chest pain type: unspecified Qualified Code(s): R07.9 - Chest pain, unspecified Is this a current diagnosis for this admission?: Yes
[2017-11-21 15:18] LABS: ABSOLUTE BASOPHILS # (AUTO) 0.2 10^3/uL (0.0-0.2); ABSOLUTE EOSINOPHILS # (AUTO) 0.1 10^3/uL (0.0-0.6); ABSOLUTE MONOCYTES (AUTO) 1.1 10^3/uL (0.1-1.4); ABSOLUTE NEUT (AUTO) 12.1 10^3/uL (1.7-8.2); EOSINOPHILS % (AUTO) 0.8 % (0-6); HEMATOCRIT 26.8 % (37.9-51.0); HEMOGLOBIN 8.4 g/dL (13.5-17.0); LYMPHOCYTES % (AUTO) 12.7 % (13-45); MEAN CORPUSCULAR HEMOGLOBIN 23.1 pg (27.0-33.4); MEAN CORPUSCULAR HGB CONC 31.2 g/dL (32.0-36.0); MEAN CORPUSCULAR VOLUME 74 fl (80-97); MONOCYTES % (AUTO) 7.2 % (3-13); PLATELET COUNT 301 10^3/uL (150-450); RED BLOOD COUNT 3.63 10^6/uL (4.35-5.55); RED CELL DISTRIBUTION WIDTH 22.2 % (11.5-14.0); SEGMENTED NEUTROPHILS % (AUTO) 78.3 % (42-78); TOTAL CELLS COUNTED % (AUTO) 100 %; WHITE BLOOD COUNT 15.5 10^3/uL (4.0-10.5)
[2017-11-21] MEDS ORDERED: HYDROMORPHONE HCL INJ/PF 2 MG/ML AMPULE IV PRN (21:48)
[2017-11-21] MEDS ORDERED: INSULIN GLARGINE,HUM.REC.ANLOG 300 UNIT/3 ML INSULN.PEN SUBCUT SCH ×2 (22:00)
[2017-11-21] MEDS: HYDROMORPHONE HCL 2 MG TABLET PO PRN (22:58)
[2017-11-21] MEDS: NORMAL SALINE 1000 ML 1,000 ML IV PRN (23:00)
[2017-11-22] MEDS: NORMAL SALINE 100 ML with PANTOPRAZOLE SODIUM 80 MG IV PRN ×6 (02:00→20:10)
[2017-11-22] MEDS: HYDROMORPHONE HCL 2 MG TABLET PO PRN ×2 (02:00→05:13)
[2017-11-22 06:08] LABS: ABSOLUTE BASOPHILS # (AUTO) 0.1 10^3/uL (0.0-0.2); ABSOLUTE EOSINOPHILS # (AUTO) 0.1 10^3/uL (0.0-0.6); ABSOLUTE LYMPHOCYTES (AUTO) 1.9 10^3/uL (0.5-4.7); ABSOLUTE MONOCYTES (AUTO) 0.9 10^3/uL (0.1-1.4); ABSOLUTE NEUT (AUTO) 9.5 10^3/uL (1.7-8.2); BASOPHILS % (AUTO) 0.4 % (0-2); EOSINOPHILS % (AUTO) 1.2 % (0-6); HEMATOCRIT 22.1 % (37.9-51.0); LYMPHOCYTES % (AUTO) 15.3 % (13-45); MEAN CORPUSCULAR HEMOGLOBIN 23.1 pg (27.0-33.4); MEAN CORPUSCULAR HGB CONC 31.4 g/dL (32.0-36.0); MEAN CORPUSCULAR VOLUME 73 fl (80-97); MONOCYTES % (AUTO) 7.4 % (3-13); PLATELET COUNT 284 10^3/uL (150-450); RED BLOOD COUNT 3.01 10^6/uL (4.35-5.55); RED CELL DISTRIBUTION WIDTH 22.4 % (11.5-14.0); SEGMENTED NEUTROPHILS % (AUTO) 75.7 % (42-78); TOTAL CELLS COUNTED % (AUTO) 100 %; WHITE BLOOD COUNT 12.5 10^3/uL (4.0-10.5)
[2017-11-22 06:17] LABS: ALANINE AMINOTRANSFERASE 28 U/L (21-72); ALBUMIN 2.5 g/dL (3.5-5.0); ALKALINE PHOSPHATASE 66 U/L (38-126); ANION GAP 13 (5-19); ASPARTATE AMINO TRANSFERASE 8 U/L (17-59); BILIRUBIN,DIRECT 0.1 mg/dL (0.0-0.4); BILIRUBIN,TOTAL 0.1 mg/dL (0.2-1.3); BLOOD UREA NITROGEN 24 mg/dL (7-20); CALCIUM 8.1 mg/dL (8.4-10.2); CARBON DIOXIDE 22 mmol/L (22-30); CHLORIDE 100 mmol/L (98-107); GLUCOSE 330 mg/dL (75-110); POTASSIUM 3.6 mmol/L (3.6-5.0); TOTAL PROTEIN 4.7 g/dL (6.3-8.2)
[2017-11-22 06:28] LABS: HEMOGLOBIN 6.9 g/dL (13.5-17.0)
[2017-11-22] MEDS: INSULIN LISPRO 100 UNIT/ML 3 ML VIAL SUBCUT PRN ×3 (07:05→18:22)
[2017-11-22] MEDS: LORAZEPAM INJ 2 MG/1 ML VIAL IV PRN (08:14)
[2017-11-22] MEDS ORDERED: NORMAL SALINE 250 ML IV PRN ×2 (08:19)
[2017-11-22] MEDS ORDERED: ACETAMINOPHEN 325 MG TABLET ONE (08:44)
[2017-11-22] MEDS ORDERED: LIDOCAINE 2% INJ-PF (20 MG/ML) 10 ML AMPUL ONE (09:31)
[2017-11-22] MEDS ORDERED: MIDAZOLAM 2 MG/2 ML INJ ONE (09:32)
[2017-11-22] MEDS ORDERED: PROPOFOL INJ 200 MG/20 ML VIAL IV ONE (09:32)
[2017-11-22] MEDS ORDERED: KETAMINE HCL INJ 500 MG/10 ML VIAL ONE (09:50)
[2017-11-22] MEDS ORDERED: MORPHINE SULFATE 10 MG/ML INJ IV PRN (10:13)
[2017-11-22] MEDS ORDERED: DIPHENHYDRAMINE HCL 50 MG/ML VIAL IV PRN (10:13)
[2017-11-22] MEDS ORDERED: PROMETHAZINE HCL INJ 25 MG/1 ML VIAL IV PRN ×3 (10:13→16:58)
[2017-11-22] MEDS ORDERED: OXYCODONE-ACETAMINOPHEN 5-325 MG TABLET PO PRN ×2 (10:13)
[2017-11-22] MEDS ORDERED: FENTANYL CITRATE INJ/PF 100 MCG/2 ML AMPUL IV PRN ×3 (10:13)
[2017-11-22] MEDS ORDERED: MEPERIDINE HCL/PF INJ 25 MG/1 ML DISP.SYRIN IV PRN (10:13)
[2017-11-22] MEDS ORDERED: LACTULOSE SYRUP 20 GM/30 ML UDCUP PO PRN (11:05)
[2017-11-22] MEDS: NORMAL SALINE INJ/PF 0.9% 10 ML SDV IV SCH ×2 (11:18→22:16)
[2017-11-22] MEDS: METOPROLOL SUCCINATE 50 MG TAB.SR.24H PO SCH ×2 (11:40→22:23)
[2017-11-22] MEDS: OXYCODONE HCL IR 5 MG TABLET PO PRN ×2 (12:07→18:21)
--- NOTE | 2017-11-22 12:58 | Operative Report ---
Operative Report DATE OF SURGERY: 11/22/17 Operative Report: The risks benefits and alternatives of the procedure explained to the patient in detail and informed consent is obtained.A GIF Olympus video scope was inserted into the patient's mouth and hypopharynx, the esophagus is identified intubated and insufflated, the scope was then advanced through the esophagus stomach and duodenum, retroflexion maneuver is done, the esophagus stomach and first and second portions of the duodenum examined PREOPERATIVE DIAGNOSIS: Hematemesis POSTOPERATIVE DIAGNOSIS: Esophageal. Noted in the distal esophagus at the junction suggestive of a Annia-Horan tear. No specific site could be identified 2 cc of epi mixed in 1 this to 10,000 solution concentration injected in the area. Patient's heart rate remained stable. Hiatal hernia. Gastritis status post biopsy rule out Helicobacter pylori OPERATION: EGD with control of hemorrhage. EGD with biopsy SURGEON: PITA LYON ANESTHESIA: LMAC TISSUE REMOVED OR ALTERED: As noted above. COMPLICATIONS: None. ESTIMATED BLOOD LOSS: None. INTRAOPERATIVE FINDINGS: As noted above. PROCEDURE: Patient tolerated procedure well. No immediate postprocedure comp occasions are noted. Patient sent back to his room in good condition. Continue to monitor the situation. Clear liquids do not advance PPI drip [id number] Zofran as well as Phenergan We will continue to follow If replete may need transfer to a tertiary institution, there will be no GI coverage this weekend
[2017-11-22] MEDS: NICOTINE 21 MG/24 HR PATCH.TD24 TD SCH (15:50)
[2017-11-22] MEDS ORDERED: ONDANSETRON HCL INJ/PF 4 MG/2 ML SDV IV PRN (16:53)
[2017-11-22 17:28] LABS: ABSOLUTE EOSINOPHILS # (AUTO) 0.2 10^3/uL (0.0-0.6); ABSOLUTE MONOCYTES (AUTO) 1.1 10^3/uL (0.1-1.4); ABSOLUTE NEUT (AUTO) 6.2 10^3/uL (1.7-8.2); BASOPHILS % (AUTO) 0.4 % (0-2); EOSINOPHILS % (AUTO) 1.8 % (0-6); HEMATOCRIT 26.8 % (37.9-51.0); HEMOGLOBIN 8.9 g/dL (13.5-17.0); LYMPHOCYTES % (AUTO) 20.8 % (13-45); MEAN CORPUSCULAR HEMOGLOBIN 24.4 pg (27.0-33.4); MEAN CORPUSCULAR HGB CONC 33.1 g/dL (32.0-36.0); MEAN CORPUSCULAR VOLUME 74 fl (80-97); PLATELET COUNT 289 10^3/uL (150-450); RED BLOOD COUNT 3.64 10^6/uL (4.35-5.55); TOTAL CELLS COUNTED % (AUTO) 100 %; WHITE BLOOD COUNT 9.6 10^3/uL (4.0-10.5)
--- NOTE | 2017-11-22 17:44 | PDOC PROGRESS REPORT ---
Subjective Progress Note for:: 11/21/17 Subjective:: Patient came in with DKA and hematemesis. Patient still having bloody vomitus. Patient insisting on pain medication. Still complaining of chest pain. Reason For Visit: DKA,HEMATEMESIS,CHEST PAIN Physical Exam Vital Signs: Temp Pulse Resp BP Pulse Ox 99.0 F 113 H 20 146/77 H 100 11/21/17 21:02 11/21/17 21:02 11/21/17 21:02 11/21/17 21:02 11/21/17 21:02 Intake & Output 11/20/17 11/21/17 11/22/17 06:59 06:59 06:59 Intake Total 3708 1015 Output Total 4750 2800 Balance -1042 -1785 Weight 95 kg General appearance: PRESENT: no acute distress, well-developed, well-nourished Head exam: PRESENT: atraumatic, normocephalic Eye exam: PRESENT: EOMI. ABSENT: scleral icterus Ear exam: PRESENT: normal external ear exam Mouth exam: PRESENT: moist Neck exam: ABSENT: carotid bruit, JVD, lymphadenopathy, thyromegaly Respiratory exam: PRESENT: clear to auscultation juan ramon. ABSENT: rales, rhonchi, wheezes Cardiovascular exam: PRESENT: RRR. ABSENT: diastolic murmur, rubs, systolic murmur GI/Abdominal exam: PRESENT: normal bowel sounds, soft. ABSENT: distended, guarding, mass, organolmegaly, rebound, tenderness Rectal exam: PRESENT: deferred Extremities exam: PRESENT: full ROM. ABSENT: calf tenderness, clubbing, pedal edema Neurological exam: PRESENT: alert, awake, oriented to person, oriented to place , oriented to time, oriented to situation, CN II-XII grossly intact. ABSENT: motor sensory deficit Psychiatric exam: PRESENT: appropriate affect, normal mood. ABSENT: homicidal ideation, suicidal ideation Skin exam: PRESENT: dry, intact, warm. ABSENT: cyanosis, rash Results Laboratory Results: 11/21/17 14:55 11/21/17 06:45 11/20/17 11/21/17 11/21/17 22:00 02:39 06:45 WBC 15.5 H RBC 3.96 L Hgb 9.1 L Hct 29.0 L MCV 73 L MCH 23.1 L MCHC 31.5 L RDW 22.3 H Plt Count 302 Seg Neutrophils % 79.5 H Lymphocytes % 11.8 L Monocytes % 7.2 Eosinophils % 0.7 Basophils % 0.8 Absolute Neutrophils 12.3 H Absolute Lymphocytes 1.8 Absolute Monocytes 1.1 Absolute Eosinophils 0.1 Absolute Basophils 0.1 Sodium Cancelled 137.2 Potassium Cancelled 3.3 L Chloride Cancelled 102 Carbon Dioxide Cancelled 22 Anion Gap Cancelled 13 BUN Cancelled 18 Creatinine Cancelled 1.35 H Est GFR ( Amer) Cancelled > 60 Est GFR (Non-Af Amer) Cancelled > 60 Glucose Cancelled 216 H Calcium Cancelled 8.1 L Phosphorus Magnesium 2.2 Triglycerides Cholesterol LDL Cholesterol Direct VLDL Cholesterol HDL Cholesterol 11/21/17 11/21/17 06:45 14:55 WBC 15.5 H RBC 3.63 L Hgb 8.4 L Hct 26.8 L MCV 74 L MCH 23.1 L MCHC 31.2 L RDW 22.2 H Plt Count 301 Seg Neutrophils % 78.3 H Lymphocytes % 12.7 L Monocytes % 7.2 Eosinophils % 0.8 Basophils % 1.0 Absolute Neutrophils 12.1 H Absolute Lymphocytes 2.0 Absolute Monocytes 1.1 Absolute Eosinophils 0.1 Absolute Basophils 0.2 Sodium 134.1 L Potassium 3.6 Chloride 99 Carbon Dioxide 18 L Anion Gap 17 BUN 16 Creatinine 1.48 H Est GFR ( Amer) > 60 Est GFR (Non-Af Amer) 55 L Glucose 363 H Calcium 8.0 L Phosphorus 3.3 Magnesium 1.7 Triglycerides 135 Cholesterol 138.68 LDL Cholesterol Direct 57 VLDL Cholesterol 27.0 HDL Cholesterol 47 11/20/17 11/20/17 11/21/17 14:11 18:00 00:55 Troponin I < 0.012 0.014 0.037 11/21/17 11/21/17 06:45 14:55 Troponin I 0.037 0.019 Impressions: Guidance Fluoroscopy 11/20/17 00:00 IMPRESSION: SUCCESSFUL PLACEMENT OF A 5 FR DUAL LUMEN 43 CM PICC IN THE LEFT BASILIC VEIN. Interventional Vascular Procedure 11/20/17 00:00 IMPRESSION: SUCCESSFUL PLACEMENT OF A 5 FR DUAL LUMEN 43 CM PICC IN THE LEFT BASILIC VEIN. PICC Line Insertion 11/20/17 00:00 IMPRESSION: SUCCESSFUL PLACEMENT OF A 5 FR DUAL LUMEN 43 CM PICC IN THE LEFT BASILIC VEIN. Chest X-Ray 11/20/17 09:13 IMPRESSION: NO ACUTE DISEASE. Assessment & Plan - Diagnosis (1) Hyperglycemia due to type 1 diabetes mellitus Is this a current diagnosis for this admission?: Yes Plan: DKA now resolved. Patient on subcutaneous insulin. Still unsure of patient home doses of medication. Patient is not cooperative or telling us what he takes. Patient has a history of non-adherence. (2) Hematemesis/vomiting blood Is this a current diagnosis for this admission?: Yes Plan: Patient still vomiting blood. Most likely due to Annia-Horan tear. Patient has had problem with bleeding in the past. Patient had a scope last year. Continue Protonix drip. Hemoglobin trending down. (3) ARF (acute renal failure) Is this a current diagnosis for this admission?: Yes Plan: Likely secondary to dehydration. Creatinine is 1.97. Patient creatinine on 11/19 was 1.13. Creatinine trending down. Will continue NS. (4) Polysubstance abuse Is this a current diagnosis for this admission?: Yes Plan: UDS positive for cocaine, benzos and barbiturates. Continue PRN ativan for signs of withdrawal. Counseled patient on smoking cessation and place patient on nicotine patch. (5) Chest pain Qualifiers: Chest pain type: unspecified Qualified Code(s): R07.9 - Chest pain, unspecified Is this a current diagnosis for this admission?: Yes Plan: With atypical chest pain most likely secondary to vomiting. Patient initial troponin is negative. Continue metoprolol. No aspirin do to hematemesis. (6) Nausea and vomiting Qualifiers: Vomiting type: unspecified Vomiting Intractability: non-intractable Qualified Code(s): R11.2 - Nausea with vomiting, unspecified Is this a current diagnosis for this admission?: Yes Plan: Nausea vomiting most likely due to elevated blood glucose and possible gastroparesis. Continue as needed antiemetics. (7) Hypertension Qualifiers: Hypertension type: essential hypertension Qualified Code(s): I10 - Essential (primary) hypertension Is this a current diagnosis for this admission?: Yes Plan: Patient on metoprolol. Will start patient on IV metoprolol as needed for systolic blood pressure greater than 160. (8) Leukocytosis Is this a current diagnosis for this admission?: Yes Plan: This most likely reactive or possibly due to dehydration resulting hemoconcentration. Resolved with IV fluids. - Time Time Spent with patient: Less than 15 minutes Anticipated discharge: Home Within: within 72 hours - Inpatient Certification Medical Necessity: Other - Patient still vomiting blood. Patient needs further evaluation. Patient awaiting EGD.
[2017-11-22 17:57] LABS: TOXIC GRANULATION SLIGHT
[2017-11-22 17:58] LABS: HYPOCHROMASIA SLIGHT
[2017-11-22 17:59] LABS: ANISOCYTOSIS 2+; PLATELET COMMENT ADEQUATE; PLATELET LARGE PRESENT; POIKILOCYTOSIS 1+
[2017-11-22] MEDS ORDERED: INSULIN GLARGINE,HUM.REC.ANLOG 1,000 UNIT/10 ML UNIT SUBCUT SCH (18:00)
--- NOTE | 2017-11-22 18:17 | PDOC PROGRESS REPORT ---
Subjective Progress Note for:: 11/22/17 Subjective:: Patient came in with DKA and hematemesis. Patient wanting to eat despite being n.p.o. for his EGD. Patient insisting on getting more pain medication. Patient agreed to blood transfusion and now is threatening to leave AGAINST MEDICAL ADVICE. Patient agreed to stay to have the EGD done. Reason For Visit: DKA,HEMATEMESIS,CHEST PAIN Physical Exam Vital Signs: Temp Pulse Resp BP Pulse Ox 98.3 F 108 H 18 148/99 H 98 11/22/17 15:02 11/22/17 15:02 11/22/17 15:02 11/22/17 15:02 11/22/17 15:02 Intake & Output 11/21/17 11/22/17 11/23/17 06:59 06:59 06:59 Intake Total 3708 4516 1050 Output Total 4750 5250 0 Balance -1042 -734 1050 Weight 95 kg 94.6 kg General appearance: PRESENT: no acute distress, well-developed Head exam: PRESENT: normocephalic Eye exam: PRESENT: EOMI. ABSENT: scleral icterus Mouth exam: PRESENT: moist Neck exam: ABSENT: carotid bruit, JVD, lymphadenopathy, thyromegaly Respiratory exam: PRESENT: clear to auscultation juan ramon. ABSENT: rales, rhonchi, wheezes Cardiovascular exam: PRESENT: tachycardia. ABSENT: diastolic murmur, rubs, systolic murmur GI/Abdominal exam: PRESENT: normal bowel sounds, soft. ABSENT: distended, guarding, mass, organolmegaly, rebound, tenderness Rectal exam: PRESENT: deferred Extremities exam: PRESENT: full ROM. ABSENT: calf tenderness, clubbing, pedal edema Neurological exam: PRESENT: alert, awake, oriented to person, oriented to place , oriented to time, oriented to situation, CN II-XII grossly intact. ABSENT: motor sensory deficit Psychiatric exam: PRESENT: appropriate affect, normal mood. ABSENT: homicidal ideation, suicidal ideation Skin exam: PRESENT: dry, intact, warm. ABSENT: cyanosis, rash Results Laboratory Results: 11/22/17 05:07 11/22/17 11/22/17 05:07 05:07 WBC 12.5 H RBC 3.01 L Hgb 6.9 L Hct 22.1 L MCV 73 L MCH 23.1 L MCHC 31.4 L RDW 22.4 H Plt Count 284 Seg Neutrophils % 75.7 Lymphocytes % 15.3 Monocytes % 7.4 Eosinophils % 1.2 Basophils % 0.4 Absolute Neutrophils 9.5 H Absolute Lymphocytes 1.9 Absolute Monocytes 0.9 Absolute Eosinophils 0.1 Absolute Basophils 0.1 Sodium 135.0 L Potassium 3.6 Chloride 100 Carbon Dioxide 22 Anion Gap 13 BUN 24 H Creatinine 1.32 H Est GFR ( Amer) > 60 Est GFR (Non-Af Amer) > 60 Glucose 330 H Calcium 8.1 L Magnesium 1.7 Total Bilirubin 0.1 L AST 8 L ALT 28 Alkaline Phosphatase 66 Total Protein 4.7 L Albumin 2.5 L 11/20/17 11/20/17 11/21/17 14:11 18:00 00:55 Troponin I < 0.012 0.014 0.037 11/21/17 11/21/17 06:45 14:55 Troponin I 0.037 0.019 Impressions: Guidance Fluoroscopy 11/20/17 00:00 IMPRESSION: SUCCESSFUL PLACEMENT OF A 5 FR DUAL LUMEN 43 CM PICC IN THE LEFT BASILIC VEIN. Interventional Vascular Procedure 11/20/17 00:00 IMPRESSION: SUCCESSFUL PLACEMENT OF A 5 FR DUAL LUMEN 43 CM PICC IN THE LEFT BASILIC VEIN. PICC Line Insertion 11/20/17 00:00 IMPRESSION: SUCCESSFUL PLACEMENT OF A 5 FR DUAL LUMEN 43 CM PICC IN THE LEFT BASILIC VEIN. Chest X-Ray 11/20/17 09:13 IMPRESSION: NO ACUTE DISEASE. Assessment & Plan - Diagnosis (1) Hyperglycemia due to type 1 diabetes mellitus Is this a current diagnosis for this admission?: Yes Plan: DKA now resolved. Patient on subcutaneous insulin. Still unsure of patient home doses of medication. Patient is not cooperative or telling us what he takes. Patient was able to provide us with his home regimen of insulin. Patient restarted on his home regimen. (2) Hematemesis/vomiting blood Is this a current diagnosis for this admission?: Yes Plan: Patient still vomiting blood. Most likely due to Annia-Horan tear. Patient is status post EGD. Patient had a large Annia Horan tear treated with epinephrine. Patient still on Protonix drip. Patient on clear liquid diet. (3) Acute blood loss anemia Is this a current diagnosis for this admission?: Yes Plan: Secondary to Annia-Horan tear. Patient hemoglobin has trended all the way down from 11.9-6.9. Patient was transfused 2 units of packed RBCs. Will continue to monitor hemoglobin. (4) ARF (acute renal failure) Is this a current diagnosis for this admission?: Yes Plan: Likely secondary to dehydration. Creatinine is 1.97. Patient creatinine on 11/19 was 1.13. Creatinine now 1.32. Will continue NS and monitor renal function. (5) Dehydration Is this a current diagnosis for this admission?: Yes Plan: Dehydration secondary to DKA. Patient still may be dehydrated as he continues to be tachycardic although not as tachycardic as he was before. Will continue fluid resuscitation with normal saline. (6) Polysubstance abuse Is this a current diagnosis for this admission?: Yes Plan: UDS positive for cocaine, benzos and barbiturates. Continue PRN ativan for signs of withdrawal. Counseled patient on smoking cessation and place patient on nicotine patch. (7) Chest pain Qualifiers: Chest pain type: unspecified Qualified Code(s): R07.9 - Chest pain, unspecified Is this a current diagnosis for this admission?: Yes Plan: With atypical chest pain most likely secondary to vomiting. Patient initial troponin is negative. Continue metoprolol. No aspirin do to hematemesis. (8) Nausea and vomiting Qualifiers: Vomiting type: unspecified Vomiting Intractability: non-intractable Qualified Code(s): R11.2 - Nausea with vomiting, unspecified Is this a current diagnosis for this admission?: Yes Plan: Nausea vomiting most likely due to elevated blood glucose and possible gastroparesis. Continue as needed antiemetics. (9) Hypertension Qualifiers: Hypertension type: essential hypertension Qualified Code(s): I10 - Essential (primary) hypertension Is this a current diagnosis for this admission?: Yes Plan: Patient on metoprolol. Will start patient on IV metoprolol as needed for systolic blood pressure greater than 160. When renal function stabilizes can consider starting patient on ACEI and ARB. (10) Leukocytosis Is this a current diagnosis for this admission?: Yes Plan: This most likely reactive or possibly due to dehydration resulting hemoconcentration. Resolved with IV fluids. - Time Time Spent with patient: Less than 15 minutes Anticipated discharge: Home Within: within 48 hours - Inpatient Certification Medical Necessity: Need For IV Fluids - Patient is to be monitored for stabilization of hemoglobin., Other
[2017-11-22] MEDS: INSULIN GLARGINE,HUM.REC.ANLOG 300 UNIT/3 ML INSULN.PEN SUBCUT SCH (22:16)
[2017-11-22] MEDS: INSULIN LISPRO 100 UNIT/ML 3 ML VIAL SUBCUT SCH (22:16)
[2017-11-22] MEDS: TRAZODONE HCL 50 MG TABLET PO SCH (22:23)
[2017-11-22] MEDS: QUETIAPINE FUMARATE 100 MG TABLET PO SCH (22:23)
[2017-11-23] MEDS: OXYCODONE HCL IR 5 MG TABLET PO PRN ×4 (00:23→20:54)
[2017-11-23 05:56] LABS: ABSOLUTE BASOPHILS # (AUTO) 0.1 10^3/uL (0.0-0.2); ABSOLUTE EOSINOPHILS # (AUTO) 0.1 10^3/uL (0.0-0.6); ABSOLUTE LYMPHOCYTES (AUTO) 2.6 10^3/uL (0.5-4.7); ABSOLUTE MONOCYTES (AUTO) 0.9 10^3/uL (0.1-1.4); ABSOLUTE NEUT (AUTO) 3.9 10^3/uL (1.7-8.2); BASOPHILS % (AUTO) 0.9 % (0-2); HEMATOCRIT 26.4 % (37.9-51.0); HEMOGLOBIN 8.6 g/dL (13.5-17.0); LYMPHOCYTES % (AUTO) 34.4 % (13-45); MEAN CORPUSCULAR HEMOGLOBIN 24.4 pg (27.0-33.4); MEAN CORPUSCULAR HGB CONC 32.7 g/dL (32.0-36.0); MEAN CORPUSCULAR VOLUME 75 fl (80-97); MONOCYTES % (AUTO) 11.5 % (3-13); PLATELET COUNT 287 10^3/uL (150-450); RED BLOOD COUNT 3.53 10^6/uL (4.35-5.55); RED CELL DISTRIBUTION WIDTH 21.3 % (11.5-14.0); SEGMENTED NEUTROPHILS % (AUTO) 51.2 % (42-78); TOTAL CELLS COUNTED % (AUTO) 100 %; WHITE BLOOD COUNT 7.5 10^3/uL (4.0-10.5)
[2017-11-23 06:02] LABS: ANION GAP 10 (5-19); BLOOD UREA NITROGEN 13 mg/dL (7-20); CALCIUM 8.3 mg/dL (8.4-10.2); CARBON DIOXIDE 26 mmol/L (22-30); CHLORIDE 98 mmol/L (98-107); GLUCOSE 311 mg/dL (75-110); POTASSIUM 3.3 mmol/L (3.6-5.0); SODIUM 134.2 mmol/L (137-145)
[2017-11-23] MEDS: INSULIN LISPRO 100 UNIT/ML 3 ML VIAL SUBCUT PRN ×3 (08:33→23:15)
[2017-11-23] MEDS: NORMAL SALINE 100 ML with PANTOPRAZOLE SODIUM 80 MG IV PRN ×2 (08:33)
[2017-11-23] MEDS: INSULIN LISPRO 100 UNIT/ML 3 ML VIAL SUBCUT SCH ×3 (08:33→18:12)
[2017-11-23] MEDS: METOPROLOL SUCCINATE 50 MG TAB.SR.24H PO SCH ×2 (09:52→22:20)
[2017-11-23] MEDS: NORMAL SALINE INJ/PF 0.9% 10 ML SDV IV SCH ×2 (09:52→22:20)
[2017-11-23] MEDS: INSULIN GLARGINE,HUM.REC.ANLOG 300 UNIT/3 ML INSULN.PEN SUBCUT SCH ×2 (09:52→22:21)
[2017-11-23] MEDS: NORMAL SALINE 1000 ML 1,000 ML IV PRN ×2 (10:56→20:54)
[2017-11-23] MEDS: NICOTINE 21 MG/24 HR PATCH.TD24 TD SCH (14:33)
[2017-11-23] MEDS: POTASSI CL 20 MEQ/50 ML RIDER 20 MEQ/50 ML RTUPB IV SCH ×2 (15:33→17:50)
[2017-11-23] MEDS: LORAZEPAM INJ 2 MG/1 ML VIAL IV PRN (18:00)
--- NOTE | 2017-11-23 18:11 | PDOC PROGRESS REPORT ---
Subjective Progress Note for:: 11/23/17 Subjective:: Patient has not had any hematemesis today. He is feeling a little bit better. His appetite is improving. Chest pain is improving. He is not speaking very much but he does tell me that he is overall feeling better and he is satisfied with his care today. Reason For Visit: DKA,HEMATEMESIS,CHEST PAIN Physical Exam Vital Signs: Temp Pulse Resp BP Pulse Ox 98.9 F 102 H 18 124/72 100 11/23/17 11:32 11/23/17 14:00 11/23/17 11:32 11/23/17 11:32 11/23/17 11:32 Intake & Output 11/22/17 11/23/17 11/24/17 06:59 06:59 07:59 Intake Total 4516 4561 463 Output Total 5250 1800 1000 Balance -734 2761 -537 Weight 94.6 kg 94.2 kg General appearance: PRESENT: no acute distress, cooperative Head exam: PRESENT: atraumatic, normocephalic Eye exam: PRESENT: conjunctiva pink Ear exam: PRESENT: normal external ear exam Mouth exam: PRESENT: moist Respiratory exam: PRESENT: clear to auscultation juan ramon, unlabored. ABSENT: rales , rhonchi, wheezes Cardiovascular exam: PRESENT: RRR. ABSENT: systolic murmur GI/Abdominal exam: PRESENT: normal bowel sounds, soft. ABSENT: distended, tenderness Rectal exam: PRESENT: deferred Neurological exam: PRESENT: alert, awake, oriented to person, oriented to place , oriented to situation, CN II-XII grossly intact Psychiatric exam: PRESENT: flat affect. ABSENT: anxious Skin exam: PRESENT: dry, warm Results Laboratory Results: 11/23/17 05:15 11/23/17 05:15 11/23/17 11/23/17 05:15 05:15 WBC 7.5 RBC 3.53 L Hgb 8.6 L Hct 26.4 L MCV 75 L MCH 24.4 L MCHC 32.7 RDW 21.3 H Plt Count 287 Seg Neutrophils % 51.2 Lymphocytes % 34.4 Monocytes % 11.5 Eosinophils % 2.0 Basophils % 0.9 Absolute Neutrophils 3.9 Absolute Lymphocytes 2.6 Absolute Monocytes 0.9 Absolute Eosinophils 0.1 Absolute Basophils 0.1 Sodium 134.2 L Potassium 3.3 L Chloride 98 Carbon Dioxide 26 Anion Gap 10 BUN 13 Creatinine 1.43 H Est GFR ( Amer) > 60 Est GFR (Non-Af Amer) 57 L Glucose 311 H Calcium 8.3 L Magnesium 1.7 11/20/17 11/20/17 11/21/17 14:11 18:00 00:55 Troponin I < 0.012 0.014 0.037 11/21/17 11/21/17 06:45 14:55 Troponin I 0.037 0.019 Impressions: Guidance Fluoroscopy 11/20/17 00:00 IMPRESSION: SUCCESSFUL PLACEMENT OF A 5 FR DUAL LUMEN 43 CM PICC IN THE LEFT BASILIC VEIN. Interventional Vascular Procedure 11/20/17 00:00 IMPRESSION: SUCCESSFUL PLACEMENT OF A 5 FR DUAL LUMEN 43 CM PICC IN THE LEFT BASILIC VEIN. PICC Line Insertion 11/20/17 00:00 IMPRESSION: SUCCESSFUL PLACEMENT OF A 5 FR DUAL LUMEN 43 CM PICC IN THE LEFT BASILIC VEIN. Chest X-Ray 11/20/17 09:13 IMPRESSION: NO ACUTE DISEASE. Assessment & Plan - Diagnosis (1) Acute blood loss anemia Is this a current diagnosis for this admission?: Yes Plan: Secondary to Annia-Horan tear seen on EGD. Hemoglobin is being monitored and is stable now. No evidence of active bleed. (2) Dehydration Is this a current diagnosis for this admission?: Yes Plan: Patient is eating and drinking better now. His BUN is normal, his creatinine is still elevated though improved from admission. Wonder if he has an element of chronic kidney disease. We will continue fluid hydration while his appetite is not yet normal and monitor creatinine. Patient probably has chronic kidney disease related to uncontrolled diabetes. (3) Hematemesis/vomiting blood Is this a current diagnosis for this admission?: Yes Plan: EGD showed Annia-Horan tear. Patient remains on Protonix drip. Clear diet continue. I wonder if patient has an element of diabetic gastroparesis causing the vomiting initially. He will need gastric emptying study eventually. (4) Polysubstance abuse Is this a current diagnosis for this admission?: Yes Plan: Urine tox screen positive for barbiturate, cocaine, benzodiazepine. Patient states he does not use these drugs. He would benefit from psychiatric support. Will further explore this and see if he is amenable. (5) ARF (acute renal failure) Is this a current diagnosis for this admission?: Yes Plan: Possibly chronic kidney disease with initially a component of acute kidney injury with dehydration and DKA. We will continue fluid hydration while he is not eating and drinking well. Patient will need referral to primary care doctor to more closely follow his diabetes and complications related to that. (6) Chest pain Qualifiers: Chest pain type: unspecified Qualified Code(s): R07.9 - Chest pain, unspecified Is this a current diagnosis for this admission?: Yes Plan: Improving chest pain, possibly due to the Annia-Horan tear. Patient states he has had chest pain for the past several days however and he has a tox screen positive for cocaine. I am checking a set of cardiac enzymes. - Time Time Spent with patient: 15-24 minutes Medications reviewed and adjusted accordingly: Yes - Inpatient Certification Based on my medical assessment, after consideration of the patient's comorbidities, presenting symptoms, or acuity I expect that the services needed warrant INPATIENT care.: Yes I certify that my determination is in accordance with my understanding of Medicare's requirements for reasonable and necessary INPATIENT services [42 CFR 412.3e].: Yes Medical Necessity: Significant Comorbidiites Make Outpatient Treatment Too Risky , Need Close Monitoring Due to Risk of Patient Decompensation, Need For IV Fluids, Risk of Complication if Not Cared For in Hospital
[2017-11-23 19:30] LABS: CREATINE KINASE MB 0.45 ng/mL (<4.55); TROPONIN I < 0.012 ng/mL
[2017-11-23] MEDS: QUETIAPINE FUMARATE 100 MG TABLET PO SCH (22:20)
[2017-11-23] MEDS: TRAZODONE HCL 50 MG TABLET PO SCH (22:20)
[2017-11-24 06:33] LABS: HEMOGLOBIN 8.4 g/dL (13.5-17.0); MEAN CORPUSCULAR HEMOGLOBIN 24.1 pg (27.0-33.4); MEAN CORPUSCULAR HGB CONC 32.4 g/dL (32.0-36.0); MEAN CORPUSCULAR VOLUME 74 fl (80-97); PLATELET COUNT 363 10^3/uL (150-450); RED BLOOD COUNT 3.49 10^6/uL (4.35-5.55); RED CELL DISTRIBUTION WIDTH 21.3 % (11.5-14.0); WHITE BLOOD COUNT 6.7 10^3/uL (4.0-10.5)
[2017-11-24 07:00] LABS: ANION GAP 9 (5-19); BLOOD UREA NITROGEN 7 mg/dL (7-20); CALCIUM 8.6 mg/dL (8.4-10.2); CARBON DIOXIDE 30 mmol/L (22-30); CHLORIDE 102 mmol/L (98-107); GLUCOSE 149 mg/dL (75-110); SODIUM 140.6 mmol/L (137-145)
[2017-11-24] MEDS ORDERED: LANSOPRAZOLE 30 MG TAB.RAP.DR PO ONE (07:00)
[2017-11-24] MEDS: OXYCODONE HCL IR 5 MG TABLET PO PRN ×3 (07:49→21:53)
[2017-11-24] MEDS ORDERED: LANSOPRAZOLE 30 MG TAB.RAP.DR PO SCH (08:00)
[2017-11-24] MEDS: INSULIN LISPRO 100 UNIT/ML 3 ML VIAL SUBCUT PRN ×3 (08:40→22:59)
[2017-11-24] MEDS: INSULIN GLARGINE,HUM.REC.ANLOG 300 UNIT/3 ML INSULN.PEN SUBCUT SCH ×2 (09:31→22:59)
[2017-11-24] MEDS: METOPROLOL SUCCINATE 50 MG TAB.SR.24H PO SCH ×2 (09:31→22:59)
[2017-11-24] MEDS: NORMAL SALINE INJ/PF 0.9% 10 ML SDV IV SCH ×2 (09:31→21:53)
[2017-11-24] MEDS: POTASSI CL 20 MEQ/50 ML RIDER 20 MEQ/50 ML RTUPB IV SCH ×3 (12:11→17:18)
--- NOTE | 2017-11-24 12:23 | PDOC PROGRESS REPORT ---
Subjective Progress Note for:: 11/24/17 Subjective:: no further GI bleeding Hgb is stable poorly controlled DM , suspect non compliance as outpatient hypokalemia remains in hospital Reason For Visit: DKA,HEMATEMESIS,CHEST PAIN Physical Exam Vital Signs: Temp Pulse Resp BP Pulse Ox 98.1 F 97 16 151/77 H 100 11/24/17 07:43 11/24/17 07:43 11/24/17 07:43 11/24/17 07:43 11/24/17 07:43 Intake & Output 11/23/17 11/24/17 11/25/17 05:59 06:59 06:59 Intake Total Output Total Balance Weight General appearance: PRESENT: well-developed, well-nourished Head exam: PRESENT: atraumatic, normocephalic Eye exam: PRESENT: conjunctiva pink, PERRLA. ABSENT: scleral icterus Mouth exam: PRESENT: neck supple Throat exam: ABSENT: tonsillogmegaly Neck exam: ABSENT: carotid bruit, JVD Respiratory exam: PRESENT: clear to auscultation juan ramon, symmetrical. ABSENT: retraction, rhonchi Cardiovascular exam: PRESENT: RRR. ABSENT: clicks, gallop, rubs Pulses: ABSENT: normal carotid pulses GI/Abdominal exam: PRESENT: soft. ABSENT: rebound, rigid, tenderness Musculoskeletal exam: PRESENT: full ROM Neurological exam: PRESENT: alert, awake, CN II-XII grossly intact Psychiatric exam: PRESENT: agitated Skin exam: PRESENT: normal color. ABSENT: mottled, rash, urticaria, vesicles Results Laboratory Results: 11/24/17 06:15 11/24/17 06:15 11/24/17 11/24/17 06:15 06:15 WBC 6.7 RBC 3.49 L Hgb 8.4 L Hct 26.0 L MCV 74 L MCH 24.1 L MCHC 32.4 RDW 21.3 H Plt Count 363 Sodium 140.6 Potassium 3.0 L* Chloride 102 Carbon Dioxide 30 Anion Gap 9 BUN 7 Creatinine 1.48 H Est GFR ( Amer) > 60 Est GFR (Non-Af Amer) 55 L Glucose 149 H Calcium 8.6 11/20/17 11/20/17 11/21/17 14:11 18:00 00:55 Creatine Kinase CK-MB (CK-2) Troponin I < 0.012 0.014 0.037 11/21/17 11/21/17 11/23/17 06:45 14:55 18:30 Creatine Kinase CK-MB (CK-2) 0.45 Troponin I 0.037 0.019 < 0.012 11/23/17 18:30 Creatine Kinase 44 L CK-MB (CK-2) Troponin I Impressions: Guidance Fluoroscopy 11/20/17 00:00 IMPRESSION: SUCCESSFUL PLACEMENT OF A 5 FR DUAL LUMEN 43 CM PICC IN THE LEFT BASILIC VEIN. Interventional Vascular Procedure 11/20/17 00:00 IMPRESSION: SUCCESSFUL PLACEMENT OF A 5 FR DUAL LUMEN 43 CM PICC IN THE LEFT BASILIC VEIN. PICC Line Insertion 11/20/17 00:00 IMPRESSION: SUCCESSFUL PLACEMENT OF A 5 FR DUAL LUMEN 43 CM PICC IN THE LEFT BASILIC VEIN. Chest X-Ray 11/20/17 09:13 IMPRESSION: NO ACUTE DISEASE. Assessment & Plan - Diagnosis (1) DKA (diabetic ketoacidoses) Qualifiers: Diabetes mellitus type: type 1 Diabetes mellitus complication detail: without coma Qualified Code(s): E10.10 - Type 1 diabetes mellitus with ketoacidosis without coma (2) Nausea and vomiting Qualifiers: Vomiting type: unspecified Vomiting Intractability: non-intractable Qualified Code(s): R11.2 - Nausea with vomiting, unspecified Is this a current diagnosis for this admission?: Yes Plan: due to poorly controlled DM DKA is resolving now has hypokalemia no further GI bleeding biopsies are pending MW tear with injection of 1:10,000 dilution of epi at site of obvious clot continue PPI minimize nausea and vomiting soft diet (3) Chest pain Qualifiers: Chest pain type: unspecified Qualified Code(s): R07.9 - Chest pain, unspecified Is this a current diagnosis for this admission?: Yes
[2017-11-24] MEDS: NICOTINE 21 MG/24 HR PATCH.TD24 TD SCH (14:22)
--- NOTE | 2017-11-24 16:18 | PDOC PROGRESS REPORT ---
Subjective Progress Note for:: 11/24/17 Subjective:: No bleeding since procedure, no vomiting. Taking clears without difficulty but feels hungry. No new acute pain. No chest pain or SOB. Sleepgin a lot. Reason For Visit: DKA,HEMATEMESIS,CHEST PAIN Physical Exam Vital Signs: Temp Pulse Resp BP Pulse Ox 98.1 F 99 16 151/77 H 100 11/24/17 07:43 11/24/17 13:59 11/24/17 07:43 11/24/17 07:43 11/24/17 07:43 Intake & Output 11/23/17 11/24/17 11/25/17 05:59 06:59 06:59 Intake Total Output Total Balance Weight General appearance: PRESENT: no acute distress, cooperative Head exam: PRESENT: atraumatic, normocephalic Eye exam: PRESENT: conjunctiva pink Mouth exam: PRESENT: moist, tongue midline Respiratory exam: PRESENT: clear to auscultation juan ramon, unlabored. ABSENT: rales , rhonchi, wheezes Cardiovascular exam: PRESENT: RRR. ABSENT: systolic murmur GI/Abdominal exam: PRESENT: diminished bowel sounds, normal bowel sounds, soft. ABSENT: distended, guarding, tenderness Extremities exam: ABSENT: pedal edema Neurological exam: PRESENT: alert, awake, oriented to person, oriented to place , oriented to situation, CN II-XII grossly intact Psychiatric exam: PRESENT: flat affect. ABSENT: anxious Skin exam: PRESENT: dry, warm Results Laboratory Results: 11/24/17 06:15 11/24/17 06:15 11/24/17 11/24/17 06:15 06:15 WBC 6.7 RBC 3.49 L Hgb 8.4 L Hct 26.0 L MCV 74 L MCH 24.1 L MCHC 32.4 RDW 21.3 H Plt Count 363 Sodium 140.6 Potassium 3.0 L* Chloride 102 Carbon Dioxide 30 Anion Gap 9 BUN 7 Creatinine 1.48 H Est GFR ( Amer) > 60 Est GFR (Non-Af Amer) 55 L Glucose 149 H Calcium 8.6 11/20/17 11/20/17 11/21/17 14:11 18:00 00:55 Creatine Kinase CK-MB (CK-2) Troponin I < 0.012 0.014 0.037 11/21/17 11/21/1711/23/18 06:45 14:55 18:30 Creatine Kinase CK-MB (CK-2) 0.45 Troponin I 0.037 0.019 < 0.012 11/23/17 18:30 Creatine Kinase 44 L CK-MB (CK-2) Troponin I Impressions: Guidance Fluoroscopy 11/20/17 00:00 IMPRESSION: SUCCESSFUL PLACEMENT OF A 5 FR DUAL LUMEN 43 CM PICC IN THE LEFT BASILIC VEIN. Interventional Vascular Procedure 11/20/17 00:00 IMPRESSION: SUCCESSFUL PLACEMENT OF A 5 FR DUAL LUMEN 43 CM PICC IN THE LEFT BASILIC VEIN. PICC Line Insertion 11/20/17 00:00 IMPRESSION: SUCCESSFUL PLACEMENT OF A 5 FR DUAL LUMEN 43 CM PICC IN THE LEFT BASILIC VEIN. Chest X-Ray 11/20/17 09:13 IMPRESSION: NO ACUTE DISEASE. Assessment & Plan - Diagnosis (1) Acute blood loss anemia Is this a current diagnosis for this admission?: Yes Plan: Secondary to nausea and vomiting from diabetes which caused Annia-Horan tear. Has undergone EGD wit intervention. GI following. Hgb with a slow downward trend. No melena or hemetemesis. WIll folow closely. Will hold heparin flushes and use saline until Hgb stable. Hgb again tomorrow. (2) Dehydration Is this a current diagnosis for this admission?: Yes Plan: drinking plenty of fluids, good UOP, will recheck BMP in the am. (3) Hematemesis/vomiting blood Is this a current diagnosis for this admission?: Yes Plan: Continue to Annia-Horan tear. Please see gastroenterology note. Hematemesis has resolved. She has downward trending hemoglobin. We are following that. No evidence of active bleeding that we are monitoring closely. (4) Polysubstance abuse Is this a current diagnosis for this admission?: Yes Plan: We will try to assist patient with drug counseling/rehab/abstinence but he denies that he is using the substances that are in his tox screen so this will be a difficult task. (5) ARF (acute renal failure) Is this a current diagnosis for this admission?: Yes Plan: Been his poorly controlled diabetes I wonder if he has medical renal disease with a component of chronic kidney disease. Will follow renal function for now. Dehydration seems to be resolved. (6) Chest pain Qualifiers: Chest pain type: unspecified Qualified Code(s): R07.9 - Chest pain, unspecified Is this a current diagnosis for this admission?: Yes Plan: Troponin check was negative. Chest pain he states is chronic and about at his baseline. - Time Time Spent with patient: 25-34 minutes Medications reviewed and adjusted accordingly: Yes - Inpatient Certification Based on my medical assessment, after consideration of the patient's comorbidities, presenting symptoms, or acuity I expect that the services needed warrant INPATIENT care.: Yes I certify that my determination is in accordance with my understanding of Medicare's requirements for reasonable and necessary INPATIENT services [42 CFR 412.3e].: Yes Medical Necessity: Need Close Monitoring Due to Risk of Patient Decompensation, Risk of Complication if Not Cared For in Hospital
[2017-11-24 21:00] LABS: HEMATOCRIT 24.1 % (37.9-51.0); MEAN CORPUSCULAR HEMOGLOBIN 24.5 pg (27.0-33.4); MEAN CORPUSCULAR HGB CONC 32.9 g/dL (32.0-36.0); MEAN CORPUSCULAR VOLUME 74 fl (80-97); PLATELET COUNT 391 10^3/uL (150-450); RED BLOOD COUNT 3.24 10^6/uL (4.35-5.55); RED CELL DISTRIBUTION WIDTH 21.3 % (11.5-14.0); WHITE BLOOD COUNT 5.9 10^3/uL (4.0-10.5)
[2017-11-24 21:03] LABS: HEMOGLOBIN 7.9 g/dL (13.5-17.0)
[2017-11-24 21:05] LABS: ANION GAP 6 (5-19); BLOOD UREA NITROGEN 4 mg/dL (7-20); CALCIUM 8.4 mg/dL (8.4-10.2); CARBON DIOXIDE 31 mmol/L (22-30); CHLORIDE 101 mmol/L (98-107); GLUCOSE 245 mg/dL (75-110); POTASSIUM 3.3 mmol/L (3.6-5.0); SODIUM 137.9 mmol/L (137-145)
[2017-11-24] MEDS: QUETIAPINE FUMARATE 100 MG TABLET PO SCH (22:59)
[2017-11-24] MEDS: TRAZODONE HCL 50 MG TABLET PO SCH (22:59)
[2017-11-25] MEDS ORDERED: LANSOPRAZOLE 30 MG TAB.RAP.DR PO SCH (06:00)
[2017-11-25 06:42] LABS: ABSOLUTE EOSINOPHILS # (AUTO) 0.2 10^3/uL (0.0-0.6); ABSOLUTE LYMPHOCYTES (AUTO) 1.6 10^3/uL (0.5-4.7); ABSOLUTE MONOCYTES (AUTO) 0.7 10^3/uL (0.1-1.4); ABSOLUTE NEUT (AUTO) 2.8 10^3/uL (1.7-8.2); BASOPHILS % (AUTO) 0.8 % (0-2); EOSINOPHILS % (AUTO) 3.9 % (0-6); HEMATOCRIT 23.7 % (37.9-51.0); LYMPHOCYTES % (AUTO) 29.1 % (13-45); MEAN CORPUSCULAR HEMOGLOBIN 24.9 pg (27.0-33.4); MEAN CORPUSCULAR HGB CONC 33.1 g/dL (32.0-36.0); MEAN CORPUSCULAR VOLUME 75 fl (80-97); MONOCYTES % (AUTO) 13.8 % (3-13); PLATELET COUNT 372 10^3/uL (150-450); RED BLOOD COUNT 3.15 10^6/uL (4.35-5.55); RED CELL DISTRIBUTION WIDTH 21.7 % (11.5-14.0); SEGMENTED NEUTROPHILS % (AUTO) 52.4 % (42-78); TOTAL CELLS COUNTED % (AUTO) 100 %; WHITE BLOOD COUNT 5.4 10^3/uL (4.0-10.5)
[2017-11-25 06:44] LABS: HEMOGLOBIN 7.8 g/dL (13.5-17.0)
[2017-11-25 06:55] LABS: ALANINE AMINOTRANSFERASE 19 U/L (21-72); ALBUMIN 2.5 g/dL (3.5-5.0); ALKALINE PHOSPHATASE 56 U/L (38-126); ANION GAP 6 (5-19); ASPARTATE AMINO TRANSFERASE 13 U/L (17-59); BILIRUBIN,DIRECT 0.2 mg/dL (0.0-0.4); BILIRUBIN,TOTAL 0.2 mg/dL (0.2-1.3); BLOOD UREA NITROGEN 3 mg/dL (7-20); CALCIUM 8.3 mg/dL (8.4-10.2); CARBON DIOXIDE 31 mmol/L (22-30); CHLORIDE 104 mmol/L (98-107); GLUCOSE 74 mg/dL (75-110); TOTAL PROTEIN 4.9 g/dL (6.3-8.2)
[2017-11-25 07:06] LABS: POTASSIUM 2.8 mmol/L (3.6-5.0)
[2017-11-25] MEDS: POTASSI CL 20 MEQ/50 ML RIDER 20 MEQ/50 ML RTUPB IV SCH ×4 (08:17→15:47)
[2017-11-25] MEDS: OXYCODONE HCL IR 5 MG TABLET PO PRN ×2 (10:42→17:55)
[2017-11-25] MEDS: NORMAL SALINE INJ/PF 0.9% 10 ML SDV IV SCH ×2 (10:42→22:29)
[2017-11-25] MEDS: INSULIN GLARGINE,HUM.REC.ANLOG 300 UNIT/3 ML INSULN.PEN SUBCUT SCH ×2 (10:42→22:25)
[2017-11-25] MEDS: METOPROLOL SUCCINATE 50 MG TAB.SR.24H PO SCH ×2 (10:43→22:30)
[2017-11-25] MEDS ORDERED: DEXTROSE 40% GEL 15 GM TUBE PO PRN ×2 (11:19)
[2017-11-25] MEDS ORDERED: DEXTROSE 50%-WATER 25 GM/50 ML DISP.SYRIN IV PRN ×2 (11:19)
[2017-11-25] MEDS ORDERED: GLUCAGON,HUMAN RECOMB 1 MG INJ SUBCUT PRN (11:19)
[2017-11-25] MEDS ORDERED: PROMETHAZINE HCL INJ 25 MG/1 ML VIAL IV PRN (11:21)
[2017-11-25] MEDS: RINGERS SOLUTION,LACTATED 1,000 ML IV PRN ×2 (11:27→20:36)
[2017-11-25] MEDS ORDERED: NORMAL SALINE 1000 ML 1,000 ML IV ONE (12:00)
[2017-11-25] MEDS: NICOTINE 21 MG/24 HR PATCH.TD24 TD SCH (14:53)
[2017-11-25 15:04] LABS: HEMATOCRIT 23.3 % (37.9-51.0); MEAN CORPUSCULAR HEMOGLOBIN 24.4 pg (27.0-33.4); MEAN CORPUSCULAR HGB CONC 32.2 g/dL (32.0-36.0); MEAN CORPUSCULAR VOLUME 76 fl (80-97); PLATELET COUNT 382 10^3/uL (150-450); RED BLOOD COUNT 3.08 10^6/uL (4.35-5.55); RED CELL DISTRIBUTION WIDTH 20.9 % (11.5-14.0); WHITE BLOOD COUNT 5.1 10^3/uL (4.0-10.5)
[2017-11-25 15:06] LABS: HEMOGLOBIN 7.5 g/dL (13.5-17.0)
[2017-11-25 21:28] LABS: HEMATOCRIT 24.5 % (37.9-51.0); MEAN CORPUSCULAR HEMOGLOBIN 24.5 pg (27.0-33.4); MEAN CORPUSCULAR HGB CONC 32.4 g/dL (32.0-36.0); MEAN CORPUSCULAR VOLUME 76 fl (80-97); PLATELET COUNT 422 10^3/uL (150-450); RED BLOOD COUNT 3.24 10^6/uL (4.35-5.55); RED CELL DISTRIBUTION WIDTH 21.2 % (11.5-14.0); WHITE BLOOD COUNT 5.8 10^3/uL (4.0-10.5)
[2017-11-25 21:31] LABS: HEMOGLOBIN 7.9 g/dL (13.5-17.0)
--- NOTE | 2017-11-25 21:35 | PDOC PROGRESS REPORT ---
Subjective Progress Note for:: 11/25/17 Subjective:: Patient is feeling excessively sleepy. He is also having back shoulder head pain and he states this is his chronic pain. He is having nausea which is aided by the medications that he is using. He does not think that he is vomited in the last 24 hours. He has not seen black tarry stools. Reason For Visit: DKA,HEMATEMESIS,CHEST PAIN Physical Exam Vital Signs: Temp Pulse Resp BP Pulse Ox 98.1 F 93 16 147/93 H 100 11/25/17 16:02 11/25/17 16:02 11/25/17 16:02 11/25/17 16:02 11/25/17 16:02 Intake & Output 11/24/17 11/25/17 11/26/17 06:59 06:59 06:59 Intake Total 4464 2200 Output Total 7170 4200 Balance -3891 -9884 Weight 91.9 kg General appearance: PRESENT: cooperative, disheveled, mild distress Head exam: PRESENT: atraumatic, normocephalic Eye exam: PRESENT: conjunctiva pink Mouth exam: PRESENT: moist Respiratory exam: PRESENT: clear to auscultation juan ramon, unlabored. ABSENT: rales , rhonchi, wheezes Cardiovascular exam: PRESENT: tachycardia. ABSENT: systolic murmur GI/Abdominal exam: PRESENT: normal bowel sounds, soft. ABSENT: distended, guarding, tenderness Extremities exam: ABSENT: pedal edema Neurological exam: PRESENT: alert, awake, oriented to person, oriented to place , oriented to situation, CN II-XII grossly intact Psychiatric exam: PRESENT: flat affect Skin exam: PRESENT: dry, warm Results Laboratory Results: 11/25/17 06:10 11/25/17 11/25/17 11/25/17 06:10 06:10 14:49 WBC 5.4 5.1 RBC 3.15 L 3.08 L Hgb 7.8 L 7.5 L Hct 23.7 L 23.3 L MCV 75 L 76 L MCH 24.9 L 24.4 L MCHC 33.1 32.2 RDW 21.7 H 20.9 H Plt Count 372 382 Seg Neutrophils % 52.4 Lymphocytes % 29.1 Monocytes % 13.8 H Eosinophils % 3.9 Basophils % 0.8 Absolute Neutrophils 2.8 Absolute Lymphocytes 1.6 Absolute Monocytes 0.7 Absolute Eosinophils 0.2 Absolute Basophils 0.0 Sodium 141.0 Potassium 2.8 L* Chloride 104 Carbon Dioxide 31 H Anion Gap 6 BUN 3 L Creatinine 1.30 H Est GFR ( Amer) > 60 Est GFR (Non-Af Amer) > 60 Glucose 74 L Calcium 8.3 L Total Bilirubin 0.2 AST 13 L ALT 19 L Alkaline Phosphatase 56 Total Protein 4.9 L Albumin 2.5 L 11/20/17 11/20/17 11/21/17 14:11 18:00 00:55 Creatine Kinase CK-MB (CK-2) Troponin I < 0.012 0.014 0.037 11/21/17 11/21/17 11/23/17 06:45 14:55 18:30 Creatine Kinase CK-MB (CK-2) 0.45 Troponin I 0.037 0.019 < 0.012 11/23/17 18:30 Creatine Kinase 44 L CK-MB (CK-2) Troponin I Impressions: Guidance Fluoroscopy 11/20/17 00:00 IMPRESSION: SUCCESSFUL PLACEMENT OF A 5 FR DUAL LUMEN 43 CM PICC IN THE LEFT BASILIC VEIN. Interventional Vascular Procedure 11/20/17 00:00 IMPRESSION: SUCCESSFUL PLACEMENT OF A 5 FR DUAL LUMEN 43 CM PICC IN THE LEFT BASILIC VEIN. PICC Line Insertion 11/20/17 00:00 IMPRESSION: SUCCESSFUL PLACEMENT OF A 5 FR DUAL LUMEN 43 CM PICC IN THE LEFT BASILIC VEIN. Chest X-Ray 11/20/17 09:13 IMPRESSION: NO ACUTE DISEASE. Assessment & Plan - Diagnosis (1) Acute blood loss anemia Is this a current diagnosis for this admission?: Yes Plan: Secondary to a large Annia-Horan tear. He has been scoped. Brake Specialist noted a clot over the tear. He is at risk for rebleeding. Been transfused 2 units of packed red blood cells and his hemoglobin is trending down. He is still above 7. Blood pressure is now normal. He has been persistently tachycardic and I wonder if there is a rebleed. CBC is pending tonight. (2) Dehydration Is this a current diagnosis for this admission?: Yes Plan: Resolved. Patient is drinking a significant amount of clear liquids. He is making good urine. He is now back on IV fluids secondary to hypotension earlier today. (3) Hematemesis/vomiting blood Is this a current diagnosis for this admission?: Yes Plan: Patient had vomiting and nausea related to early DKA admission. He developed hematemesis and then was scoped. He had a large Annia-Horan tear which was found to have an overlying clot. Our senior research associate states that if there is a rebleed he will need to be transferred to a higher level of care. If there is evidence of rebleed pantoprazole drip should be started. The patient has Zofran and Phenergan to prevent nausea and vomiting to help prevent rebleed. If the patient starts to have vomiting he will need to be started on antiemetic medications [id number]. (4) Polysubstance abuse Is this a current diagnosis for this admission?: Yes Plan: Patient denies that he was using the substances that were in his urine tox screen. Substance abuse counseling will be complicated. (5) ARF (acute renal failure) Is this a current diagnosis for this admission?: Yes Plan: This has improved and I wonder if patient is at his renal function baseline. He probably has medical renal disease related to diabetes. (6) Chest pain Qualifiers: Chest pain type: unspecified Qualified Code(s): R07.9 - Chest pain, unspecified Is this a current diagnosis for this admission?: Yes Plan: States his chest pain is chronic. I checked a troponin several days ago and it was normal. His chest pain is unchanged. Here in the hospital he is using as needed opiates for the chest pain. (7) DKA (diabetic ketoacidoses) Qualifiers: Diabetes mellitus type: type 1 Diabetes mellitus complication detail: without coma Qualified Code(s): E10.10 - Type 1 diabetes mellitus with ketoacidosis without coma Plan: Patient was admitted with early DKA. This has resolved. He had some nausea and vomiting associated with this. He developed a Annia-Horan tear. Please see above. He is now on glargine and short acting insulin. - Time Time Spent with patient: 25-34 minutes - I collaborated with the senior research associate and the patient's nurse. - Inpatient Certification Based on my medical assessment, after consideration of the patient's comorbidities, presenting symptoms, or acuity I expect that the services needed warrant INPATIENT care.: Yes I certify that my determination is in accordance with my understanding of Medicare's requirements for reasonable and necessary INPATIENT services [42 CFR 412.3e].: Yes Medical Necessity: Need Close Monitoring Due to Risk of Patient Decompensation, Need For IV Fluids, Risk of Complication if Not Cared For in Hospital
[2017-11-25] MEDS: INSULIN LISPRO 100 UNIT/ML 3 ML VIAL SUBCUT PRN (22:25)
[2017-11-25] MEDS: QUETIAPINE FUMARATE 100 MG TABLET PO SCH (22:26)
[2017-11-25] MEDS: PANTOPRAZOLE SODIUM 40 MG VIAL IV SCH (22:26)
[2017-11-26] MEDS: OXYCODONE HCL IR 5 MG TABLET PO PRN ×4 (00:38→23:55)
[2017-11-26 07:16] LABS: HEMATOCRIT 26.4 % (37.9-51.0); HEMOGLOBIN 8.7 g/dL (13.5-17.0); MEAN CORPUSCULAR HEMOGLOBIN 24.7 pg (27.0-33.4); MEAN CORPUSCULAR HGB CONC 32.9 g/dL (32.0-36.0); MEAN CORPUSCULAR VOLUME 75 fl (80-97); PLATELET COUNT 463 10^3/uL (150-450); RED BLOOD COUNT 3.51 10^6/uL (4.35-5.55); RED CELL DISTRIBUTION WIDTH 21.3 % (11.5-14.0); WHITE BLOOD COUNT 6.3 10^3/uL (4.0-10.5)
[2017-11-26 07:34] LABS: ANION GAP 10 (5-19); BLOOD UREA NITROGEN 2 mg/dL (7-20); CALCIUM 8.8 mg/dL (8.4-10.2); CARBON DIOXIDE 29 mmol/L (22-30); CHLORIDE 102 mmol/L (98-107); GLUCOSE 67 mg/dL (75-110); POTASSIUM 3.4 mmol/L (3.6-5.0); SODIUM 141.1 mmol/L (137-145)
--- NOTE | 2017-11-26 09:01 | PDOC PROGRESS REPORT ---
Subjective Progress Note for:: 11/26/17 Subjective:: was called by hospitalist yesterday Hgb has come back up without transfusion patient has not had any hematemesis or melena since yesterday likely hgb trend may be due to fluid status patient still very non complaint patient wants to eat clears can be restarted no plans for repeat scope for now Reason For Visit: DKA,HEMATEMESIS,CHEST PAIN Physical Exam Vital Signs: Temp Pulse Resp BP Pulse Ox 98.2 F 95 16 95/55 L 98 11/26/17 07:44 11/26/17 07:44 11/26/17 07:44 11/26/17 07:44 11/26/17 07:44 Intake & Output 11/25/17 11/26/17 11/27/17 06:59 06:59 06:59 Intake Total 4464 3561 Output Total 7155 5809 Balance -6031 -7134 Weight 91.9 kg 93.6 kg General appearance: PRESENT: no acute distress, well-developed, well-nourished Head exam: PRESENT: atraumatic, normocephalic Eye exam: PRESENT: EOMI, PERRLA. ABSENT: nystagmus, periorbital swelling, scleral icterus Mouth exam: PRESENT: moist Throat exam: ABSENT: tonsillar exudate, tonsillogmegaly Neck exam: ABSENT: meningismus, tenderness, thyromegaly Respiratory exam: PRESENT: symmetrical, unlabored. ABSENT: tachypnea, wheezes Cardiovascular exam: PRESENT: +S1, +S2 GI/Abdominal exam: PRESENT: soft. ABSENT: rebound, rigid, tenderness Extremities exam: ABSENT: joint swelling Musculoskeletal exam: PRESENT: full ROM Neurological exam: PRESENT: oriented to time, reflexes normal, CN II-XII grossly intact Focused psych exam: PRESENT: restlessness Skin exam: PRESENT: normal color. ABSENT: mottled, urticaria, vesicles Results Laboratory Results: 11/26/17 06:25 11/26/17 06:25 11/25/17 11/25/17 11/26/17 14:49 21:15 06:25 WBC 5.1 5.8 RBC 3.08 L 3.24 L Hgb 7.5 L 7.9 L Hct 23.3 L 24.5 L MCV 76 L 76 L MCH 24.4 L 24.5 L MCHC 32.2 32.4 RDW 20.9 H 21.2 H Plt Count 382 422 Sodium 141.1 Potassium 3.4 L Chloride 102 Carbon Dioxide 29 Anion Gap 10 BUN 2 L Creatinine 1.32 H Est GFR ( Amer) > 60 Est GFR (Non-Af Amer) > 60 Glucose 67 L Calcium 8.8 11/26/17 06:25 WBC 6.3 RBC 3.51 L Hgb 8.7 L Hct 26.4 L MCV 75 L MCH 24.7 L MCHC 32.9 RDW 21.3 H Plt Count 463 H Sodium Potassium Chloride Carbon Dioxide Anion Gap BUN Creatinine Est GFR ( Amer) Est GFR (Non-Af Amer) Glucose Calcium 11/20/17 11/20/17 11/21/17 14:11 18:00 00:55 Creatine Kinase CK-MB (CK-2) Troponin I < 0.012 0.014 0.037 11/21/17 11/21/17 11/23/17 06:45 14:55 18:30 Creatine Kinase CK-MB (CK-2) 0.45 Troponin I 0.037 0.019 < 0.012 11/23/17 18:30 Creatine Kinase 44 L CK-MB (CK-2) Troponin I Impressions: Guidance Fluoroscopy 11/20/17 00:00 IMPRESSION: SUCCESSFUL PLACEMENT OF A 5 FR DUAL LUMEN 43 CM PICC IN THE LEFT BASILIC VEIN. Interventional Vascular Procedure 11/20/17 00:00 IMPRESSION: SUCCESSFUL PLACEMENT OF A 5 FR DUAL LUMEN 43 CM PICC IN THE LEFT BASILIC VEIN. PICC Line Insertion 11/20/17 00:00 IMPRESSION: SUCCESSFUL PLACEMENT OF A 5 FR DUAL LUMEN 43 CM PICC IN THE LEFT BASILIC VEIN. Chest X-Ray 11/20/17 09:13 IMPRESSION: NO ACUTE DISEASE. Assessment & Plan - Diagnosis (1) DKA (diabetic ketoacidoses) Qualifiers: Diabetes mellitus type: type 1 Diabetes mellitus complication detail: without coma Qualified Code(s): E10.10 - Type 1 diabetes mellitus with ketoacidosis without coma (2) Nausea and vomiting Qualifiers: Vomiting type: unspecified Vomiting Intractability: non-intractable Qualified Code(s): R11.2 - Nausea with vomiting, unspecified Is this a current diagnosis for this admission?: Yes (3) Chest pain Qualifiers: Chest pain type: unspecified Qualified Code(s): R07.9 - Chest pain, unspecified Is this a current diagnosis for this admission?: Yes Plan: MW tear had EGD with injection of Epi previously patient Hgb has trended up and down clinically no melena or hematemesis Hgb noted to have come back up again and there has no transfusion since yesterday will need PPI antiemetics as needed clears today
[2017-11-26] MEDS: METOPROLOL SUCCINATE 50 MG TAB.SR.24H PO SCH ×2 (10:08→21:50)
[2017-11-26] MEDS: PANTOPRAZOLE SODIUM 40 MG VIAL IV SCH ×2 (10:15→21:54)
[2017-11-26] MEDS: NORMAL SALINE INJ/PF 0.9% 10 ML SDV IV SCH ×2 (10:15→21:51)
[2017-11-26] MEDS: RINGERS SOLUTION,LACTATED 1,000 ML IV PRN (10:15)
[2017-11-26] MEDS: INSULIN GLARGINE,HUM.REC.ANLOG 300 UNIT/3 ML INSULN.PEN SUBCUT SCH ×2 (10:16→21:54)
[2017-11-26] MEDS: NICOTINE 21 MG/24 HR PATCH.TD24 TD SCH (14:44)
--- NOTE | 2017-11-26 14:53 | PDOC PROGRESS REPORT ---
Subjective Progress Note for:: 11/26/17 Subjective:: Admitted with nausea and vomiting, improved. Was NPO this am however this has been discontinued as no procedure planned Reason For Visit: DKA,HEMATEMESIS,CHEST PAIN Physical Exam Vital Signs: Temp Pulse Resp BP Pulse Ox 98.6 F 97 18 143/92 H 100 11/26/17 12:04 11/26/17 14:00 11/26/17 12:04 11/26/17 12:04 11/26/17 12:04 Intake & Output 11/25/17 11/26/17 11/27/17 06:59 06:59 06:59 Intake Total 4467 3561 Output Total 7143 3161 Balance -7159 -4495 Weight 91.9 kg 93.6 kg General appearance: PRESENT: no acute distress, cooperative, other - young, healthy looking Head exam: PRESENT: atraumatic Eye exam: PRESENT: conjunctiva pink, EOMI, PERRLA. ABSENT: scleral icterus Neck exam: ABSENT: carotid bruit, JVD, lymphadenopathy, thyromegaly Respiratory exam: PRESENT: clear to auscultation juan ramon. ABSENT: rales, rhonchi, wheezes Cardiovascular exam: PRESENT: RRR. ABSENT: diastolic murmur, rubs, systolic murmur GI/Abdominal exam: PRESENT: normal bowel sounds, soft. ABSENT: distended, guarding, mass, organolmegaly, rebound, tenderness Rectal exam: PRESENT: deferred Extremities exam: PRESENT: full ROM. ABSENT: calf tenderness, clubbing, pedal edema Musculoskeletal exam: PRESENT: ambulatory Neurological exam: PRESENT: alert, awake, oriented to person, oriented to place , oriented to time Psychiatric exam: PRESENT: appropriate affect, normal mood. ABSENT: homicidal ideation, suicidal ideation Skin exam: PRESENT: dry, intact, warm. ABSENT: cyanosis, rash Results Laboratory Results: 11/26/17 06:25 11/26/17 06:25 11/25/17 11/25/17 11/26/17 14:49 21:15 06:25 WBC 5.1 5.8 RBC 3.08 L 3.24 L Hgb 7.5 L 7.9 L Hct 23.3 L 24.5 L MCV 76 L 76 L MCH 24.4 L 24.5 L MCHC 32.2 32.4 RDW 20.9 H 21.2 H Plt Count 382 422 Sodium 141.1 Potassium 3.4 L Chloride 102 Carbon Dioxide 29 Anion Gap 10 BUN 2 L Creatinine 1.32 H Est GFR ( Amer) > 60 Est GFR (Non-Af Amer) > 60 Glucose 67 L Calcium 8.8 11/26/17 06:25 WBC 6.3 RBC 3.51 L Hgb 8.7 L Hct 26.4 L MCV 75 L MCH 24.7 L MCHC 32.9 RDW 21.3 H Plt Count 463 H Sodium Potassium Chloride Carbon Dioxide Anion Gap BUN Creatinine Est GFR ( Amer) Est GFR (Non-Af Amer) Glucose Calcium 11/20/17 11/20/17 11/21/17 14:11 18:00 00:55 Creatine Kinase CK-MB (CK-2) Troponin I < 0.012 0.014 0.037 11/21/17 11/21/17 11/23/17 06:45 14:55 18:30 Creatine Kinase CK-MB (CK-2) 0.45 Troponin I 0.037 0.019 < 0.012 11/23/17 18:30 Creatine Kinase 44 L CK-MB (CK-2) Troponin I Impressions: Guidance Fluoroscopy 11/20/17 00:00 IMPRESSION: SUCCESSFUL PLACEMENT OF A 5 FR DUAL LUMEN 43 CM PICC IN THE LEFT BASILIC VEIN. Interventional Vascular Procedure 11/20/17 00:00 IMPRESSION: SUCCESSFUL PLACEMENT OF A 5 FR DUAL LUMEN 43 CM PICC IN THE LEFT BASILIC VEIN. PICC Line Insertion 11/20/17 00:00 IMPRESSION: SUCCESSFUL PLACEMENT OF A 5 FR DUAL LUMEN 43 CM PICC IN THE LEFT BASILIC VEIN. Chest X-Ray 11/20/17 09:13 IMPRESSION: NO ACUTE DISEASE. Assessment & Plan - Plan Summary Plan Summary: 1.Acute blood loss anemia secondary to Annia-Horan tear. He had an EGD done which revealed a clot over the anterior. He is at risk for rebleeding. There was a concern this morning for possible bleeding as his hemoglobin had dropped however he was seen by GI and there is no plans for repeat EGD as his hemoglobin has stabilized no transfusion. 2. Dehydration resolved likely from a inadequate oral intake 3. Hematemesis related to DKA early on admission, patient needs to be on PPI IV. 4. Polysubstance abuse apparently denied by patient although his toxicology screen was positive 5. Acute renal failure likely secondary to intravascular volume depletion. 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 Chest pain chronic with no evidence of ACS. Opioids as needed 7. DKA which was present on admission this has resolved. Continue glargine and short acting insulin
[2017-11-26] MEDS ORDERED: POTASSIUM CHLORIDE 10 MEQ TABLET.SA PO ONE (15:00)
[2017-11-26] MEDS: INSULIN LISPRO 100 UNIT/ML 3 ML VIAL SUBCUT PRN ×2 (17:13→21:56)
[2017-11-26] MEDS: QUETIAPINE FUMARATE 100 MG TABLET PO SCH (21:51)
[2017-11-27 05:32] LABS: HEMATOCRIT 26.3 % (37.9-51.0); HEMOGLOBIN 8.5 g/dL (13.5-17.0); MEAN CORPUSCULAR HEMOGLOBIN 24.4 pg (27.0-33.4); MEAN CORPUSCULAR HGB CONC 32.3 g/dL (32.0-36.0); MEAN CORPUSCULAR VOLUME 76 fl (80-97); PLATELET COUNT 455 10^3/uL (150-450); RED BLOOD COUNT 3.48 10^6/uL (4.35-5.55); RED CELL DISTRIBUTION WIDTH 21.8 % (11.5-14.0); WHITE BLOOD COUNT 5.9 10^3/uL (4.0-10.5)
[2017-11-27] MEDS: RINGERS SOLUTION,LACTATED 1,000 ML IV PRN (05:48)
[2017-11-27 05:53] LABS: ANION GAP 8 (5-19); BLOOD UREA NITROGEN 3 mg/dL (7-20); CALCIUM 8.9 mg/dL (8.4-10.2); CARBON DIOXIDE 33 mmol/L (22-30); CHLORIDE 102 mmol/L (98-107); GLUCOSE 72 mg/dL (75-110); POTASSIUM 3.5 mmol/L (3.6-5.0); SODIUM 142.8 mmol/L (137-145)
[2017-11-27] MEDS: METOPROLOL SUCCINATE 50 MG TAB.SR.24H PO SCH ×2 (09:30→22:06)
[2017-11-27] MEDS: OXYCODONE HCL IR 5 MG TABLET PO PRN ×3 (09:30→23:55)
[2017-11-27] MEDS: NORMAL SALINE INJ/PF 0.9% 10 ML SDV IV SCH ×2 (09:31→22:07)
[2017-11-27] MEDS: PANTOPRAZOLE SODIUM 40 MG VIAL IV SCH ×2 (09:31→22:06)
[2017-11-27] MEDS: INSULIN GLARGINE,HUM.REC.ANLOG 300 UNIT/3 ML INSULN.PEN SUBCUT SCH ×2 (09:34→22:04)
[2017-11-27] MEDS ORDERED: HYDROCORTISONE 0.5% CREAM 28.35 GM TP SCH (12:45)
[2017-11-27] MEDS: NICOTINE 21 MG/24 HR PATCH.TD24 TD SCH (17:01)
[2017-11-27] MEDS: INSULIN LISPRO 100 UNIT/ML 3 ML VIAL SUBCUT PRN ×2 (17:45→22:04)
[2017-11-27] MEDS: METOPROLOL TARTRATE PF/INJ 5 MG/5 ML SDV IV PRN (17:45)
[2017-11-27] MEDS: HYDROCORTISONE 0.5% CREAM 28.35 GM TP SCH (22:04)
[2017-11-27] MEDS: QUETIAPINE FUMARATE 100 MG TABLET PO SCH (22:05)
[2017-11-28] MEDS: HYDROCORTISONE 0.5% CREAM 28.35 GM TP SCH ×3 (06:05→22:45)
[2017-11-28] MEDS: OXYCODONE HCL IR 5 MG TABLET PO PRN ×3 (07:59→20:15)
[2017-11-28] MEDS: METOPROLOL SUCCINATE 50 MG TAB.SR.24H PO SCH ×2 (10:33→22:45)
[2017-11-28] MEDS: PANTOPRAZOLE SODIUM 40 MG VIAL IV SCH (10:38)
[2017-11-28] MEDS: NORMAL SALINE INJ/PF 0.9% 10 ML SDV IV SCH ×2 (10:39→22:49)
[2017-11-28 10:46] LABS: HEMATOCRIT 23.7 % (37.9-51.0); MEAN CORPUSCULAR HEMOGLOBIN 24.7 pg (27.0-33.4); MEAN CORPUSCULAR HGB CONC 32.2 g/dL (32.0-36.0); MEAN CORPUSCULAR VOLUME 77 fl (80-97); PLATELET COUNT 405 10^3/uL (150-450); RED BLOOD COUNT 3.09 10^6/uL (4.35-5.55); WHITE BLOOD COUNT 5.5 10^3/uL (4.0-10.5)
[2017-11-28 10:50] LABS: HEMOGLOBIN 7.6 g/dL (13.5-17.0)
[2017-11-28 10:53] LABS: ANION GAP 6 (5-19); BLOOD UREA NITROGEN 4 mg/dL (7-20); CALCIUM 8.1 mg/dL (8.4-10.2); CARBON DIOXIDE 29 mmol/L (22-30); CHLORIDE 106 mmol/L (98-107); GLUCOSE 63 mg/dL (75-110); SODIUM 140.8 mmol/L (137-145)
[2017-11-28 11:02] LABS: POTASSIUM 2.9 mmol/L (3.6-5.0)
[2017-11-28] MEDS: INSULIN LISPRO 100 UNIT/ML 3 ML VIAL SUBCUT PRN ×3 (12:45→22:45)
--- NOTE | 2017-11-28 13:03 | PDOC PROGRESS REPORT ---
Subjective Progress Note for:: 11/27/17 Subjective:: Admitted with nausea and vomiting, improved. c/o rash in ant chest wall area Reason For Visit: DKA,HEMATEMESIS,CHEST PAIN Physical Exam Vital Signs: Temp Pulse Resp BP Pulse Ox 98.3 F 98 14 170/102 H 100 11/27/17 12:46 11/27/17 12:46 11/27/17 12:46 11/27/17 12:46 11/27/17 12:46 Intake & Output 11/26/17 11/27/17 11/28/17 06:59 06:59 06:59 Intake Total 3561 5377 671 Output Total 5800 5750 900 Balance -1663 -373 -229 Weight 93.6 kg 92.4 kg General appearance: PRESENT: no acute distress, cooperative Head exam: PRESENT: atraumatic Eye exam: PRESENT: conjunctiva pink, EOMI, PERRLA. ABSENT: scleral icterus Ear exam: PRESENT: bleeding Cardiovascular exam: PRESENT: RRR. ABSENT: diastolic murmur, rubs, systolic murmur Pulses: PRESENT: normal dorsalis pedis pul GI/Abdominal exam: PRESENT: normal bowel sounds, soft. ABSENT: distended, guarding, mass, organolmegaly, rebound, tenderness Rectal exam: PRESENT: deferred Neurological exam: PRESENT: alert, awake, oriented to person, oriented to place , oriented to time, oriented to situation Psychiatric exam: PRESENT: appropriate affect, normal mood. ABSENT: homicidal ideation, suicidal ideation Skin exam: PRESENT: vesicles - ant chest wall, non erythematous Results Laboratory Results: 11/27/17 04:35 11/27/17 04:35 11/27/17 11/27/17 04:35 04:35 WBC 5.9 RBC 3.48 L Hgb 8.5 L Hct 26.3 L MCV 76 L MCH 24.4 L MCHC 32.3 RDW 21.8 H Plt Count 455 H Sodium 142.8 Potassium 3.5 L Chloride 102 Carbon Dioxide 33 H Anion Gap 8 BUN 3 L Creatinine 1.46 H Est GFR ( Amer) > 60 Est GFR (Non-Af Amer) 56 L Glucose 72 L Calcium 8.9 11/20/17 11/20/17 11/21/17 14:11 18:00 00:55 Creatine Kinase CK-MB (CK-2) Troponin I < 0.012 0.014 0.037 11/21/17 11/21/17 11/23/17 06:45 14:55 18:30 Creatine Kinase CK-MB (CK-2) 0.45 Troponin I 0.037 0.019 < 0.012 11/23/17 18:30 Creatine Kinase 44 L CK-MB (CK-2) Troponin I Impressions: Guidance Fluoroscopy 11/20/17 00:00 IMPRESSION: SUCCESSFUL PLACEMENT OF A 5 FR DUAL LUMEN 43 CM PICC IN THE LEFT BASILIC VEIN. Interventional Vascular Procedure 11/20/17 00:00 IMPRESSION: SUCCESSFUL PLACEMENT OF A 5 FR DUAL LUMEN 43 CM PICC IN THE LEFT BASILIC VEIN. PICC Line Insertion 11/20/17 00:00 IMPRESSION: SUCCESSFUL PLACEMENT OF A 5 FR DUAL LUMEN 43 CM PICC IN THE LEFT BASILIC VEIN. Chest X-Ray 11/20/17 09:13 IMPRESSION: NO ACUTE DISEASE. Assessment & Plan - Time Time Spent with patient: 15-24 minutes Medications reviewed and adjusted accordingly: Yes Anticipated discharge: Home Within: within 48 hours - Plan Summary Plan Summary: 1.Acute blood loss anemia secondary to Annia-Horan tear. He had an EGD done which revealed a clot over the anterior. He is at risk for rebleeding. There was a concern for possible re-bleeding however Hg remains stable. 2. Dehydration resolved likely from inadequate oral intake 3. Hematemesis related to DKA earlier on admission, Cont PPI . 4. Polysubstance abuse apparently denied by patient although his toxicology screen was positive 5. Acute renal failure likely secondary to intravascular volume depletion. 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 Chest pain chronic with no evidence of ACS. Opioids as needed 7. DKA which was present on admission this has resolved. Continue glargine and short acting insulin
--- NOTE | 2017-11-28 13:15 | PDOC PROGRESS REPORT ---
Subjective Progress Note for:: 11/28/17 Subjective:: Admitted with nausea and vomiting, improved. Reason For Visit: DKA,HEMATEMESIS,CHEST PAIN Physical Exam Vital Signs: Temp Pulse Resp BP Pulse Ox 98.8 F 78 14 107/55 L 98 11/28/17 07:21 11/28/17 07:21 11/28/17 07:21 11/28/17 07:21 11/28/17 07:21 Intake & Output 11/27/17 11/28/17 11/29/17 06:59 06:59 06:59 Intake Total 5377 3520 Output Total 5750 900 Balance -373 2620 Weight 92.4 kg 92.6 kg General appearance: PRESENT: no acute distress Head exam: PRESENT: atraumatic Ear exam: PRESENT: normal external ear exam Neck exam: ABSENT: carotid bruit, JVD, lymphadenopathy, thyromegaly Respiratory exam: PRESENT: clear to auscultation juan ramon. ABSENT: rales, rhonchi, wheezes GI/Abdominal exam: PRESENT: normal bowel sounds, soft. ABSENT: distended, guarding, mass, organolmegaly, rebound, tenderness Rectal exam: PRESENT: deferred Extremities exam: PRESENT: full ROM. ABSENT: calf tenderness, clubbing, pedal edema Neurological exam: PRESENT: alert, awake, oriented to person, oriented to place , oriented to time, oriented to situation, CN II-XII grossly intact. ABSENT: motor sensory deficit Results Laboratory Results: 11/28/17 06:04 11/28/17 06:04 11/28/17 11/28/17 06:04 06:04 WBC 5.5 RBC 3.09 L Hgb 7.6 L Hct 23.7 L MCV 77 L MCH 24.7 L MCHC 32.2 RDW 21.0 H Plt Count 405 Sodium 140.8 Potassium 2.9 L* Chloride 106 Carbon Dioxide 29 Anion Gap 6 BUN 4 L Creatinine 1.27 H Est GFR ( Amer) > 60 Est GFR (Non-Af Amer) > 60 Glucose 63 L Calcium 8.1 L 11/20/17 11/20/17 11/21/17 14:11 18:00 00:55 Creatine Kinase CK-MB (CK-2) Troponin I < 0.012 0.014 0.037 11/21/17 11/21/17 11/23/17 06:45 14:55 18:30 Creatine Kinase CK-MB (CK-2) 0.45 Troponin I 0.037 0.019 < 0.012 11/23/17 18:30 Creatine Kinase 44 L CK-MB (CK-2) Troponin I Impressions: Guidance Fluoroscopy 11/20/17 00:00 IMPRESSION: SUCCESSFUL PLACEMENT OF A 5 FR DUAL LUMEN 43 CM PICC IN THE LEFT BASILIC VEIN. Interventional Vascular Procedure 11/20/17 00:00 IMPRESSION: SUCCESSFUL PLACEMENT OF A 5 FR DUAL LUMEN 43 CM PICC IN THE LEFT BASILIC VEIN. PICC Line Insertion 11/20/17 00:00 IMPRESSION: SUCCESSFUL PLACEMENT OF A 5 FR DUAL LUMEN 43 CM PICC IN THE LEFT BASILIC VEIN. Chest X-Ray 11/20/17 09:13 IMPRESSION: NO ACUTE DISEASE. Assessment & Plan - Time Time Spent with patient: 15-24 minutes Medications reviewed and adjusted accordingly: Yes Anticipated discharge: Home - Inpatient Certification Based on my medical assessment, after consideration of the patient's comorbidities, presenting symptoms, or acuity I expect that the services needed warrant INPATIENT care.: Yes I certify that my determination is in accordance with my understanding of Medicare's requirements for reasonable and necessary INPATIENT services [42 CFR 412.3e].: Yes Medical Necessity: Risk of Complication if Not Cared For in Hospital - Plan Summary Plan Summary: 1.Acute blood loss anemia secondary to Annia-Horan tear. He had an EGD done which revealed a clot over the anterior. He is at risk for rebleeding. Hg seems to be drifting down again. No evidence of fresh bleeding but would monitor. 2. Dehydration resolved likely from inadequate oral intake 3. Hematemesis related to DKA earlier on admission, Cont PPI . No further vomiting noted 4. Polysubstance abuse apparently denied by patient although his toxicology screen was positive 5. Acute renal failure likely secondary to intravascular volume depletion. Likely has chronic kidney disease based on diabetes nephropathy 6. Chest pain chronic with no evidence of ACS. Opioids as needed 7. DKA which was present on admission this has resolved. Continue glargine and short acting insulin
[2017-11-28] MEDS: INSULIN GLARGINE,HUM.REC.ANLOG 300 UNIT/3 ML INSULN.PEN SUBCUT SCH ×2 (14:26→22:45)
[2017-11-28] MEDS: POTASSIUM CHLORIDE 20 MEQ/50 ML RTU IV SCH ×2 (14:38→16:39)
[2017-11-28] MEDS: NICOTINE 21 MG/24 HR PATCH.TD24 TD SCH (14:48)
[2017-11-28] MEDS: QUETIAPINE FUMARATE 100 MG TABLET PO SCH (22:44)
[2017-11-29] MEDS: OXYCODONE HCL IR 5 MG TABLET PO PRN ×3 (04:33→23:56)
[2017-11-29] MEDS: HYDROCORTISONE 0.5% CREAM 28.35 GM TP SCH ×3 (04:34→22:27)
[2017-11-29 07:10] LABS: POTASSIUM 2.8 mmol/L (3.6-5.0)
[2017-11-29 08:33] LABS: HEMATOCRIT 24.7 % (37.9-51.0); MEAN CORPUSCULAR HEMOGLOBIN 24.5 pg (27.0-33.4); MEAN CORPUSCULAR HGB CONC 32.2 g/dL (32.0-36.0); MEAN CORPUSCULAR VOLUME 76 fl (80-97); PLATELET COUNT 459 10^3/uL (150-450); RED BLOOD COUNT 3.25 10^6/uL (4.35-5.55); RED CELL DISTRIBUTION WIDTH 21.5 % (11.5-14.0); WHITE BLOOD COUNT 5.2 10^3/uL (4.0-10.5)
[2017-11-29 08:42] LABS: BLOOD UREA NITROGEN 4 mg/dL (7-20); CALCIUM 7.2 mg/dL (8.4-10.2); CARBON DIOXIDE 25 mmol/L (22-30); CHLORIDE 112 mmol/L (98-107); GLUCOSE 88 mg/dL (75-110)
[2017-11-29 08:55] LABS: ANION GAP 5 (5-19); SODIUM 141.8 mmol/L (137-145)
[2017-11-29 09:02] LABS: POTASSIUM 2.8 mmol/L (3.6-5.0)
[2017-11-29] MEDS: METOPROLOL SUCCINATE 50 MG TAB.SR.24H PO SCH ×2 (09:16→22:26)
[2017-11-29] MEDS: POTASSIUM CHLORIDE 20 MEQ/50 ML RTU IV SCH ×2 (09:16→12:43)
[2017-11-29] MEDS: NORMAL SALINE INJ/PF 0.9% 10 ML SDV IV SCH ×2 (09:17→22:27)
[2017-11-29] MEDS: INSULIN GLARGINE,HUM.REC.ANLOG 300 UNIT/3 ML INSULN.PEN SUBCUT SCH ×2 (09:17→22:26)
[2017-11-29] MEDS ORDERED: POTASSIUM CHLORIDE 10 MEQ TABLET.SA PO ONE (09:30)
[2017-11-29] MEDS ORDERED: MAGNESIUM SULFATE 4 GM/100 ML RTUPB IV ONE (10:00)
[2017-11-29] MEDS: INSULIN LISPRO 100 UNIT/ML 3 ML VIAL SUBCUT PRN ×2 (13:01→22:26)
[2017-11-29] MEDS: NICOTINE 21 MG/24 HR PATCH.TD24 TD SCH (15:50)
[2017-11-29 17:59] LABS: ANION GAP 5 (5-19); BLOOD UREA NITROGEN 6 mg/dL (7-20); CALCIUM 8.8 mg/dL (8.4-10.2); CARBON DIOXIDE 31 mmol/L (22-30); CHLORIDE 102 mmol/L (98-107); GLUCOSE 126 mg/dL (75-110); SODIUM 138.2 mmol/L (137-145)
[2017-11-29] MEDS ORDERED: OXYCODONE HCL IR 5 MG TABLET PO SCH (18:00)
[2017-11-29 18:14] LABS: POTASSIUM 3.9 mmol/L (3.6-5.0)
[2017-11-29] MEDS ORDERED: DEXTROSE 50%-WATER SYRINGE 12.5 GM/25 ML DOSE IV PRN (19:22)
[2017-11-29] MEDS ORDERED: DEXTROSE 40% GEL 15 GM TUBE PO PRN (19:22)
[2017-11-29] MEDS ORDERED: DEXTROSE 40% GEL 15 GM TUBE X 2 PO PRN (19:22)
[2017-11-29] MEDS ORDERED: GLUCAGON,HUMAN RECOMB 1 MG INJ IM PRN (19:22)
[2017-11-29] MEDS ORDERED: DEXTROSE 50%-WATER SYRINGE 25 GM/50 ML DOSE IV PRN (19:22)
[2017-11-29] MEDS ORDERED: INSULIN LISPRO 100 UNIT/ML 3 ML VIAL SUBCUT PRN (19:24)
--- NOTE | 2017-11-29 19:48 | PDOC PROGRESS REPORT ---
Subjective Progress Note for:: 11/29/17 Subjective:: Admitted with nausea and vomiting, improved. Reason For Visit: DKA,HEMATEMESIS,CHEST PAIN Physical Exam Vital Signs: Temp Pulse Resp BP Pulse Ox 98.6 F 86 14 136/90 H 97 11/29/17 16:48 11/29/17 16:48 11/29/17 16:48 11/29/17 16:48 11/29/17 16:48 Intake & Output 11/28/17 11/29/17 11/30/17 06:59 06:59 06:59 Intake Total 3520 4323 2200 Output Total 900 1600 2400 Balance 2620 2723 -200 Weight 92.6 kg 92.5 kg General appearance: PRESENT: no acute distress, cooperative Head exam: PRESENT: atraumatic Eye exam: PRESENT: conjunctiva pink, EOMI, PERRLA. ABSENT: scleral icterus Mouth exam: PRESENT: dry mucosa Respiratory exam: PRESENT: clear to auscultation juan ramon. ABSENT: rales, rhonchi, wheezes GI/Abdominal exam: PRESENT: normal bowel sounds, soft. ABSENT: distended, guarding, mass, organolmegaly, rebound, tenderness Rectal exam: PRESENT: deferred Extremities exam: PRESENT: full ROM. ABSENT: calf tenderness, clubbing, pedal edema Musculoskeletal exam: PRESENT: ambulatory Neurological exam: PRESENT: alert, awake, oriented to person, oriented to place , oriented to time, oriented to situation, CN II-XII grossly intact. ABSENT: motor sensory deficit Psychiatric exam: PRESENT: appropriate affect, normal mood. ABSENT: homicidal ideation, suicidal ideation Skin exam: PRESENT: vesicles Results Laboratory Results: 11/29/17 06:38 11/29/17 17:14 11/29/17 11/29/17 11/29/17 06:38 06:38 06:38 WBC 5.2 RBC 3.25 L Hgb 8.0 L Hct 24.7 L MCV 76 L MCH 24.5 L MCHC 32.2 RDW 21.5 H Plt Count 459 H Sodium 141.8 Potassium 2.8 L* 2.8 L* Chloride 112 H Carbon Dioxide 25 Anion Gap 5 BUN 4 L Creatinine 1.11 Est GFR ( Amer) > 60 Est GFR (Non-Af Amer) > 60 Glucose 88 Calcium 7.2 L Magnesium 1.4 L 11/29/17 17:14 WBC RBC Hgb Hct MCV MCH MCHC RDW Plt Count Sodium 138.2 Potassium 3.9 D Chloride 102 Carbon Dioxide 31 H Anion Gap 5 BUN 6 L Creatinine 1.35 H Est GFR ( Amer) > 60 Est GFR (Non-Af Amer) > 60 Glucose 126 H Calcium 8.8 Magnesium 2.5 H D 11/20/17 11/20/17 11/21/17 14:11 18:00 00:55 Creatine Kinase CK-MB (CK-2) Troponin I < 0.012 0.014 0.037 11/21/17 11/21/17 11/23/17 06:45 14:55 18:30 Creatine Kinase CK-MB (CK-2) 0.45 Troponin I 0.037 0.019 < 0.012 11/23/17 18:30 Creatine Kinase 44 L CK-MB (CK-2) Troponin I Impressions: Guidance Fluoroscopy 11/20/17 00:00 IMPRESSION: SUCCESSFUL PLACEMENT OF A 5 FR DUAL LUMEN 43 CM PICC IN THE LEFT BASILIC VEIN. Interventional Vascular Procedure 11/20/17 00:00 IMPRESSION: SUCCESSFUL PLACEMENT OF A 5 FR DUAL LUMEN 43 CM PICC IN THE LEFT BASILIC VEIN. PICC Line Insertion 11/20/17 00:00 IMPRESSION: SUCCESSFUL PLACEMENT OF A 5 FR DUAL LUMEN 43 CM PICC IN THE LEFT BASILIC VEIN. Chest X-Ray 11/20/17 09:13 IMPRESSION: NO ACUTE DISEASE. Assessment & Plan - Plan Summary Plan Summary: 1.Acute blood loss anemia secondary to Annia-Horan tear. Hg relatively stable. 2. Dehydration resolved likely from inadequate oral intake 3. Hematemesis related to DKA earlier on admission, Cont PPI . No further vomiting noted 4. Polysubstance abuse apparently denied by patient although his toxicology screen was positive 5. Acute renal failure likely secondary to intravascular volume depletion. Likely has chronic kidney disease based on diabetes nephropathy 6. Chest pain chronic with no evidence of ACS. Opioids as needed 7. DKA which was present on admission this has resolved. Continue glargine and short acting insulin 8. Hypokalemia and hypomagenesemia- corrected. Plan is to dc in am
[2017-11-29] MEDS: FAMOTIDINE 20 MG TABLET PO SCH (22:26)
[2017-11-29] MEDS: QUETIAPINE FUMARATE 100 MG TABLET PO SCH (22:27)
[2017-11-30] MEDS: OXYCODONE HCL IR 5 MG TABLET PO PRN (06:09)
[2017-11-30] MEDS: HYDROCORTISONE 0.5% CREAM 28.35 GM TP SCH (06:09)
[2017-11-30] MEDS: INSULIN LISPRO 100 UNIT/ML 3 ML VIAL SUBCUT PRN ×2 (08:11→11:38)
[2017-11-30] MEDS: FAMOTIDINE 20 MG TABLET PO SCH (09:32)
[2017-11-30] MEDS: METOPROLOL SUCCINATE 50 MG TAB.SR.24H PO SCH (09:32)
[2017-11-30] MEDS: INSULIN GLARGINE,HUM.REC.ANLOG 300 UNIT/3 ML INSULN.PEN SUBCUT SCH (09:33)
[2017-11-30] MEDS: NORMAL SALINE INJ/PF 0.9% 10 ML SDV IV SCH (09:34)
[2017-11-30 11:23] VITALS: BP 138/84
--- NOTE | 2017-12-02 17:59 | PDOC DISCHARGE SUMMARY ---
General - Admit/Disc Date/PCP Admission Date/Primary Care Provider: 11/20/17 10:37 KRYSTIN LACKEY, Discharge Date: 11/30/17 - Discharge Diagnosis (1) Acute blood loss anemia Is this a current diagnosis for this admission?: Yes (2) DKA (diabetic ketoacidoses) Is this a current diagnosis for this admission?: Yes (3) Hematemesis/vomiting blood Is this a current diagnosis for this admission?: Yes (4) Hypokalemia Is this a current diagnosis for this admission?: Yes (5) Hx of noncompliance with medical treatment, presenting hazards to health Is this a current diagnosis for this admission?: Yes (6) Cocaine use Is this a current diagnosis for this admission?: Yes (7) Hypomagnesemia Is this a current diagnosis for this admission?: Yes - Additional Information Resuscitation Status: Full Code Discharge Diet: Diabetic Discharge Activity: Activity As Tolerated Prescriptions: Oxycodone HCl [Oxy-Ir 5 mg Tablet] 15 mg PO Q6HP PRN #10 tablet PRN Reason: Insulin Glargine,Hum.rec.anlog [Lantus Insulin 100 Unit/mL] 20 unit SUBCUT Q12 # 10 ml Insulin Lispro [Humalog Insulin (Lispro) 100 unit/mL] 0 - 12 unit SUBCUT ACHSP PRN #1 ml PRN Reason: Metoprolol Succinate [Toprol Xl 50 mg Tab.sr] 50 mg PO Q12 #30 tab.sr.24h Pantoprazole Sodium [Protonix] 40 mg PO BID #60 tablet. [place] Medications: Hydrocortisone [Hydrocortisone 0.5% Cream 28.35 gm] 1 applic TP Q8 tube Insulin Glargine,Hum.rec.anlog [Lantus Insulin 100 Unit/mL] 20 unit SUBCUT Q12 # 10 ml 11/30/17 Insulin Lispro [Humalog Insulin (Lispro) 100 unit/mL] 0 - 12 unit SUBCUT ACHSP PRN #1 ml 11/30/17 Metoprolol Succinate [Toprol Xl 50 mg Tab.sr] 50 mg PO Q12 #30 tab.sr.24h Oxycodone HCl [Oxy-Ir 5 mg Tablet] 15 mg PO Q6HP PRN #10 tablet 11/30/17 Pantoprazole Sodium [Protonix] 40 mg PO BID #60 tablet.dr 11/30/17 History of Present Illness Patient complains of: This patient was admitted with complaints of chest pain as well as nausea vomiting and anorexia and was found to be diabetic ketoacidosis. He was found to have a blood glucose greater than 600 and started on insulin drip. He had been having intermittent bloody emesis. He was also started on Protonix drip. History of Present Illness: LENA SCHULZ is a 32 year old male Hospital Course Hospital Course: This patient was admitted with complaints of chest pain as well as nausea vomiting and anorexia and was found to be diabetic ketoacidosis. He was found to have a blood glucose greater than 600 and started on insulin drip. He had been having intermittent bloody emesis. He was also started on Protonix drip. He also had a mild acute kidney injury secondary to a likely intravascular volume depletion which is resolved with hydration. There is a history of polysubstance abuse drug screen positive for cocaine on initial admission. His chest pain was thought to be due to intractable nausea and vomiting and acute coronary syndrome was ruled out. He was seen by the material control specialist and subsequently had an upper endoscopy done which revealed a Annia-Horan tear patient was subsequently transfused with 2 units of packed red blood cells as his hemoglobin dropped from 11.9-6.9. His hemoglobin stayed relatively stable after that and was monitored in the hospital for a few days with no evidence of further hematemesis or active bleeding. He is potassium was depleted probably due to insulin deficiency and received numerous potassium replacement as well as magnesium replacement. He has been counseled on the need to avoid substance abuse and he has been advised on the need to be compliant with his medications and his diet. At this time patient is hemodynamically stable and with the replacement of his electrolytes and stable hemoglobin has been discharged home Physical Exam Vital Signs: Temp Pulse Resp BP Pulse Ox 98.5 F 102 H 20 127/84 H 100 11/29/17 20:16 11/30/17 07:52 11/30/17 07:52 11/30/17 07:52 11/30/17 07:52 Intake & Output 11/29/17 11/30/17 12/01/17 06:59 06:59 06:59 Intake Total 4323 3760 Output Total 1600 2400 Balance 2723 1360 Weight 92.5 kg 92 kg General appearance: PRESENT: no acute distress, cooperative, thin Head exam: PRESENT: atraumatic Ear exam: PRESENT: normal external ear exam Mouth exam: PRESENT: moist, tongue midline Respiratory exam: PRESENT: clear to auscultation juan ramon. ABSENT: rales, rhonchi, wheezes Cardiovascular exam: PRESENT: bradycardia Pulses: PRESENT: normal dorsalis pedis pul GI/Abdominal exam: PRESENT: normal bowel sounds, soft. ABSENT: distended, guarding, mass, organolmegaly, rebound, tenderness Neurological exam: PRESENT: alert, awake, oriented to person, oriented to place , oriented to time, oriented to situation, CN II-XII grossly intact. ABSENT: motor sensory deficit Psychiatric exam: PRESENT: appropriate affect, normal mood. ABSENT: homicidal ideation, suicidal ideation Results Laboratory Results: 11/29/17 06:38 11/29/17 17:14 11/29/17 17:14 Sodium 138.2 Potassium 3.9 D Chloride 102 Carbon Dioxide 31 H Anion Gap 5 BUN 6 L Creatinine 1.35 H Est GFR ( Amer) > 60 Est GFR (Non-Af Amer) > 60 Glucose 126 H Calcium 8.8 Magnesium 2.5 H D 11/20/17 11/20/17 11/21/17 14:11 18:00 00:55 Creatine Kinase CK-MB (CK-2) Troponin I < 0.012 0.014 0.037 11/21/17 11/21/17 11/23/17 06:45 14:55 18:30 Creatine Kinase CK-MB (CK-2) 0.45 Troponin I 0.037 0.019 < 0.012 11/23/17 18:30 Creatine Kinase 44 L CK-MB (CK-2) Troponin I Impressions: Guidance Fluoroscopy 11/20/17 00:00 IMPRESSION: SUCCESSFUL PLACEMENT OF A 5 FR DUAL LUMEN 43 CM PICC IN THE LEFT BASILIC VEIN. Interventional Vascular Procedure 11/20/17 00:00 IMPRESSION: SUCCESSFUL PLACEMENT OF A 5 FR DUAL LUMEN 43 CM PICC IN THE LEFT BASILIC VEIN. PICC Line Insertion 11/20/17 00:00 IMPRESSION: SUCCESSFUL PLACEMENT OF A 5 FR DUAL LUMEN 43 CM PICC IN THE LEFT BASILIC VEIN. Chest X-Ray 11/20/17 09:13 IMPRESSION: NO ACUTE DISEASE. Qualifiers - * PATEINT BEING DISCHARGED WITH ANY OF THE FOLLOWING DIAGNOSIS?: No Plan Time Spent: Greater than 30 Minutes
== END 2017-11-30 12:03 | disposition home or self-care (01) | DRG 637 ==
LOC: ER 08:44 → EH 10:37 → 3S 15:59
PROVIDERS: ADMIT Emergency Medicine; ATTEND Emergency Medicine
PROC: 02HV33Z Insertion of Infusion Device into Superior Vena Cava, Percutaneous Approach (ICD-10-PCS; 2017-11-20)
PROC: B518ZZA Fluoroscopy of Superior Vena Cava, Guidance (ICD-10-PCS; 2017-11-20)
PROC: 30233N1 Transfusion of Nonautologous Red Blood Cells into Peripheral Vein, Percutaneous Approach (ICD-10-PCS; 2017-11-22)
PROC: 0DB78ZX Excision of Stomach, Pylorus, Via Natural or Artificial Opening Endoscopic, Diagnostic (ICD-10-PCS; principal; 2017-11-22 11:30)
PROC: 3E0G8GC Introduction of Other Therapeutic Substance into Upper GI, Via Natural or Artificial Opening Endoscopic (ICD-10-PCS; 2017-11-22 11:30)
DX: E10.10 Type 1 diabetes mellitus with ketoacidosis without coma (principal); K22.6 Gastro-esophageal laceration-hemorrhage syndrome; N17.9 Acute kidney failure, unspecified; D62 Acute posthemorrhagic anemia; E83.42 Hypomagnesemia; E87.6 Hypokalemia; E86.0 Dehydration; F14.10 Cocaine abuse, uncomplicated; F13.10 Sedative, hypnotic or anxiolytic abuse, uncomplicated; I10 Essential (primary) hypertension; F17.200 Nicotine dependence, unspecified, uncomplicated; F31.9 Bipolar disorder, unspecified; K29.70 Gastritis, unspecified, without bleeding; K44.9 Diaphragmatic hernia without obstruction or gangrene; F41.9 Anxiety disorder, unspecified; I25.10 Atherosclerotic heart disease of native coronary artery without angina pectoris; D72.829 Elevated white blood cell count, unspecified; R07.89 Other chest pain; Z79.4 Long term (current) use of insulin; Z83.3 Family history of diabetes mellitus; I25.2 Old myocardial infarction; Z90.49 Acquired absence of other specified parts of digestive tract; Z82.49 Family history of ischemic heart disease and other diseases of the circulatory system; Z91.19 Patient's noncompliance with other medical treatment and regimen
CPT/HCPCS: 36415; 36430; 36569; 43236; 43239; 71045; 731; 76937; 77001; 80048; 80053; 80061; 80076; 80307; 81001; 82550; 82553; 82803; 82962; 83036; 83605; 83735; 83880; 84100; 84132; 84484; 85025; 85027; 85610; 85730; 86850; 86900; 86901; 86920; 88305; 93005; 93010; 94640; 96360; 96372; 99291; J1170; J1200; J1642; J1815; J2060; J2250; J2405; J2550; J2704; J2765; J3010; J3475; J3480; J3490; J7030; J7120; P9016; S0164

== ENCOUNTER 2018-04-13 02:05 | Emergency (ER) | payer MEDICAID ==
--- NOTE | 2018-04-13 03:06 | EKG REPORT ---
SEVERITY:- BORDERLINE ECG - SINUS TACHYCARDIA BORDERLINE T WAVE ABNORMALITIES : Confirmed by: Arin Drummond MD 13-Apr-2018 03:05:24
[2018-04-13] MEDS ORDERED: ONDANSETRON 4 MG TAB.RAPDIS PO ONE (03:50)
--- NOTE | 2018-04-13 03:54 | ER Document Report ---
ED General - General Chief Complaint: Abdominal Pain Stated Complaint: NAUSEA,LGHTHEADED Time Seen by Provider: 04/13/18 03:22 Mode of Arrival: Ambulatory Information source: Patient, [facility] Records Notes: 32-year-old male with coronary artery disease, hypertension, type 1 diabetes, bipolar disorder, esophageal strictures presents with complaint of nausea and shortness of breath. Patient states that both nausea and his shortness of breath started just prior to arrival while he was watching TV. Patient has had associated vomiting 2. He denies any blood in his emesis. He has had normal bowel movements. He denies sick contacts. Patient is a tobacco user. He denies any abdominal pain, cough or chest pain. TRAVEL OUTSIDE OF THE [place] IN LAST 30 DAYS: No - HPI Onset: Just prior to arrival Onset/Duration: Sudden Quality of pain: No pain Severity: None Associated symptoms: Nausea, Vomiting, Shortness of breath. denies: Chest pain , Nonproductive cough, Diarrhea, Fever, Headache Exacerbated by: Denies Relieved by: Denies Similar symptoms previously: Yes Recently seen / treated by doctor: Yes - Related Data Allergies/Adverse Reactions: No Known Allergies Allergy (Verified 04/13/18 02:08) Past Medical History - General Information source: Patient, [facility] Records - Social History Smoking Status: Current Every Day Smoker Chew tobacco use (# tins/day): No Frequency of alcohol use: None Drug Abuse: None Lives with: Family Family History: DM, Hypertension Patient has suicidal ideation: No Patient has homicidal ideation: No - Past Medical History Cardiac Medical History: Reports: Hx Heart Attack - May 2017., Hx Hypertension Denies: Hx Congestive Heart Failure, Hx DVT, Hx Hypercholesterolemia, Hx Pulmonary Embolism Pulmonary Medical History: Reports: Hx Asthma - as child Denies: Hx COPD, Hx Sleep Apnea Neurological Medical History: Reports: Hx Migraine. Denies: Hx Seizures Endocrine Medical History: Reports: Hx Diabetes Mellitus Type 1. Denies: Hx Diabetes Mellitus Type 2, Hx Hyperthyroidism, Hx Hypothyroidism Renal/ Medical History: Denies: Hx Peritoneal Dialysis GI Medical History: Denies: Hx Cirrhosis, Hx Gastroesophageal Reflux Disease, Hx Hepatitis Musculoskeletal Medical History: Denies Hx Arthritis Psychiatric Medical History: Reports: Hx Anxiety, Hx Bipolar Disorder, Hx Depression, Hx Schizophrenia Infectious Medical History: Denies: Hx C-Diff, Hx Hepatitis, Hx MRSA Past Surgical History: Reports: Hx Appendectomy, Hx Oral Surgery - wisdom teeth , Other - [place] teeth extraction - Immunizations Hx Diphtheria, Pertussis, Tetanus Vaccination: Yes Hx Pneumococcal Vaccination: 09/16/00 Review of Systems - Review of Systems Constitutional: denies: Fever, Weakness EENT: denies: Blurred vision, Throat pain Cardiovascular: denies: Chest pain, Palpitations, Syncope Respiratory: Short of breath. denies: Cough, Hurts to breathe, Wheezing Gastrointestinal: Nausea, Vomiting. denies: Abdominal pain, Diarrhea Genitourinary: denies: Dysuria, Flank pain Male Genitourinary: No symptoms reported Musculoskeletal: No symptoms reported Skin: denies: Rash Hematologic/Lymphatic: denies: Swollen glands Neurological/Psychological: denies: Weakness, Headaches -: Yes All other systems reviewed and negative Physical Exam - Vital signs Vitals: Resp Pulse Ox 15 97 04/13/18 02:55 04/13/18 02:55 - Notes Notes: PHYSICAL EXAMINATION: GENERAL: Well-appearing, well-nourished and in no acute distress. HEAD: Atraumatic, normocephalic. EYES: Pupils equal round and reactive to light, extraocular movements intact, sclera anicteric, conjunctiva are normal. ENT: Nares patent, oropharynx clear without exudates. Moist mucous membranes. NECK: Normal range of motion, supple without lymphadenopathy LUNGS: Breath sounds clear to auscultation bilaterally and equal. No wheezes rales or rhonchi. HEART: Regular rate and rhythm without murmurs ABDOMEN: Soft, nontender, nondistended abdomen. No guarding, no rebound. No masses appreciated. Musculoskeletal: Normal range of motion, no pitting or edema. No cyanosis. NEUROLOGICAL: Cranial nerves grossly intact. Normal speech, normal gait. Normal sensory, motor exams PSYCH: Normal mood, normal affect. SKIN: Warm, Dry, normal turgor, no rashes or lesions noted. Course - Re-evaluation Re-evalutation: Laboratory 04/13/18 04/13/18 04/13/18 02:48 03:22 03:22 WBC 9.6 RBC 5.17 Hgb 13.6 Hct 40.7 MCV 79 L MCH 26.4 L MCHC 33.5 RDW 15.3 H Plt Count 231 Seg Neutrophils % 76.7 Lymphocytes % 15.3 Monocytes % 7.0 Eosinophils % 0.5 Basophils % 0.5 Absolute Neutrophils 7.4 Absolute Lymphocytes 1.5 Absolute Monocytes 0.7 Absolute Eosinophils 0.1 Absolute Basophils 0.1 Sodium 144.0 Potassium 3.7 Chloride 101 Carbon Dioxide 29 Anion Gap 14 BUN 7 Creatinine 1.34 H Est GFR ( Amer) > 60 Est GFR (Non-Af Amer) > 60 Glucose 77 POC Glucose 95 Calcium 9.3 Total Bilirubin 0.4 Direct Bilirubin 0.3 Neonat Total Bilirubin Not Reportable Neonat Direct Bilirubin Not Reportable Neonat Indirect Bili Not Reportable AST 29 ALT 31 Alkaline Phosphatase 97 Troponin I NT-Pro-B Natriuret Pep Total Protein 7.9 Albumin 4.4 Lipase 63.4 04/13/18 03:22 WBC RBC Hgb Hct MCV MCH MCHC RDW Plt Count Seg Neutrophils % Lymphocytes % Monocytes % Eosinophils % Basophils % Absolute Neutrophils Absolute Lymphocytes Absolute Monocytes Absolute Eosinophils Absolute Basophils Sodium Potassium Chloride Carbon Dioxide Anion Gap BUN Creatinine Est GFR ( Amer) Est GFR (Non-Af Amer) Glucose POC Glucose Calcium Total Bilirubin Direct Bilirubin Neonat Total Bilirubin Neonat Direct Bilirubin Neonat Indirect Bili AST ALT Alkaline Phosphatase Troponin I < 0.012 NT-Pro-B Natriuret Pep 144 H Total Protein Albumin Lipase 04/13/18 05:05 32-year-old male with coronary artery disease, hypertension, type 1 diabetes, bipolar disorder, esophageal strictures presents with complaint of nausea and shortness of breath. Patient states that both nausea and his shortness of breath started just prior to arrival while he was watching TV. Patient has had associated vomiting 2. He denies any blood in his emesis. He has had normal bowel movements. He denies sick contacts. Patient is a tobacco user. He denies any abdominal pain, cough or chest pain. Upon arrival vitals are reviewed. Patient is afebrile, markedly hypertensive but does admit to not taking his blood pressure medications tonight. Abdominal exam is benign. Patient was administered Zofran. Chest x-ray was obtained and within normal limits. CBC is without leukocytosis or anemia. CMP does show a mildly elevated creatinine but this seems to be the patient's baseline. Lipase within normal limits. On reevaluation he states he is feeling better and is requesting discharge home. He was provided a 6 pack of Zofran from the emergency department. Smoking cessation advised. Patient provided the opportunity to ask questions, and express concerns. Discharge instructions discussed. Patient is agreeable with discharge home. Return indications explained and discussed with the patient who displays understanding. Patient encouraged to return to the emergency department immediately with any concerns. 04/13/18 05:06 04/13/18 05:07 - Vital Signs Vital signs: Temp Pulse Resp BP Pulse Ox 20 180/118 H 95 04/13/18 03:03 04/13/18 03:03 04/13/18 03:03 - Laboratory Result Diagrams: 04/13/18 03:22 04/13/18 03:22 Laboratory results interpreted by me: 04/13/18 04/13/18 04/13/18 03:22 03:22 03:22 MCV 79 L MCH 26.4 L RDW 15.3 H Creatinine 1.34 H NT-Pro-B Natriuret Pep 144 H - Diagnostic Test Radiology reviewed: Image reviewed, Reports reviewed - EKG Interpretation by Me EKG shows normal: Sinus rhythm Rate: Tachycardia Rhythm: NSR When compared to previous EKG there are: No significant change Discharge - Discharge Clinical Impression: Nausea Dyspnea Qualifiers: Dyspnea type: unspecified Qualified Code(s): R06.00 - Dyspnea, unspecified Hypertension Qualifiers: Hypertension type: unspecified Qualified Code(s): I10 - Essential (primary) hypertension DKA, type 1 Qualifiers: Diabetes mellitus complication detail: without coma Qualified Code(s): E10.10 - Type 1 diabetes mellitus with ketoacidosis without coma Condition: Good Disposition: HOME, SELF-CARE Instructions: Nausea or Vomiting, Nonspecific ([facility]) Additional Instructions: Follow up with your physician tomorrow for further care or return to the ED IMMEDIATELY if symptoms worsen or new concerns occur. If you cannot afford to follow up with your primary care physician a list of low cost clinics have been provided at the end of your discharge papers as well. Forms: Smoking Cessation Education, Elevated Blood Pressure
[2018-04-13 04:01] LABS: ABSOLUTE BASOPHILS # (AUTO) 0.1 10^3/uL (0.0-0.2); ABSOLUTE EOSINOPHILS # (AUTO) 0.1 10^3/uL (0.0-0.6); ABSOLUTE LYMPHOCYTES (AUTO) 1.5 10^3/uL (0.5-4.7); ABSOLUTE MONOCYTES (AUTO) 0.7 10^3/uL (0.1-1.4); ABSOLUTE NEUT (AUTO) 7.4 10^3/uL (1.7-8.2); BASOPHILS % (AUTO) 0.5 % (0-2); EOSINOPHILS % (AUTO) 0.5 % (0-6); HEMATOCRIT 40.7 % (37.9-51.0); HEMOGLOBIN 13.6 g/dL (13.5-17.0); LYMPHOCYTES % (AUTO) 15.3 % (13-45); MEAN CORPUSCULAR HEMOGLOBIN 26.4 pg (27.0-33.4); MEAN CORPUSCULAR HGB CONC 33.5 g/dL (32.0-36.0); MEAN CORPUSCULAR VOLUME 79 fl (80-97); PLATELET COUNT 231 10^3/uL (150-450); RED BLOOD COUNT 5.17 10^6/uL (4.35-5.55); RED CELL DISTRIBUTION WIDTH 15.3 % (11.5-14.0); SEGMENTED NEUTROPHILS % (AUTO) 76.7 % (42-78); TOTAL CELLS COUNTED % (AUTO) 100 %; WHITE BLOOD COUNT 9.6 10^3/uL (4.0-10.5)
[2018-04-13 04:19] LABS: ALANINE AMINOTRANSFERASE 31 U/L (21-72); ALBUMIN 4.4 g/dL (3.5-5.0); ALKALINE PHOSPHATASE 97 U/L (38-126); ANION GAP 14 (5-19); ASPARTATE AMINO TRANSFERASE 29 U/L (17-59); BILIRUBIN,DIRECT 0.3 mg/dL (0.0-0.4); BILIRUBIN,TOTAL 0.4 mg/dL (0.2-1.3); BLOOD UREA NITROGEN 7 mg/dL (7-20); CALCIUM 9.3 mg/dL (8.4-10.2); CARBON DIOXIDE 29 mmol/L (22-30); CHLORIDE 101 mmol/L (98-107); GLUCOSE 77 mg/dL (75-110); LIPASE 63.4 U/L (23-300); POTASSIUM 3.7 mmol/L (3.6-5.0); TOTAL PROTEIN 7.9 g/dL (6.3-8.2)
[2018-04-13 04:31] LABS: NT PRO BNP 144 pg/mL (<125)
[2018-04-13 04:33] LABS: TROPONIN I < 0.012 ng/mL
[2018-04-13] MEDS ORDERED: ONDANSETRON ODT 4 MG TAB (6 TAB/ER DISP) PO PRN (05:04)
--- NOTE | 2018-04-13 05:08 | RADIOLOGY REPORT (SQ) ---
EXAM DESCRIPTION: XR CHEST 2 VIEWS COMPLETED DATE/TME: 04/13/2018 03:50 CLINICAL HISTORY: sob COMPARISON: 11/20/2017 FINDINGS: Single frontal view of the chest. The cardiomediastinal silhouette has normal size and contour. No consolidation, pneumothorax, or pleural effusion. No displaced rib fractures identified. Leads overlie the chest. Upper abdominal soft tissues are unremarkable. IMPRESSION: 1. No acute pulmonary process identified.
[2018-04-13 05:16] VITALS: BP 167/109
== END 2018-04-13 05:18 | disposition home or self-care (01) ==
LOC: ER 02:05
DX: R06.02 Shortness of breath (principal); E10.10 Type 1 diabetes mellitus with ketoacidosis without coma; R11.2 Nausea with vomiting, unspecified; I25.10 Atherosclerotic heart disease of native coronary artery without angina pectoris; R00.0 Tachycardia, unspecified; I10 Essential (primary) hypertension; I25.2 Old myocardial infarction; F17.200 Nicotine dependence, unspecified, uncomplicated; Z79.899 Other long term (current) drug therapy
CPT/HCPCS: 93005; 99284; 36415; 82962; 83690; 85025; 80053; 84484; 83880; 71046; 93010; S0119

== ENCOUNTER 2018-04-16 20:34 | Observation (INO) | payer OTHER, MEDICAID ==
--- NOTE | 2018-04-16 21:29 | RADIOLOGY REPORT (SQ) ---
EXAM DESCRIPTION: CHEST SINGLE VIEW COMPLETED DATE/TIME: 04/16/2018 9:13 pm REASON FOR STUDY: CP COMPARISON: 04/13/2018 EXAM PARAMETERS: NUMBER OF VIEWS: One view. TECHNIQUE: Single frontal radiographic view of the chest acquired. RADIATION DOSE: NA LIMITATIONS: None. FINDINGS: LUNGS AND PLEURA: No opacities, masses or pneumothorax. No pleural effusion. MEDIASTINUM AND HILAR STRUCTURES: No masses. Contour normal. HEART AND VASCULAR STRUCTURES: Heart normal in size. Normal vasculature. BONES: No acute findings. HARDWARE: None in the chest. OTHER: No other significant finding. IMPRESSION: No acute findings in the chest. Please note there is a demographics mismatch warning. This appears to be the same patient has on the study from 04/13/2018. TECHNICAL DOCUMENTATION: JOB ID: [id number] [employer]- All Rights Reserved Reading location - IP/workstation name: [email or web address]
--- NOTE | 2018-04-16 22:01 | EKG REPORT ---
SEVERITY:- ABNORMAL ECG - SINUS TACHYCARDIA PROBABLE INFEROLATERAL INFARCT, AGE INDETERM BORDERLINE R WAVE PROGRESSION, ANTERIOR LEADS : Confirmed by: Zakiya Francis 16-Apr-2018 22:00:53
[2018-04-16] MEDS ORDERED: NORMAL SALINE 1000 ML 1,000 ML IV ONE (22:20)
[2018-04-16] MEDS ORDERED: ONDANSETRON 4 MG TAB.RAPDIS PO ONE (22:20)
--- NOTE | 2018-04-16 22:22 | ER Document Report ---
ED Medical Screen (RME) - General Chief Complaint: Chest Pain Stated Complaint: CHEST PAIN Time Seen by Provider: 04/16/18 22:14 Notes: 32-year-old male with a history of type 1 diabetes, comes from skilled nursing for chief complaint of chest pain, he tells me that he has pain from his upper abdomen to his to his chest, burning, he has vomited several times. He states he has not eaten or had insulin today. Blood glucose checked earlier in the 400s. Denies fever or chills, denies other complaints. TRAVEL OUTSIDE OF THE [place] IN LAST 30 DAYS: No - Related Data Allergies/Adverse Reactions: No Known Allergies Allergy (Verified 04/13/18 02:08) Past Medical History - Social History Chew tobacco use (# tins/day): No Frequency of alcohol use: None Drug Abuse: None Family history: Reviewed & Not Pertinent - Past Medical History Cardiac Medical History: Reports: Hx Heart Attack - May 2017., Hx Hypertension Denies: Hx Congestive Heart Failure, Hx DVT, Hx Hypercholesterolemia, Hx Pulmonary Embolism Pulmonary Medical History: Reports: Hx Asthma - as child Denies: Hx COPD, Hx Sleep Apnea Neurological Medical History: Reports: Hx Migraine. Denies: Hx Seizures Endocrine Medical History: Reports: Hx Diabetes Mellitus Type 1. Denies: Hx Diabetes Mellitus Type 2, Hx Hyperthyroidism, Hx Hypothyroidism Renal/ Medical History: Denies: Hx Peritoneal Dialysis GI Medical History: Denies: Hx Cirrhosis, Hx Gastroesophageal Reflux Disease, Hx Hepatitis Musculoskeltal Medical History: Denies Hx Arthritis Psychiatric Medical History: Reports: Hx Anxiety, Hx Bipolar Disorder, Hx Depression, Hx Schizophrenia Infectious Medical History: Denies: Hx C-Diff, Hx Hepatitis, Hx MRSA Past Surgical History: Reports: Hx Appendectomy, Hx Oral Surgery - wisdom teeth , Other - [place] teeth extraction - Immunizations Hx Diphtheria, Pertussis, Tetanus Vaccination: Yes History of Influenza Vaccine for 06/2017 - 11/2017 Season: Refused Physical Exam - Vital signs Vitals: Temp Pulse Resp BP Pulse Ox 98.9 F 95 16 143/92 H 100 04/16/18 20:50 04/16/18 20:50 04/16/18 20:50 04/16/18 20:50 04/16/18 20:50 - Abdominal Tenderness: Tender - Mild upper abdominal tenderness Course - Re-evaluation Re-evalutation: Initial borderline tachycardia, however patient is conversational, well- appearing, no distress, no tachypnea. Workup pending. - Vital Signs Vital signs: Temp Pulse Resp BP Pulse Ox 98.9 F 95 16 143/92 H 100 04/16/18 20:50 04/16/18 20:50 04/16/18 20:50 04/16/18 20:50 04/16/18 20:50
[2018-04-16] MEDS ORDERED: NITROGLYCERIN 2% OINTMENT 1 GM PACKET TP ONE (23:38)
--- NOTE | 2018-04-16 23:38 | ER Document Report ---
ED General - General Chief Complaint: Chest Pain Stated Complaint: CHEST PAIN Time Seen by Provider: 04/16/18 22:14 Notes: Mr. Ny is a 32-year-old male who presents with complaints of not having his insulin. He was arrested earlier. Has not had his insulin all day long. Patient says he started vomiting and then started having some chest pain after he started vomiting. No fevers. No abdominal pain. He does ever previous history of MO. He had an MO one year ago when he was in DKA. He is frequently in DKA and historically has not been very compliant with his insulin. Patient says that he is recently released from [facility]. That time they give him some of his insulin but then was arrested today and has not had any insulin last 24 hours. No other complaints at this time. Patient is a very good historian is obviously noncompliant regards to his coronary disease and that the patient is unsure if he is supposed be on Plavix or aspirin. He does not take any medications in regards to his stent or history of MO. He has never followed up with a doctor after he was discharged in regards to his MO. TRAVEL OUTSIDE OF THE [place] IN LAST 30 DAYS: No - Related Data Allergies/Adverse Reactions: No Known Allergies Allergy (Verified 04/13/18 02:08) Past Medical History - Social History Smoking Status: Current Every Day Smoker Chew tobacco use (# tins/day): No Frequency of alcohol use: None Drug Abuse: None Family History: DM, Hypertension Patient has suicidal ideation: No Patient has homicidal ideation: No - Past Medical History Cardiac Medical History: Reports: Hx Heart Attack - May 2017., Hx Hypertension Denies: Hx Congestive Heart Failure, Hx DVT, Hx Hypercholesterolemia, Hx Pulmonary Embolism Pulmonary Medical History: Reports: Hx Asthma - as child Denies: Hx COPD, Hx Sleep Apnea Neurological Medical History: Reports: Hx Migraine. Denies: Hx Seizures Endocrine Medical History: Reports: Hx Diabetes Mellitus Type 1. Denies: Hx Diabetes Mellitus Type 2, Hx Hyperthyroidism, Hx Hypothyroidism Renal/ Medical History: Denies: Hx Peritoneal Dialysis GI Medical History: Denies: Hx Cirrhosis, Hx Gastroesophageal Reflux Disease, Hx Hepatitis Musculoskeletal Medical History: Denies Hx Arthritis Psychiatric Medical History: Reports: Hx Anxiety, Hx Bipolar Disorder, Hx Depression, Hx Schizophrenia Infectious Medical History: Denies: Hx C-Diff, Hx Hepatitis, Hx MRSA Past Surgical History: Reports: Hx Appendectomy, Hx Oral Surgery - wisdom teeth , Other - [place] teeth extraction - Immunizations Hx Diphtheria, Pertussis, Tetanus Vaccination: Yes Hx Pneumococcal Vaccination: 09/16/00 Review of Systems - Review of Systems Notes: My Normal Review Basic REVIEW OF SYSTEMS: CONSTITUTIONAL : Denies fever, chills, or sweats. Denies recent illness. EENT: Denies eye, ear, throat, or mouth pain or symptoms. Denies nasal or sinus congestion. CARDIOVASCULAR: Has substernal nonradiating chest pain. RESPIRATORY: Denies cough, cold, or chest congestion. Denies shortness of breath, difficulty breathing, or wheezing. GASTROINTESTINAL: Denies abdominal pain. Recurrent vomiting. GENITOURINARY: Denies difficulty urinating, painful urination, burning, frequency, or blood in urine. MUSCULOSKELETAL: Denies neck or back pain or joint pain or swelling. SKIN: Denies rash or skin lesions. NEUROLOGICAL: Denies altered mental status or loss of consciousness. Denies headache. Denies weakness or paralysis or loss of use of either side. Denies problems with gait or speech. Denies sensory or motor loss. ALL OTHER SYSTEMS REVIEWED AND NEGATIVE. Physical Exam - Vital signs Vitals: Temp Pulse Resp BP Pulse Ox 98.9 F 95 16 143/92 H 100 04/16/18 20:50 04/16/18 20:50 04/16/18 20:50 04/16/18 20:50 04/16/18 20:50 - Notes Notes: General Appearance: Well nourished, alert, cooperative, mild acute distress, no obvious discomfort. Actively vomiting on exam. Vitals: reviewed, See vital signs table. Head: no swelling or tenderness to the head Eyes: PERRL, EOMI, Conjuctiva clear Mouth: No decreasd moisture Throat: No tonsillar inflammation, No airway obstruction, No lymphadenopathy Neck: Supple, no neck tenderness, No thyromegaly Lungs: No wheezing, No rales, No rhonci, No accessory muscle use, good air exchange bilaterally. Heart: Tachycardic rate, Regular rythm, No murmur, no rub Abdomen: Normal BS, soft, No rigidity, No abdominal tenderness, No guarding, no rebound, no abdominal masses, no organomegaly Extremities: strength 5/5 in all extremities, good pulses in all extremities, no swelling or tenderness in the extremities, no edema. Skin: warm, dry, appropriate color, no rash Neuro: speech clear, oriented x 3, normal affect, responds appropriately to questions. Course - Re-evaluation Re-evalutation: 04/17/18 01:26 Patient's chest pain initially resolved the nitro. He says it started to come back and he also has a headache from the nitro. I will therefore give him some morphine. Patient's initial troponin and EKG are negative. Blood work does show evidence of early signs were beginning stages of DKA and that he does have a mild gap and acidosis as well as ketones in his urine. Continue to be tachycardic continues to have some nausea. Insulin drip is being started. Patient will receive a second liter of fluids. 04/17/18 02:20 Patient continues to complain of recurrent chest pain and continues to be tachycardic. His repeat EKG does not show any evidence of ischemic changes whatsoever. His initial troponin is negative. I will obtain a CTA of his chest. Will order more pain medicine. He is continues to have nausea and vomiting. 04/17/18 03:48 Due to patient's previous history of Annia-Horan tear and findings of on the CT scan distal esophagitis I have ordered Protonix for the patient. I suspect that this is why his pain in the lower substernal chest pain is because of all the esophagitis from the vomiting. He has not brought up any blood in his emesis since he has been down here. His emesis has been mostly yellow in color. Patient CTA of the chest did not show any evidence of aortic dissection or PE. His troponin and 2 EKGs are negative. At this time we will admit him for further treatment of DKA as well as treatment of his vomiting and pain. I did speak with the hospitalist, Dr. Roca, who agrees to dilate the patient for admission. Dictation of this chart was performed using voice recognition software; therefore, there may be some unintended grammatical errors.. - Vital Signs Vital signs: Temp Pulse Resp BP Pulse Ox 98.9 F 95 22 H 167/91 H 99 04/16/18 20:50 04/16/18 20:50 04/17/18 03:21 04/17/18 01:01 04/17/18 03:21 - Laboratory Result Diagrams: 04/16/18 23:30 04/17/18 00:33 Laboratory results interpreted by me: 04/16/18 04/16/18 04/17/18 21:25 23:30 00:33 MCH 26.5 L RDW 15.7 H Seg Neutrophils % 88.5 H Lymphocytes % 6.8 L Absolute Neutrophils 9.3 H Carbon Dioxide 19 L Anion Gap 21 H BUN 24 H Creatinine 1.44 H Est GFR (Non-Af Amer) 56 L Glucose 546 H* Direct Bilirubin 0.6 H Urine Protein 100 H Urine Glucose (UA) >=500 H Urine Ketones 80 H - EKG Interpretation by Me Additional EKG results interpreted by me: 04/16/18 23:17 EKG is reviewed and interpreted by me. EKG shows sinus tachycardia with a rate of [address] segment elevation or depression. No ischemic T-wave inversions. OR interval, QRS duration, QTc intervals are within normal range. Old EKG for comparison is from April 13, 2018. 04/17/18 02:21 EKG #2 is reviewed and interpreted by me. EKG shows sinus tachycardia with rate of [address] segment elevation or depression. No ischemic T-wave inversions. OR interval, QRS duration, QTc intervals are within normal range. Procedures - Additional Procedures peripheral IV Additional Procedures: IV insertion Notes: 04/16/18 23:[address] in right antecubital area under ultrasound guidance. Dark nonpulsatile blood withdrawn from 20 gauge angio cath. IV flushes well without complications. Discharge - Discharge Clinical Impression: Esophagitis DKA (diabetic ketoacidoses) Qualifiers: Diabetes mellitus type: type 1 Diabetes mellitus complication detail: without coma Qualified Code(s): E10.10 - Type 1 diabetes mellitus with ketoacidosis without coma Chest pain Qualifiers: Chest pain type: unspecified Qualified Code(s): R07.9 - Chest pain, unspecified Condition: Stable Disposition: ADMITTED INPATIENT Admitting Provider: Hospitalist Unit Admitted: [facility]
[2018-04-16 23:42] LABS: VENOUS BLOOD HCO3 22.3 mmol/L (20-32); VENOUS BLOOD PCO2 45.3 mmHg (35-63); VENOUS BLOOD PH 7.31 (7.30-7.42)
[2018-04-17] LABS: ABSOLUTE BASOPHILS # (AUTO) 0.1 10^3/uL (0.0-0.2); ABSOLUTE LYMPHOCYTES (AUTO) 0.7 10^3/uL (0.5-4.7); ABSOLUTE MONOCYTES (AUTO) 0.4 10^3/uL (0.1-1.4); ABSOLUTE NEUT (AUTO) 9.3 10^3/uL (1.7-8.2); BASOPHILS % (AUTO) 0.6 % (0-2); EOSINOPHILS % (AUTO) 0.1 % (0-6); HEMATOCRIT 44.8 % (37.9-51.0); HEMOGLOBIN 14.7 g/dL (13.5-17.0); LYMPHOCYTES % (AUTO) 6.8 % (13-45); MEAN CORPUSCULAR HEMOGLOBIN 26.5 pg (27.0-33.4); MEAN CORPUSCULAR HGB CONC 32.8 g/dL (32.0-36.0); MEAN CORPUSCULAR VOLUME 81 fl (80-97); PLATELET COUNT 273 10^3/uL (150-450); RED BLOOD COUNT 5.55 10^6/uL (4.35-5.55); RED CELL DISTRIBUTION WIDTH 15.7 % (11.5-14.0); SEGMENTED NEUTROPHILS % (AUTO) 88.5 % (42-78); TOTAL CELLS COUNTED % (AUTO) 100 %; WHITE BLOOD COUNT 10.5 10^3/uL (4.0-10.5)
[2018-04-17] MEDS ORDERED: GLUCAGON,HUMAN RECOMB 1 MG INJ IM PRN (00:13)
[2018-04-17] MEDS ORDERED: ASPIRIN 325 MG TABLET PO ONE (00:13)
[2018-04-17] MEDS ORDERED: NORMAL SALINE 100 ML with INSULIN REGULAR, HUMAN 100 UNIT IV PRN ×2 (00:13)
[2018-04-17] MEDS ORDERED: DEXTROSE 40% GEL 15 GM TUBE PO PRN ×2 (00:13)
[2018-04-17] MEDS ORDERED: DEXTROSE 50%-WATER 25 GM/50 ML DISP.SYRIN IV PRN ×2 (00:13)
[2018-04-17 00:45] LABS: APPEARANCE,URINE CLEAR; BILIRUBIN,URINE NEGATIVE (NEGATIVE); COLOR,URINE STRAW; GLUCOSE, URINE >=500 mg/dL (NEGATIVE); KETONES,URINE 80 mg/dL (NEGATIVE); LEUKOCYTE ESTERASE,URINE NEGATIVE (NEGATIVE); NITRITE,URINE NEGATIVE (NEGATIVE); PROTEIN,URINE 100 mg/dL (NEGATIVE); URINE SPECIFIC GRAVITY 1.021; UROBILINOGEN,URINE NEGATIVE mg/dL (<2.0)
[2018-04-17 00:52] LABS: ALANINE AMINOTRANSFERASE 29 U/L (21-72); ALBUMIN 4.2 g/dL (3.5-5.0); ALKALINE PHOSPHATASE 121 U/L (38-126); ASPARTATE AMINO TRANSFERASE 19 U/L (17-59); BILIRUBIN,DIRECT 0.6 mg/dL (0.0-0.4); BLOOD UREA NITROGEN 24 mg/dL (7-20); CALCIUM 9.3 mg/dL (8.4-10.2); CHLORIDE 99 mmol/L (98-107); LIPASE 47.8 U/L (23-300); POTASSIUM 4.8 mmol/L (3.6-5.0); TOTAL PROTEIN 7.3 g/dL (6.3-8.2)
[2018-04-17 00:57] LABS: CARBON DIOXIDE 19 mmol/L (22-30); SODIUM 138.7 mmol/L (137-145)
[2018-04-17 00:58] LABS: ANION GAP 21 (5-19); GLUCOSE 546 mg/dL (75-110)
[2018-04-17] MEDS ORDERED: INSULIN REG, HUMAN 100 UNIT/ML 3 ML VIAL (PYX) ONE (01:03)
[2018-04-17] MEDS ORDERED: MORPHINE SULFATE 10 MG/ML INJ IV ONE (01:26)
[2018-04-17] MEDS ORDERED: NORMAL SALINE 1000 ML 1,000 ML IV ONE (01:27)
[2018-04-17] MEDS ORDERED: MORPHINE SULFATE 10 MG/ML INJ ONE (01:32)
[2018-04-17] MEDS ORDERED: PROMETHAZINE HCL INJ 25 MG/1 ML VIAL IM ONE (02:02)
[2018-04-17] MEDS ORDERED: FENTANYL CITRATE INJ/PF 100 MCG/2 ML AMPUL IV ONE (02:19)
--- NOTE | 2018-04-17 03:37 | RADIOLOGY REPORT (SQ) ---
CT angiogram chest with contrast on 04/17/2018 at 3:03 AM CLINICAL INDICATION: Chest pain, tachycardia TECHNIQUE: Multiple axial images are obtained throughout the chest following the administration of IV contrast. Computer generated 3D reconstructions/MIPS were performed. This exam was performed according to our departmental dose-optimization program, which includes automated exposure control, adjustment of the mA and/or kV according to patient size and/or use of iterative reconstruction technique. Total DLP is 521.19 mGy*cm. COMPARISON: 10/26/2012 FINDINGS: There is no aortic aneurysm or dissection. Small left renal cysts are noted. There is fatty infiltration of the liver. There is a very small hiatal hernia. Limited visualized upper abdomen is otherwise unremarkable. There is some mild wall thickening of the distal esophagus most likely related to esophagitis. If clinically indicated consider follow-up upper endoscopy. There is no thoracic adenopathy. There are no filling defects within the pulmonary arteries to suggest pulmonary embolus. There is no pleural or pericardial effusion. The lungs are clear. No bony abnormality is noted. IMPRESSION: 1. No evidence of pulmonary embolus. 2. Very small hiatal hernia with some wall thickening of the distal esophagus suggesting esophagitis, consider follow-up upper endoscopy. 3. Fatty infiltration of the liver.
[2018-04-17] MEDS ORDERED: PANTOPRAZOLE SODIUM 40 MG VIAL IV ONE (03:43)
[2018-04-17] MEDS ORDERED: ASPIRIN 325 MG TABLET ONE (03:46)
[2018-04-17 04:13] LABS: URINE AMPHETAMINES SCREEN NEGATIVE; URINE BARBITURATES SCREEN NEGATIVE; URINE BENZODIAZEPINES SCREEN UNCONFIRMED POSITIVE; URINE COCAINE SCREEN NEGATIVE; URINE MARIJUANA (THC) SCREEN NEGATIVE; URINE METHADONE SCREEN NEGATIVE; URINE PHENCYCLIDINE SCREEN NEGATIVE
[2018-04-17 06:15] LABS: BLOOD UREA NITROGEN 29 mg/dL (7-20); CALCIUM 9.4 mg/dL (8.4-10.2); CHLORIDE 100 mmol/L (98-107); GLUCOSE 351 mg/dL (75-110); POTASSIUM 4.5 mmol/L (3.6-5.0)
[2018-04-17 06:20] LABS: CARBON DIOXIDE 21 mmol/L (22-30); SODIUM 142.4 mmol/L (137-145)
[2018-04-17 06:21] LABS: ANION GAP 21 (5-19)
[2018-04-17] MEDS ORDERED: ONDANSETRON HCL INJ/PF 4 MG/2 ML SDV IV PRN (06:44)
[2018-04-17] MEDS ORDERED: NORMAL SALINE 1000 ML 1,000 ML IV PRN ×2 (06:44→17:19)
[2018-04-17] MEDS ORDERED: IPRATROPIUM/ALBUTEROL 0.5-2.5 MG/3 ML AMPUL NEB PRN (06:44)
[2018-04-17] MEDS ORDERED: ACETAMINOPHEN 325 MG TABLET PO PRN (06:44)
[2018-04-17] MEDS ORDERED: KETOROLAC TROMETHAMINE INJ/PF 30 MG/1 ML SDV IV ONE (06:49)
--- NOTE | 2018-04-17 06:58 | PDOC H&P ---
History of Present Illness Admission Date/PCP: 04/17/18 04:14 None Patient complains of: Chest pain, vomiting, hyperglycemia History of Present Illness: LENA SCHULZ is a 32 year old male with past medical history of [place], diabetes on insulin, substance abuse was brought to the emergency room from retirement for evaluation of chest pain and nausea vomiting and hyperglycemia. Patient is very noncompliant to his medication including insulin. He was arrested yesterday for missing court date. Patient started complaining of chest pain; he has not taken his insulin so he was hypoglycemic. Patient had an episode of vomiting without hematemesis. Patient denies shortness of breath or abdominal pain or cough or fever chills. On arrival to emergency room patient was tachycardic but afebrile. His EKG shows sinus tachycardia without significant ST changes. His troponin was negative. Chest x-ray was unremarkable. CT angiography chest and abdomen was done which shows no evidence of PE however shows distal esophagitis. Patient's glucose was very high with mild DKA. Patient was started on insulin drip and was referred to hospital service for admission. Past Medical History Cardiac Medical History: Reports: Myocardial Infarction - May 2017., Hypertension Denies: Congestive Heart Failure, DVT, Hyperlipidema, Pulmonary Embolism Pulmonary Medical History: Reports: Asthma - as child Denies: Chronic Obstructive Pulmonary Disease (COPD), Sleep Apnea Neurological Medical History: Reports: Migraine Denies: Seizures Endocrine Medical History: Reports: Diabetes Mellitus Type 1 Denies: Diabetes Mellitus Type 2, Hyperthyroidism, Hypothyroidism GI Medical History: Denies: Cirrhosis, Gastroesophageal Reflux Disease, Hepatitis Musculoskeltal Medical History: Denies: Arthritis Psychiatric Medical History: Reports: Bipolar Disorder, Depression Hematology: Reports: Anemia Infectious Medical History: Denies: Clostridium Difficile, Methicillin-Resistant Staph Aureus Past Surgical History Past Surgical History: Reports: Appendectomy, Other - [place] teeth extraction Social History Information Source: Patient Smoking Status: Current Every Day Smoker Frequency of Alcohol Use: None Hx Recreational Drug Use: No Drugs: Cocaine Hx Prescription Drug Abuse: Yes - oxycodone Family History Family History: DM, Hypertension Parental Family History Reviewed: No Children Family History Reviewed: No Sibling(s) Family History Reviewed.: No Medication/Allergy Home Medications: Hydrocortisone [Hydrocortisone 0.5% Cream 28.35 gm] 1 applic TP Q8 tube Insulin Glargine,Hum.rec.anlog [Lantus Insulin 100 Unit/mL] 20 unit SUBCUT Q12 # 10 ml 11/30/17 Insulin Lispro [Humalog Insulin (Lispro) 100 unit/mL] 0 - 12 unit SUBCUT ACHSP PRN #1 ml 11/30/17 Metoprolol Succinate [Toprol Xl 50 mg Tab.sr] 50 mg PO Q12 #30 tab.sr.24h Oxycodone HCl [Oxy-Ir 5 mg Tablet] 15 mg PO Q6HP PRN #10 tablet 11/30/17 Pantoprazole Sodium [Protonix] 40 mg PO BID #60 tablet. 11/30/17 Allergies/Adverse Reactions: No Known Allergies Allergy (Verified 04/13/18 02:08) Review of Systems All systems: reviewed and no additional remarkable complaints except as stated Physical Exam Vital Signs: Temp Pulse Resp BP Pulse Ox 98.9 F 95 18 161/89 H 98 04/16/18 20:50 04/16/18 20:50 04/17/18 04:24 04/17/18 04:24 04/17/18 04:24 General appearance: PRESENT: no acute distress, cooperative, well-developed, well-nourished Head exam: PRESENT: atraumatic, normocephalic Eye exam: ABSENT: conjunctival injection, conjunctiva pink, conjunctiva pale, EOMI, nystagmus, periorbital swelling, PERRLA, scleral icterus, other Ear exam: ABSENT: bleeding, drainage, normal external ear exam, TM's normal bilaterally, other Mouth exam: PRESENT: moist Neck exam: ABSENT: carotid bruit, JVD Respiratory exam: PRESENT: clear to auscultation juan ramon. ABSENT: crackles, wheezes Cardiovascular exam: PRESENT: +S1, +S2, tachycardia. ABSENT: gallop, rubs, systolic murmur Vascular exam: PRESENT: normal capillary refill GI/Abdominal exam: PRESENT: normal bowel sounds, soft. ABSENT: organolmegaly, tenderness Rectal exam: PRESENT: deferred Gentrourinary exam: ABSENT: ecchymosis, erythema, lacerations, lesions, scrotal swelling, testicular tenderness, urethral discharge, indwelling catheter, other Extremities exam: ABSENT: calf tenderness, clubbing, full ROM, joint swelling, pedal edema, tenderness, +1 edema, +2 edema, other Musculoskeletal exam: PRESENT: ambulatory Neurological exam: PRESENT: alert, altered, awake, oriented to person, oriented to place, oriented to time, oriented to situation Psychiatric exam: ABSENT: homicidal ideation, suicidal ideation Skin exam: ABSENT: rash Results Laboratory Results: All labs reviewed 04/17/18 05:20 04/17/18 05:20 Sodium 142.4 Potassium 4.5 Chloride 100 Carbon Dioxide 21 L Anion Gap 21 H BUN 29 H Creatinine 1.55 H Est GFR ( Amer) > 60 Est GFR (Non-Af Amer) 52 L Glucose 351 H All labs reviewed calcium 9.4 EKG Comments: Personally reviewed by me shows normal sinus rhythm with nonspecific ST-T changes Impressions: Chest X-Ray 04/16/18 20:36 IMPRESSION: No acute findings in the chest. Please note there is a demographics mismatch warning. This appears to be the same patient has on the study from 04/13/2018. Chest/Abdomen CTA 04/17/18 02:19 IMPRESSION: 1. No evidence of pulmonary embolus. 2. Very small hiatal hernia with some wall thickening of the distal esophagus suggesting esophagitis, consider follow-up upper endoscopy. 3. Fatty infiltration of the liver. Status: Image reviewed by me Assessment & Plan - Diagnosis (1) Chest pain Qualifiers: Chest pain type: unspecified Qualified Code(s): R07.9 - Chest pain, unspecified Is this a current diagnosis for this admission?: Yes Plan: Patient with atypical chest pain which is reproducible on exam; patient also has changes of distal esophagitis on CT. Less likely cardiac. We will admit patient for observation status and rule out ACS with serial cardiac enzymes. Continue PPI. (2) DKA (diabetic ketoacidoses) Qualifiers: Diabetes mellitus type: type 1 Diabetes mellitus complication detail: without coma Qualified Code(s): E10.10 - Type 1 diabetes mellitus with ketoacidosis without coma Is this a current diagnosis for this admission?: Yes Plan: Patient is noncompliant with insulin; will continue DKA protocol with insulin drip and IV fluid. (3) Esophagitis Is this a current diagnosis for this admission?: Yes Plan: Continue PPI. No hematemesis. Consider GI evaluation if not improved. (4) CAD (coronary artery disease) Qualifiers: Coronary Disease-Associated Artery/Lesion type: unspecified vessel or lesion type Associated angina: with unspecified angina Is this a current diagnosis for this admission?: No - Time Time Spent: 30 to 50 Minutes - Inpatient Certification Based on my medical assessment, after consideration of the patient's comorbidities, presenting symptoms, or acuity I expect that the services needed warrant INPATIENT care.: No I certify that my determination is in accordance with my understanding of Medicare's requirements for reasonable and necessary INPATIENT services [42 CFR 412.3e].: No
--- NOTE | 2018-04-17 09:24 | EKG REPORT ---
SEVERITY:- ABNORMAL ECG - SINUS TACHYCARDIA : Confirmed by: Zakiya Francis 17-Apr-2018 09:23:49
[2018-04-17] MEDS ORDERED: LIDOCAINE 2% VISCOUS SOLN 20 ML UDCUP PO ONE (09:30)
[2018-04-17] MEDS ORDERED: MAG HYDROX/AL HYDROX/SIMETH SUSP 30 ML UDCUP PO ONE (09:30)
[2018-04-17] MEDS ORDERED: METOCLOPRAMIDE HCL ORAL SOLN 10 MG/10 ML UDCUP PO ONE (09:30)
[2018-04-17] MEDS ORDERED: ENOXAPARIN SODIUM INJ 40 MG/0.4 ML DISP.SYRIN SUBCUT SCH (10:00)
[2018-04-17] MEDS ORDERED: PANTOPRAZOLE SODIUM 40 MG VIAL IV SCH (10:00)
[2018-04-17 15:14] VITALS: BP 146/83
[2018-04-17] MEDS ORDERED: INSULIN LISPRO 100 UNIT/ML 3 ML VIAL SUBCUT PRN (15:50)
[2018-04-17] MEDS ORDERED: INSULIN GLARGINE,HUM.REC.ANLOG 1,000 UNIT/10 ML UNIT SUBCUT SCH (16:00)
[2018-04-17 16:28] LABS: ANION GAP 9 (5-19); BLOOD UREA NITROGEN 30 mg/dL (7-20); CALCIUM 8.5 mg/dL (8.4-10.2); CARBON DIOXIDE 27 mmol/L (22-30); CHLORIDE 102 mmol/L (98-107); GLUCOSE 228 mg/dL (75-110); POTASSIUM 4.1 mmol/L (3.6-5.0); SODIUM 138.3 mmol/L (137-145)
[2018-04-17] MEDS ORDERED: INSULIN GLARGINE,HUM.REC.ANLOG 300 UNIT/3 ML INSULN.PEN SUBCUT SCH (17:00)
[2018-04-17] MEDS ORDERED: (PENDING PHARMACY ID) (Quetiapine Fumarate [Seroquel] 400 MG) PO SCH (18:00)
[2018-04-17] MEDS ORDERED: METOPROLOL SUCCINATE 50 MG TAB.SR.24H PO SCH (22:00)
[2018-04-17] MEDS ORDERED: QUETIAPINE FUMARATE 100 MG TABLET PO SCH (22:00)
[2018-04-17] MEDS ORDERED: TRAZODONE HCL 50 MG TABLET PO SCH (22:00)
--- NOTE | 2018-04-19 19:04 | PDOC DISCHARGE SUMMARY ---
General - Admit/Disc Date/PCP Admission Date/Primary Care Provider: 04/17/18 04:14 Discharge Date: 04/17/18 - Discharge Diagnosis (1) Chest pain Is this a current diagnosis for this admission?: Yes Summary: The patient was admitted with atypical chest pain, which was reproducible on exam. Etiology is most likely esophagitis related to nausea and vomiting during DKA; low suspicion for ACS. HEART score 1. He was placed in observational status to further rule out with serial cardiac enzymes. EKG demonstrated sinus tachycardia without significant ST changes. Chest x-ray was unremarkable. CT of the chest and abdomen was negative for PE but did demonstrate distal esophagitis. At time of discharge, the patient was chest pain-free, maintaining oxygen saturations on room air, and tolerating a consistent carb diet. He was discharged home with recommendations to continue his previously prescribed Protonix; he was also advised that he may consider initiating low- dose aspirin for heart prevention. He was strongly encouraged to discontinue smoking. (2) DKA (diabetic ketoacidoses) Is this a current diagnosis for this admission?: Yes Summary: The patient was admittedly noncompliant with his insulin. He was noted to have mild DKA; bicarb 19, anion gap 21, glucose 546. He was provided IV fluids for resuscitation and placed on an insulin drip. His gap rapidly closed and his home dose Lantus was resumed. He denied need for refills of his Lantus, Humalog, pen needles, glucometer meter , test strips, or lancets. He was instructed to resume is previously prescribed insulin doses, follow a consistent carb diet, and to follow up with his primary care provider within 1 week. (3) Esophagitis Is this a current diagnosis for this admission?: Yes Summary: Noted by CTA of the chest and abdomen. Recommend that he continue his previously prescribed Protonix. Discussed lifestyle changes to reduce symptoms; discontinue EtOH, tobacco use, decrease high fat and acidic foods. Do not lie down within 1 hour of eating and consider elevating the head of the bed 2 inches. (4) Tobacco dependency Is this a current diagnosis for this admission?: Yes Summary: Smoking cessation is encouraged. - Additional Information Discharge Diet: Cardiac, Diabetic Discharge Activity: Activity As Tolerated Prescriptions: Aspirin [Children's Aspirin] 81 mg PO DAILY #90 tab.chew Nicotine [Nicoderm 21 mg/24 Hr Transderm Patch] 1 patch TD DAILY #30 patch.td24 Home Medications: Acetaminophen [Tylenol 325 mg Tablet] 650 mg PO Q4HP PRN tablet 04/17/18 Aspirin [Children's Aspirin] 81 mg PO DAILY #90 tab.chew 04/17/18 Insulin Glargine,Hum.rec.anlog [Lantus Insulin 100 Unit/1 ml 10 ml] 35 unit SQ DAILY 04/17/18 Insulin Lispro [Humalog Insulin (Lispro) 100 unit/mL] 5 unit SQ AC 04/17/18 Insulin Lispro [Humalog Insulin (Lispro) 100 unit/mL] See Protocol SQ AC Metoprolol Succinate [Toprol Xl 50 mg Tab.sr] 50 mg PO Q12 04/17/18 Nicotine [Nicoderm 21 mg/24 Hr Transderm Patch] 1 patch TD DAILY #30 patch.td24 04/17/18 Pantoprazole Sodium [Protonix] 40 mg PO BID 04/17/18 Quetiapine Fumarate [Seroquel] 400 mg PO BID 04/17/18 Trazodone HCl [Desyrel 50 mg Tablet] 50 mg PO QHS 04/17/18 History of Present Illness History of Present Illness: Per H&P by Dr. Roca: LENA SCHULZ is a 32 year old male with past medical history of [place], diabetes on insulin, substance abuse was brought to the emergency room from [facility] for evaluation of chest pain and nausea vomiting and hyperglycemia. Patient is very noncompliant to his medication including insulin. He was arrested yesterday for missing court date. Patient started complaining of chest pain; he has not taken his insulin so he was hypoglycemic. Patient had an episode of vomiting without hematemesis. Patient denies shortness of breath or abdominal pain or cough or fever chills. On arrival to emergency room patient was tachycardic but afebrile. His EKG shows sinus tachycardia without significant ST changes. His troponin was negative. Chest x-ray was unremarkable. CT angiography chest and abdomen was done which shows no evidence of PE however shows distal esophagitis. Patient's glucose was very high with mild DKA. Patient was started on insulin drip and was referred to hospital service for admission. Physical Exam Vital Signs: Temp Pulse Resp BP Pulse Ox 98.5 F 89 20 146/83 H 100 04/17/18 13:23 08/02/18 12:36 04/17/18 17:00 04/17/18 15:00 04/17/18 17:00 Intake & Output 04/18/18 04/19/18 04/20/18 06:59 06:59 06:59 Intake Total 1961 Output Total 1000 Balance 961 General appearance: PRESENT: no acute distress, well-developed, well-nourished Head exam: PRESENT: atraumatic, normocephalic Eye exam: PRESENT: conjunctiva pink, EOMI, PERRLA. ABSENT: scleral icterus Ear exam: PRESENT: normal external ear exam Mouth exam: PRESENT: moist, tongue midline Neck exam: ABSENT: carotid bruit, JVD, lymphadenopathy, thyromegaly Respiratory exam: PRESENT: clear to auscultation juan ramon. ABSENT: rales, rhonchi, wheezes Cardiovascular exam: PRESENT: RRR. ABSENT: diastolic murmur, rubs, systolic murmur Pulses: PRESENT: normal dorsalis pedis pul Vascular exam: PRESENT: normal capillary refill GI/Abdominal exam: PRESENT: normal bowel sounds, soft. ABSENT: distended, guarding, mass, organolmegaly, rebound, tenderness Rectal exam: PRESENT: deferred Extremities exam: PRESENT: full ROM. ABSENT: calf tenderness, clubbing, pedal edema Neurological exam: PRESENT: alert, awake, oriented to person, oriented to place , oriented to time, oriented to situation, CN II-XII grossly intact. ABSENT: motor sensory deficit Psychiatric exam: PRESENT: agitated, appropriate affect. ABSENT: homicidal ideation, suicidal ideation Skin exam: PRESENT: dry, intact, warm. ABSENT: cyanosis, rash Results Laboratory Results: 04/17/18 13:10 04/17/18 04/17/18 07:10 13:10 Troponin I < 0.012 < 0.012 Impressions: Chest X-Ray 04/16/18 20:36 IMPRESSION: No acute findings in the chest. Please note there is a demographics mismatch warning. This appears to be the same patient has on the study from 04/13/2018. Chest/Abdomen CTA 04/17/18 02:19 IMPRESSION: 1. No evidence of pulmonary embolus. 2. Very small hiatal hernia with some wall thickening of the distal esophagus suggesting esophagitis, consider follow-up upper endoscopy. 3. Fatty infiltration of the liver. Qualifiers - * PATIENT BEING DISCHARGED WITH ANY OF THE FOLLOWING DIAGNOSIS: No Plan Discharge Plan: Discharge to home with self-care. Follow-up with primary care provider within 1 week. Time Spent: Less than 30 Minutes
== END 2018-04-17 18:26 | disposition home or self-care (01) ==
LOC: ER 20:34 → EH 04-17 04:14 → INTOOBSV 04-17 04:14
PROVIDERS: ADMIT Internal Medicine; ATTEND Internal Medicine
DX: R07.89 Other chest pain (principal); E10.10 Type 1 diabetes mellitus with ketoacidosis without coma; F17.200 Nicotine dependence, unspecified, uncomplicated; K20.9 Esophagitis, unspecified; R00.0 Tachycardia, unspecified; K44.9 Diaphragmatic hernia without obstruction or gangrene; K76.0 Fatty (change of) liver, not elsewhere classified; I25.119 Atherosclerotic heart disease of native coronary artery with unspecified angina pectoris; G44.40 Drug-induced headache, not elsewhere classified, not intractable; T46.3X5A Adverse effect of coronary vasodilators, initial encounter; Y92.239 Unspecified place in hospital as the place of occurrence of the external cause; I25.2 Old myocardial infarction; Z95.5 Presence of coronary angioplasty implant and graft; Z91.19 Patient's noncompliance with other medical treatment and regimen; Z90.49 Acquired absence of other specified parts of digestive tract; Z82.49 Family history of ischemic heart disease and other diseases of the circulatory system; Z87.19 Personal history of other diseases of the digestive system
CPT/HCPCS: 93005 ×2; 99291; 96360; 36415 ×2; 82962; 83690; 83735; 85025; 80048; 80053; 81001; 84484 ×2; 80307; 82803; 71045; 71275; 93010 ×2; G0378; S0119; J3010; J1815; J1885; J2270; J1650; S0164; J2550; J7030 ×2

== ENCOUNTER 2018-04-25 02:53 | Emergency (ER) | payer MEDICAID ==
[2018-04-25] MEDS ORDERED: ASPIRIN 81 MG TABLET, CHEWABLE PO ONE (04:37)
--- NOTE | 2018-04-25 04:39 | ER Document Report ---
ED Medical Screen (RME) - General Chief Complaint: High Blood Sugar Stated Complaint: BLOOD SUGAR ISSUE Time Seen by Provider: 04/25/18 04:33 Mode of Arrival: Wheelchair Information source: Patient Notes: Patient is a 32-year-old male with past medical history of insulin-dependent diabetes who reports complaining of vomiting, chest pain and urinary frequency. Patient reports he checked his blood sugar at home and it read high. Patient reports all the symptoms started at 2300 last night. Exam: Patient alert, oriented and cooperative. Lung sounds clear to auscultation bilaterally. Abdomen soft, nontender. I have greeted and performed a rapid initial assessment of this patient. A comprehensive ED assessment and evaluation of the patient, analysis of test results and completion of the medical decision making process will be conducted by additional ED providers. Dictation of this chart was performed using voice recognition software; therefore, there may be some unintended grammatical errors. TRAVEL OUTSIDE OF THE [place] IN LAST 30 DAYS: No - Related Data Allergies/Adverse Reactions: No Known Allergies Allergy (Verified 04/13/18 02:08) Past Medical History - Social History Family history: Reviewed & Not Pertinent - Past Medical History Cardiac Medical History: Reports: Hx Heart Attack - May 2017., Hx Hypertension Denies: Hx Congestive Heart Failure, Hx DVT, Hx Hypercholesterolemia, Hx Pulmonary Embolism Pulmonary Medical History: Reports: Hx Asthma - as child Denies: Hx COPD, Hx Sleep Apnea Neurological Medical History: Reports: Hx Migraine. Denies: Hx Seizures Endocrine Medical History: Reports: Hx Diabetes Mellitus Type 1. Denies: Hx Diabetes Mellitus Type 2, Hx Hyperthyroidism, Hx Hypothyroidism Renal/ Medical History: Denies: Hx Peritoneal Dialysis GI Medical History: Denies: Hx Cirrhosis, Hx Gastroesophageal Reflux Disease, Hx Hepatitis Musculoskeltal Medical History: Denies Hx Arthritis Psychiatric Medical History: Reports: Hx Anxiety, Hx Bipolar Disorder, Hx Depression, Hx Schizophrenia Infectious Medical History: Denies: Hx C-Diff, Hx Hepatitis, Hx MRSA Past Surgical History: Reports: Hx Appendectomy, Hx Oral Surgery - wisdom teeth , Other - [place] teeth extraction - Immunizations Hx Diphtheria, Pertussis, Tetanus Vaccination: Yes History of Influenza Vaccine for 06/2017 - 11/2017 Season: Refused Physical Exam - Vital signs Vitals: Temp Pulse Resp BP Pulse Ox 99.0 F 140 H 18 137/84 H 97 04/25/18 03:03 04/25/18 03:03 04/25/18 03:03 04/25/18 03:03 04/25/18 03:03 Course - Vital Signs Vital signs: Temp Pulse Resp BP Pulse Ox 99.0 F 140 H 18 137/84 H 97 04/25/18 03:03 04/25/18 03:03 04/25/18 03:03 04/25/18 03:03 04/25/18 03:03
[2018-04-25 06:21] LABS: VENOUS BLOOD BASE EXCESS 1.7 mmol/L; VENOUS BLOOD HCO3 27.9 mmol/L (20-32); VENOUS BLOOD PCO2 49.8 mmHg (35-63); VENOUS BLOOD PH 7.37 (7.30-7.42)
[2018-04-25 06:24] LABS: APPEARANCE,URINE CLEAR; BILIRUBIN,URINE NEGATIVE (NEGATIVE); COLOR,URINE COLORLESS; GLUCOSE, URINE >=500 mg/dL (NEGATIVE); KETONES,URINE TRACE mg/dL (NEGATIVE); LEUKOCYTE ESTERASE,URINE NEGATIVE (NEGATIVE); NITRITE,URINE NEGATIVE (NEGATIVE); PROTEIN,URINE 30 mg/dL (NEGATIVE); URINE SPECIFIC GRAVITY 1.021; UROBILINOGEN,URINE NEGATIVE mg/dL (<2.0)
[2018-04-25 06:33] LABS: ABSOLUTE LYMPHOCYTES (AUTO) 0.8 10^3/uL (0.5-4.7); ABSOLUTE MONOCYTES (AUTO) 0.5 10^3/uL (0.1-1.4); ABSOLUTE NEUT (AUTO) 7.6 10^3/uL (1.7-8.2); BASOPHILS % (AUTO) 0.5 % (0-2); EOSINOPHILS % (AUTO) 0.2 % (0-6); HEMATOCRIT 42.4 % (37.9-51.0); HEMOGLOBIN 13.3 g/dL (13.5-17.0); LYMPHOCYTES % (AUTO) 8.7 % (13-45); MEAN CORPUSCULAR HEMOGLOBIN 26.4 pg (27.0-33.4); MEAN CORPUSCULAR HGB CONC 31.5 g/dL (32.0-36.0); MEAN CORPUSCULAR VOLUME 84 fl (80-97); MONOCYTES % (AUTO) 5.6 % (3-13); PLATELET COUNT 301 10^3/uL (150-450); RED BLOOD COUNT 5.05 10^6/uL (4.35-5.55); RED CELL DISTRIBUTION WIDTH 15.9 % (11.5-14.0); TOTAL CELLS COUNTED % (AUTO) 100 %; WHITE BLOOD COUNT 8.9 10^3/uL (4.0-10.5)
[2018-04-25 06:40] LABS: ALANINE AMINOTRANSFERASE 23 U/L (21-72); ALBUMIN 3.9 g/dL (3.5-5.0); ALKALINE PHOSPHATASE 115 U/L (38-126); ANION GAP 16 (5-19); ASPARTATE AMINO TRANSFERASE 18 U/L (17-59); BILIRUBIN,DIRECT 0.5 mg/dL (0.0-0.4); BLOOD UREA NITROGEN 20 mg/dL (7-20); CALCIUM 9.5 mg/dL (8.4-10.2); CARBON DIOXIDE 25 mmol/L (22-30); CHLORIDE 93 mmol/L (98-107); CREATINE KINASE 174 U/L (55-170); LIPASE 144.1 U/L (23-300); POTASSIUM 5.2 mmol/L (3.6-5.0); SODIUM 134.3 mmol/L (137-145)
[2018-04-25] MEDS ORDERED: NORMAL SALINE 1000 ML 2,000 ML IV ONE (06:42)
[2018-04-25] MEDS ORDERED: ONDANSETRON HCL INJ/PF 4 MG/2 ML SDV IV ONE ×2 (06:42→09:26)
[2018-04-25 06:51] LABS: CREATINE KINASE MB 1.14 ng/mL (<4.55)
[2018-04-25 06:52] LABS: TROPONIN I < 0.012 ng/mL
[2018-04-25 06:59] LABS: GLUCOSE 984 mg/dL (75-110)
--- NOTE | 2018-04-25 06:59 | RADIOLOGY REPORT (SQ) ---
EXAM DESCRIPTION: XR CHEST 2 VIEWS COMPLETED DATE/TME: 04/25/2018 04:35 CLINICAL HISTORY: 32 years Male, chest pain COMPARISON: None. FINDINGS: Adequate lung volume, clear parenchyma, normal cardiac silhouette, and grossly intact bony thorax. IMPRESSION: No acute cardiopulmonary findings.
--- NOTE | 2018-04-25 07:19 | ER Document Report ---
ED Blood Sugar Problem - General Mode of Arrival: Wheelchair Information source: Patient TRAVEL OUTSIDE OF THE [place] IN LAST 30 DAYS: No <RUDI POWELL - Last Filed: 04/25/18 10:09> <SANGEETHA GOEL - Last Filed: 04/25/18 11:13> - General Chief Complaint: High Blood Sugar Stated Complaint: BLOOD SUGAR ISSUE Time Seen by Provider: 04/25/18 04:33 Notes: 32-year-old male who presents to the emergency department today with complaints of uncontrolled blood glucose levels. Patient was [facility] from [facility] yesterday and he "was not given his insulin" so he has not had any insulin since yesterday at the assisted. Patient states he was put in correction because he missed a court date. Patient requesting pain meds for chest pain as well. ( RUDI POWELL) - Related Data Allergies/Adverse Reactions: No Known Allergies Allergy (Verified 04/13/18 02:08) Past Medical History - General Information source: Patient - Social History Smoking Status: Current Every Day Smoker Cigarette use (# per day): Yes Chew tobacco use (# tins/day): No Frequency of alcohol use: None Drug Abuse: None Lives with: Family Family History: Reviewed & Not Pertinent, DM, Hypertension Patient has suicidal ideation: No Patient has homicidal ideation: No - Past Medical History Cardiac Medical History: Reports: Hx Heart Attack - May 2017., Hx Hypertension Pulmonary Medical History: Reports: Hx Asthma - as child Neurological Medical History: Reports: Hx Migraine Endocrine Medical History: Reports: Hx Diabetes Mellitus Type 1 Psychiatric Medical History: Reports: Hx Anxiety, Hx Bipolar Disorder, Hx Depression, Hx Schizophrenia Past Surgical History: Reports: Hx Appendectomy, Hx Oral Surgery - wisdom teeth , Other - [place] teeth extraction - Immunizations Hx Diphtheria, Pertussis, Tetanus Vaccination: Yes Hx Pneumococcal Vaccination: 09/16/00 <RUDI POWELL - Last Filed: 04/25/18 10:09> Review of Systems - Review of Systems Constitutional: See HPI, Other - Uncontrolled diabetes EENT: No symptoms reported Cardiovascular: See HPI, Chest pain Respiratory: No symptoms reported Gastrointestinal: No symptoms reported Genitourinary: No symptoms reported Male Genitourinary: No symptoms reported Musculoskeletal: No symptoms reported Skin: No symptoms reported Hematologic/Lymphatic: No symptoms reported Neurological/Psychological: No symptoms reported -: Yes All other systems reviewed and negative <RUDI POWELL - Last Filed: 04/25/18 10:09> Physical Exam <RUDI POWELL - Last Filed: 04/25/18 10:09> <SANGEETHA GOEL - Last Filed: 04/25/18 11:13> - Vital signs Vitals: Temp Pulse Resp BP Pulse Ox 99.0 F 140 H 18 137/84 H 97 04/25/18 03:03 04/25/18 03:03 04/25/18 03:03 04/25/18 03:03 04/25/18 03:03 - Notes Notes: Physical Exam: General: Alert, appears well. No ketones can be smelled on breath. Requesting pain meds for chest pain. HEENT: Normocephalic. Atraumatic. PERRL. Extraocular movements intact. Oropharynx clear. Neck: Supple. Non-tender. Respiratory: No respiratory distress. Not tachypneic. Clear and equal breath sounds bilaterally. Cardiovascular: Regular rate and rhythm. Abdominal: Normal Inspection. Non-tender. No distension. Normal Bowel Sounds. Back: Non-tender. No deformity or step off. Extremities: Moves all four extremities. Upper extremities: Normal inspection. Normal ROM. Lower extremities: Normal inspection. No edema. Normal ROM. Neurological: Normal cognition. AAOx4. Normal speech. Psychological: Normal affect. Normal Mood. Skin: Warm. Dry. Normal color. (ANDRERUDI) Course - Laboratory Result Diagrams: 04/25/18 06:00 04/25/18 06:00 <ANDRERUDI - Last Filed: 04/25/18 10:09> - Laboratory Result Diagrams: 04/25/18 06:00 04/25/18 06:00 <SANGEETHA GOEL - Last Filed: 04/25/18 11:13> - Re-evaluation Re-evalutation: 04/25/18 11:09 Patient's blood sugars now down to 498. He is upset about being discharged claiming he should not be sent home with such high blood sugars. This was before the repeat Accu-Chek showed his sugar was down below 500. I advised the patient that we really do not want to bring his blood sugar down much more for the next few hours as it is not safe to rapidly lower blood sugars. I again reiterated that he has prescriptions for his blood pressure medications and his Lantus and lispro. He should take the medications today, he should drink plenty of fluids. He has not been vomiting, he is not ketoacidotic. (SANGEETHA GOEL) - Vital Signs Vital signs: Temp Pulse Resp BP Pulse Ox 99.0 F 140 H 20 165/99 H 99 04/25/18 03:03 04/25/18 03:03 04/25/18 10:01 04/25/18 10:01 04/25/18 10:01 - Laboratory Laboratory results interpreted by me: 04/25/18 04/25/18 04/25/18 02:59 05:35 06:00 Hgb 13.3 L MCH 26.4 L MCHC 31.5 L RDW 15.9 H Seg Neutrophils % 85.0 H Lymphocytes % 8.7 L Sodium Potassium Chloride Creatinine Est GFR ( Amer) Est GFR (Non-Af Amer) Glucose POC Glucose > 550 H* Direct Bilirubin Creatine Kinase Urine Protein 30 H Urine Glucose (UA) >=500 H Urine Ketones TRACE H 04/25/18 06:00 Hgb MCH MCHC RDW Seg Neutrophils % Lymphocytes % Sodium 134.3 L Potassium 5.2 H Chloride 93 L Creatinine 1.81 H Est GFR ( Amer) 53 L Est GFR (Non-Af Amer) 43 L Glucose 984 H* POC Glucose Direct Bilirubin 0.5 H Creatine Kinase 174 H Urine Protein Urine Glucose (UA) Urine Ketones Discharge <RUDI POWELL - Last Filed: 04/25/18 10:09> <SANGEETHA GOEL - Last Filed: 04/25/18 11:13> - Discharge Clinical Impression: Hyperglycemia, Has run out of medications, Renal insufficiency High blood pressure Qualifiers: Hypertension type: essential hypertension Qualified Code(s): I10 - Essential ( primary) hypertension Condition: Stable Disposition: HOME, SELF-CARE Additional Instructions: You were given prescriptions for the your Lantus, lispro, and metoprolol. You should be sure to take your insulin today, and drink plenty of fluids. You should follow-up with your local medical doctor in the next 1-2 weeks to get reestablished as a patient. RETURN TO THE EMERGENCY ROOM IF ANY NEW OR WORSENING SYMPTOMS. Prescriptions: Insulin Glargine,Hum.rec.anlog [Lantus Insulin 100 Unit/1 ml 10 ml] 35 unit SUBCUT DAILY #10 ml Insulin Lispro [Humalog Insulin (Lispro) 100 unit/mL] 5 unit SQ AC #5 ml Metoprolol Tartrate 50 mg PO Q12 #60 tablet Scribe Attestation: 04/25/18 08:08 I personally performed the services described in the documentation, reviewed and edited the documentation which was dictated to the scribe in my presence, and it accurately records my words and actions. (SANGEETHA GOEL) Scribe Documentation - Scribe Written by Matteo:: Matteo Whiting, 04/25/2018 1011 acting as scribe for :: Thomas <RUDI POWELL - Last Filed: 04/25/18 10:09>
[2018-04-25] MEDS ORDERED: INSULIN REG, HUMAN 100 UNIT/ML 3 ML VIAL (PYX) IV ONE (07:20)
[2018-04-25] MEDS ORDERED: NORMAL SALINE 1000 ML 1,000 ML IV ONE (08:58)
--- NOTE | 2018-04-25 09:58 | EKG REPORT ---
SEVERITY:- OTHERWISE NORMAL ECG - SINUS TACHYCARDIA : Confirmed by: Arin Drummond MD 25-Apr-2018 09:56:52
[2018-04-25] MEDS ORDERED: METOPROLOL TARTRATE 50 MG TABLET PO ONE (11:07)
[2018-04-25] MEDS ORDERED: METOPROLOL TARTRATE PF/INJ 5 MG/5 ML SDV IV ONE (11:07)
[2018-04-25 11:27] VITALS: BP 166/110
== END 2018-04-25 11:27 | disposition home or self-care (01) ==
LOC: ER 02:53
DX: E10.65 Type 1 diabetes mellitus with hyperglycemia (principal); T38.3X6A Underdosing of insulin and oral hypoglycemic [antidiabetic] drugs, initial encounter; Z91.128 Patient's intentional underdosing of medication regimen for other reason; Y92.149 Unspecified place in prison as the place of occurrence of the external cause; Z91.14 Patient's other noncompliance with medication regimen; N28.9 Disorder of kidney and ureter, unspecified; R07.9 Chest pain, unspecified; F17.210 Nicotine dependence, cigarettes, uncomplicated; I10 Essential (primary) hypertension; I25.2 Old myocardial infarction
CPT/HCPCS: 93005; 96376; 99285; 96361; 96374; 96375; 36415; 82553; 82962; 82550; 83690; 85025; 80053; 81001; 84484; 82803; 71046; 93010; J3490 ×2; J1815; J2405; J7030

== ENCOUNTER 2018-04-25 15:17 | Inpatient (IN) | payer MEDICAID ==
[2018-04-25] MEDS ORDERED: ASPIRIN 325 MG TABLET PO ONE (15:31)
--- NOTE | 2018-04-25 15:33 | ER Document Report ---
ED Medical Screen (RME) - General Chief Complaint: Chest Pain Stated Complaint: CHEST PAIN, SHORTNESS OF BREATH Time Seen by Provider: 04/25/18 15:31 Mode of Arrival: Wheelchair Information source: Patient TRAVEL OUTSIDE OF THE [place] IN LAST 30 DAYS: No - HPI Patient complains to provider of: cp, sob Onset: This morning - pt was seen here [facility] for elevated BS -- states had CP at the time but it has gotten worse now - Related Data Allergies/Adverse Reactions: No Known Allergies Allergy (Verified 04/13/18 02:08) Past Medical History - Social History Family history: Reviewed & Not Pertinent - Past Medical History Cardiac Medical History: Reports: Hx Heart Attack - May 2017., Hx Hypertension Denies: Hx Congestive Heart Failure, Hx DVT, Hx Hypercholesterolemia, Hx Pulmonary Embolism Pulmonary Medical History: Reports: Hx Asthma - as child Denies: Hx COPD, Hx Sleep Apnea Neurological Medical History: Reports: Hx Migraine. Denies: Hx Seizures Endocrine Medical History: Reports: Hx Diabetes Mellitus Type 1. Denies: Hx Diabetes Mellitus Type 2, Hx Hyperthyroidism, Hx Hypothyroidism Renal/ Medical History: Denies: Hx Peritoneal Dialysis GI Medical History: Denies: Hx Cirrhosis, Hx Gastroesophageal Reflux Disease, Hx Hepatitis Musculoskeltal Medical History: Denies Hx Arthritis Psychiatric Medical History: Reports: Hx Anxiety, Hx Bipolar Disorder, Hx Depression, Hx Schizophrenia Infectious Medical History: Denies: Hx C-Diff, Hx Hepatitis, Hx MRSA Past Surgical History: Reports: Hx Appendectomy, Hx Oral Surgery - wisdom teeth , Other - [place] teeth extraction - Immunizations Hx Diphtheria, Pertussis, Tetanus Vaccination: Yes History of Influenza Vaccine for 06/2017 - 11/2017 Season: Refused Physical Exam - Vital signs Vitals: Temp Pulse Resp BP Pulse Ox 97.9 F 96 20 178/99 H 97 04/25/18 15:21 04/25/18 15:21 04/25/18 15:21 04/25/18 15:21 04/25/18 15:21 Course - Vital Signs Vital signs: Temp Pulse Resp BP Pulse Ox 97.9 F 96 20 178/99 H 97 04/25/18 15:21 04/25/18 15:21 04/25/18 15:21 04/25/18 15:21 04/25/18 15:21
[2018-04-25] MEDS ORDERED: ONDANSETRON 4 MG TAB.RAPDIS PO ONE (15:51)
[2018-04-25] MEDS ORDERED: KETOROLAC TROMETHAMINE INJ/PF 30 MG/1 ML SDV IV ONE (16:15)
[2018-04-25] MEDS ORDERED: NORMAL SALINE 1000 ML 1,000 ML IV ONE ×4 (16:20→23:20)
[2018-04-25] MEDS ORDERED: PROMETHAZINE HCL 25 MG TABLET PO ONE (18:54)
[2018-04-25] MEDS ORDERED: HYDROCODONE/ACETAMINOPHEN 5-325 MG TABLET PO ONE (18:54)
[2018-04-25 19:56] LABS: ABSOLUTE LYMPHOCYTES (AUTO) 0.9 10^3/uL (0.5-4.7); ABSOLUTE MONOCYTES (AUTO) 0.4 10^3/uL (0.1-1.4); ABSOLUTE NEUT (AUTO) 13.4 10^3/uL (1.7-8.2); BASOPHILS % (AUTO) 0.3 % (0-2); HEMATOCRIT 40.7 % (37.9-51.0); HEMOGLOBIN 12.9 g/dL (13.5-17.0); LYMPHOCYTES % (AUTO) 6.3 % (13-45); MEAN CORPUSCULAR HEMOGLOBIN 26.6 pg (27.0-33.4); MEAN CORPUSCULAR HGB CONC 31.8 g/dL (32.0-36.0); MEAN CORPUSCULAR VOLUME 84 fl (80-97); PLATELET COUNT 417 10^3/uL (150-450); RED BLOOD COUNT 4.86 10^6/uL (4.35-5.55); RED CELL DISTRIBUTION WIDTH 16.2 % (11.5-14.0); SEGMENTED NEUTROPHILS % (AUTO) 90.4 % (42-78); TOTAL CELLS COUNTED % (AUTO) 100 %; WHITE BLOOD COUNT 14.8 10^3/uL (4.0-10.5)
[2018-04-25] MEDS ORDERED: INSULIN REG, HUMAN 100 UNIT/ML 3 ML VIAL (PYX) IV ONE ×2 (20:01→22:16)
[2018-04-25 20:13] LABS: ALANINE AMINOTRANSFERASE 23 U/L (21-72); ALBUMIN 4.1 g/dL (3.5-5.0); ALKALINE PHOSPHATASE 122 U/L (38-126); ASPARTATE AMINO TRANSFERASE 20 U/L (17-59); BILIRUBIN,DIRECT 0.6 mg/dL (0.0-0.4); BILIRUBIN,TOTAL 0.8 mg/dL (0.2-1.3); BLOOD UREA NITROGEN 25 mg/dL (7-20); CALCIUM 9.4 mg/dL (8.4-10.2); CREATINE KINASE 158 U/L (55-170); POTASSIUM 4.6 mmol/L (3.6-5.0)
[2018-04-25 20:18] LABS: CARBON DIOXIDE 16 mmol/L (22-30); CHLORIDE 103 mmol/L (98-107); SODIUM 145.8 mmol/L (137-145)
[2018-04-25 20:21] LABS: ANION GAP 27 (5-19)
[2018-04-25 20:23] LABS: GLUCOSE 639 mg/dL (75-110)
[2018-04-25 20:24] LABS: CREATINE KINASE MB 0.92 ng/mL (<4.55)
[2018-04-25 20:26] LABS: TROPONIN I < 0.012 ng/mL
--- NOTE | 2018-04-25 21:52 | ER Document Report ---
ED General - General Mode of Arrival: Wheelchair TRAVEL OUTSIDE OF THE [place] IN LAST 30 DAYS: No <ANTHONY MAHER - Last Filed: 04/25/18 22:49> <SYLVESTERMARIBELL Kendal - Last Filed: 04/25/18 23:43> - General Chief Complaint: Chest Pain Stated Complaint: CHEST PAIN, SHORTNESS OF BREATH Time Seen by Provider: 04/25/18 15:31 Notes: Patient is a 32-year-old male with CAD, HTN, type 1 diabetes and history of [place] and being noncompliant with medications presents to the emergency department complaining of chest pain and elevated blood sugars. Patient was seen earlier this morning presenting with similar symptoms and was discharged home with prescriptions of Insulin (Lantus and Humalog) as well as Metoprolol. He states while waiting for his ride after being discharged he began to feel horrible and checked back into the emergency department. Patient states his chest pain is constant and exacerbated with deep breathing. Patient also complains of nausea and some abdominal pain. Patient denies any cough, fevers, vomiting, or diarrhea. (ANTHONY MAHER) - Related Data Allergies/Adverse Reactions: No Known Allergies Allergy (Verified 04/13/18 02:08) Past Medical History - General Information source: Patient - Social History Smoking Status: Current Every Day Smoker Family History: Reviewed & Not Pertinent, DM, Hypertension Patient has suicidal ideation: No Patient has homicidal ideation: No - Past Medical History Cardiac Medical History: Reports: Hx Heart Attack - May 2017., Hx Hypertension Pulmonary Medical History: Reports: Hx Asthma - as child Neurological Medical History: Reports: Hx Migraine Endocrine Medical History: Reports: Hx Diabetes Mellitus Type 1 Psychiatric Medical History: Reports: Hx Anxiety, Hx Bipolar Disorder, Hx Depression, Hx Schizophrenia Past Surgical History: Reports: Hx Appendectomy, Hx Oral Surgery - wisdom teeth , Other - [place] teeth extraction - Immunizations Hx Diphtheria, Pertussis, Tetanus Vaccination: Yes Hx Pneumococcal Vaccination: 09/16/00 <ANTHONY MAHER - Last Filed: 04/25/18 22:49> Review of Systems - Review of Systems Constitutional: See HPI EENT: No symptoms reported Cardiovascular: See HPI, Chest pain Respiratory: No symptoms reported Gastrointestinal: See HPI, Abdominal pain, Nausea Genitourinary: No symptoms reported Male Genitourinary: No symptoms reported Musculoskeletal: No symptoms reported Skin: No symptoms reported Hematologic/Lymphatic: No symptoms reported Neurological/Psychological: No symptoms reported -: Yes All other systems reviewed and negative <ANTHONY MAHER - Last Filed: 04/25/18 22:49> Physical Exam <ANTHONY MAHER - Last Filed: 04/25/18 22:49> <SYLVESTERMARIBELL - Last Filed: 04/25/18 23:43> - Vital signs Vitals: Temp Pulse Resp BP Pulse Ox 97.9 F 96 20 178/99 H 97 04/25/18 15:21 04/25/18 15:21 04/25/18 15:21 04/25/18 15:21 04/25/18 15:21 - Notes Notes: GENERAL: Alert, interacts well. No acute distress. HEAD: Normocephalic, atraumatic. EYES: Pupils equal, round, and reactive to light. Extraocular movements intact. ENT: Oral mucosa dry, tongue midline. NECK: Full range of motion. Supple. Trachea midline. LUNGS: Clear to auscultation bilaterally, no wheezes, rales, or rhonchi. No respiratory distress. HEART: Mild tachycardia. No murmurs, gallops, or rubs. ABDOMEN: Soft, non-tender. Non-distended. Bowel sounds present in all 4 quadrants. EXTREMITIES: Moves all 4 extremities spontaneously. NEUROLOGICAL: Alert and oriented x3. Normal speech. PSYCH: Normal affect, normal mood. SKIN: Warm, dry, normal turgor. No rashes or lesions noted. (GUNNARANTHONY) Course - Laboratory Result Diagrams: 04/25/18 19:40 04/25/18 19:40 <ANTHONY MAHER - Last Filed: 04/25/18 22:49> - Laboratory Result Diagrams: 04/25/18 19:40 04/25/18 19:40 - EKG Interpretation by Sc EKG shows normal: Sinus rhythm Rate: Tachycardia Rhythm: NSR - Normal intervals prolonged QT <SYLVESTERMARIBELL - Last Filed: 04/25/18 23:43> - Re-evaluation Re-evalutation: 04/25/18 22:24 Patient found to be in DKA patient will be admitted to Dr. Art. Patient was provided 2 L of fluids and then started on an insulin drip as well as potassium rider and normal saline drip. Patient alert oriented 4 hemodynamically stable at this time. She states that he has been compliant with his insulin although he does have a history of noncompliance. He has been complaining of chest pain has been continuous for 3 days his initial troponin is negative as well as EKG showed no concerning findings other than mildly prolonged QT interval. (MARIBELL PHAN) - Vital Signs Vital signs: Temp Pulse Resp BP Pulse Ox 97.9 F 96 20 178/99 H 97 04/25/18 15:21 04/25/18 15:21 04/25/18 15:21 04/25/18 15:21 04/25/18 15:21 - Laboratory Laboratory results interpreted by me: 04/25/18 04/25/18 04/25/18 19:40 19:40 21:13 WBC 14.8 H Hgb 12.9 L MCH 26.6 L MCHC 31.8 L RDW 16.2 H Seg Neutrophils % 90.4 H Lymphocytes % 6.3 L Absolute Neutrophils 13.4 H Sodium 145.8 H Carbon Dioxide 16 L Anion Gap 27 H BUN 25 H Creatinine 1.97 H Est GFR ( Amer) 48 L Est GFR (Non-Af Amer) 39 L Glucose 639 H* Direct Bilirubin 0.6 H Urine Protein 100 H Urine Glucose (UA) >=500 H Urine Ketones 80 H Urine Blood SMALL H Critical Care Note - Critical Care Note Total time excluding time spent on procedures (mins): 35 <MARIBELL PHAN - Last Filed: 04/25/18 23:43> Discharge <ANTHONY MAHER - Last Filed: 04/25/18 22:49> - Discharge Admitting Provider: [facility] Unit Admitted: ICU <MARIBELL PHAN - Last Filed: 04/25/18 23:43> - Discharge Clinical Impression: DKA (diabetic ketoacidoses) Qualifiers: Diabetes mellitus type: type 1 Diabetes mellitus complication detail: without coma Qualified Code(s): E10.10 - Type 1 diabetes mellitus with ketoacidosis without coma Condition: Critical Disposition: ADMITTED INPATIENT Scribe Attestation: 04/25/18 23:43 I personally performed the services described in the documentation, reviewed and edited the documentation which was dictated to the scribe in my presence, and it accurately records my words and actions. (MARIBELL PHAN) Scribe Documentation - Scribe Written by Matteo:: Matteo Carpenter, 04/25/2018 21:58 acting as scribe for :: Sylvester <ANTHONY MAHER - Last Filed: 04/25/18 22:49>
[2018-04-25] MEDS ORDERED: ONDANSETRON HCL INJ/PF 4 MG/2 ML SDV IV ONE (22:14)
[2018-04-25] MEDS ORDERED: METOCLOPRAMIDE HCL INJ/PF 10 MG/2 ML SDV IV ONE (22:15)
[2018-04-25 22:18] LABS: APPEARANCE,URINE CLEAR; BILIRUBIN,URINE NEGATIVE (NEGATIVE); COLOR,URINE STRAW; GLUCOSE, URINE >=500 mg/dL (NEGATIVE); KETONES,URINE 80 mg/dL (NEGATIVE); LEUKOCYTE ESTERASE,URINE NEGATIVE (NEGATIVE); NITRITE,URINE NEGATIVE (NEGATIVE); PROTEIN,URINE 100 mg/dL (NEGATIVE); UROBILINOGEN,URINE NEGATIVE mg/dL (<2.0)
--- NOTE | 2018-04-25 23:22 | RADIOLOGY REPORT (SQ) ---
EXAM DESCRIPTION: XR CHEST 1 VIEW COMPLETED DATE/TME: 04/25/2018 22:14 CLINICAL HISTORY: 32 years, Male, chest pain COMPARISON: Earlier same day at 7:05 AM and correlation with CTA chest 04/17/2018 NUMBER OF VIEWS: One TECHNIQUE: AP portable upright LIMITATIONS: None. FINDINGS: Cardiomediastinal silhouette is within normal limits. No lung consolidate. No pleural effusion. No pneumothorax. No acute osseous finding. IMPRESSION: Stable appearance of the chest without interval acute finding. 2010 [employer]- All Rights Reserved
[2018-04-25] MEDS ORDERED: DEXTROSE 50%-WATER SYRINGE 12.5 GM/25 ML DOSE IV PRN (23:26)
[2018-04-25] MEDS ORDERED: DEXTROSE 50%-WATER SYRINGE 25 GM/50 ML DOSE IV PRN (23:26)
[2018-04-25] MEDS ORDERED: DEXTROSE 40% GEL 15 GM TUBE X 2 PO PRN (23:26)
[2018-04-25] MEDS ORDERED: INSULIN, REGULAR 100 UNIT/100 ML NORMAL SALINE IV PRN ×2 (23:26)
[2018-04-25] MEDS ORDERED: DEXTROSE 40% GEL 15 GM TUBE PO PRN ×3 (23:26→23:28)
[2018-04-25] MEDS ORDERED: GLUCAGON,HUMAN RECOMB 1 MG INJ IM PRN (23:26)
[2018-04-25] MEDS ORDERED: DEXTROSE 50%-WATER 25 GM/50 ML DISP.SYRIN IV PRN ×2 (23:28)
[2018-04-25] MEDS ORDERED: PROMETHAZINE HCL INJ 25 MG/1 ML VIAL IV PRN (23:28)
[2018-04-25] MEDS ORDERED: GLUCAGON,HUMAN RECOMB 1 MG INJ SUBCUT PRN (23:28)
[2018-04-25] MEDS ORDERED: MAG HYDROX/AL HYDROX/SIMETH SUSP 30 ML UDCUP PO PRN (23:28)
[2018-04-25] MEDS ORDERED: HYDRALAZINE HCL INJ/PF 20 MG/1 ML SDV IV PRN (23:36)
[2018-04-25] MEDS ORDERED: NORMAL SALINE 1000 ML 1,000 ML IV PRN (23:37)
[2018-04-25] MEDS ORDERED: POTASSI CL 20 MEQ/NS 1L 1,000 ML IV PRN (23:41)
--- NOTE | 2018-04-26 00:04 | PDOC H&P ---
History of Present Illness Admission Date/PCP: 04/25/18 22:40 JARON ANN MD Patient complains of: Chest pain, vomiting, hyperglycemia History of Present Illness: LENA SCHULZ is a 32 year old male with history of diabetes mellitus type 1 who comes to the emergency department with 3 days of feeling sick, patient is not very cooperative with the interview but tells me that he has been having diffuse chest pains, polyuria, polydipsia, several episodes of nausea and nonbloody vomiting. Patient states compliance but as per history he is noncompliant with medications and has history of substance abuse. He was arrested yesterday for missing court day. Denies shortness of breath, abdominal pain, cough, wheezing, fever or chills. Upon arrival to the emergency department telemetry tachycardic, afebrile, BP 178 /99. Blood sugar was found 639, anion gap 26. 2 L of normal saline given and patient was started on insulin infusion. EKG sinus tachycardia. First set of troponins negative. Chest x-ray unremarkable. CTA negative for PE with distal esophagitis. Past Medical History Cardiac Medical History: Reports: Myocardial Infarction - May 2017., Hypertension Denies: Congestive Heart Failure, DVT, Hyperlipidema, Pulmonary Embolism Pulmonary Medical History: Reports: Asthma - as child Denies: Chronic Obstructive Pulmonary Disease (COPD), Sleep Apnea Neurological Medical History: Reports: Migraine Denies: Seizures Endocrine Medical History: Reports: Diabetes Mellitus Type 1 Denies: Diabetes Mellitus Type 2, Hyperthyroidism, Hypothyroidism GI Medical History: Denies: Cirrhosis, Gastroesophageal Reflux Disease, Hepatitis Musculoskeltal Medical History: Denies: Arthritis Psychiatric Medical History: Reports: Bipolar Disorder, Depression Hematology: Reports: Anemia Infectious Medical History: Denies: Clostridium Difficile, Methicillin-Resistant Staph Aureus Past Surgical History Past Surgical History: Reports: Appendectomy, Other - [place] teeth extraction Social History Smoking Status: Current Every Day Smoker Frequency of Alcohol Use: None Hx Recreational Drug Use: No Drugs: Cocaine Hx Prescription Drug Abuse: Yes - oxycodone Family History Family History: Reviewed & Not Pertinent, DM, Hypertension Parental Family History Reviewed: No Children Family History Reviewed: NA Sibling(s) Family History Reviewed.: NA Medication/Allergy Home Medications: Acetaminophen [Tylenol 325 mg Tablet] 650 mg PO Q4HP PRN tablet 04/17/18 Aspirin [Children's Aspirin] 81 mg PO DAILY #90 tab.chew 04/17/18 Insulin Glargine,Hum.rec.anlog [Lantus Insulin 100 Unit/1 ml 10 ml] 35 unit SQ DAILY 04/17/18 Insulin Lispro [Humalog Insulin (Lispro) 100 unit/mL] 5 unit SQ AC 04/17/18 Insulin Lispro [Humalog Insulin (Lispro) 100 unit/mL] See Protocol SQ AC Metoprolol Succinate [Toprol Xl 50 mg Tab.sr] 50 mg PO Q12 04/17/18 Nicotine [Nicoderm 21 mg/24 Hr Transderm Patch] 1 patch TD DAILY #30 patch.td24 04/17/18 Pantoprazole Sodium [Protonix] 40 mg PO BID 04/17/18 Quetiapine Fumarate [Seroquel] 400 mg PO BID 04/17/18 Trazodone HCl [Desyrel 50 mg Tablet] 50 mg PO QHS 04/17/18 Insulin Glargine,Hum.rec.anlog [Lantus Insulin 100 Unit/1 ml 10 ml] 35 unit SUBCUT DAILY #10 ml 04/25/18 Insulin Lispro [Humalog Insulin (Lispro) 100 unit/mL] 5 unit SQ AC #5 ml Metoprolol Tartrate 50 mg PO Q12 #60 tablet 04/25/18 Allergies/Adverse Reactions: No Known Allergies Allergy (Verified 04/13/18 02:08) Review of Systems Review of Systems: As outlined in the HPI, others negative Physical Exam Vital Signs: Temp Pulse Resp BP Pulse Ox 97.9 F 96 20 178/99 H 97 04/25/18 15:21 04/25/18 15:21 04/25/18 15:21 04/25/18 15:21 04/25/18 15:21 Intake & Output 04/24/18 04/25/18 04/26/18 06:59 06:59 06:59 Intake Total 1000 Balance 1000 Additional comments: General appearance: Debilitated, alert and partially cooperative, and appears to be in no acute distress Head: Normocephalic Eyes: PEERL, EOMI, vision is grossly intact. Ears: External auditory canal and tympanic membranes clear, hearing grossly intact. Nose: No nasal discharge. Throat: Oral cavity and pharynx normal. No inflammation, swelling, exudate or lesions. Neck: Neck supple, nontender without lymphadenopathy, masses or thyromegaly. Cardiac: Normal S1 and S2. No S3, S4 or murmurs. Rhythm is regular. There is no peripheral edema, cyanosis or pallor. Extremities are warm and well perfused. Capillary refill is less than 2 seconds. No carotid bruits. Lungs: Clear to auscultation and percussion without rales, rhonchi, wheezing or diminished breath sounds. Not using accessory muscles. Abdomen: Positive bowel sounds. Soft. Nondistended, nontender. No guarding or rebound. No masses. No hepatosplenomegaly Extremities: No significant deformity or joint abnormality. No edema. Peripheral pulses intact. No varicosities. Neurological: Cranial nerves II through XII grossly intact. Strength and sensation symmetric and intact throughout. Reflexes 2+ throughout. Skin: Skin normal color, texture and turgor with no lesions or eruptions, warm and dry. Psychiatric: The mental examination revealed the patient was oriented to person , place, and time. The patient was able to demonstrate good judgment on recent , without hallucinations, abnormal affect or abnormal behaviors. Results Laboratory Results: 04/25/18 04/25/18 04/25/18 19:40 19:40 19:40 WBC 14.8 H RBC 4.86 Hgb 12.9 L Hct 40.7 MCV 84 MCH 26.6 L MCHC 31.8 L RDW 16.2 H Plt Count 417 Seg Neutrophils % 90.4 H Lymphocytes % 6.3 L Monocytes % 3.0 Eosinophils % 0.0 Basophils % 0.3 Absolute Monocytes 0.4 Absolute Basophils 0.0 Sodium 145.8 H Potassium 4.6 Chloride 103 Carbon Dioxide 16 L Anion Gap 27 H BUN 25 H Creatinine 1.97 H Est GFR ( Amer) 48 L Est GFR (Non-Af Amer) 39 L Glucose 639 H* Calcium 9.4 Magnesium Total Bilirubin 0.8 Direct Bilirubin 0.6 H AST 20 ALT 23 Alkaline Phosphatase 122 Creatine Kinase 158 CK-MB (CK-2) 0.92 Troponin I < 0.012 Total Protein 7.0 Albumin 4.1 Urine Color Urine Appearance Urine pH Ur Specific [place] Urine Protein Urine Glucose (UA) Urine Ketones Urine Blood Urine Nitrite Urine Bilirubin Urine Urobilinogen Ur Leukocyte Esterase Squamous Epi Cells Auto Urine Mucus (Auto) Urine Ascorbic Acid 04/25/18 04/25/18 19:40 21:13 WBC RBC Hgb Hct MCV MCH MCHC RDW Plt Count Seg Neutrophils % Lymphocytes % Monocytes % Eosinophils % Basophils % Absolute Monocytes Absolute Basophils Sodium Potassium Chloride Carbon Dioxide Anion Gap BUN Creatinine Est GFR ( Amer) Est GFR (Non-Af Amer) Glucose Calcium Magnesium 1.9 Total Bilirubin Direct Bilirubin AST ALT Alkaline Phosphatase Creatine Kinase CK-MB (CK-2) Troponin I Total Protein Albumin Urine Color STRAW Urine Appearance CLEAR Urine pH 5.0 Ur Specific [place] 1.020 Urine Protein 100 H Urine Glucose (UA) >=500 H Urine Ketones 80 H Urine Blood SMALL H Urine Nitrite NEGATIVE Urine Bilirubin NEGATIVE Urine Urobilinogen NEGATIVE Ur Leukocyte Esterase NEGATIVE Squamous Epi Cells Auto <1 Urine Mucus (Auto) RARE Urine Ascorbic Acid NEGATIVE Impressions: Chest X-Ray 04/25/18 22:14 IMPRESSION: Stable appearance of the chest without interval acute finding. 2010 [employer]- All Rights Reserved Assessment & Plan - Diagnosis (1) DKA (diabetic ketoacidoses) Qualifiers: Diabetes mellitus type: type 1 Diabetes mellitus complication detail: without coma Qualified Code(s): E10.10 - Type 1 diabetes mellitus with ketoacidosis without coma Is this a current diagnosis for this admission?: Yes Plan: Diabetes mellitus type 2 with last hemoglobin A1c 9.16 November 2017, patient noncompliant with his medications, multiple episodes of DKA. Blood sugar 639. 3 L of IV fluids finishing, patient on insulin infusion. Accu-Cheks q. one hour with hypoglycemia protocol placed. BMP every 4 hours. Close monitoring of electrolytes and replacement. (2) ARF (acute renal failure) Qualifiers: Acute renal failure type: unspecified Qualified Code(s): N17.9 - Acute kidney failure, unspecified Is this a current diagnosis for this admission?: Yes Plan: BUN 25, creatinine 1.95, patient with normal renal function a couple of months ago. Patient is receiving aggressive IV fluids hydration and will reassess his renal function every 4 hours. Avoid nephrotoxic drugs. (3) Chest pain Qualifiers: Chest pain type: unspecified Qualified Code(s): R07.9 - Chest pain, unspecified Is this a current diagnosis for this admission?: Yes Plan: Patient is chest pain free now, this is likely related with esophagitis with his persistent nausea and vomiting, first set of troponins negative. Ordered 40 mg of IV Protonix, will order Carafate. Cardiac markers 3. (4) Hypertension Qualifiers: Hypertension type: essential hypertension Qualified Code(s): I10 - Essential (primary) hypertension Is this a current diagnosis for this admission?: Yes Plan: Blood pressure up to 178/99, we will resume his home antihypertensive medications and place him on hydralazine IV as needed (5) Substance abuse Is this a current diagnosis for this admission?: Yes Plan: As per history, patient denies, will send urine drug screen. (6) Tobacco dependency Is this a current diagnosis for this admission?: Yes Plan: Will order nicotine patch 21 mg per day. - Time Time Spent: 30 to 50 Minutes - Inpatient Certification Medical Necessity: Risk of Diagnosis Which Will Require Inpatient Eval/Care/ Monitoring
--- NOTE | 2018-04-26 00:09 | EKG REPORT ---
SEVERITY:- ABNORMAL ECG - SINUS RHYTHM PROLONGED QT INTERVAL : Confirmed by: Arin Drummond MD 26-Apr-2018 00:08:49
[2018-04-26 00:45] LABS: VENOUS BLOOD BASE EXCESS -6.6 mmol/L; VENOUS BLOOD HCO3 19.8 mmol/L (20-32); VENOUS BLOOD PCO2 43.2 mmHg (35-63); VENOUS BLOOD PH 7.28 (7.30-7.42)
[2018-04-26 00:56] LABS: URINE AMPHETAMINES SCREEN NEGATIVE; URINE BARBITURATES SCREEN NEGATIVE; URINE BENZODIAZEPINES SCREEN NEGATIVE; URINE COCAINE SCREEN NEGATIVE; URINE MARIJUANA (THC) SCREEN NEGATIVE; URINE METHADONE SCREEN NEGATIVE; URINE PHENCYCLIDINE SCREEN NEGATIVE
[2018-04-26 01:08] LABS: BLOOD UREA NITROGEN 28 mg/dL (7-20); CALCIUM 8.7 mg/dL (8.4-10.2); CARBON DIOXIDE 18 mmol/L (22-30); CHLORIDE 107 mmol/L (98-107); POTASSIUM 4.6 mmol/L (3.6-5.0)
[2018-04-26 01:13] LABS: SODIUM 149.3 mmol/L (137-145)
[2018-04-26 01:34] LABS: ANION GAP 24 (5-19)
[2018-04-26 01:35] LABS: GLUCOSE 576 mg/dL (75-110)
[2018-04-26] MEDS: POTASSI CL 20 MEQ/50 ML RIDER 20 MEQ/50 ML RTUPB IV SCH ×4 (01:41→08:48)
[2018-04-26] MEDS ORDERED: 1/2 NORMAL SALINE 1,000 ML IV PRN (02:16)
[2018-04-26] MEDS: MAGNESIUM SULFATE/D5W 1 GM/100 ML RTUPB IV SCH ×2 (03:27→04:42)
[2018-04-26 04:31] LABS: ANION GAP 18 (5-19); BLOOD UREA NITROGEN 27 mg/dL (7-20); CALCIUM 8.7 mg/dL (8.4-10.2); CARBON DIOXIDE 19 mmol/L (22-30); CHLORIDE 109 mmol/L (98-107); GLUCOSE 365 mg/dL (75-110); POTASSIUM 4.2 mmol/L (3.6-5.0); SODIUM 145.9 mmol/L (137-145)
[2018-04-26] MEDS: ACETAMINOPHEN 325 MG TABLET PO PRN ×3 (04:35→16:59)
[2018-04-26] MEDS ORDERED: MAGNESIUM SULFATE/D5W 1 GM/100 ML RTUPB IV ONE (04:41)
[2018-04-26] MEDS: SUCRALFATE SUSP 1 GM/10 ML UDCUP PO SCH ×4 (05:14→23:48)
[2018-04-26] MEDS: HEPARIN SOD (PORCINE) 5,000 UNIT/ML 1 ML SYRINGE SUBCUT SCH ×3 (05:15→21:03)
[2018-04-26 06:19] LABS: ARTERIAL BLOOD BASE EXCESS -2.5 mmol/L; ARTERIAL BLOOD H2CO3 1.13 mmol/L (1.05-1.35); ARTERIAL BLOOD HCO3 22.2 mmol/L (20-26); ARTERIAL BLOOD O2 SATURATION 96.6 % (94-98); ARTERIAL BLOOD PCO2 37.7 mmHg (35-45); ARTERIAL BLOOD PH 7.39 (7.35-7.45); ARTERIAL BLOOD PO2 87.5 mmHg (80-100); ARTERIAL BLOOD TOTAL CO2 23.3 mmol/L (23-27)
[2018-04-26 06:20] LABS: ARTERIAL BLOOD FIO2 21%
[2018-04-26] MEDS ORDERED: POTASSI CL 20 MEQ/D5-1/2NS 1L 1,000 ML IV PRN (09:56)
[2018-04-26] MEDS ORDERED: POTASSI CL 20 MEQ/D5-1/2NS 1L 1,000 ML IV ONE (10:28)
[2018-04-26 10:55] LABS: ABSOLUTE BASOPHILS # (AUTO) 0.1 10^3/uL (0.0-0.2); ABSOLUTE MONOCYTES (AUTO) 1.4 10^3/uL (0.1-1.4); ABSOLUTE NEUT (AUTO) 12.9 10^3/uL (1.7-8.2); BASOPHILS % (AUTO) 0.4 % (0-2); EOSINOPHILS % (AUTO) 0.1 % (0-6); HEMATOCRIT 34.1 % (37.9-51.0); HEMOGLOBIN 11.2 g/dL (13.5-17.0); LYMPHOCYTES % (AUTO) 12.4 % (13-45); MEAN CORPUSCULAR HGB CONC 32.9 g/dL (32.0-36.0); MONOCYTES % (AUTO) 8.8 % (3-13); PLATELET COUNT 387 10^3/uL (150-450); RED BLOOD COUNT 4.32 10^6/uL (4.35-5.55); RED CELL DISTRIBUTION WIDTH 16.1 % (11.5-14.0); SEGMENTED NEUTROPHILS % (AUTO) 78.3 % (42-78); TOTAL CELLS COUNTED % (AUTO) 100 %; WHITE BLOOD COUNT 16.5 10^3/uL (4.0-10.5)
[2018-04-26 10:56] LABS: MEAN CORPUSCULAR VOLUME 79 fl (80-97)
[2018-04-26 11:12] LABS: ANION GAP 10 (5-19); BLOOD UREA NITROGEN 25 mg/dL (7-20); CALCIUM 8.4 mg/dL (8.4-10.2); CARBON DIOXIDE 23 mmol/L (22-30); CHLORIDE 109 mmol/L (98-107); GLUCOSE 88 mg/dL (75-110); PHOSPHORUS 2.3 mg/dL (2.5-4.5); POTASSIUM 3.9 mmol/L (3.6-5.0); SODIUM 142.4 mmol/L (137-145)
[2018-04-26] MEDS ORDERED: DEXTROSE 50%-WATER 25 GM/50 ML DISP.SYRIN IV PRN ×2 (11:57)
[2018-04-26] MEDS ORDERED: GLUCAGON,HUMAN RECOMB 1 MG INJ IM PRN (11:57)
[2018-04-26] MEDS: OXYCODONE HCL IR 5 MG TABLET PO PRN ×2 (13:03→19:06)
[2018-04-26] MEDS ORDERED: PANTOPRAZOLE SODIUM 40 MG VIAL IV ONE (15:00)
[2018-04-26] MEDS: NICOTINE 21 MG/24 HR PATCH.TD24 TD SCH (15:08)
[2018-04-26] MEDS: INSULIN LISPRO 100 UNIT/ML 3 ML VIAL SUBCUT PRN ×2 (16:57→22:11)
[2018-04-26 17:55] LABS: ANION GAP 14 (5-19); BLOOD UREA NITROGEN 22 mg/dL (7-20); CALCIUM 8.1 mg/dL (8.4-10.2); CARBON DIOXIDE 18 mmol/L (22-30); CHLORIDE 104 mmol/L (98-107); GLUCOSE 364 mg/dL (75-110); PHOSPHORUS 2.7 mg/dL (2.5-4.5); POTASSIUM 4.6 mmol/L (3.6-5.0); SODIUM 135.7 mmol/L (137-145)
--- NOTE | 2018-04-26 23:22 | PDOC PROGRESS REPORT ---
Subjective Progress Note for:: 04/26/18 Subjective:: LENA SCHULZ is a 32 year old male with history of diabetes mellitus type 1. He is well known to the hospitalist service. Started on an insulin gtt upon admission, has since been table to wean off. The patient is seen on morning rounds, he is resting in bed complaining of a headache. He is asking for narcotic pain medication to help treat his headache. The patient denies nausea, vomiting, blurry vision or neck pain. At the present time, the Anion Gap is closed on his lab work. Stop insulin gtt and convert to humalog sliding scale. Patient may resume diet. Resume home dose Lantus. Reason For Visit: DIABETIC KETOACIDOSIS Physical Exam Vital Signs: Temp Pulse Resp BP Pulse Ox 99.3 F 101 H 16 156/90 H 99 04/26/18 19:19 04/26/18 19:49 04/26/18 19:19 04/26/18 19:19 04/26/18 19:19 Intake & Output 04/25/18 04/26/18 04/27/18 06:59 06:59 06:59 Intake Total 2367 2072 Output Total 1000 1400 Balance 1367 672 Weight 90 kg Results Laboratory Results: 04/26/18 10:37 04/26/18 17:10 04/26/18 04/26/18 04/26/18 00:27 00:27 04:06 WBC RBC Hgb Hct MCV MCH MCHC RDW Plt Count Seg Neutrophils % Lymphocytes % Monocytes % Eosinophils % Basophils % Absolute Neutrophils Absolute Lymphocytes Absolute Monocytes Absolute Eosinophils Absolute Basophils Carbonic Acid HCO3/H2CO3 Ratio ABG pH ABG pCO2 ABG pO2 ABG HCO3 ABG O2 Saturation ABG Base Excess VBG pH 7.28 L VBG pCO2 43.2 VBG HCO3 19.8 L VBG Base Excess -6.6 FiO2 Sodium 149.3 H 145.9 H Potassium 4.6 4.2 Chloride 107 109 H Carbon Dioxide 18 L 19 L Anion Gap 24 H 18 BUN 28 H 27 H Creatinine 1.97 H 1.69 H Est GFR ( Amer) 48 L 57 L Est GFR (Non-Af Amer) 39 L 47 L Glucose 576 H* 365 H Calcium 8.7 8.7 Phosphorus Magnesium 04/26/18 04/26/18 04/26/18 06:06 10:37 10:37 WBC 16.5 H RBC 4.32 L Hgb 11.2 L Hct 34.1 L MCV 79 L D MCH 26.0 L MCHC 32.9 RDW 16.1 H Plt Count 387 Seg Neutrophils % 78.3 H Lymphocytes % 12.4 L Monocytes % 8.8 Eosinophils % 0.1 Basophils % 0.4 Absolute Neutrophils 12.9 H Absolute Lymphocytes 2.0 Absolute Monocytes 1.4 Absolute Eosinophils 0.0 Absolute Basophils 0.1 Carbonic Acid 1.13 HCO3/H2CO3 Ratio 19:1 ABG pH 7.39 ABG pCO2 37.7 ABG pO2 87.5 ABG HCO3 22.2 ABG O2 Saturation 96.6 ABG Base Excess -2.5 VBG pH VBG pCO2 VBG HCO3 VBG Base Excess FiO2 21% Sodium 142.4 Potassium 3.9 Chloride 109 H Carbon Dioxide 23 Anion Gap 10 BUN 25 H Creatinine 1.57 H Est GFR ( Amer) > 60 Est GFR (Non-Af Amer) 51 L Glucose 88 Calcium 8.4 Phosphorus 2.3 L Magnesium 2.4 H 04/26/18 17:10 WBC RBC Hgb Hct MCV MCH MCHC RDW Plt Count Seg Neutrophils % Lymphocytes % Monocytes % Eosinophils % Basophils % Absolute Neutrophils Absolute Lymphocytes Absolute Monocytes Absolute Eosinophils Absolute Basophils Carbonic Acid HCO3/H2CO3 Ratio ABG pH ABG pCO2 ABG pO2 ABG HCO3 ABG O2 Saturation ABG Base Excess VBG pH VBG pCO2 VBG HCO3 VBG Base Excess FiO2 Sodium 135.7 L Potassium 4.6 Chloride 104 Carbon Dioxide 18 L Anion Gap 14 BUN 22 H Creatinine 1.44 H Est GFR ( Amer) > 60 Est GFR (Non-Af Amer) 56 L Glucose 364 H Calcium 8.1 L Phosphorus 2.7 Magnesium 2.0 04/26/18 04/26/18 04/26/18 00:27 10:37 17:10 Troponin I < 0.012 0.013 < 0.012 Impressions: Chest X-Ray 04/25/18 22:14 IMPRESSION: Stable appearance of the chest without interval acute finding. 2010 [employer]- All Rights Reserved Assessment & Plan - Diagnosis (1) DKA (diabetic ketoacidoses) Qualifiers: Diabetes mellitus type: type 1 Diabetes mellitus complication detail: without coma Qualified Code(s): E10.10 - Type 1 diabetes mellitus with ketoacidosis without coma Is this a current diagnosis for this admission?: Yes Plan: Uncontrolled diabetes Admitted on insulin gtt Serial BMPs reveal Anion Gap is closed, continue with sliding scale coverage and home dose lantus Patient able to tolerate PO intake, may resume diet and encourage PO hydration (2) Esophagitis Is this a current diagnosis for this admission?: Yes Plan: Secondary to vomiting PRN zofran and carafate - Time Time Spent with patient: 15-24 minutes Medications reviewed and adjusted accordingly: Yes Anticipated discharge: Home - Inpatient Certification Based on my medical assessment, after consideration of the patient's comorbidities, presenting symptoms, or acuity I expect that the services needed warrant INPATIENT care.: Yes I certify that my determination is in accordance with my understanding of Medicare's requirements for reasonable and necessary INPATIENT services [42 CFR 412.3e].: Yes Medical Necessity: Risk of Complication if Not Cared For in Hospital
[2018-04-26] MEDS ORDERED: ONDANSETRON 4 MG TAB.RAPDIS PO PRN (23:23)
[2018-04-27] MEDS: OXYCODONE HCL IR 5 MG TABLET PO PRN ×3 (01:09→14:17)
[2018-04-27] MEDS: SUCRALFATE SUSP 1 GM/10 ML UDCUP PO SCH ×4 (05:14→23:02)
[2018-04-27] MEDS: HEPARIN SOD (PORCINE) 5,000 UNIT/ML 1 ML SYRINGE SUBCUT SCH ×3 (05:14→21:49)
[2018-04-27 06:53] LABS: HEMATOCRIT 34.9 % (37.9-51.0); HEMOGLOBIN 11.6 g/dL (13.5-17.0); MEAN CORPUSCULAR HEMOGLOBIN 26.7 pg (27.0-33.4); MEAN CORPUSCULAR HGB CONC 33.3 g/dL (32.0-36.0); MEAN CORPUSCULAR VOLUME 80 fl (80-97); PLATELET COUNT 308 10^3/uL (150-450); RED BLOOD COUNT 4.36 10^6/uL (4.35-5.55); RED CELL DISTRIBUTION WIDTH 16.2 % (11.5-14.0); WHITE BLOOD COUNT 12.1 10^3/uL (4.0-10.5)
[2018-04-27 07:36] LABS: ALANINE AMINOTRANSFERASE 27 U/L (21-72); ALBUMIN 3.3 g/dL (3.5-5.0); ALKALINE PHOSPHATASE 112 U/L (38-126); ANION GAP 18 (5-19); ASPARTATE AMINO TRANSFERASE 17 U/L (17-59); BILIRUBIN,DIRECT 0.4 mg/dL (0.0-0.4); BILIRUBIN,TOTAL 0.6 mg/dL (0.2-1.3); BLOOD UREA NITROGEN 15 mg/dL (7-20); CALCIUM 8.5 mg/dL (8.4-10.2); CARBON DIOXIDE 19 mmol/L (22-30); CHLORIDE 102 mmol/L (98-107); GLUCOSE 237 mg/dL (75-110); POTASSIUM 4.2 mmol/L (3.6-5.0); SODIUM 138.5 mmol/L (137-145); TOTAL PROTEIN 6.3 g/dL (6.3-8.2)
[2018-04-27] MEDS: INSULIN LISPRO 100 UNIT/ML 3 ML VIAL SUBCUT PRN ×4 (08:10→22:01)
[2018-04-27] MEDS: NICOTINE 21 MG/24 HR PATCH.TD24 TD SCH (09:18)
[2018-04-27] MEDS: METOPROLOL SUCCINATE 50 MG TAB.SR.24H PO SCH ×2 (09:40→21:38)
[2018-04-27] MEDS ORDERED: INSULIN GLARGINE,HUM.REC.ANLOG 1,000 UNIT/10 ML UNIT SUBCUT SCH (10:00)
[2018-04-27 15:56] LABS: ANION GAP 10 (5-19); BLOOD UREA NITROGEN 14 mg/dL (7-20); CALCIUM 8.9 mg/dL (8.4-10.2); CARBON DIOXIDE 27 mmol/L (22-30); CHLORIDE 100 mmol/L (98-107); GLUCOSE 168 mg/dL (75-110); POTASSIUM 4.3 mmol/L (3.6-5.0); SODIUM 137.4 mmol/L (137-145)
[2018-04-27] MEDS: ACETAMINOPHEN 325 MG TABLET PO PRN (20:10)
[2018-04-27] MEDS ORDERED: QUETIAPINE FUMARATE 100 MG TABLET PO ONE (20:45)
[2018-04-27] MEDS ORDERED: TRAZODONE HCL 50 MG TABLET PO ONE (21:00)
--- NOTE | 2018-04-27 21:26 | PDOC PROGRESS REPORT ---
Subjective Progress Note for:: 04/27/18 Subjective:: LENA SCHULZ is a 32 year old male with history of diabetes mellitus type 1. He is well known to the hospitalist service. Started on an insulin gtt upon admission, has since been table to wean off. The patient is seen on morning rounds, he is resting in bed complaining of a headache. The patient denies nausea, vomiting, blurry vision or neck pain. At the present time, the Anion Gap is OPEN on his lab work. Currently on humalog sliding scale, resumed home dose Lantus this morning. Plan to recheck chemistry later today. If anion gap closed and barring any other complications, plan to discharge patient home. Reason For Visit: DIABETIC KETOACIDOSIS Physical Exam Vital Signs: Temp Pulse Resp BP Pulse Ox 98.7 F 82 16 158/97 H 99 04/27/18 14:48 04/27/18 19:00 04/27/18 14:48 04/27/18 14:48 04/27/18 14:48 Intake & Output 04/26/18 04/27/18 04/28/18 06:59 06:59 06:59 Intake Total 2367 2072 900 Output Total 1000 4300 2300 Balance 1367 -2228 -1400 Weight 90 kg 91.7 kg General appearance: PRESENT: no acute distress, well-developed, well-nourished Head exam: PRESENT: atraumatic, normocephalic Eye exam: PRESENT: conjunctiva pink, EOMI, PERRLA. ABSENT: scleral icterus Ear exam: PRESENT: normal external ear exam Mouth exam: PRESENT: moist, tongue midline Neck exam: ABSENT: carotid bruit, JVD, lymphadenopathy, thyromegaly Respiratory exam: PRESENT: clear to auscultation juan ramon. ABSENT: rales, rhonchi, wheezes Cardiovascular exam: PRESENT: RRR. ABSENT: diastolic murmur, rubs, systolic murmur Pulses: PRESENT: normal dorsalis pedis pul Vascular exam: PRESENT: normal capillary refill GI/Abdominal exam: PRESENT: normal bowel sounds, soft. ABSENT: distended, guarding, mass, organolmegaly, rebound, tenderness Rectal exam: PRESENT: deferred Extremities exam: PRESENT: full ROM. ABSENT: calf tenderness, clubbing, pedal edema Neurological exam: PRESENT: alert, awake, oriented to person, oriented to place , oriented to time, oriented to situation Psychiatric exam: PRESENT: appropriate affect, normal mood Skin exam: PRESENT: dry, intact, warm. ABSENT: cyanosis, rash Results Laboratory Results: 04/27/18 05:25 04/27/18 15:20 04/27/18 04/27/18 04/27/18 05:25 05:25 15:20 WBC 12.1 H RBC 4.36 Hgb 11.6 L Hct 34.9 L MCV 80 MCH 26.7 L MCHC 33.3 RDW 16.2 H Plt Count 308 Sodium 138.5 137.4 Potassium 4.2 4.3 Chloride 102 100 Carbon Dioxide 19 L 27 Anion Gap 18 10 BUN 15 14 Creatinine 1.41 H 1.17 Est GFR ( Amer) > 60 > 60 Est GFR (Non-Af Amer) 58 L > 60 Glucose 237 H 168 H Calcium 8.5 8.9 Phosphorus 3.0 Magnesium 2.1 Total Bilirubin 0.6 AST 17 ALT 27 Alkaline Phosphatase 112 Total Protein 6.3 Albumin 3.3 L 04/26/18 04/26/18 04/26/18 00:27 10:37 17:10 Troponin I < 0.012 0.013 < 0.012 Impressions: Chest X-Ray 04/25/18 22:14 IMPRESSION: Stable appearance of the chest without interval acute finding. 2010 [employer]- All Rights Reserved Status: Imported from PACS Assessment & Plan - Diagnosis (1) DKA (diabetic ketoacidoses) Qualifiers: Diabetes mellitus type: type 1 Diabetes mellitus complication detail: without coma Qualified Code(s): E10.10 - Type 1 diabetes mellitus with ketoacidosis without coma Is this a current diagnosis for this admission?: Yes Plan: Uncontrolled diabetes Admitted on insulin gtt Serial BMPs reveal Anion Gap was closed, but this morning Anion Gap was open. Continue with sliding scale coverage and initiate home dose lantus today Patient able to tolerate PO intake, continue consistent carb diet Should meet with finished goods stock clerk prior to discharge (2) Esophagitis Is this a current diagnosis for this admission?: Yes (3) Noncompliance Is this a current diagnosis for this admission?: Yes Plan: Multiple hospitalizations for DKA, patient is well known to hospitalist HgbA1c 9.2% Patient will meet with finished goods stock clerk prior to discharge - Time Time Spent with patient: 15-24 minutes Medications reviewed and adjusted accordingly: Yes Anticipated discharge: Home Within: within 24 hours - Inpatient Certification Based on my medical assessment, after consideration of the patient's comorbidities, presenting symptoms, or acuity I expect that the services needed warrant INPATIENT care.: Yes I certify that my determination is in accordance with my understanding of Medicare's requirements for reasonable and necessary INPATIENT services [42 CFR 412.3e].: Yes Medical Necessity: Risk of Complication if Not Cared For in Hospital
[2018-04-28] MEDS: SUCRALFATE SUSP 1 GM/10 ML UDCUP PO SCH ×2 (06:12→12:29)
[2018-04-28] MEDS: HEPARIN SOD (PORCINE) 5,000 UNIT/ML 1 ML SYRINGE SUBCUT SCH (06:13)
[2018-04-28] MEDS: INSULIN LISPRO 100 UNIT/ML 3 ML VIAL SUBCUT PRN ×2 (08:54→12:26)
[2018-04-28] MEDS ORDERED: QUETIAPINE FUMARATE 100 MG TABLET PO SCH (10:00)
[2018-04-28] MEDS ORDERED: INSULIN GLARGINE,HUM.REC.ANLOG 1,000 UNIT/10 ML UNIT SUBCUT SCH (10:00)
[2018-04-28] MEDS: METOPROLOL SUCCINATE 50 MG TAB.SR.24H PO SCH (10:05)
[2018-04-28] MEDS: NICOTINE 21 MG/24 HR PATCH.TD24 TD SCH (10:07)
[2018-04-28] MEDS: ACETAMINOPHEN 325 MG TABLET PO PRN (11:15)
[2018-04-28] MEDS ORDERED: TRAMADOL HCL 50 MG TABLET PO ONE (11:54)
[2018-04-28 12:43] VITALS: BP 139/79
[2018-04-28] MEDS ORDERED: TRAZODONE HCL 50 MG TABLET PO SCH (22:00)
--- NOTE | 2018-05-06 08:21 | PDOC DISCHARGE SUMMARY ---
General - Admit/Disc Date/PCP Admission Date/Primary Care Provider: 04/25/18 22:40 Discharge Date: 04/28/18 - Discharge Diagnosis (1) DKA (diabetic ketoacidoses) Is this a current diagnosis for this admission?: Yes (2) Esophagitis Is this a current diagnosis for this admission?: Yes (3) Noncompliance Is this a current diagnosis for this admission?: Yes - Additional Information Discharge Diet: As Tolerated Discharge Activity: Activity As Tolerated Home Medications: Insulin Glargine,Hum.rec.anlog [Lantus Insulin 100 Unit/1 ml 10 ml] 35 unit SQ DAILY 04/17/18 Insulin Lispro [Humalog Insulin (Lispro) 100 unit/mL] 5 unit SQ AC 04/17/18 Insulin Lispro [Humalog Insulin (Lispro) 100 unit/mL] See Protocol SQ AC Metoprolol Succinate [Toprol Xl 50 mg Tab.sr] 50 mg PO Q12 04/17/18 Pantoprazole Sodium [Protonix] 40 mg PO BID 04/17/18 Quetiapine Fumarate [Seroquel] 400 mg PO Q12 04/17/18 Trazodone HCl [Desyrel 50 mg Tablet] 50 mg PO QHS 04/17/18 Famotidine [Pepcid 20 mg Tablet] 20 mg PO BID #20 tablet 05/01/18 Promethazine HCl [Phenergan 25 mg Tablet] 25 mg PO Q6H PRN #20 tablet 05/01/18 History of Present Illness History of Present Illness: PER DR. Vanesa LIMA: LENA SCHULZ is a 32 year old male with history of diabetes mellitus type 1 who comes to the emergency department with 3 days of feeling sick, patient is not very cooperative with the interview but tells me that he has been having diffuse chest pains, polyuria, polydipsia, several episodes of nausea and nonbloody vomiting. Patient states compliance but as per history he is noncompliant with medications and has history of substance abuse. He was arrested yesterday for missing day. Denies shortness of breath, abdominal pain, cough, wheezing, fever or chills. Upon arrival to the emergency department telemetry tachycardic, afebrile, BP 178 /99. Blood sugar was found 639, anion gap 26. 2 L of normal saline given and patient was started on insulin infusion. EKG sinus tachycardia. First set of troponins negative. Chest x-ray unremarkable. CTA negative for PE with distal esophagitis. Hospital Course Hospital Course: 32 y.o. M well known to hospitalist service was admitted for DKA and nausea/ vomiting - BG>600 and Anion Gap 27. HgbA1c 9.2%. The patient was initially placed on an insulin gtt. Over the course of approximately 3 days the patient was able to wean from the insulin gtt and transition to lantus and mealtime sliding scale coverage. His blood glucose returned to normal limits and his anion gap closed. The patient has been hospitalized multiple times for DKA, he is well known to hospitalist service. Multiple Primary Care Physicians have fired the patient from their service due to noncompliance. Prior to discharge home, the patient met with special education paraeducator as well as a customer retention representative from [place] [employer] to find the patient a new PMD. The patient reported having "plenty" of insulin at home but stated he did not have a glucometer. The patient was sent home with a prescription for a new glucometer as well as lancets and test strips. [facility] pharmacy was contacted and they agreed to deliver the supplies to the patient's house. The patient received extensive counseling regarding his diabetes management, he stated understanding. It should be stated that diabetes education is reinforced during just about every hospitalization, but the patient remains noncompliant. For further information about the patient's hospitalization, please refer to the EMR. Physical Exam Vital Signs: Temp Pulse Resp BP Pulse Ox 99.0 F 84 18 139/79 H 100 04/28/18 13:25 04/28/18 13:25 04/28/18 13:25 04/28/18 13:25 04/28/18 13:25 Results Laboratory Results: 04/27/18 05:25 04/27/18 15:20 04/26/18 04/26/18 04/26/18 00:27 10:37 17:10 Troponin I < 0.012 0.013 < 0.012 Impressions: Chest X-Ray 04/25/18 22:14 IMPRESSION: Stable appearance of the chest without interval acute finding. 2010 [employer]- All Rights Reserved Status: Imported from PACS Qualifiers - * PATIENT BEING DISCHARGED WITH ANY OF THE FOLLOWING DIAGNOSIS: No Plan Discharge Plan: DISCHARGE HOME. FOLLOW UP WITH NEW PMD. Time Spent: Less than 30 Minutes
== END 2018-04-28 13:40 | disposition home or self-care (01) | DRG 638 ==
LOC: ER 15:17 → EH 22:40 → 3N 04-26 01:18
PROVIDERS: ADMIT Internal Medicine; ATTEND Internal Medicine
DX: E10.10 Type 1 diabetes mellitus with ketoacidosis without coma (principal); N17.9 Acute kidney failure, unspecified; G43.909 Migraine, unspecified, not intractable, without status migrainosus; F31.9 Bipolar disorder, unspecified; D64.9 Anemia, unspecified; F17.210 Nicotine dependence, cigarettes, uncomplicated; F19.10 Other psychoactive substance abuse, uncomplicated; K20.9 Esophagitis, unspecified; I25.10 Atherosclerotic heart disease of native coronary artery without angina pectoris; I10 Essential (primary) hypertension; F41.9 Anxiety disorder, unspecified; F20.9 Schizophrenia, unspecified; I25.2 Old myocardial infarction; Z91.14 Patient's other noncompliance with medication regimen; Z79.82 Long term (current) use of aspirin; Z79.4 Long term (current) use of insulin; Z79.899 Other long term (current) drug therapy; Z83.3 Family history of diabetes mellitus; Z82.49 Family history of ischemic heart disease and other diseases of the circulatory system
CPT/HCPCS: 36415; 71045; 80048; 80053; 80307; 81001; 82550; 82553; 82803; 82962; 83036; 83735; 84100; 84484; 85025; 85027; 93005; 93010; 96361; 96374; 96375; 99291; J1644; J1815; J1885; J2405; J2550; J2765; J3475; J3480; J3490; J7030; S0119; S0164

== ENCOUNTER 2018-05-01 03:08 | Emergency (ER) | payer MEDICAID ==
[2018-05-01] MEDS ORDERED: NORMAL SALINE 1000 ML 1,000 ML IV ONE (03:31)
[2018-05-01] MEDS ORDERED: ONDANSETRON HCL INJ/PF 4 MG/2 ML SDV IV ONE (03:31)
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
--- NOTE | 2018-05-01 04:05 | RADIOLOGY REPORT (SQ) ---
Chest single view on 05/01/2018 at 3:57 AM CLINICAL INDICATION: Chest pain COMPARISON: 04/25/2018 FINDINGS: The lungs are clear. Cardiac, hilar and mediastinal contours are within normal limits. Pulmonary vascularity is within normal limits. No bony abnormality is noted. IMPRESSION: No active disease.
[2018-05-01 04:16] LABS: ABSOLUTE BASOPHILS # (AUTO) 0.1 10^3/uL (0.0-0.2); ABSOLUTE EOSINOPHILS # (AUTO) 0.1 10^3/uL (0.0-0.6); ABSOLUTE LYMPHOCYTES (AUTO) 2.4 10^3/uL (0.5-4.7); ABSOLUTE MONOCYTES (AUTO) 0.7 10^3/uL (0.1-1.4); ABSOLUTE NEUT (AUTO) 7.9 10^3/uL (1.7-8.2); BASOPHILS % (AUTO) 0.5 % (0-2); EOSINOPHILS % (AUTO) 1.1 % (0-6); HEMATOCRIT 38.8 % (37.9-51.0); HEMOGLOBIN 12.8 g/dL (13.5-17.0); LYMPHOCYTES % (AUTO) 21.3 % (13-45); MEAN CORPUSCULAR HEMOGLOBIN 26.6 pg (27.0-33.4); MEAN CORPUSCULAR HGB CONC 32.9 g/dL (32.0-36.0); MEAN CORPUSCULAR VOLUME 81 fl (80-97); MONOCYTES % (AUTO) 6.4 % (3-13); PLATELET COUNT 378 10^3/uL (150-450); RED BLOOD COUNT 4.81 10^6/uL (4.35-5.55); SEGMENTED NEUTROPHILS % (AUTO) 70.7 % (42-78); TOTAL CELLS COUNTED % (AUTO) 100 %; WHITE BLOOD COUNT 11.2 10^3/uL (4.0-10.5)
[2018-05-01 04:26] LABS: VENOUS BLOOD BASE EXCESS 7.1 mmol/L; VENOUS BLOOD HCO3 35.1 mmol/L (20-32); VENOUS BLOOD PCO2 64.6 mmHg (35-63); VENOUS BLOOD PH 7.35 (7.30-7.42)
[2018-05-01 04:32] LABS: ALANINE AMINOTRANSFERASE 28 U/L (21-72); ALKALINE PHOSPHATASE 95 U/L (38-126); ANION GAP 14 (5-19); ASPARTATE AMINO TRANSFERASE 24 U/L (17-59); BILIRUBIN,DIRECT 0.3 mg/dL (0.0-0.4); BILIRUBIN,TOTAL 0.3 mg/dL (0.2-1.3); BLOOD UREA NITROGEN 11 mg/dL (7-20); CALCIUM 9.9 mg/dL (8.4-10.2); CARBON DIOXIDE 30 mmol/L (22-30); CHLORIDE 104 mmol/L (98-107); GLUCOSE 97 mg/dL (75-110); LIPASE 110.8 U/L (23-300); POTASSIUM 3.4 mmol/L (3.6-5.0); SODIUM 148.2 mmol/L (137-145); TOTAL PROTEIN 7.1 g/dL (6.3-8.2)
[2018-05-01] MEDS ORDERED: PROMETHAZINE HCL 25 MG TABLET PO ONE (04:33)
[2018-05-01] MEDS ORDERED: FAMOTIDINE 20 MG TABLET PO ONE (04:33)
[2018-05-01] MEDS ORDERED: SUCRALFATE 1 GM TABLET PO ONE (04:33)
[2018-05-01 06:44] VITALS: BP 124/75
--- NOTE | 2018-05-01 07:45 | EKG REPORT ---
SEVERITY:- ABNORMAL ECG - SINUS TACHYCARDIA BORDERLINE T ABNORMALITIES, DIFFUSE LEADS : Confirmed by: Brayden Silverio MD 01-May-2018 07:44:30
== END 2018-05-01 06:40 | disposition home or self-care (01) ==
LOC: ER 03:08
DX: R07.9 Chest pain, unspecified (principal); R11.2 Nausea with vomiting, unspecified; I10 Essential (primary) hypertension; E10.9 Type 1 diabetes mellitus without complications; Z87.891 Personal history of nicotine dependence; I25.2 Old myocardial infarction; Z79.4 Long term (current) use of insulin
CPT/HCPCS: 93005; 99285; 96361; 96374; 36415; 83690; 85025; 80053; 84484; 82803; 71045; 93010; J3490 ×3; J2405; J7030

== ENCOUNTER 2018-07-19 17:27 | Emergency (ER) | payer MEDICAID ==
[2018-07-19] MEDS ORDERED: ASPIRIN 81 MG TABLET, CHEWABLE PO ONE (17:29)
[2018-07-19 18:13] LABS: ABSOLUTE BASOPHILS # (AUTO) 0.1 10^3/uL (0.0-0.2); ABSOLUTE EOSINOPHILS # (AUTO) 0.1 10^3/uL (0.0-0.6); ABSOLUTE MONOCYTES (AUTO) 0.9 10^3/uL (0.1-1.4); ABSOLUTE NEUT (AUTO) 8.7 10^3/uL (1.7-8.2); BASOPHILS % (AUTO) 0.7 % (0-2); EOSINOPHILS % (AUTO) 0.5 % (0-6); HEMATOCRIT 40.9 % (37.9-51.0); HEMOGLOBIN 13.7 g/dL (13.5-17.0); LYMPHOCYTES % (AUTO) 9.3 % (13-45); MEAN CORPUSCULAR HEMOGLOBIN 27.2 pg (27.0-33.4); MEAN CORPUSCULAR HGB CONC 33.5 g/dL (32.0-36.0); MEAN CORPUSCULAR VOLUME 81 fl (80-97); MONOCYTES % (AUTO) 8.2 % (3-13); PLATELET COUNT 352 10^3/uL (150-450); RED BLOOD COUNT 5.04 10^6/uL (4.35-5.55); RED CELL DISTRIBUTION WIDTH 13.8 % (11.5-14.0); SEGMENTED NEUTROPHILS % (AUTO) 81.3 % (42-78); TOTAL CELLS COUNTED % (AUTO) 100 %; WHITE BLOOD COUNT 10.8 10^3/uL (4.0-10.5)
--- NOTE | 2018-07-19 18:15 | RADIOLOGY REPORT (SQ) ---
EXAM DESCRIPTION: CHEST SINGLE VIEW COMPLETED DATE/TIME: 07/19/2018 6:03 pm REASON FOR STUDY: chest pain COMPARISON: 04/25/2018 EXAM PARAMETERS: NUMBER OF VIEWS: One view. TECHNIQUE: Single frontal radiographic view of the chest acquired. RADIATION DOSE: NA LIMITATIONS: None. FINDINGS: LUNGS AND PLEURA: No opacities, masses or pneumothorax. No pleural effusion. MEDIASTINUM AND HILAR STRUCTURES: No masses. Contour normal. HEART AND VASCULAR STRUCTURES: Heart normal in size. Normal vasculature. BONES: No acute findings. HARDWARE: None in the chest. OTHER: No other significant finding. IMPRESSION: NO ACUTE RADIOGRAPHIC FINDING IN THE CHEST. TECHNICAL DOCUMENTATION: JOB ID: [id number] [place]-72 2010 [employer]- All Rights Reserved Reading location - IP/workstation name: [email or web address]
[2018-07-19 18:21] LABS: ALANINE AMINOTRANSFERASE 20 U/L (21-72); ALBUMIN 3.6 g/dL (3.5-5.0); ALKALINE PHOSPHATASE 95 U/L (38-126); ANION GAP 12 (5-19); ASPARTATE AMINO TRANSFERASE 29 U/L (17-59); BILIRUBIN,DIRECT 0.3 mg/dL (0.0-0.4); BILIRUBIN,TOTAL 0.6 mg/dL (0.2-1.3); BLOOD UREA NITROGEN 9 mg/dL (7-20); CALCIUM 9.5 mg/dL (8.4-10.2); CARBON DIOXIDE 28 mmol/L (22-30); CHLORIDE 97 mmol/L (98-107); CREATINE KINASE 332 U/L (55-170); GLUCOSE 116 mg/dL (75-110); POTASSIUM 3.5 mmol/L (3.6-5.0); SODIUM 137.1 mmol/L (137-145); TOTAL PROTEIN 6.8 g/dL (6.3-8.2)
[2018-07-19 18:42] LABS: CREATINE KINASE MB 0.96 ng/mL (<4.55); TROPONIN I 0.015 ng/mL
[2018-07-19] MEDS ORDERED: LIDOCAINE 2% VISCOUS SOLN 20 ML UDCUP PO ONE (19:49)
[2018-07-19] MEDS ORDERED: METOCLOPRAMIDE HCL ORAL SOLN 10 MG/10 ML UDCUP PO ONE (19:49)
[2018-07-19] MEDS ORDERED: FAMOTIDINE 20 MG TABLET PO ONE (19:49)
[2018-07-19] MEDS ORDERED: MAG HYDROX/AL HYDROX/SIMETH SUSP 30 ML UDCUP PO ONE (19:49)
[2018-07-19] MEDS ORDERED: METOPROLOL SUCCINATE 50 MG TAB.SR.24H PO ONE (19:50)
--- NOTE | 2018-07-19 19:56 | ER Document Report ---
ED General - General Chief Complaint: Chest Pain Stated Complaint: CHEST PAIN Time Seen by Provider: 07/19/18 18:19 Notes: Patient is a 32-year-old male with a past medical history of recurrent esophagitis, recurrent chest pain, insulin-dependent diabetes, who presents with concerns of chest pain for the past 24 hours. Patient states that he was vomiting last night, subsequently began developing burning, aching, diffuse chest wall pain. Symptoms have been effectively unchanged since onset. He states that since onset nothing has improved or worsen the symptoms although admits he has not tried any medications to try to treat his symptoms. Reports that he has had a history of chest pain similar to this in the past with episodes of vomiting. He denies any history of DVT or pulmonary embolus. No pleuritic pain or shortness of breath. Denies any fever. he has not seen his primary care doctor regarding today's concerns. TRAVEL OUTSIDE OF THE [place] IN LAST 30 DAYS: No - Related Data Allergies/Adverse Reactions: No Known Allergies Allergy (Verified 04/13/18 02:08) Past Medical History - General Information source: Patient - Social History Smoking Status: Never Smoker Frequency of alcohol use: None Drug Abuse: None Lives with: Alone Family History: Reviewed & Not Pertinent, DM, Hypertension Patient has suicidal ideation: No Patient has homicidal ideation: No - Past Medical History Cardiac Medical History: Reports: Hx Heart Attack - May 2017., Hx Hypertension Denies: Hx Congestive Heart Failure, Hx DVT, Hx Hypercholesterolemia, Hx Pulmonary Embolism Pulmonary Medical History: Reports: Hx Asthma - as child Denies: Hx COPD, Hx Sleep Apnea Neurological Medical History: Reports: Hx Migraine. Denies: Hx Seizures Endocrine Medical History: Reports: Hx Diabetes Mellitus Type 1. Denies: Hx Diabetes Mellitus Type 2, Hx Hyperthyroidism, Hx Hypothyroidism Renal/ Medical History: Denies: Hx Peritoneal Dialysis GI Medical History: Denies: Hx Cirrhosis, Hx Gastroesophageal Reflux Disease, Hx Hepatitis Musculoskeletal Medical History: Denies Hx Arthritis Psychiatric Medical History: Reports: Hx Anxiety, Hx Bipolar Disorder, Hx Depression, Hx Schizophrenia Infectious Medical History: Denies: Hx C-Diff, Hx Hepatitis, Hx MRSA Past Surgical History: Reports: Hx Appendectomy, Hx Oral Surgery - wisdom teeth , Other - [place] teeth extraction - Immunizations Hx Diphtheria, Pertussis, Tetanus Vaccination: Yes Hx Pneumococcal Vaccination: 09/16/00 Review of Systems - Review of Systems Notes: Constitutional: Negative for fever. HENT: Negative for sore throat. Eyes: Negative for visual changes. Cardiovascular: Positive for chest pain. Respiratory: Negative for shortness of breath. Gastrointestinal: Positive for nausea and vomiting Genitourinary: Negative for dysuria. Musculoskeletal: Negative for back pain. Skin: Negative for rash. Neurological: Negative for headaches, weakness or numbness. 10 point ROS negative except as marked above and in HPI. Physical Exam - Vital signs Vitals: Resp Pulse Ox 17 97 07/19/18 17:49 07/19/18 17:49 Interpretation: Hypertensive - Patient did not take his normal home metoprolol today, Tachycardic Notes: PHYSICAL EXAMINATION: GENERAL: Well-appearing, well-nourished and in no acute distress. HEAD: Atraumatic, normocephalic. EYES: Pupils equal round and reactive to light, extraocular movements intact, sclera anicteric, conjunctiva are normal. ENT: nares patent, oropharynx clear without exudates. Moist mucous membranes. NECK: Normal range of motion, supple without lymphadenopathy LUNGS: Breath sounds clear to auscultation bilaterally and equal. No wheezes rales or rhonchi. HEART: Regular rate and rhythm without murmurs ABDOMEN: Soft, nontender, normoactive bowel sounds. No guarding, no rebound. No masses appreciated. EXTREMITIES: Normal range of motion, no pitting or edema. No cyanosis. NEUROLOGICAL: No focal neurological deficits. Moves all extremities spontaneously and on command. PSYCH: Normal mood, normal affect. SKIN: Warm, Dry, normal turgor, no rashes or lesions noted. Course - Re-evaluation Re-evalutation: 07/19/18 19:52 Presentation of chest pain in an otherwise well appearing patient. Low clinical suspicion for ACS given clinical history, exam, EKG without ST elevations or depressions, and negative initial troponin. HEART score less than or equal to 3. PE also seems unlikely given clinical history, absence of dyspnea. Patient has had some moderate tachycardia here in the emergency department although admits he has not taken his normal metoprolol succinate today likely accounting for both his tachycardia and hypertension. CXR without evidence of pneumothorax or pneumonia. No widened mediastinum. No evidence of esophageal perforation. Aortic dissection also seems unlikely given history, symmetric pulses, CXR, and vitals. Patient's clinical history appears to be most consistent with esophagitis versus esophageal spasms. Will clinically treat and obtain a delta troponin to ensure that this remains normal. 07/19/18 20:57 Patient's chest pain has resolved. Tachycardia likewise has resolved current heart rate 90. Repeat troponin remains below concerning threshold. Overall assessment: Chest pain in a patient without evidence of cardiac or other serious etiology on workup today. I discussed with patient that, based on their age, risk factors and emergency department testing today, the likelihood that their symptoms are related to a heart attack is very low (estimated risk of heart attack or over the next 30 days of less than 1%). The patient demonstrates decision making capacity and has verbalized an understanding of these risks to me. Based on this, the patient has chosen to follow-up as an outpatient. Usual chest pain return precautions reviewed. The patient states understanding and agreement with this plan. - Vital Signs Vital signs: Temp Pulse Resp BP Pulse Ox 99.7 F 16 180/116 H 100 07/19/18 17:57 07/19/18 20:01 07/19/18 20:01 07/19/18 20:01 - Laboratory Result Diagrams: 07/19/18 18:00 07/19/18 17:51 Laboratory results interpreted by me: 07/19/18 07/19/18 17:51 18:00 WBC 10.8 H Seg Neutrophils % 81.3 H Lymphocytes % 9.3 L Absolute Neutrophils 8.7 H Potassium 3.5 L Chloride 97 L Creatinine 1.33 H Glucose 116 H ALT 20 L Creatine Kinase 332 H - Diagnostic Test Radiology reviewed: Image reviewed, Reports reviewed Radiology results interpreted by me: 07/19/18 19:54 Chest x-ray: No acute infiltrate or pneumothorax - EKG Interpretation by Me Additional EKG results interpreted by me: 07/19/18 19:54 Sinus tachycardia. Rate 122. No ST elevations or depressions. Subtle ST changes in V2 and 3 unchanged from prior assessment. Discharge - Discharge Clinical Impression: Esophagitis Nausea and vomiting Qualifiers: Vomiting type: unspecified Vomiting Intractability: non-intractable Qualified Code(s): R11.2 - Nausea with vomiting, unspecified Hypertension Qualifiers: Hypertension type: unspecified Qualified Code(s): I10 - Essential (primary) hypertension Chest pain Qualifiers: Chest pain type: unspecified Qualified Code(s): R07.9 - Chest pain, unspecified Condition: Good Disposition: HOME, SELF-CARE Additional Instructions: You were seen today for chest pain. The exact cause of your pain is unclear but may be related to inflammation of your esophagus. However, based on your cardiac enzyme testing, chest x-ray, and EKG it does not appear that it is from an immediately life-threatening cause at this time. Although your testing here is normal is critical that you follow-up with your primary care physician for continued evaluation of this chest pain and possible stress testing. I recommended you see your physician within the next 24-48 hours to be evaluated for consideration of a stress test. Please return to emergency department immediately if you have worsening of your chest pain, shortness of breath, vomiting, become unable to exert yourself due to pain or difficulty breathing, you pass out, or have any pain that radiates into your arms, jaw, or back. Please also return if you have any additional symptoms that are concerning to you. Please begin famotidine 40 mg twice daily, Carafate before meals. Your symptoms appear to be most consistent with stomach or upper intestinal irritation. You need to avoid smoking, sodas, tea, coffee, alcohol, spicy foods , and acidic foods such as citrus fruits, tomato based products, berries, and most fruit juices. Prescriptions: Famotidine 40 mg PO BID #60 tablet Sucralfate [Carafate 1 gm Tablet] 1 gm PO ACHS #120 tablet
[2018-07-19 21:35] VITALS: BP 172/102
--- NOTE | 2018-07-19 22:04 | EKG REPORT ---
SEVERITY:- OTHERWISE NORMAL ECG - SINUS TACHYCARDIA : Confirmed by: Arin Drummond MD 19-Jul-2018 22:03:13
== END 2018-07-19 21:34 | disposition home or self-care (01) ==
LOC: ER 17:27
DX: K20.9 Esophagitis, unspecified (principal); R11.2 Nausea with vomiting, unspecified; I10 Essential (primary) hypertension; Z79.899 Other long term (current) drug therapy; R07.89 Other chest pain; E10.9 Type 1 diabetes mellitus without complications; R00.0 Tachycardia, unspecified; I25.2 Old myocardial infarction
CPT/HCPCS: 93005; 99285; 36415; 82553; 82550; 85025; 80053; 84484; 71045; 93010; J3490 ×5

== ENCOUNTER 2018-10-01 05:09 | Inpatient (IN) | payer MEDICAID ==
[2018-10-01] MEDS ORDERED: ASPIRIN 81 MG TABLET, CHEWABLE PO ONE ×2 (05:19→06:42)
[2018-10-01] MEDS ORDERED: NORMAL SALINE 1000 ML 1,000 ML IV ONE (05:19)
[2018-10-01 05:45] LABS: VENOUS BLOOD HCO3 25.3 mmol/L (20-32); VENOUS BLOOD PCO2 39.2 mmHg (35-63); VENOUS BLOOD PH 7.43 (7.30-7.42)
[2018-10-01 05:51] LABS: ABSOLUTE BASOPHILS # (AUTO) 0.1 10^3/uL (0.0-0.2); ABSOLUTE MONOCYTES (AUTO) 0.6 10^3/uL (0.1-1.4); ABSOLUTE NEUT (AUTO) 9.7 10^3/uL (1.7-8.2); BASOPHILS % (AUTO) 0.5 % (0-2); EOSINOPHILS % (AUTO) 0.2 % (0-6); HEMATOCRIT 43.1 % (37.9-51.0); HEMOGLOBIN 14.1 g/dL (13.5-17.0); LYMPHOCYTES % (AUTO) 8.8 % (13-45); MEAN CORPUSCULAR HEMOGLOBIN 26.7 pg (27.0-33.4); MEAN CORPUSCULAR HGB CONC 32.7 g/dL (32.0-36.0); MEAN CORPUSCULAR VOLUME 82 fl (80-97); PLATELET COUNT 296 10^3/uL (150-450); RED BLOOD COUNT 5.28 10^6/uL (4.35-5.55); RED CELL DISTRIBUTION WIDTH 15.1 % (11.5-14.0); SEGMENTED NEUTROPHILS % (AUTO) 85.5 % (42-78); TOTAL CELLS COUNTED % (AUTO) 100 %; WHITE BLOOD COUNT 11.4 10^3/uL (4.0-10.5)
--- NOTE | 2018-10-01 05:56 | RADIOLOGY REPORT (SQ) ---
EXAM DESCRIPTION: XR CHEST 1 VIEW COMPLETED DATE/TME: 10/01/2018 05:19 CLINICAL HISTORY: 32 years, Male, CP COMPARISON: None. NUMBER OF VIEWS: One TECHNIQUE: AP view of the chest LIMITATIONS: None. FINDINGS: Lungs are clear. There are no pleural abnormalities. Cardiac silhouette and pulmonary vessels are normal. IMPRESSION: No acute cardiopulmonary disease. copyright 2010 [employer]- All Rights Reserved
[2018-10-01 06:06] LABS: ALANINE AMINOTRANSFERASE 16 U/L (21-72); ALBUMIN 4.3 g/dL (3.5-5.0); ALKALINE PHOSPHATASE 109 U/L (38-126); ANION GAP 10 (5-19); ASPARTATE AMINO TRANSFERASE 16 U/L (17-59); BILIRUBIN,DIRECT 0.5 mg/dL (0.0-0.4); BILIRUBIN,TOTAL 0.9 mg/dL (0.2-1.3); BLOOD UREA NITROGEN 23 mg/dL (7-20); CALCIUM 9.3 mg/dL (8.4-10.2); CARBON DIOXIDE 27 mmol/L (22-30); CHLORIDE 95 mmol/L (98-107); CREATINE KINASE 52 U/L (55-170); POTASSIUM 5.3 mmol/L (3.6-5.0); SODIUM 131.9 mmol/L (137-145); TOTAL PROTEIN 7.3 g/dL (6.3-8.2)
[2018-10-01 06:20] LABS: GLUCOSE 679 mg/dL (75-110)
[2018-10-01 06:22] LABS: TROPONIN I < 0.012 ng/mL
[2018-10-01] MEDS ORDERED: NORMAL SALINE 100 ML with INSULIN REGULAR, HUMAN 100 UNIT IV PRN ×2 (06:26)
[2018-10-01] MEDS ORDERED: ONDANSETRON HCL INJ/PF 4 MG/2 ML SDV IV ONE (06:27)
[2018-10-01 06:29] LABS: APPEARANCE,URINE CLEAR; BILIRUBIN,URINE NEGATIVE (NEGATIVE); COLOR,URINE STRAW; GLUCOSE, URINE >=500 mg/dL (NEGATIVE); KETONES,URINE 20 mg/dL (NEGATIVE); LEUKOCYTE ESTERASE,URINE NEGATIVE (NEGATIVE); NITRITE,URINE NEGATIVE (NEGATIVE); PROTEIN,URINE 100 mg/dL (NEGATIVE); URINE SPECIFIC GRAVITY 1.023; UROBILINOGEN,URINE NEGATIVE mg/dL (<2.0)
[2018-10-01] MEDS: NORMAL SALINE 1000 ML 1,000 ML IV PRN ×3 (06:36→23:59)
--- NOTE | 2018-10-01 06:40 | ER Document Report ---
ED Blood Sugar Problem - General Chief Complaint: High Blood Sugar Stated Complaint: BLOOD SUGAR PROBLEMS Time Seen by Provider: 10/01/18 06:09 TRAVEL OUTSIDE OF THE [place] IN LAST 30 DAYS: No - HPI Notes: Patient is a 32-year-old male that presents to the emergency department for chief complaint of hyperglycemia. Patient states around 4 yesterday evening his glucometer started to read "high". At 6 PM he started having substernal chest pain that is sharp and radiates up into his neck and down into his abdomen. He denies any aggravating or relieving factors to his chest pain. He states he does have esophageal strictures and has had similar pain in the past. He did not take any medication at home for pain. Patient states he started having nausea and vomiting last night. He denies any diarrhea. He denies recent illness, fever, chills, shortness of breath and dysuria. Patient states he has been compliant with his home insulin although his current prescription is about to and he does not have any refills. Past Medical History: Diabetes, hypertension, hyperlipidemia, migraines Past Surgical History: Esophageal dilation Social History: Daily tobacco. Denies drugs and alcohol Family History: Reviewed and noncontributory for presenting illness Allergies: Reviewed, see documented allergy list. REVIEW OF SYSTEMS: CONSTITUTIONAL : No fever No chills No diaphoresis No recent illness EENT: No vision changes No congestion No sore throat CARDIOVASCULAR: chest pain No palpitations RESPIRATORY: No shortness of breath No cough No difficulty breathing GASTROINTESTINAL: abdominal pain nausea vomiting No diarrhea GENITOURINARY: No dysuria No hematuria No difficulty urinating MUSCULOSKELETAL: No back pain No leg pain No arm pain SKIN: No rashes No lesions LYMPHATIC: No swollen, enlarged glands. NEUROLOGICAL: No lightheadedness No headache No weakness No paresthesias PSYCHIATRIC: No anxiety No depression PHYSICAL EXAMINATION: Vital signs reviewed, nursing noted reviewed. GENERAL: Mildly diaphoretic, well-nourished and in no acute distress. HEAD: Atraumatic, normocephalic. EYES: Eyes appear normal, extraocular movements intact, sclera anicteric, conjunctiva are normal. ENT: nares patent, oropharynx clear without exudates. Dry mucous membranes. NECK: Normal range of motion, supple without lymphadenopathy LUNGS: Breath sounds clear to auscultation bilaterally and equal. No wheezes rales or rhonchi. HEART: Tachycardic rate and regular rhythm without murmurs ABDOMEN: Soft, nontender, normoactive bowel sounds. No rebound, guarding, or rigidity. No masses appreciated. EXTREMITIES: Nontender, good range of motion, no pitting or edema. NEUROLOGICAL: No focal neurological deficits. Moves all extremities spontaneously Motor and sensory grossly intact on exam. PSYCH: Normal mood, normal affect. SKIN: Warm, Dry, normal turgor, no rashes or lesions noted on exposed skin - Related Data Allergies/Adverse Reactions: No Known Allergies Allergy (Verified 04/13/18 02:08) Past Medical History - Social History Smoking Status: Current Every Day Smoker Family History: Reviewed & Not Pertinent, DM, Hypertension Patient has suicidal ideation: No Patient has homicidal ideation: No - Past Medical History Cardiac Medical History: Reports: Hx Heart Attack - May 2017., Hx H ypertension Denies: Hx Congestive Heart Failure, Hx DVT, Hx Hypercholesterolemia, Hx Pulmonary Embolism Pulmonary Medical History: Reports: Hx Asthma - as child Denies: Hx COPD, Hx Sleep Apnea Neurological Medical History: Reports: Hx Migraine. Denies: Hx Seizures Endocrine Medical History: Reports: Hx Diabetes Mellitus Type 1. Denies: Hx Diabetes Mellitus Type 2, Hx Hyperthyroidism, Hx Hypothyroidism Renal/ Medical History: Denies: Hx Peritoneal Dialysis GI Medical History: Denies: Hx Cirrhosis, Hx Gastroesophageal Reflux Disease, Hx Hepatitis Musculoskeletal Medical History: Denies Hx Arthritis Psychiatric Medical History: Reports: Hx Anxiety, Hx Bipolar Disorder, Hx Depression, Hx Schizophrenia Infectious Medical History: Denies: Hx C-Diff, Hx Hepatitis, Hx MRSA Past Surgical History: Reports: Hx Appendectomy, Hx Oral Surgery - wisdom teeth, Other - [place] teeth extraction - Immunizations Hx Diphtheria, Pertussis, Tetanus Vaccination: Yes Hx Pneumococcal Vaccination: 09/16/00 Physical Exam - Vital signs Vitals: Temp Resp BP Pulse Ox 99.0 F 16 153/89 H 95 10/01/18 05:17 10/01/18 05:17 10/01/18 05:17 10/01/18 05:17 Course - Re-evaluation Re-evalutation: 10/01/18 06:37 Vitals reviewed. Nursing notes reviewed. Patient is dry with mild diaphoresis. He has a glucose of 679 and was started on aggressive IV hydration as well as insulin for his hyperglycemia. Patient does not have an acidosis or anion gap and is not meeting requirements for DKA. He denies any known history of HHNK. Patient has a mildly elevated potassium which should improve with hydration and insulin. He was complaining of chest pain and was given aspirin. He does have a history of DC and some changes on his EKG today. I believe these changes are most likely related to his hyperglycemic state however his troponins will be trended and he will remain on telemetry monitoring for close cardiac evaluation. Patient was also given Zofran and GI cocktail for further symptomatic management. His chest pain may be more related to his esophageal strictures and frequent vomiting. Patient reported no improvement after 1 L IV hydration. He will be admitted to the hospital for further management. Laboratory 10/01/18 10/01/18 10/01/18 05:30 05:30 05:30 WBC 11.4 H RBC 5.28 Hgb 14.1 Hct 43.1 MCV 82 MCH 26.7 L MCHC 32.7 RDW 15.1 H Plt Count 296 Seg Neutrophils % 85.5 H Lymphocytes % 8.8 L Monocytes % 5.0 Eosinophils % 0.2 Basophils % 0.5 Absolute Neutrophils 9.7 H Absolute Lymphocytes 1.0 Absolute Monocytes 0.6 Absolute Eosinophils 0.0 Absolute Basophils 0.1 VBG pH 7.43 H VBG pCO2 39.2 VBG HCO3 25.3 VBG Base Excess 1.0 Sodium 131.9 L Potassium 5.3 H Chloride 95 L Carbon Dioxide 27 Anion Gap 10 BUN 23 H Creatinine 1.63 H Est GFR ( Amer) 59 L Est GFR (Non-Af Amer) 49 L Glucose 679 H* Calcium 9.3 Total Bilirubin 0.9 Direct Bilirubin 0.5 H Neonat Total Bilirubin Not Reportable Neonat Direct Bilirubin Not Reportable Neonat Indirect Bili Not Reportable AST 16 L ALT 16 L Alkaline Phosphatase 109 Creatine Kinase 52 L CK-MB (CK-2) Troponin I Total Protein 7.3 Albumin 4.3 Urine Color Urine Appearance Urine pH Ur Specific [place] Urine Protein Urine Glucose (UA) Urine Ketones Urine Blood Urine Nitrite Urine Bilirubin Urine Urobilinogen Ur Leukocyte Esterase Urine WBC (Auto) Urine RBC (Auto) Urine Ascorbic Acid 10/01/18 10/01/18 05:30 06:15 WBC RBC Hgb Hct MCV MCH MCHC RDW Plt Count Seg Neutrophils % Lymphocytes % Monocytes % Eosinophils % Basophils % Absolute Neutrophils Absolute Lymphocytes Absolute Monocytes Absolute Eosinophils Absolute Basophils VBG pH VBG pCO2 VBG HCO3 VBG Base Excess Sodium Potassium Chloride Carbon Dioxide Anion Gap BUN Creatinine Est GFR ( Amer) Est GFR (Non-Af Amer) Glucose Calcium Total Bilirubin Direct Bilirubin Neonat Total Bilirubin Neonat Direct Bilirubin Neonat Indirect Bili AST ALT Alkaline Phosphatase Creatine Kinase CK-MB (CK-2) 0.30 Troponin I < 0.012 Total Protein Albumin Urine Color STRAW Urine Appearance CLEAR Urine pH 6.0 Ur Specific [place] 1.023 Urine Protein 100 H Urine Glucose (UA) >=500 H Urine Ketones 20 H Urine Blood NEGATIVE Urine Nitrite NEGATIVE Urine Bilirubin NEGATIVE Urine Urobilinogen NEGATIVE Ur Leukocyte Esterase NEGATIVE Urine WBC (Auto) 1 Urine RBC (Auto) 2 Urine Ascorbic Acid NEGATIVE 10/01/18 07:24 Patient's care discussed with Dr. Kirkland who has accepted admission - Vital Signs Vital signs: Temp Pulse Resp BP Pulse Ox 99.0 F 21 H 169/107 H 97 10/01/18 05:17 10/01/18 06:01 10/01/18 06:00 10/01/18 06:01 - Laboratory Result Diagrams: 10/01/18 05:30 10/01/18 05:30 Laboratory results interpreted by me: 10/01/18 10/01/18 10/01/18 05:14 05:30 05:30 WBC 11.4 H MCH 26.7 L RDW 15.1 H Seg Neutrophils % 85.5 H Lymphocytes % 8.8 L Absolute Neutrophils 9.7 H VBG pH Sodium 131.9 L Potassium 5.3 H Chloride 95 L BUN 23 H Creatinine 1.63 H Est GFR ( Amer) 59 L Est GFR (Non-Af Amer) 49 L Glucose 679 H* POC Glucose > 550 H* Direct Bilirubin 0.5 H AST 16 L ALT 16 L Creatine Kinase 52 L Urine Protein Urine Glucose (UA) Urine Ketones 10/01/18 10/01/18 05:30 06:15 WBC MCH RDW Seg Neutrophils % Lymphocytes % Absolute Neutrophils VBG pH 7.43 H Sodium Potassium Chloride BUN Creatinine Est GFR ( Amer) Est GFR (Non-Af Amer) Glucose POC Glucose Direct Bilirubin AST ALT Creatine Kinase Urine Protein 100 H Urine Glucose (UA) >=500 H Urine Ketones 20 H - EKG Interpretation by Me Additional EKG results interpreted by me: 10/01/18 06:40 Interpreted by myself [id number]: Sinus tachycardia, rate 128, normal axis, no ectopy, hyper acute T wave V2 which is isolated, nonspecific T wave changes inferiorly and laterally compared to 07/19/18 Discharge - Discharge Clinical Impression: Hyperglycemia, Hyperosmolality, Hyperkalemia, Dehydration Chest pain Qualifiers: Chest pain type: unspecified Qualified Code(s): R07.9 - Chest pain, unspecified Condition: Stable Disposition: ADMITTED INPATIENT Admitting Provider: [facility] Unit Admitted: Telemetry
[2018-10-01] MEDS ORDERED: METOCLOPRAMIDE HCL ORAL SOLN 10 MG/10 ML UDCUP PO ONE (06:43)
[2018-10-01] MEDS ORDERED: MAG HYDROX/AL HYDROX/SIMETH SUSP 30 ML UDCUP PO ONE (06:43)
[2018-10-01] MEDS ORDERED: LIDOCAINE 2% VISCOUS SOLN 20 ML UDCUP PO ONE (06:43)
[2018-10-01] MEDS ORDERED: INSULIN REG, HUMAN 100 UNIT/ML 3 ML VIAL (PYX) ONE (06:50)
[2018-10-01] MEDS ORDERED: PANTOPRAZOLE SODIUM 40 MG VIAL IV ONE (09:19)
[2018-10-01] MEDS ORDERED: (PENDING PHARMACY ID) (Ranitidine Hcl [Zantac 150 Mg Tablet] 150 MG) PO PRN (13:39)
[2018-10-01] MEDS ORDERED: INSULIN LISPRO 100 UNIT/ML 3 ML VIAL SUBCUT PRN (13:44)
[2018-10-01] MEDS ORDERED: GLUCAGON,HUMAN RECOMB 1 MG INJ IM PRN (13:44)
[2018-10-01] MEDS ORDERED: DEXTROSE 50%-WATER 25 GM/50 ML DISP.SYRIN IV PRN ×2 (13:44)
[2018-10-01] MEDS ORDERED: DEXTROSE 40% GEL 15 GM TUBE PO PRN ×2 (13:44)
[2018-10-01] MEDS ORDERED: (PENDING PHARMACY ID) (Mirtazapine [Remeron] 45 MG) PO SCH (13:45)
[2018-10-01 14:17] LABS: INTERNATIONAL RATION (INR) 0.99; PROTHROMBIN TIME 13.6 SEC (11.4-15.4)
[2018-10-01 14:18] LABS: PARTIAL THROMBOPLASTIN TIME 31.3 SEC (23.5-35.8)
[2018-10-01 14:44] LABS: FREE T4 (FREE THYROXINE) 1.38 ng/dL (0.78-2.19)
[2018-10-01] MEDS ORDERED: FAMOTIDINE 20 MG TABLET PO PRN (14:47)
[2018-10-01 14:58] LABS: THYROID STIMULATING HORMONE 0.1 uIU/mL (0.47-4.68)
[2018-10-01] MEDS ORDERED: INSULIN GLARGINE,HUM.REC.ANLOG 1,000 UNIT/10 ML UNIT SUBCUT SCH (15:00)
[2018-10-01] MEDS: ENOXAPARIN SODIUM INJ 40 MG/0.4 ML DISP.SYRIN SUBCUT SCH (15:09)
[2018-10-01] MEDS: AMLODIPINE BESYLATE 10 MG TABLET PO SCH (15:09)
[2018-10-01] MEDS: CHLORPROMAZINE HCL 50 MG TABLET PO SCH (15:09)
[2018-10-01] MEDS ORDERED: INSULIN LISPRO 100 UNIT/ML 3 ML VIAL SUBCUT SCH (16:00)
[2018-10-01] MEDS ORDERED: MIRTAZAPINE 15 MG TABLET PO SCH (16:00)
[2018-10-01] MEDS: SUCRALFATE 1 GM TABLET PO SCH (17:02)
[2018-10-01] MEDS: LANSOPRAZOLE 30 MG TAB.RAP.DR PO SCH (17:02)
[2018-10-01] MEDS: OXYCODONE-ACETAMINOPHEN 5-325 MG TABLET PO PRN (17:03)
[2018-10-01] MEDS: INSULIN GLARGINE,HUM.REC.ANLOG 300 UNIT/3 ML INSULN.PEN SUBCUT SCH (17:04)
--- NOTE | 2018-10-01 17:58 | EKG REPORT ---
SEVERITY:- BORDERLINE ECG - SINUS TACHYCARDIA BORDERLINE INFERIOR Q WAVES BORDERLINE T ABNORMALITIES, DIFFUSE LEADS : Confirmed by: Zakiya Francis 01-Oct-2018 17:58:30
[2018-10-01] MEDS: INSULIN LISPRO 100 UNIT/ML 3 ML VIAL SUBCUT SCH (18:33)
--- NOTE | 2018-10-01 19:13 | PDOC H&P ---
History of Present Illness Admission Date/PCP: 10/01/18 13:41 History of Present Illness: LENA SCHULZ is a 32 year old male, He has type 1 diabetes mellitus, extremely noncompliant, he came to the emergency room this morning for evaluation of uncontrolled diabetes mellitus. In the Emergency room he was found to have extremely elevated serum glucose over 600 but the was not in DKA. Patient was last seen in the office in April last year when he came for the first time to establish with us, he has not return for follow-up visit my understanding was that he follows with Dr. Fisher ,but with DR Fisher ' said patient has not been following with him. Patient apparently is not seeing any provider for the management of his Diabetes mellitus. He does not know how to count calories, he does not take insulin based on calorie ingested, he does not know how to correct serum glucose before meals.He also complains of vomiting Past Medical History Cardiac Medical History: Reports: Myocardial Infarction - May 2017., Hypertension Pulmonary Medical History: Reports: Asthma - as child Neurological Medical History: Reports: Migraine Endocrine Medical History: Reports: Diabetes Mellitus Type 1 Psychiatric Medical History: Reports: Bipolar Disorder, Depression Hematology: Reports: Anemia Past Surgical History Past Surgical History: Reports: Appendectomy, Other - [place] teeth extraction Social History Smoking Status: Current Some Day Smoker Cigarettes Packs Per Day: 1 Number of Years Smokin Last Time Smoked: 10/01/18 Frequency of Alcohol Use: None Hx Recreational Drug Use: No Drugs: None Hx Prescription Drug Abuse: No - Advance Directive Resuscitation Status: Full Code Family History Family History: Reviewed & Not Pertinent, DM, Hypertension Parental Family History Reviewed: Yes Children Family History Reviewed: Yes Sibling(s) Family History Reviewed.: Yes Medication/Allergy Home Medications: Amlodipine Besylate [Norvasc 10 mg Tablet] 10 mg PO QAM 10/01/18 Chlorpromazine HCl [Thorazine 50 mg Tablet] 50 mg PO BID 10/01/18 Insulin Glargine,Hum.rec.anlog [Lantus Insulin 100 Unit/1 ml 10 ml] 35 units SQ DAILY 10/01/18 Insulin Lispro [Humalog Insulin (Lispro) 100 unit/mL] 5 units SQ AC 10/01/18 Mirtazapine [Remeron] 45 mg PO DAILY 10/01/18 Omeprazole 40 mg PO BID 10/01/18 Quetiapine Fumarate [Seroquel] 800 mg PO QHS 10/01/18 Ranitidine HCl [Zantac 150 mg Tablet] 150 mg PO BIDP PRN 10/01/18 Sucralfate [Carafate 1 gm Tablet] 1 gm PO Q6 10/01/18 Trazodone HCl [Desyrel 50 mg Tablet] 50 mg PO QHS 10/01/18 Allergies/Adverse Reactions: No Known Allergies Allergy (Verified 10/01/18 12:56) Review of Systems Constitutional: ABSENT: chills, fever(s), headache(s), weight gain, weight loss Eyes: ABSENT: visual disturbances Ears: ABSENT: hearing changes Cardiovascular: ABSENT: chest pain, dyspnea on exertion, edema, orthropnea, palpitations Respiratory: ABSENT: cough, hemoptysis Gastrointestinal: PRESENT: nausea, vomiting. ABSENT: abdominal pain, constipation, diarrhea, hematemesis, hematochezia Genitourinary: ABSENT: dysuria, hematuria Musculoskeletal: ABSENT: joint swelling Integumentary: ABSENT: rash, wounds Neurological: ABSENT: abnormal gait, abnormal speech, confusion, dizziness, focal weakness, syncope Psychiatric: ABSENT: anxiety, depression, homidical ideation, suicidal ideation Endocrine: ABSENT: cold intolerance, heat intolerance, menstrual abnormalities, polydipsia, polyuria Hematologic/Lymphatic: ABSENT: easy bleeding, easy bruising, lymphadenopathy Physical Exam Vital Signs: Temp Pulse Resp BP Pulse Ox 98.4 F 117 H 17 163/90 H 100 10/01/18 16:17 10/01/18 16:17 10/01/18 16:17 10/01/18 16:17 10/01/18 16:17 Intake & Output 09/30/18 10/01/18 10/02/18 06:59 06:59 06:59 Intake Total 17 2583 Balance 17 2583 Weight 86.183 kg General appearance: PRESENT: no acute distress Head exam: PRESENT: atraumatic, normocephalic Eye exam: PRESENT: PERRLA Ear exam: PRESENT: normal external ear exam Mouth exam: PRESENT: dry mucosa, moist, tongue midline Neck exam: PRESENT: full ROM Respiratory exam: PRESENT: clear to auscultation juan ramon Cardiovascular exam: PRESENT: RRR, +S1, +S2 Pulses: PRESENT: normal dorsalis pedis pul, +2 pedal pulses bilateral Vascular exam: PRESENT: normal capillary refill GI/Abdominal exam: PRESENT: normal bowel sounds, soft Rectal exam: PRESENT: deferred Neurological exam: PRESENT: alert, CN II-XII grossly intact Psychiatric exam: PRESENT: appropriate affect, normal mood Skin exam: PRESENT: dry, intact, warm Results Laboratory Results: 10/01/18 05:30 10/01/18 05:30 10/01/18 10/01/18 10/01/18 05:30 05:30 05:30 WBC 11.4 H RBC 5.28 Hgb 14.1 Hct 43.1 MCV 82 MCH 26.7 L MCHC 32.7 RDW 15.1 H Plt Count 296 Seg Neutrophils % 85.5 H Lymphocytes % 8.8 L Monocytes % 5.0 Eosinophils % 0.2 Basophils % 0.5 Absolute Neutrophils 9.7 H Absolute Lymphocytes 1.0 Absolute Monocytes 0.6 Absolute Eosinophils 0.0 Absolute Basophils 0.1 VBG pH 7.43 H VBG pCO2 39.2 VBG HCO3 25.3 VBG Base Excess 1.0 Sodium 131.9 L Potassium 5.3 H Chloride 95 L Carbon Dioxide 27 Anion Gap 10 BUN 23 H Creatinine 1.63 H Est GFR ( Amer) 59 L Est GFR (Non-Af Amer) 49 L Glucose 679 H* Calcium 9.3 Phosphorus Magnesium Total Bilirubin 0.9 AST 16 L ALT 16 L Alkaline Phosphatase 109 Total Protein 7.3 Albumin 4.3 TSH Free T4 Urine Color Urine Appearance Urine pH Ur Specific [place] Urine Protein Urine Glucose (UA) Urine Ketones Urine Blood Urine Nitrite Ur Leukocyte Esterase Urine WBC (Auto) Urine RBC (Auto) 10/01/18 10/01/18 10/01/18 06:15 14:01 14:01 WBC RBC Hgb Hct MCV MCH MCHC RDW Plt Count Seg Neutrophils % Lymphocytes % Monocytes % Eosinophils % Basophils % Absolute Neutrophils Absolute Lymphocytes Absolute Monocytes Absolute Eosinophils Absolute Basophils VBG pH VBG pCO2 VBG HCO3 VBG Base Excess Sodium Potassium Chloride Carbon Dioxide Anion Gap BUN Creatinine Est GFR ( Amer) Est GFR (Non-Af Amer) Glucose Calcium Phosphorus 4.0 Magnesium 2.2 Total Bilirubin AST ALT Alkaline Phosphatase Total Protein Albumin TSH 0.10 L Free T4 1.38 Urine Color STRAW Urine Appearance CLEAR Urine pH 6.0 Ur Specific [place] 1.023 Urine Protein 100 H Urine Glucose (UA) >=500 H Urine Ketones 20 H Urine Blood NEGATIVE Urine Nitrite NEGATIVE Ur Leukocyte Esterase NEGATIVE Urine WBC (Auto) 1 Urine RBC (Auto) 2 10/01/18 10/01/18 10/01/18 05:30 05:30 10:13 Creatine Kinase 52 L CK-MB (CK-2) 0.30 Troponin I < 0.012 < 0.012 10/01/18 10/01/18 14:01 14:01 Creatine Kinase 53 L CK-MB (CK-2) Troponin I < 0.012 Impressions: Chest X-Ray 10/01/18 05:19 IMPRESSION: No acute cardiopulmonary disease. copyright 2010 [employer]- All Rights Reserved Assessment & Plan - Diagnosis (1) Type 1 diabetes mellitus with hyperosmolarity without nonketotic hyperglyce carmen hyperosmolar coma Is this a current diagnosis for this admission?: Yes Plan: Start IV fluid, insulin drip (2) Acute kidney injury Is this a current diagnosis for this admission?: Yes Plan: Start IV fluid therapy, this is most likely prerenal azotemia
[2018-10-01] MEDS ORDERED: (PENDING PHARMACY ID) (Quetiapine Fumarate [Seroquel] 800 MG) PO SCH (22:00)
[2018-10-01] MEDS: MIRTAZAPINE 15 MG TABLET PO SCH (22:08)
[2018-10-01] MEDS: QUETIAPINE FUMARATE 100 MG TABLET PO SCH (22:08)
[2018-10-01] MEDS: TRAZODONE HCL 50 MG TABLET PO SCH (22:08)
[2018-10-02 05:42] LABS: HEMATOCRIT 39.4 % (37.9-51.0); HEMOGLOBIN 12.8 g/dL (13.5-17.0); MEAN CORPUSCULAR HEMOGLOBIN 26.7 pg (27.0-33.4); MEAN CORPUSCULAR HGB CONC 32.6 g/dL (32.0-36.0); MEAN CORPUSCULAR VOLUME 82 fl (80-97); PLATELET COUNT 191 10^3/uL (150-450); RED BLOOD COUNT 4.81 10^6/uL (4.35-5.55); RED CELL DISTRIBUTION WIDTH 14.9 % (11.5-14.0); WHITE BLOOD COUNT 9.7 10^3/uL (4.0-10.5)
[2018-10-02] MEDS: LANSOPRAZOLE 30 MG TAB.RAP.DR PO SCH ×2 (06:03→17:27)
[2018-10-02] MEDS: SUCRALFATE 1 GM TABLET PO SCH ×5 (06:03→23:30)
[2018-10-02 06:06] LABS: ALANINE AMINOTRANSFERASE 17 U/L (21-72); ALBUMIN 3.7 g/dL (3.5-5.0); ALKALINE PHOSPHATASE 109 U/L (38-126); ANION GAP 12 (5-19); ASPARTATE AMINO TRANSFERASE 11 U/L (17-59); BILIRUBIN,DIRECT 0.4 mg/dL (0.0-0.4); BILIRUBIN,TOTAL 0.5 mg/dL (0.2-1.3); BLOOD UREA NITROGEN 25 mg/dL (7-20); CALCIUM 8.9 mg/dL (8.4-10.2); CARBON DIOXIDE 22 mmol/L (22-30); CHLORIDE 97 mmol/L (98-107); CHOLESTEROL 236.24 mg/dL (0-200); POTASSIUM 5.4 mmol/L (3.6-5.0); SODIUM 130.6 mmol/L (137-145); TOTAL PROTEIN 6.3 g/dL (6.3-8.2); TRIGLYCERIDES 367 mg/dL (<150)
[2018-10-02 06:20] LABS: VLDL CHOLESTEROL 73.4 mg/dL (10-31)
[2018-10-02 06:21] LABS: GLUCOSE 604 mg/dL (75-110)
[2018-10-02] MEDS: INSULIN LISPRO 100 UNIT/ML 3 ML VIAL SUBCUT SCH ×6 (07:06→17:27)
[2018-10-02] MEDS: AMLODIPINE BESYLATE 10 MG TABLET PO SCH (07:55)
[2018-10-02] MEDS: OXYCODONE-ACETAMINOPHEN 5-325 MG TABLET PO PRN ×4 (07:56→21:47)
[2018-10-02] MEDS: CHLORPROMAZINE HCL 50 MG TABLET PO SCH ×2 (09:35→17:26)
[2018-10-02] MEDS: ENOXAPARIN SODIUM INJ 40 MG/0.4 ML DISP.SYRIN SUBCUT SCH (09:35)
[2018-10-02] MEDS: NORMAL SALINE 1000 ML 1,000 ML IV PRN ×2 (12:00→21:48)
[2018-10-02 15:39] LABS: APPEARANCE,URINE CLEAR; BILIRUBIN,URINE NEGATIVE (NEGATIVE); COLOR,URINE YELLOW; GLUCOSE, URINE >=500 mg/dL (NEGATIVE); KETONES,URINE NEGATIVE (NEGATIVE); LEUKOCYTE ESTERASE,URINE NEGATIVE (NEGATIVE); NITRITE,URINE NEGATIVE (NEGATIVE); PROTEIN,URINE >=500 mg/dL (NEGATIVE); URINE SPECIFIC GRAVITY 1.016; UROBILINOGEN,URINE NEGATIVE mg/dL (<2.0)
[2018-10-02 16:07] LABS: URINE AMPHETAMINES SCREEN NEGATIVE; URINE BARBITURATES SCREEN NEGATIVE; URINE BENZODIAZEPINES SCREEN NEGATIVE; URINE COCAINE SCREEN NEGATIVE; URINE MARIJUANA (THC) SCREEN NEGATIVE; URINE METHADONE SCREEN NEGATIVE; URINE PHENCYCLIDINE SCREEN NEGATIVE
[2018-10-02] MEDS: INSULIN GLARGINE,HUM.REC.ANLOG 300 UNIT/3 ML INSULN.PEN SUBCUT SCH (17:27)
--- NOTE | 2018-10-02 19:49 | PDOC PROGRESS REPORT ---
Subjective Progress Note for:: 10/02/18 Subjective:: Patient seen by the bedside he needs to know how to count calories consultation requested from tip mender to teach him how to count carbohydrates, he has type 1 diabetes the bolus dose given a is based on the calorie ingested this was explained to the patient he has to understand caloric count for him to be able to control type 1 diabetes effectively Reason For Visit: UNCONTROLLED T2DM,POOR COMPLIANCE Physical Exam Vital Signs: Temp Pulse Resp BP Pulse Ox 97.7 F 91 16 137/90 H 98 10/02/18 16:26 10/02/18 16:26 10/02/18 16:26 10/02/18 16:26 10/02/18 16:26 Intake & Output 10/01/18 10/02/18 10/03/18 06:59 06:59 06:59 Intake Total 17 4712 2510 Balance 17 4712 2510 Weight 86.183 kg General appearance: PRESENT: no acute distress Eye exam: PRESENT: PERRLA Respiratory exam: PRESENT: clear to auscultation juan ramon Cardiovascular exam: PRESENT: +S1, +S2 GI/Abdominal exam: PRESENT: soft Neurological exam: PRESENT: alert Results Laboratory Results: 10/02/18 04:48 10/02/18 04:48 10/01/18 10/02/18 10/02/18 15:15 04:48 04:48 WBC 9.7 RBC 4.81 Hgb 12.8 L Hct 39.4 MCV 82 MCH 26.7 L MCHC 32.6 RDW 14.9 H Plt Count 191 Sodium 130.6 L Potassium 5.4 H Chloride 97 L Carbon Dioxide 22 Anion Gap 12 BUN 25 H Creatinine 1.55 H Est GFR ( Amer) > 60 Est GFR (Non-Af Amer) 52 L Glucose 604 H* Calcium 8.9 Total Bilirubin 0.5 AST 11 L ALT 17 L Alkaline Phosphatase 109 Total Protein 6.3 Albumin 3.7 Triglycerides 367 H Cholesterol 236.24 H LDL Cholesterol Direct Not Reportable VLDL Cholesterol 73.4 H HDL Cholesterol 37 L Urine Color YELLOW Urine Appearance CLEAR Urine pH 6.0 Ur Specific [place] 1.016 Urine Protein >=500 H Urine Glucose (UA) >=500 H Urine Ketones NEGATIVE Urine Blood NEGATIVE Urine Nitrite NEGATIVE Ur Leukocyte Esterase NEGATIVE Urine WBC (Auto) 1 Urine RBC (Auto) 1 10/01/18 10/01/18 10/01/18 05:30 05:30 10:13 Creatine Kinase 52 L CK-MB (CK-2) 0.30 Troponin I < 0.012 < 0.012 10/01/18 10/01/18 14:01 14:01 Creatine Kinase 53 L CK-MB (CK-2) Troponin I < 0.012 Impressions: Chest X-Ray 10/01/18 05:19 IMPRESSION: No acute cardiopulmonary disease. copyright 2010 [employer]- All Rights Reserved Assessment & Plan - Diagnosis (1) Type 1 diabetes mellitus with hyperosmolarity without nonketotic hyperglycemic hyperosmolar coma Is this a current diagnosis for this admission?: Yes Plan: Continue treatment (2) Acute kidney injury Is this a current diagnosis for this admission?: Yes Plan: Continue hydration
[2018-10-02] MEDS: QUETIAPINE FUMARATE 100 MG TABLET PO SCH (21:45)
[2018-10-02] MEDS: TRAZODONE HCL 50 MG TABLET PO SCH (21:46)
[2018-10-02] MEDS: MIRTAZAPINE 15 MG TABLET PO SCH (21:46)
[2018-10-03] MEDS: SUCRALFATE 1 GM TABLET PO SCH ×3 (05:09→18:46)
[2018-10-03] MEDS: LANSOPRAZOLE 30 MG TAB.RAP.DR PO SCH ×2 (05:10→17:39)
[2018-10-03 06:18] LABS: HEMATOCRIT 37.5 % (37.9-51.0); HEMOGLOBIN 12.5 g/dL (13.5-17.0); MEAN CORPUSCULAR HEMOGLOBIN 26.8 pg (27.0-33.4); MEAN CORPUSCULAR HGB CONC 33.4 g/dL (32.0-36.0); MEAN CORPUSCULAR VOLUME 80 fl (80-97); PLATELET COUNT 200 10^3/uL (150-450); RED BLOOD COUNT 4.67 10^6/uL (4.35-5.55); RED CELL DISTRIBUTION WIDTH 15.1 % (11.5-14.0); WHITE BLOOD COUNT 7.4 10^3/uL (4.0-10.5)
[2018-10-03] MEDS: OXYCODONE-ACETAMINOPHEN 5-325 MG TABLET PO PRN ×3 (06:20→19:17)
[2018-10-03 06:39] LABS: ALANINE AMINOTRANSFERASE 20 U/L (21-72); ALBUMIN 3.3 g/dL (3.5-5.0); ALKALINE PHOSPHATASE 86 U/L (38-126); ANION GAP 7 (5-19); ASPARTATE AMINO TRANSFERASE 12 U/L (17-59); BILIRUBIN,DIRECT 0.3 mg/dL (0.0-0.4); BILIRUBIN,TOTAL 0.3 mg/dL (0.2-1.3); BLOOD UREA NITROGEN 18 mg/dL (7-20); CALCIUM 8.7 mg/dL (8.4-10.2); CARBON DIOXIDE 26 mmol/L (22-30); CHLORIDE 103 mmol/L (98-107); GLUCOSE 257 mg/dL (75-110); POTASSIUM 4.1 mmol/L (3.6-5.0); SODIUM 136.4 mmol/L (137-145); TOTAL PROTEIN 5.7 g/dL (6.3-8.2)
[2018-10-03] MEDS: INSULIN LISPRO 100 UNIT/ML 3 ML VIAL SUBCUT SCH ×6 (09:12→18:04)
[2018-10-03] MEDS: CHLORPROMAZINE HCL 50 MG TABLET PO SCH ×2 (10:06→17:39)
[2018-10-03] MEDS: AMLODIPINE BESYLATE 10 MG TABLET PO SCH (10:06)
[2018-10-03] MEDS: ENOXAPARIN SODIUM INJ 40 MG/0.4 ML DISP.SYRIN SUBCUT SCH (10:06)
[2018-10-03] MEDS: INSULIN GLARGINE,HUM.REC.ANLOG 300 UNIT/3 ML INSULN.PEN SUBCUT SCH (18:46)
[2018-10-03] MEDS: TRAZODONE HCL 50 MG TABLET PO SCH (21:34)
[2018-10-03] MEDS: MIRTAZAPINE 15 MG TABLET PO SCH (21:34)
[2018-10-03] MEDS: QUETIAPINE FUMARATE 100 MG TABLET PO SCH (21:42)
--- NOTE | 2018-10-03 21:46 | PDOC PROGRESS REPORT ---
Subjective Progress Note for:: 10/03/18 Subjective:: Patient was seen by the bedside, I explained to him that he has to understand the concept of caloric count, correction of blood sugar when off target, his target is to have pre-meal glucose of 80-120 he has to bolus insulin with meal based on the carbohydrate content in the food and he has to give insulin for correction to achieve a target of 80-120 on the basis of measure glucose - 12330 Reason For Visit: UNCONTROLLED T2DM,POOR COMPLIANCE Physical Exam Vital Signs: Temp Pulse Resp BP Pulse Ox 98.4 F 106 H 16 158/106 H 100 10/03/18 19:36 10/03/18 19:36 10/03/18 19:36 10/03/18 19:40 10/03/18 19:36 Intake & Output 10/02/18 10/03/18 10/04/18 06:59 06:59 06:59 Intake Total 4712 3940 2495 Balance 4712 3940 2495 Weight 89 kg General appearance: PRESENT: no acute distress Head exam: PRESENT: atraumatic, normocephalic Eye exam: PRESENT: conjunctiva pink, EOMI, PERRLA Ear exam: PRESENT: normal external ear exam Mouth exam: PRESENT: moist, tongue midline Neck exam: PRESENT: full ROM Respiratory exam: PRESENT: clear to auscultation juan ramon Cardiovascular exam: PRESENT: RRR, +S1, +S2 Pulses: PRESENT: normal dorsalis pedis pul, +2 pedal pulses bilateral Vascular exam: PRESENT: normal capillary refill GI/Abdominal exam: PRESENT: normal bowel sounds, soft Rectal exam: PRESENT: deferred Neurological exam: PRESENT: alert, awake, oriented to person, oriented to place, oriented to time, oriented to situation, CN II-XII grossly intact Psychiatric exam: PRESENT: appropriate affect, normal mood Skin exam: PRESENT: dry, intact, warm Results Laboratory Results: 10/03/18 05:09 10/03/18 05:09 10/03/18 10/03/18 05:09 05:09 WBC 7.4 RBC 4.67 Hgb 12.5 L Hct 37.5 L MCV 80 MCH 26.8 L MCHC 33.4 RDW 15.1 H Plt Count 200 Sodium 136.4 L Potassium 4.1 Chloride 103 Carbon Dioxide 26 Anion Gap 7 BUN 18 Creatinine 1.40 H Est GFR ( Amer) > 60 Est GFR (Non-Af Amer) 58 L Glucose 257 H Calcium 8.7 Total Bilirubin 0.3 AST 12 L ALT 20 L Alkaline Phosphatase 86 Total Protein 5.7 L Albumin 3.3 L 10/01/18 10/01/18 10/01/18 05:30 05:30 10:13 Creatine Kinase 52 L CK-MB (CK-2) 0.30 Troponin I < 0.012 < 0.012 10/01/18 10/01/18 14:01 14:01 Creatine Kinase 53 L CK-MB (CK-2) Troponin I < 0.012 Impressions: Chest X-Ray 10/01/18 05:19 IMPRESSION: No acute cardiopulmonary disease. copyright 2011 [employer]- All Rights Reserved Assessment & Plan - Diagnosis (1) Type 1 diabetes mellitus with hyperosmolarity without nonketotic hypergl ycemic hyperosmolar coma Is this a current diagnosis for this admission?: Yes Plan: I advised him to stay the weekend to properly understand the concept of correlation of blood sugar and also on how to bolus insulin with meals on the basis of caloric counts. He was seen today by the healthcare educator, he was educated today on the concept of caloric count and how to achieve same when discharged from the hospital (2) Acute kidney injury Is this a current diagnosis for this admission?: Yes Plan: This continues to improve with hydration
[2018-10-04] MEDS: SUCRALFATE 1 GM TABLET PO SCH ×5 (00:37→23:02)
[2018-10-04] MEDS: NORMAL SALINE 1000 ML 1,000 ML IV PRN ×2 (00:38→10:16)
[2018-10-04] MEDS: OXYCODONE-ACETAMINOPHEN 5-325 MG TABLET PO PRN ×4 (01:57→21:45)
[2018-10-04] MEDS: LANSOPRAZOLE 30 MG TAB.RAP.DR PO SCH ×2 (05:59→17:56)
[2018-10-04 06:47] LABS: HEMATOCRIT 39.3 % (37.9-51.0); HEMOGLOBIN 13.2 g/dL (13.5-17.0); MEAN CORPUSCULAR HEMOGLOBIN 26.6 pg (27.0-33.4); MEAN CORPUSCULAR HGB CONC 33.6 g/dL (32.0-36.0); MEAN CORPUSCULAR VOLUME 79 fl (80-97); PLATELET COUNT 250 10^3/uL (150-450); RED BLOOD COUNT 4.96 10^6/uL (4.35-5.55); RED CELL DISTRIBUTION WIDTH 15.3 % (11.5-14.0); WHITE BLOOD COUNT 6.1 10^3/uL (4.0-10.5)
[2018-10-04 06:56] LABS: ALANINE AMINOTRANSFERASE 19 U/L (21-72); ALBUMIN 3.4 g/dL (3.5-5.0); ALKALINE PHOSPHATASE 85 U/L (38-126); ASPARTATE AMINO TRANSFERASE 13 U/L (17-59); BILIRUBIN,DIRECT 0.2 mg/dL (0.0-0.4); BILIRUBIN,TOTAL 0.2 mg/dL (0.2-1.3); BLOOD UREA NITROGEN 12 mg/dL (7-20); GLUCOSE 103 mg/dL (75-110); POTASSIUM 3.7 mmol/L (3.6-5.0); TOTAL PROTEIN 6.1 g/dL (6.3-8.2)
[2018-10-04 07:02] LABS: ANION GAP 6 (5-19); CARBON DIOXIDE 26 mmol/L (22-30); CHLORIDE 107 mmol/L (98-107); SODIUM 139.2 mmol/L (137-145)
[2018-10-04] MEDS: AMLODIPINE BESYLATE 10 MG TABLET PO SCH (08:06)
[2018-10-04] MEDS: INSULIN LISPRO 100 UNIT/ML 3 ML VIAL SUBCUT SCH ×6 (08:08→17:54)
[2018-10-04] MEDS: CHLORPROMAZINE HCL 50 MG TABLET PO SCH ×2 (09:10→17:57)
[2018-10-04] MEDS: ENOXAPARIN SODIUM INJ 40 MG/0.4 ML DISP.SYRIN SUBCUT SCH (09:10)
[2018-10-04] MEDS ORDERED: NORMAL SALINE 1000 ML 1,000 ML IV PRN (10:36)
--- NOTE | 2018-10-04 10:38 | PDOC PROGRESS REPORT ---
Subjective Progress Note for:: 10/04/18 Subjective:: Patient is currently doing fair Denied any chest pain denied any shortness of the breath No abdominal pain Patient's blood sugar under well control Patient understands about the carb count Patient is a very noncompliance Reason For Visit: UNCONTROLLED T2DM,POOR COMPLIANCE Physical Exam Vital Signs: Temp Pulse Resp BP Pulse Ox 98.3 F 88 14 148/98 H 100 10/04/18 08:00 10/04/18 08:00 10/04/18 08:00 10/04/18 08:00 10/04/18 08:00 Intake & Output 10/03/18 10/04/18 10/05/18 06:59 06:59 06:59 Intake Total 3940 3886 963 Balance 3940 3886 963 Weight 89 kg 88.4 kg General appearance: PRESENT: no acute distress, well-developed, well-nourished Head exam: PRESENT: atraumatic, normocephalic Eye exam: PRESENT: conjunctiva pink, EOMI, PERRLA. ABSENT: scleral icterus Ear exam: PRESENT: normal external ear exam Mouth exam: PRESENT: moist, tongue midline Neck exam: PRESENT: full ROM. ABSENT: carotid bruit, JVD, lymphadenopathy, thyromegaly Respiratory exam: PRESENT: clear to auscultation juan ramon Cardiovascular exam: PRESENT: RRR. ABSENT: diastolic murmur, rubs, systolic murmur Pulses: PRESENT: normal dorsalis pedis pul, +2 pedal pulses bilateral Vascular exam: PRESENT: normal capillary refill GI/Abdominal exam: PRESENT: normal bowel sounds, soft. ABSENT: distended, guarding, mass, organolmegaly, rebound, tenderness Rectal exam: PRESENT: deferred Neurological exam: PRESENT: alert, awake, oriented to person, oriented to place, oriented to time, oriented to situation, CN II-XII grossly intact. ABSENT: mo tor sensory deficit Psychiatric exam: PRESENT: appropriate affect, normal mood. ABSENT: homicidal ideation, suicidal ideation Skin exam: PRESENT: dry, intact, warm. ABSENT: cyanosis, rash Results Laboratory Results: 10/04/18 06:19 10/04/18 06:19 10/04/18 10/04/18 06:19 06:19 WBC 6.1 RBC 4.96 Hgb 13.2 L Hct 39.3 MCV 79 L MCH 26.6 L MCHC 33.6 RDW 15.3 H Plt Count 250 Sodium 139.2 Potassium 3.7 Chloride 107 Carbon Dioxide 26 Anion Gap 6 BUN 12 Creatinine 1.27 H Est GFR ( Amer) > 60 Est GFR (Non-Af Amer) > 60 Glucose 103 Calcium 9.0 Total Bilirubin 0.2 AST 13 L ALT 19 L Alkaline Phosphatase 85 Total Protein 6.1 L Albumin 3.4 L 10/01/18 10/01/18 10/01/18 05:30 05:30 10:13 Creatine Kinase 52 L CK-MB (CK-2) 0.30 Troponin I < 0.012 < 0.012 10/01/18 10/01/18 14:01 14:01 Creatine Kinase 53 L CK-MB (CK-2) Troponin I < 0.012 Impressions: Chest X-Ray 10/01/18 05:19 IMPRESSION: No acute cardiopulmonary disease. copyright 2010 [employer]- All Rights Reserved Assessment & Plan - Diagnosis (1) Type 1 diabetes mellitus with hyperosmolarity without nonketotic hyperglycemic hyperosmolar coma Is this a current diagnosis for this admission?: Yes (2) ARF (acute renal failure) Qualifiers: Acute renal failure type: unspecified Qualified Code(s): N17.9 - Acute kidney failure, unspecified Is this a current diagnosis for this admission?: Yes - Time Time Spent with patient: 15-24 minutes Medications reviewed and adjusted accordingly: Yes Anticipated discharge: Home Within: within 48 hours - Plan Summary Plan Summary: Continues to current medications Patient's needs to ambulate Cut down the IV fluid
[2018-10-04] MEDS: INSULIN GLARGINE,HUM.REC.ANLOG 300 UNIT/3 ML INSULN.PEN SUBCUT SCH (17:55)
[2018-10-04] MEDS: MIRTAZAPINE 15 MG TABLET PO SCH (21:44)
[2018-10-04] MEDS: QUETIAPINE FUMARATE 100 MG TABLET PO SCH (21:45)
[2018-10-04] MEDS: TRAZODONE HCL 50 MG TABLET PO SCH (21:45)
[2018-10-05] MEDS: LANSOPRAZOLE 30 MG TAB.RAP.DR PO SCH ×2 (05:22→17:30)
[2018-10-05] MEDS: SUCRALFATE 1 GM TABLET PO SCH ×4 (05:22→23:04)
[2018-10-05] MEDS: AMLODIPINE BESYLATE 10 MG TABLET PO SCH (07:48)
[2018-10-05] MEDS: OXYCODONE-ACETAMINOPHEN 5-325 MG TABLET PO PRN ×3 (07:49→21:13)
[2018-10-05] MEDS: INSULIN LISPRO 100 UNIT/ML 3 ML VIAL SUBCUT SCH ×6 (07:49→17:30)
[2018-10-05] MEDS: CHLORPROMAZINE HCL 50 MG TABLET PO SCH ×2 (09:09→17:30)
[2018-10-05] MEDS: ENOXAPARIN SODIUM INJ 40 MG/0.4 ML DISP.SYRIN SUBCUT SCH (09:09)
--- NOTE | 2018-10-05 13:22 | PDOC PROGRESS REPORT ---
Subjective Progress Note for:: 10/05/18 Subjective:: Patient is currently doing fair Denied any chest pain denied any shortness of the breath No abdominal pain Patient's blood sugar under well control Patient understands about the carb count Patient is a very noncompliance Reason For Visit: UNCONTROLLED T2DM,POOR COMPLIANCE Physical Exam Vital Signs: Temp Pulse Resp BP Pulse Ox 97.5 F 94 16 146/101 H 99 10/05/18 12:00 10/05/18 12:00 10/05/18 12:00 10/05/18 12:00 10/05/18 12:00 Intake & Output 10/04/18 10/05/18 10/06/18 06:59 06:59 06:59 Intake Total 3886 3957 Balance 3886 3957 Weight 88.4 kg General appearance: PRESENT: no acute distress, well-developed, well-nourished Head exam: PRESENT: atraumatic, normocephalic Eye exam: PRESENT: conjunctiva pink, EOMI, PERRLA. ABSENT: scleral icterus Ear exam: PRESENT: normal external ear exam Mouth exam: PRESENT: moist, tongue midline Neck exam: PRESENT: full ROM. ABSENT: carotid bruit, JVD, lymphadenopathy, thyromegaly Cardiovascular exam: PRESENT: RRR. ABSENT: diastolic murmur, rubs, systolic murmur Vascular exam: PRESENT: normal capillary refill GI/Abdominal exam: PRESENT: normal bowel sounds, soft. ABSENT: distended, guarding, mass, organolmegaly, rebound, tenderness Rectal exam: PRESENT: deferred Musculoskeletal exam: PRESENT: ambulatory Neurological exam: PRESENT: alert, awake, oriented to person, oriented to place, oriented to time, oriented to situation, CN II-XII grossly intact. ABSENT: motor sensory deficit Psychiatric exam: PRESENT: appropriate affect, normal mood. ABSENT: homicidal ideation, suicidal ideation Skin exam: PRESENT: dry, intact, warm. ABSENT: cyanosis, rash Results Laboratory Results: 10/04/18 06:19 10/04/18 06:19 10/01/18 15:15 Clean Catch Midstream Urine Culture - Final Mixed Urogenital Marlene 10/01/18 10/01/18 10/01/18 05:30 05:30 10:13 Creatine Kinase 52 L CK-MB (CK-2) 0.30 Troponin I < 0.012 < 0.012 10/01/18 10/01/18 14:01 14:01 Creatine Kinase 53 L CK-MB (CK-2) Troponin I < 0.012 Impressions: Chest X-Ray 10/01/18 05:19 IMPRESSION: No acute cardiopulmonary disease. copyright 2011 [employer]- All Rights Reserved Assessment & Plan - Diagnosis (1) Type 1 diabetes mellitus with hyperosmolarity without nonketotic hyperglycemic hyperosmolar coma Is this a current diagnosis for this admission?: Yes Plan: Patient's blood sugar is running couple of times low in the morning we will cut down the Lantus 30 units (2) ARF (acute renal failure) Qualifiers: Acute renal failure type: unspecified Qualified Code(s): N17.9 - Acute kidney failure, unspecified Is this a current diagnosis for this admission?: Yes Plan: all resolved - Time Time Spent with patient: 15-24 minutes Medications reviewed and adjusted accordingly: Yes Anticipated discharge: Other Within: Other - Plan Summary Plan Summary: Continues to current medications
[2018-10-05] MEDS: INSULIN GLARGINE,HUM.REC.ANLOG 300 UNIT/3 ML INSULN.PEN SUBCUT SCH (17:30)
[2018-10-05] MEDS: QUETIAPINE FUMARATE 100 MG TABLET PO SCH (21:13)
[2018-10-05] MEDS: TRAZODONE HCL 50 MG TABLET PO SCH (21:13)
[2018-10-05] MEDS: MIRTAZAPINE 15 MG TABLET PO SCH (21:13)
[2018-10-06] MEDS: SUCRALFATE 1 GM TABLET PO SCH ×3 (06:17→17:55)
[2018-10-06] MEDS: LANSOPRAZOLE 30 MG TAB.RAP.DR PO SCH ×2 (06:18→17:55)
[2018-10-06] MEDS: AMLODIPINE BESYLATE 10 MG TABLET PO SCH (07:59)
[2018-10-06] MEDS: OXYCODONE-ACETAMINOPHEN 5-325 MG TABLET PO PRN ×2 (07:59→14:41)
[2018-10-06] MEDS: INSULIN LISPRO 100 UNIT/ML 3 ML VIAL SUBCUT SCH ×6 (09:47→18:01)
[2018-10-06] MEDS: ENOXAPARIN SODIUM INJ 40 MG/0.4 ML DISP.SYRIN SUBCUT SCH (09:48)
[2018-10-06] MEDS: CHLORPROMAZINE HCL 50 MG TABLET PO SCH ×2 (09:48→17:55)
[2018-10-06] MEDS: INSULIN GLARGINE,HUM.REC.ANLOG 300 UNIT/3 ML INSULN.PEN SUBCUT SCH (17:55)
[2018-10-06 18:34] VITALS: BP 133/84
--- NOTE | 2018-10-06 19:27 | PDOC DISCHARGE SUMMARY ---
General - Admit/Disc Date/PCP Admission Date/Primary Care Provider: 10/01/18 13:41 Discharge Date: 10/06/18 - Discharge Diagnosis (1) Type 1 diabetes mellitus with hyperosmolarity without nonketotic hyperglycemic hyperosmolar coma Is this a current diagnosis for this admission?: Yes (2) Acute kidney injury Is this a current diagnosis for this admission?: Yes - Additional Information Resuscitation Status: Full Code Discharge Activity: Activity As Tolerated Prescriptions: Quetiapine Fumarate [Seroquel] 800 mg PO QHS #30 tablet Trazodone HCl [Desyrel 50 mg Tablet] 50 mg PO QHS #90 tablet Amlodipine Besylate [Norvasc 10 mg Tablet] 10 mg PO QAM #30 tablet Insulin Glargine,Hum.rec.anlog [Lantus Insulin 100 Unit/1 ml 10 ml] 35 units SQ DAILY #2 unit Insulin Lispro [Humalog Insulin (Lispro) 100 unit/mL] 5 units SQ AC #2 unit Omeprazole 40 mg PO DAILY #30 capsule. Ranitidine HCl [Zantac 150 mg Tablet] 150 mg PO BIDP #60 tablet Sucralfate [Carafate 1 gm Tablet] 1 gm PO Q6 #120 tablet Home Medications: Chlorpromazine HCl [Thorazine 50 mg Tablet] 50 mg PO BID 10/01/18 Mirtazapine [Remeron] 45 mg PO DAILY 10/01/18 Amlodipine Besylate [Norvasc 10 mg Tablet] 10 mg PO QAM #30 tablet 10/06/18 Insulin Glargine,Hum.rec.anlog [Lantus Insulin 100 Unit/1 ml 10 ml] 35 units SQ DAILY #2 unit 10/06/18 Insulin Lispro [Humalog Insulin (Lispro) 100 unit/mL] 5 units SQ AC #2 unit 10/06/18 Omeprazole 40 mg PO DAILY #30 capsule. 10/06/18 Quetiapine Fumarate [Seroquel] 800 mg PO QHS #30 tablet 10/06/18 Ranitidine HCl [Zantac 150 mg Tablet] 150 mg PO BIDP #60 tablet 10/06/18 Sucralfate [Carafate 1 gm Tablet] 1 gm PO Q6 #120 tablet 10/06/18 Trazodone HCl [Desyrel 50 mg Tablet] 50 mg PO QHS #90 tablet 10/06/18 History of Present Illness History of Present Illness: LENA SCHULZ is a 32 year old male, He has type 1 diabetes mellitus, extremely noncompliant, he came to the emergency room this morning for evaluation of uncontrolled diabetes mellitus. In the Emergency room he was found to have extremely elevated serum glucose over 600 but the was not in DKA. Patient was last seen in the office in April last year when he came for the first time to establish with us, he has not return for follow-up visit my understanding was that he follows with Dr. Fisher ,but with DR Fisher ' said patient has not been following with him. Patient apparently is not seeing any provider for the management of his Diabetes mellitus. He does not know how to count calories, he does not take insulin based on calorie ingested, he does not know how to correct serum glucose before meals.He also complains of vomiting Hospital Course Hospital Course: Patient was admitted for the management of hyperosmolar nonketotic diabetes mellitus type 1, he was treated with normal saline, insulin drip. More importantly patient was educated on how to administer bolus insulin on the basis of calorie ingested. He was seen by the environmental educator, he was educated on how to count calories in food ingested, he was also educated on how to correlate serum glucose, the target serum glucose in his own situation should be pre-meal 80-120 serum glucose, if the serum glucose is out of this range, he should be correlated with formula, measured glucose - [id number]. He will also administer rapidly acting insulin based on 1 unit of insulin per 10 g of carbohydrate ingested.Patient is poorly compliant with his diabetic care. He also have acute kidney injury, this was treated with normal saline Physical Exam Vital Signs: Temp Pulse Resp BP Pulse Ox 98.4 F 95 14 133/84 H 100 10/06/18 18:31 10/06/18 18:31 10/06/18 18:31 10/06/18 18:31 10/06/18 18:31 Intake & Output 10/05/18 10/06/18 10/07/18 06:59 06:59 06:59 Intake Total 0922 6935 Balance 3959 2885 Weight 90.2 kg General appearance: PRESENT: no acute distress, well-developed, well-nourished Head exam: PRESENT: atraumatic, normocephalic Eye exam: PRESENT: conjunctiva pink, EOMI, PERRLA Ear exam: PRESENT: normal external ear exam Mouth exam: PRESENT: moist, tongue midline Neck exam: PRESENT: full ROM Respiratory exam: PRESENT: clear to auscultation juan ramon Cardiovascular exam: PRESENT: RRR, +S1, +S2 Vascular exam: PRESENT: normal capillary refill GI/Abdominal exam: PRESENT: normal bowel sounds, soft Rectal exam: PRESENT: deferred Neurological exam: PRESENT: alert, awake, oriented to person, oriented to place, oriented to time, oriented to situation, CN II-XII grossly intact Psychiatric exam: PRESENT: appropriate affect, normal mood Skin exam: PRESENT: dry, intact, warm Results Laboratory Results: 10/04/18 06:19 10/04/18 06:19 10/01/18 10/01/18 10/01/18 05:30 05:30 10:13 Creatine Kinase 52 L CK-MB (CK-2) 0.30 Troponin I < 0.012 < 0.012 10/01/18 10/01/18 14:01 14:01 Creatine Kinase 53 L CK-MB (CK-2) Troponin I < 0.012 Impressions: Chest X-Ray 10/01/18 05:19 IMPRESSION: No acute cardiopulmonary disease. copyright 2010 [employer]- All Rights Reserved Qualifiers - * PATIENT BEING DISCHARGED WITH ANY OF THE FOLLOWING DIAGNOSIS: No
== END 2018-10-06 18:51 | disposition home or self-care (01) | DRG 638 ==
LOC: ER 05:09 → EH 08:01 → INTOOBSV 08:01 → 4N 13:15 → OBSVTOIN 13:41
PROVIDERS: ADMIT Internal Medicine; ATTEND Internal Medicine
DX: E10.65 Type 1 diabetes mellitus with hyperglycemia (principal); E87.0 Hyperosmolality and hypernatremia; E86.0 Dehydration; I10 Essential (primary) hypertension; G43.909 Migraine, unspecified, not intractable, without status migrainosus; F31.9 Bipolar disorder, unspecified; F17.210 Nicotine dependence, cigarettes, uncomplicated; E87.5 Hyperkalemia; E78.5 Hyperlipidemia, unspecified; D64.9 Anemia, unspecified; Z90.49 Acquired absence of other specified parts of digestive tract; Z79.4 Long term (current) use of insulin; Z79.899 Other long term (current) drug therapy; I25.2 Old myocardial infarction; F41.9 Anxiety disorder, unspecified; Z86.14 Personal history of Methicillin resistant Staphylococcus aureus infection; Z91.19 Patient's noncompliance with other medical treatment and regimen
CPT/HCPCS: 36415; 71045; 80048; 80053; 80061; 80076; 80307; 81001; 82550; 82553; 82803; 82962; 83036; 83735; 84100; 84439; 84443; 84484; 85025; 85027; 85610; 85730; 87086; 93005; 93010; 96361; 96374; 99285; J1650; J1815; J2405; J3490; J7030; S0164

== ENCOUNTER 2018-11-03 21:44 | Emergency (ER) | payer MEDICAID | END 2018-11-03 22:45 | disposition left against medical advice (07) | LOC: ER 21:44 | DX: Z53.21 Procedure and treatment not carried out due to patient leaving prior to being seen by health care provider (principal) ==

== ENCOUNTER 2018-11-03 23:27 | Inpatient (IN) | payer MEDICAID ==
[2018-11-03] MEDS ORDERED: NORMAL SALINE 1000 ML 1,000 ML IV ONE (23:29)
[2018-11-04 00:18] LABS: HEMATOCRIT 45.9 % (37.9-51.0); HEMOGLOBIN 14.6 g/dL (13.5-17.0); MEAN CORPUSCULAR HEMOGLOBIN 27.2 pg (27.0-33.4); MEAN CORPUSCULAR HGB CONC 31.8 g/dL (32.0-36.0); MEAN CORPUSCULAR VOLUME 86 fl (80-97); PLATELET COUNT 269 10^3/uL (150-450); RED BLOOD COUNT 5.37 10^6/uL (4.35-5.55); RED CELL DISTRIBUTION WIDTH 14.9 % (11.5-14.0); WHITE BLOOD COUNT 9.2 10^3/uL (4.0-10.5)
[2018-11-04 00:18] LABS: VENOUS BLOOD BASE EXCESS 3.6 mmol/L; VENOUS BLOOD HCO3 27.6 mmol/L (20-32); VENOUS BLOOD PCO2 39.7 mmHg (35-63); VENOUS BLOOD PH 7.46 (7.30-7.42)
[2018-11-04 00:29] LABS: APPEARANCE,URINE CLEAR; BILIRUBIN,URINE NEGATIVE (NEGATIVE); COLOR,URINE STRAW; GLUCOSE, URINE >=500 mg/dL (NEGATIVE); KETONES,URINE TRACE mg/dL (NEGATIVE); LEUKOCYTE ESTERASE,URINE NEGATIVE (NEGATIVE); NITRITE,URINE NEGATIVE (NEGATIVE); PROTEIN,URINE 100 mg/dL (NEGATIVE); URINE SPECIFIC GRAVITY 1.024; UROBILINOGEN,URINE NEGATIVE mg/dL (<2.0)
[2018-11-04 00:35] LABS: ABSOLUTE LYMPHOCYTES# (MANUAL) 0.6 10^3/uL (0.5-4.7); ABSOLUTE MONOCYTES # (MANUAL) 0.3 10^3/uL (0.1-1.4); ABSOLUTE NEUTROPHILS# (MANUAL) 8.3 10^3/uL (1.7-8.2); ANISOCYTOSIS SLIGHT; BASOPHILS % (MANUAL) 0 % (0-2); EOSINOPHILS % (MANUAL) 0 % (0-6); LYMPHOCYTES % (MANUAL) 7 % (13-45); MONOCYTES % (MANUAL) 3 % (3-13); SEGMENTED NEUTROPHILS % (MAN) 90 % (42-78); TOTAL CELLS COUNTED 100
[2018-11-04 00:36] LABS: PLATELET COMMENT ADEQUATE; PLATELET LARGE PRESENT; POLYCHROMASIA SLIGHT
[2018-11-04 00:39] LABS: ALANINE AMINOTRANSFERASE 21 U/L (21-72); ALBUMIN 3.9 g/dL (3.5-5.0); ALKALINE PHOSPHATASE 130 U/L (38-126); ANION GAP 13 (5-19); ASPARTATE AMINO TRANSFERASE 11 U/L (17-59); BILIRUBIN,DIRECT 0.3 mg/dL (0.0-0.4); BILIRUBIN,TOTAL 0.7 mg/dL (0.2-1.3); BLOOD UREA NITROGEN 18 mg/dL (7-20); CALCIUM 9.3 mg/dL (8.4-10.2); CARBON DIOXIDE 25 mmol/L (22-30); CHLORIDE 93 mmol/L (98-107); POTASSIUM 5.2 mmol/L (3.6-5.0); SODIUM 130.6 mmol/L (137-145); TOTAL PROTEIN 6.4 g/dL (6.3-8.2)
[2018-11-04 00:48] LABS: GLUCOSE 1017 mg/dL (75-110)
[2018-11-04] MEDS ORDERED: INSULIN REG, HUMAN 100 UNIT/ML 3 ML VIAL (PYX) IV ONE (01:06)
[2018-11-04] MEDS ORDERED: AMLODIPINE BESYLATE 10 MG TABLET PO ONE (01:11)
--- NOTE | 2018-11-04 02:30 | ER Document Report ---
Entered by ANTHONY MAHER SCRIBE 11/03/18 [id number] Acting as scribe for:SANGEETHA GOEL MD ED General - General Stated Complaint: HYPERGLYCEMIA Time Seen by Provider: 11/03/18 23:34 Mode of Arrival: Medic Information source: Patient Notes: Patient is a 33 year old male with insulin dependent diabetes presents to the emergency department via EMS complaining of elevated blood sugar onset this m orning. Patient states he checked his blood sugar this morning and found it to be elevated. He states he presented to the emergency department earlier today but LWBS. He states he went home to lay down but called the 911 after feeling nauseous and vomiting x1. He states he is compliant with his insulin medications and took a his dose today. He does not remember when his last bowel movement was. EMS reports the patient being hypertensive with a blood pressure of 196/114. TRAVEL OUTSIDE OF THE [place] IN LAST 30 DAYS: No - Related Data Allergies/Adverse Reactions: No Known Allergies Allergy (Verified 10/01/18 12:56) Past Medical History - General Information source: Patient - Social History Smoking Status: Current Every Day Smoker Cigarette use (# per day): Yes Chew tobacco use (# tins/day): No Smoking Education Provided: No Frequency of alcohol use: None Family History: Reviewed & Not Pertinent, DM, Hypertension - Past Medical History Cardiac Medical History: Reports: Hx Heart Attack - May 2017., Hx Hypertension Pulmonary Medical History: Reports: Hx Asthma - as child Neurological Medical History: Reports: Hx Migraine Endocrine Medical History: Reports: Hx Diabetes Mellitus Type 1 Psychiatric Medical History: Reports: Hx Anxiety, Hx Bipolar Disorder, Hx Depression, Hx Schizophrenia Past Surgical History: Reports: Hx Appendectomy, Hx Oral Surgery - wisdom teeth, Other - [place] teeth extraction - Immunizations Hx Diphtheria, Pertussis, Tetanus Vaccination: Yes Hx Pneumococcal Vaccination: 09/16/00 Review of Systems - Review of Systems Constitutional: See HPI EENT: No symptoms reported Cardiovascular: No symptoms reported Respiratory: No symptoms reported Gastrointestinal: No symptoms reported Genitourinary: No symptoms reported Male Genitourinary: No symptoms reported Musculoskeletal: No symptoms reported Skin: No symptoms reported Hematologic/Lymphatic: See HPI Neurological/Psychological: No symptoms reported -: Yes All other systems reviewed and negative Physical Exam - Vital signs Vitals: Temp Resp BP Pulse Ox 98.7 F 22 H 173/109 H 98 02/18/19 23:47 11/03/18 23:47 11/03/18 23:47 11/03/18 23:47 - Notes Notes: GENERAL: Alert, appears fatigued. No acute distress. HEAD: Normocephalic, atraumatic. EYES: Pupils equal, round, and reactive to light. Extraocular movements intact. ENT: Oral mucosa moist, tongue midline. NECK: Full range of motion. Supple. Trachea midline. LUNGS: Clear to auscultation bilaterally, no wheezes, rales, or rhonchi. No respiratory distress. HEART: Regular rate and rhythm. No murmurs, gallops, or rubs. ABDOMEN: Soft,diffusely tender to palpation. Non-distended. Bowel sounds present in all 4 quadrants. EXTREMITIES: Moves all 4 extremities spontaneously. NEUROLOGICAL: Alert and oriented x3. Normal speech. PSYCH: Normal affect, normal mood. SKIN: Warm, dry, normal turgor. No rashes or lesions noted. Course - Re-evaluation Re-evalutation: 11/04/18 01:05 Patient's blood sugar is 1017, he is not in DKA. He states he has not missed any of his insulin doses, I suspect he is lying as he usually does. 11/04/18 06:55 The patient's insulin drip was stopped around 5 AM because his blood sugar had dropped by approximately 500. He never was ketoacidotic. I was concerned about his sugar falling too rapidly and did not want him to be at risk of cerebral edema. He continued to receive IV normal saline. His blood pressure remained elevated despite being given a blood pressure pill. He may have vomited up that pill. At this time I have ordered an IV dose of labetalol 20 mg for his elevated blood pressure and heart rate. - Vital Signs Vital signs: Temp Pulse Resp BP Pulse Ox 98.7 F 17 166/120 H 97 11/03/18 23:47 11/04/18 05:01 11/04/18 05:01 11/04/18 05:01 - Laboratory Result Diagrams: 11/03/18 23:50 11/04/18 00:13 Laboratory results interpreted by me: 11/03/18 11/04/18 11/04/18 23:50 00:04 00:13 MCHC 31.8 L RDW 14.9 H Seg Neuts % (Manual) 90 H Lymphocytes % (Manual) 7 L Abs Neuts (Manual) 8.3 H VBG pH 7.46 H Sodium 130.6 L Potassium 5.2 H Chloride 93 L Creatinine 1.76 H Est GFR ( Amer) 54 L Est GFR (Non-Af Amer) 45 L Glucose 1017 H* AST 11 L Alkaline Phosphatase 130 H Urine Protein Urine Glucose (UA) Urine Ketones 11/04/18 00:13 [facility] Seg Neuts % (Manual) Lymphocytes % (Manual) Abs Neuts (Manual) VBG pH Sodium Potassium Chloride Creatinine Est GFR ( Amer) Est GFR (Non-Af Amer) Glucose AST Alkaline Phosphatase Urine Protein 100 H Urine Glucose (UA) >=500 H Urine Ketones TRACE H - EKG Interpretation by Me EKG shows normal: Sinus rhythm, [place], Intervals, QRS Complexes, ST-T Waves Rate: Tachycardia - 115 - Consults Dr. Kirkland Time consulted: 01:07 Consulted provider: will see as inpatient Critical Care Note - Critical Care Note Total time excluding time spent on procedures (mins): 30 Discharge - Discharge Clinical Impression: Hyperglycemia without ketosis, Noncompliance, Hx of noncompliance with medical treatment, presenting hazards to health Hypertension Qualifiers: Hypertension type: essential hypertension Qualified Code(s): I10 - Essential (primary) hypertension Condition: Stable Disposition: ADMITTED INPATIENT Admitting Provider: Isael Unit Admitted: Telemetry Scribe Attestation: 11/04/18 00:17 I personally performed the services described in the documentation, reviewed and edited the documentation which was dictated to the scribe in my presence, and it accurately records my words and actions. I personally performed the services described in the documentation, reviewed and edited the documentation which was dictated to the scribe in my presence, and it accurately records my words and actions.
[2018-11-04] MEDS ORDERED: NORMAL SALINE 1000 ML 1,000 ML IV ONE (05:20)
[2018-11-04] MEDS ORDERED: LABETALOL HCL INJ 20 MG/4 ML DISP.SYRIN IV ONE (06:53)
--- NOTE | 2018-11-04 07:47 | EKG REPORT ---
SEVERITY:- ABNORMAL ECG - SINUS TACHYCARDIA NONSPECIFIC ST-T CHANGES ANTERIOR LEADS : Confirmed by: Brayden Silverio MD 04-Nov-2018 07:46:49
[2018-11-04] MEDS ORDERED: PROCHLORPERAZINE EDISYLATE INJ 10 MG/2 ML VIAL IV ONE (08:09)
[2018-11-04] MEDS ORDERED: PROCHLORPERAZINE EDISYLATE INJ 10 MG/2 ML VIAL ONE (08:10)
[2018-11-04] MEDS ORDERED: GLUCAGON,HUMAN RECOMB 1 MG INJ IM PRN (11:21)
[2018-11-04] MEDS ORDERED: DEXTROSE 50%-WATER 25 GM/50 ML DISP.SYRIN IV PRN ×2 (11:21)
[2018-11-04] MEDS ORDERED: DEXTROSE 40% GEL 15 GM TUBE PO PRN ×2 (11:21)
[2018-11-04] MEDS ORDERED: NORMAL SALINE 1000 ML 1,000 ML IV PRN (11:21)
[2018-11-04 11:30] VITALS: BP 189/116
[2018-11-04] MEDS ORDERED: INSULIN GLARGINE,HUM.REC.ANLOG 1,000 UNIT/10 ML UNIT SUBCUT SCH (11:30)
[2018-11-04] MEDS ORDERED: CHLORPROMAZINE HCL 50 MG TABLET PO SCH (11:30)
[2018-11-04] MEDS ORDERED: (PENDING PHARMACY ID) (Mirtazapine [Remeron] 45 MG) PO SCH (11:30)
[2018-11-04] MEDS ORDERED: SUCRALFATE 1 GM TABLET PO SCH (12:00)
[2018-11-04] MEDS ORDERED: AMLODIPINE BESYLATE 10 MG TABLET PO SCH (12:00)
[2018-11-04] MEDS ORDERED: INSULIN LISPRO 100 UNIT/ML 3 ML VIAL SUBCUT SCH (16:00)
[2018-11-04] MEDS ORDERED: (PENDING PHARMACY ID) (Quetiapine Fumarate [Seroquel] 800 MG) PO SCH (22:00)
[2018-11-04] MEDS ORDERED: TRAZODONE HCL 50 MG TABLET PO SCH (22:00)
--- NOTE | 2018-11-10 18:41 | PDOC H&P ---
History of Present Illness Admission Date/PCP: 11/04/18 02:35 JARON ANN MD History of Present Illness: LENA SCHULZ is a 33 year old male, I did not see this patient he left AMA before he was seen in the ER Past Medical History Cardiac Medical History: Reports: Myocardial Infarction - May 2017., Hypertension Pulmonary Medical History: Reports: Asthma - as child Neurological Medical History: Reports: Migraine Endocrine Medical History: Reports: Diabetes Mellitus Type 1 Psychiatric Medical History: Reports: Bipolar Disorder, Depression Hematology: Reports: Anemia Past Surgical History Past Surgical History: Reports: Appendectomy, Other - [place] teeth extraction Social History Smoking Status: Current Every Day Smoker Frequency of Alcohol Use: None Hx Recreational Drug Use: No Drugs: None Hx Prescription Drug Abuse: No Family History Family History: Reviewed & Not Pertinent, DM, Hypertension Parental Family History Reviewed: Yes Children Family History Reviewed: Yes Sibling(s) Family History Reviewed.: Yes Medication/Allergy Home Medications: Chlorpromazine HCl [Thorazine 50 mg Tablet] 50 mg PO BID 10/01/18 Mirtazapine [Remeron] 45 mg PO DAILY 10/01/18 Amlodipine Besylate [Norvasc 10 mg Tablet] 10 mg PO QAM #30 tablet 10/06/18 Insulin Glargine,Hum.rec.anlog [Lantus Insulin 100 Unit/1 ml 10 ml] 35 units SQ DAILY #2 unit 10/06/18 Quetiapine Fumarate [Seroquel] 800 mg PO QHS #30 tablet 10/06/18 Ranitidine HCl [Zantac 150 mg Tablet] 150 mg PO BIDP #60 tablet 10/06/18 Sucralfate [Carafate 1 gm Tablet] 1 gm PO Q6 #120 tablet 10/06/18 Trazodone HCl [Desyrel 50 mg Tablet] 50 mg PO QHS #90 tablet 10/06/18 Insulin Lispro [Humalog Insulin (Lispro) 100 unit/mL] 0 units SQ .SLD SCALE 11/04/18 Omeprazole 40 mg PO BID 11/04/18 Allergies/Adverse Reactions: No Known Allergies Allergy (Verified 11/04/18 10:09) Physical Exam Vital Signs: Temp Pulse Resp BP Pulse Ox 98.7 F 111 H 18 189/116 H 99 11/03/18 23:47 11/04/18 08:16 02/19/19 11:28 11/04/18 11:28 11/04/18 11:28 Results Laboratory Results: 11/03/18 23:50 11/04/18 00:13 Assessment & Plan - Diagnosis (1) Uncontrolled diabetes mellitus Is this a current diagnosis for this admission?: Yes Plan: Patient left AMA in the emergency room before he was seen
== END 2018-11-04 12:25 | disposition left against medical advice (07) | DRG 639 ==
LOC: ER 23:27 → EH 11-04 02:35
PROVIDERS: ADMIT Internal Medicine; ATTEND Internal Medicine
DX: E10.65 Type 1 diabetes mellitus with hyperglycemia (principal); F17.210 Nicotine dependence, cigarettes, uncomplicated; F41.9 Anxiety disorder, unspecified; F31.9 Bipolar disorder, unspecified; F20.9 Schizophrenia, unspecified; I10 Essential (primary) hypertension; I25.2 Old myocardial infarction; Z79.899 Other long term (current) drug therapy; Z79.4 Long term (current) use of insulin; Z91.19 Patient's noncompliance with other medical treatment and regimen; Z82.49 Family history of ischemic heart disease and other diseases of the circulatory system; Z83.3 Family history of diabetes mellitus
CPT/HCPCS: 36415; 80053; 81001; 82803; 82962; 83735; 85025; 93005; 93010; 99291; J0780; J1815; J3490; J7030

== ENCOUNTER 2018-11-04 16:20 | Inpatient (IN) | payer MEDICAID ==
[2018-11-04] MEDS ORDERED: DEXTROSE 50%-WATER SYRINGE 25 GM/50 ML DOSE IV PRN (17:00)
[2018-11-04] MEDS ORDERED: DEXTROSE 40% GEL 15 GM TUBE PO PRN (17:00)
[2018-11-04] MEDS ORDERED: DEXTROSE 50%-WATER SYRINGE 12.5 GM/25 ML DOSE IV PRN (17:00)
[2018-11-04] MEDS ORDERED: GLUCAGON,HUMAN RECOMB 1 MG INJ IM PRN (17:00)
[2018-11-04] MEDS ORDERED: DEXTROSE 40% GEL 15 GM TUBE X 2 PO PRN (17:00)
[2018-11-04] MEDS ORDERED: INSULIN, REGULAR 100 UNIT/100 ML NORMAL SALINE IV PRN ×4 (17:00→18:30)
[2018-11-04 17:38] LABS: HEMATOCRIT 41.8 % (37.9-51.0); HEMOGLOBIN 13.5 g/dL (13.5-17.0); MEAN CORPUSCULAR HEMOGLOBIN 26.8 pg (27.0-33.4); MEAN CORPUSCULAR HGB CONC 32.3 g/dL (32.0-36.0); MEAN CORPUSCULAR VOLUME 83 fl (80-97); PLATELET COUNT 306 10^3/uL (150-450); RED BLOOD COUNT 5.04 10^6/uL (4.35-5.55); RED CELL DISTRIBUTION WIDTH 14.7 % (11.5-14.0); WHITE BLOOD COUNT 16.7 10^3/uL (4.0-10.5)
[2018-11-04] MEDS: ENALAPRILAT DIHYDRATE INJ/PF 2.5 MG/2 ML SDV IV SCH ×2 (17:49→23:22)
[2018-11-04 18:02] LABS: ALANINE AMINOTRANSFERASE 22 U/L (21-72); ALBUMIN 4.1 g/dL (3.5-5.0); ALKALINE PHOSPHATASE 125 U/L (38-126); ASPARTATE AMINO TRANSFERASE 16 U/L (17-59); BILIRUBIN,DIRECT 0.3 mg/dL (0.0-0.4); BILIRUBIN,TOTAL 0.7 mg/dL (0.2-1.3); BLOOD UREA NITROGEN 24 mg/dL (7-20); CALCIUM 9.2 mg/dL (8.4-10.2); POTASSIUM 4.3 mmol/L (3.6-5.0); TOTAL PROTEIN 6.7 g/dL (6.3-8.2)
[2018-11-04 18:08] LABS: CARBON DIOXIDE 17 mmol/L (22-30); CHLORIDE 99 mmol/L (98-107); SODIUM 138.8 mmol/L (137-145)
[2018-11-04 18:21] LABS: ANION GAP 23 (5-19)
[2018-11-04 18:22] LABS: GLUCOSE 619 mg/dL (75-110)
[2018-11-04] MEDS: ONDANSETRON HCL INJ/PF 4 MG/2 ML SDV IV PRN (19:57)
--- NOTE | 2018-11-04 21:01 | PDOC H&P ---
History of Present Illness Admission Date/PCP: 11/04/18 16:20 JARON ANN MD History of Present Illness: LENA SCHULZ is a 33 year old male, He has type 1 diabetes mellitus, schizophrenia, extremely noncompliant with medication and management of his diabetes mellitus.He came to the emergency room last night for evaluation of hyperglycemia the serum glucose was 1017, he was not acidotic, hospital admission was advised by the emergency room physician .I was called last night to admit him to the hospital and I felt he met criteria for inpatient care. He was admitted but there was no bed in the hospital ,he was in the emergency room on the stretcher he was upset because there was no bed in left again medical advice and he came to my office I advised him that he needed to be admitted to the hospital for effective management of his hyperosmolar state because of his symptoms of vomiting this will exacerbate the hyperosmolar nonketotic hyperglycemic state. It is to be noted that the last time was admitted in this hospital I spent considerable amount of time with him educating him also involve the peer educator on how is supposed to manage type 1 diabetes. He needed to know how to count calories and how to correct hyperglycemia in between meals, he was educated on how much bolus insulin he should give himself based on the calorie of the carbohydrate is consuming and also correct hyperglycemia in between meals he demonstrated an understanding of the concept the last time he was admitted to hospital. since discharge from the hospital he has not done any follow-up in the office. He is playing with danger he has type 1 diabetes mellitus is poorly controlled he continues to smoke cigarettes despite severely poorly controlled blood mellitus. Past Medical History Cardiac Medical History: Reports: Hypertension Pulmonary Medical History: Reports: Asthma - as child Neurological Medical History: Reports: Migraine Endocrine Medical History: Reports: Diabetes Mellitus Type 1 Psychiatric Medical History: Reports: Bipolar Disorder, Depression Hematology: Reports: Anemia Past Surgical History Past Surgical History: Reports: Appendectomy, Other - [place] teeth extraction Social History Smoking Status: Current Every Day Smoker Frequency of Alcohol Use: None Hx Recreational Drug Use: No Drugs: None Hx Prescription Drug Abuse: No Family History Family History: Reviewed & Not Pertinent, DM, Hypertension Parental Family History Reviewed: Yes Children Family History Reviewed: Yes Sibling(s) Family History Reviewed.: Yes Medication/Allergy Home Medications: Chlorpromazine HCl [Thorazine 50 mg Tablet] 50 mg PO BID 10/01/18 Mirtazapine [Remeron] 45 mg PO DAILY 10/01/18 Amlodipine Besylate [Norvasc 10 mg Tablet] 10 mg PO QAM #30 tablet 10/06/18 Insulin Glargine,Hum.rec.anlog [Lantus Insulin 100 Unit/1 ml 10 ml] 35 units SQ DAILY #2 unit 10/06/18 Quetiapine Fumarate [Seroquel] 800 mg PO QHS #30 tablet 10/06/18 Ranitidine HCl [Zantac 150 mg Tablet] 150 mg PO BIDP #60 tablet 10/06/18 Sucralfate [Carafate 1 gm Tablet] 1 gm PO Q6 #120 tablet 10/06/18 Trazodone HCl [Desyrel 50 mg Tablet] 50 mg PO QHS #90 tablet 10/06/18 Insulin Lispro [Humalog Insulin (Lispro) 100 unit/mL] 0 units SQ .SLD SCALE 11/04/18 Omeprazole 40 mg PO BID 11/04/18 Allergies/Adverse Reactions: No Known Allergies Allergy (Verified 11/04/18 10:09) Review of Systems Constitutional: ABSENT: chills, fever(s), headache(s), weight gain, weight loss Eyes: ABSENT: visual disturbances Ears: ABSENT: hearing changes Cardiovascular: PRESENT: chest pain. ABSENT: dyspnea on exertion, edema, orthropnea, palpitations Respiratory: ABSENT: cough, hemoptysis Gastrointestinal: PRESENT: vomiting. ABSENT: abdominal pain, constipation, diarrhea, hematemesis, hematochezia, nausea Genitourinary: ABSENT: dysuria, hematuria Musculoskeletal: ABSENT: joint swelling Integumentary: ABSENT: rash, wounds Neurological: ABSENT: abnormal gait, abnormal speech, confusion, dizziness, focal weakness, syncope Psychiatric: ABSENT: anxiety, depression, homidical ideation, suicidal ideation Endocrine: ABSENT: cold intolerance, heat intolerance, menstrual abnormalities, polydipsia, polyuria Hematologic/Lymphatic: ABSENT: easy bleeding, easy bruising, lymphadenopathy Physical Exam Vital Signs: Temp Pulse Resp BP Pulse Ox 98.5 F 107 H 18 192/105 H 100 11/04/18 16:34 11/04/18 18:09 11/04/18 16:34 11/04/18 18:09 11/04/18 16:34 Intake & Output 11/03/18 11/04/18 11/05/18 06:59 06:59 06:59 Output Total 600 Balance -600 Weight 85.3 kg General appearance: PRESENT: no acute distress Head exam: PRESENT: atraumatic, normocephalic Eye exam: PRESENT: conjunctiva pink, EOMI, PERRLA Ear exam: PRESENT: normal external ear exam Mouth exam: PRESENT: dry mucosa Neck exam: PRESENT: full ROM Respiratory exam: PRESENT: clear to auscultation juan ramon Cardiovascular exam: PRESENT: RRR, +S1, +S2 Pulses: PRESENT: normal dorsalis pedis pul, +2 pedal pulses bilateral Vascular exam: PRESENT: normal capillary refill GI/Abdominal exam: PRESENT: normal bowel sounds, soft Rectal exam: PRESENT: deferred Neurological exam: PRESENT: alert, awake, oriented to person, oriented to place, oriented to time, oriented to situation, CN II-XII grossly intact Psychiatric exam: PRESENT: appropriate affect, normal mood Skin exam: PRESENT: dry, intact, warm Results Laboratory Results: 11/04/18 17:16 11/04/18 17:16 11/04/18 11/04/18 17:16 17:16 WBC 16.7 H RBC 5.04 Hgb 13.5 Hct 41.8 MCV 83 MCH 26.8 L MCHC 32.3 RDW 14.7 H Plt Count 306 Sodium 138.8 Potassium 4.3 Chloride 99 Carbon Dioxide 17 L Anion Gap 23 H BUN 24 H Creatinine 1.87 H Est GFR ( Amer) 50 L Est GFR (Non-Af Amer) 42 L Glucose 619 H* Calcium 9.2 Total Bilirubin 0.7 AST 16 L ALT 22 Alkaline Phosphatase 125 Total Protein 6.7 Albumin 4.1 Assessment & Plan - Diagnosis (1) Type I diabetes mellitus with hyperosmolarity, uncontrolled Is this a current diagnosis for this admission?: Yes Plan: Start IV Normal saline ,insulin infusion (2) Hypertensive emergency Is this a current diagnosis for this admission?: Yes Plan: start IV Vasotec (3) Chest pain Qualifiers: Chest pain type: unspecified Qualified Code(s): R07.9 - Chest pain, unspecified Is this a current diagnosis for this admission?: Yes Plan: cardiac enzymes ,12 Lead EKG
[2018-11-04 21:16] LABS: BLOOD UREA NITROGEN 27 mg/dL (7-20); CALCIUM 9.4 mg/dL (8.4-10.2); CREATINE KINASE 90 U/L (55-170)
[2018-11-04 21:21] LABS: CARBON DIOXIDE 20 mmol/L (22-30); CHLORIDE 102 mmol/L (98-107); SODIUM 143.5 mmol/L (137-145)
[2018-11-04] MEDS: OXYCODONE-ACETAMINOPHEN 5-325 MG TABLET PO PRN (21:27)
[2018-11-04] MEDS: QUETIAPINE FUMARATE 100 MG TABLET PO SCH (21:27)
[2018-11-04 21:28] LABS: ANION GAP 22 (5-19)
[2018-11-04] MEDS: TRAZODONE HCL 50 MG TABLET PO SCH (21:28)
[2018-11-04] MEDS: SUCRALFATE 1 GM TABLET PO SCH (21:28)
[2018-11-04] MEDS: MIRTAZAPINE 15 MG TABLET PO SCH (21:28)
[2018-11-04] MEDS: LANSOPRAZOLE 30 MG TAB.RAP.DR PO SCH (21:29)
[2018-11-04 21:30] LABS: CREATINE KINASE MB 0.53 ng/mL (<4.55); GLUCOSE 583 mg/dL (75-110)
[2018-11-04 21:35] LABS: TROPONIN I < 0.012 ng/mL
[2018-11-04] MEDS: NORMAL SALINE 1000 ML 1,000 ML IV PRN (21:36)
[2018-11-04] MEDS: INSULIN GLARGINE,HUM.REC.ANLOG 300 UNIT/3 ML INSULN.PEN SUBCUT SCH (22:11)
[2018-11-04] MEDS: CHLORPROMAZINE HCL 50 MG TABLET PO SCH (22:11)
[2018-11-05 01:28] LABS: ANION GAP 10 (5-19); BLOOD UREA NITROGEN 29 mg/dL (7-20); CALCIUM 9.3 mg/dL (8.4-10.2); CARBON DIOXIDE 27 mmol/L (22-30); CHLORIDE 107 mmol/L (98-107); GLUCOSE 344 mg/dL (75-110); POTASSIUM 3.9 mmol/L (3.6-5.0); SODIUM 144.1 mmol/L (137-145)
[2018-11-05] MEDS: NORMAL SALINE 1000 ML 1,000 ML IV PRN ×3 (02:55→23:03)
[2018-11-05] MEDS: OXYCODONE-ACETAMINOPHEN 5-325 MG TABLET PO PRN ×4 (04:18→23:02)
[2018-11-05] MEDS: ONDANSETRON HCL INJ/PF 4 MG/2 ML SDV IV PRN ×3 (04:19→17:52)
[2018-11-05] MEDS: ENALAPRILAT DIHYDRATE INJ/PF 2.5 MG/2 ML SDV IV SCH ×4 (06:28→23:02)
--- NOTE | 2018-11-05 07:55 | EKG REPORT ---
SEVERITY:- ABNORMAL ECG - SINUS TACHYCARDIA BORDERLINE INFERIOR Q WAVES ABNORMAL T, CONSIDER ISCHEMIA, DIFFUSE LEADS : Confirmed by: Brayden Silverio MD 05-Nov-2018 07:54:22
--- NOTE | 2018-11-05 07:55 | EKG REPORT ---
SEVERITY:- ABNORMAL ECG - SINUS TACHYCARDIA BORDERLINE INFERIOR Q WAVES NONSPECIFIC T ABNORMALITIES, INFERIOR LEADS , UNCHANGED. BORDERLINE PROLONGED QT INTERVAL : Confirmed by: Brayden Silverio MD 05-Nov-2018 07:55:08
[2018-11-05] MEDS: AMLODIPINE BESYLATE 10 MG TABLET PO SCH (08:50)
[2018-11-05] MEDS: SUCRALFATE 1 GM TABLET PO SCH ×4 (08:54→21:41)
[2018-11-05] MEDS: LANSOPRAZOLE 30 MG TAB.RAP.DR PO SCH ×2 (09:56→21:42)
[2018-11-05] MEDS: CHLORPROMAZINE HCL 50 MG TABLET PO SCH ×2 (10:04→21:48)
[2018-11-05] MEDS: INSULIN REG, HUMAN 100 UNIT/ML 3 ML VIAL (PYX) SUBCUT SCH ×3 (10:05→21:47)
[2018-11-05] MEDS: INSULIN REG, HUMAN 100 UNIT/ML 3 ML VIAL (PYX) ONE ×2 (11:34→12:56)
[2018-11-05] MEDS ORDERED: POTASSIUM CHLORIDE 20 MEQ/50 ML RTU IV SCH (13:00)
[2018-11-05 13:41] LABS: ANION GAP 12 (5-19); BLOOD UREA NITROGEN 22 mg/dL (7-20); CALCIUM 8.7 mg/dL (8.4-10.2); CARBON DIOXIDE 26 mmol/L (22-30); CHLORIDE 105 mmol/L (98-107); CREATINE KINASE 103 U/L (55-170); GLUCOSE 258 mg/dL (75-110); POTASSIUM 3.9 mmol/L (3.6-5.0); SODIUM 142.5 mmol/L (137-145)
[2018-11-05 13:47] LABS: CREATINE KINASE MB 0.53 ng/mL (<4.55); TROPONIN I 0.018 ng/mL
--- NOTE | 2018-11-05 18:24 | PDOC PROGRESS REPORT ---
Subjective Progress Note for:: 11/05/18 Subjective:: Patient seen by the bedside,, he refused blood drawn earlier this morning Reason For Visit: HYPEROSMOALITY, NONKETOTIC DIABETES Physical Exam Vital Signs: Temp Pulse Resp BP Pulse Ox 98.9 F 122 H 16 159/108 H 100 11/05/18 16:32 11/05/18 16:32 11/05/18 16:32 11/05/18 16:32 11/05/18 16:32 Intake & Output 11/04/18 11/05/18 11/06/18 06:59 06:59 06:59 Intake Total 1904 2438 Output Total 700 1100 Balance 1204 1338 Weight 82.1 kg General appearance: PRESENT: no acute distress Eye exam: PRESENT: PERRLA Respiratory exam: PRESENT: clear to auscultation juan ramon Cardiovascular exam: PRESENT: +S1, +S2 GI/Abdominal exam: PRESENT: soft Neurological exam: PRESENT: alert Results Laboratory Results: 11/04/18 17:16 11/04/18 11/04/18 11/05/18 17:16 20:50 00:58 Sodium 138.8 143.5 144.1 Potassium 4.3 4.0 3.9 Chloride 99 102 107 Carbon Dioxide 17 L 20 L 27 Anion Gap 23 H 22 H 10 BUN 24 H 27 H 29 H Creatinine 1.87 H 1.85 H 1.79 H Est GFR ( Amer) 50 L 51 L 53 L Est GFR (Non-Af Amer) 42 L 42 L 44 L Glucose 619 H* 583 H* 344 H Calcium 9.2 9.4 9.3 Total Bilirubin 0.7 AST 16 L ALT 22 Alkaline Phosphatase 125 Total Protein 6.7 Albumin 4.1 11/05/18 12:27 Sodium 142.5 Potassium 3.9 Chloride 105 Carbon Dioxide 26 Anion Gap 12 BUN 22 H Creatinine 1.52 H Est GFR ( Amer) > 60 Est GFR (Non-Af Amer) 53 L Glucose 258 H Calcium 8.7 Total Bilirubin AST ALT Alkaline Phosphatase Total Protein Albumin 11/04/18 11/04/18 11/05/18 20:50 20:50 12:27 Creatine Kinase 90 103 CK-MB (CK-2) 0.53 Troponin I < 0.012 11/05/18 12:27 Creatine Kinase CK-MB (CK-2) 0.53 Troponin I 0.018 Assessment & Plan - Diagnosis (1) Type I diabetes mellitus with hyperosmolarity, uncontrolled Is this a current diagnosis for this admission?: Yes Plan: Continue IV fluid and other treatment (2) Hypertensive emergency Is this a current diagnosis for this admission?: Yes (3) Chest pain Qualifiers: Chest pain type: unspecified Qualified Code(s): R07.9 - Chest pain, unspecified Is this a current diagnosis for this admission?: Yes
[2018-11-05 18:40] LABS: ANION GAP 7 (5-19); BLOOD UREA NITROGEN 17 mg/dL (7-20); CARBON DIOXIDE 29 mmol/L (22-30); CHLORIDE 106 mmol/L (98-107); GLUCOSE 118 mg/dL (75-110); POTASSIUM 3.8 mmol/L (3.6-5.0); SODIUM 141.8 mmol/L (137-145)
--- NOTE | 2018-11-05 18:43 | EKG REPORT ---
SEVERITY:- ABNORMAL ECG - SINUS TACHYCARDIA BORDERLINE INFERIOR Q WAVES NONSPECIFIC T ABNORMALITIES, DIFFUSE LEADS : Confirmed by: Brayden Silverio MD 05-Nov-2018 18:42:16
[2018-11-05] MEDS: TRAZODONE HCL 50 MG TABLET PO SCH (21:41)
[2018-11-05] MEDS: MIRTAZAPINE 15 MG TABLET PO SCH (21:42)
[2018-11-05] MEDS: QUETIAPINE FUMARATE 100 MG TABLET PO SCH (21:43)
[2018-11-05] MEDS: INSULIN GLARGINE,HUM.REC.ANLOG 300 UNIT/3 ML INSULN.PEN SUBCUT SCH (21:47)
[2018-11-06] MEDS: NORMAL SALINE 1000 ML 1,000 ML IV PRN ×4 (06:45→23:08)
[2018-11-06] MEDS: ENALAPRILAT DIHYDRATE INJ/PF 2.5 MG/2 ML SDV IV SCH ×3 (06:47→17:20)
[2018-11-06] MEDS: OXYCODONE-ACETAMINOPHEN 5-325 MG TABLET PO PRN ×3 (08:58→20:43)
[2018-11-06] MEDS: AMLODIPINE BESYLATE 10 MG TABLET PO SCH (08:58)
[2018-11-06] MEDS: INSULIN REG, HUMAN 100 UNIT/ML 3 ML VIAL (PYX) SUBCUT SCH ×4 (08:58→21:58)
[2018-11-06] MEDS: SUCRALFATE 1 GM TABLET PO SCH ×4 (08:58→22:01)
[2018-11-06] MEDS: CHLORPROMAZINE HCL 50 MG TABLET PO SCH ×2 (08:59→21:59)
[2018-11-06] MEDS: LANSOPRAZOLE 30 MG TAB.RAP.DR PO SCH ×2 (08:59→22:01)
[2018-11-06 11:29] LABS: ANION GAP 9 (5-19); BLOOD UREA NITROGEN 12 mg/dL (7-20); CALCIUM 8.2 mg/dL (8.4-10.2); CARBON DIOXIDE 26 mmol/L (22-30); CHLORIDE 103 mmol/L (98-107); GLUCOSE 285 mg/dL (75-110); SODIUM 137.5 mmol/L (137-145)
[2018-11-06 16:15] LABS: ANION GAP 7 (5-19); BLOOD UREA NITROGEN 12 mg/dL (7-20); CALCIUM 8.9 mg/dL (8.4-10.2); CARBON DIOXIDE 28 mmol/L (22-30); CHLORIDE 103 mmol/L (98-107); GLUCOSE 255 mg/dL (75-110); POTASSIUM 3.8 mmol/L (3.6-5.0); SODIUM 137.8 mmol/L (137-145)
--- NOTE | 2018-11-06 20:20 | PDOC PROGRESS REPORT ---
Subjective Progress Note for:: 11/06/18 Subjective:: Patient is seen by the bedside ,he feels better Reason For Visit: HYPEROSMOALITY, NONKETOTIC DIABETES Physical Exam Vital Signs: Temp Pulse Resp BP Pulse Ox 98.6 F 105 H 16 164/96 H 100 11/06/18 16:07 11/06/18 17:20 11/06/18 16:07 11/06/18 17:20 11/06/18 16:07 Intake & Output 11/05/18 11/06/18 11/07/18 06:59 06:59 06:59 Intake Total 1904 4906 3036 Output Total 700 2500 2800 Balance 1204 2406 236 Weight 82.1 kg 86.7 kg General appearance: PRESENT: no acute distress Eye exam: PRESENT: PERRLA Respiratory exam: PRESENT: clear to auscultation juan ramon Cardiovascular exam: PRESENT: +S1, +S2 GI/Abdominal exam: PRESENT: soft Results Laboratory Results: 11/04/18 17:16 11/06/18 15:47 11/06/18 11/06/18 10:08 15:47 Sodium 137.5 137.8 Potassium 4.0 3.8 Chloride 103 103 Carbon Dioxide 26 28 Anion Gap 9 7 BUN 12 12 Creatinine 1.28 H 1.22 Est GFR ( Amer) > 60 > 60 Est GFR (Non-Af Amer) > 60 > 60 Glucose 285 H 255 H Calcium 8.2 L 8.9 11/04/18 11/04/18 11/05/18 20:50 20:50 12:27 Creatine Kinase 90 103 CK-MB (CK-2) 0.53 Troponin I < 0.012 11/05/18 12:27 Creatine Kinase CK-MB (CK-2) 0.53 Troponin I 0.018 Assessment & Plan - Diagnosis (1) Type I diabetes mellitus with hyperosmolarity, uncontrolled Is this a current diagnosis for this admission?: Yes Plan: Continue IV fluid and other treatment (2) Hypertensive emergency Is this a current diagnosis for this admission?: Yes (3) Chest pain Qualifiers: Chest pain type: unspecified Qualified Code(s): R07.9 - Chest pain, unspecified Is this a current diagnosis for this admission?: Yes
[2018-11-06] MEDS: INSULIN GLARGINE,HUM.REC.ANLOG 300 UNIT/3 ML INSULN.PEN SUBCUT SCH (21:59)
[2018-11-06] MEDS: QUETIAPINE FUMARATE 100 MG TABLET PO SCH (22:00)
[2018-11-06] MEDS: MIRTAZAPINE 15 MG TABLET PO SCH (22:01)
[2018-11-06] MEDS: TRAZODONE HCL 50 MG TABLET PO SCH (22:01)
[2018-11-07] MEDS: ENALAPRILAT DIHYDRATE INJ/PF 2.5 MG/2 ML SDV IV SCH ×2 (00:23→06:33)
[2018-11-07] MEDS: NORMAL SALINE 1000 ML 1,000 ML IV PRN (05:53)
[2018-11-07 08:26] VITALS: BP 201/94
[2018-11-07] MEDS: AMLODIPINE BESYLATE 10 MG TABLET PO SCH (10:26)
[2018-11-07] MEDS: CHLORPROMAZINE HCL 50 MG TABLET PO SCH (10:26)
[2018-11-07] MEDS: SUCRALFATE 1 GM TABLET PO SCH (10:26)
[2018-11-07] MEDS: LANSOPRAZOLE 30 MG TAB.RAP.DR PO SCH (10:26)
[2018-11-07] MEDS: OXYCODONE-ACETAMINOPHEN 5-325 MG TABLET PO PRN (10:26)
[2018-11-07] MEDS: INSULIN REG, HUMAN 100 UNIT/ML 3 ML VIAL (PYX) SUBCUT SCH (10:28)
--- NOTE | 2018-11-07 12:46 | PDOC DISCHARGE SUMMARY ---
General - Admit/Disc Date/PCP Admission Date/Primary Care Provider: 11/04/18 16:20 JARON ANN MD Discharge Date: 11/07/18 - Discharge Diagnosis (1) Type I diabetes mellitus with hyperosmolarity, uncontrolled Is this a current diagnosis for this admission?: Yes (2) Hypertensive emergency Is this a current diagnosis for this admission?: Yes (3) Chest pain Is this a current diagnosis for this admission?: Yes - Additional Information Home Medications: Chlorpromazine HCl [Thorazine 50 mg Tablet] 50 mg PO BID 10/01/18 Mirtazapine [Remeron] 45 mg PO DAILY 10/01/18 Amlodipine Besylate [Norvasc 10 mg Tablet] 10 mg PO QAM #30 tablet 10/06/18 Insulin Glargine,Hum.rec.anlog [Lantus Insulin 100 Unit/1 ml 10 ml] 35 units SQ DAILY #2 unit 10/06/18 Quetiapine Fumarate [Seroquel] 800 mg PO QHS #30 tablet 10/06/18 Ranitidine HCl [Zantac 150 mg Tablet] 150 mg PO BIDP #60 tablet 10/06/18 Sucralfate [Carafate 1 gm Tablet] 1 gm PO Q6 #120 tablet 10/06/18 Trazodone HCl [Desyrel 50 mg Tablet] 50 mg PO QHS #90 tablet 10/06/18 Insulin Lispro [Humalog Insulin (Lispro) 100 unit/mL] 0 units SQ .SLD SCALE 11/04/18 Omeprazole 40 mg PO BID 11/04/18 History of Present Illness History of Present Illness: LENA SCHULZ is a 33 year old male, He has type 1 diabetes mellitus, schizophrenia, extremely noncompliant with medication and management of his diabetes mellitus.He came to the emergency room last night for evaluation of h yperglycemia the serum glucose was 1017, he was not acidotic, hospital admission was advised by the emergency room physician .I was called last night to admit him to the hospital and I felt he met criteria for inpatient care. He was admitted but there was no bed in the hospital ,he was in the emergency room on the stretcher he was upset because there was no bed in left again medical advice and he came to my office I advised him that he needed to be admitted to the hospital for effective management of his hyperosmolar state because of his symptoms of vomiting this will exacerbate the hyperosmolar nonketotic hyperglycemic state. It is to be noted that the last time was admitted in this hospital I spent considerable amount of time with him educating him also involve the tobacco educator on how is supposed to manage type 1 diabetes. He needed to know how to count calories and how to correct hyperglycemia in between meals, he was educated on how much bolus insulin he should give himself based on the calorie of the carbohydrate is consuming and also correct hyperglycemia in between meals he demonstrated an understanding of the concept the last time he was admitted to hospital. since discharge from the hospital he has not done any follow-up in the office. He is playing with danger he has type 1 diabetes mellitus is poorly controlled he continues to smoke cigarettes despite severely poorly controlled blood mellitus. Hospital Course Hospital Course: Patient was admitted for the management of poorly controlled hyperosmolar hyperglycemic state, was treated with IV fluid, insulin drip, patient is extremely noncompliant, he left AMA today Physical Exam Vital Signs: Temp Pulse Resp BP Pulse Ox 98.2 F 98 22 H 201/94 H 99 11/07/18 08:01 11/07/18 08:01 11/07/18 08:01 11/07/18 08:01 11/07/18 08:01 Intake & Output 11/06/18 11/07/18 11/08/18 06:59 06:59 06:59 Intake Total 4906 7310 Output Total 2500 5450 Balance 2406 1860 Weight 86.7 kg 87.5 kg General appearance: PRESENT: no acute distress Eye exam: PRESENT: PERRLA Mouth exam: PRESENT: moist, tongue midline Neck exam: PRESENT: full ROM Respiratory exam: PRESENT: clear to auscultation juan ramon Cardiovascular exam: PRESENT: RRR, +S1, +S2 Vascular exam: PRESENT: normal capillary refill GI/Abdominal exam: PRESENT: normal bowel sounds, soft Rectal exam: PRESENT: deferred Neurological exam: PRESENT: alert, CN II-XII grossly intact Psychiatric exam: PRESENT: appropriate affect, normal mood Skin exam: PRESENT: dry, intact, warm Results Laboratory Results: 11/04/18 17:16 11/06/18 15:47 11/06/18 15:47 Sodium 137.8 Potassium 3.8 Chloride 103 Carbon Dioxide 28 Anion Gap 7 BUN 12 Creatinine 1.22 Est GFR ( Amer) > 60 Est GFR (Non-Af Amer) > 60 Glucose 255 H Calcium 8.9 11/04/18 11/04/18 11/05/18 20:50 20:50 12:27 Creatine Kinase 90 103 CK-MB (CK-2) 0.53 Troponin I < 0.012 11/05/18 12:27 Creatine Kinase CK-MB (CK-2) 0.53 Troponin I 0.018 Qualifiers - * PATIENT BEING DISCHARGED WITH ANY OF THE FOLLOWING DIAGNOSIS: No
== END 2018-11-07 11:53 | disposition left against medical advice (07) | DRG 638 ==
LOC: OBSVTOIN 16:20 → 4S 16:20 → INTOOBSV 16:20 → 3W 20:22
PROVIDERS: ADMIT Internal Medicine; ATTEND Internal Medicine
DX: E10.65 Type 1 diabetes mellitus with hyperglycemia (principal); I16.1 Hypertensive emergency; F17.210 Nicotine dependence, cigarettes, uncomplicated; F41.9 Anxiety disorder, unspecified; F31.9 Bipolar disorder, unspecified; F20.9 Schizophrenia, unspecified; R07.9 Chest pain, unspecified; I10 Essential (primary) hypertension; Z79.4 Long term (current) use of insulin; Z91.19 Patient's noncompliance with other medical treatment and regimen; Z82.49 Family history of ischemic heart disease and other diseases of the circulatory system; Z83.3 Family history of diabetes mellitus; Z90.49 Acquired absence of other specified parts of digestive tract; Z86.14 Personal history of Methicillin resistant Staphylococcus aureus infection
CPT/HCPCS: 36415; 80048; 80076; 82550; 82553; 82962; 83036; 84484; 85027; 93005; 93010; J1815; J2405; J3490; J7030

== ENCOUNTER 2018-12-22 10:22 | Emergency (ER) | payer MEDICAID ==
[2018-12-22 10:33] VITALS: BP 151/104
[2018-12-22] MEDS ORDERED: NORMAL SALINE 1000 ML 1,000 ML IV ONE (10:37)
--- NOTE | 2018-12-22 10:39 | ER Document Report ---
ED Medical Screen (RME) - General Chief Complaint: Vomiting Stated Complaint: VOMITING Time Seen by Provider: 12/22/18 10:33 Primary Care Provider: JARON ANN MD [Primary Care Provider] - Follow up as needed Mode of Arrival: Ambulatory Information source: Patient Notes: Patient is a 33-year-old male with type 1 diabetes who presents to the emergency department with complaints of vomiting. Patient reports history of esophageal stricture with repair. States he was taking Protonix and Carafate however he states these medications are not working anymore. Patient reports over the last 2 days anytime he tries eating or drinking anything he vomits it back up immediately. Patient denies any nausea or diarrhea. He does report some burning in his chest. Patient reports he has been taking his insulin, states his sugars have been fluctuating. Exam: Abdomen soft, nontender with no guarding and no rebound. Patient alert, oriented and answering all questions appropriately. I have greeted and performed a rapid initial assessment of this patient. A comprehensive ED assessment and evaluation of the patient, analysis of test results and completion of the medical decision making process will be conducted by additional ED providers. Dictation of this chart was performed using voice recognition software; therefore, there may be some unintended grammatical errors. TRAVEL OUTSIDE OF THE [place] IN LAST 30 DAYS: No - Related Data Allergies/Adverse Reactions: No Known Allergies Allergy (Verified 11/04/18 10:09) Past Medical History - Social History Chew tobacco use (# tins/day): No Frequency of alcohol use: Occasional Drug Abuse: Marijuana Family history: Reviewed & Not Pertinent - Past Medical History Cardiac Medical History: Reports: Hx Heart Attack - May 2017., Hx Hypertension Denies: Hx Congestive Heart Failure, Hx DVT, Hx Hypercholesterolemia, Hx Pulmonary Embolism Pulmonary Medical History: Reports: Hx Asthma - as child Denies: Hx COPD, Hx Sleep Apnea Neurological Medical History: Reports: Hx Migraine. Denies: Hx Seizures Endocrine Medical History: Reports: Hx Diabetes Mellitus Type 1. Denies: Hx Diabetes Mellitus Type 2, Hx Hyperthyroidism, Hx Hypothyroidism Renal/ Medical History: Denies: Hx Peritoneal Dialysis GI Medical History: Denies: Hx Cirrhosis, Hx Gastroesophageal Reflux Disease, Hx Hepatitis Musculoskeltal Medical History: Denies Hx Arthritis Psychiatric Medical History: Reports: Hx Anxiety, Hx Bipolar Disorder, Hx Depression, Hx Schizophrenia Infectious Medical History: Denies: Hx C-Diff, Hx Hepatitis, Hx MRSA Past Surgical History: Reports: Hx Appendectomy, Hx Oral Surgery - wisdom teeth, Other - [place] teeth extraction - Immunizations Hx Diphtheria, Pertussis, Tetanus Vaccination: Yes History of Influenza Vaccine for 06/2017 - 11/2017 Season: Refused Physical Exam - Vital signs Vitals: Temp Pulse Resp BP Pulse Ox 98.9 F 86 16 151/104 H 92 12/22/18 10:32 12/22/18 10:32 12/22/18 10:32 12/22/18 10:32 12/22/18 10:32 Course - Vital Signs Vital signs: Temp Pulse Resp BP Pulse Ox 98.9 F 86 16 151/104 H 92 12/22/18 10:32 12/22/18 10:32 12/22/18 10:32 12/22/18 10:32 12/22/18 10:32 Doctor's Discharge - Discharge Referrals: JARON ANN MD [Primary Care Provider] - Follow up as needed
== END 2018-12-22 11:15 | disposition left against medical advice (07) ==
LOC: ER 10:22
DX: R11.10 Vomiting, unspecified (principal); E10.9 Type 1 diabetes mellitus without complications; R09.89 Other specified symptoms and signs involving the circulatory and respiratory systems; I10 Essential (primary) hypertension; I25.2 Old myocardial infarction; Z87.19 Personal history of other diseases of the digestive system; Z53.20 Procedure and treatment not carried out because of patient's decision for unspecified reasons; Z90.49 Acquired absence of other specified parts of digestive tract
CPT/HCPCS: 99281

== ENCOUNTER 2019-01-31 14:27 | Emergency (ER) | payer MEDICAID ==
--- NOTE | 2019-01-31 14:51 | ER Document Report ---
ED Medical Screen (RME) - General Chief Complaint: Chest Pain Stated Complaint: CHEST PAIN Time Seen by Provider: 01/31/19 14:48 Primary Care Provider: JARON ANN MD [Primary Care Provider] - Follow up as needed Mode of Arrival: Wheelchair Information source: Patient Notes: 33-year-old male presented to ED for complaint of upper abdomen and chest pain since last night. He states he is vomiting since last night and is vomited at least 15 times. He states he checked his sugar at home and it was over 500. He is a diabetic type I. He states he also has history of bipolar schizophrenia depression and high blood pressure. He states she smokes pack a day drinks monthly and is disabled. I have greeted and performed a rapid initial assessment of this patient. A comprehensive ED assessment and evaluation of the patient, analysis of test results and completion of medical decision making process will be conducted by an additional ED providers. Dictation of this chart was performed using voice recognition software; therefore, there may be some unintended grammatical errors. TRAVEL OUTSIDE OF THE [place] IN LAST 30 DAYS: No - Related Data Allergies/Adverse Reactions: No Known Allergies Allergy (Verified 01/31/19 14:29) Past Medical History - Social History Family history: Reviewed & Not Pertinent - Past Medical History Cardiac Medical History: Reports: Hx Heart Attack - May 2017., Hx Hypertension Denies: Hx Congestive Heart Failure, Hx DVT, Hx Hypercholesterolemia, Hx Pulmonary Embolism Pulmonary Medical History: Reports: Hx Asthma - as child Denies: Hx COPD, Hx Sleep Apnea Neurological Medical History: Reports: Hx Migraine. Denies: Hx Seizures Endocrine Medical History: Reports: Hx Diabetes Mellitus Type 1. Denies: Hx Diabetes Mellitus Type 2, Hx Hyperthyroidism, Hx Hypothyroidism Renal/ Medical History: Denies: Hx Peritoneal Dialysis GI Medical History: Denies: Hx Cirrhosis, Hx Gastroesophageal Reflux Disease, Hx Hepatitis Musculoskeltal Medical History: Denies Hx Arthritis Psychiatric Medical History: Reports: Hx Anxiety, Hx Bipolar Disorder, Hx Depression, Hx Schizophrenia Infectious Medical History: Denies: Hx C-Diff, Hx Hepatitis, Hx MRSA Past Surgical History: Reports: Hx Appendectomy, Hx Oral Surgery - wisdom teeth, Other - [place] teeth extraction - Immunizations Hx Diphtheria, Pertussis, Tetanus Vaccination: Yes History of Influenza Vaccine for 06/2017 - 11/2017 Season: Refused Physical Exam - Vital signs Vitals: Temp Pulse Resp BP Pulse Ox 98.7 F 127 H 16 167/103 H 98 01/31/19 14:40 01/31/19 14:40 01/31/19 14:40 01/31/19 14:40 01/31/19 14:40 Course - Vital Signs Vital signs: Temp Pulse Resp BP Pulse Ox 98.7 F 127 H 16 167/103 H 98 01/31/19 14:40 01/31/19 14:40 01/31/19 14:40 01/31/19 14:40 01/31/19 14:40 Doctor's Discharge - Discharge Referrals: JARON ANN MD [Primary Care Provider] - Follow up as needed
[2019-01-31] MEDS ORDERED: NORMAL SALINE 1000 ML 1,000 ML IV ONE ×2 (14:52→19:14)
[2019-01-31] MEDS ORDERED: ONDANSETRON HCL INJ/PF 4 MG/2 ML SDV IV ONE (14:52)
--- NOTE | 2019-01-31 15:15 | EKG REPORT ---
SEVERITY:- ABNORMAL ECG - SINUS TACHYCARDIA NONSPECIFIC T ABNORMALITIES, INFERIOR LEADS : Confirmed by: Brayden Silverio MD 31-Jan-2019 15:14:47
--- NOTE | 2019-01-31 15:33 | ER Document Report ---
ED Cardiac - General Chief Complaint: Chest Pain Stated Complaint: CHEST PAIN Time Seen by Provider: 01/31/19 14:48 Primary Care Provider: JARON ANN MD [Primary Care Provider] - Follow up as needed Mode of Arrival: Wheelchair Notes: This is a 33-year-old male to the emergency department with chief complaint of chest pain. Patient thinks that he may be in DKA. Long-standing history of uncontrolled diabetes, substance abuse, uncontrolled hypertension and tachycardia. States that he has not been taking his insulin the last couple of days. TRAVEL OUTSIDE OF THE [place] IN LAST 30 DAYS: No - HPI Patient complains to provider of: Chest pain, Chest tightness Chest pain location: Substernal Quality of pain: Constant Severity now: Moderate Severity at worst: Moderate Pain level currently: 4 - Related Data Allergies/Adverse Reactions: No Known Allergies Allergy (Verified 01/31/19 14:29) Past Medical History - General Information source: Patient - Social History Smoking Status: Current Every Day Smoker Cigarette use (# per day): Yes Family History: Reviewed & Not Pertinent, DM, Hypertension Patient has suicidal ideation: No Patient has homicidal ideation: No - Past Medical History Cardiac Medical History: Reports: Hx Heart Attack - May 2017., Hx Hypertension Denies: Hx Congestive Heart Failure, Hx DVT, Hx Hypercholesterolemia, Hx Pulmonary Embolism Pulmonary Medical History: Reports: Hx Asthma - as child Denies: Hx COPD, Hx Sleep Apnea Neurological Medical History: Reports: Hx Migraine. Denies: Hx Seizures Endocrine Medical History: Reports: Hx Diabetes Mellitus Type 1. Denies: Hx Diabetes Mellitus Type 2, Hx Hyperthyroidism, Hx Hypothyroidism Renal/ Medical History: Denies: Hx Peritoneal Dialysis GI Medical History: Denies: Hx Cirrhosis, Hx Gastroesophageal Reflux Disease, Hx Hepatitis Musculoskeletal Medical History: Denies Hx Arthritis Psychiatric Medical History: Reports: Hx Anxiety, Hx Bipolar Disorder, Hx Depression, Hx Schizophrenia Infectious Medical History: Denies: Hx C-Diff, Hx Hepatitis, Hx MRSA Past Surgical History: Reports: Hx Appendectomy, Hx Oral Surgery - wisdom teeth, Other - [place] teeth extraction - Immunizations Hx Diphtheria, Pertussis, Tetanus Vaccination: Yes Hx Pneumococcal Vaccination: 09/16/00 Review of Systems - Review of Systems Notes: Constitutional: denies: Chills, Diaphoresis, Fever, Malaise, Weakness EENT: denies: Eye discharge, Blurred vision, Tearing, Double vision, Nose congestion, Nose discharge, Throat swelling, Mouth pain Cardiovascular: denies: Palpitations, Heart racing, Orthopnea, Dyspnea,+ Chest pain Respiratory: denies: Cough, Hurts to breathe, Wheezing, Shortness of breath Gastrointestinal: denies: Abdominal pain, Diarrhea, Nausea, Vomiting, Black stools, bright red blood in stool Genitourinary: denies: Burning, Dysuria, Discharge, Frequency, Flank pain, Hematuria Musculoskeletal: denies: Joint pain, Joint swelling, Muscle pain, Muscle stif fness, back pain Hematologic/Lymphatic: denies: Anemia, Easy bleeding, Easy bruising, Blood clots Neurological/Psychological: denies: Confusion, Dementia, Depression, Loss of consciousness Skin: No lesions, no masses, no skin breakdown, no abscesses Physical Exam - Vital signs Vitals: Temp Pulse Resp BP Pulse Ox 98.7 F 127 H 16 167/103 H 98 01/31/19 14:40 01/31/19 14:40 01/31/19 14:40 01/31/19 14:40 01/31/19 14:40 Interpretation: Hypertensive, Tachycardic - General General appearance: Appears well, Alert - HEENT Head: Normocephalic, Atraumatic Eyes: Normal Pupils: PERRL - Respiratory Respiratory status: No respiratory distress Chest status: Nontender Breath sounds: Normal Chest palpation: Normal - Cardiovascular Rhythm: Tachycardia Heart sounds: Normal auscultation Murmur: No - Abdominal Inspection: Normal Distension: No distension Bowel sounds: Normal Tenderness: Nontender Organomegaly: No organomegaly - Back Back: Normal, Nontender - Extremities General upper extremity: Normal inspection, Nontender, Normal color, Normal ROM, Normal temperature General lower extremity: Normal inspection, Nontender, Normal color, Normal ROM, Normal temperature, Normal weight bearing. No: All's sign - Neurological Neuro grossly intact: Yes Cognition: Normal Orientation: AAOx4 [place] Coma Scale Eye Opening: Spontaneous [place] Coma Scale Verbal: Oriented [place] Coma Scale Motor: Obeys Commands [place] Coma Scale Total: 15 Speech: Normal Motor strength normal: LUE, RUE, LLE, RLE Sensory: Normal - Psychological Associated symptoms: Normal affect, Normal mood - Skin Skin Temperature: Warm Skin Moisture: Dry Skin Color: Normal Course - Re-evaluation Re-evalutation: 01/31/19 20:00 Laboratory 01/31/19 01/31/19 01/31/19 14:45 14:45 14:50 WBC RBC Hgb Hct MCV MCH MCHC RDW Plt Count Seg Neutrophils % Lymphocytes % Monocytes % Eosinophils % Basophils % Absolute Neutrophils Absolute Lymphocytes Absolute Monocytes Absolute Eosinophils Absolute Basophils VBG pH VBG pCO2 VBG HCO3 VBG Base Excess Sodium Potassium Chloride Carbon Dioxide Anion Gap BUN Creatinine Est GFR ( Amer) Est GFR (Non-Af Amer) Glucose POC Glucose 250 H Calcium Total Bilirubin Direct Bilirubin Neonat Total Bilirubin Neonat Direct Bilirubin Neonat Indirect Bili AST ALT Alkaline Phosphatase CK-MB (CK-2) Troponin I Total Protein Albumin Lipase Urine Color YELLOW Urine Appearance CLEAR Urine pH 9.0 Ur Specific [place] 1.016 Urine Protein >=500 H Urine Glucose (UA) >=500 H Urine Ketones NEGATIVE Urine Blood NEGATIVE Urine Nitrite NEGATIVE Urine Bilirubin NEGATIVE Urine Urobilinogen NEGATIVE Ur Leukocyte Esterase NEGATIVE Urine WBC (Auto) 1 Urine RBC (Auto) 1 Urine Bacteria (Auto) TRACE Urine Mucus (Auto) RARE Urine Ascorbic Acid NEGATIVE Urine Opiates Screen NEGATIVE Urine Methadone Screen NEGATIVE Ur Barbiturates Screen UNCONFIRMED POSITIVE Ur Phencyclidine Scrn NEGATIVE Ur Amphetamines Screen NEGATIVE U Benzodiazepines Scrn NEGATIVE Urine Cocaine Screen NEGATIVE U Marijuana (THC) Screen NEGATIVE 01/31/19 01/31/19 01/31/19 15:30 15:30 15:30 WBC 12.6 H RBC 5.45 Hgb 14.6 Hct 44.0 MCV 81 MCH 26.9 L MCHC 33.3 RDW 14.1 H Plt Count 475 H Seg Neutrophils % 88.1 H Lymphocytes % 6.2 L Monocytes % 5.5 Eosinophils % 0.0 Basophils % 0.2 Absolute Neutrophils 11.1 H Absolute Lymphocytes 0.8 Absolute Monocytes 0.7 Absolute Eosinophils 0.0 Absolute Basophils 0.0 VBG pH VBG pCO2 VBG HCO3 VBG Base Excess Sodium 142.4 Potassium 4.8 Chloride 98 Carbon Dioxide 32 H Anion Gap 12 BUN 19 Creatinine 1.66 H Est GFR ( Amer) 58 L Est GFR (Non-Af Amer) 48 L Glucose 245 H POC Glucose Calcium 10.2 Total Bilirubin 0.5 Direct Bilirubin 0.4 Neonat Total Bilirubin Not Reportable Neonat Direct Bilirubin Not Reportable Neonat Indirect Bili Not Reportable AST 20 ALT 19 L Alkaline Phosphatase 108 CK-MB (CK-2) 0.45 Troponin I < 0.012 Total Protein 7.7 Albumin 4.2 Lipase 32.8 Urine Color Urine Appearance Urine pH Ur Specific [place] Urine Protein Urine Glucose (UA) Urine Ketones Urine Blood Urine Nitrite Urine Bilirubin Urine Urobilinogen Ur Leukocyte Esterase Urine WBC (Auto) Urine RBC (Auto) Urine Bacteria (Auto) Urine Mucus (Auto) Urine Ascorbic Acid Urine Opiates Screen Urine Methadone Screen Ur Barbiturates Screen Ur Phencyclidine Scrn Ur Amphetamines Screen U Benzodiazepines Scrn Urine Cocaine Screen U Marijuana (THC) Screen 01/31/19 01/31/19 01/31/19 15:30 17:56 19:31 WBC RBC Hgb Hct MCV MCH MCHC RDW Plt Count Seg Neutrophils % Lymphocytes % Monocytes % Eosinophils % Basophils % Absolute Neutrophils Absolute Lymphocytes Absolute Monocytes Absolute Eosinophils Absolute Basophils VBG pH Cancelled 7.43 H VBG pCO2 Cancelled 53.3 VBG HCO3 Cancelled 34.6 H VBG Base Excess Cancelled 8.4 Sodium Potassium Chloride Carbon Dioxide Anion Gap BUN Creatinine Est GFR ( Amer) Est GFR (Non-Af Amer) Glucose POC Glucose 147 H Calcium Total Bilirubin Direct Bilirubin Neonat Total Bilirubin Neonat Direct Bilirubin Neonat Indirect Bili AST ALT Alkaline Phosphatase CK-MB (CK-2) Troponin I Total Protein Albumin Lipase Urine Color Urine Appearance Urine pH Ur Specific [place] Urine Protein Urine Glucose (UA) Urine Ketones Urine Blood Urine Nitrite Urine Bilirubin Urine Urobilinogen Ur Leukocyte Esterase Urine WBC (Auto) Urine RBC (Auto) Urine Bacteria (Auto) Urine Mucus (Auto) Urine Ascorbic Acid Urine Opiates Screen Urine Methadone Screen Ur Barbiturates Screen Ur Phencyclidine Scrn Ur Amphetamines Screen U Benzodiazepines Scrn Urine Cocaine Screen U Marijuana (THC) Screen Chest X-Ray 01/31/19 14:51 IMPRESSION: NO ACUTE RADIOGRAPHIC FINDING IN THE CHEST. Patient's blood pressure is come down. His heart rate is coming down. Currently his heart rate is sitting at about 104. His blood pressure is 160/80. Troponin is negative. He is represent a cardiac event but his second troponin has been ordered. Patient is afebrile. Nontoxic-appearing. Not in DKA. Patient does have a long-standing history of medication noncompliance. I had a long discussion with patient's primary care doctor who knows him well. He is comfortable following him as an outpatient. I reviewed the records shows the patient has had multiple visits here we where he has tested positive for cocaine so even though his urinalysis does not show evidence of cocaine it is still p ossible. He has a long-standing tachycardia so this tachycardia and hypertension is not new. At this time I feel comfortable giving him some oral beta-blockers and more likely discharge him. Dr. Ann is aware and will follow. 01/31/19 20:44 01/31/19 21:18 Patient's blood pressure is still high but patient wants to leave. Patient states that he has a ride here and he needs to go. At this time patient is going to be discharged. - Vital Signs Vital signs: Temp Pulse Resp BP Pulse Ox 98.7 F 127 H 11 L 132/89 H 95 01/31/19 14:40 01/31/19 14:40 01/31/19 19:01 01/31/19 19:00 01/31/19 19:01 - Laboratory Result Diagrams: 01/31/19 15:30 01/31/19 15:30 Laboratory results interpreted by me: 01/31/19 01/31/19 01/31/19 14:45 14:50 15:30 WBC 12.6 H MCH 26.9 L RDW 14.1 H Plt Count 475 H Seg Neutrophils % 88.1 H Lymphocytes % 6.2 L Absolute Neutrophils 11.1 H VBG pH VBG HCO3 Carbon Dioxide Creatinine Est GFR ( Amer) Est GFR (Non-Af Amer) Glucose POC Glucose 250 H ALT Urine Protein >=500 H Urine Glucose (UA) >=500 H 01/31/19 01/31/19 01/31/19 15:30 17:56 19:31 WBC MCH RDW Plt Count Seg Neutrophils % Lymphocytes % Absolute Neutrophils VBG pH 7.43 H VBG HCO3 34.6 H Carbon Dioxide 32 H Creatinine 1.66 H Est GFR ( Amer) 58 L Est GFR (Non-Af Amer) 48 L Glucose 245 H POC Glucose 147 H ALT 19 L Urine Protein Urine Glucose (UA) - EKG Interpretation by Ok EKG shows normal: [place], Intervals, QRS Complexes. abnormal: ST-T Waves - Nonspecific T wave abnormalities in the lateral leads. Unchanged from prior EKG. Rate: Tachycardia When compared to previous EKG there are: No significant change Additional EKG results interpreted by me: 01/31/19 20:02 Interpretation: Sinus tachycardia. Nonspecific T wave changes. Discharge - Discharge Clinical Impression: Tachycardia Hypertension Qualifiers: Hypertension type: unspecified Qualified Code(s): I10 - Essential (primary) hypertension Condition: Good Disposition: HOME, SELF-CARE Instructions: Chest Pain of Unclear Cause ([facility]), High Blood Pressure, Requiring Treatment ([facility]) Additional Instructions: Please follow-up with Dr. Ann Saturday please take your blood pressure medication every day. Please take your diabetes medication every day. Avoid tobacco. Avoid stimulating substances such as cocaine, methamphetamine, excess caffeine, [id number] supplements, energy drinks etc.. Return for any worsening symptoms or concerns. Prescriptions: Amlodipine Besylate [Norvasc 10 mg Tablet] 10 mg PO DAILY 30 Days #30 tablet Metoprolol Tartrate [Lopressor 50 mg Tablet] 50 mg PO Q12H #60 tablet Referrals: JARON ANN MD [Primary Care Provider] - Follow up as needed
[2019-01-31] MEDS ORDERED: DIPHENHYDRAMINE HCL 50 MG/ML VIAL IV ONE (15:41)
[2019-01-31] MEDS ORDERED: PROCHLORPERAZINE EDISYLATE INJ 10 MG/2 ML VIAL IM ONE (15:41)
[2019-01-31] MEDS ORDERED: KETOROLAC TROMETHAMINE INJ/PF 30 MG/1 ML SDV IV ONE (15:42)
[2019-01-31] MEDS ORDERED: FAMOTIDINE INJ/PF 20 MG/2 ML SDV IV ONE (15:47)
[2019-01-31] MEDS ORDERED: METOPROLOL TARTRATE PF/INJ 5 MG/5 ML SDV IV ONE ×2 (15:47→20:34)
--- NOTE | 2019-01-31 15:49 | RADIOLOGY REPORT (SQ) ---
EXAM DESCRIPTION: CHEST SINGLE VIEW COMPLETED DATE/TIME: 01/31/2019 3:41 pm REASON FOR STUDY: chest pain COMPARISON: 10/01/2018. EXAM PARAMETERS: NUMBER OF VIEWS: One view. TECHNIQUE: Single frontal radiographic view of the chest acquired. RADIATION DOSE: NA LIMITATIONS: None. FINDINGS: LUNGS AND PLEURA: No opacities, masses or pneumothorax. No pleural effusion. MEDIASTINUM AND HILAR STRUCTURES: No masses. Contour normal. HEART AND VASCULAR STRUCTURES: Heart normal in size. Normal vasculature. BONES: No acute findings. HARDWARE: None in the chest. OTHER: No other significant finding. IMPRESSION: NO ACUTE RADIOGRAPHIC FINDING IN THE CHEST. TECHNICAL DOCUMENTATION: JOB ID: [id number] [employer]- All Rights Reserved Reading location - IP/workstation name: [email or web address]
[2019-01-31 15:53] LABS: ABSOLUTE LYMPHOCYTES (AUTO) 0.8 10^3/uL (0.5-4.7); ABSOLUTE MONOCYTES (AUTO) 0.7 10^3/uL (0.1-1.4); ABSOLUTE NEUT (AUTO) 11.1 10^3/uL (1.7-8.2); BASOPHILS % (AUTO) 0.2 % (0-2); HEMOGLOBIN 14.6 g/dL (13.5-17.0); LYMPHOCYTES % (AUTO) 6.2 % (13-45); MEAN CORPUSCULAR HEMOGLOBIN 26.9 pg (27.0-33.4); MEAN CORPUSCULAR HGB CONC 33.3 g/dL (32.0-36.0); MEAN CORPUSCULAR VOLUME 81 fl (80-97); MONOCYTES % (AUTO) 5.5 % (3-13); PLATELET COUNT 475 10^3/uL (150-450); RED BLOOD COUNT 5.45 10^6/uL (4.35-5.55); RED CELL DISTRIBUTION WIDTH 14.1 % (11.5-14.0); SEGMENTED NEUTROPHILS % (AUTO) 88.1 % (42-78); TOTAL CELLS COUNTED % (AUTO) 100 %; WHITE BLOOD COUNT 12.6 10^3/uL (4.0-10.5)
[2019-01-31 15:56] LABS: APPEARANCE,URINE CLEAR; BILIRUBIN,URINE NEGATIVE (NEGATIVE); COLOR,URINE YELLOW; GLUCOSE, URINE >=500 mg/dL (NEGATIVE); KETONES,URINE NEGATIVE (NEGATIVE); LEUKOCYTE ESTERASE,URINE NEGATIVE (NEGATIVE); NITRITE,URINE NEGATIVE (NEGATIVE); PROTEIN,URINE >=500 mg/dL (NEGATIVE); URINE SPECIFIC GRAVITY 1.016; UROBILINOGEN,URINE NEGATIVE mg/dL (<2.0)
[2019-01-31 16:01] LABS: URINE AMPHETAMINES SCREEN NEGATIVE; URINE BARBITURATES SCREEN UNCONFIRMED POSITIVE; URINE BENZODIAZEPINES SCREEN NEGATIVE; URINE COCAINE SCREEN NEGATIVE; URINE MARIJUANA (THC) SCREEN NEGATIVE; URINE METHADONE SCREEN NEGATIVE; URINE PHENCYCLIDINE SCREEN NEGATIVE
[2019-01-31 16:09] LABS: ALANINE AMINOTRANSFERASE 19 U/L (21-72); ALBUMIN 4.2 g/dL (3.5-5.0); ALKALINE PHOSPHATASE 108 U/L (38-126); ANION GAP 12 (5-19); ASPARTATE AMINO TRANSFERASE 20 U/L (17-59); BILIRUBIN,DIRECT 0.4 mg/dL (0.0-0.4); BILIRUBIN,TOTAL 0.5 mg/dL (0.2-1.3); BLOOD UREA NITROGEN 19 mg/dL (7-20); CALCIUM 10.2 mg/dL (8.4-10.2); CARBON DIOXIDE 32 mmol/L (22-30); CHLORIDE 98 mmol/L (98-107); GLUCOSE 245 mg/dL (75-110); LIPASE 32.8 U/L (23-300); POTASSIUM 4.8 mmol/L (3.6-5.0); SODIUM 142.4 mmol/L (137-145); TOTAL PROTEIN 7.7 g/dL (6.3-8.2)
[2019-01-31 16:19] LABS: CREATINE KINASE MB 0.45 ng/mL (<4.55); TROPONIN I < 0.012 ng/mL
[2019-01-31 18:03] LABS: VENOUS BLOOD BASE EXCESS 8.4 mmol/L; VENOUS BLOOD HCO3 34.6 mmol/L (20-32); VENOUS BLOOD PCO2 53.3 mmHg (35-63); VENOUS BLOOD PH 7.43 (7.30-7.42)
[2019-01-31] MEDS ORDERED: OXYCODONE-ACETAMINOPHEN 5-325 MG TABLET PO ONE (20:02)
[2019-01-31] MEDS ORDERED: METOPROLOL TARTRATE 50 MG TABLET PO ONE (20:29)
[2019-01-31 21:53] VITALS: BP 181/108
== END 2019-01-31 21:10 | disposition home or self-care (01) ==
LOC: ER 14:27
DX: R07.89 Other chest pain (principal); I10 Essential (primary) hypertension; R00.0 Tachycardia, unspecified; E10.9 Type 1 diabetes mellitus without complications; F17.210 Nicotine dependence, cigarettes, uncomplicated; I25.2 Old myocardial infarction
CPT/HCPCS: 93005; 96376; 99285; 96372; 96361; 96374; 96375; 36415; 82553; 82962; 83690; 85025; 80053; 81001; 84484; 80307; 82803; 71045; 93010; J1200; J1885; J3490 ×2; J0780; J2405; J7030; S0028

== ENCOUNTER 2019-03-23 00:46 | Emergency (ER) | payer MEDICAID ==
[2019-03-23] MEDS ORDERED: NORMAL SALINE 1000 ML 1,000 ML IV ONE ×2 (03:16)
[2019-03-23] MEDS ORDERED: ONDANSETRON HCL INJ/PF 4 MG/2 ML SDV IV ONE (03:18)
[2019-03-23 04:22] LABS: ABSOLUTE BASOPHILS # (AUTO) 0.1 10^3/uL (0.0-0.2); ABSOLUTE LYMPHOCYTES (AUTO) 1.1 10^3/uL (0.5-4.7); ABSOLUTE MONOCYTES (AUTO) 0.6 10^3/uL (0.1-1.4); ABSOLUTE NEUT (AUTO) 5.6 10^3/uL (1.7-8.2); BASOPHILS % (AUTO) 1.1 % (0-2); EOSINOPHILS % (AUTO) 0.7 % (0-6); HEMATOCRIT 41.8 % (37.9-51.0); HEMOGLOBIN 13.7 g/dL (13.5-17.0); LYMPHOCYTES % (AUTO) 14.9 % (13-45); MEAN CORPUSCULAR HGB CONC 32.8 g/dL (32.0-36.0); MEAN CORPUSCULAR VOLUME 82 fl (80-97); MONOCYTES % (AUTO) 8.7 % (3-13); PLATELET COUNT 281 10^3/uL (150-450); RED BLOOD COUNT 5.09 10^6/uL (4.35-5.55); RED CELL DISTRIBUTION WIDTH 14.7 % (11.5-14.0); SEGMENTED NEUTROPHILS % (AUTO) 74.6 % (42-78); TOTAL CELLS COUNTED % (AUTO) 100 %; WHITE BLOOD COUNT 7.4 10^3/uL (4.0-10.5)
[2019-03-23 05:07] LABS: VENOUS BLOOD BASE EXCESS 1.5 mmol/L; VENOUS BLOOD HCO3 27.6 mmol/L (20-32); VENOUS BLOOD PCO2 49.5 mmHg (35-63); VENOUS BLOOD PH 7.36 (7.30-7.42)
[2019-03-23 05:26] LABS: ALANINE AMINOTRANSFERASE 27 U/L (21-72); ALBUMIN 3.6 g/dL (3.5-5.0); ALKALINE PHOSPHATASE 91 U/L (38-126); ANION GAP 12 (5-19); ASPARTATE AMINO TRANSFERASE 20 U/L (17-59); BILIRUBIN,DIRECT 0.4 mg/dL (0.0-0.4); BILIRUBIN,TOTAL 0.7 mg/dL (0.2-1.3); BLOOD UREA NITROGEN 22 mg/dL (7-20); CALCIUM 8.9 mg/dL (8.4-10.2); CARBON DIOXIDE 26 mmol/L (22-30); CHLORIDE 95 mmol/L (98-107); LIPASE 25.4 U/L (23-300); POTASSIUM 5.1 mmol/L (3.6-5.0); SODIUM 132.8 mmol/L (137-145); TOTAL PROTEIN 6.3 g/dL (6.3-8.2)
[2019-03-23 05:37] LABS: GLUCOSE 522 mg/dL (75-110)
[2019-03-23] MEDS ORDERED: INSULIN REG, HUMAN 100 UNIT/ML 3 ML VIAL (PYX) SUBCUT ONE (05:39)
[2019-03-23] MEDS ORDERED: LIDOCAINE 2% VISCOUS SOLN 20 ML UDCUP PO ONE (05:43)
[2019-03-23] MEDS ORDERED: SUCRALFATE 1 GM TABLET PO ONE (05:45)
[2019-03-23] MEDS ORDERED: PROMETHAZINE HCL 25 MG TABLET PO ONE (05:45)
--- NOTE | 2019-03-23 06:20 | ER Document Report ---
ED GI/ - General Chief Complaint: Nausea/Vomiting Stated Complaint: VOMITING,SORE THROAT Time Seen by Provider: 03/23/19 03:08 Primary Care Provider: ANETA MAC MD [ACTIVE STAFF] - Follow up in 1 week JARON ANN MD [Primary Care Provider] - Follow up in 3-5 days Notes: Patient is a 33-year-old male that comes to the emergency department for chief complaint of vomiting, he states he vomited multiple times throughout the day and because he could not keep anything down he came in. He states he has had problems with this intermittently in the past. He denies chest pain, fever/chills, shortness of breath. He states it may in his throat. Past medical history includes insulin for diabetes with a history of noncompliance, hypertension, cocaine abuse, gastritis, appendectomy. TRAVEL OUTSIDE OF THE [place] IN LAST 30 DAYS: No - Related Data Allergies/Adverse Reactions: No Known Allergies Allergy (Verified 01/31/19 14:29) Past Medical History - General Information source: Patient - Social History Smoking Status: Current Every Day Smoker Smoking Education Provided: Yes - < 3min Frequency of alcohol use: None Drug Abuse: Cocaine Lives with: Family Family History: Reviewed & Not Pertinent, DM, Hypertension Patient has suicidal ideation: No Patient has homicidal ideation: No - Past Medical History Cardiac Medical History: Reports: Hx Heart Attack - May 2017., Hx Hypertension Denies: Hx Congestive Heart Failure, Hx DVT, Hx Hypercholesterolemia, Hx Pulmonary Embolism Pulmonary Medical History: Reports: Hx Asthma - as child Denies: Hx COPD, Hx Sleep Apnea Neurological Medical History: Reports: Hx Migraine. Denies: Hx Seizures Endocrine Medical History: Reports: Hx Diabetes Mellitus Type 1. Denies: Hx Diabetes Mellitus Type 2, Hx Hyperthyroidism, Hx Hypothyroidism Renal/ Medical History: Denies: Hx Peritoneal Dialysis GI Medical History: Denies: Hx Cirrhosis, Hx Gastroesophageal Reflux Disease, Hx Hepatitis Musculoskeletal Medical History: Denies Hx Arthritis Psychiatric Medical History: Reports: Hx Anxiety, Hx Bipolar Disorder, Hx Depression, Hx Schizophrenia Infectious Medical History: Denies: Hx C-Diff, Hx Hepatitis, Hx MRSA Past Surgical History: Reports: Hx Appendectomy, Hx Oral Surgery - wisdom teeth, Other - [place] teeth extraction - Immunizations Hx Diphtheria, Pertussis, Tetanus Vaccination: Yes Hx Pneumococcal Vaccination: 09/16/00 Review of Systems - Review of Systems Constitutional: No symptoms reported EENT: No symptoms reported Cardiovascular: No symptoms reported Respiratory: No symptoms reported Gastrointestinal: See HPI Genitourinary: No symptoms reported Male Genitourinary: No symptoms reported Musculoskeletal: No symptoms reported Skin: No symptoms reported Hematologic/Lymphatic: No symptoms reported Neurological/Psychological: No symptoms reported Physical Exam - Vital signs Vitals: Temp Pulse Resp BP Pulse Ox 98.4 F 119 H 18 175/111 H 97 03/23/19 01:03/23/19 01:03/23/19 01:03/23/19 01:03/23/19 01:23 - Notes Notes: GENERAL: Alert, interacts well. No acute distress. HEAD: Normocephalic, atraumatic. EYES: Pupils equal, round, and reactive to light. Extraocular movements intact. ENT: Oral mucosa dry, tongue midline. Oropharynx unremarkable. Airway patent. Nares patent, no nasal septal hematoma, TM's intact. NECK: Full range of motion. Supple. Trachea midline. LUNGS: Clear to auscultation bilaterally, no wheezes, rales, or rhonchi. No respiratory distress. HEART: Tachycardia, normal rhythm, no murmur ABDOMEN: Generalized abdominal tenderness without specific guarding, no distention, no rebound tenderness. Bowel sounds present throughout. GENITOURINARY: Deferred EXTREMITIES: Moves all 4 extremities spontaneously. No edema, normal radial and dorsalis pedis pulses bilaterally. No cyanosis. BACK: no cervical, thoracic, lumbar midline tenderness. No saddle anesthesia, normal distal neurovascular exam. Moves all extremities in full range of motion. NEUROLOGICAL: Alert and oriented x3. Normal speech. Cranial nerves II through XII grossly intact. PSYCH: Normal affect, normal mood. SKIN: Warm, dry, normal turgor. No rashes or lesions noted. Course - Re-evaluation Re-evalutation: Patient is tachycardic but he is actually quite well-appearing. He has generalized abdominal tenderness. No fever or hypotension. CBC unremarkable. Chemistry shows hyperglycemia in the 500s but bicarbonate and anion gap are both normal. Creatinine is 1.9 however this is not significantly different from his kidney functioning in the past. Venous blood gas is normal. On reevaluation after IV fluids and Zofran patient states he feels improved. Patient only has borderline tachycardia now on my reevaluation. Discussed work-up. Given insulin, giving more IV fluids, perform p.o. challenge. Patient tolerated p.o., blood glucose is starting to downtrend, patient is now sleeping comfortably but easily aroused. I did discuss patient's work-up, treatment, he states he is already taking Carafate at home. Patient requesting to drink lidocaine, afterwards he states he will take his medication at home and he states he will follow-up with GI. Patient will be discharged because he is able to tolerate p.o., he does not have metabolic acidosis, I again encouraged him to take his medications. I did discuss return precautions in detail. Patient states satisfaction and agreement with plan. - Vital Signs Vital signs: Temp Pulse Resp BP Pulse Ox 98.5 F 114 H 15 140/85 H 94 03/23/19 07:25 03/23/19 07:25 03/23/19 07:25 03/23/19 07:00 03/23/19 07:01 - Laboratory Result Diagrams: 03/23/19 03:59 03/23/19 04:54 Laboratory results interpreted by me: 03/23/19 03/23/19 03/23/19 03:59 04:54 06:43 RDW 14.7 H Sodium 132.8 L Potassium 5.1 H Chloride 95 L BUN 22 H Creatinine 1.93 H Est GFR ( Amer) 48 L Est GFR (Non-Af Amer) 40 L Glucose 522 H* POC Glucose 410 H* Discharge - Discharge Clinical Impression: Hyperglycemia, Dehydration Vomiting Qualifiers: Vomiting type: unspecified Vomiting Intractability: non-intractable Nausea presence: with nausea Qualified Code(s): R11.2 - Nausea with vomiting, unspecified Abdominal pain Qualifiers: Abdominal location: generalized Qualified Code(s): R10.84 - Generalized abdominal pain Condition: Stable Disposition: HOME, SELF-CARE Additional Instructions: Continue rehydration at home. Take Phenergan if needed for nausea. Start with clear fluids and bland diet. Take your home medications including insulin, Carafate, etc. Follow-up closely with your primary care provider. Your symptoms are very suggestive of gastritis/esophagitis (inflammation of the upper gastrointestinal tract). Avoid NSAIDs, smoking, alcohol, spicy food, caffeine, or recreational drugs as all of these things will make your symptoms worse. Follow-up with the gastroenterology referral. Return if you worsen including return vomiting, vomiting blood, black stools, severe worsening pain, fever/chills, or any other concerning symptoms. Prescriptions: Promethazine HCl [Phenergan 25 mg Tablet] 25 mg PO Q6H PRN #20 tablet PRN Reason: Referrals: JARON ANN MD [Primary Care Provider] - Follow up in 3-5 days ANETA MAC MD [ACTIVE STAFF] - Follow up in 1 week
[2019-03-23 07:18] VITALS: BP 140/85
== END 2019-03-23 07:25 | disposition home or self-care (01) ==
LOC: ER 00:46
DX: R11.2 Nausea with vomiting, unspecified (principal); E10.65 Type 1 diabetes mellitus with hyperglycemia; R10.84 Generalized abdominal pain; E86.0 Dehydration; R10.817 Generalized abdominal tenderness; R00.0 Tachycardia, unspecified; R09.89 Other specified symptoms and signs involving the circulatory and respiratory systems; K21.9 Gastro-esophageal reflux disease without esophagitis; Z79.899 Other long term (current) drug therapy; I10 Essential (primary) hypertension; F14.10 Cocaine abuse, uncomplicated; F17.200 Nicotine dependence, unspecified, uncomplicated; Z90.49 Acquired absence of other specified parts of digestive tract; Z87.19 Personal history of other diseases of the digestive system
CPT/HCPCS: 99283; 96361; 96374; 36415; 82962; 83690; 85025; 80053; 82803; J1815; J3490; J2405; J7030

== ENCOUNTER 2019-03-24 10:43 | Inpatient (IN) | payer MEDICAID ==
[2019-03-24] MEDS ORDERED: ONDANSETRON HCL INJ/PF 4 MG/2 ML SDV IV ONE (11:03)
[2019-03-24] MEDS: NORMAL SALINE 1000 ML 1,000 ML IV PRN ×2 (11:05→12:25)
--- NOTE | 2019-03-24 11:10 | ER Document Report ---
ED General - General Stated Complaint: CHEST PAIN Time Seen by Provider: 03/24/19 10:53 Primary Care Provider: JARON ANN MD [Primary Care Provider] - Follow up as needed Notes: Patient is a known insulin-dependent diabetic who says he ran out of his Lantus insulin couple of days ago. Also has run out of his blood pressure medicines. Patient says he was here night before last and discharged from the emergency department. He says he does not think that was due to his diabetes because he does not think he got any insulin on that visit. Patient is complaining of nausea and has vomited about 7 times. Denies change in bowels. Has not had any fevers. Complains of some anterior chest pains. Patient has an extremely long history of noncompliance with his medications for his diabetes and his high blood pressure. TRAVEL OUTSIDE OF THE [place] IN LAST 30 DAYS: No - Related Data Allergies/Adverse Reactions: No Known Allergies Allergy (Verified 01/31/19 14:29) Past Medical History - Social History Smoking Status: Unknown if Ever Smoked Family History: Reviewed & Not Pertinent, DM, Hypertension - Past Medical History Cardiac Medical History: Reports: Hx Heart Attack - May 2017., Hx Hypertension Denies: Hx Congestive Heart Failure, Hx DVT, Hx Hypercholesterolemia, Hx Pulmonary Embolism Pulmonary Medical History: Reports: Hx Asthma - as child Denies: Hx COPD, Hx Sleep Apnea Neurological Medical History: Reports: Hx Migraine. Denies: Hx Seizures Endocrine Medical History: Reports: Hx Diabetes Mellitus Type 1. Denies: Hx Diabetes Mellitus Type 2, Hx Hyperthyroidism, Hx Hypothyroidism Renal/ Medical History: Denies: Hx Peritoneal Dialysis GI Medical History: Denies: Hx Cirrhosis, Hx Gastroesophageal Reflux Disease, Hx Hepatitis Musculoskeletal Medical History: Denies Hx Arthritis Psychiatric Medical History: Reports: Hx Anxiety, Hx Bipolar Disorder, Hx Depression, Hx Schizophrenia Infectious Medical History: Denies: Hx C-Diff, Hx Hepatitis, Hx MRSA Past Surgical History: Reports: Hx Appendectomy, Hx Oral Surgery - wisdom teeth, Other - [place] teeth extraction - Immunizations Hx Diphtheria, Pertussis, Tetanus Vaccination: Yes Hx Pneumococcal Vaccination: 09/16/00 Review of Systems - Review of Systems Notes: REVIEW OF SYSTEMS: CONSTITUTIONAL : Denies fever. EENT: Denies eye, ear, nose or mouth or throat pain or other symptoms. CARDIOVASCULAR: Complains of anterior chest pain. RESPIRATORY: Denies cough, chest congestion, or shortness of breath. GASTROINTESTINAL: See HPI. GENITOURINARY: Denies difficulty or painful urinating, urinary frequency, blood in urine. MUSCULOSKELETAL: Denies back or neck pain. Denies joint pain or swelling. SKIN: Denies rash or skin lesions. NEUROLOGICAL: Denies LOC or altered mental status. Denies headache. Denies sensory loss or motor deficits. ALL OTHER SYSTEMS REVIEWED AND NEGATIVE. Physical Exam - Vital signs Vitals: Temp Resp BP Pulse Ox 98.8 F 23 H 174/113 H 99 03/24/19 10:48 03/24/19 10:48 03/24/19 10:48 03/24/19 10:48 Interpretation: Hypertensive Notes: PHYSICAL EXAMINATION: GENERAL: Active vomiting.. HEAD: Atraumatic, normocephalic. EYES: Pupils equal round and reactive to light, extraocular movements intact. ENT: oropharynx clear without exudates. Moist mucous membranes. NECK: Normal range of motion, supple. LUNGS: Breath sounds clear and equal bilaterally. Tender to press on the anterior chest and sternum. HEART: Regular rate and rhythm without murmurs. Heart rate about 100 at bedside by me. ABDOMEN: Soft, nontender. No guarding or rebound. No masses. BACK: No tenderness throughout entire back. EXTREMITIES: Normal range of motion without pain. NEUROLOGICAL: Normal speech, normal gait. Normal sensory, motor, and reflex exams. Awake, alert, and oriented x3. Cranial nerves normal. PSYCH: Normal mood, normal affect. SKIN: Warm, dry, no rashes. Course - Re-evaluation Re-evalutation: 03/24/19 13:34 Patient was given a couple liters of saline. He continued to have vomiting in spite of Zofran 8 mg IV so I gave him Reglan 10 mg IV. Patient's blood sugar still running in the 500s so I am going to contact the hospitalist for admission. - Vital Signs Vital signs: Temp Pulse Resp BP Pulse Ox 98.8 F 28 H 187/158 H 100 03/24/19 10:48 03/24/19 12:01 03/24/19 12:00 03/24/19 12:01 - Laboratory Result Diagrams: 03/24/19 11:00 03/24/19 11:00 Laboratory results interpreted by me: 03/24/19 03/24/19 03/24/19 10:49 11:00 11:00 Hgb 13.4 L RDW 14.5 H Seg Neutrophils % 91.3 H Lymphocytes % 6.2 L Monocytes % 1.8 L Absolute Neutrophils 8.6 H VBG pCO2 Sodium 133.9 L Chloride 94 L Carbon Dioxide 19 L Anion Gap 21 H BUN 29 H Creatinine 2.05 H Est GFR ( Amer) 45 L Est GFR (Non-Af Amer) 37 L Glucose 638 H* POC Glucose > 550 H* Direct Bilirubin 0.6 H ALT 17 L Urine Protein Urine Glucose (UA) Urine Ketones Urine Blood 03/24/19 03/24/19 11:00 11:30 Hgb RDW Seg Neutrophils % Lymphocytes % Monocytes % Absolute Neutrophils VBG pCO2 32.4 L Sodium Chloride Carbon Dioxide Anion Gap BUN Creatinine Est GFR ( Amer) Est GFR (Non-Af Amer) Glucose POC Glucose Direct Bilirubin ALT Urine Protein 100 H Urine Glucose (UA) >=1000 H Urine Ketones 100 H Urine Blood SMALL H Discharge - Discharge Clinical Impression: IDDM (insulin dependent diabetes mellitus), Diabetic ketoacidosis, Vomiting, Chest pain, Noncompliance, Hyperglycemia Disposition: ADMITTED INPATIENT Admitting Provider: Nicholas (Hospitalist) Unit Admitted: IMCU Referrals: JARON ANN MD [Primary Care Provider] - Follow up as needed
[2019-03-24 11:20] LABS: VENOUS BLOOD BASE EXCESS -3.1 mmol/L; VENOUS BLOOD HCO3 20.4 mmol/L (20-32); VENOUS BLOOD PCO2 32.4 mmHg (35-63); VENOUS BLOOD PH 7.42 (7.30-7.42)
--- NOTE | 2019-03-24 11:24 | EKG REPORT ---
SEVERITY:- ABNORMAL ECG - SINUS TACHYCARDIA PROBABLE INFERIOR INFARCT, AGE INDETERMINATE BORDERLINE R WAVE PROGRESSION, ANTERIOR LEADS : Confirmed by: Arin Drummond MD 24-Mar-2019 11:23:27
[2019-03-24 11:28] LABS: ABSOLUTE BASOPHILS # (AUTO) 0.1 10^3/uL (0.0-0.2); ABSOLUTE LYMPHOCYTES (AUTO) 0.6 10^3/uL (0.5-4.7); ABSOLUTE MONOCYTES (AUTO) 0.2 10^3/uL (0.1-1.4); ABSOLUTE NEUT (AUTO) 8.6 10^3/uL (1.7-8.2); BASOPHILS % (AUTO) 0.7 % (0-2); HEMATOCRIT 40.8 % (37.9-51.0); HEMOGLOBIN 13.4 g/dL (13.5-17.0); LYMPHOCYTES % (AUTO) 6.2 % (13-45); MEAN CORPUSCULAR HEMOGLOBIN 27.3 pg (27.0-33.4); MEAN CORPUSCULAR HGB CONC 32.9 g/dL (32.0-36.0); MEAN CORPUSCULAR VOLUME 83 fl (80-97); MONOCYTES % (AUTO) 1.8 % (3-13); PLATELET COUNT 268 10^3/uL (150-450); RED BLOOD COUNT 4.91 10^6/uL (4.35-5.55); RED CELL DISTRIBUTION WIDTH 14.5 % (11.5-14.0); SEGMENTED NEUTROPHILS % (AUTO) 91.3 % (42-78); TOTAL CELLS COUNTED % (AUTO) 100 %; WHITE BLOOD COUNT 9.4 10^3/uL (4.0-10.5)
[2019-03-24 11:40] LABS: ALANINE AMINOTRANSFERASE 17 U/L (21-72); ALBUMIN 4.4 g/dL (3.5-5.0); ALKALINE PHOSPHATASE 122 U/L (38-126); ASPARTATE AMINO TRANSFERASE 22 U/L (17-59); BILIRUBIN,DIRECT 0.6 mg/dL (0.0-0.4); BILIRUBIN,TOTAL 0.9 mg/dL (0.2-1.3); BLOOD UREA NITROGEN 29 mg/dL (7-20); CALCIUM 9.7 mg/dL (8.4-10.2); LIPASE 49.9 U/L (23-300); POTASSIUM 4.7 mmol/L (3.6-5.0); TOTAL PROTEIN 7.7 g/dL (6.3-8.2)
[2019-03-24 11:45] LABS: CARBON DIOXIDE 19 mmol/L (22-30); CHLORIDE 94 mmol/L (98-107); SODIUM 133.9 mmol/L (137-145)
[2019-03-24 11:48] LABS: ANION GAP 21 (5-19)
[2019-03-24 11:49] LABS: CREATINE KINASE MB 1.05 ng/mL (<4.55); GLUCOSE 638 mg/dL (75-110)
[2019-03-24 11:51] LABS: TROPONIN I < 0.012 ng/mL
[2019-03-24] MEDS ORDERED: METOCLOPRAMIDE HCL INJ/PF 10 MG/2 ML SDV IV ONE ×2 (12:52→13:50)
[2019-03-24 12:53] LABS: APPEARANCE,URINE CLEAR; BILIRUBIN,URINE NEGATIVE (NEGATIVE); COLOR,URINE STRAW; GLUCOSE, URINE >=1000 mg/dL (NEGATIVE); KETONES,URINE 100 mg/dL (NEGATIVE); LEUKOCYTE ESTERASE,URINE NEGATIVE (NEGATIVE); NITRITE,URINE NEGATIVE (NEGATIVE); PROTEIN,URINE 100 mg/dL (NEGATIVE); UROBILINOGEN,URINE NEGATIVE mg/dL (<2.0)
[2019-03-24] MEDS ORDERED: DIPHENHYDRAMINE HCL 50 MG/ML VIAL IV ONE (12:53)
[2019-03-24 12:54] LABS: URINE SPECIFIC GRAVITY 1.022
[2019-03-24] MEDS ORDERED: INSULIN REG, HUMAN 100 UNIT/ML 3 ML VIAL (PYX) IV ONE (13:29)
[2019-03-24] MEDS ORDERED: HYDROMORPHONE HCL INJ/PF 2 MG/ML AMPULE IV ONE (13:50)
[2019-03-24] MEDS ORDERED: TEMAZEPAM 15 MG CAPSULE PO PRN (14:18)
[2019-03-24] MEDS ORDERED: ONDANSETRON HCL INJ/PF 4 MG/2 ML SDV IV PRN (14:18)
--- NOTE | 2019-03-24 14:18 | PDOC H&P ---
History of Present Illness Admission Date/PCP: JARON ANN MD History of Present Illness: LENA SCHULZ is a 33 year old black male patient was past medical history of insulin-dependent diabetes mellitus, hypertension, tobacco dependence, medical noncompliance presented with 2 days history of nausea vomiting and abdominal pain. Patient states that he ran short of his long- acting insulin Lantus. Patient denies any chills fever cough palpitation or diaphoresis. He endorses chest pain. He has nausea vomiting but no diarrhea. He does not have any urinary complaints. He needs initial blood work shows hyperglycemia with blood sugar level of 638, BUN of creatinine of 2.02. Patient has been started on IV fluids and insulin drip and the hospital service consulted for admission. Past Medical History Cardiac Medical History: Reports: Myocardial Infarction - May 2017., Hypertension Denies: Congestive Heart Failure, DVT, Hyperlipidema, Pulmonary Embolism Pulmonary Medical History: Reports: Asthma - as child Denies: Chronic Obstructive Pulmonary Disease (COPD), Sleep Apnea Neurological Medical History: Reports: Migraine Denies: Seizures Endocrine Medical History: Reports: Diabetes Mellitus Type 1 Denies: Diabetes Mellitus Type 2, Hyperthyroidism, Hypothyroidism GI Medical History: Denies: Cirrhosis, Gastroesophageal Reflux Disease, Hepatitis Musculoskeltal Medical History: Denies: Arthritis Psychiatric Medical History: Reports: Bipolar Disorder, Depression Hematology: Reports: Anemia Infectious Medical History: Denies: Clostridium Difficile, Methicillin-Resistant Staph Aureus Past Surgical History Past Surgical History: Reports: Appendectomy, Other - [place] teeth extraction Social History Smoking Status: Current Every Day Smoker Frequency of Alcohol Use: None Hx Recreational Drug Use: No Drugs: None Hx Prescription Drug Abuse: No - Advance Directive Resuscitation Status: Full Code Family History Family History: Reviewed & Not Pertinent, DM, Hypertension Parental Family History Reviewed: Yes Children Family History Reviewed: Yes Sibling(s) Family History Reviewed.: Yes Medication/Allergy Home Medications: Chlorpromazine HCl [Thorazine 50 mg Tablet] 50 mg PO BID 10/01/18 Mirtazapine [Remeron] 45 mg PO DAILY 10/01/18 Amlodipine Besylate [Norvasc 10 mg Tablet] 10 mg PO QAM #30 tablet 10/06/18 Insulin Glargine,Hum.rec.anlog [Lantus (Pyxis) Insulin 100 Unit/1 ml 10 ml] 35 units SQ DAILY #2 unit 10/06/18 Quetiapine Fumarate [Seroquel] 800 mg PO QHS #30 tablet 10/06/18 Ranitidine HCl [Zantac 150 mg Tablet] 150 mg PO BIDP #60 tablet 10/06/18 Sucralfate [Carafate 1 gm Tablet] 1 gm PO Q6 #120 tablet 10/06/18 Trazodone HCl [Desyrel 50 mg Tablet] 50 mg PO QHS #90 tablet 10/06/18 Insulin Lispro [Humalog Insulin (Lispro) 100 unit/mL] 0 units SQ .SLD SCALE 11/04/18 Omeprazole 40 mg PO BID 11/04/18 Amlodipine Besylate [Norvasc 10 mg Tablet] 10 mg PO DAILY 30 Days #30 tablet 01/31/19 Metoprolol Tartrate [Lopressor 50 mg Tablet] 50 mg PO Q12H #60 tablet 01/31/19 Promethazine HCl [Phenergan 25 mg Tablet] 25 mg PO Q6H PRN #20 tablet 03/23/19 Allergies/Adverse Reactions: No Known Allergies Allergy (Verified 01/31/19 14:29) Review of Systems Constitutional: ABSENT: chills, fever(s), headache(s), weight gain, weight loss Eyes: ABSENT: visual disturbances Ears: ABSENT: hearing changes Cardiovascular: PRESENT: chest pain Respiratory: PRESENT: dyspnea Gastrointestinal: PRESENT: abdominal pain, nausea, vomiting Genitourinary: ABSENT: dysuria, hematuria Musculoskeletal: ABSENT: joint swelling Integumentary: ABSENT: rash, wounds Neurological: ABSENT: abnormal gait, abnormal speech, confusion, dizziness, focal weakness, syncope Psychiatric: ABSENT: anxiety, depression, homidical ideation, suicidal ideation Endocrine: ABSENT: cold intolerance, heat intolerance, polydipsia, polyuria Hematologic/Lymphatic: ABSENT: easy bleeding, easy bruising Physical Exam Vital Signs: Temp Pulse Resp BP Pulse Ox 98.8 F 28 H 187/158 H 100 03/24/19 10:48 03/24/19 12:01 03/24/19 12:00 03/24/19 12:01 Intake & Output 03/23/19 03/24/19 03/25/19 06:59 06:59 06:59 Intake Total 1000 Balance 1000 Weight 86.183 kg General appearance: PRESENT: mild distress Head exam: PRESENT: atraumatic Eye exam: PRESENT: conjunctiva pink Neck exam: ABSENT: carotid bruit, JVD, lymphadenopathy, thyromegaly Respiratory exam: PRESENT: clear to auscultation juan ramon. ABSENT: rales, rhonchi, wheezes Cardiovascular exam: PRESENT: RRR. ABSENT: diastolic murmur, rubs, systolic murmur GI/Abdominal exam: PRESENT: normal bowel sounds, soft. ABSENT: distended, guarding, mass, organolmegaly, rebound, tenderness Neurological exam: PRESENT: alert, awake, oriented to person, oriented to place, oriented to time, oriented to situation Results Laboratory Results: 03/24/19 11:00 03/24/19 11:00 03/24/19 03/24/19 03/24/19 11:00 11:00 11:00 WBC 9.4 RBC 4.91 Hgb 13.4 L Hct 40.8 MCV 83 MCH 27.3 MCHC 32.9 RDW 14.5 H Plt Count 268 Seg Neutrophils % 91.3 H Lymphocytes % 6.2 L Monocytes % 1.8 L Eosinophils % 0.0 Basophils % 0.7 Absolute Neutrophils 8.6 H Absolute Lymphocytes 0.6 Absolute Monocytes 0.2 Absolute Eosinophils 0.0 Absolute Basophils 0.1 VBG pH 7.42 VBG pCO2 32.4 L VBG HCO3 20.4 VBG Base Excess -3.1 Sodium 133.9 L Potassium 4.7 Chloride 94 L Carbon Dioxide 19 L Anion Gap 21 H BUN 29 H Creatinine 2.05 H Est GFR ( Amer) 45 L Est GFR (Non-Af Amer) 37 L Glucose 638 H* Calcium 9.7 Total Bilirubin 0.9 AST 22 ALT 17 L Alkaline Phosphatase 122 Total Protein 7.7 Albumin 4.4 Lipase 49.9 Urine Color Urine Appearance Urine pH Ur Specific [place] Urine Protein Urine Glucose (UA) Urine Ketones Urine Blood Urine Nitrite Ur Leukocyte Esterase Urine WBC (Auto) Urine RBC (Auto) 03/24/19 11:30 WBC RBC Hgb Hct MCV MCH MCHC RDW Plt Count Seg Neutrophils % Lymphocytes % Monocytes % Eosinophils % Basophils % Absolute Neutrophils Absolute Lymphocytes Absolute Monocytes Absolute Eosinophils Absolute Basophils VBG pH VBG pCO2 VBG HCO3 VBG Base Excess Sodium Potassium Chloride Carbon Dioxide Anion Gap BUN Creatinine Est GFR ( Amer) Est GFR (Non-Af Amer) Glucose Calcium Total Bilirubin AST ALT Alkaline Phosphatase Total Protein Albumin Lipase Urine Color STRAW Urine Appearance CLEAR Urine pH 6.0 Ur Specific [place] 1.022 Urine Protein 100 H Urine Glucose (UA) >=1000 H Urine Ketones 100 H Urine Blood SMALL H Urine Nitrite NEGATIVE Ur Leukocyte Esterase NEGATIVE Urine WBC (Auto) 0 Urine RBC (Auto) 0 03/24/19 11:00 CK-MB (CK-2) 1.05 Troponin I < 0.012 Assessment and Plan - Diagnosis (1) DKA, type 1 Qualifiers: Diabetes mellitus complication detail: without coma Qualified Code(s): E10.10 - Type 1 diabetes mellitus with ketoacidosis without coma Is this a current diagnosis for this admission?: Yes Plan: Patient is going to be admitted to [facility]. Patient has been started on DKA protocol. We will reinforce diabetic education. (2) Hypertension Qualifiers: Hypertension type: essential hypertension Qualified Code(s): I10 - Essential (primary) hypertension Is this a current diagnosis for this admission?: Yes Plan: Continue home medication (3) Medical non-compliance Is this a current diagnosis for this admission?: Yes Plan: Patient will be counseled and encouraged to keep up his appointments and taking his medications appropriately and timely. - Inpatient Certification Medical Necessity: Need Close Monitoring Due to Risk of Patient Decompensation, Need For IV Fluids
[2019-03-24] MEDS ORDERED: GLUCAGON,HUMAN RECOMB 1 MG INJ IM PRN (14:21)
[2019-03-24] MEDS ORDERED: DEXTROSE 50%-WATER 25 GM/50 ML DISP.SYRIN IV PRN ×2 (14:21)
[2019-03-24] MEDS ORDERED: DEXTROSE 40% GEL 15 GM TUBE PO PRN ×2 (14:21)
[2019-03-24 14:38] LABS: URINE AMPHETAMINES SCREEN NEGATIVE; URINE BARBITURATES SCREEN NEGATIVE; URINE BENZODIAZEPINES SCREEN NEGATIVE; URINE COCAINE SCREEN NEGATIVE; URINE MARIJUANA (THC) SCREEN NEGATIVE; URINE METHADONE SCREEN NEGATIVE; URINE PHENCYCLIDINE SCREEN NEGATIVE
--- NOTE | 2019-03-24 15:02 | RADIOLOGY REPORT (SQ) ---
EXAM DESCRIPTION: CHEST SINGLE VIEW COMPLETED DATE/TIME: 03/24/2019 2:24 pm REASON FOR STUDY: Anterior chest pain, IDDM. COMPARISON: CT chest 04/17/2018 Chest films 04/25/2018, 07/19/2018, 10/01/2018, 01/31/2019 EXAM PARAMETERS: NUMBER OF VIEWS: One view. TECHNIQUE: Single frontal radiographic view of the chest acquired. RADIATION DOSE: NA LIMITATIONS: None. FINDINGS: LUNGS AND PLEURA: No opacities, masses or pneumothorax. No pleural effusion. MEDIASTINUM AND HILAR STRUCTURES: No masses. Contour normal. HEART AND VASCULAR STRUCTURES: Heart normal in size. Normal vasculature. BONES: No acute findings. HARDWARE: None in the chest. OTHER: No other significant finding. IMPRESSION: NO ACUTE RADIOGRAPHIC FINDING IN THE CHEST. TECHNICAL DOCUMENTATION: JOB ID: [id number] [employer]- All Rights Reserved Reading location - IP/workstation name: [email or web address]
[2019-03-24] MEDS: FONDAPARINUX SODIUM INJ 2.5 MG/0.5 ML DISP.SYRIN SUBCUT SCH (15:05)
[2019-03-24] MEDS ORDERED: INSULIN LISPRO 100 UNIT/ML 3 ML VIAL SUBCUT SCH (16:00)
[2019-03-24] MEDS ORDERED: INSULIN, REGULAR 100 UNIT/100 ML NORMAL SALINE IV PRN ×2 (16:30)
[2019-03-24] MEDS: DOCUSATE SODIUM 100 MG/10 ML UDC PO SCH (17:36)
[2019-03-24] MEDS: OXYCODONE-ACETAMINOPHEN 5-325 MG TABLET PO PRN ×2 (17:36→21:11)
[2019-03-24] MEDS ORDERED: HYDRALAZINE HCL INJ/PF 20 MG/1 ML SDV IV ONE (18:30)
[2019-03-24] MEDS ORDERED: HYDRALAZINE HCL 50 MG TABLET PO ONE (18:30)
[2019-03-24] MEDS ORDERED: METOPROLOL TARTRATE 100 MG TABLET PO ONE (18:30)
[2019-03-24] MEDS: FAMOTIDINE 20 MG TABLET PO SCH (21:52)
[2019-03-24] MEDS ORDERED: ACETAMINOPHEN 325 MG TABLET PO PRN (22:17)
[2019-03-25] MEDS ORDERED: MORPHINE SULFATE 10 MG/ML INJ IV PRN (00:03)
[2019-03-25] MEDS: MORPHINE SULFATE 10 MG/ML INJ IV PRN ×8 (00:26→21:43)
[2019-03-25] MEDS: PROMETHAZINE HCL INJ 25 MG/1 ML VIAL IV PRN ×5 (00:33→22:49)
[2019-03-25] MEDS ORDERED: INSULIN GLARGINE,HUM.REC.ANLOG 1,000 UNIT/10 ML VIAL (PYX) SUBCUT PRN (02:52)
[2019-03-25] MEDS ORDERED: INSULIN GLARGINE,HUM.REC.ANLOG 1,000 UNIT/10 ML VIAL SUBCUT ONE (03:00)
[2019-03-25] MEDS ORDERED: RINGERS SOLUTION,LACTATED 1,000 ML IV ONE (03:00)
[2019-03-25 08:21] LABS: HEMATOCRIT 38.1 % (37.9-51.0); HEMOGLOBIN 12.3 g/dL (13.5-17.0); MEAN CORPUSCULAR HEMOGLOBIN 26.6 pg (27.0-33.4); MEAN CORPUSCULAR HGB CONC 32.2 g/dL (32.0-36.0); MEAN CORPUSCULAR VOLUME 83 fl (80-97); PLATELET COUNT 281 10^3/uL (150-450); RED BLOOD COUNT 4.62 10^6/uL (4.35-5.55); RED CELL DISTRIBUTION WIDTH 14.7 % (11.5-14.0); WHITE BLOOD COUNT 17.5 10^3/uL (4.0-10.5)
[2019-03-25 08:28] LABS: ANION GAP 19 (5-19); BLOOD UREA NITROGEN 33 mg/dL (7-20); CALCIUM 9.3 mg/dL (8.4-10.2); CARBON DIOXIDE 20 mmol/L (22-30); CHLORIDE 101 mmol/L (98-107); GLUCOSE 369 mg/dL (75-110); POTASSIUM 4.6 mmol/L (3.6-5.0); SODIUM 140.2 mmol/L (137-145)
[2019-03-25] MEDS: FONDAPARINUX SODIUM INJ 2.5 MG/0.5 ML DISP.SYRIN SUBCUT SCH (08:34)
[2019-03-25 08:48] LABS: ABSOLUTE LYMPHOCYTES# (MANUAL) 0.9 10^3/uL (0.5-4.7); ABSOLUTE MONOCYTES # (MANUAL) 0.4 10^3/uL (0.1-1.4); BASOPHILS % (MANUAL) 0 % (0-2); EOSINOPHILS % (MANUAL) 0 % (0-6); LYMPHOCYTES % (MANUAL) 5 % (13-45); MONOCYTES % (MANUAL) 2 % (3-13); SEGMENTED NEUTROPHILS % (MAN) 93 % (42-78); TOTAL CELLS COUNTED 100
[2019-03-25 08:49] LABS: ANISOCYTOSIS SLIGHT; HYPOCHROMASIA SLIGHT; PLATELET COMMENT ADEQUATE; POLYCHROMASIA SLIGHT
[2019-03-25] MEDS: FAMOTIDINE 20 MG TABLET PO SCH ×2 (09:48→21:38)
[2019-03-25] MEDS: DOCUSATE SODIUM 100 MG/10 ML UDC PO SCH ×2 (10:02→18:11)
--- NOTE | 2019-03-25 10:17 | Progress Note Acknowledgement ---
Progress Note Acknowledgement Progess Note Acknowledgement: I, the undersigned member of the medical staff with appropriate privileges and with supervisory authority over Srinivasa Irvin, a [facility] practice allied health professional, acknowledge that I have reviewed the progress notes entered on this patient, and in my professional judgment believe that the assessment made and/or any care evidenced was appropriate
--- NOTE | 2019-03-25 10:17 | PDOC PROGRESS REPORT ---
Subjective Progress Note for:: 03/25/19 Subjective:: Patient sitting in chair with no signs of acute distress at this time. States he having headaches and muscular chest type pain secondary to his DKA. Patient is getting as needed morphine every 2 hours. No other complaints at this time. Reason For Visit: DKA Physical Exam Vital Signs: Temp Pulse Resp BP Pulse Ox 98.4 F 100 18 189/99 H 100 03/25/19 03:41 03/25/19 03:41 03/25/19 03:41 03/25/19 03:41 03/25/19 04:25 Intake & Output 03/24/19 03/25/19 03/26/19 06:59 06:59 06:59 Intake Total 2515 65 Output Total 325 Balance 2190 65 Weight 83.7 kg General appearance: PRESENT: no acute distress, well-developed, well-nourished Head exam: PRESENT: atraumatic, normocephalic Eye exam: PRESENT: conjunctiva pink, EOMI, PERRLA. ABSENT: scleral icterus Ear exam: PRESENT: normal external ear exam Mouth exam: PRESENT: moist, tongue midline Neck exam: ABSENT: carotid bruit, JVD, lymphadenopathy, thyromegaly Respiratory exam: PRESENT: clear to auscultation juan ramon. ABSENT: rales, rhonchi, wheezes Cardiovascular exam: PRESENT: RRR. ABSENT: diastolic murmur, rubs, systolic murmur Pulses: PRESENT: normal [place] pedis pul Vascular exam: PRESENT: normal capillary refill GI/Abdominal exam: PRESENT: normal bowel sounds, soft. ABSENT: distended, guarding, mass, organolmegaly, rebound, tenderness Rectal exam: PRESENT: deferred Extremities exam: PRESENT: full ROM. ABSENT: calf tenderness, clubbing, pedal edema Neurological exam: PRESENT: alert, awake, oriented to person, oriented to place, oriented to time, oriented to situation, CN II-XII grossly intact. ABSENT: motor sensory deficit Psychiatric exam: PRESENT: appropriate affect, normal mood. ABSENT: homicidal ideation, suicidal ideation Skin exam: PRESENT: dry, intact, warm. ABSENT: cyanosis, rash Results Laboratory Results: 03/25/19 07:29 03/25/19 07:29 03/24/19 03/24/19 03/24/19 11:00 11:00 11:00 WBC 9.4 RBC 4.91 Hgb 13.4 L Hct 40.8 MCV 83 MCH 27.3 MCHC 32.9 RDW 14.5 H Plt Count 268 Seg Neutrophils % 91.3 H Lymphocytes % 6.2 L Monocytes % 1.8 L Eosinophils % 0.0 Basophils % 0.7 Absolute Neutrophils 8.6 H Absolute Lymphocytes 0.6 Absolute Monocytes 0.2 Absolute Eosinophils 0.0 Absolute Basophils 0.1 VBG pH 7.42 VBG pCO2 32.4 L VBG HCO3 20.4 VBG Base Excess -3.1 Sodium 133.9 L Potassium 4.7 Chloride 94 L Carbon Dioxide 19 L Anion Gap 21 H BUN 29 H Creatinine 2.05 H Est GFR ( Amer) 45 L Est GFR (Non-Af Amer) 37 L Glucose 638 H* Calcium 9.7 Total Bilirubin 0.9 AST 22 ALT 17 L Alkaline Phosphatase 122 Total Protein 7.7 Albumin 4.4 Lipase 49.9 Urine Color Urine Appearance Urine pH Ur Specific [place] Urine Protein Urine Glucose (UA) Urine Ketones Urine Blood Urine Nitrite Ur Leukocyte Esterase Urine WBC (Auto) Urine RBC (Auto) 03/24/19 03/25/19 03/25/19 11:30 07:29 07:29 WBC 17.5 H RBC 4.62 Hgb 12.3 L Hct 38.1 MCV 83 MCH 26.6 L MCHC 32.2 RDW 14.7 H Plt Count 281 Seg Neutrophils % Not Reportable Lymphocytes % Not Reportable Monocytes % Not Reportable Eosinophils % Not Reportable Basophils % Not Reportable Absolute Neutrophils Not Reportable Absolute Lymphocytes Not Reportable Absolute Monocytes Not Reportable Absolute Eosinophils Not Reportable Absolute Basophils Not Reportable VBG pH VBG pCO2 VBG HCO3 VBG Base Excess Sodium 140.2 Potassium 4.6 Chloride 101 Carbon Dioxide 20 L Anion Gap 19 BUN 33 H Creatinine 1.92 H Est GFR ( Amer) 49 L Est GFR (Non-Af Amer) 40 L Glucose 369 H Calcium 9.3 Total Bilirubin AST ALT Alkaline Phosphatase Total Protein Albumin Lipase Urine Color STRAW Urine Appearance CLEAR Urine pH 6.0 Ur Specific [place] 1.022 Urine Protein 100 H Urine Glucose (UA) >=1000 H Urine Ketones 100 H Urine Blood SMALL H Urine Nitrite NEGATIVE Ur Leukocyte Esterase NEGATIVE Urine WBC (Auto) 0 Urine RBC (Auto) 0 03/24/19 11:00 CK-MB (CK-2) 1.05 Troponin I < 0.012 Impressions: Chest X-Ray 03/24/19 13:40 IMPRESSION: NO ACUTE RADIOGRAPHIC FINDING IN THE CHEST. Assessment and Plan - Diagnosis (1) DKA (diabetic ketoacidoses) Qualifiers: Is this a current diagnosis for this admission?: Yes Plan: 03/25/2019-patient is improved his gap is closed. Patient remains on normal saline 125 mL/h secondary to dehydration and acute renal failure secondary to his DKA. I have placed patient on sliding scale insulin with Humalog before meals and at bedtime as well as his long-acting insulin. I will repeat BMP in the a.m. I will continue to hydrate. (2) Acute kidney injury Is this a current diagnosis for this admission?: Yes Plan: 03/25/2019-most likely secondary to acute dehydration from his diabetic ketoacidosis. Will hydrate patient with normal saline 125 mL/h overnight we will repeat BMP in the a.m. (3) Leukocytosis Qualifiers: Leukocytosis type: unspecified Qualified Code(s): D72.829 - Elevated white blood cell count, unspecified Is this a current diagnosis for this admission?: Yes Plan: 03/25/2019-most likely reactive in nature secondary to his diabetic acidosis. We will repeat CBC in the a.m. (4) Hypertension Qualifiers: Hypertension type: essential hypertension Qualified Code(s): I10 - Essential (primary) hypertension Is this a current diagnosis for this admission?: Yes Plan: Continue home medication 03/25/2019-restarted atenolol 50 mg p.o. daily and Norvasc 10 mg p.o. daily at this time. Will follow and adjust dosing as needed. - Time Time Spent with patient: 15-24 minutes - Inpatient Certification Medical Necessity: Other - Patient continues with acute kidney injury secondary to diabetic ketoacidosis requires IV fluids. Patient also hypertensive and requires titration of hypertensive medications.
[2019-03-25] MEDS: HYDRALAZINE HCL INJ/PF 20 MG/1 ML SDV IV PRN ×2 (10:40→23:46)
[2019-03-25] MEDS: ATENOLOL 50 MG TABLET PO SCH (12:04)
[2019-03-25] MEDS: AMLODIPINE BESYLATE 10 MG TABLET PO SCH (12:04)
[2019-03-25] MEDS: INSULIN LISPRO 100 UNIT/ML 3 ML VIAL SUBCUT SCH ×3 (12:06→21:39)
[2019-03-25] MEDS: NORMAL SALINE 1000 ML 1,000 ML IV PRN (18:06)
[2019-03-26] MEDS: MORPHINE SULFATE 10 MG/ML INJ IV PRN ×5 (02:10→20:54)
[2019-03-26 07:43] LABS: HEMATOCRIT 36.8 % (37.9-51.0); MEAN CORPUSCULAR HEMOGLOBIN 26.9 pg (27.0-33.4); MEAN CORPUSCULAR HGB CONC 32.6 g/dL (32.0-36.0); MEAN CORPUSCULAR VOLUME 82 fl (80-97); PLATELET COUNT 230 10^3/uL (150-450); RED BLOOD COUNT 4.48 10^6/uL (4.35-5.55); RED CELL DISTRIBUTION WIDTH 14.6 % (11.5-14.0); WHITE BLOOD COUNT 16.5 10^3/uL (4.0-10.5)
[2019-03-26] MEDS: FONDAPARINUX SODIUM INJ 2.5 MG/0.5 ML DISP.SYRIN SUBCUT SCH (07:51)
[2019-03-26] MEDS: INSULIN LISPRO 100 UNIT/ML 3 ML VIAL SUBCUT SCH ×4 (07:51→21:34)
[2019-03-26 08:04] LABS: ANION GAP 9 (5-19); BLOOD UREA NITROGEN 17 mg/dL (7-20); CALCIUM 8.4 mg/dL (8.4-10.2); CARBON DIOXIDE 26 mmol/L (22-30); CHLORIDE 101 mmol/L (98-107); GLUCOSE 214 mg/dL (75-110); SODIUM 136.4 mmol/L (137-145)
[2019-03-26] MEDS: FAMOTIDINE 20 MG TABLET PO SCH ×2 (10:47→21:34)
[2019-03-26] MEDS: ATENOLOL 50 MG TABLET PO SCH (10:47)
[2019-03-26] MEDS: DOCUSATE SODIUM 100 MG/10 ML UDC PO SCH (10:47)
[2019-03-26] MEDS: AMLODIPINE BESYLATE 10 MG TABLET PO SCH (10:47)
[2019-03-26] MEDS: NORMAL SALINE 1000 ML 1,000 ML IV PRN (10:50)
[2019-03-26] MEDS: DOCUSATE SODIUM 100 MG CAPSULE PO SCH (17:05)
[2019-03-27] MEDS: MORPHINE SULFATE 10 MG/ML INJ IV PRN ×3 (02:06→16:45)
[2019-03-27] MEDS: FONDAPARINUX SODIUM INJ 2.5 MG/0.5 ML DISP.SYRIN SUBCUT SCH (08:20)
[2019-03-27] MEDS: INSULIN LISPRO 100 UNIT/ML 3 ML VIAL SUBCUT SCH ×3 (08:23→17:42)
[2019-03-27] MEDS: FAMOTIDINE 20 MG TABLET PO SCH (10:43)
[2019-03-27] MEDS: ATENOLOL 50 MG TABLET PO SCH (10:43)
[2019-03-27] MEDS: NORMAL SALINE 1000 ML 1,000 ML IV PRN (10:43)
[2019-03-27] MEDS: DOCUSATE SODIUM 100 MG CAPSULE PO SCH ×2 (10:43→17:43)
[2019-03-27] MEDS: AMLODIPINE BESYLATE 10 MG TABLET PO SCH (10:43)
[2019-03-27 18:05] VITALS: BP 138/90
--- NOTE | 2019-03-27 21:37 | PDOC DISCHARGE SUMMARY ---
General - Admit/Disc Date/PCP Admission Date/Primary Care Provider: 03/24/19 14:00 JARON ANN MD Discharge Date: 03/27/19 - Discharge Diagnosis (1) Diabetic ketoacidosis associated with type 1 diabetes mellitus Is this a current diagnosis for this admission?: Yes (2) Non compliance with medical treatment Is this a current diagnosis for this admission?: Yes - Additional Information Resuscitation Status: Full Code Prescriptions: Insulin Glargine,Hum.rec.anlog [Lantus (Pyxis) Insulin 100 Unit/1 ml 10 ml] 35 units SQ DAILY #2 unit Insulin Lispro [Humalog Insulin (Lispro) 100 unit/mL] 0 units SQ .SLD SCALE #2 unit Home Medications: Chlorpromazine HCl [Thorazine 50 mg Tablet] 50 mg PO BID 10/01/18 Mirtazapine [Remeron] 45 mg PO DAILY 10/01/18 Quetiapine Fumarate [Seroquel] 800 mg PO QHS #30 tablet 10/06/18 Sucralfate [Carafate 1 gm Tablet] 1 gm PO Q6 #120 tablet 10/06/18 Trazodone HCl [Desyrel 50 mg Tablet] 50 mg PO QHS #90 tablet 10/06/18 Omeprazole 40 mg PO BID 11/04/18 Amlodipine Besylate [Norvasc 10 mg Tablet] 10 mg PO DAILY 30 Days #30 tablet 0 01/31/19 Metoprolol Tartrate [Lopressor 50 mg Tablet] 50 mg PO Q12 03/24/19 Promethazine HCl [Phenergan 25 mg Tablet] 25 mg PO Q6H PRN 03/24/19 Ranitidine HCl [Zantac 150 mg Tablet] 150 mg PO BIDP PRN 03/24/19 Insulin Glargine,Hum.rec.anlog [Lantus (Pyxis) Insulin 100 Unit/1 ml 10 ml] 35 units SQ DAILY #2 unit 03/27/19 Insulin Lispro [Humalog Insulin (Lispro) 100 unit/mL] 0 units SQ .SLD SCALE #2 unit 03/27/19 History of Present Illness History of Present Illness: LENA SCHULZ is a 33 year old male,Patient was admitted when she presented with diabetic ketoacidosis associated with abdominal pain and vomiting. He apparently ran out of the long-acting insulin Lantus. Patient has shown consistent pattern of nonadherence to medical management and regimen Hospital Course Hospital Course: He was initially admitted by the hospitalist, he was treated for DKA per protocol,Patient is noncompliant with medical regimen, he wants to go home today Physical Exam Vital Signs: Temp Pulse Resp BP Pulse Ox 98.8 F 75 17 138/90 H 97 03/27/19 18:43 03/27/19 18:43 03/27/19 18:43 03/27/19 15:26 03/27/19 18:43 Intake & Output 03/26/19 03/27/19 03/28/19 06:59 06:59 06:59 Intake Total 3114 1645 480 Output Total 2850 3150 1800 Balance 264 -1505 -1320 Weight 86.2 kg 87.2 kg General appearance: PRESENT: no acute distress, well-developed, well-nourished Head exam: PRESENT: atraumatic, normocephalic Eye exam: PRESENT: conjunctiva pink, EOMI, PERRLA Ear exam: PRESENT: normal external ear exam Mouth exam: PRESENT: moist, tongue midline Neck exam: PRESENT: full ROM Respiratory exam: PRESENT: clear to auscultation juan ramon Cardiovascular exam: PRESENT: RRR, +S1, +S2 Pulses: PRESENT: normal dorsalis pedis pul, +2 pedal pulses bilateral Vascular exam: PRESENT: normal capillary refill GI/Abdominal exam: PRESENT: normal bowel sounds, soft Rectal exam: PRESENT: deferred Neurological exam: PRESENT: alert, awake, oriented to person, oriented to place, oriented to time, oriented to situation, CN II-XII grossly intact Psychiatric exam: PRESENT: appropriate affect, normal mood Skin exam: PRESENT: dry, intact, warm Results Laboratory Results: 03/26/19 07:21 03/26/19 07:21 03/24/19 11:00 CK-MB (CK-2) 1.05 Troponin I < 0.012 Impressions: Chest X-Ray 03/24/19 13:40 IMPRESSION: NO ACUTE RADIOGRAPHIC FINDING IN THE CHEST. Qualifiers - * PATIENT BEING DISCHARGED WITH ANY OF THE FOLLOWING DIAGNOSIS: No VTE patient discharged on overlapping Therapy?: No Reason(s) for not prescribing Overlap Therapy:: Not indicated Stroke Pt being discharged on Anti-thrombolytic therapy?: No Reason(s) for not prescribing Anti-thrombolytic therapy:: Not indicated Stroke Pt being discharged on Anti-coagulation therapy?: No Reason(s) for not prescribing Anti-coagulation therapy:: Not indicated Stroke Pt being discharged on Statins?: No Reason(s) for not prescribing Statins therapy:: Not indicated ND Pt being discharged on Aspirin therapy?: No Reason(s) for not prescribing Aspirin therapy:: Not indicated ND Pt being discharged on Statins?: No Reason(s) for not prescribing Statin therapy:: Not indicated ND Pt discharged ACEI/ARBS?: No Reason(s) for not prescribing ACEI/ARBS:: Not indicated Acute Heart Failure - Is this a Heart Failure Patient?: No e) For LVEF <35%, discharged on Aldosterone antagonist?: N/A (LVEF > or = 35%)
== END 2019-03-27 19:10 | disposition home or self-care (01) | DRG 638 ==
LOC: ER 10:43 → EH 14:00 → 3N 20:44
PROVIDERS: ADMIT Internal Medicine; ATTEND Internal Medicine
DX: E10.10 Type 1 diabetes mellitus with ketoacidosis without coma (principal); N17.9 Acute kidney failure, unspecified; I10 Essential (primary) hypertension; F17.210 Nicotine dependence, cigarettes, uncomplicated; F31.9 Bipolar disorder, unspecified; E86.0 Dehydration; I25.2 Old myocardial infarction; Z91.14 Patient's other noncompliance with medication regimen; Z79.4 Long term (current) use of insulin; Z79.899 Other long term (current) drug therapy
CPT/HCPCS: 36415; 71045; 80048; 80053; 80307; 81001; 82553; 82803; 82962; 83036; 83690; 84484; 85025; 85027; 93005; 93010; 96361; 96374; 96375; 99285; J0360; J1170; J1200; J1652; J1815; J2270; J2405; J2550; J2765; J3490; J7030; J7050; J7120

== ENCOUNTER 2019-05-03 01:56 | Emergency (ER) | payer MEDICAID ==
[2019-05-03] MEDS ORDERED: LIDOCAINE 2% VISCOUS SOLN 20 ML UDCUP PO ONE (02:36)
[2019-05-03] MEDS ORDERED: MAG HYDROX/AL HYDROX/SIMETH SUSP 30 ML UDCUP PO ONE (02:36)
[2019-05-03] MEDS ORDERED: NORMAL SALINE 1000 ML 1,000 ML IV ONE (02:37)
--- NOTE | 2019-05-03 02:39 | ER Document Report ---
ED GI/ - General Chief Complaint: Nausea/Vomiting Stated Complaint: VOMITING Time Seen by Provider: 05/03/19 02:27 Primary Care Provider: JARON ANN MD [Primary Care Provider] - Follow up as needed Mode of Arrival: Ambulatory Information source: Patient Notes: This 33-year-old insulin-dependent diabetic patient comes emergency room complaining of nausea vomiting for the past 2 days. He reports she is having epigastric abdominal pain going up into the chest. He states he feels weak. He was last admitted here for DKA about 1 month ago. He is chronically noncompliant with his medications. TRAVEL OUTSIDE OF THE [place] IN LAST 30 DAYS: No - Related Data Allergies/Adverse Reactions: No Known Allergies Allergy (Verified 05/03/19 03:20) Past Medical History - General Information source: Patient, [facility] Records - Social History Smoking Status: Current Every Day Smoker Cigarette use (# per day): Yes Chew tobacco use (# tins/day): No Smoking Education Provided: No Frequency of alcohol use: None Drug Abuse: None Occupation: Unemployed Lives with: Spouse/Significant other Family History: Reviewed & Not Pertinent, DM, Hypertension - Past Medical History Cardiac Medical History: Reports: Hx Heart Attack - May 2017., Hx Hypertension Pulmonary Medical History: Reports: Hx Asthma - as child Neurological Medical History: Reports: Hx Migraine Endocrine Medical History: Reports: Hx Diabetes Mellitus Type 1 Psychiatric Medical History: Reports: Hx Anxiety, Hx Bipolar Disorder, Hx Depression, Hx Schizophrenia Past Surgical History: Reports: Hx Appendectomy, Hx Oral Surgery - wisdom teeth, Other - [place] teeth extraction - Immunizations Hx Diphtheria, Pertussis, Tetanus Vaccination: Yes Hx Pneumococcal Vaccination: 09/16/00 Review of Systems - Review of Systems Constitutional: See HPI, Weakness EENT: No symptoms reported Cardiovascular: See HPI, Chest pain Respiratory: No symptoms reported Gastrointestinal: Abdominal pain, Nausea, Vomiting. denies: Diarrhea Genitourinary: No symptoms reported Musculoskeletal: No symptoms reported Skin: No symptoms reported Hematologic/Lymphatic: No symptoms reported Neurological/Psychological: No symptoms reported Physical Exam - Vital signs Vitals: Temp Pulse Resp BP Pulse Ox 98.1 F 120 H 16 159/105 H 95 05/03/19 02:03 05/03/19 02:03 05/03/19 02:03 05/03/19 02:03 05/03/19 02:03 Interpretation: Hypertensive, Tachycardic - General General appearance: Appears well, Alert In distress: None - HEENT Head: Normocephalic, Atraumatic Eyes: Normal Pupils: PERRL - Respiratory Respiratory status: No respiratory distress Breath sounds: Normal Chest palpation: Normal - Cardiovascular Rhythm: Regular, Tachycardia Heart sounds: Normal auscultation Murmur: No - Abdominal Inspection: Normal Bowel sounds: Normal Tenderness: Tender - Tender to palpate the epigastrium. - Back Back: Normal - Extremities General upper extremity: Normal inspection General lower extremity: Normal inspection - Neurological Neuro grossly intact: Yes - Psychological Associated symptoms: Normal affect, Normal mood - Skin Skin Temperature: Warm Skin Moisture: Dry Skin Color: Normal Course - Re-evaluation Re-evalutation: 05/03/19 04:50 The patient seems to be much improved with his nauseousness. He states that the GI cocktail did not help his abdomen or chest pain at all. - Vital Signs Vital signs: Temp Pulse Resp BP Pulse Ox 98.4 F 90 18 168/101 H 98 05/03/19 04:48 05/03/19 04:48 05/03/19 04:48 05/03/19 04:48 05/03/19 04:48 - Laboratory Result Diagrams: 05/03/19 03:25 05/03/19 03:25 Laboratory results interpreted by me: 05/03/19 05/03/19 05/03/19 03:00 03:25 03:25 Hgb 13.4 L RDW 14.4 H Potassium 3.3 L Creatinine 1.79 H Est GFR ( Amer) 53 L Est GFR (Non-Af Amer) 44 L Glucose 129 H Creatine Kinase Urine Protein >=500 H Urine Glucose (UA) >=500 H Urine Ketones TRACE H Urine Blood SMALL H 05/03/19 03:25 Hgb RDW Potassium Creatinine Est GFR ( Amer) Est GFR (Non-Af Amer) Glucose Creatine Kinase 248 H Urine Protein Urine Glucose (UA) Urine Ketones Urine Blood - EKG Interpretation by Al EKG shows normal: Sinus rhythm, Ava, Intervals, QRS Complexes. abnormal: ST-T Waves - Diffuse nonspecific T wave abnormalities Rate: Normal - 88 Rhythm: NSR When compared to previous EKG there are: No significant change Discharge - Discharge Clinical Impression: Hypokalemia, Renal insufficiency, High blood pressure associated with diabetes Nausea and vomiting Qualifiers: Vomiting type: unspecified Vomiting Intractability: non-intractable Qualified Code(s): R11.2 - Nausea with vomiting, unspecified Type 1 diabetes mellitus Qualifiers: Diabetes mellitus complication status: with other specified complication Qualified Code(s): E10.69 - Type 1 diabetes mellitus with other specified complication Condition: Stable Disposition: HOME, SELF-CARE Additional Instructions: Hypokalemia You have an abnormally decreased level of serum potassium. Hypokalemia may cause weakness, fatigue, or heart rhythm abnormalities. Sometimes there are no symptoms at all. Usually, low serum potassium is due to taking diuretics (water pills). It can also be due to excessive vomiting or diarrhea. If no obvious cause is evident, further evaluation will be necessary. Treatment is usually oral potassium supplements. Take these exactly as prescribed. You may also want to select foods which are naturally high in potassium -- fruits (such as bananas, cantaloupe, grapes, oranges, prunes, tomatoes), fresh vegetables (potatoes, spinach, beans, peas), orange or tomato juice, tomato pasta sauce, milk, fish (halibut, tuna, salmon, delia) A follow-up blood test is usually performed to assure that the potassium is returning to normal. Call the physician if you suffer severe weakness, muscle twitching or cramping, palpitations (pounding or irregular heartbeat), or any other new or alarming symptoms. Nausea or Vomiting, Nonspecific Vomiting (or nausea without vomiting) can be caused by many different problems. Of course, it can mean that something's wrong with the stomach, such as "stomach flu," ulcers, or inflammation. But it can also be a symptom of a problem that has nothing to do with the stomach or intestines. Vomiting is com mon with severe headaches, earaches, and tonsillitis. We see it with pneumonia or heart attacks. Drugs can cause nausea. Many abdominal problems cause vomiting; for example, gallstones, kidney stones, pancreatitis, and intestinal obstruction (blocked bowels). In most cases, curing the vomiting depends on fixing the problem that caused it. For temporary relief, we may use an anti-nausea medicine. For home use, we can prescribe suppositories, chewable pills, pills that dissolve in the mouth, or liquid anti-nausea drugs. If the vomiting seems to be caused by a problem in the stomach, acid-suppressing drugs may be prescribed as well. It's important to avoid dehydration. Sip clear liquids. Take increasing amounts of fluid over the first 24 hours. Then start small amounts of bland food s (such as dry toast, applesauce, mashed potato). Avoid aspirin, tobacco, and alcohol. Gradually resume your usual diet. If the vomiting worsens, if the problem that's making you vomit worsens, or if there's evidence of bleeding in the stomach (such as black, tarry stool, bloody or black vomit, or lightheadedness), you should return immediately. Call your doctor if you aren't improved in 24 to 36 hours. Reflux Disease (GERD) Gastro-Esophageal Reflux Disease (GERD) is caused by stomach acid refluxing back up into the esophagus. The valve at the end of the esophagus may be weak. This is common in persons with a hiatal hernia. GERD symptoms can include indigestion, chest pain, heartburn, or food "sticking." Certain foods, alcohol, and aspirin can make GERD worse. Treatment depends on the severity. Usually, antacids or acid-suppressing medicines are used. When the esophagus is acutely inflamed, the physician will often prescribe membrane-protective drugs such as Carafate. Some patients benefit from medication such as Reglan that tightens the valve at the top of the stomach. Avoid those foods that bring on your symptoms. For many people, these foods are coffee, chocolate, onions, garlic, and carbonated drinks. Don't use alcohol, aspirin, caffeine, or tobacco. Don't eat late at night -- within 4 hours of bedtime. Don't over-eat. If necessary, elevate the head of your bed about 4 inches so that stomach acid will not roll up into your esophagus. Call the doctor if you develop severe chest pain, inability to swallow fluids, fever, or worsening symptoms. Take medication as prescribed for nausea if needed. Drink plenty of cool clear liquids. Take omeprazole once daily to help reduce acid production in your stomach. Take antacids between meals and at bedtime to neutralize acid in your stomach. Increase potassium in your diet for the next few days. Eating bananas is a good way to get extra potassium in your system. Be sure to take all of your regular medications as they were prescribed. Follow-up with your primary care provider this week if not improving. RETURN TO THE EMERGENCY ROOM IF ANY NEW OR WORSENING SYMPTOMS. Prescriptions: Omeprazole 20 mg PO DAILY #30 capsule. Ondansetron [Zofran Odt 4 mg Tablet] 4 mg PO Q4 PRN #15 tab.rapdis PRN Reason: For Nausea/Vomiting Referrals: JARON ANN MD [Primary Care Provider] - Follow up in 3-5 days
[2019-05-03 03:22] LABS: APPEARANCE,URINE SLIGHTLY-CLOUDY; BILIRUBIN,URINE NEGATIVE (NEGATIVE); COLOR,URINE YELLOW; GLUCOSE, URINE >=500 mg/dL (NEGATIVE); KETONES,URINE TRACE mg/dL (NEGATIVE); LEUKOCYTE ESTERASE,URINE NEGATIVE (NEGATIVE); NITRITE,URINE NEGATIVE (NEGATIVE); PROTEIN,URINE >=500 mg/dL (NEGATIVE); URINE SPECIFIC GRAVITY 1.022; UROBILINOGEN,URINE NEGATIVE mg/dL (<2.0)
[2019-05-03 03:38] LABS: URINE AMPHETAMINES SCREEN NEGATIVE; URINE BARBITURATES SCREEN NEGATIVE; URINE BENZODIAZEPINES SCREEN NEGATIVE; URINE COCAINE SCREEN NEGATIVE; URINE MARIJUANA (THC) SCREEN NEGATIVE; URINE METHADONE SCREEN NEGATIVE; URINE PHENCYCLIDINE SCREEN NEGATIVE
[2019-05-03 03:53] LABS: ABSOLUTE BASOPHILS # (AUTO) 0.1 10^3/uL (0.0-0.2); ABSOLUTE EOSINOPHILS # (AUTO) 0.1 10^3/uL (0.0-0.6); ABSOLUTE LYMPHOCYTES (AUTO) 1.7 10^3/uL (0.5-4.7); ABSOLUTE MONOCYTES (AUTO) 0.6 10^3/uL (0.1-1.4); ABSOLUTE NEUT (AUTO) 6.2 10^3/uL (1.7-8.2); BASOPHILS % (AUTO) 0.9 % (0-2); EOSINOPHILS % (AUTO) 0.8 % (0-6); HEMATOCRIT 39.7 % (37.9-51.0); HEMOGLOBIN 13.4 g/dL (13.5-17.0); LYMPHOCYTES % (AUTO) 19.7 % (13-45); MEAN CORPUSCULAR HEMOGLOBIN 27.6 pg (27.0-33.4); MEAN CORPUSCULAR HGB CONC 33.7 g/dL (32.0-36.0); MEAN CORPUSCULAR VOLUME 82 fl (80-97); MONOCYTES % (AUTO) 7.4 % (3-13); PLATELET COUNT 292 10^3/uL (150-450); RED BLOOD COUNT 4.84 10^6/uL (4.35-5.55); RED CELL DISTRIBUTION WIDTH 14.4 % (11.5-14.0); SEGMENTED NEUTROPHILS % (AUTO) 71.2 % (42-78); TOTAL CELLS COUNTED % (AUTO) 100 %; WHITE BLOOD COUNT 8.7 10^3/uL (4.0-10.5)
[2019-05-03 03:58] LABS: ALBUMIN 4.2 g/dL (3.5-5.0); ALKALINE PHOSPHATASE 92 U/L (38-126); ANION GAP 12 (5-19); ASPARTATE AMINO TRANSFERASE 21 U/L (17-59); BILIRUBIN,DIRECT 0.3 mg/dL (0.0-0.4); BILIRUBIN,TOTAL 0.5 mg/dL (0.2-1.3); BLOOD UREA NITROGEN 17 mg/dL (7-20); CALCIUM 9.2 mg/dL (8.4-10.2); CARBON DIOXIDE 29 mmol/L (22-30); CHLORIDE 99 mmol/L (98-107); GLUCOSE 129 mg/dL (75-110); POTASSIUM 3.3 mmol/L (3.6-5.0)
[2019-05-03] MEDS ORDERED: POTASSIUM CHLORIDE 20 MEQ PACKET PO ONE (04:06)
[2019-05-03] MEDS ORDERED: ONDANSETRON HCL INJ/PF 4 MG/2 ML SDV IV ONE (04:06)
[2019-05-03] MEDS ORDERED: RINGERS SOLUTION,LACTATED 1,000 ML IV ONE (04:07)
[2019-05-03 04:13] LABS: VENOUS BLOOD BASE EXCESS 5.2 mmol/L; VENOUS BLOOD HCO3 31.6 mmol/L (20-32); VENOUS BLOOD PCO2 54.2 mmHg (35-63); VENOUS BLOOD PH 7.38 (7.30-7.42)
[2019-05-03 04:59] LABS: CREATINE KINASE 248 U/L (55-170)
[2019-05-03 05:12] LABS: CREATINE KINASE MB 1.39 ng/mL (<4.55); TROPONIN I 0.031 ng/mL
[2019-05-03] MEDS ORDERED: ONDANSETRON ODT 4 MG TAB (6 TAB/ER DISP) PO PRN (05:47)
[2019-05-03 06:40] VITALS: BP 186/112
--- NOTE | 2019-05-03 11:42 | EKG REPORT ---
SEVERITY:- ABNORMAL ECG - SINUS RHYTHM NONSPECIFIC T ABNORMALITIES, DIFFUSE LEADS : Confirmed by: Zakiya Francis 03-May-2019 11:40:58
== END 2019-05-03 06:41 | disposition home or self-care (01) ==
LOC: ER 01:56
DX: E87.6 Hypokalemia (principal); N28.9 Disorder of kidney and ureter, unspecified; R11.2 Nausea with vomiting, unspecified; R53.1 Weakness; Z91.14 Patient's other noncompliance with medication regimen; E10.9 Type 1 diabetes mellitus without complications; E10.69 Type 1 diabetes mellitus with other specified complication; Z79.4 Long term (current) use of insulin; F17.210 Nicotine dependence, cigarettes, uncomplicated; I25.2 Old myocardial infarction; I10 Essential (primary) hypertension; J45.909 Unspecified asthma, uncomplicated
CPT/HCPCS: 93005; 99283; 96361; 96374; 36415; 82553; 82550; 83690; 83735; 85025; 80053; 81001; 84484; 80307; 82803; 93010; J3490 ×3; J2405; J7030; J7120

== ENCOUNTER 2019-05-24 13:03 | Emergency (ER) | payer MEDICAID ==
--- NOTE | 2019-05-24 13:33 | ER Document Report ---
ED Medical Screen (RME) - General Chief Complaint: Chest Pain Stated Complaint: CHEST PAIN Time Seen by Provider: 05/24/19 13:30 Primary Care Provider: JARON ANN MD [Primary Care Provider] - Follow up as needed Mode of Arrival: Wheelchair Information source: Patient Notes: 29-year-old male presented to ED for complaint of chest pain nausea and vomiting. He states he is a diabetic and he feel like he is in DKA sugar this morning he states his sugar this morning was 300 something did not take insulin as he ran out. States EMS took his sugar and it was 331. I have greeted and performed a rapid initial assessment of this patient. A comprehensive ED assessment and evaluation of the patient, analysis of test results and completion of medical decision making process will be conducted by an additional ED providers. TRAVEL OUTSIDE OF THE [place] IN LAST 30 DAYS: No - Related Data Allergies/Adverse Reactions: No Known Allergies Allergy (Verified 05/24/19 13:04) Past Medical History - Social History Family history: Reviewed & Not Pertinent - Past Medical History Cardiac Medical History: Reports: Hx Heart Attack - May 2017., Hx Hypertension Denies: Hx Congestive Heart Failure, Hx DVT, Hx Hypercholesterolemia, Hx Pulmonary Embolism Pulmonary Medical History: Reports: Hx Asthma - as child Denies: Hx COPD, Hx Sleep Apnea Neurological Medical History: Reports: Hx Migraine. Denies: Hx Seizures Endocrine Medical History: Reports: Hx Diabetes Mellitus Type 1. Denies: Hx Diabetes Mellitus Type 2, Hx Hyperthyroidism, Hx Hypothyroidism Renal/ Medical History: Denies: Hx Peritoneal Dialysis GI Medical History: Denies: Hx Cirrhosis, Hx Gastroesophageal Reflux Disease, Hx Hepatitis Musculoskeltal Medical History: Denies Hx Arthritis Psychiatric Medical History: Reports: Hx Anxiety, Hx Bipolar Disorder, Hx Depression, Hx Schizophrenia Infectious Medical History: Denies: Hx C-Diff, Hx Hepatitis, Hx MRSA Past Surgical History: Reports: Hx Appendectomy, Hx Oral Surgery - wisdom teeth, Other - [place] teeth extraction - Immunizations Hx Diphtheria, Pertussis, Tetanus Vaccination: Yes History of Influenza Vaccine for 06/2017 - 11/2017 Season: Refused Physical Exam - Vital signs Vitals: Temp Pulse Resp BP Pulse Ox 98.1 F 127 H 18 100/54 L 97 05/24/19 13:10 05/24/19 13:10 05/24/19 13:10 05/24/19 13:10 05/24/19 13:10 Course - Vital Signs Vital signs: Temp Pulse Resp BP Pulse Ox 98.1 F 127 H 18 100/54 L 97 05/24/19 13:10 05/24/19 13:10 05/24/19 13:10 05/24/19 13:10 05/24/19 13:10 Doctor's Discharge - Discharge Referrals: JARON ANN MD [Primary Care Provider] - Follow up as needed
[2019-05-24] MEDS: NORMAL SALINE 1000 ML 1,000 ML IV PRN ×2 (13:57→16:32)
[2019-05-24 14:15] LABS: ABSOLUTE BASOPHILS # (AUTO) 0.1 10^3/uL (0.0-0.2); ABSOLUTE LYMPHOCYTES (AUTO) 0.8 10^3/uL (0.5-4.7); ABSOLUTE MONOCYTES (AUTO) 0.3 10^3/uL (0.1-1.4); ABSOLUTE NEUT (AUTO) 7.3 10^3/uL (1.7-8.2); BASOPHILS % (AUTO) 1.2 % (0-2); EOSINOPHILS % (AUTO) 0.1 % (0-6); HEMATOCRIT 47.3 % (37.9-51.0); HEMOGLOBIN 15.7 g/dL (13.5-17.0); LYMPHOCYTES % (AUTO) 9.6 % (13-45); MEAN CORPUSCULAR HEMOGLOBIN 27.2 pg (27.0-33.4); MEAN CORPUSCULAR HGB CONC 33.3 g/dL (32.0-36.0); MEAN CORPUSCULAR VOLUME 82 fl (80-97); PLATELET COUNT 354 10^3/uL (150-450); RED BLOOD COUNT 5.79 10^6/uL (4.35-5.55); SEGMENTED NEUTROPHILS % (AUTO) 85.1 % (42-78); TOTAL CELLS COUNTED % (AUTO) 100 %; WHITE BLOOD COUNT 8.6 10^3/uL (4.0-10.5)
[2019-05-24] MEDS ORDERED: ONDANSETRON HCL INJ/PF 4 MG/2 ML SDV IV ONE ×2 (14:33→16:50)
[2019-05-24] MEDS ORDERED: MORPHINE SULFATE 10 MG/ML INJ IV ONE ×2 (14:33→16:49)
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
[2019-05-24 16:27] LABS: ALBUMIN 4.5 g/dL (3.5-5.0); ALKALINE PHOSPHATASE 103 U/L (38-126); ANION GAP 16 (5-19); ASPARTATE AMINO TRANSFERASE 17 U/L (17-59); BILIRUBIN,DIRECT 0.4 mg/dL (0.0-0.4); BLOOD UREA NITROGEN 24 mg/dL (7-20); CARBON DIOXIDE 31 mmol/L (22-30); CHLORIDE 89 mmol/L (98-107); CREATINE KINASE 70 U/L (55-170); GLUCOSE 368 mg/dL (75-110); POTASSIUM 5.1 mmol/L (3.6-5.0); TOTAL PROTEIN 7.6 g/dL (6.3-8.2)
[2019-05-24 16:41] LABS: CREATINE KINASE MB 0.25 ng/mL (<4.55)
[2019-05-24 16:46] LABS: TROPONIN I < 0.012 ng/mL
[2019-05-24] MEDS ORDERED: DICYCLOMINE HCL INJ 20 MG/2 ML AMPULE IM ONE (16:50)
[2019-05-24 16:55] LABS: VENOUS BLOOD BASE EXCESS 0.6 mmol/L; VENOUS BLOOD HCO3 27.7 mmol/L (20-32); VENOUS BLOOD PCO2 54.9 mmHg (35-63); VENOUS BLOOD PH 7.32 (7.30-7.42)
[2019-05-24 17:21] LABS: APPEARANCE,URINE CLEAR; BILIRUBIN,URINE NEGATIVE (NEGATIVE); COLOR,URINE YELLOW; GLUCOSE, URINE >=500 mg/dL (NEGATIVE); KETONES,URINE 80 mg/dL (NEGATIVE); LEUKOCYTE ESTERASE,URINE NEGATIVE (NEGATIVE); NITRITE,URINE NEGATIVE (NEGATIVE); PROTEIN,URINE >=500 mg/dL (NEGATIVE); URINE SPECIFIC GRAVITY 1.016; UROBILINOGEN,URINE NEGATIVE mg/dL (<2.0)
[2019-05-24] MEDS ORDERED: NORMAL SALINE 1000 ML 1,000 ML IV PRN (18:21)
[2019-05-24 18:53] LABS: ANION GAP 9 (5-19); BLOOD UREA NITROGEN 12 mg/dL (7-20); CALCIUM 9.7 mg/dL (8.4-10.2); CARBON DIOXIDE 30 mmol/L (22-30); CHLORIDE 100 mmol/L (98-107); GLUCOSE 91 mg/dL (75-110)
--- NOTE | 2019-05-24 18:54 | EKG REPORT ---
SEVERITY:- ABNORMAL ECG - SINUS TACHYCARDIA BORDERLINE INFERIOR Q WAVES NONSPECIFIC T ABNORMALITIES, DIFFUSE LEADS : Confirmed by: Zakiya Francis 24-May-2019 18:53:22
[2019-05-24 18:55] LABS: POTASSIUM 4.1 mmol/L (3.6-5.0)
--- NOTE | 2019-05-24 19:08 | RADIOLOGY REPORT (SQ) ---
EXAM DESCRIPTION: CT ABD/PELVIS WITH IV ONLY COMPLETED DATE/TIME: 05/24/2019 6:46 pm REASON FOR STUDY: abd pain, vomiting, CONTRAST OK WITH PRE AND POST HYDRATION (OK PER rAD) COMPARISON: 09/03/2015 TECHNIQUE: CT scan of the abdomen and pelvis performed using helical scanning technique with dynamic intravenous contrast injection. No oral contrast. Images reviewed with lung, soft tissue, and bone windows. Reconstructed coronal and sagittal MPR images reviewed. Delayed images for evaluation of the urinary system also acquired. All images stored on PACS. All CT scanners at this facility use dose modulation, iterative reconstruction, and/or weight based d osing when appropriate to reduce radiation dose to as low as reasonably achievable (ALARA). [facility]: Dose Right [facility]: CareDose [facility]: Dose Right [facility]: Teradose 4D [facility]: logtrust CONTRAST TYPE AND DOSE: contrast/concentration: Isovue 300.00 mg/ml; Total Contrast Delivered: 94.0 ml; Total Saline Delivered: 71.0 ml RENAL FUNCTION: GFR = 47 RADIATION DOSE: CT Rad equipment meets quality standard of care and radiation dose reduction techniq ues were employed. CTDIvol: 5.2 - 7.0 mGy. DLP: 663 mGy-cm.. LIMITATIONS: None. FINDINGS: LOWER CHEST: No significant findings. No nodules or infiltrates. LIVER: Normal size. No masses. No dilated ducts. SPLEEN: Normal size. No focal lesions. PANCREAS: No masses. No significant calcifications. No adjacent inflammation or peripancreatic fluid collections. Pancreatic duct not dilated. GALLBLADDER: No identified stones by CT criteria. No inflammatory changes to suggest cholecystitis. ADRENAL GLANDS: No significant masses or asymmetry. RIGHT KIDNEY AND URETER: No solid masses. No significant calcifications. No hydronephrosis or hyd roureter. LEFT KIDNEY AND URETER: No solid masses. No significant calcifications. No hydronephrosis or hydr oureter. AORTA AND VESSELS: No aneurysm. No dissection. Renal arteries, SMA, celiac without stenosis. RETROPERITONEUM: No retroperitoneal adenopathy, hemorrhage or masses. BOWEL AND PERITONEAL CAVITY: No masses or inflammatory changes. No free fluid or peritoneal masses. APPENDIX: Surgically absent. PELVIS: No mass. No free fluid. Normal bladder. ABDOMINAL WALL: No masses. No hernias. BONES: No significant or acute findings. OTHER: No other significant finding. IMPRESSION: No acute CT findings in the abdomen or pelvis to explain pain. TECHNICAL DOCUMENTATION: JOB ID: [id number] Quality ID # [id number]: Final reports with documentation of one or more dose reduction techniques (e.g., Au tomated exposure control, adjustment of the mA and/or kV according to patient size, use of iterative reconstruction technique) 2010 [employer]- All Rights Reserved Reading location - IP/workstation name: [email or web address]
[2019-05-24] MEDS ORDERED: KETOROLAC TROMETHAMINE INJ/PF 30 MG/1 ML SDV IV ONE (19:38)
[2019-05-24 20:19] LABS: ANION GAP 14 (5-19); BLOOD UREA NITROGEN 25 mg/dL (7-20); CALCIUM 8.7 mg/dL (8.4-10.2); CARBON DIOXIDE 25 mmol/L (22-30); CHLORIDE 96 mmol/L (98-107); GLUCOSE 351 mg/dL (75-110); POTASSIUM 4.9 mmol/L (3.6-5.0)
[2019-05-24] MEDS ORDERED: INSULIN GLARGINE,HUM.REC.ANLOG 1,000 UNIT/10 ML VIAL SUBCUT ONE (20:31)
[2019-05-24 21:16] VITALS: BP 126/64
== END 2019-05-24 21:16 | disposition home or self-care (01) ==
LOC: ER 13:03
DX: E10.65 Type 1 diabetes mellitus with hyperglycemia (principal); E10.10 Type 1 diabetes mellitus with ketoacidosis without coma; N17.9 Acute kidney failure, unspecified; R07.2 Precordial pain; R11.2 Nausea with vomiting, unspecified; R06.02 Shortness of breath; Z79.4 Long term (current) use of insulin; F17.200 Nicotine dependence, unspecified, uncomplicated; I10 Essential (primary) hypertension; J45.909 Unspecified asthma, uncomplicated
CPT/HCPCS: 93005; 96376; 99285; 96361; 96374; 96375; 36415; 87086; 82553; 82962; 82550; 83690; 85025; 80053; 81001; 84484; 82803; 83605; 74177; 93010; J1815; J1885; J2270; J2405; J7030

== ENCOUNTER 2019-07-07 17:55 | Emergency (ER) | payer MEDICAID ==
[2019-07-07] MEDS ORDERED: NORMAL SALINE 1000 ML 1,000 ML IV ONE ×2 (19:11→19:45)
[2019-07-07] MEDS ORDERED: ONDANSETRON HCL INJ/PF 4 MG/2 ML SDV IV ONE (19:11)
--- NOTE | 2019-07-07 19:13 | ER Document Report ---
ED General - General Chief Complaint: Nausea/Vomiting Stated Complaint: VOMITING Time Seen by Provider: 07/07/19 18:16 Primary Care Provider: JARON ANN MD [Primary Care Provider] - Follow up as needed Notes: 33 year old diabetic presents with nausea and vomiting for a day. No fever. "I can't keep anything down." He is a longstanding type 1 diabetic. No cough and no sore throat. TRAVEL OUTSIDE OF THE [place] IN LAST 30 DAYS: No - Related Data Allergies/Adverse Reactions: No Known Allergies Allergy (Verified 07/07/19 18:11) Past Medical History - Social History Smoking Status: Current Every Day Smoker Family History: Reviewed & Not Pertinent, DM, Hypertension Patient has suicidal ideation: No Patient has homicidal ideation: No - Past Medical History Cardiac Medical History: Reports: Hx Heart Attack - May 2017., Hx Hypertension Denies: Hx Congestive Heart Failure, Hx DVT, Hx Hypercholesterolemia, Hx Pulmonary Embolism Pulmonary Medical History: Reports: Hx Asthma - as child Denies: Hx COPD, Hx Sleep Apnea Neurological Medical History: Reports: Hx Migraine. Denies: Hx Seizures Endocrine Medical History: Reports: Hx Diabetes Mellitus Type 1. Denies: Hx Arlin betes Mellitus Type 2, Hx Hyperthyroidism, Hx Hypothyroidism Renal/ Medical History: Denies: Hx Peritoneal Dialysis GI Medical History: Denies: Hx Cirrhosis, Hx Gastroesophageal Reflux Disease, Hx Hepatitis Musculoskeletal Medical History: Denies Hx Arthritis Psychiatric Medical History: Reports: Hx Anxiety, Hx Bipolar Disorder, Hx Depression, Hx Schizophrenia Infectious Medical History: Denies: Hx C-Diff, Hx Hepatitis, Hx MRSA Past Surgical History: Reports: Hx Appendectomy, Hx Oral Surgery - wisdom teeth, Other - [place] teeth extraction - Immunizations Hx Diphtheria, Pertussis, Tetanus Vaccination: Yes Hx Pneumococcal Vaccination: 09/16/00 Review of Systems - Review of Systems Constitutional: No symptoms reported EENT: No symptoms reported Cardiovascular: No symptoms reported Respiratory: No symptoms reported Gastrointestinal: No symptoms reported Genitourinary: No symptoms reported Male Genitourinary: No symptoms reported Musculoskeletal: No symptoms reported Skin: No symptoms reported Hematologic/Lymphatic: No symptoms reported Neurological/Psychological: No symptoms reported Physical Exam - Vital signs Vitals: Temp Pulse Resp BP Pulse Ox 98.5 F 131 H 20 142/112 H 96 07/07/19 17:58 07/07/19 17:58 07/07/19 17:58 07/07/19 17:58 07/07/19 17:58 Interpretation: Normal - General General appearance: Appears well, Alert - HEENT Head: Normocephalic, Atraumatic Eyes: Normal Pupils: PERRL - Respiratory Respiratory status: No respiratory distress Chest status: Nontender Breath sounds: Normal Chest palpation: Normal - Cardiovascular Rhythm: Regular Heart sounds: Normal auscultation Murmur: No - Abdominal Inspection: Normal Distension: No distension Bowel sounds: Normal Tenderness: Nontender Organomegaly: No organomegaly - Back Back: Normal, Nontender - Extremities General upper extremity: Normal inspection, Nontender, Normal color, Normal ROM, Normal temperature General lower extremity: Normal inspection, Nontender, Normal color, Normal ROM, Normal temperature, Normal weight bearing. No: All's sign - Neurological Neuro grossly intact: Yes Cognition: Normal Orientation: AAOx4 [place] Coma Scale Eye Opening: Spontaneous [place] Coma Scale Verbal: Oriented Mely Coma Scale Motor: Obeys Commands Mely Coma Scale Total: 15 Speech: Normal Motor strength normal: LUE, RUE, LLE, RLE Sensory: Normal - Psychological Associated symptoms: Normal affect, Normal mood - Skin Skin Temperature: Warm Skin Moisture: Dry Skin Color: Normal Course - Re-evaluation Re-evalutation: 07/07/19 20:50 MDM 33 year old with type 1 DM. [employer] and that is where he lives. No emesis here and feels better after ivf/ antiemetics. Trial of po at this time. 07/07/19 21:29 Tolerates po and has no further nausea at this time. - Vital Signs Vital signs: Temp Pulse Resp BP Pulse Ox 98.5 F 131 H 20 142/112 H 95 07/07/19 18:00 07/07/19 18:00 07/07/19 18:00 07/07/19 18:00 07/07/19 18:00 - Laboratory Result Diagrams: 07/07/19 19:12 07/07/19 19:12 Laboratory results interpreted by me: 07/07/19 07/07/19 19:12 19:12 WBC 11.6 H RDW 14.2 H Lymph % (Auto) 9.0 L Absolute Neuts (auto) 9.7 H Seg Neutrophils % 83.6 H Sodium 136.8 L Chloride 93 L Carbon Dioxide 32 H Creatinine 2.10 H Est GFR ( Amer) 44 L Est GFR (MDRD) Non-Af 36 L Glucose 201 H Discharge - Discharge Clinical Impression: Renal insufficiency Vomiting Qualifiers: Vomiting type: unspecified Vomiting Intractability: non-intractable Nausea presence: with nausea Qualified Code(s): R11.2 - Nausea with vomiting, unspecified Diabetes mellitus Qualifiers: Diabetes mellitus type: type 1 Diabetes mellitus complication status: with hyperglycemia Qualified Code(s): E10.65 - Type 1 diabetes mellitus with hyperglycemia Condition: Good Disposition: HOME, SELF-CARE Instructions: Antinausea Medication ([facility]), Vomiting ([facility]) Additional Instructions: See your doctor in follow up. Rest. Please return here for any problems or any concerns. Prescriptions: Promethazine HCl [Phenergan] 12.5 mg RC TID #8 supp.rect Ondansetron [Zofran Odt 4 mg Tablet] 1 - 2 tab PO Q4H PRN #15 tab.rapdis PRN Reason: For Nausea/Vomiting Referrals: JARON ANN MD [Primary Care Provider] - Follow up as needed
[2019-07-07 19:21] LABS: ABSOLUTE BASOPHILS # (AUTO) 0.1 10^3/uL (0.0-0.2); ABSOLUTE MONOCYTES (AUTO) 0.8 10^3/uL (0.1-1.4); ABSOLUTE NEUT (AUTO) 9.7 10^3/uL (1.7-8.2); BASOPHILS % (AUTO) 0.5 % (0-2); EOSINOPHILS % (AUTO) 0.3 % (0-6); HEMATOCRIT 44.3 % (37.9-51.0); HEMOGLOBIN 14.5 g/dL (13.5-17.0); MEAN CORPUSCULAR HEMOGLOBIN 27.1 pg (27.0-33.4); MEAN CORPUSCULAR HGB CONC 32.7 g/dL (32.0-36.0); MEAN CORPUSCULAR VOLUME 83 fl (80-97); MONOCYTES % (AUTO) 6.6 % (3-13); PLATELET COUNT 338 10^3/uL (150-450); RED BLOOD COUNT 5.35 10^6/uL (4.35-5.55); RED CELL DISTRIBUTION WIDTH 14.2 % (11.5-14.0); SEGMENTED NEUTROPHILS % (AUTO) 83.6 % (42-78); TOTAL CELLS COUNTED % (AUTO) 100 %; WHITE BLOOD COUNT 11.6 10^3/uL (4.0-10.5)
[2019-07-07 19:39] LABS: ALBUMIN 4.3 g/dL (3.5-5.0); ALKALINE PHOSPHATASE 111 U/L (38-126); ANION GAP 12 (5-19); ASPARTATE AMINO TRANSFERASE 22 U/L (17-59); BILIRUBIN,DIRECT 0.1 mg/dL (0.0-0.4); BILIRUBIN,TOTAL 0.5 mg/dL (0.2-1.3); BLOOD UREA NITROGEN 11 mg/dL (7-20); CALCIUM 9.6 mg/dL (8.4-10.2); CARBON DIOXIDE 32 mmol/L (22-30); CHLORIDE 93 mmol/L (98-107); GLUCOSE 201 mg/dL (75-110); POTASSIUM 3.8 mmol/L (3.6-5.0); TOTAL PROTEIN 7.8 g/dL (6.3-8.2)
[2019-07-07] MEDS ORDERED: METOCLOPRAMIDE HCL INJ/PF 10 MG/2 ML SDV IV ONE (19:44)
[2019-07-07] MEDS ORDERED: DIPHENHYDRAMINE HCL 50 MG/ML VIAL IV ONE (19:44)
[2019-07-07 21:48] VITALS: BP 178/108
== END 2019-07-07 21:50 | disposition home or self-care (01) ==
LOC: ER 17:55
DX: N28.9 Disorder of kidney and ureter, unspecified (principal); E10.65 Type 1 diabetes mellitus with hyperglycemia; R11.2 Nausea with vomiting, unspecified; F17.200 Nicotine dependence, unspecified, uncomplicated
CPT/HCPCS: 36415; 85025; 80053; J1200; J2765; J2405; J7030; 96361; 96374; 96375; 99284

== ENCOUNTER 2019-07-29 01:27 | Emergency (ER) | payer MEDICAID ==
[2019-07-29] MEDS ORDERED: ONDANSETRON HCL INJ/PF 4 MG/2 ML SDV IV ONE (01:49)
[2019-07-29] MEDS ORDERED: LABETALOL HCL INJ 20 MG/4 ML DISP.SYRIN IV ONE (01:49)
[2019-07-29] MEDS ORDERED: NORMAL SALINE 1000 ML 1,000 ML IV ONE (01:52)
--- NOTE | 2019-07-29 01:53 | ER Document Report ---
ED General - General Chief Complaint: Headache Stated Complaint: VOMITING Time Seen by Provider: 07/29/19 01:43 Primary Care Provider: JARON ANN MD [Primary Care Provider] - Follow up as needed TRAVEL OUTSIDE OF THE [place] IN LAST 30 DAYS: Yes - HPI Patient complains to provider of: headache/vomtiing/diarrhea Notes: 33 y/o presenting to ED for evaluation of vomiting/diarrhea/headache/elevated bp he has been out of bp meds x3-4 days he notes vomiting x6 and diarrhea x3-4 today - both nonbloody he has had generalized abdominal cramping but denies localized pain or back pain denies urinary symptoms he is a type 1 dm and reports that sugars have been "good" denies fever or chills denies sore throat - Related Data Allergies/Adverse Reactions: No Known Allergies Allergy (Verified 07/29/19 01:31) Past Medical History - Social History Smoking Status: Current Every Day Smoker Chew tobacco use (# tins/day): No Frequency of alcohol use: None Drug Abuse: None Family History: Reviewed & Not Pertinent, DM, Hypertension Patient has suicidal ideation: No Patient has homicidal ideation: No - Past Medical History Cardiac Medical History: Reports: Hx Heart Attack - May 2017., Hx Hypertension Denies: Hx Congestive Heart Failure, Hx DVT, Hx Hypercholesterolemia, Hx Pulmonary Embolism Pulmonary Medical History: Reports: Hx Asthma - as child Denies: Hx COPD, Hx Sleep Apnea Neurological Medical History: Reports: Hx Migraine. Denies: Hx Seizures Endocrine Medical History: Reports: Hx Diabetes Mellitus Type 1. Denies: Hx Diabetes Mellitus Type 2, Hx Hyperthyroidism, Hx Hypothyroidism Renal/ Medical History: Denies: Hx Peritoneal Dialysis GI Medical History: Denies: Hx Cirrhosis, Hx Gastroesophageal Reflux Disease, Hx Hepatitis Musculoskeletal Medical History: Denies Hx Arthritis Psychiatric Medical History: Reports: Hx Anxiety, Hx Bipolar Disorder, Hx Depression, Hx Schizophrenia Infectious Medical History: Denies: Hx C-Diff, Hx Hepatitis, Hx MRSA Past Surgical History: Reports: Hx Appendectomy, Hx Oral Surgery - wisdom teeth, Other - [place] teeth extraction - Immunizations Hx Diphtheria, Pertussis, Tetanus Vaccination: Yes Hx Pneumococcal Vaccination: 09/16/00 Review of Systems - Review of Systems Constitutional: No symptoms reported EENT: No symptoms reported Cardiovascular: No symptoms reported Respiratory: No symptoms reported Gastrointestinal: Abdominal pain, Diarrhea, Nausea, Vomiting Genitourinary: No symptoms reported Male Genitourinary: No symptoms reported Musculoskeletal: No symptoms reported Skin: No symptoms reported Hematologic/Lymphatic: No symptoms reported Neurological/Psychological: Headaches Physical Exam - Vital signs Vitals: Temp Pulse Resp BP Pulse Ox 98.3 F 118 H 18 184/120 H 97 07/29/19 01:29 07/29/19 01:29 07/29/19 01:29 07/29/19 01:29 07/29/19 01:29 Interpretation: Normal - General General appearance: Appears well, Alert - HEENT Head: Normocephalic, Atraumatic Eyes: Normal Pupils: PERRL Mucous membranes: Dry Pharynx: Normal Neck: Normal. No: Lymphadenopathy, Meningismus - Respiratory Respiratory status: No respiratory distress Chest status: Nontender Breath sounds: Normal Chest palpation: Normal - Cardiovascular Rhythm: Tachycardia Heart sounds: Normal auscultation Murmur: No - Abdominal Inspection: Normal Distension: No distension Bowel sounds: Normal Tenderness: Nontender Organomegaly: No organomegaly - Back Back: Normal, Nontender - Extremities General upper extremity: Normal inspection, Nontender, Normal color, Normal ROM, Normal temperature General lower extremity: Normal inspection, Nontender, Normal color, Normal ROM, Normal temperature, Normal weight bearing. No: All's sign - Neurological Neuro grossly intact: Yes Cognition: Normal Orientation: AAOx4 [place] Coma Scale Eye Opening: Spontaneous M[place] Coma Scale Verbal: Oriented [place] Coma Scale Motor: Obeys Commands Mely Coma Scale Total: 15 Speech: Normal Motor strength normal: LUE, RUE, LLE, RLE Sensory: Normal - Psychological Associated symptoms: Normal affect, Normal mood - Skin Skin Temperature: Warm Skin Moisture: Dry Skin Color: Normal Course - Re-evaluation Re-evalutation: 07/29/19 01:52 tachycardic and hypertensive will check sugar upon arrival order basic labs to include vbg and urine treat bp w/ labetalol and nausea w/ zofran start ivf hydration 07/29/19 03:34 patient with glucose in low 300's but normal ph and gap will correct sugar with ivf and replace low K toradol given for pain as well as a dose of hydralazine as BP has remained hi 07/29/19 04:06 BP and symptoms improved dc once ivf and K is finished - Vital Signs Vital signs: Temp Pulse Resp BP Pulse Ox 98.3 F 118 H 14 155/94 H 97 07/29/19 01:29 07/29/19 01:29 07/29/19 03:01 07/29/19 04:02 07/29/19 01:29 - Laboratory Result Diagrams: 07/29/19 02:33 07/29/19 02:33 Laboratory results interpreted by me: 07/29/19 07/29/19 07/29/19 01:54 02:33 02:33 MCH 26.7 L Potassium 3.3 L Creatinine 1.81 H Est GFR ( Amer) 52 L Est GFR (MDRD) Non-Af 43 L Glucose 301 H POC Glucose 307 H - EKG Interpretation by Me Additional EKG results interpreted by me: 07/29/19 02:31 NSR, rate of 101, nonspecific T abnl in inferior leads. YAYO abnl in precordial leads Discharge - Discharge Clinical Impression: Noncompliance, Hyperglycemia, Hypokalemia, Elevated blood pressure reading Condition: Stable Disposition: HOME, SELF-CARE Instructions: Headache ([facility]), Toradol Injection ([facility]) Additional Instructions: follow up with primary doctor take your medicine as directed return to the ED for worsening Prescriptions: Amlodipine Besylate [Norvasc 5 mg Tablet] 5 mg PO DAILY #30 tablet Atenolol [Tenormin 50 mg Tablet] 50 mg PO DAILY #30 tablet Forms: Elevated Blood Pressure Referrals: JARON ANN MD [Primary Care Provider] - Follow up as needed
[2019-07-29 02:48] LABS: ABSOLUTE EOSINOPHILS # (AUTO) 0.1 10^3/uL (0.0-0.6); ABSOLUTE LYMPHOCYTES (AUTO) 2.4 10^3/uL (0.5-4.7); ABSOLUTE MONOCYTES (AUTO) 0.6 10^3/uL (0.1-1.4); ABSOLUTE NEUT (AUTO) 6.4 10^3/uL (1.7-8.2); BASOPHILS % (AUTO) 0.3 % (0-2); EOSINOPHILS % (AUTO) 1.5 % (0-6); HEMATOCRIT 42.9 % (37.9-51.0); HEMOGLOBIN 14.3 g/dL (13.5-17.0); LYMPHOCYTES % (AUTO) 25.4 % (13-45); MEAN CORPUSCULAR HEMOGLOBIN 26.7 pg (27.0-33.4); MEAN CORPUSCULAR HGB CONC 33.2 g/dL (32.0-36.0); MEAN CORPUSCULAR VOLUME 80 fl (80-97); MONOCYTES % (AUTO) 6.7 % (3-13); PLATELET COUNT 260 10^3/uL (150-450); RED BLOOD COUNT 5.34 10^6/uL (4.35-5.55); RED CELL DISTRIBUTION WIDTH 13.8 % (11.5-14.0); SEGMENTED NEUTROPHILS % (AUTO) 66.1 % (42-78); TOTAL CELLS COUNTED % (AUTO) 100 %; WHITE BLOOD COUNT 9.6 10^3/uL (4.0-10.5)
[2019-07-29 02:56] LABS: VENOUS BLOOD BASE EXCESS 0.3 mmol/L; VENOUS BLOOD HCO3 26.7 mmol/L (20-32); VENOUS BLOOD PCO2 49.5 mmHg (35-63); VENOUS BLOOD PH 7.35 (7.30-7.42)
[2019-07-29] MEDS ORDERED: HYDRALAZINE HCL INJ/PF 20 MG/1 ML SDV IV ONE (03:08)
[2019-07-29] MEDS ORDERED: KETOROLAC TROMETHAMINE INJ/PF 30 MG/1 ML SDV IV ONE (03:08)
[2019-07-29 03:17] LABS: ALBUMIN 4.1 g/dL (3.5-5.0); ALKALINE PHOSPHATASE 86 U/L (38-126); ANION GAP 11 (5-19); ASPARTATE AMINO TRANSFERASE 25 U/L (17-59); BILIRUBIN,DIRECT 0.2 mg/dL (0.0-0.4); BILIRUBIN,TOTAL 0.5 mg/dL (0.2-1.3); BLOOD UREA NITROGEN 13 mg/dL (7-20); CALCIUM 9.2 mg/dL (8.4-10.2); CARBON DIOXIDE 26 mmol/L (22-30); CHLORIDE 100 mmol/L (98-107); GLUCOSE 301 mg/dL (75-110); POTASSIUM 3.3 mmol/L (3.6-5.0); TOTAL PROTEIN 7.6 g/dL (6.3-8.2)
[2019-07-29] MEDS ORDERED: RINGERS SOLUTION,LACTATED 1,000 ML IV ONE (03:20)
[2019-07-29] MEDS ORDERED: POTASSI CL 20 MEQ/50 ML RIDER 20 MEQ/50 ML RTUPB IV ONE (03:21)
[2019-07-29 07:04] VITALS: BP 155/94
--- NOTE | 2019-07-29 11:09 | EKG REPORT ---
SEVERITY:- ABNORMAL ECG - SINUS TACHYCARDIA NONSPECIFIC T ABNORMALITIES, INFERIOR LEADS : Confirmed by: Arin Drummond MD 29-Jul-2019 11:08:54
== END 2019-07-29 06:10 | disposition home or self-care (01) ==
LOC: ER 01:27
DX: E10.65 Type 1 diabetes mellitus with hyperglycemia (principal); E87.6 Hypokalemia; Z91.19 Patient's noncompliance with other medical treatment and regimen; R51 Headache; R11.10 Vomiting, unspecified; I10 Essential (primary) hypertension; R19.7 Diarrhea, unspecified; F17.200 Nicotine dependence, unspecified, uncomplicated; I25.2 Old myocardial infarction
CPT/HCPCS: 93005; 36415; 82962; 83690; 85025; 80053; 82803; 93010; J0360; J3490; J1885; J2405; J3480; J7030; J7120

== ENCOUNTER 2019-08-21 01:09 | Inpatient (IN) | payer MEDICAID ==
[2019-08-21] MEDS ORDERED: NORMAL SALINE 1000 ML 1,000 ML IV ONE (01:17)
[2019-08-21 01:37] LABS: VENOUS BLOOD BASE EXCESS -8.9 mmol/L; VENOUS BLOOD HCO3 16.9 mmol/L (20-32); VENOUS BLOOD PCO2 36.6 mmHg (35-63); VENOUS BLOOD PH 7.28 (7.30-7.42)
[2019-08-21] MEDS ORDERED: LABETALOL HCL INJ 20 MG/4 ML DISP.SYRIN IV ONE (01:38)
[2019-08-21] MEDS ORDERED: INSULIN REG, HUMAN 100 UNIT/ML 3 ML VIAL (PYX) SUBCUT ONE (01:38)
[2019-08-21 01:50] LABS: INTERNATIONAL RATION (INR) 0.98
[2019-08-21 01:58] LABS: ALBUMIN 4.4 g/dL (3.5-5.0); ALKALINE PHOSPHATASE 134 U/L (38-126); ASPARTATE AMINO TRANSFERASE 18 U/L (17-59); BILIRUBIN,DIRECT 0.4 mg/dL (0.0-0.4); BILIRUBIN,TOTAL 0.7 mg/dL (0.2-1.3); BLOOD UREA NITROGEN 28 mg/dL (7-20); CALCIUM 10.6 mg/dL (8.4-10.2); POTASSIUM 5.3 mmol/L (3.6-5.0); TOTAL PROTEIN 7.6 g/dL (6.3-8.2)
[2019-08-21 02:01] LABS: CARBON DIOXIDE 16 mmol/L (22-30); CHLORIDE 100 mmol/L (98-107)
--- NOTE | 2019-08-21 02:03 | ER Document Report ---
ED General - General Chief Complaint: Nausea/Vomiting Stated Complaint: HYPERGLYCEMIA Time Seen by Provider: 08/21/19 01:14 Primary Care Provider: JARON ANN MD [Primary Care Provider] - Follow up as needed Mode of Arrival: Medic Information source: Patient TRAVEL OUTSIDE OF THE [place] IN LAST 30 DAYS: No - HPI Patient complains to provider of: hyperglycemia, vomiting Onset: Other - Today Onset/Duration: Gradual Quality of pain: No pain Severity: Moderate Pain Level: Denies Associated symptoms: Nausea, Vomiting Exacerbated by: Denies Relieved by: Denies Similar symptoms previously: Yes Recently seen / treated by doctor: Yes - patient seen in this ER in Jul for the same Notes: 33 year old male with a history of HTN, DM, Drug Use, and Medical Noncompliance here for high blood sugars, nausea, vomiting. The patient says he has been taking his DM medications as prescribed but when he checked his blood sugar it was read as high. The patient was tachycardic, hypertensive, and hyperglycemic on ER arrival. - Related Data Allergies/Adverse Reactions: No Known Allergies Allergy (Verified 07/29/19 01:31) Past Medical History - Social History Smoking Status: Current Every Day Smoker Frequency of alcohol use: Social Drug Abuse: Cocaine, Marijuana Family History: Reviewed & Not Pertinent, DM, Hypertension Patient has suicidal ideation: No Patient has homicidal ideation: No - Past Medical History Cardiac Medical History: Reports: Hx Heart Attack - May 2017., Hx Hypertension Denies: Hx Congestive Heart Failure, Hx DVT, Hx Hypercholesterolemia, Hx Pulmonary Embolism Pulmonary Medical History: Reports: Hx Asthma - as child Denies: Hx COPD, Hx Sleep Apnea Neurological Medical History: Reports: Hx Migraine. Denies: Hx Seizures Endocrine Medical History: Reports: Hx Diabetes Mellitus Type 1. Denies: Hx Diabetes Mellitus Type 2, Hx Hyperthyroidism, Hx Hypothyroidism Renal/ Medical History: Denies: Hx Peritoneal Dialysis GI Medical History: Denies: Hx Cirrhosis, Hx Gastroesophageal Reflux Disease, Hx Hepatitis Musculoskeletal Medical History: Denies Hx Arthritis Psychiatric Medical History: Reports: Hx Anxiety, Hx Bipolar Disorder, Hx Depression, Hx Schizophrenia Infectious Medical History: Denies: Hx C-Diff, Hx Hepatitis, Hx MRSA Past Surgical History: Reports: Hx Appendectomy, Hx Oral Surgery - wisdom teeth, Other - [place] teeth extraction - Immunizations Hx Diphtheria, Pertussis, Tetanus Vaccination: Yes Hx Pneumococcal Vaccination: 09/16/00 Review of Systems - Review of Systems Constitutional: No symptoms reported, Other - high blood sugars EENT: No symptoms reported Cardiovascular: No symptoms reported Respiratory: No symptoms reported Gastrointestinal: Nausea, Vomiting Genitourinary: No symptoms reported Male Genitourinary: No symptoms reported Musculoskeletal: No symptoms reported Skin: No symptoms reported Neurological/Psychological: No symptoms reported Physical Exam - Vital signs Vitals: Temp Pulse Resp BP 98.6 F 142 H 30 H 199/112 H 08/21/19 01:10 08/21/19 01:10 08/21/19 01:10 08/21/19 01:10 - Notes Notes: GENERAL: Well-appearing, well-nourished and in no acute distress. HEAD: Atraumatic, normocephalic. EYES: Pupils equal round and reactive to light, extraocular movements intact, sclera anicteric, conjunctiva are normal. ENT: Nares patent, oropharynx clear without exudates. Moist mucous membranes. NECK: Normal range of motion, supple without lymphadenopathy or JVD. LUNGS: Breath sounds clear to auscultation bilaterally and equal. No wheezes rales or rhonchi. HEART: Tachycardic, normal rhythm without murmurs, rubs or gallops. ABDOMEN: Soft, nontender, normoactive bowel sounds. No guarding, no rebound. No masses appreciated. EXTREMITIES: Normal range of motion, no pitting or edema. No clubbing or cyanosis. NEUROLOGICAL: Cranial nerves II through XII grossly intact. Normal speech, normal gait. PSYCH: Normal mood, normal affect. SKIN: Warm, Dry, normal turgor, no rashes or lesions noted. Course - Re-evaluation Re-evalutation: 08/21/19 02:48 The patient is in DKA. He was treated in the ER with fluids, IV insulin, and an insulin drip was started. Patient was admitted to step down. - Vital Signs Vital signs: Temp Pulse Resp BP Pulse Ox 98.6 F 142 H 24 H 199/112 H 100 08/21/19 01:10 08/21/19 01:10 08/21/19 01:23 08/21/19 01:23 08/21/19 01:28 - Laboratory Result Diagrams: 08/21/19 02:02 08/21/19 01:25 Laboratory results interpreted by me: 08/21/19 08/21/19 08/21/19 01:25 01:25 02:02 WBC 16.8 H MCH 26.7 L MCHC 31.2 L RDW 15.0 H VBG pH 7.28 L VBG HCO3 16.9 L Potassium 5.3 H Carbon Dioxide 16 L Anion Gap 27 H BUN 28 H Creatinine 2.53 H Est GFR ( Amer) 35 L Est GFR (MDRD) Non-Af 29 L Glucose 921 H* Calcium 10.6 H Alkaline Phosphatase 134 H - EKG Interpretation by Me EKG shows normal: Sinus rhythm, ST-T Waves - T wave inversions in aVR, aVF, II, III, V4-V6 Rate: Tachycardia Rhythm: NSR Critical Care Note - Critical Care Note Total time excluding time spent on procedures (mins): 31 Discharge - Discharge Clinical Impression: Diabetic ketoacidosis Qualifiers: Diabetes mellitus type: type 1 Diabetes mellitus complication detail: without coma Qualified Code(s): E10.10 - Type 1 diabetes mellitus with ketoacidosis without coma Hypertension Qualifiers: Hypertension type: essential hypertension Qualified Code(s): I10 - Essential (primary) hypertension Condition: Serious Disposition: ADMITTED INPATIENT Admitting Provider: Isael Unit Admitted: IMCU Referrals: JARON ANN MD [Primary Care Provider] - Follow up as needed
[2019-08-21] MEDS: NORMAL SALINE 1000 ML 1,000 ML IV PRN ×3 (02:07→20:53)
[2019-08-21 02:08] LABS: HEMATOCRIT 44.4 % (37.9-51.0); HEMOGLOBIN 13.8 g/dL (13.5-17.0); MEAN CORPUSCULAR HEMOGLOBIN 26.7 pg (27.0-33.4); MEAN CORPUSCULAR HGB CONC 31.2 g/dL (32.0-36.0); PLATELET COUNT 323 10^3/uL (150-450); RED BLOOD COUNT 5.18 10^6/uL (4.35-5.55); WHITE BLOOD COUNT 16.8 10^3/uL (4.0-10.5)
[2019-08-21 02:18] LABS: MEAN CORPUSCULAR VOLUME 86 fl (80-97)
[2019-08-21 02:25] LABS: ANION GAP 27 (5-19)
[2019-08-21 02:26] LABS: GLUCOSE 921 mg/dL (75-110)
[2019-08-21] MEDS ORDERED: NORMAL SALINE 100 ML with INSULIN REGULAR, HUMAN 100 UNIT IV PRN ×4 (02:40→06:17)
[2019-08-21] MEDS ORDERED: ACETAMINOPHEN 325 MG TABLET PO ONE ×2 (05:14→05:49)
[2019-08-21] MEDS ORDERED: NORMAL SALINE 1000 ML 1,000 ML IV PRN (06:12)
[2019-08-21] MEDS ORDERED: GLUCAGON,HUMAN RECOMB 1 MG INJ IM PRN ×3 (06:16→22:00)
[2019-08-21] MEDS ORDERED: DEXTROSE 50%-WATER 25 GM/50 ML DISP.SYRIN IV PRN ×4 (06:16→06:17)
[2019-08-21] MEDS ORDERED: DEXTROSE 40% GEL 15 GM TUBE PO PRN ×5 (06:16→22:00)
[2019-08-21 06:20] LABS: APPEARANCE,URINE CLEAR; BILIRUBIN,URINE NEGATIVE (NEGATIVE); COLOR,URINE COLORLESS; GLUCOSE, URINE >=500 mg/dL (NEGATIVE); KETONES,URINE 20 mg/dL (NEGATIVE); LEUKOCYTE ESTERASE,URINE NEGATIVE (NEGATIVE); NITRITE,URINE NEGATIVE (NEGATIVE); PROTEIN,URINE 100 mg/dL (NEGATIVE); URINE SPECIFIC GRAVITY 1.013; UROBILINOGEN,URINE NEGATIVE mg/dL (<2.0)
[2019-08-21 06:41] LABS: PHOSPHORUS 7.6 mg/dL (2.5-4.5)
[2019-08-21] MEDS ORDERED: INSULIN REG, HUMAN 100 UNIT/ML 3 ML VIAL (PYX) ONE (06:47)
[2019-08-21 06:51] LABS: CREATINE KINASE MB 0.74 ng/mL (<4.55)
[2019-08-21 06:59] LABS: FREE T4 (FREE THYROXINE) 2.2 ng/dL (0.78-2.19)
[2019-08-21] MEDS: NORMAL SALINE 100 ML with INSULIN REGULAR, HUMAN 100 UNIT IV PRN ×4 (07:04→18:38)
[2019-08-21 07:13] LABS: THYROID STIMULATING HORMONE 0.19 uIU/mL (0.47-4.68)
[2019-08-21 07:57] LABS: URINE AMPHETAMINES SCREEN NEGATIVE; URINE BARBITURATES SCREEN NEGATIVE; URINE COCAINE SCREEN NEGATIVE; URINE MARIJUANA (THC) SCREEN NEGATIVE; URINE METHADONE SCREEN NEGATIVE; URINE PHENCYCLIDINE SCREEN NEGATIVE
[2019-08-21 08:03] LABS: URINE BENZODIAZEPINES SCREEN UNCONFIRMED POSITIVE
[2019-08-21] MEDS: OXYCODONE-ACETAMINOPHEN 5-325 MG TABLET PO PRN ×2 (09:30→16:20)
[2019-08-21] MEDS: ENOXAPARIN SODIUM INJ 40 MG/0.4 ML DISP.SYRIN SUBCUT SCH (10:49)
--- NOTE | 2019-08-21 13:09 | EKG REPORT ---
SEVERITY:- ABNORMAL ECG - SINUS TACHYCARDIA ABNORMAL T, CONSIDER ISCHEMIA, ANT-LAT LEADS PROBABLE LVH : Confirmed by: Arin Drummond MD 21-Aug-2019 13:09:17
--- NOTE | 2019-08-21 13:09 | EKG REPORT ---
SEVERITY:- ABNORMAL ECG - SINUS TACHYCARDIA PROBABLE LEFT ATRIAL ABNORMALITY BORDERLINE INFERIOR Q WAVES ABNORMAL T, CONSIDER ISCHEMIA, DIFFUSE LEADS : Confirmed by: Arin Drummond MD 21-Aug-2019 13:08:44
[2019-08-21] MEDS: BUTALB/ACETAMINOPHEN/CAFFEINE 1 TAB EACH PO PRN (14:20)
[2019-08-21] MEDS: ONDANSETRON 4 MG TAB.RAPDIS PO PRN ×2 (14:20→18:37)
[2019-08-21 17:40] LABS: ANION GAP 10 (5-19); BLOOD UREA NITROGEN 23 mg/dL (7-20); CALCIUM 9.7 mg/dL (8.4-10.2); CHLORIDE 109 mmol/L (98-107); GLUCOSE 177 mg/dL (75-110)
[2019-08-21] MEDS ORDERED: DEXTROSE 5%-NORMAL SALINE 1,000 ML IV PRN (17:56)
[2019-08-21 18:33] LABS: CARBON DIOXIDE 28 mmol/L (22-30); POTASSIUM 3.4 mmol/L (3.6-5.0)
[2019-08-21] MEDS: ACETAMINOPHEN 325 MG TABLET PO PRN (20:29)
[2019-08-21] MEDS ORDERED: DEXTROSE 40% GEL 15 GM TUBE X 2 PO PRN (22:00)
[2019-08-21] MEDS ORDERED: DEXTROSE 50%-WATER SYRINGE 12.5 GM/25 ML DOSE IV PRN (22:00)
[2019-08-21] MEDS ORDERED: DEXTROSE 50%-WATER SYRINGE 25 GM/50 ML DOSE IV PRN (22:00)
[2019-08-21] MEDS ORDERED: INSULIN GLARGINE,HUM.REC.ANLOG 1,000 UNIT/10 ML VIAL (PYX) SUBCUT ONE (22:00)
[2019-08-21] MEDS ORDERED: (PENDING PHARMACY ID) (Oxycodone Hcl/Acetaminophen [Percocet 7.5-325 Mg Tablet] 1 EACH) PO PRN (22:16)
--- NOTE | 2019-08-21 22:26 | PDOC H&P ---
History of Present Illness Admission Date/PCP: 08/21/19 03:34 JARON ANN MD History of Present Illness: LENA SCHULZ is a 33 year old male, He has history of poor diabetes mellitus,, schizophrenia poor medication adherence, he came to the emergency room for evaluation of nausea, vomiting, hyperglycemia, in the emergency room he was found to be in diabetic ketoacidosis.Treatment for DKA was initiated in the emergency room, he was acidotic with a background of elevated anion gap and severe hyperglycemia. Patient has presented in this fashion on multiple occasions, he does not follow in the office on a regular basis, he was referred to endocrinology with the intent for him to obtain insulin pump because he has type 1 but unfortunately he never kept the appointment with the endocrinology. And I felt that is the best strategy for the effective management of his diabetes mellitus Past Medical History Cardiac Medical History: Reports: Myocardial Infarction - May 2017., Hypertension Pulmonary Medical History: Reports: Asthma - as child Neurological Medical History: Reports: Migraine Denies: Seizures Endocrine Medical History: Reports: Diabetes Mellitus Type 1 Musculoskeltal Medical History: Denies: Arthritis Psychiatric Medical History: Reports: Bipolar Disorder, Depression Hematology: Reports: Anemia Infectious Medical History: Denies: Clostridium Difficile, Methicillin-Resistant Staph Aureus Past Surgical History Past Surgical History: Reports: Appendectomy, Other - [place] teeth extraction Social History Smoking Status: Current Every Day Smoker Pipes Per Day: 1 Number of Years Smokin Last Time Smoked: 08/20/2019 Frequency of Alcohol Use: None Hx Recreational Drug Use: No Drugs: None Hx Prescription Drug Abuse: No Family History Family History: Reviewed & Not Pertinent, DM, Hypertension Parental Family History Reviewed: Yes Children Family History Reviewed: Yes Sibling(s) Family History Reviewed.: Yes Medication/Allergy Home Medications: Amox Tr/Potassium Clavulanate [Augmentin 875-125 mg Tablet] 1 tab PO BID 08/21/19 Citalopram Hydrobromide [Celexa 40 mg Tablet] 1 tab PO DAILY 08/21/19 Gabapentin [Neurontin 100 mg Capsule] 200 mg PO TID 08/21/19 Insulin Glargine,Hum.rec.anlog [Lantus Insulin 100 Unit/1 ml 10 ml] 35 unit SUBCUT DAILY 08/21/19 Insulin Lispro [Humalog] 12 unit SQ TID 08/21/19 Mirtazapine [Remeron] 50 mg PO DAILY 08/21/19 Oxycodone HCl/Acetaminophen [Percocet 7.5-325 mg Tablet] 1 each PO Q4HP PRN 08/21/19 Quetiapine Fumarate [Seroquel] 800 mg PO TID 08/21/19 Trazodone HCl [Desyrel] 200 mg PO QPM 08/21/19 Allergies/Adverse Reactions: No Known Allergies Allergy (Verified 07/29/19 01:31) Review of Systems Constitutional: ABSENT: chills, fever(s), headache(s), weight gain, weight loss Eyes: ABSENT: visual disturbances Ears: ABSENT: hearing changes Cardiovascular: ABSENT: chest pain, dyspnea on exertion, edema, orthropnea, palpitations Respiratory: ABSENT: cough, hemoptysis Gastrointestinal: PRESENT: nausea, vomiting Genitourinary: ABSENT: dysuria, hematuria Musculoskeletal: ABSENT: joint swelling Integumentary: ABSENT: rash, wounds Neurological: ABSENT: abnormal gait, abnormal speech, confusion, dizziness, focal weakness, syncope Psychiatric: ABSENT: anxiety, depression, homidical ideation, suicidal ideation Endocrine: ABSENT: cold intolerance, heat intolerance, menstrual abnormalities, polydipsia, polyuria Hematologic/Lymphatic: ABSENT: easy bleeding, easy bruising, lymphadenopathy Physical Exam Vital Signs: Temp Pulse Resp BP Pulse Ox 99.0 F 96 18 177/96 H 100 08/21/19 16:06 08/21/19 16:06 08/21/19 16:06 08/21/19 16:06 08/21/19 16:06 Intake & Output 08/20/19 08/21/19 08/22/19 06:59 06:59 06:59 Intake Total 3000 1554 Balance 3000 1554 Weight 81.647 kg 75.5 kg General appearance: PRESENT: no acute distress, well-developed, well-nourished Head exam: PRESENT: atraumatic, normocephalic Eye exam: PRESENT: conjunctiva pink, EOMI, PERRLA Ear exam: PRESENT: normal external ear exam Mouth exam: PRESENT: moist, tongue midline Neck exam: PRESENT: full ROM Respiratory exam: PRESENT: clear to auscultation juan ramon Cardiovascular exam: PRESENT: RRR, +S1, +S2 Pulses: PRESENT: normal dorsalis pedis pul, +2 pedal pulses bilateral Vascular exam: PRESENT: normal capillary refill GI/Abdominal exam: PRESENT: normal bowel sounds, soft Rectal exam: PRESENT: deferred Neurological exam: PRESENT: alert, awake, oriented to person, oriented to place, oriented to time, oriented to situation, CN II-XII grossly intact. ABSENT: motor sensory deficit Psychiatric exam: PRESENT: appropriate affect, normal mood Skin exam: PRESENT: dry, intact, warm Results Laboratory Results: 08/21/19 02:02 08/21/19 17:11 08/21/19 08/21/19 08/21/19 01:25 01:25 01:25 WBC Cancelled RBC Cancelled Hgb Cancelled Hct Cancelled MCV Cancelled MCH Cancelled MCHC Cancelled RDW Cancelled Plt Count Cancelled VBG pH 7.28 L VBG pCO2 36.6 VBG HCO3 16.9 L VBG Base Excess -8.9 Sodium 143.0 Potassium 5.3 H Chloride 100 Carbon Dioxide 16 L Anion Gap 27 H BUN 28 H Creatinine 2.53 H Est GFR ( Amer) 35 L Glucose 921 H* Calcium 10.6 H Phosphorus Magnesium Total Bilirubin 0.7 AST 18 Alkaline Phosphatase 134 H Total Protein 7.6 Albumin 4.4 Amylase Lipase 27.3 TSH Free T4 Urine Color Urine Appearance Urine pH Ur Specific [place] Urine Protein Urine Glucose (UA) Urine Ketones Urine Blood Urine Nitrite Ur Leukocyte Esterase Urine RBC (Auto) 08/21/19 08/21/19 08/21/19 01:25 01:25 02:02 WBC 16.8 H RBC 5.18 Hgb 13.8 Hct 44.4 MCV 86 D MCH 26.7 L MCHC 31.2 L RDW 15.0 H Plt Count 323 VBG pH VBG pCO2 VBG HCO3 VBG Base Excess Sodium Potassium Chloride Carbon Dioxide Anion Gap BUN Creatinine Est GFR ( Amer) Glucose Calcium Phosphorus 7.6 H Magnesium 2.5 H Total Bilirubin AST Alkaline Phosphatase Total Protein Albumin Amylase 57 Lipase 30.5 TSH 0.19 L Free T4 2.20 H Urine Color Urine Appearance Urine pH Ur Specific [place] Urine Protein Urine Glucose (UA) Urine Ketones Urine Blood Urine Nitrite Ur Leukocyte Esterase Urine RBC (Auto) 08/21/19 08/21/19 05:58 17:11 WBC RBC Hgb Hct MCV MCH MCHC RDW Plt Count VBG pH VBG pCO2 VBG HCO3 VBG Base Excess Sodium 146.6 H Potassium 3.4 L D Chloride 109 H Carbon Dioxide 28 D Anion Gap 10 BUN 23 H Creatinine 1.72 H Est GFR ( Amer) 55 L Glucose 177 H Calcium 9.7 Phosphorus Magnesium Total Bilirubin AST Alkaline Phosphatase Total Protein Albumin Amylase Lipase TSH Free T4 Urine Color COLORLESS Urine Appearance CLEAR Urine pH 5.0 Ur Specific [place] 1.013 Urine Protein 100 H Urine Glucose (UA) >=500 H Urine Ketones 20 H Urine Blood SMALL H Urine Nitrite NEGATIVE Ur Leukocyte Esterase NEGATIVE Urine RBC (Auto) 0 08/21/19 08/21/19 08/21/19 01:25 01:25 01:25 Creatine Kinase 90 CK-MB (CK-2) 0.74 Troponin I 0.028 NT-Pro-B Natriuret Pep 85 Assessment & Plan - Diagnosis (1) DKA (diabetic ketoacidoses) Qualifiers: Diabetes mellitus type: type 1 Diabetes mellitus complication detail: without coma Qualified Code(s): E10.10 - Type 1 diabetes mellitus with ketoacidosis without coma Is this a current diagnosis for this admission?: Yes Plan: Continue insulin drip, normal saline, follow anion gap, once anion gap is below 12 insulin drip will be changed to the usual regimen of insulin. Was the Accu- Chek is below 250 the infusion will be changed from normal saline to 5% dextrose normal saline
[2019-08-21] MEDS ORDERED: INSULIN LISPRO 12 UNIT SQ SCH (22:30)
[2019-08-21] MEDS ORDERED: (PENDING PHARMACY ID) (Quetiapine Fumarate [Seroquel] 800 MG) PO SCH (22:30)
[2019-08-21] MEDS ORDERED: (PENDING PHARMACY ID) (Trazodone Hcl [Desyrel] 200 MG) PO SCH (22:30)
[2019-08-21] MEDS ORDERED: (PENDING PHARMACY ID) (Citalopram Hydrobromide [Celexa 40 Mg Tablet] 1 TAB) PO SCH (22:30)
[2019-08-21] MEDS ORDERED: MIRTAZAPINE PO SCH (22:30)
[2019-08-21] MEDS ORDERED: INSULIN GLARGINE,HUM.REC.ANLOG 1,000 UNIT/10 ML VIAL SUBCUT SCH (22:30)
[2019-08-21] MEDS: MIRTAZAPINE 15 MG TABLET PO SCH (22:42)
[2019-08-21] MEDS: TRAZODONE HCL 50 MG TABLET PO SCH (22:42)
[2019-08-21] MEDS: QUETIAPINE FUMARATE 100 MG TABLET PO SCH (22:42)
[2019-08-21] MEDS ORDERED: AMOXICILLIN TR/POT CLAVULANATE 500-125 MG TAB PO ONE (22:45)
[2019-08-21] MEDS ORDERED: GABAPENTIN 100 MG CAPSULE PO ONE (23:00)
[2019-08-21] MEDS: INSULIN LISPRO 100 UNIT/ML 3 ML VIAL SUBCUT SCH (23:48)
[2019-08-22 02:53] LABS: ANION GAP 9 (5-19); BLOOD UREA NITROGEN 17 mg/dL (7-20); CALCIUM 8.9 mg/dL (8.4-10.2); CARBON DIOXIDE 24 mmol/L (22-30); CHLORIDE 108 mmol/L (98-107); GLUCOSE 248 mg/dL (75-110); POTASSIUM 3.6 mmol/L (3.6-5.0)
[2019-08-22] MEDS: NORMAL SALINE 1000 ML 1,000 ML IV PRN (05:57)
[2019-08-22] MEDS: AMOXICILLIN TR/POT CLAVULANATE 500-125 MG TAB PO SCH ×3 (05:58→22:33)
[2019-08-22] MEDS: INSULIN LISPRO 100 UNIT/ML 3 ML VIAL SUBCUT SCH ×7 (07:53→22:34)
[2019-08-22] MEDS: CITALOPRAM HYDROBROMIDE 20 MG TABLET PO SCH (10:19)
[2019-08-22] MEDS: ENOXAPARIN SODIUM INJ 40 MG/0.4 ML DISP.SYRIN SUBCUT SCH (10:19)
[2019-08-22] MEDS: GABAPENTIN 100 MG CAPSULE PO SCH ×3 (10:19→17:12)
[2019-08-22] MEDS: OXYCODONE-ACETAMINOPHEN 5-325 MG TABLET PO PRN ×3 (10:32→23:19)
[2019-08-22 11:42] LABS: ANION GAP 9 (5-19); BLOOD UREA NITROGEN 13 mg/dL (7-20); CARBON DIOXIDE 24 mmol/L (22-30); CHLORIDE 106 mmol/L (98-107); GLUCOSE 247 mg/dL (75-110); POTASSIUM 3.7 mmol/L (3.6-5.0)
--- NOTE | 2019-08-22 14:43 | PDOC PROGRESS REPORT ---
Subjective Progress Note for:: 08/22/19 Subjective:: Patient reported difficulty with swallow due to sore throat over last cough of days. There is associates unproductive cough. No chest pain or difficulty with breathing. No chills or definite fever.No nausea, vomiting, or abdominal pain. Reason For Visit: DKA Physical Exam Vital Signs: Temp Pulse Resp BP Pulse Ox 98.4 F 88 16 163/87 H 95 08/22/19 11:45 08/22/19 11:45 08/22/19 11:45 08/22/19 11:45 08/22/19 11:45 Intake & Output 08/21/19 08/22/19 08/23/19 06:59 06:59 06:59 Intake Total 3000 3226 Output Total 550 Balance 3000 2676 Weight 81.647 kg 79.3 kg General appearance: PRESENT: no acute distress, well-developed, well-nourished Head exam: PRESENT: atraumatic Eye exam: PRESENT: conjunctiva pink, EOMI, PERRLA. ABSENT: scleral icterus Ear exam: PRESENT: normal external ear exam Mouth exam: PRESENT: moist Throat exam: ABSENT: post pharyngeal erythema Respiratory exam: PRESENT: clear to auscultation juan ramon Cardiovascular exam: PRESENT: RRR. ABSENT: diastolic murmur, rubs, systolic murmur Vascular exam: ABSENT: pallor GI/Abdominal exam: PRESENT: normal bowel sounds, soft. ABSENT: distended, guarding, mass, organolmegaly, rebound, tenderness Extremities exam: ABSENT: pedal edema Neurological exam: PRESENT: alert, awake, oriented to person, oriented to place, oriented to time, oriented to situation, CN II-XII grossly intact. ABSENT: motor sensory deficit Psychiatric exam: PRESENT: appropriate affect, normal mood. ABSENT: homicidal ideation, suicidal ideation Skin exam: PRESENT: dry, warm Results Laboratory Results: 08/21/19 02:02 08/22/19 10:43 08/21/19 08/22/19 08/22/19 17:11 02:13 10:43 Sodium 146.6 H 141.4 139.3 Potassium 3.4 L D 3.6 3.7 Chloride 109 H 108 H 106 Carbon Dioxide 28 D 24 24 Anion Gap 10 9 9 BUN 23 H 17 13 Creatinine 1.72 H 1.65 H 1.58 H Est GFR ( Amer) 55 L 58 L > 60 Glucose 177 H 248 H 247 H Calcium 9.7 8.9 9.0 08/21/19 08/21/19 08/21/19 01:25 01:25 01:25 Creatine Kinase 90 CK-MB (CK-2) 0.74 Troponin I 0.028 NT-Pro-B Natriuret Pep 85 Assessment & Plan - Diagnosis (1) DKA (diabetic ketoacidoses) Qualifiers: Diabetes mellitus type: type 1 Diabetes mellitus complication detail: without coma Qualified Code(s): E10.10 - Type 1 diabetes mellitus with ketoacidosis without coma Is this a current diagnosis for this admission?: Yes Plan: Improved glycemic state. Maintain on current insulin management regimen. Continue but decrease IV fluid rate to 100 ml/hr. (2) ARF (acute renal failure) Qualifiers: Acute renal failure type: unspecified Qualified Code(s): N17.9 - Acute kidney failure, unspecified Is this a current diagnosis for this admission?: Yes Plan: Continue IV fluid support. Obtain CMP in AM. (3) Leukocytosis Qualifiers: Leukocytosis type: unspecified Qualified Code(s): D72.829 - Elevated white blood cell count, unspecified Is this a current diagnosis for this admission?: Yes Plan: Obtain chest X ray PA/Lat views. Continue Augmentin therapy. Allowed use of Cephacol Lozenges for sore throat. (4) IDDM (insulin dependent diabetes mellitus) Is this a current diagnosis for this admission?: Yes Plan: Continue IV fluid support. Obtain CMP in AM. (5) Hypertension Qualifiers: Hypertension type: essential hypertension Qualified Code(s): I10 - Essential (primary) hypertension Is this a current diagnosis for this admission?: Yes Plan: Start on Amlodipine 5 mg p.o daily. Decrease IV fluid rate to 100 ml/hr. Obtain CB with diff in am. - Time Time Spent with patient: 35 or more minutes Level of Care: IMCU Medications reviewed and adjusted accordingly: Yes Anticipated discharge: Home Within: Other - Inpatient Certification Based on my medical assessment, after consideration of the patient's comorbidities, presenting symptoms, or acuity I expect that the services needed warrant INPATIENT care.: Yes I certify that my determination is in accordance with my understanding of Medicare's requirements for reasonable and necessary INPATIENT services [42 CFR 412.3e].: Yes Medical Necessity: Significant Comorbidiites Make Outpatient Treatment Too Risky, Need Close Monitoring Due to Risk of Patient Decompensation, Need For IV Fluids, Need For Continuous Telemetry Monitoring, Risk of Complication if Not Cared For in Hospital, Risk of Diagnosis Which Will Require Inpatient Eval/Care/Monitoring Post Hospital Care: D/C [employer] Documentation - Plan Summary Plan Summary: See covering attending physician orders for details about care plan.
[2019-08-22] MEDS: ACETAMINOPHEN 325 MG TABLET PO PRN (15:03)
[2019-08-22] MEDS: AMLODIPINE BESYLATE 5 MG TABLET PO SCH (15:03)
[2019-08-22 19:19] LABS: ANION GAP 8 (5-19); BLOOD UREA NITROGEN 8 mg/dL (7-20); CALCIUM 8.5 mg/dL (8.4-10.2); CARBON DIOXIDE 24 mmol/L (22-30); CHLORIDE 106 mmol/L (98-107); GLUCOSE 200 mg/dL (75-110); POTASSIUM 3.9 mmol/L (3.6-5.0)
[2019-08-22] MEDS: BUTALB/ACETAMINOPHEN/CAFFEINE 1 TAB EACH PO PRN (20:48)
[2019-08-22] MEDS ORDERED: INSULIN GLARGINE,HUM.REC.ANLOG 1,000 UNIT/10 ML VIAL (PYX) SUBCUT ONE ×3 (22:03→22:18)
[2019-08-22] MEDS: TRAZODONE HCL 50 MG TABLET PO SCH (22:23)
[2019-08-22] MEDS: QUETIAPINE FUMARATE 100 MG TABLET PO SCH (22:24)
[2019-08-22] MEDS: MIRTAZAPINE 15 MG TABLET PO SCH (22:24)
[2019-08-22] MEDS: INSULIN GLARGINE,HUM.REC.ANLOG 1,000 UNIT/10 ML VIAL SUBCUT SCH (22:36)
[2019-08-23] MEDS: NORMAL SALINE 1000 ML 1,000 ML IV PRN ×2 (03:00→14:38)
[2019-08-23 03:15] LABS: ANION GAP 7 (5-19); BLOOD UREA NITROGEN 10 mg/dL (7-20); CALCIUM 8.8 mg/dL (8.4-10.2); CARBON DIOXIDE 28 mmol/L (22-30); CHLORIDE 104 mmol/L (98-107); GLUCOSE 231 mg/dL (75-110); POTASSIUM 3.5 mmol/L (3.6-5.0)
[2019-08-23] MEDS: BENZOCAINE/MENTHOL SORE THROAT LOZENGE BUCCAL PRN ×3 (06:28→22:03)
[2019-08-23] MEDS: OXYCODONE-ACETAMINOPHEN 5-325 MG TABLET PO PRN ×4 (06:28→23:30)
[2019-08-23] MEDS: AMOXICILLIN TR/POT CLAVULANATE 500-125 MG TAB PO SCH ×3 (06:28→21:51)
[2019-08-23 07:01] LABS: ALBUMIN 3.4 g/dL (3.5-5.0); ALKALINE PHOSPHATASE 86 U/L (38-126); ANION GAP 8 (5-19); ASPARTATE AMINO TRANSFERASE 16 U/L (17-59); BILIRUBIN,DIRECT 0.1 mg/dL (0.0-0.4); BILIRUBIN,TOTAL 0.9 mg/dL (0.2-1.3); BLOOD UREA NITROGEN 10 mg/dL (7-20); CALCIUM 9.1 mg/dL (8.4-10.2); CARBON DIOXIDE 28 mmol/L (22-30); CHLORIDE 105 mmol/L (98-107); GLUCOSE 181 mg/dL (75-110); POTASSIUM 3.4 mmol/L (3.6-5.0); TOTAL PROTEIN 6.5 g/dL (6.3-8.2)
[2019-08-23 07:05] LABS: ABSOLUTE BASOPHILS # (AUTO) 0.1 10^3/uL (0.0-0.2); ABSOLUTE LYMPHOCYTES (AUTO) 1.5 10^3/uL (0.5-4.7); ABSOLUTE MONOCYTES (AUTO) 0.7 10^3/uL (0.1-1.4); ABSOLUTE NEUT (AUTO) 7.4 10^3/uL (1.7-8.2); BASOPHILS % (AUTO) 0.9 % (0-2); EOSINOPHILS % (AUTO) 0.3 % (0-6); HEMATOCRIT 41.7 % (37.9-51.0); HEMOGLOBIN 13.9 g/dL (13.5-17.0); LYMPHOCYTES % (AUTO) 15.6 % (13-45); MEAN CORPUSCULAR HEMOGLOBIN 26.8 pg (27.0-33.4); MEAN CORPUSCULAR HGB CONC 33.4 g/dL (32.0-36.0); PLATELET COUNT 222 10^3/uL (150-450); RED CELL DISTRIBUTION WIDTH 14.3 % (11.5-14.0); SEGMENTED NEUTROPHILS % (AUTO) 76.2 % (42-78); TOTAL CELLS COUNTED % (AUTO) 100 %; WHITE BLOOD COUNT 9.8 10^3/uL (4.0-10.5)
[2019-08-23 07:14] LABS: MEAN CORPUSCULAR VOLUME 80 fl (80-97)
[2019-08-23] MEDS: INSULIN LISPRO 100 UNIT/ML 3 ML VIAL SUBCUT SCH ×7 (08:25→21:53)
[2019-08-23] MEDS: AMLODIPINE BESYLATE 5 MG TABLET PO SCH (09:37)
[2019-08-23] MEDS: ENOXAPARIN SODIUM INJ 40 MG/0.4 ML DISP.SYRIN SUBCUT SCH (09:37)
[2019-08-23] MEDS: GABAPENTIN 100 MG CAPSULE PO SCH ×3 (09:37→18:34)
[2019-08-23] MEDS: CITALOPRAM HYDROBROMIDE 20 MG TABLET PO SCH (09:37)
[2019-08-23 15:15] LABS: ANION GAP 6 (5-19); BLOOD UREA NITROGEN 8 mg/dL (7-20); CALCIUM 9.2 mg/dL (8.4-10.2); CARBON DIOXIDE 30 mmol/L (22-30); CHLORIDE 104 mmol/L (98-107); GLUCOSE 125 mg/dL (75-110); POTASSIUM 3.3 mmol/L (3.6-5.0)
--- NOTE | 2019-08-23 18:04 | PDOC PROGRESS REPORT ---
Subjective Progress Note for:: 08/23/19 Subjective:: Patient reported continued difficulty with swallow due to sore throat. No chest pain or difficulty with breathing. No chills or fever. No nausea, vomiting, or abdominal pain. He reported poor p.o intake due to sore throat. Reason For Visit: DKA Physical Exam Vital Signs: Temp Pulse Resp BP Pulse Ox 99.0 F 100 16 175/100 H 97 08/23/19 16:00 08/23/19 16:00 08/23/19 16:00 08/23/19 16:00 08/23/19 16:00 Intake & Output 08/22/19 08/23/19 08/24/19 06:59 06:59 06:59 Intake Total 3226 2660 1000 Output Total 550 4555 Balance 2676 -1895 1000 Weight 79.3 kg 80.2 kg Physical Exam: General appearance: PRESENT: no acute distress, well-developed, well-nourished Head exam: PRESENT: atraumatic Eye exam: PRESENT: conjunctiva pink. ABSENT: pallor, scleral icterus Ear exam: PRESENT: normal external ear exam Mouth exam: PRESENT: moist Throat exam: ABSENT: post pharyngeal erythema Respiratory exam: PRESENT: clear to auscultation juan ramon Cardiovascular exam: PRESENT: RRR. ABSENT: diastolic murmur, rubs, systolic m urmur GI/Abdominal exam: PRESENT: normal bowel sounds, soft. ABSENT: distended, guarding, mass, organomegaly, rebound, tenderness Extremities exam: ABSENT: pedal edema Neurological exam: PRESENT: alert, awake, oriented to person, oriented to place, oriented to time, oriented to situation, CN II-XII grossly intact. ABSENT: motor sensory deficit Psychiatric exam: PRESENT: appropriate affect, normal mood. ABSENT: homicidal ideation, suicidal ideation Skin exam: PRESENT: dry, warm Results Laboratory Results: 08/23/19 06:38 08/23/19 14:45 08/22/19 08/23/19 08/23/19 18:53 02:43 06:38 WBC 9.8 RBC 5.20 Hgb 13.9 Hct 41.7 MCV 80 D MCH 26.8 L MCHC 33.4 RDW 14.3 H Plt Count 222 Seg Neutrophils % 76.2 Sodium 137.9 139.1 Potassium 3.9 3.5 L Chloride 106 104 Carbon Dioxide 24 28 Anion Gap 8 7 BUN 8 10 Creatinine 1.31 H 1.37 H Est GFR ( Amer) > 60 > 60 Glucose 200 H 231 H Calcium 8.5 8.8 Total Bilirubin AST Alkaline Phosphatase Total Protein Albumin 08/23/19 08/23/19 06:38 14:45 WBC RBC Hgb Hct MCV MCH MCHC RDW Plt Count Seg Neutrophils % Sodium 141.2 139.6 Potassium 3.4 L 3.3 L Chloride 105 104 Carbon Dioxide 28 30 Anion Gap 8 6 BUN 10 8 Creatinine 1.41 H 1.30 H Est GFR ( Amer) > 60 > 60 Glucose 181 H 125 H Calcium 9.1 9.2 Total Bilirubin 0.9 AST 16 L Alkaline Phosphatase 86 Total Protein 6.5 Albumin 3.4 L 08/21/19 07:06 Clean Catch Midstream Urine Culture - Final NO GROWTH 2 DAYS 08/21/19 08/21/19 08/21/19 01:25 01:25 01:25 Creatine Kinase 90 CK-MB (CK-2) 0.74 Troponin I 0.028 NT-Pro-B Natriuret Pep 85 Assessment & Plan - Diagnosis (1) DKA (diabetic ketoacidoses) Qualifiers: Diabetes mellitus type: type 1 Diabetes mellitus complication detail: without coma Qualified Code(s): E10.10 - Type 1 diabetes mellitus with ketoacidosis without coma Is this a current diagnosis for this admission?: Yes (2) ARF (acute renal failure) Qualifiers: Acute renal failure type: unspecified Qualified Code(s): N17.9 - Acute kidney failure, unspecified Is this a current diagnosis for this admission?: Yes (3) Leukocytosis Qualifiers: Leukocytosis type: unspecified Qualified Code(s): D72.829 - Elevated white blood cell count, unspecified Is this a current diagnosis for this admission?: Yes (4) IDDM (insulin dependent diabetes mellitus) Is this a current diagnosis for this admission?: Yes (5) Hypertension Qualifiers: Hypertension type: essential hypertension Qualified Code(s): I10 - Essential (primary) hypertension Is this a current diagnosis for this admission?: Yes Plan: Start on Losartan 50 mg po daily first dose now. Decrease IV fluid rate to 74 ml/hr. - Time Time Spent with patient: 25-34 minutes Level of Care: IMCU Medications reviewed and adjusted accordingly: Yes Anticipated discharge: Home Within: Other - Inpatient Certification Based on my medical assessment, after consideration of the patient's comorbidities, presenting symptoms, or acuity I expect that the services needed warrant INPATIENT care.: Yes I certify that my determination is in accordance with my understanding of [facility]'s requirements for reasonable and necessary INPATIENT services [42 CFR 412.3e].: Yes Medical Necessity: Significant Comorbidiites Make Outpatient Treatment Too Risky, Need Close Monitoring Due to Risk of Patient Decompensation, Need For IV Fluids, Need For Continuous Telemetry Monitoring, Risk of Complication if Not Cared For in Hospital, Risk of Diagnosis Which Will Require Inpatient Eval/Care/Monitoring Post Hospital Care: D/C [employer] Documentation - Plan Summary Plan Summary: Continue current medication management. Patient will receive potassium. Obtain Mag level for possible need of corrective replacement.
[2019-08-23] MEDS: LOSARTAN POTASSIUM 50 MG TABLET PO SCH (18:34)
[2019-08-23] MEDS: POTASSIUM CHLORIDE 20 MEQ PACKET PO SCH ×2 (18:34→21:50)
[2019-08-23 18:53] LABS: ANION GAP 6 (5-19); CARBON DIOXIDE 29 mmol/L (22-30); CHLORIDE 103 mmol/L (98-107)
[2019-08-23 19:00] LABS: BLOOD UREA NITROGEN 10 mg/dL (7-20); CALCIUM 8.9 mg/dL (8.4-10.2); GLUCOSE 168 mg/dL (75-110); POTASSIUM 3.7 mmol/L (3.6-5.0)
[2019-08-23] MEDS: QUETIAPINE FUMARATE 100 MG TABLET PO SCH (21:51)
[2019-08-23] MEDS: MIRTAZAPINE 15 MG TABLET PO SCH (21:52)
[2019-08-23] MEDS: TRAZODONE HCL 50 MG TABLET PO SCH (21:52)
[2019-08-23] MEDS: INSULIN GLARGINE,HUM.REC.ANLOG 1,000 UNIT/10 ML VIAL SUBCUT SCH (21:54)
[2019-08-23 23:38] LABS: ANION GAP 7 (5-19); BLOOD UREA NITROGEN 10 mg/dL (7-20); CALCIUM 9.2 mg/dL (8.4-10.2); CARBON DIOXIDE 28 mmol/L (22-30); CHLORIDE 103 mmol/L (98-107); GLUCOSE 176 mg/dL (75-110); POTASSIUM 3.9 mmol/L (3.6-5.0)
[2019-08-24] MEDS: ONDANSETRON 4 MG TAB.RAPDIS PO PRN ×3 (03:22→13:53)
[2019-08-24] MEDS: AMOXICILLIN TR/POT CLAVULANATE 500-125 MG TAB PO SCH ×2 (05:32→13:53)
[2019-08-24] MEDS: MAG HYDROX/AL HYDROX/SIMETH SUSP 30 ML UDCUP PO PRN ×2 (06:20→17:09)
[2019-08-24] MEDS: INSULIN LISPRO 100 UNIT/ML 3 ML VIAL SUBCUT SCH ×7 (07:43→21:21)
[2019-08-24 07:49] LABS: ABSOLUTE LYMPHOCYTES (AUTO) 1.1 10^3/uL (0.5-4.7); ABSOLUTE MONOCYTES (AUTO) 0.5 10^3/uL (0.1-1.4); BASOPHILS % (AUTO) 0.5 % (0-2); EOSINOPHILS % (AUTO) 0.5 % (0-6); HEMATOCRIT 41.7 % (37.9-51.0); HEMOGLOBIN 13.8 g/dL (13.5-17.0); LYMPHOCYTES % (AUTO) 12.7 % (13-45); MEAN CORPUSCULAR HEMOGLOBIN 26.7 pg (27.0-33.4); MEAN CORPUSCULAR VOLUME 81 fl (80-97); PLATELET COUNT 215 10^3/uL (150-450); RED BLOOD COUNT 5.15 10^6/uL (4.35-5.55); RED CELL DISTRIBUTION WIDTH 14.1 % (11.5-14.0); SEGMENTED NEUTROPHILS % (AUTO) 80.3 % (42-78); TOTAL CELLS COUNTED % (AUTO) 100 %; WHITE BLOOD COUNT 8.7 10^3/uL (4.0-10.5)
[2019-08-24 08:05] LABS: ALBUMIN 3.1 g/dL (3.5-5.0); ALKALINE PHOSPHATASE 81 U/L (38-126); ANION GAP 5 (5-19); ASPARTATE AMINO TRANSFERASE 14 U/L (17-59); BILIRUBIN,DIRECT 0.2 mg/dL (0.0-0.4); BILIRUBIN,TOTAL 0.6 mg/dL (0.2-1.3); BLOOD UREA NITROGEN 11 mg/dL (7-20); CALCIUM 8.8 mg/dL (8.4-10.2); CARBON DIOXIDE 29 mmol/L (22-30); CHLORIDE 105 mmol/L (98-107); GLUCOSE 159 mg/dL (75-110); POTASSIUM 3.6 mmol/L (3.6-5.0); TOTAL PROTEIN 6.1 g/dL (6.3-8.2)
[2019-08-24] MEDS: OXYCODONE-ACETAMINOPHEN 5-325 MG TABLET PO PRN ×3 (09:23→21:24)
[2019-08-24] MEDS: GABAPENTIN 100 MG CAPSULE PO SCH ×3 (09:23→17:08)
[2019-08-24] MEDS: NORMAL SALINE 1000 ML 1,000 ML IV PRN (09:24)
[2019-08-24] MEDS: LOSARTAN POTASSIUM 50 MG TABLET PO SCH (09:24)
[2019-08-24] MEDS: CITALOPRAM HYDROBROMIDE 20 MG TABLET PO SCH (09:24)
[2019-08-24] MEDS: AMLODIPINE BESYLATE 5 MG TABLET PO SCH (09:24)
[2019-08-24] MEDS: ENOXAPARIN SODIUM INJ 40 MG/0.4 ML DISP.SYRIN SUBCUT SCH (09:24)
[2019-08-24 13:03] LABS: ANION GAP 7 (5-19); BLOOD UREA NITROGEN 11 mg/dL (7-20); CALCIUM 8.9 mg/dL (8.4-10.2); CARBON DIOXIDE 28 mmol/L (22-30); CHLORIDE 104 mmol/L (98-107); GLUCOSE 116 mg/dL (75-110); POTASSIUM 4.1 mmol/L (3.6-5.0)
[2019-08-24 16:09] LABS: ANION GAP 6 (5-19); BLOOD UREA NITROGEN 11 mg/dL (7-20); CALCIUM 9.2 mg/dL (8.4-10.2); CARBON DIOXIDE 30 mmol/L (22-30); CHLORIDE 104 mmol/L (98-107); GLUCOSE 74 mg/dL (75-110); POTASSIUM 3.6 mmol/L (3.6-5.0)
--- NOTE | 2019-08-24 21:00 | PDOC PROGRESS REPORT ---
Subjective Progress Note for:: 08/24/19 Subjective:: Patient seen by the bedside, he complain of nausea there is no vomiting Reason For Visit: DKA Physical Exam Vital Signs: Temp Pulse Resp BP Pulse Ox 98.0 F 85 16 133/80 H 98 08/24/19 16:50 08/24/19 19:00 08/24/19 16:50 08/24/19 16:50 08/24/19 16:50 Intake & Output 08/23/19 08/24/19 08/25/19 06:59 06:59 06:59 Intake Total 2660 3920 940 Output Total 4555 2625 900 Balance -1895 1295 40 Weight 80.2 kg 80.6 kg General appearance: PRESENT: no acute distress Eye exam: PRESENT: PERRLA Respiratory exam: PRESENT: clear to auscultation juan ramon Cardiovascular exam: PRESENT: +S1, +S2 GI/Abdominal exam: PRESENT: soft Neurological exam: PRESENT: alert, CN II-XII grossly intact Results Laboratory Results: 08/24/19 07:36 08/24/19 15:21 08/23/19 08/24/19 08/24/19 22:51 07:36 07:36 WBC 8.7 RBC 5.15 Hgb 13.8 Hct 41.7 MCV 81 MCH 26.7 L MCHC 33.0 RDW 14.1 H Plt Count 215 Seg Neutrophils % 80.3 H Sodium 137.9 139.1 Potassium 3.9 3.6 Chloride 103 105 Carbon Dioxide 28 29 Anion Gap 7 5 BUN 10 11 Creatinine 1.37 H 1.35 H Est GFR ( Amer) > 60 > 60 Glucose 176 H 159 H Calcium 9.2 8.8 Total Bilirubin 0.6 AST 14 L Alkaline Phosphatase 81 Total Protein 6.1 L Albumin 3.1 L 08/24/19 08/24/19 12:18 15:21 WBC RBC Hgb Hct MCV MCH MCHC RDW Plt Count Seg Neutrophils % Sodium 138.5 139.5 Potassium 4.1 3.6 Chloride 104 104 Carbon Dioxide 28 30 Anion Gap 7 6 BUN 11 11 Creatinine 1.31 H 1.42 H Est GFR ( Amer) > 60 > 60 Glucose 116 H 74 L Calcium 8.9 9.2 Total Bilirubin AST Alkaline Phosphatase Total Protein Albumin 08/21/19 08/21/19 08/21/19 01:25 01:25 01:25 Creatine Kinase 90 CK-MB (CK-2) 0.74 Troponin I 0.028 NT-Pro-B Natriuret Pep 85 Assessment & Plan - Diagnosis (1) DKA (diabetic ketoacidoses) Qualifiers: Diabetes mellitus type: type 1 Diabetes mellitus complication detail: without coma Qualified Code(s): E10.10 - Type 1 diabetes mellitus with ketoacidosis without coma Is this a current diagnosis for this admission?: Yes Plan: Continue IV fluid therapy and other treatment (2) Acute kidney injury Is this a current diagnosis for this admission?: Yes (3) Medical non-compliance Is this a current diagnosis for this admission?: Yes - Time Time Spent with patient: 15-24 minutes
[2019-08-24] MEDS: TRAZODONE HCL 50 MG TABLET PO SCH (21:20)
[2019-08-24] MEDS: QUETIAPINE FUMARATE 100 MG TABLET PO SCH (21:20)
[2019-08-24] MEDS: MIRTAZAPINE 15 MG TABLET PO SCH (21:20)
[2019-08-24] MEDS: INSULIN GLARGINE,HUM.REC.ANLOG 1,000 UNIT/10 ML VIAL SUBCUT SCH (21:21)
[2019-08-24 23:58] LABS: ANION GAP 7 (5-19); BLOOD UREA NITROGEN 11 mg/dL (7-20); CARBON DIOXIDE 31 mmol/L (22-30); CHLORIDE 101 mmol/L (98-107); GLUCOSE 80 mg/dL (75-110); POTASSIUM 3.4 mmol/L (3.6-5.0)
[2019-08-25] MEDS: INSULIN LISPRO 100 UNIT/ML 3 ML VIAL SUBCUT SCH ×7 (07:46→22:03)
[2019-08-25] MEDS: NORMAL SALINE 1000 ML 1,000 ML IV PRN (07:57)
[2019-08-25] MEDS: AMLODIPINE BESYLATE 5 MG TABLET PO SCH (09:34)
[2019-08-25] MEDS: CITALOPRAM HYDROBROMIDE 20 MG TABLET PO SCH (09:34)
[2019-08-25] MEDS: LOSARTAN POTASSIUM 50 MG TABLET PO SCH (09:34)
[2019-08-25] MEDS: GABAPENTIN 100 MG CAPSULE PO SCH ×3 (09:34→17:13)
[2019-08-25] MEDS: ENOXAPARIN SODIUM INJ 40 MG/0.4 ML DISP.SYRIN SUBCUT SCH (09:35)
[2019-08-25 12:33] LABS: ANION GAP 8 (5-19); BLOOD UREA NITROGEN 10 mg/dL (7-20); CALCIUM 8.8 mg/dL (8.4-10.2); CARBON DIOXIDE 27 mmol/L (22-30); CHLORIDE 103 mmol/L (98-107); GLUCOSE 138 mg/dL (75-110); POTASSIUM 3.8 mmol/L (3.6-5.0)
[2019-08-25] MEDS: OXYCODONE-ACETAMINOPHEN 5-325 MG TABLET PO PRN ×2 (13:25→19:26)
--- NOTE | 2019-08-25 21:20 | PDOC PROGRESS REPORT ---
Subjective Progress Note for:: 08/25/19 Subjective:: Patient seen by the bedside he refused blood drawn today, basically he did not cooperate with the nurses , I asked him if he will be for discharge tomorrow, he is agreeable to the plan of discharge in a.m., we wiil arrange for discharge tomorrow, still complaining of nausea . Reason For Visit: DKA Physical Exam Vital Signs: Temp Pulse Resp BP Pulse Ox 98.5 F 84 16 149/93 H 97 08/25/19 16:36 08/25/19 19:00 08/25/19 16:36 08/25/19 16:36 08/25/19 16:36 Intake & Output 08/24/19 08/25/19 08/26/19 06:59 06:59 06:59 Intake Total 3920 2060 1280 Output Total 2625 900 1700 Balance 1295 1160 -420 Weight 80.6 kg General appearance: PRESENT: no acute distress Eye exam: PRESENT: PERRLA Respiratory exam: PRESENT: clear to auscultation juan ramon Cardiovascular exam: PRESENT: +S1, +S2 GI/Abdominal exam: PRESENT: soft Neurological exam: PRESENT: alert, CN II-XII grossly intact Results Laboratory Results: 08/24/19 07:36 08/25/19 11:43 08/24/19 08/25/19 23:30 11:43 Sodium 139.1 138.1 Potassium 3.4 L 3.8 Chloride 101 103 Carbon Dioxide 31 H 27 Anion Gap 7 8 BUN 11 10 Creatinine 1.44 H 1.35 H Est GFR ( Amer) > 60 > 60 Glucose 80 138 H Calcium 9.0 8.8 08/21/19 08/21/19 08/21/19 01:25 01:25 01:25 Creatine Kinase 90 CK-MB (CK-2) 0.74 Troponin I 0.028 NT-Pro-B Natriuret Pep 85 Assessment & Plan - Diagnosis (1) DKA (diabetic ketoacidoses) Qualifiers: Diabetes mellitus type: type 1 Diabetes mellitus complication detail: without coma Qualified Code(s): E10.10 - Type 1 diabetes mellitus with ketoacidosis without coma Is this a current diagnosis for this admission?: Yes Plan: Continue treatment (2) Acute kidney injury Is this a current diagnosis for this admission?: Yes (3) Medical non-compliance Is this a current diagnosis for this admission?: Yes - Time Time Spent with patient: Less than 15 minutes
--- NOTE | 2019-08-25 21:37 | PDOC DISCHARGE SUMMARY ---
Impression - Admit/DC Date/PCP Admission Date/Primary Care Provider: 08/21/19 03:34 JARON ANN MD Discharge Date: 08/26/19 - Discharge Diagnosis (1) DKA (diabetic ketoacidoses) Is this a current diagnosis for this admission?: Yes (2) Acute kidney injury Is this a current diagnosis for this admission?: Yes (3) Medical non-compliance Is this a current diagnosis for this admission?: Yes - Additional Information Referrals: JARON ANN MD [Primary Care Provider] - 09/03/19 3:00 pm Home Medications: Citalopram Hydrobromide [Celexa 40 mg Tablet] 1 tab PO DAILY 08/21/19 Gabapentin [Neurontin 100 mg Capsule] 200 mg PO TID 08/21/19 Insulin Glargine,Hum.rec.anlog [Lantus Insulin 100 Unit/1 ml 10 ml] 35 unit SUBCUT DAILY 08/21/19 Insulin Lispro [Humalog] 12 unit SQ TID 08/21/19 Mirtazapine [Remeron] 50 mg PO DAILY 08/21/19 Oxycodone HCl/Acetaminophen [Percocet 7.5-325 mg Tablet] 1 each PO Q4HP PRN 08/21/19 Quetiapine Fumarate [Seroquel] 800 mg PO TID 08/21/19 Trazodone HCl [Desyrel] 200 mg PO QPM 08/21/19 History of Present Illiness History of Present Illness: LENA SCHULZ is a 33 year old male, He has history of poor diabetes mellitus,, schizophrenia poor medication adherence, he came to the emergency room for evaluation of nausea, vomiting, hyperglycemia, in the emergency room he was found to be in diabetic ketoacidosis.Treatment for DKA was initiated in the emergency room, he was acidotic with a background of elevated anion gap and severe hyperglycemia. Patient has presented in this fashion on multiple occasions, he does not follow in the office on a regular basis, he was referred to endocrinology with the intent for him to obtain insulin pump because he has type 1 but unfortunately he never kept the appointment with the endocrinology. And I felt that is the best strategy for the effective management of his diabetes mellitus Hospital Course Hospital Course: Patient was admitted for the management of diabetes ketoacidosis, he was treated with insulin infusion, normal saline.. The etiology of the DKA is felt to be due to nonmedication adherence. He has type 1 diabetes mellitus, extremely noncompliant, I felt he will benefit from insulin pump, he was referred to endocrinology but he never kept the appointment, he has shown persistent pattern of noncompliance with his diabetes care. In the last 24 hours he refused blood drawn for any proposed. He discharged home today to continue his regular regimen Physical Exam Vital Signs: Temp Pulse Resp BP Pulse Ox 98.5 F 84 16 149/93 H 97 08/25/19 16:36 08/25/19 19:00 08/25/19 16:36 08/25/19 16:36 08/25/19 16:36 Intake & Output 08/24/19 08/25/19 08/26/19 06:59 06:59 06:59 Intake Total 3920 2060 1280 Output Total 2625 900 1700 Balance 1295 1160 -420 Weight 80.6 kg General appearance: PRESENT: no acute distress Eye exam: PRESENT: PERRLA Respiratory exam: PRESENT: clear to auscultation juan ramon Cardiovascular exam: PRESENT: +S1, +S2 GI/Abdominal exam: PRESENT: soft Neurological exam: PRESENT: alert, CN II-XII grossly intact Results Laboratory Results: WBC 8.7 10^3/uL (4.0-10.5) 08/24/19 07:36 RBC 5.15 10^6/uL (4.35-5.55) 08/24/19 07:36 Hgb 13.8 g/dL (13.5-17.0) 08/24/19 07:36 Hct 41.7 % (37.9-51.0) 08/24/19 07:36 MCV 81 fl (80-97) 08/24/19 07:36 MCH 26.7 pg (27.0-33.4) L 08/24/19 07:36 MCHC 33.0 g/dL (32.0-36.0) 08/24/19 07:36 RDW 14.1 % (11.5-14.0) H 08/24/19 07:36 Plt Count 215 10^3/uL (150-450) 08/24/19 07:36 Lymph % (Auto) 12.7 % (13-45) L 08/24/19 07:36 [place] % (Auto) 6.0 % (3-13) 08/24/19 07:36 Eos % (Auto) 0.5 % (0-6) 08/24/19 07:36 Baso % (Auto) 0.5 % (0-2) 08/24/19 07:36 Absolute Neuts (auto) 7.0 10^3/uL (1.7-8.2) 08/24/19 07:36 Absolute Lymphs (auto) 1.1 10^3/uL (0.5-4.7) 08/24/19 07:36 Absolute Monos (auto) 0.5 10^3/uL (0.1-1.4) 08/24/19 07:36 Absolute Eos (auto) 0.0 10^3/uL (0.0-0.6) 08/24/19 07:36 Absolute Basos (auto) 0.0 10^3/uL (0.0-0.2) 08/24/19 07:36 Seg Neutrophils % 80.3 % (42-78) H 08/24/19 07:36 Platelet Estimate Cancelled 08/21/19 01:25 PT 13.0 SEC (11.4-15.4) 08/21/19 01:25 INR 0.98 08/21/19 01:25 VBG pH 7.28 (7.30-7.42) L 08/21/19 01:25 VBG pCO2 36.6 mmHg (35-63) 08/21/19 01:25 VBG HCO3 16.9 mmol/L (20-32) L 08/21/19 01:25 VBG Base Excess -8.9 mmol/L 08/21/19 01:25 Sodium 138.1 mmol/L (137-145) 08/25/19 11:43 Potassium 3.8 mmol/L (3.6-5.0) 08/25/19 11:43 Chloride 103 mmol/L (98-107) 08/25/19 11:43 Carbon Dioxide 27 mmol/L (22-30) 08/25/19 11:43 Anion Gap 8 (5-19) 08/25/19 11:43 BUN 10 mg/dL (7-20) 08/25/19 11:43 Creatinine 1.35 mg/dL (0.52-1.25) H 08/25/19 11:43 Est GFR ( Amer) > 60 (>60) 08/25/19 11:43 Est GFR (MDRD) Non-Af > 60 (>60) 08/25/19 11:43 Glucose 138 mg/dL (75-110) H 08/25/19 11:43 POC Glucose 237 mg/dL (70-110) H 08/25/19 21:21 Calcium 8.8 mg/dL (8.4-10.2) 08/25/19 11:43 Phosphorus 7.6 mg/dL (2.5-4.5) H 08/21/19 01:25 Magnesium 1.8 mg/dL (1.6-2.3) 08/23/19 18:15 Total Bilirubin 0.6 mg/dL (0.2-1.3) 08/24/19 07:36 Direct Bilirubin 0.2 mg/dL (0.0-0.4) 08/24/19 07:36 Neonat Total Bilirubin Not Reportable 08/24/19 07:36 Neonat Direct Bilirubin Not Reportable 08/24/19 07:36 Neonat Indirect Bili Not Reportable 08/24/19 07:36 AST 14 U/L (17-59) L 08/24/19 07:36 ALT 9 U/L (<50) 08/24/19 07:36 Alkaline Phosphatase 81 U/L (38-126) 08/24/19 07:36 Creatine Kinase 90 U/L (55-170) 08/21/19 01:25 CK-MB (CK-2) 0.74 ng/mL (<4.55) 08/21/19 01:25 Troponin I 0.028 ng/mL 08/21/19 01:25 NT-Pro-B Natriuret Pep 85 pg/mL (<125) 08/21/19 01:25 Total Protein 6.1 g/dL (6.3-8.2) L 08/24/19 07:36 Albumin 3.1 g/dL (3.5-5.0) L 08/24/19 07:36 Amylase 57 U/L (30-110) 08/21/19 01:25 Lipase 27.3 U/L (23-300) 08/21/19 01:25 Lipase 30.5 U/L (23-300) 08/21/19 01:25 TSH 0.19 uIU/mL (0.47-4.68) L 08/21/19 01:25 Free T4 2.20 ng/dL (0.78-2.19) H 08/21/19 01:25 Urine Color COLORLESS 08/21/19 05:58 Urine Appearance CLEAR 08/21/19 05:58 Urine pH 5.0 (5.0-9.0) 08/21/19 05:58 Ur Specific [place] 1.013 08/21/19 05:58 Urine Protein 100 mg/dL (NEGATIVE) H 08/21/19 05:58 Urine Glucose (UA) >=500 mg/dL (NEGATIVE) H 08/21/19 05:58 Urine Ketones 20 mg/dL (NEGATIVE) H 08/21/19 05:58 Urine Blood SMALL (NEGATIVE) H 08/21/19 05:58 Urine Nitrite NEGATIVE (NEGATIVE) 08/21/19 05:58 Urine Bilirubin NEGATIVE (NEGATIVE) 08/21/19 05:58 Urine Urobilinogen NEGATIVE mg/dL (<2.0) 08/21/19 05:58 Ur Leukocyte Esterase NEGATIVE (NEGATIVE) 08/21/19 05:58 Urine RBC (Auto) 0 /HPF 08/21/19 05:58 Urine Mucus (Auto) RARE /LPF 08/21/19 05:58 Urine Ascorbic Acid NEGATIVE (NEGATIVE) 08/21/19 05:58 Urine Opiates Screen NEGATIVE 08/21/19 07:06 Urine Methadone Screen NEGATIVE 08/21/19 07:06 Ur Barbiturates Screen NEGATIVE 08/21/19 07:06 Ur Phencyclidine Scrn NEGATIVE 08/21/19 07:06 Ur Amphetamines Screen NEGATIVE 08/21/19 07:06 U Benzodiazepines Scrn UNCONFIRMED POSITIVE 08/21/19 07:06 Urine Cocaine Screen NEGATIVE 08/21/19 07:06 U Marijuana (THC) Screen NEGATIVE 08/21/19 07:06 Slides for Path Review Cancelled 08/21/19 01:25 08/21/19 08/21/19 01:25 01:25 CK-MB (CK-2) 0.74 Troponin I 0.028 NT-Pro-B Natriuret Pep 85 Stroke Is this a Stroke Patient?: No Acute Heart Failure - Is this a Heart Failure Patient?: No
[2019-08-25] MEDS: TRAZODONE HCL 50 MG TABLET PO SCH (22:02)
[2019-08-25] MEDS: MIRTAZAPINE 15 MG TABLET PO SCH (22:02)
[2019-08-25] MEDS: QUETIAPINE FUMARATE 100 MG TABLET PO SCH (22:03)
[2019-08-25] MEDS: INSULIN GLARGINE,HUM.REC.ANLOG 1,000 UNIT/10 ML VIAL SUBCUT SCH (22:04)
[2019-08-25] MEDS: MAG HYDROX/AL HYDROX/SIMETH SUSP 30 ML UDCUP PO PRN (23:14)
[2019-08-25] MEDS ORDERED: ONDANSETRON HCL INJ/PF 4 MG/2 ML SDV ONE (23:34)
[2019-08-25] MEDS ORDERED: ONDANSETRON HCL INJ/PF 4 MG/2 ML SDV IV PRN (23:48)
[2019-08-26] MEDS: OXYCODONE-ACETAMINOPHEN 5-325 MG TABLET PO PRN (00:01)
[2019-08-26] MEDS: INSULIN LISPRO 100 UNIT/ML 3 ML VIAL SUBCUT SCH ×4 (07:45→11:02)
--- NOTE | 2019-08-26 07:49 | EKG REPORT ---
SEVERITY:- ABNORMAL ECG - SINUS TACHYCARDIA PROBABLE LEFT ATRIAL ABNORMALITY BORDERLINE INFERIOR Q WAVES BORDERLINE R WAVE PROGRESSION, ANTERIOR LEADS NONSPECIFIC T ABNORMALITIES, DIFFUSE LEADS : Confirmed by: Brayden Silverio MD 26-Aug-2019 07:48:33
[2019-08-26 08:23] LABS: ANION GAP 9 (5-19); BLOOD UREA NITROGEN 12 mg/dL (7-20); CALCIUM 8.9 mg/dL (8.4-10.2); CARBON DIOXIDE 26 mmol/L (22-30); CHLORIDE 103 mmol/L (98-107); GLUCOSE 117 mg/dL (75-110); POTASSIUM 3.6 mmol/L (3.6-5.0)
[2019-08-26 09:13] VITALS: BP 153/100
[2019-08-26] MEDS: AMLODIPINE BESYLATE 5 MG TABLET PO SCH (09:25)
[2019-08-26] MEDS: GABAPENTIN 100 MG CAPSULE PO SCH (09:25)
[2019-08-26] MEDS: LOSARTAN POTASSIUM 50 MG TABLET PO SCH (09:25)
[2019-08-26] MEDS: ENOXAPARIN SODIUM INJ 40 MG/0.4 ML DISP.SYRIN SUBCUT SCH (09:25)
[2019-08-26] MEDS: CITALOPRAM HYDROBROMIDE 20 MG TABLET PO SCH (09:25)
== END 2019-08-26 12:11 | disposition home or self-care (01) | DRG 638 ==
LOC: ER 01:09 → EH 03:34 → 3S 16:08
PROVIDERS: ADMIT Internal Medicine; ATTEND Internal Medicine
DX: E10.10 Type 1 diabetes mellitus with ketoacidosis without coma (principal); N17.9 Acute kidney failure, unspecified; F20.9 Schizophrenia, unspecified; I25.10 Atherosclerotic heart disease of native coronary artery without angina pectoris; I10 Essential (primary) hypertension; D64.9 Anemia, unspecified; F31.9 Bipolar disorder, unspecified; F17.210 Nicotine dependence, cigarettes, uncomplicated; Z91.14 Patient's other noncompliance with medication regimen; Z79.899 Other long term (current) drug therapy; Z79.4 Long term (current) use of insulin; Z82.49 Family history of ischemic heart disease and other diseases of the circulatory system
CPT/HCPCS: 36415; 80048; 80053; 80076; 80307; 81001; 82150; 82550; 82553; 82803; 82962; 83690; 83735; 83880; 84100; 84439; 84443; 84484; 85025; 85027; 85610; 87040; 87086; 93005; 93010; 96361; 96374; 99291; J1650; J1815; J2405; J3490; J7030; J7042; J7050; S0119

== ENCOUNTER 2019-10-02 12:51 | Emergency (ER) | payer MEDICAID ==
[2019-10-02 12:55] VITALS: BP 151/103
--- NOTE | 2019-10-02 13:02 | ER Document Report ---
ED Medical Screen (RME) - General Chief Complaint: Suicidal Ideation Stated Complaint: SUICIDAL IDEATION Time Seen by Provider: 10/02/19 12:59 Primary Care Provider: JARON ANN MD [Primary Care Provider] - Follow up as needed TRAVEL OUTSIDE OF THE [place] IN LAST 30 DAYS: No - HPI Notes: 10/02/19 13:01 Patient is a 33-year-old male with a history of diabetes, hypertension, depression, schizophrenia who presents complaining of suicidal ideations with plan to slit his throat. Patient states that he was discharged from mental health facility this past Saturday, but his thoughts have not been improving. He also has auditory hallucinations. No homicidal ideations. He has been taking his medicines daily. No fever, chest pain, or shortness of breath. I have treated and performed a rapid initial assessment of this patient. A comprehensive ED assessment and evaluation of the patient, analysis of test results and completion of medical decision making process will be conducted by additional ED providers. PHYSICAL EXAMINATION: GENERAL: Well-appearing, well-nourished and in no acute distress. A&Ox4. Answers questions appropriately. - Related Data Allergies/Adverse Reactions: No Known Allergies Allergy (Verified 07/29/19 01:31) Past Medical History - Social History Family history: Reviewed & Not Pertinent - Past Medical History Cardiac Medical History: Reports: Hx Heart Attack - May 2017., Hx Hyp ertension Denies: Hx Congestive Heart Failure, Hx DVT, Hx Hypercholesterolemia, Hx Pulmonary Embolism Pulmonary Medical History: Reports: Hx Asthma - as child Denies: Hx COPD, Hx Sleep Apnea Neurological Medical History: Reports: Hx Migraine. Denies: Hx Seizures Endocrine Medical History: Reports: Hx Diabetes Mellitus Type 1. Denies: Hx Diabetes Mellitus Type 2, Hx Hyperthyroidism, Hx Hypothyroidism Renal/ Medical History: Denies: Hx Peritoneal Dialysis GI Medical History: Denies: Hx Cirrhosis, Hx Gastroesophageal Reflux Disease, Hx Hepatitis Musculoskeltal Medical History: Denies Hx Arthritis Psychiatric Medical History: Reports: Hx Anxiety, Hx Bipolar Disorder, Hx Depression, Hx Schizophrenia Infectious Medical History: Denies: Hx C-Diff, Hx Hepatitis, Hx MRSA Past Surgical History: Reports: Hx Appendectomy, Hx Oral Surgery - wisdom teeth, Other - [place] teeth extraction - Immunizations Hx Diphtheria, Pertussis, Tetanus Vaccination: Yes Physical Exam - Vital signs Vitals: Temp Pulse Resp BP Pulse Ox 98.2 F 116 H 18 151/103 H 100 10/02/19 12:54 10/02/19 12:54 10/02/19 12:54 10/02/19 12:54 10/02/19 12:54 Course - Vital Signs Vital signs: Temp Pulse Resp BP Pulse Ox 98.2 F 116 H 18 151/103 H 100 10/02/19 12:54 10/02/19 12:54 10/02/19 12:54 10/02/19 12:54 10/02/19 12:54 Doctor's Discharge - Discharge Referrals: JARON ANN MD [Primary Care Provider] - Follow up as needed
[2019-10-02 13:54] LABS: ABSOLUTE BASOPHILS # (AUTO) 0.1 10^3/uL (0.0-0.2); ABSOLUTE EOSINOPHILS # (AUTO) 0.1 10^3/uL (0.0-0.6); ABSOLUTE LYMPHOCYTES (AUTO) 1.1 10^3/uL (0.5-4.7); ABSOLUTE MONOCYTES (AUTO) 0.4 10^3/uL (0.1-1.4); ABSOLUTE NEUT (AUTO) 10.8 10^3/uL (1.7-8.2); BASOPHILS % (AUTO) 0.5 % (0-2); EOSINOPHILS % (AUTO) 0.4 % (0-6); HEMATOCRIT 46.8 % (37.9-51.0); HEMOGLOBIN 15.3 g/dL (13.5-17.0); MEAN CORPUSCULAR HEMOGLOBIN 27.3 pg (27.0-33.4); MEAN CORPUSCULAR HGB CONC 32.8 g/dL (32.0-36.0); MEAN CORPUSCULAR VOLUME 83 fl (80-97); MONOCYTES % (AUTO) 3.5 % (3-13); PLATELET COUNT 320 10^3/uL (150-450); RED BLOOD COUNT 5.63 10^6/uL (4.35-5.55); RED CELL DISTRIBUTION WIDTH 15.3 % (11.5-14.0); SEGMENTED NEUTROPHILS % (AUTO) 86.6 % (42-78); TOTAL CELLS COUNTED % (AUTO) 100 %; WHITE BLOOD COUNT 12.4 10^3/uL (4.0-10.5)
[2019-10-02 13:57] LABS: APPEARANCE,URINE CLEAR; BILIRUBIN,URINE NEGATIVE (NEGATIVE); COLOR,URINE YELLOW; GLUCOSE, URINE >=500 mg/dL (NEGATIVE); KETONES,URINE NEGATIVE (NEGATIVE); LEUKOCYTE ESTERASE,URINE NEGATIVE (NEGATIVE); NITRITE,URINE NEGATIVE (NEGATIVE); PROTEIN,URINE >=500 mg/dL (NEGATIVE); URINE SPECIFIC GRAVITY 1.012; UROBILINOGEN,URINE NEGATIVE mg/dL (<2.0)
[2019-10-02 14:13] LABS: ALBUMIN 4.2 g/dL (3.5-5.0); ALKALINE PHOSPHATASE 110 U/L (38-126); ANION GAP 8 (5-19); ASPARTATE AMINO TRANSFERASE 18 U/L (17-59); BILIRUBIN,DIRECT 0.1 mg/dL (0.0-0.4); BILIRUBIN,TOTAL 0.4 mg/dL (0.2-1.3); BLOOD UREA NITROGEN 17 mg/dL (7-20); CALCIUM 10.3 mg/dL (8.4-10.2); CARBON DIOXIDE 32 mmol/L (22-30); CHLORIDE 99 mmol/L (98-107); GLUCOSE 331 mg/dL (75-110); POTASSIUM 4.3 mmol/L (3.6-5.0); TOTAL PROTEIN 7.4 g/dL (6.3-8.2); URINE AMPHETAMINES SCREEN NEGATIVE; URINE BARBITURATES SCREEN NEGATIVE; URINE COCAINE SCREEN NEGATIVE; URINE MARIJUANA (THC) SCREEN NEGATIVE; URINE METHADONE SCREEN NEGATIVE; URINE PHENCYCLIDINE SCREEN NEGATIVE
[2019-10-02 14:17] LABS: ACETAMINOPHEN < 10 ug/mL (10-30); ALCOHOL < 10 mg/dL (NONE DETECTED); SALICYLATE < 1.0 mg/dL (2.0-20.0)
[2019-10-02 14:18] LABS: URINE BENZODIAZEPINES SCREEN UNCONFIRMED POSITIVE
[2019-10-02] MEDS ORDERED: ALPRAZOLAM 0.5 MG TABLET PO ONE (15:16)
[2019-10-02] MEDS ORDERED: NORMAL SALINE 1000 ML 1,000 ML IV ONE (15:46)
--- NOTE | 2019-10-02 15:50 | PSYCHOLOGICAL NOTE ---
Psych Note - Psych Note Date seen by psych provider: 10/02/19 Time seen by psych provider: 14:50 Psych Note: Reason for consult: SI Patient is a 33 year old male who presents to ED via POV endorsing suicidal ideation. Patient was brought to ED by his transition social worker. Patient was released from [facility] on Saturday. Patient was last seen by behavioral health in 2016 with same etiology. Patient reports increasing anxiety. Patient states he did not know he was being discharged from [facility] until "they came and told me the same day." Patient states he lives alone and "does not feel safe at home" because of his SI with the plan to slice his throat with a knife. Patient reports command auditory hallucinations that tell him to "harm himself." Patient states these symptoms began 2 days ago, which coincides with his release from [facility]. Patient reports mental health diagnosis of "severe depression" and Schizophrenia. Patient reports medication compliance with his Celexa and Seroquel. Patient states she does not believe the Celexa is helping his mental health concerns. Patient is linked with [facility] for mental health services. Patient is linked with [facility]. Clinician notes no observable signs of anxiety. Patient's ACTT RN joined with patient's permission. Clinician stated to ACTT RN that patient requested placement at a group or assisted living type living facility. Patient stated, "that's not what I said." Clinician stated you requested inpatient hospitalization due to you not "feeling safe at home." Clinician informed patient the ED is an acute setting with no direct admit privileges to outside agencies/facilities. Clinician offered to contact [facility] for bed availability. Patient's ACTT RN stated, "he's suicidal and you're discharging him." ACTT RN is requesting IVC and transfer to [facility]. ACTT RN states hospital will be liable if "he kills himself." Clinician reminded patient of his extensive history with the behavioral health team; with patient presenting today with the same concerns. Patient became agitated, uncovered himself from the bed, and requested his clothing. Patient stated, "I told you [speaking to the ACTT RN] they wouldn't help me." Clinician reaffirmed to patient and ACTT RN that patient is refusing treatment, which in this case is [facility]. Patient is alert and oriented to person, place, time and circumstance. Mood is blunted with flat affect. Patient endorses suicidal ideation with a plan to slice his throat with a knife. There is no observed behavior that suggests patient is responding to internal stimuli. Patient reports experiencing command auditory hallucinations to harm himself. Eye contact is fair. Intellectual ability appears to be within average range. Attention and concentration are good. Insight, judgment and impulse control are currently poor. Impression/Plan: Patient is cleared from acute psychiatric services. Patient endorses suicidal ideation with a plan to slice his throat with a knife. Patient denies homicidal ideation. There is no observed behavior that suggests patient is responding to internal stimuli. Patient was offered placement at [facility], which he refused. Patient's ACTT RN confirmed that [place] would be an acceptable placement and could facilitate placement to other facility, if needed. Patient had ample opportunity to discuss medication concerns with staff at [facility]. Patient refused additional assistance. Patient left AMA with ACTT RN. Dr. Waller was consulted on the care and management of this patient; attending physician is in agreement with recommendations and disposition.
--- NOTE | 2019-10-02 16:32 | ER Document Report ---
ED General - General Chief Complaint: Suicidal Ideation Stated Complaint: SUICIDAL IDEATION Time Seen by Provider: 10/02/19 12:59 Primary Care Provider: JARON ANN MD [Primary Care Provider] - Follow up as needed Notes: 33-year-old male presents with suicidal ideation with plan to slit his throat. Patient was recently discharged from [facility] on Saturday. Patient states he is compliant with his medication. Patient states he is also having auditory hallucinations that are telling him to harm himself. Patient also states he is feeling a little anxious. Patient denies any chest pain, abdominal pain, nausea/vomiting, fever. TRAVEL OUTSIDE OF THE [place] IN LAST 30 DAYS: No - Related Data Allergies/Adverse Reactions: No Known Allergies Allergy (Verified 07/29/19 01:31) Past Medical History - General Information source: Patient - Social History Smoking Status: Current Every Day Smoker Family History: Reviewed & Not Pertinent, DM, Hypertension Patient has suicidal ideation: Yes Patient has homicidal ideation: No - Past Medical History Cardiac Medical History: Reports: Hx Heart Attack - May 2017., Hx Hypertension Denies: Hx Congestive Heart Failure, Hx DVT, Hx Hypercholesterolemia, Hx Pulmonary Embolism Pulmonary Medical History: Reports: Hx Asthma - as child Denies: Hx COPD, Hx Sleep Apnea Neurological Medical History: Reports: Hx Migraine. Denies: Hx Seizures Endocrine Medical History: Reports: Hx Diabetes Mellitus Type 1. Denies: Hx Diabetes Mellitus Type 2, Hx Hyperthyroidism, Hx Hypothyroidism Renal/ Medical History: Denies: Hx Peritoneal Dialysis GI Medical History: Denies: Hx Cirrhosis, Hx Gastroesophageal Reflux Disease, Hx Hepatitis Musculoskeletal Medical History: Denies Hx Arthritis Psychiatric Medical History: Reports: Hx Anxiety, Hx Bipolar Disorder, Hx Depression, Hx Schizophrenia Infectious Medical History: Denies: Hx C-Diff, Hx Hepatitis, Hx MRSA Past Surgical History: Reports: Hx Appendectomy, Hx Oral Surgery - wisdom teeth, Other - [place] teeth extraction - Immunizations Hx Diphtheria, Pertussis, Tetanus Vaccination: Yes Hx Pneumococcal Vaccination: 09/16/00 Review of Systems - Review of Systems Notes: Constitutional: Negative for fever. HENT: Negative for sore throat. Eyes: Negative for visual changes. Cardiovascular: Negative for chest pain. Respiratory: Negative for shortness of breath. Gastrointestinal: Negative for abdominal pain, vomiting or diarrhea. Genitourinary: Negative for dysuria. Musculoskeletal: Negative for back pain. Skin: Negative for rash. Neurological: Negative for headaches, weakness or numbness. Psych: Positive for auditory hallucinations and SI. Negative for HI. 10 point ROS negative except as marked above and in HPI. Physical Exam - Vital signs Vitals: Temp Pulse Resp BP Pulse Ox 98.2 F 116 H 18 151/103 H 100 10/02/19 12:54 10/02/19 12:54 10/02/19 12:54 10/02/19 12:54 10/02/19 12:54 - Notes Notes: GENERAL: Well-appearing, well-nourished and in no acute distress. HEAD: Atraumatic, normocephalic. EYES: Extraocular movements intact, sclera anicteric, conjunctiva are normal. NECK: Normal range of motion, supple without lymphadenopathy or JVD. LUNGS: Breath sounds clear to auscultation bilaterally and equal. No wheezes rales or rhonchi. HEART: Regular rate and rhythm without murmurs, rubs or gallops. ABDOMEN: Soft, nontender. No guarding, no rebound. No masses appreciated. EXTREMITIES: Normal range of motion, no pitting or edema. No clubbing or cyanosis. NEUROLOGICAL: Cranial nerves II through XII grossly intact. Normal speech, normal gait. PSYCH: Suicidal ideation. Auditory hallucinations. SKIN: Warm, Dry, normal turgor, no rashes or lesions noted. Course - Re-evaluation Re-evalutation: 10/02/19 33-year-old presents for suicidal ideation with plan to slit his throat. Patient is also stating that he is having auditory hallucinations which are telling him to harm himself. Patient was recently discharged on Saturday from [facility] and states he is compliant with his medications. Labs and urine were ordered to medically clear this patient for psych consult. Without informing me or the charge nurse, psych team allowed the patient to sign out AGAINST MEDICAL ADVICE. I was not informed of this and was unable to speak to the patient prior to this occurring. Charge was informed. 10/02/19 16:42 We were able to contact the pt. He will attempt to come back to the ER. 10/02/19 16:53 Florentin Hedrick, psych team, called and states she knows this pt very well and states that he was recently in [place] for 10 days and was discharged. Psych team is now informing me that they had cleared him from psych. - Vital Signs Vital signs: Temp Pulse Resp BP Pulse Ox 98.2 F 116 H 18 151/103 H 100 10/02/19 12:54 10/02/19 12:54 10/02/19 12:54 10/02/19 12:54 10/02/19 12:54 - Laboratory Result Diagrams: 10/02/19 13:15 10/02/19 13:15 Laboratory results interpreted by me: 10/02/19 10/02/19 10/02/19 13:15 13:15 13:15 WBC 12.4 H RBC 5.63 H RDW 15.3 H Lymph % (Auto) 9.0 L Absolute Neuts (auto) 10.8 H Seg Neutrophils % 86.6 H Carbon Dioxide 32 H Creatinine 1.84 H Est GFR ( Amer) 51 L Est GFR (MDRD) Non-Af 42 L Glucose 331 H Calcium 10.3 H Urine Protein >=500 H Urine Glucose (UA) >=500 H Urine Ascorbic Acid 20 H Salicylates < 1.0 L Acetaminophen < 10 L Discharge - Discharge Clinical Impression: Suicidal ideation Condition: Fair Disposition: AGAINST MEDICAL ADVICE Referrals: JARON ANN MD [Primary Care Provider] - Follow up as needed
--- NOTE | 2019-10-02 21:33 | EKG REPORT ---
SEVERITY:- ABNORMAL ECG - SINUS TACHYCARDIA PROBABLE INFERIOR INFARCT, AGE INDETERMINATE NONSPECIFIC T ABNORMALITIES, ANT-LAT LEADS : Confirmed by: Arin Drummond MD 02-Oct-2019 21:32:31
== END 2019-10-02 14:50 | disposition left against medical advice (07) ==
LOC: ER 12:51
DX: R45.851 Suicidal ideations (principal); R44.0 Auditory hallucinations; F41.9 Anxiety disorder, unspecified; Z79.899 Other long term (current) drug therapy; F17.200 Nicotine dependence, unspecified, uncomplicated; I25.2 Old myocardial infarction; I10 Essential (primary) hypertension; J45.909 Unspecified asthma, uncomplicated; E10.9 Type 1 diabetes mellitus without complications
CPT/HCPCS: 36415; 80053; 80307; 81001; 82962; 85025; 93005; 93010; 99285

== ENCOUNTER 2019-10-02 18:00 | Emergency (ER) | payer MEDICAID ==
[2019-10-02] MEDS ORDERED: NORMAL SALINE 1000 ML 1,000 ML IV ONE (18:07)
[2019-10-02] MEDS ORDERED: ALPRAZOLAM 0.5 MG TABLET PO ONE (18:33)
--- NOTE | 2019-10-02 18:33 | ER Document Report ---
ED General - General Chief Complaint: Suicidal Ideation Stated Complaint: SUICIDAL IDEATION Time Seen by Provider: 10/02/19 18:02 Primary Care Provider: JARON ANN MD [Primary Care Provider] - Follow up as needed Notes: Patient was called back to the ER. Patient states he still is feeling suicidal with a plan to slit his throat. Patient states he is still having auditory hallucinations that are telling him to hurt himself. Patient states "I felt like I was being brushed off by the psychiatric team." Patient states he wants to go to a long-term facility and was offered [facility] by psychiatric team. Patient states he declined [facility] due to "I heard they only keep you for a few days and I feel like I need longer term care." Patient denies any chest pain, dyspnea, nausea/vomiting/diarrhea, fever. TRAVEL OUTSIDE OF THE [place] IN LAST 30 DAYS: No - Related Data Allergies/Adverse Reactions: No Known Allergies Allergy (Verified 07/29/19 01:31) Past Medical History - Social History Smoking Status: Current Every Day Smoker Family History: Reviewed & Not Pertinent, DM, Hypertension - Past Medical History Cardiac Medical History: Reports: Hx Heart Attack - May 2017., Hx Hypertension Denies: Hx Congestive Heart Failure, Hx DVT, Hx Hypercholesterolemia, Hx Pulmonary Embolism Pulmonary Medical History: Reports: Hx Asthma - as child Denies: Hx COPD, Hx Sleep Apnea Neurological Medical History: Reports: Hx Migraine. Denies: Hx Seizures Endocrine Medical History: Reports: Hx Diabetes Mellitus Type 1. Denies: Hx Diabetes Mellitus Type 2, Hx Hyperthyroidism, Hx Hypothyroidism Renal/ Medical History: Denies: Hx Peritoneal Dialysis GI Medical History: Denies: Hx Cirrhosis, Hx Gastroesophageal Reflux Disease, Hx Hepatitis Musculoskeletal Medical History: Denies Hx Arthritis Psychiatric Medical History: Reports: Hx Anxiety, Hx Bipolar Disorder, Hx Depression, Hx Schizophrenia Infectious Medical History: Denies: Hx C-Diff, Hx Hepatitis, Hx MRSA Past Surgical History: Reports: Hx Appendectomy, Hx Oral Surgery - wisdom teeth, Other - [place] teeth extraction - Immunizations Hx Diphtheria, Pertussis, Tetanus Vaccination: Yes Hx Pneumococcal Vaccination: 09/16/00 Review of Systems - Review of Systems Notes: Constitutional: Negative for fever. HENT: Negative for sore throat. Eyes: Negative for visual changes. Cardiovascular: Negative for chest pain. Respiratory: Negative for shortness of breath. Gastrointestinal: Negative for abdominal pain, vomiting or diarrhea. Genitourinary: Negative for dysuria. Musculoskeletal: Negative for back pain. Skin: Negative for rash. Neurological: Negative for headaches, weakness or numbness. Psych: Positive for SI with plan and auditory hallucinations. Negative for HI. 10 point ROS negative except as marked above and in HPI. Physical Exam - Notes Notes: GENERAL: Well-appearing, well-nourished and in no acute distress. HEAD: Atraumatic, normocephalic. EYES: Extraocular movements intact, sclera anicteric, conjunctiva are normal. NECK: Normal range of motion, supple without lymphadenopathy or JVD. EXTREMITIES: Normal range of motion, no pitting or edema. No clubbing or cyanosis. NEUROLOGICAL: Cranial nerves II through XII grossly intact. Normal speech, normal gait. PSYCH: Depressed mood. SKIN: Warm, Dry, normal turgor, no rashes or lesions noted. Course - Re-evaluation Re-evalutation: 10/02/19 33-year-old male presents for suicidal ideation with plan to slit his throat. Patient also endorses auditory hallucinations that are telling him to h arm himself. Patient has had self-harm in his past. Patient states he has cut his wrists in the past. Patient earlier left AMA but was convinced to return. Due to his suicidal ideation with plan to slit his throat and auditory hallucinations I do not feel that patient is safe to go home. Patient is currently IVC. Earlier lab work indicated that patient had mild ALEXA and a liter bolus fluid was ordered. This was not given and so was reordered. Pt is medically cleared for psych once he received 1 L of NS IVP. Review of records reveal that pt has not been evaluated by the psych team since 12/2016. Discharge - Discharge Clinical Impression: Suicidal ideation Condition: Stable Disposition: PSYCH HOSP/UNIT Referrals: JARON ANN MD [Primary Care Provider] - Follow up as needed
[2019-10-03 06:45] LABS: ABSOLUTE BASOPHILS # (AUTO) 0.1 10^3/uL (0.0-0.2); ABSOLUTE EOSINOPHILS # (AUTO) 0.2 10^3/uL (0.0-0.6); ABSOLUTE LYMPHOCYTES (AUTO) 1.5 10^3/uL (0.5-4.7); ABSOLUTE MONOCYTES (AUTO) 0.4 10^3/uL (0.1-1.4); ABSOLUTE NEUT (AUTO) 5.4 10^3/uL (1.7-8.2); BASOPHILS % (AUTO) 1.1 % (0-2); EOSINOPHILS % (AUTO) 2.3 % (0-6); HEMATOCRIT 41.9 % (37.9-51.0); HEMOGLOBIN 13.9 g/dL (13.5-17.0); LYMPHOCYTES % (AUTO) 19.6 % (13-45); MEAN CORPUSCULAR HEMOGLOBIN 27.4 pg (27.0-33.4); MEAN CORPUSCULAR HGB CONC 33.1 g/dL (32.0-36.0); MEAN CORPUSCULAR VOLUME 83 fl (80-97); MONOCYTES % (AUTO) 5.5 % (3-13); PLATELET COUNT 261 10^3/uL (150-450); RED BLOOD COUNT 5.07 10^6/uL (4.35-5.55); SEGMENTED NEUTROPHILS % (AUTO) 71.5 % (42-78); TOTAL CELLS COUNTED % (AUTO) 100 %; WHITE BLOOD COUNT 7.6 10^3/uL (4.0-10.5)
[2019-10-03 07:06] LABS: ALBUMIN 3.6 g/dL (3.5-5.0); ALKALINE PHOSPHATASE 96 U/L (38-126); ANION GAP 8 (5-19); ASPARTATE AMINO TRANSFERASE 16 U/L (17-59); BILIRUBIN,DIRECT 0.3 mg/dL (0.0-0.4); BILIRUBIN,TOTAL 0.4 mg/dL (0.2-1.3); BLOOD UREA NITROGEN 17 mg/dL (7-20); CALCIUM 9.4 mg/dL (8.4-10.2); CARBON DIOXIDE 29 mmol/L (22-30); CHLORIDE 102 mmol/L (98-107); GLUCOSE 310 mg/dL (75-110); POTASSIUM 4.6 mmol/L (3.6-5.0); TOTAL PROTEIN 6.8 g/dL (6.3-8.2)
[2019-10-03 07:07] LABS: ALCOHOL < 10 mg/dL (NONE DETECTED)
[2019-10-03 07:08] LABS: ACETAMINOPHEN < 10 ug/mL (10-30); SALICYLATE < 1.0 mg/dL (2.0-20.0)
[2019-10-03] MEDS ORDERED: NORMAL SALINE 1000 ML 1,000 ML IV ONE ×2 (08:16→11:55)
[2019-10-03] MEDS ORDERED: ALPRAZOLAM 0.5 MG TABLET PO ONE (09:06)
[2019-10-03 11:32] LABS: APPEARANCE,URINE CLEAR; BILIRUBIN,URINE NEGATIVE (NEGATIVE); COLOR,URINE STRAW; GLUCOSE, URINE >=500 mg/dL (NEGATIVE); KETONES,URINE 20 mg/dL (NEGATIVE); LEUKOCYTE ESTERASE,URINE NEGATIVE (NEGATIVE); NITRITE,URINE NEGATIVE (NEGATIVE); PROTEIN,URINE 100 mg/dL (NEGATIVE); URINE SPECIFIC GRAVITY 1.013; UROBILINOGEN,URINE NEGATIVE mg/dL (<2.0)
[2019-10-03] MEDS ORDERED: INSULIN REG, HUMAN 100 UNIT/ML 3 ML VIAL (PYX) IV ONE (11:54)
[2019-10-03 12:01] LABS: URINE AMPHETAMINES SCREEN NEGATIVE; URINE BARBITURATES SCREEN NEGATIVE; URINE COCAINE SCREEN NEGATIVE; URINE MARIJUANA (THC) SCREEN NEGATIVE; URINE METHADONE SCREEN NEGATIVE; URINE PHENCYCLIDINE SCREEN NEGATIVE
[2019-10-03 12:04] LABS: URINE BENZODIAZEPINES SCREEN UNCONFIRMED POSITIVE
--- NOTE | 2019-10-03 13:57 | ER Document Report ---
Doctor's Note Notes: 10/03/19 13:57 Evaluated pt. Pt is to be discharged with APS to [facility]. Pt has no complaints. Gait normal. Nontoxic well appearing.
[2019-10-03 15:18] VITALS: BP 142/84
--- NOTE | 2019-10-03 21:14 | PSYCHOLOGICAL NOTE ---
Psych Note - Psych Note Date seen by psych provider: 10/03/19 Time seen by psych provider: 13:30 Psych Note: Reason for Consult: SI Patient is a 33-year-old male who reports to ED via POV. Patient was last seen and cleared by behavioral health team on 10/02/2019. Clinician spoke at length with patient's APS fitter hand Estelle ([phone]). Patient has an open APS case due to self neglect. Sas Administrator states states that she has been in contact with patient every day since discharge from [facility], and patient did not endorse SI until Saturday. Sas Administrator states that ACTT RN is exasperating and reinforcing patient's mental health concerns by demanding inpatient hospitalization and eluded to other concerns that fitter hand on which she would not elaborate. Sas Administrator reports she has requested current ACTT RN be removed from case. Sas Administrator states patient frequently sits in the house in the dark alone. Clinician discussed the triangulation that patient was attempting with providers. APS fitter hand was in agreement that [place] was an appropriate next level of care. Patient was initially not receptive to clinician. After being discharged yesterday, patient expressed a belief that clinician was not attempting to help him. Patient stated what happened in 2017 (patient's frequent ED visits for same etiology) had no bearing on today. Clinician attempted to explain, however patient asked clinician to leave the room. APS fitter hand and clinician spoke with patient together. Clinician notes cooperative demeanor. APS fitter hand informed patient that [place] [facility] was an appropriate next level of care. Patient was again informed there were no continuous churn buttermaker placement options available that meet patient's demands. Patient was challenged when he offered incongruent narratives. Clinician discussed the need for patient to take responsibility for his own care and not to rely on others to do things for him that he is able to do for himself. Discussed patient is responsible for himself, not others. Discussed band aids over the problem versus developing action plans for care. Discussed how isolation and avoidance breed depression. Patient was receptive. Clinician notes patient smiling and laughing when APS and clinician offer tough love. Clinician notes somewhat childlike mannerisms (smile and hide his face with the blanket) when APS fitter hand and clinician would offer supportive encouragement. Patient, initially, refused any placement that was not continuous churn buttermaker is suggestive of an attempt for secondary gain with the motive of other's taking care of him. Patient stated he would call his and she could take him somewhere for help. It was explained to patietn by clinician and APS fitter hand that was his decision, and that he is refusing appropriate treatment, again. Patient was offered [place] again (4th time). Patient agreed. Patient consented to have referral faxed for acceptance. Patient was alert and oriented to person, place, time and situation. Mood was normal with congruent affect. Patient is not demonstrating any behaviours indicating response to internal stimuli as evidenced by fair eye contact, answering questions appropriately when addressed, and the ability to express needs and wants. Thought processes were linear and organized. Conversational speech was within normal limits for rate, tone and prosody. Intellectual abilities are estimated to be average. attention and concentration are fair. Insight, judgment and impulse control were fair. Impression/Plan: Patient is recommended for rescind of IVC and is cleared from acute psychiatric services. Patient is not demonstrating any behaviors indicating response to internal stimuli as evidenced by good eye contact, normal conversational speech, and has linear and organized thought processes. Patient is able to verbalize thoughts and needs in a logical manner. Patient has multiple social service resources in place. Patient has an APS fitter hand, SAVANNAH RN, and [facility] fitter hand that are all simultaneously involved in patient's care. Patient accepted voluntary placement at [facility]. Plan is for clinician to facilitate voluntary placement at [place]. APS fitter hand assisted patient to [facility]. Dr. Waller was consulted on the care and management of this patient; attending physician is in agreement with recommendations.
== END 2019-10-03 14:15 | disposition home or self-care (01) ==
LOC: ER 18:00
DX: R45.851 Suicidal ideations (principal); R44.0 Auditory hallucinations; F17.200 Nicotine dependence, unspecified, uncomplicated; I25.2 Old myocardial infarction; J45.909 Unspecified asthma, uncomplicated; E10.9 Type 1 diabetes mellitus without complications
CPT/HCPCS: 99284; 96360; 96361; 36415; 82962; 80307 ×4; 85025; 80053; 81001; J3490 ×2; J1815; J7030 ×2

== ENCOUNTER 2019-10-09 22:15 | Emergency (ER) | payer MEDICAID ==
--- NOTE | 2019-10-09 22:23 | ER Document Report ---
ED Medical Screen (RME) - General Chief Complaint: Psych Problem Stated Complaint: IVC Time Seen by Provider: 10/09/19 22:19 Primary Care Provider: JARON ANN MD [Primary Care Provider] - Follow up as needed Mode of Arrival: Ambulatory Information source: Law Enforcement Notes: 33-year-old male with history of diabetes, bipolar, schizophrenia, depression pr esents emergency department accompanied by [employer] for IVC. Patient reports suicidal ideations planning on cutting his throat or drinking bleach. Reports he is hearing voices. I have greeted and performed a rapid initial assessment of this patient. A comprehensive ED assessment and evaluation of the patient, analysis of test results and completion of the medical decision making process will be conducted by additional ED providers. TRAVEL OUTSIDE OF THE [place] IN LAST 30 DAYS: No - Related Data Allergies/Adverse Reactions: No Known Allergies Allergy (Verified 07/29/19 01:31) Past Medical History - Social History Family history: Reviewed & Not Pertinent - Past Medical History Cardiac Medical History: Reports: Hx Heart Attack - May 2017., Hx Hypertension Denies: Hx Congestive Heart Failure, Hx DVT, Hx Hypercholesterolemia, Hx Pulmonary Embolism Pulmonary Medical History: Reports: Hx Asthma - as child Denies: Hx COPD, Hx Sleep Apnea Neurological Medical History: Reports: Hx Migraine. Denies: Hx Seizures Endocrine Medical History: Reports: Hx Diabetes Mellitus Type 1. Denies: Hx Diabetes Mellitus Type 2, Hx Hyperthyroidism, Hx Hypothyroidism Renal/ Medical History: Denies: Hx Peritoneal Dialysis GI Medical History: Denies: Hx Cirrhosis, Hx Gastroesophageal Reflux Disease, Hx Hepatitis Musculoskeltal Medical History: Denies Hx Arthritis Psychiatric Medical History: Reports: Hx Anxiety, Hx Bipolar Disorder, Hx Depression, Hx Schizophrenia Infectious Medical History: Denies: Hx C-Diff, Hx Hepatitis, Hx MRSA Past Surgical History: Reports: Hx Appendectomy, Hx Oral Surgery - wisdom teeth, Other - [place] teeth extraction - Immunizations Hx Diphtheria, Pertussis, Tetanus Vaccination: Yes Doctor's Discharge - Discharge Referrals: JARON ANN MD [Primary Care Provider] - Follow up as needed
[2019-10-09] MEDS ORDERED: TRAZODONE HCL 50 MG TABLET PO ONE (22:52)
[2019-10-09] MEDS ORDERED: QUETIAPINE FUMARATE 100 MG TABLET PO ONE (22:53)
[2019-10-09] MEDS ORDERED: LORAZEPAM 1 MG TABLET PO ONE (22:54)
--- NOTE | 2019-10-09 22:59 | ER Document Report ---
ED General <JUS NAJERA - Last Filed: 10/10/19 11:50> - General Mode of Arrival: Ambulatory Information source: Patient, Law Enforcement TRAVEL OUTSIDE OF THE [place] IN LAST 30 DAYS: No - HPI Onset: Other - 2 days Onset/Duration: Sudden Quality of pain: No pain Severity: Mild Pain Level: 1 Associated symptoms: None Exacerbated by: Denies Similar symptoms previously: Yes Recently seen / treated by doctor: Yes <GRIS NAQVI JR - Last Filed: 10/11/19 14:21> - General Chief Complaint: Psych Problem Stated Complaint: IVC Time Seen by Provider: 10/09/19 22:19 Primary Care Provider: [facility] [Outside] - Follow up as needed JARON ANN MD [Primary Care Provider] - Follow up as needed Notes: 33-year-old black male arrives by police escort to room #45 with chief complaint of suicidal thoughts and ideations for 2 days. He has been off of his schizophrenia and depression medicines for 2 days as well. He reports he has a gun in his house and he will use it to shoot himself in the head. A large knife was taken off of his person and given to security as well as while at and other valuables. Patient reports he also has type 1 diabetes hypertension neuropathy esophageal stricture chronic back pain migraines hypokalemia anemia and takes 30 of Lantus nightly and 10 of Humalog with each meal. Patient reports he is been a diabetic since he was 10 years old. He says he takes Celexa trazodone Seroquel as well as multiple other medicines. He would like to talk to his for 2 minutes prior to coming in by telephone and I agreed to this. I let the nursing staff know about this as well. Is well-known to Sherlyn DE LEON cheese production supervisor being here multiple times patient reports she lives next to [place]. Officer advises the patient was in route to [facility] (GRIS NAQVI JR) - Related Data Allergies/Adverse Reactions: No Known Allergies Allergy (Verified 07/29/19 01:31) Past Medical History - General Information source: Patient, Law Enforcement - Social History Smoking Status: Current Every Day Smoker Cigarette use (# per day): Yes Chew tobacco use (# tins/day): No Smoking Education Provided: Yes Frequency of alcohol use: Occasional Drug Abuse: Cocaine Family History: Reviewed & Not Pertinent, DM, Hypertension Patient has suicidal ideation: No Patient has homicidal ideation: No - Past Medical History Cardiac Medical History: Reports: Hx Heart Attack - May 2017., Hx Hypertension Denies: Hx Congestive Heart Failure, Hx DVT, Hx Hypercholesterolemia, Hx Pulmonary Embolism Pulmonary Medical History: Reports: Hx Asthma - as child Denies: Hx COPD, Hx Sleep Apnea Neurological Medical History: Reports: Hx Migraine. Denies: Hx Seizures Endocrine Medical History: Reports: Hx Diabetes Mellitus Type 1. Denies: Hx Diabetes Mellitus Type 2, Hx Hyperthyroidism, Hx Hypothyroidism Renal/ Medical History: Denies: Hx Peritoneal Dialysis GI Medical History: Denies: Hx Cirrhosis, Hx Gastroesophageal Reflux Disease, Hx Hepatitis Musculoskeletal Medical History: Denies Hx Arthritis Psychiatric Medical History: Reports: Hx Anxiety, Hx Bipolar Disorder, Hx Depression, Hx Schizophrenia Infectious Medical History: Denies: Hx C-Diff, Hx Hepatitis, Hx MRSA Past Surgical History: Reports: Hx Appendectomy, Hx Oral Surgery - wisdom teeth, Other - [place] teeth extraction - Immunizations Hx Diphtheria, Pertussis, Tetanus Vaccination: Yes Hx Pneumococcal Vaccination: 09/16/00 <GRIS NAQVI JR - Last Filed: 10/11/19 14:21> Review of Systems - Review of Systems Constitutional: No symptoms reported EENT: No symptoms reported Cardiovascular: No symptoms reported Respiratory: No symptoms reported Gastrointestinal: No symptoms reported Genitourinary: No symptoms reported Male Genitourinary: No symptoms reported Musculoskeletal: No symptoms reported Skin: No symptoms reported Hematologic/Lymphatic: No symptoms reported Neurological/Psychological: Depression, Suicidal ideation <GRIS NAQVI JR - Last Filed: 10/11/19 14:21> Physical Exam - Vital signs Interpretation: Hypertensive - General General appearance: Anxious - HEENT Head: Normocephalic Eyes: Normal Conjunctiva: Normal Cornea: Normal Extraocular movements intact: Yes Eyelashes: Normal Pupils: PERRL Pharynx: Normal Neck: Normal - Respiratory Respiratory status: No respiratory distress Chest status: Nontender Breath sounds: Normal Chest palpation: Normal - Cardiovascular Rhythm: Regular Heart sounds: Normal auscultation Murmur: No Friction rub: No Tyrone's crunch: No - Abdominal Inspection: Normal Distension: No distension Bowel sounds: Normal Tenderness: Nontender Organomegaly: No organomegaly - Back Back: Tender - Extremities General upper extremity: Normal inspection General lower extremity: Normal inspection - Neurological Neuro grossly intact: Yes Cognition: Normal Orientation: AAOx4 [place] Coma Scale Eye Opening: Spontaneous Mely Coma Scale Verbal: Oriented Mely Coma Scale Motor: Obeys Commands [place]ut[place] Coma Scale Total: 15 Speech: Normal Cranial nerves: Normal Cerebellar coordination: Normal - Psychological Associated symptoms: Anxious - Skin Skin Temperature: Warm Skin Moisture: Dry <GRIS NAQVI JR - Last Filed: 10/11/19 14:21> - Vital signs Vitals: Temp Pulse Resp BP Pulse Ox 97.9 F 97 17 172/121 H 100 10/09/19 22:19 10/09/19 22:19 10/09/19 22:19 10/09/19 22:19 10/09/19 22:19 Course - Laboratory Result Diagrams: 10/09/19 23:05 10/09/19 23:05 <JUS NAJERA - Last Filed: 10/10/19 11:50> - Laboratory Result Diagrams: 10/09/19 23:05 10/09/19 23:05 <GRIS NAQVI JR - Last Filed: 10/11/19 14:21> - Vital Signs Vital signs: Temp Pulse Resp BP Pulse Ox 98.0 F 82 20 168/89 H 99 10/10/19 04:05 10/10/19 04:05 10/10/19 04:05 10/10/19 04:05 10/10/19 04:05 - Laboratory Laboratory results interpreted by me: 10/09/19 10/09/19 10/10/19 23:05 23:05 01:00 WBC 11.0 H RDW 15.6 H Chloride 97 L Creatinine 1.94 H Est GFR ( Amer) 48 L Est GFR (MDRD) Non-Af 40 L Glucose 180 H POC Glucose Total Protein 8.4 H Urine Protein >=500 H Urine Glucose (UA) 150 H Urine Ascorbic Acid 20 H Salicylates < 1.0 L Acetaminophen < 10 L 10/10/19 10/10/19 09:20 12:55 WBC RDW Chloride Creatinine Est GFR ( Amer) Est GFR (MDRD) Non-Af Glucose POC Glucose 142 H 213 H Total Protein Urine Protein Urine Glucose (UA) Urine Ascorbic Acid Salicylates Acetaminophen Critical Care Note - Critical Care Note Total time excluding time spent on procedures (mins): 90 <GRIS NAQVI JR - Last Filed: 10/11/19 14:21> - Critical Care Note Comments: Patient was placed in room 45 by police captain senior and I evaluated the patient there. From written reports it appears he was evaluated by a mental health team (GRIS NAQVI JR) Discharge <JUS NAJERA - Last Filed: 10/10/19 11:50> <GRIS NAQVI JR - Last Filed: 10/11/19 14:21> - Discharge Clinical Impression: Suicidal ideations, IDDM (insulin dependent diabetes mellitus) Hypertension Qualifiers: Hypertension type: unspecified Qualified Code(s): I10 - Essential (primary) hypertension Depression Qualifiers: Depression Type: unspecified Qualified Code(s): F32.9 - Major depressive disorder, single episode, unspecified Condition: Good Disposition: HOME, SELF-CARE Additional Instructions: You have been evaluated by both medical and behavioral health teams for suicidal ideation and substance abuse and have been deemed appropriate for discharge. While you were in the Emergency Department you received the following services: medical, psychiatric/psychological, pharmaceutical, dietary, nursing, area safety manager and security, environmental in addition to psychoeducation and resources/referrals. You are encouraged to engage in therapeutic services such as CBT or DBT to address your interpretation of your environment, understand your triggers and to build your positive coping skills (this would be provided through outpatient services). You have a higher level of outpatient services through [facility]. If [facility] determines you would benefit from a mcc or other higher therapeutic intervention, they must submit the referral since they are your clinical home. Unfortunately, this is not a service the [facility] behavioral health team can facilitate since we provide acute psychiatric services and the goal in the ED is to stabilize the acute crisis. DEPRESSION: Your evaluation reveals that you have mental depression. While symptoms may be vague, they often include disturbance of sleep, fatigue, loss of appetite, and general loss of interest in life. While depression may be a side effect of drugs, or a reaction to a major change in your life, many cases have no known cause. If depression is acute, and related to a major loss in your life, you can expect it to clear completely with time. If you have been depressed a long time, are prone to repeated bouts of depression or low mood, or have been thinking of suicide, get help. Depression can be treated with anti-depressant medication and counselling. Long-term depression will often take a few weeks to clear, even with appropriate medication. Follow-up care is important. SUICIDAL IDEATION: Suicidal ideation is a common medical term for thoughts about suicide, which may be as detailed as a formulated plan, without the suicidal act itself. Although most people who undergo suicidal ideation do not commit suicide, some go on to make suicide attempts. The range of suicidal ideation varies greatly fr om fleeting to detailed planning, role playing, and unsuccessful attempts. While thoughts about suicide are common, most people do not carry out serious actions to commit suicide. Based upon your evaluation and discussion with you, we do not believe you are currently at risk to act upon your thoughts of suicide. You have agreed to return to the Emergency Department, at any time, if you feel inclined to act upon your suicidal thoughts. FOLLOW-UP CARE: If you have been referred to a physician for follow-up care, call the physicians office for an appointment as you were instructed or within the next two days. If you experience worsening or a significant change in your symptoms, notify the physician immediately or return to the Emergency Department at any time for re-evaluation. Referrals: JARON ANN MD [Primary Care Provider] - Follow up as needed [facility] [Outside] - Follow up as needed
[2019-10-09] MEDS ORDERED: AMLODIPINE BESYLATE 10 MG TABLET PO ONE (23:04)
[2019-10-09 23:26] LABS: ABSOLUTE BASOPHILS # (AUTO) 0.2 10^3/uL (0.0-0.2); ABSOLUTE EOSINOPHILS # (AUTO) 0.1 10^3/uL (0.0-0.6); ABSOLUTE LYMPHOCYTES (AUTO) 2.9 10^3/uL (0.5-4.7); ABSOLUTE MONOCYTES (AUTO) 0.9 10^3/uL (0.1-1.4); BASOPHILS % (AUTO) 1.7 % (0-2); EOSINOPHILS % (AUTO) 1.3 % (0-6); HEMATOCRIT 42.4 % (37.9-51.0); HEMOGLOBIN 14.7 g/dL (13.5-17.0); LYMPHOCYTES % (AUTO) 25.9 % (13-45); MEAN CORPUSCULAR HEMOGLOBIN 28.7 pg (27.0-33.4); MEAN CORPUSCULAR HGB CONC 34.8 g/dL (32.0-36.0); MEAN CORPUSCULAR VOLUME 83 fl (80-97); PLATELET COUNT 319 10^3/uL (150-450); RED BLOOD COUNT 5.14 10^6/uL (4.35-5.55); RED CELL DISTRIBUTION WIDTH 15.6 % (11.5-14.0); SEGMENTED NEUTROPHILS % (AUTO) 63.1 % (42-78); TOTAL CELLS COUNTED % (AUTO) 100 %
[2019-10-09 23:46] LABS: ALBUMIN 4.7 g/dL (3.5-5.0); ALKALINE PHOSPHATASE 94 U/L (38-126); ANION GAP 13 (5-19); ASPARTATE AMINO TRANSFERASE 28 U/L (17-59); BILIRUBIN,DIRECT 0.3 mg/dL (0.0-0.4); BILIRUBIN,TOTAL 0.3 mg/dL (0.2-1.3); BLOOD UREA NITROGEN 17 mg/dL (7-20); CALCIUM 9.9 mg/dL (8.4-10.2); CARBON DIOXIDE 30 mmol/L (22-30); CHLORIDE 97 mmol/L (98-107); GLUCOSE 180 mg/dL (75-110); POTASSIUM 4.3 mmol/L (3.6-5.0); TOTAL PROTEIN 8.4 g/dL (6.3-8.2)
[2019-10-09 23:48] LABS: ACETAMINOPHEN < 10 ug/mL (10-30); ALCOHOL < 10 mg/dL (NONE DETECTED); SALICYLATE < 1.0 mg/dL (2.0-20.0)
[2019-10-10 01:20] LABS: APPEARANCE,URINE CLEAR; BILIRUBIN,URINE NEGATIVE (NEGATIVE); COLOR,URINE YELLOW; GLUCOSE, URINE 150 mg/dL (NEGATIVE); KETONES,URINE NEGATIVE (NEGATIVE); LEUKOCYTE ESTERASE,URINE NEGATIVE (NEGATIVE); NITRITE,URINE NEGATIVE (NEGATIVE); PROTEIN,URINE >=500 mg/dL (NEGATIVE); URINE SPECIFIC GRAVITY 1.011; UROBILINOGEN,URINE NEGATIVE mg/dL (<2.0)
[2019-10-10 01:49] LABS: URINE AMPHETAMINES SCREEN NEGATIVE; URINE BARBITURATES SCREEN NEGATIVE; URINE BENZODIAZEPINES SCREEN NEGATIVE; URINE COCAINE SCREEN NEGATIVE; URINE MARIJUANA (THC) SCREEN NEGATIVE; URINE METHADONE SCREEN NEGATIVE; URINE PHENCYCLIDINE SCREEN NEGATIVE
[2019-10-10 05:59] VITALS: BP 168/89
--- NOTE | 2019-10-10 10:46 | EKG REPORT ---
SEVERITY:- ABNORMAL ECG - SINUS RHYTHM NONSPECIFIC T ABNORMALITIES, DIFFUSE LEADS : Confirmed by: Brayden Silverio MD 10-Oct-2019 10:46:12
--- NOTE | 2019-10-10 11:46 | PSYCHOLOGICAL NOTE ---
Psych Note - Psych Note Date seen by psych provider: 10/10/19 Time seen by psych provider: 08:00 Psych Note: Reason for Consult: IVC Patient arrived under IVC petition submitted by [facility] supervisor counseling and guidance Orquidea Faye for Suicidal ideation with a "plan to slit throat or drink bleach, hearing voices commanding him to harm himself, not sleeping or eating." Petition was served on 10/09/2019 at 2219. Patient reports to clinician that he was taken to [facility] but they refused him. He reports he wanted to stay inpatient and felt safe at [place] but he is now here. He confirms he currently feels safe and states he had suicidal ideation with thoughts to "slit my throat, take pills or not taking my insulin." Clinician notes IVC paperwork indicated concern the patient was not sleeping however the patient needed to be awoken for evaluation. Patient is noted to have eaten breakfast with no difficulties; this was also a noted concern in the petition. Patient has a long history of reporting auditory hallucinations and has been evaluated by the [facility] team here at [facility] on numerous occasions. Patient has never demonstrated signs of responding to internal stimuli during previous evaluation and again today continues to demonstrate organized linear thought processes. He maintains eye contact, has normal conversational speech rate tone and prosody. Patient was reportedly discharged from [facility] on Saturday (09/29/2019) after a 10 day hospitalization[address] [facility] documentation per [facility] identifies the patient as malingering and upon discharge from inpatient services will report active suicidal ideation in an attempt to sabotage discharge. This behaviour has been seen at [facility] and local facilities. Patient presented to [facility] on 10/02/2019 with suicidal ideation he reported started at discharge from [place]. He was found to not meet IVC criteria; he presented with chronic passive suicidal ideation, with no history to support probable intent, which is true to past and current etiology. During that visit (10/02/2019), the patient became upset after learning inpatient psychiatric treatment was not an appropriate level of care and signed out AMA from [facility] prior to being seen by the medical team. The patient returned voluntarily on 10/02/2019 upon request from [facility] medical staff due to not being evaluated medically and continued to report passive suicidal ideation with plan to cut his throat (this is a frequent report from patient). [facility] coordinated with the patient's ACTT and [facility] APS worker for his plan of care which resulted in the patient voluntarily going to [facility] for placement. The patient was at [facility] from 10/03/2019 until 10/07/2019. He was discharged from [facility] with a plan to voluntarily admit to [facility] and was being transported by [facility] (Clinician notes the patient's ACTT wanted the patient to go to [facility] for services). Upon arrival to [facility] (10/08/2019) the patient was denied due to the patient just being at [facility] and [facility]. The patient's ACTT reportedly drove the patient immediately back to [facility] for voluntary readmission. This was denied due the belief the patient is at baseline and inpatient psychiatric treatment would not be therapeutically appropriate. The patient became upset and left but returned later in the evening via [facility] and was placed under IVC petition. Patient continues to present baseline for today's (10/10/2019) evaluation and denies engaging in any attempts. There is no documented history of the patient attempting suicide or engaging in suicidal gestures, he has a well documented history of making suicidal comments and threats. He consistently reports he will cut his throat and other plans such as drinking bleach and run into traffic. This is well documented from [facility] visits going back to 2017. Patient has a history of noncompliance with both his medical and outpatient mental health services. Per [facility], when the patient is inpatient he will not engage in therapeutic services such as group sessions. Impression/Plan: At this time, the patient is recommended for rescind of 24 hour petition for evaluation and is cleared from acute psychiatric services. Patient continues to attempt to use inpatient psychiatric treatment inappropriately and it is not clinically appropriate for the patient. He has been inpatient to [facility] and [facility] this month and has attempted placement through both [facility] and [facility]. Going inpatient at this time would re- enforce the patient's maladaptive coping skills. The patient should engage in therapeutic services such as CBT or DBT to address his interpretation of his environment, understand his triggers and to build his positive coping skills (this would be provided through outpatient services). He has a higher level of outpatient services through [facility]. If they ([facility]) determine the patient would benefit from a fdc or other higher therapeutic intervention, they must submit the referral since they are his clinical home. Unfortunately, this is not a service the [facility] behavioral health team can facilitate since we provide acute psychiatric services and the goal in the ED is to stabilize the acute crisis (which appears to have been done since patient is at baseline). Dr. Waller was consulted on the care and management of this patient; attending physician is in agreement with recommendation and disposition. please note the patient has a document history by [facility] and other facilities ([facility]) of acting out behaviorally and reporting suicidal ideation upon discharge in an attempt of sabotaging his discharges
--- NOTE | 2019-10-10 13:12 | ER Document Report ---
Doctor's Note Notes: 10/10/19 S: 33-year-old male was brought into the emergency department last night for suicidal ideations with intent to slit his throat. Apparently this gentleman is well-known in our emergency department for passive SI and has never attempted. He has actually just recently gotten out of [facility]. He attempted to voluntarily readmit himself to [facility] last night but the provider felt like he was at his baseline. Apparently he went home and then the police brought him back to [place] where the patient stated that he was feeling suicidal and wanted to slit his throat. Behavioral team is seeing him this morning and are concerned that patient is using resources inappropriately and do not feel that inpatient behavioral health admission will benefit this patient. Plan will be for him to follow-up very closely outpatient. Is noted that he is a diabetic and he typically takes insulin. His blood sugars have been fairly stable overnight but he did have one that was over 200 and insulin was offered to the patient. However the patient decided he would like to leave prior to insulin being given. He states that he has no HI or hallucinations. He states that he continues to have passive SI but is at his baseline. O: Constitution: Alert, oriented resting with eyes closed on stretcher Cardiac: Regular rate and rhythm, no murmurs, rubs, gallops Lungs: Clear to auscultation bilaterally, no wheezes rhonchi or rales Abdomen: Nontender soft nondistended Skin: No rash, warm, dry Psych: Denies HI, hallucinations. Patient states that he has passive SI which is at his normal A/P: Discussed the patient with behavioral health and they feel as if he may be malingering and using inpatient behavioral health services inappropriately. Apparently the patient always states that he is suicidal and plans to slit his throat but has never had any such intent. He was just recently discharged for malingering from [facility]. He attempted to get into [facility] last night twice and on the second time he was sent over to the emergency department for his SI. His IVC papers have been rescinded today and he has done well since last night. I attempted to give the patient a small dose of insulin but patient declined and decided to leave the emergency department prior to discharge papers being given to him.
[2019-10-10] MEDS ORDERED: INSULIN REG, HUMAN 100 UNIT/ML 3 ML VIAL (PYX) SUBCUT ONE (13:33)
== END 2019-10-10 13:52 | disposition home or self-care (01) ==
LOC: ER 22:15
DX: R45.851 Suicidal ideations (principal); F32.9 Major depressive disorder, single episode, unspecified; F20.9 Schizophrenia, unspecified; E10.9 Type 1 diabetes mellitus without complications; I10 Essential (primary) hypertension; Z79.4 Long term (current) use of insulin; Z79.899 Other long term (current) drug therapy; F17.210 Nicotine dependence, cigarettes, uncomplicated; I25.2 Old myocardial infarction
CPT/HCPCS: 93005; 99285; 36415; 82962; 80307 ×4; 85025; 80053; 81001; 93010; J3490 ×2

== ENCOUNTER 2019-10-20 14:42 | Inpatient (IN) | payer MEDICAID ==
[2019-10-20] MEDS ORDERED: NORMAL SALINE 1000 ML 1,000 ML IV ONE (15:53)
--- NOTE | 2019-10-20 16:11 | ER Document Report ---
ED General - General Chief Complaint: High Blood Sugar Stated Complaint: BLOOD SUGAR ISSUE/NAUSEA Time Seen by Provider: 10/20/19 15:54 Primary Care Provider: JARON ANN MD [Primary Care Provider] - Follow up as needed Notes: Patient is a 33-year-old -[place] male with type 1 diabetes who presents to the ER today with a chief complaint of suspected elevated blood pressure for unknown duration. Patient is a poor historian. He presents by EMS stating he just feels generalized malaise. Denies any focal pains or problems. States that he has been in DKA in the past and this feels similar. Reports he checked his blood sugar at home and on average it runs "normal". States that he is typically when the 100s or 200s after question provocation. He states EMS hung a liter of fluids and Accu-Chek him on the way here, meter read "high". He denies any other pain, complaints or concerns at this time. TRAVEL OUTSIDE OF THE [place] IN LAST 30 DAYS: No - Related Data Allergies/Adverse Reactions: No Known Allergies Allergy (Verified 10/20/19 15:28) Past Medical History - Social History Smoking Status: Current Every Day Smoker Chew tobacco use (# tins/day): No Frequency of alcohol use: None Drug Abuse: None Family History: Reviewed & Not Pertinent, DM, Hypertension Patient has suicidal ideation: No Patient has homicidal ideation: No - Past Medical History Cardiac Medical History: Reports: Hx Heart Attack - May 2017., Hx Hypertension Denies: Hx Congestive Heart Failure, Hx DVT, Hx Hypercholesterolemia, Hx Pulmonary Embolism Pulmonary Medical History: Reports: Hx Asthma - as child Denies: Hx COPD, Hx Sleep Apnea Neurological Medical History: Reports: Hx Migraine. Denies: Hx Seizures Endocrine Medical History: Reports: Hx Diabetes Mellitus Type 1. Denies: Hx Diabetes Mellitus Type 2, Hx Hyperthyroidism, Hx Hypothyroidism Renal/ Medical History: Denies: Hx Peritoneal Dialysis GI Medical History: Denies: Hx Cirrhosis, Hx Gastroesophageal Reflux Disease, Hx Hepatitis Musculoskeletal Medical History: Denies Hx Arthritis Psychiatric Medical History: Reports: Hx Anxiety, Hx Bipolar Disorder, Hx Depression, Hx Schizophrenia Infectious Medical History: Denies: Hx C-Diff, Hx Hepatitis, Hx MRSA Past Surgical History: Reports: Hx Appendectomy, Hx Oral Surgery - wisdom teeth, Other - [place] teeth extraction - Immunizations Hx Diphtheria, Pertussis, Tetanus Vaccination: Yes Hx Pneumococcal Vaccination: 09/16/00 Review of Systems - Review of Systems Constitutional: Malaise -: Yes All other systems reviewed and negative Physical Exam - Vital signs Vitals: Temp Pulse Resp BP Pulse Ox 99.4 F 114 H 19 162/98 H 99 10/20/19 15:00 10/20/19 15:00 10/20/19 15:00 10/20/19 15:00 10/20/19 15:00 - General General appearance: Appears well, Alert In distress: None - HEENT Head: Normocephalic, Atraumatic Eyes: Normal Pupils: PERRL Ears: Normal External canal: Normal Tympanic membrane: Normal Nasal: Normal Mouth/Lips: Normal Mucous membranes: Normal, Moist Pharynx: Normal Neck: Normal, Supple - Respiratory Respiratory status: No respiratory distress Chest status: Nontender Breath sounds: Normal Chest palpation: Normal - Cardiovascular Rhythm: Regular Heart sounds: Normal auscultation Murmur: No - Abdominal Inspection: Normal Distension: No distension Bowel sounds: Normal Tenderness: Nontender Organomegaly: No organomegaly - Extremities General upper extremity: Normal inspection, Nontender, Normal color, Normal ROM, Normal temperature General lower extremity: Normal inspection, Nontender, Normal color, Normal ROM, Normal temperature, Normal weight bearing. No: All's sign - Neurological Neuro grossly intact: Yes Cognition: Normal Orientation: AAOx4 [place] Coma Scale Eye Opening: Spontaneous Mely Coma Scale Verbal: Oriented Mely Coma Scale Motor: Obeys Commands [place] Coma Scale Total: 15 Speech: Normal Motor strength normal: LUE, RUE, LLE, RLE Sensory: Normal - Psychological Associated symptoms: Normal affect, Normal mood - Skin Skin Temperature: Warm Skin Moisture: Dry Skin Color: Normal Course - Re-evaluation Re-evalutation: 10/20/19 20:09 Reevaluation at this time. Patient's blood sugar is 435 upon Accu-Chek. He is received 10 units of insulin IV and 10 subcu. He received a total of nearly 3 L normal saline from EMS and from our 2 L here. Patient is in no acute distress at this time. He does not feel comfortable going home despite his sugar decreasing significantly. He requested I call and speak with his PCP Dr. Ricarda muñoz. I called and spoke with him, Dr. Ann has agreed to admit the patient for uncontrolled diabetes at this time. He will be admitted under his service, Dr. Ann will place admission orders. Patient stable for admission at this time. - Vital Signs Vital signs: Temp Pulse Resp BP Pulse Ox 99.4 F 114 H 16 162/98 H 99 10/20/19 15:00 10/20/19 15:00 10/20/19 17:00 10/20/19 15:00 10/20/19 17:00 - Laboratory Result Diagrams: 10/20/19 17:11 10/20/19 17:11 Laboratory results interpreted by me: 10/20/19 10/20/19 10/20/19 16:40 17:11 17:11 RDW 14.1 H Lymph % (Auto) 8.3 L Seg Neutrophils % 86.4 H Sodium 129.3 L Potassium 5.3 H Chloride 94 L Creatinine 1.65 H Est GFR ( Amer) 58 L Est GFR (MDRD) Non-Af 48 L Glucose 818 H* POC Glucose Total Protein 6.2 L Albumin 3.4 L Urine Protein 30 H Urine Glucose (UA) >=500 H Urine Ketones TRACE H 10/20/19 19:58 RDW Lymph % (Auto) Seg Neutrophils % Sodium Potassium Chloride Creatinine Est GFR ( Amer) Est GFR (MDRD) Non-Af Glucose POC Glucose 435 H* Total Protein Albumin Urine Protein Urine Glucose (UA) Urine Ketones Discharge - Discharge Clinical Impression: Uncontrolled diabetes mellitus Qualifiers: Diabetes mellitus type: other specified (including LUANA) Glycemic state: with hyperglycemia Qualified Code(s): E13.65 - Other specified diabetes mellitus with hyperglycemia Condition: Serious Disposition: ADMITTED INPATIENT Admitting Provider: Isael Unit Admitted: Telemetry Referrals: JARON ANN MD [Primary Care Provider] - Follow up as needed
[2019-10-20 17:26] LABS: VENOUS BLOOD BASE EXCESS 1.9 mmol/L; VENOUS BLOOD PCO2 55.7 mmHg (35-63); VENOUS BLOOD PH 7.34 (7.30-7.42)
[2019-10-20 17:50] LABS: ABSOLUTE BASOPHILS # (AUTO) 0.1 10^3/uL (0.0-0.2); ABSOLUTE LYMPHOCYTES (AUTO) 0.6 10^3/uL (0.5-4.7); ABSOLUTE MONOCYTES (AUTO) 0.3 10^3/uL (0.1-1.4); ABSOLUTE NEUT (AUTO) 6.1 10^3/uL (1.7-8.2); BASOPHILS % (AUTO) 0.9 % (0-2); HEMATOCRIT 42.9 % (37.9-51.0); HEMOGLOBIN 14.2 g/dL (13.5-17.0); LYMPHOCYTES % (AUTO) 8.3 % (13-45); MEAN CORPUSCULAR HEMOGLOBIN 28.1 pg (27.0-33.4); MEAN CORPUSCULAR HGB CONC 33.2 g/dL (32.0-36.0); MEAN CORPUSCULAR VOLUME 85 fl (80-97); MONOCYTES % (AUTO) 4.4 % (3-13); PLATELET COUNT 256 10^3/uL (150-450); RED BLOOD COUNT 5.07 10^6/uL (4.35-5.55); RED CELL DISTRIBUTION WIDTH 14.1 % (11.5-14.0); SEGMENTED NEUTROPHILS % (AUTO) 86.4 % (42-78); TOTAL CELLS COUNTED % (AUTO) 100 %
[2019-10-20 18:02] LABS: ALBUMIN 3.4 g/dL (3.5-5.0); ALKALINE PHOSPHATASE 104 U/L (38-126); ANION GAP 9 (5-19); ASPARTATE AMINO TRANSFERASE 25 U/L (17-59); BILIRUBIN,DIRECT 0.1 mg/dL (0.0-0.4); BILIRUBIN,TOTAL 0.7 mg/dL (0.2-1.3); BLOOD UREA NITROGEN 17 mg/dL (7-20); CALCIUM 8.6 mg/dL (8.4-10.2); CARBON DIOXIDE 26 mmol/L (22-30); CHLORIDE 94 mmol/L (98-107); POTASSIUM 5.3 mmol/L (3.6-5.0); TOTAL PROTEIN 6.2 g/dL (6.3-8.2)
[2019-10-20 18:12] LABS: GLUCOSE 818 mg/dL (75-110)
[2019-10-20] MEDS ORDERED: INSULIN REG, HUMAN 100 UNIT/ML 3 ML VIAL (PYX) SUBCUT ONE (18:15)
[2019-10-20] MEDS ORDERED: INSULIN REG, HUMAN 100 UNIT/ML 3 ML VIAL (PYX) IV ONE (18:16)
[2019-10-20] MEDS ORDERED: ACETAMINOPHEN 325 MG TABLET PO ONE (18:23)
[2019-10-20] MEDS: NORMAL SALINE 1000 ML 1,000 ML IV PRN ×2 (18:32→19:35)
[2019-10-20 19:07] LABS: APPEARANCE,URINE CLEAR; BILIRUBIN,URINE NEGATIVE (NEGATIVE); COLOR,URINE COLORLESS; GLUCOSE, URINE >=500 mg/dL (NEGATIVE); KETONES,URINE TRACE mg/dL (NEGATIVE); LEUKOCYTE ESTERASE,URINE NEGATIVE (NEGATIVE); NITRITE,URINE NEGATIVE (NEGATIVE); PROTEIN,URINE 30 mg/dL (NEGATIVE); URINE SPECIFIC GRAVITY 1.018; UROBILINOGEN,URINE NEGATIVE mg/dL (<2.0)
[2019-10-20] MEDS ORDERED: GLUCAGON,HUMAN RECOMB 1 MG INJ IM PRN (22:42)
[2019-10-20] MEDS ORDERED: DEXTROSE 50%-WATER 25 GM/50 ML DISP.SYRIN IV PRN ×2 (22:42)
[2019-10-20] MEDS ORDERED: DEXTROSE 40% GEL 15 GM TUBE PO PRN ×2 (22:42)
[2019-10-20] MEDS ORDERED: MIRTAZAPINE PO SCH (22:45)
[2019-10-20] MEDS ORDERED: TRAZODONE HCL 50 MG TABLET PO ONE (23:00)
[2019-10-21 00:15] LABS: CREATINE KINASE MB 0.52 ng/mL (<4.55)
[2019-10-21 00:23] LABS: TROPONIN I < 0.012 ng/mL
[2019-10-21] MEDS: QUETIAPINE FUMARATE 100 MG TABLET PO SCH ×2 (00:40→22:09)
[2019-10-21] MEDS: GABAPENTIN 100 MG CAPSULE PO SCH ×4 (00:41→22:08)
[2019-10-21] MEDS: OXYCODONE-ACETAMINOPHEN 5-325 MG TABLET PO PRN ×3 (00:44→20:40)
[2019-10-21] MEDS: NORMAL SALINE 1000 ML 1,000 ML IV PRN ×4 (00:46→22:15)
[2019-10-21 01:05] LABS: PHOSPHORUS 3.1 mg/dL (2.5-4.5)
[2019-10-21 01:23] LABS: URINE AMPHETAMINES SCREEN NEGATIVE; URINE BARBITURATES SCREEN NEGATIVE; URINE BENZODIAZEPINES SCREEN NEGATIVE; URINE COCAINE SCREEN NEGATIVE; URINE MARIJUANA (THC) SCREEN NEGATIVE; URINE METHADONE SCREEN NEGATIVE; URINE PHENCYCLIDINE SCREEN NEGATIVE
[2019-10-21 01:44] LABS: INTERNATIONAL RATION (INR) 1.05; PROTHROMBIN TIME 13.7 SEC (11.4-15.4)
[2019-10-21 01:45] LABS: PARTIAL THROMBOPLASTIN TIME 34.4 SEC (23.5-35.8)
[2019-10-21 03:00] LABS: FREE T4 (FREE THYROXINE) 1.49 ng/dL (0.78-2.19)
[2019-10-21 03:14] LABS: THYROID STIMULATING HORMONE 0.07 uIU/mL (0.47-4.68)
[2019-10-21 05:50] LABS: ABSOLUTE BASOPHILS # (AUTO) 0.1 10^3/uL (0.0-0.2); ABSOLUTE EOSINOPHILS # (AUTO) 0.1 10^3/uL (0.0-0.6); ABSOLUTE LYMPHOCYTES (AUTO) 2.2 10^3/uL (0.5-4.7); ABSOLUTE MONOCYTES (AUTO) 0.6 10^3/uL (0.1-1.4); ABSOLUTE NEUT (AUTO) 4.3 10^3/uL (1.7-8.2); BASOPHILS % (AUTO) 1.2 % (0-2); HEMATOCRIT 34.6 % (37.9-51.0); LYMPHOCYTES % (AUTO) 29.8 % (13-45); MEAN CORPUSCULAR HEMOGLOBIN 27.4 pg (27.0-33.4); MEAN CORPUSCULAR HGB CONC 33.7 g/dL (32.0-36.0); MONOCYTES % (AUTO) 7.8 % (3-13); PLATELET COUNT 240 10^3/uL (150-450); RED BLOOD COUNT 4.26 10^6/uL (4.35-5.55); RED CELL DISTRIBUTION WIDTH 14.6 % (11.5-14.0); SEGMENTED NEUTROPHILS % (AUTO) 59.2 % (42-78); TOTAL CELLS COUNTED % (AUTO) 100 %; WHITE BLOOD COUNT 7.3 10^3/uL (4.0-10.5)
[2019-10-21 05:51] LABS: HEMOGLOBIN 11.7 g/dL (13.5-17.0); MEAN CORPUSCULAR VOLUME 81 fl (80-97)
[2019-10-21 06:02] LABS: ALBUMIN 2.8 g/dL (3.5-5.0); ALKALINE PHOSPHATASE 75 U/L (38-126); ASPARTATE AMINO TRANSFERASE 20 U/L (17-59); BILIRUBIN,DIRECT 0.3 mg/dL (0.0-0.4); BILIRUBIN,TOTAL 0.4 mg/dL (0.2-1.3); CHOLESTEROL 176.56 mg/dL (0-200); CREATINE KINASE 256 U/L (55-170); TOTAL PROTEIN 5.6 g/dL (6.3-8.2); TRIGLYCERIDES 162 mg/dL (<150)
[2019-10-21 06:13] LABS: CREATINE KINASE MB 0.51 ng/mL (<4.55); DIRECT LDL 98 mg/dL (<100)
[2019-10-21 06:14] LABS: TROPONIN I < 0.012 ng/mL; VLDL CHOLESTEROL 32.4 mg/dL (10-31)
[2019-10-21] MEDS: INSULIN LISPRO 100 UNIT/ML 3 ML VIAL SUBCUT SCH ×4 (08:22→22:09)
[2019-10-21] MEDS: CITALOPRAM HYDROBROMIDE 20 MG TABLET PO SCH (09:15)
[2019-10-21] MEDS: ENOXAPARIN SODIUM INJ 40 MG/0.4 ML DISP.SYRIN SUBCUT SCH (09:18)
[2019-10-21] MEDS: INSULIN GLARGINE,HUM.REC.ANLOG 1,000 UNIT/10 ML VIAL SUBCUT SCH (09:52)
[2019-10-21] MEDS ORDERED: INSULIN GLARGINE,HUM.REC.ANLOG 1,000 UNIT/10 ML VIAL SUBCUT SCH (10:00)
[2019-10-21 15:11] LABS: CREATINE KINASE MB 0.53 ng/mL (<4.55)
[2019-10-21 15:12] LABS: TROPONIN I < 0.012 ng/mL
[2019-10-21] MEDS ORDERED: TRAZODONE HCL 50 MG TABLET PO SCH (18:00)
--- NOTE | 2019-10-21 18:08 | PDOC H&P ---
History of Present Illness Admission Date/PCP: 10/20/19 20:23 JARON ANN MD History of Present Illness: LENA SCHULZ is a 33 year old male, He has history of schizophrenia, type 1 diabetes mellitus poorly controlled, recently he has been in and out of psychiatric hospital extremely poorly adherent to medication, does not follow in the office regularly, about 2 years ago he was referred to endocrinology for initiation of insulin pump because he has type 1 diabetes mellitus, he never kept the appointment.Because of his recurrent psychiatric inpatient care the Medicaid is presently termed, he has no insurance he has no glucose test strips, he has no insulin, he came to the emergency room because of elevated blood sugar, in the emergency room he was evaluated it was felt that patient needed to be admitted to the hospital. It is unfortunate, this patient persisted non- compliant with medical regimen for the management of his type 1 diabetes mellitus is a recipe for complications including microvascular and macrovascular complications which will portend extremely poor prognosis.He has hyperglycemic hyperosmolar state not overtly DKA at this time, he has had multiple inpatient care for DKA management Past Medical History Cardiac Medical History: Reports: Myocardial Infarction - May 2017., Hypertension Pulmonary Medical History: Reports: Asthma - as child Neurological Medical History: Reports: Migraine Endocrine Medical History: Reports: Diabetes Mellitus Type 1 Psychiatric Medical History: Reports: Bipolar Disorder, Depression Hematology: Reports: Anemia Past Surgical History Past Surgical History: Reports: Appendectomy, Other - [place] teeth extraction Social History Smoking Status: Current Every Day Smoker Electronic Cigarette use?: No Frequency of Alcohol Use: None Hx Recreational Drug Use: No Drugs: None Hx Prescription Drug Abuse: No Family History Family History: Reviewed & Not Pertinent, DM, Hypertension Parental Family History Reviewed: Yes Children Family History Reviewed: Yes Sibling(s) Family History Reviewed.: Yes Medication/Allergy Home Medications: Citalopram Hydrobromide [Celexa 40 mg Tablet] 40 mg PO DAILY 08/21/19 Gabapentin [Neurontin 100 mg Capsule] 200 mg PO Q8 08/21/19 Insulin Glargine,Hum.rec.anlog [Lantus Insulin 100 Unit/1 ml 10 ml] 40 unit SUBCUT DAILY 08/21/19 Insulin Lispro [Humalog] 12 unit SQ TID 08/21/19 Mirtazapine [Remeron] 50 mg PO DAILY 08/21/19 Oxycodone HCl/Acetaminophen [Percocet 7.5-325 mg Tablet] 1 each PO Q4HP PRN 08/21/19 Quetiapine Fumarate [Seroquel] 800 mg PO QHS 08/21/19 Trazodone HCl [Desyrel] 200 mg PO QPM 08/21/19 Allergies/Adverse Reactions: No Known Allergies Allergy (Verified 10/20/19 15:28) Review of Systems Constitutional: ABSENT: chills, fever(s), headache(s), weight gain, weight loss Eyes: ABSENT: visual disturbances Ears: ABSENT: hearing changes Cardiovascular: ABSENT: as per HPI, chest pain, dyspnea on exertion, edema, orthropnea, palpitations, other Respiratory: ABSENT: cough, hemoptysis Gastrointestinal: PRESENT: nausea Genitourinary: ABSENT: dysuria, hematuria Musculoskeletal: ABSENT: joint swelling Integumentary: ABSENT: rash, wounds Neurological: ABSENT: abnormal gait, abnormal speech, confusion, dizziness, focal weakness, syncope Psychiatric: ABSENT: anxiety, depression, homidical ideation, suicidal ideation Endocrine: ABSENT: cold intolerance, heat intolerance, menstrual abnormalities, polydipsia, polyuria Hematologic/Lymphatic: ABSENT: easy bleeding, easy bruising, lymphadenopathy Physical Exam Vital Signs: Temp Pulse Resp BP Pulse Ox 98.1 F 74 18 159/96 H 98 10/21/19 16:27 10/21/19 16:27 10/21/19 16:27 10/21/19 16:27 10/21/19 16:27 Intake & Output 10/20/19 10/21/19 10/22/19 06:59 06:59 06:59 Intake Total 4015 1000 Output Total 700 Balance 3315 1000 Weight 83.1 kg General appearance: PRESENT: no acute distress, well-developed, well-nourished Head exam: PRESENT: atraumatic, normocephalic Eye exam: PRESENT: conjunctiva pink, EOMI, PERRLA Ear exam: PRESENT: normal external ear exam Mouth exam: PRESENT: moist, tongue midline Neck exam: PRESENT: full ROM Respiratory exam: PRESENT: clear to auscultation juan ramon Cardiovascular exam: PRESENT: RRR, +S1, +S2 Pulses: PRESENT: normal dorsalis pedis pul, +2 pedal pulses bilateral Vascular exam: PRESENT: normal capillary refill GI/Abdominal exam: PRESENT: normal bowel sounds, soft Rectal exam: PRESENT: deferred Neurological exam: PRESENT: alert, awake, oriented to person, oriented to place, oriented to time, oriented to situation, CN II-XII grossly intact Psychiatric exam: PRESENT: appropriate affect, normal mood Skin exam: PRESENT: dry, intact, warm Results Laboratory Results: 10/21/19 05:15 10/20/19 17:11 10/20/19 10/20/19 10/20/19 16:40 17:11 17:11 WBC 7.0 RBC 5.07 Hgb 14.2 Hct 42.9 MCV 85 MCH 28.1 MCHC 33.2 RDW 14.1 H Plt Count 256 Seg Neutrophils % 86.4 H Sodium 129.3 L Potassium 5.3 H Chloride 94 L Carbon Dioxide 26 Anion Gap 9 BUN 17 Creatinine 1.65 H Est GFR ( Amer) 58 L Est GFR (Non-Af Amer) Glucose 818 H* Calcium 8.6 Phosphorus Magnesium Total Bilirubin 0.7 AST 25 Alkaline Phosphatase 104 Ammonia Total Protein 6.2 L Albumin 3.4 L Triglycerides Cholesterol LDL Cholesterol Direct VLDL Cholesterol HDL Cholesterol Amylase TSH Free T4 Urine Color COLORLESS Urine Appearance CLEAR Urine pH 6.0 Ur Specific [place] 1.018 Urine Protein 30 H Urine Glucose (UA) >=500 H Urine Ketones TRACE H Urine Blood NEGATIVE Urine Nitrite NEGATIVE Ur Leukocyte Esterase NEGATIVE 10/20/19 10/20/19 10/21/19 17:11 17:11 01:09 WBC RBC Hgb Hct MCV MCH MCHC RDW Plt Count Seg Neutrophils % Sodium Cancelled Potassium Cancelled Chloride Cancelled Carbon Dioxide Cancelled Anion Gap Cancelled BUN Cancelled Creatinine Cancelled Est GFR ( Amer) Cancelled Est GFR (Non-Af Amer) Cancelled Glucose Cancelled Calcium Cancelled Phosphorus 3.1 Magnesium 2.2 Total Bilirubin AST Alkaline Phosphatase Ammonia < 8.7 L Total Protein Albumin Triglycerides Cholesterol LDL Cholesterol Direct VLDL Cholesterol HDL Cholesterol Amylase 115 H TSH 0.07 L Free T4 1.49 Urine Color Urine Appearance Urine pH Ur Specific [place] Urine Protein Urine Glucose (UA) Urine Ketones Urine Blood Urine Nitrite Ur Leukocyte Esterase 10/21/19 10/21/19 05:15 05:15 WBC 7.3 RBC 4.26 L Hgb 11.7 L D Hct 34.6 L MCV 81 D MCH 27.4 MCHC 33.7 RDW 14.6 H Plt Count 240 Seg Neutrophils % 59.2 Sodium Potassium Chloride Carbon Dioxide Anion Gap BUN Creatinine Est GFR ( Amer) Est GFR (Non-Af Amer) Glucose Calcium Phosphorus Magnesium Total Bilirubin 0.4 AST 20 Alkaline Phosphatase 75 Ammonia Total Protein 5.6 L Albumin 2.8 L Triglycerides 162 H Cholesterol 176.56 LDL Cholesterol Direct 98 VLDL Cholesterol 32.4 H HDL Cholesterol 40 Amylase TSH Free T4 Urine Color Urine Appearance Urine pH Ur Specific [place] Urine Protein Urine Glucose (UA) Urine Ketones Urine Blood Urine Nitrite Ur Leukocyte Esterase 10/20/19 10/20/19 10/21/19 23:43 23:43 05:15 Creatine Kinase 352 H 256 H CK-MB (CK-2) 0.52 Troponin I < 0.012 10/21/19 10/21/19 10/21/19 05:15 14:16 14:16 Creatine Kinase 178 H CK-MB (CK-2) 0.51 0.53 Troponin I < 0.012 < 0.012 Assessment & Plan - Diagnosis (1) Hyperosmolar non-ketotic state in patient with type 2 diabetes mellitus Is this a current diagnosis for this admission?: Yes Plan: Patient is admitted for management, treat with normal saline,Insulin regimen
--- NOTE | 2019-10-21 18:19 | PDOC PROGRESS REPORT ---
Subjective Progress Note for:: 10/21/19 Subjective:: Patient is admitted yesterday for the management of hyperosmolar nonketotic diabetes mellitus, he was seen today by the bedside the test case developer was in the room with him Reason For Visit: DKA Physical Exam Vital Signs: Temp Pulse Resp BP Pulse Ox 98.1 F 74 18 159/96 H 98 10/21/19 16:27 10/21/19 16:27 10/21/19 16:27 10/21/19 16:27 10/21/19 16:27 Intake & Output 10/20/19 10/21/19 10/22/19 06:59 06:59 06:59 Intake Total 4015 1000 Output Total 700 Balance 3315 1000 Weight 83.1 kg General appearance: PRESENT: no acute distress Eye exam: PRESENT: PERRLA Respiratory exam: PRESENT: clear to auscultation juan ramon Cardiovascular exam: PRESENT: +S1, +S2 GI/Abdominal exam: PRESENT: soft Neurological exam: PRESENT: alert, CN II-XII grossly intact Results Laboratory Results: 10/21/19 05:15 10/20/19 17:11 10/20/19 10/20/19 10/20/19 16:40 17:11 17:11 WBC RBC Hgb Hct MCV MCH MCHC RDW Plt Count Seg Neutrophils % Sodium 129.3 L Cancelled Potassium 5.3 H Cancelled Chloride 94 L Cancelled Carbon Dioxide 26 Cancelled Anion Gap 9 Cancelled BUN 17 Cancelled Creatinine 1.65 H Cancelled Est GFR ( Amer) 58 L Cancelled Est GFR (Non-Af Amer) Cancelled Glucose 818 H* Cancelled Calcium 8.6 Cancelled Phosphorus 3.1 Magnesium 2.2 Total Bilirubin 0.7 AST 25 Alkaline Phosphatase 104 Ammonia Total Protein 6.2 L Albumin 3.4 L Triglycerides Cholesterol LDL Cholesterol Direct VLDL Cholesterol HDL Cholesterol Amylase 115 H TSH Free T4 Urine Color COLORLESS Urine Appearance CLEAR Urine pH 6.0 Ur Specific Martin 1.018 Urine Protein 30 H Urine Glucose (UA) >=500 H Urine Ketones TRACE H Urine Blood NEGATIVE Urine Nitrite NEGATIVE Ur Leukocyte Esterase NEGATIVE 10/20/19 10/21/19 10/21/19 17:11 01:09 05:15 WBC RBC Hgb Hct MCV MCH MCHC RDW Plt Count Seg Neutrophils % Sodium Potassium Chloride Carbon Dioxide Anion Gap BUN Creatinine Est GFR ( Amer) Est GFR (Non-Af Amer) Glucose Calcium Phosphorus Magnesium Total Bilirubin 0.4 AST 20 Alkaline Phosphatase 75 Ammonia < 8.7 L Total Protein 5.6 L Albumin 2.8 L Triglycerides 162 H Cholesterol 176.56 LDL Cholesterol Direct 98 VLDL Cholesterol 32.4 H HDL Cholesterol 40 Amylase TSH 0.07 L Free T4 1.49 Urine Color Urine Appearance Urine pH Ur Specific Martin Urine Protein Urine Glucose (UA) Urine Ketones Urine Blood Urine Nitrite Ur Leukocyte Esterase 10/21/19 05:15 WBC 7.3 RBC 4.26 L Hgb 11.7 L D Hct 34.6 L MCV 81 D MCH 27.4 MCHC 33.7 RDW 14.6 H Plt Count 240 Seg Neutrophils % 59.2 Sodium Potassium Chloride Carbon Dioxide Anion Gap BUN Creatinine Est GFR ( Amer) Est GFR (Non-Af Amer) Glucose Calcium Phosphorus Magnesium Total Bilirubin AST Alkaline Phosphatase Ammonia Total Protein Albumin Triglycerides Cholesterol LDL Cholesterol Direct VLDL Cholesterol HDL Cholesterol Amylase TSH Free T4 Urine Color Urine Appearance Urine pH Ur Specific Martin Urine Protein Urine Glucose (UA) Urine Ketones Urine Blood Urine Nitrite Ur Leukocyte Esterase 10/20/19 10/20/19 10/21/19 23:43 23:43 05:15 Creatine Kinase 352 H 256 H CK-MB (CK-2) 0.52 Troponin I < 0.012 10/21/19 10/21/19 10/21/19 05:15 14:16 14:16 Creatine Kinase 178 H CK-MB (CK-2) 0.51 0.53 Troponin I < 0.012 < 0.012 Assessment & Plan - Diagnosis (1) Hyperosmolar non-ketotic state in patient with type 2 diabetes mellitus Is this a current diagnosis for this admission?: Yes Plan: Continue treatment (2) Hx of noncompliance with medical treatment, presenting hazards to health Is this a current diagnosis for this admission?: Yes - Time Time Spent with patient: 15-24 minutes Level of Care: IMCU
[2019-10-21] MEDS: TRAZODONE HCL 50 MG TABLET PO SCH (22:09)
[2019-10-21 23:16] LABS: ANION GAP 5 (5-19); BLOOD UREA NITROGEN 13 mg/dL (7-20); CALCIUM 8.3 mg/dL (8.4-10.2); CARBON DIOXIDE 26 mmol/L (22-30); CHLORIDE 106 mmol/L (98-107); GLUCOSE 197 mg/dL (75-110); POTASSIUM 4.1 mmol/L (3.6-5.0)
[2019-10-21] MEDS ORDERED: VALSARTAN 160 MG TABLET PO ONE (23:45)
[2019-10-22] MEDS: GABAPENTIN 100 MG CAPSULE PO SCH ×3 (05:49→22:25)
[2019-10-22] MEDS: NORMAL SALINE 1000 ML 1,000 ML IV PRN (05:51)
[2019-10-22] MEDS: INSULIN LISPRO 100 UNIT/ML 3 ML VIAL SUBCUT SCH ×4 (08:19→22:26)
[2019-10-22 09:18] LABS: ABSOLUTE BASOPHILS # (AUTO) 0.1 10^3/uL (0.0-0.2); ABSOLUTE EOSINOPHILS # (AUTO) 0.1 10^3/uL (0.0-0.6); ABSOLUTE LYMPHOCYTES (AUTO) 1.4 10^3/uL (0.5-4.7); ABSOLUTE MONOCYTES (AUTO) 0.4 10^3/uL (0.1-1.4); ABSOLUTE NEUT (AUTO) 5.5 10^3/uL (1.7-8.2); BASOPHILS % (AUTO) 0.9 % (0-2); EOSINOPHILS % (AUTO) 1.9 % (0-6); HEMATOCRIT 37.3 % (37.9-51.0); HEMOGLOBIN 12.5 g/dL (13.5-17.0); LYMPHOCYTES % (AUTO) 18.3 % (13-45); MEAN CORPUSCULAR HEMOGLOBIN 27.2 pg (27.0-33.4); MEAN CORPUSCULAR HGB CONC 33.6 g/dL (32.0-36.0); MEAN CORPUSCULAR VOLUME 81 fl (80-97); MONOCYTES % (AUTO) 5.7 % (3-13); PLATELET COUNT 250 10^3/uL (150-450); RED BLOOD COUNT 4.61 10^6/uL (4.35-5.55); RED CELL DISTRIBUTION WIDTH 14.7 % (11.5-14.0); SEGMENTED NEUTROPHILS % (AUTO) 73.2 % (42-78); TOTAL CELLS COUNTED % (AUTO) 100 %; WHITE BLOOD COUNT 7.5 10^3/uL (4.0-10.5)
[2019-10-22] MEDS: CITALOPRAM HYDROBROMIDE 20 MG TABLET PO SCH (09:25)
[2019-10-22] MEDS: VALSARTAN 160 MG TABLET PO SCH ×2 (09:25→22:26)
[2019-10-22] MEDS: INSULIN GLARGINE,HUM.REC.ANLOG 1,000 UNIT/10 ML VIAL SUBCUT SCH (09:26)
[2019-10-22] MEDS: ENOXAPARIN SODIUM INJ 40 MG/0.4 ML DISP.SYRIN SUBCUT SCH (09:27)
[2019-10-22 09:34] LABS: ALKALINE PHOSPHATASE 83 U/L (38-126); ASPARTATE AMINO TRANSFERASE 18 U/L (17-59); BILIRUBIN,TOTAL 0.1 mg/dL (0.2-1.3); TOTAL PROTEIN 5.7 g/dL (6.3-8.2)
[2019-10-22] MEDS: OXYCODONE-ACETAMINOPHEN 5-325 MG TABLET PO PRN ×3 (12:02→22:33)
--- NOTE | 2019-10-22 22:08 | PDOC PROGRESS REPORT ---
Subjective Progress Note for:: 10/22/19 Subjective:: Patient seen by the bedside admitted for uncontrolled diabetes Reason For Visit: DKA Physical Exam Vital Signs: Temp Pulse Resp BP Pulse Ox 98.5 F 80 20 167/95 H 99 10/22/19 19:49 10/22/19 19:49 10/22/19 19:49 10/22/19 19:49 10/22/19 19:49 Intake & Output 10/21/19 10/22/19 10/23/19 06:59 06:59 06:59 Intake Total 4015 4361 2930 Output Total 700 3100 925 Balance 3315 1261 2004 Weight 83.1 kg 82.6 kg General appearance: PRESENT: no acute distress Eye exam: PRESENT: PERRLA Respiratory exam: PRESENT: clear to auscultation juan ramon Cardiovascular exam: PRESENT: +S1, +S2 GI/Abdominal exam: PRESENT: soft Neurological exam: PRESENT: alert Results Laboratory Results: 10/22/19 09:00 10/21/19 22:47 10/21/19 10/22/19 10/22/19 22:47 09:00 09:00 WBC 7.5 RBC 4.61 Hgb 12.5 L Hct 37.3 L MCV 81 MCH 27.2 MCHC 33.6 RDW 14.7 H Plt Count 250 Seg Neutrophils % 73.2 Sodium 136.7 L Potassium 4.1 Chloride 106 Carbon Dioxide 26 Anion Gap 5 BUN 13 Creatinine 1.33 H Est GFR ( Amer) > 60 Glucose 197 H Calcium 8.3 L Total Bilirubin 0.1 L AST 18 Alkaline Phosphatase 83 Total Protein 5.7 L Albumin 3.0 L 10/20/19 10/20/19 10/21/19 23:43 23:43 05:15 Creatine Kinase 352 H 256 H CK-MB (CK-2) 0.52 Troponin I < 0.012 10/21/19 10/21/19 10/21/19 05:15 14:16 14:16 Creatine Kinase 178 H CK-MB (CK-2) 0.51 0.53 Troponin I < 0.012 < 0.012 Assessment & Plan - Diagnosis (1) Hyperosmolar non-ketotic state in patient with type 2 diabetes mellitus Is this a current diagnosis for this admission?: Yes Plan: Continue treatment (2) Hx of noncompliance with medical treatment, presenting hazards to health Is this a current diagnosis for this admission?: Yes - Time Time Spent with patient: Less than 15 minutes
[2019-10-22] MEDS: TRAZODONE HCL 50 MG TABLET PO SCH (22:26)
[2019-10-22] MEDS: QUETIAPINE FUMARATE 100 MG TABLET PO SCH (22:28)
[2019-10-23] MEDS: OXYCODONE-ACETAMINOPHEN 5-325 MG TABLET PO PRN ×2 (05:00→09:39)
[2019-10-23] MEDS: GABAPENTIN 100 MG CAPSULE PO SCH (05:01)
[2019-10-23 06:42] LABS: ABSOLUTE BASOPHILS # (AUTO) 0.1 10^3/uL (0.0-0.2); ABSOLUTE EOSINOPHILS # (AUTO) 0.2 10^3/uL (0.0-0.6); ABSOLUTE LYMPHOCYTES (AUTO) 1.8 10^3/uL (0.5-4.7); ABSOLUTE MONOCYTES (AUTO) 0.5 10^3/uL (0.1-1.4); BASOPHILS % (AUTO) 1.5 % (0-2); EOSINOPHILS % (AUTO) 2.3 % (0-6); HEMATOCRIT 36.3 % (37.9-51.0); HEMOGLOBIN 12.3 g/dL (13.5-17.0); LYMPHOCYTES % (AUTO) 27.7 % (13-45); MEAN CORPUSCULAR HEMOGLOBIN 27.2 pg (27.0-33.4); MEAN CORPUSCULAR HGB CONC 33.8 g/dL (32.0-36.0); MEAN CORPUSCULAR VOLUME 81 fl (80-97); MONOCYTES % (AUTO) 7.4 % (3-13); PLATELET COUNT 256 10^3/uL (150-450); RED BLOOD COUNT 4.51 10^6/uL (4.35-5.55); RED CELL DISTRIBUTION WIDTH 14.7 % (11.5-14.0); SEGMENTED NEUTROPHILS % (AUTO) 61.1 % (42-78); TOTAL CELLS COUNTED % (AUTO) 100 %; WHITE BLOOD COUNT 6.6 10^3/uL (4.0-10.5)
[2019-10-23 07:00] LABS: ALBUMIN 3.1 g/dL (3.5-5.0); ALKALINE PHOSPHATASE 74 U/L (38-126); ASPARTATE AMINO TRANSFERASE 18 U/L (17-59); BILIRUBIN,DIRECT 0.2 mg/dL (0.0-0.4); BILIRUBIN,TOTAL 0.2 mg/dL (0.2-1.3); TOTAL PROTEIN 6.1 g/dL (6.3-8.2)
[2019-10-23 08:21] VITALS: BP 148/91
[2019-10-23] MEDS: INSULIN LISPRO 100 UNIT/ML 3 ML VIAL SUBCUT SCH (08:24)
[2019-10-23] MEDS: CITALOPRAM HYDROBROMIDE 20 MG TABLET PO SCH (09:29)
[2019-10-23] MEDS: INSULIN GLARGINE,HUM.REC.ANLOG 1,000 UNIT/10 ML VIAL SUBCUT SCH (09:30)
[2019-10-23] MEDS: VALSARTAN 160 MG TABLET PO SCH (09:31)
[2019-10-23] MEDS: ENOXAPARIN SODIUM INJ 40 MG/0.4 ML DISP.SYRIN SUBCUT SCH (09:36)
--- NOTE | 2019-10-23 12:19 | Left Against Medical Advice ---
Against Medical Advice Admission Date/Time: 10/20/19 20:23 Primary Care Provider: JARON ANN MD Date of Patient Emigration: 10/23/19 - Diagnosis: (1) Hyperosmolar non-ketotic state in patient with type 2 diabetes mellitus Is this a current diagnosis for this admission?: Yes (2) Hx of noncompliance with medical treatment, presenting hazards to health Is this a current diagnosis for this admission?: Yes - Summary: Summary: Please see Admission and Progress Notes as well. LENA SCHULZ is a 33 M, who LEFT AGAINST MEDICAL ADVICE. The Patient was admitted on 10/20/19 20:23.For uncontrolled diabetes mellitus, patient with history of type 1 diabetes he apparently was not on any insulin my understanding is that patient has been in and out of psychiatric hospital. The diabetes was being managed appropriately the patient decided to leave AGAINST MEDICAL ADVICE today before management was complete
== END 2019-10-23 11:20 | disposition left against medical advice (07) | DRG 639 ==
LOC: ER 14:42 → EH 20:23 → 3S 10-21 → 4N 10-23 04:25
PROVIDERS: ADMIT Internal Medicine; ATTEND Internal Medicine
DX: E10.65 Type 1 diabetes mellitus with hyperglycemia (principal); I10 Essential (primary) hypertension; T38.3X6A Underdosing of insulin and oral hypoglycemic [antidiabetic] drugs, initial encounter; Z79.4 Long term (current) use of insulin; F20.9 Schizophrenia, unspecified; I25.2 Old myocardial infarction; F31.9 Bipolar disorder, unspecified; Z90.49 Acquired absence of other specified parts of digestive tract; F17.200 Nicotine dependence, unspecified, uncomplicated; Z91.138 Patient's unintentional underdosing of medication regimen for other reason; Z59.7 Insufficient social insurance and welfare support; Z83.3 Family history of diabetes mellitus; Z82.49 Family history of ischemic heart disease and other diseases of the circulatory system
CPT/HCPCS: 36415; 80048; 80053; 80061; 80076; 80307; 81001; 82140; 82150; 82550; 82553; 82803; 82962; 83036; 83735; 84100; 84439; 84443; 84484; 85025; 85610; 85730; 87040; 87086; 96360; 99285; J1815; J3490; J7030

== ENCOUNTER 2019-10-25 20:44 | Emergency (ER) | payer MEDICAID ==
--- NOTE | 2019-10-25 21:15 | ER Document Report ---
ED General - General Chief Complaint: Suicidal Ideation Stated Complaint: SUICIDAL IDEATIONS Time Seen by Provider: 10/25/19 21:05 Primary Care Provider: JARON ANN MD [Primary Care Provider] - Follow up as needed TRAVEL OUTSIDE OF THE [place] IN LAST 30 DAYS: No - HPI Notes: Patient is a 34-year-old male with a history of diabetes, hypertension, depression, schizophrenia presents complaining of suicidal thoughts for the past couple days with auditory hallucinations and attempting to overdose today around 3 PM on 50 mg of oxycodone and 5 mg of Xanax. Patient states that he has not been taking his medicines for schizophrenia. He is otherwise well known to the emergency department. He is able to eat and drink without difficulty. He is urinating normally and having normal bowel movements. Denies any headache, fever, neck pain, URI, sore throat, chest pain, palpitations, syncope, cough, shortness of breath, wheeze, dyspnea, abdominal pain, nausea/vomiting/diarrhea, urinary retention, dysuria, hematuria, loss of control of bowel or bladder, numbness/tingling, saddle anesthesia, muscle paralysis/weakness, or rash. Pt is a daily user of percocet and xanax otherwise. - Related Data Allergies/Adverse Reactions: No Known Allergies Allergy (Verified 10/20/19 15:28) Past Medical History - Social History Smoking Status: Unknown if Ever Smoked Family History: Reviewed & Not Pertinent, DM, Hypertension - Past Medical History Cardiac Medical History: Reports: Hx Heart Attack - May 2017., Hx Hypertension Denies: Hx Congestive Heart Failure, Hx DVT, Hx Hypercholesterolemia, Hx Pulmonary Embolism Pulmonary Medical History: Reports: Hx Asthma - as child Denies: Hx COPD, Hx Sleep Apnea Neurological Medical History: Reports: Hx Migraine. Denies: Hx Seizures Endocrine Medical History: Reports: Hx Diabetes Mellitus Type 1. Denies: Hx Diabetes Mellitus Type 2, Hx Hyperthyroidism, Hx Hypothyroidism Renal/ Medical History: Denies: Hx Peritoneal Dialysis GI Medical History: Denies: Hx Cirrhosis, Hx Gastroesophageal Reflux Disease, Hx Hepatitis Musculoskeletal Medical History: Denies Hx Arthritis Psychiatric Medical History: Reports: Hx Anxiety, Hx Bipolar Disorder, Hx Depression, Hx Schizophrenia Infectious Medical History: Denies: Hx C-Diff, Hx Hepatitis, Hx MRSA Past Surgical History: Reports: Hx Appendectomy, Hx Oral Surgery - wisdom teeth, Other - [place] teeth extraction - Immunizations Hx Diphtheria, Pertussis, Tetanus Vaccination: Yes Hx Pneumococcal Vaccination: 09/16/00 Review of Systems - Review of Systems -: Yes All other systems reviewed and negative Physical Exam - Vital signs Vitals: Temp Resp 98.6 F 10 L 10/25/19 21:10 10/25/19 21:10 - Notes Notes: PHYSICAL EXAMINATION: GENERAL: Well-appearing, well-nourished and in no acute distress. A&Ox4. Answers questions appropriately. HEAD: Atraumatic, normocephalic. EYES: Pupils equal round and reactive to light, extraocular movements intact, sclera anicteric, conjunctiva are normal. ENT: Nares patent and without discharge. oropharynx clear without exudates. No tonsilar hypertrophy or erythema. Moist mucous membranes. NECK: Normal range of motion, supple without lymphadenopathy LUNGS: Breath sounds clear to auscultation bilaterally and equal. No wheezes rales or rhonchi. HEART: Regular rate and rhythm without murmurs, rubs, gallops. ABDOMEN: Soft, nontender, nondistended abdomen. No guarding, no rebound. Normal bowel sounds present. No CVA tenderness bilaterally. Musculoskeletal: FROM to passive/active. Strength 5+/5. Extremities: No cyanosis, clubbing, or edema b/l. Peripheral pulses 2+. Capillary refill less than 3 seconds. NEUROLOGICAL: Cranial nerves grossly intact. Normal speech, normal gait. Normal sensory, motor exams PSYCH: Normal mood, normal affect. SKIN: Warm, Dry, normal turgor, no rashes or lesions noted. Course - Re-evaluation Re-evalutation: 10/25/19 21:55 Patient is an afebrile, well-hydrated, 34-year-old male who presents with suicidal ideation with attempted overdose with oxycodone and Xanax. Vitals are currently acceptable. Although his blood pressures little bit elevated. He has not been taking any of his medications at home aside from his Lantus, Xanax, Percocet. PE is otherwise unremarkable for any focal neurological deficits. Patient is nontoxic-appearing is tolerating p.o. without difficulty. He does not have pinpoint pupils and is not excessively drowsy. He is easily arousable and communicates well. I did speak with poison control and we are both debating on whether or not he actually took that medicine based on his current status. Regardless, if the labs are unremarkable we may medically clear him from an overdose perspective. Patient will be given his valsartan tonight. 10/25/19 23:08 Labs unremarkable. Patient is nontoxic-appearing and is easily arousable. No further work-up warranted at this time. Patient is currently medically cleared for evaluation by our mental health team in the morning. Pt is on IVC petition paperwork. - Vital Signs Vital signs: Temp Pulse Resp BP Pulse Ox 98.6 F 14 143/96 H 98 10/25/19 21:10 10/25/19 23:01 10/25/19 23:01 10/25/19 23:01 - Laboratory Result Diagrams: 10/25/19 22:10 10/25/19 22:10 Laboratory results interpreted by me: 10/25/19 10/25/19 10/25/19 21:13 22:10 22:10 RDW 14.4 H Sodium 135.1 L Potassium 3.5 L Chloride 96 L Carbon Dioxide 31 H Creatinine 1.55 H Est GFR (MDRD) Non-Af 51 L Urine Protein >=500 H Urine Glucose (UA) >=500 H Salicylates < 1.0 L Acetaminophen < 10 L Discharge - Discharge Clinical Impression: Suicidal ideation Condition: Stable Disposition: PSYCH HOSP/UNIT Referrals: JARON ANN MD [Primary Care Provider] - Follow up as needed
[2019-10-25] MEDS ORDERED: VALSARTAN 160 MG TABLET PO ONE (21:28)
[2019-10-25 21:29] LABS: APPEARANCE,URINE CLEAR; BILIRUBIN,URINE NEGATIVE (NEGATIVE); COLOR,URINE YELLOW; GLUCOSE, URINE >=500 mg/dL (NEGATIVE); KETONES,URINE NEGATIVE (NEGATIVE); LEUKOCYTE ESTERASE,URINE NEGATIVE (NEGATIVE); NITRITE,URINE NEGATIVE (NEGATIVE); PROTEIN,URINE >=500 mg/dL (NEGATIVE); URINE SPECIFIC GRAVITY 1.015; UROBILINOGEN,URINE NEGATIVE mg/dL (<2.0)
[2019-10-25 21:43] LABS: URINE AMPHETAMINES SCREEN NEGATIVE; URINE BARBITURATES SCREEN NEGATIVE; URINE BENZODIAZEPINES SCREEN UNCONFIRMED POSITIVE; URINE COCAINE SCREEN NEGATIVE; URINE MARIJUANA (THC) SCREEN UNCONFIRMED POSITIVE; URINE METHADONE SCREEN NEGATIVE; URINE PHENCYCLIDINE SCREEN NEGATIVE
[2019-10-25 22:31] LABS: ABSOLUTE BASOPHILS # (AUTO) 0.1 10^3/uL (0.0-0.2); ABSOLUTE EOSINOPHILS # (AUTO) 0.1 10^3/uL (0.0-0.6); ABSOLUTE LYMPHOCYTES (AUTO) 2.2 10^3/uL (0.5-4.7); ABSOLUTE MONOCYTES (AUTO) 0.8 10^3/uL (0.1-1.4); ABSOLUTE NEUT (AUTO) 6.6 10^3/uL (1.7-8.2); BASOPHILS % (AUTO) 1.2 % (0-2); EOSINOPHILS % (AUTO) 1.2 % (0-6); HEMATOCRIT 40.5 % (37.9-51.0); HEMOGLOBIN 13.7 g/dL (13.5-17.0); LYMPHOCYTES % (AUTO) 22.3 % (13-45); MEAN CORPUSCULAR HEMOGLOBIN 27.4 pg (27.0-33.4); MEAN CORPUSCULAR HGB CONC 33.8 g/dL (32.0-36.0); MEAN CORPUSCULAR VOLUME 81 fl (80-97); MONOCYTES % (AUTO) 7.7 % (3-13); PLATELET COUNT 292 10^3/uL (150-450); RED BLOOD COUNT 4.99 10^6/uL (4.35-5.55); RED CELL DISTRIBUTION WIDTH 14.4 % (11.5-14.0); SEGMENTED NEUTROPHILS % (AUTO) 67.6 % (42-78); TOTAL CELLS COUNTED % (AUTO) 100 %; WHITE BLOOD COUNT 9.8 10^3/uL (4.0-10.5)
[2019-10-25 22:42] LABS: ALBUMIN 3.9 g/dL (3.5-5.0); ALKALINE PHOSPHATASE 83 U/L (38-126); ANION GAP 8 (5-19); ASPARTATE AMINO TRANSFERASE 20 U/L (17-59); BILIRUBIN,DIRECT 0.3 mg/dL (0.0-0.4); BILIRUBIN,TOTAL 0.4 mg/dL (0.2-1.3); BLOOD UREA NITROGEN 15 mg/dL (7-20); CALCIUM 9.2 mg/dL (8.4-10.2); CARBON DIOXIDE 31 mmol/L (22-30); CHLORIDE 96 mmol/L (98-107); GLUCOSE 96 mg/dL (75-110); POTASSIUM 3.5 mmol/L (3.6-5.0); TOTAL PROTEIN 7.1 g/dL (6.3-8.2)
[2019-10-25 22:44] LABS: ACETAMINOPHEN < 10 ug/mL (10-30); ALCOHOL < 10 mg/dL (NONE DETECTED); SALICYLATE < 1.0 mg/dL (2.0-20.0)
[2019-10-26] MEDS ORDERED: INSULIN GLARGINE,HUM.REC.ANLOG 1,000 UNIT/10 ML VIAL SUBCUT SCH (08:00)
--- NOTE | 2019-10-26 09:37 | ER Document Report ---
Doctor's Note Notes: 10/26/19 09:33 Patient's vital signs and previous labs, diagnostic images reviewed. Reviewed mental health notes, nurse's notes and previous providers notes. VSS. Pt is in no distress at this time. Denies any SI or HI. Patient resting in bed when this provider came in the room. Awaiting for mental health evaluation decision for plan of care. Denies any headache, fever, neck pain, URI, sore throat, chest pain, palpitations, syncope, cough, shortness of breath, wheeze, dyspnea, abdominal pain, nausea/vomiting/diarrhea, urinary retention, dysuria, hematuria, loss of control of bowel or bladder, numbness/tingling, saddle anesthesia, muscle paralysis/weakness, or rash. General: A&Ox3. Answers questions appropriately. Heart: RRR Lungs: CTAB Psych: Flat affect A/P: Continue monitoring and rec's per MH. Normal diet Awaiting for mental health plan of care
--- NOTE | 2019-10-26 13:32 | EKG REPORT ---
SEVERITY:- ABNORMAL ECG - SINUS RHYTHM ABNORMAL T, CONSIDER ISCHEMIA, DIFFUSE LEADS : Confirmed by: Brayden Silverio MD 26-Oct-2019 13:31:26
[2019-10-26] MEDS ORDERED: ACETAMINOPHEN 325 MG TABLET PO ONE ×2 (17:50→23:09)
[2019-10-26] MEDS ORDERED: HYDROXYZINE PAMOATE 25 MG CAPSULE PO ONE (20:25)
[2019-10-26] MEDS ORDERED: IBUPROFEN 800 MG TABLET PO ONE (20:25)
[2019-10-26] MEDS ORDERED: CLONIDINE 0.1 MG/24 HR PATCH.TDWK TD ONE (23:08)
--- NOTE | 2019-10-27 07:16 | PSYCHOLOGICAL NOTE ---
Psych Note - Psych Note Date seen by psych provider: 10/26/19 Time seen by psych provider: 07:20 Psych Note: Patient is a year old male who presents to ED via EMS for SI and OD by ingesting Percocet and Xanax. Patient states the Percocet and Xanax were [place]. Patient is known to behavioral health with a pattern of demanding inpatient hospitalization and endorsing suicidal ideation. Patient reports he continues to be suicidal with a plan to suicide via handgun. Patient would not disclose the physical location of the gun; other than to say, it is close to my house at a friends. Clinician discussed clients access to his ACTT. Patient reports he called but his phone call was not returned. Clinician asked questions regarding who he contacted and client became agitated and stated that the ACTT team is not for medoesnt work for me.not the best team. Patient became irritated and stated that he would keep trying [suicide] until it happens. Clinician spoke with Donna ACTT supervisor tellers ([phone]) who states patient has been to 5-6 inpatient facilities in 45 days and tested positive for narcotics and Xanax at each facility. [facility] recently discharged patient after 2 days with the belief he is malingering. Patient has been generally unresponsive to ACTT team since the focus has been his substance abuse history (narcotics and Xanax). Patient does not want a group involved in his care. Patient has refused to pay his utility bills; therefore, his electricity and water were cut off. Patient recently paid his utilities and water. Patient did contact ACTT team but reported he is going to the ED myself and I dont need support. Patient did not report this ED visit as an SI/OD. Patient informed ACTT he took some pills. Patient left unkindly when Psychiatrist would not prescribe benzos. Clinician and Donna spoke with patient who was generally argumentative and dismissive. Patient admits narcotic and Xanax abuse for a long time. Donna attempted to obtain phone numbers and names of individuals patient spoke with last night. Patient was unable to identify who he contacted with the ACTT. When clinician and Donna confronted patient with inconsistencies in his stories, patient became defensive and refused to engage further. Clinician discussed the support he had through the ACTT (Psychiatrist, RN, licensed social worker) but he has to reach out and make his needs known. Patient is recommended for rescind of IVC, however attending physician is not in agreement. Clinician provided attending physician with first examination form to complete. Patient has an extensive history with this ED, inpatient facilities ([facility] and [place]) and ACTT team of attempting to sabotage discharge by endorsing SI. Patient is believed to be at baseline. Patient has a history of noncompliance with both medical and outpatient services. On 10/23/2019 patient left AMA at [facility] because he deemed his diabetes crisis to be over. Patient lacks insight and judgement into his current situation. Consistent with patients history, patient become irritable and refuses to engage when confronted with inconsistencies. For example, patient informed clinician no one from the ACTT team called him back, his utilities were never cut off, he took pills but told ED his substance use was a SI/OD. There is no documented history of the patient attempting suicide or engaging in suicidal gesture. Patients ingestion of narcotics and Xanax is not suggestive of an overdose. Patient would benefit from engagement with an outpatient mental health provider to learn the skills to accurately interpret his environment, thoughts, and emotions. Patient has active services through ACTT who can assist patient with referrals for appropriate services. Patients ACTT team is in agreement with behavioral health team, [facility], and [facility] that patient is malingering. Dr. Waller was consulted on the care and management of this patient. Again, attending physician is not in agreement with recommendation and disposition.
[2019-10-27] MEDS: VALSARTAN 160 MG TABLET PO SCH ×2 (07:59→09:32)
[2019-10-27] MEDS ORDERED: INSULIN REG, HUMAN 100 UNIT/ML 3 ML VIAL (PYX) SUBCUT ONE ×2 (11:58→12:12)
--- NOTE | 2019-10-27 12:12 | ER Document Report ---
Doctor's Note Notes: 10/27/19 12:04 S: 34-year-old male with history of type 1 diabetes and taking insulin and history of mental health mood disorder to the emergency department 2 days ago with complaints of depression with intent to overdose on his oxycodone and Xanax. Apparently he took 50 mg of oxycodone and 5 mg of Xanax. At time of initial evaluation it was believed that perhaps patient did not actually take this. He was not exhibiting any symptoms. He was kept on IVC for the last 2 days for further evaluation. He was recommended for discharge yesterday but was still expressing some passive SI so ER attending declined discharge. Today the patient states he feels much better. He states that he is not having any suicidal ideation. He denies having access to handgun today. He denies wanting to overdose. He has not had his insulin because his blood sugar have been running moderate to low. He did have breakfast this morning and now his sugar is in the 460s. He usually gives himself about 6 units of insulin when his sugar is not high. We will go ahead and give him 6 units of insulin now. He states that otherwise he is feeling well this morning and would like to be discharged if possible. Behavioral health team has seen the patient and agrees that he does not need to stay for further evaluation. He follows with ACTT and he has been encouraged to follow with them further. O: Constitutional: Alert, oriented, in no acute distress Cardiac: Regular rate and rhythm, no murmurs, rubs, gallops Pulmonary: Clear to auscultation bilaterally, no wheezes, rhonchi, rales Abdomen: Soft, nondistended, nontender Skin: Dry, warm, normal turgor Psych: Normal affect, normal mood. Denies SI, HI, hallucinations A/P: Discussed patient further with behavioral health. They still feel that outpatient follow-up is best for this patient and that he does not need to stay for further inpatient evaluation. He denies any SI today. I discussed with my ER attending, Dr. Barron, and she agrees with the plan for discharge. We will discharge the patient after insulin given and Accu-Chek shows improvement. Patient is aware of the plan and agrees.
[2019-10-27 14:01] VITALS: BP 160/108
--- NOTE | 2019-10-27 19:07 | PSYCHOLOGICAL NOTE ---
Psych Note - Psych Note Date seen by psych provider: 10/27/19 Time seen by psych provider: 10:40 Psych Note: Check in conducted with patient. Patient requested discharge stated he is no longer suicidal. When asked what changed since yesterday when patient did not want to leave hospital, patient stated he was under the influence of substances. Patient states he is thinking more clearly. Clinician informed patient of the an earlier conversation clinician had with his [facility] complex case manager in which the plan was to secure a group living arrangement. Patient became upset and stated he will not go to a jail. Clinician discussed patient's frequent inpatient hospital demands, substance abuse history, and concern about his ability to thrive without constant support. Patient repeatedly stated "yall don't know what yall talkin bout." Clinician encouraged patient to tell me what he needs. Patient was encouraged to look at his behavior thought the lens of the ED and other facilities from which he seeks services. Discussed the discharge paperwork in which [place] reports patient's behavior is suggestive of malingering. Patient declined to engage further. A telephone claims representative from patient's ACTT team visited patient, who would not cooperate. Patient denies SI in front of ACTT worker. Impression/Plan: Patient is recommended for rescind of IVC and is cleared from acute psychiatric services. Patient denies suicidal ideation. Patient denied SI with his ACTT worker as a witness. Patient demanded discharge. Patient has an extensive history with this ED, inpatient facilities ([facility] and [place]) and ACTT team of attempting to sabotage discharge by endorsing SI. Patient is believed to be at baseline. Patient has a history of noncompliance with both medical and outpatient services. Patient continues a lack insight and judgment into his current situation and how his behavior is affecting his ability to receive social supports. Consistent with patients history, patient become irritable and refuses to engage when confronted with inconsistencies. There is no documented history of the patient attempting suicide or engaging in suicidal gesture. The amount of narcotics and Xanax patient reports to have taken is not suggestive of an overdose. Please note, patient's lab work was unremarkable. Patient would benefit from engagement with an outpatient mental health provider to learn the skills to accurately interpret his environment, thoughts, and emotions. Patient has active services through ACTT who can assist patient with referrals for appropriate services. Patients ACTT team is in agreement with behavioral health team, [facility], and [facility] that patient's behavior is suggestive of malingering. Dr. Waller was consulted on the care and management of this patient. Again, attending physician is not in agreement with recommendation and disposition.
== END 2019-10-27 15:00 ==
LOC: ER 20:44
DX: T40.2X2A Poisoning by other opioids, intentional self-harm, initial encounter (principal); T42.4X2A Poisoning by benzodiazepines, intentional self-harm, initial encounter; E10.65 Type 1 diabetes mellitus with hyperglycemia; F20.9 Schizophrenia, unspecified; T50.906A Underdosing of unspecified drugs, medicaments and biological substances, initial encounter; Z91.128 Patient's intentional underdosing of medication regimen for other reason; Z91.14 Patient's other noncompliance with medication regimen; I10 Essential (primary) hypertension; F41.9 Anxiety disorder, unspecified; Z79.4 Long term (current) use of insulin; Z79.899 Other long term (current) drug therapy; Z79.891 Long term (current) use of opiate analgesic
CPT/HCPCS: 93005; 36415; 82962; 80307 ×4; 85025; 80053; 81001; 93010; J3490 ×2; J1815; 99285

== ENCOUNTER 2019-11-30 06:43 | Emergency (ER) | payer MEDICAID ==
[2019-11-30 06:57] VITALS: BP 148/107
== END 2019-11-30 08:37 | disposition left against medical advice (07) ==
LOC: ER 06:43
DX: Z53.21 Procedure and treatment not carried out due to patient leaving prior to being seen by health care provider (principal); M54.5 Low back pain

== ENCOUNTER 2020-01-01 13:57 | Emergency (ER) | payer MEDICAID ==
[2020-01-01] MEDS ORDERED: NORMAL SALINE 1000 ML 1,000 ML IV ONE (14:13)
--- NOTE | 2020-01-01 14:17 | ER Document Report ---
ED Medical Screen (RME) - General Chief Complaint: Leg Pain Stated Complaint: LEFT LEG PAIN,BACK PAIN Time Seen by Provider: 01/01/20 14:06 Primary Care Provider: JARON ANN MD [Primary Care Provider] - Follow up as needed Mode of Arrival: Ambulatory Information source: Patient Notes: 34-year-old male presented to ED for complaint of pain to his left leg when he stated that he knows he is diabetic and he sometimes has peripheral neuropathy we did an Accu-Chek. His sugar is well over 500. I have tried to convince him to get blood work and IV fluids as well as insulin and he states now he does not want to stay at the hospital he just came in for his pain in his leg he will go home and take his insulin at home and drink lots of fluids and refuses to stay. I have discussed with him with his sugar is high as his is that he would be better served to stay here take some IV fluids and be evaluated for why his sugar is so high. He has refused and has decided he is got a leave AMA. He stated he would call Dr. Ann when he leaves here but does not want to stay in the hospital at this time. TRAVEL OUTSIDE OF THE [place] IN LAST 30 DAYS: No - Related Data Allergies/Adverse Reactions: No Known Allergies Allergy (Verified 10/20/19 15:28) Past Medical History - Social History Family history: Reviewed & Not Pertinent - Past Medical History Cardiac Medical History: Reports: Hx Heart Attack - May 2017., Hx Hypertension Denies: Hx Congestive Heart Failure, Hx DVT, Hx Hypercholesterolemia, Hx Pulmonary Embolism Pulmonary Medical History: Reports: Hx Asthma - as child Denies: Hx COPD, Hx Sleep Apnea Neurological Medical History: Reports: Hx Migraine. Denies: Hx Seizures Endocrine Medical History: Reports: Hx Diabetes Mellitus Type 1. Denies: Hx Diabetes Mellitus Type 2, Hx Hyperthyroidism, Hx Hypothyroidism Renal/ Medical History: Denies: Hx Peritoneal Dialysis GI Medical History: Denies: Hx Cirrhosis, Hx Gastroesophageal Reflux Disease, Hx Hepatitis Musculoskeltal Medical History: Denies Hx Arthritis Psychiatric Medical History: Reports: Hx Anxiety, Hx Bipolar Disorder, Hx Depression, Hx Schizophrenia Infectious Medical History: Denies: Hx C-Diff, Hx Hepatitis, Hx MRSA Past Surgical History: Reports: Hx Appendectomy, Hx Oral Surgery - wisdom teeth, Other - [place] teeth extraction - Immunizations Hx Diphtheria, Pertussis, Tetanus Vaccination: Yes Physical Exam - Vital signs Vitals: Temp Pulse Resp BP Pulse Ox 98.9 F 106 H 16 154/96 H 98 01/01/20 14:00 01/01/20 14:00 01/01/20 14:00 01/01/20 14:00 01/01/20 14:00 Course - Vital Signs Vital signs: Temp Pulse Resp BP Pulse Ox 98.9 F 106 H 16 154/96 H 98 01/01/20 14:00 01/01/20 14:00 01/01/20 14:00 01/01/20 14:00 01/01/20 14:00 Doctor's Discharge - Discharge Clinical Impression: Hyperglycemia Disposition: AGAINST MEDICAL ADVICE Additional Instructions: HYPERGLYCEMIA (HIGH BLOOD SUGAR): You have an abnormally high blood sugar. Not all high blood sugar requires long-term treatment. High blood sugar can be due to medications, , or the stress of illness. (These cases are "borderline diabetes.") If the doctor feels your high blood sugar might resolve with time, you may not require treatment now. It's very important that you follow through, to see if the blood sugar returns to normal levels. Uncontrolled high blood sugar leads to early heart disease, strokes, nerve damage, eye damage, and kidney damage. Call the physician if there is faintness, excess sleepiness, or very rapid breathing. DIABETES: You have an abnormally high blood sugar, suspicious for diabetes. Not all high blood sugar requires long-term treatment. High blood sugar can be due to medications, , or the stress of illness. (These cases are "borderline diabetes.") If the doctor feels your high blood sugar might get better with time, you may not require treatment now. It's very important that you follow through. Uncontrolled high blood sugar leads to early heart disease, strokes, nerve damage, eye damage, and kidney damage. All diabetics should follow a diet designed to control the blood sugar. Overweight diabetics should exercise regularly and lose weight. If this is not sufficient to control the blood sugar, pills or insulin shots are necessary. Younger people who develop diabetes almost always require insulin daily. Home testing of blood sugars or urine sugar is required. Diabetic teaching is available to help you figure insulin doses and monitor the blood sugar. Call the physician if there is faintness, excess sleepiness, or very rapid breathing. If hypoglycemia (LOW blood sugar) develops, symptoms are shakiness, weakness, sweating, and confusion. In this case, you should eat or drink something with sugar at once. INSULIN: Insulin is a natural hormone that lowers blood sugar. Normal blood sugar prevents complications of diabetes. For most diabetics, insulin is the best way to treat the illness. Be sure you know how to measure the insulin correctly. Insulin is measured in "units." There are three types of insulin: N (NPH or long acting), R (regular or short acting), and L (Lente or very long acting). Be sure you are using the right amount of each type. Insulin must be injected into the fat. You can use the abdomen, upper arms, and thighs. Select a different injection site every time. Wipe the site with alcohol before injecting. When first starting insulin, some adjusting of the insulin dose is necessary. Keep a record of each insulin dose and time of injection, and of the blood sugar and the time you test it. Sometimes insulin can make the blood sugar too low. If you become dizzy, sweaty, shaky, or confused, you may be having a hypoglycemic episode. Immediately use juice or some other sweet food. Call the doctor if the symptoms don't go away. The patient has chosen to leave the facility against medical advice. The relevant issues have been reviewed and discussed with the patient and family at the bedside. At the time of this assessment there is no indication for involuntary commitment. The patient is alert, oriented, and able to express clearly their reasoning for not wanting to remain in the emergency department for further treatment. The patient is not clinically psychotic, intoxicated, and denies and suicidal ideation. Differential or suspected diagnoses based on medical screening exam: DKA The patient is aware of the concerning diagnoses and acknowledges understanding of the reasons for the following recommendations: Diet in the hospital get IV fluids blood work The following recommendations/services were offered and refused: I have reviewed with him that he needs IV fluids The following risks were explained: , permanent disability, loss of function Clinical impression: Patient is competent to make decisions regarding the medical that is being offered. Referrals: JARON ANN MD [Primary Care Provider] - Follow up as needed
[2020-01-01 14:24] VITALS: BP 154/96
== END 2020-01-01 14:24 | disposition left against medical advice (07) ==
LOC: ER 13:57
DX: M79.605 Pain in left leg (principal); M54.9 Dorsalgia, unspecified; I10 Essential (primary) hypertension; E10.9 Type 1 diabetes mellitus without complications; I25.2 Old myocardial infarction
CPT/HCPCS: 82962; 99283

== ENCOUNTER 2020-02-25 14:01 | Emergency (ER) | payer MEDICAID ==
[2020-02-25] MEDS ORDERED: ONDANSETRON HCL INJ/PF 4 MG/2 ML SDV IV ONE (14:22)
[2020-02-25] MEDS ORDERED: LABETALOL HCL INJ 20 MG/4 ML DISP.SYRIN IV ONE ×2 (14:43→17:44)
[2020-02-25] MEDS ORDERED: FAMOTIDINE INJ/PF 20 MG/2 ML SDV IV ONE (14:43)
--- NOTE | 2020-02-25 14:50 | ER Document Report ---
ED General - General Chief Complaint: Chest Pain Stated Complaint: CHEST PAIN/VOMITING Time Seen by Provider: 02/25/20 14:19 Primary Care Provider: JARON ANN MD [Primary Care Provider] - Follow up as needed TRAVEL OUTSIDE OF THE [place] IN LAST 30 DAYS: No - HPI Notes: Chief complaint: Vomiting, chest pain and abdominal pain History of present illness: 34-year-old male with longstanding history of diabetes mellitus type 1 marginally compliant with insulin and diet with multiple prior admissions for DKA presents today complaining of awakening this morning with nausea and vomiting accompanied by abdominal pain and chest pain. He denies fever or chills. He says last time he checked his blood sugar at home was 2 days ago and this was about 250 at that time. He has not taken any medications this morning. He also has a history of hypertension. He admits smoking cannabis. He denies any abuse of cocaine or other drugs. He says he rarely consumes alcohol. - Related Data Allergies/Adverse Reactions: No Known Allergies Allergy (Verified 02/25/20 14:39) Past Medical History - General Information source: Patient, [facility] Records - Social History Smoking Status: Current Some Day Smoker Frequency of alcohol use: Rare Drug Abuse: Marijuana Lives with: Family Family History: Reviewed & Not Pertinent, DM, Hypertension - Past Medical History Cardiac Medical History: Reports: Hx Heart Attack - May 2017., Hx Hypertension Denies: Hx Congestive Heart Failure, Hx DVT, Hx Hypercholesterolemia, Hx Pulmonary Embolism Pulmonary Medical History: Reports: Hx Asthma - as child Denies: Hx COPD, Hx Sleep Apnea Neurological Medical History: Reports: Hx Migraine. Denies: Hx Seizures Endocrine Medical History: Reports: Hx Diabetes Mellitus Type 1. Denies: Hx Diabetes Mellitus Type 2, Hx Hyperthyroidism, Hx Hypothyroidism Renal/ Medical History: Denies: Hx Peritoneal Dialysis GI Medical History: Denies: Hx Cirrhosis, Hx Gastroesophageal Reflux Disease, Hx Hepatitis Musculoskeletal Medical History: Denies Hx Arthritis Psychiatric Medical History: Reports: Hx Anxiety, Hx Bipolar Disorder, Hx Depression, Hx Schizophrenia Infectious Medical History: Denies: Hx C-Diff, Hx Hepatitis, Hx MRSA Past Surgical History: Reports: Hx Appendectomy, Hx Oral Surgery - wisdom teeth, Other - [place] teeth extraction - Immunizations Hx Diphtheria, Pertussis, Tetanus Vaccination: Yes Hx Pneumococcal Vaccination: 09/16/00 Review of Systems - Review of Systems Notes: Constitutional: Negative for fever. HENT: Negative for sore throat. Eyes: Negative for visual changes. Cardiovascular: As per HPI Respiratory: Negative for shortness of breath. Gastrointestinal: As per HPI focal. Genitourinary: Urinary frequency. Negative for dysuria. Musculoskeletal: Negative for back pain. Skin: Negative for rash. Neurological: Negative for headaches, weakness or numbness. 10 point ROS negative except as marked above and in HPI. Physical Exam - Vital signs Vitals: Pulse Ox 98 02/25/20 14:07 - Notes Notes: GENERAL: Well-developed well-nourished male approximately stated age who is actively vomiting and appears uncomfortable. SKIN: Good turgor no rashes. HEAD: Normocephalic atraumatic. EYES: PERRLA. EOMI. Conjunctivae and sclerae clear. EARS: CANALS AND TMS CLEAR. NOSE: CLEAR. MOUTH: Moist mucosa. Good dentition. No stridor or edema. No drooling. NECK: Supple. No masses or thyromegaly. No adenopathy. Carotids 2+ without bruits. No JVD. BACK: Symmetrical without tenderness. CHEST: Tachypneic. Breath sounds clear and symmetrical. HEART: Tachycardic regular rhythm. No murmur gallop or rub. ABDOMEN: Mild epigastric tenderness. Soft without masses, organomegaly or rebound. Bowel sounds hyperactive. No bruits. GENITALIA: Deferred. EXTREMITIES: No edema. No calf tenderness. Cap refill less than 1.5 seconds. Dorsalis pedis and posterior tibial pulses 3+ and symmetrical. NEUROLOGICAL: GCS 15. Alert and oriented x3. Fluent speech. Cranial nerves II through XII intact. Sensorimotor and cerebellar normal. Normal tone. PSYCHIATRIC: Flat affect. Course - Re-evaluation Re-evalutation: 02/25/20 14:50 Accu-Chek at the bedside is 536. Suspect this man is back in DKA. Orders initiated for IV fluids/labs and IV Zofran and Pepcid. His blood pressure is also markedly elevated. I questioned him carefully about cocaine he denies this. I looked back through his past records and I do not see that he is tested positive for cocaine previously. I will give him some IV labetalol to lower his blood pressure. His EKG shows sinus tachycardia with no acute ST changes. I requested a troponin level. - Vital Signs Vital signs: Temp Pulse Resp BP Pulse Ox 98.6 F 16 171/103 H 95 02/25/20 14:40 02/25/20 18:01 02/25/20 18:01 02/25/20 18:01 - Laboratory Result Diagrams: 02/25/20 15:48 02/25/20 15:50 Laboratory results interpreted by me: 02/25/20 02/25/20 02/25/20 14:36 15:48 15:50 WBC 10.6 H Seg Neuts % (Manual) 92 H Lymphocytes % (Manual) 6 L Monocytes % (Manual) 2 L Abs Neuts (Manual) 9.8 H Sodium 130.1 L Potassium 5.3 H Chloride 83 L Carbon Dioxide 34 H BUN 26 H Creatinine 2.81 H Est GFR ( Amer) 31 L Est GFR (MDRD) Non-Af 26 L Glucose 632 H* POC Glucose > 550 H* Total Protein 8.3 H Urine Protein Urine Glucose (UA) Urine Ketones Urine Blood 02/25/20 02/25/20 17:10 18:30 WBC Seg Neuts % (Manual) Lymphocytes % (Manual) Monocytes % (Manual) Abs Neuts (Manual) Sodium Potassium Chloride Carbon Dioxide BUN Creatinine Est GFR ( Amer) Est GFR (MDRD) Non-Af Glucose POC Glucose 496 H* Total Protein Urine Protein 100 H Urine Glucose (UA) >=500 H Urine Ketones TRACE H Urine Blood SMALL H - EKG Interpretation by Me Additional EKG results interpreted by me: 02/25/20 14:54 Twelve-lead EKG from 1415 hrs. reviewed contemporaneously by me demonstrating sinus tachycardia with a rate of 123. Intervals are normal. QRS axis is +47 degrees. Nonspecific T wave changes are noted with no acute ST shift. When compared with prior tracing of 10/25/2019 we note that the rate has increased and previously noted inferolateral T wave inversions have resolved. Indication for current study: Chest pain and vomiting. Critical Care Note - Critical Care Note Total time excluding time spent on procedures (mins): 65 - IV Labetalol. IV insulin drip. Discharge - Discharge Clinical Impression: Hyperglycemia with hyperosmolar state, Hypertensive urgency Condition: Fair Disposition: ADMITTED INPATIENT Admitting Provider: Isael Unit Admitted: [facility] Referrals: JARON ANN MD [Primary Care Provider] - Follow up as needed
[2020-02-25] MEDS ORDERED: KETOROLAC TROMETHAMINE INJ/PF 30 MG/1 ML SDV IV ONE (15:44)
[2020-02-25] MEDS: NORMAL SALINE 1000 ML 1,000 ML IV PRN ×2 (15:51→17:01)
--- NOTE | 2020-02-25 15:51 | RADIOLOGY REPORT (SQ) ---
EXAM DESCRIPTION: CHEST SINGLE VIEW IMAGES COMPLETED DATE/TIME: 02/25/2020 3:23 pm REASON FOR STUDY: CP COMPARISON: None. NUMBER OF VIEWS: One view. TECHNIQUE: Single frontal radiographic view of the chest acquired. LIMITATIONS: None. FINDINGS: LUNGS AND PLEURA: No opacities, masses or pneumothorax. No pleural effusion. MEDIASTINUM AND HILAR STRUCTURES: No masses. Contour normal. HEART AND VASCULAR STRUCTURES: Heart normal in size. Normal vasculature. BONES: No acute findings. HARDWARE: None in the chest. OTHER: No other significant finding. IMPRESSION: NO SIGNIFICANT RADIOGRAPHIC FINDING IN THE CHEST. TECHNICAL DOCUMENTATION: JOB ID: [id number] 2010 [facility]- All Rights Reserved Reading location - IP/workstation name: [email or web address]
[2020-02-25 15:58] LABS: VENOUS BLOOD HCO3 31.1 mmol/L (20-32); VENOUS BLOOD PCO2 62.9 mmHg (35-63); VENOUS BLOOD PH 7.31 (7.30-7.42)
[2020-02-25 16:02] LABS: HEMOGLOBIN 14.1 g/dL (13.5-17.0); MEAN CORPUSCULAR HEMOGLOBIN 27.6 pg (27.0-33.4); MEAN CORPUSCULAR HGB CONC 33.6 g/dL (32.0-36.0); MEAN CORPUSCULAR VOLUME 82 fl (80-97); PLATELET COUNT 292 10^3/uL (150-450); RED BLOOD COUNT 5.11 10^6/uL (4.35-5.55); RED CELL DISTRIBUTION WIDTH 13.9 % (11.5-14.0); WHITE BLOOD COUNT 10.6 10^3/uL (4.0-10.5)
[2020-02-25 16:18] LABS: ALBUMIN 4.9 g/dL (3.5-5.0); ALKALINE PHOSPHATASE 123 U/L (38-126); ANION GAP 13 (5-19); ASPARTATE AMINO TRANSFERASE 18 U/L (17-59); BILIRUBIN,DIRECT 0.2 mg/dL (0.0-0.4); BILIRUBIN,TOTAL 0.7 mg/dL (0.2-1.3); BLOOD UREA NITROGEN 26 mg/dL (7-20); CALCIUM 10.2 mg/dL (8.4-10.2); CARBON DIOXIDE 34 mmol/L (22-30); CHLORIDE 83 mmol/L (98-107); CREATINE KINASE 165 U/L (55-170); POTASSIUM 5.3 mmol/L (3.6-5.0); TOTAL PROTEIN 8.3 g/dL (6.3-8.2)
[2020-02-25 16:30] LABS: CREATINE KINASE MB 1.93 ng/mL (<4.55)
[2020-02-25 16:31] LABS: TROPONIN I < 0.012 ng/mL
[2020-02-25 16:34] LABS: ABSOLUTE LYMPHOCYTES# (MANUAL) 0.6 10^3/uL (0.5-4.7); ABSOLUTE MONOCYTES # (MANUAL) 0.2 10^3/uL (0.1-1.4); BASOPHILS % (MANUAL) 0 % (0-2); EOSINOPHILS % (MANUAL) 0 % (0-6); LYMPHOCYTES % (MANUAL) 6 % (13-45); MONOCYTES % (MANUAL) 2 % (3-13); SEGMENTED NEUTROPHILS % (MAN) 92 % (42-78); TOTAL CELLS COUNTED 100
[2020-02-25 16:36] LABS: OVALOCYTES SLIGHT; PLATELET COMMENT ADEQUATE; PLATELET LARGE PRESENT; POIKILOCYTOSIS SLIGHT
--- NOTE | 2020-02-25 17:30 | EKG REPORT ---
SEVERITY:- ABNORMAL ECG - SINUS TACHYCARDIA NONSPECIFIC T ABNORMALITIES, DIFFUSE LEADS : Confirmed by: Arin Drummond MD 25-Feb-2020 17:28:52
[2020-02-25 17:40] LABS: APPEARANCE,URINE CLEAR; BILIRUBIN,URINE NEGATIVE (NEGATIVE); COLOR,URINE STRAW; GLUCOSE, URINE >=500 mg/dL (NEGATIVE); KETONES,URINE TRACE mg/dL (NEGATIVE); PROTEIN,URINE 100 mg/dL (NEGATIVE); URINE SPECIFIC GRAVITY 1.016; UROBILINOGEN,URINE NEGATIVE mg/dL (<2.0)
[2020-02-25] MEDS ORDERED: NORMAL SALINE 100 ML with INSULIN REGULAR, HUMAN 100 UNIT IV PRN ×2 (17:48)
[2020-02-25 17:50] LABS: GLUCOSE 632 mg/dL (75-110)
[2020-02-25 17:55] LABS: URINE AMPHETAMINES SCREEN NEGATIVE; URINE BARBITURATES SCREEN NEGATIVE; URINE BENZODIAZEPINES SCREEN UNCONFIRMED POSITIVE; URINE COCAINE SCREEN NEGATIVE; URINE MARIJUANA (THC) SCREEN NEGATIVE; URINE METHADONE SCREEN NEGATIVE; URINE PHENCYCLIDINE SCREEN NEGATIVE
[2020-02-25] MEDS ORDERED: INSULIN REG, HUMAN 100 UNIT/ML 3 ML VIAL (PYX) ONE (18:08)
[2020-02-25] MEDS ORDERED: FENTANYL CITRATE INJ/PF 100 MCG/2 ML AMPUL IV ONE (19:18)
[2020-02-25 20:31] VITALS: BP 155/97
== END 2020-02-25 20:37 | disposition left against medical advice (07) ==
LOC: ER 14:01 → EH 20:08 → UNDOADMIN 20:08
DX: E10.65 Type 1 diabetes mellitus with hyperglycemia (principal); I16.1 Hypertensive emergency; R07.9 Chest pain, unspecified; R11.10 Vomiting, unspecified; R10.9 Unspecified abdominal pain; Z79.4 Long term (current) use of insulin; I10 Essential (primary) hypertension; F12.10 Cannabis abuse, uncomplicated; F17.200 Nicotine dependence, unspecified, uncomplicated; I25.2 Old myocardial infarction; J45.909 Unspecified asthma, uncomplicated
CPT/HCPCS: 93005; 96376; 99291; 96361; 96374; 96375; 36415; 82553; 82962; 82550; 83690; 83735; 85025; 80053; 81001; 84484; 80307; 82803; 71045; 93010; J3010; J3490; J1885; J7030; S0028; J2405

== ENCOUNTER 2020-02-27 06:18 | Inpatient (IN) | payer MEDICAID ==
[2020-02-27] MEDS ORDERED: NORMAL SALINE 1000 ML 1,000 ML IV ONE ×3 (06:41→09:26)
[2020-02-27] MEDS ORDERED: ONDANSETRON HCL INJ/PF 4 MG/2 ML SDV IV ONE ×3 (06:41→17:45)
[2020-02-27] MEDS ORDERED: MORPHINE SULFATE 10 MG/ML INJ IV ONE ×4 (06:53→09:51)
--- NOTE | 2020-02-27 07:00 | ER Document Report ---
ED General - General Chief Complaint: Epigastric Pain Stated Complaint: CHEST PAINS, VOMITING Time Seen by Provider: 02/27/20 06:39 Primary Care Provider: JARON ANN MD [Primary Care Provider] - Follow up as needed Notes: HPI: 34-year-old male with past medical history as recorded include uncontrolled diabetes and high blood pressure who presents today with some vomiting as well as diffuse epigastric and lower abdominal pain and chest pain. He states that this started 2 days ago. He was seen for similar complaints at that time with initial elevated blood glucose in the 500s. Work-up was otherwise unremarkable at that time. Patient states he did not take his insulin today. He states 4-5 bouts of nonbloody emesis. He denies any fevers or diarrhea. He denies any radiation of the pain, aggravating relieving factors. He denies any cough or shortness of breath. Denies any calf pain or leg swelling. ROS: See HPI All other review of systems reviewed and otherwise negative Reviewed vital signs and nursing note as charted by RN. PHYSICAL EXAM: CONSTITUTIONAL: Alert and oriented and responds appropriately to questions. Patient appears to be in discomfort and is uncapped HEAD: Normocephalic; atraumatic EYES: PERRL; Conjunctivae clear, sclerae non-icteric ENT: Normal nose; no rhinorrhea; moist mucous membranes; pharynx without lesions noted NECK: Supple without meningismus; non-tender; no cervical lymphadenopathy, no masses CARD: Tachycardic but regular; no murmurs; symmetric distal pulses RESP: Normal chest excursion without splinting or tachypnea; breath sounds clear and equal bilaterally; no obvious Kussmaul breathing; no wheezes, no rhonchi, no rales ABD/GI: Normal bowel sounds; non-distended; soft, mild tenderness to palpation of all 4 quadrants of the abdomen. No rebound or guarding. No palpable masses or abdominal bruits BACK: The back appears normal and is non-tender to palpation EXT: Normal ROM in all joints; non-tender to palpation; no edema SKIN: No acute lesions noted NEURO: CN 2-12 intact; 5/5 bilateral upper and lower extremity strength with sensation intact to light touch PSYCH: The patient's mood and manner are appropriate. Grooming and personal hygiene are appropriate. TRAVEL OUTSIDE OF THE [place] IN LAST 30 DAYS: No - Related Data Allergies/Adverse Reactions: No Known Allergies Allergy (Verified 02/25/20 14:39) Home Medications: insulin. bp med Past Medical History - Social History Smoking Status: Current Every Day Smoker Frequency of alcohol use: None Drug Abuse: None Family History: Reviewed & Not Pertinent, DM, Hypertension Patient has homicidal ideation: No - Past Medical History Cardiac Medical History: Reports: Hx Heart Attack - May 2017., Hx Hypertension Denies: Hx Congestive Heart Failure, Hx DVT, Hx Hypercholesterolemia, Hx Pulmonary Embolism Pulmonary Medical History: Reports: Hx Asthma - as child Denies: Hx COPD, Hx Sleep Apnea Neurological Medical History: Reports: Hx Migraine. Denies: Hx Seizures Endocrine Medical History: Reports: Hx Diabetes Mellitus Type 1. Denies: Hx Diabetes Mellitus Type 2, Hx Hyperthyroidism, Hx Hypothyroidism Renal/ Medical History: Denies: Hx Peritoneal Dialysis GI Medical History: Denies: Hx Cirrhosis, Hx Gastroesophageal Reflux Disease, Hx Hepatitis Musculoskeletal Medical History: Denies Hx Arthritis Psychiatric Medical History: Reports: Hx Anxiety, Hx Bipolar Disorder, Hx Depression, Hx Schizophrenia Infectious Medical History: Denies: Hx C-Diff, Hx Hepatitis, Hx MRSA Past Surgical History: Reports: Hx Appendectomy, Hx Oral Surgery - wisdom teeth, Other - [place] teeth extraction - Immunizations Hx Diphtheria, Pertussis, Tetanus Vaccination: Yes Hx Pneumococcal Vaccination: 09/16/00 Physical Exam - Vital signs Vitals: Temp 97.2 F 02/27/20 06:33 Course - Re-evaluation Re-evalutation: 02/27/20 06:59 Given the above history and physical we will obtain basic labs, Accu-Chek, x-ray of the chest and abdomen, venous blood gas, provide pain and fluids, and reassess. I would like to assess for the possibility of diabetic ketoacidosis. Patient's lungs are clear with good oxygen saturation. Given the constellation of symptoms with the patient having previous multiple visits for similar complaints, I do believe PE, dissection, ACS, and acute abdominal obstruction to be unlikely. I will recheck the patient's blood pressure after treatment. EKG shows a heart of 125, sinus tachycardia, normal axis, no obvious ST elevation. Inverted T waves laterally. Previous EKG 3 days ago shows similar findings with less inverted T waves in V5 and V6 02/27/20 08:12 Labs as recorded. Patient appears to be in acute renal failure. X-ray as recorded. Baseline creatinine appears to be around 1.5. Patient's creatinine was elevated 2 days ago as well. 02/27/20 09:20 Patient meets criteria for diabetic ketoacidosis. 2 L of fluid have been provided. I have started the patient on insulin drip as well as normal saline at 250 an hour. Patient will be admitted to the [facility] by Dr. Curran. 02/27/20 09:25 We will await on the urine drug screen before providing any beta-elaina blood pressure medications. Patient seems to only take lisinopril. He has been noncompliant. Patient's creatinine as recorded. 2 L of fluid have been provided. I will provide a third. I will also start normal saline at 250 an hour with 20 mEq of KCl instead of 40 given the patient's acute kidney failure. - Vital Signs Vital signs: Temp Pulse Resp BP Pulse Ox 97.2 F 130 H 21 H 182/103 H 100 02/27/20 06:38 02/27/20 06:38 02/27/20 08:09 02/27/20 07:01 02/27/20 08:09 - Laboratory Result Diagrams: 02/27/20 06:56 02/27/20 06:56 Laboratory results interpreted by me: 02/27/20 02/27/20 02/27/20 06:56 06:56 07:40 WBC 11.3 H Hgb 13.2 L Lymph % (Auto) 12.4 L Absolute Neuts (auto) 9.4 H Seg Neutrophils % 82.9 H VBG pH VBG HCO3 Sodium 131.9 L Chloride 91 L Carbon Dioxide 20 L Anion Gap 21 H BUN 37 H Creatinine 2.38 H Est GFR ( Amer) 38 L Est GFR (MDRD) Non-Af 31 L Glucose 612 H* POC Glucose 510 H* Urine Protein Urine Glucose (UA) Urine Ketones Urine Blood 02/27/20 02/27/20 08:00 08:55 WBC Hgb Lymph % (Auto) Absolute Neuts (auto) Seg Neutrophils % VBG pH 7.26 L VBG HCO3 19.0 L Sodium Chloride Carbon Dioxide Anion Gap BUN Creatinine Est GFR ( Amer) Est GFR (MDRD) Non-Af Glucose POC Glucose Urine Protein 100 H Urine Glucose (UA) >=500 H Urine Ketones 80 H Urine Blood SMALL H Critical Care Note - Critical Care Note Total time excluding time spent on procedures (mins): 35 Discharge - Discharge Clinical Impression: Diabetic ketoacidosis Qualifiers: Diabetes mellitus type: type 1 Diabetes mellitus complication detail: without coma Qualified Code(s): E10.10 - Type 1 diabetes mellitus with ketoacidosis without coma Acute renal failure Qualifiers: Acute renal failure type: unspecified Qualified Code(s): N17.9 - Acute kidney failure, unspecified Vomiting Qualifiers: Vomiting type: unspecified Vomiting Intractability: non-intractable Nausea presence: with nausea Qualified Code(s): R11.2 - Nausea with vomiting, unspecified Condition: Serious Disposition: ADMITTED INPATIENT Admitting Provider: Isael Unit Admitted: [facility] Referrals: JARON ANN MD [Primary Care Provider] - Follow up as needed
[2020-02-27 07:22] LABS: ABSOLUTE BASOPHILS # (AUTO) 0.1 10^3/uL (0.0-0.2); ABSOLUTE EOSINOPHILS # (AUTO) 0.1 10^3/uL (0.0-0.6); ABSOLUTE LYMPHOCYTES (AUTO) 1.4 10^3/uL (0.5-4.7); ABSOLUTE MONOCYTES (AUTO) 0.4 10^3/uL (0.1-1.4); ABSOLUTE NEUT (AUTO) 9.4 10^3/uL (1.7-8.2); BASOPHILS % (AUTO) 0.8 % (0-2); EOSINOPHILS % (AUTO) 0.6 % (0-6); HEMATOCRIT 40.8 % (37.9-51.0); HEMOGLOBIN 13.2 g/dL (13.5-17.0); LYMPHOCYTES % (AUTO) 12.4 % (13-45); MEAN CORPUSCULAR HGB CONC 32.4 g/dL (32.0-36.0); MEAN CORPUSCULAR VOLUME 83 fl (80-97); MONOCYTES % (AUTO) 3.3 % (3-13); PLATELET COUNT 288 10^3/uL (150-450); RED CELL DISTRIBUTION WIDTH 13.7 % (11.5-14.0); SEGMENTED NEUTROPHILS % (AUTO) 82.9 % (42-78); TOTAL CELLS COUNTED % (AUTO) 100 %; WHITE BLOOD COUNT 11.3 10^3/uL (4.0-10.5)
[2020-02-27 07:38] LABS: ALBUMIN 4.2 g/dL (3.5-5.0); ALKALINE PHOSPHATASE 116 U/L (38-126); ASPARTATE AMINO TRANSFERASE 18 U/L (17-59); BILIRUBIN,DIRECT 0.3 mg/dL (0.0-0.4); BILIRUBIN,TOTAL 0.8 mg/dL (0.2-1.3); BLOOD UREA NITROGEN 37 mg/dL (7-20); CALCIUM 9.8 mg/dL (8.4-10.2); CARBON DIOXIDE 20 mmol/L (22-30); POTASSIUM 4.7 mmol/L (3.6-5.0); TOTAL PROTEIN 7.1 g/dL (6.3-8.2)
--- NOTE | 2020-02-27 07:38 | RADIOLOGY REPORT (SQ) ---
EXAM DESCRIPTION: XR ABDOMEN SUPINE AND ERECT WITH CHEST (ABD ACUTE SERIES) COMPLETED DATE/TME: 02/27/2020 06:41 CLINICAL HISTORY: 8; vomiting COMPARISON: None. FINDINGS: Single frontal view of the chest with upright and spine views of the abdomen.. Cardiomediastinal silhouette: Normal size and contour. Lungs: No consolidation, pneumothorax, or pleural effusion. Leads overlie the chest. Bones: No acute osseous abnormality. Abdomen: No free intraperitoneal air. No dilated loops of large or small bowel. Large amount stool. No abnormal calcifications. IMPRESSION: 1. No acute pulmonary process identified. 2. Nonobstructive bowel gas pattern.
[2020-02-27 07:43] LABS: CHLORIDE 91 mmol/L (98-107)
[2020-02-27 07:46] LABS: ANION GAP 21 (5-19)
[2020-02-27 07:47] LABS: GLUCOSE 612 mg/dL (75-110)
[2020-02-27 08:22] LABS: APPEARANCE,URINE CLEAR; BILIRUBIN,URINE NEGATIVE (NEGATIVE); COLOR,URINE STRAW; GLUCOSE, URINE >=500 mg/dL (NEGATIVE); KETONES,URINE 80 mg/dL (NEGATIVE); LEUKOCYTE ESTERASE,URINE NEGATIVE (NEGATIVE); NITRITE,URINE NEGATIVE (NEGATIVE); PROTEIN,URINE 100 mg/dL (NEGATIVE); URINE SPECIFIC GRAVITY 1.015; UROBILINOGEN,URINE NEGATIVE mg/dL (<2.0)
[2020-02-27] MEDS ORDERED: PANTOPRAZOLE SODIUM 40 MG VIAL IV ONE (08:27)
[2020-02-27 09:09] LABS: VENOUS BLOOD BASE EXCESS -7.8 mmol/L; VENOUS BLOOD PCO2 43.5 mmHg (35-63); VENOUS BLOOD PH 7.26 (7.30-7.42)
[2020-02-27] MEDS ORDERED: NORMAL SALINE 100 ML with INSULIN REGULAR, HUMAN 100 UNIT IV PRN ×2 (09:17)
[2020-02-27] MEDS ORDERED: DEXTROSE 40% GEL 15 GM TUBE PO PRN ×4 (09:17→14:55)
[2020-02-27] MEDS ORDERED: GLUCAGON,HUMAN RECOMB 1 MG INJ IM PRN ×2 (09:17→14:55)
[2020-02-27] MEDS ORDERED: DEXTROSE 50%-WATER 25 GM/50 ML DISP.SYRIN IV PRN ×4 (09:17→14:55)
[2020-02-27] MEDS ORDERED: POTASSI CL 20 MEQ/NS 1L 1,000 ML IV ONE (09:24)
--- NOTE | 2020-02-27 09:45 | EKG REPORT ---
SEVERITY:- ABNORMAL ECG - SINUS TACHYCARDIA PROBABLE LEFT ATRIAL ABNORMALITY ABNORMAL T, CONSIDER ISCHEMIA, DIFFUSE LEADS : Confirmed by: Arin Drummond MD 27-Feb-2020 09:44:56
[2020-02-27] MEDS ORDERED: INSULIN REG, HUMAN 100 UNIT/ML 3 ML VIAL (PYX) ONE (10:10)
[2020-02-27 10:27] LABS: URINE AMPHETAMINES SCREEN NEGATIVE; URINE BARBITURATES SCREEN NEGATIVE; URINE COCAINE SCREEN NEGATIVE; URINE MARIJUANA (THC) SCREEN NEGATIVE; URINE METHADONE SCREEN NEGATIVE; URINE PHENCYCLIDINE SCREEN NEGATIVE
[2020-02-27 10:28] LABS: URINE BENZODIAZEPINES SCREEN UNCONFIRMED POSITIVE
[2020-02-27] MEDS ORDERED: ACETAMINOPHEN 325 MG TABLET PO PRN (11:15)
[2020-02-27] MEDS: ONDANSETRON HCL INJ/PF 4 MG/2 ML SDV IV PRN ×2 (13:35→17:06)
[2020-02-27] MEDS ORDERED: NORMAL SALINE 1000 ML 1,000 ML IV PRN (14:50)
[2020-02-27] MEDS ORDERED: HYDROXYZINE PAMOATE 25 MG CAPSULE PO PRN (14:56)
[2020-02-27] MEDS ORDERED: ENOXAPARIN SODIUM INJ 40 MG/0.4 ML DISP.SYRIN SUBCUT SCH (15:00)
[2020-02-27] MEDS ORDERED: CITALOPRAM HYDROBROMIDE 20 MG TABLET PO SCH (15:00)
[2020-02-27] MEDS ORDERED: (PENDING PHARMACY ID) (Lisinopril [Zestril] 2.5 MG) PO SCH (15:00)
[2020-02-27 15:51] LABS: ANION GAP 14 (5-19); BLOOD UREA NITROGEN 34 mg/dL (7-20); CALCIUM 9.3 mg/dL (8.4-10.2); CARBON DIOXIDE 21 mmol/L (22-30); CHLORIDE 104 mmol/L (98-107); GLUCOSE 286 mg/dL (75-110); POTASSIUM 4.6 mmol/L (3.6-5.0)
[2020-02-27] MEDS ORDERED: BUSPIRONE HCL 10 MG TABLET PO SCH (16:00)
[2020-02-27] MEDS ORDERED: LISINOPRIL 5 MG TABLET PO SCH (16:00)
[2020-02-27] MEDS ORDERED: INSULIN LISPRO 100 UNIT/ML 3 ML VIAL SUBCUT SCH ×2 (17:00)
[2020-02-27] MEDS ORDERED: INSULIN GLARGINE,HUM.REC.ANLOG 1,000 UNIT/10 ML VIAL (PYX) SUBCUT ONE (17:00)
--- NOTE | 2020-02-27 17:05 | PDOC H&P ---
History of Present Illness Admission Date/PCP: 02/27/20 09:33 JARON ANN MD History of Present Illness: LENA SCHULZ is a 34 year old male, He has underlining schizophrenia, type 1 diabetes mellitus with poor medication adherence extremely noncompliant with diabetic care management patient on a slippery slope to developing vasculopathy with all the sequelae including retinopathy, nephropathy and ultimately . He came to the emergency room today in DKA which is the usual presentation, he has presented in this fashion multiple times in DKA a manifestation of poor control of his diabetes mellitus. He was in the emergency room about 3 days ago, he was offered inpatient care he left AMA from the emergency room before the inpatient care could be instituted. I recently saw him in the office, I have referred him multiple times to endocrinology with the intent for him to get insulin pump which is best suited for his type 1 diabetes,He never kept the appointment with the endocrine doctors. Past Medical History Cardiac Medical History: Reports: Myocardial Infarction - May 2017., Hypertension Pulmonary Medical History: Reports: Asthma - as child Neurological Medical History: Reports: Migraine Endocrine Medical History: Reports: Diabetes Mellitus Type 1 Psychiatric Medical History: Reports: Bipolar Disorder, Depression, Schizoaffective Disorder Hematology: Reports: Anemia Past Surgical History Past Surgical History: Reports: Appendectomy, Other - [place] teeth extraction Social History Smoking Status: Current Every Day Smoker Frequency of Alcohol Use: None Hx Recreational Drug Use: No Drugs: None Hx Prescription Drug Abuse: No Family History Family History: Reviewed & Not Pertinent, DM, Hypertension Parental Family History Reviewed: Yes Children Family History Reviewed: Yes Sibling(s) Family History Reviewed.: Yes Medication/Allergy Home Medications: RX: Insulin Glargine,Hum.rec.anlog [Lantus Insulin 100 Unit/1 ml 10 ml] 35 unit SUBCUT DAILY 08/21/19 RX: Quetiapine Fumarate [Seroquel] 800 mg PO QHS 08/21/19 RX: Trazodone HCl [Desyrel] 100 mg PO QHS 08/21/19 Buspirone HCl 5 mg PO DAILY 02/25/20 Lisinopril [Zestril] 2.5 mg PO DAILY 02/25/20 Citalopram Hydrobromide [Celexa] 40 mg PO DAILY 02/26/20 Hydroxyzine Pamoate [Vistaril] 25 mg PO TIDP PRN 02/26/20 Mirtazapine [Remeron 15 mg Tablet] 45 mg PO QHS 02/26/20 RX: Prazosin HCl 1 mg PO QHS 02/26/20 Ropinirole HCl [Requip] 0.5 mg PO QHS 02/26/20 RX: Insulin Lispro [Humalog Insulin (Lispro) 100 unit/mL] 15 units SUBCUT MEALS 02/27/20 Allergies/Adverse Reactions: No Known Allergies Allergy (Verified 02/25/20 14:39) Review of Systems Constitutional: ABSENT: chills, fever(s), headache(s), weight gain, weight loss Eyes: ABSENT: visual disturbances Ears: ABSENT: hearing changes Cardiovascular: ABSENT: chest pain, dyspnea on exertion, edema, orthropnea, palpitations Respiratory: ABSENT: cough, hemoptysis Gastrointestinal: PRESENT: abdominal pain, vomiting Genitourinary: ABSENT: dysuria, hematuria Musculoskeletal: ABSENT: joint swelling Integumentary: ABSENT: rash, wounds Neurological: ABSENT: abnormal gait, abnormal speech, confusion, dizziness, focal weakness, syncope Psychiatric: ABSENT: anxiety, depression, homidical ideation, suicidal ideation Endocrine: ABSENT: cold intolerance, heat intolerance, menstrual abnormalities, polydipsia, polyuria Hematologic/Lymphatic: ABSENT: easy bleeding, easy bruising, lymphadenopathy Physical Exam Vital Signs: Temp Pulse Resp BP Pulse Ox 98.0 F 132 H 16 202/107 H 98 02/27/20 12:15 02/27/20 14:00 02/27/20 12:15 02/27/20 12:15 02/27/20 12:15 Intake & Output 02/26/20 02/27/20 02/28/20 06:59 06:59 06:59 Intake Total 2587 Output Total 1900 Balance 687 Weight 83.915 kg General appearance: PRESENT: no acute distress Head exam: PRESENT: atraumatic, normocephalic Eye exam: PRESENT: conjunctiva pink, EOMI, PERRLA Ear exam: PRESENT: normal external ear exam Mouth exam: PRESENT: moist, tongue midline Neck exam: PRESENT: full ROM Respiratory exam: PRESENT: clear to auscultation juan ramon Cardiovascular exam: PRESENT: RRR, +S1, +S2 Pulses: PRESENT: normal dorsalis pedis pul, +2 pedal pulses bilateral Vascular exam: PRESENT: normal capillary refill GI/Abdominal exam: PRESENT: normal bowel sounds, soft Rectal exam: PRESENT: deferred Neurological exam: PRESENT: alert, awake, oriented to person, oriented to place, oriented to time, oriented to situation, CN II-XII grossly intact Psychiatric exam: PRESENT: appropriate affect, normal mood Skin exam: PRESENT: dry, intact, warm Results Laboratory Results: 02/27/20 06:56 02/27/20 15:10 02/27/20 02/27/20 02/27/20 06:56 06:56 08:00 WBC 11.3 H RBC 4.90 Hgb 13.2 L Hct 40.8 MCV 83 MCH 27.0 MCHC 32.4 RDW 13.7 Plt Count 288 Seg Neutrophils % 82.9 H VBG pH VBG pCO2 VBG HCO3 VBG Base Excess Sodium 131.9 L Potassium 4.7 Chloride 91 L Carbon Dioxide 20 L Anion Gap 21 H BUN 37 H Creatinine 2.38 H Est GFR ( Amer) 38 L Glucose 612 H* Calcium 9.8 Total Bilirubin 0.8 AST 18 Alkaline Phosphatase 116 Total Protein 7.1 Albumin 4.2 Lipase 46.9 Urine Color STRAW Urine Appearance CLEAR Urine pH 5.0 Ur Specific [place] 1.015 Urine Protein 100 H Urine Glucose (UA) >=500 H Urine Ketones 80 H Urine Blood SMALL H Urine Nitrite NEGATIVE Ur Leukocyte Esterase NEGATIVE Urine WBC (Auto) 1 Urine RBC (Auto) 0 02/27/20 02/27/20 08:55 15:10 WBC RBC Hgb Hct MCV MCH MCHC RDW Plt Count Seg Neutrophils % VBG pH 7.26 L VBG pCO2 43.5 VBG HCO3 19.0 L VBG Base Excess -7.8 Sodium 138.7 Potassium 4.6 Chloride 104 Carbon Dioxide 21 L Anion Gap 14 BUN 34 H Creatinine 2.09 H Est GFR ( Amer) 44 L Glucose 286 H Calcium 9.3 Total Bilirubin AST Alkaline Phosphatase Total Protein Albumin Lipase Urine Color Urine Appearance Urine pH Ur Specific [place] Urine Protein Urine Glucose (UA) Urine Ketones Urine Blood Urine Nitrite Ur Leukocyte Esterase Urine WBC (Auto) Urine RBC (Auto) Impressions: Acute Abdomen Series 02/27/20 06:41 IMPRESSION: 1. No acute pulmonary process identified. 2. Nonobstructive bowel gas pattern. Assessment & Plan - Diagnosis (1) Diabetic ketoacidosis associated with type 1 diabetes mellitus Qualifiers: Diabetes mellitus complication detail: without coma Qualified Code(s): E10.10 - Type 1 diabetes mellitus with ketoacidosis without coma Is this a current diagnosis for this admission?: Yes Plan: Patient is admitted for the management of DKA, on intravenous insulin infusion this will continue until anion gap is below 12, continue normal saline, Accu- Chek every hour transition to 5% normal saline once Accu-Chek is below 250 - Time Time Spent: Greater than 70 Minutes Smoking Cessation Education: 3 to 10 minutes Medications reviewed and adjusted accordingly: Yes
[2020-02-27] MEDS ORDERED: ONDANSETRON HCL INJ/PF 4 MG/2 ML SDV IV PRN (17:30)
[2020-02-27 17:57] VITALS: BP 190/114
[2020-02-27] MEDS ORDERED: (PENDING PHARMACY ID) (Prazosin Hcl [Prazosin Hcl] 1 MG) PO SCH (22:00)
[2020-02-27] MEDS ORDERED: TRAZODONE HCL 50 MG TABLET PO SCH (22:00)
[2020-02-27] MEDS ORDERED: ROPINIROLE HCL 0.25 MG TABLET PO SCH (22:00)
[2020-02-27] MEDS ORDERED: QUETIAPINE FUMARATE 100 MG TABLET PO SCH (22:00)
[2020-02-27] MEDS ORDERED: MIRTAZAPINE 15 MG TABLET PO SCH (22:00)
[2020-02-27] MEDS ORDERED: (PENDING PHARMACY ID) (Quetiapine Fumarate [Seroquel] 800 MG) PO SCH (22:00)
[2020-02-27] MEDS ORDERED: (PENDING PHARMACY ID) (Trazodone Hcl [Desyrel] 100 MG) PO SCH (22:00)
--- NOTE | 2020-02-27 22:54 | Left Against Medical Advice ---
Against Medical Advice Admission Date/Time: 02/27/20 09:33 Primary Care Provider: JARON ANN MD Date of Patient Emigration: 02/27/20 - Diagnosis: (1) Diabetic ketoacidosis associated with type 1 diabetes mellitus Is this a current diagnosis for this admission?: Yes - Summary: Summary: Please see Admission and Progress Notes as well. LENA SCHULZ is a 34 M, who LEFT AGAINST MEDICAL ADVICE. The Patient was admitted on 02/27/20 09:33.See H&P for details, he left AMA today
[2020-02-28] MEDS ORDERED: INSULIN GLARGINE,HUM.REC.ANLOG 1,000 UNIT/10 ML VIAL SUBCUT SCH (10:00)
== END 2020-02-27 18:20 | disposition left against medical advice (07) | DRG 638 ==
LOC: ER 06:18 → EH 09:33 → 3N 10:53
PROVIDERS: ADMIT Internal Medicine; ATTEND Internal Medicine
DX: E10.10 Type 1 diabetes mellitus with ketoacidosis without coma (principal); N17.9 Acute kidney failure, unspecified; T38.3X6A Underdosing of insulin and oral hypoglycemic [antidiabetic] drugs, initial encounter; Z91.128 Patient's intentional underdosing of medication regimen for other reason; F17.200 Nicotine dependence, unspecified, uncomplicated; Z83.3 Family history of diabetes mellitus; Z82.49 Family history of ischemic heart disease and other diseases of the circulatory system; I25.2 Old myocardial infarction; I10 Essential (primary) hypertension; Z86.14 Personal history of Methicillin resistant Staphylococcus aureus infection; Z90.49 Acquired absence of other specified parts of digestive tract; F25.9 Schizoaffective disorder, unspecified; F32.9 Major depressive disorder, single episode, unspecified; F31.9 Bipolar disorder, unspecified; Z79.4 Long term (current) use of insulin
CPT/HCPCS: 36415; 74022; 80053; 80307; 81001; 82803; 82962; 83690; 85025; 93005; 93010; 96361; 96374; 96375; 96376; 99285; C9113; J1815; J2270; J2405; J3480; J7030

== ENCOUNTER 2020-02-28 20:40 | Emergency (ER) | payer MEDICAID ==
[2020-02-28] MEDS ORDERED: NORMAL SALINE 1000 ML 1,000 ML IV PRN (21:05)
--- NOTE | 2020-02-28 21:05 | ER Document Report ---
ED Medical Screen (RME) - General Chief Complaint: Chest Pain Stated Complaint: CHEST PAIN, VOMITING, ABDOMINAL PAIN Time Seen by Provider: 02/28/20 21:04 Primary Care Provider: JARON ANN MD [Primary Care Provider] - Follow up as needed Information source: Patient Notes: This 34-year-old male who presented to the emergency room today with chest pain shortness of breath nausea vomiting he has been in out of the hospital multiple times over the last several days and was just recently admitted for DKA has had a sugar over 300. TRAVEL OUTSIDE OF THE [place] IN LAST 30 DAYS: No - Related Data Allergies/Adverse Reactions: No Known Allergies Allergy (Verified 02/25/20 14:39) Past Medical History - Social History Family history: Reviewed & Not Pertinent - Past Medical History Cardiac Medical History: Reports: Hx Heart Attack - May 2017., Hx Hypertension Denies: Hx Congestive Heart Failure, Hx DVT, Hx Hypercholesterolemia, Hx Pulmonary Embolism Pulmonary Medical History: Reports: Hx Asthma - as child Denies: Hx COPD, Hx Sleep Apnea Neurological Medical History: Reports: Hx Migraine. Denies: Hx Seizures Endocrine Medical History: Reports: Hx Diabetes Mellitus Type 1. Denies: Hx Diabetes Mellitus Type 2, Hx Hyperthyroidism, Hx Hypothyroidism Renal/ Medical History: Denies: Hx Peritoneal Dialysis GI Medical History: Denies: Hx Cirrhosis, Hx Gastroesophageal Reflux Disease, Hx Hepatitis Musculoskeltal Medical History: Denies Hx Arthritis Psychiatric Medical History: Reports: Hx Anxiety, Hx Bipolar Disorder, Hx Depression, Hx Schizoaffective Disorder, Hx Schizophrenia Infectious Medical History: Denies: Hx C-Diff, Hx Hepatitis, Hx MRSA Past Surgical History: Reports: Hx Appendectomy, Hx Oral Surgery - wisdom teeth, Other - [place] teeth extraction - Immunizations Hx Diphtheria, Pertussis, Tetanus Vaccination: Yes Doctor's Discharge - Discharge Referrals: JARON ANN MD [Primary Care Provider] - Follow up as needed
[2020-02-28 23:45] LABS: HEMATOCRIT 39.2 % (37.9-51.0); HEMOGLOBIN 12.8 g/dL (13.5-17.0); MEAN CORPUSCULAR HEMOGLOBIN 26.8 pg (27.0-33.4); MEAN CORPUSCULAR HGB CONC 32.7 g/dL (32.0-36.0); MEAN CORPUSCULAR VOLUME 82 fl (80-97); PLATELET COUNT 327 10^3/uL (150-450); RED BLOOD COUNT 4.78 10^6/uL (4.35-5.55); WHITE BLOOD COUNT 18.3 10^3/uL (4.0-10.5)
[2020-02-29 00:07] LABS: ABSOLUTE LYMPHOCYTES# (MANUAL) 0.7 10^3/uL (0.5-4.7); ABSOLUTE MONOCYTES # (MANUAL) 0.9 10^3/uL (0.1-1.4); BAND NEUTROPHILS % (MANUAL) 3 % (3-5); BASOPHILS % (MANUAL) 0 % (0-2); EOSINOPHILS % (MANUAL) 2 % (0-6); LYMPHOCYTES % (MANUAL) 4 % (13-45); MONOCYTES % (MANUAL) 5 % (3-13); PLATELET COMMENT ADEQUATE; RBC MORPHOLOGY COMMENT NORMO-CYTIC/CHROMIC; SEGMENTED NEUTROPHILS % (MAN) 86 % (42-78); TOTAL CELLS COUNTED 100
[2020-02-29 00:12] LABS: ALKALINE PHOSPHATASE 104 U/L (38-126); ANION GAP 18 (5-19); ASPARTATE AMINO TRANSFERASE 19 U/L (17-59); BILIRUBIN,DIRECT 0.2 mg/dL (0.0-0.4); BILIRUBIN,TOTAL 0.7 mg/dL (0.2-1.3); BLOOD UREA NITROGEN 34 mg/dL (7-20); CALCIUM 9.3 mg/dL (8.4-10.2); CARBON DIOXIDE 20 mmol/L (22-30); CHLORIDE 97 mmol/L (98-107); GLUCOSE 385 mg/dL (75-110); POTASSIUM 4.3 mmol/L (3.6-5.0)
--- NOTE | 2020-02-29 01:21 | ER Document Report ---
ED General - General Chief Complaint: Chest Pain Stated Complaint: CHEST PAIN, VOMITING, ABDOMINAL PAIN Time Seen by Provider: 02/28/20 21:04 Primary Care Provider: JARON ANN MD [Primary Care Provider] - Follow up as needed Notes: Patient is a 34-year-old -[place] male with a history of type I diabe rocael, marijuana and cocaine abuse, schizophrenia and noncompliance with treatment who was seen here and admitted for DKA and admitted on the of this month. He left AGAINST MEDICAL ADVICE 2 days later. According to the records he has a history of leaving AGAINST MEDICAL ADVICE frequently. Patient comes in today complaining of chest pain and abdominal pain for the past 4 days. Patient states this is unchanged from his admission. He states he still having some nausea and vomiting. This is his exact presentation from the prior visit with admission. He is not forthcoming with answers or history. He seems very agitated and states that he is just trying to get some rest. TRAVEL OUTSIDE OF THE [place] IN LAST 30 DAYS: No - Related Data Allergies/Adverse Reactions: No Known Allergies Allergy (Verified 02/25/20 14:39) Past Medical History - General Information source: Patient - Social History Smoking Status: Current Every Day Smoker Chew tobacco use (# tins/day): No Frequency of alcohol use: None Drug Abuse: None Family History: Reviewed & Not Pertinent, DM, Hypertension Patient has homicidal ideation: No - Past Medical History Cardiac Medical History: Reports: Hx Heart Attack - May 2017., Hx Hypertension Denies: Hx Congestive Heart Failure, Hx DVT, Hx Hypercholesterolemia, Hx Pulmonary Embolism Pulmonary Medical History: Reports: Hx Asthma - as child Denies: Hx COPD, Hx Sleep Apnea Neurological Medical History: Reports: Hx Migraine. Denies: Hx Seizures Endocrine Medical History: Reports: Hx Diabetes Mellitus Type 1. Denies: Hx Diabetes Mellitus Type 2, Hx Hyperthyroidism, Hx Hypothyroidism Renal/ Medical History: Denies: Hx Peritoneal Dialysis GI Medical History: Denies: Hx Cirrhosis, Hx Gastroesophageal Reflux Disease, Hx Hepatitis Musculoskeletal Medical History: Denies Hx Arthritis Psychiatric Medical History: Reports: Hx Anxiety, Hx Bipolar Disorder, Hx Depression, Hx Schizoaffective Disorder, Hx Schizophrenia Infectious Medical History: Denies: Hx C-Diff, Hx Hepatitis, Hx MRSA Past Surgical History: Reports: Hx Appendectomy, Hx Oral Surgery - wisdom teeth, Other - [place] teeth extraction - Immunizations Hx Diphtheria, Pertussis, Tetanus Vaccination: Yes Hx Pneumococcal Vaccination: 09/16/00 Review of Systems - Review of Systems Notes: Limited unable to obtain full review of systems due to patient's level of cooperation Cardiovascular: Chest pain Gastrointestinal: Abdominal pain, Nausea, Vomiting Physical Exam - Vital signs Vitals: Temp 98.5 F 02/28/20 21:20 - General General appearance: Alert In distress: None - Respiratory Respiratory status: No respiratory distress Chest status: Nontender Breath sounds: Normal Chest palpation: Normal - Cardiovascular Rhythm: Regular Heart sounds: Normal auscultation Murmur: No - Abdominal Inspection: Normal Distension: No distension Bowel sounds: Normal Tenderness: Tender - Reported diffuse tenderness to light palpation of the skin surface of the abdomen - Extremities General upper extremity: Normal inspection, Nontender General lower extremity: Normal inspection, Nontender - Neurological Neuro grossly intact: Yes Cognition: Normal Orientation: AAOx4 - Psychological Associated symptoms: Agitated - Skin Skin Temperature: Warm Skin Moisture: Dry Skin Color: Normal Course - Re-evaluation Re-evalutation: 02/29/20 01:20 EKG: At 2130, sinus rhythm at 98 bpm with normal intervals. Some T wave inversions in lead III, V5, V6 and Q waves in the inferior and some lateral leads. These findings are unchanged from prior EKG. 02/29/20 04:34 Reevaluation at this time. Patient's heart rate continues to fluctuate between tachycardia and normal rate in the 80s and 90s. He is gotten normal saline and has taken at least 6 to 8 cups of water by mouth. He was given labetalol IV and then hydralazine IV to help control his blood pressure. These medications did not seem to help very much. His blood sugar did drop slightly from intake. He states that he was feeling some better along the course of evaluation. I recommended that despite our best efforts here to evaluate him that although his labs look better than his previous ones from admission that they were still abnormal coupled with his uncontrollable vital signs at this time it was best that he continue his stay in the emergency department for possible admission and continued treatment. Patient stated that he was uncomfortable lying in the bed that he just wanted to go home and lay down. I counseled against this and discussed with him the serious nature of his condition. He was nonverbal but did not seem to be concerned with it. He has a history of noncompliance. Against our wishes and AGAINST MEDICAL ADVICE he will be discharged to home. I strongly recommended he have a low threshold for return. I advised he follow-up with Dr. Ann first thing in the morning when his office opens and that he return here or any ER immediately with any new, persistent or worsening symptoms. He verbalized understood and agreed. - Vital Signs Vital signs: Temp Pulse Resp BP Pulse Ox 98.5 F 111 H 20 178/105 H 100 02/28/20 21:22 02/28/20 21:22 02/29/20 04:29 02/29/20 04:29 02/29/20 04:29 - Laboratory Result Diagrams: 02/28/20 23:25 02/28/20 23:25 Laboratory results interpreted by me: 02/28/20 02/28/20 02/29/20 23:25 23:25 04:03 WBC 18.3 H Hgb 12.8 L MCH 26.8 L Seg Neuts % (Manual) 86 H Lymphocytes % (Manual) 4 L Abs Neuts (Manual) 16.3 H Sodium 134.7 L Chloride 97 L Carbon Dioxide 20 L BUN 34 H Creatinine 2.04 H Est GFR ( Amer) 45 L Est GFR (MDRD) Non-Af 37 L Glucose 385 H POC Glucose 335 H Lipase 18.4 L Discharge - Discharge Clinical Impression: Uncontrolled hypertension Uncontrolled diabetes mellitus Qualifiers: Diabetes mellitus type: type 1 Glycemic state: with hyperglycemia Qualified Code(s): E10.65 - Type 1 diabetes mellitus with hyperglycemia Abdominal pain Qualifiers: Abdominal location: generalized Qualified Code(s): R10.84 - Generalized abdominal pain Chest pain Qualifiers: Chest pain type: unspecified Qualified Code(s): R07.9 - Chest pain, unspecified Condition: Fair Disposition: HOME, SELF-CARE Instructions: High Blood Pressure ([facility]), Hyperglycemia ([facility]) Additional Instructions: Please follow-up with your primary doctor as soon as possible. Return here any ER immediately with any new, persistent or worsening symptoms. Referrals: JARON ANN MD [Primary Care Provider] - Follow up as needed
[2020-02-29] MEDS ORDERED: METOCLOPRAMIDE HCL INJ/PF 10 MG/2 ML SDV IV ONE (01:25)
[2020-02-29] MEDS ORDERED: LABETALOL HCL INJ 20 MG/4 ML DISP.SYRIN IV ONE (01:34)
[2020-02-29 01:57] LABS: VENOUS BLOOD BASE EXCESS -4.7 mmol/L; VENOUS BLOOD HCO3 21.5 mmol/L (20-32); VENOUS BLOOD PCO2 44.1 mmHg (35-63); VENOUS BLOOD PH 7.31 (7.30-7.42)
[2020-02-29 03:20] LABS: URINE AMPHETAMINES SCREEN NEGATIVE; URINE BARBITURATES SCREEN NEGATIVE; URINE BENZODIAZEPINES SCREEN NEGATIVE; URINE COCAINE SCREEN NEGATIVE; URINE MARIJUANA (THC) SCREEN NEGATIVE; URINE METHADONE SCREEN NEGATIVE; URINE PHENCYCLIDINE SCREEN NEGATIVE
[2020-02-29] MEDS ORDERED: HYDRALAZINE HCL INJ/PF 20 MG/1 ML SDV IV ONE (03:46)
[2020-02-29 04:32] VITALS: BP 178/105
--- NOTE | 2020-02-29 07:30 | EKG REPORT ---
SEVERITY:- ABNORMAL ECG - SINUS RHYTHM BORDERLINE INFERIOR Q WAVES NONSPECIFIC T ABNORMALITIES, INFERIOR LEADS : Confirmed by: Brayden Silverio MD 29-Feb-2020 07:29:39
== END 2020-02-29 04:41 | disposition home or self-care (01) ==
LOC: ER 20:40
DX: R07.9 Chest pain, unspecified (principal); E10.65 Type 1 diabetes mellitus with hyperglycemia; R10.84 Generalized abdominal pain; R10.817 Generalized abdominal tenderness; E10.9 Type 1 diabetes mellitus without complications; I10 Essential (primary) hypertension; R11.2 Nausea with vomiting, unspecified; F17.200 Nicotine dependence, unspecified, uncomplicated; I25.2 Old myocardial infarction; Z53.29 Procedure and treatment not carried out because of patient's decision for other reasons
CPT/HCPCS: 93005; 99285; 96361; 96374; 96375; 36415; 82962; 83690; 85025; 80053; 84484; 80307; 82803; 93010; J0360; J3490; J2765; J7030

== ENCOUNTER 2020-02-29 15:25 | Emergency (ER) | payer MEDICAID ==
[2020-02-29] MEDS ORDERED: METOCLOPRAMIDE HCL INJ/PF 10 MG/2 ML SDV IV ONE (18:18)
[2020-02-29] MEDS ORDERED: RINGERS SOLUTION,LACTATED 1,000 ML IV ONE (18:18)
[2020-02-29 18:57] LABS: ABSOLUTE BASOPHILS # (AUTO) 0.1 10^3/uL (0.0-0.2); ABSOLUTE LYMPHOCYTES (AUTO) 1.1 10^3/uL (0.5-4.7); ABSOLUTE MONOCYTES (AUTO) 0.7 10^3/uL (0.1-1.4); ABSOLUTE NEUT (AUTO) 10.3 10^3/uL (1.7-8.2); BASOPHILS % (AUTO) 0.8 % (0-2); EOSINOPHILS % (AUTO) 0.1 % (0-6); HEMATOCRIT 39.6 % (37.9-51.0); LYMPHOCYTES % (AUTO) 9.4 % (13-45); MEAN CORPUSCULAR HEMOGLOBIN 26.8 pg (27.0-33.4); MEAN CORPUSCULAR HGB CONC 32.7 g/dL (32.0-36.0); MEAN CORPUSCULAR VOLUME 82 fl (80-97); MONOCYTES % (AUTO) 5.7 % (3-13); PLATELET COUNT 280 10^3/uL (150-450); RED BLOOD COUNT 4.84 10^6/uL (4.35-5.55); RED CELL DISTRIBUTION WIDTH 14.1 % (11.5-14.0); TOTAL CELLS COUNTED % (AUTO) 100 %; WHITE BLOOD COUNT 12.3 10^3/uL (4.0-10.5)
[2020-02-29 19:14] LABS: ALBUMIN 3.6 g/dL (3.5-5.0); ALKALINE PHOSPHATASE 101 U/L (38-126); ANION GAP 11 (5-19); ASPARTATE AMINO TRANSFERASE 18 U/L (17-59); BILIRUBIN,DIRECT 0.1 mg/dL (0.0-0.4); BILIRUBIN,TOTAL 0.7 mg/dL (0.2-1.3); BLOOD UREA NITROGEN 35 mg/dL (7-20); CALCIUM 9.3 mg/dL (8.4-10.2); CARBON DIOXIDE 24 mmol/L (22-30); CHLORIDE 97 mmol/L (98-107); CREATINE KINASE 162 U/L (55-170); GLUCOSE 333 mg/dL (75-110); POTASSIUM 4.2 mmol/L (3.6-5.0); TOTAL PROTEIN 6.5 g/dL (6.3-8.2)
[2020-02-29 19:25] LABS: CREATINE KINASE MB 0.65 ng/mL (<4.55); TROPONIN I 0.012 ng/mL
[2020-02-29] MEDS ORDERED: DIPHENHYDRAMINE HCL 50 MG/ML VIAL IV ONE (19:41)
[2020-02-29] MEDS ORDERED: HALOPERIDOL LACTATE INJ 5 MG/1 ML VIAL IV ONE (19:41)
[2020-02-29] MEDS ORDERED: KETOROLAC TROMETHAMINE INJ/PF 30 MG/1 ML SDV IV ONE (19:41)
--- NOTE | 2020-02-29 19:42 | ER Document Report ---
ED General - General Chief Complaint: Chest Pain Stated Complaint: CHEST PAIN/ABDOMINAL PAIN Time Seen by Provider: 02/29/20 18:17 Primary Care Provider: JARON ANN MD [Primary Care Provider] - Follow up as needed Notes: Chest pain nausea vomiting. History of diabetes with likely gastroparesis poorly controlled sugars multiple admissions for DKA multiple ED visits [facility], having left AGAINST MEDICAL ADVICE from hospital admission a few days ago and been seen in the ED last night. He says he gave himself both long and short acting insulin today. He has no fever no urinary symptoms no diarrhea no contact with COVID positive individuals and no respiratory symptoms TRAVEL OUTSIDE OF THE [place] IN LAST 30 DAYS: No - Related Data Allergies/Adverse Reactions: No Known Allergies Allergy (Verified 02/25/20 14:39) Past Medical History - General Information source: Patient - Social History Smoking Status: Current Every Day Smoker Smoking Education Provided: Yes - The patient ED visit today was directly related to their abuse of tobacco. Frequency of alcohol use: None Drug Abuse: None Family History: Reviewed & Not Pertinent, DM, Hypertension Patient has homicidal ideation: No - Past Medical History Cardiac Medical History: Reports: Hx Heart Attack - May 2017., Hx Hypertension Denies: Hx Congestive Heart Failure, Hx DVT, Hx Hypercholesterolemia, Hx Pulmonary Embolism Pulmonary Medical History: Reports: Hx Asthma - as child Denies: Hx COPD, Hx Sleep Apnea Neurological Medical History: Reports: Hx Migraine. Denies: Hx Seizures Endocrine Medical History: Reports: Hx Diabetes Mellitus Type 1. Denies: Hx Diabetes Mellitus Type 2, Hx Hyperthyroidism, Hx Hypothyroidism Renal/ Medical History: Denies: Hx Peritoneal Dialysis GI Medical History: Denies: Hx Cirrhosis, Hx Gastroesophageal Reflux Disease, Hx Hepatitis Musculoskeletal Medical History: Denies Hx Arthritis Psychiatric Medical History: Reports: Hx Anxiety, Hx Bipolar Disorder, Hx Depression, Hx Schizoaffective Disorder, Hx Schizophrenia Infectious Medical History: Denies: Hx C-Diff, Hx Hepatitis, Hx MRSA Past Surgical History: Reports: Hx Appendectomy, Hx Oral Surgery - wisdom teeth, Other - [place] teeth extraction - Immunizations Hx Diphtheria, Pertussis, Tetanus Vaccination: Yes Hx Pneumococcal Vaccination: 09/16/00 Review of Systems - Review of Systems Notes: REVIEW OF SYSTEMS GEN: Denies fever, chills, weight loss ENT: Denies sore throat, nasal discharge, ear pain EYES: Denies blurry vision, eye pain, discharge CV: Pain RESP: Denies cough, shortness of breath, wheezing GI: Nominal pain nausea and vomiting MSK: Denies joint pain/swelling, edema, SKIN: Denies rash, skin lesions LYMPH: Denies swollen glands/lymph nodes NEURO: Denies headache, focal weakness or numbness, dizziness PSYCH: Denies depression, suicidal or homicidal ideation PHYSICAL EXAMINATION General: No acute distress, well-nourished Head: Atraumatic, normocephalic ENT: Mouth normal, oropharynx moist, no exudates or tonsillar enlargement Eyes: Conjunctiva normal, pupils equal, lids normal Neck: No JVD, supple, no guarding CVS: Normal rate, regular rhythm, no murmurs Resp: No resp distress, equal and normal breath sounds bilaterally GI: Nondistended, soft, no tenderness to palpation, no rebound or guarding Ext: No deformities, no edema, normal range of motion in upper and lower ext Back: No CVA or midline TTP Skin: No rash, warm Lymphatic: No lymphadeopathy noted Neuro: Awake, alert. Face symmetric. GCS 15. Physical Exam - Vital signs Vitals: Temp Pulse Resp BP Pulse Ox 98.3 F 114 H 20 192/107 H 100 02/29/20 15:48 02/29/20 15:48 02/29/20 15:48 02/29/20 15:48 02/29/20 15:48 Course - Re-evaluation Re-evalutation: 02/29/20 20: Poorly controlled for the control diabetic with likely dehydration gastroparesis rule out DKA Doubt ACS 03/01/20 00:49 Patient has elevated white count, same as prior. He feels much better after fluids and his blood pressures come down from the 190 range In looking at his chart this is a recurrent presentation for him. His labs today rule out DKA, and his sugar is not all that elevated. He was asked able to tolerate p.o. after 1 round of medications and is stable for outpatient follow-up and discharge. - Vital Signs Vital signs: Temp Pulse Resp BP Pulse Ox 98.3 F 114 H 17 176/115 H 100 02/29/20 17:21 02/29/20 15:48 02/29/20 20:00 02/29/20 18:11 02/29/20 20:00 - Laboratory Result Diagrams: 02/29/20 18:42 02/29/20 18:42 Laboratory results interpreted by me: 02/29/20 02/29/20 18:42 18:42 WBC 12.3 H Hgb 13.0 L MCH 26.8 L RDW 14.1 H Lymph % (Auto) 9.4 L Absolute Neuts (auto) 10.3 H Seg Neutrophils % 84.0 H Sodium 132.1 L Chloride 97 L BUN 35 H Creatinine 2.00 H Est GFR ( Amer) 46 L Est GFR (MDRD) Non-Af 38 L Glucose 333 H Discharge - Discharge Clinical Impression: Recurrent epigastric abdominal pain, Hyperglycemia due to diabetes mellitus Condition: Good Disposition: HOME, SELF-CARE Instructions: Abdominal Pain ([facility]), Recurring Abdominal Pain, Child ([facility]), Reflux Disease (GERD) ([facility]) Prescriptions: Promethazine HCl [Phenergan 25 mg Supp.rect] 1 supp [place] Q6H #12 supp.rect Referrals: JARON ANN MD [Primary Care Provider] - Follow up as needed
--- NOTE | 2020-02-29 20:06 | EKG REPORT ---
SEVERITY:- ABNORMAL ECG - SINUS TACHYCARDIA CONSIDER LEFT VENTRICULAR HYPERTROPHY PROBABLE INFERIOR INFARCT, AGE INDETERMINATE ABNORMAL T, CONSIDER ISCHEMIA, ANT-LAT LEADS : Confirmed by: Brayden Silverio MD 29-Feb-2020 20:05:20
[2020-02-29 20:20] VITALS: BP 176/115
== END 2020-02-29 20:26 | disposition home or self-care (01) ==
LOC: ER 15:25
DX: E10.65 Type 1 diabetes mellitus with hyperglycemia (principal); R10.13 Epigastric pain; R07.9 Chest pain, unspecified; R10.9 Unspecified abdominal pain; R11.2 Nausea with vomiting, unspecified; Z79.4 Long term (current) use of insulin; F17.200 Nicotine dependence, unspecified, uncomplicated; I25.2 Old myocardial infarction; I10 Essential (primary) hypertension; J45.909 Unspecified asthma, uncomplicated
CPT/HCPCS: 93005; 99284; 96361; 96374; 36415; 82553; 82550; 85025; 80053; 84484; 93010; J2765; J7120; 82962

== ENCOUNTER 2020-03-02 07:20 | Inpatient (IN) | payer MEDICAID ==
--- NOTE | 2020-03-02 07:40 | ER Document Report ---
ED General - General Stated Complaint: BLOOD SUGAR ISSUES Time Seen by Provider: 03/02/20 07:24 Primary Care Provider: JARON ANN MD [Primary Care Provider] - Follow up as needed TRAVEL OUTSIDE OF THE [place] IN LAST 30 DAYS: No - HPI Notes: Chief complaint: Abdominal pain, vomiting and high blood sugar History of present illness: 34-year-old male followed by Dr. Ann well- known to this emergency department to me personally with history of diabetes mellitus type 1, noncompliance, diabetic gastric paresis, polysubstance abuse and bipolar disorder returns yet again with abdominal pain, vomiting and high blood sugar. Patient says he awakened with recurrence of symptoms this morning. He denies fever. He denies chest pain. - Related Data Allergies/Adverse Reactions: No Known Allergies Allergy (Verified 02/25/20 14:39) Past Medical History - General Information source: Patient, [facility] Records - Social History Smoking Status: Current Every Day Smoker Frequency of alcohol use: Occasional Drug Abuse: Other - Denies Family History: Reviewed & Not Pertinent, DM, Hypertension - Past Medical History Cardiac Medical History: Reports: Hx Heart Attack - May 2017., Hx Hypertension Denies: Hx Congestive Heart Failure, Hx DVT, Hx Hypercholesterolemia, Hx Pulmonary Embolism Pulmonary Medical History: Reports: Hx Asthma - as child Denies: Hx COPD, Hx Sleep Apnea Neurological Medical History: Reports: Hx Migraine. Denies: Hx Seizures Endocrine Medical History: Reports: Hx Diabetes Mellitus Type 1. Denies: Hx Diabetes Mellitus Type 2, Hx Hyperthyroidism, Hx Hypothyroidism Renal/ Medical History: Denies: Hx Peritoneal Dialysis GI Medical History: Denies: Hx Cirrhosis, Hx Gastroesophageal Reflux Disease, Hx Hepatitis Musculoskeletal Medical History: Denies Hx Arthritis Psychiatric Medical History: Reports: Hx Anxiety, Hx Bipolar Disorder, Hx Depression, Hx Schizoaffective Disorder, Hx Schizophrenia Infectious Medical History: Denies: Hx C-Diff, Hx Hepatitis, Hx MRSA Past Surgical History: Reports: Hx Appendectomy, Hx Oral Surgery - wisdom teeth, Other - [place] teeth extraction - Immunizations Hx Diphtheria, Pertussis, Tetanus Vaccination: Yes Hx Pneumococcal Vaccination: 09/16/00 Review of Systems - Review of Systems Notes: Constitutional: Negative for fever. HENT: Negative for sore throat. Eyes: Negative for visual changes. Cardiovascular: Negative for chest pain. Respiratory: Negative for shortness of breath. Gastrointestinal: As per HPI. Genitourinary: Negative for dysuria. Musculoskeletal: Negative for back pain. Skin: Negative for rash. Neurological: Negative for headaches, weakness or numbness. 10 point ROS negative except as marked above and in HPI. Physical Exam - Vital signs Vitals: Temp 98.5 F 03/02/20 07:30 - Notes Notes: GENERAL: Male patient approximately stated age who is actively vomiting. SKIN: Good turgor no rashes. HEAD: Normocephalic atraumatic. EYES: PERRLA. EOMI. Conjunctivae and sclerae clear. EARS: CANALS AND TMS CLEAR. NOSE: CLEAR. MOUTH: Moist mucosa. Good dentition. No stridor or edema. No drooling. NECK: Supple. No masses or thyromegaly. No adenopathy. Carotids 2+ without bruits. No JVD. BACK: Symmetrical without tenderness. CHEST: Respirations unlabored. Breath sounds clear and symmetrical. HEART: Tachycardic regular rhythm. No murmur gallop or rub. ABDOMEN: Soft nontender without masses, organomegaly or rebound. Bowel sounds normally active. No bruits. GENITALIA: Deferred. EXTREMITIES: No edema. No calf tenderness. Cap refill less than 1.5 seconds. Dorsalis pedis and posterior tibial pulses 3+ and symmetrical. NEUROLOGICAL: GCS 15. Alert and oriented x3. Fluent speech. Cranial nerves II through XII intact. Sensorimotor and cerebellar normal. Normal tone. PSYCHIATRIC: Flat affect. Course - Re-evaluation Re-evalutation: 03/02/20 09:27 Patient is hyperosmolar with glucose of 1001. His bicarb is normal. His venous pH is normal. He still has not provided us requested urine specimen. I started him on IV normal saline for hydration and IV insulin drip per protocol. I spoke with Dr. Ann who is his primary care provider of record. Dr. Ann says the patient has recently signed out AMA from his service and he has been sent a registered letter that he was dismissed from the practice. He requests that we refer the admission to the hospitalist service. I briefly spoke with Dr. Ramírez who indicates that he is preoccupied and says he will contact us back in 20 minutes regarding admission. 03/02/20 10:09 I have ordered some IV labetalol for the patient's blood pressure. Findings have been reviewed with Dr. Ramírez who has accepted for admission to [facility]. - Vital Signs Vital signs: Temp Pulse Resp BP Pulse Ox 98.5 F 17 195/118 H 97 03/02/20 07:30 03/02/20 09:01 03/02/20 09:01 03/02/20 09:01 - Laboratory Result Diagrams: 03/02/20 07:58 03/02/20 07:58 Laboratory results interpreted by me: 03/02/20 03/02/20 03/02/20 07:58 07:58 08:40 WBC 12.2 H Hgb 12.4 L MCH 26.9 L MCHC 30.9 L RDW 14.2 H Lymph % (Auto) 5.5 L Absolute Neuts (auto) 11.0 H Seg Neutrophils % 90.2 H Sodium 125.4 L Chloride 87 L BUN 27 H Creatinine 2.21 H Est GFR ( Amer) 41 L Est GFR (MDRD) Non-Af 34 L Glucose 1003 H* AST 15 L Total Protein 5.9 L Albumin 3.3 L Urine Protein 100 H Urine Glucose (UA) >=500 H Urine Ketones 20 H Urine Blood SMALL H - Diagnostic Test Radiology reviewed: Reports reviewed - EKG Interpretation by Me Additional EKG results interpreted by me: 03/02/20 09:36 Twelve-lead EKG from 0742 hrs. reviewed contemporaneously by me demonstrating sinus tachycardia with a rate of 128. Beason is +48 degrees. Intervals are serena l. Patient has widespread T wave inversions unchanged from prior tracing of 02/29/2020. There are no acute ST changes. Indication for current study: Tachycardia. Critical Care Note - Critical Care Note Total time excluding time spent on procedures (mins): 35 - IV insulin drip Discharge - Discharge Clinical Impression: Hyperglycemia with hyperosmolar state, Diabetic gastroparesis Condition: Serious Disposition: ADMITTED INPATIENT Unit Admitted: [facility] Referrals: JARON ANN MD [Primary Care Provider] - Follow up as needed
[2020-03-02] MEDS ORDERED: METOCLOPRAMIDE HCL INJ/PF 10 MG/2 ML SDV IV ONE (07:41)
[2020-03-02] MEDS ORDERED: PROMETHAZINE HCL INJ 25 MG/1 ML VIAL IM ONE (07:45)
[2020-03-02] MEDS ORDERED: PROMETHAZINE HCL INJ 25 MG/1 ML VIAL ONE (07:48)
[2020-03-02] MEDS: NORMAL SALINE 1000 ML 1,000 ML IV PRN ×2 (08:07→08:47)
[2020-03-02 08:17] LABS: ABSOLUTE LYMPHOCYTES (AUTO) 0.7 10^3/uL (0.5-4.7); ABSOLUTE MONOCYTES (AUTO) 0.5 10^3/uL (0.1-1.4); BASOPHILS % (AUTO) 0.4 % (0-2); HEMOGLOBIN 12.4 g/dL (13.5-17.0); LYMPHOCYTES % (AUTO) 5.5 % (13-45); MEAN CORPUSCULAR HEMOGLOBIN 26.9 pg (27.0-33.4); MEAN CORPUSCULAR HGB CONC 30.9 g/dL (32.0-36.0); MONOCYTES % (AUTO) 3.9 % (3-13); PLATELET COUNT 282 10^3/uL (150-450); RED BLOOD COUNT 4.59 10^6/uL (4.35-5.55); RED CELL DISTRIBUTION WIDTH 14.2 % (11.5-14.0); SEGMENTED NEUTROPHILS % (AUTO) 90.2 % (42-78); TOTAL CELLS COUNTED % (AUTO) 100 %; WHITE BLOOD COUNT 12.2 10^3/uL (4.0-10.5)
[2020-03-02 08:30] LABS: MEAN CORPUSCULAR VOLUME 87 fl (80-97)
[2020-03-02 08:32] LABS: VENOUS BLOOD BASE EXCESS -0.4 mmol/L; VENOUS BLOOD HCO3 25.5 mmol/L (20-32); VENOUS BLOOD PCO2 45.9 mmHg (35-63); VENOUS BLOOD PH 7.36 (7.30-7.42)
[2020-03-02] MEDS ORDERED: KETOROLAC TROMETHAMINE INJ/PF 30 MG/1 ML SDV IV ONE (08:33)
[2020-03-02 08:49] LABS: ALBUMIN 3.3 g/dL (3.5-5.0); ALKALINE PHOSPHATASE 107 U/L (38-126); ANION GAP 15 (5-19); ASPARTATE AMINO TRANSFERASE 15 U/L (17-59); BILIRUBIN,DIRECT 0.3 mg/dL (0.0-0.4); BILIRUBIN,TOTAL 0.8 mg/dL (0.2-1.3); BLOOD UREA NITROGEN 27 mg/dL (7-20); CALCIUM 8.6 mg/dL (8.4-10.2); CARBON DIOXIDE 23 mmol/L (22-30); CHLORIDE 87 mmol/L (98-107); POTASSIUM 4.6 mmol/L (3.6-5.0); TOTAL PROTEIN 5.9 g/dL (6.3-8.2)
[2020-03-02 09:03] LABS: ALCOHOL < 10 mg/dL (NONE DETECTED)
[2020-03-02 09:05] LABS: APPEARANCE,URINE CLEAR; BILIRUBIN,URINE NEGATIVE (NEGATIVE); COLOR,URINE STRAW; GLUCOSE, URINE >=500 mg/dL (NEGATIVE); KETONES,URINE 20 mg/dL (NEGATIVE); PROTEIN,URINE 100 mg/dL (NEGATIVE); UROBILINOGEN,URINE NEGATIVE mg/dL (<2.0)
[2020-03-02 09:12] LABS: GLUCOSE 1003 mg/dL (75-110)
[2020-03-02] MEDS ORDERED: NORMAL SALINE 100 ML with INSULIN REGULAR, HUMAN 100 UNIT IV PRN ×2 (09:17)
[2020-03-02] MEDS ORDERED: INSULIN LISPRO 100 UNIT/ML 3 ML VIAL ONE (09:29)
[2020-03-02 09:30] LABS: URINE AMPHETAMINES SCREEN NEGATIVE; URINE BARBITURATES SCREEN NEGATIVE; URINE BENZODIAZEPINES SCREEN NEGATIVE; URINE COCAINE SCREEN NEGATIVE; URINE MARIJUANA (THC) SCREEN NEGATIVE; URINE METHADONE SCREEN NEGATIVE; URINE PHENCYCLIDINE SCREEN NEGATIVE
[2020-03-02] MEDS ORDERED: INSULIN REG, HUMAN 100 UNIT/ML 3 ML VIAL (PYX) ONE (09:36)
[2020-03-02] MEDS ORDERED: LABETALOL HCL INJ 20 MG/4 ML DISP.SYRIN IV ONE (09:39)
--- NOTE | 2020-03-02 09:45 | EKG REPORT ---
SEVERITY:- ABNORMAL ECG - SINUS TACHYCARDIA CONSIDER LEFT VENTRICULAR HYPERTROPHY BORDERLINE INFERIOR Q WAVES ABNORMAL T, CONSIDER ISCHEMIA, DIFFUSE LEADS BORDERLINE PROLONGED QT INTERVAL : Confirmed by: Brayden Silverio MD 02-Mar-2020 09:44:49
--- NOTE | 2020-03-02 09:52 | RADIOLOGY REPORT (SQ) ---
EXAM DESCRIPTION: CHEST SINGLE VIEW IMAGES COMPLETED DATE/TIME: 03/02/2020 8:18 am REASON FOR STUDY: dyspnea COMPARISON: 02/25/2020 EXAM PARAMETERS: NUMBER OF VIEWS: One view. TECHNIQUE: Single frontal radiographic view of the chest acquired. RADIATION DOSE: NA LIMITATIONS: None. FINDINGS: LUNGS AND PLEURA: No opacities, masses or pneumothorax. No pleural effusion. MEDIASTINUM AND HILAR STRUCTURES: No masses. Contour normal. HEART AND VASCULAR STRUCTURES: Heart normal in size. Normal vasculature. BONES: No acute findings. HARDWARE: None in the chest. OTHER: No other significant finding. IMPRESSION: NO ACUTE RADIOGRAPHIC FINDING IN THE CHEST. TECHNICAL DOCUMENTATION: JOB ID: [id number] 2010 [employer]- All Rights Reserved Reading location - IP/workstation name: [email or web address]
[2020-03-02] MEDS ORDERED: ACETAMINOPHEN 325 MG TABLET PO PRN (11:03)
[2020-03-02] MEDS ORDERED: NORMAL SALINE 1000 ML 1,000 ML with POTASSIUM CHLORIDE 20 MEQ IV PRN ×2 (11:03)
[2020-03-02] MEDS ORDERED: HYDRALAZINE HCL INJ/PF 20 MG/1 ML SDV IV ONE (11:08)
[2020-03-02] MEDS ORDERED: GLUCAGON,HUMAN RECOMB 1 MG INJ IM PRN (11:09)
[2020-03-02] MEDS ORDERED: DEXTROSE 50%-WATER 25 GM/50 ML DISP.SYRIN IV PRN ×2 (11:09)
[2020-03-02] MEDS ORDERED: DEXTROSE 40% GEL 15 GM TUBE PO PRN ×2 (11:09)
[2020-03-02] MEDS ORDERED: INSULIN REG, HUMAN 100 UNIT/ML 3 ML VIAL (PYX) IV ONE (11:10)
[2020-03-02] MEDS ORDERED: POTASSI CL 20 MEQ/NS 1L 1000 ML IV PRN (11:14)
[2020-03-02] MEDS ORDERED: NICOTINE 14 MG/24 HR PATCH.TD24 TD PRN (11:29)
[2020-03-02] MEDS: TRAMADOL HCL 50 MG TABLET PO PRN (11:29)
--- NOTE | 2020-03-02 11:39 | PDOC H&P ---
History of Present Illness Admission Date/PCP: JARON ANN MD Patient complains of: Nausea, fatigue, chest pain History of Present Illness: LENA SCHULZ is a 34 year old male with history of diabetes mellitus, hypertension, CKD, schizophrenia and noncompliance, who presents to the hospital with complaint of nausea and vomiting since yesterday. States that he noted his sugar was high when at home via measurement. Patient denies any abdominal pain or dysuria but admits to polyuria. Patient states that he takes his prescribed insulin and that he takes Lantus 35 units every morning and sliding scale. Denies missing his Lantus yesterday. Denies eating any high calorie or high sugar contents. I was informed by ER provider that patient has been discharged from Dr. Ann service due to significant history of noncompliance. Past Medical History Cardiac Medical History: Reports: Hypertension Denies: Congestive Heart Failure, DVT, Hyperlipidema, Pulmonary Embolism Pulmonary Medical History: Reports: Asthma - as child Denies: Chronic Obstructive Pulmonary Disease (COPD), Sleep Apnea Neurological Medical History: Reports: Migraine Denies: Seizures Endocrine Medical History: Reports: Diabetes Mellitus Type 1 Denies: Diabetes Mellitus Type 2, Hyperthyroidism, Hypothyroidism GI Medical History: Denies: Cirrhosis, Gastroesophageal Reflux Disease, Hepatitis Musculoskeltal Medical History: Denies: Arthritis Psychiatric Medical History: Reports: Schizoaffective Disorder, Other - anxiety Infectious Medical History: Denies: Clostridium Difficile, Methicillin-Resistant Staph Aureus Past Surgical History Past Surgical History: Reports: Appendectomy, Other - [place] teeth extraction Social History Smoking Status: Current Every Day Smoker Electronic Cigarette use?: No Frequency of Alcohol Use: None Hx Recreational Drug Use: No Drugs: None Hx Prescription Drug Abuse: No - Advance Directive Resuscitation Status: Full Code Family History Family History: Reviewed & Not Pertinent, DM, Hypertension Parental Family History Reviewed: Yes Children Family History Reviewed: Unknown Sibling(s) Family History Reviewed.: Unknown Medication/Allergy Home Medications: Insulin Glargine,Hum.rec.anlog [Lantus Insulin 100 Unit/1 ml 10 ml] 35 unit SUBCUT DAILY 08/21/19 Quetiapine Fumarate [Seroquel] 800 mg PO QHS 08/21/19 Trazodone HCl [Desyrel] 100 mg PO QHS 08/21/19 Buspirone HCl 5 mg PO DAILY 02/25/20 Lisinopril [Zestril] 2.5 mg PO DAILY 02/25/20 Citalopram Hydrobromide [Celexa] 40 mg PO DAILY 02/26/20 Hydroxyzine Pamoate [Vistaril] 25 mg PO TIDP PRN 02/26/20 Mirtazapine [Remeron 15 mg Tablet] 45 mg PO QHS 02/26/20 Prazosin HCl 1 mg PO QHS 02/26/20 Ropinirole HCl [Requip] 0.5 mg PO QHS 02/26/20 Insulin Lispro [Humalog Insulin (Lispro) 100 unit/mL] 15 units SUBCUT MEALS 02/27/20 Promethazine HCl [Phenergan 25 mg Supp.rect] 1 supp [place] Q6H #12 supp.rect 02/29/20 Allergies/Adverse Reactions: No Known Allergies Allergy (Verified 02/25/20 14:39) Review of Systems Constitutional: PRESENT: fatigue. ABSENT: chills, fever(s) Eyes: ABSENT: visual disturbances Nose, Mouth, and Throat: PRESENT: headache(s). ABSENT: sore throat Cardiovascular: PRESENT: chest pain Respiratory: ABSENT: cough, dyspnea Gastrointestinal: PRESENT: nausea. ABSENT: abdominal pain, constipation, diarrhea Genitourinary: ABSENT: difficulty urinating, dysuria Integumentary: ABSENT: diaphoresis Neurological: ABSENT: dizziness Psychiatric: PRESENT: anxiety - history Endocrine: PRESENT: polyuria Physical Exam Vital Signs: Temp Pulse Resp BP Pulse Ox 98.5 F 16 189/118 H 94 03/02/20 07:30 03/02/20 10:30 03/02/20 10:30 03/02/20 10:30 Intake & Output 03/01/20 03/02/20 03/03/20 06:59 06:59 06:59 Intake Total 2009 Output Total 900 Balance 1109 Weight 76.5 kg General appearance: PRESENT: no acute distress, cooperative Mouth exam: PRESENT: neck supple Neck exam: ABSENT: JVD Respiratory exam: PRESENT: clear to auscultation juan ramon, unlabored. ABSENT: accessory muscle use, retraction, wheezes Cardiovascular exam: PRESENT: +S1, +S2, tachycardia. ABSENT: irregular rhythm GI/Abdominal exam: PRESENT: soft, tenderness. ABSENT: distended, firm, rebound, rigid Extremities exam: ABSENT: pedal edema Neurological exam: PRESENT: alert, awake, oriented to person, oriented to place, oriented to time Psychiatric exam: PRESENT: flat affect. ABSENT: agitated, anxious Focused psych exam: ABSENT: pressured speech Skin exam: ABSENT: jaundice Results Laboratory Results: 03/02/20 07:58 03/02/20 07:58 03/02/20 03/02/20 03/02/20 07:58 07:58 07:58 WBC 12.2 H RBC 4.59 Hgb 12.4 L Hct 40.0 MCV 87 D MCH 26.9 L MCHC 30.9 L RDW 14.2 H Plt Count 282 Seg Neutrophils % 90.2 H VBG pH 7.36 VBG pCO2 45.9 VBG HCO3 25.5 VBG Base Excess -0.4 Sodium 125.4 L Potassium 4.6 Chloride 87 L Carbon Dioxide 23 Anion Gap 15 BUN 27 H Creatinine 2.21 H Est GFR ( Amer) 41 L Glucose 1003 H* Calcium 8.6 Total Bilirubin 0.8 AST 15 L Alkaline Phosphatase 107 Total Protein 5.9 L Albumin 3.3 L Urine Color Urine Appearance Urine pH Ur Specific [place] Urine Protein Urine Glucose (UA) Urine Ketones Urine Blood Urine RBC (Auto) 03/02/20 08:40 WBC RBC Hgb Hct MCV MCH MCHC RDW Plt Count Seg Neutrophils % VBG pH VBG pCO2 VBG HCO3 VBG Base Excess Sodium Potassium Chloride Carbon Dioxide Anion Gap BUN Creatinine Est GFR ( Amer) Glucose Calcium Total Bilirubin AST Alkaline Phosphatase Total Protein Albumin Urine Color STRAW Urine Appearance CLEAR Urine pH 6.0 Ur Specific [place] 1.020 Urine Protein 100 H Urine Glucose (UA) >=500 H Urine Ketones 20 H Urine Blood SMALL H Urine RBC (Auto) 1 03/02/20 07:58 Troponin I < 0.012 Impressions: Chest X-Ray 03/02/20 07:30 IMPRESSION: NO ACUTE RADIOGRAPHIC FINDING IN THE CHEST. Assessment and Plan - Diagnosis (1) HHNC (hyperglycemic hyperosmolar nonketotic coma) Is this a current diagnosis for this admission?: Yes Plan: Patient presenting with HH NK secondary to noncompliance most likely. States he takes Lantus 35 units at home every morning and is also supposed to be on a sliding scale Humalog. He has known history of noncompliance. He has received 2 L normal saline boluses. Currently on insulin drip. We will give insulin bolus as well. Check BMP every 6 hours. VBG shows no acidosis. KCl-NS drip at 250 cc/h. Every hour Accu-Cheks. (2) Hypertensive urgency Is this a current diagnosis for this admission?: Yes Plan: Patient states he is on lisinopril 2.5 mg daily at home. Have reviewed previous visits and patient's blood pressure has been persistently significantly elevated often in the 200s systolic. UDS is negative Received labetalol 10 mg IV. Will give IV hydralazine. Start patient on chlorthalidone 25 mg daily. Once kidney function improves, I will start patient on lisinopril at an increased dose. (3) Chest pain Qualifiers: Chest pain type: chest pain on breathing Qualified Code(s): R07.1 - Chest pain on breathing; R07.81 - Pleurodynia Is this a current diagnosis for this admission?: Yes Plan: Complains of pleuritic chest pain. Has had multiple ER visits for chest pain. EKG shows sinus tachycardia, evidence of LVH, no pathological Q waves, good R wave progression, no ST changes, but does show old findings of T wave inversions in leads V5 and V6. Troponin is negative. No need to trend. Chest x-ray is negative. Pain control (4) Acute renal failure superimposed on stage 3 chronic kidney disease Is this a current diagnosis for this admission?: Yes Plan: Baseline creatinine seems to be between 1.5 and 2. Will give IV fluids and monitor response. Monitor I's and O's. Likely secondary to uncontrolled hypertension and diabetes mellitus. (5) Tobacco dependency Is this a current diagnosis for this admission?: Yes Plan: Nicotine patch will be offered (6) Noncompliance Is this a current diagnosis for this admission?: Yes Plan: This seems to be an issue with patient and leads to frequent rebounds to the hospital. Also limits the provider's ability to care for patient adequately. Currently patient is even refusing to have extra IV line placed so he can receive IV fluids with potassium supplements while his insulin drip is running. Patient counseled on the importance of compliance with medication regimen. - Time Time Spent with patient: 35 or more minutes
[2020-03-02 12:04] LABS: ANION GAP 14 (5-19); BLOOD UREA NITROGEN 29 mg/dL (7-20); CALCIUM 8.5 mg/dL (8.4-10.2); CARBON DIOXIDE 22 mmol/L (22-30); CHLORIDE 94 mmol/L (98-107); POTASSIUM 4.9 mmol/L (3.6-5.0)
[2020-03-02 12:28] LABS: GLUCOSE 784 mg/dL (75-110)
[2020-03-02] MEDS: CHLORTHALIDONE 25 MG TABLET PO SCH (12:28)
[2020-03-02] MEDS: ONDANSETRON HCL INJ/PF 4 MG/2 ML SDV IV PRN ×2 (12:28→18:30)
[2020-03-02] MEDS ORDERED: HYDRALAZINE HCL INJ/PF 20 MG/1 ML SDV IV PRN (12:50)
[2020-03-02] MEDS: NORMAL SALINE 100 ML with INSULIN REGULAR, HUMAN 100 UNIT IV PRN ×4 (13:57→17:34)
[2020-03-02] MEDS: MAG HYDROX/AL HYDROX/SIMETH SUSP 30 ML UDCUP PO PRN ×2 (16:17→23:46)
[2020-03-02] MEDS: HEPARIN SOD (PORCINE) 5,000 UNIT/ML 1 ML VIAL SUBCUT SCH ×2 (16:19→21:54)
[2020-03-02] MEDS: LISINOPRIL 10 MG TABLET PO SCH (16:44)
[2020-03-02] MEDS ORDERED: HYDROXYZINE PAMOATE 25 MG CAPSULE PO PRN (18:09)
[2020-03-02] MEDS: INSULIN LISPRO 100 UNIT/ML 3 ML VIAL SUBCUT SCH ×2 (18:28→21:54)
[2020-03-02] MEDS ORDERED: INSULIN LISPRO 100 UNIT/ML 3 ML VIAL SUBCUT ONE (19:00)
[2020-03-02] MEDS: ROPINIROLE HCL 0.25 MG TABLET PO SCH (21:46)
[2020-03-02] MEDS: MIRTAZAPINE 15 MG TABLET PO SCH (21:47)
[2020-03-02] MEDS: TRAZODONE HCL 50 MG TABLET PO SCH (21:47)
[2020-03-02] MEDS: QUETIAPINE FUMARATE 100 MG TABLET PO SCH (21:47)
[2020-03-02] MEDS: INSULIN GLARGINE,HUM.REC.ANLOG 1,000 UNIT/10 ML VIAL SUBCUT SCH (21:52)
[2020-03-02] MEDS ORDERED: (PENDING PHARMACY ID) (Prazosin Hcl [Prazosin Hcl] 1 MG) PO SCH (22:00)
[2020-03-02 23:58] LABS: BLOOD UREA NITROGEN 22 mg/dL (7-20); CALCIUM 8.6 mg/dL (8.4-10.2); CARBON DIOXIDE 28 mmol/L (22-30); CHLORIDE 101 mmol/L (98-107); GLUCOSE 76 mg/dL (75-110)
[2020-03-03 00:04] LABS: ANION GAP 5 (5-19); POTASSIUM 3.4 mmol/L (3.6-5.0)
[2020-03-03] MEDS: HEPARIN SOD (PORCINE) 5,000 UNIT/ML 1 ML VIAL SUBCUT SCH ×3 (05:33→21:46)
[2020-03-03] MEDS: INSULIN LISPRO 100 UNIT/ML 3 ML VIAL SUBCUT SCH ×7 (08:03→21:46)
[2020-03-03] MEDS: TRAMADOL HCL 50 MG TABLET PO PRN ×2 (08:06→20:45)
[2020-03-03] MEDS: MAG HYDROX/AL HYDROX/SIMETH SUSP 30 ML UDCUP PO PRN ×2 (08:06→20:46)
[2020-03-03] MEDS ORDERED: POTASSIUM CHLORIDE 10 MEQ TABLET.ER PO ONE (09:00)
[2020-03-03] MEDS: CHLORTHALIDONE 25 MG TABLET PO SCH (09:50)
[2020-03-03] MEDS: BUSPIRONE HCL 10 MG TABLET PO SCH (09:50)
[2020-03-03] MEDS: LISINOPRIL 10 MG TABLET PO SCH ×2 (09:51→21:47)
[2020-03-03] MEDS: CITALOPRAM HYDROBROMIDE 20 MG TABLET PO SCH (09:51)
--- NOTE | 2020-03-03 11:04 | CDI QUERY ---
CDI Query CDI Review: Dear Provider, Please document in progress notes and D/C summary if you agree with the clinical data: HYPONATREMIA, improving? INSIGNIFICANT FINDING? OTHER? N/A? Na+ 125.4 / 130.4 / 133.5 IVF's Thanks, Jolynn Perez [phone]
--- NOTE | 2020-03-03 15:08 | PDOC PROGRESS REPORT ---
Subjective Progress Note for:: 03/03/20 Subjective:: c/o nausea today and heartburn. Reason For Visit: HYPERGLYCEMIA WITH HYPEROSMOLAR STATE, DIABETIC Physical Exam Vital Signs: Temp Pulse Resp BP Pulse Ox 99.0 F 99 18 148/82 H 97 03/03/20 11:39 03/03/20 14:00 03/03/20 11:39 03/03/20 11:39 03/03/20 11:39 Intake & Output 03/02/20 03/03/20 03/04/20 06:59 06:59 06:59 Intake Total 4028 550 Output Total 2300 1 Balance 1728 549 Weight 80.5 kg General appearance: PRESENT: no acute distress, cooperative Neck exam: ABSENT: JVD Respiratory exam: PRESENT: clear to auscultation juan ramon, unlabored Cardiovascular exam: PRESENT: +S1, +S2 GI/Abdominal exam: PRESENT: soft. ABSENT: rebound, rigid, tenderness Extremities exam: ABSENT: pedal edema, +1 edema Neurological exam: PRESENT: alert, awake Psychiatric exam: ABSENT: agitated, anxious Skin exam: ABSENT: erythema, jaundice Results Laboratory Results: 03/02/20 07:58 03/02/20 23:32 03/02/20 23:32 Sodium 133.5 L Potassium 3.4 L D Chloride 101 Carbon Dioxide 28 Anion Gap 5 BUN 22 H Creatinine 2.11 H Est GFR ( Amer) 43 L Glucose 76 Calcium 8.6 03/02/20 07:58 Troponin I < 0.012 Impressions: Chest X-Ray 03/02/20 07:30 IMPRESSION: NO ACUTE RADIOGRAPHIC FINDING IN THE CHEST. Assessment and Plan - Diagnosis (1) Uncontrolled type 1 diabetes mellitus Qualifiers: Glycemic state: with hyperglycemia Qualified Code(s): E10.65 - Type 1 diabetes mellitus with hyperglycemia Is this a current diagnosis for this admission?: Yes Plan: Blood sugars appear to be better. Patient is on Lantus 35 units nightly and lispro 15 units with meals. Continue Accu-Cheks and sliding scale insulin. unit educator consulted. Carb restricted diet. (2) HHNC (hyperglycemic hyperosmolar nonketotic coma) Is this a current diagnosis for this admission?: Yes Plan: HH NC resolved. Off insulin drip. (3) Hypertensive urgency Is this a current diagnosis for this admission?: Yes Plan: BP looks better today. Still uncontrolled hypertension. Have started patient on lisinopril 20 mg twice a day and chlorthalidone 25 mg daily. Will monitor closely and see if augmentation of antihypertensive medication is needed. (4) Chest pain Qualifiers: Chest pain type: chest pain on breathing Qualified Code(s): R07.1 - Chest pain on breathing; R07.81 - Pleurodynia Is this a current diagnosis for this admission?: Yes Plan: Complains of pleuritic chest pain. Has had multiple ER visits for chest pain. No evidence of ACS. EKG shows sinus tachycardia, evidence of LVH, no pathological Q waves, good R wave progression, no ST changes, but does show old findings of T wave inversions in leads V5 and V6. Troponin was negative. No need to trend. Chest x-ray is negative. Pain control. (5) Acute renal failure superimposed on stage 3 chronic kidney disease Is this a current diagnosis for this admission?: Yes Plan: Baseline creatinine seems to be between 1.5 and 2. Monitor I's and O's. Likely secondary to uncontrolled hypertension and diabetes mellitus. Creatinine seems to be plateauing around 2. Continue to monitor. He will need outpatient nephrology follow-up if compliant. (6) Tobacco dependency Is this a current diagnosis for this admission?: Yes Plan: Nicotine patch will be offered (7) Noncompliance Is this a current diagnosis for this admission?: Yes - Time Time Spent with patient: Less than 15 minutes
[2020-03-03] MEDS: QUETIAPINE FUMARATE 100 MG TABLET PO SCH (21:42)
[2020-03-03] MEDS: TRAZODONE HCL 50 MG TABLET PO SCH (21:42)
[2020-03-03] MEDS: ROPINIROLE HCL 0.25 MG TABLET PO SCH (21:43)
[2020-03-03] MEDS: MIRTAZAPINE 15 MG TABLET PO SCH (21:43)
[2020-03-03] MEDS: INSULIN GLARGINE,HUM.REC.ANLOG 1,000 UNIT/10 ML VIAL SUBCUT SCH (21:46)
[2020-03-04 07:17] LABS: ANION GAP 6 (5-19); BLOOD UREA NITROGEN 14 mg/dL (7-20); CALCIUM 8.5 mg/dL (8.4-10.2); CARBON DIOXIDE 27 mmol/L (22-30); CHLORIDE 99 mmol/L (98-107); GLUCOSE 193 mg/dL (75-110); POTASSIUM 3.4 mmol/L (3.6-5.0)
[2020-03-04] MEDS ORDERED: POTASSIUM CHLORIDE 10 MEQ TABLET.ER PO ONE (08:30)
[2020-03-04] MEDS ORDERED: AMLODIPINE BESYLATE 10 MG TABLET PO SCH (10:00)
[2020-03-04] MEDS: INSULIN LISPRO 100 UNIT/ML 3 ML VIAL SUBCUT SCH ×4 (10:07→13:21)
[2020-03-04] MEDS: LISINOPRIL 10 MG TABLET PO SCH (10:08)
[2020-03-04] MEDS: BUSPIRONE HCL 10 MG TABLET PO SCH (10:08)
[2020-03-04] MEDS: CITALOPRAM HYDROBROMIDE 20 MG TABLET PO SCH (10:09)
--- NOTE | 2020-03-04 11:30 | PDOC DISCHARGE SUMMARY ---
Impression - Admit/DC Date/PCP Admission Date/Primary Care Provider: 03/02/20 11:24 JARON ANN MD Discharge Date: 03/04/20 - Discharge Diagnosis (1) Uncontrolled type 1 diabetes mellitus Is this a current diagnosis for this admission?: Yes (2) HHNC (hyperglycemic hyperosmolar nonketotic coma) Is this a current diagnosis for this admission?: Yes (3) Hypertensive urgency Is this a current diagnosis for this admission?: Yes (4) Chest pain Is this a current diagnosis for this admission?: Yes (5) Acute renal failure superimposed on stage 3 chronic kidney disease Is this a current diagnosis for this admission?: Yes (6) Tobacco dependency Is this a current diagnosis for this admission?: Yes (7) Noncompliance Is this a current diagnosis for this admission?: Yes - Additional Information Resuscitation Status: Full Code Discharge Diet: Diabetic Discharge Activity: Activity As Tolerated Referrals: DALILA GRIMM MD [ACTIVE STAFF] - HARINI WAY MD [ACTIVE STAFF] - Prescriptions: Insulin Lispro [Humalog Insulin (Lispro) 100 unit/mL] 15 units SUBCUT AC #10 ml Insulin Glargine,Hum.rec.anlog [Lantus Insulin 100 Unit/1 ml 10 ml] 35 unit SUBCUT QHS #10 ml Lisinopril 20 mg PO Q12 30 Days Amlodipine Besylate [Norvasc 10 mg Tablet] 10 mg PO DAILY #30 tablet Metoclopramide HCl [Reglan 10 mg Tablet] 1 tab PO ASDIR PRN #20 tablet PRN Reason: Home Medications: Quetiapine Fumarate [Seroquel] 800 mg PO QHS 08/21/19 Trazodone HCl [Desyrel] 100 mg PO QHS 08/21/19 Buspirone HCl 5 mg PO DAILY 02/25/20 Citalopram Hydrobromide [Celexa] 40 mg PO DAILY 02/26/20 Hydroxyzine Pamoate [Vistaril] 25 mg PO TIDP PRN 02/26/20 Mirtazapine [Remeron 15 mg Tablet] 45 mg PO QHS 02/26/20 Prazosin HCl 1 mg PO QHS 02/26/20 Ropinirole HCl [Requip] 0.5 mg PO QHS 02/26/20 Amlodipine Besylate [Norvasc 10 mg Tablet] 10 mg PO DAILY #30 tablet 03/04/20 Insulin Glargine,Hum.rec.anlog [Lantus Insulin 100 Unit/1 ml 10 ml] 35 unit SUBCUT QHS #10 ml 03/04/20 Insulin Lispro [Humalog Insulin (Lispro) 100 unit/mL] 15 units SUBCUT AC #10 ml 03/04/20 Lisinopril 20 mg PO Q12 30 Days 03/04/20 Metoclopramide HCl [Reglan 10 mg Tablet] 1 tab PO ASDIR PRN #20 tablet 03/04/20 History of Present Illiness History of Present Illness: LENA SCHULZ is a 34 year old male with history of diabetes mellitus, hypertension, CKD, schizophrenia and noncompliance, who presents to the hospital with complaint of nausea and vomiting since yesterday. States that he noted his sugar was high when at home via measurement. Patient denies any abdominal pain or dysuria but admits to polyuria. Patient states that he takes his prescribed insulin and that he takes Lantus 35 units every morning and sliding scale. Denies missing his Lantus yesterday. Denies eating any high calorie or high sugar contents. I was informed by ER provider that patient has been discharged from Dr. Ann service due to significant history of noncompliance. Hospital Course Hospital Course: Patient was admitted to the hospital for management of HH NK. This was secondary to noncompliance with insulin regimen. Patient has a notable history of being noncompliant with his medical treatment plan as well as outpatient appointments and as a result was actually just discharged from Dr. Ann's service as patient was noncompliant with follow-up appointments. Patient was admitted and given lots of IV fluids as well as placed on an insulin drip. He is HHN K corrected rather quickly. He was subsequently transitioned to subcut aneous insulin and his home regimen of Lantus 35 units once a day and 15 units Humalog 3 times a day before meals was restarted and has controlled his blood sugar rather effectively. Patient just needs to be compliant to his medication regimen. His blood pressure was also uncontrolled and he was in hypertensive urgency upon presentation. Patient has been put on lisinopril 20 mg twice a day as well as amlodipine 10 mg daily. Patient has been recommended to follow-up with a new primary care provider and I have placed order to set patient up with a home nurse to monitor patient's medication administration as well as blood pressure especially given his noncompliance history. Patient will also need follow-up with a gum puller for management of his CKD. Physical Exam Vital Signs: Temp Pulse Resp BP Pulse Ox 98.4 F 93 18 153/95 H 97 03/04/20 08:17 03/04/20 08:17 03/04/20 08:17 03/04/20 08:17 03/04/20 08:17 Intake & Output 03/03/20 03/04/20 03/05/20 06:59 06:59 06:59 Intake Total 4028 2570 Output Total 2300 3 Balance 1728 2567 Weight 80.5 kg 80.1 kg General appearance: PRESENT: no acute distress, cooperative Respiratory exam: PRESENT: unlabored. ABSENT: accessory muscle use, retraction GI/Abdominal exam: PRESENT: soft. ABSENT: distended, rebound, rigid, tenderness Neurological exam: PRESENT: alert, awake Results Laboratory Results: WBC 12.2 10^3/uL (4.0-10.5) H 03/02/20 07:58 RBC 4.59 10^6/uL (4.35-5.55) 03/02/20 07:58 Hgb 12.4 g/dL (13.5-17.0) L 03/02/20 07:58 Hct 40.0 % (37.9-51.0) 03/02/20 07:58 MCV 87 fl (80-97) D 03/02/20 07:58 MCH 26.9 pg (27.0-33.4) L 03/02/20 07:58 MCHC 30.9 g/dL (32.0-36.0) L 03/02/20 07:58 RDW 14.2 % (11.5-14.0) H 03/02/20 07:58 Plt Count 282 10^3/uL (150-450) 03/02/20 07:58 Lymph % (Auto) 5.5 % (13-45) L 03/02/20 07:58 [place] % (Auto) 3.9 % (3-13) 03/02/20 07:58 Eos % (Auto) 0.0 % (0-6) 03/02/20 07:58 Baso % (Auto) 0.4 % (0-2) 03/02/20 07:58 Absolute Neuts (auto) 11.0 10^3/uL (1.7-8.2) H 03/02/20 07:58 Absolute Lymphs (auto) 0.7 10^3/uL (0.5-4.7) 03/02/20 07:58 Absolute Monos (auto) 0.5 10^3/uL (0.1-1.4) 03/02/20 07:58 Absolute Eos (auto) 0.0 10^3/uL (0.0-0.6) 03/02/20 07:58 Absolute Basos (auto) 0.0 10^3/uL (0.0-0.2) 03/02/20 07:58 Seg Neutrophils % 90.2 % (42-78) H 03/02/20 07:58 VBG pH 7.36 (7.30-7.42) 03/02/20 07:58 VBG pCO2 45.9 mmHg (35-63) 03/02/20 07:58 VBG HCO3 25.5 mmol/L (20-32) 03/02/20 07:58 VBG Base Excess -0.4 mmol/L 03/02/20 07:58 Sodium 131.6 mmol/L (137-145) L 03/04/20 06:38 Potassium 3.4 mmol/L (3.6-5.0) L 03/04/20 06:38 Chloride 99 mmol/L (98-107) 03/04/20 06:38 Carbon Dioxide 27 mmol/L (22-30) 03/04/20 06:38 Anion Gap 6 (5-19) 03/04/20 06:38 BUN 14 mg/dL (7-20) 03/04/20 06:38 Creatinine 2.04 mg/dL (0.52-1.25) H 03/04/20 06:38 Est GFR ( Amer) 45 (>60) L 03/04/20 06:38 Est GFR (MDRD) Non-Af 37 (>60) L 03/04/20 06:38 Glucose 193 mg/dL (75-110) H 03/04/20 06:38 POC Glucose 190 mg/dL (70-110) H 03/04/20 07:19 Calcium 8.5 mg/dL (8.4-10.2) 03/04/20 06:38 Total Bilirubin 0.8 mg/dL (0.2-1.3) 03/02/20 07:58 Direct Bilirubin 0.3 mg/dL (0.0-0.4) 03/02/20 07:58 Neonat Total Bilirubin Not Reportable 03/02/20 07:58 Neonat Direct Bilirubin Not Reportable 03/02/20 07:58 Neonat Indirect Bili Not Reportable 03/02/20 07:58 AST 15 U/L (17-59) L 03/02/20 07:58 ALT 11 U/L (<50) 03/02/20 07:58 Alkaline Phosphatase 107 U/L (38-126) 03/02/20 07:58 Troponin I < 0.012 ng/mL 03/02/20 07:58 Total Protein 5.9 g/dL (6.3-8.2) L 03/02/20 07:58 Albumin 3.3 g/dL (3.5-5.0) L 03/02/20 07:58 Urine Color STRAW 03/02/20 08:40 Urine Appearance CLEAR 03/02/20 08:40 Urine pH 6.0 (5.0-9.0) 03/02/20 08:40 Ur Specific [place] 1.020 03/02/20 08:40 Urine Protein 100 mg/dL (NEGATIVE) H 03/02/20 08:40 Urine Glucose (UA) >=500 mg/dL (NEGATIVE) H 03/02/20 08:40 Urine Ketones 20 mg/dL (NEGATIVE) H 03/02/20 08:40 Urine Blood SMALL (NEGATIVE) H 03/02/20 08:40 Urine Nitrite (Reflex) NEGATIVE (NEGATIVE) 03/02/20 08:40 Urine Bilirubin NEGATIVE (NEGATIVE) 03/02/20 08:40 Urine Urobilinogen NEGATIVE mg/dL (<2.0) 03/02/20 08:40 Leukocyte Esterase Rfl NEGATIVE (NEGATIVE) 03/02/20 08:40 Urine RBC (Auto) 1 /HPF 03/02/20 08:40 Urine WBC (Reflex) < 1 /HPF 03/02/20 08:40 Urine Mucus (Auto) RARE /LPF 03/02/20 08:40 Urine Ascorbic Acid NEGATIVE (NEGATIVE) 03/02/20 08:40 Urine Opiates Screen NEGATIVE 03/02/20 08:40 Urine Methadone Screen NEGATIVE 03/02/20 08:40 Ur Barbiturates Screen NEGATIVE 03/02/20 08:40 Ur Phencyclidine Scrn NEGATIVE 03/02/20 08:40 Ur Amphetamines Screen NEGATIVE 03/02/20 08:40 U Benzodiazepines Scrn NEGATIVE 03/02/20 08:40 Urine Cocaine Screen NEGATIVE 03/02/20 08:40 U Marijuana (THC) Screen NEGATIVE 03/02/20 08:40 Serum Alcohol < 10 mg/dL (NONE DETECTED) 03/02/20 07:58 03/02/20 07:58 Troponin I < 0.012 Impressions: Chest X-Ray 03/02/20 07:30 IMPRESSION: NO ACUTE RADIOGRAPHIC FINDING IN THE CHEST. Plan Time Spent: Less than 30 Minutes Stroke Is this a Stroke Patient?: No Acute Heart Failure - Is this a Heart Failure Patient?: No
[2020-03-04] MEDS: TRAMADOL HCL 50 MG TABLET PO PRN (12:45)
[2020-03-04] MEDS: MAG HYDROX/AL HYDROX/SIMETH SUSP 30 ML UDCUP PO PRN (12:46)
[2020-03-04 13:33] VITALS: BP 140/89
== END 2020-03-04 15:46 | disposition home or self-care (01) | DRG 638 ==
LOC: ER 07:20 → EH 11:24 → 3W 14:14
PROVIDERS: ADMIT Internal Medicine; ATTEND Internal Medicine
DX: E10.65 Type 1 diabetes mellitus with hyperglycemia (principal); N17.9 Acute kidney failure, unspecified; Z79.4 Long term (current) use of insulin; E10.22 Type 1 diabetes mellitus with diabetic chronic kidney disease; I12.9 Hypertensive chronic kidney disease with stage 1 through stage 4 chronic kidney disease, or unspecified chronic kidney disease; F25.9 Schizoaffective disorder, unspecified; F17.200 Nicotine dependence, unspecified, uncomplicated; I16.0 Hypertensive urgency; N18.3 Chronic kidney disease, stage 3 (moderate); F41.9 Anxiety disorder, unspecified; E10.43 Type 1 diabetes mellitus with diabetic autonomic (poly)neuropathy; K31.84 Gastroparesis; F31.9 Bipolar disorder, unspecified; Z90.49 Acquired absence of other specified parts of digestive tract; Z79.899 Other long term (current) drug therapy; I25.2 Old myocardial infarction; Z86.14 Personal history of Methicillin resistant Staphylococcus aureus infection; Z91.14 Patient's other noncompliance with medication regimen; F32.9 Major depressive disorder, single episode, unspecified; Z83.3 Family history of diabetes mellitus
CPT/HCPCS: 36415; 71045; 80048; 80053; 80307; 81001; 82803; 82962; 84484; 85025; 93005; 93010; 96360; 96361; 96372; 99291; J0360; J1815; J1885; J2405; J2550; J3480; J3490; J7030; J7050

== ENCOUNTER 2020-05-02 10:53 | Inpatient (IN) | payer MEDICAID ==
[2020-05-02] MEDS ORDERED: NORMAL SALINE 1000 ML 1,000 ML IV ONE (11:52)
--- NOTE | 2020-05-02 11:55 | ER Document Report ---
ED Medical Screen (RME) - General Chief Complaint: High Blood Sugar Stated Complaint: VOMITING,THROAT SWOLLEN Time Seen by Provider: 05/02/20 11:33 Mode of Arrival: Ambulatory Information source: Patient Notes: 34-year-old male presented to ED for getting admitted for a tube placement for feeding. He is diabetic. He has not been able to eat or drink so he has not been taking his insulin and his Accu-Chek is been running very high at home. He has high blood pressure not able to take his high blood pressure medicine he has schizophrenia and not able to take his medicines. He states he is not a been able to eat or drink for a while. He did have an appointment with Leona who did a EGD and he is to get admitted for tube placement. He does have esophagitis. He states he does smoke a pack a day and does smoke some marijuana. We will get Accu-Chek blood work start IV get EKG chest x-ray to prepare him for admission. I have greeted and performed a rapid initial assessment of this patient. A comprehensive ED assessment and evaluation of the patient, analysis of test results and completion of medical decision making process will be conducted by an additional ED providers. TRAVEL OUTSIDE OF THE [place] IN LAST 30 DAYS: No - Related Data Allergies/Adverse Reactions: No Known Allergies Allergy (Verified 05/02/20 11:50) Past Medical History - Social History Family history: Reviewed & Not Pertinent - Past Medical History Cardiac Medical History: Reports: Hx Heart Attack - May 2017., Hx Hypertension Denies: Hx Congestive Heart Failure, Hx DVT, Hx Hypercholesterolemia, Hx Pulmonary Embolism Pulmonary Medical History: Reports: Hx Asthma - as child Denies: Hx COPD, Hx Sleep Apnea Neurological Medical History: Reports: Hx Migraine. Denies: Hx Seizures Endocrine Medical History: Reports: Hx Diabetes Mellitus Type 1. Denies: Hx Diabetes Mellitus Type 2, Hx Hyperthyroidism, Hx Hypothyroidism Renal/ Medical History: Denies: Hx Peritoneal Dialysis GI Medical History: Denies: Hx Cirrhosis, Hx Gastroesophageal Reflux Disease, Hx Hepatitis Musculoskeltal Medical History: Denies Hx Arthritis Psychiatric Medical History: Reports: Hx Anxiety, Hx Bipolar Disorder, Hx Depression, Hx Schizoaffective Disorder, Hx Schizophrenia Infectious Medical History: Denies: Hx C-Diff, Hx Hepatitis, Hx MRSA Past Surgical History: Reports: Hx Appendectomy, Hx Oral Surgery - wisdom teeth, Other - [place] teeth extraction - Immunizations Hx Diphtheria, Pertussis, Tetanus Vaccination: Yes Physical Exam - Vital signs Vitals: Temp Pulse Resp BP Pulse Ox 98.0 F 86 16 129/74 H 100 05/02/20 11:38 05/02/20 11:38 05/02/20 11:38 05/02/20 11:38 05/02/20 11:38 Course - Vital Signs Vital signs: Temp Pulse Resp BP Pulse Ox 98.0 F 86 16 129/74 H 100 05/02/20 11:38 05/02/20 11:38 05/02/20 11:38 05/02/20 11:38 05/02/20 11:38
--- NOTE | 2020-05-02 13:23 | RADIOLOGY REPORT (SQ) ---
EXAM DESCRIPTION: CHEST 2 VIEWS IMAGES COMPLETED DATE/TIME: 05/02/2020 1:06 pm REASON FOR STUDY: Elevated blood sugar, preop COMPARISON: 03/02/2020 EXAM PARAMETERS: NUMBER OF VIEWS: two views TECHNIQUE: Digital Frontal and Lateral radiographic views of the chest acquired. RADIATION DOSE: NA LIMITATIONS: none FINDINGS: LUNGS AND PLEURA: No opacities, masses or pneumothorax. No pleural effusion. MEDIASTINUM AND HILAR STRUCTURES: No masses or contour abnormalities. HEART AND VASCULAR STRUCTURES: Heart normal size. No evidence for failure. BONES: No acute findings. HARDWARE: None in the chest. OTHER: No other significant finding. IMPRESSION: NO ACUTE RADIOGRAPHIC FINDING IN THE CHEST. TECHNICAL DOCUMENTATION: JOB ID: [id number] 2010 [employer]- All Rights Reserved Reading location - IP/workstation name: [email or web address]
[2020-05-02 13:50] LABS: ABSOLUTE LYMPHOCYTES (AUTO) 0.7 10^3/uL (0.5-4.7); ABSOLUTE MONOCYTES (AUTO) 0.3 10^3/uL (0.1-1.4); ABSOLUTE NEUT (AUTO) 7.8 10^3/uL (1.7-8.2); BASOPHILS % (AUTO) 0.5 % (0-2); EOSINOPHILS % (AUTO) 0.2 % (0-6); HEMATOCRIT 46.7 % (37.9-51.0); HEMOGLOBIN 15.1 g/dL (13.5-17.0); LYMPHOCYTES % (AUTO) 7.5 % (13-45); MEAN CORPUSCULAR HEMOGLOBIN 26.8 pg (27.0-33.4); MEAN CORPUSCULAR HGB CONC 32.4 g/dL (32.0-36.0); MEAN CORPUSCULAR VOLUME 83 fl (80-97); MONOCYTES % (AUTO) 3.5 % (3-13); PLATELET COUNT 283 10^3/uL (150-450); RED BLOOD COUNT 5.63 10^6/uL (4.35-5.55); SEGMENTED NEUTROPHILS % (AUTO) 88.3 % (42-78); TOTAL CELLS COUNTED % (AUTO) 100 %; WHITE BLOOD COUNT 8.8 10^3/uL (4.0-10.5)
[2020-05-02 14:16] LABS: ALBUMIN 4.7 g/dL (3.5-5.0); ALKALINE PHOSPHATASE 122 U/L (38-126); ANION GAP 15 (5-19); ASPARTATE AMINO TRANSFERASE 21 U/L (17-59); BILIRUBIN,DIRECT 0.3 mg/dL (0.0-0.4); BILIRUBIN,TOTAL 0.7 mg/dL (0.2-1.3); BLOOD UREA NITROGEN 19 mg/dL (7-20); CARBON DIOXIDE 23 mmol/L (22-30); CHLORIDE 97 mmol/L (98-107); CREATINE KINASE 70 U/L (55-170); POTASSIUM 5.8 mmol/L (3.6-5.0); TOTAL PROTEIN 8.3 g/dL (6.3-8.2)
[2020-05-02 14:26] LABS: GLUCOSE 547 mg/dL (75-110)
--- NOTE | 2020-05-02 15:15 | ER Document Report ---
ED General - General Chief Complaint: High Blood Sugar Stated Complaint: VOMITING,THROAT SWOLLEN Time Seen by Provider: 05/02/20 11:33 Mode of Arrival: Ambulatory Notes: 34-year-old man presents to the emergency department with a history of difficulty swallowing. He has gone approximately a week to 10 days without ea ting very well or drinking fluids. He has a type I diabetic and unable to tolerate p.o. meds or his insulin. He was seen for outpatient EGD a week ago noted to have severe esophagitis with stricture and ulcer. He is being sent to the hospital for admission and possible PEG tube placement. He was seen by gastroenterology, Dr. Delgadillo. TRAVEL OUTSIDE OF THE [place] IN LAST 30 DAYS: No - Related Data Allergies/Adverse Reactions: No Known Allergies Allergy (Verified 05/02/20 11:50) Home Medications: humalog, lantus, seroquel, lisinopril Past Medical History - General Information source: Patient - Social History Smoking Status: Current Every Day Smoker Chew tobacco use (# tins/day): No Frequency of alcohol use: None Drug Abuse: Marijuana Family History: Reviewed & Not Pertinent, DM, Hypertension Patient has homicidal ideation: No - Past Medical History Cardiac Medical History: Reports: Hx Heart Attack - May 2017., Hx H ypertension Denies: Hx Congestive Heart Failure, Hx DVT, Hx Hypercholesterolemia, Hx Pulmonary Embolism Pulmonary Medical History: Reports: Hx Asthma - as child Denies: Hx COPD, Hx Sleep Apnea Neurological Medical History: Reports: Hx Migraine. Denies: Hx Seizures Endocrine Medical History: Reports: Hx Diabetes Mellitus Type 1. Denies: Hx Diabetes Mellitus Type 2, Hx Hyperthyroidism, Hx Hypothyroidism Renal/ Medical History: Denies: Hx Peritoneal Dialysis GI Medical History: Denies: Hx Cirrhosis, Hx Gastroesophageal Reflux Disease, Hx Hepatitis Musculoskeletal Medical History: Denies Hx Arthritis Psychiatric Medical History: Reports: Hx Anxiety, Hx Bipolar Disorder, Hx Depression, Hx Schizoaffective Disorder, Hx Schizophrenia Infectious Medical History: Denies: Hx C-Diff, Hx Hepatitis, Hx MRSA Past Surgical History: Reports: Hx Appendectomy, Hx Oral Surgery - wisdom teeth, Other - [place] teeth extraction - Immunizations Hx Diphtheria, Pertussis, Tetanus Vaccination: Yes Hx Pneumococcal Vaccination: 09/16/00 Review of Systems - Review of Systems Notes: Constitutional: + Generalized weakness HENT: + Dry mucous membranes, negative for sore throat. Eyes: Negative for visual changes. Cardiovascular: Negative for chest pain. Respiratory: Negative for shortness of breath. Gastrointestinal: Negative for abdominal pain, vomiting or diarrhea. Genitourinary: Negative for dysuria. Musculoskeletal: Negative for back pain. Skin: Negative for rash. Neurological: Negative for headaches, weakness or numbness. 10 point ROS negative except as marked above and in HPI. Physical Exam - Vital signs Vitals: Temp Pulse Resp BP Pulse Ox 98.0 F 86 16 129/74 H 100 05/02/20 11:38 05/02/20 11:38 05/02/20 11:38 05/02/20 11:38 05/02/20 11:38 - Notes Notes: PHYSICAL EXAMINATION: Physical Exam: General: Ill-appearing 34-year-old male in no acute distress HEENT: NC/AT, pupils equal round and reactive to light, MM moist dry,nares clear, oropharynx clear, airway patent Neck: supple, no adenopathy, no masses. Good range of motion Lungs: clear, no wheezing, no rales no rhonchi CVS: Tachycardic rate and rhythm no murmur gallop or rub Abdomen: Soft, active, nontender, no masses, no hepatosplenomegaly Ext: No edema, clubbing or cyanosis. Neuro: Alert and responsive, moving all 4 extremities on command, cranial nerves intact, no focal findings Skin: Intact no open lesions, no rash Course - Re-evaluation Re-evalutation: 05/02/20 15:57 Patient is given normal saline bolus, regular Humulin 8 units IV, and I have contacted the hospitalist for admission. Creatinine of 2.21, glucose of 547. Patient having dysphasia, EGD with multiple ulcers and stricture. Dr Delgadillo, gastroenterology notes that patient needs a PEG tube. 05/02/20 15:59 Patient will be admitted to the hospitalist service, Dr. Ramírez to admit. - Vital Signs Vital signs: Temp Pulse Resp BP Pulse Ox 98.0 F 114 H 20 149/107 H 100 05/02/20 11:38 05/02/20 18:17 05/02/20 15:01 05/02/20 17:30 05/02/20 15:01 - Laboratory Result Diagrams: 05/02/20 13:25 05/02/20 13:25 Laboratory results interpreted by me: 05/02/20 05/02/20 05/02/20 11:56 13:25 13:25 RBC 5.63 H MCH 26.8 L RDW 15.0 H Lymph % (Auto) 7.5 L Seg Neutrophils % 88.3 H Sodium 134.6 L Potassium 5.8 H Chloride 97 L Creatinine 2.21 H Est GFR ( Amer) 41 L Est GFR (MDRD) Non-Af 34 L Glucose 547 H* POC Glucose 436 H* Total Protein 8.3 H Urine Protein Urine Glucose (UA) Urine Ketones 05/02/20 05/02/20 16:15 16:23 RBC MCH RDW Lymph % (Auto) Seg Neutrophils % Sodium Potassium Chloride Creatinine Est GFR ( Amer) Est GFR (MDRD) Non-Af Glucose POC Glucose 511 H* Total Protein Urine Protein 100 H Urine Glucose (UA) >=500 H Urine Ketones 20 H - Diagnostic Test Radiology reviewed: Image reviewed, Reports reviewed Radiology results interpreted by me: 05/02/20 16:01 Chest x-ray: No acute infiltrates noted. Negative cardiopulmonary findings. - EKG Interpretation by Me Rate: Tachycardia - Interpreted by me: Sinus tachycardia, rate 132, nonspecific T wave abnormality, may be rate related, prolonged QT, no acute ST or T wave abnormalities consistent with ischemic changes. There is no previous EKG to compare. Critical Care Note - Critical Care Note Total time excluding time spent on procedures (mins): 45 - Critical care time spent obtaining history from patient or surrogate, discussions with consultants, development of treatment plan with patient or surrogate, evaluation of patient's response to treatment, examination of patient, ordering and performing treatments and interventions, ordering and review of laboratory studies, re- evaluation of patient's condition, ordering and review of radiographic studies and review of old charts Discharge - Discharge Clinical Impression: Dehydration, Esophagitis, Acute hyperkalemia Uncontrolled type 1 diabetes mellitus Qualifiers: Glycemic state: with hyperglycemia Qualified Code(s): E10.65 - Type 1 diabetes mellitus with hyperglycemia [id number] kidney injury Qualifiers: Acute renal failure type: unspecified Chronic kidney disease stage: stage 2 (mild) Qualified Code(s): N17.9 - Acute kidney failure, unspecified Condition: Good Disposition: ADMITTED INPATIENT Admitting Provider: Darrell (Hospitalist) Unit Admitted: [facility]
[2020-05-02] MEDS ORDERED: INSULIN REG, HUMAN 100 UNIT/ML 3 ML VIAL (PYX) IV ONE (15:17)
[2020-05-02 16:31] LABS: APPEARANCE,URINE CLEAR; BILIRUBIN,URINE NEGATIVE (NEGATIVE); COLOR,URINE STRAW; GLUCOSE, URINE >=500 mg/dL (NEGATIVE); KETONES,URINE 20 mg/dL (NEGATIVE); LEUKOCYTE ESTERASE,URINE NEGATIVE (NEGATIVE); NITRITE,URINE NEGATIVE (NEGATIVE); PROTEIN,URINE 100 mg/dL (NEGATIVE); URINE SPECIFIC GRAVITY 1.018; UROBILINOGEN,URINE NEGATIVE mg/dL (<2.0)
[2020-05-02] MEDS ORDERED: DEXTROSE 50%-WATER 25 GM/50 ML DISP.SYRIN IV PRN ×2 (17:34)
[2020-05-02] MEDS ORDERED: GLUCAGON,HUMAN RECOMB 1 MG INJ SUBCUT PRN (17:34)
[2020-05-02] MEDS ORDERED: DEXTROSE 40% GEL 15 GM TUBE PO PRN ×2 (17:34)
[2020-05-02] MEDS ORDERED: ACETAMINOPHEN 325 MG TABLET PO PRN (17:34)
[2020-05-02] MEDS ORDERED: NORMAL SALINE 1000 ML 1,000 ML IV PRN ×2 (17:34→18:04)
[2020-05-02] MEDS ORDERED: ONDANSETRON HCL INJ/PF 4 MG/2 ML SDV IV PRN (17:40)
[2020-05-02] MEDS ORDERED: ACETAMINOPHEN 650 MG SUPP.RECT PR PRN (18:00)
--- NOTE | 2020-05-02 18:00 | PDOC H&P ---
History of Present Illness Admission Date/PCP: 05/02/20 16:34 Patient complains of: Dysphagia History of Present Illness: LENA SCHULZ is a 34 year old male with history of diabetes mellitus, GERD, who presents to the hospital for worsening dysphagia. At this point he is having dysphagia with both solids and liquids. He has been regurgitating food. He has been unable to tolerate p.o. diet for the past [address] Delgadillo in the office within the past 2 weeks and had an upper endoscopy done which revealed severe stricture of his esophagus. The stricture was not amenable to dilation. Given progression of his dysphagia, he called Dr. Delgadillo's office and was referred to the ER for PEG tube placement to help with his nutrition. In the ER he was noted to be hyperglycemic with blood glucose of 547. Past Medical History Cardiac Medical History: Reports: Myocardial Infarction - May 2017., Hypertension Denies: Congestive Heart Failure, DVT, Hyperlipidema, Pulmonary Embolism Pulmonary Medical History: Reports: Asthma - as child Denies: Chronic Obstructive Pulmonary Disease (COPD), Sleep Apnea Neurological Medical History: Reports: Migraine Denies: Seizures Endocrine Medical History: Reports: Diabetes Mellitus Type 1 Denies: Diabetes Mellitus Type 2, Hyperthyroidism, Hypothyroidism GI Medical History: Denies: Cirrhosis, Gastroesophageal Reflux Disease, Hepatitis Musculoskeltal Medical History: Denies: Arthritis Psychiatric Medical History: Reports: Bipolar Disorder, Depression, Schizoaffective Disorder Infectious Medical History: Denies: Clostridium Difficile, Methicillin-Resistant Staph Aureus Past Surgical History Past Surgical History: Reports: Appendectomy, Other - [place] teeth extraction Social History Smoking Status: Current Every Day Smoker Electronic Cigarette use?: No Frequency of Alcohol Use: None Hx Recreational Drug Use: No Drugs: None Hx Prescription Drug Abuse: No - Advance Directive Resuscitation Status: Full Code Family History Family History: DM, Hypertension Parental Family History Reviewed: Yes Children Family History Reviewed: NA Sibling(s) Family History Reviewed.: NA Medication/Allergy Home Medications: Quetiapine Fumarate [Seroquel] 800 mg PO QHS 08/21/19 Trazodone HCl [Desyrel] 100 mg PO QHS 08/21/19 Buspirone HCl 5 mg PO DAILY 02/25/20 Citalopram Hydrobromide [Celexa] 40 mg PO DAILY 02/26/20 Hydroxyzine Pamoate [Vistaril] 25 mg PO TIDP PRN 02/26/20 Mirtazapine [Remeron 15 mg Tablet] 45 mg PO QHS 02/26/20 Prazosin HCl 1 mg PO QHS 02/26/20 Ropinirole HCl [Requip] 0.5 mg PO QHS 02/26/20 Amlodipine Besylate [Norvasc 10 mg Tablet] 10 mg PO DAILY #30 tablet 03/04/20 Insulin Glargine,Hum.rec.anlog [Lantus Insulin 100 Unit/1 ml 10 ml] 35 unit SUBCUT QHS #10 ml 03/04/20 Insulin Lispro [Humalog Insulin (Lispro) 100 unit/mL] 15 units SUBCUT AC #10 ml 03/04/20 Lisinopril 20 mg PO Q12 30 Days 03/04/20 Metoclopramide HCl [Reglan 10 mg Tablet] 1 tab PO ASDIR PRN #20 tablet 03/04/20 Allergies/Adverse Reactions: No Known Allergies Allergy (Verified 05/02/20 11:50) Review of Systems Constitutional: PRESENT: anorexia, fatigue. ABSENT: fever(s) Eyes: ABSENT: visual disturbances Nose, Mouth, and Throat: ABSENT: headache(s) Cardiovascular: ABSENT: chest pain Respiratory: ABSENT: cough, dyspnea Gastrointestinal: PRESENT: nausea, vomiting Genitourinary: ABSENT: dysuria Integumentary: ABSENT: diaphoresis Neurological: ABSENT: dizziness, syncope Endocrine: PRESENT: polyuria Allergic/Immunologic: ABSENT: seasonal rhinorrhea Physical Exam Vital Signs: Temp Pulse Resp BP Pulse Ox 98.0 F 86 20 138/93 H 100 05/02/20 11:38 05/02/20 11:38 05/02/20 15:01 05/02/20 15:01 05/02/20 15:01 Intake & Output 05/01/20 05/02/20 05/03/20 06:59 06:59 06:59 Intake Total 1000 Balance 1000 Weight 70.3 kg General appearance: PRESENT: no acute distress, cooperative Head exam: PRESENT: normocephalic Eye exam: PRESENT: EOMI Neck exam: ABSENT: JVD Respiratory exam: PRESENT: clear to auscultation juan ramon, symmetrical, unlabored. ABSENT: tachypnea, wheezes Cardiovascular exam: PRESENT: RRR, +S1, +S2. ABSENT: tachycardia GI/Abdominal exam: PRESENT: normal bowel sounds, soft, tenderness. ABSENT: distended, firm, guarding, rebound, rigid Extremities exam: ABSENT: pedal edema Neurological exam: PRESENT: alert, awake, oriented to person, oriented to place, oriented to time Psychiatric exam: ABSENT: agitated, anxious Focused psych exam: ABSENT: pressured speech Skin exam: PRESENT: intact. ABSENT: jaundice Results Laboratory Results: 05/02/20 13:25 05/02/20 13:25 05/02/20 05/02/20 05/02/20 13:25 13:25 16:15 WBC 8.8 RBC 5.63 H Hgb 15.1 Hct 46.7 MCV 83 MCH 26.8 L MCHC 32.4 RDW 15.0 H Plt Count 283 Seg Neutrophils % 88.3 H Sodium 134.6 L Potassium 5.8 H Chloride 97 L Carbon Dioxide 23 Anion Gap 15 BUN 19 Creatinine 2.21 H Est GFR ( Amer) 41 L Glucose 547 H* Calcium 10.0 Total Bilirubin 0.7 AST 21 Alkaline Phosphatase 122 Total Protein 8.3 H Albumin 4.7 Urine Color STRAW Urine Appearance CLEAR Urine pH 5.0 Ur Specific [place] 1.018 Urine Protein 100 H Urine Glucose (UA) >=500 H Urine Ketones 20 H Urine Blood NEGATIVE Urine Nitrite NEGATIVE Ur Leukocyte Esterase NEGATIVE Urine WBC (Auto) 1 05/02/20 05/02/20 13:25 13:25 Creatine Kinase 70 Troponin I < 0.012 Impressions: Chest X-Ray 05/02/20 11:53 IMPRESSION: NO ACUTE RADIOGRAPHIC FINDING IN THE CHEST. Assessment and Plan - Diagnosis (1) Esophageal stricture Is this a current diagnosis for this admission?: Yes Plan: I have called and discussed case with Dr. Delgadillo he informs me that he just performed upper endoscopy on patient which showed very severe esophageal stricture which is not amenable to dilation and suspected to be secondary to chronic uncontrolled GERD. He recommends, that given patient's severe dysphagia which has now progressed to involve liquids as well, PEG tube placement will be the next step while continuing PPI and Carafate to help patient heal. Consulted surgery for PEG tube placement. Preop COVID test. IV fluids. Keep patient n.p.o. Check coags (2) Hyperglycemia due to type 1 diabetes mellitus Is this a current diagnosis for this admission?: Yes Plan: Hyperglycemic in the 500s on presentation. Received some IV insulin and fluid boluses with improvement to 300s. No evidence of DKA at this time. Will treat patient with fluids and subcutaneous insulin. (3) Chronic kidney disease Is this a current diagnosis for this admission?: Yes Plan: Somewhat stable but a mild bump from dehydration. Receiving IV fluids. (4) Hyperkalemia Is this a current diagnosis for this admission?: Yes Plan: Likely secondary to hyperosmolar hyperglycemic state. No concerning EKG changes. Treated with IV insulin and hydration. Recheck potassium level. Hold lisinopril for today. (5) Hypertension Qualifiers: Hypertension type: essential hypertension Qualified Code(s): I10 - Essential (primary) hypertension Is this a current diagnosis for this admission?: Yes Plan: We will try to see if he can tolerate oral meds. If not we will try IV medications to keep his blood pressure controlled. (6) Tobacco dependency Is this a current diagnosis for this admission?: Yes Plan: Nicotine patch will be offered - Time Time Spent with patient: 35 or more minutes Anticipated Discharge Disposition: Home, Self Care Anticipated Discharge Timeframe: within 72 hours
[2020-05-02] MEDS ORDERED: NICOTINE 14 MG/24 HR PATCH.TD24 TD PRN (18:04)
[2020-05-02] MEDS ORDERED: INSULIN NPH (ISOPHANE), HUMAN 100 UNIT/ML 3 ML SUBCUT ONE ×2 (18:45→22:00)
[2020-05-02] MEDS ORDERED: ASPIRIN 81 MG TABLET, CHEWABLE PO ONE ×2 (19:01→22:00)
[2020-05-02] MEDS ORDERED: NITROGLYCERIN 2% OINTMENT 1 GM PACKET TP ONE ×2 (19:01→22:00)
[2020-05-02] MEDS: INSULIN LISPRO 100 UNIT/ML 3 ML VIAL SUBCUT SCH (19:07)
[2020-05-02 19:09] VITALS: BP 149/97
--- NOTE | 2020-05-02 21:35 | EKG REPORT ---
SEVERITY:- ABNORMAL ECG - SINUS TACHYCARDIA VS ATRIAL FLUTTER WITH 2:1 CONDUCTION ABNORMAL T, CONSIDER ISCHEMIA, DIFFUSE LEADS PROLONGED QT INTERVAL : Confirmed by: Zakiya Francis 02-May-2020 21:35:02
[2020-05-02] MEDS ORDERED: INSULIN GLARGINE,HUM.REC.ANLOG 1,000 UNIT/10 ML VIAL (PYX) SUBCUT ONE (22:00)
[2020-05-02] MEDS ORDERED: SUCRALFATE 1 GM TABLET PO SCH (22:00)
[2020-05-02] MEDS ORDERED: PANTOPRAZOLE SODIUM 40 MG VIAL IV SCH (22:00)
[2020-05-02] MEDS ORDERED: INSULIN GLARGINE,HUM.REC.ANLOG 1,000 UNIT/10 ML VIAL SUBCUT SCH (22:00)
[2020-05-02 23:16] LABS: ANION GAP 11 (5-19); BLOOD UREA NITROGEN 23 mg/dL (7-20); CALCIUM 9.2 mg/dL (8.4-10.2); CARBON DIOXIDE 27 mmol/L (22-30); CHLORIDE 99 mmol/L (98-107); GLUCOSE 253 mg/dL (75-110)
[2020-05-02 23:26] LABS: POTASSIUM 4.2 mmol/L (3.6-5.0)
[2020-05-03] MEDS: INSULIN LISPRO 100 UNIT/ML 3 ML VIAL SUBCUT SCH (01:34)
[2020-05-03] MEDS ORDERED: INSULIN GLARGINE,HUM.REC.ANLOG 1,000 UNIT/10 ML VIAL SUBCUT SCH (10:00)
--- NOTE | 2020-05-11 07:31 | Left Against Medical Advice ---
Against Medical Advice Admission Date/Time: 05/02/20 16:34 Primary Care Provider: Date of Patient Emigration: 05/02/20 - Diagnosis: (1) Esophageal stricture Is this a current diagnosis for this admission?: Yes (2) Hyperglycemia due to type 1 diabetes mellitus Is this a current diagnosis for this admission?: Yes (3) Chronic kidney disease Is this a current diagnosis for this admission?: Yes (4) Hyperkalemia Is this a current diagnosis for this admission?: Yes (5) Hypertension Is this a current diagnosis for this admission?: Yes (6) Tobacco dependency Is this a current diagnosis for this admission?: Yes - Summary: Summary: Please see Admission and Progress Notes as well. LENA SCHULZ is a 34 M, who LEFT AGAINST MEDICAL ADVICE. The Patient was admitted on 05/02/20 16:34.
== END 2020-05-03 00:10 | disposition left against medical advice (07) | DRG 392 ==
LOC: ER 10:53 → EH 16:34 → 3W 19:31
PROVIDERS: ADMIT Internal Medicine; ATTEND Internal Medicine
DX: K22.2 Esophageal obstruction (principal); E10.65 Type 1 diabetes mellitus with hyperglycemia; F25.0 Schizoaffective disorder, bipolar type; E10.22 Type 1 diabetes mellitus with diabetic chronic kidney disease; I12.9 Hypertensive chronic kidney disease with stage 1 through stage 4 chronic kidney disease, or unspecified chronic kidney disease; N18.9 Chronic kidney disease, unspecified; E87.5 Hyperkalemia; E11.22 Type 2 diabetes mellitus with diabetic chronic kidney disease; F17.210 Nicotine dependence, cigarettes, uncomplicated; E86.0 Dehydration; I25.2 Old myocardial infarction; Z79.899 Other long term (current) drug therapy; Z83.3 Family history of diabetes mellitus; Z82.49 Family history of ischemic heart disease and other diseases of the circulatory system
CPT/HCPCS: 36415; 71046; 80053; 81001; 82550; 82962; 84484; 85025; 93005; 93010; 96360; 96361; 99285; J1815; J7030

== ENCOUNTER 2020-06-07 15:29 | Emergency (ER) | payer MEDICAID ==
[2020-06-07] MEDS ORDERED: ONDANSETRON HCL INJ/PF 4 MG/2 ML SDV IV ONE (17:03)
[2020-06-07] MEDS ORDERED: MAG HYDROX/AL HYDROX/SIMETH SUSP 30 ML UDCUP PO ONE (17:03)
[2020-06-07] MEDS ORDERED: NORMAL SALINE 1000 ML 1,000 ML IV ONE (17:03)
[2020-06-07] MEDS ORDERED: LIDOCAINE 2% VISCOUS SOLN 15 ML UDCUP PO ONE (17:04)
[2020-06-07] MEDS ORDERED: METOCLOPRAMIDE HCL ORAL SOLN 10 MG/10 ML UDCUP PO ONE (17:04)
--- NOTE | 2020-06-07 17:15 | ER Document Report ---
ED Medical Screen (RME) - General Chief Complaint: Headache Stated Complaint: HEADACHE,NAUSEA Time Seen by Provider: 06/07/20 16:56 TRAVEL OUTSIDE OF THE [place] IN LAST 30 DAYS: No - HPI Notes: 06/07/20 17:08 34 yr old male history of type 1 diabetes, esophageal stricture presents to the emergency room with a headache for the last day. Reports worst headache of his life with nausea, reports photo phobia. Reports right side of his head behind his eye, has been getting progressively worse. Denies any polydipsia polyuria polyphagia. Patient reports he feels weak, he took his blood sugar this morning it was 216. reports headache is 5/5, throbbing sharp and constant. Denies any chest pain, shortness of breath, vomiting, diarrhea. Does report he is generalized abdominal pain. It appears that patient does have from reviewing the notes severe esophageal stricture, he did leave the hospital at the end of April against medical advise. Patient states he did eat dinner and breakfast this morning, unsure how much she has been drinking. Patient did not follow-up with his esophageal stricture. Denies any fevers or chills. I have greeted and performed a rapid initial assessment of this patient. A comprehensive ED assessment and evaluation of the patient, analysis of test results and completion of the medical decision making process will be conducted by additional ED providers. PHYSICAL EXAMINATION: GENERAL: Acutely ill, well-nourished and in mild distress HEAD: Atraumatic, normocephalic. EYES: Pupils equal round extraocular movements intact, conjunctiva are normal. Sclera injected bilaterally. Reports photophobia NECK: Normal range of motion CV: tachycardia LUNGS: No respiratory distress abd: generalized abd pain. no cva tenderness bilaterally Musculoskeletal: Normal range of motion NEUROLOGICAL: Normal speech, normal gait. SKIN: Warm, Dry, normal turgor, no rashes or lesions noted. 06/07/20 17:15 - Related Data Allergies/Adverse Reactions: No Known Allergies Allergy (Verified 05/02/20 11:50) Past Medical History - Social History Frequency of alcohol use: None Drug Abuse: None Family history: Reviewed & Not Pertinent - Past Medical History Cardiac Medical History: Reports: Hx Heart Attack - May 2017., Hx Hypertension Denies: Hx Congestive Heart Failure, Hx DVT, Hx Hypercholesterolemia, Hx Pulmonary Embolism Pulmonary Medical History: Reports: Hx Asthma - as child Denies: Hx COPD, Hx Sleep Apnea Neurological Medical History: Reports: Hx Migraine. Denies: Hx Seizures Endocrine Medical History: Reports: Hx Diabetes Mellitus Type 1. Denies: Hx Diabetes Mellitus Type 2, Hx Hyperthyroidism, Hx Hypothyroidism Renal/ Medical History: Denies: Hx Peritoneal Dialysis GI Medical History: Denies: Hx Cirrhosis, Hx Gastroesophageal Reflux Disease, Hx Hepatitis Musculoskeltal Medical History: Denies Hx Arthritis Psychiatric Medical History: Reports: Hx Anxiety, Hx Bipolar Disorder, Hx Depression, Hx Schizoaffective Disorder, Hx Schizophrenia Infectious Medical History: Denies: Hx C-Diff, Hx Hepatitis, Hx MRSA Past Surgical History: Reports: Hx Appendectomy, Hx Oral Surgery - wisdom teeth, Other - [place] teeth extraction - Immunizations Hx Diphtheria, Pertussis, Tetanus Vaccination: Yes Physical Exam - Vital signs Vitals: Temp Pulse Resp BP Pulse Ox 98.7 F 123 H 20 151/115 H 100 06/07/20 16:14 06/07/20 16:14 06/07/20 16:14 06/07/20 16:14 06/07/20 16:14 Course - Vital Signs Vital signs: Temp Pulse Resp BP Pulse Ox 98.7 F 123 H 20 151/115 H 100 06/07/20 16:14 06/07/20 16:14 06/07/20 16:14 06/07/20 16:14 06/07/20 16:14
[2020-06-07] MEDS ORDERED: ONDANSETRON 4 MG TAB.RAPDIS PO ONE (17:30)
--- NOTE | 2020-06-07 17:37 | RADIOLOGY REPORT (SQ) ---
EXAM DESCRIPTION: ACUTE ABDOMEN SERIES IMAGES COMPLETED DATE/TIME: 06/07/2020 5:21 pm REASON FOR STUDY: generalized abd pain, nausea x1 day COMPARISON: None. NUMBER OF VIEWS: Three views. TECHNIQUE: Frontal chest, supine abdomen and upright/decubitus abdomen radiographic images acquired. LIMITATIONS: None. FINDINGS: CHEST: Lungs clear of infiltrates. FREE AIR: None. No abnormal gas collections. BOWEL GAS PATTERN: Nonobstructive pattern. No dilated loops or air fluid levels. There is a large am ount of stool throughout the colon. CALCIFICATIONS: No suspicious calcifications. HARDWARE: None in the abdomen. SOFT TISSUES: No gross mass or suggestion of organomegaly. BONES: No acute fracture. No worrisome bone lesions. OTHER: No other significant finding. IMPRESSION: NO RADIOGRAPHIC EVIDENCE FOR ACUTE ABDOMINAL DISEASE. LARGE AMOUNT OF STOOL THROUGHOUT THE COLON, POSSIBLE CONSTIPATION. TECHNICAL DOCUMENTATION: JOB ID: [id number] 2010 [employer]- All Rights Reserved Reading location - IP/workstation name: [email or web address]
--- NOTE | 2020-06-07 17:45 | RADIOLOGY REPORT (SQ) ---
EXAM DESCRIPTION: CT HEAD WITHOUT IMAGES COMPLETED DATE/TIME: 06/07/2020 5:29 pm REASON FOR STUDY: headache, worst ZABALA of life COMPARISON: 2014 TECHNIQUE: Axial images acquired through the brain without intravenous contrast. Images reviewed wi th bone, brain and subdural windows. Additional sagittal and coronal reconstructions were generated. Images stored on PACS. All CT scanners at this facility use dose modulation, iterative reconstruction, and/or weight based d osing when appropriate to reduce radiation dose to as low as reasonably achievable (ALARA). [facility]: Dose Right [facility]: CareDose [facility]: Dose Right [facility]: Teradose 4D [facility]: Smart Matrix Electronic Measuring RADIATION DOSE: CT Rad equipment meets quality standard of care and radiation dose reduction techniq ues were employed. CTDIvol: 53.2 mGy. DLP: 1017 mGy-cm. mGy. LIMITATIONS: None. FINDINGS: VENTRICLES: Normal size and contour. CEREBRUM: No masses. No hemorrhage. No midline shift. There is loss of rodriguez/ white differentiation in the right frontal lobe. See image 20 series 2. CEREBELLUM: No masses. No hemorrhage. No alteration of density. No evidence for acute infarction. EXTRAAXIAL SPACES: No fluid collections. No masses. ORBITS AND GLOBE: No intra- or extraconal masses. Normal contour of globe without masses. CALVARIUM: No fracture. PARANASAL SINUSES: No fluid or mucosal thickening. SOFT TISSUES: No mass or hematoma. OTHER: No other significant finding. IMPRESSION: There is loss of rodriguez/ white differentiation in the right frontal lobe as described. Ca nnot exclude an acute/ subacute infarction. There is no hemorrhage. EVIDENCE OF ACUTE STROKE: NO. COMMENT: Quality ID # [id number]: Final reports with documentation of one or more dose reduction techniques (e.g., Automated exposure control, adjustment of the mA and/or kV according to patient size, use of iterative reconstruction technique) TECHNICAL DOCUMENTATION: JOB ID: [id number] 2010 [employer]- All Rights Reserved Reading location - IP/workstation name: [email or web address]
[2020-06-07 18:34] LABS: APPEARANCE,URINE CLEAR; BILIRUBIN,URINE NEGATIVE (NEGATIVE); COLOR,URINE STRAW; GLUCOSE, URINE >=500 mg/dL (NEGATIVE); KETONES,URINE NEGATIVE (NEGATIVE); LEUKOCYTE ESTERASE,URINE NEGATIVE (NEGATIVE); NITRITE,URINE NEGATIVE (NEGATIVE); PROTEIN,URINE 100 mg/dL (NEGATIVE); URINE SPECIFIC GRAVITY 1.012; UROBILINOGEN,URINE NEGATIVE mg/dL (<2.0)
[2020-06-07 19:04] VITALS: BP 182/111
== END 2020-06-08 01:47 | disposition left against medical advice (07) ==
LOC: ER 15:29
DX: R51 Headache (principal); R11.0 Nausea; H53.149 Visual discomfort, unspecified; E10.9 Type 1 diabetes mellitus without complications
CPT/HCPCS: 99281; 82962; 81001; 74022; 70450; S0119; J3490 ×3

== ENCOUNTER 2020-06-08 18:57 | Inpatient (IN) | payer MEDICAID ==
[2020-06-08] MEDS ORDERED: NORMAL SALINE 1000 ML 1,000 ML IV ONE (20:29)
--- NOTE | 2020-06-08 21:07 | ER Document Report ---
ED General - General Chief Complaint: Difficulty Swallowing Stated Complaint: THROAT/STOMACH PROBLEM - DR REFERRED Time Seen by Provider: 06/08/20 20:33 TRAVEL OUTSIDE OF THE [place] IN LAST 30 DAYS: No - HPI Notes: Patient is a 34-year-old male who presents to the emergency department for evaluation of difficulty swallowing. The patient has a history of significant esophagitis with esophageal stricture. His last endoscopy was a few months ago. It was reported as having a "pinhole" opening, and it was recommended that he may need gastrostomy for nourishment. The patient states that over the last s everal days he is only been able to get a small amount of fluids and soft liquids down. He states he is only intermittently taking his insulin because of this. He denies any pain at this time. He states he is still urinating, but states he believes he only urinated one time today. He did have a bowel movement that he reports is normal. He states that he has not been taking his oral medications regularly, because he states he cannot get them down. He states he has lost approximately 20 pounds as a result of not being able to eat. - Related Data Allergies/Adverse Reactions: No Known Allergies Allergy (Verified 05/02/20 11:50) Home Medications: humalog, lantus, lisinopril, celexa, buspar, gabapentin, seroquel, carafate, protonix, trazadone, remeron, Past Medical History - General Information source: Patient - Social History Smoking Status: Current Every Day Smoker Family History: Reviewed & Not Pertinent, DM, Hypertension - Past Medical History Cardiac Medical History: Reports: Hx Heart Attack - May 2017., Hx Hypertension Denies: Hx Congestive Heart Failure, Hx DVT, Hx Hypercholesterolemia, Hx Pulmonary Embolism Pulmonary Medical History: Reports: Hx Asthma - as child Denies: Hx COPD, Hx Sleep Apnea Neurological Medical History: Reports: Hx Migraine. Denies: Hx Seizures Endocrine Medical History: Reports: Hx Diabetes Mellitus Type 1. Denies: Hx Diabetes Mellitus Type 2, Hx Hyperthyroidism, Hx Hypothyroidism Renal/ Medical History: Denies: Hx Peritoneal Dialysis GI Medical History: Denies: Hx Cirrhosis, Hx Gastroesophageal Reflux Disease, Hx Hepatitis Musculoskeletal Medical History: Denies Hx Arthritis Psychiatric Medical History: Reports: Hx Anxiety, Hx Bipolar Disorder, Hx Depression, Hx Schizoaffective Disorder, Hx Schizophrenia Infectious Medical History: Denies: Hx C-Diff, Hx Hepatitis, Hx MRSA Past Surgical History: Reports: Hx Appendectomy, Hx Oral Surgery - wisdom teeth, Other - [place] teeth extraction - Immunizations Hx Diphtheria, Pertussis, Tetanus Vaccination: Yes Hx Pneumococcal Vaccination: 09/16/00 Review of Systems - Review of Systems Constitutional: Weakness, Weight loss EENT: No symptoms reported Cardiovascular: No symptoms reported Respiratory: No symptoms reported Gastrointestinal: See HPI Genitourinary: See HPI Musculoskeletal: No symptoms reported Skin: No symptoms reported Neurological/Psychological: No symptoms reported Physical Exam - Vital signs Vitals: Temp Pulse Resp BP Pulse Ox 99.2 F 123 H 17 132/101 H 94 06/08/20 19:08 06/08/20 19:08 06/08/20 19:08 06/08/20 19:08 06/08/20 19:08 - Notes Notes: Vital signs reviewed, please refer to chart. Head is normocephalic, atraumatic. Pupils equal round, reactive to light. Neck is supple without meningismus. Heart is regular rate and rhythm. Lungs are clear to auscultation bilaterally. Abdomen is soft, nontender, normoactive bowel sounds throughout. Extremities without cyanosis, clubbing. Posterior calves are nontender. Peripheral pulses are equal. Skin is warm and dry. Patient is awake, alert, neurological exam is nonfocal. Course - Re-evaluation Re-evalutation: 06/08/20 21:06 Patient presents to the emergency department for evaluation. He states he was advised by his mail weigher, to the hospital, be admitted for possible gastrostomy if his condition has worsened. I did speak with Dr. Delgadillo. He states that the patient is historically noncompliant. He states that he will not take his medication enough for his esophagitis to heal significantly, allowing them to perform any sort of esophageal dilation. He recommended that he come to the emergency department for further evaluation. Laboratory investigations and IV fluids have been ordered. Patient is currently stable, we will continue to monitor. 06/09/20 00:12 Despite being told to remain n.p.o., the patient took some crackers and peanut butter, immediately regurgitated them. He was found to be hypoglycemic, nursing did administer his juice, which she was able to eventually tolerate. Recheck is pending at this time. Otherwise, I spoke with hospitalist, he will admit the faby haider for further care. - Vital Signs Vital signs: Temp Pulse Resp BP Pulse Ox 99.2 F 123 H 17 132/101 H 94 06/08/20 19:08 06/08/20 19:08 06/08/20 19:08 06/08/20 19:08 06/08/20 19:08 - Laboratory Result Diagrams: 06/08/20 21:16 06/08/20 21:59 Laboratory results interpreted by me: 06/08/20 06/08/20 06/08/20 21:16 21:59 22:19 RDW 15.7 H Creatinine 1.88 H Est GFR ( Amer) 50 L Est GFR (MDRD) Non-Af 41 L Glucose 70 L POC Glucose 51 L Discharge - Discharge Clinical Impression: Hypoglycemia, History of esophageal stricture, Noncompliance with medication regimen Dysphagia Qualifiers: Dysphagia type: esophageal phase Qualified Code(s): R13.10 - Dysphagia, unspecified Condition: Stable Disposition: ADMITTED INPATIENT Admitting Provider: Raphael (Hospitalist) Unit Admitted: Medical Floor
[2020-06-08 21:32] LABS: ABSOLUTE BASOPHILS # (AUTO) 0.1 10^3/uL (0.0-0.2); ABSOLUTE EOSINOPHILS # (AUTO) 0.1 10^3/uL (0.0-0.6); ABSOLUTE LYMPHOCYTES (AUTO) 2.4 10^3/uL (0.5-4.7); ABSOLUTE MONOCYTES (AUTO) 0.5 10^3/uL (0.1-1.4); ABSOLUTE NEUT (AUTO) 7.1 10^3/uL (1.7-8.2); BASOPHILS % (AUTO) 0.6 % (0-2); EOSINOPHILS % (AUTO) 0.8 % (0-6); HEMOGLOBIN 14.2 g/dL (13.5-17.0); LYMPHOCYTES % (AUTO) 23.6 % (13-45); MEAN CORPUSCULAR HEMOGLOBIN 27.1 pg (27.0-33.4); MEAN CORPUSCULAR HGB CONC 33.1 g/dL (32.0-36.0); MEAN CORPUSCULAR VOLUME 82 fl (80-97); MONOCYTES % (AUTO) 5.2 % (3-13); PLATELET COUNT 417 10^3/uL (150-450); RED BLOOD COUNT 5.24 10^6/uL (4.35-5.55); RED CELL DISTRIBUTION WIDTH 15.7 % (11.5-14.0); SEGMENTED NEUTROPHILS % (AUTO) 69.8 % (42-78); TOTAL CELLS COUNTED % (AUTO) 100 %; WHITE BLOOD COUNT 10.2 10^3/uL (4.0-10.5)
[2020-06-08 22:21] LABS: ALBUMIN 3.7 g/dL (3.5-5.0); ALKALINE PHOSPHATASE 85 U/L (38-126); ANION GAP 8 (5-19); ASPARTATE AMINO TRANSFERASE 17 U/L (17-59); BILIRUBIN,DIRECT 0.4 mg/dL (0.0-0.4); BILIRUBIN,TOTAL 0.4 mg/dL (0.2-1.3); BLOOD UREA NITROGEN 18 mg/dL (7-20); CALCIUM 9.2 mg/dL (8.4-10.2); CARBON DIOXIDE 28 mmol/L (22-30); CHLORIDE 105 mmol/L (98-107); GLUCOSE 70 mg/dL (75-110); POTASSIUM 4.3 mmol/L (3.6-5.0)
[2020-06-08] MEDS ORDERED: PANTOPRAZOLE SODIUM 40 MG VIAL IV ONE (23:30)
[2020-06-09] MEDS ORDERED: HYDRALAZINE HCL INJ/PF 20 MG/1 ML SDV IV ONE (01:24)
[2020-06-09] MEDS ORDERED: PROMETHAZINE HCL INJ 25 MG/1 ML VIAL IV PRN (01:25)
[2020-06-09] MEDS ORDERED: MAGNESIUM HYDROXIDE SUSP 30 ML UDCUP PO PRN (01:25)
[2020-06-09] MEDS ORDERED: IPRATROPIUM/ALBUTEROL 0.5-2.5 MG/3 ML AMPUL NEB PRN (01:25)
[2020-06-09] MEDS ORDERED: NORMAL SALINE 1000 ML 1,000 ML IV PRN (01:25)
[2020-06-09] MEDS ORDERED: ONDANSETRON HCL INJ/PF 4 MG/2 ML SDV IV PRN (01:25)
[2020-06-09] MEDS ORDERED: TEMAZEPAM 7.5 MG CAPSULE PO PRN (01:25)
[2020-06-09] MEDS ORDERED: DEXTROSE 40% GEL 15 GM TUBE PO PRN ×2 (01:36)
[2020-06-09] MEDS ORDERED: GLUCAGON,HUMAN RECOMB 1 MG INJ IM PRN (01:36)
[2020-06-09] MEDS ORDERED: DEXTROSE 50%-WATER 25 GM/50 ML DISP.SYRIN IV PRN ×2 (01:36)
--- NOTE | 2020-06-09 02:14 | PDOC H&P ---
History of Present Illness Admission Date/PCP: 06/09/20 00:29 History of Present Illness: LENA SCHULZ is a 34 year old male past medical history of gastroesophageal reflux disease, diabetes type 1 with multiple DKA's due to noncompliance unfortunately caused dysphagia due to esophageal stricture as a result excessive nausea vomiting due to multiple DKA's, hypertension, CKD, to bacco abuse, depression, anxiety, restless leg syndrome. Patient presenting to ED with worsening dysphagia for solids, patient is stating that he is able to tolerate liquids and soft diet however is unable to swallow solid food, patient has known history of esophageal stricture and and is status post esophageal dilation in the past, currently followed by Dr. Delgadillo, was supposed to get another esophageal dilation but unfortunately on outpatient EGD patient was noted to have extensive esophageal ulcers and was not a candidate due to esophageal ulcers, patient was sent by his coin machine assembler Dr. Delgadillo for evaluation of PEG tube placement. Patient is still noncompliant with her oral medication, stating that he cannot swallow his pills, when asked that he could crush his pills he says he did not think of that. Patient has low p.o. intake due to progressive dysphagia however denies any naus ea, vomiting, diarrhea, constipation, shortness of breath, fever, chills, abdominal pain or any urinary symptoms. Past Medical History Cardiac Medical History: Reports: Myocardial Infarction - May 2017., Hypertension Denies: Congestive Heart Failure, DVT, Hyperlipidema, Pulmonary Embolism Pulmonary Medical History: Reports: Asthma - as child Denies: Chronic Obstructive Pulmonary Disease (COPD), Sleep Apnea Neurological Medical History: Reports: Migraine Denies: Seizures Endocrine Medical History: Reports: Diabetes Mellitus Type 1 Denies: Diabetes Mellitus Type 2, Hyperthyroidism, Hypothyroidism GI Medical History: Denies: Cirrhosis, Gastroesophageal Reflux Disease, Hepatitis Musculoskeltal Medical History: Denies: Arthritis Psychiatric Medical History: Reports: Bipolar Disorder, Depression, Schizoaffective Disorder Infectious Medical History: Denies: Clostridium Difficile, Methicillin-Resistant Staph Aureus Past Surgical History Past Surgical History: Reports: Appendectomy, Other - [place] teeth extraction Social History Smoking Status: Current Every Day Smoker Frequency of Alcohol Use: None Hx Recreational Drug Use: No Drugs: None Hx Prescription Drug Abuse: No Family History Family History: Reviewed & Not Pertinent, DM, Hypertension Parental Family History Reviewed: Yes Children Family History Reviewed: Yes Sibling(s) Family History Reviewed.: Yes Medication/Allergy Home Medications: Quetiapine Fumarate [Seroquel] 800 mg PO QHS 08/21/19 Trazodone HCl [Desyrel] 100 mg PO QHS 08/21/19 Buspirone HCl 5 mg PO DAILY 02/25/20 Citalopram Hydrobromide [Celexa] 40 mg PO DAILY 02/26/20 Hydroxyzine Pamoate [Vistaril] 25 mg PO TIDP PRN 02/26/20 Mirtazapine [Remeron 15 mg Tablet] 45 mg PO QHS 02/26/20 Prazosin HCl 1 mg PO QHS 02/26/20 Ropinirole HCl [Requip] 0.5 mg PO QHS 02/26/20 Amlodipine Besylate [Norvasc 10 mg Tablet] 10 mg PO DAILY #30 tablet 03/04/20 Insulin Glargine,Hum.rec.anlog [Lantus Insulin 100 Unit/1 ml 10 ml] 35 unit SUBCUT QHS #10 ml 03/04/20 Insulin Lispro [Humalog Insulin (Lispro) 100 unit/mL] 15 units SUBCUT AC #10 ml 03/04/20 Lisinopril 20 mg PO Q12 30 Days 03/04/20 Metoclopramide HCl [Reglan 10 mg Tablet] 1 tab PO ASDIR PRN #20 tablet 03/04/20 Allergies/Adverse Reactions: No Known Allergies Allergy (Verified 05/02/20 11:50) Review of Systems Review of Systems: as per hpi Physical Exam Vital Signs: Temp Pulse Resp BP Pulse Ox 99.1 F 95 20 165/109 H 98 06/09/20 00:36 06/09/20 00:36 06/09/20 00:36 06/09/20 00:36 06/09/20 00:36 Intake & Output 06/07/20 06/08/20 06/09/20 06:59 06:59 06:59 Intake Total 1000 Balance 1000 Weight 72.9 kg General appearance: PRESENT: no acute distress, well-developed, well-nourished Head exam: PRESENT: atraumatic, normocephalic Respiratory exam: PRESENT: clear to auscultation juan ramon. ABSENT: rales, rhonchi, wheezes Cardiovascular exam: PRESENT: RRR. ABSENT: diastolic murmur, rubs, systolic murmur GI/Abdominal exam: PRESENT: normal bowel sounds, soft. ABSENT: distended, guarding, mass, organolmegaly, rebound, tenderness Extremities exam: PRESENT: full ROM. ABSENT: calf tenderness, clubbing, pedal edema Neurological exam: PRESENT: alert, awake, oriented to person, oriented to place, oriented to time, oriented to situation, CN II-XII grossly intact. ABSENT: motor sensory deficit Results Laboratory Results: 06/08/20 21:16 06/08/20 21:59 06/08/20 06/08/20 06/08/20 21:16 21:16 21:59 WBC 10.2 RBC 5.24 Hgb 14.2 Hct 43.0 MCV 82 MCH 27.1 MCHC 33.1 RDW 15.7 H Plt Count 417 Seg Neutrophils % 69.8 Sodium Cancelled 141.0 Potassium Cancelled 4.3 Chloride Cancelled 105 Carbon Dioxide Cancelled 28 Anion Gap Cancelled 8 BUN Cancelled 18 Creatinine Cancelled 1.88 H Est GFR ( Amer) Cancelled 50 L Est GFR (Non-Af Amer) Cancelled Glucose Cancelled 70 L Calcium Cancelled 9.2 Total Bilirubin Cancelled 0.4 AST Cancelled 17 Alkaline Phosphatase Cancelled 85 Total Protein Cancelled 7.0 Albumin Cancelled 3.7 Assessment and Plan - Diagnosis (1) Dysphagia Qualifiers: Dysphagia type: esophageal phase Qualified Code(s): R13.10 - Dysphagia, unspecified Is this a current diagnosis for this admission?: Yes Plan: Dysphagia for solids. Tolerating liquid. History of distal esophageal stenosis and stricture status post esophageal di lation in the past. Has been followed by Dr. Delgadillo, recently had upper GI endoscopy was noted to hav e multiple esophageal ulcers. Not a candidate for esophageal dilation or stent placement at this time due to active esophageal ulcers. Recommendation is for PEG tube placement while patient is being treated for esophageal ulcers. Unfortunately patient has history of noncompliance with his medication. Patient was strongly encouraged to adhere with his medication regimen. Surgery consulted, follow-up recommendation. (2) History of esophageal stricture Is this a current diagnosis for this admission?: Yes Plan: As per #1. (3) Hypoglycemia Is this a current diagnosis for this admission?: Yes Plan: Likely due to low p.o. intake. History of diabetes type 1. Admit to floor, hypoglycemia protocol. Encourage p.o. intake. (4) Noncompliance with medication regimen Is this a current diagnosis for this admission?: Yes Plan: Patient counseled on importance of medication compliance. Finds understanding. (5) Chronic kidney disease Qualifiers: Chronic kidney disease stage: stage 4 (severe) Qualified Code(s): N18.4 - Chronic kidney disease, stage 4 (severe) Is this a current diagnosis for this admission?: Yes Plan: Most likely due to complications of diabetes and untreated hypertension complicated by recent p.o. tolerant due to worsening dysphagia. Electrolytes WNL, euvolemic, monitor electrolytes and volume status, replace electrolytes as needed, avoid nephrotoxic meds. Consult nephrology if indicated. (6) DKA, type 1 Qualifiers: Diabetes mellitus complication detail: without coma Qualified Code(s): E10.10 - Type 1 diabetes mellitus with ketoacidosis without coma Is this a current diagnosis for this admission?: Yes Plan: History of noncompliance. Resume home meds. Diabetic diet. Sliding scale insulin, basal insulin, pre- meal insulin, adjust meds as needed. Hypoglycemic protocol Accu-Chek. (7) Hypertension Qualifiers: Hypertension type: unspecified Qualified Code(s): I10 - Essential (primary) hypertension Is this a current diagnosis for this admission?: Yes Plan: Euvolemic. Hypertensive. Resume home meds. Adjust meds as needed. Outpatient PCP follow-up. (8) CAD (coronary artery disease) Qualifiers: Coronary Disease-Associated Artery/Lesion type: unspecified vessel or lesion type Associated angina: with unspecified angina Is this a current diagnosis for this admission?: Yes Plan: As per patient he recently had a myocardial infarction, was transferred to tertiary center where he received heart cath but does not know if he received stent. Denies any anginal symptoms on this admission. Continue home meds. Outpatient PCP and cardiology follow-up. (9) GERD (gastroesophageal reflux disease) Qualifiers: Esophagitis presence: with esophagitis Qualified Code(s): K21.0 - Gastro-e sophageal reflux disease with esophagitis Is this a current diagnosis for this admission?: Yes Plan: Continue PPIs. Plan as per above. - Time Time Spent with patient: 35 or more minutes Smoking Cessation Education: 3 to 10 minutes Medications reviewed and adjusted accordingly: Yes Anticipated Discharge Disposition: Home, Self Care Anticipated Discharge Timeframe: within 72 hours
[2020-06-09] MEDS: HEPARIN SOD (PORCINE) 5,000 UNIT/ML 1 ML VIAL SUBCUT SCH ×3 (06:10→21:37)
[2020-06-09] MEDS ORDERED: AMLODIPINE BESYLATE 5 MG TABLET PO SCH (10:00)
[2020-06-09] MEDS: NICOTINE 14 MG/24 HR PATCH.TD24 TD SCH (10:09)
[2020-06-09] MEDS: PANTOPRAZOLE SODIUM 40 MG VIAL IV SCH ×2 (10:09→21:48)
[2020-06-09] MEDS: AMLODIPINE BESYLATE 10 MG TABLET PO SCH (10:10)
[2020-06-09] MEDS: CITALOPRAM HYDROBROMIDE 20 MG TABLET PO SCH (10:10)
[2020-06-09] MEDS: LISINOPRIL 10 MG TABLET PO SCH ×2 (10:10→21:49)
[2020-06-09] MEDS: INSULIN LISPRO 100 UNIT/ML 3 ML VIAL SUBCUT SCH ×4 (10:10→21:49)
[2020-06-09] MEDS: INSULIN REG, HUMAN 100 UNIT/ML 3 ML VIAL (PYX) SUBCUT SCH ×2 (10:10→13:28)
[2020-06-09] MEDS ORDERED: INSULIN NPH (ISOPHANE), HUMAN 100 UNIT/ML 3 ML SUBCUT ONE (11:30)
--- NOTE | 2020-06-09 12:33 | PDOC CONSULTATION ---
Consultation Consult Date: 06/09/20 Provider Consulted: JAZMIN RAIN Consult reason:: Evaluate for gastrostomy tube placement History of Present Illness Admission Date/PCP: 06/09/20 00:29 Patient complains of: Dysphagia History of Present Illness: LENA SCHULZ is a 34 year old male with diabetes with frequent episodes of diabetic ketoacidosis and frequent episodes of emesis and also history of gastroesophageal reflux disease with history of esophageal strictures requiring dilations in the past. Patient had been scheduled for another dilation but he was noted with such severe esophageal stricture that the endoscope could not be passed and he is now being admitted to the hospital for consideration for a gastrostomy tube placement. Patient has been experiencing dysphagia chronically for couple of years now and has worsened in the last months with poor nutritional intake with about 20 pound weight loss. Past Medical History Cardiac Medical History: Reports: Myocardial Infarction - May 2017., Hypertension Denies: Congestive Heart Failure, DVT, Hyperlipidema, Pulmonary Embolism Pulmonary Medical History: Reports: Asthma - as child Denies: Chronic Obstructive Pulmonary Disease (COPD), Sleep Apnea Neurological Medical History: Reports: Migraine Denies: Seizures Endocrine Medical History: Reports: Diabetes Mellitus Type 1 Denies: Diabetes Mellitus Type 2, Hyperthyroidism, Hypothyroidism GI Medical History: Denies: Cirrhosis, Gastroesophageal Reflux Disease, Hepatitis Musculoskeltal Medical History: Denies: Arthritis Psychiatric Medical History: Reports: Bipolar Disorder, Depression, Schizoaffective Disorder Infectious Medical History: Denies: Clostridium Difficile, Methicillin-Resistant Staph Aureus Past Surgical History Past Surgical History: Reports: Appendectomy, Other - [place] teeth extraction Social History Smoking Status: Current Every Day Smoker Frequency of Alcohol Use: None Hx Recreational Drug Use: No Drugs: None Hx Prescription Drug Abuse: No Family History Family History: Reviewed & Not Pertinent, DM, Hypertension Parental Family History Reviewed: No Children Family History Reviewed: No Sibling(s) Family History Reviewed.: No Medication/Allergy Home Medications: Quetiapine Fumarate [Seroquel] 800 mg PO QHS 08/21/19 Trazodone HCl [Desyrel] 100 mg PO QHS 08/21/19 Buspirone HCl 5 mg PO TID 02/25/20 Mirtazapine [Remeron 15 mg Tablet] 45 mg PO QHS 02/26/20 Insulin Glargine,Hum.rec.anlog [Lantus Insulin 100 Unit/1 ml 10 ml] 35 unit SUBCUT QHS #10 ml 03/04/20 Insulin Lispro [Humalog Insulin (Lispro) 100 unit/mL] 15 units SUBCUT AC #10 ml 03/04/20 Amlodipine Besylate [Norvasc 10 mg Tablet] 10 mg PO DAILY 06/09/20 Gabapentin [Neurontin] 400 mg PO TID 06/09/20 Lansoprazole [Prevacid 30 Mg Odt Tablet] 30 mg PO BID 06/09/20 Ondansetron HCl [Zofran 8 mg Tablet] 8 mg PO Q8HP PRN 06/09/20 Sucralfate [Carafate Susp 1 Gm/10 Ml Udcup] 1 gm PO QID 06/09/20 Allergies/Adverse Reactions: No Known Allergies Allergy (Verified 05/02/20 11:50) Physical Exam Vital Signs: Temp Pulse Resp BP Pulse Ox 98.1 F 101 H 16 146/94 H 99 06/09/20 09:31 06/09/20 09:31 06/09/20 09:31 06/09/20 09:31 06/09/20 09:31 Intake & Output 06/08/20 06/09/20 06/10/20 06:59 06:59 06:59 Intake Total 1000 Balance 1000 Weight 72.9 kg General appearance: PRESENT: no acute distress, cooperative Respiratory exam: PRESENT: clear to auscultation juan ramon Cardiovascular exam: PRESENT: RRR GI/Abdominal exam: PRESENT: other - Soft, Nondistended, non-tender to palpation. Neurological exam: PRESENT: alert, awake Psychiatric exam: PRESENT: appropriate affect Skin exam: PRESENT: warm Results Laboratory Results: 06/08/20 21:16 06/08/20 21:59 06/08/20 06/08/20 06/08/20 21:16 21:16 21:59 WBC 10.2 RBC 5.24 Hgb 14.2 Hct 43.0 MCV 82 MCH 27.1 MCHC 33.1 RDW 15.7 H Plt Count 417 Seg Neutrophils % 69.8 Sodium Cancelled 141.0 Potassium Cancelled 4.3 Chloride Cancelled 105 Carbon Dioxide Cancelled 28 Anion Gap Cancelled 8 BUN Cancelled 18 Creatinine Cancelled 1.88 H Est GFR ( Amer) Cancelled 50 L Est GFR (Non-Af Amer) Cancelled Glucose Cancelled 70 L Calcium Cancelled 9.2 Total Bilirubin Cancelled 0.4 AST Cancelled 17 Alkaline Phosphatase Cancelled 85 Total Protein Cancelled 7.0 Albumin Cancelled 3.7 Assessment & Plan - Diagnosis (1) Dysphagia Qualifiers: Dysphagia type: esophageal phase Qualified Code(s): R13.10 - Dysphagia, unspecified Is this a current diagnosis for this admission?: Yes Plan: With history of esophageal strictures. Etiology of strictures may be secondary to gastroesophageal reflux disease and frequent episodes of emesis with his poorly controlled diabetes. With the severity of his esophageal strictures, percutaneous endoscopic gastrostomy tube is not technically possible since endos cope cannot be passed beyond his strictures. The severity of esophageal stricture that may require an esophagectomy in the future has to be considered in determining course of action at this time. I have discussed this patient with who will evaluate the patient and determine best course of action.
[2020-06-09] MEDS ORDERED: INSULIN REG, HUMAN 100 UNIT/ML 3 ML VIAL (PYX) SUBCUT SCH (16:00)
[2020-06-09] MEDS ORDERED: QUETIAPINE FUMARATE 100 MG TABLET PO SCH (22:00)
[2020-06-09] MEDS ORDERED: TRAZODONE HCL 50 MG TABLET PO SCH (22:00)
[2020-06-09] MEDS ORDERED: MIRTAZAPINE 15 MG TABLET PO SCH (22:00)
[2020-06-09] MEDS ORDERED: INSULIN GLARGINE,HUM.REC.ANLOG 1,000 UNIT/10 ML VIAL SUBCUT SCH ×2 (22:00)
[2020-06-09] MEDS ORDERED: ROPINIROLE HCL 1 MG TABLET PO SCH (22:00)
[2020-06-10] MEDS: HEPARIN SOD (PORCINE) 5,000 UNIT/ML 1 ML VIAL SUBCUT SCH (05:14)
[2020-06-10 07:17] LABS: INTERNATIONAL RATION (INR) 0.89; PROTHROMBIN TIME 12.2 SEC (11.4-15.4)
[2020-06-10 07:18] LABS: PARTIAL THROMBOPLASTIN TIME 31.8 SEC (23.5-35.8)
[2020-06-10 07:33] LABS: ALBUMIN 3.5 g/dL (3.5-5.0); ALKALINE PHOSPHATASE 100 U/L (38-126); ANION GAP 9 (5-19); ASPARTATE AMINO TRANSFERASE 16 U/L (17-59); BILIRUBIN,DIRECT 0.3 mg/dL (0.0-0.4); BILIRUBIN,TOTAL 0.3 mg/dL (0.2-1.3); BLOOD UREA NITROGEN 20 mg/dL (7-20); CALCIUM 9.3 mg/dL (8.4-10.2); CARBON DIOXIDE 26 mmol/L (22-30); CHLORIDE 105 mmol/L (98-107); GLUCOSE 253 mg/dL (75-110); POTASSIUM 4.3 mmol/L (3.6-5.0); TOTAL PROTEIN 6.7 g/dL (6.3-8.2)
[2020-06-10 07:35] LABS: ABSOLUTE EOSINOPHILS # (AUTO) 0.1 10^3/uL (0.0-0.6); ABSOLUTE LYMPHOCYTES (AUTO) 1.9 10^3/uL (0.5-4.7); ABSOLUTE MONOCYTES (AUTO) 0.4 10^3/uL (0.1-1.4); ABSOLUTE NEUT (AUTO) 5.9 10^3/uL (1.7-8.2); BASOPHILS % (AUTO) 0.5 % (0-2); EOSINOPHILS % (AUTO) 1.4 % (0-6); LYMPHOCYTES % (AUTO) 22.5 % (13-45); MEAN CORPUSCULAR HEMOGLOBIN 27.2 pg (27.0-33.4); MEAN CORPUSCULAR HGB CONC 33.8 g/dL (32.0-36.0); MEAN CORPUSCULAR VOLUME 80 fl (80-97); MONOCYTES % (AUTO) 5.3 % (3-13); PLATELET COUNT 381 10^3/uL (150-450); RED CELL DISTRIBUTION WIDTH 15.4 % (11.5-14.0); SEGMENTED NEUTROPHILS % (AUTO) 70.3 % (42-78); TOTAL CELLS COUNTED % (AUTO) 100 %; WHITE BLOOD COUNT 8.3 10^3/uL (4.0-10.5)
[2020-06-10 07:58] LABS: HEMOGLOBIN 11.2 g/dL (13.5-17.0)
[2020-06-10] MEDS ORDERED: INSULIN REG, HUMAN 100 UNIT/ML 3 ML VIAL (PYX) SUBCUT SCH (08:00)
[2020-06-10] MEDS ORDERED: SUCRALFATE 1 GM TABLET PO SCH (10:00)
[2020-06-10] MEDS: AMLODIPINE BESYLATE 10 MG TABLET PO SCH (10:01)
[2020-06-10] MEDS: LISINOPRIL 10 MG TABLET PO SCH (10:02)
[2020-06-10] MEDS: CITALOPRAM HYDROBROMIDE 20 MG TABLET PO SCH (10:02)
[2020-06-10] MEDS: INSULIN LISPRO 100 UNIT/ML 3 ML VIAL SUBCUT SCH ×2 (10:03→12:23)
[2020-06-10] MEDS: PANTOPRAZOLE SODIUM 40 MG VIAL IV SCH (10:03)
[2020-06-10] MEDS: INSULIN REG, HUMAN 100 UNIT/ML 3 ML VIAL (PYX) SUBCUT SCH ×2 (10:03→12:26)
[2020-06-10 12:09] VITALS: BP 148/91
[2020-06-10] MEDS: NICOTINE 14 MG/24 HR PATCH.TD24 TD SCH (12:23)
[2020-06-10] MEDS ORDERED: BUSPIRONE HCL 10 MG TABLET PO SCH (14:00)
[2020-06-10] MEDS ORDERED: GABAPENTIN 400 MG CAPSULE PO SCH (14:00)
--- NOTE | 2020-06-10 15:22 | Left Against Medical Advice ---
Against Medical Advice Admission Date/Time: 06/09/20 00:29 Primary Care Provider: Date of Patient Emigration: 06/10/20 - Diagnosis: (1) Esophageal stricture Is this a current diagnosis for this admission?: Yes (2) Dysphagia Is this a current diagnosis for this admission?: Yes (3) Chronic kidney disease Is this a current diagnosis for this admission?: Yes (4) Diabetes mellitus Is this a current diagnosis for this admission?: Yes (5) GERD (gastroesophageal reflux disease) Is this a current diagnosis for this admission?: Yes (6) Hypoglycemia Is this a current diagnosis for this admission?: Yes (7) Hypertension Is this a current diagnosis for this admission?: Yes (8) Noncompliance with medication regimen Is this a current diagnosis for this admission?: Yes - Summary: Summary: Please see Admission and Progress Notes as well. LENA SCHULZ is a 34 M, who LEFT AGAINST MEDICAL ADVICE. The Patient was admitted on 06/09/20 00:29. According to admitting provider: History of Present Illness: LENA SCHULZ is a 34 year old male past medical history of gastr oesophageal reflux disease, diabetes type 1 with multiple DKA's due to noncompliance unfortunately caused dysphagia due to esophageal stricture as a result excessive nausea vomiting due to multiple DKA's, hypertension, CKD, tobacco abuse, depression, anxiety, restless leg syndrome. Patient presenting to ED with worsening dysphagia for solids, patient is stating that he is able to tolerate liquids and soft diet however is unable to swallow solid food, patient has known history of esophageal stricture and and is status post esophageal dilation in the past, currently followed by Dr. Delgadillo, was [place] pposed to get another esophageal dilation but unfortunately on outpatient EGD patient was noted to have extensive esophageal ulcers and was not a candidate due to esophageal ulcers, patient was sent by his assistant superintendent Dr. Delgadillo for evaluation of PEG tube placement. Patient is still noncompliant with her oral medication, stating that he cannot swallow his pills, when asked that he could crush his pills he says he did not think of that. Patient has low p.o. intake due to progressive dysphagia however denies any nausea, vomiting, diarrhea, constipation, shortness of breath, fever, chills, abdominal pain or any urinary symptoms. PE: NAD No JVD Respirations unlabored and symmetric. No tachypnea Abdomen is soft and nontender and nondistended Patient is ANO x3 Ambulatory Hospital course: Patient with history of severe esophageal stricture, GERD and diabetes, who presented once again for feeding tube placement surgery due to severe significant dysphagia from his severe esophageal strictures. Patient was here a while back for the same procedure and left AMA. Patient was never in DKA while here, was mildly hyperglycemic but was admitted to the medical service with surgical consultation. Kidney function remained stable. He has CKD stage III. Discussed with Dr. Poole who evaluated patient and stated that patient needs open approach with G-tube placement cannot be done endoscopically given patient's strictures and as such Dr. Alan planned for surgery on Saturday to place the feeding tube and recommends that patient will need an esophagectomy at some point. COVID screen was performed but result is pending at the time. This morning, discussed with patient who was eager to leave. I did contact Dr. Alan to see if surgery can be planned for outpatient and Dr. Alan recommended that pursuing this procedure outpatient will lead to significant delay and is best to be done inpatient. I discussed this with patient, urged him to stay and explained the risks of him signing out AMA but he still chose to sign out AMA. I do anticipate that given the severity of patient's esophageal stricture and his dysphagia, patient will be back sometime soon and will need ad [place] to Surgical service for surgery.
== END 2020-06-10 12:28 | disposition left against medical advice (07) | DRG 392 ==
LOC: ER 18:57 → EH 06-09 00:29 → 4W 06-09 02:00
PROVIDERS: ADMIT Internal Medicine; ATTEND Internal Medicine
DX: K22.2 Esophageal obstruction (principal); N18.4 Chronic kidney disease, stage 4 (severe); R13.10 Dysphagia, unspecified; E10.22 Type 1 diabetes mellitus with diabetic chronic kidney disease; I12.9 Hypertensive chronic kidney disease with stage 1 through stage 4 chronic kidney disease, or unspecified chronic kidney disease; F32.9 Major depressive disorder, single episode, unspecified; F41.9 Anxiety disorder, unspecified; G25.81 Restless legs syndrome; F25.9 Schizoaffective disorder, unspecified; F31.9 Bipolar disorder, unspecified; E10.649 Type 1 diabetes mellitus with hypoglycemia without coma; F17.210 Nicotine dependence, cigarettes, uncomplicated; K21.0 Gastro-esophageal reflux disease with esophagitis; I25.2 Old myocardial infarction; Z03.818 Encounter for observation for suspected exposure to other biological agents ruled out; Z91.14 Patient's other noncompliance with medication regimen; Z79.899 Other long term (current) drug therapy; Z79.4 Long term (current) use of insulin
CPT/HCPCS: 36415; 80053; 82962; 83735; 85025; 85610; 85730; 87635; 96360; 99285; C9113; C9803; J0360; J1815; J7030

== ENCOUNTER 2020-06-20 02:56 | Emergency (ER) | payer MEDICAID ==
[2020-06-20] MEDS ORDERED: PROCHLORPERAZINE EDISYLATE INJ 10 MG/2 ML VIAL IV ONE (04:58)
[2020-06-20] MEDS ORDERED: DIPHENHYDRAMINE HCL 50 MG/ML VIAL IV ONE (04:58)
--- NOTE | 2020-06-20 04:58 | ER Document Report ---
ED Headache - General Chief Complaint: Headache Stated Complaint: MIGRAINE Time Seen by Provider: 06/20/20 04:50 Mode of Arrival: Ambulatory Information source: Patient Notes: 34-year-old male patient presents emergency department chief complaint of headache. Patient reports history of migraines. He states his headache is been ongoing for the last 24 to 36 hours. He has not taken any medications for symptoms. He states the pain is severe but feels similar to his migraines. He denies any photophobia or phonophobia. He has not had fever or chills. He does report mild nausea. TRAVEL OUTSIDE OF THE [place] IN LAST 30 DAYS: No - Related Data Allergies/Adverse Reactions: No Known Allergies Allergy (Verified 05/02/20 11:50) Home Medications: Trazadone. Humalog. Gabapentin. Lantus. Lisinopril. Celexa. Seraquil. Carafate. Protonix. Buspar Past Medical History - General Information source: Patient - Social History Smoking Status: Current Every Day Smoker Chew tobacco use (# tins/day): No Frequency of alcohol use: None Drug Abuse: None Family History: Reviewed & Not Pertinent, DM, Hypertension - Past Medical History Cardiac Medical History: Reports: Hx Heart Attack - May 2017., Hx Hypertension Denies: Hx Congestive Heart Failure, Hx DVT, Hx Hypercholesterolemia, Hx Pulmonary Embolism Pulmonary Medical History: Reports: Hx Asthma - as child Denies: Hx COPD, Hx Sleep Apnea Neurological Medical History: Reports: Hx Migraine. Denies: Hx Seizures Endocrine Medical History: Reports: Hx Diabetes Mellitus Type 1. Denies: Hx Diabetes Mellitus Type 2, Hx Hyperthyroidism, Hx Hypothyroidism Renal/ Medical History: Denies: Hx Peritoneal Dialysis GI Medical History: Denies: Hx Cirrhosis, Hx Gastroesophageal Reflux Disease, Hx Hepatitis Musculoskeletal Medical History: Denies Hx Arthritis Psychiatric Medical History: Reports: Hx Anxiety, Hx Bipolar Disorder, Hx Depression, Hx Schizoaffective Disorder, Hx Schizophrenia Infectious Medical History: Denies: Hx C-Diff, Hx Hepatitis, Hx MRSA Past Surgical History: Reports: Hx Appendectomy, Hx Oral Surgery - wisdom teeth, Other - [place] teeth extraction - Immunizations Hx Diphtheria, Pertussis, Tetanus Vaccination: Yes Hx Pneumococcal Vaccination: 09/16/00 Review of Systems - Review of Systems Constitutional: No symptoms reported EENT: No symptoms reported Cardiovascular: No symptoms reported Respiratory: No symptoms reported Gastrointestinal: Nausea Genitourinary: No symptoms reported Male Genitourinary: No symptoms reported Musculoskeletal: No symptoms reported Skin: No symptoms reported Hematologic/Lymphatic: No symptoms reported Neurological/Psychological: Headaches Physical Exam - Vital signs Vitals: Temp Pulse Resp BP Pulse Ox 98.8 F 123 H 16 183/115 H 100 06/20/20 03:13 06/20/20 03:13 06/20/20 03:13 06/20/20 03:13 06/20/20 03:13 - Notes Notes: PHYSICAL EXAMINATION: GENERAL: Well-appearing, well-nourished and in no acute distress. HEAD: Atraumatic, normocephalic. EYES: Pupils equal round and reactive to light, extraocular movements intact, sclera anicteric, conjunctiva are normal. ENT: Nares patent, oropharynx clear without exudates. Moist mucous membranes. NECK: Normal range of motion, supple without lymphadenopathy LUNGS: Breath sounds clear to auscultation bilaterally and equal. No wheezes rales or rhonchi. HEART: Regular rate and rhythm without murmurs ABDOMEN: Soft, nontender, nondistended abdomen. No guarding, no rebound. No masses appreciated. Musculoskeletal: Normal range of motion, no pitting or edema. No cyanosis. NEUROLOGICAL: Cranial nerves grossly intact. Normal speech, normal gait. Normal sensory, motor exams PSYCH: Normal mood, normal affect. SKIN: Warm, Dry, normal turgor, no rashes or lesions noted. Course - Re-evaluation Re-evalutation: Patient was medicated with migraine cocktail and had relief from his headache. He declined IV fluids. He is ready for discharge home. - Vital Signs Vital signs: Temp Pulse Resp BP Pulse Ox 98.8 F 123 H 11 L 180/111 H 99 06/20/20 03:13 06/20/20 03:13 06/20/20 06:31 06/20/20 06:31 06/20/20 06:31 - Laboratory Result Diagrams: 06/20/20 03:35 06/20/20 03:35 Laboratory results interpreted by me: 06/20/20 06/20/20 03:35 03:35 RBC 4.19 L Hgb 11.5 L Hct 34.1 L RDW 14.7 H Sodium 134.5 L Creatinine 1.62 H Est GFR ( Amer) 59 L Est GFR (MDRD) Non-Af 49 L Glucose 301 H Total Protein 6.1 L Salicylates < 1.0 L Acetaminophen < 10 L Discharge - Discharge Clinical Impression: Migraine Qualifiers: Migraine type: unspecified Status migrainosus presence: without status migrainosus Intractability: not intractable Qualified Code(s): G43.909 - Migraine, unspecified, not intractable, without status migrainosus Headache Qualifiers: Headache type: unspecified Headache chronicity pattern: unspecified pattern Intractability: not intractable Qualified Code(s): R51.9 - Headache, unspecified Condition: Stable Disposition: HOME, SELF-CARE Additional Instructions: Please take all medications as prescribed by your primary care provider. Return to the emergency department for any new or life-threatening concerns.
[2020-06-20 05:25] LABS: ABSOLUTE BASOPHILS # (AUTO) 0.1 10^3/uL (0.0-0.2); ABSOLUTE EOSINOPHILS # (AUTO) 0.1 10^3/uL (0.0-0.6); ABSOLUTE LYMPHOCYTES (AUTO) 1.7 10^3/uL (0.5-4.7); ABSOLUTE MONOCYTES (AUTO) 0.8 10^3/uL (0.1-1.4); ABSOLUTE NEUT (AUTO) 5.8 10^3/uL (1.7-8.2); EOSINOPHILS % (AUTO) 1.5 % (0-6); HEMATOCRIT 34.1 % (37.9-51.0); HEMOGLOBIN 11.5 g/dL (13.5-17.0); LYMPHOCYTES % (AUTO) 20.4 % (13-45); MEAN CORPUSCULAR HEMOGLOBIN 27.5 pg (27.0-33.4); MEAN CORPUSCULAR HGB CONC 33.8 g/dL (32.0-36.0); MEAN CORPUSCULAR VOLUME 82 fl (80-97); PLATELET COUNT 316 10^3/uL (150-450); RED BLOOD COUNT 4.19 10^6/uL (4.35-5.55); RED CELL DISTRIBUTION WIDTH 14.7 % (11.5-14.0); SEGMENTED NEUTROPHILS % (AUTO) 68.1 % (42-78); TOTAL CELLS COUNTED % (AUTO) 100 %; WHITE BLOOD COUNT 8.6 10^3/uL (4.0-10.5)
[2020-06-20 05:35] LABS: ALBUMIN 3.5 g/dL (3.5-5.0); ALKALINE PHOSPHATASE 81 U/L (38-126); ANION GAP 11 (5-19); ASPARTATE AMINO TRANSFERASE 23 U/L (17-59); BILIRUBIN,DIRECT 0.3 mg/dL (0.0-0.4); BILIRUBIN,TOTAL 0.4 mg/dL (0.2-1.3); BLOOD UREA NITROGEN 10 mg/dL (7-20); CALCIUM 8.8 mg/dL (8.4-10.2); CARBON DIOXIDE 24 mmol/L (22-30); CHLORIDE 100 mmol/L (98-107); GLUCOSE 301 mg/dL (75-110); POTASSIUM 4.7 mmol/L (3.6-5.0); TOTAL PROTEIN 6.1 g/dL (6.3-8.2)
[2020-06-20 05:44] LABS: ACETAMINOPHEN < 10 ug/mL (10-30); SALICYLATE < 1.0 mg/dL (2.0-20.0)
[2020-06-20] MEDS ORDERED: NORMAL SALINE 1000 ML 1,000 ML IV ONE (06:15)
--- NOTE | 2020-06-20 06:38 | EKG REPORT ---
SEVERITY:- BORDERLINE ECG - SINUS RHYTHM BORDERLINE T WAVE ABNORMALITIES : Confirmed by: Brayden Silverio MD 20-Jun-2020 06:37:33
[2020-06-20 06:44] VITALS: BP 180/111
== END 2020-06-20 06:45 | disposition home or self-care (01) ==
LOC: ER 02:56
DX: G43.909 Migraine, unspecified, not intractable, without status migrainosus (principal); R11.0 Nausea; I10 Essential (primary) hypertension; I25.2 Old myocardial infarction; F17.200 Nicotine dependence, unspecified, uncomplicated; E10.9 Type 1 diabetes mellitus without complications; F41.9 Anxiety disorder, unspecified; F31.9 Bipolar disorder, unspecified; F20.9 Schizophrenia, unspecified; Z79.899 Other long term (current) drug therapy; Z79.4 Long term (current) use of insulin
CPT/HCPCS: 93005; 99284; 96374; 96375; 36415; 80307 ×2; 85025; 80053; 93010; J1200; J0780

== ENCOUNTER 2020-06-28 01:10 | Emergency (ER) | payer MEDICAID ==
[2020-06-28] MEDS ORDERED: MIDAZOLAM 2 MG/2 ML INJ IV ONE (01:47)
[2020-06-28] MEDS ORDERED: DILTIAZEM HCL INJ 25 MG/5 ML VIAL IV ONE (01:47)
[2020-06-28] MEDS ORDERED: ONDANSETRON HCL INJ/PF 4 MG/2 ML SDV IV ONE (01:50)
--- NOTE | 2020-06-28 01:54 | ER Document Report ---
ED Allergic Reaction - General Chief Complaint: Allergic Reaction Stated Complaint: POSSIBLE ALLERGIC REACTION Time Seen by Provider: 06/28/20 01:38 Mode of Arrival: Ambulatory Information source: Patient Notes: 34-year-old black male arrives by POV with tachycardia nausea and nasal congestion after snorting some Percocet and some cocaine around 2130 tonight. Patient has a history of polysubstance abuse CAD hypertension hyponatremia hyperkalemia IDDM DKA CAD migraines and he is well-known to this facility as being a "frequent flyer." TRAVEL OUTSIDE OF THE [place] IN LAST 30 DAYS: No - HPI Onset: This evening Onset/Duration: Sudden, Persistent, Worse Quality of pain: Achy Severity: Moderate Pain Level: 2 Identified cause: Possibly Medication Exposure: cocaine - Related Data Allergies/Adverse Reactions: No Known Allergies Allergy (Verified 05/02/20 11:50) Past Medical History - General Information source: Patient - Social History Smoking Status: Current Every Day Smoker Cigarette use (# per day): Yes Chew tobacco use (# tins/day): No Smoking Education Provided: Yes Frequency of alcohol use: Occasional Drug Abuse: Cocaine Lives with: Family Family History: Reviewed & Not Pertinent, DM, Hypertension Patient has suicidal ideation: No Patient has homicidal ideation: No - Past Medical History Cardiac Medical History: Reports: Hx Heart Attack - May 2017., Hx Hypertension Denies: Hx Congestive Heart Failure, Hx DVT, Hx Hypercholesterolemia, Hx Pulmonary Embolism Pulmonary Medical History: Reports: Hx Asthma - as child Denies: Hx COPD, Hx Sleep Apnea Neurological Medical History: Reports: Hx Migraine. Denies: Hx Seizures Endocrine Medical History: Reports: Hx Diabetes Mellitus Type 1. Denies: Hx Diabetes Mellitus Type 2, Hx Hyperthyroidism, Hx Hypothyroidism Renal/ Medical History: Denies: Hx Peritoneal Dialysis GI Medical History: Denies: Hx Cirrhosis, Hx Gastroesophageal Reflux Disease, Hx Hepatitis Musculoskeletal Medical History: Denies Hx Arthritis Psychiatric Medical History: Reports: Hx Anxiety, Hx Bipolar Disorder, Hx Depression, Hx Schizoaffective Disorder, Hx Schizophrenia Infectious Medical History: Denies: Hx C-Diff, Hx Hepatitis, Hx MRSA Past Surgical History: Reports: Hx Appendectomy, Hx Oral Surgery - wisdom teeth, Other - [place] teeth extraction - Immunizations Hx Diphtheria, Pertussis, Tetanus Vaccination: Yes Hx Pneumococcal Vaccination: 09/16/00 Review of Systems - Review of Systems Constitutional: See HPI, Weakness EENT: See HPI, Nose congestion Cardiovascular: See HPI, Chest pain, Palpitations, Heart racing, Dizziness, Lightheaded Respiratory: No symptoms reported Gastrointestinal: See HPI, Nausea Genitourinary: No symptoms reported Male Genitourinary: No symptoms reported Musculoskeletal: No symptoms reported Skin: No symptoms reported Hematologic/Lymphatic: No symptoms reported Neurological/Psychological: No symptoms reported Physical Exam - Vital signs Vitals: Resp Pulse Ox 13 99 06/28/20 01:33 06/28/20 01:33 Interpretation: Hypertensive, Tachycardic, Febrile - General General appearance: Appears well, Alert - HEENT Head: Normocephalic, Atraumatic Eyes: Normal Conjunctiva: Normal Pupils: PERRL Nasal: Clear rhinorrhea, Other - Mild edema of nasal mucosa - Respiratory Respiratory status: No respiratory distress Chest status: Nontender Breath sounds: Normal Chest palpation: Normal - Cardiovascular Rhythm: Tachycardia Heart sounds: Normal auscultation Murmur: No - Abdominal Inspection: Normal Distension: No distension Bowel sounds: Normal Tenderness: Nontender Organomegaly: No organomegaly - Rectal Prostate: Other - deferred - Genitourinary Scrotum: Other - deferred - Back Back: Normal, Nontender - Extremities General upper extremity: Normal inspection, Nontender, Normal color, Normal ROM, Normal temperature General lower extremity: Normal inspection, Nontender, Normal color, Normal ROM, Normal temperature, Normal weight bearing. No: All's sign - Neurological Neuro grossly intact: Yes Cognition: Normal Orientation: AAOx4 Mely Coma Scale Eye Opening: Spontaneous Mcdermitt Coma Scale Verbal: Oriented Mely Coma Scale Motor: Obeys Commands Mcdermitt Coma Scale Total: 15 Speech: Normal Motor strength normal: LUE, RUE, LLE, RLE Sensory: Normal - Psychological Associated symptoms: Normal affect, Normal mood - Skin Skin Temperature: Warm Skin Moisture: Dry Skin Color: Normal Course - Vital Signs Vital signs: Temp Pulse Resp BP Pulse Ox 99.5 F 135 H 15 179/110 H 100 06/28/20 01:39 06/28/20 01:39 06/28/20 03:09 06/28/20 03:09 06/28/20 03:09 - Laboratory Result Diagrams: 06/28/20 02:22 06/28/20 02:22 Laboratory results interpreted by me: 06/28/20 06/28/20 02:22 02:22 Hgb 12.9 L RDW 15.2 H Lymph % (Auto) 6.6 L Absolute Neuts (auto) 9.3 H Seg Neutrophils % 89.3 H Sodium 132.1 L Potassium 5.4 H Chloride 92 L Carbon Dioxide 31 H Creatinine 1.89 H Est GFR ( Amer) 49 L Est GFR (MDRD) Non-Af 41 L Glucose 391 H Direct Bilirubin 0.7 H - Diagnostic Test Radiology reviewed: Reports reviewed - wnl per radiology - EKG Interpretation by Me EKG shows normal: Sinus rhythm Rate: Tachycardia Rhythm: NSR - Heart rate at 135 with sinus tachycardia no T wave inversion; this was read by myself and I agree with the computer module. Critical Care Note - Critical Care Note Comments: Patient much improved by 0 415 as I reevaluated him. Patient says he feels better and his heart rate is down to 98 bpm blood pressure much improved as well. Discharge - Discharge Clinical Impression: Polysubstance abuse, Cocaine abuse, Tachycardia, Hyperkalemia Hypertension Qualifiers: Hypertension type: unspecified Qualified Code(s): I10 - Essential (primary) hypertension Condition: Stable Disposition: HOME, SELF-CARE Instructions: Palpitations (Irregular or Rapid Heartrate) ([facility]) Additional Instructions: Follow-up with personal doctor this week; return to ER symptoms persist or exacerbate. Take medicines as directed encourage fluids
[2020-06-28] MEDS: NORMAL SALINE 1000 ML 1,000 ML IV PRN ×2 (02:26→03:54)
[2020-06-28 02:45] LABS: ABSOLUTE BASOPHILS # (AUTO) 0.1 10^3/uL (0.0-0.2); ABSOLUTE LYMPHOCYTES (AUTO) 0.7 10^3/uL (0.5-4.7); ABSOLUTE MONOCYTES (AUTO) 0.3 10^3/uL (0.1-1.4); ABSOLUTE NEUT (AUTO) 9.3 10^3/uL (1.7-8.2); BASOPHILS % (AUTO) 0.8 % (0-2); EOSINOPHILS % (AUTO) 0.1 % (0-6); HEMATOCRIT 38.2 % (37.9-51.0); HEMOGLOBIN 12.9 g/dL (13.5-17.0); LYMPHOCYTES % (AUTO) 6.6 % (13-45); MEAN CORPUSCULAR HEMOGLOBIN 27.4 pg (27.0-33.4); MEAN CORPUSCULAR HGB CONC 33.8 g/dL (32.0-36.0); MEAN CORPUSCULAR VOLUME 81 fl (80-97); MONOCYTES % (AUTO) 3.2 % (3-13); PLATELET COUNT 272 10^3/uL (150-450); RED BLOOD COUNT 4.72 10^6/uL (4.35-5.55); RED CELL DISTRIBUTION WIDTH 15.2 % (11.5-14.0); SEGMENTED NEUTROPHILS % (AUTO) 89.3 % (42-78); TOTAL CELLS COUNTED % (AUTO) 100 %; WHITE BLOOD COUNT 10.5 10^3/uL (4.0-10.5)
[2020-06-28 02:57] LABS: ALBUMIN 3.8 g/dL (3.5-5.0); ALKALINE PHOSPHATASE 99 U/L (38-126); ANION GAP 9 (5-19); ASPARTATE AMINO TRANSFERASE 30 U/L (17-59); BILIRUBIN,DIRECT 0.7 mg/dL (0.0-0.4); BLOOD UREA NITROGEN 11 mg/dL (7-20); CALCIUM 9.1 mg/dL (8.4-10.2); CARBON DIOXIDE 31 mmol/L (22-30); CHLORIDE 92 mmol/L (98-107); CREATINE KINASE 96 U/L (55-170); GLUCOSE 391 mg/dL (75-110); POTASSIUM 5.4 mmol/L (3.6-5.0); TOTAL PROTEIN 6.7 g/dL (6.3-8.2)
--- NOTE | 2020-06-28 03:54 | RADIOLOGY REPORT (SQ) ---
EXAM DESCRIPTION: XR CHEST 1 VIEW COMPLETED DATE/TME: 06/28/2020 00:00 CLINICAL HISTORY: 34 years, Male, TACHYCARDIA COMPARISON: 03/02/2020 chest NUMBER OF VIEWS: 1 TECHNIQUE: Portable chest LIMITATIONS: None. FINDINGS: The heart size is stable. Lungs are clear. No pneumothorax IMPRESSION: No acute cardiopulmonary process copyright 2010 [employer]- All Rights Reserved
[2020-06-28] MEDS ORDERED: SODIUM POLYSTYRENE SULFONATE 15 GM/60 ML PO ONE (04:13)
[2020-06-28 04:49] VITALS: BP 164/109
--- NOTE | 2020-06-28 19:52 | EKG REPORT ---
SEVERITY:- ABNORMAL ECG - SINUS TACHYCARDIA PROBABLE INFERIOR INFARCT, AGE INDETERMINATE BORDERLINE R WAVE PROGRESSION, ANTERIOR LEADS ABNORMAL T, CONSIDER ISCHEMIA, ANT-LAT LEADS PROLONGED QT INTERVAL : Confirmed by: Zakiya Francis 28-Jun-2020 19:51:53
== END 2020-06-28 04:49 | disposition home or self-care (01) ==
LOC: ER 01:10
DX: F19.10 Other psychoactive substance abuse, uncomplicated (principal); F14.10 Cocaine abuse, uncomplicated; R00.0 Tachycardia, unspecified; E87.5 Hyperkalemia; R11.0 Nausea; R09.81 Nasal congestion; E87.1 Hypo-osmolality and hyponatremia; I10 Essential (primary) hypertension; E10.9 Type 1 diabetes mellitus without complications; I25.10 Atherosclerotic heart disease of native coronary artery without angina pectoris; Z79.4 Long term (current) use of insulin; F17.210 Nicotine dependence, cigarettes, uncomplicated; I25.2 Old myocardial infarction; J45.909 Unspecified asthma, uncomplicated
CPT/HCPCS: 93005; 99285; 96361; 96374; 96375; 36415; 82550; 85025; 80053; 84484; 71045; 93010; J2250; J3490; J2405; J7030

== ENCOUNTER 2020-07-18 20:55 | Inpatient (IN) | payer MEDICAID, OTHER ==
[2020-07-18] MEDS ORDERED: NORMAL SALINE 1000 ML 1,000 ML IV ONE ×2 (21:00→22:48)
--- NOTE | 2020-07-18 21:05 | ER Document Report ---
ED Medical Screen (RME) - General Chief Complaint: High Blood Sugar Stated Complaint: BLOOD SUGAR ISSUE/VOMITING Time Seen by Provider: 07/18/20 20:57 Mode of Arrival: Wheelchair Information source: Patient Notes: 34-year-old male presented to ED with high blood sugars nausea and vomiting. He states he is a type I diabetic and has not had any insulin since . He states he does not have any test strips at home so he does not know what his sugars been running. He states he started vomiting this morning he is very shaky tachycardic at 131 blood pressure 180/93. He states he is hurting all over. He states he smokes a pack a day does not drink or use any illicit drugs. He is very shaky. Have notified charge nurse that we need to bed immediately. Temp 99.1 sat 100% respirations 24. I have greeted and performed a rapid initial assessment of this patient. A comprehensive ED assessment and evaluation of the patient, analysis of test results and completion of medical decision making process will be conducted by an additional ED providers. TRAVEL OUTSIDE OF THE [place] IN LAST 30 DAYS: No - Related Data Allergies/Adverse Reactions: No Known Allergies Allergy (Verified 05/02/20 11:50) Past Medical History - Social History Family history: Reviewed & Not Pertinent - Past Medical History Cardiac Medical History: Reports: Hx Heart Attack - May 2017., Hx Hypertension Denies: Hx Congestive Heart Failure, Hx DVT, Hx Hypercholesterolemia, Hx Pulmonary Embolism Pulmonary Medical History: Reports: Hx Asthma - as child Denies: Hx COPD, Hx Sleep Apnea Neurological Medical History: Reports: Hx Migraine. Denies: Hx Seizures Endocrine Medical History: Reports: Hx Diabetes Mellitus Type 1. Denies: Hx Diabetes Mellitus Type 2, Hx Hyperthyroidism, Hx Hypothyroidism Renal/ Medical History: Denies: Hx Peritoneal Dialysis GI Medical History: Denies: Hx Cirrhosis, Hx Gastroesophageal Reflux Disease, Hx Hepatitis Musculoskeltal Medical History: Denies Hx Arthritis Psychiatric Medical History: Reports: Hx Anxiety, Hx Bipolar Disorder, Hx Depression, Hx Schizoaffective Disorder, Hx Schizophrenia Infectious Medical History: Denies: Hx C-Diff, Hx Hepatitis, Hx MRSA Past Surgical History: Reports: Hx Appendectomy, Hx Oral Surgery - wisdom teeth, Other - [place] teeth extraction - Immunizations Hx Diphtheria, Pertussis, Tetanus Vaccination: Yes
[2020-07-18 22:30] LABS: APPEARANCE,URINE CLEAR; BILIRUBIN,URINE NEGATIVE (NEGATIVE); COLOR,URINE COLORLESS; GLUCOSE, URINE >=500 mg/dL (NEGATIVE); KETONES,URINE 20 mg/dL (NEGATIVE); LEUKOCYTE ESTERASE,URINE NEGATIVE (NEGATIVE); NITRITE,URINE NEGATIVE (NEGATIVE); PROTEIN,URINE 100 mg/dL (NEGATIVE); URINE SPECIFIC GRAVITY 1.017; UROBILINOGEN,URINE NEGATIVE mg/dL (<2.0)
[2020-07-18] MEDS ORDERED: ONDANSETRON HCL INJ/PF 4 MG/2 ML SDV IV ONE (22:34)
[2020-07-18 23:27] LABS: VENOUS BLOOD BASE EXCESS -7.9 mmol/L; VENOUS BLOOD HCO3 18.7 mmol/L (20-32); VENOUS BLOOD PCO2 42.1 mmHg (35-63); VENOUS BLOOD PH 7.27 (7.30-7.42)
[2020-07-18 23:38] LABS: ABSOLUTE BASOPHILS # (AUTO) 0.1 10^3/uL (0.0-0.2); ABSOLUTE LYMPHOCYTES (AUTO) 0.8 10^3/uL (0.5-4.7); ABSOLUTE NEUT (AUTO) 13.1 10^3/uL (1.7-8.2); BASOPHILS % (AUTO) 0.9 % (0-2); EOSINOPHILS % (AUTO) 0.1 % (0-6); HEMATOCRIT 43.4 % (37.9-51.0); LYMPHOCYTES % (AUTO) 5.4 % (13-45); MEAN CORPUSCULAR HEMOGLOBIN 26.7 pg (27.0-33.4); MEAN CORPUSCULAR HGB CONC 29.8 g/dL (32.0-36.0); MONOCYTES % (AUTO) 6.7 % (3-13); PLATELET COUNT 295 10^3/uL (150-450); RED BLOOD COUNT 4.85 10^6/uL (4.35-5.55); RED CELL DISTRIBUTION WIDTH 15.5 % (11.5-14.0); SEGMENTED NEUTROPHILS % (AUTO) 86.9 % (42-78); TOTAL CELLS COUNTED % (AUTO) 100 %
[2020-07-18 23:42] LABS: MEAN CORPUSCULAR VOLUME 90 fl (80-97)
[2020-07-18 23:47] LABS: ALKALINE PHOSPHATASE 148 U/L (38-126); ASPARTATE AMINO TRANSFERASE 21 U/L (17-59); BILIRUBIN,DIRECT 0.3 mg/dL (0.0-0.4); BILIRUBIN,TOTAL 0.5 mg/dL (0.2-1.3); BLOOD UREA NITROGEN 30 mg/dL (7-20); CALCIUM 9.4 mg/dL (8.4-10.2); POTASSIUM 5.6 mmol/L (3.6-5.0); TOTAL PROTEIN 6.7 g/dL (6.3-8.2)
[2020-07-18 23:56] LABS: CARBON DIOXIDE 15 mmol/L (22-30); CHLORIDE 85 mmol/L (98-107)
[2020-07-19] LABS: ANION GAP 26 (5-19)
[2020-07-19 00:14] LABS: GLUCOSE 1285 mg/dL (75-110)
[2020-07-19] MEDS ORDERED: INSULIN REG, HUMAN 100 UNIT/ML 3 ML VIAL (PYX) IV ONE ×2 (00:21→08:30)
[2020-07-19] MEDS ORDERED: ONDANSETRON HCL INJ/PF 4 MG/2 ML SDV IV ONE (00:22)
[2020-07-19] MEDS ORDERED: NORMAL SALINE 100 ML with INSULIN REGULAR, HUMAN 100 UNIT IV PRN ×4 (00:25→01:15)
[2020-07-19] MEDS ORDERED: ACETAMINOPHEN 1,000 MG/100 ML RTUPB IV ONE (00:30)
[2020-07-19] MEDS ORDERED: RINGERS SOLUTION,LACTATED 1,000 ML IV SCH (00:30)
--- NOTE | 2020-07-19 00:46 | ER Document Report ---
ED General - General Chief Complaint: High Blood Pressure Stated Complaint: BLOOD SUGAR ISSUE/VOMITING Time Seen by Provider: 07/18/20 20:57 Mode of Arrival: Wheelchair Notes: 34-year-old male with history of htn insulin-dependent type 2 diabetes presents with 1 day of vomiting, generalized abdominal discomfort, shortness of breath. Patient has a stopped taking his insulin several days ago because he ran out of it. Patient has had similar symptoms in past with DKA. Patient denies any focal abdominal pain, GI history, constipation or obstipation, fever, urinary symptoms, trauma, syncope, chest pain, cough TRAVEL OUTSIDE OF THE [place] IN LAST 30 DAYS: No - Related Data Allergies/Adverse Reactions: No Known Allergies Allergy (Verified 05/02/20 11:50) Past Medical History - General Information source: Patient, [facility] Records - Social History Smoking Status: Current Every Day Smoker Frequency of alcohol use: None Drug Abuse: None Family History: Reviewed & Not Pertinent, DM, Hypertension - Past Medical History Cardiac Medical History: Reports: Hx Heart Attack - May 2017., Hx Hypertension Denies: Hx Congestive Heart Failure, Hx DVT, Hx Hypercholesterolemia, Hx Pulmonary Embolism Pulmonary Medical History: Reports: Hx Asthma - as child Denies: Hx COPD, Hx Sleep Apnea Neurological Medical History: Reports: Hx Migraine. Denies: Hx Seizures Endocrine Medical History: Reports: Hx Diabetes Mellitus Type 1. Denies: Hx Diabetes Mellitus Type 2, Hx Hyperthyroidism, Hx Hypothyroidism Renal/ Medical History: Denies: Hx Peritoneal Dialysis GI Medical History: Denies: Hx Cirrhosis, Hx Gastroesophageal Reflux Disease, Hx Hepatitis Musculoskeletal Medical History: Denies Hx Arthritis Psychiatric Medical History: Reports: Hx Anxiety, Hx Bipolar Disorder, Hx Depression, Hx Schizoaffective Disorder, Hx Schizophrenia Infectious Medical History: Denies: Hx C-Diff, Hx Hepatitis, Hx MRSA Past Surgical History: Reports: Hx Appendectomy, Hx Oral Surgery - wisdom teeth, Other - [place] teeth extraction - Immunizations Hx Diphtheria, Pertussis, Tetanus Vaccination: Yes Hx Pneumococcal Vaccination: 09/16/00 Review of Systems - Review of Systems Notes: REVIEW OF SYSTEMS: CONSTITUTIONAL : Denies fever, chills, or sweats. EENT: Denies recent cold/sinus symptoms, denies throat pain CARDIOVASCULAR: Denies chest pain, ANNIE RESPIRATORY: Denies cough, + shortness of breath. GASTROINTESTINAL: + abdominal pain, +nausea/vomiting. GENITOURINARY: Denies difficulty urinating, painful urination. MUSCULOSKELETAL: Denies neck pain, back pain. SKIN: Denies rash or skin lesions. HEMATOLOGIC : Denies easy bruising or bleeding. LYMPHATIC: Denies swollen, enlarged glands. NEUROLOGICAL: Denies headache, denies change in gait. PSYCHIATRIC: Denies anxiety or stress or depression. Physical Exam - Vital signs Vitals: Resp Pulse Ox 23 H 100 07/18/20 21:16 07/18/20 21:16 - Notes Notes: PHYSICAL EXAMINATION: GENERAL: Mildly uncomfortable appearing young adult male in no acute distress HEAD: Atraumatic, normocephalic. EYES: Pupils equal round and appropriate constriction, sclera anicteric, conjunctiva are normal. ENT: nares patent, dry mucous membranes. NECK: Normal range of motion, supple without lymphadenopathy LUNGS: Breath sounds clear to auscultation bilaterally and equal. No wheezes rales or rhonchi. Mildly tachypnea, speaking in full sentences, no tripoding, no drooling HEART: Tachycardic with regular rhythm, no murmurs rubs or gallops ABDOMEN: Soft, mild diffuse abdominal tenderness with palpation without any guarding or rebound, no masses, no CVA tenderness EXTREMITIES: Normal range of motion, no pitting or edema. No cyanosis. NEUROLOGICAL: Awake, alert, oriented, conversing appropriately, moves all extremities spontaneously. PSYCH: Normal mood, normal affect. SKIN: Warm, Dry Course - Re-evaluation Re-evalutation: 07/19/20 00:47 Patient with markedly elevated blood sugar preceded by stopping all insulin several days ago, presentation concerning for DKA, no altered mental status concerning for complications of DKA/honk, benign abdominal exam. Patient tachycardic with mild shortness of breath likely secondary to DKA, if patient's clinical picture should worsen, if tachycardia and shortness of breath do not respond to fluid repletion and correction of acidosis then inpatient team will need to reassess need to obtain testing/imaging to rule out PE, but not indicated at this time. Patient has lateral T wave inversions on his EKG but this is not significantly changed from his prior EKG, will give aspirin but patient not having any chest pain and his shortness of breath likely secondary to DKA, will continue to monitor and have ordered troponin, but unlikely cardiac etiology causing patient's symptoms at this time. patient discussed with Dr. Lee who has accepted patient to IMCU. Have ordered fluids, insulin bolus and drip, will continue to monitor. 07/19/20 01:50 Patient needs additional IV access in order to administer fluids and insulin. Discussed need for central IV access with patient as multiple nurses have tried multiple sites to get peripheral IV and only able to secure 1 peripheral IV. Informed patient that it was necessary for extreme and that delaying his treatment could result in disability, , worsening symptoms, need for additional medical treatment, but he refused. Patient has capacity and is oriented and demonstrates understanding of these risks but says he does not want to do right now and would like to think about it and wait. I asked patient if he had any specific questions or anything he was concerned about with the procedure and he denied this, said that "maybe later ". I make sure patient was aware of the time sensitive nature of treating his DKA and that it was a potentially deadly medical condition which she also demonstrated understanding o f. Informed patient that if he changed his mind to please let us know, we will continue to treat patient with limited IV access as patient has refused this treatment at this time. - Vital Signs Vital signs: Temp Pulse Resp BP Pulse Ox 98.3 F 110 H 16 154/86 H 96 07/19/20 03:33 07/19/20 03:33 07/19/20 03:33 07/19/20 03:33 07/19/20 03:33 - Laboratory Result Diagrams: 07/18/20 23:16 07/19/20 05:06 Laboratory results interpreted by me: 07/18/20 07/18/20 07/18/20 21:02 21:20 23:16 WBC Hgb MCH MCHC RDW Lymph % (Auto) Absolute Neuts (auto) Seg Neutrophils % VBG pH 7.27 L VBG HCO3 18.7 L Sodium Potassium Chloride Carbon Dioxide Anion Gap BUN Creatinine Est GFR ( Amer) Est GFR (MDRD) Non-Af Glucose POC Glucose > 550 H* Alkaline Phosphatase Urine Protein 100 H Urine Glucose (UA) >=500 H Urine Ketones 20 H 07/18/20 07/18/20 23:16 23:16 WBC 15.0 H Hgb 13.0 L MCH 26.7 L MCHC 29.8 L RDW 15.5 H Lymph % (Auto) 5.4 L Absolute Neuts (auto) 13.1 H Seg Neutrophils % 86.9 H VBG pH VBG HCO3 Sodium 126.3 L Potassium 5.6 H Chloride 85 L Carbon Dioxide 15 L Anion Gap 26 H BUN 30 H Creatinine 2.22 H Est GFR ( Amer) 41 L Est GFR (MDRD) Non-Af 34 L Glucose 1285 H* POC Glucose Alkaline Phosphatase 148 H Urine Protein Urine Glucose (UA) Urine Ketones - EKG Interpretation by Me Additional EKG results interpreted by me: 07/19/20 06:49 Sinus tachycardia, isolated ST elevation in lead III, lateral T wave inversions, not significantly changed from prior EKG Discharge - Discharge Clinical Impression: DKA (diabetic ketoacidoses) Qualifiers: Diabetes mellitus type: type 1 Diabetes mellitus complication detail: without coma Qualified Code(s): E10.10 - Type 1 diabetes mellitus with ketoacidosis without coma Disposition: ADMITTED INPATIENT Admitting Provider: Jesus (Hospitalist) Unit Admitted: [facility]
[2020-07-19] MEDS ORDERED: ASPIRIN 81 MG TABLET, CHEWABLE PO ONE (01:02)
[2020-07-19] MEDS ORDERED: ONDANSETRON HCL INJ/PF 4 MG/2 ML SDV IV PRN (01:10)
[2020-07-19] MEDS ORDERED: RINGERS SOLUTION,LACTATED 1,000 ML IV PRN (01:10)
[2020-07-19] MEDS ORDERED: DEXTROSE 50%-WATER 25 GM/50 ML DISP.SYRIN IV PRN ×2 (01:15)
[2020-07-19] MEDS ORDERED: DEXTROSE 40% GEL 15 GM TUBE PO PRN ×2 (01:15)
[2020-07-19] MEDS ORDERED: GLUCAGON,HUMAN RECOMB 1 MG INJ IM PRN (01:15)
[2020-07-19] MEDS ORDERED: INSULIN REG, HUMAN 100 UNIT/ML 3 ML VIAL (PYX) ONE (01:33)
[2020-07-19] MEDS: HEPARIN SOD (PORCINE) 5,000 UNIT/ML 1 ML VIAL SUBCUT SCH ×3 (05:12→22:15)
--- NOTE | 2020-07-19 05:30 | PDOC H&P ---
History of Present Illness Admission Date/PCP: 07/19/2020 00:48 No local PCP Patient complains of: Nausea vomiting History of Present Illness: LENA SCHULZ is a 34 year old male who presents to the emergency room with acute nausea and vomiting. He has type 1 diabetes mellitus and admits that he ran out of insulin and glucose test strips 5 days ago. He began having nausea and vomiting on the morning of 07/18/2020. His nausea and vomiting have been accompanied by palpitations (rapid heartbeat) and have been associated with progressively worsening malaise and ague. He denies other associated or accompanying signs and symptoms. He admits numerous prior similar episodes related to diabetic ketoacidosis. He has not identified any aggravating or ameliorating factors for his nausea and vomiting. In the emergency room he was found to have a glucose of 1285 and an anion gap of 26 though his CO2 was 15, potassium was 5.6 and a VBG pH was 7.27. His urine was positive for ketones. He was subsequently admitted to the [facility] for further evaluation treatment. Past Medical History Cardiac Medical History: Reports: Myocardial Infarction - May 2017., Hypertension Denies: Congestive Heart Failure, DVT, Hyperlipidema, Pulmonary Embolism Pulmonary Medical History: Reports: Asthma - as child Denies: Chronic Obstructive Pulmonary Disease (COPD), Sleep Apnea EENT Medical History: Denies: Cataracts, Ears - Hearing aids Neurological Medical History: Reports: Migraine Denies: Hemorrhagic CVA, Ischemic CVA, Seizures Endocrine Medical History: Reports: Diabetes Mellitus Type 1 Denies: Diabetes Mellitus Type 2, Hyperthyroidism, Hypothyroidism Renal/ Medical History: Denies: Chronic Kidney Disease, Nephrolithiasis Malignancy Medical History: Reports: None GI Medical History: Denies: Cirrhosis, Gastroesophageal Reflux Disease, Hepatitis Musculoskeltal Medical History: Denies: Arthritis, Gout Skin Medical History: Denies: Eczema, Psoriasis Psychiatric Medical History: Reports: Bipolar Disorder, Depression, Schizoaffective Disorder, Tobacco Dependency Denies: Alcohol Dependency, Substance Abuse Traumatic Medical History: Reports: None Hematology: Denies: Anemia, Bleeding Tendencies Infectious Medical History: Reports: None Past Surgical History Past Surgical History: Reports: Appendectomy, Other - [place] teeth extraction Social History Information Source: Patient Lives with: Homeless Smoking Status: Current Every Day Smoker Electronic Cigarette use?: No Frequency of Alcohol Use: None Hx Recreational Drug Use: Yes Drugs: Cocaine, Marijuana Hx Prescription Drug Abuse: No - Advance Directive Resuscitation Status: Full Code Surrogate healthcare decision maker:: Patient refuses to provide Family History Family History: DM, Hypertension Parental Family History Reviewed: Yes Children Family History Reviewed: No Sibling(s) Family History Reviewed.: No Medication/Allergy Home Medications: Quetiapine Fumarate [Seroquel] 800 mg PO QHS 08/21/19 Trazodone HCl [Desyrel] 100 mg PO QHS 08/21/19 Buspirone HCl 5 mg PO TID 02/25/20 Mirtazapine [Remeron 15 mg Tablet] 45 mg PO QHS 02/26/20 Insulin Glargine,Hum.rec.anlog [Lantus Insulin 100 Unit/1 ml 10 ml] 35 unit SUBCUT QHS #10 ml 03/04/20 Insulin Lispro [Humalog Insulin (Lispro) 100 unit/mL] 15 units SUBCUT AC #10 ml 03/04/20 Amlodipine Besylate [Norvasc 10 mg Tablet] 10 mg PO DAILY 06/09/20 Gabapentin [Neurontin] 400 mg PO TID 06/09/20 Lansoprazole [Prevacid 30 Mg Odt Tablet] 30 mg PO BID 06/09/20 Ondansetron HCl [Zofran 8 mg Tablet] 8 mg PO Q8HP PRN 06/09/20 Sucralfate [Carafate Susp 1 Gm/10 Ml Udcup] 1 gm PO QID 06/09/20 Allergies/Adverse Reactions: No Known Allergies Allergy (Verified 05/02/20 11:50) Review of Systems Constitutional: PRESENT: as per HPI, other - Malaise and ague. ABSENT: chills, fever(s) Eyes: ABSENT: visual disturbances, other - Eye pain Ears: ABSENT: hearing changes, other - Ear pain Nose, Mouth, and Throat: ABSENT: headache(s), sore throat Cardiovascular: PRESENT: as per HPI, palpitations. ABSENT: chest pain Respiratory: ABSENT: cough, dyspnea Gastrointestinal: ABSENT: abdominal pain, constipation, diarrhea, nausea, vomiting Genitourinary: ABSENT: dysuria, hematuria Musculoskeletal: ABSENT: back pain, joint swelling Integumentary: ABSENT: pruritus, rash Neurological: ABSENT: confusion, convulsions, focal weakness, memory loss, syncope Psychiatric: ABSENT: anxiety, depression Endocrine: ABSENT: cold intolerance, heat intolerance Hematologic/Lymphatic: ABSENT: easy bleeding, easy bruising Allergic/Immunologic: ABSENT: seasonal rhinorrhea Physical Exam Vital Signs: Temp Pulse Resp BP Pulse Ox 99.1 F 18 164/88 H 98 07/18/20 21:21 07/18/20 23:00 07/18/20 22:01 07/18/20 23:35 Intake & Output 07/17/20 07/18/20 07/19/20 23:59 23:59 23:59 Weight 77 kg General appearance: PRESENT: no acute distress, cooperative Head exam: PRESENT: atraumatic, normocephalic Eye exam: PRESENT: conjunctiva pink. ABSENT: conjunctival injection, scleral icterus Ear exam: PRESENT: normal external ear exam. ABSENT: bleeding, drainage Mouth exam: PRESENT: dry mucosa, neck supple Neck exam: ABSENT: thyromegaly, tracheal deviation Respiratory exam: PRESENT: clear to auscultation juan ramon, symmetrical, unlabored Cardiovascular exam: PRESENT: RRR. ABSENT: clicks, gallop, rubs Pulses: PRESENT: normal radial pulses, normal dorsalis pedis pul Vascular exam: PRESENT: normal capillary refill. ABSENT: pallor GI/Abdominal exam: PRESENT: normal bowel sounds, soft Rectal exam: PRESENT: deferred Extremities exam: ABSENT: joint swelling, pedal edema Musculoskeletal exam: ABSENT: deformity, dislocation Neurological exam: PRESENT: alert, oriented to person, oriented to place, oriented to time, oriented to situation, CN II-XII grossly intact. ABSENT: motor sensory deficit Psychiatric exam: PRESENT: other - Resistant/contrary and affect, hostile mood Skin exam: PRESENT: dry, intact, warm. ABSENT: jaundice, rash, urticaria Results Laboratory Results: 07/18/20 23:16 07/18/20 23:16 07/18/20 07/18/20 07/18/20 21:20 22:24 23:16 WBC RBC Hgb Hct MCV MCH MCHC RDW Plt Count Seg Neutrophils % VBG pH 7.27 L VBG pCO2 42.1 VBG HCO3 18.7 L VBG Base Excess -7.9 Sodium Cancelled Potassium Cancelled Chloride Cancelled Carbon Dioxide Cancelled Anion Gap Cancelled BUN Cancelled Creatinine Cancelled Est GFR ( Amer) Cancelled Est GFR (Non-Af Amer) Cancelled Glucose Cancelled Calcium Cancelled Total Bilirubin Cancelled AST Cancelled Alkaline Phosphatase Cancelled Total Protein Cancelled Albumin Cancelled Lipase Urine Color COLORLESS Urine Appearance CLEAR Urine pH 6.0 Ur Specific [place] 1.017 Urine Protein 100 H Urine Glucose (UA) >=500 H Urine Ketones 20 H Urine Blood NEGATIVE Urine Nitrite NEGATIVE Ur Leukocyte Esterase NEGATIVE 07/18/20 07/18/20 07/18/20 23:16 23:16 23:16 WBC 15.0 H RBC 4.85 Hgb 13.0 L Hct 43.4 MCV 90 D MCH 26.7 L MCHC 29.8 L RDW 15.5 H Plt Count 295 Seg Neutrophils % 86.9 H VBG pH VBG pCO2 VBG HCO3 VBG Base Excess Sodium 126.3 L Potassium 5.6 H Chloride 85 L Carbon Dioxide 15 L Anion Gap 26 H BUN 30 H Creatinine 2.22 H Est GFR ( Amer) 41 L Est GFR (Non-Af Amer) Glucose 1285 H* Calcium 9.4 Total Bilirubin 0.5 AST 21 Alkaline Phosphatase 148 H Total Protein 6.7 Albumin 4.0 Lipase 49.1 Urine Color Urine Appearance Urine pH Ur Specific [place] Urine Protein Urine Glucose (UA) Urine Ketones Urine Blood Urine Nitrite Ur Leukocyte Esterase Assessment and Plan - Diagnosis (1) CAD (coronary artery disease) Qualifiers: Coronary Disease-Associated Artery/Lesion type: unspecified vessel or lesion type Associated angina: with unspecified angina (2) Hypertension Qualifiers: Hypertension type: unspecified Qualified Code(s): I10 - Essential (primary) hypertension (3) DKA, type 1 Qualifiers: Diabetes mellitus complication detail: without coma Qualified Code(s): E10.10 - Type 1 diabetes mellitus with ketoacidosis without coma - Plan Summary Summary: Patient be admitted to the [facility] where he will receive routine supportive and symptomatic cares. Treated with an insulin infusion per protocol. He will receive high-volume IV fluids utilizing lactated Ringer solution at 500 mL/h. He will receive Ativan 1 mg IV every 4 hours as needed for anxiety or restlessness. He received morphine sulfate 2 to 4 mg IV every 2 hours as needed for pain. He will be treated with a diabetic and cardiac restricted diet. Additional laboratory and/or radiographic evaluations to be obtained as needed. - Time Time Spent with patient: 15-24 minutes Medications reviewed and adjusted accordingly: Yes Anticipated Discharge Disposition: Home, Self Care Anticipated Discharge Timeframe: within 48 hours - Inpatient Certification Based on my medical assessment, after consideration of the patient's comorbidities, presenting symptoms, or acuity I expect that the services needed warrant INPATIENT care.: Yes I certify that my determination is in accordance with my understanding of Medicare's requirements for reasonable and necessary INPATIENT services [42 CFR 412.3e].: Yes Medical Necessity: Need Close Monitoring Due to Risk of Patient Decompensation, Need For IV Fluids, Risk of Complication if Not Cared For in Hospital
[2020-07-19 05:56] LABS: ANION GAP 14 (5-19); BLOOD UREA NITROGEN 31 mg/dL (7-20); CALCIUM 9.4 mg/dL (8.4-10.2); CARBON DIOXIDE 24 mmol/L (22-30); CHLORIDE 99 mmol/L (98-107); CREATINE KINASE 60 U/L (55-170)
[2020-07-19 06:39] LABS: GLUCOSE 707 mg/dL (75-110); POTASSIUM 3.8 mmol/L (3.6-5.0)
[2020-07-19] MEDS: PANTOPRAZOLE SODIUM 40 MG VIAL IV SCH ×2 (11:06→22:15)
[2020-07-19] MEDS: ACETAMINOPHEN SOLN 325 MG/10.15 ML UDCUP PO PRN (11:34)
[2020-07-19] MEDS ORDERED: ONDANSETRON HCL 8 MG TABLET PO PRN (14:23)
[2020-07-19 14:35] LABS: CREATINE KINASE MB 0.55 ng/mL (<4.55); TROPONIN I 0.054 ng/mL
[2020-07-19] MEDS ORDERED: (PENDING PHARMACY ID) (Sucralfate [Carafate Susp 1 Gm/10 Ml Udcup] 1 GM) PO SCH (16:00)
--- NOTE | 2020-07-19 16:47 | EKG REPORT ---
SEVERITY:- ABNORMAL ECG - SINUS TACHYCARDIA ABNORMAL T, CONSIDER ISCHEMIA, DIFFUSE LEADS BORDERLINE ST ELEVATION, INFERIOR LEADS PROLONGED QT INTERVAL : Confirmed by: Miller Cintron MD 19-Jul-2020 16:47:05
--- NOTE | 2020-07-19 17:05 | Progress Note ---
Provider Note Provider Note: Patient met late this morning by Dr. Lee. Please see H&P for full details of admission. Seen and examined by me. Insulin drip. IVF. BS improved.
[2020-07-19] MEDS ORDERED: (PENDING PHARMACY ID) (Lansoprazole 30 MG) PO SCH (18:00)
[2020-07-19] MEDS: INSULIN LISPRO 100 UNIT/ML 3 ML VIAL SUBCUT SCH (18:08)
[2020-07-19] MEDS: BUSPIRONE HCL 10 MG TABLET PO SCH (18:10)
[2020-07-19] MEDS: SUCRALFATE 1 GM TABLET PO SCH ×2 (18:10→22:13)
[2020-07-19] MEDS: PANTOPRAZOLE SODIUM 40 MG TABLET.DR PO SCH (18:10)
[2020-07-19] MEDS ORDERED: (PENDING PHARMACY ID) (Quetiapine Fumarate [Seroquel] 800 MG) PO SCH (22:00)
[2020-07-19] MEDS ORDERED: QUETIAPINE FUMARATE 100 MG TABLET PO SCH (22:00)
[2020-07-19] MEDS ORDERED: TRAZODONE HCL 50 MG TABLET PO SCH (22:00)
[2020-07-19] MEDS ORDERED: INSULIN GLARGINE,HUM.REC.ANLOG 1,000 UNIT/10 ML VIAL SUBCUT SCH (22:00)
[2020-07-19] MEDS ORDERED: MIRTAZAPINE 15 MG TABLET PO SCH (22:00)
[2020-07-19] MEDS ORDERED: (PENDING PHARMACY ID) (Trazodone Hcl [Desyrel] 100 MG) PO SCH (22:00)
[2020-07-19] MEDS: GABAPENTIN 400 MG CAPSULE PO SCH (22:13)
[2020-07-20] MEDS ORDERED: MORPHINE SULFATE 10 MG/ML INJ IV ONE (01:00)
[2020-07-20] MEDS ORDERED: RINGERS SOLUTION,LACTATED 1,000 ML IV PRN (03:11)
[2020-07-20 03:47] VITALS: BP 193/99
[2020-07-20] MEDS ORDERED: AMLODIPINE BESYLATE 10 MG TABLET PO SCH (05:00)
[2020-07-20] MEDS: HEPARIN SOD (PORCINE) 5,000 UNIT/ML 1 ML VIAL SUBCUT SCH (05:22)
[2020-07-20] MEDS: GABAPENTIN 400 MG CAPSULE PO SCH (05:23)
[2020-07-20] MEDS: ACETAMINOPHEN SOLN 325 MG/10.15 ML UDCUP PO PRN (05:26)
[2020-07-20] MEDS ORDERED: BUTALB/ACETAMINOPHEN/CAFFEINE 1 TAB EACH PO PRN (08:35)
[2020-07-20] MEDS: SUCRALFATE 1 GM TABLET PO SCH ×2 (08:37→10:57)
[2020-07-20] MEDS: INSULIN LISPRO 100 UNIT/ML 3 ML VIAL SUBCUT SCH (08:52)
[2020-07-20] MEDS ORDERED: NIFEDIPINE 30 MG TAB.ER.24 PO SCH ×2 (10:00)
[2020-07-20] MEDS: BUSPIRONE HCL 10 MG TABLET PO SCH (10:56)
[2020-07-20] MEDS: PANTOPRAZOLE SODIUM 40 MG TABLET.DR PO SCH (10:57)
[2020-07-20] MEDS: PANTOPRAZOLE SODIUM 40 MG VIAL IV SCH (10:57)
--- NOTE | 2020-07-20 12:33 | Left Against Medical Advice ---
Against Medical Advice Admission Date/Time: 07/19/20 00:58 Primary Care Provider: Date of Patient Emigration: 07/20/20 - Diagnosis: (1) DKA (diabetic ketoacidoses) Is this a current diagnosis for this admission?: Yes (2) Diabetic gastroparesis Is this a current diagnosis for this admission?: Yes (3) Dysphagia Is this a current diagnosis for this admission?: Yes (4) GERD (gastroesophageal reflux disease) Is this a current diagnosis for this admission?: Yes (5) Hypertension Is this a current diagnosis for this admission?: Yes (6) Non compliance with medical treatment Is this a current diagnosis for this admission?: Yes - Summary: Summary: Please see Admission and Progress Notes as well. LENA SCHULZ is a 34 M, who LEFT AGAINST MEDICAL ADVICE. Detailed discussion with patient regarding the risks of leaving the hospital AGAINST MEDICAL ADVICE including the risk of repeat hospitalization and . Patient is fully alert and oriented and capable of making independent decisions. They voiced understanding of the risks and wished to leave the hospital. Explained to the patient that they may return to the hospital at any time in the future and we will be glad to continue their care. The Patient was admitted on 07/19/20 00:58. Per Previous Physician: "LENA SCHULZ is a 34 year old male who presents to the emergency room with acute nausea and vomiting. He has type 1 diabetes mellitus and admits that he ran out of insulin and glucose test strips 5 days ago. He began having nausea and vomiting on the morning of 07/18/2020. His nausea and vomiting have been accompanied by palpitations (rapid heartbeat) and have been associated with progressively worsening malaise and ague. He denies other associated or accompanying signs and symptoms. He admits numerous prior similar episodes related to diabetic ketoacidosis. He has not identified any aggravating or ameliorating factors for his nausea and vomiting. In the emergency room he was found to have a glucose of 1285 and an anion gap of 26 though his CO2 was 15, potassium was 5.6 and a VBG pH was 7.27. His urine was positive for ketones. He was subsequently admitted to the [facility] for further evaluation treatment."
== END 2020-07-20 11:53 | disposition left against medical advice (07) | DRG 639 ==
LOC: ER 20:55 → EH 07-19 00:58 → 3W 07-19 02:41
PROVIDERS: ADMIT Emergency Medicine; ATTEND Internal Medicine
DX: E10.10 Type 1 diabetes mellitus with ketoacidosis without coma (principal); T38.3X6A Underdosing of insulin and oral hypoglycemic [antidiabetic] drugs, initial encounter; E10.43 Type 1 diabetes mellitus with diabetic autonomic (poly)neuropathy; K31.84 Gastroparesis; F17.200 Nicotine dependence, unspecified, uncomplicated; K21.9 Gastro-esophageal reflux disease without esophagitis; I25.10 Atherosclerotic heart disease of native coronary artery without angina pectoris; I10 Essential (primary) hypertension; Z79.4 Long term (current) use of insulin; Z83.3 Family history of diabetes mellitus; I25.2 Old myocardial infarction; Z90.49 Acquired absence of other specified parts of digestive tract
CPT/HCPCS: 36415; 80048; 80053; 81001; 82550; 82553; 82803; 82962; 83690; 83735; 84484; 85025; 87086; 93005; 93010; 96361; 96374; 99285; C9113; J0131; J1644; J1815; J2270; J2405; J3490; J7030; J7050; J7120

== ENCOUNTER 2020-07-27 00:26 | Emergency (ER) | payer MEDICAID ==
[2020-07-27 00:35] VITALS: BP 190/116
--- NOTE | 2020-07-27 00:57 | ER Document Report ---
ED Medical Screen (RME) - General Chief Complaint: Difficulty Swallowing Stated Complaint: DIFFICULTY SWALLOWING Time Seen by Provider: 07/27/20 00:53 Mode of Arrival: Ambulatory Information source: Patient Notes: Patient is a 34-year-old male comes emergency room complaining of difficulty swallowing. Patient states he sees a GI anibal and has been seen for the past 2 months for his difficulty swallowing and is not been able to figure out why he is having difficulty. Patient currently states that over the past 3 days he has been unable to keep any fluid or food down or swallow exam. He also states he is a diabetic and has been unable to eat or drink appropriate meals and is afraid that his sugars are out of whack. Patient states he is also having trouble handling his own secretions. Denies any fever. Patient also has a history of hypertension unable to take his medications. Physical examination: Patient is a well-nourished well-developed 34-year-old male no apparent distress but does appear somewhat uncomfortable on examination this morning. Cardiac: Patient displays a tachycardic rate of 103 bpm. Blood pressure is elevated on examination as well. Lungs: Bilateral breath sounds breath sounds increased clear auscultation. HEENT: Examined patient's oral cavity does not show any peritonsillar abscess type presentation. Currently he is handling his secretions. He is not spitting. There is some mild erythema noted in the posterior pharynx. Also examination noted some bilateral anterior cervical lymphadenopathy felt but is nontender to palpation. I have greeted and performed a rapid initial assessment of this patient. A comprehensive ED assessment and evaluation of the patient, analysis of test results and completion of the medical decision making process will be conducted by additional ED providers. Dictation of this chart was performed using voice recognition software; therefore, there may be some unintended grammatical errors. TRAVEL OUTSIDE OF THE [place] IN LAST 30 DAYS: No - Related Data Allergies/Adverse Reactions: No Known Allergies Allergy (Verified 07/27/20 00:44) Past Medical History - Social History Frequency of alcohol use: None Drug Abuse: None Family history: Reviewed & Not Pertinent - Past Medical History Cardiac Medical History: Reports: Hx Heart Attack - May 2017., Hx Hypertension Denies: Hx Congestive Heart Failure, Hx DVT, Hx Hypercholesterolemia, Hx Pulmonary Embolism Pulmonary Medical History: Reports: Hx Asthma - as child Denies: Hx COPD, Hx Sleep Apnea Neurological Medical History: Reports: Hx Migraine. Denies: Hx Seizures Endocrine Medical History: Reports: Hx Diabetes Mellitus Type 1. Denies: Hx Diabetes Mellitus Type 2, Hx Hyperthyroidism, Hx Hypothyroidism Renal/ Medical History: Denies: Hx Peritoneal Dialysis GI Medical History: Denies: Hx Cirrhosis, Hx Gastroesophageal Reflux Disease, Hx Hepatitis Musculoskeltal Medical History: Denies Hx Arthritis, Denies Hx Gout Skin Medical History: Denies Hx Eczema, Denies Hx Psoriasis Psychiatric Medical History: Reports: Hx Anxiety, Hx Bipolar Disorder, Hx Depression, Hx Schizoaffective Disorder, Hx Schizophrenia Infectious Medical History: Denies: Hx C-Diff, Hx Hepatitis, Hx MRSA Past Surgical History: Reports: Hx Appendectomy, Hx Oral Surgery - wisdom teeth, Other - [place] teeth extraction - Immunizations Hx Diphtheria, Pertussis, Tetanus Vaccination: Yes Physical Exam - Vital signs Vitals: Temp Pulse Resp BP Pulse Ox 98.4 F 103 H 17 190/116 H 99 07/27/20 00:33 07/27/20 00:33 07/27/20 00:33 07/27/20 00:33 07/27/20 00:33 Course - Vital Signs Vital signs: Temp Pulse Resp BP Pulse Ox 98.4 F 103 H 17 190/116 H 99 07/27/20 00:33 07/27/20 00:33 07/27/20 00:33 07/27/20 00:33 07/27/20 00:33
--- NOTE | 2020-07-27 01:37 | RADIOLOGY REPORT (SQ) ---
CLINICAL HISTORY: Dysphagia COMPARISON: None. TECHNIQUE: XR NECK SOFT TISSUE 07/27/2020 12:58 AM MANAGER VEHICLE FINDINGS: There are no significant Degenerative change in the cervical spine. Prevertebral soft tissues are normal. Epiglottis is unremarkable. Airway is patent. IMPRESSION: No radiopaque foreign body.
--- OUTSIDE RECORDS SUMMARY | 2020-07-28 17:53 | XMS REPORT ---
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 Simvastatin 2017-0 Yes General 20MG EVERY -11 Acute Care EVENING AT 00:00: Hospital 1800 00 insulin 0 Yes 30U Inject 30 Inject 30 glargine 5-10 Units Units (LANTUS) 09:22: under the under the 100 unit/mL 09 skin skin injection daily. daily. gabapentin Yes 300mg Take 300 Take 300 (NEURONTIN) 5-10 mg by mg by 300 MG 09:10: mouth Two mouth Tw o capsule 31 (2) times (2) time s a day. a day. traZODone 0 Yes 50mg Take 50 mg Take 50 (DESYREL) 5-10 by mouth mg by 100 MG 09:10: nightly. mouth tablet 31 nightly. famotidine Yes History of 20mg Take 20 m g Take 20 (PEPCID) 20 5-10 myocardial by mouth mg by MG tablet 09:10: infarction daily. charlotte th 31 daily. insulin Yes 5U Inject 5 Inject 5 lispro 5-10 Units Units (HUMALOG) 09:10: under the under the 100 unit/mL 31 skin Three ski n injection (3) times Three (3) pen a day times a before day meals. before meals. mirtazapine 2018-0 Yes 30mg Take 30 mg Ta ke 30 (REMERON) 5-10 by mouth mg by 30 MG 09:10: nightly. mouth tablet 31 nightly. QUEtiapine 2018-0 Yes 800mg Take 800 Take 800 (SEROQUEL) 5-10 mg by mg by 400 MG 09:10: mouth mouth tablet 31 nightly. nightly. ibuprofen 2018-0 Yes 800mg Take 800 Take 8 00 (ADVIL,MOTR 5-10 mg by mg by IN) 800 MG 09:10: mouth mouth tablet 31 every every eight (8) eight (8) hours as hours as needed for needed pain. for pain. aluminum-ma 2018-0 Yes 30mL Take 30 mL Ta ke 30 gnesium 5-10 by mouth 4 mL by hydroxide-s 09:10: (four) mouth 4 imethicone 31 times a (four) (MAALOX day as times a PLUS) needed. day as 200-200-20 needed. mg/5 mL Susp ALPHA Yes Apply Apply HYDROXY 5-10 topically topicall y ACIDS TOP 09:10: nightly. nightl y. 31 multivitami 0 Yes 1{tbl} Take 1 Take 1 n 5-10 tablet by tablet by (TAB-A-PALMIRA 09:10: mouth mouth /THERAGRAN) 30 daily. daily. per tablet simvastatin 2017-0 Yes 20mg Take 20 mg Ta ke 20 (ZOCOR) 20 5-10 by mouth mg by MG tablet 09:10: nightly. mouth 30 nightly. acetaminoph 2017-0 Yes 15mg/kg Take 15 Andriy e 15 en 5-10 mg/kg by mg/kg by (TYLENOL) 09:10: mouth mouth 160 mg/5 mL 30 every six ever y six solution (6) hours (6) rolando rs as needed as needed for fever. for fever. diphenhydrA 2017-0 Yes 25mg Take 25 mg Ta ke 25 MINE 5-10 by mouth mg by (BENADRYL) 09:10: every six mout h 25 mg 30 (6) hours every six capsule as needed (6) hour s for as needed itching. for itching. EPINEPHrine 2017-0 Yes .3mg Inject 0.3 In ject (EPIPEN) 5-10 mg into 0.3 mg 0.3 mg/0.3 09:10: the muscle int o the mL 30 as needed muscle as injection for needed anaphylaxi for s. anaphylax is. glucagon 1 Yes 1mg Infuse 1 Infus e 1 mg/ml SolR 5-10 mg into a mg in to a 09:10: venous venous 30 catheter catheter once. once. ALPHA No Apply Apply HYDROXY 5-10 topically topicall y ACIDS TOP 09:10: nightly. nightl y. 29 benzoyl Yes Apply Apply peroxide 5 5-10 topically topic ally % gel 09:10: daily. daily. 29 mirtazapine Yes 15mg Take 15 mg Ta ke 15 (REMERON) 5-10 by mouth mg by 15 MG 09:10: nightly. mouth tablet 29 nightly. aspirin Yes History of 81mg Take 81 mg T savannah 81 (ECOTRIN) 4-19 myocardial by mouth mg by 81 MG 09:59: infarction daily. mouth tablet 19 daily. citalopram Yes History of 40mg Take 40 m g Take 40 (CELEXA) 40 4-19 myocardial by mouth mg by MG tablet 09:59: infarction daily. [place] th 19 daily. lisinopril Yes History of 2.5mg Take 2.5 Take 2.5 (PRINIVIL,Z 4-19 myocardial mg by mg by ESTRIL) 2.5 09:59: infarction mouth mo uth MG tablet 19 daily. daily. Acetaminoph No General 650MG EVERY SIX en 4-11 Acute Care HOURS 00:00: Hospital NEEDED PRN 00 For Pain Mag Yes General 30ML EVERY SIX Hydrox/Al 4-11 Acute Care HOURS Hydrox/Nelson 00:00: Hospital NEEDED PRN th 00 For ABDOMINAL DISCOMFORT Amlodipine Yes General 10MG EVERY DAY Besylate 12-25 Acute Care 00:00: Hospital 00 Atenolol Yes General 100MG EVERY 4-11 Acute Care MORNING 00:00: Hospital 00 Atorvastati No General 40MG EVERY DAY n Calcium - Acute Care 00:00: Hospital 00 Citalopram Yes General 40MG EVERY DAY Hydrobromid 11 Acute Care e 00:00: Hospital 00 Dextrose 2017-0 Yes General 15GM NEEDED -11 Acute Care PRN For 00:00: Hospital Hypoglycem 00 ia Diphenhydra 2017-0 Yes General 25MG EVERY SIX mine Hcl - Acute Care HOURS 00:00: Hospital NEEDED PRN 00 For Anxiety Duloxetine 2017-0 No General 30MG TWO TIMES Hcl - Acute Care DAILY 00:00: Hospital 00 Epinephrine 2017-0 Yes General .3MG NEEDED 12-25 Acute Care PRN For 00:00: Hospital allergic 00 reaction Gabapentin 2017-0 Yes General 300MG TWO TIMES -11 Acute Care DAILY 00:00: Hospital 00 Glucagon,Hu 0 Yes General 1MG NEEDED man 12-25 Acute Care PRN For Recombinant 00:00: Hospital Hypoglycem 00 ia Ferrous 0 No General 324MG TWO TIMES Fumarate 12-25 Acute Care DAILY 00:00: Hospital 00 Ibuprofen 2017-0 No General 800MG EVERY 4-11 Acute Care EIGHT 00:00: Hospital HOURS 00 NEEDED PRN For Pain Insulin 2017-0 Yes General 5UNIT THREE Lispro - Acute Care TIMES A 00:00: Hospital DAY 00 Insulin 2017-0 Yes General 30UNIT EVERY Glargine - Acute Care MORNING 00:00: Hospital 00 Methocarbam 2017-0 No General 750MG EVERY SIX ol - Acute Care HOURS 00:00: Hospital NEEDED PRN 00 For Pain Mirtazapine 2017-0 Yes General 30MG EVERY 4-11 Acute Care NIGHT AT 00:00: Hospital BEDTIME 00 Multivitami 2018-0 Yes General 1TAB EVERY DAY ns, 4-11 Acute Care Iron,Ca,Fa, 00:00: Hospital Min 00 Quetiapine 2017-0 Yes General 800MG EVERY Fumarate -11 Acute Care NIGHT AT 00:00: Hospital BEDTIME 00 Trazodone 2017-0 Yes General 50MG AT BEDTIME Hcl -11 Acute Care NEEDED 00:00: Hospital PRN For 00 Insomnia Ergocalcife 2017-0 No General [id number] Q7D rol - Acute Care IT 00:00: Hospital 00 Famotidine 2017-0 2018- No General 20MG EVERY 4-11 05-14 Acute Care NIGHT AT 00:00: 14:00 Hospital BEDTIME 00 :00 Pantoprazol 2017-0 2018- No General 40MG EVERY e Sodium 12-25 05-14 Acute Care MORNING 00:00: 14:02 Hospital 00 :00 pantoprazol 2016-09 Yes 40mg Take 40 mg Ta ke 40 e 1-14 by mouth. mg by (PROTONIX) 00:00: mouth. 40 MG 00 tablet pantoprazol 2016-09 Yes 40mg Take 40 mg e 1-14 by mouth (PROTONIX) 00:00: twice a 40 mg Oral 00 day before Tablet, meals. Delayed Release (E.C.) labetalol 2016-09 2019- No 300mg Q.5D Take 300 (NORMODYNE) 1-14 09-12 mg by 300 mg Oral 00:00: 00:00 mouth Tablet 00 :00 twice a day. amLODIPine 2017- No 10mg Take 1 Take 1 (NORVASC) 06-04 tablet (10 table t 10 MG 00:00: 23:59 mg total) (10 mg tablet 00 :00 by mouth total) by daily. mouth daily. atenolol Yes 100mg Take 100 Take 10 0 (TENORMIN) 9-14 mg by mg by 100 MG 11:56: mouth mouth tablet 33 daily. daily. ACCU-CHEK Yes 541 USE TO CANDIE PLUS 3-30 TEST blood TEST STRP 00:00: sugar SIX Misc.(Non-D 00 TIMES rug; Combo DAILY Route) Strip NOVOLOG 2019- No INJECT UP FLEXPEN 100 -06-05 TO 15 unit/mL 00:00: 00:00 UNITS WITH Subcutaneou 00 :00 EACH A s Insulin MEAL Pen DIRECTED USING SLIDING SCALE. DO NOT USE MORE THAN 45 UNITS DAILY PER MD DUONG 2019- No QD every FLEXTOUCH 206-05 morning. 100 unit/mL 00:00: 00:00 (3 mL) 00 :00 Subcutaneou s Insulin Pen Ferrous Yes TID 1 tablet Sulfate 325 Orally (65 Fe) MG three times a day Simvastatin Yes 1 tablet 20 MG in the evening Once a day Orally 90 days Aspirin 81 Yes 1 tablet MG Once a day Orally 30 day(s) Trazodone Yes QD 1 tablet HCl 50 MG at bedtime as needed Orally Once a day Multi-Vitam Yes QD 1 tablet in - every morning Orally Once a day Norvasc 10 Yes 1 tablet MG every morning Once a day Orally 90 days Carafate 1 Yes QID 1 tablet GM Orally every 6 hrs Lantus 100 Yes as UNIT/ML directed Subcutaneo us 35 units daily Lisinopril Yes QD 1 tablet 2.5 MG Once a day Orally 90 days Orally Once a day Humalog 100 Yes as UNIT/ML directed Subcutaneo us 5 units before meals plus sliding scale ASA No BID 1 tab Oral twice a day Thorazine Yes BID 1 tab 25 orally 2 times a day Pantoprazol Yes BID 1 tablet e Sodium 40 Orally MG twice a day Celexa 40 Yes QD 0.5 tablet MG Orally Once a day Accu-Chek No use as Candie Plus directed - THREE TIMES DAILY In Vitro up to three times a day Accu-Chek Yes E11.42 In Candie Plus Vitro up w/Device to four times a day Problems Condition Condition Condition Status Onset Resolution Last Treatin g Comments Name Details Category Date Date Treatment Clinician Date Tobacco Nicotine Problem Active user dependence, 04-18 cigarettes, 00:00: uncomplicat 00 ed 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 02-10 diabetes mellitus 00:00: mellitus with 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 Chronic Chronic [id number] Active renal renal 06-15 failure, failure, 00:00: stage 3 stage 3 00 (moderate) (moderate) Recurrent Recurrent 37127132 Active Ove rview: major major 06-09 Patient depressive depressive 00:00: ad mitted disorder disorder 00 for EC T treatmen t and depressi o n Essential Essential Problem Active hypertensio (primary) 05-12 n hypertensio 00:00: n 00 Multiple Type 1 Problem Active complicatio diabetes 05-12 ns of type mellitus 00:00: I diabetes with other 00 mellitus specified complicatio n Schizoaffec Schizoaffec Problem Active tive tive 05-12 disorder, disorder, 00:00: bipolar bipolar 00 type type Stricture Esophageal Problem Active of obstruction 05-12 esophagus 00:00: 00 Esophageal Esophageal Condition Active 2018-01-23 stricture stricture 5-10 09:40:47 00:00: 00 History of History of Condition Active 2018-01-02 myocardial myocardial 4-19 10:24:22 infarction infarction 00:00: 00 Depression Depression [id number] Active with with 06-07 suicidal suicidal 00:00: ideation ideation 00 ALEXA (acute ALEXA (acute Condition Active 2017-05-30 kidney kidney 05-30 19:23:31 injury) injury) 00:00: 00 Anemia Anemia Condition Active 2017-05-3005-30 19:23:42 00:00: 00 Gastroesoph Gastroesoph [id number] Active ageal ageal 8-17 reflux reflux 00:00: disease disease 00 with with esophagitis esophagitis Opioid use Opioid use 46641659 Active disorder, disorder, 8-17 severe, severe, 00:00: dependence dependence 00 MDD (major MDD (major 21826204 Active depressive depressive 7-28 disorder), disorder), 00:00: severe severe 00 Schizophren Schizophren [id number] Active ia with ia with 6-07 prominent prominent 00:00: negative negative 00 symptoms symptoms Chronic Chronic 53206083 Active back pain back pain 4-25 00:00: 00 Major Major 57767643 Active Overvie w: depressive depressive 4-10 Se pauline disorder, disorder, 00:00: depr essio recurrent recurrent 00 n episode, episode, increa sin severe, severe, g over with with the last psychosis psychosis few days. Has plan to slit his throat Hypertensio Hypertensio [id number] Active Overview: n n 7-05 Last 00:00: Assessme n 00 t & Plan : Currentl y poorly controll e d. Continue home medicati o n and ad d PRN hydralaz i ne. 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 2 and hypertensio hypertensio n n Marijuana Marijuana 45757851 Inactiv use use e Hyperglycem Hyperglycem 01951674 Active ia ia Chronic Chronic 58012081 Active bilateral bilateral low back low back pain with pain with right-sided right-sided sciatica sciatica Marijuana Marijuana 64963588 Active use use Acute ST Acute ST Condition Resolve 2018-01-23 elevation elevation d 05-30 00:00:00 myocardial myocardial 00:00: infarction infarction 00 (STEMI) (STEMI) GI bleed GI bleed Condition Resolve 2018-01-23 requiring requiring d 05-30 00:00:00 more than 4 more than 4 00:00: units of units of 00 blood in 24 blood in 24 hours, ICU, hours, ICU, or surgery or surgery Major Major [id number] Resolve 2017-01-15 2017-01-15 depressive depressive d 00:00:00 09:31:58 disorder disorder with single with single episode episode Severe Severe [id number] Resolve 2017-01-15 2019-06-15 single single d 00:00:00 06:51:12 current current episode of episode of major major depressive depressive disorder, disorder, with with psychotic psychotic features features Procedures Procedure Date / Time Performed Performing Clinician Johnna carroll GLUCOSE, POC (GLUCOMETER) 2019-06-16 16:18:00 Simms, Natalie Eric sell GLUCOSE, POC (GLUCOMETER) 2019-06-16 11:37:00 Simms, Natlaie Erci sell GLUCOSE, POC (GLUCOMETER) 2019-06-16 00:35:00 Simms, Natalie Eric sell GLUCOSE, POC (GLUCOMETER) 2019-06-15 15:54:00 Simms, Natalie Eric sell GLUCOSE, POC (GLUCOMETER) 2019-06-15 09:32:00 Simms, Natalie Eric sell GLUCOSE, POC (GLUCOMETER) 2019-06-14 23:41:00 Simms, Natalie Eric sell GLUCOSE, POC (GLUCOMETER) 2019-06-14 20:36:00 Simms, Natalie Eric sell GLUCOSE, POC (GLUCOMETER) 2019-06-14 15:54:00 Simms, Natalie Eric sell GLUCOSE, POC (GLUCOMETER) 2019-06-14 11:41:00 Simms, Natalie Eric sell GLUCOSE, POC (GLUCOMETER) 2019-06-14 00:24:00 Simms, Natalie Eric sell GLUCOSE, POC (GLUCOMETER) 2019-06-14 00:05:00 Simms, Natalie Eric sell BASIC METABOLIC PANEL 2019-06-13 18:12:00 Davi Recinos BLOOD EXPOSURE PANEL (PER 2019-06-13 18:12:00 Simms, Natalie Eric sell INCIDENT REPORT) GLUCOSE, POC (GLUCOMETER) 2019-06-13 17:09:00 Smims, Natalie Eric sell CREATININE WITH GFR 2019-06-13 16:37:00 Davi Recinos GLUCOSE, POC (GLUCOMETER) 2019-06-13 11:18:00 Simms, Natalie Eric sell GLUCOSE, POC (GLUCOMETER) 2019-06-13 01:09:00 Simms, Natalie Eric sell GLUCOSE, POC (GLUCOMETER) 2019-06-12 21:43:00 Simms, Natalie Eric sell GLUCOSE, POC (GLUCOMETER) 2019-06-12 12:04:00 Simms, Natalie Eric sell GLUCOSE, POC (GLUCOMETER) 2019-06-12 09:41:00 Simms, Natalie Eric sell GLUCOSE, POC (GLUCOMETER) 2019-06-12 01:48:00 Simms, Natalie Eric sell GLUCOSE, POC (GLUCOMETER) 2019-06-12 00:09:00 Simms, Natalie Eric sell GLUCOSE, POC (GLUCOMETER) 2019-06-11 20:58:00 Simms, Natalie Eric sell GLUCOSE, POC (GLUCOMETER) 2019-06-11 16:05:00 Simms, Natalie Eric sell GLUCOSE, POC (GLUCOMETER) 2019-06-11 14:49:00 Simms, Natalie Eric sell GLUCOSE, POC (GLUCOMETER) 2019-06-11 11:34:00 Simms, Natalie Eric sell GLUCOSE, POC (GLUCOMETER) 2019-06-10 20:45:00 Simms, Natalie Eric sell GLUCOSE, POC (GLUCOMETER) 2019-06-10 14:08:00 Simms, Natalie Eric sell GLUCOSE, POC (GLUCOMETER) 2019-06-10 11:26:00 Simms, Natalie Eric sell VASCULAR ACCESS TEAM US GUIDED 2019-06-09 22:20:00 Prieto Simms MIDLINE IV PLACEMENT GLUCOSE, POC (GLUCOMETER) 2019-06-09 14:24:00 Simms, Natalie Eric sell GLUCOSE, POC (GLUCOMETER) 2019-06-08 09:15:00 Simms, Natalie Eric sell GLUCOSE, POC (GLUCOMETER) 2019-06-08 01:27:00 Simms, Natalie Eric sell GLUCOSE, POC (GLUCOMETER) 2019-06-07 22:46:00 Simms, Natalie Eric sell GLUCOSE, POC (GLUCOMETER) 2019-06-07 21:02:00 Natalie Simms sell GLUCOSE, POC (GLUCOMETER) 2019-06-07 16:18:00 Natalie Simms sell GLUCOSE, POC (GLUCOMETER) 2019-06-07 12:26:00 Natalie Simms sell COMPREHENSIVE METABOLIC PANEL 2019-06-07 09:24:00 Boogie Nelson TSH 2019-06-07 09:24:00 Boogie Nelson VITAMIN B12 2019-06-07 09:24:00 Boogie Nelson CBC WITH DIFF 2019-06-07 09:24:00 Boogie Nelson HEMOGLOBIN A1C (GLYCOSYLATED) 2019-06-07 09:24:00 Boogie Nelson LIPID PANEL 2019-06-07 09:24:00 Boogie Nelson SYPHILIS ANTIBODIES 2019-06-07 09:24:00 Boogie Nelson GLUCOSE, POC (GLUCOMETER) 2019-06-07 02:16:00 Natalie Simms sell EKG 12 LEAD 2019-06-06 15:56:00 Boogie Nelson GLUCOSE, POC (GLUCOMETER) 2019-06-06 13:56:00 Natalie Simms sell XRAY CHEST 2 VIEWS 2019-06-06 12:27:26 Boogie Nelson EKGSCAN 2019-06-06 04:00:00 Unassnash Doctor GLUCOSE, POC (GLUCOMETER) 2019-06-05 22:37:00 Natalie Simms sell GLUCOSE, POC (GLUCOMETER) 2019-06-05 19:38:00 Al, Veeraindar GLUCOSE, POC (GLUCOMETER) 2019-06-05 18:59:00 Al, Veeraindar GLUCOSE, POC (GLUCOMETER) 2019-06-05 18:07:00 Al, Veeraindar GLUCOSE, POC (GLUCOMETER) 2019-06-05 11:35:00 Al, Veeraindar GLUCOSE, POC (GLUCOMETER) 2019-06-05 00:21:00 Al, Veeraindar GLUCOSE, POC (GLUCOMETER) 2019-06-04 20:35:00 Al, Veeraindar GLUCOSE, POC (GLUCOMETER) 2019-06-04 11:17:00 Al, Veeraindar GLUCOSE, POC (GLUCOMETER) 2019-06-04 00:09:00 Al, Veeraindar GLUCOSE, POC (GLUCOMETER) 2019-06-03 20:39:00 Al, Veeraindar GLUCOSE, POC (GLUCOMETER) 2019-06-03 15:37:00 Al, Veeraindar GLUCOSE, POC (GLUCOMETER) 2019-06-03 11:02:00 Al, Veeraindar GLUCOSE, POC (GLUCOMETER) 2019-06-03 01:12:00 Al, Veeraindar GLUCOSE, POC (GLUCOMETER) 2019-06-02 20:46:00 Al, Veeraindar GLUCOSE, POC (GLUCOMETER) 2019-06-02 15:35:00 Al, Veeraindar GLUCOSE, POC (GLUCOMETER) 2019-06-02 10:45:00 Al, Veeraindar GLUCOSE, POC (GLUCOMETER) 2019-06-02 10:41:00 Al, Veeraindar GLUCOSE, POC (GLUCOMETER) 2019-06-02 02:21:00 Al, Veeraindar GLUCOSE, POC (GLUCOMETER) 2019-06-01 20:36:00 Al, Veeraindar GLUCOSE, POC (GLUCOMETER) 2019-06-01 15:45:00 Al, Veeraindar GLUCOSE, POC (GLUCOMETER) 2019-06-01 13:06:00 Al, Veeraindar GLUCOSE, POC (GLUCOMETER) 2019-06-01 13:04:00 Al, Veeraindar GLUCOSE, POC (GLUCOMETER) 2019-06-01 11:37:00 Al, Veeraindar GLUCOSE, POC (GLUCOMETER) 2019-05-31 20:37:00 Al, Veeraindar GLUCOSE, POC (GLUCOMETER) 2019-05-31 18:15:00 Al, Veeraindar GLUCOSE, POC (GLUCOMETER) 2019-05-31 15:26:00 Al, Veeraindar GLUCOSE, POC (GLUCOMETER) 2019-05-31 11:29:00 Al, Veeraindar HEMOGLOBIN A1C (GLYCOSYLATED) 2019-05-31 10:24:00 Paris Saunders LIPID PANEL 2019-05-31 10:24:00 Mary Saunders RPR PANEL 2019-05-31 10:24:00 ChipMary GLUCOSE, POC (GLUCOMETER) 2019-05-31 00:27:00 Al, Veeraindar GLUCOSE, POC (GLUCOMETER) 2019-05-30 20:41:00 Al, Veeraindar GLUCOSE, POC (GLUCOMETER) 2019-05-30 15:59:00 Al, Veeraindar GLUCOSE, POC (GLUCOMETER) 2019-05-30 10:58:00 Al, Veeraindar GLUCOSE, POC (GLUCOMETER) 2019-05-30 00:36:00 Al, Veeraindar GLUCOSE, POC (GLUCOMETER) 2019-05-29 20:50:00 Al, Veeraindar GLUCOSE, POC (GLUCOMETER) 2019-05-29 18:29:00 Al, Veeraindar GLUCOSE, POC (GLUCOMETER) 2019-05-29 17:06:00 JakeMelvin Yuen o GLUCOSE, POC (GLUCOMETER) 2019-05-29 15:39:00 JakeMelvin Yuen o GLUCOSE, POC (GLUCOMETER) 2019-05-28 18:32:00 JakeMelvin Yuen o EKG 12 LEAD 2019-05-28 16:00:00 Melvin Josepho COMPREHENSIVE METABOLIC PANEL 2019-05-28 15:49:00 Miguel Yuen Ed uardo TSH 2019-05-28 15:49:00 Michael Joseph ETHANOL 2019-05-28 15:49:00 Michael Joseph CBC WITH DIFF 2019-05-28 15:49:00 JakeMelvin Yueno RPR PANEL 2019-05-28 15:49:00 ForsythMichael Yuen DRUG SCREEN, URINE 2019-05-28 15:12:00 ForsythMelvin Yueno EKGSCAN 2019-05-28 04:00:00 Doctor Micah POCT GLUCOSE 2018-02-25 12:47:00 Daron Loera POCT GLUCOSE 2018-02-25 10:54:00 Daron Loera ECHOCARDIOGRAM W COLORFLOW 2018-02-03 20:03:36 Willard Singh SPECTRAL DOPPLER ESOPH EGD DILATION <30 MM 2018-01-27 00:00:00 EGD BIOPSY SINGLE/MULTIPLE 2018-01-27 00:00:00 ANES UPR GI NDSC PX NOS 2018-01-27 00:00:00 UPPER GI SERIES W/AIR CONTR + 2018-01-10 00:00:00 ROUTINE VENIPUNCTURE 2017-12-25 00:00:00 Results Test Description Test Time Test Comments Text Results Atomic Results Result Comments GLUCOSE, POC (GLUCOMETER) 2019-06-16 12:20:52 Test Item Value Reference Range Comments Glucose (poct) (test code = 2339-0) 199 mg/dL 70-100 Lab Interpretation (test code = 51079-8) Abnormal BASIC METABOLIC [id number] 16:56:54 Test Item Value Reference Range Comments BUN (test code = 3094-0) 29 mg/dL 9-21 Sodium (test code = 2951-2) 140 mEq/L 136- 145 mEq/L Potassium (test code = 2823-3) 5.3 mEq/L 3.5- 4.5 mEq/L Chloride (test code = 2075-0) 102 mEq/L 98- 107 mEq/L Bicarbonate (TCO2) (test code = 8-9) 26 mEq/L 22- 29 m Eq/L Glucose (test code = 2345-7) 172 mg/dL 70-105 Creatinine (test code = 2160-0) 2.14 mg/dL 0.72-1.25 Anion Gap (calc.) (test code = 39116-8) 12 mEq/L 4- 12 mE q/L Calcium (test code = 58322-8) 9.6 mg/dL 8.4-10.2 GFR, non-AA, (est.) (test code = 36 mL/Min/1.73 m2 >59 mL/Min/1. 73 m2 50277-6) GFR, AA, (est.) (test code = 54377-7) 43 mL/Min/1.73 m2 >59 mL/M in/1.73 m2 Lab Interpretation (test code = Abnormal 62014-2) BLOOD EXPOSURE PANEL (PER INCIDENT REPORT)2019-06-13 15:05:47 Test Item Value Reference Range Comments Hepatitis B Virus Surface Ag NEG NEG^NEG (test code = 7905-3) Hepatitis B Virus Surface Ab NEG (test code = 87249-2) Hepatitis B Virus Core Ab, Total NEG NEG^NEG (test code = 47512-7) Hepatitis C Virus Ab (test code NEG NEG^NEG = 78363-3) HIV Ag/Yasmin Combo. (test code = NEG NEG^NEG T est performed by [employer] 40477-2) [facility] HIV Ag /Ab Combo assay. CREATININE WITH [id number] 13:35:22 Test Item Value Reference Range Comments Creatinine (test code = 2160-0) 2.01 mg/dL 0.72-1.25 GFR, non-AA, (est.) (test code = 38 mL/Min/1.73 m2 >59 mL/Min/1. 73 m2 43237-7) GFR, AA, (est.) (test code = 85585-0) 46 mL/Min/1.73 m2 >59 mL/M in/1.73 m2 Lab Interpretation (test code = Abnormal 99560-9) VASCULAR ACCESS TEAM US GUIDED MIDLINE IV [id number] 19:16:35A midline was placed by the Vascular Access Team (VAT). See progress notes for full report.HEMOGLOBIN A1C (GLYCOSYLATED)2019-06-07 10:56:40 Test Item Value Reference Range Comments Hemoglobin A1c (test code = 9.5 % 4.3-5.7 (NOT E) This assay has been 4548-4) cleared by the DA to be used as an aid i n the diagnosis of pepe betes and in identifying gracy ents who may be at risk for d eveloping diabetes. The th reshold for diagnosis of pepe betes is an HA1c result > or = 6.5%. Glucose, estimated average 226 mg/dL (test code = 52558-6) Lab Interpretation (test code = Abnormal 57755-8) [id number] 06:52:00 Test Item Value Reference Range Comments TSH (test code = 54758-2) 1.71 uIU/mL 0.35- 4.94 uIU/mL VITAMIN [id number] 06:52:00 Test Item Value Reference Range Comments Vitamin B12 (test code = 2132-9) 539 pg/mL 213-816 SYPHILIS [id number] 06:38:01 Test Item Value Reference Range Comments Syphilis Antibodies (test NONREACTIVE NR^NONREACTIVE Negati ve for antibodies to code = 17999-4) Treponema pallid um, the causitive agent of Syphilis. COMPREHENSIVE METABOLIC [id number] 06:30:59 Test Item Value Reference Range Comments Sodium (test code = 2951-2) 141 mEq/L 136- 145 mEq/L Potassium (test code = 2823-3) 3.7 mEq/L 3.5- 4.5 mEq/L Chloride (test code = 2075-0) 101 mEq/L 98- 107 mEq/L Bicarbonate (TCO2) (test code = 2027-9) 30 mEq/L 22- 29 m Eq/L Calcium (test code = 74386-3) 9.3 mg/dL 8.4-10.2 Glucose (test code = 2345-7) 69 mg/dL 70-105 BUN (test code = 3094-0) 28 mg/dL 9-21 Protein, Total (test code = 2885-2) 6.9 g/dL 6.4-8.3 Albumin (test code = 1751-7) 3.6 g/dL 3.5-5.2 Bilirubin, Total (test code = 1975-2) 0.2 mg/dL 0.1-1.2 Alkaline Phosphatase (test code = 67 U/L 40-150 6768-6) AST (SGOT) (test code = 1920-8) 17 U/L 5-34 Creatinine (test code = 2160-0) 1.95 mg/dL 0.72-1.25 Anion Gap (calc.) (test code = 38854-1) 10 mEq/L 4- 12 mE q/L ALT (SGPT) (test code = 1742-6) 27 U/L <55 GFR, non-AA, (est.) (test code = 40 mL/Min/1.73 m2 >59 mL/Min/1. 73 m2 68410-0) GFR, AA, (est.) (test code = 00173-6) 48 mL/Min/1.73 m2 >59 mL/M in/1.73 m2 Lab Interpretation (test code = Abnormal 27692-0) LIPID [id number] 06:30:20 Test Item Value Reference Range Comments Cholesterol, Total (test code = 276 mg/dL REFERENCE RANGES: 2093-3) STEPHANIE RABLE: <200 mg/dL BORDERLINE HIGH: 200-239 mg/dL HIGH: >239 mg/dL Triglycerides (test code = 209 mg/dL <150 2571-8) Cholesterol, HDL (test code = 51 mg/dL 40-60 RE FERENCE RANGES: LOW: <40 2085-9) mg/dL HIGH: >=60 mg/dL Cholesterol, LDL (test code = 183 mg/dL RE FERENCE RANGES: 46558-5) OPTIMAL: <100 m g/dL NEAR OR ABOVE OPTIMAL : 100-129 mg/dL BORD CRISTIANE HIGH: 130-159 mg /dL HIGH: 160- 189 mg/dL AMARIS Y HIGH: >=190 mg /dL Lab Interpretation (test code = Abnormal 72509-2) CBC WITH [id number] 06:02:17 Test Item Value Reference Range Comments WBC (test code = 6690-2) 8.33 k/uL 4.5- 11.0 k/uL RBC (test code = 789-8) 4.85 M/uL 4.4- 5.9 M/uL Hemoglobin (test code = 718-7) 12.9 g/dL 13-18 Hematocrit (calc.) (test code = 4544-3) 41.5 % 40-52 MCV (test code = 787-2) 85.6 fL 80-100 MCH (test code = 785-6) 26.6 pg 26-34 MCHC (calc.) (test code = 786-4) 31.1 g/dL 32-36 RDW (test code = 788-0) 12.7 % 11.5-14.5 Platelet (test code = 777-3) 320 k/uL 150- 440 k/uL Mean Platelet Volume (test code = 12929-9) 10.2 fL 7.4-1 0.6 Differential Type (test code = 436326) AUTOMATED Neutrophil (%) (test code = 31342-5) 53 % Lymphocyte (%) (test code = 736-9) 36 % Monocyte (%) (test code = 5905-5) 7 % Eosinophil (%) (test code = 713-8) 2 % Basophil (%) (test code = 706-2) 1 % Immature Granulocytes (%) (test code = 11441-0) 1 % Neutrophil (#) (test code = 09954-1) 4.41 k/uL 1.8- 7.7 k/ uL Lymphocyte (#) (test code = 731-0) 2.98 k/uL 1.0- 4.8 k/uL Monocyte (#) (test code = 742-7) 0.62 k/uL 0.0- 0.8 k/uL Eosinophil (#) (test code = 713577) 0.19 k/uL 0.0- 0.5 k/u L Basophil (#) (test code = 704-7) 0.09 k/uL 0.0- 0.2 k/uL Immature Granulocytes (#) (test code = 80498-7) 0.04 k/uL 0 k/uL Lab Interpretation (test code = 74350-6) Abnormal EKG 12 [id number] 12:43:00 Test Item Value Reference Range Comments EKG Text (test code = INTERFACED [facility]UMENTS - [facility] [id number]) [facility] ECG -Sinus rhythmnormal P axis, V-rate 60-99Borderline T abnormalities, lateral leadsT flat/neg, I aVL V5 V6ST elevation, consider anterior injuryST >0.15mV, V1-V7Xwymljxvsfi rate decreaserate less than previous (>20 bpm)When compared with ECG of 28-May-2019 12:00:48,Change in interpretation without significant change in waveformReading [place] [address] Heart Rate (test code = 74 BPM BPM 525868) P [place] (test code = 53 degrees degrees 929312) I-40 [place] (test code = -2 degrees degrees 880173) T-40 [place] (test code = 67 degrees degrees 222349) QRS [place] (test code = 57 degrees degrees 593189) ST [place] (test code = 26 degrees degrees 416067) T Wave [place] (test code = -4 degrees degrees 117606) XRAY CHEST 2 [id number] 08:35:00Findings/Impression: 1.No acute osseous abnormality.2.Pleural spaces are clear.3.Clear lungs.4.Normal appearance of the heart and mediastinum This examination was dictated by Jj Pizarro MD. Reading Doctor: Erick Krishnan Electronic Signature by: Erick Krishnan Indication:ECT Saturday Technique: XRAY CHEST 2 VIEWS Comparisons: 10/29/2017 Interface, Radresults_Incoming - 06/06/2019 8:39 AM EDTIndication: ECT Saturday Technique: XRAY CHEST 2 VIEWS Comparisons: 10/29/2017 IMPRESSION Findings/Impression: 1. No acute osseous abnormality. 2. Pleural spaces are clear. 3. Clear lungs. 4. Normal appearance of the heart and mediastinum This examination was dictated by Jj Pizarro MD. Reading Doctor: Erick Krishnan Electronic Signature by: Erick KrishnanGLUCOSE, POC (GLUCOMETER)2019-06-05 15:41:10 Test Item Value Reference Range Comments Glucose (poct) (test code = 2339-0) 179 mg/dL 70-100 Lab Interpretation (test code = 31472-0) Abnormal RPR [id number] 14:05:42 Test Item Value Reference Range Comments RPR (test code = 67213-4) NONREACTIVE NR^NONREACTIVE RPR TITER (test code = 43251-4) NOT APPLICABLE TITER LIPID [id number] 07:02:50 Test Item Value Reference Range Comments Cholesterol, Total (test code = 211 mg/dL 961-153 0983-3) Triglycerides (test code = 102 mg/dL 35-150 2571-8) Cholesterol, HDL (test code = 56 mg/dL 40-59 2085-9) Cholesterol, LDL (test code = 135 mg/dL 0-129 27008-4) Cholesterol, Total/HDL (test 3.8 mg/dL NO NORMAL RANGES ESTABLISHED code = 9830-1) Lab Interpretation (test code = Abnormal 51259-5) HEMOGLOBIN A1C (GLYCOSYLATED)2019-05-31 06:58:08 Test Item Value Reference Range Comments Hemoglobin A1c (test code = 4548-4) 8.9 % 4.5-6.2 Lab Interpretation (test code = 87130-7) Abnormal EKG 12 [id number] 22:29:00 Test Item Value Reference Range Comments EKG Text (test code = INTERFACED DOCUMENTS - [facility] [id number]) [facility]- ABNORMAL ECG -Sinus rhythmnormal P axis, V-rate 50-99Probable left atrial enlargementP >50mS, <-0.10mV A9Ysbdimsfazd T abnormalities, inferiorand anterolateral leadsReading [facility] [address] Heart Rate (test code = 96 BPM BPM 016850) P [place] (test code = 52 degrees degrees 538761) I-40 [place] (test code = -81 degrees degrees 838991) T-40 [place] (test code = 49 degrees degrees 783695) QRS [place] (test code = 46 degrees degrees 874511) ST [place] (test code = 60 degrees degrees 402214) T Wave [place] (test code = -50 degrees degrees 518194) COMPREHENSIVE METABOLIC [id number] 12:54:23 Test Item Value Reference Range Comments Sodium (test code = 2951-2) 137 mEq/L 136- 145 mEq/L Potassium (test code = 2823-3) 3.6 mEq/L 3.5- 5.1 mEq/L Chloride (test code = 2075-0) 102 mEq/L 98- 107 mEq/L Bicarbonate (TCO2) (test code = 2027-9) 30 mEq/L 21- 32 m Eq/L Calcium (test code = 63406-8) 8.7 mg/dL 8.5-10.1 Glucose (test code = 2345-7) 183 mg/dL 74-106 BUN (test code = 3094-0) 8 mg/dL 7-18 Protein, Total (test code = 2885-2) 7.1 g/dL 6.4-8.2 Albumin (test code = 1751-7) 3.1 g/dL 3.4-5 Bilirubin, Total (test code = 1975-2) 0.3 mg/dL 0.2-1 Alkaline Phosphatase (test code = 80 U/L 46-116 6768-6) AST (SGOT) (test code = 1920-8) 16 U/L 15-37 Creatinine (test code = 2160-0) 1.44 mg/dL 0.55-1.3 Anion Gap (calc.) (test code = 45859-2) 5 mEq/L 5- 15 mE q/L ALT (SGPT) (test code = 1742-6) 12 U/L 12-78 BUN/Creatinine (test code = 3097-3) 5.6 mg/dL Osmolality (calc) (test code = 64472-0) 277 mOsmol/kg 273- 304 mOsmol/kg Globulin (calc.) (test code = 23074-9) 4.0 g/dL Albumin / Globulin (test code = 1759-0) 0.78 GFR, non-AA, (est.) (test code = 59 mL/Min/1.73 m2 >59 mL/Min/1. 73 m2 46478-0) GFR, AA, (est.) (test code = 37853-9) >59 >59 mL/Min /1.73 m2 Lab Interpretation (test code = Abnormal 30220-7) [id number] 12:54:23 Test Item Value Reference Range Comments TSH (test code = 92126-4) 1.66 uIU/mL 0.358- 3.740 uIU/mL [id number] 12:54:23 Test Item Value Reference Range Comments Ethanol (test code = 5643-2) <3 0-10 DRUG SCREEN, [id number] 12:43:26 Test Item Value Reference Range Comments Barbiturates, urine (test code = 69346-0) NEG NEG^NE G Benzodiazepines, urine (test code = 78825-6) POS NEG ^NEG Cocaine, urine (test code = 67470-9) NEG NEG^NEG Opiates, urine (test code = 62582-6) NEG NEG^NEG Amphetamines, urine (test code = 48325-2) NEG NEG^NE G Cannabinoids (test code = 78371-5) NEG NEG^NEG Phencyclidine (PCP), urine (test code = 48690-3) NEG NEG^NEG Lab Interpretation (test code = 86309-5) Abnormal CBC WITH [id number] 12:24:24 Test Item Value Reference Range Comments WBC (test code = 6690-2) 8.20 k/uL 4.8- 10.8 k/uL RBC (test code = 789-8) 5.43 M/uL 4.5- 5.6 M/uL Hemoglobin (test code = 718-7) 14.8 g/dL 14-18 Hematocrit (calc.) (test code = 4544-3) 44.8 % 42-52 MCV (test code = 787-2) 82.5 fL 80-96 MCH (test code = 785-6) 27.3 pg 27-32 MCHC (calc.) (test code = 786-4) 33.0 g/dL 33-36 RDW (test code = 788-0) 13.2 % 11-14.4 Platelet (test code = 777-3) 303 k/uL 130- 400 k/uL Mean Platelet Volume (test code = 24739-4) 10.8 fL 7.4-1 0.4 Neutrophil (%) (test code = 09089-8) 79 % 34-74 Eosinophil (%) (test code = 713-8) 1 % 0-3 Basophil (%) (test code = 706-2) 1 % 0-1 Monocyte (%) (test code = 5905-5) 4 % 3.5-12 Lymphocyte (%) (test code = 736-9) 15 % 21-46 Immature Granulocytes (%) (test code = 39084-8) 0 % Neutrophil (#) (test code = 11000-3) 6.49 k/uL 1.5- 6.2 k/ uL Lymphocyte (#) (test code = 731-0) 1.25 k/uL 1.3- 2.9 k/uL Monocyte (#) (test code = 742-7) 0.35 k/uL 0.1- 0.6 k/uL Eosinophil (#) (test code = 711-2) 0.06 k/uL 0.0- 0.5 k/uL Basophil (#) (test code = 704-7) 0.05 k/uL 0.0- 0.1 k/uL Immature Granulocytes (#) (test code = 30733-1) 0.00 k/uL k/uL Lab Interpretation (test code = 41830-0) Abnormal COMPREHENSIVE [id number] 00:00:00 Test Item Value Reference Range Comments SODIUM (test code = SODIUM) 141 136-145 POTASSIUM (test code = POTASSIUM) 4.6 3.5-5.1 CHLORIDE (test code = CHLORIDE) 103 98-107 CARBONDIOXIDE (test code = CARBONDIOXIDE) 27.0 17-32 GLUCOSE (test code = GLUCOSE) 91 70-99 BUN (test code = BUN) 9 7-25 CREATININESERUM (test code = CREATININESERUM) 1.38 0. 7-1.3 BUN/CREATININERATIO (test code = BUN/CREATININERATIO) 7 8-28 BILIRUBIN,Total (test code = BILIRUBIN,Total) 0.2 0. 2-1.0 CALCIUM (test code = CALCIUM) 9.2 8.6-10.5 PROTEINTOTAL (test code = PROTEINTOTAL) 6.1 6.6-8.2 ALBUMIN (test code = ALBUMIN) 3.4 3.5-5.7 ALK.PHOSPHATASE (test code = ALK.PHOSPHATASE) 74 34 -104 ALT(SGPT) (test code = ALT(SGPT)) 8 7-52 AST(SGOT) (test code = AST(SGOT)) 13 11-39 GLOBULIN (test code = GLOBULIN) 2.7 1.8-4.0 A/GRATIO (test code = A/GRATIO) 1.3 0.8-2.7 GLOMERULARFILT.RATE (test code = GLOMERULARFILT.RATE) 63 >60 FREE [id number] 00:00:00 Test Item Value Reference Range Comments FREET4 (test code = FREET4) 0.73 0.61-1.12 PDF (test code = PDF) LAB LIPID [id number] 00:00:00 Test Item Value Reference Range Comments CHOLESTEROL (test code = CHOLESTEROL) 236 <200 TRIGLYCERIDES (test code = TRIGLYCERIDES) 252 10-149 HDLCHOLESTEROL (test code = HDLCHOLESTEROL) 43 40-1 99 LDL/HDLRATIO (test code = LDL/HDLRATIO) 3.33 0.00-4.9 7 LDLCHOLESTEROL,calc. (test code = 143 <100 LDLCHOLESTEROL,calc.) VLDLCHOLESTEROL,calc. (test code = 50 5-40 VLDLCHOLESTEROL,calc.) CHOLESTEROL/HDLRATIO (test code = 5.49 2.00-5.00 CHOLESTEROL/HDLRATIO) NON-HDLCHOLESTEROL (test code = NON-HDLCHOLESTEROL) 193 0-159 TSH 3RD [id number] 00:00:00 Test Item Value Reference Range Comments [id number] (test code = EYN5BPHOEUKWKZJY) 0.055 0.340-4.410 URIC [id number] 00:00:00 Test Item Value Reference Range Comments URICACID (test code = URICACID) 4.2 4.4-7.6 POCT [id number] 12:47:00 Test Item Value Reference Range Comments Glucose-POC (test code = Glucose-POC) 92 mg/dL 70- 110 mg /dL Lab - Bedside Glucose (Misc Panel)2018-02-25 12:47:00 Test Item Value Reference Range Comments Bedside Glucose (Misc Panel) 92.0 mg/dL 70-110 Met er ID: [id number] (test code = Bedside Glucose Ope rator: [id number] (Misc Panel)) POCT [id number] 10:54:00 Test Item Value Reference Range Comments Glucose-POC (test code = Glucose-POC) 101 mg/dL 70- 110 mg /dL #[id number] 15:36:00Echocardiogram W Colorflow Spectral Doppler (02/03/2018 4:03 PM EDT)SpecimenNarrativePerformed At Transthoracic Echo Report [facility], [address] [place] [address] LENA SCHULZ Exam Date: 02/03/2018 15:36 Ordering Physician: WILLARD SINGH) Age: 32Gender: M Exam Location: [facility] Referring Physician: WILLARD SINGH ([place]) : 1985 Ht (in): 73 Wt (lb): 213 Reading Physician: Willard Singh MD Bed And Breakfast Cook: ELIN Hernandez, RVS Procedure CPT: 72680 Indications: CP, history of NM-, History of myocardial infarction,Chest pain, unspecified type, Abnormal EKG ICD Codes: I25.2R07.9R94.31 Pt. History: BP: 126 / 100 HR: Rhythm: Technical Quality: Fair IMPRESSIONS Low normal left ventricular ejection fractio n estimated at 50-55%. Aortic valve appears to be sclerotic without evidence of stenosis. Trace mitral regurgitation. FINDINGS Left Ventricle Left ventricular cavity size normal. Normal left ventricular wall thickness. Low normal left ventricular ejection fraction estimated at 50-55%. No definite regional WMA.Septal E/E' ratio is 12.2 indicating normal filling pressure. Right Ventricle Right ventricle at upper limits of normal. Right Atrium Right atrial size at upper limits of normal. Left Atrium Normal left atrial size. Mitral Valve Structurally normal mitral valve. Normal function and mobility of the mitral valve leaflets. Trace mitral regurgitation. E/A reversal. No evidence for mitral valve prolapse. Aortic Valve Trileaflet aortic valve. Aortic valve appears to be sclerotic without evidence of stenosis. No aortic regurgitation. Tricuspid Valve Structurally normal tricuspid valve. Trace tricuspid regurgitation. Pulmonic Valve Structurally normal pulmonic valve. Trace pulmonic regurgitation. Pericardium Normal pericardium. Vessels Normal size aortic root and proximal ascending aorta. Normal inferior vena cava. MEASUREMENTS (Male / Female) N ormal Values 2D ECHO LV Diastolic Diameter PLA4.9 cm4.2 - 5.9 / 3LVOT Diameter2.1 cm LV Systolic Diameter PLAX3.6 cm Aortic Root Diameter 3.1 cm IVS Diastolic Thickness0.8 cm0.6 - 1.0 / 0LA Systolic Diameter LX3.9 cm3.0 - 4.0 / 2.7 - 3.8 cm LVPW DiastolicThickness 1.0 cm0.6 - 1.0 / 0LV Ejection Fraction MOD 38.4 % LV Relative Wall Thicknes0.4LV Ejection Fraction 4C A40.3 % DOPPLER AV Peak Velocity 102.0 cm/s Mitral A Point Ibrrrbfo98.6 cm/s AV Peak Gradient 4.2 mmHg Mitral E to A Ratio0.8 AV Mean Gradient 2.0 mmHg MV Deceleration Time 264.0 ms AV Velocity Time Jezwjlsr38.9 cmLV E' Septal Velocity4.8 cm/s LVOT Peak Velocity 67.7 cm/sMitral E to LV E' Septal 12.2 LVOT Peak Gradient 1.8 mmHg TR Peak Velocity 209.0 cm/s LVOT Velocity Time Uwceyu20.7 cmTR Peak Gradient 17.5 mmHg AV Area Cont Eq vti2.6 cm Right Atrial Pressure3.0 mmHg AV Area Cont Eq pk 2.3 cmPulmonary Artery Kwbkpshj53.5 mmHg Mitral E Point Nvqmjquz91.2 cm/sRight Ventricular Xtnizop34.5 mmHg Willard Singh MD (Electronically Signed) Final Date: 04 Feb 2018 08:53EM RADProcedure NoteInterface, Rad Results In - 02/04/2018 8:54 AM EDT Transthoracic Echo Report [address], [place] [address] LENA SCHULZ Exam Date: 02/03/2018 15:36 Ordering Physician: WILLARD SINGH ([facility]) Age: 32 Gender: M Exam Location: [facility] Referring Physician: [facility] 1985 Ht (in): 73 Wt (lb): 213 Reading Physician: Willard Singh MD Bed And Breakfast Cook: ELIN Hernandez, RVS Procedure CPT: 77876 Indications: CP, history of NM-, History of myocardial infarction, Chest pain, unspecified type, Abnormal EKG ICD Codes: I25.2 R07.9 R94.31 Pt. History: BP: 126 / 100 HR: Rhythm: Technical Quality: Fair IMPRESSIONS Lownormal left ventricular ejection fraction estimated at 50-55%. Aortic valve appears to be sclerotic without evidence of stenosis. Trace mitral regurgitation. FINDINGS Left Ventricle Left ventricular cavity size normal. Normal left ventricular wall thickness. Low normal left ventricular ejection fraction estimated at 50-55%. No definite regional WMA. Septal E/E' ratio is 12.2 indicating normal fillingpressure. Right Ventricle Right ventricle at upper limits of normal. Right Atrium Right atrial size at upper limits of normal. Left Atrium Normal left atrial size. Mitral Valve Structurally normal mitral valve. Normal function and mobility of the mitral valve leaflets. Trace mitral regurgitation. E/A reversal. No evidence for mitral valve prolapse. Aortic Valve Trileaflet aortic valve. Aortic valve ap pears to be sclerotic without evidence of stenosis. No aortic regurgitation. Tricuspid Valve Structurally normal tricuspid valve. Trace tricuspid regurgitation. Pulmonic Valve Structurally normal pulmonic valve. Trace pulmonic regurgitation. Pericardium Normal pericardium. Vessels Normal size aortic root and proximal ascending aorta. Normal inferior vena cava. MEASUREMENTS (Male / Female) Normal Values 2D ECHO LV Diastolic Diameter ERLINDA 4.9 cm 4.2 - 5.9 / 3 LVOT Diameter 2.1 cm LV Systolic Diameter PLAX 3.6 cm Aortic Root Diameter 3.1 cm IVS Diastolic Thickness 0.8 cm 0.6 - 1.0 / 0 LA Systolic Diameter LX 3.9 cm 3.0 - 4.0 / 2.7 - 3.8 cm LVPW Diastolic Thickness 1.0 cm 0.6 - 1.0 / 0 LV Ejection Fraction MOD 38.4 % LV Relative Wall Thicknes 0.4 LV Ejection Fraction 4C A 40.3 % DOPPLER AV Peak Velocity 102.0 cm/s Mitral A Point Velocity 70.6 cm/s AV Peak Gradient 4.2 mmHg Mitral E to A Ratio 0.8 AV Mean Gradient 2.0 mmHg MV Deceleration Time 264.0 ms AV Velocity Time Integral 16.9 cm LV E' Septal Ve locity 4.8 cm/s LVOT Peak Velocity 67.7 cm/s Mitral E to LV E' Septal 12.2 LVOT Peak Gradient 1.8 mmHg TR Peak Velocity 209.0 cm/s LVOT Velocity Time Integr 12.7 cm TR Peak Gradient 17.5 mmHg AV Area Cont Eq vti 2.6 cm Right Atrial Pressure 3.0 mmHg AV Area Cont Eq pk 2.3 cm Pulmonary Artery Systolic 20.5 mmHg Mitral E Point Velocity 58.2 cm/s Right Ventricular Systoli 20.5 mmHg Willard Singh MD (Electronically Signed) Final Date: 04 Feb 2018 08:53Performing OrganizationAddressCity/State/ZipcodePhone NumberC [id number] [facility], [place] [address]Cyn - Helicobacter pylori Urease [id number] 13:18:00 Test Item Value Reference Range Comments Helicobacter pylori Urease Test (test code = Negative 68626-8) Lab - Bedside Glucose (Misc Panel)2018-01-27 12:30:00 Test Item Value Reference Range Comments Bedside Glucose (Misc Panel) 128.0 mg/dL 70-110 Met er ID: [id number] (test code = Bedside Glucose Ope rator: 712109 (Misc Panel)) Lab - [id number] 14:09:00 Test Item Value Reference Range Comments Lipase (test code = 3040-3) 28 U/L 22-51 Lab - Troponin [id number] 14:09:00 Test Item Value Reference Range Comments Troponin I (test code = 44744-1) < 0.03 ng/mL 0.00-0.49 Lab - Total [id number] 14:09:00 Test Item Value Reference Range Comments Total Protein (test code = 2885-2) 7.3 g/dL 6.1-8.0 Lab - Total Creatine [id number] 14:09:00 Test Item Value Reference Range Comments Total Creatine Kinase (test code = 2157-6) 72 U/L 22-26 9 Lab - Total [id number] 14:09:00 Test Item Value Reference Range Comments Total Bilirubin (test code = 0.35 mg/dL 0.30-1.20 [address]andon ples taken from patients 1975-2) who have taken N aproxen have shown spurious e levation in Total Bilirubin levels. A metabolite of Na proxen (O-Desmethylnapr oxen) has been shown to in terfere with the Guillermina-Jaron galan method for measuring To christiano Bilirubin. Lab - Sodium [id number] 14:09:00 Test Item Value Reference Range Comments Sodium Level (test code = 2951-2) 138 mmol/L 135-153 Lab - Potassium [id number] 14:09:00 Test Item Value Reference Range Comments Potassium Level (test code = 2823-3) 4.2 mmol/L 3.5-5.3 Lab - Glucose [id number] 14:09:00 Test Item Value Reference Range Comments Glucose Level (test code = 2345-7) 81 mg/dL 70-110 Lab - [id number] 14:09:00 Test Item Value Reference Range Comments Globulin (test code = 74386-2) 3.4 g/dL 2.3-3.5 Lab - Estimated GFR (MDRD)2017-12-25 14:09:00 Test Item Value Reference Range Comments Estimated GFR (MDRD) (test code > 60 60-100 eGFR by MDRD equation. Units = 09943-8) mL/min./1.73m sq . Less than 60 suggests signifi cant renal disease. Lab - Estimated Creatinine Clearance [id number] 14:09:00 Test Item Value Reference Range Comments Estimated Creatinine 74.2 ML/MIN >60 Estimated c reatinine Clearance Calc (test code = luis [place] calculated by Estimated Creatinine Cockcroft-G deisy method. Clearance Calc) Lab - [id number] 14:09:00 Test Item Value Reference Range Comments Creatinine (test code = 2160-0) 1.6 mg/dL 0.5-1.2 Lab - Creatine Kinase MB Relative [id number] 14:09:00 Test Item Value Reference Range Comments Creatine Kinase MB Relative 1.9 0.0-2.5 CK I ndex should not be used for Index (test code = Creatine inte rpretation when the total CK Kinase MB Relative Index) activi ty remains within the Reference Interv al due to the potential of fal sely elevated values. Lab - Creatine Kinase [id number] 14:09:00 Test Item Value Reference Range Comments Creatine Kinase MB (test code = Creatine Kinase 1.34 ng/mL 0.6-6.3 MB) Lab - Chloride [id number] 14:09:00 Test Item Value Reference Range Comments Chloride Level (test code = 2075-0) 101 mmol/L 96-112 Lab - Carbon Dioxide [id number] 14:09:00 Test Item Value Reference Range Comments Carbon Dioxide Level (test code = 8-9) 31 mmol/L 23-33 Lab - Calculated [id number] 14:09:00 Test Item Value Reference Range Comments Calculated Osmolality (test code = Calculated 276 26 6-308 Osmolality) Lab - Calcium [id number] 14:09:00 Test Item Value Reference Range Comments Calcium Level (test code = 79124-0) 9.2 mg/dL 8.7-10.7 Lab - Blood Urea [id number] 14:09:00 Test Item Value Reference Range Comments Blood Urea Nitrogen (test code = 3094-0) 17 mg/dL 7-22 Lab - BUN/Creatinine Rdpdl0918-04-14 14:09:00 Test Item Value Reference Range Comments BUN/Creatinine Ratio (test code = 3097-3) 11 15-24 Lab - Aspartate Amino Transf (AST/SGOT)2017-12-25 14:09:00 Test Item Value Reference Range Comments Aspartate Amino Transf (AST/SGOT) (test code = 17 U/L 1 2-45 48837-9) Lab - Anion [id number] 14:09:00 Test Item Value Reference Range Comments Anion Gap (test code = 82868-9) 6 mmol/L 5-15 Lab - Alkaline Koltmlwmjdt5283-47-91 14:09:00 Test Item Value Reference Range Comments Alkaline Phosphatase (test code = 6768-6) 71 U/L 37-107 Lab - Albumin/Globulin [id number] 14:09:00 Test Item Value Reference Range Comments Albumin/Globulin Ratio (test code = 1759-0) 1.1 1.1- 1.8 Lab - [id number] 14:09:00 Test Item Value Reference Range Comments Albumin (test code = 1751-7) 3.9 g/dL 3.5-5.2 Lab - Alanine Aminotransferase (ALT/SGPT)2017-12-25 14:09:00 Test Item Value Reference Range Comments Alanine Aminotransferase (ALT/SGPT) (test code = 17 U/L 40 1743-4) Lab - White Blood [id number] 14:09:00 Test Item Value Reference Range Comments White Blood Count (test code = 87948-6) 7.4 K/mm3 4.5-13.0 Lab - Red Cell Distribution [id number] 14:09:00 Test Item Value Reference Range Comments Red Cell Distribution Width (test code = 788-0) 20.7 % 11.0-15.0 Lab - Red Blood [id number] 14:09:00 Test Item Value Reference Range Comments Red Blood Count (test code = 789-8) 4.78 M/mm3 3.10-5.80 Lab - Platelet [id number] 14:09:00 Test Item Value Reference Range Comments Platelet Count (test code = 777-3) 275 K/mm3 140-400 Lab - Neutrophils (%) (Auto)2017-12-25 14:09:00 Test Item Value Reference Range Comments Neutrophils (%) (Auto) (test code = 770-8) 65.0 % 42.2- 75.2 Lab - Neutrophils # (Auto)2017-12-25 14:09:00 Test Item Value Reference Range Comments Neutrophils # (Auto) (test code = 751-8) 4.8 K/mm3 1.8-8.0 Lab - Monocytes (%) (Auto)2017-12-25 14:09:00 Test Item Value Reference Range Comments Monocytes (%) (Auto) (test code = 5905-5) 7.0 % 1.7-9. 3 Lab - Monocytes # (Auto)2017-12-25 14:09:00 Test Item Value Reference Range Comments Monocytes # (Auto) (test code = WYO9627) 0.5 K/mm3 0-0.9 Lab - Mean Platelet Dxbikt7946-07-18 14:09:00 Test Item Value Reference Range Comments Mean Platelet Volume (test code = 53917-6) 8.6 fL 6.0-9 .5 Lab - Mean Corpuscular Rpkyvt3429-82-60 14:09:00 Test Item Value Reference Range Comments Mean Corpuscular Volume (test code = 787-2) 79.7 fL 78-1 00 Lab - Mean Corpuscular Hemoglobin Cafknyp6275-12-70 14:09:00 Test Item Value Reference Range Comments Mean Corpuscular Hemoglobin Concent (test code = 32.5 g/dl 31-36 786-4) Lab - Mean Corpuscular Omhpagtztn0140-56-22 14:09:00 Test Item Value Reference Range Comments Mean Corpuscular Hemoglobin (test code = 785-6) 25.9 pg 25-35 Lab - Lymphocytes (%) (Auto)2017-12-25 14:09:00 Test Item Value Reference Range Comments Lymphocytes (%) (Auto) (test code = 736-9) 24.6 % 20.5- 51.1 Lab - Lymphocytes # (Auto)2017-12-25 14:09:00 Test Item Value Reference Range Comments Lymphocytes # (Auto) (test code = 731-0) 1.8 K/mm3 1.2-5.2 Lab - Ouvhvrurqd2554-75-58 14:09:00 Test Item Value Reference Range Comments Hemoglobin (test code = 718-7) 12.4 G/DL 12.0-16.9 Lab - Wuxfierrol5717-59-56 14:09:00 Test Item Value Reference Range Comments Hematocrit (test code = Hematocrit) 38.1 % 36.0-49.0 Lab - Eosinophils (%) (Auto)2017-12-25 14:09:00 Test Item Value Reference Range Comments Eosinophils (%) (Auto) (test code = 713-8) 2.1 % 0-10 Lab - Eosinophils # (Auto)2017-12-25 14:09:00 Test Item Value Reference Range Comments Eosinophils # (Auto) (test code = 711-2) 0.2 K/mm3 0-0.6 Lab - Basophils (%) (Auto)2017-12-25 14:09:00 Test Item Value Reference Range Comments Basophils (%) (Auto) (test code = 52238-2) 1.3 % 0-3.0 Lab - Basophils # (Auto)2017-12-25 14:09:00 Test Item Value Reference Range Comments Basophils # (Auto) (test code = 704-7) 0.1 K/mm3 0.0-0.2 Assessments Condition Name Status Diagnosis Date Treating Clinici an - Type 1 diabetes mellitus with diabetic Active Ojebuoboh, [place] polyneuropathy E10.42 - Radiculopathy, lumbar region M54.16 Active O[place]uoboh, [place] - Nicotine dependence, cigarettes, Active O[place]ebuoboh, [place] uncomplicated F17.210 - Type 1 diabetes mellitus with other Active Ojebuoboh, [place] specified complication E10.69 - Type 1 diabetes mellitus with other Active Ojebuoboh, [place] specified complication E10.69 - Type 1 diabetes mellitus with other Active Ojebuoboh, [place] specified complication E10.69 - Essential (primary) hypertension I10 Active Ojebuoboh, [place] Encounters Start End Encounter Admission Attending Care Care Encounter ID Date/Time Date/Time Type Type Clinicians Facility Department 2017-05-30 Inpatient ER [facility] [id number] 07:31:24 [id number] 2017-05-29 Inpatient ER ЕЛЕНА [facility] [id number] 65_2 00:00:00 WILMER [id number] 2020-05-13 2020-05-13 [id number] 00:00:00 00:00:00 PA PA 2020-03-14 2020-03-14 [id number] 00:00:00 00:00:00 PA PA 2020-02-27 2020-02-28 E 1 Hui Barrientos [facility] [id number] 23:34:11 06:59:00 Hui Barrientos 2020-02-11 2020-02-11 [facility] OC [id number] 00:00:00 00:00:00 PA 2020-01-27 2020-01-27 [facility] [id number] 00:00:00 00:00:00 PA PA 2020-01-22 2020-01-22 [facility] 32 [id number] 00:00:00 00:00:00 PA PA 2020-01-18 2020-01-18 [facility] 32 [id number] 00:00:00 00:00:00 PA PA 2020-01-15 2020-01-15 [facility] 32 [id number] 00:00:00 00:00:00 PA PA 2019-12-21 2019-12-21 [facility] 32 [id number] 00:00:00 00:00:00 PA PA 2019-10-27 2019-10-27 [facility] 31 [id number] 00:00:00 00:00:00 PA PA 2019-10-08 2019-10-09 E 1 Alfred Romero [facility] 2 [id number] 15:43:35 02:44:00 Alfred Romero 2019-09-23 2019-09-23 Outpatient [facility] [id number] 00:00:00 00:00:00 [id number] 2019-06-05 2019-06-16 Inpatient [facility] [id number] 18:15:00 16:41:00 2019-06-05 2019-06-16 Inpatient U SIMMS, [facility] [id number] 18:15:00 16:41:00 NATALIE 2019-05-28 2019-06-05 Inpatient [facility] [id number] 11:09:25 16:30:00 2019-05-28 2019-06-05 Inpatient X AL, [facility] [id number] 11:09:25 16:30:00 VEERADAGOAR 2019-05-01 2019-05-01 [facility] [id number] 00:00:00 00:00:00 PA PA 2019-03-31 2019-03-31 [facility] [id number] 00:00:00 00:00:00 PA PA 2019-02-19 2019-02-19 [facility] OC [id number] 00:00:00 00:00:00 PA 2018-11-20 2018-11-20 [facility] [id number] 00:00:00 00:00:00 PA PA 2018-11-04 2018-11-04 [facility] [id number] 00:00:00 00:00:00 PA PA 2018-06-09 2018-06-09 [facility] [id number] 00:00:00 00:00:00 2018-05-20 2018-05-20 [facility] [id number] 00:00:00 00:00:00 PA PA 2018-05-16 2018-05-16 [facility] [id number] 00:00:00 00:00:00 PA PA 2018-05-12 2018-05-12 [facility] [id number] 00:00:00 00:00:00 PA PA 2018-05-12 2018-05-12 [facility] [id number] 00:00:00 00:00:00 PA PA 2018-04-28 2018-04-28 [facility] [id number] 00:00:00 23:59:00 [id number] 2018-04-09 2018-04-09 [facility] [id number] 00:00:00 00:00:00 2018-04-01 2018-04-01 [facility] [id number] 00:00:00 00:00:00 2018-03-18 2018-03-18 [facility] [id number] 00:00:00 00:00:00 [id number] 2018-02-27 2018-02-27 [facility] [id number] 00:00:00 00:00:00 2018-02-25 2018-02-25 Outpatient VERONA Loera VERONA [id number] 10:13:00 14:26:00 Daron 2018-02-25 2018-02-25 Outpatient [facility] [id number] 14:00:45 14:00:51 [id number] 2018-02-25 2018-02-25 [facility]patient [facility] [id number] 09:18:38 09:18:49 [id number] 2018-02-25 2018-02-25 [facility] [id number] 00:00:00 00:00:00 [id number] 2018-02-25 2018-02-25 [facility] [id number] 00:00:00 00:00:00 2018-02-25 2018-02-25 [facility] [id number] 00:00:00 00:00:00 2018-02-18 2018-02-18 [facility]patient [facility] [id number] 00:00:00 00:00:00 [id number] 2018-02-03 2018-02-04 [facility] [id number] 15:30:03 23:59:00 2018-01-27 2018-01-27 Outpatient UR VERONA Loera [id number] 11:43:00 14:29:00 Daron 2018-01-27 2018-01-27 [facility] [id number] 13:59:55 14:00:02 [id number] 2018-01-27 2018-01-27 [facility] [id number] 09:56:03 09:56:13 [id number] 2018-01-27 2018-01-27 [facility]patient [facility] [id number] 00:00:00 00:00:00 [id number] 2018-01-24 2018-01-24 [facility] [id number] 00:00:00 00:00:00 2018-01-23 2018-01-23 [facility]patient [facility] [id number] 08:52:53 09:50:25 [id number] 2018-01-23 2018-01-23 [facility]patient [facility] [id number] 00:00:00 00:00:00 [id number] 2018-01-15 2018-01-15 [facility] [id number] 09:08:21 09:46:40 [id number] 2018-01-15 2018-01-15 [facility] [id number] 00:00:00 00:00:00 [id number] 2018-01-10 2018-01-10 Outpatient RYANN Kendrick VERONA RHOADES [id number] 08:30:00 08:30:00 Jonatan 2018-01-08 2018-01-08 [facility] [id number] 09:21:22 10:20:30 [id number] 2018-01-08 2018-01-08 [facility] [id number] 00:00:00 00:00:00 [id number] 2018-01-02 2018-01-02 Outpatient [facility] [place] [id number] 09:25:54 10:31:35 [id number] 2017-12-25 2017-12-25 Outpatient ER VERONA Chavez [id number] 13:49:00 17:55:00 Hervchintan 2017-12-25 2017-12-25 [facility] [id number] 00:00:00 00:00:00 2017-05-29 2017-06-04 Inpatient [facility] [id number] 18:04:00 12:28:00 WILMER [id number] Payers Payer Name Policy Policy Number Effective Expiration Type Date Date MEDICAID [place] [employer] [id number] 2017 00:00:00 TRILLIUMTRILLIUMxxxxxxxxxxEffective xxxxxxxxxx for all datesOTHER MANAGED TRILLIUM [id number] Plan of Treatment Planned Activity Planned Date Details Comments Future Scheduled Test [code = ] Future Scheduled Test [code = ] Future Scheduled Test [code = ] Future Scheduled Test [code = ] Future Scheduled Test [code = ] Future Scheduled Test [code = ] Future Scheduled Test [code = ] Future Scheduled Test [code = ] Future Scheduled Test [code = ] Future Scheduled Test [code = ] Future Scheduled Test [code = ] Future Scheduled Test [code = ] Instructions AttachmentsThe following attachm ents cannot be sent through Care Everywhere.Depression (INDONESIAN)D epression Affects Your Mind and Body (INDONESIAN)Depression: Tips to Hel p Yourself (INDONESIAN) Social History Social Habit Start Date Stop Date Comments Cigarettes smoked current (pack per 2019-06-15 00:00:00 00:00:00 day) - Reported Cigarette pack-years 2019-06-15 00:00:00 2019-06-15 00:00:00 Alcohol intake 2019-06-15 00:00:00 2019-06-15 00:00:00 Tobacco Comment 2019-05-29 00:00:00 2019-05-29 00:00:00 Alcohol Comment 2019-05-29 00:00:00 2019-05-29 00:00:00 Tobacco smoking status ARIS 2018-01-23 00:00:00 2018-01-23 00:00 :00 Smoking Status Start Date Stop Date History of tobacco use 1995 00:00:00 Current every day smoker 2019-06-15 00:00:00 2019-06-15 00:0 0:00 Vital Signs Vital Name Observation Time Observation Value Comments height 2020-02-11 14:30:00 73 [in_us] weight 2020-02-11 14:30:00 181 [lb_av] bmi 2020-02-11 14:30:00 23.88 kg/m2 heart rate 2020-02-11 14:30:00 113 /min blood pressure systolic 2020-02-11 14:30:00 145 mm[Hg] blood pressure diastolic 2020-02-11 14:30:00 95 mm[Hg] height 2018-11-20 13:45:00 73 [in_us] weight 2018-11-20 13:45:00 194.6 [lb_av] bmi 2018-11-20 13:45:00 25.67 kg/m2 heart rate 2018-11-20 13:45:00 110 /min blood pressure systolic 2018-11-20 13:45:00 137 mm[Hg] blood pressure diastolic 2018-11-20 13:45:00 100 mm[Hg] Systolic blood pressure 2019-06-16 08:00:00 143 mm[Hg] Diastolic blood pressure 2019-06-16 08:00:00 89 mm[Hg] Heart rate 2019-06-16 08:00:00 96 /min Body temperature 2019-06-16 08:00:00 36.83 Mignon Respiratory rate 2019-06-16 08:00:00 13 /min Oxygen saturation in Arterial blood by 2019-06-15 07:45:00 100 % Pulse oximetry Body weight 2019-06-14 08:00:00 87.68 kg BMI 2019-06-14 08:00:00 25.50 kg/m2 Body height 2019-06-05 18:00:00 185.4 cm Systolic blood pressure 2019-06-05 08:00:00 115 mm[Hg] Diastolic blood pressure 2019-06-05 08:00:00 78 mm[Hg] Heart rate 2019-06-05 08:00:00 87 /min Body temperature 2019-06-05 08:00:00 36.33 Mignon Respiratory rate 2019-06-05 08:00:00 20 /min Body height 2019-05-29 14:35:00 185.4 cm Body weight 2019-05-29 14:35:00 79.198 kg BMI 2019-05-29 14:35:00 23.04 kg/m2 Oxygen saturation in Arterial blood by 2019-05-29 14:35:00 100 % Pulse oximetry SYSTOLIC BLOOD PRESSURE 2018-02-25 14:00:00 132 mm[Hg] DIASTOLIC BLOOD PRESSURE 2018-02-25 14:00:00 91 mm[Hg] Heart Rate 2018-02-25 14:00:00 75 /min Respiratory Rate 2018-02-25 14:00:00 16 /min O2 % BldC Oximetry 2018-02-25 14:00:00 97 % Body Temperature 2018-02-25 11:28:00 97.6 [degF] HEIGHT 2018-02-25 10:46:00 185.4 cm WEIGHT 2018-02-25 10:46:00 96.3 kg Weight Measured 2018-02-25 10:46:00 212 SYSTOLIC BLOOD PRESSURE 2018-01-27 14:06:00 134 mm[Hg] DIASTOLIC BLOOD PRESSURE 2018-01-27 14:06:00 90 mm[Hg] Heart Rate 2018-01-27 14:06:00 74 /min Respiratory Rate 2018-01-27 14:06:00 16 /min O2 % BldC Oximetry 2018-01-27 14:06:00 100 % Body Temperature 2018-01-27 13:56:00 98.2 [degF] HEIGHT 2018-01-27 12:14:00 185.4 cm WEIGHT 2018-01-27 12:14:00 93.3 kg Weight Measured 2018-01-27 12:14:00 205 SYSTOLIC BLOOD PRESSURE 2017-12-25 17:09:00 144 mm[Hg] DIASTOLIC BLOOD PRESSURE 2017-12-25 17:09:00 98 mm[Hg] Heart Rate 2017-12-25 17:09:00 77 /min Respiratory Rate 2017-12-25 17:09:00 16 /min O2 % BldC Oximetry 2017-12-25 17:09:00 97 % HEIGHT 2017-12-25 13:51:00 185.4 cm WEIGHT 2017-12-25 13:51:00 93.44 kg Weight Measured 2017-12-25 13:51:00 206.00 [lb_av] Body Temperature 2017-12-25 13:51:00 96.5 [degF] BMI (Body Mass Index) 2017-12-25 13:51:00 27.1 kg/m2 Hospital Discharge Instructions AttachmentsThe following attachments cannot be sent through Care Everywhere.Depression (INDONESIAN)Depression Affects Your Mind and Body (INDONESIAN)Depression: Tips to Help Yourself (INDONESIAN)documented in this encounter Additional Discharge Instructions Resume your omeprazole 40 mg once daily when you return to [facility]. Continue diet as tolerated. Avoid foods that you know may cause your symptoms. Not lay flatwithin 1-2 hours of eating. Follow-up with the provider at [facility] when you return to discuss today'svisit and to see if any further workup or management is indicated. Her to the emergency department immediately should signs and symptoms of worsening state arise as discussed in visit. Instruction/Education Provided Chest Pain (ED) Gastroesophageal Reflux Disease (ED)
== END 2020-07-27 06:30 | disposition left against medical advice (07) ==
LOC: ER 00:26
DX: R13.10 Dysphagia, unspecified (principal); R59.0 Localized enlarged lymph nodes; R09.89 Other specified symptoms and signs involving the circulatory and respiratory systems; R00.0 Tachycardia, unspecified; I10 Essential (primary) hypertension; E10.9 Type 1 diabetes mellitus without complications; Z53.20 Procedure and treatment not carried out because of patient's decision for unspecified reasons
CPT/HCPCS: 70360; 87880; 99281

== ENCOUNTER 2020-07-27 07:39 | Emergency (ER) | payer MEDICAID ==
[2020-07-27 07:47] VITALS: BP 197/91
[2020-07-27 09:37] LABS: APPEARANCE,URINE CLEAR; BILIRUBIN,URINE NEGATIVE (NEGATIVE); COLOR,URINE COLORLESS; GLUCOSE, URINE >=500 mg/dL (NEGATIVE); KETONES,URINE TRACE mg/dL (NEGATIVE); LEUKOCYTE ESTERASE,URINE NEGATIVE (NEGATIVE); NITRITE,URINE NEGATIVE (NEGATIVE); PROTEIN,URINE 100 mg/dL (NEGATIVE); UROBILINOGEN,URINE NEGATIVE mg/dL (<2.0)
[2020-07-27] MEDS ORDERED: NORMAL SALINE 1000 ML 1,000 ML IV ONE ×2 (09:40→11:57)
--- NOTE | 2020-07-27 09:52 | ER Document Report ---
ED Blood Sugar Problem - General Chief Complaint: High Blood Sugar Stated Complaint: DIFFICULTY SWALLOWING/HIGH BLOOD SUGAR Time Seen by Provider: 07/27/20 09:22 Notes: HPI: Patient is a 34-year-old insulin-dependent diabetic who presents today stating some elevated blood sugars as well as a long history of having some esophageal stricture. Patient states he is still able to drink but has some discomfort. He states he has seen Dr. Rodriguez in the past who did perform an endoscopy showing the stricture. No obvious diverticulum or webs noted according the patient. Patient has had no vomiting. No excessive weight loss. He does not have a primary care physician. ROS: See HPI All other review of systems reviewed and otherwise negative Reviewed vital signs and nursing note as charted by RN. PHYSICAL EXAM: CONSTITUTIONAL: Alert and oriented and responds appropriately to questions. Well-appearing; well-nourished HEAD: Normocephalic; atraumatic EYES: PERRL; Sclerae non-icteric ENT: Normal nose; no rhinorrhea; moist mucous membranes; pharynx without lesions noted NECK: Supple without meningismus; non-tender; no cervical lymphadenopathy, no masses CARD: Regular rate and rhythm; no murmurs; symmetric distal pulses RESP: Normal chest excursion without splinting or tachypnea; breath sounds clear and equal bilaterally ABD/GI: Normal bowel sounds; non-distended; soft, non-tender to palpation of all 4 quadrants of the abdomen BACK: The back appears normal and is non-tender to palpation EXT: Normal ROM in all joints; non-tender to palpation; no edema SKIN: No acute lesions noted NEURO: CN 2-12 intact; 5/5 bilateral upper and lower extremity strength with sensation intact to light touch PSYCH: The patient's mood and manner are appropriate. Grooming and personal hygiene are appropriate. TRAVEL OUTSIDE OF THE [place] IN LAST 30 DAYS: No - Related Data Allergies/Adverse Reactions: No Known Allergies Allergy (Verified 07/27/20 07:58) Home Medications: insulin. amlodipine Past Medical History - Social History Smoking Status: Current Every Day Smoker Chew tobacco use (# tins/day): No Frequency of alcohol use: None Drug Abuse: None Family History: Reviewed & Not Pertinent, DM, Hypertension Patient has homicidal ideation: No - Past Medical History Cardiac Medical History: Reports: Hx Heart Attack - May 2017., Hx Hypertension Denies: Hx Congestive Heart Failure, Hx DVT, Hx Hypercholesterolemia, Hx Pulmonary Embolism Pulmonary Medical History: Reports: Hx Asthma - as child Denies: Hx COPD, Hx Sleep Apnea Neurological Medical History: Reports: Hx Migraine. Denies: Hx Seizures Endocrine Medical History: Reports: Hx Diabetes Mellitus Type 1. Denies: Hx Diabetes Mellitus Type 2, Hx Hyperthyroidism, Hx Hypothyroidism Renal/ Medical History: Denies: Hx Peritoneal Dialysis GI Medical History: Denies: Hx Cirrhosis, Hx Gastroesophageal Reflux Disease, Hx Hepatitis Musculoskeletal Medical History: Denies Hx Arthritis, Denies Hx Gout Skin Medical History: Denies Hx Eczema, Denies Hx Psoriasis Psychiatric Medical History: Reports: Hx Anxiety, Hx Bipolar Disorder, Hx Dep ression, Hx Schizoaffective Disorder, Hx Schizophrenia Infectious Medical History: Denies: Hx C-Diff, Hx Hepatitis, Hx MRSA Past Surgical History: Reports: Hx Appendectomy, Hx Oral Surgery - wisdom teeth, Other - [place] teeth extraction - Immunizations Hx Diphtheria, Pertussis, Tetanus Vaccination: Yes Hx Pneumococcal Vaccination: 09/16/00 Physical Exam - Vital signs Vitals: Temp Pulse Resp BP Pulse Ox 98.5 F 107 H 17 197/91 H 100 07/27/20 07:44 07/27/20 07:44 07/27/20 07:44 07/27/20 07:44 07/27/20 07:44 Course - Re-evaluation Re-evalutation: 07/27/20 09:52 Given the above history and physical we will obtain basic labs, provide fluids, obtain a VBG, and reassess. Given that the patient is able to swallow liquids with this problem being for "many months", I do not believe acute G-tube placement is an absolute necessity at this moment. Patient has had no vomiting and denies any current pain. I would like to check for the possibility of diabetic ketoacidosis or severe electrolyte abnormality given the patient's initial blood sugar. 07/27/20 11:32 Labs as recorded. Anion gap is 11. Glucose is pending. 07/27/20 12:41 Patient still has no pain. No vomiting here. He has drank 2 sodas/diet sylvester ananda. We have set up an outpatient walk-in appointment tomorrow at a local primary care physician. He was discharged from his previous primary care physician Dr. Curran secondary to "noncompliance". We have provided 10 units of insulin and 2 L of fluid. Patient understands the importance of outpatient follow-up. I have explained to him strict return precautions as well as the importance of following up tomorrow morning to the primary care physician with possible outpatient referral to the general surgery team and better glucose management. - Vital Signs Vital signs: Temp Pulse Resp BP Pulse Ox 98.5 F 107 H 17 197/91 H 100 07/27/20 07:58 07/27/20 07:44 07/27/20 07:44 07/27/20 07:44 07/27/20 07:44 - Laboratory Result Diagrams: 07/27/20 10:32 07/27/20 10:32 Laboratory results interpreted by me: 07/27/20 07/27/20 07/27/20 09:22 10:32 10:32 Hgb 12.7 L RDW 15.0 H Lymph % (Auto) 9.6 L Seg Neutrophils % 85.6 H Sodium 129.9 L Potassium 5.3 H Chloride 94 L Creatinine 1.51 H Est GFR (MDRD) Non-Af 53 L Glucose 616 H* POC Glucose Urine Protein 100 H Urine Glucose (UA) >=500 H Urine Ketones TRACE H 07/27/20 11:46 Hgb RDW Lymph % (Auto) Seg Neutrophils % Sodium Potassium Chloride Creatinine Est GFR (MDRD) Non-Af Glucose POC Glucose > 550 H* Urine Protein Urine Glucose (UA) Urine Ketones Discharge - Discharge Clinical Impression: Hyperglycemia Condition: Good Disposition: HOME, SELF-CARE Additional Instructions: Please make sure that you follow-up with the primary care physician tomorrow. Please take your insulin as directed. Please also tell the primary care physician you can sounds as I have provided a follow-up for possible general surgery. Referrals: GARTH CASAS MD [ACTIVE STAFF] - Follow up as needed
[2020-07-27 11:05] LABS: ABSOLUTE BASOPHILS # (AUTO) 0.1 10^3/uL (0.0-0.2); HEMATOCRIT 38.7 % (37.9-51.0); MONOCYTES % (AUTO) 3.2 % (3-13); TOTAL CELLS COUNTED % (AUTO) 100 %
[2020-07-27 11:16] LABS: ABSOLUTE LYMPHOCYTES (AUTO) 0.7 10^3/uL (0.5-4.7); ABSOLUTE MONOCYTES (AUTO) 0.2 10^3/uL (0.1-1.4); ABSOLUTE NEUT (AUTO) 6.3 10^3/uL (1.7-8.2); BASOPHILS % (AUTO) 1.4 % (0-2); EOSINOPHILS % (AUTO) 0.2 % (0-6); HEMOGLOBIN 12.7 g/dL (13.5-17.0); LYMPHOCYTES % (AUTO) 9.6 % (13-45); MEAN CORPUSCULAR HEMOGLOBIN 27.4 pg (27.0-33.4); MEAN CORPUSCULAR HGB CONC 32.9 g/dL (32.0-36.0); PLATELET COUNT 351 10^3/uL (150-450); RED BLOOD COUNT 4.65 10^6/uL (4.35-5.55); SEGMENTED NEUTROPHILS % (AUTO) 85.6 % (42-78); WHITE BLOOD COUNT 7.4 10^3/uL (4.0-10.5)
[2020-07-27 11:21] LABS: MEAN CORPUSCULAR VOLUME 83 fl (80-97)
[2020-07-27 11:25] LABS: ALBUMIN 4.1 g/dL (3.5-5.0); ALKALINE PHOSPHATASE 125 U/L (38-126); ANION GAP 11 (5-19); ASPARTATE AMINO TRANSFERASE 21 U/L (17-59); BILIRUBIN,DIRECT 0.3 mg/dL (0.0-0.4); BILIRUBIN,TOTAL 0.5 mg/dL (0.2-1.3); BLOOD UREA NITROGEN 16 mg/dL (7-20); CALCIUM 9.3 mg/dL (8.4-10.2); CARBON DIOXIDE 25 mmol/L (22-30); CHLORIDE 94 mmol/L (98-107); POTASSIUM 5.3 mmol/L (3.6-5.0); TOTAL PROTEIN 6.9 g/dL (6.3-8.2)
[2020-07-27 11:35] LABS: GLUCOSE 616 mg/dL (75-110)
[2020-07-27 11:50] LABS: VENOUS BLOOD HCO3 24.1 mmol/L (20-32); VENOUS BLOOD PCO2 46.3 mmHg (35-63); VENOUS BLOOD PH 7.33 (7.30-7.42)
[2020-07-27] MEDS ORDERED: INSULIN REG, HUMAN 100 UNIT/ML 3 ML VIAL (PYX) IV ONE (11:58)
--- OUTSIDE RECORDS SUMMARY | 2020-07-28 18:27 | XMS REPORT ---
:1985 [facility] [address] [place] [address] Care Team Providers Name Role Phone [facility] Primary Care Physi nadiya Unavailable TOMEKA CHRISTIANSEN Attending Clinician Unavailable MD Divya Barrientos Attending Clinician Unavailable MD Divya Barrietnos Attending Clinician Unavailable Navjot Romero Attending Clinician Unavailable Navjot Romero Attending Clinician Unavailable TISHA SIMMS Attending Clinician Unavailable NELIA Attending Clinician Unavailable Sheyla Loera Attending Clinician Unavailable Cierra Marks Attending Clinician Unavailable Eleanor Chavez Attending Clinician Unavailable TOMEKA CHRISTIANSEN Admitting Clinician Unavailable Navjot Romero Admitting Clinician Unavailable TISHA SIMMS Admitting Clinician Unavailable NELIA Admitting Clinician Unavailable Allergies, Adverse Reactions, Alerts [...] reactions 00:00: Products 00 Shellfish Propensity Active Hives 2017-0 Derived to adverse 2-13 reactions 00:00: to drug 00 Shellfish Propensity Active High Hives 0 Derived to adverse 2-13 reactions 00:00: 00 Iodinated Allergy Active Rash Contrast- Oral and IV Dye SEAFOOD Allergy Active Rash Medications Ordered Filled Start Stop Current Ordering Indication Dosage Frequency Signature Comments Components Medication Medication Date Date Medication? Clinician (SIG) Name Name hydrOXYzine 2018-09 Yes 25mg Q.[id number] Take 1 C ap (VISTARIL) 0-01 [id number] by mouth 25 mg Oral 00:00: 3D [...] Diastolic or Heart Rate < 80.
insulin 2019- No Subcutaneo lispro 06-14 us, FOUR sensitivity [...] administra tion site.&nbsp ;[facility]
cyclobenzap 2018- No 10mg 10 mg, rine [...] First dose (after last modificati on) on Sat06/10/19 at 1200, For 1080 doses
A dminister [...] of acetaminop hen in 24 hours.
sodium No 10mL Q.23136180 10 mL, chloride 06-09 1001 [id number] Intravenou 0.9 % flush 22:00: 02:58 3D [...] ;[facility]
insulin 2018- No 7U [...] Disposal - [facility]
hydrOXYzine 2019- No 25mg Q.74966126 25 mg, (VISTARIL) 06-06 [id number] Oral, capsule 25 14:42: 14:41 3D THREE [...] 2018- No 40U QD Give 40 glargine 06-06 10- Units (LANTUS) 00:00: 23:59 subcutaneo 100 unit/mL 00 :00 us daily Subcutaneou for 30 s Solution days. citalopram No 40mg QD Take 1 Tab (CELEXA) 40 06-06 10-01 by mouth mg Oral 00:00: 00:00 daily for Tablet 00 :00 30 days. insulin 2018- No 35U QD Give 35 glargine 06-06 09-20 Units (LANTUS) 00:00: 00:00 subcutaneo 100 unit/mL 00 :00 us daily Subcutaneou for 30 s Solution days. sucralfate No 1g Q.91436818 1 g, Oral , (CARAFATE) 06-05 [id number] THREE tablet 1 g 22:00: 21:59 3D [...] ll Risk Medication
gabapentin 2019- No 200mg Q.34751152 200 mg, (NEURONTIN) 06-05 [id number] Oral, capsule 200 22:00: 21:59 3D THREE [...]
Ins ulin Sensitivit y Factor: 40 insulin 2019- No 15U 15 Units, lispro 06-05 10-13 Subcutaneo (HumaLOG) 18:00: 17:59 us, THREE 100 unit/mL 00 :00 TIMES A injection DAY WITH 15 Units MEALS, First dose (after last modificati on) on Sat06/05/19 at 1800, For 69 doses
M ed Disposal - [facility]
mirtazapine 2019- No 45mg Take 45 mg (REMERON) 06-05 by mouth 45 mg Oral 16:44: 00:00 at Tablet 26 :00 bedtime. traZODone 2018- No 200mg Take 200 (DESYREL) 06-05-20 mg by 100 mg Oral 16:44: 00:00 mouth at Tablet 26 :00 bedtime. gabapentin 2019- No 400mg Q.34809894 Take 400 (NEURONTIN) 06-05- [id number] mg by 400 mg Oral 16:44: 00:00 [...] Tablet 25 :00 sucralfate 2019-0 Yes 1g Q.31533558 Take 1 g (CARAFATE) 06-05 [id number] by mouth 1 gram Oral 16:44: 3D three Tablet 20 times a day. amLODIPine 2019-0 Yes 5mg QD Take 5 mg (NORVASC) 5 20 by mouth mg Oral 16:44: daily. Tablet 20 atenolol Yes 50mg QD Take 50 mg (TENORMIN) 9-20 by mouth 50 mg Oral 16:44: daily. Tablet 20 QUEtiapine 2019- No 800mg Take 800 (SEROQUEL) 06-05 09-20 mg by 400 mg Oral 09:40: 00:00 mouth at Tablet 39 :00 bedtime. gabapentin 2019- No 200mg Q.70906423 Take 2 (NEURONTIN) 06-05- [id number] Caps by 100 mg Oral 00:00: 23:59 3D mouth Capsule 00 :00 three times a day for 30 days. insulin 2018- No 15U Give 15 lispro 06-05 Units (HUMALOG) 00:00: 23:59 subcutaneo 100 unit/mL [...] 2019- No 200mg QD Take 2 (DESYREL) 06-05 Tabs by 100 mg Oral 00:00: 00:00 mouth Tablet 00 :00 every evening for 30 days. nicotine 2019- No 2mg Q1H 1 Each by polacrilex 06-05 Buccal (NICORETTE) 00:00: 00:00 route 2 mg Buccal 00 :00 every 1 Gum hour as needed (smoking cessation) . insulin 2018- 2019- No 12U Give 12 lispro 06-05 09-20 Units (HUMALOG) 00:00: 00:00 subcutaneo 100 unit/mL 00 :00 us Three Subcutaneou Times a s Solution Day With Meals for 30 days. gabapentin 2020- No 200mg Q.50388604 200 mg, (NEURONTIN) 06-04 [id number] Oral, capsule 200 14:00: 13:59 3D THREE [...] all Risk Medication
sucralfate 2019- No 1g Q.43209268 1 g, Oral , (CARAFATE) 05-29 [id number] THREE tablet 1 g 15:20: 13:59 3D [...] Sat05/29/19 at 1520, For 365 days gabapentin 2018- No 400mg Q.63959141 400 mg, (NEURONTIN) 05-29 [id number] Oral, capsule 400 15:20: 08:27 3D THREE [...] HOURS NEEDED, Moderate Pain, Starting Sat05/29/19 at 151, For 30 days
Ma ximum dose is [...] ll Risk Medication
cloNIDine 2019- No .1mg Q.24310906 0.1 mg, (CATAPRES) 05-29 [id number] Oral, tablet 0.1 15:11: 15:10 3D THREE mg 38 :38 TIMES A DAY NEEDED, elevated bp > 160/105 or withdrawal sx. hold for bp <90/50, Starting Sat05/29/19 at 1511, For 365 days
Fa ll Risk Medication . &am p;nbsp;Use for Catapres<b r> haloperidol 2019- No 5mg Q6H 5 mg, (HALDOL) 05-29 Oral, tablet 5 mg 15:11: 15:10 EVERY 6 34 :34 HOURS NEEDED, Agitation, Starting Sat05/29/19 at 1511, For 365 days
Fa ll Risk Medication
insulin 2019- No 10U 10 Units regular 05-29 (0.123 (HumuLIN,No 11:45: 12:00 Units/kg), voLIN) 100 00 :00 Subcutaneo unit/mL us, ONCE, injection Fri 10 Units 05/29/19 at 1145, For 1 dose
Do cument administra tion site.&nbsp ;Med Disposal - [facility]
traZODone 2019- No 200mg QD 200 [...] 37 :10 HOURS NEEDED, Agitation, Anxiety, Starting [facility] 05/28/19 at 1812, For 3 days
Fa ll Risk Medication
Onetouch No TID as verio test 06-04 directed strips 00:00: 00 Amoxicillin 0 Yes General 875MG Q12H /Pot 02-25 Acute Care Clavulanate 00:00: Hospital 00 Carbamide 2017-0 Yes General 5DROP TWO TIMES Peroxide - Acute Care DAILY 00:00: Hospital 00 Fluphenazin Yes General 2.5MG EVERY DAY e Hcl - Acute Care 00:00: Hospital 00 Lamotrigine Yes General 50MG EVERY DAY -12 Acute Care 00:00: Hospital 00 Mirtazapine 2018-0 Yes General 15MG EVERY 6-12 Acute Care NIGHT AT 00:00: Hospital BEDTIME 00 Neomycin/Ba 2017-0 Yes General 1APPLIC TWO TIMES citracin/Po -12 Acute Care DAILY lymyxin 00:00: Hospital 00 Ergocalcife 2017-0 Yes General [id number] Q7D rol 02-25 Acute Care IT 00:00: Hospital 00 Sucralfate 2017-0 Yes General 1GM ONE HOUR 14 Acute Care AC AND HS 00:00: Hospital 00 Pantoprazol 2017-0 Yes General 40MG TWO TIMES e Sodium 01-27 Acute Care DAILY 00:00: Hospital 00 Insulin 2017-0 Yes General 5UNIT THREE Lispro - Acute Care TIMES A 00:00: Hospital DAY 00 Acetaminoph 2017-0 Yes General 650MG EVERY SIX en - Acute Care HOURS 00:00: Hospital NEEDED PRN 00 For Pain Benzoyl 2017-0 No General 42.5GM EVERY Peroxide - Acute Care MORNING 00:00: Hospital 00 Lisinopril 2017-0 Yes General 2.5MG EVERY 01-24 Acute Care MORNING 00:00: Hospital 00 Simvastatin 2017-0 Yes General 20MG EVERY -11 Acute Care EVENING AT 00:00: Hospital 1800 00 insulin 2017-0 Yes 30U Inject 30 Inject 30 glargine 5-10 Units Units (LANTUS) 09:22: under the under the 100 unit/mL 09 skin skin injection daily. daily. gabapentin 2017- Yes 300mg Take 300 Take 300 (NEURONTIN) 5-10 mg by mg by 300 MG 09:10: mouth Two mouth Tw o capsule 31 (2) times (2) time s a day. a day. traZODone 2018-0 Yes 50mg Take 50 mg Take 50 (DESYREL) 5-10 by mouth mg by 100 MG 09:10: nightly. mouth tablet 31 nightly. famotidine 2017- Yes History of 20mg Take 20 m g Take 20 (PEPCID) 20 5-10 myocardial by mouth mg by MG tablet 09:10: infarction daily. [place] th 31 daily. insulin 2017-0 Yes 5U Inject 5 Inject 5 lispro [...] /THERAGRAN) 30 daily. daily. per tablet simvastatin 0 Yes 20mg Take 20 mg Ta ke 20 (ZOCOR) 20 5-10 by mouth mg by MG tablet 09:10: nightly. mouth 30 nightly. acetaminoph 0 Yes 15mg/kg Take 15 Andriy e 15 [...] Mag Yes General 30ML EVERY SIX Hydrox/Al -11 Acute Care HOURS Hydrox/Nelson 00:00: Hospital NEEDED PRN th 00 For ABDOMINAL DISCOMFORT Amlodipine Yes General 10MG EVERY DAY Besylate 12-25 Acute Care 00:00: Hospital 00 Atenolol 0 Yes General 100MG EVERY 4-11 Acute Care MORNING 00:00: Hospital 00 Atorvastati No General 40MG EVERY DAY n Calcium - Acute Care 00:00: Hospital 00 Citalopram Yes General 40MG EVERY DAY Hydrobromid 12-25 Acute Care e 00:00: Hospital 00 Dextrose 2018-0 Yes General 15GM NEEDED -11 Acute Care PRN For 00:00: Hospital Hypoglycem 00 ia Diphenhydra 2017-0 Yes General 25MG EVERY SIX mine Hcl - Acute Care HOURS 00:00: Hospital NEEDED PRN 00 For Anxiety Duloxetine 2017-0 No General 30MG TWO TIMES Hcl - Acute Care DAILY 00:00: Hospital 00 Epinephrine 2017-0 Yes General .3MG NEEDED - Acute Care PRN For 00:00: Hospital allergic 00 reaction Gabapentin 2017-0 Yes General 300MG TWO TIMES -11 Acute Care DAILY 00:00: Hospital 00 Glucagon,Hu 0 Yes General 1MG NEEDED man 12-25 Acute Care PRN For Recombinant 00:00: Hospital Hypoglycem 00 ia Ferrous 0 No General 324MG TWO TIMES Fumarate - Acute Care DAILY 00:00: Hospital 00 Ibuprofen [...] 2017-0 Yes General 50MG AT BEDTIME Hcl - Acute Care NEEDED 00:00: Hospital PRN For 00 Insomnia Ergocalcife 2017-0 No General [id number] Q7D rol - Acute Care IT 00:00: Hospital 00 Famotidine 2017-0 2018- No General 20MG EVERY -01-27 Acute Care NIGHT AT 00:00: 14:00 Hospital BEDTIME 00 :00 Pantoprazol 2017-0 2018- No General 40MG EVERY e Sodium 4-11 05-14 Acute Care MORNING 00:00: 14:02 Hospital 00 :00 pantoprazol 2016-09 Yes 40mg Take 40 mg e 1-14 by mouth (PROTONIX) 00:00: twice a 40 mg Oral 00 day before Tablet, meals. Delayed Release (E.C.) pantoprazol 2016-09 Yes 40mg Take 40 mg Ta ke 40 e 1-14 by mouth. mg by (PROTONIX) 00:00: mouth. 40 MG 00 tablet labetalol 2016-09 2019- No 300mg Q.5D Take [...] NOVOLOG 2019- No INJECT UP FLEXPEN 100 11-24 TO 15 unit/mL 00:00: 00:00 UNITS WITH [...] type I diabetic polyneuropa thy Chronic Chronic 99710203 Active renal renal 06-15 failure, failure, 00:00: stage 3 stage 3 00 (moderate) (moderate) Recurrent Recurrent 27430907 Active Ove rview: major major 06-09 Patient [...] History of Condition Active 2018-01-02 myocardial myocardial -19 10:24:22 infarction infarction 00:00: 00 Depression Depression 35444237 Active with with 06-07 suicidal suicidal 00:00: ideation ideation 00 ALEXA (acute ALEXA (acute Condition Active 2017-05-30 kidney kidney 05-30 19:23:31 injury) injury) 00:00: 00 Anemia Anemia Condition Active 2017-05-3005-30 19:23:42 00:00: 00 Gastroesoph Gastroesoph 74312147 Active ageal ageal 8-17 reflux reflux 00:00: disease disease 00 with with esophagitis esophagitis Opioid use Opioid use 85863456 Active disorder, disorder, 8-17 severe, severe, 00:00: dependence dependence 00 MDD (major MDD (major 68285315 Active depressive depressive 7-28 disorder), disorder), 00:00: severe severe 00 Schizophren Schizophren 98883429 Active ia with ia with 6-07 prominent prominent 00:00: negative negative 00 symptoms symptoms Chronic Chronic 04155583 Active back pain back pain 4-25 00:00: 00 Major Major 40506018 Active Overvie w: depressive depressive 4-10 Se pauline disorder, disorder, 00:00: depr essio recurrent recurrent 00 n episode, episode, increa sin severe, severe, g over with with the last psychosis psychosis few days. Has plan to slit his throat Hypertensio Hypertensio 54892320 Active Overview: n n 7-05 Last 00:00: Assessme n 00 t & Plan : Currentl y poorly controll e d. Continue home medicati o n and ad d PRN hydralaz i ne. 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 and hypertensio hypertensio n n Marijuana Marijuana 20241151 Inactiv use use e Hyperglycem Hyperglycem 90346885 Active ia ia Chronic Chronic 31578965 Active bilateral bilateral low back low back pain with pain with right-sided right-sided sciatica sciatica Marijuana Marijuana 45064284 Active use use Acute ST Acute ST Condition Resolve 2017-0 2018-01-23 elevation elevation d 05-30 00:00:00 myocardial myocardial 00:00: infarction infarction 00 (STEMI) (STEMI) GI bleed GI bleed Condition Resolve 2016-2018-01-23 requiring requiring d 05-30 00:00:00 more than 4 more than 4 00:00: units of units of 00 blood in 24 blood in 24 hours, ICU, hours, ICU, or surgery or surgery Major Major 38111174 Resolve 2017-01-15 2017-01-15 depressive depressive d 00:00:00 09:31:58 disorder disorder with single with single episode episode Severe Severe 44356393 Resolve 2017-01-15 2019-06-15 single single d 00:00:00 06:51:12 current current episode of episode of major major depressive depressive disorder, disorder, with with psychotic psychotic features features Procedures Procedure Date / Time Performed Performing Clinician Johnna carroll GLUCOSE, POC (GLUCOMETER) 2019-06-16 16:18:00 Simms, Natalie Eric sell GLUCOSE, POC (GLUCOMETER) 2019-06-16 11:37:00 Simms, Natalie Eric sell GLUCOSE, POC (GLUCOMETER) 2019-06-16 00:35:00 Simms, [...] Recinos BLOOD EXPOSURE PANEL (PER 2019-06-13 18:12:00 Monserrat, Natalie Eric sell INCIDENT REPORT) GLUCOSE, POC (GLUCOMETER) 2019-06-13 17:09:00 Simms, Natalie Eric sell CREATININE WITH GFR 2019-06-13 [...] 2019-06-06 12:27:26 Boogie Nelson EKGSCAN 2019-06-06 04:00:00 Doctor Micah GLUCOSE, POC (GLUCOMETER) 2019-06-05 22:37:00 Natalie Simms sell GLUCOSE, POC (GLUCOMETER) 2019-06-05 19:38:00 Nelia, Veeraindar GLUCOSE, POC (GLUCOMETER) 2019-06-05 18:59:00 Nelia, Veeraindar GLUCOSE, POC (GLUCOMETER) 2019-06-05 18:07:00 Nelia, Veeraindar GLUCOSE, POC (GLUCOMETER) 2019-06-05 11:35:00 Nelia, Veeraindar GLUCOSE, POC (GLUCOMETER) 2019-06-05 00:21:00 Nelia, Veeraindar GLUCOSE, POC (GLUCOMETER) 2019-06-04 20:35:00 Nelia, Veeraindar GLUCOSE, POC (GLUCOMETER) 2019-06-04 11:17:00 Nelia, Veeraindar GLUCOSE, POC (GLUCOMETER) 2019-06-04 00:09:00 Nelia, Veeraindar GLUCOSE, POC (GLUCOMETER) 2019-06-03 20:39:00 Nelia, Veeraindar GLUCOSE, POC (GLUCOMETER) 2019-06-03 15:37:00 Nelia, Veeraindar GLUCOSE, POC (GLUCOMETER) 2019-06-03 11:02:00 Nelia, Veeraindar GLUCOSE, POC (GLUCOMETER) 2019-06-03 01:12:00 Nelia, Veeraindar GLUCOSE, POC (GLUCOMETER) 2019-06-02 20:46:00 Nelia, Veeraindar GLUCOSE, POC (GLUCOMETER) 2019-06-02 15:35:00 Nelia, Veeraindar GLUCOSE, POC (GLUCOMETER) 2019-06-02 10:45:00 Nelia, Veeraindar GLUCOSE, POC (GLUCOMETER) 2019-06-02 10:41:00 Nelia, Veeraindar GLUCOSE, POC (GLUCOMETER) 2019-06-02 02:21:00 Nelia, Veeraindar GLUCOSE, POC (GLUCOMETER) 2019-06-01 20:36:00 Nelia, Veeraindar GLUCOSE, POC (GLUCOMETER) 2019-06-01 15:45:00 Nelia, Veeraindar GLUCOSE, POC (GLUCOMETER) 2019-06-01 13:06:00 Nelia, Veeraindar GLUCOSE, POC (GLUCOMETER) 2019-06-01 13:04:00 Nelia, Veeraindar GLUCOSE, POC (GLUCOMETER) 2019-06-01 11:37:00 Nelia, Veeraindar GLUCOSE, POC (GLUCOMETER) 2019-05-31 20:37:00 Nelia, Veeraindar GLUCOSE, POC (GLUCOMETER) 2019-05-31 18:15:00 Nelia, Veeraindar GLUCOSE, POC (GLUCOMETER) 2019-05-31 15:26:00 Nelia, Veeraindar GLUCOSE, POC (GLUCOMETER) 2019-05-31 11:29:00 Nelia, Veeraindar HEMOGLOBIN A1C (GLYCOSYLATED) 2019-05-31 10:24:00 Paris Saunders LIPID PANEL 2019-05-31 10:24:00 Mary Saunders RPR PANEL 2019-05-31 10:24:00 Mary Saunders GLUCOSE, POC (GLUCOMETER) 2019-05-31 00:27:00 Nelia, Veeraindar GLUCOSE, POC (GLUCOMETER) 2019-05-30 20:41:00 Nelia, Veeraindar GLUCOSE, POC (GLUCOMETER) 2019-05-30 15:59:00 Nelia, Veeraindar GLUCOSE, POC (GLUCOMETER) 2019-05-30 10:58:00 Nelia, Veeraindar GLUCOSE, POC (GLUCOMETER) 2019-05-30 00:36:00 Nelia, Veeraindar GLUCOSE, POC (GLUCOMETER) 2019-05-29 20:50:00 Nelia, Veeraindar GLUCOSE, POC (GLUCOMETER) 2019-05-29 18:29:00 Nelia, Veeraindar GLUCOSE, POC (GLUCOMETER) 2019-05-29 17:06:[facility] [place] [place], POC (GLUCOMETER) 2019-05-29 15:39:00 [facility] [place] [place] GLUCOSE, POC (GLUCOMETER) 2019-05-28 18:32:00 [facility] o EKG 12 LEAD 2019-05-28 16:00:00 JakeMelvin Yueno COMPREHENSIVE METABOLIC PANEL 2019-05-28 15:49:00 [facility] [place], Ed uardo TSH 2019-05-28 15:49:00 JakeMelvin Yueno ETHANOL 2019-05-28 15:49:00 [facility] CBC WITH DIFF 2019-05-28 15:49:00 [facility] RPR PANEL 2019-05-28 15:49:00 [facility] DRUG SCREEN, URINE 2019-05-28 15:12:00 Jake, Michael EKGSCAN 2019-05-28 04:00:00 Micah Doctor POCT GLUCOSE 2018-02-25 12:47:00 Daron Loera POCT [...] mg/dL 70-100 Lab Interpretation (test code = 59341-1) Abnormal BASIC METABOLIC [id number] 16:56:54 Test Item Value Reference Range Comments BUN (test code = 3094-0) 29 mg/dL 9-21 Sodium (test code = 2951-2) 140 mEq/L 136- 145 mEq/L Potassium (test code = 2823-3) 5.3 mEq/L 3.5- 4.5 mEq/L Chloride (test code = 2075-0) 102 mEq/L 98- 107 mEq/L Bicarbonate (TCO2) (test code = 2027-9) 26 mEq/L 22- 29 m Eq/L Glucose (test code = 2345-7) 172 mg/dL 70-105 Creatinine (test code = 2160-0) 2.14 mg/dL 0.72-1.25 Anion Gap (calc.) (test code = 61795-8) 12 mEq/L 4- 12 mE q/L Calcium (test code = 41772-4) 9.6 mg/dL 8.4-10.2 GFR, non-AA, (est.) (test code = 36 mL/Min/1.73 m2 >59 mL/Min/1. 73 m2 68748-8) GFR, AA, (est.) (test code = 55100-9) 43 mL/Min/1.73 m2 >59 mL/M in/1.73 m2 Lab Interpretation (test code = Abnormal 95548-1) BLOOD EXPOSURE PANEL (PER INCIDENT REPORT)2019-06-13 15:05:47 Test Item Value Reference Range Comments Hepatitis B Virus Surface Ag NEG NEG^NEG (test code = 7905-3) Hepatitis B Virus Surface Ab NEG (test code = 66067-6) Hepatitis B Virus Core Ab, Total NEG NEG^NEG (test code = 89851-8) Hepatitis C Virus Ab (test code NEG NEG^NEG = 04171-0) HIV Ag/Yasmin Combo. (test code = NEG NEG^NEG T est performed by [employer] 58139-2) Vehicle Mechanic HIV Ag /Ab Combo assay. CREATININE WITH [id number] 13:35:22 Test Item Value Reference Range Comments Creatinine (test code = 2160-0) 2.01 mg/dL 0.72-1.25 GFR, non-AA, (est.) (test code = 38 mL/Min/1.73 m2 >59 mL/Min/1. 73 m2 27222-7) GFR, AA, (est.) (test code = 71918-0) 46 mL/Min/1.73 m2 >59 mL/M in/1.73 m2 Lab Interpretation (test code = Abnormal 24227-7) VASCULAR ACCESS TEAM US GUIDED MIDLINE IV [id number] 19:16:35A midline was placed by the Vascular [...] estimated average 226 mg/dL (test code = 44732-0) Lab Interpretation (test code = Abnormal 85389-3) [id number] 06:52:00 Test Item Value Reference Range Comments TSH (test code = 22584-7) 1.71 uIU/mL 0.35- 4.94 uIU/mL VITAMIN [id number] 06:52:00 Test Item Value Reference Range Comments Vitamin B12 (test code = 2132-9) 539 pg/mL 213-816 SYPHILIS [id number] 06:38:01 Test Item Value Reference Range Comments Syphilis Antibodies (test NONREACTIVE NR^NONREACTIVE Negati ve for antibodies to code = 43811-8) Treponema pallid um, the causitive agent of Syphilis. COMPREHENSIVE METABOLIC [id number] 06:30:59 Test Item Value Reference Range Comments Sodium (test code = 2951-2) 141 mEq/L 136- 145 mEq/L Potassium (test code = 2823-3) 3.7 mEq/L 3.5- 4.5 mEq/L Chloride (test code = 2075-0) 101 mEq/L 98- 107 mEq/L Bicarbonate (TCO2) (test code = 2027-9) 30 mEq/L 22- 29 m Eq/L Calcium (test code = 44101-8) 9.3 mg/dL 8.4-10.2 Glucose (test code = [...] 0.72-1.25 Anion Gap (calc.) (test code = 54908-0) 10 mEq/L 4- 12 mE q/L ALT (SGPT) (test code = 1742-6) 27 U/L <55 GFR, non-AA, (est.) (test code = 40 mL/Min/1.73 m2 >59 mL/Min/1. 73 m2 18001-9) GFR, AA, (est.) (test code = 68857-4) 48 mL/Min/1.73 m2 >59 mL/M in/1.73 m2 Lab Interpretation (test code = Abnormal 31148-6) LIPID [id number] 06:30:20 Test Item Value Reference Range Comments [...] code = 183 mg/dL RE FERENCE RANGES: 75686-8) OPTIMAL: <100 m g/dL NEAR OR ABOVE OPTIMAL : 100-129 mg/dL BORD CRISTIANE HIGH: 130-159 mg /dL HIGH: 160- 189 mg/dL AMARIS Y HIGH: >=190 mg /dL Lab Interpretation (test code = Abnormal 51041-8) CBC WITH [id number] 06:02:17 Test Item Value Reference Range Comments [...] k/uL Mean Platelet Volume (test code = 52848-1) 10.2 fL 7.4-1 0.6 Differential Type (test code = 894485) AUTOMATED Neutrophil (%) (test code = 22584-0) 53 % Lymphocyte (%) (test code = 736-9) 36 % Monocyte (%) (test code = 5905-5) 7 % Eosinophil (%) (test code = 713-8) 2 % Basophil (%) (test code = 706-2) 1 % Immature Granulocytes (%) (test code = 96839-1) 1 % Neutrophil (#) (test code = 68330-1) 4.41 k/uL 1.8- 7.7 k/ uL Lymphocyte (#) (test code = 731-0) 2.98 k/uL 1.0- 4.8 k/uL Monocyte (#) (test code = 742-7) 0.62 k/uL 0.0- 0.8 k/uL Eosinophil (#) (test code = 960062) 0.19 k/uL 0.0- 0.5 k/u L Basophil (#) (test code = 704-7) 0.09 k/uL 0.0- 0.2 k/uL Immature Granulocytes (#) (test code = 94927-3) 0.04 k/uL 0 k/uL Lab Interpretation (test code = 69547-2) Abnormal EKG 12 [id number] 12:43:00 Test Item Value Reference Range Comments EKG Text (test code = [facility] [id number][facility] ECG -Sinus rhythmnormal P axis, V-rate 60-99Borderline T abnormalities, lateral leadsT flat/neg, I aVL V5 V6ST elevation, consider anterior injuryST >0.15mV, V1-J3Ltwswhsidks rate decreaserate less than previous (>20 bpm)When compared with ECG of 28-May-2019 12:00:48,Change in interpretation without significant change in waveformReading PhysicianSSourav 19078 Heart Rate (test code = 74 BPM BPM 963640) P [place] (test code = 53 degrees degrees 147695) I-40 [place] (test code = -2 degrees degrees 399434) T-40 [place] (test code = 67 degrees degrees 244239) QRS [place] (test code = 57 degrees degrees 755504) ST [place] (test code = 26 degrees degrees 796761) T Wave [place] (test code = -4 degrees degrees 782608) XRAY CHEST 2 [id number] 08:35:00Findings/Impression: 1.No acute osseous abnormality.2.Pleural spaces are [...] mg/dL 70-100 Lab Interpretation (test code = 46455-5) Abnormal RPR [id number] 14:05:42 Test Item Value Reference Range Comments RPR (test code = 19468-6) NONREACTIVE NR^NONREACTIVE RPR TITER (test code = 74289-8) NOT APPLICABLE TITER LIPID [id number] 07:02:50 Test Item Value Reference Range Comments Cholesterol, Total (test code = 211 mg/dL 618-518 2907-3) Triglycerides (test code = 102 mg/dL 35-150 2571-8) Cholesterol, HDL (test code = 56 mg/dL 40-59 2085-9) Cholesterol, LDL (test code = 135 mg/dL 0-129 92167-3) Cholesterol, Total/HDL (test 3.8 mg/dL NO NORMAL RANGES ESTABLISHED code = 9830-1) Lab Interpretation (test code = Abnormal 90429-9) HEMOGLOBIN A1C (GLYCOSYLATED)2019-05-31 06:58:08 Test Item Value Reference Range Comments Hemoglobin A1c (test code = 4548-4) 8.9 % 4.5-6.2 Lab Interpretation (test code = 40714-9) Abnormal EKG 12 [id number] 22:29:00 Test Item Value Reference Range Comments EKG Text (test code = [facility] [id number]) [facility]- ABNORMAL ECG -Sinus rhythmnormal P axis, V-rate 50-99Probable left atrial enlargementP >50mS, <-0.10mV [id number] T abnormalities, inferiorand anterolateral leadsReading [facility] [address] Heart Rate (test code = 96 BPM BPM [id number]) P [place] (test code = 52 degrees degrees 386224) I-40 [place] (test code = -81 degrees degrees 989854) T-40 [place] (test code = 49 degrees degrees 952264) QRS [place] (test code = 46 degrees degrees 183773) ST [place] (test code = 60 degrees degrees 075044) T Wave [place] (test code = -50 degrees degrees 607274) COMPREHENSIVE METABOLIC [id number] 12:54:23 Test Item Value Reference Range Comments Sodium (test code = 2951-2) 137 mEq/L 136- 145 mEq/L Potassium (test code = 2823-3) 3.6 mEq/L 3.5- 5.1 mEq/L Chloride (test code = 2075-0) 102 mEq/L 98- 107 mEq/L Bicarbonate (TCO2) (test code = 2027-9) 30 mEq/L 21- 32 m Eq/L Calcium (test code = 04898-8) 8.7 mg/dL 8.5-10.1 Glucose (test code = [...] 0.55-1.3 Anion Gap (calc.) (test code = 13267-5) 5 mEq/L 5- 15 mE q/L ALT (SGPT) (test code = 1742-6) 12 U/L 12-78 BUN/Creatinine (test code = 3097-3) 5.6 mg/dL Osmolality (calc) (test code = 03134-4) 277 mOsmol/kg 273- 304 mOsmol/kg Globulin (calc.) (test code = 55465-8) 4.0 g/dL Albumin / Globulin (test code = 1759-0) 0.78 GFR, non-AA, (est.) (test code = 59 mL/Min/1.73 m2 >59 mL/Min/1. 73 m2 31959-5) GFR, AA, (est.) (test code = 69654-2) >59 >59 mL/Min /1.73 m2 Lab Interpretation (test code = Abnormal 78044-5) [id number] 12:54:23 Test Item Value Reference Range Comments TSH (test code = 69778-4) 1.66 uIU/mL 0.358- 3.740 uIU/mL [id number] 12:54:23 Test Item Value Reference Range Comments Ethanol (test code = 5643-2) <3 0-10 DRUG SCREEN, [id number] 12:43:26 Test Item Value Reference Range Comments Barbiturates, urine (test code = 49030-7) NEG NEG^NE G Benzodiazepines, urine (test code = 83242-3) POS NEG ^NEG Cocaine, urine (test code = 19005-0) NEG NEG^NEG Opiates, urine (test code = 23530-3) NEG NEG^NEG Amphetamines, urine (test code = 34210-3) NEG NEG^NE G Cannabinoids (test code = 19958-0) NEG NEG^NEG Phencyclidine (PCP), urine (test code = 37594-6) NEG NEG^NEG Lab Interpretation (test code = 79929-7) Abnormal CBC WITH [id number] 12:24:24 Test Item Value Reference Range Comments [...] k/uL Mean Platelet Volume (test code = 34086-4) 10.8 fL 7.4-1 0.4 Neutrophil (%) (test code = 77674-8) 79 % 34-74 Eosinophil (%) (test code = 713-8) 1 % 0-3 Basophil (%) (test code = 706-2) 1 % 0-1 Monocyte (%) (test code = 5905-5) 4 % 3.5-12 Lymphocyte (%) (test code = 736-9) 15 % 21-46 Immature Granulocytes (%) (test code = 12650-0) 0 % Neutrophil (#) (test code = 34961-4) 6.49 k/uL 1.5- 6.2 k/ uL Lymphocyte (#) (test code = 731-0) 1.25 k/uL 1.3- 2.9 k/uL Monocyte (#) (test code = 742-7) 0.35 k/uL 0.1- 0.6 k/uL Eosinophil (#) (test code = 711-2) 0.06 k/uL 0.0- 0.5 k/uL Basophil (#) (test code = 704-7) 0.05 k/uL 0.0- 0.1 k/uL Immature Granulocytes (#) (test code = 64171-8) 0.00 k/uL k/uL Lab Interpretation (test code = 61837-3) Abnormal COMPREHENSIVE [id number] 00:00:00 Test Item Value Reference Range Comments [...] (test code = GLOMERULARFILT.RATE) 63 >60 FREE [id number] 00:00:00 Test Item Value Reference Range Comments FREET4 (test code = FREET4) 0.73 0.61-1.12 PDF (test code = PDF) LAB LIPID [id number] 00:00:00 Test Item Value Reference Range Comments [...] code = NON-HDLCHOLESTEROL) 193 0-159 TSH 3RD [id number] 00:00:00 Test Item Value Reference Range Comments AAM0DGTGTFUSLCWB (test code = IMT7MECWQMVGUSXL) 0.055 0.340-4.410 URIC [id number] 00:00:00 Test Item Value Reference Range Comments URICACID (test code = URICACID) 4.2 4.4-7.6 Lab - Bedside Glucose (Misc Panel)2018-02-25 12:47:00 Test Item Value Reference Range Comments Bedside Glucose (Misc Panel) 92.0 mg/dL 70-110 Met er ID: [id number] (test code = Bedside Glucose Ope rator: 849373 (Misc Panel)) POCT [id number] 12:47:00 Test Item Value Reference Range Comments Glucose-POC (test code = Glucose-POC) 92 mg/dL 70- 110 mg /dL POCT [id number] 10:54:00 Test Item Value Reference Range Comments Glucose-POC (test code = Glucose-POC) 101 mg/dL 70- 110 mg /dL #[id number] 15:36:00Echocardiogram W Colorflow Spectral Doppler (02/03/2018 4:03 PM EDT)SpecimenNarrativePerformed At Transthoracic Echo Report [facility], [address] [place] [address] LENA SCHULZ Exam Date: 02/03/2018 15:36 Ordering Physician: WILLARD SINGH) Age: 32Gender: M Exam Location: [facility] Referring Physician: WILLARD SINGH (sonido) : 1985 Ht (in): 73 Wt (lb): 213 Reading Physician: Willard Singh MD Gaming Table Operator: ELIN Hernandez, RVS Procedure CPT: 93025 Indications: CP, history of [place]-, History of myocardial infarction,Chest pain, unspecified type, [...] Peak Velocity 102.0 cm/s Mitral A Point Lfelqqmb67.6 cm/s AV Peak Gradient 4.2 mmHg Mitral E to A Ratio0.8 AV Mean Gradient 2.0 mmHg MV Deceleration Time 264.0 ms AV Velocity Time Otkajgqa86.9 cmLV E' Septal Velocity4.8 cm/s LVOT Peak Velocity 67.7 cm/sMitral E to LV E' Septal 12.2 LVOT Peak Gradient 1.8 mmHg TR Peak Velocity 209.0 cm/s LVOT Velocity Time Lsiudo10.7 cmTR Peak Gradient 17.5 mmHg AV Area Cont Eq vti2.6 cm Right Atrial Pressure3.0 mmHg AV Area Cont Eq pk 2.3 cmPulmonary Artery Citmyioe59.5 mmHg Mitral E Point Ywbkzlzs92.2 cm/sRight Ventricular Hxbzeqh67.5 mmHg Willard Singh MD (Electronically Signed) Final Date: 04 Feb 2018 08:53EM RADProcedure NoteInterface, Rad Results In - 02/04/2018 8:54 AM EDT Transthoracic Echo Report [address], [place] [address] LENA SCHULZ Exam Date: 02/03/2018 15:36 Ordering Physician: WILLARD SINGH ([facility]) Age: 32 Gender: M Exam Location: [facility] Referring Physician: WILLARD [facility] : 1985 Ht (in): 73 Wt (lb): 213 Reading Physician: Willard Singh MD Gaming Table Operator: ELIN Hernandez, RVS Procedure CPT: 26106 Indications: CP, history of [place]-, History of myocardial infarction, Chest pain, unspecified [...] Final Date: 04 Feb 2018 08:53Performing OrganizationAddressCity/State/ZipcodePhone NumberIN[facility] [id number] [facility], [place] [address]Tbn - Helicobacter pylori Urease [id number] 13:18:00 Test Item Value Reference Range Comments Helicobacter pylori Urease Test (test code = Negative 53489-6) Lab - Bedside Glucose (Misc Panel)2018-01-27 12:30:00 Test Item Value Reference Range Comments Bedside Glucose (Misc Panel) 128.0 mg/dL 70-110 Met er ID: [id number] (test code = Bedside Glucose Ope rator: 250049 (Misc Panel)) Lab - [id number] 14:09:00 Test Item Value Reference Range Comments Lipase (test code = 3040-3) 28 U/L 22-51 Lab - Troponin [id number] 14:09:00 Test Item Value Reference Range Comments Troponin I (test code = 52857-7) < 0.03 ng/mL 0.00-0.49 Lab - Total [id number] 14:09:00 Test Item Value Reference Range Comments Total Protein (test code = 2885-2) 7.3 g/dL 6.1-8.0 Lab - Total Creatine Hcebrs2751-21-73 14:09:00 Test Item Value Reference Range Comments Total Creatine Kinase (test code = 2157-6) 72 U/L 22-26 9 Lab - Total [id number] 14:09:00 Test Item Value Reference Range Comments Total Bilirubin (test code = 0.35 mg/dL 0.30-1.20 [address]es taken from patients 1975-2) who have taken N aproxen have shown spurious e levation in Total Bilirubin levels. A metabolite of Na proxen (O-Desmethylnapr oxen) has been shown to in terfere with the Guillermina-Jaron galan method for measuring To christiano Bilirubin. Lab - Sodium Gycmi8750-14-15 14:09:00 Test Item Value Reference Range Comments Sodium Level (test code = 2951-2) 138 mmol/L 135-153 Lab - Potassium Uykeu9913-13-19 14:09:00 Test Item Value Reference Range Comments Potassium Level (test code = 2823-3) 4.2 mmol/L 3.5-5.3 Lab - Glucose Yhtes8801-14-71 14:09:00 Test Item Value Reference Range Comments Glucose Level (test code = 2345-7) 81 mg/dL 70-110 Lab - Cswccrli7160-31-23 14:09:00 Test Item Value Reference Range Comments Globulin (test code = 05285-7) 3.4 g/dL 2.3-3.5 Lab - Estimated GFR (MDRD)2017-12-25 14:09:00 Test Item Value Reference Range Comments Estimated GFR (MDRD) (test code > 60 60-100 eGFR by MDRD equation. Units = 31526-5) mL/min./1.73m sq . Less than 60 suggests signifi cant renal disease. Lab - Estimated Creatinine Clearance Zsse6618-18-23 14:09:00 Test Item Value Reference Range Comments Estimated Creatinine 74.2 ML/MIN >60 Estimated c reatinine Clearance Calc (test code = luis megha calculated by Estimated Creatinine Cockcroft-G deisy method. Clearance Calc) Lab - Fsmcmydzan6268-09-49 14:09:00 Test Item Value Reference Range Comments Creatinine (test code = 2160-0) 1.6 mg/dL 0.5-1.2 Lab - Creatine Kinase MB Relative Wunev6873-11-14 14:09:00 Test Item Value Reference Range Comments Creatine Kinase MB Relative 1.9 0.0-2.5 CK I ndex should not be used for Index (test code = Creatine inte rpretation when the total CK Kinase MB Relative Index) activi ty remains within the Reference Interv al due to the potential of fal sely elevated values. Lab - Creatine Kinase [id number] 14:09:00 Test Item Value Reference Range Comments Creatine Kinase MB (test code = Creatine Kinase 1.34 ng/mL 0.6-6.3 MB) Lab - Chloride [id number] 14:09:00 Test Item Value Reference Range Comments Chloride Level (test code = 2075-0) 101 mmol/L 96-112 Lab - Carbon Dioxide Entri0923-13-87 14:09:00 Test Item Value Reference Range Comments Carbon Dioxide Level (test code = 8-9) 31 mmol/L 23-33 Lab - Calculated Zwhheuncvi9669-10-76 14:09:00 Test Item Value Reference Range Comments Calculated Osmolality (test code = Calculated 276 26 6-308 Osmolality) Lab - Calcium Dgfel9552-16-79 14:09:00 Test Item Value Reference Range Comments Calcium Level (test code = 45086-9) 9.2 mg/dL 8.7-10.7 Lab - Blood Urea Hwtfkpjd5198-88-61 14:09:00 Test Item Value Reference Range Comments Blood Urea Nitrogen (test code = 3094-0) 17 mg/dL 7-22 Lab - BUN/Creatinine Wmrxc9664-36-60 14:09:00 Test Item Value Reference Range Comments BUN/Creatinine Ratio (test code = 3097-3) 11 15-24 Lab - Aspartate Amino Transf (AST/SGOT)2017-12-25 14:09:00 Test Item Value Reference Range Comments Aspartate Amino Transf (AST/SGOT) (test code = 17 U/L 1 2-45 55770-8) Lab - Anion Mjp2791-74-90 14:09:00 Test Item Value Reference Range Comments Anion Gap (test code = 64433-0) 6 mmol/L 5-15 Lab - Alkaline Rcptgopzfom5695-54-02 14:09:00 Test Item Value Reference Range Comments Alkaline Phosphatase (test code = 6768-6) 71 U/L 37-107 Lab - Albumin/Globulin Tnuvx7168-31-37 14:09:00 Test Item Value Reference Range Comments Albumin/Globulin Ratio (test code = 1759-0) 1.1 1.1- 1.8 Lab - Cymhvbq3395-02-63 14:09:00 Test Item Value Reference Range Comments Albumin (test code = 1751-7) 3.9 g/dL 3.5-5.2 Lab - Alanine Aminotransferase (ALT/SGPT)2017-12-25 14:09:00 Test Item Value Reference Range Comments Alanine Aminotransferase (ALT/SGPT) (test code = 17 U/L 40 1743-4) Lab - White Blood Xkjlv7687-28-64 14:09:00 Test Item Value Reference Range Comments White Blood Count (test code = 32140-3) 7.4 K/mm3 4.5-13.0 Lab - Red Cell Distribution Yaxhe6112-01-20 14:09:00 Test Item Value Reference Range Comments Red Cell Distribution Width (test code = 788-0) 20.7 % 11.0-15.0 Lab - Red Blood Gonhq0635-97-76 14:09:00 Test Item Value Reference Range Comments Red Blood Count (test code = 789-8) 4.78 M/mm3 3.10-5.80 Lab - Platelet Vgdtx2508-02-49 14:09:00 Test Item Value Reference Range Comments [...] Comments Monocytes # (Auto) (test code = PSW1025) 0.5 K/mm3 0-0.9 Lab - Mean Platelet Ipqqcb7400-80-05 14:09:00 Test Item Value Reference Range Comments Mean Platelet Volume (test code = 04741-7) 8.6 fL 6.0-9 .5 Lab - Mean Corpuscular Xjlftt6672-04-45 14:09:00 Test Item Value Reference Range Comments Mean Corpuscular Volume (test code = 787-2) 79.7 fL 78-1 00 Lab - Mean Corpuscular Hemoglobin Weyopnt8714-44-14 14:09:00 Test Item Value Reference Range Comments Mean Corpuscular Hemoglobin Concent (test code = 32.5 g/dl 31-36 786-4) Lab - Mean Corpuscular Fwtqphcaly7304-58-24 14:09:00 Test Item Value Reference Range Comments [...] = 731-0) 1.8 K/mm3 1.2-5.2 Lab - Pthvnfvbbh6595-34-01 14:09:00 Test Item Value Reference Range Comments Hemoglobin (test code = 718-7) 12.4 G/DL 12.0-16.9 Lab - Etoboqoxrp6809-92-54 14:09:00 Test Item Value Reference Range Comments [...] Comments Basophils (%) (Auto) (test code = 65554-9) 1.3 % 0-3.0 Lab - Basophils # [...] Type Clinicians Facility Department 2017-05-30 Inpatient ER [facility] [id number] 07:31:24 [id number] 2017-05-29 Inpatient ER [facility] [id number] 00:00:00 WILMER [id number] 2020-05-13 2020-05-13 [id number] 00:00:00 00:00:00 PA PA 2020-03-14 2020-03-14 [facility] 33 [id number] 00:00:00 00:00:00 PA PA 2020-02-27 2020-02-28 E 1 [facility] [id number] 23:34:11 06:59:00 Hui Barrientos 2020-02-11 2020-02-11 [facility] [place] [id number] 00:00:00 00:00:00 PA 2020-01-27 2020-01-27 [facility] [...] PA 2019-10-08 2019-10-09 E 1 [facility] 2 [id number] 15:43:35 02:44:00 Alfred Romero 2019-09-23 2019-09-23 Outpatient EL [facility] [id number] 00:00:00 00:00:00 [id number] 2019-06-05 2019-06-16 Inpatient U SIMMS, [facility] [id number] 18:15:00 16:41:00 NATALIE 2019-06-05 2019-06-16 Inpatient [facility] [id number] 18:15:00 16:41:00 2019-05-28 2019-06-05 Inpatient X NELIA, [facility] [id number] 11:09:25 16:30:00 VEMARISOL 2019-05-28 2019-06-05 Inpatient [facility] [id number] 11:09:25 16:30:00 2019-05-01 2019-05-01 [facility] [id number] 00:00:00 00:00:00 PA PA 2019-03-31 2019-03-31 [facility] 30 [id number] 00:00:00 00:00:00 PA PA 2019-02-19 2019-02-19 [facility] [id number] 00:00:00 00:00:00 PA 2018-11-20 2018-11-20 [facility] [id number] 00:00:00 00:00:00 PA PA 2018-11-04 2018-11-04 [facility] [id number] 00:00:00 00:00:00 PA PA 2018-06-09 2018-06-09 [facility] [id number] 00:00:00 00:00:00 2018-05-20 2018-05-20 [facility] 26 [id number] 00:00:00 00:00:00 PA PA 2018-05-16 2018-05-16 [facility] [id number] 00:00:00 00:00:00 PA PA 2018-05-12 2018-05-12 [facility] [id number] 00:00:00 00:00:00 PA PA 2018-05-12 2018-05-12 [facility] [id number] 00:00:00 00:00:00 PA PA 2018-04-28 2018-04-28 Outpatient [facility] [id number] 00:00:00 23:59:00 [id number] 2018-04-09 2018-04-09 [facility] [id number] 00:00:00 00:00:00 2018-04-01 2018-04-01 [facility] [id number] 00:00:00 00:00:00 2018-03-18 2018-03-18 Outpatient [facility] [id number] 00:00:00 00:00:00 [id number] 2018-02-27 2018-02-27 [facility] [id number] 00:00:00 00:00:00 2018-02-25 2018-02-25 Outpatient VERONA Loera VERONA [id number] 10:13:00 14:26:00 Daron 2018-02-25 2018-02-25 Outpatient [facility] [id number] 14:00:45 14:00:51 [id number] 2018-02-25 2018-02-25 Outpatient [facility] [id number] 09:18:38 09:18:49 [id number] 2018-02-25 2018-02-25 Outpatient [facility] [id number] 00:00:00 00:00:00 [id number] 2018-02-25 2018-02-25 [facility]patient [facility] [id number] 00:00:00 00:00:00 2018-02-25 2018-02-25 [facility]patient [facility] [id number] 00:00:00 00:00:00 2018-02-18 2018-02-18 Outpatient [facility] [id number] 00:00:00 00:00:00 [id number] 2018-02-03 2018-02-04 [facility] [id number] 15:30:03 23:59:00 2018-01-27 2018-01-27 Outpatient UR VERONA Loera [id number] 11:43:00 14:29:00 Daron 2018-01-27 2018-01-27 Outpatient [facility] [id number] 13:59:55 14:00:02 [id number] 2018-01-27 2018-01-27 Outpatient [facility] [id number] 09:56:03 09:56:13 [id number] 2018-01-27 2018-01-27 Outpatient [facility] [id number] 00:00:00 00:00:00 [id number] 2018-01-24 2018-01-24 [facility] [id number] 00:00:00 00:00:00 2018-01-23 2018-01-23 Outpatient [facility] [id number] 08:52:53 09:50:25 [id number] 2018-01-23 2018-01-23 Outpatient [facility] [id number] 00:00:00 00:00:00 [id number] 2018-01-15 2018-01-15 Outpatient [facility] [id number] 09:08:21 09:46:40 [id number] 2018-01-15 2018-01-15 Outpatient [facility] [id number] 00:00:00 00:00:00 [id number] 2018-01-10 2018-01-10 Outpatient RYANN VERONA Marks [id number] 08:30:00 08:30:00 Jonatan 2018-01-08 2018-01-08 Outpatient [facility] [id number] 09:21:22 10:20:30 [id number] 2018-01-08 2018-01-08 Outpatient [facility] [id number] 00:00:00 00:00:00 [id number] 2018-01-02 2018-01-02 Outpatient [facility] [place] [id number] 09:25:54 10:31:35 [id number] 2017-12-25 2017-12-25 Outpatient ER VERONA Chavez [id number] 13:49:00 17:55:00 vchintan 2017-12-25 2017-12-25 [facility] [id number] 00:00:00 00:00:00 2017-05-29 2017-06-04 Inpatient [facility] [id number] 18:04:00 12:28:00 WILMER [id number] Payers Payer Name Policy Policy Number Effective Expiration Type Date Date MEDICAID [place] [employer] [id number] 2017 00:00:00 TRILLIUM [id number] TRILLIUMTRILLIUMxxxxxxxxxxEffective xxxxxxxxxx for all datesOTHER MANAGED Plan of Treatment Planned Activity Planned Date [...] ents cannot be sent through Care Everywhere.Depression (SINGAPOREAN)D epression Affects Your Mind and Body (SINGAPOREAN)Depression: Tips to Hel p Yourself (SINGAPOREAN) Social History Social Habit Start Date Stop Date Comments Cigarettes smoked current (pack per 2019-06-15 00:00:00 00:00:00 day) - Reported Cigarette pack-years 2019-06-15 00:00:00 2019-06-15 00:00:00 Alcohol intake 2019-06-15 00:00:00 2019-06-15 00:00:00 Tobacco Comment 2019-05-29 00:00:00 2019-05-29 00:00:00 Alcohol Comment 2019-05-29 00:00:00 2019-05-29 00:00:00 Tobacco smoking status KYIS 2018-01-23 00:00:00 2018-01-23 00:00 :00 Smoking Status [...] by 2019-05-29 14:35:00 100 % Pulse oximetry Heart Rate 2018-02-25 14:00:00 75 /min Respiratory Rate 2018-02-25 14:00:00 16 /min O2 % BldC Oximetry 2018-02-25 14:00:00 97 % SYSTOLIC BLOOD PRESSURE 2018-02-25 14:00:00 132 mm[Hg] DIASTOLIC BLOOD PRESSURE 2018-02-25 14:00:00 91 mm[Hg] Body Temperature 2018-02-25 11:28:00 97.6 [degF] Weight Measured 2018-02-25 10:46:00 212 HEIGHT 2018-02-25 10:46:00 185.4 cm WEIGHT 2018-02-25 10:46:00 96.3 kg Heart Rate 2018-01-27 14:06:00 74 /min Respiratory Rate 2018-01-27 14:06:00 16 /min O2 % BldC Oximetry 2018-01-27 14:06:00 100 % SYSTOLIC BLOOD PRESSURE 2018-01-27 14:06:00 134 mm[Hg] DIASTOLIC BLOOD PRESSURE 2018-01-27 14:06:00 90 mm[Hg] Body Temperature 2018-01-27 13:56:00 98.2 [degF] Weight Measured 2018-01-27 12:14:00 205 HEIGHT 2018-01-27 12:14:00 185.4 cm WEIGHT 2018-01-27 12:14:00 93.3 kg Heart Rate 2017-12-25 17:09:00 77 /min Respiratory Rate 2017-12-25 17:09:00 16 /min O2 % BldC Oximetry 2017-12-25 17:09:00 97 % SYSTOLIC BLOOD PRESSURE 2017-12-25 17:09:00 144 mm[Hg] DIASTOLIC BLOOD PRESSURE 2017-12-25 17:09:00 98 mm[Hg] Weight Measured 2017-12-25 13:51:00 206.00 [lb_av] Body Temperature 2017-12-25 13:51:00 96.5 [degF] BMI (Body Mass Index) 2017-12-25 13:51:00 27.1 kg/m2 HEIGHT 2017-12-25 13:51:00 185.4 cm WEIGHT 2017-12-25 13:51:00 93.44 kg Hospital Discharge Instructions AttachmentsThe following attachments cannot be sent through Care Everywhere.Depression (SINGAPOREAN)Depression Affects Your Mind and Body (SINGAPOREAN)Depression: Tips to Help Yourself (SINGAPOREAN)documented in this encounter Additional Discharge Instructions Resume your omeprazole 40 mg once daily when you return to [facility]. Continue diet as tolerated. Avoid foods that you know may cause your symptoms. Not lay flatwithin 1-2 hours of eating. Follow-up with the provider at [place] when you return to discuss today'svisit and to see if any further workup or management is indicated. Her to the emergency department immediately should signs and symptoms of worsening state arise as discussed in visit. Instruction/Education Provided Chest Pain (ED) Gastroesophageal Reflux Disease (ED)
== END 2020-07-27 13:01 | disposition home or self-care (01) ==
LOC: ER 07:39
DX: E10.65 Type 1 diabetes mellitus with hyperglycemia (principal); K22.2 Esophageal obstruction; I10 Essential (primary) hypertension; Z79.4 Long term (current) use of insulin; Z79.899 Other long term (current) drug therapy; F17.200 Nicotine dependence, unspecified, uncomplicated
CPT/HCPCS: 99284; 96361; 96374; 36415; 82962; 87070; 81001; 82803; J1815; J7030